=== PATIENT | male | born 1965 | race Caucasian/White ===

== ENCOUNTER 2024-04-28 13:58 | Emergency (ER) | payer OTHER, SELFPAY ==
[2024-04-28] VITALS (10 sets, daily range): BP systolic 128–147; BP diastolic 69–83; PULSE 62–94; RESP 14–23; TEMP 36.3–37.6; O2SAT 92–98; BMI 19.9
[2024-04-28 14:50] LABS: Absolute Neutrophil Count 21.3 X10^3/uL (2.0-7.7); Basophil# 0.08 X10^3/uL; Basophil% 0.3 % (0-1); Eosinophil# 0.01 X10^3/uL; Hematocrit 28.3 % (40-54); Hemoglobin 9.5 g/dL (13.0-16.5); Lymphocyte % 3.4 % (19-41); Mean Corp Hgb Conc 33.6 g/dL (32-36); Mean Corpuscular Hgb 29.7 pg (27.0-32.0); Mean Corpuscular Volume 88.4 fL (80-94); Mean Platelet Vol. 8.7 fl (6.2-12.0); Monocyte# 1.27 X10^3/uL; Monocyte% 5.3 % (0-10); NRBC Flagged by Analyzer 0 % (0-5); Neutrophil # 21.32 X10^3/uL (2.7-7.7); Neutrophil % 89.6 % (47-70); POSITIVE DIFFERENTIAL YES; Platelet Count 315 K/mm3 (150-450); RBC Distribution Width SD 45.8 fl (35.1-43.9); White Blood Count 23.8 K/mm3 (4.4-11.0)
[2024-04-28 15:09] LABS: ALB/GLOB Ratio 0.5 RATIO (0.9-2.4); AST(SGOT) 119 U/L (15-37); Alanine Aminotransfer ALT/SGPT 81 U/L (16-61); Albumin, Serum 2.1 g/dL (3.2-5.0); Alkaline Phosphatase 121 U/L (45-117); Anion Gap 6 (5-15); BUN 13 mg/dL (7-18); BUN/Creat Ratio 18.5 RATIO (10-20); Calcium,Total 8.1 mg/dL (8.5-10.1); Chloride 97 mmol/L (98-107); EST Glomerular Filtration Rate 123 mL/min (>60); Est Glom Filt Rate - Afr Amer 149 mL/min (>60); Estimated Creatinine Clearance 96.81 ml/min; Globulin 4.1 g/dL (2.2-4.2); Glucose 119 mg/dL (74-106); Potassium 2.5 mmol/L (3.5-5.1); Protein, Total 6.2 g/dL (6.4-8.2); Sodium Level 137 mmol/L (136-145)
--- NOTE | 2024-04-28 15:29 | CT_ITS ---
STUDY: CT ABDOMEN AND PELVIS WITH CONTRAST REASON FOR EXAM: Male, 58 years old. Recent colon diagnosis. One month post colostomy in [place]. The incision the haste with purulent drainage. Elevated white cell count. RADIATION DOSAGE (If Supplied By Facility): CTDIvol = ( 9.71 ) mGy, DLP = ( 517.96 ) mGycm TECHNIQUE: Transaxial images were obtained from the dome of the diaphragm to the symphysis pubis without oral contrast. IV 100mL Isovue-300 was administered. Sagittal and coronal images were reconstructed. Individualized dose optimization techniques were used for this CT. COMPARISON: None. FINDINGS: Increased markings at the lung bases suggestive of bibasilar atelectasis. Tiny left pleural effusion. Coronary artery calcification. Normal liver. The gallbladder is contracted. Small amount of pericholecystic fluid. Normal spleen. Normal pancreas. Normal bilateral adrenal glands. Moderate degree of bilateral hydronephrosis. Normal visualized stomach. Normal small intestine. There is a 7.9 cm x 4.9 cm fluid collection with no fluid level in the right infrahepatic region. This most likely represents a postoperative abscess. The colostomy is seen in the left anterior abdominal wall. Anastomosis is seen in the rectosigmoid junction. Normal abdominal aorta. Normal inferior vena cava. Normal retroperitoneum. There is a distended urinary bladder. Fluid is seen in the prerectal space. There is evidence of thickening of the anterior abdominal wall at the level of the surgical site with the extension into the overlying skin in the lower abdomen and pelvic wall. This may represent a phlegmon. Normal osseous structures. CT/Abdomen/Pelvis W IV Cont ONLY IMPRESSION: Findings suggestive of abscess in the right subhepatic space with the fluid in the pelvis. Colostomy seen in the left anterior abdominal wall. Electronically Signed: Jostin Rider MD at 16:03 EDT ,
[2024-04-28 15:44] LABS: Differential Comment SCANNED; Differential Indicated SCAN CRITERIA MET
--- NOTE | 2024-04-28 15:46 | ED.VIS.GI ---
HPI HPI - GI History of Present Illness Chief Complaint: Abd Pain Informant: patient and spouse/S.O. Abdominal Pain/Flank Pain Onset: Days Context: Gradual Onset Quality: Aching Location: See Diagram (Around his surgical site and colostomy.) Current Severity: Mild Maximum Severity: Mild Worsened by: Nothing Relieved by: Nothing Diarrhea/Melena/Hematochezia GI Symptom: Negative for Diarrhea Associated Symptoms Associated Symptoms: Negative for Dysuria, Frequency, Hematuria or Urgency Narrative Narrative: 58-year-old male diagnosed with colon cancer at [facility]. He was referred to [facility] he and the family chose to have surgery done at [facility] in [place]. He had that done on March 30. He was hospitalized for 4 weeks after the surgery and had some type of chemo injection. Patient just got home this weekend and has been having lower abdominal pain and a fever. Today the incision opened up and purulent material came out. Prior similar symptoms: No Recent Illness/Hospitalization: Yes PFSH PFS Medical History Colon cancer Allergy/AdvReac Type Severity Reaction Status Date / Time No Known Allergies Allergy Verified 04/28/24 14:42 Surgical History History of creation of ostomy Social History Smoking Status: Never smoker ROS ROS ED ROS Narrative Fever. Abdominal pain. Review of Systems ROS Unobtainable: Denies due to encephalopathy Constitutional Constitutional ED: Reports fever(s); Denies chills ENT ENT ED: Denies ear pain Cardiovascular Cardiovascular: Denies chest pain Respiratory/Chest Respiratory/Chest: Denies cough or dyspnea Gastrointestinal Gastrointestinal: Reports abdominal pain; Denies constipation Genitourinary Genitourinary ED: Denies dysuria or hematuria Musculoskeletal Musculoskeletal: Denies arthralgias or back pain Integumentary Denies Abrasions Neurologic Neurologic: Denies headache(s) Psychiatric Psychiatric: Denies anxiety or depression Endocrine Endocrinology: Denies polydipsia or polyphagia Hematologic/Lymphatic Hematologic/Lymphatic: Denies easy bleeding or easy bruising Allergic/Immunologic Allergic/Immunologic ED: Denies mouth swelling or tongue swelling EXAM Physical Exam Narrative Exam Narrative: Well-appearing 58-year-old [facility] male vital signs are stable afebrile. H EENT exam unremarkable. Neck nontender. Lungs clear. Heart regular rhythm rate about 70 no murmur. Chest wall and ribs nontender. Abdomen soft nondistended. Colostomy bag with stool left lower quadrant. He is a periumbilical incision that has opened there is very foul-smelling drainage from that. And most likely there is seroma or abscess under the skin. It is tender. Patient is moving all 4 extremities. Nontender no edema neurologically is awake and alert. Answer questions following commands. Const Vital Signs: 04/28/24 13:59 04/28/24 14:01 04/28/24 15:01 Temperature 99.6 F H 99.4 F H 98.7 F Temperature Source Temporal Oral Oral Pulse Rate 72 70 71 Respiratory Rate 18 16 18 Blood Pressure 134/69 H 133/75 H 133/77 H Blood Pressure Mean 90 94 95 Pulse Ox 95 92 92 Oxygen Delivery Method Room Air Room Air Room Air 04/28/24 16:00 Temperature 98.6 F Temperature Source Temporal Pulse Rate 94 Respiratory Rate 18 Blood Pressure 130/78 H Blood Pressure Mean 95 Pulse Ox 94 Oxygen Delivery Method Room Air Positive well nourished and well developed; Negative for obese, cachectic, contractures or unkempt General Appearance ED: well developed and NAD; Negative for unkempt, cachectic, contractures or pallor Nutritional Appearance: Negative for cachectic or obese HEENT Reports moist mucous membranes; Denies dry mucous membranes normocephalic and atraumatic; Negative for trauma or tenderness Mouth ED: No dry mucous membranes Mouth: No dry mucous membranes Eyes PERRL and EOMs intact bilaterally General Eye ED: Negative for pale conjunctiva or scleral icterus Neck no lymphadenopathy, supple and no JVD General: Negative for tenderness Carotids: Negative for other Lymph Lymphatic: Negative for other Resp normal respiratory effort and clear to auscultation bilaterally Effort and Inspection: Negative for respiratory distress Auscultation: Negative for rales, rhonchi or wheezes Cardio regular rate, regular rhythm, S1 normal heart sound, S2 normal heart sound and no murmurs Rate: Negative for bradycardia or tachycardic Rhythm: Negative for abnormal rhythm GI non-distended and no masses; Negative for non-tender GI Narrative: Left lower quadrant colostomy. Stool in his colostomy bag. Nondistended abdomen. Drainage from his periumbilical wound foul-smelling. Suspect subcu abscess and/or seroma. Auscultation: normoactive bowel sounds Palpation: soft and tender; Negative for guarding or rebound tenderness present Back/Spine no CVA tenderness General Back: Negative for CVA tenderness Cervical Spine: Negative for cervical spine tenderness Thoracic Spine / Upper Back: Negative for thoracic spinal tenderness Lumbar Spine / Lower Back: Negative for lumbar spinal tenderness Coccyx: Negative for other Extremity full ROM General Extremety ED: Negative for edema or tenderness General Extremity: Negative for edema Neuro CN's II-XII intact bilaterally and moves all extremities Sensorium / Orientation: alert, oriented to person, oriented to place and oriented to time; Negative for orientation impaired or confused Motor Exam: strength 5/5 throughout Psych mental status grossly normal and thought process normal Appearance: Negative for unkempt Attitude: No agitated Mood & Affect: Negative for depressed, anxious or tearful Skin no wounds General Skin Exam: Negative for jaundice or pallor Lesions: no lesions Rashes: no rashes Trauma: Negative for abrasion Nails: Negative for discolored MDM MDM MDM Narrative Medical decision making narrative: 58-year-old gentleman history of colon cancer had a partial colon resection done in a hospital in [place] on March 30 today had dehiscence of the wound with foul-smelling drainage abdominal pain and fever the last couple days. I suspect a intra-abdominal abscess. I have already spoken to our general surgeon here Dr. Hari Paredes. He thinks the patient be best served at a larger facility with other general surgical subspecialist. I will call local hospitals for transfer. Patient be started on IV Zosyn. [facility] nor is [facility]. I have spoken to [facility]. They are reviewing the patient's data and his CAT scan and will get back to me. Patient is on IV antibiotics Zosyn started. Potassium through the IV. And a Cisneros catheter has been placed for his urinary retention. He and his know the current plan and we are awaiting acceptance if possible. History & Record Review Discussion w/independent historian: Patient Additional record(s) reviewed:: Prior inpatient record, Prior outpatient record, Prior ED visit and Prior labs Lab Data Attestation: I reviewed the patient's lab results. Lab results narrative: CBC shows a white count 23,800. H&H 9.5 and 28. Platelets 315. Electrolytes show a potassium of 2.5. Gap is 6. Normal BUN 13 creatinine 0.7. Liver enzymes are elevated. UA has 10-25 red cells. 25-50 white cells and 2+ bacteria. Labs: Laboratory Results - last 24 hr 04/28/24 04/28/24 14:40 15:51 WBC 23.8 H RBC 3.20 L Hgb 9.5 L Hct 28.3 L MCV 88.4 MCH 29.7 MCHC 33.6 RDW Std Deviation 45.8 H RDW Coeff of Rosalee 14.0 Plt Count 315 MPV 8.7 Immature Gran % (Auto) 1.400 H Neut % (Auto) 89.6 H Lymph % (Auto) 3.4 L [place] % (Auto) 5.3 Eos % (Auto) 0.0 Baso % (Auto) 0.3 Absolute Neuts (auto) 21.3 H Absolute Lymphs (auto) 0.80 L Nucleated RBC % 0 Differential Comment SCANNED Sodium 137 Potassium 2.5 L* Chloride 97 L Carbon Dioxide 34.0 H Anion Gap 6 BUN 13 Creatinine 0.70 Estim Creat Clear Calc 96.81 Est GFR (MDRD) Af Amer 149 Est GFR (MDRD) Non-Af 123 BUN/Creatinine Ratio 18.5 Glucose 119 H Calcium 8.1 L Total Bilirubin 0.40 AST 119 H ALT 81 H Alkaline Phosphatase 121 H Total Protein 6.2 L Albumin 2.1 L Globulin 4.1 Albumin/Globulin Ratio 0.5 L Urine Color Yellow Urine Clarity Cloudy Urine pH 6.0 Ur Specific [place] 1.010 Urine Protein 30 H Urine Glucose (UA) Normal Urine Ketones Negative Urine Occult Blood 250 H Urine Nitrite Negative Urine Bilirubin Negative Urine Urobilinogen 1 H Ur Leukocyte Esterase 500 H Urine RBC 10-25 SEEN Urine WBC 25-50 SEEN Ur Squamous Epith Cells 0-5 SEEN Urine Bacteria 2+ Urine Mucus 0 SEEN Radiography Diagnostic Testing: Clinical Impression(s) from Imaging Studies Abdomen/Pelvis CT 04/28/24 15:29 IMPRESSION: Findings suggestive of abscess in the right subhepatic space with the fluid in the pelvis. Colostomy seen in the left anterior abdominal wall. Electronically Signed: Jostin Rider MD at 16:03 EDT , Critical Care Time Critical Care Time: Yes Critical care time (excluding procedures): 30-74 minutes, Including time spent:, Discussing w/Patient &/or Family/Teaching Aide, Discussing w/Consultants, Arranging Admission or Transfer, Performing Direct Patient Care at Bedside and - (Critical care time 35 minutes.) Discharge Plan Triage Chief Complaint: Abd Pain ED Provider: Sher Arndt Dx/Rx/DC Orders Clinical Impression: Abscess, intra-abdominal, postoperative, History of colon cancer, History of partial colectomy, Elevated liver enzymes, Acute urinary retention Primary Care Provider: Care Physician,No Primary Referrals: Care Physician,No Primary [Primary Care Provider] - Print Language: Ukrainian Disposition Disposition: Acute Care Hospital
[2024-04-28 15:55] LABS: Mucous, Urine 0 SEEN /hpf (<or=2+)
[2024-04-28] MEDS: Piperacil/Tazobactam 4.5 GM in 0.9% Normal Saline (100mL MB+) 100 ML IV (15:57)
[2024-04-28 16:03] LABS: Color, Urine Yellow (Yellow); Glucose, Dipstick Normal (Normal); Ketone-Dipstick Negative (Negative); Leukocyte Esterase-Dipstick 500 /ul (Negative); Nitrite-Dipstick Negative (Negative); Occult Blood-Urine 250 /ul (Negative); Protein-Dipstick 30 mg/dl (Negative); Urine Bilirubin Dipstick Negative (Negative); Urine Clarity Cloudy (Clear); Urine Urobilinogen 1 mg/dl (Normal)
[2024-04-28 16:18] LABS: Bacteria 2+ /hpf (None Seen); Red Blood Cells-Urine 10-25 SEEN /hpf (0-5); Squamous Epithelial Cells - UA 0-5 SEEN /hpf (0-5); White Blood Cells 25-50 SEEN /hpf (0-5)
--- NOTE | 2024-04-28 16:26 | ED.RN ---
CALL TO [facility] TO TRANSFER. PER [facility] VERY LONG WAIT TIME
[2024-04-28] MEDS: Potassium Chloride 10mEq/100mL 10 MEQ/100 ML IV.SOLN. 100 MEQ IV BOLUS ×2 (16:27→17:34)
--- NOTE | 2024-04-28 21:30 | ED.RN ---
PATIENTS S.O[facility] DOES NOT ALLOW OTHERS TO RIDE WITH TRANSPORT. MEEK UPSET AND ASKS WHAT SHE IS SUPPOSED TO DO? RN STATES SHE WILL NEED TO FIND A RIDE FOR SOMEONE TO TAKE HER TO [facility] TONIGHT OR TOMORROW. RN INFORMED PATIENT AND MEEK 3 HOUR ETA FOR HIS TRANSPORT TO [facility]. RN REQUESTING SIGNATURE FROM PATIENT FOR CONSENT TO TRANSFER TO [facility]. PT STATES HE DOES NOT WANT TO SIGN AND MEEK CAN SIGN FOR HIM. MEEK STATES I DONT KNOW IF I WANT TO SIGN IF I CANT RIDE ALONG. MEEK WILLINGLY SIGNS CONSENT. RN ASKS IF THERE IS FURTHER QUESTIONS. DENIES AT THIS TIME.
--- NOTE | 2024-04-28 21:46 | ED.RN ---
PATIENTS S.O. OUT AT NURSES STATION STATING HER SON IS GOING TO COME AND DIRECTOR SHOPPER MARKETING HER AND PATIENT. RN STATES THIS IS NOT A GOOD IDEA. YOUR IS VERY SICK AND NEEDS MEDICAL MONITORING DURING TRANSPORT. S.O. STATES WELL, IF I CANT RIDE WITH HIM THEN WHAT AM I SUPPOSED TO DO. S.O WALKED AWAY BEFORE THIS RN COULD ANSWER. DR. DIAZ AND LAUREN, CHARGE NURSE NOTIFIED.
== END 2024-04-28 22:19 | disposition short-term general hospital (02) ==
LOC: ED 16:03
PROVIDERS: Emergency Provider Emergency Medicine; Visit Provider Emergency Medicine
DX: T81.43XA Infection following a procedure, organ and space surgical site, initial encounter (principal); Z93.3 Colostomy status; C18.9 Malignant neoplasm of colon, unspecified; K65.1 Peritoneal abscess; R74.8 Abnormal levels of other serum enzymes; R33.9 Retention of urine, unspecified; R10.30 Lower abdominal pain, unspecified; Z90.49 Acquired absence of other specified parts of digestive tract
CPT/HCPCS: 51702; 74177; 80053; 81001; 85025; 96361; 96365; 96366; 99285; J7030; Q9967; A4216

== ENCOUNTER → 2024-06-29 | Outpatient (CLI) | payer SELFPAY, OTHER ==
--- NOTE | 2024-06-29 13:56 | CT_ITS ---
STUDY: CT CHEST, ABDOMEN T PELVIS WITH CONTRAST REASON FOR EXAM: Male, 58 years old. staging for rectal cancer. Partial colectomy and colostomy. RADIATION DOSAGE (If Supplied By Facility): CTDIvol = ( 12.29 ) mGy, DLP = ( 792.39 ) mGycm TECHNIQUE: Transaxial imaging was performed following intravenous administration of IV 100mL Isovue-370. Individualized dose optimization techniques were used for this CT. COMPARISON: Comparison is made with prior study dated April 28, 2024. FINDINGS: CHEST There is a new 1.6 cm x 0.8 cm pleural-based nodular density in the anterior medial aspect of the left upper lobe as seen on axial image #72 and coronal image #79. A linear component is seen. This may represent scarring although a pulmonary nodule cannot be excluded. Correlation with a PET scan is recommended. There is no demonstrated pleural abnormality. There are calcifications of the coronary arteries. Normal mediastinum. Normal hilar regions. Normal unenhanced pulmonary arteries. Normal aorta arch and descending thoracic aorta. Normal osseous structures. ABDOMEN Normal liver. The gallbladder is contracted. Normal spleen. Normal pancreas. Normal bilateral adrenal glands. Mild degree of bilateral hydronephrosis. Normal visualized stomach. Normal small intestine. A colostomy seen in the left midabdomen. Since prior study, there is been progression of the deep presacral soft tissue. There is partial fluid retention within the rectal remnant. This is unchanged. There is non-visualization of the appendix. Normal abdominal aorta. Normal inferior vena cava. Normal retroperitoneum. Normal abdominal wall. Normal osseous structures. PELVIS The urinary bladder is distended. Diffuse bladder wall thickening. There is no pelvic fluid. There is no pelvic lymphadenopathy or mass lesion. Normal visualized pelvic arteries. CT/CT Chest, Abd, Pel w/Contrast IMPRESSION: Status post colostomy in the left anterior abdominal wall. Mild degree of bilateral hydronephrosis. Distention of the urinary bladder with diffuse bladder wall thickening. Progressive increase in the presacral soft tissue density. Moderate amount of fecal material is seen in the colon. There is a new 1.6 cm x 0.87 pleural-based nodule in the anterior medial aspect of the left upper lobe as described. Correlation with a PET scan is recommended. Electronically Signed: Jostin Rider MD at 14:13 EDT ,
== END | disposition home or self-care (01) ==
LOC: CT 13:52
PROVIDERS: Referring Provider Internal Medicine Medical Oncology; Visit Provider Internal Medicine Medical Oncology
DX: C20 Malignant neoplasm of rectum (principal)
CPT/HCPCS: 71260; 74177; Q9967

== ENCOUNTER 2024-07-15 08:52 | Day surgery (SDC) | payer SELFPAY, OTHER ==
[2024-07-15] VITALS (8 sets, daily range): BP systolic 93–109; BP diastolic 58–79; PULSE 65–81; RESP 16–18; TEMP 36.1–37.1; O2SAT 95–98; BMI 18.2
--- NOTE | 2024-07-15 09:20 | PCM.PRE.AN2 ---
ASA Classification* ASA Classification ASA Classification: 3 Assessment & Plan Anesthesia* Anesthesia Assessment Anesthesia Assessment: Discussed sedation and/or anesthesia options, risks, benefits, and alternatives with patient/parents/legal guardian/POA. Questions invited. The patient/parents/legal guardian/POA seems to understand and agrees to proceed with anesthesia plan. Reviewed the physical assessment, medical history, allergy history and patient home medications list prior to surgery/procedure/anesthetic and documented any changes. Performed airway and anesthesia risk assessments. Anesthesia Type Anesthesia Type: MAC (see written pre anesthesia record for full assessment) Anesthesia Focused Assessment* Airway Assessment Mouth opens: >3 cm Mallampati Score: II Focused Labs Anesthesia Preop lab: CBC WBC 16.9 K/mm3 (4.4-11.0) H 07/06/24 08:30 RBC 4.08 M/mm3 (4.6-6.2) L 07/06/24 08:30 Hgb 12.1 g/dL (13.0-16.5) L 07/06/24 08:30 Hct 37.4 % (40-54) L 07/06/24 08:30 Plt Count 578 K/mm3 (150-450) H 07/06/24 08:30 CHEMISTRY Potassium 3.8 mmol/L (3.5-5.1) 07/06/24 08:30 Sodium 136 mmol/L (136-145) 07/06/24 08:30 BUN 27 mg/dL (7-18) H 07/06/24 08:30 Creatinine 1.09 mg/dL (0.70-1.30) 07/06/24 08:30 Glucose 89 mg/dL (74-106) 07/06/24 08:30 COAG Pre-Assessment Diagnosis/Proposed Procedure Planned Operative Procedure(s): LEFT VACULAR PORT ACCESS Anesthesia History 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 When Was Last Pacemaker Check QUESTION #4 FULL TEXT: You/Your Family Experience fever (hyperthermia) with Anesthesia Last Oral Intake Last Oral intake: Last Oral Intake NPO since Meds taken in AM with sips of water? Meds patient instructed to take am of surgery PONV PONV - president ceo & founder: PONV - president ceo & founder Female No 07/14/24 13:14 HX of Motion Sickness No 07/14/24 13:14 HX of N/V After Surgery No 07/14/24 13:14 Non-Smoker Yes 07/14/24 13:14 Duration of Surgery greater No 07/14/24 13:14 than 60 minutes Number of Risk Factors 1 07/14/24 13:14 PONV Score Low Risk 07/14/24 13:14 Height & Weight Height & Weight: Anesthesia: Height & Weight Height 5 ft 8 in 07/14/24 09:30 Respiratory Assessment Respiratory Assessment - president ceo & founder: Respiratory Tract Infection Hx - president ceo & founder Hx Respiratory Tract Infection No 07/14/24 13:14 STOP Sleep Apnea STOP Sleep Apnea - president ceo & founder: STOP Sleep Apnea - president ceo & founder Hx Hypertension No 07/14/24 13:14 Hx Sleep Apnea No 07/14/24 13:14 CPAP BIPAP Do you snore loudly (louder No 07/14/24 13:14 than talking or can be heard Do you often feel tired/ No 07/14/24 13:14 fatigued/ sleepy during daytime? Has anyone observed you stop No 07/14/24 13:14 breathing during sleep? STOP Results Negative 07/14/24 13:14 QUESTION #5 FULL TEXT : Do you snore loudly (louder than talking or can be heard through closed doors)? 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 Specify any problems Hx of Preganancy in last 3 N/A 07/14/24 13:14 Months Nurse Filling Out Transfusion NBUCHER 07/14/24 13:14 & Questions: Date: 07/14/24 07/14/24 13:14 Time: 13:16 07/14/24 13:14 Patient unable to answer at this time (ie. confused, unrespo /Reproduction History /Reproductive History - president ceo & founder: /Reproductive Hx- president ceo & founder Hx Now No 07/14/24 13:14 Gestational Age (in weeks): EDC: Hx Hx Para Hx Section SAB No 07/14/24 13:14 Active Medications Active Medications: Current Medications Generic Name Dose Route Start Last Admin Trade Name Freq PRN Reason Stop Dose Admin Cefazolin Sodium 2 gm/ Sodium 110 mls @ 150 mls/hr 07/15/24 10:30 Chloride IV 07/15/24 11:13 PREOP ONE Lactated Ringer's 1,000 mls @ 15 mls/hr 07/15/24 09:00 IV .Q48H FREDA PFSH Medical History Wears glasses Cancer DVT (deep venous thrombosis) Syncope Non-smoker Cataract (lens) fragments in eye following cataract surgery, bilateral Mandeep blood in stool Chronic diarrhea of unknown origin Change in bowel habit Colon cancer Home Medications ?Medication ?Instructions ?Recorded ?Last Taken ?Type aspirin 81 mg tablet,delayed 81 mg PO DAILY 06/08/24 Unknown History release ascorbic acid (vitamin C) 250 mg 1 g PO DAILY 06/09/24 Unknown History tablet Allergy/AdvReac Type Severity Reaction Status Date / Time No Known Allergies Allergy Verified 07/14/24 13:14 Family History Son Cancer Surgical History H/O hernia repair S/P colonoscopy H/O colectomy History of creation of ostomy Social History household members: spouse Smoking Status: Never smoker alcohol intake: never substance use type: does not use Review of Systems (Anesthesia) ROS Narrative System reviewed and no additional complaints, except as documented.
[2024-07-15] MEDS: Lactated Ringers 1,000 ML 15 ML IV (09:27)
--- NOTE | 2024-07-15 10:16 | PCM.HP.BLA ---
History and Physical Date of Admission: 07/15/24 Patient is a 58-year-old male with a history of rectal cancer. Oncology is recommending chemotherapy. He was seen through the office recently to set up a Mediport placement. He presents today to have this placed. Assessment & Plan Assessment/Plan (1) Local recurrence of rectal cancer : PLAN: Patient is a 58-year-old male who presents today for elective Mediport placement. We have discussed the details of the planned procedure including the risks benefits and alternatives. He wishes to proceed.
[2024-07-15] MEDS: Cefazolin 2 GM in 0.9% Normal Saline (100mL Bag) 100 ML IV (10:30)
[2024-07-15] MEDS: Lidocaine 1% /Epi 1:100 (50ml) 50 ML VIAL (10:46)
[2024-07-15] MEDS: Bupivacaine Mpf 0.5% 30 ML VIAL (10:46)
--- NOTE | 2024-07-15 11:18 | PCM.POST.ANE ---
Anesthesia: Postop Eval I Current Vital Signs Temperature: 97 F Pulse Rate: 77 Blood Pressure: 106/66 Respiratory Rate: 16 Pulse Ox: 98 Oxygen Delivery Method: Room Air Assessment Airway patent: Yes Spontaneous unlabored respirations: Yes Mental status: Awake and Calm nausea: No Vomiting: No Anesthesia Complication: No Fluid Hydration Crystalloid volume administer (ml): 600 Total IV fluid infused: 600 Progress Note Anesthesia document: Postop Eval 1 completed: Yes
--- NOTE | 2024-07-15 11:19 | DCINST_ITS ---
Discharge Instructions Diet Discharge Diet: Light diet - advance as tolerated Activity Discharge Activity: Return to Normal Activity and May Shower Dressing / Incision Call your doctor if your incision/area has: Continuous Slow Oozing, Sudden Increased Bleeding, Increased Pain/ Swelling, Increased Redness, Foul Smelling Discharge and Swelling at the incision site Call your doctor if you observe: Fever of 101 or Higher and Change in Color Cleanse incision/area with: Soap & Water Follow Up Care Test Results: Test results from this visit will be discussed in further detail at your follow- up appointment, if applicable. Discharge Plan Admission Primary Reason for Your Visit: port placement Attending Provider: Kunal Chandler Primary Care Provider: Morelia Calvillo NP Instructions Print Language: Armenian Discharge Orders/Prescriptions Prescriptions: New oxycodone-acetaminophen [Percocet] 5-325 mg tablet 1 tab PO Q8H PRN (Reason: pain) 3 Days Qty: 4 0RF Continued aspirin 81 mg tablet,delayed release (DR/EC) 81 mg PO DAILY ascorbic acid (vitamin C) 250 mg tablet 1 g PO DAILY Referrals / Follow Up: Morelia Calvillo PIG CONVEYOR OPERATOR, PIG CONVEYOR OPERATOR-C [Primary Care Provider] - Disposition Disposition (needs filled in before D/C Order can be placed): Home, Self Care
--- NOTE | 2024-07-15 11:23 | OP.PCM_ITS ---
Problems Associated Problem List Diagnoses (1) Local recurrence of rectal cancer : Report of Operation Date of Procedure: 07/15/24 Pre-Operative Diagnosis: Rectal cancer Post-Operative Diagnosis: Rectal cancer Surgery/Procedure Performed:: Left subclavian Mediport placement with C arm Surgeon: Kunal Chandler Type of Anesthesia: MAC Estimated Blood Loss (mL): 5 cc Description of Procedure: The patient is a 58-year-old male who was recently seen through the office with recurrent rectal cancer. He is treating oncologist is recommending chemotherapy. He was referred to me to discuss Mediport placement for vascular access. In the office, we discussed the details of the planned procedure as well as the risks, benefits, and alternatives. He wished to proceed. Surgery was scheduled in a timely manner. The patient was brought to the operating room today following informed consent. Preoperative antibiotics were given. A timeout was performed. He was placed supine on the operative table with arms outstretched on arm boards. MAC anesthesia was induced. An axillary roll was placed between the shoulder blades and his arms were comfortably tucked at his sides. The left upper chest and neck regions were prepped and draped in the usual sterile manner. Local anesthetic was then infiltrated into the left periclavicular area. Then using the supplied needle and syringe, I was able to gain access to the left subclavian vein on the first pass. The blood return was a dark red, nonpulsatile, venous appearing blood. The guidewire was then threaded through the needle and was advanced. The guidewire was then secured to the drapes using a curved hemostat. X-ray C-arm was then brought into confirm appropriate positioning of the guidewire. This was clearly within the venous side of the circulation. There was no ectopy. Next, a subcutaneous pocket was created in the left upper chest. This was performed by injecting local anesthetic and then using a #15 blade, a 3 cm skin incision was made. Bovie electrocautery was then used to dissect down through the subcutaneous tissue down to the level of the pectoralis muscle. Patient had very little subcutaneous fat. A subcutaneous pocket was then created to accommodate the port. Next a small skin incision was made at the entry point of the guidewire. The Mediport tubing was then attached to the tunneler and was then inserted into the bigger incision and brought out through the smaller incision. The tubing was then trimmed to about 20 to roger timeters in length. This was attached to the Mediport hub. The port that we used was an 8 [place] PowerPort MRI compatible port. The port was attached to the tubing. The hub was then affixed to the underlying chest wall using Prolene suture. This laid nicely. Next, the dilator and tear-away sheath were then threaded over the guidewire. There was advanced to the hub. The guidewire and dilator were then removed, thus leaving the tear-away sheath in place. The tubing was then threaded down the sheath and the sheath was then extracted, leaving the tubing in place. The port was tested by flushing with injectable saline. It gustabo and flushed very easily with prompt blood return. C-arm was again brought in to confirm appropriate positioning. The port seems to be in appropriate location. The incision was then closed using 3-0 Vicryl and then 5- 0 Vicryl. Skin glue was applied as dressing. The port was accessed. It gustabo and flushed easily. At the end it was flushed with heparin. Skin glue was applied as dressing along with an OpSite. He was awake from anesthesia and taken the PACU in good condition at end Grafts/Implants Used: PowerPort MRI compatible port Complications None Procedures Add on/Second Study CF Procedures 9xxxx Addon/2nd Proc: Other Procedure See Report (65527 -- port insertion)
--- NOTE | 2024-07-15 11:25 | RAD_ITS ---
STUDY: X-RAY CHEST REASON FOR EXAM: Male, 58 years old. Port placement TECHNIQUE: Single AP portable view of the chest. COMPARISON: None. FINDINGS: A left-sided Port-A-Cath has been placed with the tip at the junction of the superior vena cava and right atrium. EKG electrodes are seen. The lungs are clear and expanded. There is no demonstrated pleural abnormality. Normal size heart. Normal mediastinum and tiago. Normal visualized pulmonary arteries. Normal visualized aortic arch and descending thoracic aorta. There are degenerative changes of the visualized thoracic spine. Normal visualized ribs, clavicles, and shoulders. There is no demonstrated abnormality of the visualized soft tissue structures of the upper abdomen. RAD/CXR for Line Placement IMPRESSION: The tip of the left Port-A-Cath is at the junction of the superior vena cava and right atrium. Electronically Signed: Jostin Rider MD at 12:00 EDT ,
--- NOTE | 2024-07-15 14:31 | POSTOPAN2_ITS ---
Anesthesia Postop Eval I Sum Postop Eval Completion status Anesthesia document: Postop Eval 1 completed: Yes Anesthesia Postop Eval I Summary Anesthesia Postop Eval I Summary: Anesthesia Postop Eval I: Assessment Summary Airway patent Yes 07/15/24 11:19 [email or web address] Spontaneous unlabored Yes 07/15/24 11:19 [email or web address] respirations Mental status Awake,Calm 07/15/24 11:19 [email or web address] nausea No 07/15/24 11:19 [email or web address] Vomiting No 07/15/24 11:19 [email or web address] Anesthesia Postop Eval I: Fluid Summary Crystalloid volume administer 600 07/15/24 11:19 [email or web address] (ml) Colloids volume administered ( ml) Blood Product volume administered (ml) Total IV fluid infused 600 07/15/24 11:19 [email or web address] Anesthesia Postop Eval I: Summary Notes Anesthesia Complication No 07/15/24 11:19 [email or web address] Anesthesia Complication Comment: Post-operative progress note Anesthesia: Postop Eval II Evaluation Mental status: Awake and Calm Pain Level: 1 nausea: No Vomiting: No Complications Anesthesia Complication: No
--- NOTE | 2024-07-15 14:31 | PCM.POSTANE2 ---
Anesthesia Postop Eval I Sum Postop Eval Completion status Anesthesia document: Postop Eval 1 completed: Yes Anesthesia Postop Eval I Summary Anesthesia Postop Eval I Summary: Anesthesia Postop Eval I: Assessment Summary Airway patent Yes 07/15/24 11:19 [email or web address] Spontaneous unlabored Yes 07/15/24 11:19 [email or web address] [email or web address] respirations Mental status Awake,Calm 07/15/24 11:19 [email or web address] nausea No 07/15/24 11:19 [email or web address] Vomiting No 07/15/24 11:19 [email or web address] Anesthesia Postop Eval I: Fluid Summary Crystalloid volume administer 600 07/15/24 11:19 [email or web address] (ml) Colloids volume administered ( ml) Blood Product volume administered (ml) Total IV fluid infused 600 07/15/24 11:19 [email or web address] Anesthesia Postop Eval I: Summary Notes Anesthesia Complication No 07/15/24 11:19 [email or web address] Anesthesia Complication Comment: Post-operative progress note Anesthesia: Postop Eval II Evaluation Mental status: Awake and Calm Pain Level: 1 nausea: No Vomiting: No Complications Anesthesia Complication: No
== END 2024-07-15 12:51 | disposition home or self-care (01) ==
LOC: SDC 08:55 → AC 08:57
PROVIDERS: PCP Nurse Practitioner Family; Referring Provider Surgery; Visit Provider Surgery
PROC: (CPT 36561; principal; 2024-07-15 10:15)
DX: Z45.2 Encounter for adjustment and management of vascular access device (principal); C20 Malignant neoplasm of rectum; Z79.82 Long term (current) use of aspirin
CPT/HCPCS: 36561; 00532; 71045; 77001; J7120; C1788; J2405

== ENCOUNTER 2024-10-11 10:30 | Emergency (ER) | payer OTHER, SELFPAY ==
[2024-10-11] VITALS (7 sets, daily range): BP systolic 112–133; BP diastolic 72–90; PULSE 73–88; RESP 14–18; TEMP 36.6–37; O2SAT 97–100; BMI 16.7
--- NOTE | 2024-10-11 10:56 | EX.ED.DYSGE1 ---
HPI History of Present Illness Chief Complaint: Abn Labs Informant: patient Onset/Context/Timing Onset: Days Context: Gradual Onset Timing: Continuous Current Severity: Mild Maximum Severity: Mild Narrative Narrative: 58-year-old male history of rectal cancer just finished chemotherapy in August but there is through another course. He had prior surgery with a partial colectomy in [place] for his colon cancer. Send today by his oncologist due to acute on chronic worsening renal insufficiency. Want him admitted for IV fluids. Patient denies any fever. States he did have mild nausea and vomiting this morning but he has not had significant nausea and vomiting or diarrhea lately. He has had decreased oral intake has not felt well. Prior similar symptoms: No Recent Illness/Hospitalization: No PFSH PFSH Medical History Prerenal azotemia Constipation Hypoalbuminemia Wears glasses Cancer DVT (deep venous thrombosis) Syncope Non-smoker Cataract (lens) fragments in eye following cataract surgery, bilateral Mandeep blood in stool Chronic diarrhea of unknown origin Change in bowel habit Colon cancer Home Medications ?Medication ?Instructions ?Recorded ?Last Taken ?Type aspirin 81 mg tablet,delayed 81 mg PO DAILY 06/08/24 10/10/24 History release ascorbic acid (vitamin C) 250 mg 1 g PO DAILY 06/09/24 09/27/24 History tablet ferrous gluconate 324 mg (38 mg 324 mg PO QDAY 90 days #90 tabs 09/13/24 Unknown Rx iron) tablet sennosides 8.6 mg capsule (senna) 8.6 mg PO QHS PRN constipation 09/24/24 10/10/24 History Allergy/AdvReac Type Severity Reaction Status Date / Time No Known Allergies Allergy Verified 10/11/24 10:31 Family History Son Cancer Surgical History H/O hernia repair S/P colonoscopy H/O colectomy History of creation of ostomy Social History household members: spouse Smoking Status: Never smoker alcohol intake: never substance use type: does not use ROS ROS ED ROS Narrative Nausea vomiting x 2 today. No diarrhea. No fever. Constitutional Constitutional ED: Denies chills or fever(s) Eyes Eyes: Denies blurry vision ENT ENT ED: Denies ear pain Cardiovascular Cardiovascular: Denies chest pain Respiratory/Chest Respiratory/Chest: Denies cough or dyspnea Gastrointestinal Gastrointestinal: Denies abdominal pain Genitourinary Genitourinary ED: Denies dysuria or hematuria Musculoskeletal Musculoskeletal: Denies arthralgias, back pain, myalgias or neck pain Integumentary Denies abscess or Abrasions Neurologic Neurologic: Denies headache(s) Psychiatric Psychiatric: Denies anxiety or depression Endocrine Endocrinology: Denies cold intolerance Hematologic/Lymphatic Hematologic/Lymphatic: Reports none Allergic/Immunologic Allergic/Immunologic ED: Denies mouth swelling, tongue swelling or urticaria EXAM Physical Exam Narrative Exam Narrative: 58-year-old male no acute distress vital signs stable afebrile. H EENT exam unremarkable. Neck nontender no lymphadenopathy. Lungs clear to auscultation bilaterally. Heart regular rate and rhythm rate about 70 no murmur. Chest wall ribs nontender. His left sided chest wall Mediport. Abdomen soft, nontender, nondistended normal bowel sounds without peritoneal signs. Left lower quadrant colostomy. Patient moving all 4 extremities. Calves are nontender without edema. Normal strength. Back nontender. Neurologically is awake alert no focal motor deficits. Const Vital Signs: 10/11/24 10:30 10/11/24 10:50 10/11/24 13:57 Temperature 98.6 F Temperature Source Oral Pulse Rate 73 88 Respiratory Rate 14 18 Respiratory Pattern Normal Blood Pressure 126/72 H Blood Pressure Mean 90 Pulse Ox 98 98 Oxygen Delivery Method Room Air Positive well nourished and well developed; Negative for obese, cachectic, contractures or unkempt General Appearance ED: well developed and NAD; Negative for unkempt, cachectic, contractures, cyanotic, diaphoretic or pallor Nutritional Appearance: Negative for cachectic or obese HEENT Reports moist mucous membranes Negative for trauma or tenderness Eyes PERRL and EOMs intact bilaterally General Eye ED: Negative for pale conjunctiva or scleral icterus Neck no lymphadenopathy, supple and no JVD Chest Wall inspection of chest normal and palpation of chest normal Resp normal respiratory effort and clear to auscultation bilaterally Cardio regular rate, regular rhythm, S1 normal heart sound, S2 normal heart sound and no murmurs GI normal to inspection, nondistended, normoactive bowel sounds, non-tender, non-distended and no masses GI Narrative: Left lower quadrant colostomy. Palpation: soft; Negative for tender, guarding or rebound tenderness present Back/Spine no CVA tenderness General Back: Negative for CVA tenderness Cervical Spine: Negative for cervical spine tenderness Thoracic Spine / Upper Back: Negative for thoracic spinal tenderness or paraspinal muscle tenderness Extremity normal to inspection General Extremety ED: Negative for edema or tenderness General Extremity: Negative for edema Neuro oriented x3 and CN's II-XII intact bilaterally Sensorium / Orientation: alert; Negative for orientation impaired, lethargic or stuporous Psych mental status grossly normal Appearance: Negative for unkempt Attitude: No agitated Mood & Affect: Negative for depressed, anxious or tearful Skin no rashes or lesions noted and no wounds General Skin Exam: Negative for jaundice or pallor Lesions: No lesion noted Rashes: No rashes noted Trauma: Negative for abrasion Wounds: Negative for wounds noted MDM MDM MDM Narrative Medical decision making narrative: Patient 58-year-old male history of rectal cancer undergoing chemotherapy. Has acute on chronic renal insufficiency and oncologist wanted him admitted for IV fluids and acute kidney injury. Patient be treated here with IV fluids the hospitalist on page for admission. Labs are done as an outpatient basis which I reviewed. Repeat exam patient started having vomiting was given Zofran. Currently at 2:54 PM he does have some mild abdominal distention. We went over all his test results the CAT scan shows concern for small bowel obstruction, bilateral dilated kidneys and ureters for possible urologic obstruction, he also has a UTI and may have a intra-abdominal abscess. He will be started on IV Rocephin for the UTI. He has been seen recently at [facility] and he has been treated there and hospitalized here in April. I spoke to our hospitalist here given that the patient may need additional surgery and may need his intra-abdominal abscess drained they felt that he should go to a larger facility. I discussed that the patient and his and they are comfortable with the plan. History & Record Review Discussion w/independent historian: Patient and Family Additional record(s) reviewed:: Prior inpatient record, Prior outpatient record, Prior ED visit and Prior labs Lab Data Attestation: I reviewed the patient's lab results. Lab results narrative: CBC shows a white count 24.5. H&H 9.5 and 29 all are elevated probably from his dehydration. Electrolytes show sodium 134. BUN and creatinine of 64 and 3.24. Previously his creatinine was around 2.3. Glucose 132. Urine consistent with a UTI with 50-100 white cells no epithelial cells 2+ bacteria. No nitrites. Culture will be sent. Labs: Laboratory Results - last 24 hr 10/11/24 13:50 Urine Color Yellow Urine Clarity Cloudy Urine pH 6.0 Ur Specific Sophia 1.015 Urine Protein 30 H Urine Glucose (UA) Normal Urine Ketones Negative Urine Occult Blood 50 H Urine Nitrite Negative Urine Bilirubin Negative Urine Urobilinogen Normal Ur Leukocyte Esterase 500 H Urine RBC 0-5 SEEN Urine WBC 50-100 SEEN Ur Squamous Epith Cells 0-5 SEEN Urine Bacteria 2+ Urine Mucus 1+ Radiography Diagnostic Testing: Clinical Impression(s) from Imaging Studies Abdomen CT 10/11/24 11:16 IMPRESSION: Small bowel obstruction with mildly dilated air fluid levels in the small bowel and decompressed distal small bowel loops. Persistent presacral soft tissue thickening with small air-fluid collection adjacent to the rectal suture, possible abscess with limited evaluation on noncontrast examination. Increased moderate bilateral hydroureteronephrosis. Persistent bladder wall thickening. Electronically Signed: Amara Suazo MD at 14:32 EST , Chest X-Ray 10/11/24 13:20 IMPRESSION: No acute cardiopulmonary process identified. Multiple dilated air-fluid levels small bowel concerning for small bowel obstruction. Electronically Signed: Amara Suazo MD at 14:20 EST , Critical Care Time Critical Care Time: Yes Critical care time (excluding procedures): 30-74 minutes, Including time spent:, Discussing w/Patient &/or Family/Superintendent Transportation, Discussing w/Consultants, Arranging Admission or Transfer, Performing Direct Patient Care at Bedside and - (37 minutes) Discharge Plan Dx/Rx/DC Orders Clinical Impression: Acute on chronic renal insufficiency, INOCENCIA (acute kidney injury), Dehydration, Family history of rectal cancer, History of chemotherapy, Small bowel obstruction, Hydronephrosis, Intra-abdominal abscess, Acute UTI Disposition Disposition: Acute Care Hospital [facility]
[2024-10-11] MEDS: 0.9% Normal Saline (1000mL) 1,000 ML 999 ML IV (11:05)
--- NOTE | 2024-10-11 11:16 | CT_ITS ---
HISTORY: high white count. Prior abscess. TECHNIQUE: Helically acquired images were obtained of the abdomen and pelvis without intravenous and with oral contrast. A radiation dose optimization technique was used for this scan. 442 images. COMPARISON: PET-CT 07/06/2024. CT 06/29/2024 FINDINGS: LOWER CHEST: Lung bases clear. BOWEL: Mildly dilated air fluid levels in the small bowel with decompressed distal small bowel loops. Left lower quadrant colostomy with decompressed distal colon. Appendix not visualized. PERITONEUM: No significant free fluid. Mild mesenteric edema. LIVER: Unremarkable. GALLBLADDER/BILIARY TREE: Gallbladder present. SPLEEN/PANCREAS/ADRENAL GLANDS: Nonenlarged. KIDNEYS AND URETERS: Increased moderate bilateral hydronephrosis and hydroureter without nephrolithiasis or obstructing renal calculus identified. VESSELS: No abdominal aortic aneurysm. Mild atherosclerosis. Small para-aortic lymph nodes again seen. PELVIC ORGANS: Chronic anterior bladder wall thickening. Persistent presacral soft tissue thickening with a 1.4 x 2.8 cm air-fluid collection at the rectal suture, mildly increased in size from prior. BONES: Mild degenerative change. CT/Abdomen/Pel W ORAL Cont Only IMPRESSION: Small bowel obstruction with mildly dilated air fluid levels in the small bowel and decompressed distal small bowel loops. Persistent presacral soft tissue thickening with small air-fluid collection adjacent to the rectal suture, possible abscess with limited evaluation on noncontrast examination. Increased moderate bilateral hydroureteronephrosis. Persistent bladder wall thickening. Electronically Signed: Amara Suazo MD at 14:32 EST ,
[2024-10-11] MEDS: Ondansetron 4 MG/2 ML Vial IV (11:46)
[2024-10-11] MEDS: Piperacil/Tazobactam 4.5 GM in 0.9% Normal Saline (100mL MB+) 100 ML IV (11:47)
--- NOTE | 2024-10-11 13:20 | RAD_ITS ---
HISTORY: high wbc. TECHNIQUE: XR Chest 2 Views. COMPARISON: 07/15/2024. FINDINGS: CARDIOMEDIASTINAL BORDERS: Cardiac silhouette within normal limits in size. Mediastinal contour unremarkable with left chest wall port catheter tip again at the level of the distal superior vena cava. LUNGS: Radiographically clear. PLEURA: No pleural effusion or pneumothorax seen. OSSEOUS STRUCTURES: Unremarkable. OTHER: Mildly dilated air-fluid levels in the upper abdominal small bowel. RAD/Chest PA and Lateral IMPRESSION: No acute cardiopulmonary process identified. Multiple dilated air-fluid levels small bowel concerning for small bowel obstruction. Electronically Signed: Amara Suazo MD at 14:20 EST ,
[2024-10-11 14:14] LABS: Color, Urine Yellow (Yellow); Glucose, Dipstick Normal (Normal); Ketone-Dipstick Negative (Negative); Leukocyte Esterase-Dipstick 500 /ul (Negative); Nitrite-Dipstick Negative (Negative); Occult Blood-Urine 50 /ul (Negative); Protein-Dipstick 30 mg/dl (Negative); Specific Gravity, Urine 1.015 (1.002-1.030); Urine Bilirubin Dipstick Negative (Negative); Urine Clarity Cloudy (Clear); Urine Urobilinogen Normal (Normal)
[2024-10-11 14:20] LABS: Bacteria 2+ /hpf (None Seen); Mucous, Urine 1+ /hpf (<or=2+); Red Blood Cells-Urine 0-5 SEEN /hpf (0-5); Squamous Epithelial Cells - UA 0-5 SEEN /hpf (0-5); White Blood Cells 50-100 SEEN /hpf (0-5)
[2024-10-11] MEDS: Ceftriaxone 1 GM/50 ML BAG IV (15:14)
--- NOTE | 2024-10-11 15:18 | CM.ED ---
Social work Reason for referral: no PCP Referral source: case find This SW identified patient's lack of PCP and need for resources. This SW entered patient's room and patient was lying in bed, alert and oriented. Patient's , Opal, was bedside. Patient gave permission to speak in front of patient's . Patient's stated this SW may not want to talk to us due to patient likely getting transferred to another hospital. Patient's stated she requested patient be transferred to [facility], but further details are unknown at this time. Patient's stated she should have a ride to [facility] should the transfer be able to take place. Patient verified not having a PCP as patient's PCP quit and patient's 's PCP retired. Patient and patient's both reported desiring to get new PCP's in [place], but patient accepted resources of [facility] Provider Directory and [facility] information. Patient and patient's both denied further needs at this time. SW to follow as needed. Aylin Little, SKIDDER OPERATOR, ASBESTOS COVERER
[2024-10-11] MEDS: 0.9% Normal Saline (1000mL) 1,000 ML 75 ML IV (17:45)
== END 2024-10-11 21:16 | disposition short-term general hospital (02) ==
PROVIDERS: Emergency Provider Emergency Medicine; Visit Provider Emergency Medicine
DX: R79.9 Abnormal finding of blood chemistry, unspecified (principal); K56.609 Unspecified intestinal obstruction, unspecified as to partial versus complete obstruction; K65.1 Peritoneal abscess; N17.9 Acute kidney failure, unspecified; E86.0 Dehydration; Z92.21 Personal history of antineoplastic chemotherapy; Z80.0 Family history of malignant neoplasm of digestive organs; Z95.828 Presence of other vascular implants and grafts; N13.30 Unspecified hydronephrosis; N18.9 Chronic kidney disease, unspecified; Z90.49 Acquired absence of other specified parts of digestive tract; Z85.048 Personal history of other malignant neoplasm of rectum, rectosigmoid junction, and anus; N39.0 Urinary tract infection, site not specified
CPT/HCPCS: 71046; 74176; 81001; 87040; 87086; 87088; 87186; 96361; 96365; 96366; 96367; 96375; 99283; A4216; J2405

== ENCOUNTER → 2024-11-08 | Outpatient (CLI) | payer OTHER, SELFPAY | END | disposition home or self-care (01) | LOC: PSN 08:44 | PROVIDERS: Referring Provider Internal Medicine Cardiovascular Disease; Visit Provider Internal Medicine Cardiovascular Disease | DX: R00.1 Bradycardia, unspecified (principal) | CPT/HCPCS: 93225; 93226 ==

== ENCOUNTER → 2024-11-10 | Outpatient (CLI) | payer SELFPAY, OTHER ==
--- NOTE | 2024-11-10 09:10 | ECHODONC_ITS ---
Reason For Study: ARRHYTHMIA Procedure This was a 2D Doppler, Color Flow transthoracic echocardiogram. Myocardial strain analysis was performed in this exam to aid in the assessment of cardiac function. Exam performed in department. Left Ventricle Normal LV size. Left ventricular systolic function is normal. The left ventricular ejection fraction is 65 %. No regional wall motion abnormalities noted. Right Ventricle Normal RV size. Normal systolic function. Atria Normal left atrium. Normal right atrium. Mitral Valve Normal mitral valve. Tricuspid Valve Normal tricuspid valve. Aortic Valve Trisinus/trileaflet aortic valve. Pulmonic Valve Normal pulmonic valve. Great Vessels Normal aortic root. The pulmonary artery is normal size. Normal inferior vena cava. Pericardium/Pleural No pericardial effusion. MMode/2D Measurements & Calculations LVIDd: 4.5 cm IVSd: 1.0 cm LVOT diam: 2.0 cm LVIDs: 2.5 cm LVPWd: 0.82 cm LVOT area: 3.3 cm2 RVDd: 3.9 cm FS: 44.0 % asc Aorta Diam: 3.0 cm LAV(MOD-bp): 52.7 ml LVAd ap4: 28.5 cm2 LAV(MOD-bp) Indexed: 32.0 ml/m2 LVLd ap4: 8.0 cm LAV(MOD-sp2): 59.8 ml EDV(MOD-sp4): 81.1 ml LAV(MOD-sp4): 37.0 ml EDV(sp4-el): 86.0 ml LVAs ap4: 16.6 cm2 LVLs ap4: 6.5 cm ESV(MOD-sp4): 35.0 ml ESV(sp4-el): 36.1 ml EF(MOD-sp4): 56.9 % EF(sp4-el): 58.1 % LVAd ap2: 28.4 cm2 SV(MOD-sp4): 46.1 ml SV(MOD-sp2): 50.7 ml LVLd ap2: 8.0 cm SI(MOD-sp4): 28.0 ml/m2 SI(MOD-sp2): 30.8 ml/m2 EDV(MOD-sp2): 82.1 ml EDV(sp2-el): 85.4 ml LVAs ap2: 15.8 cm2 LVLs ap2: 6.6 cm ESV(MOD-sp2): 31.5 ml ESV(sp2-el): 32.3 ml EF(MOD-sp2): 61.7 % SV(sp4-el): 49.9 ml Ao sinus diam: 3.[address] Junction: 2.7 cm LA dimension(2D): 3.8 cm LA A4 area: 14.4 cm2 RA A4 area: 13.0 cm2 TAPSE: 1.7 cm Time Measurements MV dec time: 0.36 sec Doppler Measurements & Calculations MV E max gasper: 65.2 cm/sec Lat Peak E' Gasper: 15.3 cm/sec Med Peak E' Gasper: 9.1 cm/sec MV A max gasper: 77.5 cm/sec E/E' lat: 4.3 E/E' med: 7.2 MV E/A: 0.84 MV dec slope: 182.0 cm/sec2 Ao V2 max: 145.2 cm/sec LV V1 max: 136.3 cm/sec Ao max P.4 mmHg LV V1 max P.4 mmHg Ao V2 mean: 102.6 cm/sec LV V1 mean P.0 mmHg Ao mean P.8 mmHg LV V1 mean: 109.7 cm/sec Ao V2 VTI: 25.8 cm LV V1 VTI: 25.1 cm AV (velocity ratio): 0.97 JOSE(I,D): 3.2 cm2 JOSE(V,D): 3.1 cm2 SV(LVOT): 82.0 ml PA V2 max: 115.3 cm/sec TR max gasper: 275.1 cm/sec TR max P.3 mmHg ECHO/ONC Echo Complete Interpretation Summary Normal LV size. Left ventricular systolic function is normal. The left ventricular ejection fraction is 65 %. Structurally normal valves. The global longitudinal strain is normal. The globa l longitudinal strain = -19.8 % (normal). Ordering Physician: Enrique Romero Referring Physician: Enrique Romero Performed By: Rosy Au RDCS
== END | disposition home or self-care (01) ==
LOC: CVS 09:10
PROVIDERS: Referring Provider Internal Medicine Cardiovascular Disease; Visit Provider Internal Medicine Cardiovascular Disease
DX: I34.0 Nonrheumatic mitral (valve) insufficiency (principal)
CPT/HCPCS: 93306; 93356

== ENCOUNTER 2025-02-24 06:51 | Inpatient (IN) | payer OTHER, SELFPAY ==
[2025-02-24] VITALS (13 sets, daily range): BP systolic 158–172; BP diastolic 100–117; PULSE 68–91; RESP 15–18; TEMP 36.6–37.2; O2SAT 95–98; BMI 16.1
--- NOTE | 2025-02-24 07:20 | CT_ITS ---
EXAM: CT Abdomen and Pelvis With oral contrast CLINICAL INDICATION: VOMITING, HX SBO TECHNIQUE: Axial computed tomography images of the abdomen and pelvis with oral contrast. This CT exam was performed using one or more of the following dose reduction techniques: automated exposure control, adjustment of the mA and/or kV according to patient size, and/or use of iterative reconstruction technique. Oral contrast was administered. COMPARISON: CT Abdomen Pelvis dated 10/11/2024 FINDINGS: ARTIFACTS: Motion artifact. LUNG BASES: Unremarkable. No mass. No consolidation. MEDIASTINUM: Small esophageal hiatal hernia. ABDOMEN: LIVER: Fatty infiltration of the liver. GALLBLADDER AND BILE DUCTS: Unremarkable. No calcified stones. No ductal dilation. PANCREAS: Unremarkable. No mass. No ductal dilation. SPLEEN: Unremarkable. No splenomegaly. ADRENALS: Unremarkable. No mass. KIDNEYS AND URETERS: Indwelling bilateral nephrostomy tubes. No hydronephrosis. STOMACH AND BOWEL: Multiple distended small bowel loops with differential air- fluid levels measuring up to 3.7 cm, concerning for small bowel obstruction with possible transition in the right lower abdominal quadrant. No mucosal thickening. PELVIS: APPENDIX: No findings to suggest acute appendicitis. BLADDER: Bladder wall thickening which may be due to the decompressed state of the bladder or due to cystitis. REPRODUCTIVE: Unremarkable as visualized. ABDOMEN and PELVIS: INTRAPERITONEAL SPACE: Unremarkable. No free air. No significant fluid collection. BONES/JOINTS: No acute fracture. No dislocation. SOFT TISSUES: Inguinal hernias, bilaterally. VASCULATURE: Unremarkable. No abdominal aortic aneurysm. LYMPH NODES: Unremarkable. No enlarged lymph nodes. CT/Abdomen/Pel W ORAL Cont Only IMPRESSION: 1. Multiple distended small bowel loops with differential air-fluid levels chema suring up to 3.7 cm, concerning for small bowel obstruction with possible transition in the right lower abdominal quadrant. 2. Bladder wall thickening which may be due to the decompressed state of the b ladder or due to cystitis. 3. Small esophageal hiatal hernia. 4. Inguinal hernias, bilaterally. Reading Location: [facility]
--- NOTE | 2025-02-24 07:22 | EDS_ITS ---
HPI History of Present Illness Chief Complaint: General Illness Informant: patient and spouse/S.O. Narrative Narrative: Presents generalized illness over the last 5 days. States unable to eat. Reports yesterday was able to eat some soup at noon by supper came back up. Nausea. Colostomy March of last year performed in [place]. He had a colonoscopy finding a mass 2 weeks prior. They went to [place] due to knowing somebody with similar issues with treatment there. However does follow oncology here with Dr. Ho, finished chemo treatment 2 weeks ago 4-month regimen. No fevers or chills. Reports something similar this past September and ended up with an NG tube transfer to [facility]. He ended up with bilateral nephrostomy tubes. He states both are draining. No fever or chills. Denies any significant distention of the abdomen. He states however has not emptied the colostomy in 2 days. There is minimal flatus. Inguinal hernia repairs in the past. Prior similar symptoms: Yes PFSH PFS Medical History Hypokalemia UTI (urinary tract infection) CINV (chemotherapy-induced nausea and vomiting) Cloudy urine Bradycardia Prerenal azotemia Constipation Hypoalbuminemia Wears glasses Cancer DVT (deep venous thrombosis) Syncope Non-smoker Cataract (lens) fragments in eye following cataract surgery, bilateral Mandeep blood in stool Chronic diarrhea of unknown origin Change in bowel habit Colon cancer Home Medications ?Medication ?Instructions ?Recorded ?Last Taken ?Type sennosides 8.6 mg capsule (senna) 8.6 mg PO QHS PRN co nstipation 09/24/24 10/10/24 History ondansetron 8 mg disintegrating 8 mg PO Q8H PRN nausea and 11/22/24 Unknown Rx tablet vomiting #30 tabs Allergy/AdvReac Type Severity Reaction Status Date / Time No Known Allergies Allergy Verified 02/14/25 09:48 Family History Son Cancer Surgical History H/O hernia repair S/P colonoscopy H/O colectomy History of creation of ostomy Social History household members: spouse Smoking Status: Never smoker alcohol intake: never substance use type: does not use ROS ROS ED Constitutional Constitutional ED: Denies chills, fever(s) or sweats ENT ENT ED: Denies sore throat Cardiovascular Cardiovascular: Denies chest pain, leg edema, palpitations or racing heartbeat Respiratory/Chest Respiratory/Chest: Denies cough, dyspnea or dyspnea on exertion Gastrointestinal Gastrointestinal: Reports nausea and vomiting; Denies abdominal pain or diarrhea Genitourinary Genitourinary ED: Denies dysuria, hematuria or urinary frequency Musculoskeletal Musculoskeletal: Denies back pain, extremity pain or neck pain Integumentary Denies rash or wounds Neurologic Neurologic: Denies headache(s), paresthesias or weakness EXAM Physical Exam Const Vital Signs: 02/24/25 06:52 02/24/25 06:56 02/24/25 07:42 Temperature 98.4 F 98.4 F Temperature Source Oral Oral Pulse Rate 79 68 Respiratory Rate 16 16 Respiratory Effort Normal Non-Labored Respiratory Pattern Normal Blood Pressure 172/112 H 172/113 H Blood Pressure Mean 132 132 Pulse Ox 97 98 Oxygen Delivery Method Room Air Room Air 02/24/25 07:56 02/24/25 08:00 02/24/25 09:00 Temperature 98.6 F 98.6 F 98.3 F Temperature Source Oral Oral Oral Pulse Rate 81 81 91 Respiratory Rate 15 16 17 Respiratory Effort Respiratory Pattern Blood Pressure 168/112 H 158/100 H 168/108 H Blood Pressure Mean 130 119 128 Pulse Ox 98 98 98 Oxygen Delivery Method Room Air Room Air Room Air 02/24/25 10:00 02/24/25 11:09 Temperature 98.3 F 98.3 F Temperature Source Oral Pulse Rate 84 84 Respiratory Rate 18 18 Respiratory Effort Respiratory Pattern Blood Pressure 166/112 H 166/112 H Blood Pressure Mean 130 130 Pulse Ox 98 98 Oxygen Delivery Method Room Air Positive well nourished and well developed General Appearance ED: well developed and NAD HEENT Reports moist mucous membranes normocephalic and atraumatic Eyes General Eye ED: Yes normal appearance of both eyes Neck full ROM Chest Wall Chest: Negative for tenderness Resp normal respiratory effort and normal air movement Effort and Inspection: symmetric chest movement; Negative for respiratory distress Cardio regular rate, regular rhythm and no murmurs Peripheral Pulses: pulses 2+ throughout GI non-tender GI Narrative: Hypoactive bowel sounds no skin distention. Palpation: Negative for guarding or rebound tenderness present Narrative: Bilateral nephrostomy tubes with urine drainage in both bags. Extremity normal to inspection General Extremety ED: Negative for edema or tenderness General Extremity: Negative for edema Neuro oriented x3 and no sensory deficits noted Sensorium / Orientation: awake and alert Skin no rashes or lesions noted and no wounds MDM MDM MDM Narrative Medical decision making narrative: Interventions / MDM: Differential diagnosis: Small bowel obstruction, history of colon cancer with ostomy, history of nephrostomy tubes Diagnosis considered but do not suspect: N/A My EKG interpretation: N/A Imaging independently reviewed and interpreted by myself: CT abdomen pelvis with p.o. contrast: Small bowel obstruction transition in the right lower quadrant. 1 view KUB: NG tube in the stomach. External documents reviewed: Clinisync: Visit in September at [facility]. Nephrostomy tubes were placed. NG tube for obstruction. Antibiotics for his abdominal abscesses. Test considered but not ordered:N/A ED course: Patient's history concerning for small bowel obstruction. No ostomy output in 2 days. His nephrostomy tubes are both draining yellow urine. Will check abdominal labs, Zofran ordered. Declines any pain medicines. CT abdomen pelvis with p.o. contrast will be ordered for evaluation. 1040: Labs white count 7.8 creatinine 1.39. Sodium 138 potassium 3.3. Lipase 109. CT scan results concerning for small bowel obstruction transition in the right lower quadrant per radiology. Order for NG tube. Fluids continued. 1055: I spoke with Dr. Chandler, this patient's history findings obstruction. Patient has bilateral nephrostomy tubes have they are not obstructed or working. He will assist with management here. With his cancer history requesting discussion with hospitalist service for admission. 1130: I spoke with hospitalist Dr. Royal agrees to admit under service and surgery to follow. Re-evaluation: stable Disposition discussed with patient/family/significant other: Patient and spouse Case discussed with consulting clinician: General Surgery, hospitalist This note was generated with [employer] dictation software. It may contain incorrect words, spelling, and punctuation that were not noted in checking the note before signing. Lab Data Attestation: I reviewed the patient's lab results. Labs: Laboratory Results - last 24 hr 02/24/25 07:35 WBC 7.8 RBC 3.77 L Hgb 12.6 L Hct 35.1 L MCV 93.1 MCH 33.4 H MCHC 35.9 RDW Std Deviation 49.7 H RDW Coeff of Rosalee 14.9 H Plt Count 111 L MPV 9.5 Immature Gran % (Auto) 0.400 Neut % (Auto) 84.7 H Lymph % (Auto) 4.5 L [place] % (Auto) 9.9 Eos % (Auto) 0.1 Baso % (Auto) 0.4 Absolute Neuts (auto) 6.6 Absolute Lymphs (auto) 0.35 L Nucleated RBC % 0 Sodium 138 Potassium 3.3 Chloride 98 Carbon Dioxide 27.3 Anion Gap 12 BUN 17 Creatinine 1.39 H Estim Creat Clear Calc 39.01 L Est GFR (MDRD) Non-Af 58 L BUN/Creatinine Ratio 12.2 Glucose 112 H Calcium 9.8 Phosphorus 2.7 Magnesium 2.1 Total Bilirubin 0.72 AST 35 ALT 16 Alkaline Phosphatase 128 Total Protein 7.1 Albumin 3.8 Globulin 3.3 Albumin/Globulin Ratio 1.1 Lipase 109 H Radiography Diagnostic Testing: Clinical Impression(s) from Imaging Studies Abdomen CT 02/24/25 07:20 IMPRESSION: 1. Multiple distended small bowel loops with differential air-fluid levels measuring up to 3.7 cm, concerning for small bowel obstruction with possible transition in the right lower abdominal quadrant. 2. Bladder wall thickening which may be due to the decompressed state of the bladder or due to cystitis. 3. Small esophageal hiatal hernia. 4. Inguinal hernias, bilaterally. Reading Location[facility] X-Ray 02/24/25 11:25 IMPRESSION: Tip of the nasogastric tube in the fundus of the stomach. Bilateral nephrostomy catheters. Bowel-gas pattern suggest adynamic/reflex ileus. Reading Location: [facility] Discharge Plan Dx/Rx/DC Orders Clinical Impression: SBO (small bowel obstruction), Malignant neoplasm of rectum, Vomiting, Nephrostomy present Disposition Disposition: Acute Care [facility] Discharge Date/Time: 02/24/25 12:02
[2025-02-24] MEDS: Ondansetron 4 MG/2 ML Vial IV (07:39)
[2025-02-24] MEDS: 0.9% Normal Saline (1000mL) 1,000 ML 125 ML IV (07:39)
[2025-02-24 07:43] LABS: Absolute Lymphocyte Count 0.35 X10^3/uL (0.83-4.51); Absolute Neutrophil Count 6.6 X10^3/uL (2.0-7.7); Basophil# 0.03 X10^3/uL; Basophil% 0.4 % (0-1); Eosinophil# 0.01 X10^3/uL; Eosinophils% 0.1 % (0-5); Hematocrit 35.1 % (40-54); Hemoglobin 12.6 g/dL (13.0-16.5); Lymphocyte # 0.35 X10^3/ul (0.83-4.51); Lymphocyte % 4.5 % (19-41); Mean Corp Hgb Conc 35.9 g/dL (32-36); Mean Corpuscular Hgb 33.4 pg (27.0-32.0); Mean Corpuscular Volume 93.1 fL (80-94); Mean Platelet Vol. 9.5 fl (6.2-12.0); Monocyte# 0.77 X10^3/uL; Monocyte% 9.9 % (0-10); NRBC Flagged by Analyzer 0 % (0-5); Neutrophil % 84.7 % (47-70); POSITIVE DIFFERENTIAL YES; Platelet Count 111 K/mm3 (150-450); RBC Distribution Width CV 14.9 % (11.6-14.6); RBC Distribution Width SD 49.7 fl (35.1-43.9); Red Blood Count 3.77 M/mm3 (4.6-6.2); White Blood Count 7.8 K/mm3 (4.4-11.0)
[2025-02-24 07:59] LABS: ALB/GLOB Ratio 1.1 RATIO (0.9-2.4); AST(SGOT) 35 U/L (<=37); Alanine Aminotransfer ALT/SGPT 16 U/L (<=46); Albumin, Serum 3.8 g/dL (3.5-5.0); Alkaline Phosphatase 128 U/L (40-129); Anion Gap 12 (5-15); BUN 17 mg/dL (4-19); BUN/Creat Ratio 12.2 RATIO (10-20); Calcium,Total 9.8 mg/dL (7.6-11.0); Carbon Dioxide 27.3 mmol/L (21.0-32.0); Chloride 98 mmol/L (98-108); Creatinine, Serum 1.39 mg/dL (0.70-1.20); EST Glomerular Filtration Rate 58 (>60); Estimated Creatinine Clearance 39.01 ml/min (50-250); Globulin 3.3 g/dL (2.2-4.2); Glucose 112 mg/dL (70-99); Lipase 109 U/L (13-75); Potassium 3.3 mmol/L (3.3-5.1); Protein, Total 7.1 g/dL (5.9-8.4); Sodium Level 138 mmol/L (133-145); Total Bilirubin 0.72 mg/dL (0.00-1.30)
[2025-02-24] MEDS: Oxymetazoline 0.05% 1 SPRAY SPRAY.BTL 2 SPRAY NASAL (11:08)
--- NOTE | 2025-02-24 11:25 | RAD_ITS ---
PROCEDURE: ABDOMEN SINGLE VIEW (PORTABLE) 02/24/2025 REASON FOR EXAM: NG INSERTION. TECHNIQUE: Single view abdomen. COMPARISON: Chest dated 01/03/2025 FINDINGS: Bowel gas: Gas present in both large and small bowel. A few subtle air-fluid levels in loops of small bowel. Calcifications: Unremarkable. Bones: Unremarkable. Other: Tip of a nasogastric tube is in the region of the fundus of the stomach. Bilateral pigtail catheters are noted in the midabdomen representing nephrostomy catheters. RAD/Abdomen Single View (Portable) IMPRESSION: Tip of the nasogastric tube in the fundus of the stomach. Bilateral nephrostomy catheters. Bowel-gas pattern suggest adynamic/reflex ileus. Reading Location: [facility]
--- NOTE | 2025-02-24 11:29 | HP.PCM.HOS_ITS ---
HPI - General General Date of Admission: 02/24/25 Date of Service: 02/24/25 Chief Complaint: Last BM Friday. Not passing flatus at home. HPI Narrative CARLOS DUMONT, jorge alberto a 59 M Was admitted with not moving his bowel, nausea vomiting since Friday night. His last bowel movement on Friday was well-formed with no blood. He had APR with colostomy in [place] in March 2024. Prior to that he had chemotherapy about 10 days to 2 weeks ago, second chemotherapy regimen after 4 months. Denies fever or chills. In September 2024 he had bilateral nephrostomy in [facility], [facility]. In ED, patient had CT abdomen which showed multiple distended small bowel loops with air-fluid levels measuring up to 3.7 cm concerning for small bowel obstruction and possible transition in RLQ. [facility] Medical History Hypokalemia UTI (urinary tract infection) CINV (chemotherapy-induced nausea and vomiting) Cloudy urine Bradycardia Prerenal azotemia Constipation Hypoalbuminemia Wears glasses Cancer DVT (deep venous thrombosis) Syncope Non-smoker Cataract (lens) fragments in eye following cataract surgery, bilateral Mandeep blood in stool Chronic diarrhea of unknown origin Change in bowel habit Colon cancer Home Medications ?Medication ?Instructions ?Recorded ?Last Taken ?Type sennosides 8.6 mg capsule (senna) 8.6 mg PO QHS PRN co nstipation 09/24/24 10/10/24 History ondansetron 8 mg disintegrating 8 mg PO Q8H PRN nausea and 11/22/24 Unknown Rx tablet vomiting #30 tabs Allergy/AdvReac Type Severity Reaction Status Date / Time No Known Allergies Allergy Verified 02/14/25 09:48 Family History Son Cancer Surgical History H/O hernia repair S/P colonoscopy H/O colectomy History of creation of ostomy Social History household members: spouse Smoking Status: Never smoker alcohol intake: never substance use type: does not use ROS ROS Narrative Constitutional: Reports fatigue and weakness. No fever. HEENT: Reports systems reviewed and no addt'l complaints, except as documented Respiratory/Chest: No acute shortness of breath or respiratory distress or wheezing. CVS: No chest pain or shortness of breath. Denies history of A-fib Gastrointestinal: Denies coffee ground emesis, hematemesis or vomiting Genitourinary: Denies burning urination or new urinary tract symptoms Musculoskeletal: Denies acute joint pain or limited range of motion. No acute injury Neurologic: Denies seizure-like symptoms. skin: No ulcer. No rash Endocrinology: Reports systems reviewed and no addt'l complaints, except as documented Hematologic/Lymphatic: Reports systems reviewed and no addt'l complaints, except as documented Rest 14 ROS are negative except as mentioned in HPI Vital Signs Vital Signs Vital Signs: 02/24/25 06:52 02/24/25 06:56 02/24/25 07:42 Temperature 98.4 F 98.4 F Temperature Source Oral Oral Pulse Rate 79 68 Respiratory Rate 16 16 Respiratory Effort Normal Non-Labored Respiratory Pattern Normal Blood Pressure 172/112 H 172/113 H Blood Pressure Mean 132 132 Pulse Ox 97 98 Oxygen Delivery Method Room Air Room Air 02/24/25 07:56 02/24/25 08:00 02/24/25 09:00 Temperature 98.6 F 98.6 F 98.3 F Temperature Source Oral Oral Oral Pulse Rate 81 81 91 Respiratory Rate 15 16 17 Respiratory Effort Respiratory Pattern Blood Pressure 168/112 H 158/100 H 168/108 H Blood Pressure Mean 130 119 128 Pulse Ox 98 98 98 Oxygen Delivery Method Room Air Room Air Room Air 02/24/25 10:00 02/24/25 11:09 Temperature 98.3 F 98.3 F Temperature Source Oral Pulse Rate 84 84 Respiratory Rate 18 18 Respiratory Effort Respiratory Pattern Blood Pressure 166/112 H 166/112 H Blood Pressure Mean 130 130 Pulse Ox 98 98 Oxygen Delivery Method Room Air Weight Weight: 106 lb 4.205 oz Body Mass Index (BMI) 16.1 Physical Exam Narrative General: Alert, Oriented x3, Cooperative HEENT: Atraumatic, PERRLA, EOMI, Normocephalic. Oral: Oral mucosa dry no Gingival or Mucosal Lesions/ Ulcerations Neck: Supple, No JVD, Negative Carotid Bruits Chest wall/Lungs: Air entry diminished in bilateral lung bases. No crepitation/rhonchi Cardiovascular: Irregular rhythm normal S1,S2, systolic murmur Abdomen: Bowel Sounds hyper, soft, Non Tender, colostomy. Not very distended : Bilateral nephrostomy tube, dark urine. No renal angle tenderness. No suprapubic tenderness. Extremities: No edema, Capillary Refill Less than 3 Seconds Skin: No rashes, No breakdown Musculoskeletal: No Tenderness to Palpation of Joints or Extremities Neurological: Cranial nerves II-XII grossly intact, DTR 2+/4. No acute focal neurological deficit. Psych/Mental Status: Normal Affect, Appropriate. Results Lab / Micro Data 02/24/25 07:35 02/24/25 07:35 Labs: Laboratory Results - last 24 hr 02/24/25 07:35: WBC 7.8, RBC 3.77 L, Hgb 12.6 L, Hct 35.1 L, MCV 93.1, MCH 33.4 H, MCHC 35.9, RDW Std Deviation 49.7 H, RDW Coeff of Rosalee 14.9 H, Plt Count 111 L , MPV 9.5, Immature Gran % (Auto) 0.400, Neut % (Auto) 84.7 H, Lymph % (Auto) 4.5 L, [place] % (Auto) 9.9, Eos % (Auto) 0.1, Baso % (Auto) 0.4, Absolute Neuts (auto) 6.6, Absolute Lymphs (auto) 0.35 L, Nucleated RBC % 0, Sodium 138, Potassium 3.3, Chloride 98, Carbon Dioxide 27.3, Anion Gap 12, BUN 17, C reatinine 1.39 H, Estim Creat Clear Calc 39.01 L, Est GFR (MDRD) Non-Af 58 L, BUN/Creatinine Ratio 12.2, Glucose 112 H, Calcium 9.8, Total Bilirubin 0.72, AST 35, ALT 16, Alkaline Phosphatase 128, Total Protein 7.1, Albumin 3.8, Globulin 3.3, Albumin/Globulin Ratio 1.1, Lipase 109 H Imaging Radiology Impression Abdomen CT 02/24/25 07:20 IMPRESSION: 1. Multiple distended small bowel loops with differential air-fluid levels measuring up to 3.7 cm, concerning for small bowel obstruction with possible transition in the right lower abdominal quadrant. 2. Bladder wall thickening which may be due to the decompressed state of the bladder or due to cystitis. 3. Small esophageal hiatal hernia. 4. Inguinal hernias, bilaterally. Reading Location: [facility] Assessment & Plan Assessment/Plan (1) SBO (small bowel obstruction): (2) Malignant neoplasm of rectum: PLAN: Plan This 59-year-old gentleman is being admitted for small bowel obstruction. Patient has history of rectal cancer status post APR. He had chemotherapy and radiation 4 months ago and then last chemo about 10 days ago. 1. Small bowel obstruction with history of colorectal cancer status post APR and colostomy: Patient is being admitted [facility] floor. IV fluid Ringer lactate at 100 mL/h. NG suction at low intermittent wall suction. Monitor bowel emptying. Surgery Dr. Bains's been consulted. CT abdomen images shows multiple distended small bowel loops with largest measuring 3.7 cm. 2. CA rectum: He follows Dr. Ho. Had C8 FOLFOX on 02/14/2025. Prior to that he finished chemotherapy on 08/13/2024 and radiation on 08/17/2024. 3. Bilateral hydronephrosis status post bilateral nephrostomy in September 2024 in [facility]: Urine in bilateral nephrostomy bag is dark-colored. IV fluid hydration. CT scan does not show hydronephrosis 4. History of DVT in the past: Unclear about it location but patient said it was in right thigh. Unclear about the reason why did not complete full course of anticoagulation but he said he had Lovenox and aspirin during hospitalization in [facility]. 5. Irregular rhythm: Twelve-lead EKG shows sinus rhythm with PAC, LAD at 85 bpm.Denies history of A-fib. 6. DVT prophylaxis, high risk: Lovenox 40 mg subcu daily Living will/advanced directive/end of life care: Patient does not have living will or advanced directive but in the process of making living well. After discussion of benefits/risks procedures involved with full code, DNR CC arrest and DNR CC, the patient and his opted for full code Patient does want artificial life support including intubation, tube feed, ventilator and/chest compression, central venous catheter, vasopressor and DC shock if needed Total time spent in [id number] encounter in discussion of advanced directive 17 minutes. Laboratory Results 02/24/25 07:35: WBC 7.8, RBC 3.77 L, Hgb 12.6 L, Hct 35.1 L, MCV 93.1, MCH 33.4 H, MCHC 35.9, RDW Std Deviation 49.7 H, RDW Coeff of Rosalee 14.9 H, Plt Count 111 L , MPV 9.5, Immature Gran % (Auto) 0.400, Neut % (Auto) 84.7 H, Lymph % (Auto) 4.5 L, [place] % (Auto) 9.9, Eos % (Auto) 0.1, Baso % (Auto) 0.4, Absolute Neuts (auto) 6.6, Absolute Lymphs (auto) 0.35 L, Nucleated RBC % 0, Sodium 138, Potassium 3.3, Chloride 98, Carbon Dioxide 27.3, Anion Gap 12, BUN 17, Creatinine 1.39 H, Estim Creat Clear Calc 39.01 L, Est GFR (MDRD) Non-Af 58 L, BUN/Creatinine Ratio 12.2, Glucose 112 H, Calcium 9.8, Total Bilirubin 0.72, AST 35, ALT 16, Alkaline Phosphatase 128, Total Protein 7.1, Albumin 3.8, Globulin 3.3, Albumin/Globulin Ratio 1.1, Lipase 109 H Clinical Impression(s) from Imaging Studies Abdomen CT 02/24/25 07:20 IMPRESSION: 1. Multiple distended small bowel loops with differential air-fluid levels measuring up to 3.7 cm, concerning for small bowel obstruction with possible transition in the right lower abdominal quadrant. 2. Bladder wall thickening which may be due to the decompressed state of the bladder or due to cystitis. 3. Small esophageal hiatal hernia. 4. Inguinal hernias, bilaterally. Reading Location: [facility] X-Ray 02/24/25 11:25 IMPRESSION: Tip of the nasogastric tube in the fundus of the stomach. Bilateral nephrostomy catheters. Bowel-gas pattern suggest adynamic/reflex ileus. Reading Location: [facility] Charges/Coding Visit Charges Inpatient E&M: 06664 Init Hosp L3 Procedures Hospitalists Procedures: 77556 Advncd Care Plan 30 Min
[2025-02-24] MEDS: Enoxaparin 40 MG/0.4 ML Syringe SC (13:13)
[2025-02-24] MEDS: Lactated Ringers 1,000 ML 100 ML IV ×2 (13:13→23:30)
[2025-02-24 13:59] LABS: Magnesium 2.1 mg/dL (1.5-2.2); Phosphorus 2.7 mg/dL (2.7-4.5)
--- NOTE | 2025-02-24 16:01 | CON.PCM.SX_ITS ---
Assessment & Plan Assessment/Plan (1) SBO (small bowel obstruction): PLAN: Plan The patient is a 59-year-old male with a history of colon cancer treated surgically about a year ago and has just completed chemotherapy. He presents with a small bowel obstruction. He had a previous bowel obstruction and September which resolved spontaneously without the need for surgery. He has been admitted to the medicine service and a surgical consult was placed. I am recommending continued n.p.o. and NG tube decompression. Also recommend IV fluid hydration. Ideally I would like to obtain a small bowel follow-through however he is still having some nausea and vomiting this afternoon. I am recommending that we decompressed him overnight and likely plan for small bowel follow-through in a.m. The patient and his are understanding of this plan and are in agreement. We will continue to follow along and advise accordingly. HPI Consult Data Date of Consult: 02/24/25 HPI Narrative Reason for Consultation: Small bowel obstruction HPI Narrative: CARLOS DUMONT, is a 59 M who presents to the emergency department here at [facility] with complaints of nausea, vomiting and abdominal pain over the last 4 to 5 days. Patient has a history of a colon resection with colostomy last year. This was performed in [place] for malignancy. He is currently being seen by oncology here at [facility]. He just recently completed a 4-month regimen of chemotherapy. Patient states that he has been unable to eat over the last several days due to nausea and vomiting. He presented to the emergency department today with these complaints. He was seen evaluated by the ER staff. He underwent CT scan that showed small bowel obstruction. Patient had a previous small bowel obstruction treated back in September at [facility]. This resolved spontaneously without need for surgery. He also had bilateral nephrostomy tubes placed at that time as well. He does admit to some recent constipation issues however over the last 2 days he has not had any significant ostomy output although he does admit to a small amount of liquid stool this afternoon since being admitted. Nasogastric tube was placed in the emergency room. This appears to have removed about 400 cc thus far. He does state that he is still feeling somewhat nauseated and had a small emesis since arriving on the floor. Surgical consult was obtained for recommendations and treatment for the small bowel obstruction . [facility] Medical History Hypokalemia UTI (urinary tract infection) CINV (chemotherapy-induced nausea and vomiting) Cloudy urine Bradycardia Prerenal azotemia Constipation Hypoalbuminemia Wears glasses Cancer DVT (deep venous thrombosis) Syncope Non-smoker Cataract (lens) fragments in eye following cataract surgery, bilateral Mandeep blood in stool Chronic diarrhea of unknown origin Change in bowel habit Colon cancer Home Medications ?Medication ?Instructions ?Recorded ?Last Taken ?Type sennosides 8.6 mg capsule (senna) 8.6 mg PO QHS PRN co nstipation 09/24/24 10/10/24 History ondansetron 8 mg disintegrating 8 mg PO Q8H PRN nausea and 11/22/24 Unknown Rx tablet vomiting #30 tabs Allergy/AdvReac Type Severity Reaction Status Date / Time No Known Allergies Allergy Verified 02/14/25 09:48 Family History Son Cancer Surgical History H/O hernia repair S/P colonoscopy H/O colectomy History of creation of ostomy Social History household members: spouse Smoking Status: Never smoker alcohol intake: never substance use type: does not use Physical Exam Narrative He is alert and oriented x 3. He is in no acute distress. Head is normocephalic and atraumatic. NG tube in place. Pupils are equal round and reactive to light. Abdomen is soft and slightly distended. Very minimal tenderness with palpation. There is a small amount of liquid stool within the ostomy bag. No significant flatus Lab / Micro Data 02/24/25 07:35 02/24/25 07:35 Labs: Laboratory Results - last 24 hr 02/24/25 07:35: WBC 7.8, RBC 3.77 L, Hgb 12.6 L, Hct 35.1 L, MCV 93.1, MCH 33.4 H, MCHC 35.9, RDW Std Deviation 49.7 H, RDW Coeff of [place] 14.9 H, Plt Count 111 L , MPV 9.5, Immature Gran % (Auto) 0.400, Neut % (Auto) 84.7 H, Lymph % (Auto) 4.5 L, [place] % (Auto) 9.9, Eos % (Auto) 0.1, Baso % (Auto) 0.4, Absolute Neuts (auto) 6.6, Absolute Lymphs (auto) 0.35 L, Nucleated RBC % 0, Sodium 138, Potassium 3.3, Chloride 98, Carbon Dioxide 27.3, Anion Gap 12, BUN 17, C reatinine 1.39 H, Estim Creat Clear Calc 39.01 L, Est GFR (MDRD) Non-Af 58 L, BUN/Creatinine Ratio 12.2, Glucose 112 H, Calcium 9.8, Phosphorus 2.7, Magnesium 2.1, Total Bilirubin 0.72, AST 35, ALT 16, Alkaline Phosphatase 128, Total Protein 7.1, Albumin 3.8, Globulin 3.3, Albumin/Globulin Ratio 1.1, Lipase 109 H Imaging Radiology Impression Abdomen CT 02/24/25 07:20 IMPRESSION: 1. Multiple distended small bowel loops with differential air-fluid levels measuring up to 3.7 cm, concerning for small bowel obstruction with possible transition in the right lower abdominal quadrant. 2. Bladder wall thickening which may be due to the decompressed state of the bladder or due to cystitis. 3. Small esophageal hiatal hernia. 4. Inguinal hernias, bilaterally. Reading Location: [facility] X-Ray 02/24/25 11:25 IMPRESSION: Tip of the nasogastric tube in the fundus of the stomach. Bilateral nephrostomy catheters. Bowel-gas pattern suggest adynamic/reflex ileus. Reading Location: [facility] Charges/Coding Visit Charges Inpatient E&M: 24808 Init Hosp L3
[2025-02-24 16:52] LABS: Mucous, Urine 0 SEEN /hpf (<or=2+); Squamous Epithelial Cells - UA 0 SEEN /hpf (0-5)
[2025-02-24 18:17] LABS: Color, Urine Yellow (Yellow); Glucose, Dipstick Normal (Normal); Ketone-Dipstick 15 mg/dl (Negative); Leukocyte Esterase-Dipstick 500 /ul (Negative); Nitrite-Dipstick Negative (Negative); Occult Blood-Urine 250 /ul (Negative); Protein-Dipstick 500 mg/dl (Negative); Specific Gravity, Urine 1.025 (1.002-1.030); Urine Bilirubin Dipstick Negative (Negative); Urine Clarity Turbid (Clear); Urine Urobilinogen Normal (Normal)
[2025-02-24 18:42] LABS: White Blood Cells >100 SEEN /hpf (0-5)
[2025-02-24 19:02] LABS: Red Blood Cells-Urine 25-50 SEEN /hpf (0-5)
[2025-02-24 19:03] LABS: Bacteria 2+ /hpf (None Seen); Calcium Oxalate Crystals Ur 1+ /hpf (<or=2+)
[2025-02-25] VITALS (17 sets, daily range): BP systolic 144–172; BP diastolic 80–112; PULSE 67–91; RESP 16–20; TEMP 36.2–37.1; O2SAT 92–100; BMI 16.5
[2025-02-25 07:09] LABS: Absolute Lymphocyte Count 0.51 X10^3/uL (0.83-4.51); Absolute Neutrophil Count 6.7 X10^3/uL (2.0-7.7); Basophil# 0.03 X10^3/uL; Basophil% 0.4 % (0-1); Eosinophil# 0.01 X10^3/uL; Eosinophils% 0.1 % (0-5); Hematocrit 35.7 % (40-54); Hemoglobin 12.5 g/dL (13.0-16.5); Lymphocyte # 0.51 X10^3/ul (0.83-4.51); Lymphocyte % 6.2 % (19-41); Mean Corpuscular Hgb 33.8 pg (27.0-32.0); Mean Corpuscular Volume 96.5 fL (80-94); Mean Platelet Vol. 9.4 fl (6.2-12.0); Monocyte# 0.99 X10^3/uL; Monocyte% 11.9 % (0-10); NRBC Flagged by Analyzer 0 % (0-5); Neutrophil # 6.71 X10^3/uL (2.7-7.7); Neutrophil % 80.9 % (47-70); POSITIVE DIFFERENTIAL YES; Platelet Count 113 K/mm3 (150-450); RBC Distribution Width CV 15.2 % (11.6-14.6); RBC Distribution Width SD 52.5 fl (35.1-43.9); White Blood Count 8.3 K/mm3 (4.4-11.0)
[2025-02-25] MEDS: 0.9% Saline Lock 10 ML Syringe IV ×2 (07:18→11:30)
[2025-02-25 07:44] LABS: Anion Gap 14 (5-15); BUN 21 mg/dL (4-19); BUN/Creat Ratio 13.7 RATIO (10-20); Calcium,Total 9.6 mg/dL (7.6-11.0); Carbon Dioxide 29.5 mmol/L (21.0-32.0); Chloride 99 mmol/L (98-108); Creatinine, Serum 1.51 mg/dL (0.70-1.20); EST Glomerular Filtration Rate 53 (>60); Estimated Creatinine Clearance 36.73 ml/min (50-250); Glucose 121 mg/dL (70-99); Potassium 3.2 mmol/L (3.3-5.1); Sodium Level 142 mmol/L (133-145)
--- NOTE | 2025-02-25 08:25 | RAD_ITS ---
EXAM: Small bowel series. CLINICAL HISTORY: Small-bowel obstruction. COMPARISON: Limited abdomen study of 02/24/2025. TECHNIQUE: Small bowel series. Study was performed with installation through nasogastric tube of 240 mL 50% dilution Gastrografin. RAD/Small Bowel Series Only IMPRESSION: On initial imaging, nasogastric tube position is unchanged. Bilateral nephrost krys tubes are unchanged in position. Multiple dilated small bowel loops are seen throughout the abdomen, predominant ly centrally into the left; this is consistent with small-bowel obstruction or adynamic ileus. Some contrast is seen extending to the proximal jejunum, at the 1 hour film. Following this, the patient reportedly vomited the remaining gastric contrast. The study was then terminated by Dr. Chandler. Reading Location: [place] [id number]
--- NOTE | 2025-02-25 08:34 | PN.SURG_ITS ---
Subjective Subjective Patient feeling better this morning as he states that his abdominal pain is less. He is also been having some increasing liquid stool in his ostomy bag. No further episodes of nausea or vomiting. He did have some hiccuping this morning. No fevers or chills. Objective Data Objective Data Vital Signs: Vital Signs Temp Pulse Resp BP Pulse Ox O2 Del Method 97.7 F L 77 20 H 172/107 H 98 Room Air 02/25/25 06:55 02/25/25 06:55 02/25/25 06:55 02/25/25 06:55 02/25/25 08:12 02/25/25 08:12 Oxygen Delivery Method Room Air Weight: 108 lb 11.006 oz Body Mass Index (BMI) 16.5 Intake & Output: Intake and Output for Last 24 Hours 02/23/25 02/24/25 02/25/25 23:59 23:59 23:59 Intake Total 1569.58 / 1629.58 90 / 90 Output Total 200 / 800 1050 / 1050 Balance 1369.58 / 829.58 -960 / -960 Lab / Micro Data 02/25/25 06:40 02/25/25 06:40 Labs: Laboratory Results - last 24 hr 02/24/25 07:35: Phosphorus 2.7, Magnesium 2.1 02/24/25 16:35: Urine Color Yellow, Urine Clarity Turbid, Urine pH 6.0, Ur Specific [place] 1.025, Urine Protein 500 H, Urine Glucose (UA) Normal, Urine Ketones 15 H, Urine Occult Blood 250 H, Urine Nitrite Negative, Urine Bilirubin Negative, Urine Urobilinogen Normal, Ur Leukocyte Esterase 500 H, Urine RBC 25- 50 SEEN, Urine WBC >100 SEEN, Ur Squamous Epith Cells 0 SEEN, Calcium Oxalate Crystal 1+, Urine Bacteria 2+, Urine Mucus 0 SEEN 02/25/25 06:40: WBC 8.3, RBC 3.70 L, Hgb 12.5 L, Hct 35.7 L, MCV 96.5 H, MCH 33.8 H, MCHC 35.0, RDW Std Deviation 52.5 H, RDW Coeff of Ros[place] 15.2 H, Plt Count 113 L, MPV 9.4, Immature Gran % (Auto) 0.500, Neut % (Auto) 80.9 H, Lymph % (Auto) 6.2 L, [place] % (Auto) 11.9 H, Eos % (Auto) 0.1, Baso % (Auto) 0.4, Absolute Neuts (auto) 6.7, Absolute Lymphs (auto) 0.51 L, Nucleated RBC % 0, Sodium 142, Potassium 3.2 L, Chloride 99, Carbon Dioxide 29.5, Anion Gap 14, BUN 21 H, Creatinine 1.51 H, Estim Creat Clear Calc 36.73 L, Est GFR (MDRD) Non-Af 53 L, BUN/Creatinine Ratio 13.7, Glucose 121 H, Calcium 9.6 Radiography Diagnostic Testing: Radiology Impression Abdomen CT 02/24/25 07:20 IMPRESSION: 1. Multiple distended small bowel loops with differential air-fluid levels measuring up to 3.7 cm, concerning for small bowel obstruction with possible transition in the right lower abdominal quadrant. 2. Bladder wall thickening which may be due to the decompressed state of the bladder or due to cystitis. 3. Small esophageal hiatal hernia. 4. Inguinal hernias, bilaterally. Reading [facility] 02/24/25 11:25 IMPRESSION: Tip of the nasogastric tube in the fundus of the stomach. Bilateral nephrostomy catheters. Bowel-gas pattern suggest adynamic/reflex ileus. Reading Location: [facility] Physical Exam Narrative He is alert and oriented x 3. He is in no acute distress. NG tube is in place. Abdomen is softer and less distended. There is a small amount of liquid stool in his colostomy bag. 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 Assessment & Plan Assessment/Plan (1) SBO (small bowel obstruction): PLAN: The patient is a 59-year-old male with a history of rectal cancer status post a bowel resection with end colostomy. He presents with a small bowel obstruction. He had a recent bowel obstruction in September which resolved spontaneously. He seems to be improving this morning as there is some return of bowel function. I am recommending a small bowel follow-through this morning. This could be both diagnostic and therapeutic We will await the results of the small bowel follow-through. If this appears normal, I would likely recommend removing the NG tube and beginning a trial of clear liquids Patient and his are agreeable to this plan. Dr. Paredes to cover weekend.
[2025-02-25] MEDS: Potassium Chloride 10mEq/100mL 10 MEQ/100 ML IV.SOLN. 100 MEQ IV BOLUS ×2 (11:09→17:54)
[2025-02-25] MEDS: Lactated Ringers 1,000 ML 100 ML IV ×2 (11:10→22:05)
[2025-02-25] MEDS: hydrALAZINE 20 MG/ML Vial 5 MG IV (11:29)
--- NOTE | 2025-02-25 11:50 | PN.SURG_ITS ---
Subjective Subjective Small bowel follow-through was attempted today however patient developed emesis shortly after contrast was instilled by NG tube. Images today show bowel gas pattern consistent with small bowel obstruction. Given these findings, I suspect the success of conservative management of his bowel obstruction would be low. As result I offered surgery. We discussed the details of the planned procedure and he wishes to proceed. This will begin shortly Objective Data Objective Data Vital Signs: Vital Signs Temp Pulse Resp BP Pulse Ox O2 Del Method 98.3 F 76 16 168/112 H 96 Room Air 02/25/25 11:16 02/25/25 11:29 02/25/25 11:16 02/25/25 11:29 02/25/25 11:16 02/25/25 11:16 Oxygen Delivery Method Room Air Weight: 108 lb 11.006 oz Body Mass Index (BMI) 16.5 Intake & Output: Intake and Output for Last 24 Hours 02/23/25 02/24/25 02/25/25 23:59 23:59 23:59 Intake Total 1569.58 / 1629.58 1090 / 1090 Output Total 200 / 800 1350 / 1350 Balance 1369.58 / 829.58 -260 / -260 Lab / Micro Data 02/25/25 06:40 02/25/25 06:40 Labs: Laboratory Results - last 24 hr 02/24/25 07:35: Phosphorus 2.7, Magnesium 2.1 02/24/25 16:35: Urine Color Yellow, Urine Clarity Turbid, Urine pH 6.0, Ur Specific [place] 1.025, Urine Protein 500 H, Urine Glucose (UA) Normal, Urine Ketones 15 H, Urine Occult Blood 250 H, Urine Nitrite Negative, Urine Bilirubin Negative, Urine Urobilinogen Normal, Ur Leukocyte Esterase 500 H, Urine RBC 25- 50 SEEN, Urine WBC >100 SEEN, Ur Squamous Epith Cells 0 SEEN, Calcium Oxalate Crystal 1+, Urine Bacteria 2+, Urine Mucus 0 SEEN 02/25/25 06:40: WBC 8.3, RBC 3.70 L, Hgb 12.5 L, Hct 35.7 L, MCV 96.5 H, MCH 33.8 H, MCHC 35.0, RDW Std Deviation 52.5 H, RDW Coeff of Rosalee 15.2 H, Plt Count 113 L, MPV 9.4, Immature Gran % (Auto) 0.500, Neut % (Auto) 80.9 H, Lymph % (Auto) 6.2 L, [place] % (Auto) 11.9 H, Eos % (Auto) 0.1, Baso % (Auto) 0.4, Absolute Neuts (auto) 6.7, Absolute Lymphs (auto) 0.51 L, Nucleated RBC % 0, Sodium 142, Potassium 3.2 L, Chloride 99, Carbon Dioxide 29.5, Anion Gap 14, BUN 21 H, Creatinine 1.51 H, Estim Creat Clear Calc 36.73 L, Est GFR (MDRD) Non-Af 53 L, BUN/Creatinine Ratio 13.7, Glucose 121 H, Calcium 9.6 Radiography Diagnostic Testing: Radiology Impression [facility] X-Ray 02/24/25 11:25 IMPRESSION: Tip of the nasogastric tube in the fundus of the stomach. Bilateral nephrostomy catheters. Bowel-gas pattern suggest adynamic/reflex ileus. Reading Location: [facility] Small Bowel X-Ray 02/25/25 08:25 IMPRESSION: On initial imaging, nasogastric tube position is unchanged. Bilateral nephrostomy tubes are unchanged in position. Multiple dilated small bowel loops are seen throughout the abdomen, predominantly centrally into the left; this is consistent with small-bowel obstruction or adynamic ileus. Some contrast is seen extending to the proximal jejunum, at the 1 hour film. Following this, the patient reportedly vomited the remaining gastric contrast. The study was then terminated by Dr. Chandler. Reading Location: [id number]
--- NOTE | 2025-02-25 11:59 | PCM.PRE.AN2 ---
ASA Classification* ASA Classification ASA Classification: 3 and E Assessment & Plan Anesthesia* Anesthesia Assessment Anesthesia Assessment: Discussed sedation and/or anesthesia options, risks, benefits, and alternatives with patient/parents/legal guardian/POA. Questions invited. The patient/parents/legal guardian/POA seems to understand and agrees to proceed with anesthesia plan. Reviewed the physical assessment, medical history, allergy history and patient home medications list prior to surgery/procedure/anesthetic and documented any changes. Performed airway and anesthesia risk assessments. Anesthesia Type Anesthesia Type: General History Source History Obtained from:: Patient, Chart and Significant Other Anesthesia Focused Assessment* Temperature: 98.3 F Pulse Rate: 76 Blood Pressure: 168/112 Respiratory Rate: 16 Pulse Ox: 96 Oxygen Delivery Method: Room Air Vital signs additional comments: NG tube clamped in right nare Airway Assessment Mouth opens: >3 cm Mallampati Score: II Teeth Condition: Loose (bottom front two teeth ) Neck Range of motion (ROM): Full ROM Focused Labs Anesthesia Preop lab: CBC WBC 8.3 K/mm3 (4.4-11.0) 02/25/25 06:40 02/25/25 RBC 3.70 M/mm3 (4.6-6.2) L 02/25/25 06:40 02/25/25 Hgb 12.5 g/dL (13.0-16.5) L 02/25/25 06:40 02/25/25 Hct 35.7 % (40-54) L 02/25/25 06:40 02/25/25 Plt Count 113 K/mm3 (150-450) L 02/25/25 06:40 02/25/25 CHEMISTRY Potassium 3.2 mmol/L (3.3-5.1) L 02/25/25 06:40 02/25/25 Sodium 142 mmol/L (133-145) 02/25/25 06:40 02/25/25 Magnesium 2.1 mg/dL (1.5-2.2) 02/24/25 07:35 02/24/25 Phosphorus 2.7 mg/dL (2.7-4.5) 02/24/25 07:35 02/24/25 BUN 21 mg/dL (4-19) H 02/25/25 06:40 02/25/25 Creatinine 1.51 mg/dL (0.70-1.20) H 02/25/25 06:40 02/25/25 Glucose 121 mg/dL (70-99) H 02/25/25 06:40 02/25/25 TSH 2.080 uIU/mL (0.358-3.740) 11/08/24 07:45 11/08/24 COAG Pre-Assessment Diagnosis/Proposed Procedure Planned Operative Procedure(s): diagnostic laparoscopy vs ex-lap Anesthesia History 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 When Was Last Pacemaker Check QUESTION #4 FULL TEXT: You/Your Family Experience fever (hyperthermia) with Anesthesia Last Oral Intake Last Oral intake: Last Oral Intake NPO since Meds taken in AM with sips of water? Meds patient instructed to take am of surgery PONV PONV - telephone sales representative: PONV - telephone sales representative Female HX of Motion Sickness HX of N/V After Surgery Non-Smoker Duration of Surgery greater than 60 minutes Number of Risk Factors PONV Score Height & Weight Height & Weight: Anesthesia: Height & Weight Height 5 ft 8.11 in 02/25/25 11:32 Weight: 49.3 kg 02/25/25 11:32 Body Mass Index (BMI) 16.5 02/25/25 06:00 Respiratory Assessment Respiratory Assessment - telephone sales representative: Respiratory Tract Infection Hx - telephone sales representative Hx Respiratory Tract Infection No 07/14/24 13:14 STOP Sleep Apnea STOP Sleep Apnea - telephone sales representative: STOP Sleep Apnea - telephone sales representative Hx Hypertension Yes 02/24/25 16:30 Hx Sleep Apnea No 02/24/25 12:38 CPAP BIPAP Do you snore loudly (louder No 02/24/25 12:38 than talking or can be heard Do you often feel tired/ No 02/24/25 12:38 fatigued/ sleepy during daytime? Has anyone observed you stop No 02/24/25 12:38 breathing during sleep? STOP Results Negative 02/24/25 12:38 QUESTION #5 FULL TEXT : Do you snore loudly (louder than talking or can be heard through closed doors)? 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 Specify any problems Hx of Preganancy in last 3 N/A 02/24/25 12:38 Months Nurse Filling Out Transfusion JDIAL 02/24/25 12:38 & Questions: Date: 02/24/25 02/24/25 12:38 Time: 12:46 02/24/25 12:38 Patient unable to answer at this time (ie. confused, unrespo /Reproduction History /Reproductive History - telephone sales representative: /Reproductive Hx- telephone sales representative Hx Now Gestational Age (in weeks): EDC: Hx Hx Para Hx Section SAB No 07/14/24 13:14 Active Medications Active Medications: Current Medications Generic Name Dose Route Start Last Admin Trade Name Freq PRN Reason Stop Dose Admin Acetaminophen 650 mg 02/24/25 12:29 Acetaminophen 325 Mg Tablet PO Q6H PRN PRN Pain 1-10 Or Fever >100.7 Enoxaparin Sodium 40 mg 02/24/25 12:29 02/24/25 13:13 Enoxaparin 40 Mg/0.4 Ml Syringe SC 40 mg Q24 FREDA Administration Hydralazine HCl 5 mg 02/25/25 08:54 02/25/25 11:29 Hydralazine 20 Mg/Ml Vial IV 5 mg Q4H PRN PRN Administration SBP >160 mmHg Protocol Lactated Ringer's 1,000 mls @ 100 mls/hr 02/25/25 11:00 02/25/25 11:10 IV 02/26/25 06:59 100 mls/hr .Q10H FREDA Administration Labetalol HCl 10 mg 02/25/25 08:54 Labetalol 20mg/4ml Syringe IV Q4H PRN PRN sbp> 180 Protocol Morphine Sulfate 2 - 4 mg 02/24/25 12:29 Morphine 2 Mg/Ml Syringe IV Q3H PRN PRN Pain Score 4-10 Prochlorperazine Edisylate 5 mg 02/24/25 12:29 Prochlorperazine 10 Mg/2 Ml Vial IV Q4H PRN PRN Breakthrough nausea/vomiting Sodium Chloride 10 - 40 ml 02/24/25 13:18 02/25/25 11:30 0.9% Saline Lock 10 Ml Syringe IV 10 ml UD PRN Administration Port-a-Cath (VAD)/R Port Flush Sodium Chloride 10 - 40 ml 02/24/25 13:18 0.9 % Nacl (Sterile) Posiflush 10 Ml IV UD PRN Port [facility] or [facility] History Hypokalemia UTI (urinary tract infection) CINV (chemotherapy-induced nausea and vomiting) Cloudy urine Bradycardia Prerenal azotemia Constipation Hypoalbuminemia Wears glasses Cancer DVT (deep venous thrombosis) Syncope Non-smoker Cataract (lens) fragments in eye following cataract surgery, bilateral Mandeep blood in stool Chronic diarrhea of unknown origin Change in bowel habit Colon cancer Home Medications ?Medication ?Instructions ?Recorded ?Last Taken ?Type sennosides 8.6 mg capsule (senna) 8.6 mg PO QHS PRN constipation 09/24/24 10/10/24 History ondansetron 8 mg disintegrating 8 mg PO Q8H PRN nausea and 11/22/24 Unknown Rx tablet vomiting #30 tabs Allergy/AdvReac Type Severity Reaction Status Date / Time No Known Allergies Allergy Verified 02/14/25 09:48 Family History Son Cancer Surgical History H/O hernia repair S/P colonoscopy H/O colectomy History of creation of ostomy Social History household members: spouse Smoking Status: Never smoker alcohol intake: never substance use type: does not use Review of Systems (Anesthesia) ROS Narrative System reviewed and no additional complaints, except as documented. Physical Exam Const alert and oriented x3 Resp normal respiratory effort Cardio regular rate Neuro oriented x3
--- NOTE | 2025-02-25 12:53 | PN.HOSP_ITS ---
Reason for Visit Reason for Visit: Diagnoses Malignant neoplasm of rectum (02/24/25) Unspecified intestinal obstruction, unspecified as to partial versus complete obstruction (02/24/25) Objective Data Objective Data Vital Signs: Vital Signs Temp Pulse Resp BP Pulse Ox O2 Del Method 98.3 F 76 16 168/112 H 96 Room Air 02/25/25 12:01 02/25/25 12:01 02/25/25 12:01 02/25/25 12:01 02/25/25 12:01 02/25/25 12:27 Oxygen Delivery Method Room Air Weight: 108 lb 11.006 oz Body Mass Index (BMI) 16.5 Intake & Output: Intake and Output for Last 24 Hours 02/23/25 02/24/25 02/25/25 23:59 23:59 23:59 Intake Total 1569.58 / 1629.58 1090 / 1090 Output Total 200 / 800 1495 / 1495 Balance 1369.58 / 829.58 -405 / -405 Medical Nutrition Assessment Dietitian: Malnutrition Criteria Met Start: 02/25/25 11:58 Freq: Status: Active Protocol: Document 02/25/25 11:59 SLA (Rec: 02/25/25 11:59 SLA [id number]) Nutrition Malnutrition Evidence of Yes Malnutrition Exists Malnutrition (severe Chronic ): Evidenced By Suboptimal Energy Intake (Severe),Weight Loss (Severe), Physical Changes (Severe) Clinical Problem Chronic Disease or Condition Related Malnutrition Etiology related to GI dysfunction and cancer causing inadequate energy intake Signs/Symptoms as evidenced by 23% unintended wt loss and po intake 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 5 Status Active Problem Recommendation Dietitian As medically able rec CCEILY to Transitional with goal of Recommendations/ regular diet d/t signs and symptoms of malnutrition Changes As medically able, rec 4 oz ensure plus high protein 4x /day w/ medpass for increased nutrition if consumed - prefers chocolate flavor Lab / Micro Data 02/25/25 06:40 02/25/25 06:40 Labs: Laboratory Results - last 24 hr 02/24/25 07:35: Phosphorus 2.7, Magnesium 2.1 02/24/25 16:35: Urine Color Yellow, Urine Clarity Turbid, Urine pH 6.0, Ur Specific [place] 1.025, Urine Protein 500 H, Urine Glucose (UA) Normal, Urine Ketones 15 H, Urine Occult Blood 250 H, Urine Nitrite Negative, Urine Bilirubin Negative, Urine Urobilinogen Normal, Ur Leukocyte Esterase 500 H, Urine RBC 25- 50 SEEN, Urine WBC >100 SEEN, Ur Squamous Epith Cells 0 SEEN, Calcium Oxalate Crystal 1+, Urine Bacteria 2+, Urine Mucus 0 SEEN 02/25/25 06:40: WBC 8.3, RBC 3.70 L, Hgb 12.5 L, Hct 35.7 L, MCV 96.5 H, MCH 33.8 H, MCHC 35.0, RDW Std Deviation 52.5 H, RDW Coeff of Rosale[place] 15.2 H, Plt Count 113 L, MPV 9.4, Immature Gran % (Auto) 0.500, Neut % (Auto) 80.9 H, Lymph % (Auto) 6.2 L, [place] % (Auto) 11.9 H, Eos % (Auto) 0.1, Baso % (Auto) 0.4, Absolute Neuts (auto) 6.7, Absolute Lymphs (auto) 0.51 L, Nucleated RBC % 0, Sodium 142, Potassium 3.2 L, Chloride 99, Carbon Dioxide 29.5, Anion Gap 14, BUN 21 H, Creatinine 1.51 H, Estim Creat Clear Calc 36.73 L, Est GFR (MDRD) Non-Af 53 L, BUN/Creatinine Ratio 13.7, Glucose 121 H, Calcium 9.6 Radiography Diagnostic Testing: Radiology Impression Small Bowel X-Ray 02/25/25 08:25 IMPRESSION: On initial imaging, nasogastric tube position is unchanged. Bilateral nephrostomy tubes are unchanged in position. Multiple dilated small bowel loops are seen throughout the abdomen, predominantly centrally into the left; this is consistent with small-bowel obstruction or adynamic ileus. Some contrast is seen extending to the proximal jejunum, at the 1 hour film. Following this, the patient reportedly vomited the remaining gastric contrast. The study was then terminated by Dr. Chandler. Reading Location: [place] [address] Physical Exam Narrative Seen and examined Patient still has NG tube. Patient vomited shortly after oral contrast was pulled through NG tube. Imaging showed small bowel obstruction therefore plan for proceeding with surgery Physical exam General: Alert, Oriented x3, Cooperative HEENT: Atraumatic, PERRLA, EOMI, Normocephalic. Oral: Oral mucosa dry no Gingival or Mucosal Lesions/ Ulcerations Neck: Supple, No JVD, Negative Carotid Bruits Chest wall/Lungs: Air entry diminished in bilateral lung bases. No crepitation/rhonchi Cardiovascular: Irregular rhythm normal S1,S2, systolic murmur Abdomen: Bowel Sounds hyper, soft, Non Tender, colostomy. No significant fecal content in colostomy bag. : Bilateral nephrostomy tube, dark urine. No renal angle tenderness. No suprapubic tenderness. Extremities: No edema, Capillary Refill Less than 3 Seconds Skin: No rashes, No breakdown Musculoskeletal: No Tenderness to Palpation of Joints or Extremities Neurological: Cranial nerves II-XII grossly intact, DTR 2+/4. No acute focal neurological deficit. Psych/Mental Status: Flat affect Assessment & Plan Assessment/Plan (1) SBO (small bowel obstruction): (2) Malignant neoplasm of rectum: PLAN: Plan This 59-year-old gentleman is being admitted for small bowel obstruction. Patient has history of rectal cancer status post APR. He had chemotherapy and radiation 4 months ago and then last chemo about 10 days ago. 1. Small bowel obstruction with history of colorectal cancer status post APR and colostomy: Patient is being admitted MedSurg floor. IV fluid Ringer lactate at 100 mL/h. NG suction at low intermittent wall suction. Monitor bowel emptying. Surgery Dr. Chandler is consulted. CT abdomen images shows multiple distended small bowel loops with largest measuring 3.7 cm. 02/25: Small bowel series shows contrast in the stomach with collection in duodenum and proximal jejunum at 1 hour. Multiple dilated small bowel loops predominantly in the left side. As per surgeon, there is less chance of conservative management therefore surgery was recommended and patient agreed. Plan for surgery today. Mild hypokalemia, electrolyte replacement ordered. 2. CA rectum: He follows Dr. Ho. Had C8 FOLFOX on 02/14/2025. Prior to that he finished chemotherapy on 08/13/2024 and radiation on 08/17/2024. 3. Bilateral hydronephrosis status post bilateral nephrostomy in September 2024 in [facility]: Urine in bilateral nephrostomy bag is dark-colored. IV fluid hydration. CT scan does not show hydronephrosis 4. History of DVT in the past: Unclear about it location but patient said it was in right thigh. Unclear about the reason why did not complete full course of anticoagulation but he said he had Lovenox and aspirin during hospitalization in [facility]. 5. Irregular rhythm: Twelve-lead EKG shows sinus rhythm with PAC, LAD at 85 bpm.Denies history of A-fib. 6. DVT prophylaxis, high risk: Lovenox 40 mg subcu daily Living will/advanced directive/end of life care: Patient does not have living will or advanced directive but in the process of making living well. After discussion of benefits/risks procedures involved with full code, DNR CC arrest and DNR CC, the patient and his opted for full code Patient does want artificial life support including intubation, tube feed, ventilator and/chest compression, central venous catheter, vasopressor and DC shock if needed Total time spent in [id number] encounter in discussion of advanced directive 17 minutes. Laboratory Results 02/24/25 07:35: Phosphorus 2.7, Magnesium 2.1 02/24/25 16:35: Urine Color Yellow, Urine Clarity Turbid, Urine pH 6.0, Ur Specific [place] 1.025, Urine Protein 500 H, Urine Glucose (UA) Normal, Urine Ketones 15 H, Urine Occult Blood 250 H, Urine Nitrite Negative, Urine Bilirubin Negative, Urine Urobilinogen Normal, Ur Leukocyte Esterase 500 H, Urine RBC 25- 50 SEEN, Urine WBC >100 SEEN, Ur Squamous Epith Cells 0 SEEN, Calcium Oxalate Crystal 1+, Urine Bacteria 2+, Urine Mucus 0 SEEN 02/25/25 06:40: WBC 8.3, RBC 3.70 L, Hgb 12.5 L, Hct 35.7 L, MCV 96.5 H, MCH 33.8 H, MCHC 35.0, RDW Std Deviation 52.5 H, RDW Coeff of Rosale[place] 15.2 H, Plt Count 113 L, MPV 9.4, Immature Gran % (Auto) 0.500, Neut % (Auto) 80.9 H, Lymph % (Auto) 6.2 L, [place] % (Auto) 11.9 H, Eos % (Auto) 0.1, Baso % (Auto) 0.4, Absolute Neuts (auto) 6.7, Absolute Lymphs (auto) 0.51 L, Nucleated RBC % 0, Sodium 142, Potassium 3.2 L, Chloride 99, Carbon Dioxide 29.5, Anion Gap 14, BUN 21 H, Creatinine 1.51 H, Estim Creat Clear Calc 36.73 L, Est GFR (MDRD) Non-Af 53 L, BUN/Creatinine Ratio 13.7, Glucose 121 H, Calcium 9.6 Clinical Impression(s) from Imaging Studies Abdomen CT 02/24/25 07:20 IMPRESSION: 1. Multiple distended small bowel loops with differential air-fluid levels measuring up to 3.7 cm, concerning for small bowel obstruction with possible transition in the right lower abdominal quadrant. 2. Bladder wall thickening which may be due to the decompressed state of the bladder or due to cystitis. 3. Small esophageal hiatal hernia. 4. Inguinal hernias, bilaterally. Reading Location: [facility] X-Ray 02/24/25 11:25 IMPRESSION: Tip of the nasogastric tube in the fundus of the stomach. Bilateral nephrostomy catheters. Bowel-gas pattern suggest adynamic/reflex ileus. Reading Location: [facility] Charges/Coding Visit Charges Inpatient E&M: 31057 Subs Hosp L2
[2025-02-25] MEDS: Cefazolin 2 GM in 0.9% Normal Saline (100mL Bag) 100 ML IV (13:05)
--- NOTE | 2025-02-25 13:52 | CASEMGMT ---
FERNANDO FISH Assessment: Face to Face with pt for initial transition planning/care coordination assessment. RN POLINA introduced self and role at [facility], pt voices understanding and consents to assessment. Pt sitting up in bed in no distress, pt mom in the room, pt agreeable to answering questions with Pt mom present. Pt is A&O x4 and answers all questions appropriately at this time. Care providers, pharmacy, and demographics verified/updated. Strata: 1 Admitting Dx: D&C PCP: None, Denies wanting a list of local providers Specialists: Denies Preferred Pharmacy: [facility] Insurance: [employer] Prescription Benefit: yes LNOK: , Lauro Living Arrangements: Pt lives with and child in a 2 story home with 3 steps to enter. ADLs: Pt reports I with ADLs and IADLs. Transportation: Pt drives self and denies concerns with transportation. DME: Denies DME HHC/SNF: Denies Hx of. Pt states no concerns with going home at time of dc. Pt states no further concerns/needs. CM to follow. Advised pt to ask CM if any further question/concerns/needs arise, voices understanding. Pt Goal: Home Plan: Home with family support [address] CM
[2025-02-25] MEDS: 0.9% Normal Saline (Pres. free 10 ML Vial (15:31)
[2025-02-25] MEDS: Bupivacaine 0.25% 30 ML Vial (15:31)
[2025-02-25] MEDS: BUPIVACAINE LIPOSOME/PF 20 ML VIAL OPERA.SITE (15:31)
--- NOTE | 2025-02-25 16:39 | PCM.POST.ANE ---
Anesthesia: Postop Eval I Current Vital Signs Temperature: 97.1 F Pulse Rate: 67 Blood Pressure: 163/97 Respiratory Rate: 16 Pulse Ox: 100 Oxygen Delivery Method: Room Air Assessment Airway patent: Yes Spontaneous unlabored respirations: Yes Mental status: Asleep nausea: No Vomiting: No Anesthesia Complication: No Fluid Hydration Crystalloid volume administer (ml): 2,400 Total IV fluid infused: 2,400 Progress Note Anesthesia document: Postop Eval 1 completed: Yes
--- NOTE | 2025-02-25 16:45 | RAD_ITS ---
PROCEDURE: ABDOMEN SINGLE VIEW (PORTABLE) 02/25/2025 REASON FOR EXAM: NG PLACEMENT TECHNIQUE: Single view abdomen. COMPARISON: CT abdomen and pelvis 02/24/2025 FINDINGS: Bowel gas: Nonobstructive bowel gas pattern. Feeding tube with the side port above the diaphragm with the tip in the gastric cardia Calcifications: Multiple surgical james overlying the midline. Bones: The bones are unremarkable. Other: Bilateral percutaneous nephroureteral stents. RAD/Abdomen Single View (Portable) IMPRESSION: See above [facility]
--- NOTE | 2025-02-25 17:12 | OP.PCM_ITS ---
Problems Associated Problem List Diagnoses (1) SBO (small bowel obstruction): Multi Select Codes Digestive Digestive CPT Codes: 86692 Freeing of bowel adhesion, 80854 Exploration of abdomen and Other Procedure See Notes (09659 -- loop illeostomy ) Endocrine,Ocular,Nerv, Auditory Endocrine,Ocular,Nerv, Auditory CPT Codes: Other Procedure See Report (37490 bilateral piyush block ) Operative Report (Standard) Operative Information Date of Procedure: 02/25/25 Pre-Operative Diagnosis: Small bowel obstruction Post-Operative Diagnosis: Small bowel obstruction secondary to adhesions/radiation to the pelvis Surgery/Procedure Performed: 1. Diagnostic laparoscopy 2. Exploratory laparotomy 3. Extensive lysis of adhesions 4. Diverting loop jejunostomy 5. Bilateral tap block stock wetter: Yes Tig Welder: Omero Lindsay Tasks completed by court assistant: Closing and Retracting Additional assistant professor of business?: Yes Additional Office Administration #2: Eber Leon Tasks completed by assistant professor of business #2: Other (dissecting tissue ) Type of Anesthesia: General and Local RN Documented Start/Stop Times: Operation Date: 02/25/25 13:00 Case Time Into Pre-Op 02/25/25 12:07 Out of Pre-Op 02/25/25 12:39 Anesthesia Start 02/25/25 12:43 Into Room 02/25/25 12:43 Procedure Start 02/25/25 13:15 Procedure End 02/25/25 16:20 Anesthesia End 02/25/25 16:34 Out of Room 02/25/25 16:34 Into Recovery 02/25/25 16:35 Procedure Start Time: 13:15 Procedure Stop Time: 16:20 Select all DRAINS/GRAFTS/IMPLANTS that apply: None Special Medications: Ancef IV Estimated Blood Loss: 80 mL Specimen collected: No Description of surgery: The patient is a 59-year-old male with a history of rectal cancer treated with surgery, radiation and chemotherapy. He just recently finished chemotherapy. He presented to [facility] yesterday with bowel obstruction. He had had a previous bowel obstruction in September which resolved however he presented again with a bowel obstruction. We attempted a small bowel follow- through. He did not tolerate this study and quickly threw up the contrast. His x-rays were quite impressive this morning. I did not feel that his bowel
--- NOTE | 2025-02-25 17:12 | PCM.OPRPT ---
Problems Associated Problem List Diagnoses (1) SBO (small bowel obstruction): Multi Select Codes Digestive Digestive CPT Codes: 24625 Freeing of bowel adhesion, 11612 Exploration of abdomen and Other Procedure See Notes (86820 -- loop illeostomy ) Endocrine,Ocular,Nerv, Auditory Endocrine,Ocular,Nerv, Auditory CPT Codes: Other Procedure See Report (49352 bilateral piyush block ) Operative Report (Standard) Operative Information Date of Procedure: 02/25/25 Pre-Operative Diagnosis: Small bowel obstruction Post-Operative Diagnosis: Small bowel obstruction secondary to adhesions/radiation to the pelvis Surgery/Procedure Performed: 1. Diagnostic laparoscopy 2. Exploratory laparotomy 3. Extensive lysis of adhesions 4. Diverting loop jejunostomy 5. Bilateral tap block furnace attendant: Yes Fine Hairer: Omero Lindsay Tasks completed by primary teaching assistant: Closing and Retracting Additional environmental emergencies assistant?: Yes Additional Clinic Md Associate #2: Eber Leon Tasks completed by environmental emergencies assistant #2: Other (dissecting tissue ) Type of Anesthesia: General and Local RN Documented Start/Stop Times: Operation Date: 02/25/25 13:00 Case Time Into Pre-Op 02/25/25 12:07 Out of Pre-Op 02/25/25 12:39 Anesthesia Start 02/25/25 12:43 Into Room 02/25/25 12:43 Procedure Start 02/25/25 13:15 Procedure End 02/25/25 16:20 Anesthesia End 02/25/25 16:34 Out of Room 02/25/25 16:34 Into Recovery 02/25/25 16:35 Procedure Start Time: 13:15 Procedure Stop Time: 16:20 Select all DRAINS/GRAFTS/IMPLANTS that apply: None Special Medications: Ancef IV Estimated Blood Loss: 80 mL Specimen collected: No Description of surgery: The patient is a 59-year-old male with a history of rectal cancer treated with surgery, radiation and chemotherapy. He just recently finished chemotherapy. He presented to [facility] yesterday with bowel obstruction. He had had a previous bowel obstruction in September which resolved however he presented again with a bowel obstruction. We attempted a small bowel follow-through. He did not tolerate this study and quickly threw up the contrast. His x-rays were quite impressive this morning. I did not feel that his bowel obstruction would resolve without surgical intervention. I offered the option of surgery and he wished to proceed. He was brought to the operating room today following informed consent. Preoperative antibiotics were given and a timeout was performed. He was placed supine on the operative table with arms comfortably tucked at his side. Sterile drapes were placed around his left-sided colostomy. The abdomen was then prepped and draped in the usual sterile manner. A diagnostic laparoscopy was performed first. A 5 mm incision was made in the right upper quadrant. Through this a 5 mm trocar was placed optically. This was placed without incident. A 5 mm 0 degree scope was inserted. There were no signs of bowel or vascular injury. Numerous intra-abdominal adhesions were noted. I was able to place another 5 mm trocar in the epigastric region for the camera. I then used a harmonic scalpel to begin taking down adhesions along the midline. There were significant adhesions present especially in the right lower quadrant. We then opted to perform a midline laparotomy. #15 blade was then used to make the skin incision. Bovie electrocautery was then used to dissect down through subcutaneous tissue. The abdomen was entered without difficulty. Bell retractors were used to retract. There is considerable adhesions of the omentum down into the pelvis. This was freed up thus exposing the small bowel. There were numerous loops of small bowel that were dilated. I was able to traced the bowel proximally. The proximal bowel from about the distal jejunum to the ligament of Treitz was surprisingly free of adhesions however once the small bowel dove into the pelvis there was considerable amount of very thick dense chronic fibrosed adhesions. All of these loops of small bowel were very dilated. A considerable amount of time was spent meticulously trying to lyse some of these adhesions and develop a suitable plane to find the point of transition. I asked Dr. Leon, one of my partners, to assist as well. Together we were able to free up quite a bit of the pelvic adhesions however we really could not effectively and safely find the exact transition point. We were basically dissecting these dilated loops of bowel off of the bladder. Most likely the point of transition was involving the terminal ileum as this seemed to dive quite deeply into the pelvis to the point where we really could not even reach the full extent of the small bowel using finger dissection this would have been very blind finger dissection to free this up. We did note the very distal terminal ileum as it met the cecum and this was completely encased with scar tissue as well. Again this is most likely related to previous radiation to the pelvis. At this point we did not feel that it was safe to try to free up this loop of bowel blindly. It was decided to do a diverting loop using small bowel just proximal to the point of transition. A skin iroquois was created in the right lower quadrant. The fascia was incised in a cruciate manner using electrocautery. A loop of small bowel was brought up. I suspect this is distal jejunum that was brought up. This was secured with a Kelly temporarily. The abdomen was then copiously irrigated. Hemostasis was very good the abdomen was irrigated and suctioned dry. A bilateral tap block was performed using a total of 100 cc. the fascia was then closed using a #1 looped PDS x 2. 3-0 Vicryl and skin james were used for closure. Once closed, the ostomy was then matured using 3-0 Vicryl. This was performed over a plastic support leigh. Appliances were applied to both ostomies a Mepilex dressing was applied along the midline incision. He was awakened from anesthesia and taken to recovery in good condition.. Surgical Findings: Extensive intra-abdominal adhesions especially in the deep pelvis likely secondary to pelvic radiation-unable to relieve small bowel obstruction. Diverting loop jejunostomy performed Complications Complications: No Admit VTE Documentation VTE Present on Admission: No VTE Mechan Device Prophylaxis: SCD's VTE Pharm Prophylaxis ordered?: Yes
--- NOTE | 2025-02-25 17:25 | POSTOPAN2_ITS ---
Anesthesia Postop Eval I Sum Postop Eval Completion status Anesthesia document: Postop Eval 1 completed: Yes Anesthesia Postop Eval I Summary Anesthesia Postop Eval I Summary: Anesthesia Postop Eval I: Assessment Summary Airway patent Yes 02/25/25 16:39 [email or web address] Spontaneous unlabored Yes 02/25/25 16:39 [email or web address] respirations Mental status Asleep 02/25/25 16:39 [email or web address] nausea No 02/25/25 16:39 [email or web address] Vomiting No 02/25/25 16:39 [email or web address] Anesthesia Postop Eval I: Fluid Summary Crystalloid volume administer 2,400 02/25/25 16:39 [email or web address] (ml) Colloids volume administered ( ml) Blood Product volume administered (ml) Total IV fluid infused 2,400 02/25/25 16:39 [email or web address] Anesthesia Postop Eval I: Summary Notes Anesthesia Complication No 02/25/25 16:39 [email or web address] Anesthesia Complication Comment: Post-operative progress note Anesthesia: Postop Eval II Evaluation Mental status: Awake and Calm Pain Level: 5 nausea: No Vomiting: No
--- NOTE | 2025-02-25 17:25 | PCM.POSTANE2 ---
Anesthesia Postop Eval I Sum Postop Eval Completion status Anesthesia document: Postop Eval 1 completed: Yes Anesthesia Postop Eval I Summary Anesthesia Postop Eval I Summary: Anesthesia Postop Eval I: Assessment Summary Airway patent Yes 02/25/25 16:39 INSURANCE [email or web address] Spontaneous unlabored Yes 02/25/25 16:39 INSURANCE [email or web address] respirations Mental status Asleep 02/25/25 16:39 INSURANCE [email or web address] nausea No 02/25/25 16:39 INSURANCE [email or web address] Vomiting No 02/25/25 16:39 INSURANCE [email or web address] Anesthesia Postop Eval I: Fluid Summary Crystalloid volume administer 2,400 02/25/25 16:39 INSURANCE [email or web address] (ml) Colloids volume administered ( ml) Blood Product volume administered (ml) Total IV fluid infused 2,400 02/25/25 16:39 INSURANCE [email or web address] Anesthesia Postop Eval I: Summary Notes Anesthesia Complication No 02/25/25 16:39 INSURANCE [email or web address] Anesthesia Complication Comment: Post-operative progress note Anesthesia: Postop Eval II Evaluation Mental status: Awake and Calm Pain Level: 5 nausea: No Vomiting: No
[2025-02-26 02:30] VITALS: BP 156/102; PULSE 82; RESP 16; TEMP 36.8; O2SAT 96
[2025-02-26 05:51] VITALS: BP 143/100; PULSE 89; RESP 16; TEMP 36.8; O2SAT 96
[2025-02-26 06:54] LABS: Absolute Neutrophil Count 5.6 X10^3/uL (2.0-7.7); Basophil# 0.01 X10^3/uL; Basophil% 0.2 % (0-1); Hematocrit 33.5 % (40-54); Hemoglobin 11.5 g/dL (13.0-16.5); Lymphocyte % 3.2 % (19-41); Mean Corp Hgb Conc 34.3 g/dL (32-36); Mean Corpuscular Hgb 33.7 pg (27.0-32.0); Mean Corpuscular Volume 98.2 fL (80-94); Mean Platelet Vol. 9.7 fl (6.2-12.0); Monocyte# 0.55 X10^3/uL; Monocyte% 8.7 % (0-10); NRBC Flagged by Analyzer 0 % (0-5); Neutrophil # 5.56 X10^3/uL (2.7-7.7); Neutrophil % 87.7 % (47-70); POSITIVE DIFFERENTIAL YES; Platelet Count 102 K/mm3 (150-450); RBC Distribution Width SD 55.8 fl (35.1-43.9); Red Blood Count 3.41 M/mm3 (4.6-6.2); White Blood Count 6.3 K/mm3 (4.4-11.0)
[2025-02-26 07:16] LABS: Anion Gap 11 (5-15); BUN 25 mg/dL (4-19); BUN/Creat Ratio 14.9 RATIO (10-20); Calcium,Total 8.7 mg/dL (7.6-11.0); Carbon Dioxide 28.1 mmol/L (21.0-32.0); Chloride 104 mmol/L (98-108); Creatinine, Serum 1.67 mg/dL (0.70-1.20); EST Glomerular Filtration Rate 47 (>60); Estimated Creatinine Clearance 33.21 ml/min (50-250); Glucose 158 mg/dL (70-99); Potassium 3.6 mmol/L (3.3-5.1); Sodium Level 143 mmol/L (133-145)
[2025-02-26 08:00] VITALS: BMI 16.5
[2025-02-26 08:30] VITALS: PULSE 97; RESP 18; O2SAT 96
[2025-02-26 08:58] VITALS: BP 150/90; PULSE 97; RESP 18; TEMP 36.6; O2SAT 96
[2025-02-26] MEDS: Lactated Ringers 1,000 ML 100 ML IV (09:26)
--- NOTE | 2025-02-26 10:21 | PCM.PN.SRG ---
Subjective Subjective Patient seen and examined during AM rounds. He is found resting in bed. He reports that his pain is manageable. He has number of questions related to his procedure which were largely deferred to the operative team. He states he has a slight appetite and denies any nausea or bloating. He reports that nursing has been concerned about the appearance of his ostomy. Objective Data Objective Data Vital Signs: Vital Signs Temp Pulse Resp BP Pulse Ox O2 Del Method O2 Flow Rate 98 F 97 18 150/90 H 96 Room Air 2 02/26/25 08:58 02/26/25 08:58 02/26/25 08:58 02/26/25 08:58 02/26/25 08:58 02/26/25 08:58 02/25/25 17:00 Oxygen Flow Rate (L/min) 2 Oxygen Delivery Method Room Air Weight: 108 lb 11.006 oz Body Mass Index (BMI) 16.5 Intake & Output: Intake and Output for Last 24 Hours 02/24/25 02/25/25 02/26/25 23:59 23:59 23:59 Intake Total 1569.58 / 1629.58 4400 / 4400 1410 / 1410 Output Total 200 / 800 2480 / 2480 1185 / 1185 Balance 1369.58 / 829.58 1920 / 1920 225 / 225 Medical Nutrition Assessment Dietitian: Malnutrition Criteria Met Start: 02/25/25 11:58 Freq: Status: Active Protocol: Document 02/25/25 11:59 SLA (Rec: 02/25/25 11:59 SLA [id number]) Nutrition Malnutrition Evidence of Yes Malnutrition Exists Malnutrition (severe Chronic ): Evidenced By Suboptimal Energy Intake (Severe),Weight Loss (Severe), Physical Changes (Severe) Clinical Problem Chronic Disease or Condition Related Malnutrition Etiology related to GI dysfunction and cancer causing inadequate energy intake Signs/Symptoms as evidenced by 23% unintended wt loss and po intake 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 5 Status Active Problem Recommendation Dietitian As medically able rec CECILY to Transitional with goal of Recommendations/ regular diet d/t signs and symptoms of malnutrition Changes As medically able, rec 4 oz ensure plus high protein 4x /day w/ medpass for increased nutrition if consumed - prefers chocolate flavor Lab / Micro Data 02/26/25 06:42 02/26/25 06:42 Labs: Laboratory Results - last 24 hr 02/26/25 06:42: WBC 6.3, RBC 3.41 L, Hgb 11.5 L, Hct 33.5 L, MCV 98.2 H, MCH 33.7 H, MCHC 34.3, RDW Std Deviation 55.8 H, RDW Coeff of Rosalee 16.0 H, Plt Count 102 L, MPV 9.7, Immature Gran % (Auto) 0.200, Neut % (Auto) 87.7 H, Lymph % (Auto) 3.2 L, [place] % (Auto) 8.7, Eos % (Auto) 0.0, Baso % (Auto) 0.2, Absolute Neuts (auto) 5.6, Absolute Lymphs (auto) 0.20 L, Nucleated RBC % 0, Sodium 143, Potassium 3.6, Chloride 104, Carbon Dioxide 28.1, Anion Gap 11, BUN 25 H, Creatinine 1.67 H, Estim Creat Clear Calc 33.21 L, Est GFR (MDRD) Non-Af 47 L, BUN/Creatinine Ratio 14.9, Glucose 158 H, Calcium 8.7 Radiography Diagnostic Testing: Radiology Impression Small Bowel X-Ray 02/25/25 08:25 IMPRESSION: On initial imaging, nasogastric tube position is unchanged. Bilateral nephrostomy tubes are unchanged in position. Multiple dilated small bowel loops are seen throughout the abdomen, predominantly centrally into the left; this is consistent with small-bowel obstruction or adynamic ileus. Some contrast is seen extending to the proximal jejunum, at the 1 hour film. Following this, the patient reportedly vomited the remaining gastric contrast. The study was then terminated by Dr. Chandler. Reading Location: [facility] K[facility] X-Ray 02/25/25 16:45 IMPRESSION: See above Reading Location: [facility] Physical Exam Const oriented x3 and no apparent distress Resp normal respiratory effort GI GI Narrative: Nasogastric tube with aspirate of a modest amount of watery gastric contents that are nonbilious. Abdomen is nondistended. Right lower quadrant ileostomy is in mild ischemic appearance but mucosa appears viable. There is expected watery thin output to the appliance. The patient's colostomy remains healthy and well-perfused but there is no output in that appliance. Narrative: Urinary collection bags for PERC nephrostomy tubes are examined in the out blood on the right side appears slightly brown in character Assessment & Plan Assessment/Plan (1) SBO (small bowel obstruction): PLAN: The patient is a 59-year-old male with a history of rectal cancer status post a bowel resection with end colostomy. He is postoperative day 1 from diagnostic laparoscopy converted to exploratory laparotomy with loop jejunostomy due to intraoperative finding of plastered small bowel in the pelvis. Patient has had output via his new enterostomy and minimal output from his nasogastric tube. Still, given his presentation with obstruction I would like to proceed cautiously and have recommended a clamp trial. Patient was carefully instructed on the process for this clamp trial and the need to minimize the risk for aspiration. We will await the results of his return to suction and tentatively plan to pull his nasogastric tube and begin a diet. Pain control at this point appears adequate and patient is encouraged to mobilize as he is able to given his numerous drains and lines. Will closely watch his blood pressure to try to ensure that his mildly ischemic stoma is optimized. Lastly, I continued patient's IV fluids for the interim as his creatinine experiences slight increase from yesterday and he is not yet approved for a liquid diet. Hari Paredes MD General Surgery Endocrine Surgery Pager: [facility] [address] [place] [address], [facility], [address] [place] [address] Office: [phone] Charges/Coding Visit Charges Inpatient E&M: 80566 Subs Hosp L2
--- NOTE | 2025-02-26 11:13 | CASEMGMT ---
Social Work Pt had indicated he would like additional information for LW/POA. SW met w/pt, and also present. Pt does not want to complete documents at this time but is open to additional information. SW provided the information to the pt, and let him know if he would like to complete the documents while he is here, to let his nurse know and a SW can come back in to assist in completing the documents. Pt states understanding. ADINA Murray
[2025-02-26] MEDS: Enoxaparin 40 MG/0.4 ML Syringe SC (11:33)
--- NOTE | 2025-02-26 12:31 | PCM.PN.HOSP ---
Reason for Visit Reason for Visit: Diagnoses Malignant neoplasm of rectum (02/24/25) Unspecified intestinal obstruction, unspecified as to partial versus complete obstruction (02/24/25) Objective Data Objective Data Vital Signs: Vital Signs Temp Pulse Resp BP Pulse Ox O2 Del Method O2 Flow Rate 98 F 97 18 150/90 H 96 Room Air 2 02/26/25 08:58 02/26/25 08:58 02/26/25 08:58 02/26/25 08:58 02/26/25 08:58 02/26/25 08:58 02/25/25 17:00 Oxygen Flow Rate (L/min) 2 Oxygen Delivery Method Room Air Weight: 108 lb 11.006 oz Body Mass Index (BMI) 16.5 Intake & Output: Intake and Output for Last 24 Hours 02/24/25 02/25/25 02/26/25 23:59 23:59 23:59 Intake Total 1569.58 / 1629.58 4400 / 4400 1410 / 1410 Output Total 200 / 800 2480 / 2480 1635 / 1635 Balance 1369.58 / 829.58 1920 / 1920 -225 / -225 Medical Nutrition Assessment Dietitian: Malnutrition Criteria Met Start: 02/25/25 11:58 Freq: Status: Active Protocol: Document 02/25/25 11:59 SLA (Rec: 02/25/25 11:59 SLA ..25.7) Nutrition Malnutrition Evidence of Yes Malnutrition Exists Malnutrition (severe Chronic ): Evidenced By Suboptimal Energy Intake (Severe),Weight Loss (Severe), Physical Changes (Severe) Clinical Problem Chronic Disease or Condition Related Malnutrition Etiology related to GI dysfunction and cancer causing inadequate energy intake Signs/Symptoms as evidenced by 23% unintended wt loss and 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 5 Status Active Problem Recommendation Dietitian As medically able rec CECILY to Transitional with goal of Recommendations/ regular diet d/t signs and symptoms of malnutrition Changes As medically able, rec 4 oz ensure plus high protein 4x /day w/ medpass for increased nutrition if consumed - prefers chocolate flavor Lab / Micro Data 02/26/25 06:42 02/26/25 06:42 Labs: Laboratory Results - last 24 hr 02/26/25 06:42: WBC 6.3, RBC 3.41 L, Hgb 11.5 L, Hct 33.5 L, MCV 98.2 H, MCH 33.7 H, MCHC 34.3, RDW Std Deviation 55.8 H, RDW Coeff of Rosalee 16.0 H, Plt Count 102 L, MPV 9.7, Immature Gran % (Auto) 0.200, Neut % (Auto) 87.7 H, Lymph % (Auto) 3.2 L, [place] % (Auto) 8.7, Eos % (Auto) 0.0, Baso % (Auto) 0.2, Absolute Neuts (auto) 5.6, Absolute Lymphs (auto) 0.20 L, Nucleated RBC % 0, Sodium 143, Potassium 3.6, Chloride 104, Carbon Dioxide 28.1, Anion Gap 11, BUN 25 H, Creatinine 1.67 H, Estim Creat Clear Calc 33.21 L, Est GFR (MDRD) Non-Af 47 L, BUN/Creatinine Ratio 14.9, Glucose 158 H, Calcium 8.7 Radiography Diagnostic Testing: Radiology Impression KUB X-Ray 02/25/25 16:45 IMPRESSION: See above Reading Location: [facility] Physical Exam Narrative Seen and examined Patient still has NG tube. Patient had surgery yesterday. Has a right-sided diverting jejunostomy. Colostomy bags have been emptied twice. Now, the patient has 2 colostomies and 2 bilateral nephrostomy tubes in each kidney Physical exam General: Alert, Oriented x3, Cooperative HEENT: Atraumatic, PERRLA, EOMI, Normocephalic. Oral: Oral mucosa dry no Gingival or Mucosal Lesions/ Ulcerations Neck: Supple, No JVD, Negative Carotid Bruits Chest wall/Lungs: Air entry diminished in bilateral lung bases. No crepitation/rhonchi Cardiovascular: Irregular rhythm normal S1,S2, systolic murmur Abdomen: Bowel Sounds hyper, soft, Non Tender, colostomy. No significant fecal content in colostomy bag. Jejunostomy has bilious drainage emptied twice. : Bilateral nephrostomy tube, dark urine. No renal angle tenderness. No suprapubic tenderness. Extremities: No edema, Capillary Refill Less than 3 Seconds Skin: No rashes, No breakdown Musculoskeletal: No Tenderness to Palpation of Joints or Extremities Neurological: Cranial nerves II-XII grossly intact, DTR 2+/4. No acute focal neurological deficit. Psych/Mental Status: Flat affect Assessment & Plan Assessment/Plan (1) SBO (small bowel obstruction): (2) Malignant neoplasm of rectum: PLAN: Plan This 59-year-old gentleman is being admitted for small bowel obstruction. Patient has history of rectal cancer status post APR. He had chemotherapy and radiation 4 months ago and then last chemo about 10 days ago. 1. Small bowel obstruction with history of colorectal cancer status post APR and colostomy: Patient is being admitted Medr floor. IV fluid Ringer lactate at 100 mL/h. NG suction at low intermittent wall suction. Monitor bowel emptying. Surgery Dr. Chandler is consulted. CT abdomen images shows multiple distended small bowel loops with largest measuring 3.7 cm. 02/25: Small bowel series shows contrast in the stomach with collection in duodenum and proximal jejunum at 1 hour. Multiple dilated small bowel loops predominantly in the left side. As per surgeon, there is less chance of conservative management therefore surgery was recommended and patient agreed. Plan for surgery today. Mild hypokalemia, electrolyte replacement ordered. 02/26: Patient had small bowel obstruction secondary to adhesions/radiation to the pelvis. Diagnostic laparoscopy converted to exploratory laparotomy with extensive lysis of adhesions and diverting loop jejunostomy on 02/25/2025. Jejunostomy is working good and had bags emptied twice with bilious content. 2. CA rectum: He follows Dr. Ho. Had C8 FOLFOX on 02/14/2025. Prior to that he finished chemotherapy on 08/13/2024 and radiation on 08/17/2024. 3. Bilateral hydronephrosis status post bilateral nephrostomy in September 2024 in [facility]: Urine in bilateral nephrostomy bag is dark-colored. IV fluid hydration. CT scan does not show hydronephrosis 4. History of DVT in the past: Unclear about it location but patient said it was in right thigh. Unclear about the reason why did not complete full course of anticoagulation but he said he had Lovenox and aspirin during hospitalization in [facility]. 5. Irregular rhythm: Twelve-lead EKG shows sinus rhythm with PAC, LAD at 85 bpm.Denies history of A-fib. 6. Chronic anemia: Slight drop in hemoglobin from baseline 12.5 g%. 11.5/33.5%. Mild chronic thrombocytopenia platelet count around 110,000. 7. Mild INOCENCIA: Baseline creatinine around 1.33 in January 2025. Creatinine went from admission 1.39-1.67 therefore qualifies for INOCENCIA. IV fluid ordered, normal saline plus KCl ordered 150 mL/h to compensate jejunostomy loss, high output fistula. NG tube 650 mL. Jejunostomy 2560 mL. DVT prophylaxis, high risk: Lovenox 40 mg subcu daily Living will/advanced directive/end of life care: Patient does not have living will or advanced directive but in the process of making living well. After discussion of benefits/risks procedures involved with full code, DNR CC arrest and DNR CC, the patient and his opted for full code Patient does want artificial life support including intubation, tube feed, ventilator and/chest compression, central venous catheter, vasopressor and DC shock if needed Total time spent in [id number] encounter in discussion of advanced directive 17 minutes. Laboratory Results 02/24/25 07:35: Phosphorus 2.7, Magnesium 2.1 02/24/25 16:35: Urine Color Yellow, Urine Clarity Turbid, Urine pH 6.0, Ur Specific [place] 1.025, Urine Protein 500 H, Urine Glucose (UA) Normal, Urine Ketones 15 H, Urine Occult Blood 250 H, Urine Nitrite Negative, Urine Bilirubin Negative, Urine Urobilinogen Normal, Ur Leukocyte Esterase 500 H, Urine RBC 25-50 SEEN, Urine WBC >100 SEEN, Ur Squamous Epith Cells 0 SEEN, Calcium Oxalate Crystal 1+, Urine Bacteria 2+, Urine Mucus 0 SEEN 02/25/25 06:40: WBC 8.3, RBC 3.70 L, Hgb 12.5 L, Hct 35.7 L, MCV 96.5 H, MCH 33.8 H, MCHC 35.0, RDW Std Deviation 52.5 H, RDW Coeff of Rosalee 15.2 H, Plt Count 113 L, MPV 9.4, Immature Gran % (Auto) 0.500, Neut % (Auto) 80.9 H, Lymph % (Auto) 6.2 L, [place] % (Auto) 11.9 H, Eos % (Auto) 0.1, Baso % (Auto) 0.4, Absolute Neuts (auto) 6.7, Absolute Lymphs (auto) 0.51 L, Nucleated RBC % 0, Sodium 142, Potassium 3.2 L, Chloride 99, Carbon Dioxide 29.5, Anion Gap 14, BUN 21 H, Creatinine 1.51 H, Estim Creat Clear Calc 36.73 L, Est GFR (MDRD) Non-Af 53 L, BUN/Creatinine Ratio 13.7, Glucose 121 H, Calcium 9.6 Clinical Impression(s) from Imaging Studies Abdomen CT 02/24/25 07:20 IMPRESSION: 1. Multiple distended small bowel loops with differential air-fluid levels measuring up to 3.7 cm, concerning for small bowel obstruction with possible transition in the right lower abdominal quadrant. 2. Bladder wall thickening which may be due to the decompressed state of the bladder or due to cystitis. 3. Small esophageal hiatal hernia. 4. Inguinal hernias, bilaterally. Reading Location: [facility] X-Ray 02/24/25 11:25 IMPRESSION: Tip of the nasogastric tube in the fundus of the stomach. Bilateral nephrostomy catheters. Bowel-gas pattern suggest adynamic/reflex ileus. Reading Location: [facility] Charges/Coding Visit Charges Inpatient E&M: 00576 Subs Hosp L2
[2025-02-26] MEDS: KCL 40mEq in 0.9% NS 40 MEQ/1,000 ML IV.SOLN 150 MEQ IV ×2 (13:49→20:37)
[2025-02-26 14:57] VITALS: BP 166/105; PULSE 94; RESP 16; TEMP 36.9; O2SAT 95
--- NOTE | 2025-02-26 16:33 | CASEMGMT ---
Addendum entered by Bryce Abdul 02/26/25 16:47: Assess completed @ 1530. Original Note: RN?CM?PHYSIOGNOMIST?CM?to room to meet with patient for initial transition planning/care coordination?assessment.?RN?CM?introduced self and role at [facility].? Pt voices understanding and consents to?assessment?at this time.? Pt resting in bed in no distress at this time.? @ bedside. Pt is A/O at this time and answers all questions appropriately.?? Care providers, pharmacy, and demographics verified/updated at this time. PCP: MERRY Calvillo @ [facility] Specialists: Dr Ho and Dr Connor-oncology, Dr Leija-rad onc. Dr Maldonado-surgeon in [place], Dr Shrestha-urologist in [place], Preferred Pharmacy: [facility] @ in. Otherwise goes to [facility] in [place] Insurance:[facility] Prescription Benefit:?none LNOK: , Opal. 8 children Living Arrangements: Lives w/ and children in 2-story home w/basement w/3-4 steps to enter. Independent @ baseline and able to navigate the stairs. DME: ?Pt has a colostomy and nephrostomy that he and his manage @ home. They have sufficient supplies @ home. Son orders supplies when needed. Transportation:?Hire drivers or uses [facility] Van. Would like to utilize [facility] van @ in. HHC/SNF: No hx of either. Pt denies wanting or needing HHC or OP therapy @ in. Pt wishes to return home and states has no concerns with going home at time of discharge. ?CM?to follow for any further discharge planning/needs.? Pt and voice no concerns/needs at this time.? PLAN:??Home w/spousal support. Gisela GUTIÉRREZN?RN?CM
[2025-02-26 20:43] VITALS: BP 166/91; PULSE 77; RESP 16; TEMP 36.8; O2SAT 94
[2025-02-27] MEDS: KCL 40mEq in 0.9% NS 40 MEQ/1,000 ML IV.SOLN 150 MEQ IV (03:34)
[2025-02-27 05:59] LABS: Absolute Neutrophil Count 3.7 X10^3/uL (2.0-7.7); Basophil# 0.01 X10^3/uL; Basophil% 0.2 % (0-1); Eosinophil# 0.01 X10^3/uL; Eosinophils% 0.2 % (0-5); Hematocrit 28.5 % (40-54); Hemoglobin 9.6 g/dL (13.0-16.5); Lymphocyte % 6.8 % (19-41); Mean Corp Hgb Conc 33.7 g/dL (32-36); Mean Corpuscular Hgb 34.2 pg (27.0-32.0); Mean Corpuscular Volume 101.4 fL (80-94); Mean Platelet Vol. 9.2 fl (6.2-12.0); Monocyte# 0.42 X10^3/uL; Monocyte% 9.5 % (0-10); NRBC Flagged by Analyzer 0 % (0-5); Neutrophil # 3.66 X10^3/uL (2.7-7.7); Neutrophil % 82.8 % (47-70); POSITIVE COUNT YES; POSITIVE DIFFERENTIAL YES; Platelet Count 90 K/mm3 (150-450); RBC Distribution Width SD 58.7 fl (35.1-43.9); Red Blood Count 2.81 M/mm3 (4.6-6.2); White Blood Count 4.4 K/mm3 (4.4-11.0)
[2025-02-27 06:00] VITALS: BP 151/87; PULSE 76; RESP 16; TEMP 36.9; O2SAT 97
[2025-02-27 06:02] LABS: Differential Indicated SCAN CRITERIA MET
[2025-02-27 06:22] LABS: Anion Gap 7 (5-15); BUN 25 mg/dL (4-19); BUN/Creat Ratio 17.6 RATIO (10-20); Calcium,Total 8.6 mg/dL (7.6-11.0); Chloride 108 mmol/L (98-108); Creatinine, Serum 1.43 mg/dL (0.70-1.20); EST Glomerular Filtration Rate 56 (>60); Estimated Creatinine Clearance 38.78 ml/min (50-250); Glucose 106 mg/dL (70-99); Potassium 4.3 mmol/L (3.3-5.1); Sodium Level 143 mmol/L (133-145)
[2025-02-27 06:50] VITALS: BMI 16.4
[2025-02-27 07:40] LABS: Platelet Estimate SLT DEC (ADEQ)
[2025-02-27 08:09] VITALS: BP 134/89; PULSE 70; RESP 16; TEMP 36.7; O2SAT 98
--- NOTE | 2025-02-27 08:37 | PCM.PN.SRG ---
Subjective Subjective Patient seen and evaluated during AM rounds. Is found resting in bed. He reports his stamina is not what it used to be and he has only been up to the bathroom today. He denies any significant pain. He and his confirmed that there has been a lot of difficulty in keeping his new stoma pouched due to leakage and high output. Mr. Posada confirms tolerance of a diet without nausea but generally not finding it particularly appetizing. Objective Data Objective Data Vital Signs: Vital Signs Temp Pulse Resp BP Pulse Ox O2 Del Method O2 Flow Rate 98.1 F 70 16 134/89 H 98 Room Air 2 02/27/25 08:09 02/27/25 08:09 02/27/25 08:09 02/27/25 08:09 02/27/25 08:09 02/27/25 08:09 02/25/25 17:00 Oxygen Flow Rate (L/min) 2 Oxygen Delivery Method Room Air Weight: 108 lb 3.951 oz Body Mass Index (BMI) 16.4 Intake & Output: Intake and Output for Last 24 Hours 02/25/25 02/26/25 02/27/25 23:59 23:59 23:59 Intake Total 4400 / 4400 3033.33 / 3033.33 1700 / 1700 Output Total 2480 / 2480 2560 / 2560 775 / 775 Balance 1920 / 1920 473.33 / 473.33 925 / 925 Medical Nutrition Assessment Dietitian: Malnutrition Criteria Met Start: 02/25/25 11:58 Freq: Status: Active Protocol: Document 02/25/25 11:59 SLA (Rec: 02/25/25 11:59 SLA [id number]) Nutrition Malnutrition Evidence of Yes Malnutrition Exists Malnutrition (severe Chronic ): Evidenced By Suboptimal Energy Intake (Severe),Weight Loss (Severe), Physical Changes (Severe) Clinical Problem Chronic Disease or Condition Related Malnutrition Etiology related to GI dysfunction and cancer causing inadequate energy intake Signs/Symptoms as evidenced by 23% unintended wt loss and 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 5 Status Active Problem Recommendation Dietitian As medically able rec CECILY to Transitional with goal of Recommendations/ regular diet d/t signs and symptoms of malnutrition Changes As medically able, rec 4 oz ensure plus high protein 4x /day w/ medpass for increased nutrition if consumed - prefers chocolate flavor Lab / Micro Data 02/27/25 05:48 02/27/25 05:48 Labs: Laboratory Results - last 24 hr 02/27/25 05:48: WBC 4.4, RBC 2.81 L, Hgb 9.6 L, Hct 28.5 L, MCV 101.4 H, MCH 34.2 H, MCHC 33.7, RDW Std Deviation 58.7 H, RDW Coeff of Rosalee 16.0 H, Plt Count 90 L, MPV 9.2, Immature Gran % (Auto) 0.500, Neut % (Auto) 82.8 H, Lymph % (Auto) 6.8 L, [place] % (Auto) 9.5, Eos % (Auto) 0.2, Baso % (Auto) 0.2, Absolute Neuts (auto) 3.7, Absolute Lymphs (auto) 0.30 L, Nucleated RBC % 0, Platelet Estimate SLT DEC, Sodium 143, Potassium 4.3, Chloride 108, Carbon Dioxide 28.0, Anion Gap 7, BUN 25 H, Creatinine 1.43 H, Estim Creat Clear Calc 38.78 L, Est GFR (MDRD) Non-Af 56 L, BUN/Creatinine Ratio 17.6, Glucose 106 H, Calcium 8.6 Physical Exam Const oriented x3 and no apparent distress Constitutional Narrative: Frail-appearing GI GI Narrative: Nondistended, soft, minimally tender to palpation, right lower quadrant jejunostomy with appearance of improved perfusion to mucosa and abundant thin bilious output to the ostomy appliance. Left lower quadrant colostomy with normal perfusion and no output to appliance. Midline there is a clean silver dressing. Assessment & Plan Assessment/Plan (1) SBO (small bowel obstruction): PLAN: The patient is a 59-year-old male with a history of rectal cancer status post a bowel resection with end colostomy. He is postoperative day 2 from diagnostic laparoscopy converted to exploratory laparotomy with loop jejunostomy due to intraoperative finding of plastered small bowel in the pelvis. Patient passed his clamp trial yesterday and was initiated on a clear liquid diet which he appears to have tolerated without difficulty. His new enterostomy is demonstrating rather high volume output (estimated at 1700 mL for the last 24 hours by nursing). This is led to challenges in keeping it pouch. Currently has approximately a third of the appliance full. Patient and his are encouraged to try to empty more frequently and experiment with orientation by which the bag is positioned so as to minimize the weight and the likelihood for the adhesive to pull away from the stoma. Patient may benefit from Amaya's ring or similar device to help protect the peristomal skin and encourage drainage away from abdominal wall surface. To the send patient would benefit from evaluation by wound and ostomy nursing. Given tolerance of a clear liquid diet will advance to a full liquid diet. No plans to try to block patient's output down at this point but he may require this in the future. I will plan to replace some of his volume loss today via normal saline bolus. Creatinine is notably improved over yesterday. Pain control at this point appears to remain adequate and patient is encouraged to mobilize as he is able to given his numerous drains and lines. This is especially important as I had to hold his Lovenox given a progressive downtrend of his hemoglobin. Hari Paredes MD General Surgery Endocrine Surgery Pager: [facility] [address] [place] [address], [address] [place] [address] Office: [phone] Charges/Coding Visit Charges Inpatient E&M: 72507 Subs Hosp L2
[2025-02-27] MEDS: 0.9% Normal Saline (250mL Bag) 250 ML 999 ML IV (09:31)
[2025-02-27] MEDS: Pantoprazole Sodium 40 MG in 0.9% Normal Saline (100mL MB+) 100 ML 330 MG IV (10:17)
[2025-02-27] MEDS: Lactated Ringers 1,000 ML 1 ML IV (10:17)
--- NOTE | 2025-02-27 14:36 | PCM.PN.HOSP ---
Reason for Visit Reason for Visit: Diagnoses Malignant neoplasm of rectum (02/24/25) Unspecified intestinal obstruction, unspecified as to partial versus complete obstruction (02/24/25) Objective Data Objective Data Vital Signs: Vital Signs Temp Pulse Resp BP Pulse Ox O2 Del Method O2 Flow Rate 98.1 F 70 16 134/89 H 98 Room Air 2 02/27/25 08:09 02/27/25 08:09 02/27/25 08:09 02/27/25 08:09 02/27/25 08:09 02/27/25 08:09 02/25/25 17:00 Oxygen Flow Rate (L/min) 2 Oxygen Delivery Method Room Air Weight: 108 lb 3.951 oz Body Mass Index (BMI) 16.4 Intake & Output: Intake and Output for Last 24 Hours 02/25/25 02/26/25 02/27/25 23:59 23:59 23:59 Intake Total 4400 / 4400 3033.33 / 3033.33 3042.62 / 3042.62 Output Total 2480 / 2480 2560 / 2560 1525 / 1525 Balance 1920 / 1920 473.33 / 473.33 1517.62 / 1517.62 Medical Nutrition Assessment Dietitian: Malnutrition Criteria Met Start: 02/25/25 11:58 Freq: Status: Active Protocol: Document 02/25/25 11:59 SLA (Rec: 02/25/25 11:59 SLA [id number]) Nutrition Malnutrition Evidence of Yes Malnutrition Exists Malnutrition (severe Chronic ): Evidenced By Suboptimal Energy Intake (Severe),Weight Loss (Severe), Physical Changes (Severe) Clinical Problem Chronic Disease or Condition Related Malnutrition Etiology related to GI dysfunction and cancer causing inadequate energy intake Signs/Symptoms as evidenced by 23% unintended wt loss and po intake meeting <75% 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 5 Status Active Problem Recommendation Dietitian As medically able rec CECILY to Transitional with goal of Recommendations/ regular diet d/t signs and symptoms of malnutrition Changes As medically able, rec 4 oz ensure plus high protein 4x /day w/ medpass for increased nutrition if consumed - prefers chocolate flavor Lab / Micro Data 02/27/25 05:48 02/27/25 05:48 Labs: Laboratory Results - last 24 hr 02/27/25 05:48: WBC 4.4, RBC 2.81 L, Hgb 9.6 L, Hct 28.5 L, MCV 101.4 H, MCH 34.2 H, MCHC 33.7, RDW Std Deviation 58.7 H, RDW Coeff of [place]alee 16.0 H, Plt Count 90 L, MPV 9.2, Immature Gran % (Auto) 0.500, Neut % (Auto) 82.8 H, Lymph % (Auto) 6.8 L, [place] % (Auto) 9.5, Eos % (Auto) 0.2, Baso % (Auto) 0.2, Absolute Neuts (auto) 3.7, Absolute Lymphs (auto) 0.30 L, Nucleated RBC % 0, Platelet Estimate SLT DEC, Sodium 143, Potassium 4.3, Chloride 108, Carbon Dioxide 28.0, Anion Gap 7, BUN 25 H, Creatinine 1.43 H, Estim Creat Clear Calc 38.78 L, Est GFR (MDRD) Non-Af 56 L, BUN/Creatinine Ratio 17.6, Glucose 106 H, Calcium 8.6 Physical Exam Narrative Seen and examined NG tube was removed yesterday. Started on diet advanced to full liquid. Has a right-sided diverting jejunostomy. Discussed with nursing staff, 1000 mL bilious output since morning and urine output 225 mL from bilateral nephrostomy tubes. It was 1310 from duodenostomy yesterday Now, the patient has 2 colostomies and 2 bilateral nephrostomy tubes in each kidney Physical exam General: Alert, Oriented x3, Cooperative HEENT: Atraumatic, PERRLA, EOMI, Normocephalic. Oral: Oral mucosa dry no Gingival or Mucosal Lesions/ Ulcerations Neck: Supple, No JVD, Negative Carotid Bruits Chest wall/Lungs: Air entry diminished in bilateral lung bases. No crepitation/rhonchi Cardiovascular: Irregular rhythm normal S1,S2, systolic murmur Abdomen: Bowel Sounds sluggish, soft, Non Tender, colostomy. No significant fecal content in colostomy bag. Jejunostomy has bilious drainage, high output fistula : Bilateral nephrostomy tube,, urine output is increased. Clear in color no renal angle tenderness. No suprapubic tenderness. Extremities: No edema, Capillary Refill Less than 3 Seconds Skin: No rashes, No breakdown Musculoskeletal: No Tenderness to Palpation of Joints or Extremities Neurological: Cranial nerves II-XII grossly intact, DTR 2+/4. No acute focal neurological deficit. Psych/Mental Status: Flat affect Assessment & Plan Assessment/Plan (1) SBO (small bowel obstruction): (2) Malignant neoplasm of rectum: PLAN: Plan This 59-year-old gentleman is being admitted for small bowel obstruction. Patient has history of rectal cancer status post APR. He had chemotherapy and radiation 4 months ago and then last chemo about 10 days ago. 1. Small bowel obstruction with history of colorectal cancer status post APR and colostomy: Patient is being admitted Medr floor. IV fluid Ringer lactate at 100 mL/h. NG suction at low intermittent wall suction. Monitor bowel emptying. Surgery Dr. Chandler is consulted. CT abdomen images shows multiple distended small bowel loops with largest measuring 3.7 cm. 02/25: Small bowel series shows contrast in the stomach with collection in duodenum and proximal jejunum at 1 hour. Multiple dilated small bowel loops predominantly in the left side. As per surgeon, there is less chance of conservative management therefore surgery was recommended and patient agreed. Plan for surgery today. Mild hypokalemia, electrolyte replacement ordered. 02/26: Patient had small bowel obstruction secondary to adhesions/radiation to the pelvis. Diagnostic laparoscopy converted to exploratory laparotomy with extensive lysis of adhesions and diverting loop jejunostomy on 02/25/2025. Jejunostomy is working good and had bags emptied twice with bilious content. 02/27: Discussed with the nursing staff. IV fluid replacement, Ringer lactate ordered; to be more than jejunostomy output and urine output. Urine output has increased due to IV fluid yesterday. Patient also on full liquid diet. Decreased lung sounds in lung bases therefore incentive spirometry reinforced 2. CA rectum: He follows Dr. Ho. Had C8 FOLFOX on 02/14/2025. Prior to that he finished chemotherapy on 08/13/2024 and radiation on 08/17/2024. 3. Bilateral hydronephrosis status post bilateral nephrostomy in September 2024 in [facility]: Urine in bilateral nephrostomy bag is dark-colored. IV fluid hydration. CT scan does not show hydronephrosis 4. History of DVT in the past: Unclear about it location but patient said it was in right thigh. Unclear about the reason why did not complete full course of anticoagulation but he said he had Lovenox and aspirin during hospitalization in [facility]. 5. Irregular rhythm: Twelve-lead EKG shows sinus rhythm with PAC, LAD at 85 bpm.Denies history of A-fib. 6. Chronic anemia: Slight drop in hemoglobin from baseline 12.5 g%. 11.5/33.5%. Mild chronic thrombocytopenia platelet count around 110,000. 7. Mild INOCENCIA: Baseline creatinine around 1.33 in January 2025. Creatinine went from admission 1.39-1.67 therefore qualifies for INOCENCIA. IV fluid ordered, normal saline plus KCl ordered 150 mL/h to compensate jejunostomy loss, high output fistula. NG tube 650 mL. Jejunostomy 2560 mL. DVT prophylaxis, high risk: Lovenox 40 mg subcu daily Living will/advanced directive/end of life care: Patient does not have living will or advanced directive but in the process of making living well. After discussion of benefits/risks procedures involved with full code, DNR CC arrest and DNR CC, the patient and his opted for full code Patient does want artificial life support including intubation, tube feed, ventilator and/chest compression, central venous catheter, vasopressor and DC shock if needed Laboratory Results 02/24/25 07:35: Phosphorus 2.7, Magnesium 2.1 02/24/25 16:35: Urine Color Yellow, Urine Clarity Turbid, Urine pH 6.0, Ur Specific [place] 1.025, Urine Protein 500 H, Urine Glucose (UA) Normal, Urine Ketones 15 H, Urine Occult Blood 250 H, Urine Nitrite Negative, Urine Bilirubin Negative, Urine Urobilinogen Normal, Ur Leukocyte Esterase 500 H, Urine RBC 25-50 SEEN, Urine WBC >100 SEEN, Ur Squamous Epith Cells 0 SEEN, Calcium Oxalate Crystal 1+, Urine Bacteria 2+, Urine Mucus 0 SEEN 02/25/25 06:40: WBC 8.3, RBC 3.70 L, Hgb 12.5 L, Hct 35.7 L, MCV 96.5 H, MCH 33.8 H, MCHC 35.0, RDW Std Deviation 52.5 H, RDW Coeff of Rosalee 15.2 H, Plt Count 113 L, MPV 9.4, Immature Gran % (Auto) 0.500, Neut % (Auto) 80.9 H, Lymph % (Auto) 6.2 L, [place] % (Auto) 11.9 H, Eos % (Auto) 0.1, Baso % (Auto) 0.4, Absolute Neuts (auto) 6.7, Absolute Lymphs (auto) 0.51 L, Nucleated RBC % 0, Sodium 142, Potassium 3.2 L, Chloride 99, Carbon Dioxide 29.5, Anion Gap 14, BUN 21 H, Creatinine 1.51 H, Estim Creat Clear Calc 36.73 L, Est GFR (MDRD) Non-Af 53 L, BUN/Creatinine Ratio 13.7, Glucose 121 H, Calcium 9.6 Clinical Impression(s) from Imaging Studies Abdomen CT 02/24/25 07:20 IMPRESSION: 1. Multiple distended small bowel loops with differential air-fluid levels measuring up to 3.7 cm, concerning for small bowel obstruction with possible transition in the right lower abdominal quadrant. 2. Bladder wall thickening which may be due to the decompressed state of the bladder or due to cystitis. 3. Small esophageal hiatal hernia. 4. Inguinal hernias, bilaterally. [facility] 02/24/25 11:25 IMPRESSION: Tip of the nasogastric tube in the fundus of the stomach. Bilateral nephrostomy catheters. Bowel-gas pattern suggest adynamic/reflex ileus. Reading Location: [facility] Charges/Coding Visit Charges Inpatient E&M: 88579 Subs Hosp L2
[2025-02-27] MEDS: 0.9% Saline Lock 10 ML Syringe IV (15:20)
[2025-02-27 21:38] VITALS: BP 152/91; PULSE 67; RESP 16; TEMP 36.8; O2SAT 97
[2025-02-28 05:55] VITALS: BP 163/95; PULSE 64; RESP 18; TEMP 36.8; O2SAT 97
[2025-02-28 06:00] VITALS: BMI 16.5
[2025-02-28] MEDS: Alteplase 2 MG/2 ML Vial IV (06:36)
[2025-02-28] MEDS: 0.9% Saline Lock 10 ML Syringe IV ×2 (06:36→10:50)
[2025-02-28 06:45] LABS: Absolute Lymphocyte Count 0.45 X10^3/uL (0.83-4.51); Absolute Neutrophil Count 1.8 X10^3/uL (2.0-7.7); Basophil# 0.01 X10^3/uL; Basophil% 0.3 % (0-1); Eosinophil# 0.13 X10^3/uL; Eosinophils% 4.4 % (0-5); Hematocrit 28.4 % (40-54); Hemoglobin 9.5 g/dL (13.0-16.5); Lymphocyte # 0.45 X10^3/ul (0.83-4.51); Lymphocyte % 15.3 % (19-41); Mean Corp Hgb Conc 33.5 g/dL (32-36); Mean Corpuscular Hgb 34.1 pg (27.0-32.0); Mean Corpuscular Volume 101.8 fL (80-94); Mean Platelet Vol. 9.5 fl (6.2-12.0); Monocyte# 0.58 X10^3/uL; Monocyte% 19.7 % (0-10); NRBC Flagged by Analyzer 0 % (0-5); Neutrophil # 1.76 X10^3/uL (2.7-7.7); Neutrophil % 59.6 % (47-70); POSITIVE COUNT YES; POSITIVE DIFFERENTIAL YES; Platelet Count 77 K/mm3 (150-450); RBC Distribution Width CV 15.4 % (11.6-14.6); Red Blood Count 2.79 M/mm3 (4.6-6.2)
[2025-02-28 06:47] LABS: Differential Indicated SCAN CRITERIA MET
--- NOTE | 2025-02-28 06:54 | NURSING ---
pharmacy called to see if ok to give cath flow with platlets in s. Ok to administer
[2025-02-28 07:06] LABS: Differential Comment SCANNED; Platelet Estimate MOD DEC (ADEQ)
[2025-02-28 07:07] LABS: Red Cell Morphology NORM C+C NORMAL (NORM C&C)
--- NOTE | 2025-02-28 07:27 | PCM.PN.SRG ---
Subjective Subjective Patient evaluated resting comfortably in bed. He denies any abdominal pain/discomfort at rest. He notes his ileostomy output has decreased to become more manageable. He denies any nausea, vomiting, fever. He is tolerating full liquids. Objective Data Objective Data Vital Signs: Vital Signs Temp Pulse Resp BP Pulse Ox O2 Del Method O2 Flow Rate 98.2 F 64 18 163/95 H 97 Room Air 2 02/28/25 05:55 02/28/25 05:55 02/28/25 05:55 02/28/25 05:55 02/28/25 05:55 02/28/25 05:58 02/25/25 17:00 Oxygen Flow Rate (L/min) 2 Oxygen Delivery Method Room Air Weight: 108 lb 11.006 oz Body Mass Index (BMI) 16.5 Intake & Output: Intake and Output for Last 24 Hours 02/26/25 02/27/25 02/28/25 23:59 23:59 23:59 Intake Total 3033.33 / 3033.33 3509.29 / 3509.29 500 / 500 Output Total 2560 / 2560 2075 / 2075 1025 / 1025 Balance 473.33 / 473.33 1434.29 / 1434.29 -525 / -525 Medical Nutrition Assessment Dietitian: Malnutrition Criteria Met Start: 02/25/25 11:58 Freq: Status: Active Protocol: Document 02/25/25 11:59 SLA (Rec: 02/25/25 11:59 SLA [email or web address]) Nutrition Malnutrition Evidence of Yes Malnutrition Exists Malnutrition (severe Chronic ): Evidenced By Suboptimal Energy Intake (Severe),Weight Loss (Severe), Physical Changes (Severe) Clinical Problem Chronic Disease or Condition Related Malnutrition Etiology related to GI dysfunction and cancer causing inadequate energy intake Signs/Symptoms as evidenced by 23% unintended wt loss and po 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 5 Status Active Problem Recommendation Dietitian As medically able rec CECILY to Transitional with goal of Recommendations/ regular diet d/t signs and symptoms of malnutrition Changes As medically able, rec 4 oz ensure plus high protein 4x /day w/ medpass for increased nutrition if consumed - prefers chocolate flavor Lab / Micro Data 02/28/25 06:20 02/28/25 06:20 Labs: Laboratory Results - last 24 hr 02/27/25 05:48: Platelet Estimate SLT 02/28/25 06:20: WBC 3.0 L, RBC 2.79 L, Hgb 9.5 L, Hct 28.4 L, MCV 101.8 H, MCH 34.1 H, MCHC 33.5, RDW Std Deviation 58.0 H, RDW Coeff of Rosalee 15.4 H, Plt Count 77 L, MPV 9.5, Immature Gran % (Auto) 0.700, Neut % (Auto) 59.6, Lymph % (Auto) 15.3 L, [place] % (Auto) 19.7 H, Eos % (Auto) 4.4, Baso % (Auto) 0.3, Absolute Neuts (auto) 1.8 L, Absolute Lymphs (auto) 0.45 L, Nucleated RBC % 0, Differential Comment SCANNED, Platelet Estimate MOD DEC, RBC Morphology NORM C+C Physical Exam GI GI Narrative: Abdomen- soft, slight tenderness at the incision site. Positive bowel sounds. Silver dressing intact. Assessment & Plan Assessment/Plan (1) SBO (small bowel obstruction): PLAN: I am following this patient in conjunction with Dr. Chandler. He will independently evaluate this patient. Labs reviewed Continue full liquids for breakfast. May advance patient to transitional diet at lunch if tolerate breakfast Probable discharge tomorrow Charges/Coding Visit Charges Inpatient E&M: 31621 Subs Hosp L1 (no charge; post-op)
[2025-02-28 07:39] LABS: Anion Gap 8 (5-15); BUN 17 mg/dL (4-19); BUN/Creat Ratio 15.4 RATIO (10-20); Calcium,Total 8.7 mg/dL (7.6-11.0); Chloride 105 mmol/L (98-108); EST Glomerular Filtration Rate 77 (>60); Estimated Creatinine Clearance 50.42 ml/min (50-250); Glucose 96 mg/dL (70-99); Potassium 3.8 mmol/L (3.3-5.1); Sodium Level 138 mmol/L (133-145)
[2025-02-28 07:53] VITALS: BP 143/92; PULSE 62; RESP 16; TEMP 36.8; O2SAT 97
[2025-02-28] MEDS: Pantoprazole Sodium 40 MG in 0.9% Normal Saline (100mL MB+) 100 ML 330 MG IV (10:50)
--- NOTE | 2025-02-28 10:55 | PCM.PN.HOSP ---
Reason for Visit Reason for Visit: Diagnoses Malignant neoplasm of rectum (02/24/25) Unspecified intestinal obstruction, unspecified as to partial versus complete obstruction (02/24/25) Objective Data Objective Data Vital Signs: Vital Signs Temp Pulse Resp BP Pulse Ox O2 Del Method O2 Flow Rate 98.2 F 62 16 143/92 H 97 Room Air 2 02/28/25 07:53 02/28/25 07:53 02/28/25 07:53 02/28/25 07:53 02/28/25 07:53 02/28/25 08:05 02/25/25 17:00 Oxygen Flow Rate (L/min) 2 Oxygen Delivery Method Room Air Weight: 108 lb 11.006 oz Body Mass Index (BMI) 16.5 Intake & Output: Intake and Output for Last 24 Hours 02/26/25 02/27/25 02/28/25 23:59 23:59 23:59 Intake Total 3033.33 / 3033.33 3509.29 / 3509.29 500 / 500 Output Total 2560 / 2560 2075 / 2075 1025 / 1025 Balance 473.33 / 473.33 1434.29 / 1434.29 -525 / -525 Medical Nutrition Assessment Dietitian: Malnutrition Criteria Met Start: 02/25/25 11:58 Freq: Status: Active Protocol: Document 02/25/25 11:59 SLA (Rec: 02/25/25 11:59 SLA [email or web address]) Nutrition Malnutrition Evidence of Yes Malnutrition Exists Malnutrition (severe Chronic ): Evidenced By Suboptimal Energy Intake (Severe),Weight Loss (Severe), Physical Changes (Severe) Clinical Problem Chronic Disease or Condition Related Malnutrition Etiology related to GI dysfunction and cancer causing inadequate energy intake Signs/Symptoms as evidenced by 23% unintended wt loss and po intake meeting <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 5 Status Active Problem Recommendation Dietitian As medically able rec CECILY to Transitional with goal of Recommendations/ regular diet d/t signs and symptoms of malnutrition Changes As medically able, rec 4 oz ensure plus high protein 4x /day w/ medpass for increased nutrition if consumed - prefers chocolate flavor Lab / Micro Data 02/28/25 06:20 02/28/25 06:20 Labs: Laboratory Results - last 24 hr 02/28/25 06:20: WBC 3.0 L, RBC 2.79 L, Hgb 9.5 L, Hct 28.4 L, MCV 101.8 H, MCH 34.1 H, MCHC 33.5, RDW Std Deviation 58.0 H, RDW Coeff of [place]alee 15.4 H, Plt Count 77 L, MPV 9.5, Immature Gran % (Auto) 0.700, Neut % (Auto) 59.6, Lymph % (Auto) 15.3 L, [place] % (Auto) 19.7 H, Eos % (Auto) 4.4, Baso % (Auto) 0.3, Absolute Neuts (auto) 1.8 L, Absolute Lymphs (auto) 0.45 L, Nucleated RBC % 0, Differential Comment SCANNED, Platelet Estimate MOD DEC, RBC Morphology NORM C+C, Sodium 138, Potassium 3.8, Chloride 105, Carbon Dioxide 26.0, Anion Gap 8, BUN 17, Creatinine 1.10, Estim Creat Clear Calc 50.42, Est GFR (MDRD) Non-Af 77, BUN/Creatinine Ratio 15.4, Glucose 96, Calcium 8.7 Physical Exam Narrative Seen and examined NG tube was removed on 02/26/2025. On full liquid diet tolerated well. Advance to soft diet. Has a right-sided diverting jejunostomy/ileostomy. Discussed with nursing staff, 550 mL bilious output since morning and 1425 mL yesterday. the patient has 2 colostomies and 2 bilateral nephrostomy tubes in each kidney Physical exam General: Alert, Oriented x3, Cooperative HEENT: Atraumatic, PERRLA, EOMI, Normocephalic. Oral: Oral mucosa dry. No Gingival or Mucosal Lesions/ Ulcerations Neck: Supple, No JVD, Negative Carotid Bruits Chest wall/Lungs: Air entry diminished in bilateral lung bases. No crepitation/rhonchi Cardiovascular: Irregular rhythm normal S1,S2, systolic murmur Abdomen: Bowel Sounds sluggish, soft, Non Tender, colostomy. No significant fecal content in colostomy bag. Jejunostomy has bilious drainage, high output fistula : Bilateral nephrostomy tube,, urine output is increased. Clear in color no renal angle tenderness. No suprapubic tenderness. Extremities: No edema, Capillary Refill Less than 3 Seconds Skin: No rashes, No breakdown Musculoskeletal: No Tenderness to Palpation of Joints or Extremities Neurological: Cranial nerves II-XII grossly intact, DTR 2+/4. No acute focal neurological deficit. Psych/Mental Status: Flat affect Assessment & Plan Assessment/Plan (1) SBO (small bowel obstruction): (2) Malignant neoplasm of rectum: PLAN: Plan This 59-year-old gentleman is being admitted for small bowel obstruction. Patient has history of rectal cancer status post APR. He had chemotherapy and radiation 4 months ago and then last chemo about 10 days ago. 1. Small bowel obstruction with history of colorectal cancer status post APR and colostomy: Patient is being admitted Medr floor. IV fluid Ringer lactate at 100 mL/h. NG suction at low intermittent wall suction. Monitor bowel emptying. Surgery Dr. Chandler is consulted. CT abdomen images shows multiple distended small bowel loops with largest measuring 3.7 cm. 02/25: Small bowel series shows contrast in the stomach with collection in duodenum and proximal jejunum at 1 hour. Multiple dilated small bowel loops predominantly in the left side. As per surgeon, there is less chance of conservative management therefore surgery was recommended and patient agreed. Plan for surgery today. Mild hypokalemia, electrolyte replacement ordered. 02/26: Patient had small bowel obstruction secondary to adhesions/radiation to the pelvis. Diagnostic laparoscopy converted to exploratory laparotomy with extensive lysis of adhesions and diverting loop jejunostomy on 02/25/2025. Jejunostomy is working good and had bags emptied twice with bilious content. 02/27: Discussed with the nursing staff. IV fluid replacement, Ringer lactate ordered; to be more than jejunostomy output and urine output. Urine output has increased due to IV fluid yesterday. Patient also on full liquid diet. Decreased lung sounds in lung bases therefore incentive spirometry reinforced 02/28: 950 mL stool output since midnight. 675 mL urine output. Diet advanced to soft diet. Electrolytes within normal range. 2. CA rectum: He follows Dr. Ho. Had C8 FOLFOX on 02/14/2025. Prior to that he finished chemotherapy on 08/13/2024 and radiation on 08/17/2024. 3. Bilateral hydronephrosis status post bilateral nephrostomy in September 2024 in [facility]: Urine in bilateral nephrostomy bag is dark-colored. IV fluid hydration. CT scan does not show hydronephrosis 02/28: Urine output is good. BUN/creatinine 1.1/50.4. 4. History of DVT in the past: Unclear about it location but patient said it was in right thigh. Unclear about the reason why did not complete full course of anticoagulation but he said he had Lovenox and aspirin during hospitalization in [facility]. 5. Irregular rhythm: Twelve-lead EKG shows sinus rhythm with PAC, LAD at 85 bpm.Denies history of A-fib. 6. Chronic anemia: Slight drop in hemoglobin from baseline 12.5 g%. 11.5/33.5%. Mild chronic thrombocytopenia platelet count around 110,000. 7. Mild INOCENCIA: Baseline creatinine around 1.33 in January 2025. Creatinine went from admission 1.39-1.67 therefore qualifies for INOCENCIA. IV fluid ordered, normal saline plus KCl ordered 150 mL/h to compensate jejunostomy loss, high output fistula. NG tube 650 mL. Jejunostomy 2560 mL. DVT prophylaxis, high risk: Lovenox 40 mg subcu daily. Lovenox on hold due to anemia 02/28: Resume Lovenox from tomorrow a.m. Living will/advanced directive/end of life care: Patient does not have living will or advanced directive but in the process of making living well. After discussion of benefits/risks procedures involved with full code, DNR CC arrest and DNR CC, the patient and his opted for full code Patient does want artificial life support including intubation, tube feed, ventilator and/chest compression, central venous catheter, vasopressor and DC shock if needed Laboratory Results 02/28/25 06:20: WBC 3.0 L, RBC 2.79 L, Hgb 9.5 L, Hct 28.4 L, MCV 101.8 H, MCH 34.1 H, MCHC 33.5, RDW Std Deviation 58.0 H, RDW Coeff of [place]ale[place] 15.4 H, Plt Count 77 L, MPV 9.5, Immature Gran % (Auto) 0.700, Neut % (Auto) 59.6, Lymph % (Auto) 15.3 L, [place] % (Auto) 19.7 H, Eos % (Auto) 4.4, Baso % (Auto) 0.3, Absolute Neuts (auto) 1.8 L, Absolute Lymphs (auto) 0.45 L, Nucleated RBC % 0, Differential Comment SCANNED, Platelet Estimate MOD DEC, RBC Morphology NORM C+C, Sodium 138, Potassium 3.8, Chloride 105, Carbon Dioxide 26.0, Anion Gap 8, BUN 17, Creatinine 1.10, Estim Creat Clear Calc 50.42, Est GFR (MDRD) Non-Af 77, BUN/Creatinine Ratio 15.4, Glucose 96, Calcium 8.7 02/28/25 11:19: POC Glucose 119 H Clinical Impression(s) from Imaging Studies Abdomen CT 02/24/25 07:20 IMPRESSION: 1. Multiple distended small bowel loops with differential air-fluid levels measuring up to 3.7 cm, concerning for small bowel obstruction with possible transition in the right lower abdominal quadrant. 2. Bladder wall thickening which may be due to the decompressed state of the bladder or due to cystitis. 3. Small esophageal hiatal hernia. 4. Inguinal hernias, bilaterally. Reading [facility] 02/24/25 11:25 IMPRESSION: Tip of the nasogastric tube in the fundus of the stomach. Bilateral nephrostomy catheters. Bowel-gas pattern suggest adynamic/reflex ileus. Reading Location: [facility] Charges/Coding Visit Charges Inpatient E&M: 90439 Subs Hosp L2
[2025-02-28 11:38] LABS: Bedside Glucose 119 mg/dL (74-106)
[2025-02-28 13:40] VITALS: BP 149/92; PULSE 70; RESP 15; TEMP 36.7; O2SAT 97
[2025-02-28 18:11] LABS: Bedside Glucose 94 mg/dL (74-106)
[2025-02-28 18:15] VITALS: BP 153/96; PULSE 78; RESP 16; TEMP 37.2; O2SAT 97
[2025-02-28 21:10] VITALS: BP 164/104; PULSE 80; RESP 18; TEMP 37.1; O2SAT 97
[2025-03-01 04:08] VITALS: BP 144/93; PULSE 70; RESP 18; TEMP 36.4; O2SAT 98
[2025-03-01] MEDS: 0.9% Saline Lock 10 ML Syringe IV ×3 (04:17→13:26)
[2025-03-01 04:35] LABS: Absolute Lymphocyte Count 0.55 X10^3/uL (0.83-4.51); Absolute Neutrophil Count 1.2 X10^3/uL (2.0-7.7); Basophil# 0.01 X10^3/uL; Basophil% 0.4 % (0-1); Hematocrit 27.7 % (40-54); Hemoglobin 9.5 g/dL (13.0-16.5); Lymphocyte # 0.55 X10^3/ul (0.83-4.51); Lymphocyte % 22.3 % (19-41); Mean Corp Hgb Conc 34.3 g/dL (32-36); Mean Corpuscular Hgb 34.2 pg (27.0-32.0); Mean Corpuscular Volume 99.6 fL (80-94); Mean Platelet Vol. 9.7 fl (6.2-12.0); Monocyte# 0.63 X10^3/uL; Monocyte% 25.5 % (0-10); NRBC Flagged by Analyzer 0 % (0-5); Neutrophil # 1.15 X10^3/uL (2.7-7.7); Neutrophil % 46.6 % (47-70); POSITIVE COUNT YES; POSITIVE DIFFERENTIAL YES; Platelet Count 86 K/mm3 (150-450); RBC Distribution Width SD 54.9 fl (35.1-43.9); Red Blood Count 2.78 M/mm3 (4.6-6.2); White Blood Count 2.5 K/mm3 (4.4-11.0)
[2025-03-01 04:41] LABS: Differential Indicated SCAN CRITERIA MET
[2025-03-01 04:59] LABS: Anion Gap 7 (5-15); BUN 13 mg/dL (4-19); BUN/Creat Ratio 12.6 RATIO (10-20); Calcium,Total 8.5 mg/dL (7.6-11.0); Carbon Dioxide 26.7 mmol/L (21.0-32.0); Chloride 101 mmol/L (98-108); Creatinine, Serum 1.03 mg/dL (0.70-1.20); EST Glomerular Filtration Rate 84 (>60); Estimated Creatinine Clearance 53.85 ml/min (50-250); Glucose 97 mg/dL (70-99); Potassium 3.5 mmol/L (3.3-5.1); Sodium Level 135 mmol/L (133-145)
[2025-03-01 05:17] LABS: Differential Comment SCANNED; Platelet Estimate MOD DEC (ADEQ)
[2025-03-01 05:18] LABS: Red Cell Morphology NORM C+C NORMAL (NORM C&C)
[2025-03-01 05:34] VITALS: BMI 16.4
--- NOTE | 2025-03-01 08:34 | PN.SURG_ITS ---
Subjective Subjective Patient is evaluated resting comfortably in bed. He notes output seems high again. He denies any nausea, vomiting with diet. He is tolerating transitional diet well. Objective Data Objective Data Vital Signs: Vital Signs Temp Pulse Resp BP Pulse Ox O2 Del Method O2 Flow Rate 97.6 F L 70 18 144/93 H 98 Room Air 2 03/01/25 04:08 03/01/25 04:08 03/01/25 04:08 03/01/25 04:08 03/01/25 04:08 03/01/25 04:11 02/25/25 17:00 Oxygen Flow Rate (L/min) 2 Oxygen Delivery Method Room Air Weight: 108 lb 7.479 oz Body Mass Index (BMI) 16.4 Intake & Output: Intake and Output for Last 24 Hours 02/27/25 02/28/25 03/01/25 23:59 23:59 23:59 Intake Total 3509.29 / 3509.29 1810 / 1810 300 / 300 Output Total 2075 / 2075 2650 / 2650 800 / 800 Balance 1434.29 / 1434.29 -840 / -840 -500 / -500 Medical Nutrition Assessment Dietitian: Malnutrition Criteria Met Start: 02/25/25 11:58 Freq: Status: Active Protocol: Document 02/28/25 11:51 SLA (Rec: 02/28/25 11:51 SLA [id number]) Nutrition Malnutrition Evidence of Yes Malnutrition Exists Malnutrition (severe Chronic ): Evidenced By Suboptimal Energy Intake (Severe),Weight Loss (Severe), Physical Changes (Severe) Clinical Problem Chronic Disease or Condition Related Malnutrition Etiology related to GI dysfunction and cancer causing inadequate energy intake Signs/Symptoms as evidenced by 23% unintended wt loss and po intake meeting <75% 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 5 Status Active Problem Recommendation Dietitian Continue Transitional with goal of regular diet d/t Recommendations/ signs and symptoms of malnutrition Changes Order ensure plus high protein tid w/ meals for increased nutrition if consumed - prefers chocolate flavor Lab / Micro Data 03/01/25 04:25 03/01/25 04:25 Labs: Laboratory Results - last 24 hr 02/28/25 11:19: POC Glucose 119 H 02/28/25 17:42: POC Glucose 94 03/01/25 04:25: WBC 2.5 L, RBC 2.78 L, Hgb 9.5 L, Hct 27.7 L, MCV 99.6 H, MCH 34.2 H, MCHC 34.3, RDW Std Deviation 54.9 H, RDW Coeff of [place] 15.0 H, Plt Count 86 L, MPV 9.7, Immature Gran % (Auto) 1.200 H, Neut % (Auto) 46.6 L, Lymph % (Auto) 22.3, [place] % (Auto) 25.5 H, Eos % (Auto) 4.0, Baso % (Auto) 0.4, Absolute Neuts (auto) 1.2 L, Absolute Lymphs (auto) 0.55 L, Nucleated RBC % 0, Differential Comment SCANNED, Platelet Estimate MOD DEC, RBC Morphology NORM C+C, Sodium 135, Potassium 3.5, Chloride 101, Carbon Dioxide 26.7, Anion Gap 7, BUN 13, Creatinine 1.03, Estim Creat Clear Calc 53.85, Est GFR (MDRD) Non-Af 84, BUN/Creatinine Ratio 12.6, Glucose 97, Calcium 8.5 Physical Exam GI GI Narrative: Abdomen- soft, slight tenderness at the incision site otherwise nontender. Silver dressing intact. Colostomy with no output in the stoma bag. Jejunostomy with bilious fluid within the stoma bag. Stoma site appears pink and healthy with some stool sediment over top of the stoma site. Assessment & Plan Assessment/Plan (1) SBO (small bowel obstruction): PLAN: Plan I am following this patient in conjunction with Dr. Chandler. He will independently evaluate this patient. Labs reviewed. Sofia will discuss ostomy appliance options Patient is progressing well from a surgical standpoint He may be discharged today on a transitional diet He will need to follow-up in [address] Chandler for re-evaluation and staple removal Ready for discharge Charges/Coding Visit Charges Inpatient E&M: 66072 Subs Hosp L1 (post-op)
--- NOTE | 2025-03-01 08:41 | DCINST_ITS ---
Discharge Instructions Diet Discharge Diet: - (Transitional soft, food diet) DC O2, CPAP, BIPAP needs Home O2 Discharge instructions: No Dressing / Incision Call your doctor if your incision/area has: Continuous Slow Oozing, Sudden Increased Bleeding, Increased Pain/ Swelling, Increased Redness, Foul Smelling Discharge and Swelling at the incision site Call your doctor if you observe: Fever of 101 or Higher Suture Line Care: Avoid Pulling/Pushing and Avoid Pinching/Bending Cleanse incision/area with: Soap & Water Follow Up Care Please Follow Up With: Kunal Chandler MD Test Results: Test results from this visit will be discussed in further detail at your follow- up appointment, if applicable. Discharge Plan Admission Admit Date/Time: 02/24/25 11:29 Primary Reason for Your Visit: Small bowel obstruction status post jejunostomy/ileostomy. Has BL nephrost Attending Provider: Handy Royal Primary Care Provider: Morelia Calvillo NP Consulting Providers: Kunal Chandler Instructions Additional Instructions / Restrictions: Your follow-up appointment is scheduled for 03/10 at 9:[address] Chandler. Please arrive 15 minutes early. Please contact our office at [phone], option #4 for a nurse if you have any questions following discharge. Bring ostomy supplies with you to your follow-up. Below is an example of foods to continue eating at discharge. You may increase diet to regular food after 3 days from discharge date. If you have any questions, please contact our office. Transitional Diet Beverages: ? Soda (cola, diet cola, lemon-[place], diet lemon-[place], [place], diet gar[place]) ? Tea (hot or iced) ? Milk (low-fat, 2%, lactose free) ? Coffee ? Juice (without pulp) ? Oral Nutrition supplement Breakfast: ? Hot cereal (oatmeal or cream of wheat) ? Scrambled eggs ? Blueberry muffin ? Cold cereal (no whole grain cereals) ? [place] (white) Lunch or Dinner: Deli Items: Hot Items: [place] sandwich Roast [place] Tuna salad (sandwich or alone) Macaroni & Cheese Egg salad (sandwich or alone) Mashed potatoes & gravy Chicken salad (sandwich or alone) Carrots Green beans Cold Sides: Soups: Cottage cheese Vegetable soup Yogurt Chicken noodle Hardboiled egg Dessert: ? Gelatin, pudding Discharge Orders/Prescriptions Prescriptions: New pantoprazole 40 mg Tablet,Delayed Release (Dr/Ec) 40 mg PO DAILY 30 Days Qty: 30 0RF potassium chloride 20 mEq tablet extended release 20 meq PO DAILY 14 Days Qty: 14 0RF Continued ondansetron 8 mg tablet,disintegrating 8 mg PO Q8H PRN (Reason: nausea and vomiting) Qty: 30 2RF Discontinued senna 8.6 mg capsule 8.6 mg PO QHS PRN (Reason: constipation) Referrals / Follow Up: Kunal Chandler MD [Med Staff - Active Staff] - 03/10/25 9:45 am Care Physician,No Primary [Non-Staff] - Morelia Calvillo NP, SENIOR WINDOWS SYSTEMS ENGINEER-C [Primary Care Provider] - Disposition Disposition (needs filled in before D/C Order can be placed): Home, Self Care
--- NOTE | 2025-03-01 09:00 | PCM.DC ---
Discharge Instructions Diet Discharge Diet: - (Transitional soft, food diet) DC O2, CPAP, BIPAP needs Home O2 Discharge instructions: No Dressing / Incision Discharge Activity: May Shower Lifting Restrictions: No lifting greater than 10 pounds for 4 weeks Dressing / Incision Call your doctor if your incision/area has: Continuous Slow Oozing, Sudden Increased Bleeding, Increased Pain/ Swelling, Increased Redness, Foul Smelling Discharge and Swelling at the incision site Call your doctor if you observe: Fever of 101 or Higher Suture Line Care: Avoid Pulling/Pushing and Avoid Pinching/Bending Remove Dressing in: 1 day (Remove large silver dressing tomorrow and leave open to air) Cleanse incision/area with: Soap & Water Follow Up Care Please Follow Up With: Kunal Chandler MD When: Your appointment is scheduled for 03/10 at 9:[address] Chandler. Please arrive 15 minutes early. Please contact our office at [phone], option #4 for a nurse if you have any questions following discharge. Test Results: Test results from this visit will be discussed in further detail at your follow-up appointment, if applicable. Discharge Plan Admission Admit Date/Time: 02/24/25 11:29 Primary Reason for Your Visit: Small bowel obstruction Attending Provider: Handy Royal Primary Care Provider: Morelia Calvillo NP Consulting Providers: Kunal Chandler Instructions Additional Instructions / Restrictions: Your follow-up appointment is scheduled for 03/10 at 9:[address] Chandler. Please arrive 15 minutes early. Please contact our office at [phone], option #4 for a nurse if you have any questions following discharge. Bring ostomy supplies with you to your follow-up. Below is an example of foods to continue eating at discharge. You may increase diet to regular food after 3 days from discharge date. If you have any questions, please contact our office. Transitional Diet Beverages: ? Soda (cola, diet cola, lemon-[place], diet lemon-[place], [place], diet [place]) ? Tea (hot or iced) ? Milk (low-fat, 2%, lactose free) ? Coffee ? Juice (without pulp) ? Oral Nutrition supplement Breakfast: ? Hot cereal (oatmeal or cream of wheat) ? Scrambled eggs ? Blueberry muffin ? Cold cereal (no whole grain cereals) ? [place] (white) Lunch or Dinner: Deli Items: Hot Items: [place] sandwich Roast [place] Tuna salad (sandwich or alone) Macaroni & Cheese Egg salad (sandwich or alone) Mashed potatoes & gravy Chicken salad (sandwich or alone) Carrots Green beans Cold Sides: Soups: Cottage cheese Vegetable soup Yogurt Chicken noodle Hardboiled egg Dessert: ? Gelatin, pudding Discharge Orders/Prescriptions Prescriptions: Continued ondansetron 8 mg tablet,disintegrating 8 mg PO Q8H PRN (Reason: nausea and vomiting) Qty: 30 2RF Discontinued senna 8.6 mg capsule 8.6 mg PO QHS PRN (Reason: constipation) Referrals / Follow Up: Care Physician,No Primary [Non-Staff] - Morelia Calvillo CLIMATOLOGY PROFESSOR, CLIMATOLOGY PROFESSOR-C [Primary Care Provider] - Kunal Chandler MD [Med Staff - Active Staff] - 03/10/25 9:45 am Disposition Disposition (needs filled in before D/C Order can be placed): Home, Self Care
[2025-03-01 09:32] VITALS: BP 141/80; PULSE 80; RESP 16; TEMP 36.9; O2SAT 96
--- NOTE | 2025-03-01 09:38 | WOUNDNOTE ---
Was asked to see patient for recent new jejunostomy. pt has a history of colon cancer. pt had surgery in [place] last year and has a colostomy to the left lower abdomen. there is currently no output from the colostomy. patient also has bilateral nephrostomy tubes. these dressings were removed. sites cleansed with peroxide and new dressings applied. pt and unsure how long these will stay in. recommended patient follow back up with surgeon in [place]. pt with new jejunostomy to the right abdomen. pt has been having high volume output. appliance currently leaking. removed the appliance. stoma is dark pink and moist and is well budded. stomal bar in place. peristomal skin is slightly reddened. cleansed skin with warm water and pat dry. applied a new 2 piece flat [place] appliance with a paste ring and high volume pouch. has been changing the colostomy appliance and feels comfortable with the care. the jejunostomy appliance will be very similar so feels she will not have any difficulty with appliance changes. states that their son orders the ostomy supplies on [employer]. pt has [employer] fund and no insurance. gave the appliance numbers of the one used this am. also aware she could use the same appliances for both stomas if needed. also gave pt and a list of other appliance companies where appliances could be ordered. gave pt information on ways to stay hydrated and prevent dehydration, signs and symptoms of dehydration, and foods that can help thicken the stool. pt and very appreciative of care and are aware to call if any needs arise after discharge.
[2025-03-01] MEDS: Enoxaparin 40 MG/0.4 ML Syringe SC (10:28)
[2025-03-01] MEDS: Pantoprazole Sodium 40 MG in 0.9% Normal Saline (100mL MB+) 100 ML 330 MG IV (10:29)
--- NOTE | 2025-03-01 12:45 | PCM.DC.SUM ---
Providers Date of Admission: 02/24/25 Date of Discharge: 03/01/25 Primary Care Physician: Morelia Calvillo, WENDY Consultations 02/24/25 12:29 Consult: General Surgery Routine Consulting Provider: Kunal Chandler Reason for Consult: SMALL BOWEL OBSTRUCTION EMERGENT Consult: No MD Notified: Yes Date Notified: 02/24/25 Time Notified: 11:33 Method of Notification: Verbal 02/25/25 07:00 Consult: Onc/Wound/freight adjuster Routine Comment: Reason for Consult:: colostomy, nephrotube dressings Reason For Visit: SMALL BOWEL OBSTRUCTION, S/P APR COLOSTOMY Diagnosis Discharge Diagnosis (1) SBO (small bowel obstruction): Status: Acute Code(s): K56.609 - Unspecified intestinal obstruction, unspecified as to partial versus complete obstruction Plan This 59-year-old gentleman is being admitted for small bowel obstruction. Patient has history of rectal cancer status post APR. He had chemotherapy and radiation 4 months ago and then last chemo about 10 days ago. 1. Small bowel obstruction with history of colorectal cancer status post APR and colostomy: Patient is being admitted Medr floor. IV fluid Ringer lactate at 100 mL/h. NG suction at low intermittent wall suction. Monitor bowel emptying. Surgery Dr. Chandler is consulted. CT abdomen images shows multiple distended small bowel loops with largest measuring 3.7 cm. 02/25: Small bowel series shows contrast in the stomach with collection in duodenum and proximal jejunum at 1 hour. Multiple dilated small bowel loops predominantly in the left side. As per surgeon, there is less chance of conservative management therefore surgery was recommended and patient agreed. Plan for surgery today. Mild hypokalemia, electrolyte replacement ordered. 02/26: Patient had small bowel obstruction secondary to adhesions/radiation to the pelvis. Diagnostic laparoscopy converted to exploratory laparotomy with extensive lysis of adhesions and diverting loop jejunostomy on 02/25/2025. Jejunostomy is working good and had bags emptied twice with bilious content. 02/27: Discussed with the nursing staff. IV fluid replacement, Ringer lactate ordered; to be more than jejunostomy output and urine output. Urine output has increased due to IV fluid yesterday. Patient also on full liquid diet. Decreased lung sounds in lung bases therefore incentive spirometry reinforced 02/28: 950 mL stool output since midnight. 675 mL urine output. Diet advanced to soft diet. Electrolytes within normal range. 03/01: His ostomy output was better only 650 mL. Patient tolerated soft diet. Is being discharged. Low normal potassium therefore prescription given for potassium chloride. Follow-up with surgeon Dr. Chandler in the office 2. CA rectum: He follows Dr. Ho. Had C8 FOLFOX on 02/14/2025. Prior to that he finished chemotherapy on 08/13/2024 and radiation on 08/17/2024. 3. Bilateral hydronephrosis status post bilateral nephrostomy in September 2024 in [facility]: Urine in bilateral nephrostomy bag is dark-colored. IV fluid hydration. CT scan does not show hydronephrosis 02/28: Urine output is good. BUN/creatinine 1.1/50.4. 03/01: Patient had total of 125 mL urine output yesterday. Adequate urine output. Had INOCENCIA during hospital course due due to high output ileostomy fistula, creatinine went up from 1.5-1.67 and then normal 1.03 today. INOCENCIA mainly prerenal resolved. 4. History of DVT in the past: Unclear about it location but patient said it was in right thigh. Unclear about the reason why did not complete full course of anticoagulation but he said he had Lovenox and aspirin during hospitalization in [facility]. 5. Irregular rhythm: Twelve-lead EKG shows sinus rhythm with PAC, LAD at 85 bpm.Denies history of A-fib. 6. Chronic anemia: Slight drop in hemoglobin from baseline 12.5 g%. 11.5/33.5%. Mild chronic thrombocytopenia platelet count around 110,000. 7. Mild INOCENCIA: Baseline creatinine around 1.33 in January 2025. Creatinine went from admission 1.39-1.67 therefore qualifies for INOCENCIA. IV fluid ordered, normal saline plus KCl ordered 150 mL/h to compensate jejunostomy loss, high output fistula. NG tube 650 mL. Jejunostomy 2560 mL. DVT prophylaxis, high risk: Lovenox 40 mg subcu daily. Lovenox on hold due to anemia 02/28: Resume Lovenox from tomorrow a.m. Living will/advanced directive/end of life care: Patient does not have living will or advanced directive but in the process of making living well. After discussion of benefits/risks procedures involved with full code, DNR CC arrest and DNR CC, the patient and his opted for full code Patient does want artificial life support including intubation, tube feed, ventilator and/chest compression, central venous catheter, vasopressor and DC shock if needed Laboratory Results 02/28/25 06:20: WBC 3.0 L, RBC 2.79 L, Hgb 9.5 L, Hct 28.4 L, MCV 101.8 H, MCH 34.1 H, MCHC 33.5, RDW Std Deviation 58.0 H, RDW Coeff of Rosalee 15.4 H, Plt Count 77 L, MPV 9.5, Immature Gran % (Auto) 0.700, Neut % (Auto) 59.6, Lymph % (Auto) 15.3 L, [place] % (Auto) 19.7 H, Eos % (Auto) 4.4, Baso % (Auto) 0.3, Absolute Neuts (auto) 1.8 L, Absolute Lymphs (auto) 0.45 L, Nucleated RBC % 0, Differential Comment SCANNED, Platelet Estimate MOD DEC, RBC Morphology NORM C+C, Sodium 138, Potassium 3.8, Chloride 105, Carbon Dioxide 26.0, Anion Gap 8, BUN 17, Creatinine 1.10, Estim Creat Clear Calc 50.42, Est GFR (MDRD) Non-Af 77, BUN/Creatinine Ratio 15.4, Glucose 96, Calcium 8.7 02/28/25 11:19: POC Glucose 119 H Clinical Impression(s) from Imaging Studies Abdomen CT 02/24/25 07:20 IMPRESSION: 1. Multiple distended small bowel loops with differential air-fluid levels measuring up to 3.7 cm, concerning for small bowel obstruction with possible transition in the right lower abdominal quadrant. 2. Bladder wall thickening which may be due to the decompressed state of the bladder or due to cystitis. 3. Small esophageal hiatal hernia. 4. Inguinal hernias, bilaterally. Reading Location: [facility] X-Ray 02/24/25 11:25 IMPRESSION: Tip of the nasogastric tube in the fundus of the stomach. Bilateral nephrostomy catheters. Bowel-gas pattern suggest adynamic/reflex ileus. Reading Location: [facility] Medications at Discharge Home Medications ondansetron 8 mg disintegrating tablet 8 mg PO Q8H PRN nausea and vomiting #30 tabs 11/22/24 pantoprazole 40 mg tablet,delayed release 40 mg PO DAILY 30 days #30 tabs 03/01/25 potassium chloride 20 mEq tablet,extended release 20 meq PO DAILY 2 weeks #14 tabs 03/01/25 Physical Exam Narrative Seen and examined Patient tolerating soft diet. He is ready to be discharged Has a right-sided diverting jejunostomy/ileostomy. Discussed with nursing staff, send ostomy/ileostomy output about 500 mL Physical exam General: Alert, Oriented x3, Cooperative HEENT: Atraumatic, PERRLA, EOMI, Normocephalic. Oral: Oral mucosa dry. No Gingival or Mucosal Lesions/ Ulcerations Neck: Supple, No JVD, Negative Carotid Bruits Chest wall/Lungs: Air entry diminished in bilateral lung bases. No crepitation/rhonchi Cardiovascular: Irregular rhythm normal S1,S2, systolic murmur Abdomen: Bowel Sounds sluggish, soft, Non Tender, colostomy. No significant fecal content in colostomy bag. Jejunostomy has bilious drainage, high output fistula : Bilateral nephrostomy tube,, urine output is increased. Clear in color no renal angle tenderness. No suprapubic tenderness. Extremities: No edema, Capillary Refill Less than 3 Seconds Skin: No rashes, No breakdown Musculoskeletal: No Tenderness to Palpation of Joints or Extremities Neurological: Cranial nerves II-XII grossly intact, DTR 2+/4. No acute focal neurological deficit. Psych/Mental Status: Flat affect Medical Records Data Medical Nutrition Assessment Dietitian: Malnutrition Criteria Met Start: 02/25/25 11:58 Freq: Status: Active Protocol: Document 02/28/25 11:51 GI (Rec: 02/28/25 11:51 SLA [id number]) Nutrition Malnutrition Evidence of Yes Malnutrition Exists Malnutrition (severe Chronic ): Evidenced By Suboptimal Energy Intake (Severe),Weight Loss (Severe), Physical Changes (Severe) Clinical Problem Chronic Disease or Condition Related Malnutrition Etiology related to GI dysfunction and cancer causing inadequate energy intake Signs/Symptoms as evidenced by 23% unintended wt loss and 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 5 Status Active Problem Recommendation Dietitian Continue Transitional with goal of regular diet d/t Recommendations/ signs and symptoms of malnutrition Changes Order ensure plus high protein tid w/ meals for increased nutrition if consumed - prefers chocolate flavor Weight / BMI Weight Weight: 108 lb 7.479 oz Body Mass Index (BMI) 16.4 ABG / Lab / Microbiology Data 03/01/25 04:25 03/01/25 04:25 Laboratory: Laboratory Results - last 24 hr 02/28/25 17:42: POC Glucose 94 03/01/25 04:25: WBC 2.5 L, RBC 2.78 L, Hgb 9.5 L, Hct 27.7 L, MCV 99.6 H, MCH 34.2 H, MCHC 34.3, RDW Std Deviation 54.9 H, RDW Coeff of Rosalee 15.0 H, Plt Count 86 L, MPV 9.7, Immature Gran % (Auto) 1.200 H, Neut % (Auto) 46.6 L, Lymph % (Auto) 22.3, [place] % (Auto) 25.5 H, Eos % (Auto) 4.0, Baso % (Auto) 0.4, Absolute Neuts (auto) 1.2 L, Absolute Lymphs (auto) 0.55 L, Nucleated RBC % 0, Differential Comment SCANNED, Platelet Estimate MOD DEC, RBC Morphology NORM C+C, Sodium 135, Potassium 3.5, Chloride 101, Carbon Dioxide 26.7, Anion Gap 7, BUN 13, Creatinine 1.03, Estim Creat Clear Calc 53.85, Est GFR (MDRD) Non-Af 84, BUN/Creatinine Ratio 12.6, Glucose 97, Calcium 8.5 D/C Instructions Discharge Diet: - (Transitional soft, food diet) Call your doctor if your incision/area has: Continuous Slow Oozing, Sudden Increased Bleeding, Increased Pain/ Swelling, Increased Redness, Foul Smelling Discharge and Swelling at the incision site Call your doctor if you observe: Fever of 101 or Higher Suture Line Care: Avoid Pulling/Pushing and Avoid Pinching/Bending Cleanse incision/area with: Soap & Water DC O2, CPAP, BIPAP Needs Home O2 Discharge instructions: No Please Follow Up With: Kunal Chandler MD When: Your appointment is scheduled for 03/10 at 9:[address] Chandler. Please arrive 15 minutes early. Please contact our office at [phone], option #4 for a nurse if you have any questions following discharge. Meaningful Use Info Meaningful Use Meaningful Use Diagnoses (Choose all that apply): None applicable Ischemic Stroke Statin Dosing Therapy Reference: STATIN DOSE THERAPY REFERENCE: * Patients > 75 years receive moderate or high dose statin therapy. * Patients 75 years or YOUNGER should receive HIGH intensity statin dose unless contraindicated. You will be required to document reason for non-treatment if statin daily dose does not meet guidelines. HIGH DOSE STATIN THERAPY DAILY Atorvastatin > than or = to 40 mg Rosuvastatin > than or = to 20 mg Amlodipine + Atorvastatin > than or = to 2.5/40 mg Ezetimibe + Simvastatin 10/80 mg Simvastatin 80mg Discharge Plan Admission Admit Date/Time: 02/24/25 11:29 Primary Reason for Your Visit: Small bowel obstruction status post jejunostomy/ileostomy. Has BL nephrost Attending Provider: Handy Royal Primary Care Provider: Morelia Calvillo NP Consulting Providers: Kunal Chandler Instructions Additional Instructions / Restrictions: Your follow-up appointment is scheduled for 03/10 at 9:[address] Chandler. Please arrive 15 minutes early. Please contact our office at [phone], option #4 for a nurse if you have any questions following discharge. Bring ostomy supplies with you to your follow-up. Below is an example of foods to continue eating at discharge. You may increase diet to regular food after 3 days from discharge date. If you have any questions, please contact our office. Transitional Diet Beverages: ? Soda (cola, diet cola, lemon-[place], diet lemon-[place], garrett duane, diet garrett duane) ? Tea (hot or iced) ? Milk (low-fat, 2%, lactose free) ? Coffee ? Juice (without pulp) ? Oral Nutrition supplement Breakfast: ? Hot cereal (oatmeal or cream of wheat) ? Scrambled eggs ? Blueberry muffin ? Cold cereal (no whole grain cereals) ? [place] (white) Lunch or Dinner: Deli Items: Hot Items: [place] sandwich Roast [place] Tuna salad (sandwich or alone) Macaroni & Cheese Egg salad (sandwich or alone) Mashed potatoes & gravy Chicken salad (sandwich or alone) Carrots Green beans Cold Sides: Soups: Cottage cheese Vegetable soup Yogurt Chicken noodle Hardboiled egg Dessert: ? Gelatin, pudding Discharge Orders/Prescriptions Prescriptions: New pantoprazole 40 mg Tablet,Delayed Release (Dr/Ec) 40 mg PO DAILY 30 Days Qty: 30 0RF potassium chloride 20 mEq tablet extended release 20 meq PO DAILY 14 Days Qty: 14 0RF Continued ondansetron 8 mg tablet,disintegrating 8 mg PO Q8H PRN (Reason: nausea and vomiting) Qty: 30 2RF Discontinued senna 8.6 mg capsule 8.6 mg PO QHS PRN (Reason: constipation) Referrals / Follow Up: Kunal Chandler MD [Med Staff - Active Staff] - 03/10/25 9:45 am Care Physician,No Primary [Non-Staff] - Morelia Calvillo LACQUER DIPPING MACHINE OPERATOR, LACQUER DIPPING MACHINE OPERATOR-C [Primary Care Provider] - Disposition Disposition (needs filled in before D/C Order can be placed): Home, Self Care Charges/Coding Visit Charges Inpatient E&M: 34157 Disch Hosp >30min
--- NOTE | 2025-03-01 12:54 | CASEMGMT ---
RN CM into pt room, pt in restroom, spoke with pt visitor who states they do have transportation home as long as it is before 2:15pm. Message to Rachael LOWERY who confirms from 's perspective, pt is ok for dc. Updated pt nurse.
[2025-03-01 13:28] VITALS: BP 139/98; PULSE 79; RESP 16; TEMP 36.9; O2SAT 94
--- NOTE | 2025-03-01 15:41 | PHA.DC_ITS ---
Pharmacy [facility] Med Reconciliation Pharmacy Service has performed discharge medication reconciliation for this patient. Medication education papers prepared, patient discharged before I was able to anger control counselor. Medications reviewed. The patient's discharge medication list was reviewed for discrepancies and discrepancies were resolved. Medications at Discharge Home Medications ondansetron 8 mg disintegrating tablet 8 mg PO Q8H PRN nausea and vomiting #30 tabs 11/22/24 pantoprazole 40 mg tablet,delayed release 40 mg PO DAILY 30 days #30 tabs 03/01/25 potassium chloride 20 mEq tablet,extended release 20 meq PO DAILY 2 weeks #14 tabs 03/01/25
== END 2025-03-01 13:38 | disposition home or self-care (01) | DRG 329 ==
LOC: ED 11:32 → MS3 11:58
PROVIDERS: Surgery; Admitting Provider Internal Medicine; Emergency Provider Emergency Medicine; PCP Nurse Practitioner Family; Visit Provider Internal Medicine
PROC: 0D1E0Z4 Bypass Large Intestine to Cutaneous, Open Approach (ICD-10-PCS; CPT 49320; principal; 2025-02-25 12:45)
DX: K56.609 Unspecified intestinal obstruction, unspecified as to partial versus complete obstruction (principal); E43 Unspecified severe protein-calorie malnutrition; D61.810 Antineoplastic chemotherapy induced pancytopenia; N17.9 Acute kidney failure, unspecified; K63.0 Abscess of intestine; C20 Malignant neoplasm of rectum; N13.30 Unspecified hydronephrosis; Z68.1 Body mass index [BMI] 19.9 or less, adult; K40.20 Bilateral inguinal hernia, without obstruction or gangrene, not specified as recurrent; I48.91 Unspecified atrial fibrillation; Z93.4 Other artificial openings of gastrointestinal tract status; K44.9 Diaphragmatic hernia without obstruction or gangrene; Z93.3 Colostomy status; Z92.3 Personal history of irradiation; Z86.718 Personal history of other venous thrombosis and embolism; Z92.21 Personal history of antineoplastic chemotherapy; K56.50 Intestinal adhesions [bands], unspecified as to partial versus complete obstruction; N30.90 Cystitis, unspecified without hematuria; N32.89 Other specified disorders of bladder; Z93.2 Ileostomy status; Z93.6 Other artificial openings of urinary tract status
CPT/HCPCS: 36415; 36591; 74018; 74176; 74250; 80048; 80053; 81001; 82962; 83690; 83735; 84100; 85025; 93005; 94668; 97116; 97161; 97530; 97802; 99285; J2997; A4216; J0666; J2405

== ENCOUNTER 2025-03-24 21:49 | Inpatient (IN) | payer OTHER, SELFPAY ==
[2025-03-24 21:50] VITALS: BP 78/60; PULSE 100; RESP 18; TEMP 36.3; O2SAT 98
[2025-03-24 22:17] VITALS: BP 104/72
[2025-03-24] MEDS: 0.9% Normal Saline (1000mL) 1,000 ML 999 ML IV ×2 (22:19→22:29)
[2025-03-24] MEDS: proCHLORPERazine 10 MG/2 ML Vial 5 MG IV (22:27)
[2025-03-24 22:30] VITALS: BMI 14.0
--- OUTSIDE RECORDS SUMMARY | 2025-03-24 22:35 | XMS RPT_ITS | CCD ---
Author Organization [facility] Care Team Providers Care Community Manager Name Role Phone JOSESITO CASTELLON-ELLY Rangel Unavailable [phone] ADI STANTON, VINICIUS Combs Unavailable SALENA FOSTER Unavailable Unavailable Unavailable ANASTACIA RENDON Unavailable Gregoria Cummings RN Unavailable Unavailable SATURNINO, JERRY Admitting Unavailable SATURNINO, JERRY Primary Care Unavailable JERRY MATAMOROS Attending Unavailable MATAMOROS, JERRY Admitting Unavailable MATAMOROS, JERRY Primary Care Unavailable JERRY MATAMOROS Attending Unavailable ELLY BELLAMY RN ORTHOPEDIC Admitting Unavailab ELLY Carrion NP Primary Care Unavailab ELLY Carrion RN ORTHOPEDIC Attending Unavailab le STEPHANIE ROUSSEAU Admitting Unavailable STEPHANIE ROUSSEAU Primary Care Unavailable STEPHANIE ROUSSEAU Attending Unavailable Self, Self Primary Care Provider Unavailabl e ELLY OLEA Unavailable Unav ailable Randall NEWELL MD Unavailable Guy Ho MD Unavailable Ambrose Leija DO Unavailable Laura Guerra RN Unavailable Unavailable Care Physician, No Primary Primary Care Provider Unavailable Care Physician, No Primary Referring Provider Un available Rubi Martínez Attending Provider Dr. Enrique Romero MD Attending Provider Dr. Guy Ho MD Attending Provider Dr. Enrique Romero MD Referring Provider Dr. Rangle Connor MD Attending Provider Dr. Guy Ho MD Referring Provider Dr. Ambrose Leija DO Other Provider Dr. Gwyn Esquivel DO Emergency Provider [phone] Lele STANTON, Dr. Murrell Admit Provider [phone] Lele STANTON, Dr. Murrell Attending Provider [phone] HARZMAN, HILARY E Attending Unavailable HARZMAN, HILARY E Admitting Unavailable HARZMAN, HILARY E Referring Unavailable SELF, SELF Primary Care Unavailable ANJALI DENTON Attending Unavailable HARZMAN, HILARY E Referring Unavailable SELF, SELF Primary Care Unavailable HARZMAN, HILARY E Referring Unavailable SELF, SELF Primary Care Unavailable SELF, SELF Referring Unavailable SELF, SELF Referring Unavailable HARZMAN, HILARY E Attending Unavailable SELF, SELF Primary Care Unavailable GREG MASON Attending Unavailable SELF, SELF Primary Care Unavailable CARMELINA SANDERS C Referring Unavailable SELF, SELF Primary Care Unavailable HICKEY, SHRUTHI E Referring Unavailable HICKEY, SHRUTHI E Attending Unavailable SELF, SELF Referring Unavailable HARZMAN, HILARY E Attending Unavailable SELF, SELF Primary Care Unavailable SELF, SELF Referring Unavailable SELF, SELF Primary Care Unavailable SELF, SELF Referring Unavailable HARZMAN, HILARY E Attending Unavailable SELF, SELF Primary Care Unavailable HARZMAN, HILARY E Referring Unavailable HARZMAN, HILARY E Attending Unavailable SELF, SELF Primary Care Unavailable SELF, SELF Primary Care Unavailable SELF, SELF Referring Unavailable GREG MASON Attending Unavailable IHISSCHEDULE, INTERVENTIONAL RAD Attending Unavailable IHISSCHEDULE, INTERVENTIONAL RAD Admitting Unavailable SELF, SELF Primary Care Unavailable HARZMAN, HILARY E Attending Unavailable UNKNOWN, PROVIDER Referring Unavailable CONSULT, SURGERY - GENERAL (EMERGENT) Consulting Unavailable HARZMAN, HILARY E Admitting Unavailable HARZMAN, HILARY E Attending Unavailable CONSULT, SURGERY - GENERAL (EMERGENT) Consulting Unavailable SELF, SELF Primary Care Unavailable MARCIA VASQUEZ Referring Unavailable SELF, SELF Referring Unavailable HARZMAN, HILARY E Attending Unavailable HARZMAN, HILARY E Admitting Unavailable CONSULT, UROLOGY Consulting Unavailable SELF, SELF Primary Care Unavailable Ramesh STANTON, Dr. Kunal Driscoll Other Provider [phone] Josesito RN ORTHOPEDIC-C, Elly Primary Care Provider Lele STANTON, Dr. Murrell Other Provider [phone] Ramesh STANTON, Dr. Kunal Driscoll Attending Provider Reggie STANTON, Dr. Noriega Attending Provider Rachael Tierney PA-C Attending Provider Kunal Chandler Consulting Unavailable Magdafstettmiguel a RN ORTHOPEDIC, Elly Primary Care Unavailab le Handy Royal Attending Unavailable Handy Royal Admitting Unavailable Handy Royal Consulting Unavailable Care Physician, No Primary Referring Unava ilable Care Physician, No Primary Primary Care Unava ilable Enrique Romero Attending Unavailable Care Physician, No Primary Referring Unava ilable Care Physician, No Primary Primary Care Unava ilable Daren RN ORTHOPEDIC, Rubi Attending Unavailable Ambrose Leija Attending Unavailable Hofstetter RN ORTHOPEDIC, Elly Primary Care Unavailab Ambrose Mayes Attending Unavailable Ambrose Leija Referring Unavailable Hofstetter RN ORTHOPEDIC, Elly Primary Care Unavailab le Guy Ho Attending Unavailable Hofstetter RN ORTHOPEDIC, Elly Referring Unavailab le Hofstetter RN ORTHOPEDIC, Elly Primary Care Unavailab le Care Physician, No Primary Primary Care Unava ilable Care Physician, No Primary Primary Care Unava ilable Leah Kidd Attending Unavailable Handy Royal Referring Unavailable Care Physician, No Primary Primary Care Unava ilable Cori Stephens Attending Unavailable Enrique Romero Attending Unavailable Care Physician, No Primary Primary Care Unava ilable Ambrose Leija Referring Unavailable Hofstetter RN ORTHOPEDIC, Elly Primary Care Unavailab Ambrose Mayes Attending Unavailable Ambrose Leija Attending Unavailable Ambrose Leija Referring Unavailable Hofstetter RN ORTHOPEDIC, Elly Primary Care Unavailab le Hofstetter RN ORTHOPEDIC, Elly Primary Care Unavailab Ambrose Mayes Referring Unavailable Ambrose Leija Attending Unavailable Care Physician, No Primary Referring Unava ilable Care Physician, No Primary Primary Care Unava ilable Guy Ho Attending Unavailable Hofstetter RN ORTHOPEDIC, Elly Referring Unavailab le Hofstetter RN ORTHOPEDIC, Elly Primary Care Unavailab le Daren RN ORTHOPEDIC, Rubi Attending Unavailable Ambrose Leija Attending Unavailable Ambrose Leija Referring Unavailable Hofstetter RN ORTHOPEDIC, Elly Primary Care Unavailab le Hofstetter RN ORTHOPEDIC, Elly Primary Care Unavailab le Hofstetter RN ORTHOPEDIC, Elly Referring Unavailab le Daren RN ORTHOPEDIC, Rubi Attending Unavailable Hofstetter RN ORTHOPEDIC, Elly Referring Unavailab le Hofstetter RN ORTHOPEDIC, Elly Primary Care Unavailab le Prah, Guy Attending Unavailable Hofstetter RN ORTHOPEDIC, Elly Referring Unavailab le Hofstetter RN ORTHOPEDIC, Elly Primary Care Unavailab le Daren RN ORTHOPEDIC, Rubi Attending Unavailable Hofstetter RN ORTHOPEDIC, Elly Referring Unavailab le Hofstetter RN ORTHOPEDIC, Elly Primary Care Unavailab le Prah, Guy Attending Unavailable Hofstetter RN ORTHOPEDIC, Elly Primary Care Unavailab Kunal Richard Attending Unavailable Kunal Chandler Referring Unavailable Kunal Chandler Consulting Unavailable Kunal Chandler Attending Unavailable Care Physician, No Primary Referring Unava ilable Care Physician, No Primary Primary Care Unava ilable Liss, Ambrose Referring Unavailable Ambrose Leija Attending Unavailable Care Physician, No Primary Primary Care Unava ilable Care Physician, No Primary Primary Care Unava ilable Sher Arndt Attending Unavailable Ambrose Leija Referring Unavailable LissAmbrose diaz Attending Unavailable Care Physician, No Primary Primary Care Unava ilable Liss, Ambrose Referring Unavailable Liss, Ambrose Attending Unavailable Care Physician, No Primary Primary Care Unava ilable Rachael Ward Attending Unavailable Care Physician, No Primary Referring Unava ilable Care Physician, No Primary Primary Care Unava ilable Daren RN ORTHOPEDIC, Rubi Attending Unavailable Guy Ho Attending Unavailable Care Physician, No Primary Referring Unava ilable Care Physician, No Primary Primary Care Unava ilable Nick, Watson Referring Unavailable Nick, Watson Attending Unavailable Care Physician, No Primary Primary Care Unava ilable Kunal Chandler Consulting Unavailable Ivantetter RN ORTHOPEDIC, Elly Primary Care Unavailab Handy Caruso Attending Unavailable Lele Handy Admitting Unavailable Nick, Watson Referring Unavailable Nick, Watson Attending Unavailable Care Physician, No Primary Primary Care Unava ilable Nick, Watson Referring Unavailable Nick, Watson Attending Unavailable Care Physician, No Primary Primary Care Unava ilable Care Physician, No Primary Primary Care Unava ilable hSer Arndt Attending Unavailable Rangel Connor Attending Unavailable Care Physician, No Primary Primary Care Unava ilable Care Physician, No Primary Referring Unava ilable Rangel Connor Attending Unavailable Care Physician, No Primary Primary Care Unava ilable Care Physician, No Primary Referring Unava ilable Care Physician, No Primary Primary Care Unava ilable Daren RN ORTHOPEDIC, Rubi Attending Unavailable Care Physician, No Primary Referring Unava ilable Kunal Chandler Attending Unavailable Magdafsjuan antonioer RN ORTHOPEDIC, Elly Referring Unavailab le Care Physician, No Primary Primary Care Unava ilable Care Physician, No Primary Primary Care Unava ilable Prah, Guy Attending Unavailable Jerry Matamoros Referring Unavailable Care Physician, No Primary Primary Care Unava ilable Care Physician, No Primary Referring Unava ilable Pralisa, Guy Attending Unavailable Care Physician, No Primary Referring Unava ilable Care Physician, No Primary Primary Care Unava ilable Prah, Guy Attending Unavailable Care Physician, No Primary Referring Unava ilable Care Physician, No Primary Primary Care Unava ilable Daren RN ORTHOPEDIC, Rubi Attending Unavailable Care Physician, No Primary Primary Care Unava ilable Ambrose Leija Attending Unavailable Care Physician, No Primary Referring Unava ilable Care Physician, No Primary Referring Unava ilable Care Physician, No Primary Primary Care Unava ilable Prah, Guy Attending Unavailable Salena Paredes Attending Unavailable Care Physician, No Primary Primary Care Unava ilable Care Physician, No Primary Referring Unava ilable Vic, Guy Attending Unavailable Ivantehusseiner RN ORTHOPEDIC, Elly Primary Care Unavailab Kunal Richard Attending Unavailable Kunal Chandler Referring Unavailable Care Physician, No Primary Primary Care Unava ilable Pralisa, Guy Referring Unavailable Vic, Guy Attending Unavailable Care Physician, No Primary Primary Care Unava ilable Pralisa, Guy Referring Unavailable Pralisa, Guy Attending Unavailable Ambrose Leija Consulting Unavailable Kunal Chandler Attending Unavailable Handy Royal Referring Unavailable Hofstetter RN ORTHOPEDIC, Elly Referring Unavailab le Hofstetter RN ORTHOPEDIC, Elly Primary Care Unavailab le PrahGuy Attending Unavailable Hofstetter RN ORTHOPEDIC, Elly Referring Unavailab le Hofstetter RN ORTHOPEDIC, Elly Primary Care Unavailab le Daren RN ORTHOPEDIC, Rubi Attending Unavailable Allergies Allergy Classification Reported Allergen(s) Allergy Type Date of Onset Reaction(s) Facility Unclassified (1 source) 10/22/2023 (+) CDIFF TOXIN; Translations: [10/22/2023 (+) CDIFF TOXIN] Propensity to adverse reactions (disorder) [facility] Repository Medications Current Medications Medication Drug Class(es) Dates Sig (Normalized) Sig (Original) acetaminophen 325 mg oral tablet (18 sources) Start: 10-12-2024 End: 10-18-2024 975 mg, Oral, 3 times daily, First dose on Fri10/12/24 at 1615, Until Discontinued, Maximum dose of acetaminophen is 4000 mg from all sources in 24 hours. Start: 06-25-2024 End: 06-25-2024 take 1 dose by mouth once 975 mg, Oral, ONCE, 1 dose, On Fri06/25/24 at 1045, Pre-op/Pre-Proc Start: 05-09-2024 End: 10-25-2024 take 2 tablets by mouth every six hours as needed Acetaminophen 325 mg tablet Discontinued 650 mg PO EVERY 6 HOURS as needed June 08, 2024 12:00am July 13, 2024 2:45pm Start: 04-29-2024 End: 05-09-2024 975 mg, Oral, 3 TIMES DAILY NEEDED, Starting on Fri04/30/24 at 2315, Until 05/09/24 at 1614, Mild Pain, Moderate Pain, Maximum dose of acetaminophen is 4000 mg from all sources in 24 hours., Discharge Readmit Adhesive Tape (Medipore Surgical 2x10yd) Tape (11 sources) Start: 05-04-2024 Adhesive Tape (Medipore Surgical 2x10yd) Tape Use as directed for wound care 3 Each 3 05/04/2024 Active Gauze Pads & Dressings (Kerlix Super Sponges Medium) 6X6-3/4 Pads (11 sources) Start: 05-04-2024 Gauze Pads & Dressings (Kerlix Super Sponges Medium) 6X6-3/4 Pads Use as directed for wound care 40 Each 1 05/04/2024 Active Gauze Pads & Dressings (Surgical Dressing) 5X9 Pads (11 sources) Start: 05-04-2024 Gauze Pads & Dressings (Surgical Dressing) 5X9 Pads Use as directed for wound care 12 Each 3 05/04/2024 Active ondansetron 8 mg disintegrating oral tablet (7 sources) Serotonin-3 Receptor Antagonist Start: 11-22-2024 take 1 tablet by mouth every eight hours as needed for nausea and vomiting Ondansetron 8 mg tablet,disintegra ting Active 8 mg PO Q8H as needed for nausea and vomiting November 22, 2024 1:00am Start: 10-12-2024 End: 10-18-2024 take 1 tablet by mouth every six hours as needed Ondansetron (ZOFRAN) tablet 4 mg Start: 07-19-2024 End: 10-11-2024 take 1 tablet by mouth every eight hours as needed for nausea and vomiting Ondansetron 4 mg tablet,disintegrating Discontinued 4 mg PO Q8H as needed for nausea and vomiting July 19, 2024 12:00am October 11, 2024 11:59am Start: 04-30-2024 End: 05-09-2024 take 1 tablet by mouth every six hours as needed Ondansetron (ZOFRAN) tablet 4 mg Start: 04-29-2024 End: 04-30-2024 take 1 tablet by mouth every six hours as needed Ondansetron (ZOFRAN) tablet 4 mg pantoprazole 40 mg delayed release oral tablet (2 sources) Proton Pump Inhibitor Start: 03-01-2025 take 1 tablet by mouth once daily Pantoprazole 40 mg Tablet,Delayed Release (Dr/Ec) Active 40 mg PO DAILY March 01, 2025 12:00am Start: 10-13-2024 End: 10-18-2024 40 mg, Intravenous, EVERY 12 HOURS, First dose on Fri10/13/24 at 1100, Until Discontinued, Dilute each 40 mg vial with 10 mL of NS. All bolus doses, whether 40 mg or 80 mg, should be administered over at least two minutes., Indications: Inpt Stress Ulcer Prophylaxis potassium chloride 20 meq extended release oral tablet (4 sources) Start: 03-01-2025 take 1 tablet by mouth once daily Potassium Chloride 20 mEq tablet extended release Active 20 meq PO DAILY March 01, 2025 12:00am Start: 12-28-2024 End: 02-24-2025 take 2 tablets by mouth once daily Potassium Chloride 20 mEq tablet extended release Discontinued 40 meq PO daily December 28, 2024 12:00am February 24, 2025 10:15am Start: 04-30-2024 End: 05-09-2024 Potassium chloride (K-DUR) t ablet ER 20-80 mEq Completed/Discontinued Medications Medication Drug Class(es) Dates Sig (Normalized) Sig (Original) acetaminophen 325 mg / oxyCODONE hydrochloride 5 mg oral tablet (2 sources) Opioid Agonist Start: 07-15-2024 End: 08-09-2024 Oxycodone-Acetamino phen (Percocet) 5-325 mg tablet Discontinued 1 {tbl} PO Q8H as needed for pain 4 3 July 15, 2024 August 09, 2024 9:56am aigdalina (2 sources) Start: 06-09-2024 End: 06-09-2024 aigdalina Discontinued PO DAILY June 09, 2024 12:00am June 09, 2024 3:07pm 20 ml albumin human, custodial 250 mg/ml injection (1 source) Human Serum Albumin Start: 10-13-2024 End: 10-13-2024 25 g, Intravenous, Administer over 60 Minutes, ONCE, 1 dose, On Fri10/13/24 at 1130, At [facility], in emergencies, administer as rapidly as necessary to improve clinical conditions. Rate of infusion is based on dose: 12.5g given over 30min, 25g given over 60min, 50g given over 120min., Indications: Fluid Resuscitation amigdalina (2 sources) Start: 06-09-2024 End: 07-13-2024 amigdalina Discontinued PO DAILY June 09, 2024 3:06pm July 13, 2024 2:45pm amiodarone hydrochloride 200 mg oral tablet (11 sources) Antiarrhythmic Start: 05-01-2024 End: 10-18-2024 take 1 tablet by mouth once daily Amiodarone 200 mg tablet Discontinued 200 mg PO DAILY June 08, 2024 12:00am June 09, 2024 3:06pm amoxicillin 50 mg/ml / clavulanate 12.5 mg/ml oral suspension (10 sources) Penicillin-class Antibacterial Start: 02-16-2025 End: 02-24-2025 take 1 mL by mouth three times daily Amoxicillin-Pot Clavulanate (Augmentin) 250-62.5 mg/5 mL suspension for reconstitution Discontinued 10 mL PO THREE TIMES A DAY 150 February 16, 2025 12:00am February 24, 2025 10:15am Start: 10-16-2024 End: 10-23-2024 take 1 tablet by mouth every twelve hours, then take 1 tablet by mouth once in the evening, then take 1 tablet by mouth every twelve hours Amoxicillin-clavulanate 875-125 MG table t Take 1 tablet by mouth every 12 hours for 10 doses. Take 1 tablet once in the evening of 10/18/2024. Beginning 10/19/2024 take 1 tablet every 12 hours. 10 tablet 10/18/2024 10/23/2024 Active Start: 10-15-2024 End: 10-16-2024 take 1 tablet by mouth every twelve hours 1 tablet, Oral, EVERY 12 HOURS, First dose on Fri10/15/24 at 2100, Until Discontinued Start: 05-08-2024 End: 05-18-2024 take 1 tablet by mouth every twelve hours Amoxicillin-clavulanate 875-125 MG table t Take 1 tablet by mouth every 12 hours for 9 days. 18 tablet 05/09/2024 05/18/2024 Active ascorbic acid 250 mg oral tablet (16 sources) Vitamin C Start: 06-09-2024 End: 02-24-2025 take 1 g by mouth once daily Ascorbic Acid (Vitamin C) 250 mg tablet Discontinued 1 g PO DAILY June 09, 2024 3:03pm February 24, 2025 10:15am Start: 06-08-2024 End: 06-09-2024 take 1 tablet by mouth twice daily Ascorbic Acid (Vitamin C) 250 mg tablet Discontinued 250 mg PO TWICE A DAY June 08, 2024 12:00am June 09, 2024 3:06pm Start: 05-03-2024 End: 05-09-2024 take 1 tablet by mouth twice daily Ascorbic acid 250 MG tablet Take 1 tablet by mouth 2 times daily. 30 tablet 05/09/2024 Active aspirin 81 mg delayed release oral tablet (14 sources) Platelet Aggregation Inhibitor, Nonsteroidal Anti-inflammatory Drug Start: 06-08-2024 End: 11-05-2024 take 1 tablet by mouth once daily Aspirin 81 mg tablet,delayed release (DR/EC) Discontinued 81 mg PO DAILY June 08, 2024 12:00am November 05, 2024 11:18am Start: 05-01-2024 End: 05-09-2024 aspirin 81 MG Chew Tab chewa ble tablet Chew 1 tablet daily. 30 tablet 05/09/2024 Active calcium chloride 0.0014 meq/ ml / potassium chloride 0.004 meq/ml / sodium chloride 0.103 meq/ml / sodium lactate 0.028 meq/ml injectable solution (5 sources) Start: 10-12-2024 End: 10-12-2024 500 mL, Intravenous, ONCE, 1 dose, On Fri10/12/24 at 0500, Fluid Bolus Start: 10-12-2024 End: 10-17-2024 Intravenous, at 50 mL/hr, CO NTINUOUS, Starting on Fri10/12/24 at 0030, Until Fri10/17/24 at 0551 Start: 06-25-2024 End: 06-25-2024 Intravenous, at 50 mL/hr, CO NTINUOUS, Starting on Fri06/25/24 at 1045, Until Fri06/25/24 at 1450, Pre-op/Pre-Proc Start: 04-29-2024 End: 04-29-2024 Intravenous, at 75 mL/hr, CO NTINUOUS, Starting on Fri04/29/24 at 0100, Until Toma 04/29/24 at 0329, For hydration cefTRIAXone 2000 mg injection (2 sources) Cephalosporin Antibacterial Start: 05-07-2024 End: 05-07-2024 2 g, Intravenous, Administer over 30 Minutes, 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, 1 dose, Starting on Fri05/07/24 at 1353, Until Fri05/07/24 at 1601, Surgical Prophylaxis, Initiate antibiotic administration 30-60 minutes prior to surgical incision and complete administration prior to surgical incision., Pre-op/Pre-Proc Start: 04-30-2024 End: 04-30-2024 2 g, Intravenous, Administer over 30 Minutes, 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, 1 dose, Starting on Fri04/30/24 at 1413, Until Fri04/30/24 at 1610, Surgical Prophylaxis, Initiate antibiotic administration 30-60 minutes prior to surgical incision and complete administration prior to surgical incision., Pre-op/Pre-Proc ciprofloxacin 500 mg oral tablet (4 sources) Quinolone Antimicrobial Start: 2024 End: 01-31-2025 take 1 tablet by mouth twice daily Ciprofloxacin Hcl (Cipro) 500 mg tablet Discontinued 500 mg PO TWICE A DAY 2024 12:00am January 31, 2025 9:48am Start: 11-24-2024 End: 12-06-2024 take 1 tablet by mouth twice daily Ciprofloxacin Hcl 750 mg tablet Discontinued 750 mg PO TWICE A DAY November 24, 2024 1:00am December 06, 2024 10:37am citicoline 250 mg oral tablet (2 sources) Start: 06-09-2024 End: 06-24-2024 take 1 mg by mouth after breakfast Citicoline 250 mg capsule Discontinued mg PO June 09, 2024 12:00am June 24, 2024 2:50pm 1 tab after breakfast mon-fri dexamethasone 4 mg oral tablet (2 sources) Corticosteroid Start: 08-16-2024 End: 09-24-2024 take 1 tablet by mouth once daily Dexamethasone 4 mg tablet Discontinued 4 mg PO daily August 16, 2024 12:00am September 24, 2024 10:18am diatrizoate meglumine-sodium (GASTROGRAFIN) 66-10 % oral solution (Small Bowel Obstruction) 120 mL (1 source) Start: 10-14-2024 End: 10-14-2024 120 mL, Per NG tube, ONCE, 1 dose, On Toma 10/14/24 at 0915, This patient is undergoing 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 Place NGT to suction immediately after insertion. Do not use for medication administration until KUB confirmation. 1. NGT to low intermittent suction for 2 hours. 2. Nursing: Administer Gastrografin 120mL via NGT. 3. Clamp for 2 hours. 4. Return NGT to intermittent suction. If patient develops nausea/vomiting, before 2 hours return to suction and page surgical team. Serial KUBs will assess for progress. Protocol available via attached reference link. docusate sodium 100 mg oral capsule (14 sources) Start: 05-31-2024 End: 07-13-2024 take 1 capsule by mouth twice daily Docusate Sodium 100 mg capsule Discontinued 100 mg PO TWICE A DAY June 08, 2024 12:00am July 13, 2024 2:45pm Start: 05-03-2024 End: 06-08-2024 take 1 capsule by mouth every twelve hours Docusate 100 MG capsule Take 1 capsule by mouth every 12 hours. 60 capsule 05/09/2024 06/08/2024 0.4 ml enoxaparin sodium 100 mg/ml prefilled syringe (2 sources) Low Molecular Weight Heparin Start: 04-29-2024 End: 05-09-2024 inject 40 mg by subcutaneous injection every twenty-four hours 40 mg, Subcutaneous, EVERY 24 HOURS, First dose on [facility] 05/01/24 at 0900, Until Discontinued, For SUBCUTANEOUS route ONLY: alternate injection sites between left and right abdominal wall, pinching location and avoiding area around navel. If unable to use abdominal sites, may use the front or side of thighs., Indications: DVT/PE prophylaxis EPINEPHrine / Lidocaine (1 source) Antiarrhythmic, alpha-Adrenergic Agonist, beta-Adrenergic Agonist, Catecholamine, Amide Local Anesthetic Start: 04-29-2024 End: 04-29-2024 20 mL, Other, ONCE, 1 dose, On Toma 04/29/24 at 0330, To bedside for physician administration. ferrous fumarate 89 mg oral tablet (2 sources) Start: 06-09-2024 End: 06-24-2024 take 1 tablet by mouth once daily Ferrous Fumarate 89 mg (29 mg iron) tablet Discontinued 89 mg PO DAILY June 09, 2024 12:00am June 24, 2024 2:49pm ferrous gluconate 324 mg oral tablet (2 sources) Start: 09-13-2024 End: 11-03-2024 take 1 tablet by mouth once daily Ferrous Gluconate 324 mg (38 mg iron) tablet Discontinued 324 mg PO daily 90 90 September 13, 2024 1:00am November 03, 2024 9:58am folic acid 1 mg oral tablet (2 sources) Start: 06-09-2024 End: 07-13-2024 take 1 tablet by mouth once daily Folic Acid 1 mg tablet Discontinued 1 mg PO DAILY June 09, 2024 12:00am July 13, 2024 2:45pm Gadopiclenol SOLN 1-25 mL (1 source) Start: 10-06-2024 End: 10-06-2024 1-25 mL, Intravenous, ONCE, 1 dose, On 10/06/24 at 1615 500 ml glucose 50 mg/ml / potassium chloride 0.02 meq/ml / sodium chloride 4.5 mg/ml injection (2 sources) Start: 04-29-2024 End: 05-01-2024 Intravenous, at 75 mL/hr, CONTINUOUS, Starting on Fri04/30/24 at 1415, Until 05/01/24 at 0931, Discharge Readmit 250 ml glucose 50 mg/ml / sodium chloride 4.5 mg/ml injection (2 sources) Start: 05-06-2024 End: 05-08-2024 Intravenous, at 100 mL/hr, CONTINUOUS, Starting on Fri05/07/24 at 0015, Until 05/08/24 at 2100 1 ml heparin sodium, porcine 5000 unt/ml prefilled syringe (1 source) Unfractionated Heparin, Anti-coagulant Start: 10-12-2024 End: 10-18-2024 inject 5000 [IU] by subcutaneous injection every twelve hours 5,000 Units, Subcutaneous, EVERY 12 HOURS, First dose on Fri10/12/24 at 0900, Until Discontinued, DO NOT ADMINISTER ON DAY OF SURGERY/INVASIVE PROCEDURE UNLESS OTHERWISE DIRECTED. Iohexol (OMNIPAQUE) 300 MG/ML 50 mL in Water liquid (free water) 950 mL (3 sources) Start: 05-20-2024 End: 05-20-2024 take 1 dose by mouth once 15,000 mg, Oral, ONCE, 1 dose, On Toma 05/20/24 at 1215, For administration to inpatients, to be given by RN on inpatient nursing unit., CT Procedure Start: 05-05-2024 End: 05-05-2024 take 1 dose by mouth once 15,000 mg, Oral, ONCE, 1 dos e, On Fri05/05/24 at 0815, For administration to inpatients, to be given by RN on inpatient nursing unit., CT Procedure Start: 04-29-2024 End: 04-29-2024 take 1 dose by mouth once 15,000 mg, Oral, ONCE, 1 dos e, On Fri04/29/24 at 0445, For administration to inpatients, to be given by RN on inpatient nursing unit., CT Procedure iohexol (OMNIPAQUE) 350 MG/M L injection 1-171 mL (3 sources) Start: 05-20-2024 End: 05-20-2024 1-171 mL, Intravenous, ONCE, 1 dose, On Toma 05/20/24 at 1300, Extravasation Risk, CT Procedure Start: 05-05-2024 End: 05-05-2024 1-171 mL, Intravenous, ONCE, 1 dose, On Fri05/05/24 at 1445, Extravasation Risk, CT Procedure Start: 04-29-2024 End: 04-29-2024 1-171 mL, Intravenous, ONCE, 1 dose, On Toma 04/29/24 at 0700, Extravasation Risk, CT Procedure 10 ml lidocaine hydrochloride 20 mg/ml injection (1 source) Antiarrhythmic, Amide Local Anesthetic Start: 10-12-2024 End: 10-18-2024 0-400 mg (0-20 mL), Infiltration, ADMINISTER DIRECTED, Starting on Fri10/12/24 at 1819, Until Fri10/18/24 at 1454, Other, Numbing agent for procedure, Subcutaneous injection as numbing agent. For administration intra-procedure by physician. Recorded MAR dose is the cumulative amount given during procedure., Intra-op/Intra-Proc Magnesium Oxide (1 source) Start: 04-30-2024 End: 05-09-2024 magnesium oxide (MAG-OX) tablet 400-800 mg 100 ml magnesium sulfate 10 mg/ml injection (2 sources) Start: 10-15-2024 End: 10-16-2024 1 g, Intravenous, Administer over 60 Minutes, EVERY 1 HOUR, 2 doses, First dose on 10/16/24 at 0600, Last dose on Fri10/16/24 at 0700 melatonin 3 mg oral tablet (1 source) Start: 10-12-2024 End: 10-18-2024 take 6 mg by mouth once daily at bedtime as needed 6 mg, Oral, DAILY AT BEDTIME NEEDED, Starting on Fri10/12/24 at 0017, Until Fri10/18/24 at 1454, Insomnia 100 ml metroNIDAZOLE 5 mg/ml injection (2 sources) Nitroimidazole Antimicrobial Start: 05-07-2024 End: 05-07-2024 500 mg, Intravenous, at 200 mL/hr, Administer over 30 Minutes, 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, 1 dose, Starting on Fri05/07/24 at 1353, Until Fri05/07/24 at 1538, Surgical Prophylaxis, Initiate antibiotic administration 30-60 minutes prior to surgical incision and complete administration prior to surgical incision., Pre-op/Pre-Proc Start: 04-30-2024 End: 04-30-2024 500 mg, Intravenous, at 200 mL/hr, Administer over 30 Minutes, 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, 1 dose, Starting on Fri04/30/24 at 1413, Until Fri04/30/24 at 1618, Surgical Prophylaxis, Initiate antibiotic administration 30-60 minutes prior to surgical incision and complete administration prior to surgical incision., Pre-op/Pre-Proc Multivitamin w/ minerals (THERAPEUTIC-M) tablet 1 tablet (1 source) Start: 05-04-2024 End: 05-09-2024 take 1 tablet by mouth once daily 1 tablet, Oral, DAILY, First dose on Fri05/04/24 at 0900, Until Discontinued oxyCODONE hydrochloride 5 mg oral tablet (3 sources) Opioid Agonist Start: 10-12-2024 End: 10-18-2024 take 5 mg nasogastric route every four hours as needed oxyCODONE (ROXICODONE) oral solution 5 mg Start: 04-30-2024 End: 05-09-2024 take 1 tablet by mouth every four hours as needed oxyCODONE (ROXICODONE) tablet 5 mg Start: 04-29-2024 End: 04-30-2024 take 1 tablet by mouth every four hours as needed oxyCODONE (ROXICODONE) tablet 5 mg phenol 14 mg/ml mucosal spray (3 sources) Start: 10-12-2024 End: 10-18-2024 2 spray, Mouth/Throat, NE EDED, Starting on Fri10/12/24 at 0857, Until Fri10/18/24 at 1454, Sore Throat, Other, pain from NG, Patient may self-administer. Start: 04-30-2024 End: 05-09-2024 Start: 04-29-2024 End: 04-30-2024 1 spray, Mouth/Throat, NE EDED, Starting on Fri04/29/24 at 0325, Until Fri04/30/24 at 1338, Sore Throat, Patient may self-administer. piperacillin 4000 mg / tazobactam 500 mg injection (5 sources) Penicillin-class Antibacterial, beta Lactamase Inhibitor Start: 10-15-2024 End: 10-15-2024 4.5 g, Intravenous, Administer over 4 Hours, EVERY 8 HOURS NON-STANDARD, First dose (after last modification) on Fri10/15/24 at 0800, Until Discontinued, Infuse STAT doses over 30 minutes. Infuse other doses over 4 hours. Contains a penicillin., Indications: Empiric therapy Start: 10-12-2024 End: 10-15-2024 4.5 g, Intravenous, Administ er over 4 Hours, EVERY 12 HOURS, First dose (after last reorder) on Fri10/12/24 at 2100, Until Discontinued, Infuse STAT doses over 30 minutes. Infuse other doses over 4 hours. Contains a penicillin., Indications: Empiric therapy Start: 10-12-2024 End: 10-12-2024 4.5 g, Intravenous, Administ er over 4 Hours, EVERY 8 HOURS NON-STANDARD, 2 doses, First dose on Fri10/12/24 at 0100, Last dose on Fri10/12/24 at 0900, Infuse STAT doses over 30 minutes. Infuse other doses over 4 hours. Contains a penicillin., Indications: Empiric therapy Start: 04-29-2024 End: 05-08-2024 4.5 g, Intravenous, Administ er over 4 Hours, EVERY 8 HOURS NON-STANDARD, First dose (after last modification) on Fri04/30/24 at 1900, Until Discontinued, Infuse STAT doses over 30 minutes. Infuse other doses over 4 hours. Contains a penicillin., Indications: Empiric therapy, Discharge Readmit Potassium chloride 10 mEq in sterile water 100 ml premix IVPB (1 source) Start: 04-29-2024 End: 04-29-2024 Potassium chloride 10 mEq in sterile water 100 ml premix IVPB Potassium phosphates 30 mmol in Sodium chloride 0.9%, with overfill 285 mL (total volume) IVPB (1 source) Start: 10-16-2024 End: 10-16-2024 30 mmol, Intravenous, Administer over 4 Hours, ONCE, 1 dose, On Fri10/16/24 at 0600, Central line required. Prochlorperazine (3 sources) Phenothiazine Start: 10-12-2024 End: 10-18-2024 take 1 tablet by mouth every six hours as needed Prochlorperazine (COMPAZINE) tablet 5 mg Start: 04-30-2024 End: 05-09-2024 take 1 tablet by mouth every six hours as needed Prochlorperazine (COMPAZINE) tablet 5 mg Start: 04-29-2024 End: 04-30-2024 take 1 tablet by mouth every six hours as needed Prochlorperazine (COMPAZINE) tablet 5 mg sennosides, custodial 8.6 mg oral capsule (4 sources) Start: 08-09-2024 End: 03-01-2025 take 1 capsule by mouth at bedtime as needed for constipation Sennosides (Senna) 8.6 mg capsule Discontinued 8.6 mg PO AT BEDTIME as needed for constipation September 24, 2024 1:00am March 01, 2025 9:26am 1000 ml sodium chloride 9 mg/ml injection (15 sources) Start: 10-12-2024 End: 10-18-2024 Intravenous, at 20 mL/hr, NEEDED, Starting on Tu10/12/24 at 0013, Until Fri10/18/24 at 1454, Carrier Fluid - See Admin. Inst, 250mL 0.9NS to be used as carrier fluid for intermittent small volume or piggyback medication administration as needed. Infusion rate of the carrier fluid should be set at 20 mL/hr unless the rate as the intermittent medication is less than 20 mL/hr. For intermittent medications with a rate less than 20 mL/hr set the carrier fluid at that rate of the intermittent or piggy back medication. Start: 10-06-2024 End: 10-06-2024 1-250 mL, Intravenous, ONCE NEEDED, 1 dose, Starting on Fri10/06/24 at 1611, Until Fri10/06/24 at 1620, Flush, MR Procedure Start: 05-20-2024 End: 05-20-2024 1-100 mL, Intravenous, ONCE NEEDED, 1 dose, Starting on Toma 05/20/24 at 1250, Until Toma 05/20/24 at 1251, Flush, CT Procedure Start: 05-05-2024 End: 05-05-2024 1-100 mL, Intravenous, ONCE NEEDED, 1 dose, Starting on Fri05/05/24 at 1436, Until Fri05/05/24 at 1436, Flush, CT Procedure Start: 05-04-2024 End: 10-18-2024 SODIUM CHLORIDE, EXTERNAL, ( Saline Wound Wash) 0.9 % Solution Use as directed for wound care 210 mL 2 05/04/2024 10/18/2024 Discontinued (Stop Taking at Discharge) Start: 04-29-2024 End: 04-29-2024 1-100 mL, Intravenous, ONCE NEEDED, 1 dose, Starting on Toma 04/29/24 at 0653, Until Toma 04/29/24 at 0653, Flush, CT Procedure Start: 04-29-2024 End: 05-09-2024 Intravenous, at 20 mL/hr, NEEDED, Starting on Fri04/30/24 at 1413, Until Fri05/09/24 at 1614, Carrier Fluid - See Admin. Inst, 250mL 0.9NS to be used as carrier fluid for intermittent small volume or piggyback medication administration as needed. Infusion rate of the carrier fluid should be set at 20 mL/hr unless the rate as the intermittent medication is less than 20 mL/hr. For intermittent medications with a rate less than 20 mL/hr set the carrier fluid at that rate of the intermittent or piggy back medication., Discharge Readmit Sodium-potassium phosphate (K-PHOS NEUTRAL) tablet 500-1,000 mg (1 source) Start: 04-30-2024 End: 05-09-2024 Sodium-potassium phosphate (K-PHOS NEUTRAL) tablet 500-1,000 mg tamsulosin hydrochloride 0.4 mg oral capsule (16 sources) alpha-Adrenergic Polina Start: 05-02-2024 End: 06-24-2024 take 1 capsule by mouth once daily Tamsulosin 0.4 mg capsule Discontinued 0.4 mg PO DAILY June 08, 2024 12:00am June 24, 2024 2:48pm thiamine hydrochloride 100 mg/ml injectable solution (1 source) Start: 05-04-2024 End: 05-09-2024 100 mg, Intravenous, DAILY, 7 doses, First dose on Fri05/04/24 at 0900, Last dose on Fri05/10/24 at 0900 vancomycin 125 mg oral capsule (20 sources) Glycopeptide Antibacterial Start: 11-05-2023 End: 11-19-2023 vancomycin 125 mg capsule ; 1 (one) capsule four times daily for 14 days Quantity: 56 {Capsule} Refills: 0 Ordered: 05-Nov-2023 CY BELLAMY Start: 05-Nov-2023 End: 19-Nov-2023 Status: Inactive Start: 10-23-2023 End: 11-02-2023 vancomycin 125 mg capsule ; 1 (one) capsule four times daily for 10 days Quantity: 40 {Capsule} Refills: 0 Ordered: 23-Oct-2023 IVANCRUZMARY JOCY ELLY Belcher Start: 23-Oct-2023 End: 02-Nov-2023 Status: Inactive Vancomycin HCl in NaCl (VANCOCIN) 1,250 mg in 0.9% NS 250 mL premix IVPB (1 source) Start: 10-12-2024 End: 10-12-2024 1,250 mg (rounded from 1,230 mg = 25 mg/kg 49.2 kg), Intravenous, Administer over 2 Hours, ONCE, 1 dose, On Fri10/12/24 at 0930, Extravasation Risk zinc sulfate 220 mg oral capsule (1 source) Start: 05-04-2024 End: 05-09-2024 220 mg, Oral, DAILY BEFORE BREAKFAST, 14 doses, First dose on Fri05/04/24 at 0600, Last dose on Fri05/17/24 at 0600, Take 1 hr before, 2 hr after meals. Problems Active Problems Problem Classification Problem Date Documented Da te Episodic/Chronic Abdominal pain (1 source) Unspecified abdominal pain; Translations: [Unspecified abdominal pain] Onset: 5 Episodic Acute and unspecified renal failure (18 sources) Acute renal failure syndrome; Translations: [Acute kidney failure, unspecified] Onset: 5 10-19-2024 Episodic Comment on above: s/p bilat percutaneo us nephrostomy secondary to bilateral hydroureteronephrosis. Administrative/social admission (20 sources) Patient encounter status; Translations: [Counseling, unspecified] 11-26-2023 Episodic Cancer of colon (20 sources) Malignant tumor of colon; Translations: [Malignant neoplasm of colon, unspecified] Onset: 4 03-18-2024 Chronic Comment on above: initially referred t o [facility]- family opted to go to [place] for tx Cancer of colon (2 sources) History of malignant neoplasm of colon; Translations: [Personal history of other malignant neoplasm of large intestine] 05-06-2024 Episodic Cancer of rectum and anus (20 sources) Malignant tumor of rectum; Translations: [Malignant neoplasm of rectum] Onset: 4 05-20-2024 Chronic Comment on above: initially referred t o [facility]- family opted to go to [place] for tx initially referred t o [facility]- family opted to go to [place] for txinvasive, mod differentiated adenocarcinoma Rectal cancer s/p AP R with colostomy on 03/30/2024. Complicated by pelvic abscess. CT on 05/20/2024 shows decreasing pre-sacral abscess.PET/CT on 07/06/2024 shows persistent disease in the rectal area of pelvis.Began radiation 07/12/2024, began continuous infusion 5-FU on 07/19/2024.Finished Chemotherapy C4 Infusional 5FU on 08/13/2024 and Radiation on 08/17/2024.MRI pelvis 10/06/24 demonstrates improvement of rectal mass. On FOLFOX.Comes for C8. Counts and chemistry reviewed, Ok for therapy. Chronic kidney disease (2 sources) Chronic kidney disease, unspecified; Translations: [Chronic kidney disease, unspecified] Onset: 5 Chronic Complications of surgical procedures or medical care (5 sources) Postprocedural retention of urine; Translations: [Other postprocedural complications and disorders of genitourinary system] Onset: 4 05-03-2024 Episodic Deficiency and other anemia (2 sources) Iron deficiency anemia; Translations: [Iron deficiency anemia, unspecified] 09-13-2024 Episodic Fluid and electrolyte disorders (13 sources) Dehydration; Translations: [Dehydration] Onset: 4 10-12-2024 Episodic Gastrointestinal hemorrhage (2 sources) Gastrointestinal hemorrhage, unspecified; Translations: [Gastrointestinal hemorrhage, unspecified] Onset: 4 Episodic Genitourinary symptoms and ill-defined conditions (11 sources) Mixed urinary incontinence; Translations: [Mixed incontinence] Onset: 4 10-22-2024 Chronic Genitourinary symptoms and ill-defined conditions (14 sources) Retention of urine; Translations: [Retention of urine, unspecified] Onset: 4 05-12-2024 Episodic Heart valve disorders (1 source) Nonrheumatic mitral (valve) insufficiency; Translations: [Nonrheumatic mitral (valve) insufficiency] Onset: 5 Chronic Intestinal infection (20 sources) Clostridium difficile diarrhea; Translations: [Enterocolitis due to Clostridium difficile, not specified as recurrent] 10-23-2023 Episodic Intestinal obstruction without hernia (7 sources) Partial intestinal obstruction, unspecified as to cause; Translations: [Small bowel obstruction] Onset: 4 02-24-2025 Episodic Maintenance chemotherapy; radiotherapy (15 sources) Patient encounter status; Translations: [Encounter for antineoplastic chemotherapy] Onset: 5 08-02-2024 Chronic Comment on above: Counts and chemistry reviewed, OK for therapy. Malignant neoplasm without specification of site (3 sources) Malignant (primary) neoplasm, unspecified; Translations: [Malignant (primary) neoplasm, unspecified] Onset: 4 Chronic Neoplasms of unspecified nature or uncertain behavior (1 source) Neoplasm of uncertain behavior of colon; Translations: [Neoplasm of uncertain behavior of colon] Onset: 4 Episodic Noninfectious gastroenteritis (20 sources) Chronic diarrhea of unknown origin ; Translations: [Noninfective gastroenteritis and colitis, unspecified] Onset: 4 10-17-2023 Episodic Other circulatory disease (20 sources) Elevated blood pressure; Translations: [Elevated blood-pressure reading, without diagnosis of hypertension] 10-17-2023 Episodic Other diseases of kidney and ureters (3 sources) Hydronephrosis; Translations: [Unspecified hydronephrosis] 10-14-2024 Episodic Other diseases of kidney and ureters (5 sources) Stricture of ureter; Translations: [Crossing vessel and stricture of ureter without hydronephrosis] Onset: 5 10-22-2024 Episodic Other diseases of kidney and ureters (2 sources) Chronic renal insufficiency; Translations: [Disorder of kidney and ureter, unspecified] 10-19-2024 Episodic Other gastrointestinal disorders (2 sources) Constipation; Translations: [Constipation, unspecified] 07-26-2024 Episodic Other infections; including parasitic (1 source) Disorder due to infection; Translations: [Unspecified infectious disease] 05-06-2024 Episodic Other liver diseases (2 sources) Elevated liver enzymes level; Translations: [Abnormal levels of other serum enzymes] 05-06-2024 Episodic Other lower respiratory disease (4 sources) Cough; Translations: [Cough] 01-03-2025 Episodic Other lower respiratory disease (2 sources) Lesion of lung; Translations: [Solitary pulmonary nodule] 06-30-2024 Episodic Other lower respiratory disease (1 source) Solitary pulmonary nodule; Translations: [Solitary pulmonary nodule] Onset: 5 Episodic Other nutritional; endocrine; and metabolic disorders (2 sources) Hypoalbuminemia; Translations: [Other disorders of plasma-protein metabolism, not elsewhere classified] 07-19-2024 Chronic Other nutritional; endocrine; and metabolic disorders (2 sources) Decrease in appetite; Translations: [Anorexia] 08-16-2024 Episodic Comment on above: Due to chemotherapy. Peritonitis and intestinal abscess (2 sources) Abdominal abscess; Translations: [Peritoneal abscess] 10-19-2024 Episodic Residual codes; unclassified (2 sources) Family history of colorectal cancer; Translations: [Family history of malignant neoplasm of digestive organs] 10-19-2024 Episodic Residual codes; unclassified (2 sources) History of partial resection of colon; Translations: [Acquired absence of other specified parts of digestive tract] 05-06-2024 Episodic Residual codes; unclassified (2 sources) History of antineoplastic chemotherapy; Translations: [Personal history of antineoplastic chemotherapy] 10-19-2024 Episodic Unclassified (20 sources) Diarrhea - The onset of the diarrhea has been acute and has been occurring in a persistent pattern for 6 months. The stools are watery and foul smelling. The symptoms have been associated with abdominal pain (lower abd pain at times.), while the symptoms have not been associated with constipation or fever. 10-21-2023 Unclassified (2 sources) Bowel Prep Onset: 5 10-29-2024 Unclassified (2 sources) C20 - Malignant neoplasm of rectum Unclassified (2 sources) R00.1 - Bradycardia, unspecified Unclassified (2 sources) Post-Op Problem; Translations: [Post-Op Problem] Onset: 4 Unclassified (1 source) Acute cough; Translations: [Acute cough] Onset: 5 Urinary tract infections (7 sources) Urinary tract infectious disease; Translations: [Urinary tract infection, site not specified] Onset: 5 02-14-2025 Episodic Past or Other Problems Problem Classification Problem Date Documented Da te Episodic/Chronic Cardiac dysrhythmias (12 sources) Bradycardia; Translations: [Bradycardia, unspecified] Onset: 4 10-15-2024 Episodic Deficiency and other anemia (1 source) Iron deficiency anemia, unspecified; Translations: [Iron deficiency anemia, unspecified] Onset: 4 Episodic E Codes: Adverse effects of medical drugs (1 source) Adverse effect of antineoplastic and immunosuppressive drugs, initial encounter; Translations: [Adverse effect of antineoplastic and immunosuppressive drugs, initial encounter] Onset: 5 Episodic Nausea and vomiting (5 sources) Chemotherapy-induced nausea and vomiting; Translations: [Nausea with vomiting, unspecified] Onset: 5 11-22-2024 Episodic Other aftercare (1 source) Encounter for adjustment and management of vascular access device; Translations: [Encounter for adjustment and management of vascular access device] Onset: 4 Episodic Other diseases of kidney and ureters (2 sources) Unspecified hydronephrosis; Translations: [Unspecified hydronephrosis] Onset: 5 Episodic Other diseases of kidney and ureters (2 sources) Crossing vessel and stricture of ureter without hydronephrosis; Translations: [Crossing vessel and stricture of ureter without hydronephrosis] Onset: 5 Episodic Other gastrointestinal disorders (1 source) Constipation, unspecified; Translations: [Constipation, unspecified] Onset: 4 Episodic Other infections; including parasitic (2 sources) Unspecified infectious disease; Translations: [Unspecified infectious disease] Onset: 4 Episodic Other nutritional; endocrine; and metabolic disorders (1 source) Anorexia; Translations: [Anorexia] Onset: 4 Episodic Other screening for suspected conditions (not mental disorders or infectious disease) (4 sources) Prerenal azotemia; Translations: [Other specified abnormal findings of blood chemistry] Onset: 4 08-09-2024 Episodic Skin and subcutaneous tissue infections (4 sources) Abscess; Translations: [Cutaneous abscess, unspecified] Onset: 4 05-03-2024 Episodic Unclassified (20 sources) Bloody stools - Note for Bloody stools: Pt has a history of C.Diff and has been on 2 rounds of antibiotics. He finished the medication 11/21/23. He has been having dark red blood in the stool. His stools are loose, some abd pain, good appetite. No fever. 11-26-2023 Results Test Name Value Interpretation Reference Range Facility Surgery Visit Reporton 03-10 Surgery Visit Report Normal [facility] Basic Metabolic Profile (BMP )on 03-02-2025 BUN Normal 4-19 [facility] Comment on above: Result Comment: Canc elled via OM: Order cancelled - Patient discharged Performed By: #### L 100.0100, L500.2500 ####[facility] [address] [place], [address] BUN/CRE Normal 10-20 [facility] Comment on above: Result Comment: Canc elled via OM: Order cancelled - Patient discharged Performed By: #### L 100.0100, L500.2500 ####[facility] [address] [place], [address] Calcium Normal 7.6-11.0 [facility] Comment on above: Result Comment: Canc elled via OM: Order cancelled - Patient discharged Performed By: #### L 100.0100, L500.2500 ####[facility] [address] [place], [address] CL Normal 98-108 [facility] Comment on above: Result Comment: Canc elled via OM: Order cancelled - Patient discharged Performed By: #### L 100.0100, L500.2500 ####[facility] [address] [place], [address] CO2 Normal 21.0-32.0 [facility] Comment on above: Result Comment: Canc elled via OM: Order cancelled - Patient discharged Performed By: #### L 100.0100, L500.2500 ####[facility] [address] [place], [address] CREAT,SERUM Normal 0.70-1.20 [facility] Comment on above: Result Comment: Canc elled via OM: Order cancelled - Patient discharged Performed By: #### L 100.0100, L500.2500 ####[facility] [address] [place], [address] eGFR Normal >60 [facility] Comment on above: Result Comment: Canc elled via OM: Order cancelled - Patient discharged Performed By: #### L 100.0100, L500.2500 ####[facility] [address] [place], [address] GAP Normal 5-15 [facility] Comment on above: Result Comment: Canc elled via OM: Order cancelled - Patient discharged Performed By: #### L 100.0100, L500.2500 ####[facility] [address] [place], [address] GLU Normal 70-99 [facility] Comment on above: Result Comment: Canc elled via OM: Order cancelled - Patient discharged Performed By: #### L 100.0100, L500.2500 ####[facility] [address] [place], [address] Potassium Normal 3.3-5.1 [facility] Comment on above: Result Comment: Canc elled via OM: Order cancelled - Patient discharged Performed By: #### L 100.0100, L500.2500 ####[facility] [address] [place], [address] Basic Metabolic Profile (BMP) Normal 133-145 [facility] Comment on above: Result Comment: Canc elled via OM: Order cancelled - Patient discharged Performed By: #### L 100.0100, L500.2500 ####[facility] [address] [place], [address] CBC W/Diff, Automatedon 05-1 Absolute Neut Normal 2.0-7.7 [facility] Comment on above: Result Comment: Canc elled via OM: Order cancelled - Patient discharged Performed By: #### L 100.0100, L500.2500 ####[facility] [address] [place], [address] HCT Normal 40-54 [facility] Comment on above: Result Comment: Canc elled via OM: Order cancelled - Patient discharged Performed By: #### L 100.0100, L500.2500 ####[facility] [address] [place], [address] HGB Normal 13.0-16.5 [facility] Comment on above: Result Comment: Canc elled via OM: Order cancelled - Patient discharged Performed By: #### L 100.0100, L500.2500 ####[facility] [address] [place], [address] MCH Normal 27.0-32.0 [facility] Comment on above: Result Comment: Canc elled via OM: Order cancelled - Patient discharged Performed By: #### L 100.0100, L500.2500 ####[facility] [address] [place], [address] MCHC Normal 32-36 [facility] Comment on above: Result Comment: Canc elled via OM: Order cancelled - Patient discharged Performed By: #### L 100.0100, L500.2500 ####[facility] [address] [place], [address] MCV Normal 80-94 [facility] Comment on above: Result Comment: Canc elled via OM: Order cancelled - Patient discharged Performed By: #### L 100.0100, L500.2500 ####[facility] [address] [place], [address] NEUT% Normal 47-70 [facility] Comment on above: Result Comment: Canc elled via OM: Order cancelled - Patient discharged Performed By: #### L 100.0100, L500.2500 ####[facility] [address] [place], [address] PLT Normal 150-450 [facility] Comment on above: Result Comment: Canc elled via OM: Order cancelled - Patient discharged Performed By: #### L 100.0100, L500.2500 ####[facility] [address] [place], [address] RBC Normal 4.6-6.2 [facility] Comment on above: Result Comment: Canc elled via OM: Order cancelled - Patient discharged Performed By: #### L 100.0100, L500.2500 ####[facility] [address] [place], [address] RDW CV Normal 11.6-14.6 [facility] Comment on above: Result Comment: Canc elled via OM: Order cancelled - Patient discharged Performed By: #### L 100.0100, L500.2500 ####[facility] [address] [place], [address] RDW SD Normal 35.1-43.9 [facility] Comment on above: Result Comment: Canc elled via OM: Order cancelled - Patient discharged Performed By: #### L 100.0100, L500.2500 ####[facility] [address] [place], [address] WBC Normal 4.4-11.0 [facility] Comment on above: Result Comment: Canc elled via OM: Order cancelled - Patient discharged Performed By: #### L 100.0100, L500.2500 ####[facility] [address] [place], [address] Absolute lymphocyte countOrd ered By: Handy Royal on 03-01-2025 Lymphocytes Auto (Unsp spec) [#/Vol] 0.55 10*3/uL Low 0.83-4.51 [facility] Absolute neutrophil countOrd ered By: Handy Royal on 03-01-2025 Neutrophils (Bld) [#/Vol] 1.2 10*3/uL Low 2.0-7.7 [facility] Anion gap in Serum or Plasma Ordered By: Handy Royal on 03-01-2025 Anion gap [Moles/Vol] 7 mmol/L - [facility] Automated lymphocyte count a s percentage of total leukocytesOrdered By: Handy Royal on 03-01-2025 Lymphocytes/100 WBC Auto (Unsp spec) 22.3 % [facility] BUN/creatinine ratioOrdered By: Handy Royal on 03-01-2025 Urea nitrogen/Creatinine [Mass ratio] 12.6 mg/mg 08-08 [facility] Basic Metabolic Profile (BMP )on 03-01-2025 BUN/CRE 12.6 RATIO Normal 08-08 [facility] Comment on above: Performed By: #### L 100.0100, L500.2500 ####[facility] [address] [place], [address] Calcium [Mass/Vol] 8.5 mg/dL Normal 7.6-11.0 [facility] Comment on above: Performed By: #### L 100.0100, L500.2500 ####[facility] [address] [place], [address] Chloride [Moles/Vol] 101 mmol/L Normal 98-108 [facility] Comment on above: Performed By: #### L 100.0100, L500.2500 ####[facility] [address] [place], [address] CO2 [Moles/Vol] 26.7 mmol/L Normal 21.0-32.0 [facility] Comment on above: Performed By: #### L 100.0100, L500.2500 ####[facility] [address] [place], [address] Creatinine [Mass/Vol] 1.03 mg/dL Normal 0.70-1.20 [facility] Comment on above: Performed By: #### L 100.0100, L500.2500 ####[facility] [address] [place], [address] ECRCL 53.85 ml/min Normal 50-250 [facility] Comment on above: Performed By: #### L 100.0100, L500.2500 ####[facility] [address] [place], [address] GAP 7 Normal 5-15 [facility] Comment on above: Performed By: #### L 100.0100, L500.2500 ####[facility] [address] [place], [address] GFR/1.73 sq M.predicted among non-blacks MDRD (S/P/Bld) [Vol rate/Area] 84 mL/min/{1.73_m2} Normal >60 [facility] Comment on above: Result Comment: mL/m in/1.73m2 CKD-EPI Creatinine Equation (2020) Performed By: #### L 100.0100, L500.2500 ####[facility] [address] [place], [address] Glucose [Mass/Vol] 97 mg/dL Normal 70-99 [facility] Comment on above: Performed By: #### L 100.0100, L500.2500 ####[facility] [address] [place], [address] Potassium [Moles/Vol] 3.5 mmol/L Normal 3.3-5.1 [facility] Comment on above: Performed By: #### L 100.0100, L500.2500 ####[facility] [address] [place], [address] Sodium [Moles/Vol] 135 mmol/L Normal 133-145 [facility] Comment on above: Performed By: #### L 100.0100, L500.2500 ####[facility] [address] [place], [address] Urea nitrogen [Mass/Vol] 13 mg/dL Normal 4-19 [facility] Comment on above: Performed By: #### L 100.0100, L500.2500 ####[facility] [address] [place], [address] Basophil percentageOrdered B y: Handy Royal on 03-01-2025 Basophils/100 WBC (Bld) 0.4 % 0-1 [facility] Blood manual differential co mment interpretation (narrative result)Ordered By: Handy Royal on 03-01-2025 Manual differential comment Leonard (Bld) [Interp] SCANNED [facility] CBC W/Diff, Automatedon 02-17 RED CELL MORPH NORM C+C Normal NORM C C [facility] Comment on above: Performed By: #### L 100.0100, L500.2500 ####[facility] [address] [place], [address] PLT EST MOD DEC Normal ADEQ [facility] Comment on above: Performed By: #### L 100.0100, L500.2500 ####[facility] [address] [place], [address] SMEAR COMMENT SCANNED Normal [facility] Comment on above: Performed By: #### L 100.0100, L500.2500 ####[facility] [address] [place], [address] Carbon dioxide, total [Moles /volume] in Central venous bloodOrdered By: Handy Royal on 03-01-2025 CO2 [Moles/Vol] 26.7 mmol/L 21.0-32.0 [facility] Chloride assayOrdered By: Chanell Royal on 03-01-2025 Chloride [Moles/Vol] 101 mmol/L 98-108 [facility] Discharge Instructionon 02-17 Discharge Instruction Normal [facility] Eosinophil percentageOrdered By: Handy Royal on 03-01-2025 Eosinophils/100 WBC (Bld) 4.0 % 0-5 [facility] Erythrocyte distribution wid th ratioOrdered By: Handy Royal on 03-01-2025 Erythrocyte distribution width (RBC) [Ratio] 15.0 % High 11.6-14.6 [facility] Erythrocyte distribution wid th standard deviationOrdered By: Handy Royal on 03-01-2025 Erythrocyte distribution width (RBC) [Ratio] 54.9 fl High 35.1-43.9 [facility] Erythrocyte morphology asses smentOrdered By: Handy Royal on 03-01-2025 RBC morphology finding Nom (Bld) NORM C+C NORMAL NORM C&C [facility] Glomerular filtration rate ( GFR) estimation/1.73 sq m using serum, plasma, or whole bOrdered By: Handy Royal on 03-01-2025 GFR/1.73 sq M.predicted among non-blacks MDRD (S/P/Bld) [Vol rate/Area] 84 mL/min/{1.73_m2} >60 [facility] Comment on above: mL/min/1.73m2 CKD-EP I Creatinine Equation (2020) Hematocrit Auto (Bld) [Volum e fraction]Ordered By: Handy Royal on 03-01-2025 Hematocrit (Bld) [Volume fraction] 27.7 % Low 40-54 [facility] Hemoglobin measurementOrdere d By: Handy Royal on 03-01-2025 Hemoglobin (Bld) [Mass/Vol] 9.5 g/dL Low 13.0-16.5 [facility] Immature granulocytes/100 WB C Auto (Bld)Ordered By: Handy Royal on 03-01-2025 Immature granulocytes/100 WBC (Bld) 1.200 % High 0.0-0.9 [facility] Comment on above: IG% - Immature Granu locytes (promyelocytes, myelocytes and metamyelocytes) > 1% indicates that a LEFT SHIFT is Present. MCV (mean corpuscular volume ) determinationOrdered By: Handy Royal on 03-01-2025 MCV (RBC) [Entitic vol] 99.6 fL High 80-94 [facility] Mean corpuscular hemoglobin (MCH) determinationOrdered By: Handy Royal 03-01-2025 MCH (RBC) [Entitic mass] 34.2 pg High 27.0-32.0 [facility] Mean corpuscular hemoglobin concentration (MCHC) determinationOrdered By: Handy Royal on 03-01-2025 MCHC (RBC) [Mass/Vol] 34.3 g/dL 32-36 [facility] Mean platelet volume determi nationOrdered By: Handy Royal on 03-01-2025 Platelet mean volume (Bld) [Entitic vol] 9.7 fL 6.2-12.0 [facility] Monocyte percentageOrdered B y: Handy Royal on 03-01-2025 Monocytes/100 WBC (Bld) 25.5 % High 0-10 [facility] Neutrophil percentageOrdered By: Handy Royal on 03-01-2025 Neutrophils/100 WBC (Bld) 46.6 % Low 47-70 [facility] Nucleated red blood cell per centageOrdered By: Handy Royal on 03-01-2025 Nucleated RBC/100 WBC (Bld) [Ratio] 0 % 0-5 [facility] Platelet countOrdered By: Chanell Royal on 03-01-2025 Platelets (Bld) [#/Vol] 86 10*3/uL Low 150-450 [facility] Platelet estimateOrdered By: Handy Royal on 03-01-2025 Platelets LM Ql (Bld) MOD DEC ADEQ [facility] Potassium measurement (mass/ volume)Ordered By: Handy Royal on 03-01-2025 Potassium (Unsp spec) [Mass/Vol] 3.5 mmol/L 3.3-5.1 [facility] RBC Auto (Bld) [#/Vol]Ordere d By: Handy Royal on 03-01-2025 RBC (Bld) [#/Vol] 2.78 10*6/uL Low 4.6-6.2 [facility] Serum creatinine measurement (mass/volume)Ordered By: Handy Royal on 03-01-2025 Creatinine [Mass/Vol] 1.03 mg/dL 0.70-1.20 [facility] Serum glucose measurement (m ass/volume)Ordered By: Handy Royal on 03-01-2025 Glucose [Mass/Vol] 97 mg/dL 70-99 [facility] Serum or plasma calcium jesus urement (mass/volume)Ordered By: Handy Royal on 03-01-2025 Calcium [Mass/Vol] 8.5 mg/dL 7.6-11.0 [facility] Serum or plasma urea nitroge n measurement (mass/volume)Ordered By: Handy Royal on 03-01-2025 Urea nitrogen [Mass/Vol] 13 mg/dL 4-19 [facility] Sodium levelOrdered By: Nilesh Royal on 03-01-2025 Sodium [Moles/Vol] 135 mmol/L 133-145 [facility] White blood cell (WBC) count Ordered By: Handy Royal on 03-01-2025 WBC (Bld) [#/Vol] 2.5 10*3/uL Low 4.4-11.0 [facility] Basic Metabolic Profile (BMP )on 02-28-2025 BUN/CRE 15.4 RATIO Normal 10-20 [facility] Comment on above: Performed By: #### L 500.2500, L100.0100 ####[facility] [address] [place], [address] Calcium [Mass/Vol] 8.7 mg/dL Normal 7.6-11.0 [facility] Comment on above: Performed By: #### L 500.2500, L100.0100 ####[facility] [address] [place], [address] Chloride [Moles/Vol] 105 mmol/L Normal 98-108 [facility] Comment on above: Performed By: #### L 500.2500, L100.0100 ####[facility] [address] [place], [address] CO2 [Moles/Vol] 26.0 mmol/L Normal 21.0-32.0 [facility] Comment on above: Performed By: #### L 500.2500, L100.0100 ####[facility] [address] [place], [address] Creatinine [Mass/Vol] 1.10 mg/dL Normal 0.70-1.20 [facility] Comment on above: Performed By: #### L 500.2500, L100.0100 ####[facility] [address] [place], [address] ECRCL 50.42 ml/min Normal 50-250 [facility] Comment on above: Performed By: #### L 500.2500, L100.0100 ####[facility] [address] [place], [address] GAP 8 Normal 5-15 [facility] Comment on above: Performed By: #### L 500.2500, L100.0100 ####[facility] [address] [place], [address] GFR/1.73 sq M.predicted among non-blacks MDRD (S/P/Bld) [Vol rate/Area] 77 mL/min/{1.73_m2} Normal >60 [facility] Comment on above: Result Comment: mL/m in/1.73m2 CKD-EPI Creatinine Equation (2020) Performed By: #### L 500.2500, L100.0100 ####[facility] [address] [place], [address] Glucose [Mass/Vol] 96 mg/dL Normal 70-99 [facility] Comment on above: Performed By: #### L 500.2500, L100.0100 ####[facility] [address] [place], [address] Potassium [Moles/Vol] 3.8 mmol/L Normal 3.3-5.1 [facility] Comment on above: Performed By: #### L 500.2500, L100.0100 ####[facility] [address] [place], [address] Sodium [Moles/Vol] 138 mmol/L Normal 133-145 [facility] Comment on above: Performed By: #### L 500.2500, L100.0100 ####[facility] [address] [place], [address] Urea nitrogen [Mass/Vol] 17 mg/dL Normal 4-19 [facility] Comment on above: Performed By: #### L 500.2500, L100.0100 ####[facility] [address] [place], [address] Bedside Glucoseon 02-28-2025 FINGERSTICK GLU 94 mg/dL Normal 74-106 [facility] Comment on above: Result Comment: ARNALDO GEMENT OF PATIENT CARE PER NURSING PROTOCOL Performed By: #### L 501.080 ####[facility] [address] [place], [address] FINGERSTICK GLU 119 mg/dL High 74-106 [facility] Comment on above: Result Comment: ARNALDO GEMENT OF PATIENT CARE PER NURSING PROTOCOL Performed By: #### L 501.080 ####[facility] [address] [place], [address] CBC W/Diff, Automatedon 02-17 RED CELL MORPH NORM C+C Normal NORM C C [facility] Comment on above: Performed By: #### L 500.2500, L100.0100 ####[facility] [address] [place], [address] PLT EST MOD DEC Normal ADEQ [facility] Comment on above: Performed By: #### L 500.2500, L100.0100 ####[facility] [address] [place], [address] SMEAR COMMENT SCANNED Normal [facility] Comment on above: Performed By: #### L 500.2500, L100.0100 ####[facility] [address] [place], [address] [facility] deOrdered By: Handy Royal on 02-28-2025 Glucose [Mass/Vol] 94 mg/dL 74-106 [facility] Comment on above: MANAGEMENT OF PATIEN T CARE PER NURSING PROTOCOL Basic Metabolic Profile (BMP )on 02-27-2025 BUN/CRE 17.6 RATIO Normal 10-20 [facility] Comment on above: Performed By: #### L 500.2500, L100.0100 ####[facility] [address] [place], [address] Calcium [Mass/Vol] 8.6 mg/dL Normal 7.6-11.0 [facility] Comment on above: Performed By: #### L 500.2500, L100.0100 ####[facility] [address] [place], [address] Chloride [Moles/Vol] 108 mmol/L Normal 98-108 [facility] Comment on above: Performed By: #### L 500.2500, L100.0100 ####[facility] [address] [place], [address] CO2 [Moles/Vol] 28.0 mmol/L Normal 21.0-32.0 [facility] Comment on above: Performed By: #### L 500.2500, L100.0100 ####[facility] [address] [place], [address] Creatinine [Mass/Vol] 1.43 mg/dL High 0.70-1.20 [facility] Comment on above: Performed By: #### L 500.2500, L100.0100 ####[facility] [address] [place], [address] ECRCL 38.78 ml/min Low 50-250 [facility] Comment on above: Performed By: #### L 500.2500, L100.0100 ####[facility] [address] [place], [address] GAP 7 Normal 5-15 [facility] Comment on above: Performed By: #### L 500.2500, L100.0100 ####[facility] [address] [place], [address] GFR/1.73 sq M.predicted among non-blacks MDRD (S/P/Bld) [Vol rate/Area] 56 mL/min/{1.73_m2} Low >60 [facility] Comment on above: Result Comment: mL/m in/1.73m2 CKD-EPI Creatinine Equation (2020) Performed By: #### L 500.2500, L100.0100 ####[facility] [address] [place], [address] Glucose [Mass/Vol] 106 mg/dL High 70-99 [facility] Comment on above: Performed By: #### L 500.2500, L100.0100 ####[facility] [address] [place], [address] Potassium [Moles/Vol] 4.3 mmol/L Normal 3.3-5.1 [facility] Comment on above: Performed By: #### L 500.2500, L100.0100 ####[facility] [address] [place], [address] Sodium [Moles/Vol] 143 mmol/L Normal 133-145 [facility] Comment on above: Performed By: #### L 500.2500, L100.0100 ####[facility] [address] [place], [address] Urea nitrogen [Mass/Vol] 25 mg/dL High 4-19 [facility] Comment on above: Performed By: #### L 500.2500, L100.0100 ####[facility] [address] [place], [address] CBC W/Diff, Automatedon 05-1 PLT EST SLT DEC Normal ADEQ [facility] Comment on above: Performed By: #### L 500.2500, L100.0100 ####[facility] [address] [place], [address] Basic Metabolic Profile (BMP )on 02-26-2025 BUN/CRE 14.9 RATIO Normal 10-20 [facility] Comment on above: Performed By: #### L 500.2500, L100.0100 ####[facility] [address] [place], [address] Calcium [Mass/Vol] 8.7 mg/dL Normal 7.6-11.0 [facility] Comment on above: Performed By: #### L 500.2500, L100.0100 ####[facility] [address] [place], [address] Chloride [Moles/Vol] 104 mmol/L Normal 98-108 [facility] Comment on above: Performed By: #### L 500.2500, L100.0100 ####[facility] [address] [place], [address] CO2 [Moles/Vol] 28.1 mmol/L Normal 21.0-32.0 [facility] Comment on above: Performed By: #### L 500.2500, L100.0100 ####[facility] [address] [place], [address] Creatinine [Mass/Vol] 1.67 mg/dL High 0.70-1.20 [facility] Comment on above: Performed By: #### L 500.2500, L100.0100 ####[facility] [address] [place], [address] ECRCL 33.21 ml/min Low 50-250 [facility] Comment on above: Performed By: #### L 500.2500, L100.0100 ####[facility] [address] [place], [address] GAP 11 Normal 5-15 [facility] Comment on above: Performed By: #### L 500.2500, L100.0100 ####[facility] [address] [place], [address] GFR/1.73 sq M.predicted among non-blacks MDRD (S/P/Bld) [Vol rate/Area] 47 mL/min/{1.73_m2} Low >60 [facility] Comment on above: Result Comment: mL/m in/1.73m2 CKD-EPI Creatinine Equation (2020) Performed By: #### L 500.2500, L100.0100 ####[facility] [address] [place], [address] Glucose [Mass/Vol] 158 mg/dL High 70-99 [facility] Comment on above: Performed By: #### L 500.2500, L100.0100 ####[facility] [address] [place], [address] Potassium [Moles/Vol] 3.6 mmol/L Normal 3.3-5.1 [facility] Comment on above: Performed By: #### L 500.2500, L100.0100 ####[facility] [address] [place], [address] Sodium [Moles/Vol] 143 mmol/L Normal 133-145 [facility] Comment on above: Performed By: #### L 500.2500, L100.0100 ####[facility] [address] [place], [address] Urea nitrogen [Mass/Vol] 25 mg/dL High 4-19 [facility] Comment on above: Performed By: #### L 500.2500, L100.0100 ####[facility] [address] [place], [address] CBC W/Diff, Automatedon 05-1 0-2024 Absolute Lymph 0.20 X10 3/uL Low 0.83-4.51 [facility] Comment on above: Performed By: #### L 500.2500, L100.0100 ####[facility] [address] [place], [address] Absolute Neut 5.6 X10 3/uL Normal 2.0-7.7 [facility] Comment on above: Performed By: #### L 500.2500, L100.0100 ####[facility] [address] [place], [address] Basophils/100 WBC (Bld) 0.2 % Normal 0-1 [facility] Comment on above: Performed By: #### L 500.2500, L100.0100 ####[facility] [address] [place], [address] Eosinophils/100 WBC (Bld) 0.0 % Normal 0-5 [facility] Comment on above: Performed By: #### L 500.2500, L100.0100 ####[facility] [address] [place], [address] Erythrocyte distribution width (RBC) [Ratio] 16.0 % High 11.6-14.6 [facility] Comment on above: Performed By: #### L 500.2500, L100.0100 ####[facility] [address] [place], [address] Hematocrit (Bld) [Volume fraction] 33.5 % Low 40-54 [facility] Comment on above: Performed By: #### L 500.2500, L100.0100 ####[facility] [address] [place], [address] Hemoglobin (Bld) [Mass/Vol] 11.5 g/dL Low 13.0-16.5 [facility] Comment on above: Performed By: #### L 500.2500, L100.0100 ####[facility] [address] [place], [address] IG% 0.200 Normal 0.0-0.9 [facility] Comment on above: Result Comment: IG% - Immature Granulocytes (promyelocytes, myelocytes andmetamyelocytes) > 1% indicates that a LEFT SHIFT is Present. Performed By: #### L 500.2500, L100.0100 ####[facility] [address] [place], [address] Lymphocytes/100 WBC (Bld) 3.2 % Low 19-41 [facility] Comment on above: Performed By: #### L 500.2500, L100.0100 ####[facility] [address] [place], [address] MCH (RBC) [Entitic mass] 33.7 pg High 27.0-32.0 [facility] Comment on above: Performed By: #### L 500.2500, L100.0100 ####[facility] [address] [place], [address] MCHC (RBC) [Mass/Vol] 34.3 g/dL Normal 32-36 [facility] Comment on above: Performed By: #### L 500.2500, L100.0100 ####[facility] [address] [place], [address] MCV (RBC) [Entitic vol] 98.2 fL High 80-94 [facility] Comment on above: Performed By: #### L 500.2500, L100.0100 ####[facility] [address] [place], [address] Monocytes/100 WBC (Bld) 8.7 % Normal 0-10 [facility] Comment on above: Performed By: #### L 500.2500, L100.0100 ####[facility] [address] [place], [address] Neutrophils/100 WBC (Bld) 87.7 % High 47-70 [facility] Comment on above: Performed By: #### L 500.2500, L100.0100 ####[facility] [address] [place], [address] Nucleated RBC (Bld) [#/Vol] 0 10*3/uL Normal 0-5 [facility] Comment on above: Performed By: #### L 500.2500, L100.0100 ####[facility] [address] [place], [address] Platelet mean volume (Bld) [Entitic vol] 9.7 fL Normal 6.2-12.0 [facility] Comment on above: Performed By: #### L 500.2500, L100.0100 ####[facility] [address] [place], [address] Platelets (Bld) [#/Vol] 102 10*3/uL Low 150-450 [facility] Comment on above: Performed By: #### L 500.2500, L100.0100 ####[facility] [address] [place], [address] RBC (Bld) [#/Vol] 3.41 10*6/uL Low 4.6-6.2 [facility] Comment on above: Performed By: #### L 500.2500, L100.0100 ####[facility] [address] [place], [address] RDW SD 55.8 fl High 35.1-43.9 [facility] Comment on above: Performed By: #### L 500.2500, L100.0100 ####[facility] [address] [place], [address] WBC (Bld) [#/Vol] 6.3 10*3/uL Normal 4.4-11.0 [facility] Comment on above: Performed By: #### L 500.2500, L100.0100 ####[facility] [address] [place], [address] Abdomen Single View (Portabl e)on 02-25-2025 Abdomen Single View (Portable) Normal [facility] Basic Metabolic Profile (BMP )on 02-25-2025 BUN/CRE 13.7 RATIO Normal 10-20 [facility] Comment on above: Performed By: #### L 100.0100, L500.2500 ####[facility] [address] [place], [address] Calcium [Mass/Vol] 9.6 mg/dL Normal 7.6-11.0 [facility] Comment on above: Performed By: #### L 100.0100, L500.2500 ####[facility] [address] [place], [address] Chloride [Moles/Vol] 99 mmol/L Normal 98-108 [facility] Comment on above: Performed By: #### L 100.0100, L500.2500 ####[facility] [address] [place], [address] CO2 [Moles/Vol] 29.5 mmol/L Normal 21.0-32.0 [facility] Comment on above: Performed By: #### L 100.0100, L500.2500 ####[facility] [address] [place], [address] Creatinine [Mass/Vol] 1.51 mg/dL High 0.70-1.20 [facility] Comment on above: Performed By: #### L 100.0100, L500.2500 ####[facility] [address] [place], [address] ECRCL 36.73 ml/min Low 50-250 [facility] Comment on above: Performed By: #### L 100.0100, L500.2500 ####[facility] [address] [place], [address] GAP 14 Normal 5-15 [facility] Comment on above: Performed By: #### L 100.0100, L500.2500 ####[facility] [address] [place], [address] GFR/1.73 sq M.predicted among non-blacks MDRD (S/P/Bld) [Vol rate/Area] 53 mL/min/{1.73_m2} Low >60 [facility] Comment on above: Result Comment: mL/m in/1.73m2 CKD-EPI Creatinine Equation (2020) Performed By: #### L 100.0100, L500.2500 ####[facility] [address] [place], [address] Glucose [Mass/Vol] 121 mg/dL High 70-99 [facility] Comment on above: Performed By: #### L 100.0100, L500.2500 ####[facility] [address] [place], [address] Potassium [Moles/Vol] 3.2 mmol/L Low 3.3-5.1 [facility] Comment on above: Performed By: #### L 100.0100, L500.2500 ####[facility] [address] [place], [address] Sodium [Moles/Vol] 142 mmol/L Normal 133-145 [facility] Comment on above: Performed By: #### L 100.0100, L500.2500 ####[facility] [address] [place], [address] Urea nitrogen [Mass/Vol] 21 mg/dL High 4-19 [facility] Comment on above: Performed By: #### L 100.0100, L500.2500 ####[facility] [address] [place], [address] CBC W/Diff, Automatedon 05-0 9-2024 Absolute Lymph 0.51 X10 3/uL Low 0.83-4.51 [facility] Comment on above: Performed By: #### L 100.0100, L500.2500 ####[facility] [address] [place], [address] Absolute Neut 6.7 X10 3/uL Normal 2.0-7.7 [facility] Comment on above: Performed By: #### L 100.0100, L500.2500 ####[facility] [address] [place], [address] Basophils/100 WBC (Bld) 0.4 % Normal 0-1 [facility] Comment on above: Performed By: #### L 100.0100, L500.2500 ####[facility] [address] [place], [address] Eosinophils/100 WBC (Bld) 0.1 % Normal 0-5 [facility] Comment on above: Performed By: #### L 100.0100, L500.2500 ####[facility] [address] [place], [address] Erythrocyte distribution width (RBC) [Ratio] 15.2 % High 11.6-14.6 [facility] Comment on above: Performed By: #### L 100.0100, L500.2500 ####[facility] [address] [place], [address] Hematocrit (Bld) [Volume fraction] 35.7 % Low 40-54 [facility] Comment on above: Performed By: #### L 100.0100, L500.2500 ####[facility] [address] [place], [address] Hemoglobin (Bld) [Mass/Vol] 12.5 g/dL Low 13.0-16.5 [facility] Comment on above: Performed By: #### L 100.0100, L500.2500 ####[facility] [address] [place], [address] IG% 0.500 Normal 0.0-0.9 [facility] Comment on above: Result Comment: IG% - Immature Granulocytes (promyelocytes, myelocytes andmetamyelocytes) > 1% indicates that a LEFT SHIFT is Present. Performed By: #### L 100.0100, L500.2500 ####[facility] [address] [place], [address] Lymphocytes/100 WBC (Bld) 6.2 % Low 19-41 [facility] Comment on above: Performed By: #### L 100.0100, L500.2500 ####[facility] [address] [place], [address] MCH (RBC) [Entitic mass] 33.8 pg High 27.0-32.0 [facility] Comment on above: Performed By: #### L 100.0100, L500.2500 ####[facility] [address] [place], [address] MCHC (RBC) [Mass/Vol] 35.0 g/dL Normal 32-36 [facility] Comment on above: Performed By: #### L 100.0100, L500.2500 ####[facility] [address] [place], [address] MCV (RBC) [Entitic vol] 96.5 fL High 80-94 [facility] Comment on above: Performed By: #### L 100.0100, L500.2500 ####[facility] [address] [place], [address] Monocytes/100 WBC (Bld) 11.9 % High 0-10 [facility] Comment on above: Performed By: #### L 100.0100, L500.2500 ####[facility] [address] [place], [address] Neutrophils/100 WBC (Bld) 80.9 % High 47-70 [facility] Comment on above: Performed By: #### L 100.0100, L500.2500 ####[facility] [address] [place], [address] Nucleated RBC (Bld) [#/Vol] 0 10*3/uL Normal 0-5 [facility] Comment on above: Performed By: #### L 100.0100, L500.2500 ####[facility] [address] [place], [address] Platelet mean volume (Bld) [Entitic vol] 9.4 fL Normal 6.2-12.0 [facility] Comment on above: Performed By: #### L 100.0100, L500.2500 ####[facility] [address] [place], [address] Platelets (Bld) [#/Vol] 113 10*3/uL Low 150-450 [facility] Comment on above: Performed By: #### L 100.0100, L500.2500 ####[facility] [address] [place], [address] RBC (Bld) [#/Vol] 3.70 10*6/uL Low 4.6-6.2 [facility] Comment on above: Performed By: #### L 100.0100, L500.2500 ####[facility] [address] [place], [address] RDW SD 52.5 fl High 35.1-43.9 [facility] Comment on above: Performed By: #### L 100.0100, L500.2500 ####[facility] [address] [place], [address] WBC (Bld) [#/Vol] 8.3 10*3/uL Normal 4.4-11.0 [facility] Comment on above: Performed By: #### L 100.0100, L500.2500 ####[facility] [address] [place], [address] MR/POSTOP.ANEon 02-25-2025 MR/POSTOP.ANE Normal [facility] MR/RMNBOHHJ4ci 02-25-2025 MR/POSTOPAN2 Normal [facility] Operative Reporton Operative Report Normal [facility] Small Bowel Series Onlyon Small Bowel Series Only Normal [facility] Abdomen Single View (Portabl e)on 02-24-2025 Abdomen Single View (Portable) Normal [facility] Abdomen/Pel W ORAL Cont Only on 02-24-2025 Abdomen/Pel W ORAL Cont Only Normal [facility] Absolute lymphocyte countOrd ered By: Gwyn Esquivel on 02-24-2025 Lymphocytes Auto (Unsp spec) [#/Vol] 0.35 10*3/uL Low 0.83-4.51 [facility] Absolute neutrophil countOrd ered By: Gwyn Esquivel on 02-24-2025 Neutrophils (Bld) [#/Vol] 6.6 10*3/uL 2.0-7.7 [facility] Anion gap in Serum or Plasma Ordered By: Gwyn Esquivel on 02-24-2025 Anion gap [Moles/Vol] 12 mmol/L 5-15 [facility] Automated lymphocyte count a s percentage of total leukocytesOrdered By: Gwyn Esquivel on 02-24-2025 Lymphocytes/100 WBC Auto (Unsp spec) 4.5 % Low 19-41 [facility] BUN/creatinine ratioOrdered By: Gwyn Esquivel on 02-24-2025 Urea nitrogen/Creatinine [Mass ratio] 12.2 mg/mg 10-20 [facility] Basophil percentageOrdered B y: Gwyn Esquivel on 02-24-2025 Basophils/100 WBC (Bld) 0.4 % 0-1 [facility] Bilirubin Test strip Ql (U)O rdered By: Handy Royal on 02-24-2025 Bilirubin Ql (U) Negative Negative [facility] Bilirubin, totalOrdered By: Gwyn Esquivel on 02-24-2025 Bilirubin [Mass/Vol] 0.72 mg/dL 0.00-1.30 [facility] CBC W/Diff, Automatedon Absolute Lymph 0.35 X10 3/uL Low 0.83-4.51 [facility] Comment on above: Performed By: #### L 500.4050, L501.2450, L100.0100 ####[facility] [address] [place], [address] Absolute Neut 6.6 X10 3/uL Normal 2.0-7.7 [facility] Comment on above: Performed By: #### L 500.4050, L501.2450, L100.0100 ####[facility] [address] [place], [address] Basophils/100 WBC (Bld) 0.4 % Normal 0-1 [facility] Comment on above: Performed By: #### L 500.4050, L501.2450, L100.0100 ####[facility] [address] [place], [address] Eosinophils/100 WBC (Bld) 0.1 % Normal 0-5 [facility] Comment on above: Performed By: #### L 500.4050, L501.2450, L100.0100 ####[facility] [address] [place], [address] Erythrocyte distribution width (RBC) [Ratio] 14.9 % High 11.6-14.6 [facility] Comment on above: Performed By: #### L 500.4050, L501.2450, L100.0100 ####[facility] [address] [place], [address] Hematocrit (Bld) [Volume fraction] 35.1 % Low 40-54 [facility] Comment on above: Performed By: #### L 500.4050, L501.2450, L100.0100 ####[facility] [address] [place], [address] Hemoglobin (Bld) [Mass/Vol] 12.6 g/dL Low 13.0-16.5 [facility] Comment on above: Performed By: #### L 500.4050, L501.2450, L100.0100 ####[facility] [address] [place], [address] IG% 0.400 Normal 0.0-0.9 [facility] Comment on above: Result Comment: IG% - Immature Granulocytes (promyelocytes, myelocytes andmetamyelocytes) > 1% indicates that a LEFT SHIFT is Present. Performed By: #### L 500.4050, L501.2450, L100.0100 ####[facility] [address] [place], [address] Lymphocytes/100 WBC (Bld) 4.5 % Low 19-41 [facility] Comment on above: Performed By: #### L 500.4050, L501.2450, L100.0100 ####[facility] [address] [place], [address] MCH (RBC) [Entitic mass] 33.4 pg High 27.0-32.0 [facility] Comment on above: Performed By: #### L 500.4050, L501.2450, L100.0100 ####[facility] [address] [place], [address] MCHC (RBC) [Mass/Vol] 35.9 g/dL Normal 32-36 [facility] Comment on above: Performed By: #### L 500.4050, L501.2450, L100.0100 ####[facility] [address] [place], [address] MCV (RBC) [Entitic vol] 93.1 fL Normal 80-94 [facility] Comment on above: Performed By: #### L 500.4050, L501.2450, L100.0100 ####[facility] [address] [place], [address] Monocytes/100 WBC (Bld) 9.9 % Normal 0-10 [facility] Comment on above: Performed By: #### L 500.4050, L501.2450, L100.0100 ####[facility] [address] [place], [address] Neutrophils/100 WBC (Bld) 84.7 % High 47-70 [facility] Comment on above: Performed By: #### L 500.4050, L501.2450, L100.0100 ####[facility] [address] [place], [address] Nucleated RBC (Bld) [#/Vol] 0 10*3/uL Normal 0-5 [facility] Comment on above: Performed By: #### L 500.4050, L501.2450, L100.0100 ####[facility] [address] [place], [address] Platelet mean volume (Bld) [Entitic vol] 9.5 fL Normal 6.2-12.0 [facility] Comment on above: Performed By: #### L 500.4050, L501.2450, L100.0100 ####[facility] [address] [place], [address] Platelets (Bld) [#/Vol] 111 10*3/uL Low 150-450 [facility] Comment on above: Performed By: #### L 500.4050, L501.2450, L100.0100 ####[facility] [address] [place], [address] RBC (Bld) [#/Vol] 3.77 10*6/uL Low 4.6-6.2 [facility] Comment on above: Performed By: #### L 500.4050, L501.2450, L100.0100 ####[facility] [address] [place], [address] RDW SD 49.7 fl High 35.1-43.9 [facility] Comment on above: Performed By: #### L 500.4050, L501.2450, L100.0100 ####[facility] [address] [place], [address] WBC (Bld) [#/Vol] 7.8 10*3/uL Normal 4.4-11.0 [facility] Comment on above: Performed By: #### L 500.4050, L501.2450, L100.0100 ####[facility] [address] [place], [address] Calcium oxalate crystals det ection in urine sediment by light microscopyOrdered By: Handy Royal on 02-24-2025 Calcium oxalate crystals LM Ql (Urine sed) 1+ /hpf [facility] Carbon dioxide, total [Moles /volume] in Central venous bloodOrdered By: Gwyn Esquivel on 02-24-2025 CO2 [Moles/Vol] 27.3 mmol/L 21.0-32.0 [facility] Chloride assayOrdered By: Ben Esquivel on 02-24-2025 Chloride [Moles/Vol] 98 mmol/L 98-108 [facility] Comprehensive Metabolic Prof ilon 02-24-2025 Albumin [Mass/Vol] 3.8 g/dL Normal 3.5-5.0 [facility] Comment on above: Performed By: #### L 500.4050, L501.2450, L100.0100 ####[facility] [address] [place], [address] Albumin/Globulin [Mass ratio] 1.1 {ratio} Normal 0.9-2.4 [facility] Comment on above: Performed By: #### L 500.4050, L501.2450, L100.0100 ####[facility] [address] [place], [address] ALK PHOS 128 U/L Normal 40-129 [facility] Comment on above: Performed By: #### L 500.4050, L501.2450, L100.0100 ####[facility] [address] [place], [address] ALT [Catalytic activity/Vol] 16 U/L Normal <=46 [facility] Comment on above: Performed By: #### L 500.4050, L501.2450, L100.0100 ####[facility] [address] [place], [address] AST [Catalytic activity/Vol] 35 U/L Normal <=37 [facility] Comment on above: Performed By: #### L 500.4050, L501.2450, L100.0100 ####[facility] [address] [place], [address] Bilirubin [Mass/Vol] 0.72 mg/dL Normal 0.00-1.30 [facility] Comment on above: Performed By: #### L 500.4050, L501.2450, L100.0100 ####[facility] [address] [place], [address] BUN/CRE 12.2 RATIO Normal 10-20 [facility] Comment on above: Performed By: #### L 500.4050, L501.2450, L100.0100 ####[facility] [address] [place], [address] Calcium [Mass/Vol] 9.8 mg/dL Normal 7.6-11.0 [facility] Comment on above: Performed By: #### L 500.4050, L501.2450, L100.0100 ####[facility] [address] [place], [address] Chloride [Moles/Vol] 98 mmol/L Normal 98-108 [facility] Comment on above: Performed By: #### L 500.4050, L501.2450, L100.0100 ####[facility] [address] [place], [address] CO2 [Moles/Vol] 27.3 mmol/L Normal 21.0-32.0 [facility] Comment on above: Performed By: #### L 500.4050, L501.2450, L100.0100 ####[facility] [address] [place], [address] Creatinine [Mass/Vol] 1.39 mg/dL High 0.70-1.20 [facility] Comment on above: Performed By: #### L 500.4050, L501.2450, L100.0100 ####[facility] [address] [place], [address] ECRCL 39.01 ml/min Low 50-250 [facility] Comment on above: Performed By: #### L 500.4050, L501.2450, L100.0100 ####[facility] [address] [place], [address] GAP 12 Normal 5-15 [facility] Comment on above: Performed By: #### L 500.4050, L501.2450, L100.0100 ####[facility] [address] [place], [address] GFR/1.73 sq M.predicted among non-blacks MDRD (S/P/Bld) [Vol rate/Area] 58 mL/min/{1.73_m2} Low >60 [facility] Comment on above: Result Comment: mL/m in/1.73m2 CKD-EPI Creatinine Equation (2020) Performed By: #### L 500.4050, L501.2450, L100.0100 ####[facility] [address] [place], [address] Globulin (S) [Mass/Vol] 3.3 g/dL Normal 2.2-4.2 [facility] Comment on above: Performed By: #### L 500.4050, L501.2450, L100.0100 ####[facility] [address] [place], [address] Glucose [Mass/Vol] 112 mg/dL High 70-99 [facility] Comment on above: Performed By: #### L 500.4050, L501.2450, L100.0100 ####[facility] [address] [place], [address] Potassium [Moles/Vol] 3.3 mmol/L Normal 3.3-5.1 [facility] Comment on above: Performed By: #### L 500.4050, L501.2450, L100.0100 ####[facility] [address] [place], [address] Sodium [Moles/Vol] 138 mmol/L Normal 133-145 [facility] Comment on above: Performed By: #### L 500.4050, L501.2450, L100.0100 ####[facility] [address] [place], [address] T PROT 7.1 g/dL Normal 5.9-8.4 [facility] Comment on above: Performed By: #### L 500.4050, L501.2450, L100.0100 ####[facility] [address] [place], [address] Urea nitrogen [Mass/Vol] 17 mg/dL Normal 4-19 [facility] Comment on above: Performed By: #### L 500.4050, L501.2450, L100.0100 ####[facility] [address] [place], [address] Consultation - Surgicalon Consultation - Surgical Normal [facility] Emergency Department Summary on 02-24-2025 Emergency Department Summary Normal [facility] Eosinophil percentageOrdered By: Gwyn Esquivel on 02-24-2025 Eosinophils/100 WBC (Bld) 0.1 % 0-5 [facility] Erythrocyte distribution wid th ratioOrdered By: Gwyn Esquivel on 02-24-2025 Erythrocyte distribution width (RBC) [Ratio] 14.9 % High 11.6-14.6 [facility] Erythrocyte distribution wid th standard deviationOrdered By: Gwyn Esquivel on 02-24-2025 Erythrocyte distribution width (RBC) [Ratio] 49.7 fl High 35.1-43.9 [facility] Glomerular filtration rate ( GFR) estimation/1.73 sq m using serum, plasma, or whole bOrdered By: Gwyn Esquivel on 02-24-2025 GFR/1.73 sq M.predicted among non-blacks MDRD (S/P/Bld) [Vol rate/Area] 58 mL/min/{1.73_m2} Low >60 [facility] Comment on above: mL/min/1.73m2 CKD-EP I Creatinine Equation (2020) H AND P Exam - Hospitaliston 02-24-2025 H&P Exam - Hospitalist Normal [facility] Hematocrit Auto (Bld) [Volum e fraction]Ordered By: Gwyn Esquivel on 02-24-2025 Hematocrit (Bld) [Volume fraction] 35.1 % Low 40-54 [facility] Hemoglobin measurementOrdere d By: Gwyn Esquivel on 02-24-2025 Hemoglobin (Bld) [Mass/Vol] 12.6 g/dL Low 13.0-16.5 [facility] Immature granulocytes/100 WB C Auto (Bld)Ordered By: Gwyn Esquivel on 02-24-2025 Immature granulocytes/100 WBC (Bld) 0.400 % 0.0-0.9 [facility] Comment on above: IG% - Immature Granu locytes (promyelocytes, myelocytes and metamyelocytes) > 1% indicates that a LEFT SHIFT is Present. Ketones Test strip Ql (U)Ord ered By: Handy Royal on 02-24-2025 Ketones Ql (U) 15 mg/dl High Negative [facility] Laboratory - Chemistry and C hemistry - challengeOrdered By: Gwyn Esquivel on 02-24-2025 AST [Catalytic activity/Vol] 35 U/L <38 [facility] Lipaseon 02-24-2025 Lipase [Catalytic activity/Vol] 109 U/L High 13-75 [facility] Comment on above: Result Comment: Sofie flaherty note:LIPASE revised reference range effective 23.New Lipase methodology. Expected to produce lower valuesthan the previous assay method.NEW Reference Range: 13 - 75 U/L Performed By: #### L 500.4050, L501.2450, L100.0100 ####[facility] [address] [place], [place], [id number] Lipase measurementOrdered By : Gwyn Esquivel on 02-24-2025 Lipase [Catalytic activity/Vol] 109 U/L High 13-75 [facility] Comment on above: Please note:LIPASE r evised reference range effective 23. New Lipase methodology. Expected to produce lower values than the previous assay method. NEW Reference Range: 13 - 75 U/L MCV (mean corpuscular volume ) determinationOrdered By: Gwyn Esquivel on 02-24-2025 MCV (RBC) [Entitic vol] 93.1 fL 80-94 [facility] Magnesiumon 02-24-2025 Magnesium [Mass/Vol] 2.1 mg/dL Normal 1.5-2.2 [facility] Comment on above: Performed By: #### L 501.2300, L501.5200 ####[facility] [address] [place], [place], [id number] Magnesium measurement (mass/ volume)Ordered By: Handy Royal on 02-24-2025 Magnesium (Unsp spec) [Mass/Vol] 2.1 mg/dL 1.5-2.2 [facility] Mean corpuscular hemoglobin (MCH) determinationOrdered By: Gwyn Esquivel on 02-24-2025 MCH (RBC) [Entitic mass] 33.4 pg High 27.0-32.0 [facility] Mean corpuscular hemoglobin concentration (MCHC) determinationOrdered By: Gwyn Esquivel on 02-24-2025 MCHC (RBC) [Mass/Vol] 35.9 g/dL 32-36 [facility] Mean platelet volume determi nationOrdered By: Gwyn Esquivel on 02-24-2025 Platelet mean volume (Bld) [Entitic vol] 9.5 fL 6.2-12.0 [facility] Microscopic analysis of urin e for red blood cells (RBC)Ordered By: Handy Royal on 02-24-2025 Microscopic analysis of urine for red blood cells (RBC) 25-50 SEEN /hpf 0-5 [facility] Monocyte percentageOrdered B y: Gwyn Esquivel on 02-24-2025 Monocytes/100 WBC (Bld) 9.9 % 0-10 [facility] Mucus LM Ql (Urine sed)Order ed By: Handy Royal on 02-24-2025 Mucus Ql (Urine sed) 0 SEEN /hpf [facility] Neutrophil percentageOrdered By: Gwyn Esquivel on 02-24-2025 Neutrophils/100 WBC (Bld) 84.7 % High 47-70 [facility] Nitrite Test strip Ql (U)Ord ered By: Handy Royal on 02-24-2025 Nitrite Ql (U) Negative Negative [facility] Nucleated red blood cell per centageOrdered By: Gwyn Esquivel on 02-24-2025 Nucleated RBC/100 WBC (Bld) [Ratio] 0 % 0-5 [facility] Phosphoruson 02-24-2025 Phosphate [Mass/Vol] 2.7 mg/dL Normal 2.7-4.5 [facility] Comment on above: Performed By: #### L 501.2300, L501.5200 ####[facility] [address] [place], [place], [id number] Platelet countOrdered By: Ben Esquivel on 02-24-2025 Platelets (Bld) [#/Vol] 111 10*3/uL Low 150-450 [facility] Potassium measurement (mass/ volume)Ordered By: Gwyn Esquivel on 02-24-2025 Potassium (Unsp spec) [Mass/Vol] 3.3 mmol/L 3.3-5.1 [facility] Protein Test strip Ql (U)Ord ered By: Handy Royal on 02-24-2025 Protein Ql (U) 500 mg/dl High Negative [facility] RBC Auto (Bld) [#/Vol]Ordere d By: Gwyn Esquivel on 02-24-2025 RBC (Bld) [#/Vol] 3.77 10*6/uL Low 4.6-6.2 [facility] Serum creatinine measurement (mass/volume)Ordered By: Gwyn Esquivel on 02-24-2025 Creatinine [Mass/Vol] 1.39 mg/dL High 0.70-1.20 [facility] Serum globulin measurementOr dered By: Gwyn Esquivel on 02-24-2025 Globulin (S) [Mass/Vol] 3.3 g/dL 2.2-4.2 [facility] Serum glucose measurement (m ass/volume)Ordered By: Gwyn Esquivel on 02-24-2025 Glucose [Mass/Vol] 112 mg/dL High 70-99 [facility] Serum or plasma alanine galindo otransferase (ALT) measurementOrdered By: Gwyn Esquivel on 02-24-2025 ALT [Catalytic activity/Vol] 16 U/L <47 [facility] Serum or plasma albumin jesus urement (mass/volume)Ordered By: Gwyn Esquivel on 02-24-2025 Albumin [Mass/Vol] 3.8 g/dL 3.5-5.0 [facility] Serum or plasma albumin/glob ulin mass ratioOrdered By: Gwyn Esquivel on 02-24-2025 Albumin/Globulin [Mass ratio] 1.1 {ratio} 0.9-2.4 [facility] Serum or plasma alkaline cesar sphatase measurementOrdered By: Gwyn Esquivel on 02-24-2025 ALP [Catalytic activity/Vol] 128 U/L 40-129 [facility] Serum or plasma calcium jesus urement (mass/volume)Ordered By: Gwyn Esquivel on 02-24-2025 Calcium [Mass/Vol] 9.8 mg/dL 7.6-11.0 [facility] Serum or plasma urea nitroge n measurement (mass/volume)Ordered By: Gwyn Esquivel on 02-24-2025 Urea nitrogen [Mass/Vol] 17 mg/dL 4-19 [facility] Sodium levelOrdered By: Gwyn Esquivel on 02-24-2025 Sodium [Moles/Vol] 138 mmol/L 133-145 [facility] Squamous epithelial cells de tection in urine sediment by light microscopyOrdered By: Handy Royal on 02-24-2025 Epithelial cells.squamous LM Ql (Urine sed) 0 SEEN /hpf 0-5 [facility] Total proteinOrdered By: Trip Esquivel on 02-24-2025 Protein [Mass/Vol] 7.1 g/dL 5.9-8.4 [facility] Urinalysis, Completeon 02-24 BACTERIA 2+ /hpf Normal None Seen [facility] Comment on above: Order Comment: Micro scopic field is filled. Other elements may beobscured.CLEAN CATCH Performed By: #### L 400.0001 ####[facility] [address] [facility] [address] [place] OX CRYSTAL 1+ /hpf Normal [facility] Comment on above: Order Comment: Micro scopic field is filled. Other elements may beobscured.CLEAN CATCH Performed By: #### L 400.0001 ####[facility] [address] [place], [address] RBC 25-50 SEEN Normal 0-[address] [place] [address] Comment on above: Order Comment: Micro scopic field is filled. Other elements may beobscured.CLEAN CATCH Performed By: #### L 400.0001 ####[facility] [address] [place], [address] WBC >100 SEEN Normal 0-[address] [place] [address] Comment on above: Order Comment: Micro scopic field is filled. Other elements may beobscured.CLEAN CATCH Result Comment: Micr oscopic field is filled. Other elements may beobscured. Performed By: #### L 400.0001 ####[facility] [address] [place], [address] EPI,SQUAMOUS 0 SEEN Normal 0-5 [facility] Comment on above: Order Comment: Micro scopic field is filled. Other elements may beobscured.CLEAN CATCH Performed By: #### L 400.0001 ####[facility] [address] [place], [address] Mucus Ql (Urine sed) 0 SEEN Normal [facility] Comment on above: Order Comment: Micro scopic field is filled. Other elements may beobscured.CLEAN CATCH Performed By: #### L 400.0001 ####[facility] [address] [place], [address] Urine clarityOrdered By: Nico Royal on 02-24-2025 Clarity (U) Turbid Clear [facility] Urine color determinationOrd ered By: Handy Royal on 02-24-2025 Color (U) Yellow Yellow [facility] Urine glucose detectionOrder ed By: Handy Royal on 02-24-2025 Glucose Ql (U) Normal mg/dl Normal [facility] Urine leukocyte esterase det ection by dipstickOrdered By: Handy Royal on 02-24-2025 Leukocyte esterase Test strip Ql (U) 500 /ul High Negative [facility] Urine pHOrdered By: Handy Royal on 02-24-2025 pH (U) 6.0 [pH] 5.0 - 8.0 [facility] Urine sediment bacteria coun t by microscopy (number/high power field)Ordered By: Handy Royal on 02-24-2025 Bacteria LM.HPF (Urine sed) [#/Area] 2 /[HPF] None Seen [facility] Urine specific gravity measu rementOrdered By: Handy Royal on 02-24-2025 Specific gravity (U) [Rel density] 1.025 1.002-1.03 0 [facility] Urine urobilinogen measureme ntOrdered By: Handy Royal on 02-24-2025 Urobilinogen Ql (U) Normal mg/dl Normal [facility] White blood cell (WBC) count Ordered By: Gwyn Esquivel on 02-24-2025 WBC (Bld) [#/Vol] 7.8 10*3/uL 4.4-11.0 [facility] White blood cell countOrdere d By: Handy Royal on 02-24-2025 White blood cell count >100 SEEN /hpf 0-5 [facility] Comment on above: Microscopic field is filled. Other elements may be obscured. Urine Cultureon 02-16-2025 URC Normal [facility] Comment on above: Performed By: #### L 400.0001, M100.2200 ####[facility] [address] [place], [place], [id number] Performed By: #### M 100.2200, L400.0001 ####[facility] [address] [place], [place], [phone] Carcinoembryonic Antigenon 0 02-15-2025 CEA 2.9 ng/mL Normal 0.0-4.7 [facility] Comment on above: Order Comment: ADD O N FROM EARLIER TODAY Result Comment: Nons mokers <3.9 Smokers <5.6[employer] Electrochemiluminescence Immunoassay(ECLIA)Values obtained with different assay methods or kitscannot be used interchangeably. Results cannot beinterpreted as absolute evidence of the presence orabsence of malignant disease.Performed at: [facility] [email or web address] [id number] Director: Javid Diehl PhD, Phone: [phone] Performed By: #### L 4811.9935 ####[facility] [address] [place], [place], [phone] Absolute lymphocyte countOrd ered By: Guy Ho on 02-14-2025 Lymphocytes Auto (Unsp spec) [#/Vol] 0.45 10*3/uL Low 0.83-4.51 [facility] Absolute neutrophil countOrd ered By: Guy Ho on 02-14-2025 Neutrophils (Bld) [#/Vol] 3.1 10*3/uL 2.0-7.7 [facility] Anion gap in Serum or Plasma Ordered By: Guy Ho on 02-14-2025 Anion gap [Moles/Vol] 9 mmol/L 5-15 [facility] Automated lymphocyte count a s percentage of total leukocytesOrdered By: Guy Ho on 02-14-2025 Lymphocytes/100 WBC Auto (Unsp spec) 9.5 % Low 19-41 [facility] BUN/creatinine ratioOrdered By: Guy Ho on 02-14-2025 Urea nitrogen/Creatinine [Mass ratio] 13.3 mg/mg 10-20 [facility] Basophil percentageOrdered B y: Guy Ho on 02-14-2025 Basophils/100 WBC (Bld) 1.1 % High 0-1 [facility] Bilirubin Test strip Ql (U)O rdered By: Guy Ho on 02-14-2025 Bilirubin Ql (U) Negative Negative [facility] Bilirubin, totalOrdered By: Guy Ho on 02-14-2025 Bilirubin [Mass/Vol] 0.69 mg/dL 0.00-1.30 [facility] CBC W/Diff, Automatedon 01-19 Absolute Lymph 0.45 X10 3/uL Low 0.83-4.51 [facility] Comment on above: Performed By: #### L 100.0100, L501.5200, L500.4050 ####[facility] [address] [place], [address] Absolute Neut 3.1 X10 3/uL Normal 2.0-7.7 [facility] Comment on above: Performed By: #### L 100.0100, L501.5200, L500.4050 ####[facility] [address] [place], [address] Basophils/100 WBC (Bld) 1.1 % High 0-1 [facility] Comment on above: Performed By: #### L 100.0100, L501.5200, L500.4050 ####[facility] [address] [place], [address] Eosinophils/100 WBC (Bld) 1.3 % Normal 0-5 [facility] Comment on above: Performed By: #### L 100.0100, L501.5200, L500.4050 ####[facility] [address] [place], [address] Erythrocyte distribution width (RBC) [Ratio] 15.3 % High 11.6-14.6 [facility] Comment on above: Performed By: #### L 100.0100, L501.5200, L500.4050 ####[facility] [address] [place], [address] Hematocrit (Bld) [Volume fraction] 34.4 % Low 40-54 [facility] Comment on above: Performed By: #### L 100.0100, L501.5200, L500.4050 ####[facility] [address] [place], [address] Hemoglobin (Bld) [Mass/Vol] 12.4 g/dL Low 13.0-16.5 [facility] Comment on above: Performed By: #### L 100.0100, L501.5200, L500.4050 ####[facility] [address] [place], [address] IG% 0.600 Normal 0.0-0.9 [facility] Comment on above: Result Comment: IG% - Immature Granulocytes (promyelocytes, myelocytes andmetamyelocytes) > 1% indicates that a LEFT SHIFT is Present. Performed By: #### L 100.0100, L501.5200, L500.4050 ####[facility] [address] [place], [address] Lymphocytes/100 WBC (Bld) 9.5 % Low 19-41 [facility] Comment on above: Performed By: #### L 100.0100, L501.5200, L500.4050 ####[facility] [address] [place], [address] MCH (RBC) [Entitic mass] 34.2 pg High 27.0-32.0 [facility] Comment on above: Performed By: #### L 100.0100, L501.5200, L500.4050 ####[facility] [address] [place], [address] MCHC (RBC) [Mass/Vol] 36.0 g/dL Normal 32-36 [facility] Comment on above: Performed By: #### L 100.0100, L501.5200, L500.4050 ####[facility] [address] [place], [address] MCV (RBC) [Entitic vol] 94.8 fL High 80-94 [facility] Comment on above: Performed By: #### L 100.0100, L501.5200, L500.4050 ####[facility] [address] [place], [address] Monocytes/100 WBC (Bld) 21.6 % High 0-10 [facility] Comment on above: Performed By: #### L 100.0100, L501.5200, L500.4050 ####[facility] [address] [place], [address] Neutrophils/100 WBC (Bld) 65.9 % Normal 47-70 [facility] Comment on above: Performed By: #### L 100.0100, L501.5200, L500.4050 ####[facility] [address] [place], [address] Nucleated RBC (Bld) [#/Vol] 0 10*3/uL Normal 0-5 [facility] Comment on above: Performed By: #### L 100.0100, L501.5200, L500.4050 ####[facility] [address] [place], [address] Platelet mean volume (Bld) [Entitic vol] 8.9 fL Normal 6.2-12.0 [facility] Comment on above: Performed By: #### L 100.0100, L501.5200, L500.4050 ####[facility] [address] [place], [address] Platelets (Bld) [#/Vol] 130 10*3/uL Low 150-450 [facility] Comment on above: Performed By: #### L 100.0100, L501.5200, L500.4050 ####[facility] [address] [place], [address] RBC (Bld) [#/Vol] 3.63 10*6/uL Low 4.6-6.2 [facility] Comment on above: Performed By: #### L 100.0100, L501.5200, L500.4050 ####[facility] [address] [place], [address] RDW SD 52.5 fl High 35.1-43.9 [facility] Comment on above: Performed By: #### L 100.0100, L501.5200, L500.4050 ####[facility] [address] [place], [address] WBC (Bld) [#/Vol] 4.7 10*3/uL Normal 4.4-11.0 [facility] Comment on above: Performed By: #### L 100.0100, L501.5200, L500.4050 ####[facility] [address] [place], [address] Calcium oxalate crystals det ection in urine sediment by light microscopyOrdered By: Guy Ho on 02-14-2025 Calcium oxalate crystals LM Ql (Urine sed) 2+ /hpf [facility] Carbon dioxide, total [Moles /volume] in Central venous bloodOrdered By: Guy Ho on 02-14-2025 CO2 [Moles/Vol] 27.8 mmol/L 21.0-32.0 [facility] Chloride assayOrdered By: Greta Ho on 02-14-2025 Chloride [Moles/Vol] 100 mmol/L 98-108 [facility] Comprehensive Metabolic Prof ilon 02-14-2025 Albumin [Mass/Vol] 3.6 g/dL Normal 3.5-5.0 [facility] Comment on above: Performed By: #### L 100.0100, L501.5200, L500.4050 ####[facility] [address] [place], [address] Albumin/Globulin [Mass ratio] 1.1 {ratio} Normal 0.9-2.4 [facility] Comment on above: Performed By: #### L 100.0100, L501.5200, L500.4050 ####[facility] [address] [place], [address] ALK PHOS 127 U/L Normal 40-129 [facility] Comment on above: Performed By: #### L 100.0100, L501.5200, L500.4050 ####[facility] [address] [place], [address] ALT [Catalytic activity/Vol] 15 U/L Normal <=46 [facility] Comment on above: Performed By: #### L 100.0100, L501.5200, L500.4050 ####[facility] [address] [place], [address] AST [Catalytic activity/Vol] 27 U/L Normal <=37 [facility] Comment on above: Performed By: #### L 100.0100, L501.5200, L500.4050 ####[facility] [address] [place], [address] Bilirubin [Mass/Vol] 0.69 mg/dL Normal 0.00-1.30 [facility] Comment on above: Performed By: #### L 100.0100, L501.5200, L500.4050 ####[facility] [address] [place], [address] BUN/CRE 13.3 RATIO Normal 10-20 [facility] Comment on above: Performed By: #### L 100.0100, L501.5200, L500.4050 ####[facility] [address] [place], [address] Calcium [Mass/Vol] 9.4 mg/dL Normal 7.6-11.0 [facility] Comment on above: Performed By: #### L 100.0100, L501.5200, L500.4050 ####[facility] [address] [place], [address] Chloride [Moles/Vol] 100 mmol/L Normal 98-108 [facility] Comment on above: Performed By: #### L 100.0100, L501.5200, L500.4050 ####[facility] [address] [place], [address] CO2 [Moles/Vol] 27.8 mmol/L Normal 21.0-32.0 [facility] Comment on above: Performed By: #### L 100.0100, L501.5200, L500.4050 ####[facility] [address] [place], [address] Creatinine [Mass/Vol] 1.33 mg/dL High 0.70-1.20 [facility] Comment on above: Performed By: #### L 100.0100, L501.5200, L500.4050 ####[facility] [address] [place], [address] ECRCL 43.52 ml/min Low 50-250 [facility] Comment on above: Performed By: #### L 100.0100, L501.5200, L500.4050 ####[facility] [address] [place], [address] GAP 9 Normal 5-15 [facility] Comment on above: Performed By: #### L 100.0100, L501.5200, L500.4050 ####[facility] [address] [place], [address] GFR/1.73 sq M.predicted among non-blacks MDRD (S/P/Bld) [Vol rate/Area] 62 mL/min/{1.73_m2} Normal >60 [facility] Comment on above: Result Comment: mL/m in/1.73m2 CKD-EPI Creatinine Equation (2020) Performed By: #### L 100.0100, L501.5200, L500.4050 ####[facility] [address] [place], [address] Globulin (S) [Mass/Vol] 3.2 g/dL Normal 2.2-4.2 [facility] Comment on above: Performed By: #### L 100.0100, L501.5200, L500.4050 ####[facility] [address] [place], [address] Glucose [Mass/Vol] 106 mg/dL High 70-99 [facility] Comment on above: Performed By: #### L 100.0100, L501.5200, L500.4050 ####[facility] [address] [place], [address] Potassium [Moles/Vol] 3.4 mmol/L Normal 3.3-5.1 [facility] Comment on above: Performed By: #### L 100.0100, L501.5200, L500.4050 ####[facility] [address] [place], [address] Sodium [Moles/Vol] 137 mmol/L Normal 133-145 [facility] Comment on above: Performed By: #### L 100.0100, L501.5200, L500.4050 ####[facility] [address] [place], [address] T PROT 6.8 g/dL Normal 5.9-8.4 [facility] Comment on above: Performed By: #### L 100.0100, L501.5200, L500.4050 ####[facility] [address] [place], [address] Urea nitrogen [Mass/Vol] 18 mg/dL Normal 4-19 [facility] Comment on above: Performed By: #### L 100.0100, L501.5200, L500.4050 ####[facility] [address] [place], [address] Eosinophil percentageOrdered By: Guy Ho on 02-14-2025 Eosinophils/100 WBC (Bld) 1.3 % 0-5 [facility] Erythrocyte distribution wid th ratioOrdered By: [facility] on 02-[facility]-2025 Erythrocyte distribution width (RBC) [Ratio] 15.3 % High 11.6-14.6 [facility] Erythrocyte distribution wid th standard deviationOrdered By: [facility]ington[facility]isa on 02-14-2025 Erythrocyte distribution width (RBC) [Ratio] 52.5 fl High 35.1-43.9 [facility] Glomerular filtration rate ( GFR) estimation/1.73 sq m using serum, plasma, or whole bOrdered By: Guy Ho on 02-14-2025 GFR/1.73 sq M.predicted among non-blacks MDRD (S/P/Bld) [Vol rate/Area] 62 mL/min/{1.73_m2} >60 [facility] Comment on above: mL/min/1.73m2 CKD-EP I Creatinine Equation (2020) Hematocrit Auto (Bld) [Volum e fraction]Ordered By: Guy Ho on 02-14-2025 Hematocrit (Bld) [Volume fraction] 34.4 % Low 40-54 [facility] Hemoglobin measurementOrdere d By: Guy Ho on 02-14-2025 Hemoglobin (Bld) [Mass/Vol] 12.4 g/dL Low 13.0-16.5 [facility] Immature granulocytes/100 WB C Auto (Bld)Ordered By: Guy Ho on 02-14-2025 Immature granulocytes/100 WBC (Bld) 0.600 % 0.0-0.9 [facility] Comment on above: IG% - Immature Granu locytes (promyelocytes, myelocytes and metamyelocytes) > 1% indicates that a LEFT SHIFT is Present. Ketones Test strip Ql (U)Ord ered By: Guy Ho on 02-14-2025 Ketones Ql (U) Negative Negative [facility] Laboratory - Chemistry and C hemistry - challengeOrdered By: Guy Ho on 02-14-2025 AST [Catalytic activity/Vol] 27 U/L <38 [facility] MCV (mean corpuscular volume ) determinationOrdered By: Guy Ho on 02-14-2025 MCV (RBC) [Entitic vol] 94.8 fL High 80-94 [facility] Magnesiumon 02-14-2025 Magnesium [Mass/Vol] 2.3 mg/dL High 1.5-2.2 [facility] Comment on above: Performed By: #### L 100.0100, L501.5200, L500.4050 ####[facility] [address] [place], [address] Magnesium measurement (mass/ volume)Ordered By: Guy Ho on 02-14-2025 Magnesium (Unsp spec) [Mass/Vol] 2.3 mg/dL High 1.5-2.2 [facility] Mean corpuscular hemoglobin (MCH) determinationOrdered By: Guy Ho on 02-14-2025 MCH (RBC) [Entitic mass] 34.2 pg High 27.0-32.0 [facility] Mean corpuscular hemoglobin concentration (MCHC) determinationOrdered By: Guy Ho on 02-14-2025 MCHC (RBC) [Mass/Vol] 36.0 g/dL 32-36 [facility] Mean platelet volume determi nationOrdered By: Guy Ho on 02-14-2025 Platelet mean volume (Bld) [Entitic vol] 8.9 fL 6.2-12.0 [facility] Microscopic analysis of urin e for red blood cells (RBC)Ordered By: Guy Ho on 02-14-2025 Microscopic analysis of urine for red blood cells (RBC) 50-100 SEEN /hpf 0-5 [facility] Monocyte percentageOrdered B y: Guy Ho on 02-14-2025 Monocytes/100 WBC (Bld) 21.6 % High 0-10 [facility] Mucus LM Ql (Urine sed)Order ed By: Guy Ho on 02-14-2025 Mucus Ql (Urine sed) 0 SEEN /hpf [facility] Neutrophil percentageOrdered By: Guy Ho on 02-14-2025 Neutrophils/100 WBC (Bld) 65.9 % 47-70 [facility] Nitrite Test strip Ql (U)Ord ered By: Guy Ho on 02-14-2025 Nitrite Ql (U) Negative Negative [facility] Nucleated red blood cell per centageOrdered By: Guy Ho on 02-14-2025 Nucleated RBC/100 WBC (Bld) [Ratio] 0 % 0-5 [facility] Oncology Visit Reporton 01-19 Oncology Visit Report Normal [facility] Platelet countOrdered By: Greta Ho on 02-14-2025 Platelets (Bld) [#/Vol] 130 10*3/uL Low 150-450 [facility] Potassium measurement (mass/ volume)Ordered By: Guy Ho on 02-14-2025 Potassium (Unsp spec) [Mass/Vol] 3.4 mmol/L 3.3-5.1 [facility] Protein Test strip Ql (U)Ord ered By: Guy Ho on 02-14-2025 Protein Ql (U) 100 mg/dl High Negative [facility] RBC Auto (Bld) [#/Vol]Ordere d By: Guy Ho on 02-14-2025 RBC (Bld) [#/Vol] 3.63 10*6/uL Low 4.6-6.2 [facility] Serum creatinine measurement (mass/volume)Ordered By: Guy Ho on 02-14-2025 Creatinine [Mass/Vol] 1.33 mg/dL High 0.70-1.20 [facility] Serum globulin measurementOr dered By: Guy Ho on 02-14-2025 Globulin (S) [Mass/Vol] 3.2 g/dL 2.2-4.2 [facility] Serum glucose measurement (m ass/volume)Ordered By: Guy Ho on 02-14-2025 Glucose [Mass/Vol] 106 mg/dL High 70-99 [facility] Serum or plasma alanine galindo otransferase (ALT) measurementOrdered By: Guy Ho on 02-14-2025 ALT [Catalytic activity/Vol] 15 U/L <47 [facility] Serum or plasma albumin jesus urement (mass/volume)Ordered By: Guy oH on 02-14-2025 Albumin [Mass/Vol] 3.6 g/dL 3.5-5.0 [facility] Serum or plasma albumin/glob ulin mass ratioOrdered By: Guy Ho on 02-14-2025 Albumin/Globulin [Mass ratio] 1.1 {ratio} 0.9-2.4 [facility] Serum or plasma alkaline cesar sphatase measurementOrdered By: Guy Ho on 02-14-2025 ALP [Catalytic activity/Vol] 127 U/L 40-129 [facility] Serum or plasma calcium jesus urement (mass/volume)Ordered By: Guy Ho on 02-14-2025 Calcium [Mass/Vol] 9.4 mg/dL 7.6-11.0 [facility] Serum or plasma carcinoembry onic antigen measurement (mass/volume)Ordered By: Guy Ho on 02-14-2025 Carcinoembryonic Ag [Mass/Vol] 2.9 ng/mL 0.0-4.7 [facility] Comment on above: Nonsmokers <3.9 Smok ers <5.6[employer] Electrochemiluminescence Immunoassay(ECLIA)Values obtained with different assay methods or kitscannot be used interchangeably. Results cannot beinterpreted as absolute evidence of the presence orabsence of malignant disease.Performed at: [address] [id number] Director: Javid Diehl PhD, Phone: [phone] Serum or plasma urea nitroge n measurement (mass/volume)Ordered By: Guy Ho on 02-14-2025 Urea nitrogen [Mass/Vol] 18 mg/dL 4-19 [facility] Sodium levelOrdered By: Sudeep Ho on 02-14-2025 Sodium [Moles/Vol] 137 mmol/L 133-145 [facility] Squamous epithelial cells de tection in urine sediment by light microscopyOrdered By: Guy Ho on 02-14-2025 Epithelial cells.squamous LM Ql (Urine sed) 0-5 SEEN /hpf 0-5 [facility] Total proteinOrdered By: Demetrio Ho on 02-14-2025 Protein [Mass/Vol] 6.8 g/dL 5.9-8.4 [facility] Urinalysis, Completeon 02-14 BACTERIA 4+ /hpf Normal None Seen [facility] Comment on above: Order Comment: TUBE 2TUBE 2COLLECTOR TO SPECIFY Performed By: #### L 400.0001, M100.2200 ####[facility] [address] [place], [address] CA OX CRYSTAL 2+ /hpf Normal [facility] Comment on above: Order Comment: TUBE 2TUBE 2COLLECTOR TO SPECIFY Performed By: #### L 400.0001, M100.2200 ####[facility] [address] [place], [address] EPI,SQUAMOUS 0-5 SEEN Normal 0-5 [facility] Comment on above: Order Comment: TUBE 2TUBE 2COLLECTOR TO SPECIFY Performed By: #### L 400.0001, M100.2200 ####[facility] [address] [place], [address] RBC 50-100 SEEN Normal 0-5 [facility] Comment on above: Order Comment: TUBE 2TUBE 2COLLECTOR TO SPECIFY Performed By: #### L 400.0001, M100.2200 ####[facility] [address] [place], [address] WBC 50-100 SEEN Normal 0-5 [facility] Comment on above: Order Comment: TUBE 2TUBE 2COLLECTOR TO SPECIFY Performed By: #### L 400.0001, M100.2200 ####[facility] [address] [place], [address] BACTERIA 4+ /hpf Normal None Seen [facility] Comment on above: Order Comment: TUBE 1TUBE ONECOLLECTOR TO SPECIFY Performed By: #### M 100.2200, L400.0001 ####[facility] [address] [place], [address] EPI,SQUAMOUS 0-5 SEEN Normal 0-5 [facility] Comment on above: Order Comment: TUBE 1TUBE ONECOLLECTOR TO SPECIFY Performed By: #### M 100.2200, L400.0001 ####[facility] [address] [place], [address] RBC 50-100 SEEN Normal 0-5 [facility] Comment on above: Order Comment: TUBE 1TUBE ONECOLLECTOR TO SPECIFY Performed By: #### M 100.2200, L400.0001 ####[facility] [address] [place], [address] WBC 50-100 SEEN Normal 0-5 [facility] Comment on above: Order Comment: TUBE 1TUBE ONECOLLECTOR TO SPECIFY Performed By: #### M 100.2200, L400.0001 ####[facility] [address] [place], [address] Mucus Ql (Urine sed) 0 SEEN Normal [facility] Comment on above: Order Comment: TUBE 1TUBE ONECOLLECTOR TO SPECIFY Performed By: #### M 100.2200, L400.0001 ####[facility] [address] [place], [address] Order Comment: TUBE 2TUBE 2COLLECTOR TO SPECIFY Performed By: #### L 400.0001, M100.2200 ####[facility] [address] [place], [address] Urine clarityOrdered By: Demetrio Ho on 02-14-2025 Clarity (U) Cloudy Clear [facility] Urine color determinationOrd ered By: Guy Ho on 02-14-2025 Color (U) Yellow Yellow [facility] Urine cultureOrdered By: Demetrio Ho on 02-14-2025 Bacteria identified Cx Nom (U) Escherichia coli Abnormal [facility] Urine glucose detectionOrder ed By: Guy Ho on 02-14-2025 Glucose Ql (U) Normal mg/dl Normal [facility] Urine leukocyte esterase det ection by dipstickOrdered By: Guy Ho on 02-14-2025 Leukocyte esterase Test strip Ql (U) 500 /ul High Negative [facility] Urine pHOrdered By: Guy coffey on 02-14-2025 pH (U) 6.0 [pH] 5.0 - 8.0 [facility] Urine sediment bacteria coun t by microscopy (number/high power field)Ordered By: Guy Ho on 02-14-2025 Bacteria LM.HPF (Urine sed) [#/Area] 4 /[HPF] None Seen [facility] Urine specific gravity measu rementOrdered By: Guy Ho on 02-14-2025 Specific gravity (U) [Rel density] 1.020 1.002-1.03 0 [facility] Urine urobilinogen measureme ntOrdered By: Guy Ho on 02-14-2025 Urobilinogen Ql (U) 4 mg/dl High Normal [facility] White blood cell (WBC) count Ordered By: Guy Ho on 02-14-2025 WBC (Bld) [#/Vol] 4.7 10*3/uL 4.4-11.0 [facility] White blood cell countOrdere d By: Guy Ho on 02-14-2025 White blood cell count 50-100 SEEN /hpf 0-5 [facility] CBC W/Diff, Automatedon 04- Absolute Lymph 0.33 X10 3/uL Low 0.83-4.51 [facility] Comment on above: Performed By: #### L 100.0100, L500.4050, L501.5200 ####[facility] [address] [place], [address] Absolute Neut 1.7 X10 3/uL Low 2.0-7.7 [facility] Comment on above: Performed By: #### L 100.0100, L500.4050, L501.5200 ####[facility] [address] [place], [address] Basophils/100 WBC (Bld) 1.9 % High 0-1 [facility] Comment on above: Performed By: #### L 100.0100, L500.4050, L501.5200 ####[facility] [address] [place], [address] Eosinophils/100 WBC (Bld) 2.9 % Normal 0-5 [facility] Comment on above: Performed By: #### L 100.0100, L500.4050, L501.5200 ####[facility] [address] [place], [address] Erythrocyte distribution width (RBC) [Ratio] 16.7 % High 11.6-14.6 [facility] Comment on above: Performed By: #### L 100.0100, L500.4050, L501.5200 ####[facility] [address] [place], [address] Hematocrit (Bld) [Volume fraction] 32.1 % Low 40-54 [facility] Comment on above: Performed By: #### L 100.0100, L500.4050, L501.5200 ####[facility] [address] [place], [address] Hemoglobin (Bld) [Mass/Vol] 10.9 g/dL Low 13.0-16.5 [facility] Comment on above: Performed By: #### L 100.0100, L500.4050, L501.5200 ####[facility] [address] [place], [address] IG% 0.600 Normal 0.0-0.9 [facility] Comment on above: Result Comment: IG% - Immature Granulocytes (promyelocytes, myelocytes andmetamyelocytes) > 1% indicates that a LEFT SHIFT is Present. Performed By: #### L 100.0100, L500.4050, L501.5200 ####[facility] [address] [place], [address] Lymphocytes/100 WBC (Bld) 10.7 % Low 19-41 [facility] Comment on above: Performed By: #### L 100.0100, L500.4050, L501.5200 ####[facility] [address] [place], [address] MCH (RBC) [Entitic mass] 32.4 pg High 27.0-32.0 [facility] Comment on above: Performed By: #### L 100.0100, L500.4050, L501.5200 ####[facility] [address] [place], [address] MCHC (RBC) [Mass/Vol] 34.0 g/dL Normal 32-36 [facility] Comment on above: Performed By: #### L 100.0100, L500.4050, L501.5200 ####[facility] [address] [place], [address] MCV (RBC) [Entitic vol] 95.5 fL High 80-94 [facility] Comment on above: Performed By: #### L 100.0100, L500.4050, L501.5200 ####[facility] [address] [place], [address] Monocytes/100 WBC (Bld) 27.8 % High 0-10 [facility] Comment on above: Performed By: #### L 100.0100, L500.4050, L501.5200 ####[facility] [address] [place], [address] Neutrophils/100 WBC (Bld) 56.1 % Normal 47-70 [facility] Comment on above: Performed By: #### L 100.0100, L500.4050, L501.5200 ####[facility] [address] [place], [address] Nucleated RBC (Bld) [#/Vol] 0 10*3/uL Normal 0-5 [facility] Comment on above: Performed By: #### L 100.0100, L500.4050, L501.5200 ####[facility] [address] [place], [address] Platelet mean volume (Bld) [Entitic vol] 8.8 fL Normal 6.2-12.0 [facility] Comment on above: Performed By: #### L 100.0100, L500.4050, L501.5200 ####[facility] [address] [place], [address] Platelets (Bld) [#/Vol] 136 10*3/uL Low 150-450 [facility] Comment on above: Performed By: #### L 100.0100, L500.4050, L501.5200 ####[facility] [address] [place], [address] RBC (Bld) [#/Vol] 3.36 10*6/uL Low 4.6-6.2 [facility] Comment on above: Performed By: #### L 100.0100, L500.4050, L501.5200 ####[facility] [address] [place], [address] RDW SD 58.0 fl High 35.1-43.9 [facility] Comment on above: Performed By: #### L 100.0100, L500.4050, L501.5200 ####[facility] [address] [place], [address] WBC (Bld) [#/Vol] 3.1 10*3/uL Low 4.4-11.0 [facility] Comment on above: Performed By: #### L 100.0100, L500.4050, L501.5200 ####[facility] [address] [place], [address] Comprehensive Metabolic Prof [facility] 04-14-2025 Albumin [Mass/Vol] 3.5 g/dL Normal 3.5-5.0 [facility] Comment on above: Performed By: #### L 100.0100, L500.4050, L501.5200 ####[facility] [address] [place], [address] Albumin/Globulin [Mass ratio] 1.0 {ratio} Normal 0.9-2.4 [facility] Comment on above: Performed By: #### L 100.0100, L500.4050, L501.5200 ####[facility] [address] [place], [address] ALK PHOS 125 U/L Normal 40-129 [facility] Comment on above: Performed By: #### L 100.0100, L500.4050, L501.5200 ####[facility] [address] [place], [address] ALT [Catalytic activity/Vol] 15 U/L Normal <=46 [facility] Comment on above: Performed By: #### L 100.0100, L500.4050, L501.5200 ####[facility] [address] [place], [address] AST [Catalytic activity/Vol] 26 U/L Normal <=37 [facility] Comment on above: Performed By: #### L 100.0100, L500.4050, L501.5200 ####[facility] [address] [place], [address] Bilirubin [Mass/Vol] 0.35 mg/dL Normal 0.00-1.30 [facility] Comment on above: Performed By: #### L 100.0100, L500.4050, L501.5200 ####[facility] [address] [place], [address] BUN/CRE 13.0 RATIO Normal 10-20 [facility] Comment on above: Performed By: #### L 100.0100, L500.4050, L501.5200 ####[facility] [address] [place], [address] Calcium [Mass/Vol] 9.5 mg/dL Normal 7.6-11.0 [facility] Comment on above: Performed By: #### L 100.0100, L500.4050, L501.5200 ####[facility] [address] [place], [address] Chloride [Moles/Vol] 105 mmol/L Normal 98-108 [facility] Comment on above: Performed By: #### L 100.0100, L500.4050, L501.5200 ####[facility] [address] [place], [address] CO2 [Moles/Vol] 24.3 mmol/L Normal 21.0-32.0 [facility] Comment on above: Performed By: #### L 100.0100, L500.4050, L501.5200 ####[facility] [address] [place], [address] Creatinine [Mass/Vol] 1.35 mg/dL High 0.70-1.20 [facility] Comment on above: Performed By: #### L 100.0100, L500.4050, L501.5200 ####[facility] [address] [place], [address] ECRCL 45.10 ml/min Low 50-250 [facility] Comment on above: Performed By: #### L 100.0100, L500.4050, L501.5200 ####[facility] [address] [place], [address] GAP 9 Normal 5-15 [facility] Comment on above: Performed By: #### L 100.0100, L500.4050, L501.5200 ####[facility] [address] [place], [address] GFR/1.73 sq M.predicted among non-blacks MDRD (S/P/Bld) [Vol rate/Area] 60 mL/min/{1.73_m2} Normal >60 [facility] Comment on above: Result Comment: mL/m in/1.73m2 CKD-EPI Creatinine Equation (2020) Performed By: #### L 100.0100, L500.4050, L501.5200 ####[facility] [address] [place], [address] Globulin (S) [Mass/Vol] 3.4 g/dL Normal 2.2-4.2 [facility] Comment on above: Performed By: #### L 100.0100, L500.4050, L501.5200 ####[facility] [address] [place], [address] Glucose [Mass/Vol] 90 mg/dL Normal 70-99 [facility] Comment on above: Performed By: #### L 100.0100, L500.4050, L501.5200 ####[facility] [address] [place], [address] Potassium [Moles/Vol] 3.5 mmol/L Normal 3.3-5.1 [facility] Comment on above: Performed By: #### L 100.0100, L500.4050, L501.5200 ####[facility] [address] [place], [address] Sodium [Moles/Vol] 138 mmol/L Normal 133-145 [facility] Comment on above: Performed By: #### L 100.0100, L500.4050, L501.5200 ####[facility] [address] [place], [address] T PROT 6.9 g/dL Normal 5.9-8.4 [facility] Comment on above: Performed By: #### L 100.0100, L500.4050, L501.5200 ####[facility] [address] [place], [address] Urea nitrogen [Mass/Vol] 18 mg/dL Normal 4-19 [facility] Comment on above: Performed By: #### L 100.0100, L500.4050, L501.5200 ####[facility] [address] [place], [address] Magnesiumon 01-31-2025 Magnesium [Mass/Vol] 2.2 mg/dL Normal 1.5-2.2 [facility] Comment on above: Performed By: #### L 100.0100, L500.4050, L501.5200 ####[facility] [address] [place], [address] Oncology Visit Reporton 01-18 Oncology Visit Report Normal [facility] CBC W/Diff, Automatedon - Absolute Lymph 0.40 X10 3/uL Low 0.83-4.51 [facility] Comment on above: Performed By: #### L 500.4050, L100.0100, L501.5200 ####[facility] [address] [place], [address] Absolute Neut 2.0 X10 3/uL Normal 2.0-7.7 [facility] Comment on above: Performed By: #### L 500.4050, L100.0100, L501.5200 ####[facility] [address] [place], [address] Basophils/100 WBC (Bld) 1.2 % High 0-1 [facility] Comment on above: Performed By: #### L 500.4050, L100.0100, L501.5200 ####[facility] [address] [place], [address] Eosinophils/100 WBC (Bld) 4.0 % Normal 0-5 [facility] Comment on above: Performed By: #### L 500.4050, L100.0100, L501.5200 ####[facility] [address] [place], [address] Erythrocyte distribution width (RBC) [Ratio] 17.2 % High 11.6-14.6 [facility] Comment on above: Performed By: #### L 500.4050, L100.0100, L501.5200 ####[facility] [address] [place], [address] Hematocrit (Bld) [Volume fraction] 29.9 % Low 40-54 [facility] Comment on above: Performed By: #### L 500.4050, L100.0100, L501.5200 ####[facility] [address] [place], [address] Hemoglobin (Bld) [Mass/Vol] 10.6 g/dL Low 13.0-16.5 [facility] Comment on above: Performed By: #### L 500.4050, L100.0100, L501.5200 ####[facility] [address] [place], [address] IG% 0.300 Normal 0.0-0.9 [facility] Comment on above: Result Comment: IG% - Immature Granulocytes (promyelocytes, myelocytes andmetamyelocytes) > 1% indicates that a LEFT SHIFT is Present. Performed By: #### L 500.4050, L100.0100, L501.5200 ####[facility] [address] [place], [address] Lymphocytes/100 WBC (Bld) 12.4 % Low 19-41 [facility] Comment on above: Performed By: #### L 500.4050, L100.0100, L501.5200 ####[facility] [address] [place], [address] MCH (RBC) [Entitic mass] 33.2 pg High 27.0-32.0 [facility] Comment on above: Performed By: #### L 500.4050, L100.0100, L501.5200 ####[facility] [address] [place], [address] MCHC (RBC) [Mass/Vol] 35.5 g/dL Normal 32-36 [facility] Comment on above: Performed By: #### L 500.4050, L100.0100, L501.5200 ####[facility] [address] [place], [address] MCV (RBC) [Entitic vol] 93.7 fL Normal 80-94 [facility] Comment on above: Performed By: #### L 500.4050, L100.0100, L501.5200 ####[facility] [address] [place], [address] Monocytes/100 WBC (Bld) 19.5 % High 0-10 [facility] Comment on above: Performed By: #### L 500.4050, L100.0100, L501.5200 ####[facility] [address] [place], [address] Neutrophils/100 WBC (Bld) 62.6 % Normal 47-70 [facility] Comment on above: Performed By: #### L 500.4050, L100.0100, L501.5200 ####[facility] [address] [place], [address] Nucleated RBC (Bld) [#/Vol] 0 10*3/uL Normal 0-5 [facility] Comment on above: Performed By: #### L 500.4050, L100.0100, L501.5200 ####[facility] [address] [place], [address] Platelet mean volume (Bld) [Entitic vol] 8.6 fL Normal 6.2-12.0 [facility] Comment on above: Performed By: #### L 500.4050, L100.0100, L501.5200 ####[facility] [address] [place], [address] Platelets (Bld) [#/Vol] 102 10*3/uL Low 150-450 [facility] Comment on above: Performed By: #### L 500.4050, L100.0100, L501.5200 ####[facility] [address] [place], [address] RBC (Bld) [#/Vol] 3.19 10*6/uL Low 4.6-6.2 [facility] Comment on above: Performed By: #### L 500.4050, L100.0100, L501.5200 ####[facility] [address] [place], [address] RDW SD 57.3 fl High 35.1-43.9 [facility] Comment on above: Performed By: #### L 500.4050, L100.0100, L501.5200 ####[facility] [address] [place], [address] WBC (Bld) [#/Vol] 3.2 10*3/uL Low 4.4-11.0 [facility] Comment on above: Performed By: #### L 500.4050, L100.0100, L501.5200 ####[facility] [address] [place], [address] Comprehensive Metabolic Prof ilon 01-17-2025 Albumin [Mass/Vol] 3.4 g/dL Low 3.5-5.0 [facility] Comment on above: Performed By: #### L 500.4050, L100.0100, L501.5200 ####[facility] [address] [place], [address] Albumin/Globulin [Mass ratio] 1.0 {ratio} Normal 0.9-2.4 [facility] Comment on above: Performed By: #### L 500.4050, L100.0100, L501.5200 ####[facility] [address] [place], [address] ALK PHOS 109 U/L Normal 40-129 [facility] Comment on above: Performed By: #### L 500.4050, L100.0100, L501.5200 ####[facility] [address] [place], [address] ALT [Catalytic activity/Vol] 14 U/L Normal <=46 [facility] Comment on above: Performed By: #### L 500.4050, L100.0100, L501.5200 ####[facility] [address] [place], [address] AST [Catalytic activity/Vol] 24 U/L Normal <=37 [facility] Comment on above: Performed By: #### L 500.4050, L100.0100, L501.5200 ####[facility] [address] [place], [address] Bilirubin [Mass/Vol] 0.34 mg/dL Normal 0.00-1.30 [facility] Comment on above: Performed By: #### L 500.4050, L100.0100, L501.5200 ####[facility] [facility] [address] [place], [address] BUN/CRE 11.5 RATIO Normal 10-20 [facility] Comment on above: Performed By: #### L 500.4050, L100.0100, L501.5200 ####[facility] [address] [place], [address] Calcium [Mass/Vol] 9.4 mg/dL Normal 7.6-11.0 [facility] Comment on above: Performed By: #### L 500.4050, L100.0100, L501.5200 ####[facility] [address] [place], [address] Chloride [Moles/Vol] 108 mmol/L Normal 98-108 [facility] Comment on above: Performed By: #### L 500.4050, L100.0100, L501.5200 ####[facility] [address] [place], [address] CO2 [Moles/Vol] 21.5 mmol/L Normal 21.0-32.0 [facility] Comment on above: Performed By: #### L 500.4050, L100.0100, L501.5200 ####[facility] [address] [place], [address] Creatinine [Mass/Vol] 1.27 mg/dL High 0.70-1.20 [facility] Comment on above: Performed By: #### L 500.4050, L100.0100, L501.5200 ####[facility] [address] [place], [address] ECRCL 47.89 ml/min Low 50-250 [facility] Comment on above: Performed By: #### L 500.4050, L100.0100, L501.5200 ####[facility] [address] [place], [address] GAP 11 Normal 5-15 [facility] Comment on above: Performed By: #### L 500.4050, L100.0100, L501.5200 ####[facility] [address] [place], [address] GFR/1.73 sq M.predicted among non-blacks MDRD (S/P/Bld) [Vol rate/Area] 65 mL/min/{1.73_m2} Normal >60 [facility] Comment on above: Result Comment: mL/m in/1.73m2 CKD-EPI Creatinine Equation (2020) Performed By: #### L 500.4050, L100.0100, L501.5200 ####[facility] [address] [place], [address] Globulin (S) [Mass/Vol] 3.4 g/dL Normal 2.2-4.2 [facility] Comment on above: Performed By: #### L 500.4050, L100.0100, L501.5200 ####[facility] [address] [place], [address] Glucose [Mass/Vol] 101 mg/dL High 70-99 [facility] Comment on above: Performed By: #### L 500.4050, L100.0100, L501.5200 ####[facility] [address] [place], [address] Potassium [Moles/Vol] 3.3 mmol/L Normal 3.3-5.1 [facility] Comment on above: Performed By: #### L 500.4050, L100.0100, L501.5200 ####[facility] [address] [place], [address] Sodium [Moles/Vol] 140 mmol/L Normal 133-145 [facility] Comment on above: Performed By: #### L 500.4050, L100.0100, L501.5200 ####[facility] [address] [place], [address] T PROT 6.8 g/dL Normal 5.9-8.4 [facility] Comment on above: Performed By: #### L 500.4050, L100.0100, L501.5200 ####[facility] [address] [place], [address] Urea nitrogen [Mass/Vol] 15 mg/dL Normal 4-19 [facility] Comment on above: Performed By: #### L 500.4050, L100.0100, L501.5200 ####[facility] [address] [place], [address] Magnesiumon 01-17-2025 Magnesium [Mass/Vol] 2.2 mg/dL Normal 1.5-2.2 [facility] Comment on above: Performed By: #### L 500.4050, L100.0100, L501.5200 ####[facility] [address] [facility] [place], [address] Oncology Visit Reporton 12-20 Oncology Visit Report Normal [facility] Blood band neutrophil count as percentage of total leukocytesOrdered By: Guy Ho on 01-03-2025 Band form neutrophils/100 WBC (Bld) 2 % 0-5 [facility] Blood basophils/100 leukocyt esOrdered By: Guy Vic on 01-03-2025 Basophils/100 WBC (Bld) 1 % 0-1 [facility] Blood eosinophils/100 leukoc ytesOrdered By: Guy Ho on 01-03-2025 Eosinophils/100 WBC (Bld) 8 % High 0-5 [facility] Blood lymphocytes/100 leukoc ytesOrdered By: Guy Ho on 01-03-2025 Lymphocytes/100 WBC (Bld) 7 % Low 19-41 [facility] Blood monocytes/100 leukocyt esOrdered By: Guy Ho on 01-03-2025 Monocytes/100 WBC (Bld) 20 % High 0-10 [facility] Blood promyelocytes/100 leuk ocytesOrdered By: Guy Ho on 01-03-2025 Promyelocytes/100 WBC (Bld) 2 % High 0-0 [facility] Blood segmented neutrophils/ 100 leukocytesOrdered By: Guy Ho on 01-03-2025 Segmented neutrophils/100 WBC (Bld) 58 % 47-70 [facility] CBC W/Diff, Automatedon 12-18 Absolute Lymph 0.30 X10 3/uL Low 0.83-4.51 [facility] Comment on above: Performed By: #### L 501.5200, L100.0100, L500.4050 ####[facility] [address] [place], [address] PATH REV May foll Normal [facility] Comment on above: Performed By: #### L 501.5200, L100.0100, L500.4050 ####[facility] [address] [place], [address] Absolute Neut 2.4 X10 3/uL Normal 2.0-7.7 [facility] Comment on above: Performed By: #### L 501.5200, L100.0100, L500.4050 ####[facility] [address] [place], [address] Chest PA and Lateralon 01-03 Chest PA and Lateral Normal [facility] Comprehensive Metabolic Prof ilon 01-03-2025 BUN/CRE 9.5 RATIO Low 10-20 [facility] Comment on above: Performed By: #### L 501.5200, L100.0100, L500.4050 ####[facility] [address] [place], [address] Urea nitrogen [Mass/Vol] 12 mg/dL Normal 4-19 [facility] Comment on above: Performed By: #### L 501.5200, L100.0100, L500.4050 ####[facility] [address] [place], [address] Erythrocyte morphology asses smentOrdered By: Guy Ho on 01-03-2025 RBC morphology finding Nom (Bld) NORM C+C NORMAL NORM C&C [facility] LDHon 01-03-2025 LDH 120 U/L Normal 87-241 [facility] Comment on above: Order Comment: 1 Performed By: #### L 504.2610 ####[facility] [address] [place], [address] Lactate dehydrogenase (LDH) measurementOrdered By: Rangel Connor on 01-03-2025 LDH [Catalytic activity/Vol] 120 U/L 87-241 [facility] Magnesiumon 01-03-2025 Magnesium [Mass/Vol] 2.2 mg/dL Normal 1.5-2.2 [facility] Comment on above: Performed By: #### L 501.5200, L100.0100, L500.4050 ####[facility] [address] [place], [address] Myelocyte %Ordered By: Mathew Ho on 01-03-2025 Myelocytes/100 WBC (Bld) 1 % High 0-0 [facility] Oncology Visit Reporton 12-18 Oncology Visit Report Normal [facility] Platelet estimateOrdered By: Guy Ho on 01-03-2025 Platelets LM Ql (Bld) ADEQUATE ADEQ [facility] Review by pathologistOrdered By: Guy Ho on 01-03-2025 Pathologist review Leonard (Unsp spec) [Interp] May foll [facility] Total cell countOrdered By: Guy Ho on 01-03-2025 Cells counted Molgen (Bld/Tiss) [#] 100 MANUAL DIFF [facility] Urine Cultureon 01-01-2025 URC Normal [facility] Comment on above: Performed By: #### M 100.2200 ####[facility] [address] [place], [address] Basic Metabolic Profile (BMP )on 12-28-2024 BUN/CRE 13.7 RATIO Normal 10-20 [facility] Comment on above: Performed By: #### L 500.2500, L501.5200 ####[facility] [address] [place], [address] Calcium [Mass/Vol] 9.6 mg/dL Normal 7.6-11.0 [facility] Comment on above: Performed By: #### L 500.2500, L501.5200 ####[facility] [address] [place], [address] Chloride [Moles/Vol] 101 mmol/L Normal 98-108 [facility] Comment on above: Performed By: #### L 500.2500, L501.5200 ####[facility] [address] [place], [address] CO2 [Moles/Vol] 24.6 mmol/L Normal 21.0-32.0 [facility] Comment on above: Performed By: #### L 500.2500, L501.5200 ####[facility] [address] [place], [address] Creatinine [Mass/Vol] 1.52 mg/dL High 0.70-1.20 [facility] Comment on above: Performed By: #### L 500.2500, L501.5200 ####[facility] [address] [place], [address] ECRCL 38.91 ml/min Low 50-250 [facility] Comment on above: Performed By: #### L 500.2500, L501.5200 ####[facility] [address] [place], [address] GAP 12 Normal 5-15 [facility] Comment on above: Performed By: #### L 500.2500, L501.5200 ####[facility] [address] [place], [address] GFR/1.73 sq M.predicted among non-blacks MDRD (S/P/Bld) [Vol rate/Area] 53 mL/min/{1.73_m2} Low >60 [facility] Comment on above: Result Comment: mL/m in/1.73m2 CKD-EPI Creatinine Equation (2020) Performed By: #### L 500.2500, L501.5200 ####[facility] [address] [place], [address] Glucose [Mass/Vol] 103 mg/dL High 70-99 [facility] Comment on above: Performed By: #### L 500.2500, L501.5200 ####[facility] [address] [place], [address] Potassium [Moles/Vol] 3.1 mmol/L Low 3.3-5.1 [facility] Comment on above: Performed By: #### L 500.2500, L501.5200 ####[facility] [address] [place], [address] Sodium [Moles/Vol] 137 mmol/L Normal 133-145 [facility] Comment on above: Performed By: #### L 500.2500, L501.5200 ####[facility] [address] [place], [address] Urea nitrogen [Mass/Vol] 21 mg/dL High 4-19 [facility] Comment on above: Performed By: #### L 500.2500, L501.5200 ####[facility] [address] [place], [address] Magnesiumon 12-28-2024 Magnesium [Mass/Vol] 2.0 mg/dL Normal 1.5-2.2 [facility] Comment on above: Performed By: #### L 500.2500, L501.5200 ####[facility] [address] [place], [address] Oncology Visit Reporton 12-18 Oncology Visit Report Normal [facility] Urinalysis, Completeon 12-28 BACTERIA 3+ /hpf Normal None Seen [facility] Comment on above: Order Comment: COLLE CTOR TO SPECIFY Performed By: #### L 400.0001 ####[facility] [address] [place], [address] EPI,SQUAMOUS 0-5 SEEN Normal 0-5 [facility] Comment on above: Order Comment: COLLE CTOR TO SPECIFY Performed By: #### L 400.0001 ####[facility] [address] [place], [address] RBC 5-10 SEEN Normal 0-5 [facility] Comment on above: Order Comment: COLLE CTOR TO SPECIFY Performed By: #### L 400.0001 ####[facility] [address] [place], [address] WBC >100 SEEN Normal 0-5 [facility] Comment on above: Order Comment: COLLE CTOR TO SPECIFY Result Comment: Micr oscopic field is filled. Other elements may beobscured. Performed By: #### L 400.0001 ####[facility] [address] [place], [address] Mucus Ql (Urine sed) 0 SEEN Normal [facility] Comment on above: Order Comment: COLLE CTOR TO SPECIFY Performed By: #### L 400.0001 ####[facility] [address] [place], [address] Urine cultureOrdered By: Duy Mercedes on 12-28-2024 Bacteria identified Cx Nom (U) Presumptive E. coli Abnormal [facility] Bacteria identified Cx Nom (U) Proteus hauseri Abnormal [facility] CBC W/Diff, Automatedon 03-0 Absolute Lymph 0.28 X10 3/uL Low 0.83-4.51 [facility] Comment on above: Performed By: #### L 100.0100, L501.5200, L500.4050 ####[facility] [address] [place], [address] Absolute Neut 6.3 X10 3/uL Normal 2.0-7.7 [facility] Comment on above: Performed By: #### L 100.0100, L501.5200, L500.4050 ####[facility] [address] [place], [address] Basophils/100 WBC (Bld) 0.7 % Normal 0-1 [facility] Comment on above: Performed By: #### L 100.0100, L501.5200, L500.4050 ####[facility] [address] [place], [address] Eosinophils/100 WBC (Bld) 0.5 % Normal 0-5 [facility] Comment on above: Performed By: #### L 100.0100, L501.5200, L500.4050 ####[facility] [address] [place], [address] Erythrocyte distribution width (RBC) [Ratio] 17.8 % High 11.6-14.6 [facility] Comment on above: Performed By: #### L 100.0100, L501.5200, L500.4050 ####[facility] [address] [place], [address] Hematocrit (Bld) [Volume fraction] 35.7 % Low 40-54 [facility] Comment on above: Performed By: #### L 100.0100, L501.5200, L500.4050 ####[facility] [address] [place], [address] Hemoglobin (Bld) [Mass/Vol] 12.4 g/dL Low 13.0-16.5 [facility] Comment on above: Performed By: #### L 100.0100, L501.5200, L500.4050 ####[facility] [address] [place], [address] IG% 0.800 Normal 0.0-0.9 [facility] Comment on above: Result Comment: IG% - Immature Granulocytes (promyelocytes, myelocytes andmetamyelocytes) > 1% indicates that a LEFT SHIFT is Present. Performed By: #### L 100.0100, L501.5200, L500.4050 ####[facility] [address] [place], [address] Lymphocytes/100 WBC (Bld) 3.8 % Low 19-41 [facility] Comment on above: Performed By: #### L 100.0100, L501.5200, L500.4050 ####[facility] [address] [place], [address] MCH (RBC) [Entitic mass] 32.0 pg Normal 27.0-32.0 [facility] Comment on above: Performed By: #### L 100.0100, L501.5200, L500.4050 ####[facility] [address] [place], [address] MCHC (RBC) [Mass/Vol] 34.7 g/dL Normal 32-36 [facility] Comment on above: Performed By: #### L 100.0100, L501.5200, L500.4050 ####[facility] [address] [place], [address] MCV (RBC) [Entitic vol] 92.0 fL Normal 80-94 [facility] Comment on above: Performed By: #### L 100.0100, L501.5200, L500.4050 ####[facility] [address] [place], [address] Monocytes/100 WBC (Bld) 9.2 % Normal 0-10 [facility] Comment on above: Performed By: #### L 100.0100, L501.5200, L500.4050 ####[facility] [address] [place], [address] Neutrophils/100 WBC (Bld) 85.0 % High 47-70 [facility] Comment on above: Performed By: #### L 100.0100, L501.5200, L500.4050 ####[facility] [address] [place], [address] Nucleated RBC (Bld) [#/Vol] 0 10*3/uL Normal 0-5 [facility] Comment on above: Performed By: #### L 100.0100, L501.5200, L500.4050 ####[facility] [address] [place], [address] Platelet mean volume (Bld) [Entitic vol] 8.7 fL Normal 6.2-12.0 [facility] Comment on above: Performed By: #### L 100.0100, L501.5200, L500.4050 ####[facility] [address] [place], [address] Platelets (Bld) [#/Vol] 149 10*3/uL Low 150-450 [facility] Comment on above: Performed By: #### L 100.0100, L501.5200, L500.4050 ####[facility] [address] [place], [address] RBC (Bld) [#/Vol] 3.88 10*6/uL Low 4.6-6.2 [facility] Comment on above: Performed By: #### L 100.0100, L501.5200, L500.4050 ####[facility] [address] [place], [address] RDW SD 59.2 fl High 35.1-43.9 [facility] Comment on above: Performed By: #### L 100.0100, L501.5200, L500.4050 ####[facility] [address] [place], [address] WBC (Bld) [#/Vol] 7.5 10*3/uL Normal 4.4-11.0 [facility] Comment on above: Performed By: #### L 100.0100, L501.5200, L500.4050 ####[facility] [address] [place], [address] Chloride measurementOrdered By: Guy Ho on 12-20-2024 Chloride [Moles/Vol] 104 mmol/L 96-108 [facility] Comprehensive Metabolic Prof ilon 12-20-2024 Albumin [Mass/Vol] 3.7 g/dL Normal 3.5-5.0 [facility] Comment on above: Performed By: #### L 100.0100, L501.5200, L500.4050 ####[facility] [address] [place], [address] Albumin/Globulin [Mass ratio] 1.1 {ratio} Normal 0.9-2.4 [facility] Comment on above: Performed By: #### L 100.0100, L501.5200, L500.4050 ####[facility] [address] [place], [address] ALK PHOS 111 U/L Normal 40-129 [facility] Comment on above: Performed By: #### L 100.0100, L501.5200, L500.4050 ####[facility] [address] [place], [address] ALT [Catalytic activity/Vol] 18 U/L Normal <=46 [facility] Comment on above: Performed By: #### L 100.0100, L501.5200, L500.4050 ####[facility] [address] [place], [address] Anion gap [Moles/Vol] 10 mmol/L Normal 5-15 [facility] Comment on above: Performed By: #### L 100.0100, L501.5200, L500.4050 ####[facility] [address] [place], [address] AST [Catalytic activity/Vol] 24 U/L Normal <=37 [facility] Comment on above: Performed By: #### L 100.0100, L501.5200, L500.4050 ####[facility] [address] [place], [address] Bilirubin [Mass/Vol] 0.39 mg/dL Normal 0.00-1.30 [facility] Comment on above: Performed By: #### L 100.0100, L501.5200, L500.4050 ####[facility] [address] [place], [address] BUN/CRE 14.4 RATIO Normal 10-20 [facility] Comment on above: Performed By: #### L 100.0100, L501.5200, L500.4050 ####[facility] [address] [place], [address] Calcium [Mass/Vol] 9.3 mg/dL Normal 7.6-11.0 [facility] Comment on above: Performed By: #### L 100.0100, L501.5200, L500.4050 ####[facility] [address] [place], [address] Chloride [Moles/Vol] 104 mmol/L Normal 96-108 [facility] Comment on above: Performed By: #### L 100.0100, L501.5200, L500.4050 ####[facility] [address] [place], [address] CO2 [Moles/Vol] 25.2 mmol/L Normal 22.0-29.0 [facility] Comment on above: Performed By: #### L 100.0100, L501.5200, L500.4050 ####[facility] [address] [place], [address] Creatinine [Mass/Vol] 1.35 mg/dL High 0.70-1.20 [facility] Comment on above: Performed By: #### L 100.0100, L501.5200, L500.4050 ####[facility] [address] [place], [address] ECRCL 47.21 ml/min Low 50-250 [facility] Comment on above: Performed By: #### L 100.0100, L501.5200, L500.4050 ####[facility] [address] [place], [address] GFR/1.73 sq M.predicted among non-blacks MDRD (S/P/Bld) [Vol rate/Area] 61 mL/min/{1.73_m2} Normal >60 [facility] Comment on above: Result Comment: mL/m in/1.73m2 CKD-EPI Creatinine Equation (2020) Performed By: #### L 100.0100, L501.5200, L500.4050 ####[facility] [address] [place], [address] Globulin (S) [Mass/Vol] 3.4 g/dL Normal 2.2-4.2 [facility] Comment on above: Performed By: #### L 100.0100, L501.5200, L500.4050 ####[facility] [address] [place], [address] Glucose [Mass/Vol] 109 mg/dL High 70-99 [facility] Comment on above: Performed By: #### L 100.0100, L501.5200, L500.4050 ####[facility] [address] [place], [address] Potassium [Moles/Vol] 4.1 mmol/L Normal 3.3-5.1 [facility] Comment on above: Performed By: #### L 100.0100, L501.5200, L500.4050 ####[facility] [address] [place], [address] Sodium [Moles/Vol] 139 mmol/L Normal 133-145 [facility] Comment on above: Performed By: #### L 100.0100, L501.5200, L500.4050 ####[facility] [address] [place], [address] T PROT 7.2 g/dL Normal 5.9-8.4 [facility] Comment on above: Performed By: #### L 100.0100, L501.5200, L500.4050 ####[facility] [address] [place], [address] Urea nitrogen [Mass/Vol] 19 mg/dL Normal 4-19 [facility] Comment on above: Performed By: #### L 100.0100, L501.5200, L500.4050 ####[facility] [address] [place], [address] Magnesiumon 12-20-2024 Magnesium [Mass/Vol] 2.2 mg/dL Normal 1.5-2.2 [facility] Comment on above: Performed By: #### L 100.0100, L501.5200, L500.4050 ####[facility] [address] [place], [address] Oncology Visit Reporton 03-0 Oncology Visit Report Normal [facility] CBC W/Diff, Automatedon - Absolute Lymph 0.53 X10 3/uL Low 0.83-4.51 [facility] Comment on above: Performed By: #### L 501.5200, L500.4050, L100.0100 ####[facility] [address] [place], [address] Absolute Neut 4.3 X10 3/uL Normal 2.0-7.7 [facility] Comment on above: Performed By: #### L 501.5200, L500.4050, L100.0100 ####[facility] [address] [place], [address] Basophils/100 WBC (Bld) 1.2 % High 0-1 [facility] Comment on above: Performed By: #### L 501.5200, L500.4050, L100.0100 ####[facility] [address] [place], [address] Eosinophils/100 WBC (Bld) 3.3 % Normal 0-5 [facility] Comment on above: Performed By: #### L 501.5200, L500.4050, L100.0100 ####[facility] [address] [place], [address] Erythrocyte distribution width (RBC) [Ratio] 17.5 % High 11.6-14.6 [facility] Comment on above: Performed By: #### L 501.5200, L500.4050, L100.0100 ####[facility] [address] [place], [address] Hematocrit (Bld) [Volume fraction] 33.6 % Low 40-54 [facility] Comment on above: Performed By: #### L 501.5200, L500.4050, L100.0100 ####[facility] [address] [place], [address] Hemoglobin (Bld) [Mass/Vol] 11.5 g/dL Low 13.0-16.5 [facility] Comment on above: Performed By: #### L 501.5200, L500.4050, L100.0100 ####[facility] [address] [place], [address] IG% 0.500 Normal 0.0-0.9 [facility] Comment on above: Result Comment: IG% - Immature Granulocytes (promyelocytes, myelocytes andmetamyelocytes) > 1% indicates that a LEFT SHIFT is Present. Performed By: #### L 501.5200, L500.4050, L100.0100 ####[facility] [address] [place], [address] Lymphocytes/100 WBC (Bld) 8.8 % Low 19-41 [facility] Comment on above: Performed By: #### L 501.5200, L500.4050, L100.0100 ####[facility] [address] [place], [address] MCH (RBC) [Entitic mass] 31.5 pg Normal 27.0-32.0 [facility] Comment on above: Performed By: #### L 501.5200, L500.4050, L100.0100 ####[facility] [address] [place], [address] MCHC (RBC) [Mass/Vol] 34.2 g/dL Normal 32-36 [facility] Comment on above: Performed By: #### L 501.5200, L500.4050, L100.0100 ####[facility] [address] [place], [address] MCV (RBC) [Entitic vol] 92.1 fL Normal 80-94 [facility] Comment on above: Performed By: #### L 501.5200, L500.4050, L100.0100 ####[facility] [address] [place], [address] Monocytes/100 WBC (Bld) 14.8 % High 0-10 [facility] Comment on above: Performed By: #### L 501.5200, L500.4050, L100.0100 ####[facility] [address] [place], [address] Neutrophils/100 WBC (Bld) 71.4 % High 47-70 [facility] Comment on above: Performed By: #### L 501.5200, L500.4050, L100.0100 ####[facility] [address] [place], [address] Nucleated RBC (Bld) [#/Vol] 0 10*3/uL Normal 0-5 [facility] Comment on above: Performed By: #### L 501.5200, L500.4050, L100.0100 ####[facility] [address] [place], [address] Platelet mean volume (Bld) [Entitic vol] 8.7 fL Normal 6.2-12.0 [facility] Comment on above: Performed By: #### L 501.5200, L500.4050, L100.0100 ####[facility] [address] [place], [address] Platelets (Bld) [#/Vol] 144 10*3/uL Low 150-450 [facility] Comment on above: Performed By: #### L 501.5200, L500.4050, L100.0100 ####[facility] [address] [place], [address] RBC (Bld) [#/Vol] 3.65 10*6/uL Low 4.6-6.2 [facility] Comment on above: Performed By: #### L 501.5200, L500.4050, L100.0100 ####[facility] [address] [place], [address] RDW SD 54.5 fl High 35.1-43.9 [facility] Comment on above: Performed By: #### L 501.5200, L500.4050, L100.0100 ####[facility] [address] [place], [address] WBC (Bld) [#/Vol] 6.0 10*3/uL Normal 4.4-11.0 [facility] Comment on above: Performed By: #### L 501.5200, L500.4050, L100.0100 ####[facility] [address] [place], [address] Comprehensive Metabolic Prof ilon 12-06-2024 Albumin [Mass/Vol] 2.9 g/dL Low 3.2-5.0 [facility] Comment on above: Performed By: #### L 501.5200, L500.4050, L100.0100 ####[facility] [address] [place], [address] Albumin/Globulin [Mass ratio] 0.7 {ratio} Low 0.9-2.4 [facility] Comment on above: Performed By: #### L 501.5200, L500.4050, L100.0100 ####[facility] [address] [place], [address] ALK P 101 U/L Normal 45-117 [facility] Comment on above: Performed By: #### L 501.5200, L500.4050, L100.0100 ####[facility] [address] [place], [address] ALT [Catalytic activity/Vol] 37 U/L Normal 16-61 [facility] Comment on above: Performed By: #### L 501.5200, L500.4050, L100.0100 ####[facility] [address] [place], [address] AST [Catalytic activity/Vol] 35 U/L Normal 15-37 [facility] Comment on above: Performed By: #### L 501.5200, L500.4050, L100.0100 ####[facility] [address] [place], [address] Bilirubin [Mass/Vol] 0.40 mg/dL Normal 0.20-1.00 [facility] Comment on above: Result Comment: For patients on eltrombopag therapy, use of Dimension [place] TBIL is not recommended. Performed By: #### L 501.5200, L500.4050, L100.0100 ####[facility] [address] [place], [address] BUN/CRE 15.1 RATIO Normal 10-20 [facility] Comment on above: Performed By: #### L 501.5200, L500.4050, L100.0100 ####[facility] [address] [place], [address] CA,Total 9.4 mg/dL Normal 8.5-10.1 [facility] Comment on above: Performed By: #### L 501.5200, L500.4050, L100.0100 ####[facility] [address] [place], [address] Chloride [Moles/Vol] 108 mmol/L High 98-107 [facility] Comment on above: Performed By: #### L 501.5200, L500.4050, L100.0100 ####[facility] [address] [place], [address] CO2 [Moles/Vol] 28.0 mmol/L Normal 21.0-32.0 [facility] Comment on above: Performed By: #### L 501.5200, L500.4050, L100.0100 ####[facility] [address] [place], [address] Creatinine [Mass/Vol] 1.39 mg/dL High 0.70-1.30 [facility] Comment on above: Result Comment: The validity of the calculated GFR GFRAA in patients over70 years has not been determined. Clinical correlation isessential. Performed By: #### L 501.5200, L500.4050, L100.0100 ####[facility] [address] [place], [address] ECRCL 44.71 ml/min Normal [facility] Comment on above: Performed By: #### L 501.5200, L500.4050, L100.0100 ####[facility] [address] [place], [address] EST GFR - AA 67 mL/min Normal >60 [facility] Comment on above: Result Comment: Afri can [place]an GFR Calc Performed By: #### L 501.5200, L500.4050, L100.0100 ####[facility] [address] [place], [address] GAP 7 Normal 5-15 [facility] Comment on above: Performed By: #### L 501.5200, L500.4050, L100.0100 ####[facility] [address] [place], [address] GFR/1.73 sq M.predicted among non-blacks MDRD (S/P/Bld) [Vol rate/Area] 56 mL/min/{1.73_m2} Low >60 [facility] Comment on above: Result Comment: Non- GFR Calc Performed By: #### L 501.5200, L500.4050, L100.0100 ####[facility] [address] [place], [address] Globulin (S) [Mass/Vol] 4.3 g/dL High 2.2-4.2 [facility] Comment on above: Performed By: #### L 501.5200, L500.4050, L100.0100 ####[facility] [address] [place], [address] Glucose [Mass/Vol] 83 mg/dL Normal 74-106 [facility] Comment on above: Performed By: #### L 501.5200, L500.4050, L100.0100 ####[facility] [address] [place], [address] Potassium [Moles/Vol] 3.4 mmol/L Low 3.5-5.1 [facility] Comment on above: Performed By: #### L 501.5200, L500.4050, L100.0100 ####[facility] [address] [place], [address] Sodium [Moles/Vol] 142 mmol/L Normal 136-145 [facility] Comment on above: Performed By: #### L 501.5200, L500.4050, L100.0100 ####[facility] [address] [place], [address] T PROT 7.2 g/dL Normal 6.4-8.2 [facility] Comment on above: Performed By: #### L 501.5200, L500.4050, L100.0100 ####[facility] [address] [place], [address] Urea nitrogen [Mass/Vol] 21 mg/dL High 7-18 [facility] Comment on above: Performed By: #### L 501.5200, L500.4050, L100.0100 ####[facility] [address] [place], [address] Magnesiumon 12-06-2024 Magnesium [Mass/Vol] 2.3 mg/dL Normal 1.6-2.6 [facility] Comment on above: Performed By: #### L 501.5200, L500.4050, L100.0100 ####[facility] [address] [place], [address] Oncology Visit Reporton 11-20 Oncology Visit Report Normal [facility] Urine Cultureon 11-24-2024 URC Normal [facility] Comment on above: Performed By: #### L 400.2010, M100.2200 ####[facility] [address] [place], [address] CBC W/Diff, Automatedon Absolute Lymph 0.48 X10 3/uL Low 0.83-4.51 [facility] Comment on above: Performed By: #### L 100.0100, L501.5200, L500.4050 ####[facility] [address] [place], [address] Absolute Neut 4.0 X10 3/uL Normal 2.0-7.7 [facility] Comment on above: Performed By: #### L 100.0100, L501.5200, L500.4050 ####[facility] [address] [place], [address] Basophils/100 WBC (Bld) 0.9 % Normal 0-1 [facility] Comment on above: Performed By: #### L 100.0100, L501.5200, L500.4050 ####[facility] [address] [place], [address] Eosinophils/100 WBC (Bld) 3.6 % Normal 0-5 [facility] Comment on above: Performed By: #### L 100.0100, L501.5200, L500.4050 ####[facility] [address] [place], [address] Erythrocyte distribution width (RBC) [Ratio] 16.2 % High 11.6-14.6 [facility] Comment on above: Performed By: #### L 100.0100, L501.5200, L500.4050 ####[facility] [address] [place], [address] Hematocrit (Bld) [Volume fraction] 32.9 % Low 40-54 [facility] Comment on above: Performed By: #### L 100.0100, L501.5200, L500.4050 ####[facility] [address] [place], [address] Hemoglobin (Bld) [Mass/Vol] 10.9 g/dL Low 13.0-16.5 [facility] Comment on above: Performed By: #### L 100.0100, L501.5200, L500.4050 ####[facility] [address] [place], [address] IG% 0.800 Normal 0.0-0.9 [facility] Comment on above: Result Comment: IG% - Immature Granulocytes (promyelocytes, myelocytes andmetamyelocytes) > 1% indicates that a LEFT SHIFT is Present. Performed By: #### L 100.0100, L501.5200, L500.4050 ####[facility] [address] [place], [address] Lymphocytes/100 WBC (Bld) 9.0 % Low 19-41 [facility] Comment on above: Performed By: #### L 100.0100, L501.5200, L500.4050 ####[facility] [address] [place], [address] MCH (RBC) [Entitic mass] 30.5 pg Normal 27.0-32.0 [facility] Comment on above: Performed By: #### L 100.0100, L501.5200, L500.4050 ####[facility] [address] [place], [address] MCHC (RBC) [Mass/Vol] 33.1 g/dL Normal 32-36 [facility] Comment on above: Performed By: #### L 100.0100, L501.5200, L500.4050 ####[facility] [address] [place], [address] MCV (RBC) [Entitic vol] 92.2 fL Normal 80-94 [facility] Comment on above: Performed By: #### L 100.0100, L501.5200, L500.4050 ####[facility] [address] [place], [address] Monocytes/100 WBC (Bld) 10.9 % High 0-10 [facility] Comment on above: Performed By: #### L 100.0100, L501.5200, L500.4050 ####[facility] [address] [place], [address] Neutrophils/100 WBC (Bld) 74.8 % High 47-70 [facility] Comment on above: Performed By: #### L 100.0100, L501.5200, L500.4050 ####[facility] [address] [place], [address] Nucleated RBC (Bld) [#/Vol] 0 10*3/uL Normal 0-5 [facility] Comment on above: Performed By: #### L 100.0100, L501.5200, L500.4050 ####[facility] [address] [place], [address] Platelet mean volume (Bld) [Entitic vol] 8.0 fL Normal 6.2-12.0 [facility] Comment on above: Performed By: #### L 100.0100, L501.5200, L500.4050 ####[facility] [address] [place], [address] Platelets (Bld) [#/Vol] 272 10*3/uL Normal 150-450 [facility] Comment on above: Performed By: #### L 100.0100, L501.5200, L500.4050 ####[facility] [address] [place], [address] RBC (Bld) [#/Vol] 3.57 10*6/uL Low 4.6-6.2 [facility] Comment on above: Performed By: #### L 100.0100, L501.5200, L500.4050 ####[facility] [address] [place], [address] RDW SD 54.3 fl High 35.1-43.9 [facility] Comment on above: Performed By: #### L 100.0100, L501.5200, L500.4050 ####[facility] [address] [place], [address] WBC (Bld) [#/Vol] 5.3 10*3/uL Normal 4.4-11.0 [facility] Comment on above: Performed By: #### L 100.0100, L501.5200, L500.4050 ####[facility] [address] [place], [address] Comprehensive Metabolic Prof nyon 11-22-2024 Albumin [Mass/Vol] 2.9 g/dL Low 3.2-5.0 [facility] Comment on above: Performed By: #### L 100.0100, L501.5200, L500.4050 ####[facility] [address] [place], [address] Albumin/Globulin [Mass ratio] 0.7 {ratio} Low 0.9-2.4 [facility] Comment on above: Performed By: #### L 100.0100, L501.5200, L500.4050 ####[facility] [address] [place], [address] ALK P 89 U/L Normal 45-117 [facility] Comment on above: Performed By: #### L 100.0100, L501.5200, L500.4050 ####[facility] [address] [place], [address] ALT [Catalytic activity/Vol] 17 U/L Normal 16-61 [facility] Comment on above: Performed By: #### L 100.0100, L501.5200, L500.4050 ####[facility] [address] [place], [address] AST [Catalytic activity/Vol] 12 U/L Low 15-37 [facility] Comment on above: Performed By: #### L 100.0100, L501.5200, L500.4050 ####[facility] [address] [place], [address] Bilirubin [Mass/Vol] 0.30 mg/dL Normal 0.20-1.00 [facility] Comment on above: Result Comment: For patients on eltrombopag therapy, use of Dimension [place] TBIL is not recommended. Performed By: #### L 100.0100, L501.5200, L500.4050 ####[facility] [address] [place], [address] BUN/CRE 14.3 RATIO Normal 10-20 [facility] Comment on above: Performed By: #### L 100.0100, L501.5200, L500.4050 ####[facility] [address] [place], [address] CA,Total 9.0 mg/dL Normal 8.5-10.1 [facility] Comment on above: Performed By: #### L 100.0100, L501.5200, L500.4050 ####[facility] [address] [place], [address] Chloride [Moles/Vol] 108 mmol/L High 98-107 [facility] Comment on above: Performed By: #### L 100.0100, L501.5200, L500.4050 ####[facility] [address] [place], [address] CO2 [Moles/Vol] 28.0 mmol/L Normal 21.0-32.0 [facility] Comment on above: Performed By: #### L 100.0100, L501.5200, L500.4050 ####[facility] [address] [place], [address] Creatinine [Mass/Vol] 1.61 mg/dL High 0.70-1.30 [facility] Comment on above: Result Comment: The validity of the calculated GFR GFRAA in patients over70 years has not been determined. Clinical correlation isessential. Performed By: #### L 100.0100, L501.5200, L500.4050 ####[facility] [address] [place], [address] ECRCL 38.64 ml/min Normal [facility] Comment on above: Performed By: #### L 100.0100, L501.5200, L500.4050 ####[facility] [address] [place], [address] EST GFR - AA 57 mL/min Low >60 [facility] Comment on above: Result Comment: Afri can [place] GFR Calc Performed By: #### L 100.0100, L501.5200, L500.4050 ####[facility] [address] [place], [address] GAP 4 Low 5-15 [facility] Comment on above: Performed By: #### L 100.0100, L501.5200, L500.4050 ####[facility] [address] [place], [address] GFR/1.73 sq M.predicted among non-blacks MDRD (S/P/Bld) [Vol rate/Area] 47 mL/min/{1.73_m2} Low >60 [facility] Comment on above: Result Comment: Non- GFR Calc Performed By: #### L 100.0100, L501.5200, L500.4050 ####[facility] [address] [place], [address] Globulin (S) [Mass/Vol] 4.3 g/dL High 2.2-4.2 [facility] Comment on above: Performed By: #### L 100.0100, L501.5200, L500.4050 ####[facility] [address] [place], [address] Glucose [Mass/Vol] 91 mg/dL Normal 74-106 [facility] Comment on above: Performed By: #### L 100.0100, L501.5200, L500.4050 ####[facility] [address] [place], [address] Potassium [Moles/Vol] 3.8 mmol/L Normal 3.5-5.1 [facility] Comment on above: Performed By: #### L 100.0100, L501.5200, L500.4050 ####[facility] [address] [place], [address] Sodium [Moles/Vol] 140 mmol/L Normal 136-145 [facility] Comment on above: Performed By: #### L 100.0100, L501.5200, L500.4050 ####[facility] [address] [place], [address] T PROT 7.2 g/dL Normal 6.4-8.2 [facility] Comment on above: Performed By: #### L 100.0100, L501.5200, L500.4050 ####[facility] [address] [place], [address] Urea nitrogen [Mass/Vol] 23 mg/dL High 7-18 [facility] Comment on above: Performed By: #### L 100.0100, L501.5200, L500.4050 ####[facility] [address] [place], [address] Magnesiumon 11-22-2024 Magnesium [Mass/Vol] 2.2 mg/dL Normal 1.6-2.6 [facility] Comment on above: Performed By: #### L 100.0100, L501.5200, L500.4050 ####[facility] [address] [place], [address] Oncology Visit Reporton Oncology Visit Report Normal [facility] Urinalysis, Routine (Dipstic k)on 11-22-2024 BILIRUBIN URINE Negative Normal Negative [facility] Comment on above: Order Comment: DERECK TER SPECIMEN Performed By: #### L 400.2010, ####[facility] [address] [place], [address] Clarity (U) Sl. Cloudy Normal Clear [facility] Comment on above: Order Comment: DERECK TER SPECIMEN Performed By: #### L 400.2010, ####[facility] [address] [place], [address] Color (U) Yellow Normal Yellow [facility] Comment on above: Order Comment: DERECK TER SPECIMEN Performed By: #### L 400.2010, ####[facility] [address] [place], [address] GLUCOSE, UR Normal Normal Normal [facility] Comment on above: Order Comment: DERECK TER SPECIMEN Performed By: #### L 400.2010, ####[facility] [address] [place], [address] KETONE UR Negative Normal Negative [facility] Comment on above: Order Comment: DERECK TER SPECIMEN Performed By: #### L 400.2010, ####[facility] [address] [place], [address] LEUK ESTERASE 500 /ul Abnormal Negative [facility] Comment on above: Order Comment: DERECK TER SPECIMEN Performed By: #### L 400.2010, ####[facility] [address] [place], [address] Nitrite Ql (U) Positive Abnormal Negative [facility] Comment on above: Order Comment: DERECK TER SPECIMEN Performed By: #### L 400.2010, ####[facility] [address] [place], [address] OCCULT BLOOD-UR 50 /ul Abnormal Negative [facility] Comment on above: Order Comment: DERECK TER SPECIMEN Performed By: #### L 400.2010, ####[facility] [address] [place], [address] pH UR 8.0 Normal 5.0 - 8.0 [facility] Comment on above: Order Comment: DERECK TER SPECIMEN Performed By: #### L 400.2010, ####[facility] [address] [place], [address] PROT DIPSTX 100 mg/dl Abnormal Negative [facility] Comment on above: Order Comment: DERECK TER SPECIMEN Performed By: #### L 400.2010, ####[facility] [address] [place], [address] SP.GR. DIPSTX 1.010 Normal 1.002-1.03 0 [facility] Comment on above: Order Comment: DERECK TER SPECIMEN Performed By: #### L 400.2010, ####[facility] [address] [place], [address] UROBILI Normal Normal Normal [facility] Comment on above: Order Comment: DERECK TER SPECIMEN Performed By: #### L 400.2010, ####[facility] [address] [place], [address] Urine cultureOrdered By: Duy Mercedes on 11-22-2024 Bacteria identified Cx Nom (U) Proteus hauseri Abnormal [facility] NEPHROSTOMY DRAIN CHANGEon 0 11-15-2024 NEPHROSTOMY DRAIN CHANGE EXAM: IR NEPHROSTOMY DRAIN CHANGE, 11/12/2024 13:08 PM CLINICAL INDICATIONS: 58-year-old man requiring placement of bilateral nephrostomy catheters due to hydronephrosis. Presents today for routine check/change of bilateral nephrostomy catheters. MEDICATIONS: 12:06 PM 11/12/24 fentaNYL (SUBLIMAZE) injection 0-300 mcg Ordered and Given 25 mcg Given Rate: 0 Route: Intravenous; 12:06 PM 11/12/24 midazolam (VERSED) injection 0-10 mg Ordered and Given 0.5 mg Given Rate: 0 Route: Intravenous; 12:12 PM 11/12/24 fentaNYL (SUBLIMAZE) injection 0-300 mcg Given 25 mcg Given Rate: 0 Route: Intravenous; 12:12 PM 11/12/24 midazolam (VERSED) injection 0-10 mg Given 0.5 mg Given Rate: 0 Route: Intravenous; 12:16 PM 11/12/24 midazolam (VERSED) injection 0-10 mg Given 0.5 mg Given Rate: 0 Route: Intravenous; 12:16 PM 11/12/24 fentaNYL (SUBLIMAZE) injection 0-300 mcg Given 25 mcg Given Rate: 0 Route: Intravenous; 12:20 PM 11/12/24 fentaNYL (SUBLIMAZE) injection 0-300 mcg Given 25 mcg Given Rate: 0 Route: Intravenous; 12:20 PM 11/12/24 midazolam (VERSED) injection 0-10 mg Given 0.5 mg Given Rate: 0 Route: Intravenous; 12:30 PM 11/12/24 fentaNYL (SUBLIMAZE) injection 0-300 mcg Given 25 mcg Given Rate: 0 Route: Intravenous; 12:30 PM 11/12/24 midazolam (VERSED) injection 0-10 mg Given 0.5 mg Given Rate: 0 Route: Intravenous; 12:37 PM 11/12/24 fentaNYL (SUBLIMAZE) injection 0-300 mcg Given 25 mcg Given Rate: 0 Route: Intravenous; 12:37 PM 11/12/24 midazolam (VERSED) injection 0-10 mg Given 0.5 mg Given Rate: 0 Route: Intravenous; 12:43 PM 11/12/24 Iohexol (OMNIPAQUE) 300 MG/ML vial 50 mL Given 20 mL Given Rate: 0 Route: Intravenous; 12:43 PM 11/12/24 Lidocaine (PF) 2 % injection Ordered and Given 8 mL Given Rate: 0 Route: Other; TOTAL FLUORO TIME: 6.9 minutes OPERATORS: Carmen Chambers M.D. (attending); David Hwang M.D. (resident) CONSENT: Following discussion of the risks, benefits and alternatives of the procedure, written informed consent was obtained. SEDATION: I performed Moderate Sedation which included the presence of a nurse that assisted in monitoring the patient's level of consciousness and physiologic status. After administration of sedative medication(s), I spent 52 minutes of continuous isrw-tv-ctti time with the patient. COMPARISON: CT dated May 20, 2024. Prior IR procedure imaging dated October 12, 2024 TIME OUT: Prior to the procedure a time out was performed in the presence of the patient and all personnel involved in this case. The patient identity, procedure type, procedure side/site, and allergies were verified. Intravenous antibiotics were administered before and during the procedure. TECHNIQUE: Position: The patient was transferred to the IR laboratory and was positioned prone on the procedural table. The bilateral indwelling nephrostomy catheters were prepped and draped using maximum sterile barrier technique. This consisted of cap, mask, hand hygiene, sterile gown and gloves, cutaneous antisepsis and occlusive sterile draping of the field. Procedure: Left nephrostomy After administration of local anesthesia, a small amount of contrast was injected and a nephrostogram was performed. The catheter was then removed over a wire and a new 10.2 Sudanese multipurpose catheter was inserted under fluoroscopic guidance. The locking pigtail was formed within the renal pelvis. Contrast was injected to confirm appropriate positioning. The catheter was sutured to the skin and attached to a gravity drainage bag. A sterile, occlusive dressing was placed on the skin surrounding the catheter. Right nephrostomy After administration of local anesthesia, a small amount of contrast was injected and a nephrostogram was performed. Glidewire was advanced through the catheter was able to be advanced into the renal pelvis. The catheter was then removed over a Glidewire after a sufficient length of wire was secured within the collecting system. A new 10.2 Sudanese multipurpose catheter was inserted under fluoroscopic guidance. The locking pigtail was formed within the renal pelvis. Contrast was injected to confirm appropriate positioning. The catheter was sutured to the skin and attached to a gravity drainage bag. A sterile, occlusive dressing was placed on the skin surrounding the catheter. FINDINGS: Initial left nephrostogram showing catheter pigtail within the renal pelvis. Final nephrostogram showing catheter pigtail within the renal pelvis. No hydronephrosis. Initial right nephrostogram showing near complete unraveling of catheter pigtail which was retracted into a peripheral calyx. There is severe right hydronephrosis. Final nephrostogram showing catheter pigtail within the renal pelvis. Severe hydronephrosis. IMPRESSION: 1. Successful exchange of bilateral 10.2-Sudanese multipurpose nephrostomy catheters. 2. Routine exchange in 8-10 weeks Carmen Chambers MD was in the room and participated during all (more content not included)... Normal [facility] ONC Echo Completeon 11-10-19 25 ONC Echo Complete Normal [facility] Carcinoembryonic Antigenon 0 11-09-2024 CEA 1.7 ng/mL Normal 0.0-4.7 [facility] Comment on above: Order Comment: PLEAS E ADD TO BLOOD IN THE LAB. THANK YOU!! Result Comment: Nons mokers <3.9 Smokers <5.6[employer] Electrochemiluminescence Immunoassay(ECLIA)Values obtained with different assay methods or kitscannot be used interchangeably. Results cannot beinterpreted as absolute evidence of the presence orabsence of malignant disease.Performed at: [place] [id number] Director: Javid Diehl PhD, Phone: [phone] Performed By: #### L 1406.7317 ####[facility] [address] [facility] [place], [address] CBC W/Diff, Automatedon 10-21 Absolute Lymph 0.40 X10 3/uL Low 0.83-4.51 [facility] Comment on above: Performed By: #### L 501.5200, L100.0100, L500.4050 ####[facility] [address] [place], [address] Absolute Neut 6.4 X10 3/uL Normal 2.0-7.7 [facility] Comment on above: Performed By: #### L 501.5200, L100.0100, L500.4050 ####[facility] [address] [place], [address] Basophils/100 WBC (Bld) 0.6 % Normal 0-1 [facility] Comment on above: Performed By: #### L 501.5200, L100.0100, L500.4050 ####[facility] [address] [place], [address] Eosinophils/100 WBC (Bld) 4.4 % Normal 0-5 [facility] Comment on above: Performed By: #### L 501.5200, L100.0100, L500.4050 ####[facility] [address] [place], [address] Erythrocyte distribution width (RBC) [Ratio] 16.9 % High 11.6-14.6 [facility] Comment on above: Performed By: #### L 501.5200, L100.0100, L500.4050 ####[facility] [address] [place], [address] Hematocrit (Bld) [Volume fraction] 32.5 % Low 40-54 [facility] Comment on above: Performed By: #### L 501.5200, L100.0100, L500.4050 ####[facility] [address] [place], [address] Hemoglobin (Bld) [Mass/Vol] 10.6 g/dL Low 13.0-16.5 [facility] Comment on above: Performed By: #### L 501.5200, L100.0100, L500.4050 ####[facility] [address] [place], [address] IG% 0.600 Normal 0.0-0.9 [facility] Comment on above: Result Comment: IG% - Immature Granulocytes (promyelocytes, myelocytes andmetamyelocytes) > 1% indicates that a LEFT SHIFT is Present. Performed By: #### L 501.5200, L100.0100, L500.4050 ####[facility] [address] [place], [address] Lymphocytes/100 WBC (Bld) 5.2 % Low 19-41 [facility] Comment on above: Performed By: #### L 501.5200, L100.0100, L500.4050 ####[facility] [address] [place], [address] MCH (RBC) [Entitic mass] 30.3 pg Normal 27.0-32.0 [facility] Comment on above: Performed By: #### L 501.5200, L100.0100, L500.4050 ####[facility] [address] [place], [address] MCHC (RBC) [Mass/Vol] 32.6 g/dL Normal 32-36 [facility] Comment on above: Performed By: #### L 501.5200, L100.0100, L500.4050 ####[facility] [address] [place], [address] MCV (RBC) [Entitic vol] 92.9 fL Normal 80-94 [facility] Comment on above: Performed By: #### L 501.5200, L100.0100, L500.4050 ####[facility] [address] [place], [address] Monocytes/100 WBC (Bld) 6.8 % Normal 0-10 [facility] Comment on above: Performed By: #### L 501.5200, L100.0100, L500.4050 ####[facility] [address] [place], [address] Neutrophils/100 WBC (Bld) 82.4 % High 47-70 [facility] Comment on above: Performed By: #### L 501.5200, L100.0100, L500.4050 ####[facility] [address] [place], [address] Nucleated RBC (Bld) [#/Vol] 0 10*3/uL Normal 0-5 [facility] Comment on above: Performed By: #### L 501.5200, L100.0100, L500.4050 ####[facility] [address] [place], [address] Platelet mean volume (Bld) [Entitic vol] 8.3 fL Normal 6.2-12.0 [facility] Comment on above: Performed By: #### L 501.5200, L100.0100, L500.4050 ####[facility] [address] [place], [address] Platelets (Bld) [#/Vol] 273 10*3/uL Normal 150-450 [facility] Comment on above: Performed By: #### L 501.5200, L100.0100, L500.4050 ####[facility] [address] [place], [address] RBC (Bld) [#/Vol] 3.50 10*6/uL Low 4.6-6.2 [facility] Comment on above: Performed By: #### L 501.5200, L100.0100, L500.4050 ####[facility] [address] [place], [address] RDW SD 57.6 fl High 35.1-43.9 [facility] Comment on above: Performed By: #### L 501.5200, L100.0100, L500.4050 ####[facility] [address] [place], [address] WBC (Bld) [#/Vol] 7.8 10*3/uL Normal 4.4-11.0 [facility] Comment on above: Performed By: #### L 501.5200, L100.0100, L500.4050 ####[facility] [address] [place], [address] Comprehensive Metabolic Prof ilon 11-08-2024 Albumin [Mass/Vol] 3.0 g/dL Low 3.2-5.0 [facility] Comment on above: Performed By: #### L 501.5200, L100.0100, L500.4050 ####[facility] [address] [place], [address] Albumin/Globulin [Mass ratio] 0.7 {ratio} Low 0.9-2.4 [facility] Comment on above: Performed By: #### L 501.5200, L100.0100, L500.4050 ####[facility] [address] [place], [address] ALK P 86 U/L Normal 45-117 [facility] Comment on above: Performed By: #### L 501.5200, L100.0100, L500.4050 ####[facility] [address] [place], [address] ALT [Catalytic activity/Vol] 13 U/L Low 16-61 [facility] Comment on above: Performed By: #### L 501.5200, L100.0100, L500.4050 ####[facility] [address] [place], [address] AST [Catalytic activity/Vol] 14 U/L Low 15-37 [facility] Comment on above: Performed By: #### L 501.5200, L100.0100, L500.4050 ####[facility] [address] [place], [address] Bilirubin [Mass/Vol] 0.40 mg/dL Normal 0.20-1.00 [facility] Comment on above: Result Comment: For patients on eltrombopag therapy, use of Dimension [place] TBIL is not recommended. Performed By: #### L 501.5200, L100.0100, L500.4050 ####[facility] [address] [place], [address] BUN/CRE 23.9 RATIO High 10-20 [facility] Comment on above: Performed By: #### L 501.5200, L100.0100, L500.4050 ####[facility] [address] [place], [address] CA,Total 9.6 mg/dL Normal 8.5-10.1 [facility] Comment on above: Performed By: #### L 501.5200, L100.0100, L500.4050 ####[facility] [address] [place], [address] Chloride [Moles/Vol] 106 mmol/L Normal 98-107 [facility] Comment on above: Performed By: #### L 501.5200, L100.0100, L500.4050 ####[facility] [address] [place], [address] CO2 [Moles/Vol] 30.0 mmol/L Normal 21.0-32.0 [facility] Comment on above: Performed By: #### L 501.5200, L100.0100, L500.4050 ####[facility] [address] [place], [address] Creatinine [Mass/Vol] 1.34 mg/dL High 0.70-1.30 [facility] Comment on above: Result Comment: The validity of the calculated GFR GFRAA in patients over70 years has not been determined. Clinical correlation isessential. Performed By: #### L 501.5200, L100.0100, L500.4050 ####[facility] [address] [place], [address] ECRCL 45.56 ml/min Normal [facility] Comment on above: Performed By: #### L 501.5200, L100.0100, L500.4050 ####[facility] [address] [place], [address] EST GFR - AA 70 mL/min Normal >60 [facility] Comment on above: Result Comment: Afri can Chilean GFR Calc Performed By: #### L 501.5200, L100.0100, L500.4050 ####[facility] [address] [place], [address] GAP 4 Low 5-15 [facility] Comment on above: Performed By: #### L 501.5200, L100.0100, L500.4050 ####[facility] [address] [place], [address] GFR/1.73 sq M.predicted among non-blacks MDRD (S/P/Bld) [Vol rate/Area] 58 mL/min/{1.73_m2} Low >60 [facility] Comment on above: Result Comment: Non- GFR Calc Performed By: #### L 501.5200, L100.0100, L500.4050 ####[facility] [address] [place], [address] Globulin (S) [Mass/Vol] 4.4 g/dL High 2.2-4.2 [facility] Comment on above: Performed By: #### L 501.5200, L100.0100, L500.4050 ####[facility] [address] [place], [address] Glucose [Mass/Vol] 96 mg/dL Normal 74-106 [facility] Comment on above: Performed By: #### L 501.5200, L100.0100, L500.4050 ####[facility] [address] [place], [address] Potassium [Moles/Vol] 3.4 mmol/L Low 3.5-5.1 [facility] Comment on above: Performed By: #### L 501.5200, L100.0100, L500.4050 ####[facility] [address] [place], [address] Sodium [Moles/Vol] 140 mmol/L Normal 136-145 [facility] Comment on above: Performed By: #### L 501.5200, L100.0100, L500.4050 ####[facility] [address] [place], [address] T PROT 7.4 g/dL Normal 6.4-8.2 [facility] Comment on above: Performed By: #### L 501.5200, L100.0100, L500.4050 ####[facility] [address] [place], [address] Urea nitrogen [Mass/Vol] 32 mg/dL High 7-18 [facility] Comment on above: Performed By: #### L 501.5200, L100.0100, L500.4050 ####[facility] [address] [place], [address] Magnesiumon 11-08-2024 Magnesium [Mass/Vol] 2.1 mg/dL Normal 1.6-2.6 [facility] Comment on above: Performed By: #### L 501.5200, L100.0100, L500.4050 ####[facility] [address] [place], [address] Oncology Visit Reporton 10-21 Oncology Visit Report Normal [facility] Serum or plasma thyroid stim ulating hormone (TSH) measurement (units/volume)Ordered By: Enrique Romero on 11-08-2024 TSH Qn 2.080 uIU/mL 0.358-3.74 0 [facility] Thyroid Stim Hormone (TSH)on 11-08-2024 TSH 2.080 uIU/mL Normal 0.358-3.74 0 [facility] Comment on above: Performed By: #### L 501.9520 ####[facility] [address] [place], [address] Cardiology Visit Reporton Cardiology Visit Report Normal [facility] CBC W/Diff, Automatedon 10-20 Absolute Lymph 0.49 X10 3/uL Low 0.83-4.51 [facility] Comment on above: Performed By: #### L 100.0100, L501.5200, L500.4050 ####[facility] [address] [place], [address] Absolute Neut 4.5 X10 3/uL Normal 2.0-7.7 [facility] Comment on above: Performed By: #### L 100.0100, L501.5200, L500.4050 ####[facility] [address] [place], [address] Basophils/100 WBC (Bld) 1.4 % High 0-1 [facility] Comment on above: Performed By: #### L 100.0100, L501.5200, L500.4050 ####[facility] [address] [place], [address] Eosinophils/100 WBC (Bld) 4.1 % Normal 0-5 [facility] Comment on above: Performed By: #### L 100.0100, L501.5200, L500.4050 ####[facility] [address] [place], [address] Erythrocyte distribution width (RBC) [Ratio] 17.3 % High 11.6-14.6 [facility] Comment on above: Performed By: #### L 100.0100, L501.5200, L500.4050 ####[facility] [address] [place], [address] Hematocrit (Bld) [Volume fraction] 32.3 % Low 40-54 [facility] Comment on above: Performed By: #### L 100.0100, L501.5200, L500.4050 ####[facility] [address] [place], [address] Hemoglobin (Bld) [Mass/Vol] 10.5 g/dL Low 13.0-16.5 [facility] Comment on above: Performed By: #### L 100.0100, L501.5200, L500.4050 ####[facility] [address] [place], [address] IG% 0.900 Normal 0.0-0.9 [facility] Comment on above: Result Comment: IG% - Immature Granulocytes (promyelocytes, myelocytes andmetamyelocytes) > 1% indicates that a LEFT SHIFT is Present. Performed By: #### L 100.0100, L501.5200, L500.4050 ####[facility] [address] [place], [address] Lymphocytes/100 WBC (Bld) 8.4 % Low 19-41 [facility] Comment on above: Performed By: #### L 100.0100, L501.5200, L500.4050 ####[facility] [address] [place], [address] MCH (RBC) [Entitic mass] 30.2 pg Normal 27.0-32.0 [facility] Comment on above: Performed By: #### L 100.0100, L501.5200, L500.4050 ####[facility] [address] [place], [address] MCHC (RBC) [Mass/Vol] 32.5 g/dL Normal 32-36 [facility] Comment on above: Performed By: #### L 100.0100, L501.5200, L500.4050 ####[facility] [address] [place], [address] MCV (RBC) [Entitic vol] 92.8 fL Normal 80-94 [facility] Comment on above: Performed By: #### L 100.0100, L501.5200, L500.4050 ####[facility] [address] [place], [address] Monocytes/100 WBC (Bld) 8.4 % Normal 0-10 [facility] Comment on above: Performed By: #### L 100.0100, L501.5200, L500.4050 ####[facility] [address] [place], [address] Neutrophils/100 WBC (Bld) 76.8 % High 47-70 [facility] Comment on above: Performed By: #### L 100.0100, L501.5200, L500.4050 ####[facility] [address] [place], [address] Nucleated RBC (Bld) [#/Vol] 0 10*3/uL Normal 0-5 [facility] Comment on above: Performed By: #### L 100.0100, L501.5200, L500.4050 ####[facility] [address] [place], [address] Platelet mean volume (Bld) [Entitic vol] 8.2 fL Normal 6.2-12.0 [facility] Comment on above: Performed By: #### L 100.0100, L501.5200, L500.4050 ####[facility] [address] [place], [address] Platelets (Bld) [#/Vol] 297 10*3/uL Normal 150-450 [facility] Comment on above: Performed By: #### L 100.0100, L501.5200, L500.4050 ####[facility] [address] [place], [address] RBC (Bld) [#/Vol] 3.48 10*6/uL Low 4.6-6.2 [facility] Comment on above: Performed By: #### L 100.0100, L501.5200, L500.4050 ####[facility] [address] [place], [address] RDW SD 58.8 fl High 35.1-43.9 [facility] Comment on above: Performed By: #### L 100.0100, L501.5200, L500.4050 ####[facility] [address] [place], [address] WBC (Bld) [#/Vol] 5.9 10*3/uL Normal 4.4-11.0 [facility] Comment on above: Performed By: #### L 100.0100, L501.5200, L500.4050 ####[facility] [address] [place], [address] Comprehensive Metabolic Prof ilon 11-03-2024 Albumin [Mass/Vol] 3.1 g/dL Low 3.2-5.0 [facility] Comment on above: Performed By: #### L 100.0100, L501.5200, L500.4050 ####[facility] [address] [place], [address] Albumin/Globulin [Mass ratio] 0.7 {ratio} Low 0.9-2.4 [facility] Comment on above: Performed By: #### L 100.0100, L501.5200, L500.4050 ####[facility] [address] [place], [address] ALK P 91 U/L Normal 45-117 [facility] Comment on above: Performed By: #### L 100.0100, L501.5200, L500.4050 ####[facility] [address] [place], [address] ALT [Catalytic activity/Vol] 15 U/L Low 16-61 [facility] Comment on above: Performed By: #### L 100.0100, L501.5200, L500.4050 ####[facility] [address] [place], [address] AST [Catalytic activity/Vol] 12 U/L Low 15-37 [facility] Comment on above: Performed By: #### L 100.0100, L501.5200, L500.4050 ####[facility] [address] [place], [address] Bilirubin [Mass/Vol] 0.30 mg/dL Normal 0.20-1.00 [facility] Comment on above: Result Comment: For patients on eltrombopag therapy, use of Dimension [place] TBIL is not recommended. Performed By: #### L 100.0100, L501.5200, L500.4050 ####[facility] [address] [place], [address] BUN/CRE 26.4 RATIO High 10-20 [facility] Comment on above: Performed By: #### L 100.0100, L501.5200, L500.4050 ####[facility] [address] [place], [address] CA,Total 9.5 mg/dL Normal 8.5-10.1 [facility] Comment on above: Performed By: #### L 100.0100, L501.5200, L500.4050 ####[facility] [address] [place], [address] Chloride [Moles/Vol] 106 mmol/L Normal 98-107 [facility] Comment on above: Performed By: #### L 100.0100, L501.5200, L500.4050 ####[facility] [address] [place], [address] CO2 [Moles/Vol] 29.0 mmol/L Normal 21.0-32.0 [facility] Comment on above: Performed By: #### L 100.0100, L501.5200, L500.4050 ####[facility] [address] [place], [address] Creatinine [Mass/Vol] 1.44 mg/dL High 0.70-1.30 [facility] Comment on above: Result Comment: The validity of the calculated GFR GFRAA in patients over70 years has not been determined. Clinical correlation isessential. Performed By: #### L 100.0100, L501.5200, L500.4050 ####[facility] [address] [place], [address] ECRCL 42.40 ml/min Normal [facility] Comment on above: Performed By: #### L 100.0100, L501.5200, L500.4050 ####[facility] [address] [place], [address] EST GFR - AA 65 mL/min Normal >60 [facility] Comment on above: Result Comment: Afri can [place] GFR Calc Performed By: #### L 100.0100, L501.5200, L500.4050 ####[facility] [address] [place], [address] GAP 5 Normal 5-15 [facility] Comment on above: Performed By: #### L 100.0100, L501.5200, L500.4050 ####[facility] [address] [place], [address] GFR/1.73 sq M.predicted among non-blacks MDRD (S/P/Bld) [Vol rate/Area] 53 mL/min/{1.73_m2} Low >60 [facility] Comment on above: Result Comment: Non- GFR Calc Performed By: #### L 100.0100, L501.5200, L500.4050 ####[facility] [address] [place], [address] Globulin (S) [Mass/Vol] 4.6 g/dL High 2.2-4.2 [facility] Comment on above: Performed By: #### L 100.0100, L501.5200, L500.4050 ####[facility] [address] [place], [address] Glucose [Mass/Vol] 104 mg/dL Normal 74-106 [facility] Comment on above: Result Comment: Fast ing Glucose result from 100 to 125 mg/dLsuggests IMPAIRED HOMEOSTASIS per A.D.A. criteria. Performed By: #### L 100.0100, L501.5200, L500.4050 ####[facility] [address] [place], [address] Potassium [Moles/Vol] 3.9 mmol/L Normal 3.5-5.1 [facility] Comment on above: Performed By: #### L 100.0100, L501.5200, L500.4050 ####[facility] [address] [place], [address] Sodium [Moles/Vol] 140 mmol/L Normal 136-145 [facility] Comment on above: Performed By: #### L 100.0100, L501.5200, L500.4050 ####[facility] [address] [place], [address] T PROT 7.7 g/dL Normal 6.4-8.2 [facility] Comment on above: Performed By: #### L 100.0100, L501.5200, L500.4050 ####[facility] [address] [place], [address] Urea nitrogen [Mass/Vol] 38 mg/dL High 7-18 [facility] Comment on above: Performed By: #### L 100.0100, L501.5200, L500.4050 ####[facility] [address] [place], [address] Magnesiumon 11-03-2024 Magnesium [Mass/Vol] 2.1 mg/dL Normal 1.6-2.6 [facility] Comment on above: Performed By: #### L 100.0100, L501.5200, L500.4050 ####[facility] [address] [place], [address] Oncology Visit Reporton 10-20 Oncology Visit Report Normal [facility] CBC,PLATELETSon 10-18-2024 Erythrocyte distribution width (RBC) [Ratio] 18.0 % High 10.9 - 14.3 % [place] Hematocrit (Bld) [Volume fraction] 24.1 % Low 39.6 - 48.8 % [place] Hemoglobin (Bld) [Mass/Vol] 7.8 g/dL Low 13.4 - 16.8 g/dL [place] Interpretation and review of laboratory results Abnormal [place] MCH (RBC) [Entitic mass] 29.0 pg 26.1 - 33.3 pg [place] MCHC (RBC) [Mass/Vol] 32.4 g/dL 31.9 - 36.5 g/dL [place] MCV (RBC) [Entitic vol] 89.6 fL 79.0 - 94.5 fL [place] Platelet mean volume (Bld) [Entitic vol] 9.0 fL 8.7 - 12.3 fL [place] Platelets (Bld) [#/Vol] 340 10*3/uL High 146 - 337 K/uL [place] RBC (Bld) [#/Vol] 2.69 10*6/uL Low [facility] WBC (Bld) [#/Vol] 14.13 10*3/uL High 3.73 - 10.10 K/uL [facility] Hematocrit (Bld) [Volume fraction] 24.1 % Low 39.6-48.8 [facility] Comment on above: Performed By: #### S URGP #### [place] (DEFAULT) [address] [place] [address] Hemoglobin (Bld) [Mass/Vol] 7.8 g/dL Low 13.4-16.8 [facility] Comment on above: Performed By: #### S URGP #### [place] (DEFAULT) [address] [place] [address] MCV (RBC) [Entitic vol] 89.6 fL Normal 79.0-94.5 [facility] Comment on above: Performed By: #### S URGP #### [place] (DEFAULT) [address] [place] [address] 279[address] Mean Cell Hgb 29.0 pg Normal 26.1-33.3 [facility] Comment on above: Performed By: #### S URGP #### [place] (DEFAULT) [address] [place] [address] 23048 Mean Cell Hgb Conc 32.4 g/dL Normal 31.9-36.5 [facility] Comment on above: Performed By: #### S URGP #### [place] (DEFAULT) [address] [place] [address]648 Platelet mean volume (Bld) [Entitic vol] 9.0 fL Normal 8.7-12.3 [facility] Comment on above: Performed By: #### S URGP #### [place] (DEFAULT) [address] [place] [address]121 Platelets (Bld) [#/Vol] 340 10*3/uL High 146-337 [facility] Comment on above: Performed By: #### S URGP #### [place] (DEFAULT) [address] [place] [address]687 RBC (Bld) [#/Vol] 2.69 10*6/uL Low 4.38-5.83 [facility] Comment on above: Performed By: #### S URGP #### [place] (DEFAULT) [address] [place] [address] RBC Distribution 18.0 % High 10.9-14.3 [facility] Comment on above: Performed By: #### S URGP #### [place] (DEFAULT) [address] [place] [address] WBC (Bld) [#/Vol] 14.13 10*3/uL High 3.73-10.10 [facility] Comment on above: Performed By: #### S URGP #### [place] (DEFAULT) [address] [place] [address] CHEM 7 (LYTES,BUN,CREA,GLUC) on 10-18-2024 Anion gap [Moles/Vol] 12 mmol/L 7 - 17 mmol/L [place] Chloride [Moles/Vol] 100 mmol/L 98 - 10 8 mmol/L [place] CO2 [Moles/Vol] 28 mmol/L 21 - 31 mmol/L [place] Creatinine [Mass/Vol] 1.62 mg/dL High 0.70 - 1.30 mg/dL [place] eGFR, CKD-EPI, Male 49 Low - PINF [facility] Comment on above: Reported eGFR is bas ed on the CKD-EPI 2020 equation using creatinine, age, and sex. Glucose [Mass/Vol] 91 mg/dL 70 - 99 mg/dL [place] Osmolality Calc [Osmolality] 287 [place] Potassium [Moles/Vol] 3.7 mmol/L 3.5 - 5.0 mmol/L [place] Sodium [Moles/Vol] 136 mmol/L 135 - 145 mmol/L [place] Urea nitrogen [Mass/Vol] 21 mg/dL 7 - 25 mg/dL [place] Urea nitrogen/Creatinine [Mass ratio] 13 mg/mg [place] Anion gap [Moles/Vol] 12 mmol/L Normal 7-17 [facility] Comment on above: Performed By: #### G EN #### [facility] (DEFAULT) [address] [place] [address] Chloride [Moles/Vol] 100 mmol/L Normal 98-108 [facility] Comment on above: Performed By: #### G EN #### [facility] (DEFAULT) [address] [place] [address] 545[address] CO2 [Moles/Vol] 28 mmol/L Normal 21-31 [facility] Comment on above: Performed By: #### G EN #### [facility] (DEFAULT) [address] [place] [address] Creatinine [Mass/Vol] 1.62 mg/dL High 0.70-1.30 [facility] Comment on above: Performed By: #### G EN #### [facility] (DEFAULT) [address] [place] [address] GFR/1.73 sq M.predicted among non-blacks MDRD (S/P/Bld) [Vol rate/Area] 49 mL/min/{1.73_m2} Low >=60 [facility] Comment on above: Result Comment: Repo rted eGFR is based on the CKD-EPI 2020 equation using creatinine, age, and sex. Performed By: #### G EN #### [facility] (DEFAULT) [address] [place] [address] Glucose [Mass/Vol] 91 mg/dL Normal 70-99 [facility] Comment on above: Performed By: #### G EN #### [facility] (DEFAULT) [address] [place] [address] Osmolality [Osmolality] 287 mosm/kg Normal 278-305 [facility] Comment on above: Performed By: #### G EN #### [facility] (DEFAULT) [address] [place] [address] Potassium [Moles/Vol] 3.7 mmol/L Normal 3.5-5.0 [facility] Comment on above: Performed By: #### G EN #### [place] (DEFAULT) [address] [place] [address] 41585 Sodium [Moles/Vol] 136 mmol/L Normal 135-145 [facility] Comment on above: Performed By: #### G EN #### [place] (DEFAULT) [address] [place] [address] 81256 Urea nitrogen [Mass/Vol] 21 mg/dL Normal 7-25 [facility] Comment on above: Performed By: #### G EN #### [place] (DEFAULT) [address] [place] [address] 36086 Urea nitrogen/Creatinine [Mass ratio] 13 mg/mg Normal [facility] Comment on above: Performed By: #### G EN #### [place] (DEFAULT) [address] [place] [address] ECGOrdered By: Lian sheikh on 10-18-2024 [place] Work Phone: IONIZED CALCIUM, WHOLE BLOOD on 10-18-2024 Calcium.ionized (Bld) [Moles/Vol] 4.38 mg/dL Low 4.60 - 5.30 mg/dL [place] Interpretation and review of laboratory results Abnormal [facility] ICA 4.38 mg/dL Low 4.60-5.30 [facility] Comment on above: Performed By: #### G EN #### [place] (DEFAULT) [address] [place] [address] MAGNESIUMon 10-18-2024 Magnesium [Mass/Vol] 1.5 mg/dL Low 1.6 - 2 .6 mg/dL [place] Magnesium [Mass/Vol] 1.5 mg/dL Low 1.6-2.6 [facility] Comment on above: Performed By: #### G EN #### [place] (DEFAULT) [address] [place] [address]107 No Panel Informationon 10-18 Interpretation and review of laboratory results Abnormal [facility] PHOSPHATE, INORGANICon 10-18 Phosphate [Mass/Vol] 2.1 mg/dL Low 2.2 - 4 .6 mg/dL [place] Phosphorous 2.1 mg/dL Low 2.2-4.6 [facility] Comment on above: Performed By: #### G EN #### [place] (DEFAULT) [address] [place] [address] 88700 Bacteria identified Cx Nom ( Bld)on 10-17-2024 Bacteria identified Cx Nom (Unsp spec) NO GROWTH DAY 5 OF 5 [place] Results may be compr omised due to LOW VOLUME of the BACT\ALERT bottle UNDER 8mLs, which can be associated with decreased sensitivity. The optimal blood volume is 8-10mLs per aerobic/anaerobic blood culture bottle. [facility] CARDIAC RHYTHM (SCANNED)on 1 12-18-2023 [place] CBC,PLATELETSon 10-17-2024 Erythrocyte distribution width (RBC) [Ratio] 14.9 % High 10.9 - 14.3 % [place] Hematocrit (Bld) [Volume fraction] 20.5 % Low 39.6 - 48.8 % [place] Hemoglobin (Bld) [Mass/Vol] 6.4 g/dL Critically low 13.4 - 16.8 g/dL [place] Comment on above: This result has been called to Yesy Barrios RN by [email or web address] on 10/17/2024 02:33:07, and has been read back. Interpretation and review of laboratory results Abnormal [place] MCH (RBC) [Entitic mass] 29.5 pg 26.1 - 33.3 pg [place] MCHC (RBC) [Mass/Vol] 31.2 g/dL Low 31.9 - 36.5 g/dL [place] MCV (RBC) [Entitic vol] 94.5 fL 79.0 - 94.5 fL [place] Platelet mean volume (Bld) [Entitic vol] 9.1 fL 8.7 - 12.3 fL [place] Platelets (Bld) [#/Vol] 299 10*3/uL 146 - 337 K/uL [place] RBC (Bld) [#/Vol] 2.17 10*6/uL Low [facility] WBC (Bld) [#/Vol] 13.38 10*3/uL High 3.73 - 10.10 K/uL [facility] Hematocrit (Bld) [Volume fraction] 20.5 % Low 39.6-48.8 [facility] Comment on above: Performed By: #### ELEN GAMBINO, MGO #### [place] (DEFAULT) [address] [address] Hemoglobin (Bld) [Mass/Vol] 6.4 g/dL Critically low 13.4-16.8 [facility] Comment on above: Result Comment: This result has been called to Yesy Barrios RN by [email or web address] on 10/17/2024 02:33:07, and has been read back. Performed By: #### ELEN GAMBINO, MGO #### [facility] (DEFAULT) [address] [address] MCV (RBC) [Entitic vol] 94.5 fL Normal 79.0-94.5 [facility] Comment on above: Performed By: #### ELEN GAMIBNO, MGO #### [place] (DEFAULT) [address] [address] Mean Cell Hgb 29.5 pg Normal 26.1-33.3 [facility] Comment on above: Performed By: #### ELEN GAMBINO, MGO #### [place] (DEFAULT) [address] [place] [address] 76860 Mean Cell Hgb Conc 31.2 g/dL Low 31.9-36.5 [facility] Comment on above: Performed By: #### Claire HM7, IPB, MGO #### [facility] (DEFAULT) [address] [place] [address] 34135 Platelet mean volume (Bld) [Entitic vol] 9.1 fL Normal 8.7-12.3 [facility] Comment on above: Performed By: #### Claire HM7, IPB, MGO #### [facility] (DEFAULT) [address] [place] [address] 15554 Platelets (Bld) [#/Vol] 299 10*3/uL Normal 146-337 [facility] Comment on above: Performed By: #### Claire HMRosemary, IPB, MGO #### [facility] (DEFAULT) [address] [place] [address] 85488 RBC (Bld) [#/Vol] 2.17 10*6/uL Low 4.38-5.83 [facility] Comment on above: Performed By: #### Claire HMRosemary, IPB, MGO #### [place] (DEFAULT) [address] [place] [address] 01650 RBC Distribution 14.9 % High 10.9-14.3 [facility] Comment on above: Performed By: #### Claire HM7, IPB, MGO #### [place] (DEFAULT) [address] [place] [address] 16365 WBC (Bld) [#/Vol] 13.38 10*3/uL High 3.73-10.10 [facility] Comment on above: Performed By: #### Claire HM7, IPB, MGO #### [place] (DEFAULT) [address] [place] [address] 89946 CHEM 7 (LYTES,BUN,CREA,GLUC) on 10-17-2024 Anion gap [Moles/Vol] 10 mmol/L 7 - 17 mmol/L [place] Chloride [Moles/Vol] 100 mmol/L 98 - 10 8 mmol/L [place] CO2 [Moles/Vol] 29 mmol/L 21 - 31 mmol/L [facility] Creatinine [Mass/Vol] 1.59 mg/dL High 0.70 - 1.30 mg/dL [place] eGFR, CKD-EPI, Male 50 Low - PINF [facility] Comment on above: Reported eGFR is bas ed on the CKD-EPI 2020 equation using creatinine, age, and sex. Glucose [Mass/Vol] 98 mg/dL 70 - 99 mg/dL [place] Interpretation and review of laboratory results Abnormal [place] Osmolality Calc [Osmolality] 286 [place] Potassium [Moles/Vol] 3.4 mmol/L Low 3.5 - 5.0 mmol/L [place] Sodium [Moles/Vol] 136 mmol/L 135 - 145 mmol/L [place] Urea nitrogen [Mass/Vol] 19 mg/dL 7 - 25 mg/dL [place] Urea nitrogen/Creatinine [Mass ratio] 12 mg/mg [place] Anion gap [Moles/Vol] 10 mmol/L Normal 7-17 [facility] Comment on above: Performed By: #### SWATI GAMBINO IPB ####[place] (DEFAULT)[address] [facility] [place] [address] Chloride [Moles/Vol] 100 mmol/L Normal 98-108 [facility] Comment on above: Performed By: #### SWATI GAMBINO IPB ####[place] (DEFAULT)[address] [facility] [place] [address] CO2 [Moles/Vol] 29 mmol/L Normal 21-31 [facility] Comment on above: Performed By: #### SWATI GAMBINO IPB ####[place] (DEFAULT)[address] [facility] [place] [address] Creatinine [Mass/Vol] 1.59 mg/dL High 0.70-1.30 [facility] Comment on above: Performed By: #### SWATI GAMBINO IPB ####[facility] (DEFAULT)[address] [place] [address] GFR/1.73 sq M.predicted among non-blacks MDRD (S/P/Bld) [Vol rate/Area] 50 mL/min/{1.73_m2} Low >=60 [facility] Comment on above: Result Comment: Repo rted eGFR is based on the CKD-EPI 2020 equation using creatinine, age, and sex. Performed By: #### MG IMMANUELO, IPB ####[facility] (DEFAULT)[address] [place] [address] Glucose [Mass/Vol] 98 mg/dL Normal 70-99 [facility] Comment on above: Performed By: #### Claire STAPLES MGO, IPB ####[facility] (DEFAULT)[address] [place] [address] Osmolality [Osmolality] 286 mosm/kg Normal 278-305 [facility] Comment on above: Performed By: #### Claire STAPLES MGO, IPB ####[place] (DEFAULT)[address] [place] [address] Potassium [Moles/Vol] 3.4 mmol/L Low 3.5-5.0 [facility] Comment on above: Performed By: #### Claire HM7 MGO, IPB ####[place] (DEFAULT)[address] [place] [address] Sodium [Moles/Vol] 136 mmol/L Normal 135-145 [facility] Comment on above: Performed By: #### Claire HM7 MGO, IPB ####[place] (DEFAULT)[address] [place] [address] Urea nitrogen [Mass/Vol] 19 mg/dL Normal 7-25 [facility] Comment on above: Performed By: #### Claire HM7, MGO, IPB ####[place] (DEFAULT)[address] [place] [address] Urea nitrogen/Creatinine [Mass ratio] 12 mg/mg Normal [facility] Comment on above: Performed By: #### SWATI GAMBINO IPB ####[place] (DEFAULT)[address] [place] [address] 14868 HEMOGLOBIN & HEMATOCRITon Hematocrit (Bld) [Volume fraction] 27.8 % Low 39.6 - 48.8 % [place] Hemoglobin (Bld) [Mass/Vol] 8.8 g/dL Low 13.4 - 16.8 g/dL [place] Interpretation and review of laboratory results Abnormal [facility] Hematocrit (Bld) [Volume fraction] 27.8 % Low 39.6-48.8 [facility] Comment on above: Order Comment: Post transfusion Performed By: #### ELEN GAMBINO MGO #### [place] (DEFAULT) [address] [place] [address] 16065 Hemoglobin (Bld) [Mass/Vol] 8.8 g/dL Low 13.4-16.8 [facility] Comment on above: Order Comment: Post transfusion Performed By: #### ELEN GAMBINO MGO #### [place] (DEFAULT) [address] [place] [address]60 IONIZED CALCIUM, WHOLE BLOOD on 10-17-2024 Calcium.ionized (Bld) [Moles/Vol] 4.50 mg/dL Low 4.60 - 5.30 mg/dL [place] Interpretation and review of laboratory results Abnormal [facility] ICA 4.50 mg/dL Low 4.60-5.30 [facility] Comment on above: Performed By: #### U [id number] #### [place] (DEFAULT) [address] [place] [address] 14686 MAGNESIUMon 10-17-2024 Magnesium [Mass/Vol] 1.6 mg/dL 1.6 - 2 .6 mg/dL [place] Magnesium [Mass/Vol] 1.6 mg/dL Normal 1.6-2.6 [facility] Comment on above: Performed By: #### C SWATI STAPLES IPB ####[facility] (DEFAULT)[address] [place] [address] No Panel Informationon 10-17 Interpretation and review of laboratory results Normal [facility] PHOSPHATE, INORGANICon 10-17 Phosphate [Mass/Vol] 2.4 mg/dL 2.2 - 4 .6 mg/dL [place] Phosphorous 2.4 mg/dL Normal 2.2-4.6 [facility] Comment on above: Performed By: #### C ELEN STAPLES, SWATI #### [facility] (DEFAULT) [address] [place] [address] PREPARE TO TRANSFUSE RED BLO OD CELLSon 10-17-2024 ABO/RH(D) TYPE Positive [place] BLOOD COMPONENT TYPE Red Cells, Leukoreduced [place] EXPIRATION DATE [id number] [facility] Product ABO/RH(D) Negative [facility] Product ABO/RH(D) NUMBER 600 [place] PRODUCT CODE [id number] [facility] UNIT NUMBER [id number] [facility] UNIT STATUS transfused [facility] TYPE AND SCREENon 10-17-2024 ABO/RH(D) TYPE Positive [place] Outdate Specimen 10/20/2024 23:59 [facility] ABO/RH(D) TYPE Positive Normal [facility] Comment on above: Performed By: #### U [id number] #### [place] (DEFAULT) [address] [place] [address] Outdate Specimen 10/20/2024 23:59 Normal [facility] Comment on above: Performed By: #### U [id number] #### [place] (DEFAULT) [address] [address] CBC,PLATELETSon 10-16-2024 Erythrocyte distribution width (RBC) [Ratio] 15.0 % High 10.9 - 14.3 % [place] Hematocrit (Bld) [Volume fraction] 24.1 % Low 39.6 - 48.8 % [place] Hemoglobin (Bld) [Mass/Vol] 7.4 g/dL Low 13.4 - 16.8 g/dL [place] Interpretation and review of laboratory results Abnormal [place] MCH (RBC) [Entitic mass] 29.1 pg 26.1 - 33.3 pg [place] MCHC (RBC) [Mass/Vol] 30.7 g/dL Low 31.9 - 36.5 g/dL [place] MCV (RBC) [Entitic vol] 94.9 fL High 79.0 - 94.5 fL [place] Platelet mean volume (Bld) [Entitic vol] 8.6 fL Low 8.7 - 12.3 fL [place] Platelets (Bld) [#/Vol] 297 10*3/uL 146 - 337 K/uL [place] RBC (Bld) [#/Vol] 2.54 10*6/uL Low [facility] WBC (Bld) [#/Vol] 12.75 10*3/uL High 3.73 - 10.10 K/uL [facility] Hematocrit (Bld) [Volume fraction] 24.1 % Low 39.6-48.8 [facility] Comment on above: Performed By: #### ELEN GAMBINO MGO #### [place] (DEFAULT) [address] [address] Hemoglobin (Bld) [Mass/Vol] 7.4 g/dL Low 13.4-16.8 [facility] Comment on above: Performed By: #### ELEN GAMBINO, MGO #### [place] (DEFAULT) [address] [place] [address]60 MCV (RBC) [Entitic vol] 94.9 fL High 79.0-94.5 [facility] Comment on above: Performed By: #### C HM7, IPB, MGO #### [facility] (DEFAULT) [address] [place] [address] 85346 Mean Cell Hgb 29.1 pg Normal 26.1-33.3 [facility] Comment on above: Performed By: #### C HM7, IPB, MGO #### [facility] (DEFAULT) [address] [place] [address] 31690 Mean Cell Hgb Conc 30.7 g/dL Low 31.9-36.5 [facility] Comment on above: Performed By: #### Claire HM7, IPB, MGO #### [facility] (DEFAULT) [address] [place] [address]509 Platelet mean volume (Bld) [Entitic vol] 8.6 fL Low 8.7-12.3 [facility] Comment on above: Performed By: #### C HM7, IPB, MGO #### [facility] (DEFAULT) [address] [place] [address]28 Platelets (Bld) [#/Vol] 297 10*3/uL Normal 146-337 [facility] Comment on above: Performed By: #### C HM7, IPB, MGO #### [facility] (DEFAULT) [address] [place] [address] 01298 RBC (Bld) [#/Vol] 2.54 10*6/uL Low 4.38-5.83 [facility] Comment on above: Performed By: #### Claire HM7, IPB, MGO #### [facility] (DEFAULT) [address] [place] [address] 40711 RBC Distribution 15.0 % High 10.9-14.3 [facility] Comment on above: Performed By: #### Claire HM7, IPB, MGO #### [facility] (DEFAULT) [address] [place] [address] WBC (Bld) [#/Vol] 12.75 10*3/uL High 3.73-10.10 [facility] Comment on above: Performed By: #### C HM7, ELEN, MGO #### [place] (DEFAULT) [address] [place] [address] CHEM 7 (LYTES,BUN,CREA,GLUC) Ordered By: Shay Sanchez on 10-16-2024 Anion gap [Moles/Vol] 9 mmol/L 7 - 17 mmol/L [place] Chloride [Moles/Vol] 104 mmol/L 98 - 10 8 mmol/L [place] CO2 [Moles/Vol] 30 mmol/L 21 - 31 mmol/L [place] Creatinine [Mass/Vol] 1.87 mg/dL High 0.70 - 1.30 mg/dL [place] eGFR, CKD-EPI, Male 41 Low - PINF [facility] Comment on above: Reported eGFR is bas ed on the CKD-EPI 2020 equation using creatinine, age, and sex. Glucose [Mass/Vol] 109 mg/dL High 70 - 99 mg/dL [place] Osmolality Calc [Osmolality] 296 [place] Potassium [Moles/Vol] 3.1 mmol/L Low 3.5 - 5.0 mmol/L [place] Sodium [Moles/Vol] 140 mmol/L 135 - 145 mmol/L [place] Urea nitrogen [Mass/Vol] 25 mg/dL 7 - 25 mg/dL [place] Urea nitrogen/Creatinine [Mass ratio] 13 mg/mg [place] CHEM 7 (LYTES,BUN,CREA,GLUC) on 10-16-2024 Anion gap [Moles/Vol] 9 mmol/L Normal 7-17 [facility] Comment on above: Performed By: #### T YPEC #### [place] (DEFAULT) [address] [place] [address] Chloride [Moles/Vol] 104 mmol/L Normal 98-108 [facility] Comment on above: Performed By: #### T YPEC #### [place] (DEFAULT) [address] [address] CO2 [Moles/Vol] 30 mmol/L Normal 21-31 [facility] Comment on above: Performed By: #### T YPEC #### [place] (DEFAULT) [address] [address] Creatinine [Mass/Vol] 1.87 mg/dL High 0.70-1.30 [facility] Comment on above: Performed By: #### T YPEC #### [place] (DEFAULT) [address] [address] GFR/1.73 sq M.predicted among non-blacks MDRD (S/P/Bld) [Vol rate/Area] 41 mL/min/{1.73_m2} Low >=60 [facility] Comment on above: Result Comment: Repo rted eGFR is based on the CKD-EPI 2020 equation using creatinine, age, and sex. Performed By: #### T YPEC #### [place] (DEFAULT) [address] [address] Glucose [Mass/Vol] 109 mg/dL High 70-99 [facility] Comment on above: Performed By: #### T YPEC #### [facility] (DEFAULT) [address] [address] Osmolality [Osmolality] 296 mosm/kg Normal 278-305 [facility] Comment on above: Performed By: #### T YPEC #### [facility] (DEFAULT) [address] [address] Potassium [Moles/Vol] 3.1 mmol/L Low 3.5-5.0 [facility] Comment on above: Performed By: #### T YPEC #### [place] (DEFAULT) [address] [address] Sodium [Moles/Vol] 140 mmol/L Normal 135-145 [facility] [facility] Comment on above: Performed By: #### T YPEC #### [place] (DEFAULT) [address] [place] [address] Urea nitrogen [Mass/Vol] 25 mg/dL Normal 7-25 [facility] Comment on above: Performed By: #### T YPEC #### [place] (DEFAULT) [address] [place] [address] Urea nitrogen/Creatinine [Mass ratio] 13 mg/mg Normal [facility] Comment on above: Performed By: #### T YPEC #### [place] (DEFAULT) [address] [place] [address] Culture, Blood (WB)on 2023 CUB Blood cultures x2, f rom two different sites No growth in 5 days. Normal [facility] Comment on above: Performed By: #### M 200.1000 ####[facility] [id number] [place], [address] GLUCOSE POCon 10-16-2024 Glucose [Mass/Vol] 102 mg/dL High 70 - 99 mg/dL [place] Interpretation and review of laboratory results Abnormal [place] POC Sample Type CAPBL [facility] Test performed at ad dress of the patient encounter. [place] [facility] IONIZED CALCIUM, WHOLE BLOOD Ordered By: Eber Oro on 10-16-2024 Calcium.ionized (Bld) [Moles/Vol] 4.39 mg/dL Low 4.60 - 5.30 mg/dL [place] Interpretation and review of laboratory results Abnormal [place] [facility] IONIZED CALCIUM, WHOLE BLOOD on 10-16-2024 ICA 4.39 mg/dL Low 4.60-5.30 [facility] Comment on above: Performed By: #### U [id number] #### [place] (DEFAULT) [address] [place] [address] MAGNESIUMon 10-16-2024 Interpretation and review of laboratory results Normal [place] Magnesium [Mass/Vol] 1.8 mg/dL 1.6 - 2 .6 mg/dL [facility] Magnesium [Mass/Vol] 1.8 mg/dL Normal 1.6-2.6 [facility] Comment on above: Performed By: #### T YPEC #### [place] (DEFAULT) [address] [place] [address] No Panel InformationOrdered By: Shay Sanchez on 10-16-2024 Interpretation and review of laboratory results Abnormal [facility] PHOSPHATE, INORGANICon 10-16 Phosphate [Mass/Vol] 1.7 mg/dL Low 2.2 - 4 .6 mg/dL [place] Phosphorous 1.7 mg/dL Low 2.2-4.6 [facility] Comment on above: Performed By: #### T YPEC #### [place] (DEFAULT) [address] [place] [address] POTASSIUMon 10-16-2024 Interpretation and review of laboratory results Normal [place] Potassium [Moles/Vol] 3.6 mmol/L 3.5 - 5.0 mmol/L [facility] Potassium [Moles/Vol] 3.6 mmol/L Normal 3.5-5.0 [facility] Comment on above: Performed By: #### G EN #### [place] (DEFAULT) [address] [place] [address] CBC,PLATELETSon 10-15-2024 Erythrocyte distribution width (RBC) [Ratio] 15.6 % High 10.9 - 14.3 % [place] Hematocrit (Bld) [Volume fraction] 24.8 % Low 39.6 - 48.8 % [place] Hemoglobin (Bld) [Mass/Vol] 7.6 g/dL Low 13.4 - 16.8 g/dL [place] Interpretation and review of laboratory results Abnormal [place] MCH (RBC) [Entitic mass] 29.8 pg 26.1 - 33.3 pg [place] MCHC (RBC) [Mass/Vol] 30.6 g/dL Low 31.9 - 36.5 g/dL [place] MCV (RBC) [Entitic vol] 97.3 fL High 79.0 - 94.5 fL [place] Platelet mean volume (Bld) [Entitic vol] 8.8 fL 8.7 - 12.3 fL [place] Platelets (Bld) [#/Vol] 341 10*3/uL High 146 - 337 K/uL [place] RBC (Bld) [#/Vol] 2.55 10*6/uL Low [facility] WBC (Bld) [#/Vol] 11.70 10*3/uL High 3.73 - 10.10 K/uL [facility] Hematocrit (Bld) [Volume fraction] 24.8 % Low 39.6-48.8 [facility] Comment on above: Performed By: #### ELEN GAMBINO MGO #### [place] (DEFAULT) [address] [address] Hemoglobin (Bld) [Mass/Vol] 7.6 g/dL Low 13.4-16.8 [facility] Comment on above: Performed By: #### ELEN GAMBINO, MGO #### [place] (DEFAULT) [address] [address] MCV (RBC) [Entitic vol] 97.3 fL High 79.0-94.5 [facility] Comment on above: Performed By: #### ELEN GAMBINO, MGO #### [place] (DEFAULT) [address] [address] Mean Cell Hgb 29.8 pg Normal 26.1-33.3 [facility] Comment on above: Performed By: #### C HM7, IPB, MGO #### [facility] (DEFAULT) [address] [place] [address] Mean Cell Hgb Conc 30.6 g/dL Low 31.9-36.5 [facility] Comment on above: Performed By: #### C HM7, IPB, MGO #### [facility] (DEFAULT) [address] [place] [address] Platelet mean volume (Bld) [Entitic vol] 8.8 fL Normal 8.7-12.3 [facility] Comment on above: Performed By: #### C HM7, IPB, MGO #### [facility] (DEFAULT) [address] [place] [address] Platelets (Bld) [#/Vol] 341 10*3/uL High 146-337 [facility] Comment on above: Performed By: #### C HM7, IPB, MGO #### [place] (DEFAULT) [address] [place] [address] RBC (Bld) [#/Vol] 2.55 10*6/uL Low 4.38-5.83 [facility] Comment on above: Performed By: #### C HM7, IPB, MGO #### [facility] (DEFAULT) [address] [place] [address] RBC Distribution 15.6 % High 10.9-14.3 [facility] Comment on above: Performed By: #### C HM7, IPB, MGO #### [facility] (DEFAULT) [address] [place] [address] WBC (Bld) [#/Vol] 11.70 10*3/uL High 3.73-10.10 [facility] Comment on above: Performed By: #### C HM7, IPB, MGO #### [facility] (DEFAULT) [address] [place] [address] CHEM 7 (LYTES,BUN,CREA,GLUC) Ordered By: Susie Rodriguez on 10-15-2024 Anion gap [Moles/Vol] 20 mmol/L High 7 - 17 mmol/L [place] Chloride [Moles/Vol] 107 mmol/L 98 - 10 8 mmol/L [place] CO2 [Moles/Vol] 28 mmol/L 21 - 31 mmol/L [place] Creatinine [Mass/Vol] 2.49 mg/dL High 0.70 - 1.30 mg/dL [place] eGFR, CKD-EPI, Male 29 Low - PINF [facility] Comment on above: Reported eGFR is bas ed on the CKD-EPI 2020 equation using creatinine, age, and sex. Glucose [Mass/Vol] 78 mg/dL 70 - 99 mg/dL [place] Interpretation and review of laboratory results Abnormal [place] Osmolality Calc [Osmolality] 322 High [place] Potassium [Moles/Vol] 3.8 mmol/L 3.5 - 5.0 mmol/L [place] Sodium [Moles/Vol] 151 mmol/L High 135 - 145 mmol/L [place] Urea nitrogen [Mass/Vol] 41 mg/dL High 7 - 25 mg/dL [place] Urea nitrogen/Creatinine [Mass ratio] 16 mg/mg [facility] CHEM 7 (LYTES,BUN,CREA,GLUC) on 10-15-2024 Anion gap [Moles/Vol] 20 mmol/L High 7-17 [facility] Comment on above: Performed By: #### C JHOAN, ELEN, MGO #### [place] (DEFAULT) [address] [place] [address] Chloride [Moles/Vol] 107 mmol/L Normal 98-108 [facility] Comment on above: Performed By: #### Claire STAPLES, IPB, MGO #### [place] (DEFAULT) [address] [place] [address] CO2 [Moles/Vol] 28 mmol/L Normal 21-31 [facility] Comment on above: Performed By: #### CASSIDY GAMBINOB, MGO #### [facility] (DEFAULT) [address] [place] [address] Creatinine [Mass/Vol] 2.49 mg/dL High 0.70-1.30 [facility] Comment on above: Performed By: #### Claire STAPLES, IPB, MGO #### [facility] (DEFAULT) [address] [place] [address] GFR/1.73 sq M.predicted among non-blacks MDRD (S/P/Bld) [Vol rate/Area] 29 mL/min/{1.73_m2} Low >=60 [facility] Comment on above: Result Comment: Repo rted eGFR is based on the CKD-EPI 2020 equation using creatinine, age, and sex. Performed By: #### ELEN GAMBINO, MGO #### [place] (DEFAULT) [address] [place] [address] Glucose [Mass/Vol] 78 mg/dL Normal 70-99 [facility] Comment on above: Performed By: #### ELEN GAMBINO, MGO #### [facility] (DEFAULT) [address] [place] [address] Osmolality [Osmolality] 322 mosm/kg High 278-305 [facility] Comment on above: Performed By: #### CASSIDY GAMBINOB, MGO #### [facility] (DEFAULT) [address] [place] [address] Potassium [Moles/Vol] 3.8 mmol/L Normal 3.5-5.0 [facility] Comment on above: Performed By: #### Claire STAPLES, CASSIDYB, MGO #### [facility] (DEFAULT) [address] [place] [address] Sodium [Moles/Vol] 151 mmol/L High 135-145 [facility] Comment on above: Performed By: #### Claire HMRosemary, IPB, MGO #### [place] (DEFAULT) [address] [place] [address] Urea nitrogen [Mass/Vol] 41 mg/dL High 7-25 [facility] Comment on above: Performed By: #### ELEN GAMBINO, MGO #### [facility] (DEFAULT) [address] [place] [address] Urea nitrogen/Creatinine [Mass ratio] 16 mg/mg Normal [facility] Comment on above: Performed By: #### ELEN GAMBINO, MGO #### [place] (DEFAULT) [address] [place] [address] IONIZED CALCIUM, WHOLE BLOOD on 10-15-2024 Calcium.ionized (Bld) [Moles/Vol] 4.95 mg/dL 4.60 - 5.30 mg/dL [place] Interpretation and review of laboratory results Normal [facility] ICA 4.95 mg/dL Normal 4.60-5.30 [facility] Comment on above: Performed By: #### S URGP #### [place] (DEFAULT) [address] [place] [address] MAGNESIUMon 10-15-2024 Magnesium [Mass/Vol] 1.8 mg/dL 1.6 - 2 .6 mg/dL [place] Magnesium [Mass/Vol] 1.8 mg/dL Normal 1.6-2.6 [facility] Comment on above: Performed By: #### ELEN GAMBINO, MGO #### [place] (DEFAULT) [address] [place] [address] No Panel Informationon 10-15 Interpretation and review of laboratory results Normal [facility] PHOSPHATE, INORGANICon 10-15 Phosphate [Mass/Vol] 4.0 mg/dL 2.2 - 4 .6 mg/dL [place] Phosphorous 4.0 mg/dL Normal 2.2-4.6 [facility] Comment on above: Performed By: #### C ELEN STAPLES, MGO #### [place] (DEFAULT) [address] [place] [address] CBC,PLATELETSon 10-14-2024 Erythrocyte distribution width (RBC) [Ratio] 15.6 % High 10.9 - 14.3 % [place] Hematocrit (Bld) [Volume fraction] 23.3 % Low 39.6 - 48.8 % [place] Hemoglobin (Bld) [Mass/Vol] 7.2 g/dL Low 13.4 - 16.8 g/dL [place] Interpretation and review of laboratory results Abnormal [place] MCH (RBC) [Entitic mass] 29.8 pg 26.1 - 33.3 pg [place] MCHC (RBC) [Mass/Vol] 30.9 g/dL Low 31.9 - 36.5 g/dL [place] MCV (RBC) [Entitic vol] 96.3 fL High 79.0 - 94.5 fL [place] Platelet mean volume (Bld) [Entitic vol] 8.9 fL 8.7 - 12.3 fL [place] Platelets (Bld) [#/Vol] 365 10*3/uL High 146 - 337 K/uL [place] RBC (Bld) [#/Vol] 2.42 10*6/uL Low [facility] WBC (Bld) [#/Vol] 12.83 10*3/uL High 3.73 - 10.10 K/uL [facility] Hematocrit (Bld) [Volume fraction] 23.3 % Low 39.6-48.8 [facility] Comment on above: Performed By: #### S URGP #### [place] (DEFAULT) [address] [address] Hemoglobin (Bld) [Mass/Vol] 7.2 g/dL Low 13.4-16.8 [facility] Comment on above: Performed By: #### S URGP #### [place] (DEFAULT) [address] [place] [address] MCV (RBC) [Entitic vol] 96.3 fL High 79.0-94.5 [facility] Comment on above: Performed By: #### S URGP #### [facility] (DEFAULT) [address] [place] [address] Mean Cell Hgb 29.8 pg Normal 26.1-33.3 [facility] Comment on above: Performed By: #### S URGP #### [facility] (DEFAULT) [address] [place] [address] Mean Cell Hgb Conc 30.9 g/dL Low 31.9-36.5 [facility] Comment on above: Performed By: #### S URGP #### [facility] (DEFAULT) [address] [place] [address] Platelet mean volume (Bld) [Entitic vol] 8.9 fL Normal 8.7-12.3 [facility] Comment on above: Performed By: #### S URGP #### [place] (DEFAULT) [address] [place] [address] Platelets (Bld) [#/Vol] 365 10*3/uL High 146-337 [facility] Comment on above: Performed By: #### S URGP #### [place] (DEFAULT) [address] [place] [address] RBC (Bld) [#/Vol] 2.42 10*6/uL Low 4.38-5.83 [facility] Comment on above: Performed By: #### S URGP #### [facility] (DEFAULT) [address] [place] [address] RBC Distribution 15.6 % High 10.9-14.3 [facility] Comment on above: Performed By: #### S URGP #### [facility] (DEFAULT) [address] [place] [address] WBC (Bld) [#/Vol] 12.83 10*3/uL High 3.73-10.10 [facility] Comment on above: Performed By: #### S URGP #### [place] (DEFAULT) [address] [place] [id number] CHEM 7 (LYTES,BUN,CREA,GLUC) on 10-14-2024 Anion gap [Moles/Vol] 17 mmol/L 7 - 17 mmol/L [place] Chloride [Moles/Vol] 104 mmol/L 98 - 10 8 mmol/L [place] CO2 [Moles/Vol] 28 mmol/L 21 - 31 mmol/L [place] Creatinine [Mass/Vol] 2.89 mg/dL High 0.70 - 1.30 mg/dL [place] eGFR, CKD-EPI, Male 24 Low - PINF [facility] Comment on above: Reported eGFR is bas ed on the CKD-EPI 2020 equation using creatinine, age, and sex. Glucose [Mass/Vol] 68 mg/dL Low 70 - 99 mg/dL [place] Interpretation and review of laboratory results Abnormal [place] Osmolality Calc [Osmolality] 312 High [place] Potassium [Moles/Vol] 3.7 mmol/L 3.5 - 5.0 mmol/L [place] Sodium [Moles/Vol] 145 mmol/L 135 - 145 mmol/L [place] Urea nitrogen [Mass/Vol] 47 mg/dL High 7 - 25 mg/dL [place] Urea nitrogen/Creatinine [Mass ratio] 16 mg/mg [place] Anion gap [Moles/Vol] 17 mmol/L Normal 7-17 [facility] Comment on above: Performed By: #### U [id number] #### [place] (DEFAULT) [address] [place] [address] Chloride [Moles/Vol] 104 mmol/L Normal 98-108 [facility] Comment on above: Performed By: #### U [id number] #### [place] (DEFAULT) [address] [place] [address] CO2 [Moles/Vol] 28 mmol/L Normal 21-31 [facility] Comment on above: Performed By: #### U [id number] #### [facility] (DEFAULT) [address] [place] [address] Creatinine [Mass/Vol] 2.89 mg/dL High 0.70-1.30 [facility] Comment on above: Performed By: #### U [id number] #### [facility] (DEFAULT) [address] [place] [address] GFR/1.73 sq M.predicted among non-blacks MDRD (S/P/Bld) [Vol rate/Area] 24 mL/min/{1.73_m2} Low >=60 [facility] Comment on above: Result Comment: Repo rted eGFR is based on the CKD-EPI 2020 equation using creatinine, age, and sex. Performed By: #### U [id number] #### [facility] (DEFAULT) [address] [place] [address] Glucose [Mass/Vol] 68 mg/dL Low 70-99 [facility] Comment on above: Performed By: #### U [id number] #### [place] (DEFAULT) [address] [place] [address] Osmolality [Osmolality] 312 mosm/kg High 278-305 [facility] Comment on above: Performed By: #### U [id number] #### [facility] (DEFAULT) [address] [place] [address] Potassium [Moles/Vol] 3.7 mmol/L Normal 3.5-5.0 [facility] Comment on above: Performed By: #### U [id number] #### [facility] (DEFAULT) [address] [place] [address] Sodium [Moles/Vol] 145 mmol/L Normal 135-145 [facility] Comment on above: Performed By: #### U [id number] #### [facility] (DEFAULT) [address] [place] [address] Urea nitrogen [Mass/Vol] 47 mg/dL High 7-25 [facility] Comment on above: Performed By: #### U [id number] #### [place] (DEFAULT) [address] [place] [address] Urea nitrogen/Creatinine [Mass ratio] 16 mg/mg Normal [facility] Comment on above: Performed By: #### U [id number] #### [place] (DEFAULT) [address] [place] [address] IONIZED CALCIUM, WHOLE BLOOD Ordered By: Almita Roberson on 10-14-2024 Calcium.ionized (Bld) [Moles/Vol] 4.89 mg/dL 4.60 - 5.30 mg/dL [place] Interpretation and review of laboratory results Normal [facility] IONIZED CALCIUM, WHOLE BLOOD on 10-14-2024 ICA 4.89 mg/dL Normal 4.60-5.30 [facility] Comment on above: Performed By: #### C HM7, IPB, MGO #### [place] (DEFAULT) [address] [place] [address] MAGNESIUMon 10-14-2024 Magnesium [Mass/Vol] 2.0 mg/dL 1.6 - 2 .6 mg/dL [place] Magnesium [Mass/Vol] 2.0 mg/dL Normal 1.6-2.6 [facility] Comment on above: Performed By: #### U [id number] #### [place] (DEFAULT) [address] [place] [address] No Panel Informationon 10-14 Interpretation and review of laboratory results Normal [facility] PHOSPHATE, INORGANICon 10-14 Phosphate [Mass/Vol] 4.5 mg/dL 2.2 - 4 .6 mg/dL [place] Phosphorous 4.5 mg/dL Normal 2.2-4.6 [facility] Comment on above: Performed By: #### U [id number] #### [facility] (DEFAULT) [address] [place] [address] XR ABDOMEN 1 VIEWon 10-14-20 XR ABDOMEN 1 VIEW EXAM: XR ABDOMEN 1 V IEW, 10/14/2024 23:04 PM COMPARISON: Abdominal radiograph dated October 14, 2024 at 1721 hours. CLINICAL INDICATIONS: Repeat exam following gastrograffin administration FINDINGS: Tubes: Bilateral nephrostomy tubes in stable position. Partially visualized tip of an enteric tube in the expected location of the stomach in the left upper quadrant. Bowel gas pattern: Slightly prominent small bowel loops in the lower abdomen. Most of the previously administered enteric contrast has been excreted, visualizing residual contrast in distal small bowel loops and colon. No visible free air. Abnormal calcifications/Radiopaciti es: None. Bones: No acute abnormality. IMPRESSION: Slightly prominent small bowel loops in the lower abdomen. Most of the previously administered enteric contrast has been excreted, visualizing residual contrast in distal small bowel loops and colon. Normal [facility] XR ABDOMEN 1 VIEW PORTABLEon 10-14-2024 XR ABDOMEN 1 VIEW PORTABLE EXAM: XR ABDOMEN 1 VIEW PORTABLE, 10/14/2024 17:22 PM COMPARISON: Radiograph October 12, 2024 CLINICAL INDICATIONS: Gastrograffin challenge follow up after SBO FINDINGS: Tubes: Bilateral percutaneous nephrostomy catheters project in the region of the kidneys. Enteric tube tip and sidehole project in the gastric body. Bowel gas pattern: Borderline dilated small bowel filled with contrast throughout the abdomen. Enteric contrast is seen within the ascending colon. No visible free air. Abnormal calcifications/Radiopaciti es: None. Bones: No acute abnormality. Other findings: None. IMPRESSION: Enteric contrast in the proximal colon. Borderline dilated small bowel loops filled with contrast. Normal [facility] XR Abdomen Single viewon IMPRESSION: Slightly prominent small bowel loops in the lower abdomen. Most of the previously administered enteric contrast has been excreted, visualizing residual contrast in distal small bowel loops and colon. OLOGY EXAM: XR ABDOMEN 1 V IEW, 10/14/2024 23:04 PM COMPARISON: Abdominal radiograph dated October 14, 2024 at 1721 hours. CLINICAL INDICATIONS: Repeat exam following gastrograffin administration FINDINGS: Tubes: Bilateral nephrostomy tubes in stable position. Partially visualized tip of an enteric tube in the expected location of the stomach in the left upper quadrant. Bowel gas pattern: Slightly prominent small bowel loops in the lower abdomen. Most of the previously administered enteric contrast has been excreted, visualizing residual contrast in distal small bowel loops and colon. No visible free air. Abnormal calcifications/Radiopaciti es: None. Bones: No acute abnormality. RADIOLOGY Guera Obrien ma, MD - 10/14/2024 EXAM: XR ABDOMEN 1 VIEW, 10/14/2024 23:04 PM COMPARISON: Abdominal radiograph dated October 14, 2024 at 1721 hours. CLINICAL INDICATIONS: Repeat exam following gastrograffin administration FINDINGS: Tubes: Bilateral nephrostomy tubes in stable position. Partially visualized tip of an enteric tube in the expected location of the stomach in the left upper quadrant. Bowel gas pattern: Slightly prominent small bowel loops in the lower abdomen. Most of the previously administered enteric contrast has been excreted, visualizing residual contrast in distal small bowel loops and colon. No visible free air. Abnormal calcifications/Radiopaciti es: None. Bones: No acute abnormality. IMPRESSION IMPRESSION: Slightly prominent small bowel loops in the lower abdomen. Most of the previously administered enteric contrast has been excreted, visualizing residual contrast in distal small bowel loops and colon. [facility] Study observation (narrative) [place] IMPRESSION: Enteric contrast in the proximal colon. Borderline dilated small bowel loops filled with contrast. OLOGY EXAM: XR ABDOMEN 1 V IEW PORTABLE, 10/14/2024 17:22 PM COMPARISON: Radiograph October 12, 2024 CLINICAL INDICATIONS: Gastrograffin challenge follow up after SBO FINDINGS: Tubes: Bilateral percutaneous nephrostomy catheters project in the region of the kidneys. Enteric tube tip and sidehole project in the gastric body. Bowel gas pattern: Borderline dilated small bowel filled with contrast throughout the abdomen. Enteric contrast is seen within the ascending colon. No visible free air. Abnormal calcifications/Radiopaciti es: None. Bones: No acute abnormality. Other findings: None. RADIOLOGY Albert Bear MD - 10/14/2024 EXAM: XR ABDOMEN 1 VIEW PORTABLE, 10/14/2024 17:22 PM COMPARISON: Radiograph October 12, 2024 CLINICAL INDICATIONS: Gastrograffin challenge follow up after SBO FINDINGS: Tubes: Bilateral percutaneous nephrostomy catheters project in the region of the kidneys. Enteric tube tip and sidehole project in the gastric body. Bowel gas pattern: Borderline dilated small bowel filled with contrast throughout the abdomen. Enteric contrast is seen within the ascending colon. No visible free air. Abnormal calcifications/Radiopaciti es: None. Bones: No acute abnormality. Other findings: None. IMPRESSION IMPRESSION: Enteric contrast in the proximal colon. Borderline dilated small bowel loops filled with contrast. [facility] Study observation (narrative) [place] XR Abdomen Single viewOrdere d By: Genevieve Escobar on 10-14-2024 [facility] Work Phone: XR Abdomen Single viewOrdere d By: Albert Bear on 10-14-2024 [place] CBC,PLATELETSon 10-13-2024 Erythrocyte distribution width (RBC) [Ratio] 15.9 % High 10.9 - 14.3 % [facility] Hematocrit (Bld) [Volume fraction] 25.5 % Low 39.6 - 48.8 % [facility] Hemoglobin (Bld) [Mass/Vol] 7.9 g/dL Low 13.4 - 16.8 g/dL [facility] Comment on above: Results inconsistent with previous results. Interpretation and review of laboratory results Abnormal [place] MCH (RBC) [Entitic mass] 29.6 pg 26.1 - 33.3 [facility] [Mass/Vol] 31.0 g/dL Low 31.9 - 36.5 g/dL [place] MCV (RBC) [Entitic vol] 95.5 fL High 79.0 - 94.5 fL [place] Platelet mean volume (Bld) [Entitic vol] 8.6 fL Low 8.7 - 12.3 fL [facility] Platelets (Bld) [#/Vol] 437 10*3/uL High 146 - 337 K/uL [place] RBC (Bld) [#/Vol] 2.67 10*6/uL Low [facility] WBC (Bld) [#/Vol] 17.22 10*3/uL High 3.73 - 10.10 K/uL [facility] Hematocrit (Bld) [Volume fraction] 25.5 % Low 39.6-48.8 [facility] Comment on above: Performed By: #### C JHOAN, ELEN, MGO #### [place] (DEFAULT) [address] [address] Hemoglobin (Bld) [Mass/Vol] 7.9 g/dL Low 13.4-16.8 [facility] Comment on above: Result Comment: Resu lts inconsistent with previous results. Performed By: #### C HM7, IPB, MGO #### [place] (DEFAULT) [address] [place] [address] MCV (RBC) [Entitic vol] 95.5 fL High 79.0-94.5 [facility] Comment on above: Performed By: #### Claire HM7, IPB, MGO #### [place] (DEFAULT) [address] [address] Mean Cell Hgb 29.6 pg Normal 26.1-33.3 [facility] Comment on above: Performed By: #### Claire HM7, IPB, MGO #### [place] (DEFAULT) [address] [address] Mean Cell Hgb Conc 31.0 g/dL Low 31.9-36.5 [facility] [facility] Comment on above: Performed By: #### Claire STAPLES, IPB, MGO #### [facility] (DEFAULT) [address] [place] [address] 67309 Platelet mean volume (Bld) [Entitic vol] 8.6 fL Low 8.7-12.3 [facility] Comment on above: Performed By: #### Claire HMRosemary, IPB, MGO #### [facility] (DEFAULT) [address] [place] [address] 47195 Platelets (Bld) [#/Vol] 437 10*3/uL High 146-337 [facility] Comment on above: Performed By: #### Claire HM7, IPB, MGO #### [facility] (DEFAULT) [address] [place] [address] 79636 RBC (Bld) [#/Vol] 2.67 10*6/uL Low 4.38-5.83 [facility] Comment on above: Performed By: #### Claire STAPLES, IPB, MGO #### [place] (DEFAULT) [address] [place] [address] 34558 RBC Distribution 15.9 % High 10.9-14.3 [facility] Comment on above: Performed By: #### Claire HM7, IPB, MGO #### [facility] (DEFAULT) [address] [place] [address] 53438 WBC (Bld) [#/Vol] 17.22 10*3/uL High 3.73-10.10 [facility] Comment on above: Performed By: #### Claire HMRosemary, IPB, MGO #### [facility] (DEFAULT) [address] [place] [address] 91183 CHEM 7 (LYTES,BUN,CREA,GLUC) on 10-13-2024 Anion gap [Moles/Vol] 20 mmol/L High 7 - 17 mmol/L [facility] Chloride [Moles/Vol] 103 mmol/L 98 - 10 8 mmol/L [facility] CO2 [Moles/Vol] 26 mmol/L 21 - 31 mmol/L [facility] Creatinine [Mass/Vol] 2.80 mg/dL High 0.70 - 1.30 mg/dL [facility] eGFR, CKD-EPI, Male 25 Low - PINF [facility] Comment on above: Reported eGFR is bas ed on the CKD-EPI 2020 equation using creatinine, age, and sex. Glucose [Mass/Vol] 78 mg/dL 70 - 99 mg/dL [facility] Interpretation and review of laboratory results Abnormal [facility] Osmolality Calc [Osmolality] 313 High [facility] Potassium [Moles/Vol] 3.7 mmol/L 3.5 - 5.0 mmol/L [facility] Sodium [Moles/Vol] 145 mmol/L 135 - 145 mmol/L [facility] Urea nitrogen [Mass/Vol] 48 mg/dL High 7 - 25 mg/dL [facility] Urea nitrogen/Creatinine [Mass ratio] 17 mg/mg [facility] Anion gap [Moles/Vol] 20 mmol/L High 7-17 [facility] Comment on above: Performed By: #### Claire STAPLES, ELEN, MGO #### [facility] (DEFAULT) [address] [place] [address] Chloride [Moles/Vol] 103 mmol/L Normal 98-108 [facility] Comment on above: Performed By: #### Claire STAPLES, IPB, MGO #### [facility] (DEFAULT) [address] [place] [address] CO2 [Moles/Vol] 26 mmol/L Normal 21-31 [facility] Comment on above: Performed By: #### Claire STAPLES, IPB, MGO #### [place] (DEFAULT) [address] [place] [address] Creatinine [Mass/Vol] 2.80 mg/dL High 0.70-1.30 [facility] Comment on above: Performed By: #### Claire HM7, IPB, MGO #### [facility] (DEFAULT) [address] [place] [address] 79729 GFR/1.73 sq M.predicted among non-blacks MDRD (S/P/Bld) [Vol rate/Area] 25 mL/min/{1.73_m2} Low >=60 [facility] Comment on above: Result Comment: Repo rted eGFR is based on the CKD-EPI 2020 equation using creatinine, age, and sex. Performed By: #### Claire HM7, IPB, MGO #### [facility] (DEFAULT) [address] [place] [address] 79537 Glucose [Mass/Vol] 78 mg/dL Normal 70-99 [facility] Comment on above: Performed By: #### Claire HMRosemary, IPB, MGO #### [facility] (DEFAULT) [address] [place] [address] 02822 Osmolality [Osmolality] 313 mosm/kg High 278-305 [facility] Comment on above: Performed By: #### Claire STAPLES, IPB, MGO #### [facility] (DEFAULT) [address] [place] [address] 36019 Potassium [Moles/Vol] 3.7 mmol/L Normal 3.5-5.0 [facility] Comment on above: Performed By: #### Claire HM7, IPB, MGO #### [facility] (DEFAULT) [address] [place] [address] 89358 Sodium [Moles/Vol] 145 mmol/L Normal 135-145 [facility] Comment on above: Performed By: #### Claire HM7, IPB, MGO #### [facility] (DEFAULT) [address] [place] [address] 92117 Urea nitrogen [Mass/Vol] 48 mg/dL High 7-25 [facility] Comment on above: Performed By: #### Claire HM7, IPB, MGO #### [facility] (DEFAULT) [address] [place] [address] 22416 Urea nitrogen/Creatinine [Mass ratio] 17 mg/mg Normal [facility] Comment on above: Performed By: #### C HM7, IPB, MGO #### [facility] (DEFAULT) [address] [place] [address] 71424 Anion gap [Moles/Vol] 15 mmol/L Normal 7-17 [facility] Comment on above: Performed By: #### C HM7, IPB, MGO #### [facility] (DEFAULT) [address] [place] [address] 37773 Chloride [Moles/Vol] 105 mmol/L Normal 98-108 [facility] Comment on above: Performed By: #### C HM7, IPB, MGO #### [facility] (DEFAULT) [address] [place] [address] 73323 CO2 [Moles/Vol] 26 mmol/L Normal 21-31 [facility] Comment on above: Performed By: #### C HM7, IPB, MGO #### [facility] (DEFAULT) [address] [place] [address] 97243 Creatinine [Mass/Vol] 3.01 mg/dL High 0.70-1.30 [facility] Comment on above: Performed By: #### C HM7, IPB, MGO #### [facility] (DEFAULT) [address] [place] [address] 80338 GFR/1.73 sq M.predicted among non-blacks MDRD (S/P/Bld) [Vol rate/Area] 23 mL/min/{1.73_m2} Low >=60 [facility] Comment on above: Result Comment: Repo rted eGFR is based on the CKD-EPI 2020 equation using creatinine, age, and sex. Performed By: #### C HM7, IPB, MGO #### [facility] (DEFAULT) [address] [place] [address] 53004 Glucose [Mass/Vol] 89 mg/dL Normal 70-99 [facility] Comment on above: Performed By: #### Claire HM7, IPB, MGO #### [facility] (DEFAULT) [address] [place] [address] 49276 Osmolality [Osmolality] 310 mosm/kg High 278-305 [facility] Comment on above: Performed By: #### Claire HM7, IPB, MGO #### [facility] (DEFAULT) [address] [place] [address] 08717 Potassium [Moles/Vol] 4.0 mmol/L Normal 3.5-5.0 [facility] Comment on above: Performed By: #### Claire HM7, IPB, MGO #### [facility] (DEFAULT) [address] [place] [address] 94825 Sodium [Moles/Vol] 142 mmol/L Normal 135-145 [facility] Comment on above: Performed By: #### Claire HM7, IPB, MGO #### [facility] (DEFAULT) [address] [place] [address] 16664 Urea nitrogen [Mass/Vol] 53 mg/dL High 7-25 [facility] Comment on above: Performed By: #### Claire HM7, IPB, MGO #### [facility] (DEFAULT) [address] [place] [address] 93917 Urea nitrogen/Creatinine [Mass ratio] 18 mg/mg Normal [facility] Comment on above: Performed By: #### Claire HM7, IPB, MGO #### [facility] (DEFAULT) [address] [place] [address] 99087 CHEM 7 (LYTES,BUN,CREA,GLUC) Ordered By: Donnell Barraza on 10-13-2024 Anion gap [Moles/Vol] 15 mmol/L 7 - 17 mmol/L [facility] Chloride [Moles/Vol] 105 mmol/L 98 - 10 8 mmol/L [facility] CO2 [Moles/Vol] 26 mmol/L 21 - 31 mmol/L [facility] Creatinine [Mass/Vol] 3.01 mg/dL High 0.70 - 1.30 mg/dL [facility] eGFR, CKD-EPI, Male 23 Low - PINF [facility] Comment on above: Reported eGFR is bas ed on the CKD-EPI 2020 equation using creatinine, age, and sex. Glucose [Mass/Vol] 89 mg/dL 70 - 99 mg/dL [facility] Interpretation and review of laboratory results Abnormal [facility] Osmolality Calc [Osmolality] 310 High [facility] Potassium [Moles/Vol] 4.0 mmol/L 3.5 - 5.0 mmol/L [facility] Sodium [Moles/Vol] 142 mmol/L 135 - 145 mmol/L [facility] Urea nitrogen [Mass/Vol] 53 mg/dL High 7 - 25 mg/dL [facility] Urea nitrogen/Creatinine [Mass ratio] 18 mg/mg [facility] GENERAL PROCEDUREOrdered By: Jennifer Lebron on 10-13-2024 Radiology Study observation (narrative) [facility] Work Phone: IONIZED CALCIUM, WHOLE BLOOD Ordered By: Negro Matamoros on 10-13-2024 Calcium.ionized (Bld) [Moles/Vol] 4.68 mg/dL 4.60 - 5.30 mg/dL [facility] Interpretation and review of laboratory results Normal [facility] IONIZED CALCIUM, WHOLE BLOOD on 10-13-2024 ICA 4.68 mg/dL Normal 4.60-5.30 [facility] Comment on above: Performed By: #### C HM7, IPB, MGO #### [facility] (DEFAULT) [address] [address] MAGNESIUMon 10-13-2024 Magnesium [Mass/Vol] 2.0 mg/dL 1.6 - 2 .6 mg/dL [facility] Magnesium [Mass/Vol] 2.0 mg/dL Normal 1.6-2.6 [facility] Comment on above: Performed By: #### ELEN GAMBINO, MGO #### [facility] (DEFAULT) [address] [place] [address] 71033 Magnesium [Mass/Vol] 2.1 mg/dL 1.6 - 2 .6 mg/dL [facility] Magnesium [Mass/Vol] 2.1 mg/dL Normal 1.6-2.6 [facility] Comment on above: Performed By: #### ELEN GAMBINO, MGO #### [facility] (DEFAULT) [address] [place] [address] No Panel Informationon 10-13 Interpretation and review of laboratory results Normal [facility] Interpretation and review of laboratory results Normal [facility] PHOSPHATE, INORGANICon 10-13 Phosphate [Mass/Vol] 4.3 mg/dL 2.2 - 4 .6 mg/dL [facility] Phosphorous 4.3 mg/dL Normal 2.2-4.6 [facility] Comment on above: Performed By: #### ELEN GAMBINO, MGO #### [facility] (DEFAULT) [address] [place] [address] 80833 Phosphate [Mass/Vol] 4.5 mg/dL 2.2 - 4 .6 mg/dL [facility] Phosphorous 4.5 mg/dL Normal 2.2-4.6 [facility] Comment on above: Performed By: #### Claire STAPLES, CASSIDYB, MGO #### [facility] (DEFAULT) [address] [place] [address] 85417 PLACEMENT NEPHROSTOMY CATHET ER PERCUTANEOUS W/ IMAGE GUIDANCEon 10-13-2024 PLACEMENT NEPHROSTOMY CATHETER PERCUTANEOUS W/ IMAGE GUIDANCE EXAM: IR PLACEMENT NEPHROSTOMY CATHETER PERCUTANEOUS W/ IMAGE GUIDANCE, 10/12/2024 19:17 PM CLINICAL INDICATIONS: 58-year-old male with history of obstructive uropathy presenting for bilateral nephrostomy tube placement. MEDICATIONS: 6:20 PM 10/12/24 fentaNYL (SUBLIMAZE) injection 0-300 mcg Ordered and Given 50 mcg Given Rate: 0 Route: Intravenous; 6:20 PM 10/12/24 midazolam (VERSED) injection 0-10 mg Ordered and Given 1 mg Given Rate: 0 Route: Intravenous; 6:28 PM 10/12/24 fentaNYL (SUBLIMAZE) injection 0-300 mcg Given 25 mcg Given Rate: 0 Route: Intravenous; 6:28 PM 10/12/24 midazolam (VERSED) injection 0-10 mg Given 0.5 mg Given Rate: 0 Route: Intravenous; 6:37 PM 10/12/24 diphenhydrAMINE (BENADRYL) injection Ordered and Given 50 mg Given Rate: 0 Route: Intravenous; 6:46 PM 10/12/24 Lidocaine 2 % injection 0-400 mg Ordered and Given 10 mg Given Rate: 0 Route: Infiltration; 6:46 PM 10/12/24 Iohexol (OMNIPAQUE) 300 MG/ML vial Ordered and Given 25 mL Given Rate: 0 Route: Intravenous; 6:52 PM 10/12/24 midazolam (VERSED) injection 0-10 mg Given 0.5 mg Given Rate: 0 Route: Intravenous; 7:01 PM 10/12/24 fentaNYL (SUBLIMAZE) injection 0-300 mcg Given 25 mcg Given Rate: 0 Route: Intravenous; TOTAL FLUORO TIME: 4.4 minutes OPERATORS: Jenniefr Lebron DO (attending), Miguel A Holloway MD (resident) CONSENT: Following discussion of the risks, benefits and alternatives of the procedure, written informed consent was obtained. SEDATION: I performed Moderate Sedation which included the presence of a nurse that assisted in monitoring the patient's level of consciousness and physiologic status. After administration of sedative medication(s), I spent 44 minutes of continuous nooh-ja-egxc time with the patient. COMPARISON: CT abdomen/pelvis dated 10/11/2024 TIME OUT: Prior to the procedure a time out was performed in the presence of the patient and all personnel involved in this case. The patient identity, procedure type, procedure side/site, and allergies were verified. Intravenous antibiotics were administered before and during the procedure. TECHNIQUE: Position: The patient was transferred to the IR laboratory and was positioned prone on the procedural table. The bilateral flank areas were prepped and draped using maximum sterile barrier technique. This consisted of cap, mask, hand hygiene, sterile gown and gloves, 2% Chlorhexidine solution for cutaneous antisepsis and occlusive sterile draping of the field. Left nephrostomy tube: After infiltration of local anesthesia and using direct ultrasound guidance, a 21G needle was advanced into a posterolateral calyx and an image was saved in the imaging archive system for documentation. Contrast was injected and an antegrade nephrostogram was performed. A Nitrex wire was advanced into the renal pelvis. The AccuStick set was advanced over the wire into the renal pelvis under fluoroscopic guidance. The wire, inner dilator and metal stiffener were removed. Contrast was injected to confirming positioning. An Amplatz wire was advanced into the renal pelvis. After dilation, a 10.2-Sudanese multipurpose nephrostomy drainage catheter was inserted into the renal pelvis. The locking pigtail was formed within the renal pelvis. Contrast was injected under fluoroscopy confirming positioning. The catheter was secured to the skin using two 2-0 Ethilon suture and was attached to a gravity drainage bag. A sterile dressing was placed on the skin surrounding the drain. Right nephrostomy tube: After infiltration of local anesthesia and using direct ultrasound guidance, a 21G needle was advanced into a posterolateral calyx and an image was saved in the imaging archive system for documentation. Contrast was injected and an antegrade nephrostogram was performed. A Nitrex wire was advanced into the renal pelvis. The AccuStick set was advanced over the wire into the renal pelvis under fluoroscopic guidance. The wire, inner dilator and metal stiffener were removed. Contrast was injected to confirming positioning. An Amplatz wire was advanced into the renal pelvis. After dilation, a 10.2-Sudanese multipurpose nephrostomy drainage catheter was inserted into the renal pelvis. The locking pigtail was formed within the renal pelvis. Contrast was injected under fluoroscopy confirming positioning. The catheter was secured to the skin using two 2-0 Ethilon suture and was attached to a gravity drainage bag. A sterile dressing was placed on the skin surrounding the drain. FINDINGS: Severe bilateral hydroureteronephrosis. Clear urine encountered. 10.2 Fr multipurpose drainage catheters inserted bilaterally with locking pigtail formed within the renal pelvises. No definite flow into the bladder was observed suggestive of distal ureteral obstruction. IMPRESSION: 1. Bilateral nephrostomy tube placement. Drain to gravity 2. Routine exchange in 8-10 weeks if still needed at that time. (more content not included)... Normal [facility] IMPRESSION: 1. Bilateral nephrostomy tube placement. Drain to gravity 2. Routine exchange in 8-10 weeks if still needed at that time. Jennifer Lebron DO was in the room and participated during all iyer portions of this procedure. I personally viewed and interpreted these images and I have reviewed and approved this report. OLOGY EXAM: IR PLACEMENT NEPHROSTOMY CATHETER PERCUTANEOUS W/ IMAGE GUIDANCE, 10/12/2024 19:17 PM CLINICAL INDICATIONS: 58-year-old male with history of obstructive uropathy presenting for bilateral nephrostomy tube placement. MEDICATIONS: 6:20 PM 10/12/24 fentaNYL (SUBLIMAZE) injection 0-300 mcg Ordered and Given 50 mcg Given Rate: 0 Route: Intravenous; 6:20 PM 10/12/24 midazolam (VERSED) injection 0-10 mg Ordered and Given 1 mg Given Rate: 0 Route: Intravenous; 6:28 PM 10/12/24 fentaNYL (SUBLIMAZE) injection 0-300 mcg Given 25 mcg Given Rate: 0 Route: Intravenous; 6:28 PM 10/12/24 midazolam (VERSED) injection 0-10 mg Given 0.5 mg Given Rate: 0 Route: Intravenous; 6:37 PM 10/12/24 diphenhydrAMINE (BENADRYL) injection Ordered and Given 50 mg Given Rate: 0 Route: Intravenous; 6:46 PM 10/12/24 Lidocaine 2 % injection 0-400 mg Ordered and Given 10 mg Given Rate: 0 Route: Infiltration; 6:46 PM 10/12/24 Iohexol (OMNIPAQUE) 300 MG/ML vial Ordered and Given 25 mL Given Rate: 0 Route: Intravenous; 6:52 PM 10/12/24 midazolam (VERSED) injection 0-10 mg Given 0.5 mg Given Rate: 0 Route: Intravenous; 7:01 PM 10/12/24 fentaNYL (SUBLIMAZE) injection 0-300 mcg Given 25 mcg Given Rate: 0 Route: Intravenous; TOTAL FLUORO TIME: 4.4 minutes OPERATORS: Jennifer Lebron DO (attending), Miguel A Holloway MD (resident) CONSENT: Following discussion of the risks, benefits and alternatives of the procedure, written informed consent was obtained. SEDATION: I performed Moderate Sedation which included the presence of a nurse that assisted in monitoring the patient's level of consciousness and physiologic status. After administration of sedative medication(s), I spent 44 minutes of continuous xnun-zw-hrvx time with the patient. COMPARISON: CT abdomen/pelvis dated 10/11/2024 TIME OUT: Prior to the procedure a time out was performed in the presence of the patient and all personnel involved in this case. The patient identity, procedure type, procedure side/site, and allergies were verified. Intravenous antibiotics were administered before and during the procedure. TECHNIQUE: Position: The patient was transferred to the IR laboratory and was positioned prone on the procedural table. The bilateral flank areas were prepped and draped using maximum sterile barrier technique. This consisted of cap, mask, hand hygiene, sterile gown and gloves, 2% Chlorhexidine solution for cutaneous antisepsis and occlusive sterile draping of the field. Left nephrostomy tube: After infiltration of local anesthesia and using direct ultrasound guidance, a 21G needle was advanced into a posterolateral calyx and an image was saved in the imaging archive system for documentation. Contrast was injected and an antegrade nephrostogram was performed. A Nitrex wire was advanced into the renal pelvis. The AccuStick set was advanced over the wire into the renal pelvis under fluoroscopic guidance. The wire, inner dilator and metal stiffener were removed. Contrast was injected to confirming positioning. An Amplatz wire was advanced into the renal pelvis. After dilation, a 10.2-Sudanese multipurpose nephrostomy drainage catheter was inserted into the renal pelvis. The locking pigtail was formed within the renal pelvis. Contrast was injected under fluoroscopy confirming positioning. The catheter was secured to the skin using two 2-0 Ethilon suture and was attached to a gravity drainage bag. A sterile dressing was placed on the skin surrounding the drain. Right nephrostomy tube: After infiltration of local anesthesia and using direct ultrasound guidance, a 21G needle was advanced into a posterolateral calyx and an image was saved in the imaging archive system for documentation. Contrast was injected and an antegrade nephrostogram was performed. A Nitrex wire was advanced into the renal pelvis. The AccuStick set was advanced over the wire into the renal pelvis under fluoroscopic guidance. The wire, inner dilator and metal stiffener were removed. Contrast was injected to confirming positioning. An Amplatz wire was advanced into the renal pelvis. After dilation, a 10.2-Sudanese multipurpose nephrostomy drainage catheter was inserted into the renal pelvis. The locking pigtail was formed within the renal pelvis. Contrast was injected under fluoroscopy confirming positioning. The catheter was secured to the skin using two 2-0 Ethilon suture and was attached to a gravity drainage bag. A sterile dressing was placed on the skin surrounding the drain. FINDINGS: Severe bilateral hydroureteronephrosis. Clear urine encountered. 10.2 Fr multipurpose drainage catheters inserted bilaterally with locking pigtail formed within the renal pelvises. No definite flow into the bladder was observed suggestive of distal ureteral obstruction. RADIOLOGY Jennifer Lebron DO - 10/13/2024 EXAM: IR PLACEMENT NEPHROSTOMY CATHETER PERCUTANEOUS W/ IMAGE GUIDANCE, 10/12/2024 19:17 PM CLINICAL INDICATIONS: 58-year-old male with history of obstructive uropathy presenting for bilateral nephrostomy tube placement. MEDICATIONS: 6:20 PM 10/12/24 fentaNYL (SUBLIMAZE) injection 0-300 mcg Ordered and Given 50 mcg Given Rate: 0 Route: Intravenous; 6:20 PM 10/12/24 midazolam (VERSED) injection 0-10 mg Ordered and Given 1 mg Given Rate: 0 Route: Intravenous; 6:28 PM 10/12/24 fentaNYL (SUBLIMAZE) injection 0-300 mcg Given 25 mcg Given Rate: 0 Route: Intravenous; 6:28 PM 10/12/24 midazolam (VERSED) injection 0-10 mg Given 0.5 mg Given Rate: 0 Route: Intravenous; 6:37 PM 10/12/24 diphenhydrAMINE (BENADRYL) injection Ordered and Given 50 mg Given Rate: 0 Route: Intravenous; 6:46 PM 10/12/24 Lidocaine 2 % injection 0-400 mg Ordered and Given 10 mg Given Rate: 0 Route: Infiltration; 6:46 PM 10/12/24 Iohexol (OMNIPAQUE) 300 MG/ML vial Ordered and Given 25 mL Given Rate: 0 Route: Intravenous; 6:52 PM 10/12/24 midazolam (VERSED) injection 0-10 mg Given 0.5 mg Given Rate: 0 Route: Intravenous; 7:01 PM 10/12/24 fentaNYL (SUBLIMAZE) injection 0-300 mcg Given 25 mcg Given Rate: 0 Route: Intravenous; TOTAL FLUORO TIME: 4.4 minutes OPERATORS: Jennifer Lebron DO (attending), Miguel A Holloway MD (resident) CONSENT: Following discussion of the risks, benefits and alternatives of the procedure, written informed consent was obtained. SEDATION: I performed Moderate Sedation which included the presence of a nurse that assisted in monitoring the patient's level of consciousness and physiologic status. After administration of sedative medication(s), I spent 44 minutes of continuous whjp-eu-ycez time with the patient. COMPARISON: CT abdomen/pelvis dated 10/11/2024 TIME OUT: Prior to the procedure a time out was performed in the presence of the patient and all personnel involved in this case. The patient identity, procedure type, procedure side/site, and allergies were verified. Intravenous antibiotics were administered before and during the procedure. TECHNIQUE: Position: The patient was transferred to the IR laboratory and was positioned prone on the procedural table. The bilateral flank areas were prepped and draped using maximum sterile barrier technique. This consisted of cap, mask, hand hygiene, sterile gown and gloves, 2% Chlorhexidine solution for cutaneous antisepsis and occlusive sterile draping of the field. Left nephrostomy tube: After infiltration of local anesthesia and using direct ultrasound guidance, a 21G needle was advanced into a posterolateral calyx and an image was saved in the imaging archive system for documentation. Contrast was injected and an antegrade nephrostogram was performed. A Nitrex wire was advanced into the renal pelvis. The AccuStick set was advanced over the wire into the renal pelvis under fluoroscopic guidance. The wire, inner dilator and metal stiffener were removed. Contrast was injected to confirming positioning. An Amplatz wire was advanced into the renal pelvis. After dilation, a 10.2-Sudanese multipurpose nephrostomy drainage catheter was inserted into the renal pelvis. The locking pigtail was formed within the renal pelvis. Contrast was injected under fluoroscopy confirming positioning. The catheter was secured to the skin using two 2-0 Ethilon suture and was attached to a gravity drainage bag. A sterile dressing was placed on the skin surrounding the drain. Right nephrostomy tube: After infiltration of local anesthesia and using direct ultrasound guidance, a 21G needle was advanced into a posterolateral calyx and an image was saved in the imaging archive system for documentation. Contrast was injected and an antegrade nephrostogram was performed. A Nitrex wire was advanced into the renal pelvis. The AccuStick set was advanced over the wire into the renal pelvis under fluoroscopic guidance. The wire, inner dilator and metal stiffener were removed. Contrast was injected to confirming positioning. An Amplatz wire was advanced into the renal pelvis. After dilation, a 10.2-Sudanese multipurpose nephrostomy drainage catheter was inserted into the renal pelvis. The locking pigtail was formed within the renal pelvis. Contrast was injected under fluoroscopy confirming positioning. The catheter was secured to the skin using two 2-0 Ethilon suture and was attached to a gravity drainage bag. A sterile dressing was placed on the skin surrounding the drain. FINDINGS: Severe bilateral hydroureteronephrosis. Clear urine encountered. 10.2 Fr multipurpose drainage catheters inserted bilaterally with locking pigtail formed within the renal pelvises. No definite flow into the bladder was observed suggestive of distal ureteral obstruction. IMPRESSION IMPRESS (more content not included)... [facility] URINE CULTUREOrdered By: Gely Estrada on 10-13-2024 Bacteria identified Cx Nom (Unsp spec) Growth [place] Bacteria identified Cx Nom (Unsp spec) GRAM-NEGATIVE BACILLUS Abnormal [facility] Comment on above: Susceptibilities not routinely performed. Interpretation and review of laboratory results Abnormal [facility] Urine Cultureon 10-13-2024 URC Normal [facility] Comment on above: Performed By: #### M [id number] ####[facility] [id number] [place], [place], [id number] [place] TYPE RECONFIRMATIONon 10-12-2024 ABO/RH(D) TYPE Positive [facility] ABO/RH(D) TYPE Positive Normal [facility] Comment on above: Performed By: #### T YPEC #### [place] (DEFAULT) [address] [place] [address] BLOOD CULTUREon 10-12-2024 Bacteria identified Cx Nom (Unsp spec) NO GROWTH DAY 5 OF 5 Normal [facility] Comment on above: Order Comment: 2 Bot tles (1 Set - consists of 1 Aerobic bottle and 1 Anaerobic bottle) -1st Peripheral DrawFor vacutainer method draw: Fill aerobic bottle first, then anaerobic Performed By: #### S URGP #### [place] (DEFAULT) [address] [place] [employer], [place] [id number] Order Comment: 2 Bot tles (1 Set - consists of 1 Aerobic bottle and 1 Anaerobic bottle) -1st Peripheral DrawFor vacutainer method draw: Fill aerobic bottle first, then anaerobicResults may be compromised due to LOW VOLUME of the BACT\ALERT bottle UNDER 8mLs, which can be associated with decreased sensitivity. The optimal blood volume is 8-10mLs per aerobic/anaerobic blood culture bottle. CALCIUMon 10-12-2024 Calcium [Mass/Vol] 9.5 mg/dL 8.6 - 10. 5 mg/dL [place] Calcium [Mass/Vol] 9.5 mg/dL Normal 8.6-10.5 [facility] Comment on above: Performed By: #### T YPEC #### [place] (DEFAULT) [address] [place] [address] CBC AND ELECTRONIC DIFFon Basophils (Bld) [#/Vol] 0.06 10*3/uL 0.00 - 0.09 K/uL [place] Basophils/100 WBC (Bld) 0.3 % [place] Differential cell count method Nom (Bld) Electronic Differential O [facility] Eosinophils (Bld) [#/Vol] K/uL 0.00 - 0.48 K/uL [place] Eosinophils/100 WBC (Bld) 0.1 % [place] Erythrocyte distribution width (RBC) [Ratio] 15.8 % High 10.9 - 14.3 % [place] Comment on above: This is an appended report. These results have been appended to a previously preliminary verified report. Hematocrit (Bld) [Volume fraction] 31.5 % Low 39.6 - 48.8 % [place] Comment on above: This is an appended report. These results have been appended to a previously preliminary verified report. Hemoglobin (Bld) [Mass/Vol] 10.1 g/dL Low 13.4 - 16.8 g/dL [place] Comment on above: This is an appended report. These results have been appended to a previously preliminary verified report. Immature granulocytes (Bld) [#/Vol] 0.33 10*3/uL High NINF - 0.07 K/uL [place] Immature granulocytes/100 WBC (Bld) 1.6 % [place] Interpretation and review of laboratory results Abnormal [place] Lymphocytes (Bld) [#/Vol] 0.36 10*3/uL Low 0.83 - 3.57 K/uL [place] Lymphocytes/100 WBC (Bld) 1.7 % [place] MCH (RBC) [Entitic mass] 29.9 pg 26.1 - 33.3 pg [place] Comment on above: This is an appended report. These results have been appended to a previously preliminary verified report. MCHC (RBC) [Mass/Vol] 32.1 g/dL 31.9 - 36.5 g/dL [place] Comment on above: This is an appended report. These results have been appended to a previously preliminary verified report. MCV (RBC) [Entitic vol] 93.2 fL 79.0 - 94.5 fL [place] Comment on above: This is an appended report. These results have been appended to a previously preliminary verified report. Monocytes (Bld) [#/Vol] 0.91 10*3/uL 0.24 - 0.93 K/uL [place] Monocytes/100 WBC (Bld) 4.4 % [place] Neutrophils (Bld) [#/Vol] 19.21 10*3/uL High 1.57 - 6.19 K/uL [place] Nucleated RBC/100 WBC (Bld) [Ratio] 0.0 % [facility] [place] Platelet mean volume (Bld) [Entitic vol] [place] Comment on above: Not measured Platelets (Bld) [#/Vol] 557 10*3/uL High 146 - 337 K/uL [place] Comment on above: This is an appended report. These results have been appended to a previously preliminary verified report. RBC (Bld) [#/Vol] 3.38 10*6/uL Low [facility] Comment on above: This is an appended report. These results have been appended to a previously preliminary verified report. Segmented neutrophils/100 WBC (Bld) 91.9 % [place] WBC (Bld) [#/Vol] 20.89 10*3/uL High 3.73 - 10.10 K/uL [place] Comment on above: This is an appended report. These results have been appended to a previously preliminary verified report. [place] Abs Eos Auto < Normal 0.00-0.48 [facility] Comment on above: Performed By: #### U [id number] #### [place] (DEFAULT) [address] [address] Basophils (Bld) [#/Vol] 0.06 10*3/uL Normal 0.00-0.09 [facility] Comment on above: Performed By: #### U [id number] #### [place] (DEFAULT) [address] [address] Basophils/100 WBC (Bld) 0.3 % Normal [facility] Comment on above: Performed By: #### U [id number] #### [place] (DEFAULT) [address] [address] DIFF STATUS Electronic Differential Normal [facility] Comment on above: Performed By: #### U [id number] #### [place] (DEFAULT) [address] [address] Eosinophils/100 WBC (Bld) 0.1 % Normal [facility] Comment on above: Performed By: #### U [id number] #### [place] (DEFAULT) [address] [address] Hematocrit (Bld) [Volume fraction] 31.5 % Low 39.6-48.8 [facility] Comment on above: Result Comment: This is an appended report. These results have been appended to a previously preliminary verified report. Performed By: #### U [id number] #### [place] (DEFAULT) [address] [address] Hemoglobin (Bld) [Mass/Vol] 10.1 g/dL Low 13.4-16.8 [facility] Comment on above: Result Comment: This is an appended report. These results have been appended to a previously preliminary verified report. Performed By: #### U [id number] #### [place] (DEFAULT) [address] [address] Immature Grans % 1.6 % Normal [facility] Comment on above: Performed By: #### U [id number] #### [place] (DEFAULT) [address] [address] Immature Grans Absolute 0.33 K/uL High <=0.07 [facility] Comment on above: Performed By: #### U [id number] #### [place] (DEFAULT) [address] [address] Lymphocytes (Bld) [#/Vol] 0.36 10*3/uL Low 0.83-3.57 [facility] Comment on above: Performed By: #### U [id number] #### U [facility] (DEFAULT) [address] [address] Lymphocytes/100 WBC (Bld) 1.7 % Normal [facility] Comment on above: Performed By: #### U [id number] #### [place] (DEFAULT) [address] [address] MCV (RBC) [Entitic vol] 93.2 fL Normal 79.0-94.5 [facility] Comment on above: Result Comment: This is an appended report. These results have been appended to a previously preliminary verified report. Performed By: #### U [id number] #### U [facility] (DEFAULT) [address] [address] Mean Cell Hgb 29.9 pg Normal 26.1-33.3 [facility] Comment on above: Result Comment: This is an appended report. These results have been appended to a previously preliminary verified report. Performed By: #### U [id number] #### [place] (DEFAULT) [address] [address] Mean Cell Hgb Conc 32.1 g/dL Normal 31.9-36.5 [facility] Comment on above: Result Comment: This is an appended report. These results have been appended to a previously preliminary verified report. Performed By: #### U [id number] #### [place] (DEFAULT) [address] [address] Mean Platelet Volume Normal [facility] Comment on above: Result Comment: Not measured Performed By: #### U [id number] #### [place] (DEFAULT) [address] [address] Monocytes (Bld) [#/Vol] 0.91 10*3/uL Normal 0.24-0.93 [facility] Comment on above: Performed By: #### U [id number] #### [place] (DEFAULT) [address] [address] Monocytes/100 WBC (Bld) 4.4 % Normal [facility] Comment on above: Performed By: #### U [id number] #### U [facility] (DEFAULT) [address] [address] Nucleated RBC 0.0 /100 WBC Normal <=0.2 [facility] Comment on above: Performed By: #### U [id number] #### U [facility] (DEFAULT) [address] [address] Platelets (Bld) [#/Vol] 557 10*3/uL High 146-337 [facility] Comment on above: Result Comment: This is an appended report. These results have been appended to a previously preliminary verified report. Performed By: #### U [id number] #### [place] (DEFAULT) [address] [address] RBC (Bld) [#/Vol] 3.38 10*6/uL Low 4.38-5.83 [facility] Comment on above: Result Comment: This is an appended report. These results have been appended to a previously preliminary verified report. Performed By: #### U [id number] #### [place] (DEFAULT) [address] [address] RBC Distribution 15.8 % High 10.9-14.3 [facility] Comment on above: Result Comment: This is an appended report. These results have been appended to a previously preliminary verified report. Performed By: #### U [id number] #### [place] (DEFAULT) [address] [address] Segs + Bands Auto 91.9 % Normal [facility] Comment on above: Performed By: #### U [id number] #### U [facility] (DEFAULT) [address] [address] Segs + Bands,Absolute Auto 19.21 K/uL High 1.57-6.19 [facility] Comment on above: Performed By: #### U [id number] #### [place] (DEFAULT) [address] [address] WBC (Bld) [#/Vol] 20.89 10*3/uL High 3.73-10.10 [facility] Comment on above: Result Comment: This is an appended report. These results have been appended to a previously preliminary verified report. Performed By: #### U [id number] #### [place] (DEFAULT) [address] [address] CHEM 7 (LYTES,BUN,CREA,GLUC) on 10-12-2024 Anion gap [Moles/Vol] 21 mmol/L High 7 - 17 mmol/L [place] Chloride [Moles/Vol] 99 mmol/L 98 - 10 8 mmol/L [place] CO2 [Moles/Vol] 25 mmol/L 21 - 31 mmol/L [place] Creatinine [Mass/Vol] 3.01 mg/dL High 0.70 - 1.30 mg/dL [place] eGFR, CKD-EPI, Male 23 Low - PINF [facility] Comment on above: Reported eGFR is bas ed on the CKD-EPI 2020 equation using creatinine, age, and sex. Glucose [Mass/Vol] 112 mg/dL High 70 - 99 mg/dL [place] Osmolality Calc [Osmolality] 312 High [place] Potassium [Moles/Vol] 5.6 mmol/L High 3.5 - 5.0 mmol/L [place] Comment on above: Specimen slightly he molyzed. Potassium results may be falsey elevated by more than 0.5 mmol/L. Consider recollection. Sodium [Moles/Vol] 139 mmol/L 135 - 145 mmol/L [place] Urea nitrogen [Mass/Vol] 60 mg/dL High 7 - 25 mg/dL [place] Urea nitrogen/Creatinine [Mass ratio] 20 mg/mg [place] Anion gap [Moles/Vol] 21 mmol/L High 7-17 [facility] Comment on above: Performed By: #### S URGP #### [place] (DEFAULT) [address] [place] [address] Chloride [Moles/Vol] 99 mmol/L Normal 98-108 [facility] Comment on above: Performed By: #### S URGP #### [place] (DEFAULT) [address] [place] [address] CO2 [Moles/Vol] 25 mmol/L Normal 21-31 [facility] Comment on above: Performed By: #### S URGP #### [place] (DEFAULT) [address] [place] [address] Creatinine [Mass/Vol] 3.01 mg/dL High 0.70-1.30 [facility] Comment on above: Performed By: #### S URGP #### U [facility] (DEFAULT) [address] [address] GFR/1.73 sq M.predicted among non-blacks MDRD (S/P/Bld) [Vol rate/Area] 23 mL/min/{1.73_m2} Low >=60 [facility] Comment on above: Result Comment: Repo rted eGFR is based on the CKD-EPI 2020 equation using creatinine, age, and sex. Performed By: #### S URGP #### U [facility] (DEFAULT) [address] [address] Glucose [Mass/Vol] 112 mg/dL High 70-99 [facility] Comment on above: Performed By: #### S URGP #### [facility] (DEFAULT) [address] [address] Osmolality [Osmolality] 312 mosm/kg High 278-305 [facility] Comment on above: Performed By: #### S URGP #### U [facility] (DEFAULT) [address] [place] [address] Potassium [Moles/Vol] 5.6 mmol/L High 3.5-5.0 [facility] Comment on above: Result Comment: Spec imen slightly hemolyzed. Potassium results may be falsey elevated by more than 0.5 mmol/L. Consider recollection. Performed By: #### S URGP #### [facility] (DEFAULT) [address] [place] [address] Sodium [Moles/Vol] 139 mmol/L Normal 135-145 [facility] Comment on above: Performed By: #### S URGP #### U [facility] (DEFAULT) [address] [place] [address] Urea nitrogen [Mass/Vol] 60 mg/dL High 7-25 [facility] Comment on above: Performed By: #### S URGP #### [place] (DEFAULT) [address] [place] [address] Urea nitrogen/Creatinine [Mass ratio] 20 mg/mg Normal [facility] Comment on above: Performed By: #### S URGP #### [place] (DEFAULT) [address] [place] [address] CREATININE SERUMon Creatinine [Mass/Vol] 3.06 mg/dL High 0.70 - 1.30 mg/dL [place] eGFR, CKD-EPI, Male 23 Low - PINF [facility] Comment on above: Reported eGFR is bas ed on the CKD-EPI 2021 equation using creatinine, age, and sex. Interpretation and review of laboratory results Abnormal [facility] Creatinine [Mass/Vol] 3.06 mg/dL High 0.70-1.30 [facility] Comment on above: Performed By: #### C REAB ####[place] (DEFAULT)[address] [place] [address] GFR/1.73 sq M.predicted among non-blacks MDRD (S/P/Bld) [Vol rate/Area] 23 mL/min/{1.73_m2} Low >=60 [facility] Comment on above: Result Comment: Repo rted eGFR is based on the CKD-EPI 202 equation using creatinine, age, and sex. Performed By: #### C REAB ####[place] (DEFAULT)[address] [place] [address] CREATININE,RANDOM URINEon Creatinine (24H U) [Mass/Vol] 55.45 mg/dL [place] Creatinine (U) [Mass/Vol] 55.45 mg/dL Normal [facility] Comment on above: Order Comment: The r eference range has not been established for random urine specimens. The test result should be integrated into the clinical context for interpretation. Performed By: #### S URGP #### [place] (DEFAULT) [address] [place] [address] EXTRA MICROon 10-12-2024 [place] GENERAL PROCEDUREon 10-12-20 Miguel A Holloway MD - 10/12/2024 7:11 PM EST PROCEDURE NOTE PROCEDURE PERFORMED BY: Attending Dr. Jennifer Lebron, Dr. Miguel A Holloway (fellow) PROCEDURE DATE: 10/12/24 7:11 PM PRE PROCEDURE DIAGNOSIS: 58 yr old man with history of bilateral obstructive uropathy presenting for bilateral nephrostomy tube placement. POST PROCEDURE DIAGNOSIS: 58 yr old man with history of bilateral obstructive uropathy presenting for bilateral nephrostomy tube placement. PROCEDURE: Bilateral nephrostomy tube placement (10 Fr MPD) FINDINGS: Severe bilateral hydroureteronephrosis. Clear urine encountered. 10 Fr MPD catheters with locking pigtail formed within the renal pelvises. No definite flow into the bladder was observed suggestive of distal ureteral obstruction. CONSENT: Informed consent was obtained prior to the procedure after discussion of the risks, benefits, and alternatives and expected outcomes were discussed with the patient; consent placed in chart. UNIVERSAL PROTOCOL: Preprocedure verification is complete- patient verified and consents confirmed. ANESTHESIA: Moderate sedation and local anesthetic ESTIMATED BLOOD LOSS: Minimal CONDITION: Stable. Patient tolerated procedure well. COMPLICATIONS: None. SPECIMEN: None IMPRESSION/PLAN: Bilateral nephrostomy tube placement. Drain to gravity Routine exchange in 8-10 weeks if still needed at that time. Thank you for allowing Interventional Radiology to participate in this patient's care. Miguel A Holloway MD Integrated Interventional [employer] Supervisor PGY-6 [place] GENERAL PROCEDUREOrdered By: Jennifer Lebron on 10-12-2024 [place] Work Phone: LACTATE, BLOODOrdered By: Teagan Jean on 10-12-2024 Interpretation and review of laboratory results Normal [place] Lactate [Moles/Vol] 1.3 mmol/L 0.5 - 1. 6 mmol/L [facility] LACTATE, BLOODon 12-24-2024 Lactate, Blood 1.3 mmol/L Normal 0.5-1.6 [facility] Comment on above: Performed By: #### S URGP #### [place] (DEFAULT) [address] [place] [address] LYTES (NA, K, CL) - URINE - RANDOMon 10-12-2024 Chloride (24H U) [Moles/Vol] 51 mmol/L [place] Potassium (24H U) [Moles/Vol] 39.9 mmol/L [place] Sodium (24H U) [Moles/Vol] 61 mmol/L [place] Sodium (U) [Moles/Vol] 61 mmol/L Normal [facility] Comment on above: Order Comment: The r eference range has not been established for random urine specimens. The test result should be integrated into the clinical context for interpretation. Performed By: #### S URGP #### [place] (DEFAULT) [address] [place] [address] Urine Chloride 51 mmol/L Normal [facility] Comment on above: Order Comment: The r eference range has not been established for random urine specimens. The test result should be integrated into the clinical context for interpretation. Performed By: #### S URGP #### [place] (DEFAULT) [address] [place] [address] Urine Potassium 39.9 mmol/L Normal [facility] Comment on above: Order Comment: The r eference range has not been established for random urine specimens. The test result should be integrated into the clinical context for interpretation. Performed By: #### S URGP #### [place] (DEFAULT) [address] [place] [address] MAGNESIUMon 10-12-2024 Magnesium [Mass/Vol] 2.3 mg/dL 1.6 - 2 .6 mg/dL [place] Magnesium [Mass/Vol] 2.3 mg/dL Normal 1.6-2.6 [facility] Comment on above: Performed By: #### T YPEC #### [place] (DEFAULT) [address] [place] [address] No Panel Informationon 10-12 The reference range has not been established for random urine specimens. The test result should be integrated into the clinical context for interpretation. [facility] Interpretation and review of laboratory results Abnormal [place] Interpretation and review of laboratory results Normal [facility] PHOSPHATE, INORGANICon 10-12 Phosphate [Mass/Vol] 6.1 mg/dL High 2.2 - 4 .6 mg/dL [place] Phosphorous 6.1 mg/dL High 2.2-4.6 [facility] Comment on above: Performed By: #### S URGP #### [place] (DEFAULT) [address] [place] [address] PLACEMENT NEPHROSTOMY CATHET ER PERCUTANEOUS W/ IMAGE GUIDANCEon 10-12-2024 Radiology Study observation (narrative) [place] PREALBUMINon 10-12-2024 Prealbumin [Mass/Vol] 12 mg/dL Low 17 - 3 4 mg/dL [place] Prealbumin [Mass/Vol] 12 mg/dL Low 17-34 [facility] Comment on above: Performed By: #### S URGP #### [place] (DEFAULT) [address] [place] [address] PT,INR,PTTon 10-12-2024 aPTT Coag (PPP) [Time] 28.2 s [facility] INR Coag (Bld) [Relative time] 1.2 {INR} High 0.9 - 1.1 [place] Interpretation and review of laboratory results Abnormal [place] PT Coag (PPP) [Time] 15.4 s High [facility] aPTT Coag (Bld) [Time] 28.2 s Normal 24.0-34.3 [facility] Comment on above: Performed By: #### C HM7, IPB, MGO #### [facility] (DEFAULT) [address] [place] [address] INR Coag (PPP) [Relative time] 1.2 {INR} High 0.9-1.1 [facility] Comment on above: Performed By: #### C HM7, IPB, MGO #### [place] (DEFAULT) [address] [place] [address] PT Coag (PPP) [Time] 15.4 s High 11.9-14.2 [facility] Comment on above: Performed By: #### C HM7, IPB, MGO #### [place] (DEFAULT) [address] [place] [address] Portable XR Chest Viewson IMPRESSION: Properly positioned left chest port. No pneumothorax. OLOGY EXAM: XR CHEST 1 VIE W PORTABLE, 10/12/2024 00:53 AM COMPARISON: No prior studies available for comparison. CLINICAL INDICATIONS: confirm port placement RELEVANT CLINICAL HISTORY: FINDINGS: (Adequate technique) Implanted Devices: Left chest port with its tip at cavoatrial junction. Thorax: No acute findings in the chest. RADIOLOGY Marie Espinoza MD - 10/12/2024 EXAM: XR CHEST 1 VIEW PORTABLE, 10/12/2024 00:53 AM COMPARISON: No prior studies available for comparison. CLINICAL INDICATIONS: confirm port placement RELEVANT CLINICAL HISTORY: FINDINGS: (Adequate technique) Implanted Devices: Left chest port with its tip at cavoatrial junction. Thorax: No acute findings in the chest. IMPRESSION IMPRESSION: Properly positioned left chest port. No pneumothorax. [place] Radiology Study observation (narrative) [place] Portable XR Chest ViewsOrder ed By: Marie Espinoza on 10-12-2024 [place] Work Phone: TYPE AND SCREENon 12-24-2024 ABO/RH(D) TYPE Positive [facility] Outdate Specimen 10/15/2024 23:59 OS [facility] ABO/RH(D) TYPE Positive Normal [facility] Comment on above: Performed By: #### X M #### [place] (DEFAULT) [address] [place] [address] Outdate Specimen 10/15/2024 23:59 Normal [facility] Comment on above: Performed By: #### X M #### [place] (DEFAULT) [address] [place] [address] URINALYSIS REFLEX TO CULTURE PERFORMABLEOrdered By: Eladio Allen on 10-12-2024 Appearance (U) Turbid Abnormal Clear [place] Bacteria LM Ql (Urine sed) PRESENT Abnormal ABSENT [place] Color (U) Yellow Yellow [facility] Epithelial cells.squamous LM Ql (Urine sed) 0-2/hpf 0-2/hpf, 3-5/hpf = [facility] Glucose Test strip (U) [Mass/Vol] Negative [facility] Interpretation and review of laboratory results Abnormal [facility] Ketones (U) [Mass/Vol] Negative Negative [facility] Leukocyte esterase Test strip Ql (U) Large Abnormal Negative [facility] Nitrite Ql (U) Negative Negative [facility] pH (U) 5.5 [pH] 5.0 - 7.0 [facility] Protein (U) [Mass/Vol] 30 mg/dL Abnormal Negative [facility] RBC (U) [#/Vol] Moderate Abnormal Negative [facility] RBC LM.HPF (Urine sed) [#/Area] 6-10 [facility] Specific gravity (U) [Rel density] 1.013 1.001 - 1.035 [facility] Urobilinogen (U) [Mass/Vol] 0.2 E.U./dL 0.2 E.U/dL, 1.0 E.U/dL [facility] WBC LM.HPF (Urine sed) [#/Area] /[HPF] Abnormal [facility] URINALYSIS REFLEX TO CULTURE PERFORMABLEon 10-12-2024 Appearance (U) Turbid Abnormal Clear [facility] Comment on above: Order Comment: For i ndwelling catheters, specimen collection is acceptable on catheter day 1 and 2 only. ? Performed By: #### U [id number] #### [place] (DEFAULT) [address] [place] [address] Bacteria PRESENT Abnormal ABSENT [facility] Comment on above: Order Comment: For i ndwelling catheters, specimen collection is acceptable on catheter day 1 and 2 only. ? Performed By: #### U [id number] #### [place] (DEFAULT) [address] [address] Blood Urine Moderate Abnormal Negative [facility] Comment on above: Order Comment: For i ndwelling catheters, specimen collection is acceptable on catheter day 1 and 2 only. ? Performed By: #### U [id number] #### [place] (DEFAULT) [address] [place] [address] Color (U) Yellow Normal Yellow [facility] Comment on above: Order Comment: For i ndwelling catheters, specimen collection is acceptable on catheter day 1 and 2 only. ? Performed By: #### U [id number] #### [place] (DEFAULT) [address] [place] [address] Glucose Ql (U) Negative Normal Negative [facility] Comment on above: Order Comment: For i ndwelling catheters, specimen collection is acceptable on catheter day 1 and 2 only. ? Performed By: #### U [id number] #### [place] (DEFAULT) [address] [address] Ketones Ql (U) Negative Normal Negative [facility] Comment on above: Order Comment: For i ndwelling catheters, specimen collection is acceptable on catheter day 1 and 2 only. ? Performed By: #### U [id number] #### [place] (DEFAULT) [address] [place] [address] Leukocyte esterase Test strip Ql (U) Large Abnormal Negative [facility] Comment on above: Order Comment: For i ndwelling catheters, specimen collection is acceptable on catheter day 1 and 2 only. ? Performed By: #### U [id number] #### [place] (DEFAULT) [address] [place] [address] Nitrites Urine Negative Normal Negative [facility] Comment on above: Order Comment: For i ndwelling catheters, specimen collection is acceptable on catheter day 1 and 2 only. ? Performed By: #### U [id number] #### [place] (DEFAULT) [address] [place] [address] pH (U) 5.5 [pH] Normal 5.0-7.0 [facility] Comment on above: Order Comment: For i ndwelling catheters, specimen collection is acceptable on catheter day 1 and 2 only. ? Performed By: #### U [id number] #### [place] (DEFAULT) [address] [place] [address] Protein Urine 30 mg/dL Abnormal Negative [facility] Comment on above: Order Comment: For i ndwelling catheters, specimen collection is acceptable on catheter day 1 and 2 only. ? Performed By: #### U [id number] #### [place] (DEFAULT) [address] [place] [address] RBC Urine 6-10 Abnormal 0-2 [facility] Comment on above: Order Comment: For i ndwelling catheters, specimen collection is acceptable on catheter day 1 and 2 only. ? Performed By: #### U [id number] #### [place] (DEFAULT) [address] [place] [address] Specific [place] Urine 1.013 Normal 1.001 -1.03 5 [facility] Comment on above: Order Comment: For i ndwelling catheters, specimen collection is acceptable on catheter day 1 and 2 only. ? Performed By: #### U [id number] #### [place] (DEFAULT) [address] [place] [address] Squamous/Epithelial Cells 0-2/hpf Normal 0-2/hpf, 3-5/hpf = 1+ [facility] Comment on above: Order Comment: For i ndwelling catheters, specimen collection is acceptable on catheter day 1 and 2 only. ? Performed By: #### U [id number] #### U [facility] (DEFAULT) [address] [address] Urobilinogen Urine 0.2 E.U./dL Normal 0.2 E.U/dL, 1.0 E.U/dL [facility] Comment on above: Order Comment: For i ndwelling catheters, specimen collection is acceptable on catheter day 1 and 2 only. ? Performed By: #### U [id number] #### U [facility] (DEFAULT) [address] [address] WBC LM.HPF (Urine sed) [#/Area] /[HPF] Abnormal 0 - 5 [facility] Comment on above: Order Comment: For i ndwelling catheters, specimen collection is acceptable on catheter day 1 and 2 only. ? Performed By: #### U [id number] #### U [facility] (DEFAULT) [address] [address] URINE CULTUREon 10-12-2024 Bacteria identified Cx Nom (U) Normal [facility] Comment on above: Order Comment: For i ndwelling catheters, specimen collection is acceptable on catheter day 1 and 2 only. Barcenas top vacutainer. Urine must be to the fill line to process (4mls). If minimum volume, send urine in a yellow top vacutainer tube.For indwelling catheters, specimen collection is acceptable on catheter day 1 and 2 only. ? Result Comment: Grow 167GRAM NEGATIVE BACILLIGRAM NEGATIVE BACILLI <10,000 CFU/mL Gram Negative Bacilli Susceptibilities not routinely performed. Performed By: #### S URGP #### U [facility] (DEFAULT) [address] [address] XR ABDOMEN 1 VIEWon 10-12-20 24 XR ABDOMEN 1 VIEW EXAM: XR ABDOMEN 1 V IEW, 10/12/2024 16:07 PM COMPARISON: October 12 2024 CLINICAL INDICATIONS: Confirm ng FINDINGS: Tubes: NG tube projects over the stomach with tip extending towards the gastric fundus. Bowel gas pattern: Persistent gaseous dilatation throughout the small bowel. No visible free air. Abnormal calcifications/Radiopaciti es: None. Bones: No acute abnormality. Other findings: None. IMPRESSION: Enteric tube in the stomach with tip extending towards the gastric fundus. Persistent gaseous dilatation of the small bowel. Normal [facility] XR ABDOMEN 1 VIEW EXAM: XR ABDOMEN 1 V IEW, 10/12/2024 12:15 PM COMPARISON: Compared to prior study dated October 12, 2024 CLINICAL INDICATIONS: Confirm ng placement FINDINGS/IMPRESSION: Tubes: NG tube tip and sidehole are in the stomach. Bowel gas pattern: Slight interval increase in small bowel dilatation in the visualized upper abdomen. No visible free air. Normal [facility] XR ABDOMEN 1 VIEW PORTABLEon 10-12-2024 XR ABDOMEN 1 VIEW PORTABLE EXAM: XR ABDOMEN 1 VIEW PORTABLE, 10/12/2024 04:25 AM COMPARISON: Compared to prior study dated October 11, 2024 CLINICAL INDICATIONS: c/f obstructive pattern FINDINGS/IMPRESSION: Tubes: None. Bowel gas pattern: Gaseous dilatation of multiple loops of small bowel as on October 11, 2024. Bowel gas and stool identified within the colon. Findings may represent ileus or partial small bowel obstruction. No visible free air. Normal [facility] XR Abdomen Single viewon IMPRESSION: Enteric tube in the stomach with tip extending towards the gastric fundus. Persistent gaseous dilatation of the small bowel. OLOGY EXAM: XR ABDOMEN 1 V IEW, 10/12/2024 16:07 PM COMPARISON: October 12 2024 CLINICAL INDICATIONS: Confirm ng FINDINGS: Tubes: NG tube projects over the stomach with tip extending towards the gastric fundus. Bowel gas pattern: Persistent gaseous dilatation throughout the small bowel. No visible free air. Abnormal calcifications/Radiopaciti es: None. Bones: No acute abnormality. Other findings: None. RADIOLOGY Sunny Winter M D - 10/12/2024 EXAM: XR ABDOMEN 1 VIEW, 10/12/2024 16:07 PM COMPARISON: October 12 2024 CLINICAL INDICATIONS: Confirm ng FINDINGS: Tubes: NG tube projects over the stomach with tip extending towards the gastric fundus. Bowel gas pattern: Persistent gaseous dilatation throughout the small bowel. No visible free air. Abnormal calcifications/Radiopaciti es: None. Bones: No acute abnormality. Other findings: None. IMPRESSION IMPRESSION: Enteric tube in the stomach with tip extending towards the gastric fundus. Persistent gaseous dilatation of the small bowel. [place] [facility] Study observation (narrative) [place] FINDINGS/IMPRESSION: Tubes: NG tube tip and sidehole are in the stomach. Bowel gas pattern: Slight interval increase in small bowel dilatation in the visualized upper abdomen. No visible free air. OLOGY EXAM: XR ABDOMEN 1 V IEW, 10/12/2024 12:15 PM COMPARISON: Compared to prior study dated October 12, 2024 CLINICAL INDICATIONS: Confirm ng placement RADIOLOGY Charles Armendariz MD - 10/12/2024 EXAM: XR ABDOMEN 1 VIEW, 10/12/2024 12:15 PM COMPARISON: Compared to prior study dated October 12, 2024 CLINICAL INDICATIONS: Confirm ng placement IMPRESSION FINDINGS/IMPRESSION: Tubes: NG tube tip and sidehole are in the stomach. Bowel gas pattern: Slight interval increase in small bowel dilatation in the visualized upper abdomen. No visible free air. [facility] Rad[facility] Study observation (narrative) [place] FINDINGS/IMPRESSION: Tubes: None. Bowel gas pattern: Gaseous dilatation of multiple loops of small bowel as on October 11, 2024. Bowel gas and stool identified within the colon. Findings may represent ileus or partial small bowel obstruction. No visible free air. OLOGY EXAM: XR ABDOMEN 1 V IEW PORTABLE, 10/12/2024 04:25 AM COMPARISON: Compared to prior study dated October 11, 2024 CLINICAL INDICATIONS: c/f obstructive pattern RADIOLOGY Charles Armendariz MD - 10/12/2024 EXAM: XR ABDOMEN 1 VIEW PORTABLE, 10/12/2024 04:25 AM COMPARISON: Compared to prior study dated October 11, 2024 CLINICAL INDICATIONS: c/f obstructive pattern IMPRESSION FINDINGS/IMPRESSION: Tubes: None. Bowel gas pattern: Gaseous dilatation of multiple loops of small bowel as on October 11, 2024. Bowel gas and stool identified within the colon. Findings may represent ileus or partial small bowel obstruction. No visible free air. [place] [facility] Study observation (narrative) [place] XR Abdomen Single viewOrdere d By: Sunny Winter on 10-12-2024 [place] Work Phone: XR Abdomen Single viewOrdere d By: Charles Armendariz on 10-12-2024 [place] Work Phone: XR CHEST 1 VIEW PORTABLEon 1 12-13-2023 XR CHEST 1 VIEW PORTABLE EXAM: XR CHEST 1 VIEW PORTABLE, 10/12/2024 00:53 AM COMPARISON: No prior studies available for comparison. CLINICAL INDICATIONS: confirm port placement RELEVANT CLINICAL HISTORY: FINDINGS: (Adequate technique) Implanted Devices: Left chest port with its tip at cavoatrial junction. Thorax: No acute findings in the chest. IMPRESSION: Properly positioned left chest port. No pneumothorax. Normal [facility] Abdomen/Pel W ORAL Cont Only on 10-11-2024 Abdomen/Pel W ORAL Cont Only Normal [facility] Blood manual differential co mment interpretation (narrative result)Ordered By: Guy Ho on 10-11-2024 Manual differential comment Leonard (Bld) [Interp] COMMENT [facility] Comment on above: NEUTROPHILIA.LYMPHOP ENIA. CBC W/Diff, Automatedon 12- SMEAR COMMENT COMMENT Normal [facility] Comment on above: Result Comment: NEUT ROPHILIA.LYMPHOPENIA. Performed By: #### L 100.0100, L504.2610, L500.4050 ####[facility] [address] [place], [address] Chest PA and Lateralon 10-11 Chest PA and Lateral Normal [facility] Comprehensive Metabolic Prof ilon 10-11-2024 Albumin [Mass/Vol] 2.5 g/dL Low 3.2-5.0 [facility] Comment on above: Order Comment: 1 Performed By: #### L 100.0100, L504.2610, L500.4050 ####[facility] [address] [place], [address] Albumin/Globulin [Mass ratio] 0.4 {ratio} Low 0.9-2.4 [facility] Comment on above: Order Comment: 1 Performed By: #### L 100.0100, L504.2610, L500.4050 ####[facility] [address] [place], [address] ALK P 122 U/L High 45-117 [facility] Comment on above: Order Comment: 1 Performed By: #### L 100.0100, L504.2610, L500.4050 ####[facility] [address] [place], [address] ALT [Catalytic activity/Vol] 28 U/L Normal 16-61 [facility] Comment on above: Order Comment: 1 Performed By: #### L 100.0100, L504.2610, L500.4050 ####[facility] [address] [place], [address] AST [Catalytic activity/Vol] 15 U/L Normal 15-37 [facility] Comment on above: Order Comment: 1 Performed By: #### L 100.0100, L504.2610, L500.4050 ####[facility] [address] [place], [address] Bilirubin [Mass/Vol] 0.40 mg/dL Normal 0.20-1.00 [facility] Comment on above: Order Comment: 1 Result Comment: For patients on eltrombopag therapy, use of Dimension [place] TBIL is not recommended. Performed By: #### L 100.0100, L504.2610, L500.4050 ####[facility] [address] [place], [address] BUN/CRE 19.8 RATIO Normal 10-20 [facility] Comment on above: Order Comment: 1 Performed By: #### L 100.0100, L504.2610, L500.4050 ####[facility] [address] [place], [address] CA,Total 10.1 mg/dL Normal 8.5-10.1 [facility] Comment on above: Order Comment: 1 Performed By: #### L 100.0100, L504.2610, L500.4050 ####[facility] [address] [place], [address] Chloride [Moles/Vol] 100 mmol/L Normal 98-107 [facility] Comment on above: Order Comment: 1 Performed By: #### L 100.0100, L504.2610, L500.4050 ####[facility] [address] [place], [address] CO2 [Moles/Vol] 25.0 mmol/L Normal 21.0-32.0 [facility] Comment on above: Order Comment: 1 Performed By: #### L 100.0100, L504.2610, L500.4050 ####[facility] [address] [place], [address] Creatinine [Mass/Vol] 3.24 mg/dL High 0.70-1.30 [facility] Comment on above: Order Comment: 1 Result Comment: The validity of the calculated GFR GFRAA in patients over70 years has not been determined. Clinical correlation isessential. Performed By: #### L 100.0100, L504.2610, L500.4050 ####[facility] [address] [place], [address] ECRCL 18.02 ml/min Normal [facility] Comment on above: Order Comment: 1 Performed By: #### L 100.0100, L504.2610, L500.4050 ####[facility] [address] [place], [address] EST GFR - AA 25 mL/min Low >60 [facility] Comment on above: Order Comment: 1 Result Comment: Afri can [place] GFR Calc Performed By: #### L 100.0100, L504.2610, L500.4050 ####[facility] [address] [place], [address] GAP 9 Normal 5-15 [facility] Comment on above: Order Comment: 1 Performed By: #### L 100.0100, L504.2610, L500.4050 ####[facility] [address] [place], [address] GFR/1.73 sq M.predicted among non-blacks MDRD (S/P/Bld) [Vol rate/Area] 21 mL/min/{1.73_m2} Low >60 [facility] Comment on above: Order Comment: 1 Result Comment: Non- GFR Calc Performed By: #### L 100.0100, L504.2610, L500.4050 ####[facility] [address] [place], [address] Globulin (S) [Mass/Vol] 6.1 g/dL High 2.2-4.2 [facility] Comment on above: Order Comment: 1 Performed By: #### L 100.0100, L504.2610, L500.4050 ####[facility] [address] [place], [address] Glucose [Mass/Vol] 132 mg/dL High 74-106 [facility] Comment on above: Order Comment: 1 Result Comment: Fast ing Glucose result greater than or equal to 126 mg/dLsuggests DIABETES MELLITUS per A.D.A. criteria. Performed By: #### L 100.0100, L504.2610, L500.4050 ####[facility] [address] [place], [address] Potassium [Moles/Vol] 4.6 mmol/L Normal 3.5-5.1 [facility] Comment on above: Order Comment: 1 Performed By: #### L 100.0100, L504.2610, L500.4050 ####[facility] [address] [place], [address] Sodium [Moles/Vol] 134 mmol/L Low 136-145 [facility] Comment on above: Order Comment: 1 Performed By: #### L 100.0100, L504.2610, L500.4050 ####[facility] [address] [place], [address] T PROT 8.6 g/dL High 6.4-8.2 [facility] Comment on above: Order Comment: 1 Performed By: #### L 100.0100, L504.2610, L500.4050 ####[facility] [address] [place], [address] Urea nitrogen [Mass/Vol] 64 mg/dL High 7-18 [facility] Comment on above: Order Comment: 1 Performed By: #### L 100.0100, L504.2610, L500.4050 ####[facility] [address] [place], [address] Emergency Department Summary on 10-11-2024 Emergency Department Summary Normal [facility] LDHon 10-11-2024 LDH 101 U/L Normal 87-241 [facility] Comment on above: Order Comment: 1 Performed By: #### L 100.0100, L504.2610, L500.4050 ####[facility] [address] [place], [address] Oncology Visit Reporton 09-20 Oncology Visit Report Normal [facility] Urinalysis, Completeon 10-11 BACTERIA 2+ /hpf Normal None Seen [facility] Comment on above: Order Comment: LOUANN CTOR TO SPECIFY Performed By: #### L 400.0001 ####[facility] [address] [place], [address] EPI,SQUAMOUS 0-5 SEEN Normal 0-5 [facility] Comment on above: Order Comment: LOUANN CTOR TO SPECIFY Performed By: #### L 400.0001 ####[facility] [address] [place], [address] Mucus Ql (Urine sed) 1+ /hpf Normal [facility] Comment on above: Order Comment: LOUANN CTOR TO SPECIFY Performed By: #### L 400.0001 ####[facility] [address] [place], [address] RBC 0-5 SEEN Normal 0-5 [facility] Comment on above: Order Comment: LOUANN CTOR TO SPECIFY Performed By: #### L 400.0001 ####[facility] [address] [place], [address] WBC 50-100 SEEN Normal 0-5 [facility] Comment on above: Order Comment: LOUANN CTOR TO SPECIFY Performed By: #### L 400.0001 ####[facility] [address] [place], [address] MRI RECTUM WITHOUT AND WITH CONTRASTon 10-07-2024 MRI RECTUM WITHOUT AND WITH CONTRAST EXAM: MRI RECTUM WITHOUT AND WITH CONTRAST, 10/06/2024 16:52 PM CLINICAL INDICATIONS: rectal cancer s/p chemoradiation C20:Malignant neoplasm of rectum COMPARISON: CT abdomen pelvis from May 20, 2024 TECHNIQUE: Multiplanar, multisequence MRI scanning of the rectum was performed before and after IV contrast administration. FINDINGS: Gastrointestinal: Postoperative changes from low anterior resection with rectal stump and left lower quadrant colostomy. Ostomy is only seen on the wider ktwuq-rh-bbso images. In the upper aspect of the rectal stump, there is a polypoid lesion measuring 1.8 x 1.6 x 1.3 cm (/; 01/12), previously 3.5 x 2.5 cm. This mass restricts diffusion (/). This presumably corresponds with the area seen on endoscopy, which was biopsy-proven rectal adenocarcinoma. The signal abnormality associated with this tumor extends to the anterior rectal wall with suspected tiny areas of extension beyond the wall (/). Perirectal fluid collections with adjacent enhancement and internal diffusion restriction, concerning for abscesses. The first is more inferior and measures 3.0 x 1.8 x 2.7 cm (13/; 3/24), previously 2.8 x 1.3 x 4.4 cm. This appears to communicate with the upper rectal stump (/). A second collection measures 2.1 x 1.1 x 2.0 cm (13/16; 3/), and was either not well delineated or not present previously. There is extensive scarring and inflammation near the upper rectum with associated tethering, which may be due to prior surgery and radiation as well as a component of inflammatory changes from the abscesses. Lymph nodes: No definite lymphadenopathy Bladder: Underdistended. There is thickening of both distal ureters () with upstream partially visualized bilateral hydroureteronephrosis. Other pelvic organs: Prostatic heterogeneity, probably treatment related. Body wall: Postoperative changes with partially visualized ostomy. Bones: Heterogeneous marrow signal, nonspecific. No definite osseous lesion. IMPRESSION: 1. The polypoid lesion in the rectal stump, which represents biopsy-proven recurrent rectal adenocarcinoma, has decreased in size compared to the May 2024 CT. 2. No lymphadenopathy. 3. Perirectal abscesses, one of which is stable, though the other is new or increased in conspicuity. The more inferior collection appears to communicate with the upper rectal stump. 4. Scarring and inflammation near the superior aspect of the rectal stump, likely representing a combination of postoperative scarring, posttreatment changes, and reactive inflammation from the abscess. 5. Left lower quadrant colostomy, not fully evaluated on this exam. Normal [facility] BRCon 09-27-2024 RC Normal [facility] Comment on above: Result Comment: [id number] OP RC TRANSFUSED 09/28/24 1047 Performed By: #### B RC, BTS ####[facility] [address] [place], [address] Basic Metabolic Profile (BMP )on 09-27-2024 BUN Normal 7-18 [facility] Comment on above: Result Comment: DUPL ICATE ORDER TO INTERNAL ORDER Performed By: #### L 500.2500 ####[facility] [address] [place], [address] BUN/CRE Normal 10-20 [facility] Comment on above: Result Comment: DUPL ICATE ORDER TO INTERNAL ORDER Performed By: #### L 500.2500 ####[facility] [address] [place], [address] CA,Total Normal 8.5-10.1 [facility] Comment on above: Result Comment: DUPL ICATE ORDER TO INTERNAL ORDER Performed By: #### L 500.2500 ####[facility] [address] [place], [address] CL Normal 98-107 [facility] Comment on above: Result Comment: DUPL ICATE ORDER TO INTERNAL ORDER Performed By: #### L 500.2500 ####[facility] [address] [place], [address] CO2 Normal 21.0-32.0 [facility] Comment on above: Result Comment: DUPL ICATE ORDER TO INTERNAL ORDER Performed By: #### L 500.2500 ####[facility] [address] [place], [address] CREAT,SERUM Normal 0.70-1.30 [facility] Comment on above: Result Comment: DUPL ICATE ORDER TO INTERNAL ORDER Performed By: #### L 500.2500 ####[facility] [address] [place], [address] EST GFR Normal >60 [facility] Comment on above: Result Comment: DUPL ICATE ORDER TO INTERNAL ORDER Performed By: #### L 500.2500 ####[facility] [address] [place], [address] EST GFR - AA Normal >60 [facility] Comment on above: Result Comment: DUPL ICATE ORDER TO INTERNAL ORDER Performed By: #### L 500.2500 ####[facility] [address] [place], [address] GAP Normal 5-15 [facility] Comment on above: Result Comment: DUPL ICATE ORDER TO INTERNAL ORDER Performed By: #### L 500.2500 ####[facility] [address] [place], [address] GLU Normal 74-106 [facility] Comment on above: Result Comment: DUPL ICATE ORDER TO INTERNAL ORDER Performed By: #### L 500.2500 ####[facility] [address] [place], [address] Potassium Normal 3.5-5.1 [facility] Comment on above: Result Comment: DUPL ICATE ORDER TO INTERNAL ORDER Performed By: #### L 500.2500 ####[facility] [address] [place], [address] Basic Metabolic Profile (BMP) Normal 136-145 [facility] Comment on above: Result Comment: DUPL ICATE ORDER TO INTERNAL ORDER Performed By: #### L 500.2500 ####[facility] [address] [place], [address] CBC W/Diff, Automatedon 12-0 9-2023 Absolute Lymph 0.35 X10 3/uL Low 0.83-4.51 [facility] Comment on above: Performed By: #### L 100.0100, L500.4050 ####[facility] [address] [place], [address] Absolute Neut 11.1 X10 3/uL High 2.0-7.7 [facility] Comment on above: Performed By: #### L 100.0100, L500.4050 ####[facility] [address] [place], [address] Basophils/100 WBC (Bld) 0.5 % Normal 0-1 [facility] Comment on above: Performed By: #### L 100.0100, L500.4050 ####[facility] [address] [place], [address] Eosinophils/100 WBC (Bld) 1.0 % Normal 0-5 [facility] Comment on above: Performed By: #### L 100.0100, L500.4050 ####[facility] [address] [place], [address] Erythrocyte distribution width (RBC) [Ratio] 16.3 % High 11.6-14.6 [facility] Comment on above: Performed By: #### L 100.0100, L500.4050 ####[facility] [address] [place], [address] Hematocrit (Bld) [Volume fraction] 22.0 % Low 40-54 [facility] Comment on above: Performed By: #### L 100.0100, L500.4050 ####[facility] [address] [place], [address] Hemoglobin (Bld) [Mass/Vol] 6.9 g/dL Low 13.0-16.5 [facility] Comment on above: Performed By: #### L 100.0100, L500.4050 ####[facility] [address] [place], [address] IG% 2.100 High 0.0-0.9 [facility] Comment on above: Result Comment: IG% - Immature Granulocytes (promyelocytes, myelocytes andmetamyelocytes) > 1% indicates that a LEFT SHIFT is Present. Performed By: #### L 100.0100, L500.4050 ####[facility] [address] [place], [address] Lymphocytes/100 WBC (Bld) 2.7 % Low 19-41 [facility] Comment on above: Performed By: #### L 100.0100, L500.4050 ####[facility] [address] [place], [address] MCH (RBC) [Entitic mass] 29.2 pg Normal 27.0-32.0 [facility] Comment on above: Performed By: #### L 100.0100, L500.4050 ####[facility] [address] [place], [address] MCHC (RBC) [Mass/Vol] 31.4 g/dL Low 32-36 [facility] Comment on above: Performed By: #### L 100.0100, L500.4050 ####[facility] [address] [place], [address] MCV (RBC) [Entitic vol] 93.2 fL Normal 80-94 [facility] Comment on above: Performed By: #### L 100.0100, L500.4050 ####[facility] [address] [place], [address] Monocytes/100 WBC (Bld) 6.8 % Normal 0-10 [facility] Comment on above: Performed By: #### L 100.0100, L500.4050 ####[facility] [address] [place], [address] Neutrophils/100 WBC (Bld) 86.9 % High 47-70 [facility] Comment on above: Performed By: #### L 100.0100, L500.4050 ####[facility] [address] [place], [address] Nucleated RBC (Bld) [#/Vol] 0 10*3/uL Normal 0-5 [facility] Comment on above: Performed By: #### L 100.0100, L500.4050 ####[facility] [address] [place], [address] Platelet mean volume (Bld) [Entitic vol] 8.6 fL Normal 6.2-12.0 [facility] Comment on above: Performed By: #### L 100.0100, L500.4050 ####[facility] [address] [place], [address] Platelets (Bld) [#/Vol] 562 10*3/uL High 150-450 [facility] Comment on above: Performed By: #### L 100.0100, L500.4050 ####[facility] [address] [place], [address] RBC (Bld) [#/Vol] 2.36 10*6/uL Low 4.6-6.2 [facility] Comment on above: Performed By: #### L 100.0100, L500.4050 ####[facility] [address] [place], [address] RDW SD 55.6 fl High 35.1-43.9 [facility] Comment on above: Performed By: #### L 100.0100, L500.4050 ####[facility] [address] [place], [address] WBC (Bld) [#/Vol] 12.8 10*3/uL High 4.4-11.0 [facility] Comment on above: Performed By: #### L 100.0100, L500.4050 ####[facility] [address] [place], [address] Comprehensive Metabolic Prof ilon 09-27-2024 Albumin [Mass/Vol] 2.2 g/dL Low 3.2-5.0 [facility] Comment on above: Performed By: #### L 100.0100, L500.4050 ####[facility] [address] [place], [address] Albumin/Globulin [Mass ratio] 0.4 {ratio} Low 0.9-2.4 [facility] Comment on above: Performed By: #### L 100.0100, L500.4050 ####[facility] [address] [place], [address] ALK P 134 U/L High 45-117 [facility] Comment on above: Performed By: #### L 100.0100, L500.4050 ####[facility] [address] [place], [address] ALT [Catalytic activity/Vol] 40 U/L Normal 16-61 [facility] Comment on above: Performed By: #### L 100.0100, L500.4050 ####[facility] [address] [place], [address] AST [Catalytic activity/Vol] 20 U/L Normal 15-37 [facility] Comment on above: Performed By: #### L 100.0100, L500.4050 ####[facility] [address] [place], [address] Bilirubin [Mass/Vol] 0.30 mg/dL Normal 0.20-1.00 [facility] Comment on above: Result Comment: For patients on eltrombopag therapy, use of Dimension [place] TBIL is not recommended. Performed By: #### L 100.0100, L500.4050 ####[facility] [address] [place], [address] BUN/CRE 21.6 RATIO High 10-20 [facility] Comment on above: Performed By: #### L 100.0100, L500.4050 ####[facility] [address] [place], [address] CA,Total 9.4 mg/dL Normal 8.5-10.1 [facility] Comment on above: Performed By: #### L 100.0100, L500.4050 ####[facility] [address] [place], [address] Chloride [Moles/Vol] 103 mmol/L Normal 98-107 [facility] Comment on above: Performed By: #### L 100.0100, L500.4050 ####[facility] [address] [place], [address] CO2 [Moles/Vol] 28.0 mmol/L Normal 21.0-32.0 [facility] Comment on above: Performed By: #### L 100.0100, L500.4050 ####[facility] [address] [place], [address] Creatinine [Mass/Vol] 2.32 mg/dL High 0.70-1.30 [facility] Comment on above: Result Comment: The validity of the calculated GFR GFRAA in patients over70 years has not been determined. Clinical correlation isessential. Performed By: #### L 100.0100, L500.4050 ####[facility] [address] [place], [address] ECRCL 25.26 ml/min Normal [facility] Comment on above: Performed By: #### L 100.0100, L500.4050 ####[facility] [address] [place], [address] EST GFR - AA 37 mL/min Low >60 [facility] Comment on above: Result Comment: Afri can Chilean GFR Calc Performed By: #### L 100.0100, L500.4050 ####[facility] [address] [place], [address] GAP 6 Normal 5-15 [facility] Comment on above: Performed By: #### L 100.0100, L500.4050 ####[facility] [address] [place], [address] GFR/1.73 sq M.predicted among non-blacks MDRD (S/P/Bld) [Vol rate/Area] 31 mL/min/{1.73_m2} Low >60 [facility] Comment on above: Result Comment: Non- GFR Calc Performed By: #### L 100.0100, L500.4050 ####[facility] [address] [place], [address] Globulin (S) [Mass/Vol] 5.4 g/dL High 2.2-4.2 [facility] Comment on above: Performed By: #### L 100.0100, L500.4050 ####[facility] [address] [place], [address] Glucose [Mass/Vol] 140 mg/dL High 74-106 [facility] Comment on above: Result Comment: Fast ing Glucose result greater than or equal to 126 mg/dLsuggests DIABETES MELLITUS per A.D.A. criteria. Performed By: #### L 100.0100, L500.4050 ####[facility] [address] [place], [address] Potassium [Moles/Vol] 4.0 mmol/L Normal 3.5-5.1 [facility] Comment on above: Performed By: #### L 100.0100, L500.4050 ####[facility] [address] [place], [address] Sodium [Moles/Vol] 138 mmol/L Normal 136-145 [facility] Comment on above: Performed By: #### L 100.0100, L500.4050 ####[facility] [address] [place], [address] T PROT 7.6 g/dL Normal 6.4-8.2 [facility] Comment on above: Performed By: #### L 100.0100, L500.4050 ####[facility] [address] [place], [address] Urea nitrogen [Mass/Vol] 50 mg/dL High 7-18 [facility] Comment on above: Performed By: #### L 100.0100, L500.4050 ####[facility] [address] [place], [address] Ferritinon 09-27-2024 Ferritin [Mass/Vol] 1681 ng/mL High 26-388 [facility] Comment on above: Order Comment: PLEAS E ADD TO BLOOD IN LAB THANK YOU!!! Performed By: #### L 503.6030, L503.6550 ####[facility] [address] [place], [address] Ferritin measurementOrdered By: Rubi Mercedes on 09-27-2024 Ferritin [Mass/Vol] 1681 ng/mL High 26-388 [facility] Iron measurement (mass/mass) Ordered By: Rubi Mercedes on 09-27-2024 Iron (Unsp spec) [Mass/Mass] 26 ug/dL Low 65-175 [facility] Iron+Iron Binding Capacityon 09-27-2024 Iron [Mass/Vol] 26 ug/dL Low 65-175 [facility] Comment on above: Order Comment: PLEAS E ADD TO BLOOD IN LAB THANK YOU!!! Performed By: #### L 503.6030, L503.6550 ####[facility] [address] [place], [address] IRON SATURATION 17.8 Normal 15.0-55.0 [facility] Comment on above: Order Comment: PLEAS E ADD TO BLOOD IN LAB THANK YOU!!! Performed By: #### L 503.6030, L503.6550 ####[facility] [address] [place], [address] TIBC 146 ug/dL Low 250-450 [facility] Comment on above: Order Comment: PLEAS E ADD TO BLOOD IN LAB THANK YOU!!! Performed By: #### L 503.6030, L503.6550 ####[facility] [address] [place], [address] Oncology Visit Reporton Oncology Visit Report Normal [facility] Serum or plasma iron saturat ion measurement (mass fraction)Ordered By: Rubi Mercedes on 09-27-2024 Iron saturation [Mass fraction] 17.8 % 15.0-55.0 [facility] Type AND Screenon 09-27-2024 ABO and Rh group Nom (Bld) Blood group A Rh(D) positive Normal [facility] Comment on above: Order Comment: N111/20 @[id number] Performed By: #### B RC, BTS ####[facility] [address] [place], [address] Basic Metabolic Profile (BMP )on 09-24-2024 BUN/CRE 21.1 RATIO High 10-20 [facility] Comment on above: Performed By: #### L 500.2500 ####[facility] [address] [place], [address] CA,Total 9.3 mg/dL Normal 8.5-10.1 [facility] Comment on above: Performed By: #### L 500.2500 ####[facility] [address] [place], [address] Chloride [Moles/Vol] 102 mmol/L Normal 98-107 [facility] Comment on above: Performed By: #### L 500.2500 ####[facility] [address] [place], [address] CO2 [Moles/Vol] 27.0 mmol/L Normal 21.0-32.0 [facility] Comment on above: Performed By: #### L 500.2500 ####[facility] [address] [place], [address] Creatinine [Mass/Vol] 2.61 mg/dL High 0.70-1.30 [facility] Comment on above: Result Comment: The validity of the calculated GFR GFRAA in patients over70 years has not been determined. Clinical correlation isessential. Performed By: #### L 500.2500 ####[facility] [address] [place] [address] ECRCL 22.17 ml/min Normal [facility] Comment on above: Performed By: #### L 500.2500 ####[facility] [address] [place], [address] EST GFR - AA 33 mL/min Low >60 [facility] Comment on above: Result Comment: Afri can Chilean GFR Calc Performed By: #### L 500.2500 ####[facility] [address] [place] [id number] GAP 6 Normal 5-15 [facility] Comment on above: Performed By: #### L 500.2500 ####[facility] [address] [place], [address] GFR/1.73 sq M.predicted among non-blacks MDRD (S/P/Bld) [Vol rate/Area] 27 mL/min/{1.73_m2} Low >60 [facility] Comment on above: Result Comment: Non- GFR Calc Performed By: #### L 500.2500 ####[facility] [address] [place], [address] Glucose [Mass/Vol] 125 mg/dL High 74-106 [facility] Comment on above: Result Comment: Fast ing Glucose result from 100 to 125 mg/dLsuggests IMPAIRED HOMEOSTASIS per A.D.A. criteria. Performed By: #### L 500.2500 ####[facility] [address] [place], [address] Potassium [Moles/Vol] 4.5 mmol/L Normal 3.5-5.1 [facility] Comment on above: Performed By: #### L 500.2500 ####[facility] [address] [place], [address] Sodium [Moles/Vol] 135 mmol/L Low 136-145 [facility] Comment on above: Performed By: #### L 500.2500 ####[facility] [address] [place], [address] Urea nitrogen [Mass/Vol] 55 mg/dL High 7-18 [facility] Comment on above: Performed By: #### L 500.2500 ####[facility] [address] [place], [address] CBC W/Diff, Automatedon 11-2 -2023 Absolute Lymph 0.20 X10 3/uL Low 0.83-4.51 [facility] Comment on above: Performed By: #### L 500.4050, L100.0100 ####[facility] [address] [place], [address] Absolute Neut 13.5 X10 3/uL High 2.0-7.7 [facility] Comment on above: Performed By: #### L 500.4050, L100.0100 ####[facility] [address] [place], [address] Basophils/100 WBC (Bld) 0.3 % Normal 0-1 [facility] Comment on above: Performed By: #### L 500.4050, L100.0100 ####[facility] [address] [place], [address] Eosinophils/100 WBC (Bld) 0.3 % Normal 0-5 [facility] Comment on above: Performed By: #### L 500.4050, L100.0100 ####[facility] [address] [place], [address] Erythrocyte distribution width (RBC) [Ratio] 16.4 % High 11.6-14.6 [facility] Comment on above: Performed By: #### L 500.4050, L100.0100 ####[facility] [address] [place], [address] Hematocrit (Bld) [Volume fraction] 22.8 % Low 40-54 [facility] Comment on above: Performed By: #### L 500.4050, L100.0100 ####[facility] [address] [place], [address] Hemoglobin (Bld) [Mass/Vol] 7.3 g/dL Low 13.0-16.5 [facility] Comment on above: Performed By: #### L 500.4050, L100.0100 ####[facility] [address] [place], [address] IG% 1.500 High 0.0-0.9 [facility] Comment on above: Result Comment: IG% - Immature Granulocytes (promyelocytes, myelocytes andmetamyelocytes) > 1% indicates that a LEFT SHIFT is Present. Performed By: #### L 500.4050, L100.0100 ####[facility] [address] [place], [address] Lymphocytes/100 WBC (Bld) 1.3 % Low 19-41 [facility] Comment on above: Performed By: #### L 500.4050, L100.0100 ####[facility] [address] [place], [address] MCH (RBC) [Entitic mass] 29.2 pg Normal 27.0-32.0 [facility] Comment on above: Performed By: #### L 500.4050, L100.0100 ####[facility] [address] [place], [address] MCHC (RBC) [Mass/Vol] 32.0 g/dL Normal 32-36 [facility] Comment on above: Performed By: #### L 500.4050, L100.0100 ####[facility] [address] [place], [address] MCV (RBC) [Entitic vol] 91.2 fL Normal 80-94 [facility] Comment on above: Performed By: #### L 500.4050, L100.0100 ####[facility] [address] [place], [address] Monocytes/100 WBC (Bld) 6.2 % Normal 0-10 [facility] Comment on above: Performed By: #### L 500.4050, L100.0100 ####[facility] [address] [place], [address] Neutrophils/100 WBC (Bld) 90.4 % High 47-70 [facility] Comment on above: Performed By: #### L 500.4050, L100.0100 ####[facility] [address] [place], [address] Nucleated RBC (Bld) [#/Vol] 0 10*3/uL Normal 0-5 [facility] Comment on above: Performed By: #### L 500.4050, L100.0100 ####[facility] [address] [place], [address] Platelet mean volume (Bld) [Entitic vol] 8.2 fL Normal 6.2-12.0 [facility] Comment on above: Performed By: #### L 500.4050, L100.0100 ####[facility] [address] [place], [address] Platelets (Bld) [#/Vol] 585 10*3/uL High 150-450 [facility] Comment on above: Performed By: #### L 500.4050, L100.0100 ####[facility] [address] [place], [address] RBC (Bld) [#/Vol] 2.50 10*6/uL Low 4.6-6.2 [facility] Comment on above: Performed By: #### L 500.4050, L100.0100 ####[facility] [address] [place], [address] RDW SD 55.0 fl High 35.1-43.9 [facility] Comment on above: Performed By: #### L 500.4050, L100.0100 ####[facility] [address] [place], [address] WBC (Bld) [#/Vol] 15.0 10*3/uL High 4.4-11.0 [facility] Comment on above: Performed By: #### L 500.4050, L100.0100 ####[facility] [address] [place], [address] Comprehensive Metabolic Prof ilon 09-13-2024 Albumin [Mass/Vol] 2.1 g/dL Low 3.2-5.0 [facility] Comment on above: Performed By: #### L 500.4050, L100.0100 ####[facility] [address] [place], [address] Albumin/Globulin [Mass ratio] 0.4 {ratio} Low 0.9-2.4 [facility] Comment on above: Performed By: #### L 500.4050, L100.0100 ####[facility] [address] [place], [address] ALK P 160 U/L High 45-117 [facility] Comment on above: Performed By: #### L 500.4050, L100.0100 ####[facility] [address] [place], [address] ALT [Catalytic activity/Vol] 40 U/L Normal 16-61 [facility] Comment on above: Performed By: #### L 500.4050, L100.0100 ####[facility] [address] [place], [address] AST [Catalytic activity/Vol] 17 U/L Normal 15-37 [facility] Comment on above: Performed By: #### L 500.4050, L100.0100 ####[facility] [address] [place], [address] Bilirubin [Mass/Vol] 0.30 mg/dL Normal 0.20-1.00 [facility] Comment on above: Result Comment: For patients on eltrombopag therapy, use of Dimension [place] TBIL is not recommended. Performed By: #### L 500.4050, L100.0100 ####[facility] [address] [place], [address] BUN/CRE 18.3 RATIO Normal 10-20 [facility] Comment on above: Performed By: #### L 500.4050, L100.0100 ####[facility] [address] [place], [address] CA,Total 9.0 mg/dL Normal 8.5-10.1 [facility] Comment on above: Performed By: #### L 500.4050, L100.0100 ####[facility] [address] [place], [address] Chloride [Moles/Vol] 106 mmol/L Normal 98-107 [facility] Comment on above: Performed By: #### L 500.4050, L100.0100 ####[facility] [address] [place], [address] CO2 [Moles/Vol] 26.0 mmol/L Normal 21.0-32.0 [facility] Comment on above: Performed By: #### L 500.4050, L100.0100 ####[facility] [address] [place], [address] Creatinine [Mass/Vol] 2.35 mg/dL High 0.70-1.30 [facility] Comment on above: Result Comment: The validity of the calculated GFR GFRAA in patients over70 years has not been determined. Clinical correlation isessential. Performed By: #### L 500.4050, L100.0100 ####[facility] [address] [place], [address] ECRCL 27.12 ml/min Normal [facility] Comment on above: Performed By: #### L 500.4050, L100.0100 ####[facility] [address] [place], [address] EST GFR - AA 37 mL/min Low >60 [facility] Comment on above: Result Comment: Afri can [place]an GFR Calc Performed By: #### L 500.4050, L100.0100 ####[facility] [address] [place], [address] GAP 7 Normal 5-15 [facility] Comment on above: Performed By: #### L 500.4050, L100.0100 ####[facility] [address] [place], [address] GFR/1.73 sq M.predicted among non-blacks MDRD (S/P/Bld) [Vol rate/Area] 30 mL/min/{1.73_m2} Low >60 [facility] Comment on above: Result Comment: Non- GFR Calc Performed By: #### L 500.4050, L100.0100 ####[facility] [address] [place], [address] Globulin (S) [Mass/Vol] 5.1 g/dL High 2.2-4.2 [facility] Comment on above: Performed By: #### L 500.4050, L100.0100 ####[facility] [address] [place], [address] Glucose [Mass/Vol] 125 mg/dL High 74-106 [facility] Comment on above: Result Comment: Fast ing Glucose result from 100 to 125 mg/dLsuggests IMPAIRED HOMEOSTASIS per A.D.A. criteria. Performed By: #### L 500.4050, L100.0100 ####[facility] [address] [place], [address] Potassium [Moles/Vol] 3.7 mmol/L Normal 3.5-5.1 [facility] Comment on above: Performed By: #### L 500.4050, L100.0100 ####[facility] [address] [place], [address] Sodium [Moles/Vol] 138 mmol/L Normal 136-145 [facility] Comment on above: Performed By: #### L 500.4050, L100.0100 ####[facility] [address] [place], [address] T PROT 7.2 g/dL Normal 6.4-8.2 [facility] Comment on above: Performed By: #### L 500.4050, L100.0100 ####[facility] [address] [place], [address] Urea nitrogen [Mass/Vol] 43 mg/dL High 7-18 [facility] Comment on above: Performed By: #### L 500.4050, L100.0100 ####[facility] [address] [place], [address] Ferritinon 09-13-2024 Ferritin [Mass/Vol] 1896 ng/mL High 26-388 [facility] Comment on above: Order Comment: PLEAS E ADD ON TO BLOOD IN LAB. THANK YOU!!N Performed By: #### L 503.6030, L506.0250, L503.0105, L503.6550 ####[facility] [address] [place], [address] Folates, (Folic Acid)on 08-21 FOLATES 27.50 ng/mL Normal 3.1-55.4 [facility] Comment on above: Order Comment: PLEAS E ADD ON TO BLOOD IN LAB. THANK YOU!!N Performed By: #### L 503.6030, L506.0250, L503.0105, L503.6550 ####[facility] [address] [place], [address] Iron+Iron Binding Capacityon 09-13-2024 Iron [Mass/Vol] 12 ug/dL Low 65-175 [facility] Comment on above: Order Comment: PLEAS E ADD ON TO BLOOD IN LAB. THANK YOU!!N Performed By: #### L 503.6030, L506.0250, L503.0105, L503.6550 ####[facility] [address] [place], [address] IRON SATURATION 8.6 Low 15.0-55.0 [facility] Comment on above: Order Comment: PLEAS E ADD ON TO BLOOD IN LAB. THANK YOU!!N Performed By: #### L 503.6030, L506.0250, L503.0105, L503.6550 ####[facility] [address] [place], [address] TIBC 140 ug/dL Low 250-450 [facility] Comment on above: Order Comment: PLEAS E ADD ON TO BLOOD IN LAB. THANK YOU!!N Performed By: #### L 503.6030, L506.0250, L503.0105, L503.6550 ####[facility] [address] [place], [address] Oncology Visit Reporton 08-21 Oncology Visit Report Normal [facility] Vitamin B12on 09-13-2024 Cobalamin (Vitamin B12) [Mass/Vol] 887 pg/mL Normal 211-911 [facility] Comment on above: Order Comment: PLEAS E ADD ON TO BLOOD IN LAB. THANK YOU!! Performed By: #### L 503.6030, L506.0250, L503.0105, L503.6550 ####[facility] [address] [place], [address] Vitamin B12 measurementOrder ed By: Guy Ho on 09-13-2024 Cobalamin (Vitamin B12) [Mass/Vol] 887 pg/mL 211-911 [facility] CBC W/Diff, Automatedon 07-21 PATH REV Reviewed Normal [facility] Comment on above: Result Comment: Neut rophilic leukocytosis.Normocytic anemia.Clinical correlation necessary.Nithin Matthew M.D. 08/17/24 AMENDED REPORT 08/17/24 1412 PATH REV previously reported as: February daniel Performed By: #### L 100.0100, L500.2500 ####[facility] [address] [place], [address] Ferritinon 08-17-2024 Ferritin [Mass/Vol] 2185 ng/mL High 26-388 [facility] Comment on above: Order Comment: PLEAS E ADD ON TO BLOOD IN LAB. THANK YOU!!! Performed By: #### L 503.6550, L503.6030 ####[facility] [address] [place], [address] Iron+Iron Binding Capacityon 08-17-2024 Iron [Mass/Vol] 19 ug/dL Low 65-175 [facility] Comment on above: Order Comment: PLEAS E ADD ON TO BLOOD IN LAB. THANK YOU!!! Performed By: #### L 503.6550, L503.6030 ####[facility] [address] [place], [address] IRON SATURATION 9.4 Low 15.0-55.0 [facility] Comment on above: Order Comment: PLEAS E ADD ON TO BLOOD IN LAB. THANK YOU!!! Performed By: #### L 503.6550, L503.6030 ####[facility] [address] [place], [address] TIBC 202 ug/dL Low 250-450 [facility] Comment on above: Order Comment: PLEAS E ADD ON TO BLOOD IN LAB. THANK YOU!!! Performed By: #### L 503.6550, L503.6030 ####[facility] [address] [place], [address] Radiation Oncology Visiton 1 Radiation Oncology Visit Normal [facility] Radiation Oncology Visit Normal [facility] Basic Metabolic Profile (BMP )on 08-16-2024 BUN/CRE 25.7 RATIO High 10-20 [facility] Comment on above: Performed By: #### L 100.0100, L500.2500 ####[facility] [address] [place], [address] CA,Total 9.1 mg/dL Normal 8.5-10.1 [facility] Comment on above: Performed By: #### L 100.0100, L500.2500 ####[facility] [address] [place], [address] Chloride [Moles/Vol] 100 mmol/L Normal 98-107 [facility] Comment on above: Performed By: #### L 100.0100, L500.2500 ####[facility] [address] [place], [address] CO2 [Moles/Vol] 29.0 mmol/L Normal 21.0-32.0 [facility] Comment on above: Performed By: #### L 100.0100, L500.2500 ####[facility] [address] [place], [address] Creatinine [Mass/Vol] 1.44 mg/dL High 0.70-1.30 [facility] Comment on above: Result Comment: The validity of the calculated GFR GFRAA in patients over70 years has not been determined. Clinical correlation isessential. Performed By: #### L 100.0100, L500.2500 ####[facility] [address] [place], [address] ECRCL 44.26 ml/min Normal [facility] Comment on above: Performed By: #### L 100.0100, L500.2500 ####[facility] [address] [place], [address] EST GFR - AA 65 mL/min Normal >60 [facility] Comment on above: Result Comment: Afri can [place]an GFR Calc Performed By: #### L 100.0100, L500.2500 ####[facility] [address] [place], [address] GAP 9 Normal 5-15 [facility] Comment on above: Performed By: #### L 100.0100, L500.2500 ####[facility] [address] [place], [address] GFR/1.73 sq M.predicted among non-blacks MDRD (S/P/Bld) [Vol rate/Area] 53 mL/min/{1.73_m2} Low >60 [facility] Comment on above: Result Comment: Non- GFR Calc Performed By: #### L 100.0100, L500.2500 ####[facility] [address] [place], [address] Glucose [Mass/Vol] 123 mg/dL High 74-106 [facility] Comment on above: Result Comment: Fast ing Glucose result from 100 to 125 mg/dLsuggests IMPAIRED HOMEOSTASIS per A.D.A. criteria. Performed By: #### L 100.0100, L500.2500 ####[facility] [address] [place], [address] Potassium [Moles/Vol] 4.3 mmol/L Normal 3.5-5.1 [facility] Comment on above: Performed By: #### L 100.0100, L500.2500 ####[facility] [address] [place], [address] Sodium [Moles/Vol] 138 mmol/L Normal 136-145 [facility] Comment on above: Performed By: #### L 100.0100, L500.2500 ####[facility] [address] [place], [address] Urea nitrogen [Mass/Vol] 37 mg/dL High 7-18 [facility] Comment on above: Performed By: #### L 100.0100, L500.2500 ####[facility] [address] [place], [address] Oncology Visit Reporton 07-21 Oncology Visit Report Normal [facility] Radiation Oncology Visiton 1 Radiation Oncology Visit Normal [facility] CBC W/Diff, Automatedon 07-21 Absolute Lymph 0.19 X10 3/uL Low 0.83-4.51 [facility] Comment on above: Performed By: #### L 500.4050, L100.0100 ####[facility] [address] [place], [address] Absolute Neut 7.2 X10 3/uL Normal 2.0-7.7 [facility] Comment on above: Performed By: #### L 500.4050, L100.0100 ####[facility] [address] [place], [address] Basophils/100 WBC (Bld) 0.5 % Normal 0-1 [facility] Comment on above: Performed By: #### L 500.4050, L100.0100 ####[facility] [address] [place], [address] Eosinophils/100 WBC (Bld) 0.7 % Normal 0-5 [facility] Comment on above: Performed By: #### L 500.4050, L100.0100 ####[facility] [address] [place], [address] Erythrocyte distribution width (RBC) [Ratio] 14.6 % Normal 11.6-14.6 [facility] Comment on above: Performed By: #### L 500.4050, L100.0100 ####[facility] [address] [place], [address] Hematocrit (Bld) [Volume fraction] 30.7 % Low 40-54 [facility] Comment on above: Performed By: #### L 500.4050, L100.0100 ####[facility] [address] [place], [address] Hemoglobin (Bld) [Mass/Vol] 10.0 g/dL Low 13.0-16.5 [facility] Comment on above: Performed By: #### L 500.4050, L100.0100 ####[facility] [address] [place], [address] IG% 0.700 Normal 0.0-0.9 [facility] Comment on above: Result Comment: IG% - Immature Granulocytes (promyelocytes, myelocytes andmetamyelocytes) > 1% indicates that a LEFT SHIFT is Present. Performed By: #### L 500.4050, L100.0100 ####[facility] [address] [place], [address] Lymphocytes/100 WBC (Bld) 2.2 % Low 19-41 [facility] Comment on above: Performed By: #### L 500.4050, L100.0100 ####[facility] [address] [place], [address] MCH (RBC) [Entitic mass] 29.3 pg Normal 27.0-32.0 [facility] Comment on above: Performed By: #### L 500.4050, L100.0100 ####[facility] [address] [place], [address] MCHC (RBC) [Mass/Vol] 32.6 g/dL Normal 32-36 [facility] Comment on above: Performed By: #### L 500.4050, L100.0100 ####[facility] [address] [place], [address] MCV (RBC) [Entitic vol] 90.0 fL Normal 80-94 [facility] Comment on above: Performed By: #### L 500.4050, L100.0100 ####[facility] [address] [place], [address] Monocytes/100 WBC (Bld) 12.8 % High 0-10 [facility] Comment on above: Performed By: #### L 500.4050, L100.0100 ####[facility] [address] [place], [address] Neutrophils/100 WBC (Bld) 83.1 % High 47-70 [facility] Comment on above: Performed By: #### L 500.4050, L100.0100 ####[facility] [address] [place], [address] Nucleated RBC (Bld) [#/Vol] 0 10*3/uL Normal 0-5 [facility] Comment on above: Performed By: #### L 500.4050, L100.0100 ####[facility] [address] [place], [address] Platelet mean volume (Bld) [Entitic vol] 8.0 fL Normal 6.2-12.0 [facility] Comment on above: Performed By: #### L 500.4050, L100.0100 ####[facility] [address] [place], [address] Platelets (Bld) [#/Vol] 306 10*3/uL Normal 150-450 [facility] Comment on above: Performed By: #### L 500.4050, L100.0100 ####[facility] [address] [place], [address] RBC (Bld) [#/Vol] 3.41 10*6/uL Low 4.6-6.2 [facility] Comment on above: Performed By: #### L 500.4050, L100.0100 ####[facility] [address] [place], [address] RDW SD 46.5 fl High 35.1-43.9 [facility] Comment on above: Performed By: #### L 500.4050, L100.0100 ####[facility] [address] [place], [address] WBC (Bld) [#/Vol] 8.7 10*3/uL Normal 4.4-11.0 [facility] Comment on above: Performed By: #### L 500.4050, L100.0100 ####[facility] [address] [place], [address] Comprehensive Metabolic Prof ilon 08-09-2024 Albumin [Mass/Vol] 2.4 g/dL Low 3.2-5.0 [facility] Comment on above: Performed By: #### L 500.4050, L100.0100 ####[facility] [address] [place], [address] Albumin/Globulin [Mass ratio] 0.5 {ratio} Low 0.9-2.4 [facility] Comment on above: Performed By: #### L 500.4050, L100.0100 ####[facility] [address] [place], [address] ALK P 90 U/L Normal 45-117 [facility] Comment on above: Performed By: #### L 500.4050, L100.0100 ####[facility] [address] [place], [address] ALT [Catalytic activity/Vol] 21 U/L Normal 16-61 [facility] Comment on above: Performed By: #### L 500.4050, L100.0100 ####[facility] [address] [place], [address] AST [Catalytic activity/Vol] 20 U/L Normal 15-37 [facility] Comment on above: Performed By: #### L 500.4050, L100.0100 ####[facility] [address] [place], [address] Bilirubin [Mass/Vol] 0.40 mg/dL Normal 0.20-1.00 [facility] Comment on above: Result Comment: For patients on eltrombopag therapy, use of Dimension [place] TBIL is not recommended. Performed By: #### L 500.4050, L100.0100 ####[facility] [address] [place], [address] BUN/CRE 27.2 RATIO High 10-20 [facility] Comment on above: Performed By: #### L 500.4050, L100.0100 ####[facility] [address] [place], [address] CA,Total 9.2 mg/dL Normal 8.5-10.1 [facility] Comment on above: Performed By: #### L 500.4050, L100.0100 ####[facility] [address] [place], [address] Chloride [Moles/Vol] 102 mmol/L Normal 98-107 [facility] Comment on above: Performed By: #### L 500.4050, L100.0100 ####[facility] [address] [place], [address] CO2 [Moles/Vol] 30.0 mmol/L Normal 21.0-32.0 [facility] Comment on above: Performed By: #### L 500.4050, L100.0100 ####[facility] [address] [place], [address] Creatinine [Mass/Vol] 1.03 mg/dL Normal 0.70-1.30 [facility] Comment on above: Result Comment: The validity of the calculated GFR GFRAA in patients over70 years has not been determined. Clinical correlation isessential. Performed By: #### L 500.4050, L100.0100 ####[facility] [address] [place], [address] ECRCL 61.88 ml/min Normal [facility] Comment on above: Performed By: #### L 500.4050, L100.0100 ####[facility] [address] [place], [address] EST GFR - AA 95 mL/min Normal >60 [facility] Comment on above: Result Comment: Afri can [place] GFR Calc Performed By: #### L 500.4050, L100.0100 ####[facility] [address] [place], [address] GAP 6 Normal 5-15 [facility] Comment on above: Performed By: #### L 500.4050, L100.0100 ####[facility] [address] [place], [address] GFR/1.73 sq M.predicted among non-blacks MDRD (S/P/Bld) [Vol rate/Area] 79 mL/min/{1.73_m2} Normal >60 [facility] Comment on above: Result Comment: Non- GFR Calc Performed By: #### L 500.4050, L100.0100 ####[facility] [address] [place], [address] Globulin (S) [Mass/Vol] 5.3 g/dL High 2.2-4.2 [facility] Comment on above: Performed By: #### L 500.4050, L100.0100 ####[facility] [address] [place], [address] Glucose [Mass/Vol] 108 mg/dL High 74-106 [facility] Comment on above: Result Comment: Fast ing Glucose result from 100 to 125 mg/dLsuggests IMPAIRED HOMEOSTASIS per A.D.A. criteria. Performed By: #### L 500.4050, L100.0100 ####[facility] [address] [place], [address] Potassium [Moles/Vol] 3.5 mmol/L Normal 3.5-5.1 [facility] Comment on above: Performed By: #### L 500.4050, L100.0100 ####[facility] [address] [place], [address] Sodium [Moles/Vol] 137 mmol/L Normal 136-145 [facility] Comment on above: Performed By: #### L 500.4050, L100.0100 ####[facility] [address] [place], [address] T PROT 7.7 g/dL Normal 6.4-8.2 [facility] Comment on above: Performed By: #### L 500.4050, L100.0100 ####[facility] [address] [place], [address] Urea nitrogen [Mass/Vol] 28 mg/dL High 7-18 [facility] Comment on above: Performed By: #### L 500.4050, L100.0100 ####[facility] [address] [place], [address] LDHon 08-09-2024 LDH 115 U/L Normal 87-241 [facility] Comment on above: Order Comment: 1 Performed By: #### L 504.2610 ####[facility] [address] [place], [address] Oncology Visit Reporton - Oncology Visit Report Normal [facility] Radiation Oncology Visiton 1 - Radiation Oncology Visit Normal [facility] CBC W/Diff, Automatedon - Absolute Lymph 0.42 X10 3/uL Low 0.83-4.51 [facility] Comment on above: Performed By: #### L 100.0100, L500.4050 ####[facility] [address] [place], [address] Absolute Neut 5.5 X10 3/uL Normal 2.0-7.7 [facility] Comment on above: Performed By: #### L 100.0100, L500.4050 ####[facility] [address] [place], [address] Basophils/100 WBC (Bld) 0.4 % Normal 0-1 [facility] Comment on above: Performed By: #### L 100.0100, L500.4050 ####[facility] [address] [place], [address] Eosinophils/100 WBC (Bld) 3.2 % Normal 0-5 [facility] Comment on above: Performed By: #### L 100.0100, L500.4050 ####[facility] [address] [place], [address] Erythrocyte distribution width (RBC) [Ratio] 13.2 % Normal 11.6-14.6 [facility] Comment on above: Performed By: #### L 100.0100, L500.4050 ####[facility] [address] [place], [address] Hematocrit (Bld) [Volume fraction] 33.9 % Low 40-54 [facility] Comment on above: Performed By: #### L 100.0100, L500.4050 ####[facility] [address] [place], [address] Hemoglobin (Bld) [Mass/Vol] 11.0 g/dL Low 13.0-16.5 [facility] Comment on above: Performed By: #### L 100.0100, L500.4050 ####[facility] [address] [place], [address] IG% 1.400 High 0.0-0.9 [facility] Comment on above: Result Comment: IG% - Immature Granulocytes (promyelocytes, myelocytes andmetamyelocytes) > 1% indicates that a LEFT SHIFT is Present. Performed By: #### L 100.0100, L500.4050 ####[facility] [address] [place], [address] Lymphocytes/100 WBC (Bld) 6.1 % Low 19-41 [facility] Comment on above: Performed By: #### L 100.0100, L500.4050 ####[facility] [address] [place], [address] MCH (RBC) [Entitic mass] 29.3 pg Normal 27.0-32.0 [facility] Comment on above: Performed By: #### L 100.0100, L500.4050 ####[facility] [address] [place], [address] MCHC (RBC) [Mass/Vol] 32.4 g/dL Normal 32-36 [facility] Comment on above: Performed By: #### L 100.0100, L500.4050 ####[facility] [address] [place], [address] MCV (RBC) [Entitic vol] 90.2 fL Normal 80-94 [facility] Comment on above: Performed By: #### L 100.0100, L500.4050 ####[facility] [address] [place], [address] Monocytes/100 WBC (Bld) 9.4 % Normal 0-10 [facility] Comment on above: Performed By: #### L 100.0100, L500.4050 ####[facility] [address] [place], [address] Neutrophils/100 WBC (Bld) 79.5 % High 47-70 [facility] Comment on above: Performed By: #### L 100.0100, L500.4050 ####[facility] [address] [place], [address] Nucleated RBC (Bld) [#/Vol] 0 10*3/uL Normal 0-5 [facility] Comment on above: Performed By: #### L 100.0100, L500.4050 ####[facility] [address] [place], [address] Platelet mean volume (Bld) [Entitic vol] 7.8 fL Normal 6.2-12.0 [facility] Comment on above: Performed By: #### L 100.0100, L500.4050 ####[facility] [address] [place], [address] Platelets (Bld) [#/Vol] 286 10*3/uL Normal 150-450 [facility] Comment on above: Performed By: #### L 100.0100, L500.4050 ####[facility] [address] [place], [address] RBC (Bld) [#/Vol] 3.76 10*6/uL Low 4.6-6.2 [facility] Comment on above: Performed By: #### L 100.0100, L500.4050 ####[facility] [address] [place], [address] RDW SD 42.8 fl Normal 35.1-43.9 [facility] Comment on above: Performed By: #### L 100.0100, L500.4050 ####[facility] [address] [place], [address] WBC (Bld) [#/Vol] 6.9 10*3/uL Normal 4.4-11.0 [facility] Comment on above: Performed By: #### L 100.0100, L500.4050 ####[facility] [address] [place], [address] Comprehensive Metabolic [facility] 08-02-2024 Albumin [Mass/Vol] 2.5 g/dL Low 3.2-5.0 [facility] Comment on above: Performed By: #### L 100.0100, L500.4050 ####[facility] [address] [place], [address] Albumin/Globulin [Mass ratio] 0.5 {ratio} Low 0.9-2.4 [facility] Comment on above: Performed By: #### L 100.0100, L500.4050 ####[facility] [address] [place], [address] ALK P 87 U/L Normal 45-117 [facility] Comment on above: Performed By: #### L 100.0100, L500.4050 ####[facility] [address] [place], [address] ALT [Catalytic activity/Vol] 27 U/L Normal 16-61 [facility] Comment on above: Performed By: #### L 100.0100, L500.4050 ####[facility] [address] [place], [address] AST [Catalytic activity/Vol] 13 U/L Low 15-37 [facility] Comment on above: Performed By: #### L 100.0100, L500.4050 ####[facility] [address] [place], [address] Bilirubin [Mass/Vol] 0.30 mg/dL Normal 0.20-1.00 [facility] Comment on above: Result Comment: For patients on eltrombopag therapy, use of Dimension [place] TBIL is not recommended. Performed By: #### L 100.0100, L500.4050 ####[facility] [address] [place], [address] BUN/CRE 23.4 RATIO High 10-20 [facility] Comment on above: Performed By: #### L 100.0100, L500.4050 ####[facility] [address] [place], [address] CA,Total 9.4 mg/dL Normal 8.5-10.1 [facility] Comment on above: Performed By: #### L 100.0100, L500.4050 ####[facility] [address] [place], [address] Chloride [Moles/Vol] 105 mmol/L Normal 98-107 [facility] Comment on above: Performed By: #### L 100.0100, L500.4050 ####[facility] [address] [place], [address] CO2 [Moles/Vol] 29.0 mmol/L Normal 21.0-32.0 [facility] Comment on above: Performed By: #### L 100.0100, L500.4050 ####[facility] [address] [place], [address] Creatinine [Mass/Vol] 0.73 mg/dL Normal 0.70-1.30 [facility] Comment on above: Result Comment: The validity of the calculated GFR GFRAA in patients over70 years has not been determined. Clinical correlation isessential. Performed By: #### L 100.0100, L500.4050 ####[facility] [address] [place], [address] ECRCL 85.18 ml/min Normal [facility] Comment on above: Performed By: #### L 100.0100, L500.4050 ####[facility] [address] [place], [address] EST GFR - AA 142 mL/min Normal >60 [facility] Comment on above: Result Comment: Afri can [place]an GFR Calc Performed By: #### L 100.0100, L500.4050 ####[facility] [address] [place], [address] GAP 6 Normal 5-15 [facility] Comment on above: Performed By: #### L 100.0100, L500.4050 ####[facility] [address] [place], [address] GFR/1.73 sq M.predicted among non-blacks MDRD (S/P/Bld) [Vol rate/Area] 117 mL/min/{1.73_m2} Normal >60 [facility] Comment on above: Result Comment: Non- GFR Calc Performed By: #### L 100.0100, L500.4050 ####[facility] [address] [place], [address] Globulin (S) [Mass/Vol] 4.9 g/dL High 2.2-4.2 [facility] Comment on above: Performed By: #### L 100.0100, L500.4050 ####[facility] [address] [place], [address] Glucose [Mass/Vol] 95 mg/dL Normal 74-106 [facility] Comment on above: Performed By: #### L 100.0100, L500.4050 ####[facility] [address] [place], [address] Potassium [Moles/Vol] 4.0 mmol/L Normal 3.5-5.1 [facility] Comment on above: Performed By: #### L 100.0100, L500.4050 ####[facility] [address] [place], [address] Sodium [Moles/Vol] 139 mmol/L Normal 136-145 [facility] Comment on above: Performed By: #### L 100.0100, L500.4050 ####[facility] [address] [place], [address] T PROT 7.4 g/dL Normal 6.4-8.2 [facility] Comment on above: Performed By: #### L 100.0100, L500.4050 ####[facility] [address] [place], [address] Urea nitrogen [Mass/Vol] 17 mg/dL Normal 7-18 [facility] Comment on above: Performed By: #### L 100.0100, L500.4050 ####[facility] [address] [place], [address] Oncology Visit Reporton 10-1 Oncology Visit Report Normal [facility] Radiation Oncology Visiton 1 0- Radiation Oncology Visit Normal [facility] CBC W/Diff, Automatedon 10-0 7-2024 Absolute Lymph 0.32 X10 3/uL Low 0.83-4.51 [facility] Comment on above: Performed By: #### L 500.4050, L100.0100 ####[facility] [address] [place], [address] Absolute Neut 11.1 X10 3/uL High 2.0-7.7 [facility] Comment on above: Performed By: #### L 500.4050, L100.0100 ####[facility] [address] [place], [address] Basophils/100 WBC (Bld) 0.4 % Normal 0-1 [facility] Comment on above: Performed By: #### L 500.4050, L100.0100 ####[facility] [address] [place], [address] Eosinophils/100 WBC (Bld) 0.4 % Normal 0-5 [facility] Comment on above: Performed By: #### L 500.4050, L100.0100 ####[facility] [address] [place], [address] Erythrocyte distribution width (RBC) [Ratio] 13.3 % Normal 11.6-14.6 [facility] Comment on above: Performed By: #### L 500.4050, L100.0100 ####[facility] [address] [place], [address] Hematocrit (Bld) [Volume fraction] 32.5 % Low 40-54 [facility] Comment on above: Performed By: #### L 500.4050, L100.0100 ####[facility] [address] [place], [address] Hemoglobin (Bld) [Mass/Vol] 10.6 g/dL Low 13.0-16.5 [facility] Comment on above: Performed By: #### L 500.4050, L100.0100 ####[place] [facility] [address] [place], [address] IG% 0.600 Normal 0.0-0.9 [facility] Comment on above: Result Comment: IG% - Immature Granulocytes (promyelocytes, myelocytes andmetamyelocytes) > 1% indicates that a LEFT SHIFT is Present. Performed By: #### L 500.4050, L100.0100 ####[facility] [address] [place], [address] Lymphocytes/100 WBC (Bld) 2.5 % Low 19-41 [facility] Comment on above: Performed By: #### L 500.4050, L100.0100 ####[facility] [address] [place], [address] MCH (RBC) [Entitic mass] 29.1 pg Normal 27.0-32.0 [facility] Comment on above: Performed By: #### L 500.4050, L100.0100 ####[facility] [address] [place], [address] MCHC (RBC) [Mass/Vol] 32.6 g/dL Normal 32-36 [facility] Comment on above: Performed By: #### L 500.4050, L100.0100 ####[facility] [address] [place], [address] MCV (RBC) [Entitic vol] 89.3 fL Normal 80-94 [facility] Comment on above: Performed By: #### L 500.4050, L100.0100 ####[facility] [address] [place], [address] Monocytes/100 WBC (Bld) 9.6 % Normal 0-10 [facility] Comment on above: Performed By: #### L 500.4050, L100.0100 ####[facility] [address] [place], [address] Neutrophils/100 WBC (Bld) 86.5 % High 47-70 [facility] Comment on above: Performed By: #### L 500.4050, L100.0100 ####[facility] [address] [place], [address] Nucleated RBC (Bld) [#/Vol] 0 10*3/uL Normal 0-5 [facility] Comment on above: Performed By: #### L 500.4050, L100.0100 ####[facility] [address] [place], [address] Platelet mean volume (Bld) [Entitic vol] 7.9 fL Normal 6.2-12.0 [facility] Comment on above: Performed By: #### L 500.4050, L100.0100 ####[facility] [address] [place], [address] Platelets (Bld) [#/Vol] 259 10*3/uL Normal 150-450 [facility] Comment on above: Performed By: #### L 500.4050, L100.0100 ####[facility] [address] [place], [address] RBC (Bld) [#/Vol] 3.64 10*6/uL Low 4.6-6.2 [facility] Comment on above: Performed By: #### L 500.4050, L100.0100 ####[facility] [address] [place], [address] RDW SD 43.5 fl Normal 35.1-43.9 [facility] Comment on above: Performed By: #### L 500.4050, L100.0100 ####[facility] [address] [place], [address] WBC (Bld) [#/Vol] 12.8 10*3/uL High 4.4-11.0 [facility] Comment on above: Performed By: #### L 500.4050, L100.0100 ####[facility] [address] [place], [address] Comprehensive Metabolic Prof ilon 07-26-2024 Albumin [Mass/Vol] 2.4 g/dL Low 3.2-5.0 [facility] Comment on above: Performed By: #### L 500.4050, L100.0100 ####[facility] [address] [place], [address] Albumin/Globulin [Mass ratio] 0.5 {ratio} Low 0.9-2.4 [facility] Comment on above: Performed By: #### L 500.4050, L100.0100 ####[facility] [address] [place], [address] ALK P 82 U/L Normal 45-117 [facility] Comment on above: Performed By: #### L 500.4050, L100.0100 ####[facility] [address] [place], [address] ALT [Catalytic activity/Vol] 15 U/L Low 16-61 [facility] Comment on above: Performed By: #### L 500.4050, L100.0100 ####[facility] [address] [place], [address] AST [Catalytic activity/Vol] 12 U/L Low 15-37 [facility] Comment on above: Performed By: #### L 500.4050, L100.0100 ####[facility] [address] [place], [address] Bilirubin [Mass/Vol] 0.40 mg/dL Normal 0.20-1.00 [facility] Comment on above: Result Comment: For patients on eltrombopag therapy, use of Dimension [place] TBIL is not recommended. Performed By: #### L 500.4050, L100.0100 ####[facility] [address] [place], [address] BUN/CRE 19.1 RATIO Normal 10-20 [facility] Comment on above: Performed By: #### L 500.4050, L100.0100 ####[facility] [address] [place], [address] CA,Total 9.4 mg/dL Normal 8.5-10.1 [facility] Comment on above: Performed By: #### L 500.4050, L100.0100 ####[facility] [address] [place], [address] Chloride [Moles/Vol] 99 mmol/L Normal 98-107 [facility] Comment on above: Performed By: #### L 500.4050, L100.0100 ####[facility] [address] [place], [address] CO2 [Moles/Vol] 29.0 mmol/L Normal 21.0-32.0 [facility] Comment on above: Performed By: #### L 500.4050, L100.0100 ####[facility] [address] [place], [address] Creatinine [Mass/Vol] 0.84 mg/dL Normal 0.70-1.30 [facility] Comment on above: Result Comment: The validity of the calculated GFR GFRAA in patients over70 years has not been determined. Clinical correlation isessential. Performed By: #### L 500.4050, L100.0100 ####[facility] [address] [place], [address] ECRCL 74.03 ml/min Normal [facility] Comment on above: Performed By: #### L 500.4050, L100.0100 ####[facility] [address] [place], [address] EST GFR - AA 121 mL/min Normal >60 [facility] Comment on above: Result Comment: Afri can [place]an GFR Calc Performed By: #### L 500.4050, L100.0100 ####[facility] [address] [place], [address] GAP 4 Low 5-15 [facility] Comment on above: Performed By: #### L 500.4050, L100.0100 ####[facility] [address] [place], [address] GFR/1.73 sq M.predicted among non-blacks MDRD (S/P/Bld) [Vol rate/Area] 100 mL/min/{1.73_m2} Normal >60 [facility] Comment on above: Result Comment: Non- GFR Calc Performed By: #### L 500.4050, L100.0100 ####[facility] [address] [place], [address] Globulin (S) [Mass/Vol] 5.3 g/dL High 2.2-4.2 [facility] Comment on above: Performed By: #### L 500.4050, L100.0100 ####[facility] [address] [place], [address] Glucose [Mass/Vol] 113 mg/dL High 74-106 [facility] Comment on above: Result Comment: Fast ing Glucose result from 100 to 125 mg/dLsuggests IMPAIRED HOMEOSTASIS per A.D.A. criteria. Performed By: #### L 500.4050, L100.0100 ####[facility] [address] [place], [address] Potassium [Moles/Vol] 3.9 mmol/L Normal 3.5-5.1 [facility] Comment on above: Performed By: #### L 500.4050, L100.0100 ####[facility] [address] [place], [address] Sodium [Moles/Vol] 132 mmol/L Low 136-145 [facility] Comment on above: Performed By: #### L 500.4050, L100.0100 ####[facility] [address] [place], [address] T PROT 7.7 g/dL Normal 6.4-8.2 [facility] Comment on above: Performed By: #### L 500.4050, L100.0100 ####[facility] [address] [place], [address] Urea nitrogen [Mass/Vol] 16 mg/dL Normal 7-18 [facility] Comment on above: Performed By: #### L 500.4050, L100.0100 ####[facility] [address] [place], [address] Oncology Visit Reporton 10-0 Oncology Visit Report Normal [facility] Radiation Oncology Visiton 1 0--2023 Radiation Oncology Visit Normal [facility] CBC W/Diff, Automatedon 09-3 0-2023 Absolute Lymph 0.70 X10 3/uL Low 0.83-4.51 [facility] Comment on above: Performed By: #### L 500.4050, L100.0100 ####[facility] [address] [place], [address] Absolute Neut 8.4 X10 3/uL High 2.0-7.7 [facility] Comment on above: Performed By: #### L 500.4050, L100.0100 ####[facility] [address] [place], [address] Basophils/100 WBC (Bld) 0.7 % Normal 0-1 [facility] Comment on above: Performed By: #### L 500.4050, L100.0100 ####[facility] [address] [place], [address] Eosinophils/100 WBC (Bld) 1.4 % Normal 0-5 [facility] Comment on above: Performed By: #### L 500.4050, L100.0100 ####[facility] [address] [place], [address] Erythrocyte distribution width (RBC) [Ratio] 12.9 % Normal 11.6-14.6 [facility] Comment on above: Performed By: #### L 500.4050, L100.0100 ####[facility] [address] [place], [address] Hematocrit (Bld) [Volume fraction] 34.8 % Low 40-54 [facility] Comment on above: Performed By: #### L 500.4050, L100.0100 ####[facility] [address] [place], [address] Hemoglobin (Bld) [Mass/Vol] 11.2 g/dL Low 13.0-16.5 [facility] Comment on above: Performed By: #### L 500.4050, L100.0100 ####[facility] [address] [place], [address] IG% 1.400 High 0.0-0.9 [facility] Comment on above: Result Comment: IG% - Immature Granulocytes (promyelocytes, myelocytes andmetamyelocytes) > 1% indicates that a LEFT SHIFT is Present. Performed By: #### L 500.4050, L100.0100 ####[facility] [address] [place], [address] Lymphocytes/100 WBC (Bld) 7.0 % Low 19-41 [facility] Comment on above: Performed By: #### L 500.4050, L100.0100 ####[facility] [address] [place], [address] MCH (RBC) [Entitic mass] 29.1 pg Normal 27.0-32.0 [facility] Comment on above: Performed By: #### L 500.4050, L100.0100 ####[facility] [address] [place], [address] MCHC (RBC) [Mass/Vol] 32.2 g/dL Normal 32-36 [facility] Comment on above: Performed By: #### L 500.4050, L100.0100 ####[facility] [address] [place], [address] MCV (RBC) [Entitic vol] 90.4 fL Normal 80-94 [facility] Comment on above: Performed By: #### L 500.4050, L100.0100 ####[facility] [address] [place], [address] Monocytes/100 WBC (Bld) 5.1 % Normal 0-10 [facility] Comment on above: Performed By: #### L 500.4050, L100.0100 ####[facility] [address] [place], [address] Neutrophils/100 WBC (Bld) 84.4 % High 47-70 [facility] Comment on above: Performed By: #### L 500.4050, L100.0100 ####[facility] [address] [place], [address] Nucleated RBC (Bld) [#/Vol] 0 10*3/uL Normal 0-5 [facility] Comment on above: Performed By: #### L 500.4050, L100.0100 ####[facility] [address] [place], [address] Platelet mean volume (Bld) [Entitic vol] 8.2 fL Normal 6.2-12.0 [facility] Comment on above: Performed By: #### L 500.4050, L100.0100 ####[facility] [address] [place], [address] Platelets (Bld) [#/Vol] 480 10*3/uL High 150-450 [facility] Comment on above: Performed By: #### L 500.4050, L100.0100 ####[facility] [address] [place], [address] RBC (Bld) [#/Vol] 3.85 10*6/uL Low 4.6-6.2 [facility] Comment on above: Performed By: #### L 500.4050, L100.0100 ####[facility] [address] [place], [address] RDW SD 42.0 fl Normal 35.1-43.9 [facility] Comment on above: Performed By: #### L 500.4050, L100.0100 ####[facility] [address] [place], [address] WBC (Bld) [#/Vol] 10.0 10*3/uL Normal 4.4-11.0 [facility] Comment on above: Performed By: #### L 500.4050, L100.0100 ####[facility] [address] [place], [address] Absolute Neut Normal 2.0-7.7 [facility] Comment on above: Result Comment: DUPL ICATED ORDERS TO TX PLAN Performed By: #### L 500.4050, L100.0100 ####[facility] [address] [place], [address] HCT Normal 40-54 [facility] Comment on above: Result Comment: DUPL ICATED ORDERS TO TX PLAN Performed By: #### L 500.4050, L100.0100 ####[facility] [address] [place], [address] HGB Normal 13.0-16.5 [facility] Comment on above: Result Comment: DUPL ICATED ORDERS TO TX PLAN Performed By: #### L 500.4050, L100.0100 ####[facility] [address] [place], [address] MCH Normal 27.0-32.0 [facility] Comment on above: Result Comment: DUPL ICATED ORDERS TO TX PLAN Performed By: #### L 500.4050, L100.0100 ####[facility] [address] [place], [address] MCHC Normal 32-36 [facility] Comment on above: Result Comment: DUPL ICATED ORDERS TO TX PLAN Performed By: #### L 500.4050, L100.0100 ####[facility] [address] [place], [address] MCV Normal 80-94 [facility] Comment on above: Result Comment: DUPL ICATED ORDERS TO TX PLAN Performed By: #### L 500.4050, L100.0100 ####[facility] [address] [place], [address] NEUT% Normal 47-70 [facility] Comment on above: Result Comment: DUPL ICATED ORDERS TO TX PLAN Performed By: #### L 500.4050, L100.0100 ####[facility] [address] [place], [address] PLT Normal 150-450 [facility] Comment on above: Result Comment: DUPL ICATED ORDERS TO [place] PLAN Performed By: #### L 500.4050, L100.0100 ####[facility] [address] [place], [address] RBC Normal 4.6-6.2 [facility] Comment on above: Result Comment: DUPL ICATED ORDERS TO TX PLAN Performed By: #### L 500.4050, L100.0100 ####[facility] [address] [place], [address] RDW CV Normal 11.6-14.6 [facility] Comment on above: Result Comment: DUPL ICATED ORDERS TO TX PLAN Performed By: #### L 500.4050, L100.0100 ####[facility] [address] [place], [address] RDW SD Normal 35.1-43.9 [facility] Comment on above: Result Comment: DUPL ICATED ORDERS TO TX PLAN Performed By: #### L 500.4050, L100.0100 ####[facility] [address] [place], [address] WBC Normal 4.4-11.0 [facility] Comment on above: Result Comment: DUPL ICATED ORDERS TO TX PLAN Performed By: #### L 500.4050, L100.0100 ####[facility] [address] [place], [address] Comprehensive Metabolic Prof [facility] 07-19-2024 Albumin [Mass/Vol] 2.4 g/dL Low 3.2-5.0 [facility] Comment on above: Performed By: #### L 500.4050, L100.0100 ####[facility] [address] [place], [address] Albumin/Globulin [Mass ratio] 0.5 {ratio} Low 0.9-2.4 [facility] Comment on above: Performed By: #### L 500.4050, L100.0100 ####[facility] [address] [place], [address] ALK P 85 U/L Normal 45-117 [facility] Comment on above: Performed By: #### L 500.4050, L100.0100 ####[facility] [address] [place], [address] ALT [Catalytic activity/Vol] 17 U/L Normal 16-61 [facility] Comment on above: Performed By: #### L 500.4050, L100.0100 ####[facility] [address] [place], [address] AST [Catalytic activity/Vol] 13 U/L Low 15-37 [facility] Comment on above: Performed By: #### L 500.4050, L100.0100 ####[facility] [address] [place], [address] Bilirubin [Mass/Vol] 0.50 mg/dL Normal 0.20-1.00 [facility] Comment on above: Result Comment: For patients on eltrombopag therapy, use of Dimension [place] TBIL is not recommended. Performed By: #### L 500.4050, L100.0100 ####[facility] [address] [place], [address] BUN/CRE 17.1 RATIO Normal 10-20 [facility] Comment on above: Performed By: #### L 500.4050, L100.0100 ####[facility] [address] [place], [address] CA,Total 9.3 mg/dL Normal 8.5-10.1 [facility] Comment on above: Performed By: #### L 500.4050, L100.0100 ####[facility] [address] [place], [address] Chloride [Moles/Vol] 104 mmol/L Normal 98-107 [facility] Comment on above: Performed By: #### L 500.4050, L100.0100 ####[facility] [address] [place], [address] CO2 [Moles/Vol] 29.0 mmol/L Normal 21.0-32.0 [facility] Comment on above: Performed By: #### L 500.4050, L100.0100 ####[facility] [address] [place], [id number] Creatinine [Mass/Vol] 0.88 mg/dL Normal 0.70-1.30 [facility] Comment on above: Result Comment: The validity of the calculated GFR GFRAA in patients over70 years has not been determined. Clinical correlation isessential. Performed By: #### L 500.4050, L100.0100 ####[facility] [address] [place], [address] ECRCL 71.32 ml/min Normal [facility] Comment on above: Performed By: #### L 500.4050, L100.0100 ####[facility] [address] [place], [address] EST GFR - AA 115 mL/min Normal >60 [facility] Comment on above: Result Comment: Afri can Chilean GFR Calc Performed By: #### L 500.4050, L100.0100 ####[facility] [address] [place], [address] GAP 8 Normal 5-15 [facility] Comment on above: Performed By: #### L 500.4050, L100.0100 ####[facility] [address] [place], [address] GFR/1.73 sq M.predicted among non-blacks MDRD (S/P/Bld) [Vol rate/Area] 95 mL/min/{1.73_m2} Normal >60 [facility] Comment on above: Result Comment: Non- GFR Calc Performed By: #### L 500.4050, L100.0100 ####[facility] [address] [place], [address] Globulin (S) [Mass/Vol] 5.2 g/dL High 2.2-4.2 [facility] Comment on above: Performed By: #### L 500.4050, L100.0100 ####[facility] [address] [place], [address] Glucose [Mass/Vol] 116 mg/dL High 74-106 [facility] Comment on above: Result Comment: Fast ing Glucose result from 100 to 125 mg/dLsuggests IMPAIRED HOMEOSTASIS per A.D.A. criteria. Performed By: #### L 500.4050, L100.0100 ####[facility] [address] [place], [address] Potassium [Moles/Vol] 3.4 mmol/L Low 3.5-5.1 [facility] Comment on above: Performed By: #### L 500.4050, L100.0100 ####[facility] [address] [place], [address] Sodium [Moles/Vol] 141 mmol/L Normal 136-145 [facility] Comment on above: Performed By: #### L 500.4050, L100.0100 ####[facility] [address] [place], [address] T PROT 7.6 g/dL Normal 6.4-8.2 [facility] Comment on above: Performed By: #### L 500.4050, L100.0100 ####[facility] [address] [place], [address] Urea nitrogen [Mass/Vol] 15 mg/dL Normal 7-18 [facility] Comment on above: Performed By: #### L 500.4050, L100.0100 ####[facility] [address] [place], [address] ALB Normal 3.2-5.0 [facility] Comment on above: Result Comment: DUPL ICATED ORDERS TO TX PLAN Performed By: #### L 500.4050, L100.0100 ####[facility] [address] [place], [address] ALK P Normal 45-117 [facility] Comment on above: Result Comment: DUPL ICATED ORDERS TO TX PLAN Performed By: #### L 500.4050, L100.0100 ####[facility] [address] [place], [address] ALT Normal 16-61 [facility] Comment on above: Result Comment: DUPL ICATED ORDERS TO TX PLAN Performed By: #### L 500.4050, L100.0100 ####[facility] [address] [place], [address] AST Normal 15-37 [facility] Comment on above: Result Comment: DUPL ICATED ORDERS TO TX PLAN Performed By: #### L 500.4050, L100.0100 ####[facility] [address] [place], [address] BUN Normal 7-18 [facility] Comment on above: Result Comment: DUPL ICATED ORDERS TO TX PLAN Performed By: #### L 500.4050, L100.0100 ####[facility] [address] [place], [address] BUN/CRE Normal 10-20 [facility] Comment on above: Result Comment: DUPL ICATED ORDERS TO TX PLAN Performed By: #### L 500.4050, L100.0100 ####[facility] [address] [place], [address] CA,Total Normal 8.5-10.1 [facility] Comment on above: Result Comment: DUPL ICATED ORDERS TO TX PLAN Performed By: #### L 500.4050, L100.0100 ####[facility] [address] [place], [address] CL Normal 98-107 [facility] Comment on above: Result Comment: DUPL ICATED ORDERS TO TX PLAN Performed By: #### L 500.4050, L100.0100 ####[facility] [address] [place], [address] CO2 Normal 21.0-32.0 [facility] Comment on above: Result Comment: DUPL ICATED ORDERS TO TX PLAN Performed By: #### L 500.4050, L100.0100 ####[facility] [address] [place], [address] CREAT,SERUM Normal 0.70-1.30 [facility] Comment on above: Result Comment: DUPL ICATED ORDERS TO TX PLAN Performed By: #### L 500.4050, L100.0100 ####[facility] [address] [place], [address] EST GFR Normal >60 [facility] Comment on above: Result Comment: DUPL ICATED ORDERS TO TX PLAN Performed By: #### L 500.4050, L100.0100 ####[facility] [address] [place], [address] EST GFR - AA Normal >60 [facility] Comment on above: Result Comment: DUPL ICATED ORDERS TO TX PLAN Performed By: #### L 500.4050, L100.0100 ####[facility] [address] [place], [address] GAP Normal 5-15 [facility] Comment on above: Result Comment: DUPL ICATED ORDERS TO TX PLAN Performed By: #### L 500.4050, L100.0100 ####[facility] [address] [place], [address] GLU Normal 74-106 [facility] Comment on above: Result Comment: DUPL ICATED ORDERS TO TX PLAN Performed By: #### L 500.4050, L100.0100 ####[facility] [address] [place], [address] Potassium Normal 3.5-5.1 [facility] Comment on above: Result Comment: DUPL ICATED ORDERS TO TX PLAN Performed By: #### L 500.4050, L100.0100 ####[facility] [address] [place], [address] T BILI Normal 0.20-1.00 [facility] Comment on above: Result Comment: DUPL ICATED ORDERS TO TX PLAN Performed By: #### L 500.4050, L100.0100 ####[facility] [address] [place], [address] T PROT Normal 6.4-8.2 [facility] Comment on above: Result Comment: DUPL ICATED ORDERS TO TX PLAN Performed By: #### L 500.4050, L100.0100 ####[facility] [address] [place], [address] Comprehensive Metabolic Profil Normal 136-145 [facility] Comment on above: Result Comment: DUPL ICATED ORDERS TO TX PLAN Performed By: #### L 500.4050, L100.0100 ####[facility] [address] [place], [address] Oncology Visit Reporton 06-22 Oncology Visit Report Normal [facility] CXR for Line Placementon CXR for Line Placement Normal [facility] Discharge Instructionon 06-21 Discharge Instruction Normal [facility] MR/POSTOP.ANEon 07-15-2024 MR/POSTOP.ANE Normal [facility] MR/QPOWCQAT4yy 07-15-2024 MR/POSTOPAN2 Normal [facility] Operative Reporton Operative Report Normal [facility] Radiation Oncology Visiton 0 07-14-2024 Radiation Oncology Visit Normal [facility] Surgery Visit Reporton 07-13 Surgery Visit Report Normal [facility] Oncology Visit Reporton 06-21 Oncology Visit Report Normal [facility] CBC W/Diff, Automatedon 06-20 Absolute Lymph 1.47 X10 3/uL Normal 0.83-4.51 [facility] Comment on above: Performed By: #### L 100.0100, L500.4050, L504.2610 ####[facility] [address] [place], [address] Absolute Neut 13.9 X10 3/uL High 2.0-7.7 [facility] Comment on above: Performed By: #### L 100.0100, L500.4050, L504.2610 ####[facility] [address] [place], [address] Basophils/100 WBC (Bld) 0.4 % Normal 0-1 [facility] Comment on above: Performed By: #### L 100.0100, L500.4050, L504.2610 ####[facility] [address] [place], [address] Eosinophils/100 WBC (Bld) 0.5 % Normal 0-5 [facility] Comment on above: Performed By: #### L 100.0100, L500.4050, L504.2610 ####[facility] [address] [place], [address] Erythrocyte distribution width (RBC) [Ratio] 13.1 % Normal 11.6-14.6 [facility] Comment on above: Performed By: #### L 100.0100, L500.4050, L504.2610 ####[facility] [address] [place], [address] Hematocrit (Bld) [Volume fraction] 37.4 % Low 40-54 [facility] Comment on above: Performed By: #### L 100.0100, L500.4050, L504.2610 ####[facility] [address] [place], [address] Hemoglobin (Bld) [Mass/Vol] 12.1 g/dL Low 13.0-16.5 [facility] Comment on above: Performed By: #### L 100.0100, L500.4050, L504.2610 ####[facility] [address] [place], [address] IG% 0.700 Normal 0.0-0.9 [facility] Comment on above: Result Comment: IG% - Immature Granulocytes (promyelocytes, myelocytes andmetamyelocytes) > 1% indicates that a LEFT SHIFT is Present. Performed By: #### L 100.0100, L500.4050, L504.2610 ####[facility] [address] [place], [address] Lymphocytes/100 WBC (Bld) 8.7 % Low 19-41 [facility] Comment on above: Performed By: #### L 100.0100, L500.4050, L504.2610 ####[facility] [address] [place], [address] MCH (RBC) [Entitic mass] 29.7 pg Normal 27.0-32.0 [facility] Comment on above: Performed By: #### L 100.0100, L500.4050, L504.2610 ####[facility] [address] [place], [address] MCHC (RBC) [Mass/Vol] 32.4 g/dL Normal 32-36 [facility] Comment on above: Performed By: #### L 100.0100, L500.4050, L504.2610 ####[facility] [address] [place], [address] MCV (RBC) [Entitic vol] 91.7 fL Normal 80-94 [facility] Comment on above: Performed By: #### L 100.0100, L500.4050, L504.2610 ####[facility] [address] [place], [address] Monocytes/100 WBC (Bld) 7.2 % Normal 0-10 [facility] Comment on above: Performed By: #### L 100.0100, L500.4050, L504.2610 ####[facility] [address] [place], [address] Neutrophils/100 WBC (Bld) 82.5 % High 47-70 [facility] Comment on above: Performed By: #### L 100.0100, L500.4050, L504.2610 ####[facility] [address] [place], [address] Nucleated RBC (Bld) [#/Vol] 0 10*3/uL Normal 0-5 [facility] Comment on above: Performed By: #### L 100.0100, L500.4050, L504.2610 ####[facility] [address] [place], [address] Platelet mean volume (Bld) [Entitic vol] 8.3 fL Normal 6.2-12.0 [facility] Comment on above: Performed By: #### L 100.0100, L500.4050, L504.2610 ####[facility] [address] [place], [address] Platelets (Bld) [#/Vol] 578 10*3/uL High 150-450 [facility] Comment on above: Performed By: #### L 100.0100, L500.4050, L504.2610 ####[facility] [address] [place], [address] RBC (Bld) [#/Vol] 4.08 10*6/uL Low 4.6-6.2 [facility] Comment on above: Performed By: #### L 100.0100, L500.4050, L504.2610 ####[facility] [address] [place], [address] RDW SD 44.1 fl High 35.1-43.9 [facility] Comment on above: Performed By: #### L 100.0100, L500.4050, L504.2610 ####[facility] [address] [place], [address] WBC (Bld) [#/Vol] 16.9 10*3/uL High 4.4-11.0 [facility] Comment on above: Performed By: #### L 100.0100, L500.4050, L504.2610 ####[facility] [address] [place], [address] Comprehensive Metabolic Prof ilon 07-06-2024 Albumin [Mass/Vol] 2.7 g/dL Low 3.2-5.0 [facility] Comment on above: Order Comment: 1 Performed By: #### L 100.0100, L500.4050, L504.2610 ####[facility] [address] [place], [address] Albumin/Globulin [Mass ratio] 0.5 {ratio} Low 0.9-2.4 [facility] Comment on above: Order Comment: 1 Performed By: #### L 100.0100, L500.4050, L504.2610 ####[facility] [address] [place], [address] ALK P 105 U/L Normal 45-117 [facility] Comment on above: Order Comment: 1 Performed By: #### L 100.0100, L500.4050, L504.2610 ####[facility] [address] [place], [address] ALT [Catalytic activity/Vol] 18 U/L Normal 16-61 [facility] Comment on above: Order Comment: 1 Performed By: #### L 100.0100, L500.4050, L504.2610 ####[facility] [address] [place], [address] AST [Catalytic activity/Vol] 12 U/L Low 15-37 [facility] Comment on above: Order Comment: 1 Performed By: #### L 100.0100, L500.4050, L504.2610 ####[facility] [address] [place], [address] Bilirubin [Mass/Vol] 0.40 mg/dL Normal 0.20-1.00 [facility] Comment on above: Order Comment: 1 Result Comment: For patients on eltrombopag therapy, use of Dimension [place] TBIL is not recommended. Performed By: #### L 100.0100, L500.4050, L504.2610 ####[facility] [address] [place], [address] BUN/CRE 24.8 RATIO High 10-20 [facility] Comment on above: Order Comment: 1 Performed By: #### L 100.0100, L500.4050, L504.2610 ####[facility] [address] [place], [address] CA,Total 10.0 mg/dL Normal 8.5-10.1 [facility] Comment on above: Order Comment: 1 Performed By: #### L 100.0100, L500.4050, L504.2610 ####[facility] [address] [place], [address] Chloride [Moles/Vol] 102 mmol/L Normal 98-107 [facility] Comment on above: Order Comment: 1 Performed By: #### L 100.0100, L500.4050, L504.2610 ####[facility] [address] [place], [address] CO2 [Moles/Vol] 26.0 mmol/L Normal 21.0-32.0 [facility] Comment on above: Order Comment: 1 Performed By: #### L 100.0100, L500.4050, L504.2610 ####[facility] [address] [place], [address] Creatinine [Mass/Vol] 1.09 mg/dL Normal 0.70-1.30 [facility] Comment on above: Order Comment: 1 Result Comment: The validity of the calculated GFR GFRAA in patients over70 years has not been determined. Clinical correlation isessential. Performed By: #### L 100.0100, L500.4050, L504.2610 ####[facility] [address] [place], [address] EST GFR - AA 89 mL/min Normal >60 [facility] Comment on above: Order Comment: 1 Result Comment: Afri can Chilean GFR Calc Performed By: #### L 100.0100, L500.4050, L504.2610 ####[facility] [address] [place], [address] GAP 8 Normal 5-15 [facility] Comment on above: Order Comment: 1 Performed By: #### L 100.0100, L500.4050, L504.2610 ####[facility] [address] [place], [address] GFR/1.73 sq M.predicted among non-blacks MDRD (S/P/Bld) [Vol rate/Area] 74 mL/min/{1.73_m2} Normal >60 [facility] Comment on above: Order Comment: 1 Result Comment: Non- GFR Calc Performed By: #### L 100.0100, L500.4050, L504.2610 ####[facility] [address] [place], [address] Globulin (S) [Mass/Vol] 5.9 g/dL High 2.2-4.2 [facility] Comment on above: Order Comment: 1 Performed By: #### L 100.0100, L500.4050, L504.2610 ####[facility] [address] [place], [address] Glucose [Mass/Vol] 89 mg/dL Normal 74-106 [facility] Comment on above: Order Comment: 1 Performed By: #### L 100.0100, L500.4050, L504.2610 ####[facility] [address] [place], [address] Potassium [Moles/Vol] 3.8 mmol/L Normal 3.5-5.1 [facility] Comment on above: Order Comment: 1 Performed By: #### L 100.0100, L500.4050, L504.2610 ####[facility] [address] [place], [address] Sodium [Moles/Vol] 136 mmol/L Normal 136-145 [facility] Comment on above: Order Comment: 1 Performed By: #### L 100.0100, L500.4050, L504.2610 ####[facility] [address] [place], [address] T PROT 8.6 g/dL High 6.4-8.2 [facility] Comment on above: Order Comment: 1 Performed By: #### L 100.0100, L500.4050, L504.2610 ####[facility] [address] [place], [address] Urea nitrogen [Mass/Vol] 27 mg/dL High 7-18 [facility] Comment on above: Order Comment: 1 Performed By: #### L 100.0100, L500.4050, L504.2610 ####[facility] [address] [place], [address] LDHon 07-06-2024 LDH 111 U/L Normal 87-241 [facility] Comment on above: Order Comment: 1 Performed By: #### L 100.0100, L500.4050, L504.2610 ####[facility] [address] [place], [address] Oncology Visit Reporton 06-20 Oncology Visit Report Normal [facility] PET/CT Tumor Base -Thigh Ini ton 07-06-2024 PET/CT Tumor Base -Thigh Init Normal [facility] CT Chest, Abd, Pel w/Contras ton 06-29-2024 CT Chest, Abd, Pel w/Contrast [facility] SURG PATH REQUESTon 06-25-20 Case Report [facility] Comment on above: Result Comment: Surg ical Pathology Report Case: [id number] Authorizing Provider: Hilary Lewis MD Collected: 06/25/2024 11:57 AM Ordering Location: [facility] Received: 06/25/2024 03:01 PM Pathologist: Brittny Arias MD Specimen: TISSUE, rectal cancer Performed By: #### S URGP #### [facility] (DEFAULT) [address] [place] [address] Clinical History Malignant neoplasm o f rectum. Medical History: Colon cancer. [facility] Comment on above: Performed By: #### S URGP #### [facility] (DEFAULT) [address] [place] [address] Gross Description [facility] Comment on above: Result Comment: The specimen is received in one properly labeled container with the patient's name and accession number. A. The specimen is designated rectal cancer and consists of four fragments of avery-pink soft tissue, from 0.1 up to 0.5 cm in greatest dimension. TE 1 Lab Use Only: JobID [id number] Grosser for this case was: Rubia Paris Performed By: #### S URGP #### [facility] (DEFAULT) [address] [place] [address] Microscopic Description A microscopic examination was performed. [facility] Comment on above: Performed By: #### S URGP #### [facility] (DEFAULT) [address] [place] [address] Pathologic Diagnosis [facility] Comment on above: Result Comment: A. R ectum, biopsy: Adenocarcinoma, superficial fragments - see note. Note: The prior biopsy report from an outside institution reported the mismatch repair proteins (MMR) as intact by IHC. Performed By: #### S URGP #### [facility] (DEFAULT) [address] [address] Professional Interpretation Performed at: Normal [facility] Comment on above: Result Comment: [facility] For Immediate Release to Patient's [facility] [place] Yes [address] [place], [place] [address] Performed By: #### S URGP #### [facility] (DEFAULT) [address] [address] Radiation Oncology Visiton 0 06-24-2024 Radiation Oncology Visit Normal [facility] Carcinoembryonic Antigenon 0 06-11-2024 CEA < 0.6 Normal 0.0-4.7 [facility] Comment on above: Result Comment: Nons mokers <3.9 Smokers <5.6[employer] Electrochemiluminescence Immunoassay(ECLIA)Values obtained with different assay methods or kitscannot be used interchangeably. Results cannot beinterpreted as absolute evidence of the presence orabsence of malignant disease.Performed at: [facility] [address] [id number] Director: Javid Diehl PhD, Phone: [phone] Performed By: #### L 2544.5077 ####[facility] [address] [facility] [place], [place], [id number] Oncology Visit Reporton 05-21 Oncology Visit Report Normal [facility] CT ABDOMEN/PELVIS WITH CONTR Yeison 05-21-2024 CT ABDOMEN/PELVIS WITH CONTRAST EXAM: CT ABDOMEN/PELVIS WITH CONTRAST, 05/20/2024 13:01 PM COMPARISON: CT abdomen and pelvis from May 05, 2024. CLINICAL INDICATIONS: Re-evaluation of intraabdominal abscess s/p abdominal/pelvic drain placement with IR L02.91:Abscess TECHNIQUE: CT scanning was performed of the abdomen and pelvis following the administration of intravenous contrast. PROTOCOL: Standard. CONTRAST: iohexol (OMNIPAQUE) 350 MG/ML injection 1-171 mL; Route of Administration: Intravenous; Dose: 70 mL. FINDINGS: Lung Bases: Normal. Liver: Normal. Gallbladder: Gallbladder sludge. No pericholecystic fluid or gallbladder wall thickening. Bile Ducts: Normal in caliber. Spleen: Normal. Pancreas: Normal. Adrenals: Normal. Right Kidney: Punctate calcification in the interpolar region. No hydronephrosis. Left Kidney: Few cortical hypodensities are too small to characterize. No hydronephrosis. Gastrointestinal: Postoperative changes from partial colectomy with a rectal stump and left lower quadrant colostomy. Polypoid lesion in the rectal stump measures 3.5 x 2.5 cm (axial image 132), previously 3.6 x 2.7 cm. No bowel obstruction. Residual abscess in the presacral space with drain in place measures measures 2.8 x 1.3 x 4.4 cm (axial image 120 and sagittal image 81), previously 4.0 x 2.5 x 5.2 cm. Peritoneum/retroperitoneum : No definite ascites. Improving mesenteric edema. Abscess in the right paracolic gutter has essentially resolved after drain placement. A suspected communication with the pelvic collection is no longer appreciated. The fluid collection in the left lower quadrant measures 2.8 x 1.6 cm (axial image 104), previously 3.9 x 1.8 cm. Right lower quadrant abscess has resolved. Lymph nodes: No enlarged or morphologically abnormal lymph nodes. Vasculature: The abdominal aorta is normal in course and caliber. Patent celiac and superior mesenteric arteries. Patent portal, splenic, and superior mesenteric veins. Bladder: Circumferential bladder wall thickening may be reactive or related to chronic outlet obstruction. Tiny focus of gas in the bladder likely due to recent instrumentation. Pelvic Organs: Mild prostatomegaly Body Wall: Postoperative changes. Bones: Normal for patient age. No aggressive lesion. IMPRESSION: Abscesses in the abdomen and pelvis have decreased or resolved compared to May 05, 2024. Polypoid lesion in the rectal stump. Normal [facility] DRAINAGE BY CATHETER PERITON EAL/RETROPERITONEAL PERCUTANEOUS W/ IMAGINon 05-10-2024 DRAINAGE BY CATHETER PERITONEAL/RETROPERITO CONRAD PERCUTANEOUS W/ IMAGIN EXAM: IR DRAINAGE BY CATHETER PERITONEAL/RETROPERITONEAL PERCUTANEOUS W/ IMAGIN, 05/07/2024 16:28 PM CLINICAL INDICATIONS: B99.9:Infection MEDICATIONS: 4:06 PM 05/07/24 fentaNYL (SUBLIMAZE) injection 0-300 mcg Ordered and Given 50 mcg Given Rate: 0 Route: Intravenous; 4:06 PM 05/07/24 midazolam (VERSED) injection 0-10 mg Ordered and Given 1 mg Given Rate: 0 Route: Intravenous; 4:15 PM 05/07/24 fentaNYL (SUBLIMAZE) injection 0-300 mcg Given 25 mcg Given Rate: 0 Route: Intravenous; 4:16 PM 05/07/24 midazolam (VERSED) injection 0-10 mg Given 0.5 mg Given Rate: 0 Route: Intravenous; 4:19 PM 05/07/24 Lidocaine 2 % injection Ordered and Given 4 mL Given Rate: 0 Route: Other ; OPERATORS: Catherine Delatorre II, MD CONSENT: Following discussion of the risks, benefits and alternatives of the procedure, written informed consent was obtained. SEDATION: I performed Moderate Sedation which included the presence of a nurse that assisted in monitoring the patient's level of consciousness and physiologic status. After administration of sedative medication(s), I spent 13 minutes of continuous [id number] time with the patient. COMPARISON: No prior studies available for comparison. TIME OUT: Prior to the procedure a time out was performed in the presence of the patient and all personnel involved in this case. The patient identity, procedure type, procedure side/site, and allergies were verified. TECHNIQUE: Position: The patient was transferred to the IR laboratory and was positioned supine on the procedural table. The right lower quadrant of the abdomen was prepped and draped using maximum sterile barrier technique. This consisted of cap, mask, hand hygiene, sterile gown and gloves, 2% Chlorhexidine solution for cutaneous antisepsis and occlusive sterile draping of the field. Using CT guidance, a needle was inserted into the collection and purulent fluid aspirated. A wire was inserted and subsequently a 10 Fr pigtail drainage catheter was placed into the collection. A total of 30 ccs thick avery fluid removed. Sample sent for labs. Drain sutured to the skin and sterile dressing applied. FINDINGS: Redemonstration of air containing fluid collection in the right paracolic gutter. Using CT guidance, a 10 Fr pigtail drainage catheter was placed into the collection. A total of 30 ccs thick avery colored fluid was aspirated. Sample sent for labs. IMPRESSION: 1. CT guided placement of a 10 Fr pigtail drain into the right abdominal abscess. 2. Samples obtained and sent to lab. Catherine Delatorre II, MD was in the room and participated during all iyer portions of this procedure. Table formatting from the original result was not included. Meds Meds Time Date Event Details User 3:57 PM 05/07/24 Timeout: Sign-in Signed by Arron Lamar RN at 05/07/2024 3:57 PM RC 4:06 PM 05/07/24 fentaNYL (SUBLIMAZE) injection 0-300 mcg Ordered and Given 50 mcg Given Rate: 0 Route: Intravenous RC 4:06 PM 05/07/24 midazolam (VERSED) injection 0-10 mg Ordered and Given 1 mg Given Rate: 0 Route: Intravenous RC 4:15 PM 05/07/24 fentaNYL (SUBLIMAZE) injection 0-300 mcg Given 25 mcg Given Rate: 0 Route: Intravenous RC 4:16 PM 05/07/24 midazolam (VERSED) injection 0-10 mg Given 0.5 mg Given Rate: 0 Route: Intravenous RC 4:18 PM 05/07/24 Timeout: TimeOut Signed by Arron Lamar RN at 05/07/2024 4:18 PM RC 4:19 PM 05/07/24 Lidocaine 2 % injection Ordered and Given 4 mL Given Rate: 0 Route: Other Comment: drain placement JK 4:24 PM 05/07/24 Timeout: Sign-out Signed by Arron Lamar RN at 05/07/2024 4:24 PM Physician Physician Time Date Event Details User 3:46 PM 05/07/24 Catherine Delatorre II, MD - Arrived Role: Primary Service: Interventional Radiology (Panel 1) 3:57 PM 05/07/24 Timeout: Sign-in Signed by Arron Lamar RN at 05/07/2024 3:57 PM RC 4:18 PM 05/07/24 Timeout: TimeOut Signed by Arron Lamar RN at 05/07/2024 4:18 PM RC 4:24 PM 05/07/24 Timeout: Sign-out Signed by Arron Lamar RN at 05/07/2024 4:24 PM RC 4:27 PM 05/07/24 Catherine Delatorre II, MD - Departed Role: Primary Service: Interventional Radiology (Panel 1) Normal [facility] BACTERIAL CULTURE AND DIRECT SMEAR, LESION, TISSUE, DEVICEon 05-09-2024 Bacteria identified Cx Nom (Unsp spec) NO GROWTH DAY 2 OF 2 [place] Bacteria identified Cx Nom ( Unsp spec)on 05-09-2024 Microscopic observation Other stain Nom (Unsp spec) Neutrophils, Heavy [facility] Microscopic observation Other stain Nom (Unsp spec) Mononuclear cells present [place] Microscopic observation Other stain Nom (Unsp spec) No organisms seen [facility] CBC,PLATELETSon 05-09-2024 Erythrocyte distribution width (RBC) [Ratio] 14.5 % High 10.9 - 14.3 % [place] Hematocrit (Bld) [Volume fraction] 27.7 % Low 39.6 - 48.8 % [place] Hemoglobin (Bld) [Mass/Vol] 8.8 g/dL Low 13.4 - 16.8 g/dL [place] Interpretation and review of laboratory results Abnormal [place] MCH (RBC) [Entitic mass] 29.2 pg 26.1 - 33.3 pg [place] MCHC (RBC) [Mass/Vol] 31.8 g/dL Low 31.9 - 36.5 g/dL [place] MCV (RBC) [Entitic vol] 92.0 fL 79.0 - 94.5 fL [place] Platelet mean volume (Bld) [Entitic vol] 8.5 fL Low 8.7 - 12.3 fL [place] Platelets (Bld) [#/Vol] 535 10*3/uL High 146 - 337 K/uL [place] RBC (Bld) [#/Vol] 3.01 10*6/uL Low [facility] WBC (Bld) [#/Vol] 9.56 10*3/uL 3.73 - 10.10 K/uL [facility] Hematocrit (Bld) [Volume fraction] 27.7 % Low 39.6-48.8 [facility] Comment on above: Performed By: #### T YPEC #### [place] (DEFAULT) [address] [place] [address] Hemoglobin (Bld) [Mass/Vol] 8.8 g/dL Low 13.4-16.8 [facility] Comment on above: Performed By: #### T YPEC #### [place] (DEFAULT) [address] [place] [address]4873 MCV (RBC) [Entitic vol] 92.0 fL Normal 79.0-94.5 [facility] Comment on above: Performed By: #### T YPEC #### [place] (DEFAULT) [address] [place] [address] 51881 Mean Cell Hgb 29.2 pg Normal 26.1-33.3 [facility] Comment on above: Performed By: #### T YPEC #### [place] (DEFAULT) [address] [place] [address] 93630 Mean Cell Hgb Conc 31.8 g/dL Low 31.9-36.5 [facility] Comment on above: Performed By: #### T YPEC #### [place] (DEFAULT) [address] [place] [address] 758[address] Platelet mean volume (Bld) [Entitic vol] 8.5 fL Low 8.7-12.3 [facility] Comment on above: Performed By: #### T YPEC #### [place] (DEFAULT) [address] [place] [address] 33219 Platelets (Bld) [#/Vol] 535 10*3/uL High 146-337 [facility] Comment on above: Performed By: #### T YPEC #### [place] (DEFAULT) [address] [place] [address] 48005 RBC (Bld) [#/Vol] 3.01 10*6/uL Low 4.38-5.83 [facility] Comment on above: Performed By: #### T YPEC #### [place] (DEFAULT) [address] [place] [address] RBC Distribution 14.5 % High 10.9-14.3 [facility] Comment on above: Performed By: #### T YPEC #### [place] (DEFAULT) [address] [place] [address] WBC (Bld) [#/Vol] 9.56 10*3/uL Normal 3.73-10.10 [facility] Comment on above: Performed By: #### T YPEC #### [place] (DEFAULT) [address] [place] [address] CHEM 7 (LYTES,BUN,CREA,GLUC) on 05-09-2024 Anion gap [Moles/Vol] 13 mmol/L 7 - 17 mmol/L [place] Chloride [Moles/Vol] 103 mmol/L 98 - 10 8 mmol/L [place] CO2 [Moles/Vol] 27 mmol/L 21 - 31 mmol/L [place] Creatinine [Mass/Vol] 0.72 mg/dL 0.70 - 1.30 mg/dL [place] eGFR, CKD-EPI, Male - PINF [facility] Comment on above: Reported eGFR is bas ed on the CKD-EPI 2020 equation using creatinine, age, and sex. Glucose [Mass/Vol] 110 mg/dL High 70 - 99 mg/dL [place] Interpretation and review of laboratory results Abnormal [place] Osmolality Calc [Osmolality] 293 [place] Potassium [Moles/Vol] 4.6 mmol/L 3.5 - 5.0 mmol/L [place] Sodium [Moles/Vol] 138 mmol/L 135 - 145 mmol/L [place] Urea nitrogen [Mass/Vol] 19 mg/dL 7 - 25 mg/dL [place] Urea nitrogen/Creatinine [Mass ratio] 26 mg/mg [facility] Anion gap [Moles/Vol] 13 mmol/L Normal 7-17 [facility] Comment on above: Performed By: #### C HM7 ####[place] (DEFAULT)[address] [place] [address] Chloride [Moles/Vol] 103 mmol/L Normal 98-108 [facility] Comment on above: Performed By: #### C HM7 ####[place] (DEFAULT)[address] [facility] [place] [address] CO2 [Moles/Vol] 27 mmol/L Normal 21-31 [facility] Comment on above: Performed By: #### C HM7 ####[place] (DEFAULT)[address] [facility] [place] [address] Creatinine [Mass/Vol] 0.72 mg/dL Normal 0.70-1.30 [facility] Comment on above: Performed By: #### C HM7 ####[place] (DEFAULT)[address] [facility] [place] [address] eGFR, CKD-EPI, Male > Normal >=60 [facility] Comment on above: Result Comment: Repo rted eGFR is based on the CKD-EPI 2020 equation using creatinine, age, and sex. Performed By: #### C HM7 ####[place] (DEFAULT)[address] [facility] [place] [address] Glucose [Mass/Vol] 110 mg/dL High 70-99 [facility] Comment on above: Performed By: #### C HM7 ####[place] (DEFAULT)[address] [facility] [place] [address] Osmolality [Osmolality] 293 mosm/kg Normal 278-305 [facility] Comment on above: Performed By: #### C HM7 ####[place] (DEFAULT)[address] [facility] [place] [address] Potassium [Moles/Vol] 4.6 mmol/L Normal 3.5-5.0 [facility] Comment on above: Performed By: #### C HM7 ####[place] (DEFAULT)[address] [facility] [place] [address] Sodium [Moles/Vol] 138 mmol/L Normal 135-145 [facility] Comment on above: Performed By: #### C HM7 ####[place] (DEFAULT)[address] [facility] [place] [address] Urea nitrogen [Mass/Vol] 19 mg/dL Normal 7-25 [facility] Comment on above: Performed By: #### C HM7 ####[place] (DEFAULT)[address] [facility] [address] Urea nitrogen/Creatinine [Mass ratio] 26 mg/mg Normal [facility] Comment on above: Performed By: #### C HM7 ####[place] (DEFAULT)[address] [facility] [address] CBC,PLATELETSon 05-08-2024 Erythrocyte distribution width (RBC) [Ratio] 14.4 % High 10.9 - 14.3 % [place] Hematocrit (Bld) [Volume fraction] 27.5 % Low 39.6 - 48.8 % [place] Hemoglobin (Bld) [Mass/Vol] 8.8 g/dL Low 13.4 - 16.8 g/dL [place] Interpretation and review of laboratory results Abnormal [place] MCH (RBC) [Entitic mass] 29.4 pg 26.1 - 33.3 pg [place] MCHC (RBC) [Mass/Vol] 32.0 g/dL 31.9 - 36.5 g/dL [place] MCV (RBC) [Entitic vol] 92.0 fL 79.0 - 94.5 fL [place] Platelet mean volume (Bld) [Entitic vol] 8.8 fL 8.7 - 12.3 fL [place] Platelets (Bld) [#/Vol] 520 10*3/uL High 146 - 337 K/uL [place] RBC (Bld) [#/Vol] 2.99 10*6/uL Low [facility] WBC (Bld) [#/Vol] 12.74 10*3/uL High 3.73 - 10.10 K/uL [facility] Hematocrit (Bld) [Volume fraction] 27.5 % Low 39.6-48.8 [facility] Comment on above: Performed By: #### Claire HMRosemary, IPB, MGO #### [place] (DEFAULT) [address] [address] Hemoglobin (Bld) [Mass/Vol] 8.8 g/dL Low 13.4-16.8 [facility] Comment on above: Performed By: #### Claire STAPLES, CASSIDYB, MGO #### [place] (DEFAULT) [address] [address] MCV (RBC) [Entitic vol] 92.0 fL Normal 79.0-94.5 [facility] Comment on above: Performed By: #### Claire STAPLES, CASSIDYB, MGO #### [place] (DEFAULT) [address] [place] [address]120 Mean Cell Hgb 29.4 pg Normal 26.1-33.3 [facility] Comment on above: Performed By: #### Claire STAPLES, IPB, MGO #### [place] (DEFAULT) [address] [place] [address] 79182 Mean Cell Hgb Conc 32.0 g/dL Normal 31.9-36.5 [facility] Comment on above: Performed By: #### Claire HMRosemary, IPB, MGO #### [place] (DEFAULT) [address] [address] Platelet mean volume (Bld) [Entitic vol] 8.8 fL Normal 8.7-12.3 [facility] Comment on above: Performed By: #### C HM7, IPB, MGO #### [facility] (DEFAULT) [address] [place] [address] Platelets (Bld) [#/Vol] 520 10*3/uL High 146-337 [facility] Comment on above: Performed By: #### Claire HM7, IPB, MGO #### [facility] (DEFAULT) [address] [place] [address] RBC (Bld) [#/Vol] 2.99 10*6/uL Low 4.38-5.83 [facility] Comment on above: Performed By: #### Claire HM7, IPB, MGO #### [facility] (DEFAULT) [address] [place] [address] RBC Distribution 14.4 % High 10.9-14.3 [facility] Comment on above: Performed By: #### Claire HM7, IPB, MGO #### [facility] (DEFAULT) [address] [place] [address] WBC (Bld) [#/Vol] 12.74 10*3/uL High 3.73-10.10 [facility] Comment on above: Performed By: #### Claire HM7, IPB, MGO #### [place] (DEFAULT) [address] [place] [address] CHEM 7 (LYTES,BUN,CREA,GLUC) on 05-08-2024 Anion gap [Moles/Vol] 14 mmol/L 7 - 17 mmol/L [place] Chloride [Moles/Vol] 101 mmol/L 98 - 10 8 mmol/L [place] CO2 [Moles/Vol] 26 mmol/L 21 - 31 mmol/L [place] Creatinine [Mass/Vol] 0.86 mg/dL 0.70 - 1.30 mg/dL [place] eGFR, CKD-EPI, Male - PINF [facility] Comment on above: Reported eGFR is bas ed on the CKD-EPI 2020 equation using creatinine, age, and sex. Glucose [Mass/Vol] 151 mg/dL High 70 - 99 mg/dL [place] Interpretation and review of laboratory results Abnormal [place] Osmolality Calc [Osmolality] 292 [place] Potassium [Moles/Vol] 4.0 mmol/L 3.5 - 5.0 mmol/L [place] Sodium [Moles/Vol] 137 mmol/L 135 - 145 mmol/L [place] Urea nitrogen [Mass/Vol] 18 mg/dL 7 - 25 mg/dL [place] Urea nitrogen/Creatinine [Mass ratio] 21 mg/mg [facility] Anion gap [Moles/Vol] 14 mmol/L Normal 7-17 [facility] Comment on above: Performed By: #### Claire STAPLES, CASSIDYB, MGO #### [place] (DEFAULT) [address] [place] [address] Chloride [Moles/Vol] 101 mmol/L Normal 98-108 [facility] Comment on above: Performed By: #### Claire HMRosemary, IPB, MGO #### [place] (DEFAULT) [address] [place] [address] CO2 [Moles/Vol] 26 mmol/L Normal 21-31 [facility] Comment on above: Performed By: #### Claire HMRosemary, IPB, MGO #### [place] (DEFAULT) [address] [place] [address] 82456 Creatinine [Mass/Vol] 0.86 mg/dL Normal 0.70-1.30 [facility] Comment on above: Performed By: #### Claire HMRosemary, IPB, MGO #### [place] (DEFAULT) [address] [place] [address] 08400 eGFR, CKD-EPI, Male > Normal >=60 [facility] Comment on above: Result Comment: Repo rted eGFR is based on the CKD-EPI 2020 equation using creatinine, age, and sex. Performed By: #### Claire STAPLES, IPB, MGO #### [facility] (DEFAULT) [address] [place] [address] Glucose [Mass/Vol] 151 mg/dL High 70-99 [facility] Comment on above: Performed By: #### C HM7, IPB, MGO #### [facility] (DEFAULT) [address] [place] [address] Osmolality [Osmolality] 292 mosm/kg Normal 278-305 [facility] Comment on above: Performed By: #### C HM7, IPB, MGO #### [facility] (DEFAULT) [address] [place] [address] Potassium [Moles/Vol] 4.0 mmol/L Normal 3.5-5.0 [facility] Comment on above: Performed By: #### Claire HM7, IPB, MGO #### [facility] (DEFAULT) [address] [place] [address] 9[address] Sodium [Moles/Vol] 137 mmol/L Normal 135-145 [facility] Comment on above: Performed By: #### C HM7, IPB, MGO #### [facility] (DEFAULT) [address] [place] [address] 99273 Urea nitrogen [Mass/Vol] 18 mg/dL Normal 7-25 [facility] Comment on above: Performed By: #### Claire HM7, IPB, MGO #### [facility] (DEFAULT) [address] [place] [address] Urea nitrogen/Creatinine [Mass ratio] 21 mg/mg Normal [facility] Comment on above: Performed By: #### C HM7, IPB, MGO #### [facility] (DEFAULT) [address] [place] [address] BACTERIAL CULTURE AND DIRECT SMEAR, LESION, TISSUE, DEVICEon 05-07-2024 Bacteria identified Cx Nom (Unsp spec) NO GROWTH DAY 2 OF 2 Normal [facility] Comment on above: Performed By: #### G EN #### [place] (DEFAULT) [address] [place] [address] Microscopic observation Gram stain Nom (Unsp spec) Normal [facility] Comment on above: Result Comment: Neut rophils, Heavy Mononuclear cells present No organisms seen Performed By: #### G EN #### [place] (DEFAULT) [address] [place] [address] CBC,PLATELETSon 05-07-2024 Erythrocyte distribution width (RBC) [Ratio] 14.6 % High 10.9 - 14.3 % [place] Hematocrit (Bld) [Volume fraction] 27.0 % Low 39.6 - 48.8 % [place] Hemoglobin (Bld) [Mass/Vol] 8.4 g/dL Low 13.4 - 16.8 g/dL [place] Interpretation and review of laboratory results Abnormal [place] MCH (RBC) [Entitic mass] 29.1 pg 26.1 - 33.3 pg [place] MCHC (RBC) [Mass/Vol] 31.1 g/dL Low 31.9 - 36.5 g/dL [place] MCV (RBC) [Entitic vol] 93.4 fL 79.0 - 94.5 fL [place] Platelet mean volume (Bld) [Entitic vol] 9.1 fL 8.7 - 12.3 fL [place] Platelets (Bld) [#/Vol] 508 10*3/uL High 146 - 337 K/uL [place] RBC (Bld) [#/Vol] 2.89 10*6/uL Low [facility] WBC (Bld) [#/Vol] 19.46 10*3/uL High 3.73 - 10.10 K/uL [facility] Hematocrit (Bld) [Volume fraction] 27.0 % Low 39.6-48.8 [facility] Comment on above: Performed By: #### C HM7, IPB, MGO #### [place] (DEFAULT) [address] [place] [address] Hemoglobin (Bld) [Mass/Vol] 8.4 g/dL Low 13.4-16.8 [facility] Comment on above: Performed By: #### Claire HM7, IPB, MGO #### [facility] (DEFAULT) [address] [place] [address]13 MCV (RBC) [Entitic vol] 93.4 fL Normal 79.0-94.5 [facility] Comment on above: Performed By: #### Claire HM7, IPB, MGO #### [facility] (DEFAULT) [address] [place] [address] 90108 Mean Cell Hgb 29.1 pg Normal 26.1-33.3 [facility] Comment on above: Performed By: #### Claire HM7, IPB, MGO #### [facility] (DEFAULT) [address] [place] [address] 28184 Mean Cell Hgb Conc 31.1 g/dL Low 31.9-36.5 [facility] Comment on above: Performed By: #### Claire HM7, IPB, MGO #### [facility] (DEFAULT) [address] [place] [address] Platelet mean volume (Bld) [Entitic vol] 9.1 fL Normal 8.7-12.3 [facility] Comment on above: Performed By: #### Claire HM7, IPB, MGO #### [place] (DEFAULT) [address] [place] [address] Platelets (Bld) [#/Vol] 508 10*3/uL High 146-337 [facility] Comment on above: Performed By: #### Claire HM7, IPB, MGO #### [facility] (DEFAULT) [address] [place] [address] RBC (Bld) [#/Vol] 2.89 10*6/uL Low 4.38-5.83 [facility] Comment on above: Performed By: #### Claire HM7, IPB, MGO #### [facility] (DEFAULT) [address] [place] [address] RBC Distribution 14.6 % High 10.9-14.3 [facility] Comment on above: Performed By: #### C HM7, IPB, MGO #### [facility] (DEFAULT) [address] [place] [address] WBC (Bld) [#/Vol] 19.46 10*3/uL High 3.73-10.10 [facility] Comment on above: Performed By: #### C HM7, IPB, MGO #### [place] (DEFAULT) [address] [place] [address] CHEM 7 (LYTES,BUN,CREA,GLUC) on 05-07-2024 Anion gap [Moles/Vol] 12 mmol/L 7 - 17 mmol/L [place] Chloride [Moles/Vol] 101 mmol/L 98 - 10 8 mmol/L [place] CO2 [Moles/Vol] 26 mmol/L 21 - 31 mmol/L [place] Creatinine [Mass/Vol] 0.85 mg/dL 0.70 - 1.30 mg/dL [place] eGFR, CKD-EPI, Male - PINF [facility] Comment on above: Reported eGFR is bas ed on the CKD-EPI 2020 equation using creatinine, age, and sex. Glucose [Mass/Vol] 91 mg/dL 70 - 99 mg/dL [place] Interpretation and review of laboratory results Abnormal [place] Osmolality Calc [Osmolality] 284 [place] Potassium [Moles/Vol] 4.7 mmol/L 3.5 - 5.0 mmol/L [place] Sodium [Moles/Vol] 134 mmol/L Low 135 - 145 mmol/L [place] Urea nitrogen [Mass/Vol] 18 mg/dL 7 - 25 mg/dL [place] Urea nitrogen/Creatinine [Mass ratio] 21 mg/mg [facility] Anion gap [Moles/Vol] 12 mmol/L Normal 7-17 [facility] Comment on above: Performed By: #### G EN #### [facility] (DEFAULT) [address] [place] [address] Chloride [Moles/Vol] 101 mmol/L Normal 98-108 [facility] Comment on above: Performed By: #### G EN #### [place] (DEFAULT) [address] [place] [address] CO2 [Moles/Vol] 26 mmol/L Normal 21-31 [facility] Comment on above: Performed By: #### G EN #### [facility] (DEFAULT) [address] [place] [address] Creatinine [Mass/Vol] 0.85 mg/dL Normal 0.70-1.30 [facility] Comment on above: Performed By: #### G EN #### [facility] (DEFAULT) [address] [place] [address] eGFR, CKD-EPI, Male > Normal >=60 [facility] Comment on above: Result Comment: Repo rted eGFR is based on the CKD-EPI 2020 equation using creatinine, age, and sex. Performed By: #### G EN #### [facility] (DEFAULT) [address] [place] [address] Glucose [Mass/Vol] 91 mg/dL Normal 70-99 [facility] Comment on above: Performed By: #### G EN #### [facility] (DEFAULT) [address] [place] [address] 098[address] Osmolality [Osmolality] 284 mosm/kg Normal 278-305 [facility] Comment on above: Performed By: #### G EN #### [facility] (DEFAULT) [address] [place] [address] Potassium [Moles/Vol] 4.7 mmol/L Normal 3.5-5.0 [facility] Comment on above: Performed By: #### G EN #### [facility] (DEFAULT) [address] [place] [address] Sodium [Moles/Vol] 134 mmol/L Low 135-145 [facility] Comment on above: Performed By: #### G EN #### [facility] (DEFAULT) [address] [place] [address] Urea nitrogen [Mass/Vol] 18 mg/dL Normal 7-25 [facility] Comment on above: Performed By: #### G EN #### [facility] (DEFAULT) [address] [place] [address] Urea nitrogen/Creatinine [Mass ratio] 21 mg/mg Normal [facility] Comment on above: Performed By: #### G EN #### [facility] (DEFAULT) [address] [place] [address] GENERAL PROCEDUREon 05-07-20 24 Catherine Delatorre II, MD - 05/07/2024 4:27 PM EDT INTERVENTIONAL RADIOLOGY BRIEF PROCEDURE NOTE PROCEDURE PERFORMED BY: MD Juan Ramon ATTENDING: MD Juan Ramon PROCEDURE DATE: 05/07/2024 4:27 PM PRE PROCEDURE DIAGNOSIS: History of right paracolic gutter abscess POST PROCEDURE DIAGNOSIS: History of right paracolic gutter abscess PROCEDURE: CT guided drain placement CONSENT: Informed consent was obtained prior to the procedure after discussion of the risks, benefits, and alternatives and expected outcomes were discussed with the patient; consent placed in chart. The possibilities of reaction to medication, pulmonary aspiration, bleeding, infection, the need for additional procedures, failure to diagnosis a condition, and creating a complication requiring transfusion or operation were discussed with the patient. The patient concurred with the proposed plan, giving informed consent. UNIVERSAL PROTOCOL: Preprocedure verification is complete- patient verified and consents confirmed. ANESTHESIA: Moderate Sedation ESTIMATED BLOOD LOSS: Minimal FINDINGS: Redemonstration of air containing fluid collection in the right paracolic gutter. Using CT guidance, a 10 Fr pigtail drainage catheter was placed into the collection. A total of 30 ccs thick avery colored fluid was aspirated. Sample sent for labs. CONDITION: Stable. Patient tolerated procedure well. COMPLICATIONS: None. SPECIMEN: 10 ccs thick avery fluid IMPRESSION/PLAN: CT guided placement of a 10 Fr pigtail drain into the right abdominal abscess. Samples obtained and sent to lab. [place] No Panel Informationon 05-07 [place] [facility] Study observation (narrative) [place] CBC,PLATELETSon 05-06-2024 Erythrocyte distribution width (RBC) [Ratio] 14.6 % High 10.9 - 14.3 % [place] Hematocrit (Bld) [Volume fraction] 28.5 % Low 39.6 - 48.8 % [place] Hemoglobin (Bld) [Mass/Vol] 8.9 g/dL Low 13.4 - 16.8 g/dL [place] Interpretation and review of laboratory results Abnormal [place] MCH (RBC) [Entitic mass] 28.9 pg 26.1 - 33.3 pg [place] MCHC (RBC) [Mass/Vol] 31.2 g/dL Low 31.9 - 36.5 g/dL [place] MCV (RBC) [Entitic vol] 92.5 fL 79.0 - 94.5 fL [place] Platelet mean volume (Bld) [Entitic vol] 8.4 fL Low 8.7 - 12.3 fL [place] Platelets (Bld) [#/Vol] 477 10*3/uL High 146 - 337 K/uL [place] RBC (Bld) [#/Vol] 3.08 10*6/uL Low [facility] WBC (Bld) [#/Vol] 19.40 10*3/uL High 3.73 - 10.10 K/uL [facility] Hematocrit (Bld) [Volume fraction] 28.5 % Low 39.6-48.8 [facility] Comment on above: Performed By: #### T YPEC #### [place] (DEFAULT) [address] [place] [address] Hemoglobin (Bld) [Mass/Vol] 8.9 g/dL Low 13.4-16.8 [facility] Comment on above: Performed By: #### T YPEC #### [facility] (DEFAULT) [address] [address] MCV (RBC) [Entitic vol] 92.5 fL Normal 79.0-94.5 [facility] Comment on above: Performed By: #### T YPEC #### [facility] (DEFAULT) [address] [address] Mean Cell Hgb 28.9 pg Normal 26.1-33.3 [facility] Comment on above: Performed By: #### T YPEC #### [place] (DEFAULT) [address] [address] Mean Cell Hgb Conc 31.2 g/dL Low 31.9-36.5 [facility] Comment on above: Performed By: #### T YPEC #### [place] (DEFAULT) [address] [address] Platelet mean volume (Bld) [Entitic vol] 8.4 fL Low 8.7-12.3 [facility] Comment on above: Performed By: #### T YPEC #### [place] (DEFAULT) [address] [address] Platelets (Bld) [#/Vol] 477 10*3/uL High 146-337 [facility] Comment on above: Performed By: #### T YPEC #### [place] (DEFAULT) [address] [address] RBC (Bld) [#/Vol] 3.08 10*6/uL Low 4.38-5.83 [facility] Comment on above: Performed By: #### T YPEC #### [place] (DEFAULT) [address] [address] RBC Distribution 14.6 % High 10.9-14.3 [facility] Comment on above: Performed By: #### T YPEC #### [place] (DEFAULT) [address] [place] [address] WBC (Bld) [#/Vol] 19.40 10*3/uL High 3.73-10.10 [facility] Comment on above: Performed By: #### T YPEC #### [place] (DEFAULT) [address] [place] [address] CHEM 7 (LYTES,BUN,CREA,GLUC) on 05-06-2024 Anion gap [Moles/Vol] 12 mmol/L 7 - 17 mmol/L [place] Chloride [Moles/Vol] 102 mmol/L 98 - 10 8 mmol/L [place] CO2 [Moles/Vol] 26 mmol/L 21 - 31 mmol/L [place] Creatinine [Mass/Vol] 0.73 mg/dL 0.70 - 1.30 mg/dL [place] eGFR, CKD-EPI, Male - PINF [facility] Comment on above: Reported eGFR is bas ed on the CKD-EPI 2020 equation using creatinine, age, and sex. Glucose [Mass/Vol] 98 mg/dL 70 - 99 mg/dL [place] Osmolality Calc [Osmolality] 285 [place] Potassium [Moles/Vol] 4.6 mmol/L 3.5 - 5.0 mmol/L [place] Sodium [Moles/Vol] 135 mmol/L 135 - 145 mmol/L [place] Urea nitrogen [Mass/Vol] 14 mg/dL 7 - 25 mg/dL [place] Urea nitrogen/Creatinine [Mass ratio] 19 mg/mg [facility] Anion gap [Moles/Vol] 12 mmol/L Normal 7-17 [facility] Comment on above: Performed By: #### C ELEN STAPLES MGO #### [facility] (DEFAULT) [address] [place] [address] Chloride [Moles/Vol] 102 mmol/L Normal 98-108 [facility] Comment on above: Performed By: #### C HM7, IPB, MGO #### [facility] (DEFAULT) [address] [place] [address] CO2 [Moles/Vol] 26 mmol/L Normal 21-31 [facility] Comment on above: Performed By: #### Claire HMRosemary, IPB, MGO #### [facility] (DEFAULT) [address] [place] [address] Creatinine [Mass/Vol] 0.73 mg/dL Normal 0.70-1.30 [facility] Comment on above: Performed By: #### Claire STAPLES, IPB, MGO #### [facility] (DEFAULT) [address] [place] [address] eGFR, CKD-EPI, Male > Normal >=60 [facility] Comment on above: Result Comment: Repo rted eGFR is based on the CKD-EPI 2020 equation using creatinine, age, and sex. Performed By: #### CASSIDY GAMBINOB, MGO #### [facility] (DEFAULT) [address] [place] [address] Glucose [Mass/Vol] 98 mg/dL Normal 70-99 [facility] Comment on above: Performed By: #### Claire STAPLES, CASSIDYB, MGO #### [facility] (DEFAULT) [address] [place] [address] Osmolality [Osmolality] 285 mosm/kg Normal 278-305 [facility] Comment on above: Performed By: #### Claire STAPLES, CASSIDYB, MGO #### [facility] (DEFAULT) [address] [place] [address] Potassium [Moles/Vol] 4.6 mmol/L Normal 3.5-5.0 [facility] Comment on above: Performed By: #### Claire HM7, IPB, MGO #### [place] (DEFAULT) [address] [place] [address] Sodium [Moles/Vol] 135 mmol/L Normal 135-145 [facility] Comment on above: Performed By: #### C HM7, IPB, MGO #### [place] (DEFAULT) [address] [place] [address] Urea nitrogen [Mass/Vol] 14 mg/dL Normal 7-25 [facility] Comment on above: Performed By: #### C HM7, IPB, MGO #### [place] (DEFAULT) [address] [place] [address] Urea nitrogen/Creatinine [Mass ratio] 19 mg/mg Normal [facility] Comment on above: Performed By: #### C HM7, IPB, MGO #### [place] (DEFAULT) [address] [place] [address] BACTERIAL CULTURE AND DIRECT SMEAR, LESION, TISSUE, DEVICEOrdered By: Laith Hernandez on 05-05-2024 Bacteria identified Cx Nom (Unsp spec) Growth [place] Bacteria identified Cx Nom (Unsp spec) ESCHERICHIA COLI Abnormal [place] Comment on above: Susceptibilities not routinely performed. Bacteria identified Cx Nom (Unsp spec) STREPTOCOCCUS ANGINOSUS GROUP Abnormal [place] Comment on above: Susceptibilities not routinely performed. Refer to specimen [id number] on 04/29/24 for requested susceptibilities. Bacteria identified Cx Nom ( Unsp spec)Ordered By: Laith Hernandez on 05-05-2024 Interpretation and review of laboratory results Abnormal [place] Microscopic observation Other stain Nom (Unsp spec) Neutrophils, Heavy [facility] Microscopic observation Other stain Nom (Unsp spec) Mononuclear cells present [place] Microscopic observation Other stain Nom (Unsp spec) Red Blood Cells Present [facility] Microscopic observation Other stain Nom (Unsp spec) Negative [place] Microscopic observation Other stain Nom (Unsp spec) Positive [facility] CBC,PLATELETSon 05-05-2024 Erythrocyte distribution width (RBC) [Ratio] 14.4 % High 10.9 - 14.3 % [place] Hematocrit (Bld) [Volume fraction] 27.5 % Low 39.6 - 48.8 % [place] Hemoglobin (Bld) [Mass/Vol] 8.8 g/dL Low 13.4 - 16.8 g/dL [place] Interpretation and review of laboratory results Abnormal [place] MCH (RBC) [Entitic mass] 29.3 pg 26.1 - 33.3 pg [place] MCHC (RBC) [Mass/Vol] 32.0 g/dL 31.9 - 36.5 g/dL [place] MCV (RBC) [Entitic vol] 91.7 fL 79.0 - 94.5 fL [place] Platelet mean volume (Bld) [Entitic vol] 8.5 fL Low 8.7 - 12.3 fL [place] Platelets (Bld) [#/Vol] 488 10*3/uL High 146 - 337 K/uL [place] RBC (Bld) [#/Vol] 3.00 10*6/uL Low [facility] WBC (Bld) [#/Vol] 17.33 10*3/uL High 3.73 - 10.10 K/uL [facility] Hematocrit (Bld) [Volume fraction] 27.5 % Low 39.6-48.8 [facility] Comment on above: Performed By: #### G EN #### [place] (DEFAULT) [address] [address] Hemoglobin (Bld) [Mass/Vol] 8.8 g/dL Low 13.4-16.8 [facility] Comment on above: Performed By: #### G EN #### [place] (DEFAULT) [address] [address] MCV (RBC) [Entitic vol] 91.7 fL Normal 79.0-94.5 [facility] Comment on above: Performed By: #### G EN #### [place] (DEFAULT) [address] [address] Mean Cell Hgb 29.3 pg Normal 26.1-33.3 [facility] Comment on above: Performed By: #### G EN #### [place] (DEFAULT) [address] [address] Mean Cell Hgb Conc 32.0 g/dL Normal 31.9-36.5 [facility] Comment on above: Performed By: #### G EN #### [facility] (DEFAULT) [address] [address] Platelet mean volume (Bld) [Entitic vol] 8.5 fL Low 8.7-12.3 [facility] Comment on above: Performed By: #### G EN #### [place] (DEFAULT) [address] [address] Platelets (Bld) [#/Vol] 488 10*3/uL High 146-337 [facility] Comment on above: Performed By: #### G EN #### [place] (DEFAULT) [address] [address] RBC (Bld) [#/Vol] 3.00 10*6/uL Low 4.38-5.83 [facility] Comment on above: Performed By: #### G EN #### [place] (DEFAULT) [address] [address] RBC Distribution 14.4 % High 10.9-14.3 [facility] Comment on above: Performed By: #### G EN #### [place] (DEFAULT) [address] [address] WBC (Bld) [#/Vol] 17.33 10*3/uL High 3.73-10.10 [facility] Comment on above: Performed By: #### G EN #### [place] (DEFAULT) [address] [address] CHEM 7 (LYTES,BUN,CREA,GLUC) on 05-05-2024 Anion gap [Moles/Vol] 14 mmol/L 7 - 17 mmol/L [place] Chloride [Moles/Vol] 102 mmol/L 98 - 10 8 [facility] CO[facility] [Moles/Vol] 24 mmol/L 21 - 31 mmol/L [place] Creatinine [Mass/Vol] 0.73 mg/dL 0.70 - 1.30 mg/dL [place] eGFR, CKD-EPI, Male - PINF [facility] Comment on above: Reported eGFR is bas ed on the CKD-EPI 2020 equation using creatinine, age, and sex. Glucose [Mass/Vol] 104 mg/dL High 70 - 99 mg/dL [place] Interpretation and review of laboratory results Abnormal [place] Osmolality Calc [Osmolality] 285 [place] Potassium [Moles/Vol] 4.5 mmol/L 3.5 - 5.0 mmol/L [place] Sodium [Moles/Vol] 135 mmol/L 135 - 145 mmol/L [place] Urea nitrogen [Mass/Vol] 13 mg/dL 7 - 25 mg/dL [place] Urea nitrogen/Creatinine [Mass ratio] 18 mg/mg [place] Anion gap [Moles/Vol] 14 mmol/L Normal 7-17 [facility] Comment on above: Performed By: #### Claire STAPLES, CASSIDYB, MGO #### [place] (DEFAULT) [address] [place] [address] Chloride [Moles/Vol] 102 mmol/L Normal 98-108 [facility] Comment on above: Performed By: #### Claire STAPLES, IPB, MGO #### [place] (DEFAULT) [address] [place] [address] CO2 [Moles/Vol] 24 mmol/L Normal 21-31 [facility] Comment on above: Performed By: #### Claire HMRosemary, IPB, MGO #### [place] (DEFAULT) [address] [place] [address] Creatinine [Mass/Vol] 0.73 mg/dL Normal 0.70-1.30 [facility] Comment on above: Performed By: #### C HM7, IPB, MGO #### [facility] (DEFAULT) [address] [place] [address] eGFR, CKD-EPI, Male > Normal >=60 [facility] Comment on above: Result Comment: Repo rted eGFR is based on the CKD-EPI 2020 equation using creatinine, age, and sex. Performed By: #### C HM7, IPB, MGO #### [facility] (DEFAULT) [address] [place] [address] Glucose [Mass/Vol] 104 mg/dL High 70-99 [facility] Comment on above: Performed By: #### C HM7, IPB, MGO #### [facility] (DEFAULT) [address] [place] [address] Osmolality [Osmolality] 285 mosm/kg Normal 278-305 [facility] Comment on above: Performed By: #### C HM7, IPB, MGO #### [facility] (DEFAULT) [address] [place] [address] Potassium [Moles/Vol] 4.5 mmol/L Normal 3.5-5.0 [facility] Comment on above: Performed By: #### C HM7, IPB, MGO #### [facility] (DEFAULT) [address] [place] [address] Sodium [Moles/Vol] 135 mmol/L Normal 135-145 [facility] Comment on above: Performed By: #### C HM7, IPB, MGO #### [facility] (DEFAULT) [address] [place] [address] Urea nitrogen [Mass/Vol] 13 mg/dL Normal 7-25 [facility] Comment on above: Performed By: #### C HM7, IPB, MGO #### [facility] (DEFAULT) [address] [place] [address] Urea nitrogen/Creatinine [Mass ratio] 18 mg/mg Normal [facility] Comment on above: Performed By: #### C HM7, IPB, MGO #### [facility] (DEFAULT) [address] [place] [address] [address] ABDOMEN/PELVIS WITH CONTR Yeison 05-05-2024 CT ABDOMEN/PELVIS WITH CONTRAST EXAM: CT ABDOMEN/PELVIS WITH CONTRAST, 05/05/2024 14:46 PM COMPARISON: CT abdomen pelvis from April 29, 2024 CLINICAL INDICATIONS: re-evaluate intraabdominal fluid collection - patient with elevated wbc still following IR drainage of collection CTAP with IV AND PO Contrast please; TECHNIQUE: CT scanning was performed of the abdomen and pelvis following the administration of intravenous contrast. PROTOCOL: Standard. CONTRAST: iohexol (OMNIPAQUE) 350 MG/ML injection 1-171 mL; Route of Administration: Intravenous; Dose: 70 mL. FINDINGS: Lung Bases: Bibasilar atelectasis. Lower mediastinal structures are unremarkable. Liver: Normal size and morphology. Previously seen periportal edema has resolved. No focal lesion. Gallbladder: Similar to the prior exam there is pericholecystic edema which likely relates to the adjacent abscess, not the gallbladder itself. No stones or wall thickening. Bile Ducts: Normal in caliber. Spleen: Normal. Pancreas: Normal. Adrenals: Normal. Right Kidney: Normal size. Mild prominence of the collecting system and ureter, improved from the hydroureteronephrosis seen previously. Left Kidney: Normal size. Mild prominence of the collecting system and ureter, improved from the hydroureteronephrosis seen previously. Too small to characterize cortical hypodensities. Gastrointestinal: Stomach is unremarkable. Scattered areas of bowel wall thickening adjacent to the abscesses. Postoperative changes from partial colectomy with a rectal stump and left lower quadrant colostomy. The previously noted polypoid lesion in the rectal stump measures 3.6 x 2.7 cm (series 2 image 132), previously 3.7 x 2.7 cm. No evidence of bowel obstruction. There has been interval percutaneous drain placement into the previously seen perirectal abscess. Disc now measures up to 4.0 x 2.5 cm (series 2 image 121), previously 8.0 x 7.0 cm. Peritoneum/retroperitoneum : Trace ascites. Diffuse mesenteric edema. The abscess along the right paracolic gutter/inferior liver measures up to 7.8 x 4.0 cm (series 2 image 72), previously 9.2 x 4.4 cm. As noted previously, there is a thin tract extending between this abscess and the pelvic collection, which may represent communication. The additional abscesses seen in the right lower quadrant (series 2 image 80) and left lower quadrant (series 2 image 107) also appear decreased in size compared to the prior exam. Lymph nodes: No enlarged or morphologically abnormal lymph nodes. Vasculature: The abdominal aorta is normal in course and caliber. Patent celiac and superior mesenteric arteries. Patent portal, splenic, and superior mesenteric veins. Bladder: Partially distended with a Cisneros catheter in place. Associated intraluminal air. Bladder wall appears thickened even for underdistention, probably reactive from adjacent collections. Pelvic Organs: Mild prostatomegaly. Scattered prostatic calcifications. Body Wall: Drainage catheter traverses the right gluteal region. Left lower quadrant colostomy. Midline abdominal wound with internal dense material which could represent dense packing material, though oral contrast is not excluded. No clear communication with underlying bowel loops. Bones: Normal for patient age. No aggressive lesion. IMPRESSION: 1. Interval percutaneous drain placement into the perirectal abscess with decreased size of the collection. Multiple additional abdominal abscesses as above, all slightly decreased in size from the prior exam. 2. Partial colectomy with rectal stump and left lower quadrant colostomy. Stable polypoid lesion within the rectal stump. No evidence of bowel obstruction. 3. Reactive inflammatory changes within the bowel loops, bladder, and gallbladder in close proximity to the abscesses. 4. Similar appearance of the midline abdominal wound with internal dense material which could be related to dense packing material or oral contrast. Again, no discrete fistula is identified by CT. 5. Mild prominence of both renal collecting systems and ureters, improved from the hydroureteronephrosis seen previously. Normal [facility] CT Abdomen and Pelvis W cont rast Demarcus 05-05-2024 IMPRESSION: 1. Interval percutaneous drain placement into the perirectal abscess with decreased size of the collection. Multiple additional abdominal abscesses as above, all slightly decreased in size from the prior exam. 2. Partial colectomy with rectal stump and left lower quadrant colostomy. Stable polypoid lesion within the rectal stump. No evidence of bowel obstruction. 3. Reactive inflammatory changes within the bowel loops, bladder, and gallbladder in close proximity to the abscesses. 4. Similar appearance of the midline abdominal wound with internal dense material which could be related to dense packing material or oral contrast. Again, no discrete fistula is identified by CT. 5. Mild prominence of both renal collecting systems and ureters, improved from the hydroureteronephrosis seen previously. OLOGY EXAM: CT ABDOMEN/PEL VIS WITH CONTRAST, 05/05/2024 14:46 PM COMPARISON: CT abdomen pelvis from April 29, 2024 CLINICAL INDICATIONS: re-evaluate intraabdominal fluid collection - patient with elevated wbc still following IR drainage of collection CTAP with IV AND PO Contrast please; TECHNIQUE: CT scanning was performed of the abdomen and pelvis following the administration of intravenous contrast. PROTOCOL: Standard. CONTRAST: iohexol (OMNIPAQUE) 350 MG/ML injection 1-171 mL; Route of Administration: Intravenous; Dose: 70 mL. FINDINGS: Lung Bases: Bibasilar atelectasis. Lower mediastinal structures are unremarkable. Liver: Normal size and morphology. Previously seen periportal edema has resolved. No focal lesion. Gallbladder: Similar to the prior exam there is pericholecystic edema which likely relates to the adjacent abscess, not the gallbladder itself. No stones or wall thickening. Bile Ducts: Normal in caliber. Spleen: Normal. Pancreas: Normal. Adrenals: Normal. Right Kidney: Normal size. Mild prominence of the collecting system and ureter, improved from the hydroureteronephrosis seen previously. Left Kidney: Normal size. Mild prominence of the collecting system and ureter, improved from the hydroureteronephrosis seen previously. Too small to characterize cortical hypodensities. Gastrointestinal: Stomach is unremarkable. Scattered areas of bowel wall thickening adjacent to the abscesses. Postoperative changes from partial colectomy with a rectal stump and left lower quadrant colostomy. The previously noted polypoid lesion in the rectal stump measures 3.6 x 2.7 cm (series 2 image 132), previously 3.7 x 2.7 cm. No evidence of bowel obstruction. There has been interval percutaneous drain placement into the previously seen perirectal abscess. Disc now measures up to 4.0 x 2.5 cm (series 2 image 121), previously 8.0 x 7.0 cm. Peritoneum/retroperitoneum : Trace ascites. Diffuse mesenteric edema. The abscess along the right paracolic gutter/inferior liver measures up to 7.8 x 4.0 cm (series 2 image 72), previously 9.2 x 4.4 cm. As noted previously, there is a thin tract extending between this abscess and the pelvic collection, which may represent communication. The additional abscesses seen in the right lower quadrant (series 2 image 80) and left lower quadrant (series 2 image 107) also appear decreased in size compared to the prior exam. Lymph nodes: No enlarged or morphologically abnormal lymph nodes. Vasculature: The abdominal aorta is normal in course and caliber. Patent celiac and superior mesenteric arteries. Patent portal, splenic, and superior mesenteric veins. Bladder: Partially distended with a Cisneros catheter in place. Associated intraluminal air. Bladder wall appears thickened even for underdistention, probably reactive from adjacent collections. Pelvic Organs: Mild prostatomegaly. Scattered prostatic calcifications. Body Wall: Drainage catheter traverses the right gluteal region. Left lower quadrant colostomy. Midline abdominal wound with internal dense material which could represent dense packing material, though oral contrast is not excluded. No clear communication with underlying bowel loops. Bones: Normal for patient age. No aggressive lesion. RADIOLOGY Flip León M D - 05/05/2024 EXAM: CT ABDOMEN/PELVIS WITH CONTRAST, 05/05/2024 14:46 PM COMPARISON: CT abdomen pelvis from April 29, 2024 CLINICAL INDICATIONS: re-evaluate intraabdominal fluid collection - patient with elevated wbc still following IR drainage of collection CTAP with IV AND PO Contrast please; TECHNIQUE: CT scanning was performed of the abdomen and pelvis following the administration of intravenous contrast. PROTOCOL: Standard. CONTRAST: iohexol (OMNIPAQUE) 350 MG/ML injection 1-171 mL; Route of Administration: Intravenous; Dose: 70 mL. FINDINGS: Lung Bases: Bibasilar atelectasis. Lower mediastinal structures are unremarkable. Liver: Normal size and morphology. Previously seen periportal edema has resolved. No focal lesion. Gallbladder: Similar to the prior exam there is pericholecystic edema which likely relates to the adjacent abscess, not the gallbladder itself. No stones or wall thickening. Bile Ducts: Normal in caliber. Spleen: Normal. Pancreas: Normal. Adrenals: Normal. Right Kidney: Normal size. Mild prominence of the collecting system and ureter, improved from the hydroureteronephrosis seen previously. Left Kidney: Normal size. Mild prominence of the collecting system and ureter, improved from the hydroureteronephrosis seen previously. Too small to characterize cortical hypodensities. Gastrointestinal: Stomach is unremarkable. Scattered areas of bowel wall thickening adjacent to the abscesses. Postoperative changes from partial colectomy with a rectal stump and left lower quadrant colostomy. The previously noted polypoid lesion in the rectal stump measures 3.6 x 2.7 cm (series 2 image 132), previously 3.7 x 2.7 cm. No evidence of bowel obstruction. There has been interval percutaneous drain placement into the previously seen perirectal abscess. Disc now measures up to 4.0 x 2.5 cm (series 2 image 121), previously 8.0 x 7.0 cm. Peritoneum/retroperitoneum : Trace ascites. Diffuse mesenteric edema. The abscess along the right paracolic gutter/inferior liver measures up to 7.8 x 4.0 cm (series 2 image 72), previously 9.2 x 4.4 cm. As noted previously, there is a thin tract extending between this abscess and the pelvic collection, which may represent communication. The additional abscesses seen in the right lower quadrant (series 2 image 80) and left lower quadrant (series 2 image 107) also appear decreased in size compared to the prior exam. Lymph nodes: No enlarged or morphologically abnormal lymph nodes. Vasculature: The abdominal aorta is normal in course and caliber. Patent celiac and superior mesenteric arteries. Patent portal, splenic, and superior mesenteric veins. Bladder: Partially distended with a Cisneros catheter in place. Associated intraluminal air. Bladder wall appears thickened even for underdistention, probably reactive from adjacent collections. Pelvic Organs: Mild prostatomegaly. Scattered prostatic calcifications. Body Wall: Drainage catheter traverses the right gluteal region. Left lower quadrant colostomy. Midline abdominal wound with internal dense material which could represent dense packing material, though oral contrast is not excluded. No clear communication with underlying bowel loops. Bones: Normal for patient age. No aggressive lesion. IMPRESSION IMPRESSION: 1. Interval percutaneous drain placement into the perirectal abscess with decreased size of the collection. Multiple additional abdominal abscesses as above, all slightly decreased in size from the prior exam. 2. Partial colectomy with rectal stump and left lower quadrant colostomy. Stable polypoid lesion within the rectal stump. No evidence of bowel obstruction. 3. Reactive inflammatory changes within the bowel loops, bladder, and gallbladder in close proximity to the abscesses. 4. Similar appearance of the midline abdominal wound with internal dense material which could be related to dense packing material or oral contrast. Again, no discrete fistula is identified by CT. 5. Mild prominence of both renal collecting systems and ureters, improved from the hydroureteronephrosis seen previously. [facility] Study observation (narrative) [place] Abdomen and Pelvis W cont rast IVOrdered By: Flip León on 05-05-2024 [facility] Work Phone: MAGNESIUMon 05-05-2024 Magnesium [Mass/Vol] 2.2 mg/dL 1.6 - 2 .6 mg/dL [place] Magnesium [Mass/Vol] 2.2 mg/dL Normal 1.6-2.6 [facility] Comment on above: Performed By: #### C HM7, IPB, MGO #### [place] (DEFAULT) [address] [place] [address] No Panel Informationon 05-05 Interpretation and review of laboratory results Normal [facility] PHOSPHATE, INORGANICon 05-05 Phosphate [Mass/Vol] 2.9 mg/dL 2.2 - 4 .6 mg/dL [facility] Phosphorous 2.9 mg/dL Normal 2.2-4.6 [facility] Comment on above: Performed By: #### T YPEC #### [place] (DEFAULT) [address] [place] [employer], [place] [id number] CBC,PLATELETSon 05-04-2024 Erythrocyte distribution width (RBC) [Ratio] 14.2 % 10.9 - 14.3 % [facility] Hematocrit (Bld) [Volume fraction] 28.4 % Low 39.6 - 48.8 % [facility] Hemoglobin (Bld) [Mass/Vol] 9.1 g/dL Low 13.4 - 16.8 g/dL [facility] Interpretation and review of laboratory results Abnormal [facility] MCH (RBC) [Entitic mass] 29.5 pg 26.1 - 33.3 pg [facility] MCHC (RBC) [Mass/Vol] 32.0 g/dL 31.9 - 36.5 g/dL [place] MCV (RBC) [Entitic vol] 92.2 fL 79.0 - 94.5 fL [facility] Platelet mean volume (Bld) [Entitic vol] 8.7 fL 8.7 - 12.3 fL [facility] Platelets (Bld) [#/Vol] 487 10*3/uL High 146 - 337 K/uL [place] RBC (Bld) [#/Vol] 3.08 10*6/uL Low [facility] WBC (Bld) [#/Vol] 13.02 10*3/uL High 3.73 - 10.10 K/uL [facility] Hematocrit (Bld) [Volume fraction] 28.4 % Low 39.6-48.8 [facility] Comment on above: Performed By: #### ELEN GAMBINO MGO #### [place] (DEFAULT) [address] [address] Hemoglobin (Bld) [Mass/Vol] 9.1 g/dL Low 13.4-16.8 [facility] Comment on above: Performed By: #### ELEN GAMBINO MGAlan #### [place] (DEFAULT) [address] [address] MCV (RBC) [Entitic vol] 92.2 fL Normal 79.0-94.5 [facility] Comment on above: Performed By: #### ELEN GAMBINO, MGAlan #### [place] (DEFAULT) [address] [address] Mean Cell Hgb 29.5 pg Normal 26.1-33.3 [facility] Comment on above: Performed By: #### C HM7, IPB, MGO #### [facility] (DEFAULT) [address] [place] [address] Mean Cell Hgb Conc 32.0 g/dL Normal 31.9-36.5 [facility] Comment on above: Performed By: #### C HM7, IPB, MGO #### [facility] (DEFAULT) [address] [place] [address] Platelet mean volume (Bld) [Entitic vol] 8.7 fL Normal 8.7-12.3 [facility] Comment on above: Performed By: #### C HM7, IPB, MGO #### [facility] (DEFAULT) [address] [place] [address] Platelets (Bld) [#/Vol] 487 10*3/uL High 146-337 [facility] Comment on above: Performed By: #### Claire HM7, IPB, MGO #### [place] (DEFAULT) [address] [place] [address] RBC (Bld) [#/Vol] 3.08 10*6/uL Low 4.38-5.83 [facility] Comment on above: Performed By: #### Claire HM7, IPB, MGO #### [facility] (DEFAULT) [address] [place] [address] RBC Distribution 14.2 % Normal 10.9-14.3 [facility] Comment on above: Performed By: #### C HM7, IPB, MGO #### [facility] (DEFAULT) [address] [place] [address] WBC (Bld) [#/Vol] 13.02 10*3/uL High 3.73-10.10 [facility] Comment on above: Performed By: #### C HM7, IPB, MGO #### [facility] (DEFAULT) [address] [place] [address] CHEM 7 (LYTES,BUN,CREA,GLUC) on 05-04-2024 Anion gap [Moles/Vol] 13 mmol/L 7 - 17 mmol/L [facility] Chloride [Moles/Vol] 103 mmol/L 98 - 10 8 mmol/L [place] CO2 [Moles/Vol] 26 mmol/L 21 - 31 mmol/L [facility] Creatinine [Mass/Vol] 0.66 mg/dL Low 0.70 - 1.30 mg/dL [place] eGFR, CKD-EPI, Male - PINF [facility] Comment on above: Reported eGFR is bas ed on the CKD-EPI 2020 equation using creatinine, age, and sex. Glucose [Mass/Vol] 100 mg/dL High 70 - 99 mg/dL [facility] Interpretation and review of laboratory results Abnormal [facility] Osmolality Calc [Osmolality] 287 [facility] Potassium [Moles/Vol] 4.5 mmol/L 3.5 - 5.0 mmol/L [facility] Sodium [Moles/Vol] 137 mmol/L 135 - 145 mmol/L [facility] Urea nitrogen [Mass/Vol] 9 mg/dL 7 - 25 mg/dL [facility] Urea nitrogen/Creatinine [Mass ratio] 14 mg/mg [facility] Anion gap [Moles/Vol] 13 mmol/L Normal 7-17 [facility] Comment on above: Performed By: #### G EN #### [place] (DEFAULT) [address] [place] [address] Chloride [Moles/Vol] 103 mmol/L Normal 98-108 [facility] Comment on above: Performed By: #### G EN #### [place] (DEFAULT) [address] [place] [address] CO2 [Moles/Vol] 26 mmol/L Normal 21-31 [facility] Comment on above: Performed By: #### G EN #### [place] (DEFAULT) [address] [place] [address] Creatinine [Mass/Vol] 0.66 mg/dL Low 0.70-1.30 [facility] Comment on above: Performed By: #### G EN #### [facility] (DEFAULT) [address] [place] [address] eGFR, CKD-EPI, Male > Normal >=60 [facility] Comment on above: Result Comment: Repo rted eGFR is based on the CKD-EPI 2020 equation using creatinine, age, and sex. Performed By: #### G EN #### [facility] (DEFAULT) [address] [place] [address] Glucose [Mass/Vol] 100 mg/dL High 70-99 [facility] Comment on above: Performed By: #### G EN #### [facility] (DEFAULT) [address] [place] [address] Osmolality [Osmolality] 287 mosm/kg Normal 278-305 [facility] Comment on above: Performed By: #### G EN #### [facility] (DEFAULT) [address] [place] [address] Potassium [Moles/Vol] 4.5 mmol/L Normal 3.5-5.0 [facility] Comment on above: Performed By: #### G EN #### [place] (DEFAULT) [address] [place] [address] Sodium [Moles/Vol] 137 mmol/L Normal 135-145 [facility] Comment on above: Performed By: #### G EN #### [facility] (DEFAULT) [address] [place] [address] Urea nitrogen [Mass/Vol] 9 mg/dL Normal 7-25 [facility] Comment on above: Performed By: #### G EN #### [place] (DEFAULT) [address] [place] [address] Urea nitrogen/Creatinine [Mass ratio] 14 mg/mg Normal [facility] Comment on above: Performed By: #### G EN #### [place] (DEFAULT) [address] [place] [address] MAGNESIUMon 05-04-2024 Magnesium [Mass/Vol] 2.1 mg/dL 1.6 - 2 .6 mg/dL [place] Magnesium [Mass/Vol] 2.1 mg/dL Normal 1.6-2.6 [facility] Comment on above: Performed By: #### U [id number] #### [place] (DEFAULT) [address] [place] [address] No Panel Informationon 05-04 Interpretation and review of laboratory results Normal [facility] PHOSPHATE, INORGANICon 05-04 Phosphate [Mass/Vol] 2.5 mg/dL 2.2 - 4 .6 mg/dL [place] Phosphorous 2.5 mg/dL Normal 2.2-4.6 [facility] Comment on above: Performed By: #### U [id number] #### [place] (DEFAULT) [address] [place] [address] CBC,PLATELETSon 05-03-2024 Erythrocyte distribution width (RBC) [Ratio] 13.8 % 10.9 - 14.3 % [facility] Hematocrit (Bld) [Volume fraction] 28.3 % Low 39.6 - 48.8 % [facility] Hemoglobin (Bld) [Mass/Vol] 8.9 g/dL Low 13.4 - 16.8 g/dL [facility] Interpretation and review of laboratory results Abnormal [facility] MCH (RBC) [Entitic mass] 28.6 pg 26.1 - 33.3 pg [facility] MCHC (RBC) [Mass/Vol] 31.4 g/dL Low 31.9 - 36.5 g/dL [facility] MCV (RBC) [Entitic vol] 91.0 fL 79.0 - 94.5 fL [facility] Platelet mean volume (Bld) [Entitic vol] 8.8 fL 8.7 - 12.3 fL [facility] Platelets (Bld) [#/Vol] 448 10*3/uL High 146 - 337 K/uL [facility] RBC (Bld) [#/Vol] 3.11 10*6/uL Low [facility] WBC (Bld) [#/Vol] 16.82 10*3/uL High 3.73 - 10.10 K/uL [facility] Hematocrit (Bld) [Volume fraction] 28.3 % Low 39.6-48.8 [facility] Comment on above: Performed By: #### H EMOGC ####[place] (DEFAULT)[address] [place] [address] Hemoglobin (Bld) [Mass/Vol] 8.9 g/dL Low 13.4-16.8 [facility] Comment on above: Performed By: #### H EMOGC ####[place] (DEFAULT)[address] [place] [address] MCV (RBC) [Entitic vol] 91.0 fL Normal 79.0-94.5 [facility] Comment on above: Performed By: #### H EMOGC ####[place] (DEFAULT)[address] [place] [address] Mean Cell Hgb 28.6 pg Normal 26.1-33.3 [facility] Comment on above: Performed By: #### H EMOGC ####[place] (DEFAULT)[address] [place] [address] Mean Cell Hgb Conc 31.4 g/dL Low 31.9-36.5 [facility] Comment on above: Performed By: #### H EMOGC ####[place] (DEFAULT)[address] [place] [address] Platelet mean volume (Bld) [Entitic vol] 8.8 fL Normal 8.7-12.3 [facility] Comment on above: Performed By: #### H EMOGC ####[place] (DEFAULT)[address] [place] [address] Platelets (Bld) [#/Vol] 448 10*3/uL High 146-337 [facility] Comment on above: Performed By: #### H [facility] ####[place] (DEFAULT)[address] [place] [address] RBC (Bld) [#/Vol] 3.11 10*6/uL Low 4.38-5.83 [facility] Comment on above: Performed By: #### H [facility] ####[place] (DEFAULT)[address] [facility] [place] [address] RBC Distribution 13.8 % Normal 10.9-14.3 [facility] Comment on above: Performed By: #### H [facility] ####[place] (DEFAULT)[address] [place] [address] WBC (Bld) [#/Vol] 16.82 10*3/uL High 3.73-10.10 [facility] Comment on above: Performed By: #### H [facility] ####[place] (DEFAULT)[address] [place] [address] CHEM 7 (LYTES,BUN,CREA,GLUC) on 05-03-2024 Anion gap [Moles/Vol] 12 mmol/L 7 - 17 mmol/L [place] Chloride [Moles/Vol] 103 mmol/L 98 - 10 8 mmol/L [place] CO2 [Moles/Vol] 26 mmol/L 21 - 31 mmol/L [place] Creatinine [Mass/Vol] 0.68 mg/dL Low 0.70 - 1.30 mg/dL [place] eGFR, CKD-EPI, Male - PINF [facility] Comment on above: Reported eGFR is bas ed on the CKD-EPI 2020 equation using creatinine, age, and sex. Glucose [Mass/Vol] 102 mg/dL High 70 - 99 mg/dL [place] Interpretation and review of laboratory results Abnormal [facility] Osmolality Calc [Osmolality] 286 [place] Potassium [Moles/Vol] 4.2 mmol/L 3.5 - 5.0 mmol/L [place] Sodium [Moles/Vol] 137 mmol/L 135 - 145 mmol/L [facility] Urea nitrogen [Mass/Vol] 7 mg/dL 7 - 25 mg/dL [facility] Urea nitrogen/Creatinine [Mass ratio] 10 mg/mg [facility] Anion gap [Moles/Vol] 12 mmol/L Normal 7-17 [facility] Comment on above: Performed By: #### ELEN GAMBINO, MGO #### [place] (DEFAULT) [address] [place] [address] Chloride [Moles/Vol] 103 mmol/L Normal 98-108 [facility] Comment on above: Performed By: #### Claire STAPLES, CASSIDYB, MGO #### [place] (DEFAULT) [address] [place] [address] CO2 [Moles/Vol] 26 mmol/L Normal 21-31 [facility] Comment on above: Performed By: #### Claire STAPLES, IPB, MGO #### [place] (DEFAULT) [address] [place] [address] Creatinine [Mass/Vol] 0.68 mg/dL Low 0.70-1.30 [facility] Comment on above: Performed By: #### Claire STAPLES, IPB, MGO #### [place] (DEFAULT) [address] [place] [address] eGFR, CKD-EPI, Male > Normal >=60 [facility] Comment on above: Result Comment: Repo rted eGFR is based on the CKD-EPI 2020 equation using creatinine, age, and sex. Performed By: #### Claire STAPLES, IPB, MGO #### [place] (DEFAULT) [address] [place] [address] Glucose [Mass/Vol] 102 mg/dL High 70-99 [facility] Comment on above: Performed By: #### Claire HM7, IPB, MGO #### [facility] (DEFAULT) [address] [place] [address] Osmolality [Osmolality] 286 mosm/kg Normal 278-305 [facility] Comment on above: Performed By: #### Claire HM7, IPB, MGO #### [facility] (DEFAULT) [address] [place] [address] Potassium [Moles/Vol] 4.2 mmol/L Normal 3.5-5.0 [facility] Comment on above: Performed By: #### Claire HM7, IPB, MGO #### [facility] (DEFAULT) [address] [place] [address] Sodium [Moles/Vol] 137 mmol/L Normal 135-145 [facility] Comment on above: Performed By: #### Claire HM7, IPB, MGO #### [facility] (DEFAULT) [address] [place] [address] Urea nitrogen [Mass/Vol] 7 mg/dL Normal 7-25 [facility] Comment on above: Performed By: #### Claire HM7, IPB, MGO #### [facility] (DEFAULT) [address] [place] [address] Urea nitrogen/Creatinine [Mass ratio] 10 mg/mg Normal [facility] Comment on above: Performed By: #### Claire HM7, IPB, MGO #### [facility] (DEFAULT) [address] [place] [address] MAGNESIUMon 05-03-2024 Magnesium [Mass/Vol] 2.0 mg/dL 1.6 - 2 .6 mg/dL [place] Magnesium [Mass/Vol] 2.0 mg/dL Normal 1.6-2.6 [facility] Comment on above: Performed By: #### Claire HM7, IPB, MGO #### [place] (DEFAULT) [address] [place] [address] No Panel Informationon 05-03 Interpretation and review of laboratory results Normal [facility] PHOSPHATE, INORGANICon 05-03 Phosphate [Mass/Vol] 2.9 mg/dL 2.2 - 4 .6 mg/dL [place] Phosphorous 2.9 mg/dL Normal 2.2-4.6 [facility] Comment on above: Performed By: #### C HM7, IPB, MGO #### [place] (DEFAULT) [address] [place] [address] CBC,PLATELETSon 05-02-2024 Erythrocyte distribution width (RBC) [Ratio] 13.5 % 10.9 - 14.3 % [facility] Hematocrit (Bld) [Volume fraction] 27.6 % Low 39.6 - 48.8 % [facility] Hemoglobin (Bld) [Mass/Vol] 8.9 g/dL Low 13.4 - 16.8 g/dL [facility] Interpretation and review of laboratory results Abnormal [place] MCH (RBC) [Entitic mass] 29.2 pg 26.1 - 33.3 pg [place] MCHC (RBC) [Mass/Vol] 32.2 g/dL 31.9 - 36.5 g/dL [place] MCV (RBC) [Entitic vol] 90.5 fL 79.0 - 94.5 fL [place] Platelet mean volume (Bld) [Entitic vol] 8.8 fL 8.7 - 12.3 fL [place] Platelets (Bld) [#/Vol] 393 10*3/uL High 146 - 337 K/uL [place] RBC (Bld) [#/Vol] 3.05 10*6/uL Low [facility] WBC (Bld) [#/Vol] 14.26 10*3/uL High 3.73 - 10.10 K/uL [facility] Hematocrit (Bld) [Volume fraction] 27.6 % Low 39.6-48.8 [facility] Comment on above: Performed By: #### S URGP #### [place] (DEFAULT) [address] [address] Hemoglobin (Bld) [Mass/Vol] 8.9 g/dL Low 13.4-16.8 [facility] Comment on above: Performed By: #### S URGP #### [facility] (DEFAULT) [address] [address] MCV (RBC) [Entitic vol] 90.5 fL Normal 79.0-94.5 [facility] Comment on above: Performed By: #### S URGP #### [place] (DEFAULT) [address] [address] Mean Cell Hgb 29.2 pg Normal 26.1-33.3 [facility] Comment on above: Performed By: #### S URGP #### [place] (DEFAULT) [address] [address] Mean Cell Hgb Conc 32.2 g/dL Normal 31.9-36.5 [facility] Comment on above: Performed By: #### S URGP #### [place] (DEFAULT) [address] [address] Platelet mean volume (Bld) [Entitic vol] 8.8 fL Normal 8.7-12.3 [facility] Comment on above: Performed By: #### S URGP #### [facility] (DEFAULT) [address] [address] Platelets (Bld) [#/Vol] 393 10*3/uL High 146-337 [facility] Comment on above: Performed By: #### S URGP #### [facility] (DEFAULT) [address] [address] RBC (Bld) [#/Vol] 3.05 10*6/uL Low 4.38-5.83 [facility] Comment on above: Performed By: #### S URGP #### [place] (DEFAULT) [address] [place] [address] RBC Distribution 13.5 % Normal 10.9-14.3 [facility] Comment on above: Performed By: #### S URGP #### [place] (DEFAULT) [address] [place] [address] WBC (Bld) [#/Vol] 14.26 10*3/uL High 3.73-10.10 [facility] Comment on above: Performed By: #### S URGP #### [place] (DEFAULT) [address] [place] [address] CHEM 7 (LYTES,BUN,CREA,GLUC) on 05-02-2024 Anion gap [Moles/Vol] 12 mmol/L 7 - 17 mmol/L [place] Chloride [Moles/Vol] 104 mmol/L 98 - 10 8 mmol/L [place] CO2 [Moles/Vol] 28 mmol/L 21 - 31 mmol/L [place] Creatinine [Mass/Vol] 0.69 mg/dL Low 0.70 - 1.30 mg/dL [place] eGFR, CKD-EPI, Male - PINF [facility] Comment on above: Reported eGFR is bas ed on the CKD-EPI 2020 equation using creatinine, age, and sex. Glucose [Mass/Vol] 101 mg/dL High 70 - 99 mg/dL [place] Interpretation and review of laboratory results Abnormal [place] Osmolality Calc [Osmolality] 291 [place] Potassium [Moles/Vol] 4.1 mmol/L 3.5 - 5.0 mmol/L [place] Sodium [Moles/Vol] 140 mmol/L 135 - 145 mmol/L [place] Urea nitrogen [Mass/Vol] 6 mg/dL Low 7 - 25 mg/dL [place] Urea nitrogen/Creatinine [Mass ratio] 9 mg/mg [facility] Anion gap [Moles/Vol] 12 mmol/L Normal 7-17 [facility] Comment on above: Performed By: #### G EN #### [facility] (DEFAULT) [address] [place] [address] Chloride [Moles/Vol] 104 mmol/L Normal 98-108 [facility] Comment on above: Performed By: #### G EN #### [facility] (DEFAULT) [address] [place] [address] CO2 [Moles/Vol] 28 mmol/L Normal 21-31 [facility] Comment on above: Performed By: #### G EN #### [facility] (DEFAULT) [address] [place] [address] Creatinine [Mass/Vol] 0.69 mg/dL Low 0.70-1.30 [facility] Comment on above: Performed By: #### G EN #### [facility] (DEFAULT) [address] [place] [address]75 eGFR, CKD-EPI, Male > Normal >=60 [facility] Comment on above: Result Comment: Repo rted eGFR is based on the CKD-EPI 2020 equation using creatinine, age, and sex. Performed By: #### G EN #### [facility] (DEFAULT) [address] [place] [address] Glucose [Mass/Vol] 101 mg/dL High 70-99 [facility] Comment on above: Performed By: #### G EN #### [facility] (DEFAULT) [address] [place] [address] Osmolality [Osmolality] 291 mosm/kg Normal 278-305 [facility] Comment on above: Performed By: #### G EN #### [facility] (DEFAULT) [address] [place] [address] Potassium [Moles/Vol] 4.1 mmol/L Normal 3.5-5.0 [facility] Comment on above: Performed By: #### G EN #### [place] (DEFAULT) [address] [place] [address] Sodium [Moles/Vol] 140 mmol/L Normal 135-145 [facility] Comment on above: Performed By: #### G EN #### [place] (DEFAULT) [address] [place] [address] Urea nitrogen [Mass/Vol] 6 mg/dL Low 7-25 [facility] Comment on above: Performed By: #### G EN #### [place] (DEFAULT) [address] [place] [address] Urea nitrogen/Creatinine [Mass ratio] 9 mg/mg Normal [facility] Comment on above: Performed By: #### G EN #### [place] (DEFAULT) [address] [place] [address] Anion gap [Moles/Vol] 12 mmol/L 7 - 17 mmol/L [place] Chloride [Moles/Vol] 103 mmol/L 98 - 10 8 mmol/L [place] CO2 [Moles/Vol] 28 mmol/L 21 - 31 mmol/L [place] Creatinine [Mass/Vol] 0.75 mg/dL 0.70 - 1.30 mg/dL [place] eGFR, CKD-EPI, Male - PINF [facility] Comment on above: Reported eGFR is bas ed on the CKD-EPI 2020 equation using creatinine, age, and sex. Glucose [Mass/Vol] 107 mg/dL High 70 - 99 mg/dL [place] Interpretation and review of laboratory results Abnormal [place] Osmolality Calc [Osmolality] 290 [place] Potassium [Moles/Vol] 4.0 mmol/L 3.5 - 5.0 mmol/L [place] Sodium [Moles/Vol] 139 mmol/L 135 - 145 mmol/L [place] Urea nitrogen [Mass/Vol] 8 mg/dL 7 - 25 mg/dL [place] Urea nitrogen/Creatinine [Mass ratio] 11 mg/mg [facility] Anion gap [Moles/Vol] 12 mmol/L Normal 7-17 [facility] Comment on above: Performed By: #### S URGP #### [facility] (DEFAULT) [address] [place] [address] Chloride [Moles/Vol] 103 mmol/L Normal 98-108 [facility] Comment on above: Performed By: #### S URGP #### [facility] (DEFAULT) [address] [place] [address] CO2 [Moles/Vol] 28 mmol/L Normal 21-31 [facility] Comment on above: Performed By: #### S URGP #### [facility] (DEFAULT) [address] [place] [address] Creatinine [Mass/Vol] 0.75 mg/dL Normal 0.70-1.30 [facility] Comment on above: Performed By: #### S URGP #### [facility] (DEFAULT) [address] [place] [address]708 eGFR, CKD-EPI, Male > Normal >=60 [facility] Comment on above: Result Comment: Repo rted eGFR is based on the CKD-EPI 2020 equation using creatinine, age, and sex. Performed By: #### S URGP #### [facility] (DEFAULT) [address] [place] [address] Glucose [Mass/Vol] 107 mg/dL High 70-99 [facility] Comment on above: Performed By: #### S URGP #### [facility] (DEFAULT) [address] [place] [address]658 Osmolality [Osmolality] 290 mosm/kg Normal 278-305 [facility] Comment on above: Performed By: #### S URGP #### [facility] (DEFAULT) [address] [place] [address] 82675 Potassium [Moles/Vol] 4.0 mmol/L Normal 3.5-5.0 [facility] Comment on above: Performed By: #### S URGP #### [place] (DEFAULT) [address] [place] [address] Sodium [Moles/Vol] 139 mmol/L Normal 135-145 [facility] Comment on above: Performed By: #### S URGP #### [place] (DEFAULT) [address] [place] [address] Urea nitrogen [Mass/Vol] 8 mg/dL Normal 7-25 [facility] Comment on above: Performed By: #### S URGP #### [place] (DEFAULT) [address] [place] [address] 88885 Urea nitrogen/Creatinine [Mass ratio] 11 mg/mg Normal [facility] Comment on above: Performed By: #### S URGP #### [place] (DEFAULT) [address] [place] [address] 64017 MAGNESIUMon 05-02-2024 Magnesium [Mass/Vol] 1.8 mg/dL 1.6 - 2 .6 mg/dL [place] Magnesium [Mass/Vol] 1.8 mg/dL Normal 1.6-2.6 [facility] Comment on above: Performed By: #### S URGP #### [place] (DEFAULT) [address] [place] [address] 46498 No Panel Informationon 05-02 Interpretation and review of laboratory results Normal [facility] PHOSPHATE, INORGANICon 05-02 Phosphate [Mass/Vol] 2.5 mg/dL 2.2 - 4 .6 mg/dL [place] Phosphorous 2.5 mg/dL Normal 2.2-4.6 [facility] Comment on above: Performed By: #### S URGP #### [place] (DEFAULT) [address] [place] [address] 76963 CBC,PLATELETSon 05-01-2024 Erythrocyte distribution width (RBC) [Ratio] 13.7 % 10.9 - 14.3 % [facility] Hematocrit (Bld) [Volume fraction] 28.3 % Low 39.6 - 48.8 % [facility] Hemoglobin (Bld) [Mass/Vol] 9.1 g/dL Low 13.4 - 16.8 g/dL [facility] Interpretation and review of laboratory results Abnormal [facility] MCH (RBC) [Entitic mass] 29.2 pg 26.1 - 33.3 pg [place] MCHC (RBC) [Mass/Vol] 32.2 g/dL 31.9 - 36.5 g/dL [place] MCV (RBC) [Entitic vol] 90.7 fL 79.0 - 94.5 fL [facility] Platelet mean volume (Bld) [Entitic vol] 8.7 fL 8.7 - 12.3 fL [place] Platelets (Bld) [#/Vol] 366 10*3/uL High 146 - 337 K/uL [place] RBC (Bld) [#/Vol] 3.12 10*6/uL Low [facility] WBC (Bld) [#/Vol] 15.88 10*3/uL High 3.73 - 10.10 K/uL [facility] Hematocrit (Bld) [Volume fraction] 28.3 % Low 39.6-48.8 [facility] Comment on above: Performed By: #### U [id number] #### [place] (DEFAULT) [address] [address] Hemoglobin (Bld) [Mass/Vol] 9.1 g/dL Low 13.4-16.8 [facility] Comment on above: Performed By: #### U [id number] #### [place] (DEFAULT) [address] [address] MCV (RBC) [Entitic vol] 90.7 fL Normal 79.0-94.5 [facility] Comment on above: Performed By: #### U [id number] #### [place] (DEFAULT) [address] [place] [address] 41577 Mean Cell Hgb 29.2 pg Normal 26.1-33.3 [facility] Comment on above: Performed By: #### U [id number] #### [place] (DEFAULT) [address] [place] [address] 90243 Mean Cell Hgb Conc 32.2 g/dL Normal 31.9-36.5 [facility] Comment on above: Performed By: #### U [id number] #### [facility] (DEFAULT) [address] [place] [address] 88149 Platelet mean volume (Bld) [Entitic vol] 8.7 fL Normal 8.7-12.3 [facility] Comment on above: Performed By: #### U [id number] #### [facility] (DEFAULT) [address] [place] [address] 97080 Platelets (Bld) [#/Vol] 366 10*3/uL High 146-337 [facility] Comment on above: Performed By: #### U [id number] #### [place] (DEFAULT) [address] [place] [address] 02619 RBC (Bld) [#/Vol] 3.12 10*6/uL Low 4.38-5.83 [facility] Comment on above: Performed By: #### U [id number] #### [place] (DEFAULT) [address] [place] [address] 75779 RBC Distribution 13.7 % Normal 10.9-14.3 [facility] Comment on above: Performed By: #### U [id number] #### [facility] (DEFAULT) [address] [place] [address] 79193 WBC (Bld) [#/Vol] 15.88 10*3/uL High 3.73-10.10 [facility] Comment on above: Performed By: #### U [id number] #### [facility] (DEFAULT) [address] [place] [address] 31381 CHEM 7 (LYTES,BUN,CREA,GLUC) on 05-01-2024 Anion gap [Moles/Vol] 12 mmol/L 7 - 17 mmol/L [place] Chloride [Moles/Vol] 102 mmol/L 98 - 10 8 mmol/L [place] CO2 [Moles/Vol] 28 mmol/L 21 - 31 mmol/L [place] Creatinine [Mass/Vol] 0.78 mg/dL 0.70 - 1.30 mg/dL [place] eGFR, CKD-EPI, Male - PINF [facility] Comment on above: Reported eGFR is bas ed on the CKD-EPI 2020 equation using creatinine, age, and sex. Glucose [Mass/Vol] 109 mg/dL High 70 - 99 mg/dL [place] Interpretation and review of laboratory results Abnormal [place] Osmolality Calc [Osmolality] 288 [place] Potassium [Moles/Vol] 4.0 mmol/L 3.5 - 5.0 mmol/L [facility] Sodium [Moles/Vol] 138 mmol/L 135 - 145 mmol/L [facility] Urea nitrogen [Mass/Vol] 8 mg/dL 7 - 25 mg/dL [facility] Urea nitrogen/Creatinine [Mass ratio] 10 mg/mg [facility] Anion gap [Moles/Vol] 12 mmol/L Normal 7-17 [facility] Comment on above: Performed By: #### ELEN GAMBINO MGAlan #### [place] (DEFAULT) [address] [place] [address]31 Chloride [Moles/Vol] 102 mmol/L Normal 98-108 [facility] Comment on above: Performed By: #### ELEN GAMBINO MGAlan #### [place] (DEFAULT) [address] [place] [address] CO2 [Moles/Vol] 28 mmol/L Normal 21-31 [facility] Comment on above: Performed By: #### ELEN GAMBINO MGAlan #### [place] (DEFAULT) [address] [place] [address] 55936 Creatinine [Mass/Vol] 0.78 mg/dL Normal 0.70-1.30 [facility] Comment on above: Performed By: #### Claire STAPLES IPB, MGO #### [facility] (DEFAULT) [address] [place] [address] 96685 eGFR, CKD-EPI, Male > Normal >=60 [facility] Comment on above: Result Comment: Repo rted eGFR is based on the CKD-EPI 2020 equation using creatinine, age, and sex. Performed By: #### Claire STAPLES, IPB, MGO #### [facility] (DEFAULT) [address] [place] [address]708 Glucose [Mass/Vol] 109 mg/dL High 70-99 [facility] Comment on above: Performed By: #### Claire STAPLES, IPB, MGO #### [facility] (DEFAULT) [address] [place] [address] 89132 Osmolality [Osmolality] 288 mosm/kg Normal 278-305 [facility] Comment on above: Performed By: #### Claire STAPLES, CASSIDYB, MGO #### [facility] (DEFAULT) [address] [place] [address] 57787 Potassium [Moles/Vol] 4.0 mmol/L Normal 3.5-5.0 [facility] Comment on above: Performed By: #### Claire HMRosemary, IPB, MGO #### [facility] (DEFAULT) [address] [place] [address] 28347 Sodium [Moles/Vol] 138 mmol/L Normal 135-145 [facility] Comment on above: Performed By: #### Claire STAPLES, IPB, MGO #### [facility] (DEFAULT) [address] [place] [address] 09769 Urea nitrogen [Mass/Vol] 8 mg/dL Normal 7-25 [facility] Comment on above: Performed By: #### ELEN GAMBINO MGO #### [facility] (DEFAULT) [address] [place] [address] Urea nitrogen/Creatinine [Mass ratio] 10 mg/mg Normal [facility] Comment on above: Performed By: #### ELEN GAMBINO MGO #### [place] (DEFAULT) [address] [place] [address] Anion gap [Moles/Vol] 11 mmol/L 7 - 17 mmol/L [place] Chloride [Moles/Vol] 102 mmol/L 98 - 10 8 [facility] CO2 [Moles/Vol] 28 mmol/L 21 - 31 mmol/L [place] Creatinine [Mass/Vol] 0.65 mg/dL Low 0.70 - 1.30 mg/dL [place] eGFR, CKD-EPI, Male - PINF [facility] Comment on above: Reported eGFR is bas ed on the CKD-EPI 2020 equation using creatinine, age, and sex. Glucose [Mass/Vol] 129 mg/dL High 70 - 99 mg/dL [place] Interpretation and review of laboratory results Abnormal [place] Osmolality Calc [Osmolality] 286 [place] Potassium [Moles/Vol] 4.0 mmol/L 3.5 - 5.0 mmol/L [place] Sodium [Moles/Vol] 137 mmol/L 135 - 145 mmol/L [facility] Urea nitrogen [Mass/Vol] 5 mg/dL Low 7 - 25 mg/dL [facility] Urea nitrogen/Creatinine [Mass ratio] 8 mg/mg [facility] Anion gap [Moles/Vol] 11 mmol/L Normal 7-17 [facility] Comment on above: Performed By: #### ELEN GAMBINO MGAlan #### [facility] (DEFAULT) [address] [place] [address] Chloride [Moles/Vol] 102 mmol/L Normal 98-108 [facility] Comment on above: Performed By: #### C HM7, IPB, MGO #### [facility] (DEFAULT) [address] [place] [address] 01376 CO2 [Moles/Vol] 28 mmol/L Normal 21-31 [facility] Comment on above: Performed By: #### Claire HM7, IPB, MGO #### [facility] (DEFAULT) [address] [place] [address] 77396 Creatinine [Mass/Vol] 0.65 mg/dL Low 0.70-1.30 [facility] Comment on above: Performed By: #### Claire HMRosemary, IPB, MGO #### [facility] (DEFAULT) [address] [place] [address] 56886 eGFR, CKD-EPI, Male > Normal >=60 [facility] Comment on above: Result Comment: Repo rted eGFR is based on the CKD-EPI 2020 equation using creatinine, age, and sex. Performed By: #### C JHOAN, IPB, MGO #### [facility] (DEFAULT) [address] [place] [address] 88671 Glucose [Mass/Vol] 129 mg/dL High 70-99 [facility] Comment on above: Performed By: #### Claire HMRosemary, IPB, MGO #### [facility] (DEFAULT) [address] [place] [address] 28216 Osmolality [Osmolality] 286 mosm/kg Normal 278-305 [facility] Comment on above: Performed By: #### Claire HM7, IPB, MGO #### [facility] (DEFAULT) [address] [place] [address] 91772 Potassium [Moles/Vol] 4.0 mmol/L Normal 3.5-5.0 [facility] Comment on above: Performed By: #### Claire HM7, IPB, MGO #### [facility] (DEFAULT) [address] [place] [address] 32000 Sodium [Moles/Vol] 137 mmol/L Normal 135-145 [facility] Comment on above: Performed By: #### C HM7, IPB, MGO #### [place] (DEFAULT) [address] [place] [address] Urea nitrogen [Mass/Vol] 5 mg/dL Low 7-25 [facility] Comment on above: Performed By: #### C HM7, IPB, MGO #### [place] (DEFAULT) [address] [place] [address] Urea nitrogen/Creatinine [Mass ratio] 8 mg/mg Normal [facility] Comment on above: Performed By: #### C HM7, IPB, MGO #### [place] (DEFAULT) [address] [place] [address] Anion gap [Moles/Vol] 10 mmol/L 7 - 17 mmol/L [place] Chloride [Moles/Vol] 102 mmol/L 98 - 10 8 mmol/L [place] CO2 [Moles/Vol] 30 mmol/L 21 - 31 mmol/L [place] Creatinine [Mass/Vol] 0.64 mg/dL Low 0.70 - 1.30 mg/dL [place] eGFR, CKD-EPI, Male - PINF [facility] Comment on above: Reported eGFR is bas ed on the CKD-EPI 2020 equation using creatinine, age, and sex. Glucose [Mass/Vol] 101 mg/dL High 70 - 99 mg/dL [place] Interpretation and review of laboratory results Abnormal [place] Osmolality Calc [Osmolality] 287 [place] Potassium [Moles/Vol] 4.4 mmol/L 3.5 - 5.0 mmol/L [place] Sodium [Moles/Vol] 138 mmol/L 135 - 145 mmol/L [place] Urea nitrogen [Mass/Vol] 5 mg/dL Low 7 - 25 mg/dL [facility] Urea nitrogen/Creatinine [Mass ratio] 8 mg/mg [facility] Anion gap [Moles/Vol] 10 mmol/L Normal 7-17 [facility] Comment on above: Performed By: #### C HM7 ####[place] (DEFAULT)[address] [place] [address] Chloride [Moles/Vol] 102 mmol/L Normal 98-108 [facility] Comment on above: Performed By: #### C HM7 ####[place] (DEFAULT)[address] [facility] [place] [address] CO2 [Moles/Vol] 30 mmol/L Normal 21-31 [facility] Comment on above: Performed By: #### C HM7 ####[place] (DEFAULT)[address] [facility] [place] [address] Creatinine [Mass/Vol] 0.64 mg/dL Low 0.70-1.30 [facility] Comment on above: Performed By: #### C HM7 ####[place] (DEFAULT)[address] [facility] [place] [address] eGFR, CKD-EPI, Male > Normal >=60 [facility] Comment on above: Result Comment: Repo rted eGFR is based on the CKD-EPI 2020 equation using creatinine, age, and sex. Performed By: #### C HM7 ####[place] (DEFAULT)[address] [facility] [place] [address] Glucose [Mass/Vol] 101 mg/dL High 70-99 [facility] Comment on above: Performed By: #### C HM7 ####[facility] (DEFAULT)[address] [facility] [place] [address] Osmolality [Osmolality] 287 mosm/kg Normal 278-305 [facility] Comment on above: Performed By: #### C HM7 ####[facility] (DEFAULT)[address] [facility] [place] [address] Potassium [Moles/Vol] 4.4 mmol/L Normal 3.5-5.0 [facility] Comment on above: Performed By: #### C HM7 ####[place] (DEFAULT)[address] [place] [address]95 Sodium [Moles/Vol] 138 mmol/L Normal 135-145 [facility] Comment on above: Performed By: #### C HM7 ####[place] (DEFAULT)[address] [place] [address] Urea nitrogen [Mass/Vol] 5 mg/dL Low 7-25 [facility] Comment on above: Performed By: #### C HM7 ####[place] (DEFAULT)[address] [place] [address] 32617 Urea nitrogen/Creatinine [Mass ratio] 8 mg/mg Normal [facility] Comment on above: Performed By: #### C HM7 ####[place] (DEFAULT)[address] [place] [address] Anion gap [Moles/Vol] 12 mmol/L Normal 7-17 [facility] Comment on above: Performed By: #### S URGP #### [place] (DEFAULT) [address] [place] [address] 07675 Chloride [Moles/Vol] 103 mmol/L Normal 98-108 [facility] Comment on above: Performed By: #### S URGP #### [place] (DEFAULT) [address] [place] [address] 20776 CO2 [Moles/Vol] 27 mmol/L Normal 21-31 [facility] Comment on above: Performed By: #### S URGP #### [place] (DEFAULT) [address] [place] [address] 82279 Creatinine [Mass/Vol] 0.61 mg/dL Low 0.70-1.30 [facility] Comment on above: Performed By: #### S URGP #### [place] (DEFAULT) [address] [place] [address] 03041 eGFR, CKD-EPI, Male > Normal >=60 [facility] Comment on above: Result Comment: Repo rted eGFR is based on the CKD-EPI 2020 equation using creatinine, age, and sex. Performed By: #### S URGP #### [facility] (DEFAULT) [address] [place] [address] 92284 Glucose [Mass/Vol] 121 mg/dL High 70-99 [facility] Comment on above: Performed By: #### S URGP #### [facility] (DEFAULT) [address] [place] [address] 64090 Osmolality [Osmolality] 289 mosm/kg Normal 278-305 [facility] Comment on above: Performed By: #### S URGP #### [place] (DEFAULT) [address] [place] [address] 29507 Potassium [Moles/Vol] 4.3 mmol/L Normal 3.5-5.0 [facility] Comment on above: Performed By: #### S URGP #### [facility] (DEFAULT) [address] [place] [address] 11518 Sodium [Moles/Vol] 138 mmol/L Normal 135-145 [facility] Comment on above: Performed By: #### S URGP #### [place] (DEFAULT) [address] [place] [address] 54818 Urea nitrogen [Mass/Vol] 6 mg/dL Low 7-25 [facility] Comment on above: Performed By: #### S URGP #### [facility] (DEFAULT) [address] [place] [address] 32318 Urea nitrogen/Creatinine [Mass ratio] 10 mg/mg Normal [facility] Comment on above: Performed By: #### S URGP #### [place] (DEFAULT) [address] [place] [address] 80297 CHEM 7 (LYTES,BUN,CREA,GLUC) Ordered By: Jessica Tran on 05-01-2024 Anion gap [Moles/Vol] 12 mmol/L 7 - 17 mmol/L [facility] Chloride [Moles/Vol] 103 mmol/L 98 - 10 8 mmol/L [place] CO2 [Moles/Vol] 27 mmol/L 21 - 31 mmol/L [place] Creatinine [Mass/Vol] 0.61 mg/dL Low 0.70 - 1.30 mg/dL [place] eGFR, CKD-EPI, Male - PINF [facility] Comment on above: Reported eGFR is bas ed on the CKD-EPI 2020 equation using creatinine, age, and sex. Glucose [Mass/Vol] 121 mg/dL High 70 - 99 mg/dL [facility] Interpretation and review of laboratory results Abnormal [place] Osmolality Calc [Osmolality] 289 [place] Potassium [Moles/Vol] 4.3 mmol/L 3.5 - 5.0 mmol/L [place] Sodium [Moles/Vol] 138 mmol/L 135 - 145 mmol/L [facility] Urea nitrogen [Mass/Vol] 6 mg/dL Low 7 - 25 mg/dL [facility] Urea nitrogen/Creatinine [Mass ratio] 10 mg/mg [facility] CONTINUOUS CARDIAC MONITORIN G STRIPOrdered By: Unassigned Pacs on 05-01-2024 [facility] Work Phone: DRAINAGE BY CATHETER PERITON EAL/RETROPERITONEAL PERCUTANEOUS W/ IMAGINon 05-01-2024 DRAINAGE BY CATHETER PERITONEAL/RETROPERITO [place] PERCUTANEOUS W/ IMAGIN EXAM: IR DRAINAGE BY CATHETER PERITONEAL/RETROPERITONEAL PERCUTANEOUS W/ IMAGIN, 04/30/2024 17:02 PM CLINICAL INDICATIONS: L02.91:Abscess. Pelvic abscess at the rectal stump communicating with right subhepatic abscess. MEDICATIONS: 4:25 PM 04/30/24 fentaNYL (SUBLIMAZE) injection 0-300 mcg Ordered and Given 50 mcg Given Rate: 0 Route: Intravenous; 4:25 PM 04/30/24 midazolam (VERSED) injection 0-10 mg Ordered and Given 1 mg Given Rate: 0 Route: Intravenous; 4:36 PM 04/30/24 fentaNYL (SUBLIMAZE) injection 0-300 mcg Given 25 mcg Given Rate: 0 Route: Intravenous; 4:36 PM 04/30/24 midazolam (VERSED) injection 0-10 mg Given 0.5 mg Given Rate: 0 Route: Intravenous; PROCEDURE/TECHNIQUE: DLP: 156 mGy x cm kVp: OPERATORS: Catherine Delatorre II, MD (Attending); Nghia Becerra MD (Resident) CONSENT: Following discussion of the risks, benefits and alternatives of the procedure, written informed consent was obtained. SEDATION: I performed Moderate Sedation which included the presence of a nurse that assisted in monitoring the patient's level of consciousness and physiologic status. After administration of sedative medication(s), I spent 51 minutes of continuous [id number] time with the patient. COMPARISON: CT abdomen/pelvis with contrast 04/29/2024 TIME OUT: Prior to the procedure a time out was performed in the presence of the patient and all personnel involved in this case. The patient identity, procedure type, procedure side/site, and allergies were verified. TECHNIQUE: Position: The patient was transferred to the IR laboratory and was positioned prone on the procedural table. The right flank was prepped and draped using maximum sterile barrier technique. This consisted of cap, mask, hand hygiene, sterile gown and gloves, 2% Chlorhexidine solution for cutaneous antisepsis and occlusive sterile draping of the field. Preparation: Time out was performed. The patient was then prepped and draped in sterile fashion. Local anesthesia was provided using 2% Lidocaine. Procedure/Findings: An [id number] Cook Yueh trocar needle was advanced using CT fluoroscopic guidance into the collection. Approximately 10 mL of green, purulent fluid was aspirated from the lesion and sent to the laboratory for culture. A guidewire was then passed through the needle, and a series of dilators were exchanged over the wire. A 10 Sudanese [employer] drain was then placed over the wire, and additional images were obtained to confirm positioning of the catheter within the collection. The catheter was sutured to the skin with a single stitch, and connected to a straight drain. A total of 200 ml was drained by the time the patient left the department. Post-Procedure: Post-procedure images demonstrate the pigtail of the catheter within the collection. The patient tolerated the procedure well, with no immediate complications. IMPRESSION: Successful placement of 10-Sudanese drain into the deep pelvis. Catherine Delatorer II, MD was in the room and participated during all iyer portions of this procedure. I personally viewed and interpreted these images and I have reviewed and approved this report. Table formatting from the original result was not included. Meds Meds Time Date Event Details User 4:05 PM 04/30/24 Timeout: Sign-in Signed by Noel Pedraza RN at 04/30/2024 4:18 PM NK 4:25 PM 04/30/24 fentaNYL (SUBLIMAZE) injection 0-300 mcg Ordered and Given 50 mcg Given Rate: 0 Route: Intravenous AH 4:25 PM 04/30/24 midazolam (VERSED) injection 0-10 mg Ordered and Given 1 mg Given Rate: 0 Route: Intravenous AH 4:36 PM 04/30/24 fentaNYL (SUBLIMAZE) injection 0-300 mcg Given 25 mcg Given Rate: 0 Route: Intravenous AH 4:36 PM 04/30/24 midazolam (VERSED) injection 0-10 mg Given 0.5 mg Given Rate: 0 Route: Intravenous AH 4:38 PM 04/30/24 Timeout: TimeOut Signed by Miguel A Heaton RN at 04/30/2024 4:38 PM AH 4:56 PM 04/30/24 Timeout: Sign-out Signed by Miguel A Heaton RN at 04/30/2024 4:56 PM Physician Physician Time Date Event Details User 4:00 PM 04/30/24 Catherine Delatorre II, MD - Arrived Role: Primary Service: Interventional Radiology (Panel 1) 4:05 PM 04/30/24 Timeout: Sign-in Signed by Noel Pedraza RN at 04/30/2024 4:18 PM NK 4:38 PM 04/30/24 Timeout: TimeOut Signed by Miguel A Heaton RN at 04/30/2024 4:38 PM AH 4:56 PM 04/30/24 Timeout: Sign-out Signed by Miguel A Heaton RN at 04/30/2024 4:56 PM AH [facility] IMPRESSION: Successful placement of 10-Sudanese drain into the deep pelvis. Catherine Delatorre II, MD was in the room and participated during all iyer portions of this procedure. I personally viewed and interpreted these images and I have reviewed and approved this report. OLOGY EXAM: IR DRAINAGE BY CATHETER PERITONEAL/RETROPERITONEAL PERCUTANEOUS W/ IMAGIN, 04/30/2024 17:02 PM CLINICAL INDICATIONS: L02.91:Abscess. Pelvic abscess at the rectal stump communicating with right subhepatic abscess. MEDICATIONS: 4:25 PM 04/30/24 fentaNYL (SUBLIMAZE) injection 0-300 mcg Ordered and Given 50 mcg Given Rate: 0 Route: Intravenous; 4:25 PM 04/30/24 midazolam (VERSED) injection 0-10 mg Ordered and Given 1 mg Given Rate: 0 Route: Intravenous; 4:36 PM 04/30/24 fentaNYL (SUBLIMAZE) injection 0-300 mcg Given 25 mcg Given Rate: 0 Route: Intravenous; 4:36 PM 04/30/24 midazolam (VERSED) injection 0-10 mg Given 0.5 mg Given Rate: 0 Route: Intravenous; PROCEDURE/TECHNIQUE: DLP: 156 mGy x cm kVp: OPERATORS: Catherine Delatorre II, MD (Attending); Nghia Becerra MD (Resident) CONSENT: Following discussion of the risks, benefits and alternatives of the procedure, written informed consent was obtained. SEDATION: I performed Moderate Sedation which included the presence of a nurse that assisted in monitoring the patient's level of consciousness and physiologic status. After administration of sedative medication(s), I spent 51 minutes of continuous [id number] time with the patient. COMPARISON: CT abdomen/pelvis with contrast 04/29/2024 TIME OUT: Prior to the procedure a time out was performed in the presence of the patient and all personnel involved in this case. The patient identity, procedure type, procedure side/site, and allergies were verified. TECHNIQUE: Position: The patient was transferred to the IR laboratory and was positioned prone on the procedural table. The right flank was prepped and draped using maximum sterile barrier technique. This consisted of cap, mask, hand hygiene, sterile gown and gloves, 2% Chlorhexidine solution for cutaneous antisepsis and occlusive sterile draping of the field. Preparation: Time out was performed. The patient was then prepped and draped in sterile fashion. Local anesthesia was provided using 2% Lidocaine. Procedure/Findings: An [id number] Cook Yueh trocar needle was advanced using CT fluoroscopic guidance into the collection. Approximately 10 mL of green, purulent fluid was aspirated from the lesion and sent to the laboratory for culture. A guidewire was then passed through the needle, and a series of dilators were exchanged over the wire. A 10 Sudanese [employer] drain was then placed over the wire, and additional images were obtained to confirm positioning of the catheter within the collection. The catheter was sutured to the skin with a single stitch, and connected to a straight drain. A total of 200 ml was drained by the time the patient left the department. Post-Procedure: Post-procedure images demonstrate the pigtail of the catheter within the collection. The patient tolerated the procedure well, with no immediate complications. RADIOLOGY Catherine Delatorre II, MD - 05/01/2024 EXAM: IR DRAINAGE BY CATHETER PERITONEAL/RETROPERITONEAL PERCUTANEOUS W/ IMAGIN, 04/30/2024 17:02 PM CLINICAL INDICATIONS: L02.91:Abscess. Pelvic abscess at the rectal stump communicating with right subhepatic abscess. MEDICATIONS: 4:25 PM 04/30/24 fentaNYL (SUBLIMAZE) injection 0-300 mcg Ordered and Given 50 mcg Given Rate: 0 Route: Intravenous; 4:25 PM 04/30/24 midazolam (VERSED) injection 0-10 mg Ordered and Given 1 mg Given Rate: 0 Route: Intravenous; 4:36 PM 04/30/24 fentaNYL (SUBLIMAZE) injection 0-300 mcg Given 25 mcg Given Rate: 0 Route: Intravenous; 4:36 PM 04/30/24 midazolam (VERSED) injection 0-10 mg Given 0.5 mg Given Rate: 0 Route: Intravenous; PROCEDURE/TECHNIQUE: DLP: 156 mGy x cm kVp: OPERATORS: Catherine Delatorre II, MD (Attending); Nghia Becerra MD (Resident) CONSENT: Following discussion of the risks, benefits and alternatives of the procedure, written informed consent was obtained. SEDATION: I performed Moderate Sedation which included the presence of a nurse that assisted in monitoring the patient's level of consciousness and physiologic status. After administration of sedative medication(s), I spent 51 minutes of continuous yeij-uk-wydr time with the patient. COMPARISON: CT abdomen/pelvis with contrast 04/29/2024 TIME OUT: Prior to the procedure a time out was performed in the presence of the patient and all personnel involved in this case. The patient identity, procedure type, procedure side/site, and allergies were verified. TECHNIQUE: Position: The patient was transferred to the IR laboratory and was positioned prone on the procedural table. The right flank was prepped and draped using maximum sterile barrier technique. This consisted of cap, mask, hand hygiene, sterile gown and gloves, 2% Chlorhexidine solution for cutaneous antisepsis and occlusive sterile draping of the field. Preparation: Time out was performed. The patient was then prepped and draped in sterile fashion. Local anesthesia was provided using 2% Lidocaine. Procedure/Findings: An [id number] Cook Thanx trocar needle was advanced using CT fluoroscopic guidance into the collection. Approximately 10 mL of green, purulent fluid was aspirated from the lesion and sent to the laboratory for culture. A guidewire was then passed through the needle, and a series of dilators were exchanged over the wire. A 10 Sudanese [employer] drain was then placed over the wire, and additional images were obtained to confirm positioning of the catheter within the collection. The catheter was sutured to the skin with a single stitch, and connected to a straight drain. A total of 200 ml was drained by the time the patient left the department. Post-Procedure: Post-procedure images demonstrate the pigtail of the catheter within the collection. The patient tolerated the procedure well, with no immediate complications. IMPRESSION IMPRESSION: Successful placement of 10-Sudanese drain into the deep pelvis. Catherine Delatorre II, MD was in the room and participated during all iyer portions of this procedure. I personally viewed and interpreted these images and I have reviewed and approved this report. [facility] MAGNESIUMon 05-01-2024 Magnesium [Mass/Vol] 1.8 mg/dL 1.6 - 2 .6 mg/dL [place] Magnesium [Mass/Vol] 1.8 mg/dL Normal 1.6-2.6 [facility] Comment on above: Performed By: #### S URGP #### [place] (DEFAULT) [address] [place] [address] No Panel Informationon 05-01 Interpretation and review of laboratory results Normal [facility] PHOSPHATE, INORGANICon 05-01 Phosphate [Mass/Vol] 2.4 mg/dL 2.2 - 4 .6 mg/dL [place] Phosphorous 2.4 mg/dL Normal 2.2-4.6 [facility] Comment on above: Performed By: #### S URGP #### [place] (DEFAULT) [address] [place] [address] BACTERIAL CULTURE AND DIRECT SMEAR, LESION, TISSUE, DEVICEon 04-30-2024 Bacteria identified Cx Nom (Unsp spec) Normal [facility] Comment on above: Result Comment: Grow Moderate Growth Escherichia coli Susceptibilities not routinely performed. 2926 Moderate Growth Streptococcus anginosus group Susceptibilities not routinely performed. Refer to specimen [id number] on 04/29/24 for requested susceptibilities. Performed By: #### S URGP #### [place] (DEFAULT) [address] [place] [address] Microscopic observation Gram stain Nom (Unsp spec) Normal [facility] Comment on above: Result Comment: Neut rophils, Heavy Mononuclear cells present Red Blood Cells Present Gram Negative Bacilli Gram Positive Cocci Performed By: #### S URGP #### [place] (DEFAULT) [address] [address] CBC,PLATELETSon 04-30-2024 Erythrocyte distribution width (RBC) [Ratio] 13.9 % 10.9 - 14.3 % [place] Hematocrit (Bld) [Volume fraction] 27.3 % Low 39.6 - 48.8 % [place] Hemoglobin (Bld) [Mass/Vol] 9.0 g/dL Low 13.4 - 16.8 g/dL [place] Interpretation and review of laboratory results Abnormal [place] MCH (RBC) [Entitic mass] 30.0 pg 26.1 - 33.3 pg [place] MCHC (RBC) [Mass/Vol] 33.0 g/dL 31.9 - 36.5 g/dL [place] MCV (RBC) [Entitic vol] 91.0 fL 79.0 - 94.5 fL [place] Platelet mean volume (Bld) [Entitic vol] 9.3 fL 8.7 - 12.3 fL [place] Platelets (Bld) [#/Vol] 328 10*3/uL 146 - 337 K/uL [place] RBC (Bld) [#/Vol] 3.00 10*6/uL Low [facility] WBC (Bld) [#/Vol] 12.78 10*3/uL High 3.73 - 10.10 K/uL [facility] Hematocrit (Bld) [Volume fraction] 27.3 % Low 39.6-48.8 [facility] Comment on above: Performed By: #### T YPEC #### [place] (DEFAULT) [address] [address] Hemoglobin (Bld) [Mass/Vol] 9.0 g/dL Low 13.4-16.8 [facility] Comment on above: Performed By: #### T YPEC #### [place] (DEFAULT) [address] [address] MCV (RBC) [Entitic vol] 91.0 fL Normal 79.0-94.5 [facility] Comment on above: Performed By: #### T YPEC #### [place] (DEFAULT) [address] [address] Mean Cell Hgb 30.0 pg Normal 26.1-33.3 [facility] Comment on above: Performed By: #### T YPEC #### [place] (DEFAULT) [address] [address] Mean Cell Hgb Conc 33.0 g/dL Normal 31.9-36.5 [facility] Comment on above: Performed By: #### T YPEC #### [place] (DEFAULT) [address] [place] [address] Platelet mean volume (Bld) [Entitic vol] 9.3 fL Normal 8.7-12.3 [facility] Comment on above: Performed By: #### T YPEC #### [place] (DEFAULT) [address] [place] [address] Platelets (Bld) [#/Vol] 328 10*3/uL Normal 146-337 [facility] Comment on above: Performed By: #### T YPEC #### [place] (DEFAULT) [address] [place] [address] RBC (Bld) [#/Vol] 3.00 10*6/uL Low 4.38-5.83 [facility] Comment on above: Performed By: #### T YPEC #### [place] (DEFAULT) [address] [place] [address] RBC Distribution 13.9 % Normal 10.9-14.3 [facility] Comment on above: Performed By: #### T YPEC #### [place] (DEFAULT) [address] [place] [address] WBC (Bld) [#/Vol] 12.78 10*3/uL High 3.73-10.10 [facility] Comment on above: Performed By: #### T YPEC #### [place] (DEFAULT) [address] [place] [address] CHEM 7 (LYTES,BUN,CREA,GLUC) on 04-30-2024 Anion gap [Moles/Vol] 13 mmol/L 7 - 17 mmol/L [place] Chloride [Moles/Vol] 101 mmol/L 98 - 10 8 mmol/L [place] CO2 [Moles/Vol] 29 mmol/L 21 - 31 mmol/L [place] Creatinine [Mass/Vol] 0.56 mg/dL Low 0.70 - 1.30 mg/dL [place] eGFR, CKD-EPI, Male - PINF [facility] Comment on above: Reported eGFR is bas ed on the CKD-EPI 2020 equation using creatinine, age, and sex. Glucose [Mass/Vol] 97 mg/dL 70 - 99 mg/dL [place] Interpretation and review of laboratory results Abnormal [place] Osmolality Calc [Osmolality] 289 [place] Potassium [Moles/Vol] 3.2 mmol/L Low 3.5 - 5.0 mmol/L [place] Sodium [Moles/Vol] 140 mmol/L 135 - 145 mmol/L [place] Urea nitrogen [Mass/Vol] 6 mg/dL Low 7 - 25 mg/dL [place] Urea nitrogen/Creatinine [Mass ratio] 11 mg/mg [facility] Anion gap [Moles/Vol] 13 mmol/L Normal 7-17 [facility] Comment on above: Performed By: #### S URGP #### [place] (DEFAULT) [address] [address] Chloride [Moles/Vol] 101 mmol/L Normal 98-108 [facility] Comment on above: Performed By: #### S URGP #### [place] (DEFAULT) [address] [place] [address] CO2 [Moles/Vol] 29 mmol/L Normal 21-31 [facility] Comment on above: Performed By: #### S URGP #### [place] (DEFAULT) [address] [place] [address] Creatinine [Mass/Vol] 0.56 mg/dL Low 0.70-1.30 [facility] Comment on above: Performed By: #### S URGP #### [place] (DEFAULT) [address] [address] eGFR, CKD-EPI, Male > Normal >=60 [facility] Comment on above: Result Comment: Repo rted eGFR is based on the CKD-EPI 2020 equation using creatinine, age, and sex. Performed By: #### S URGP #### [facility] (DEFAULT) [address] [place] [address] Glucose [Mass/Vol] 97 mg/dL Normal 70-99 [facility] Comment on above: Performed By: #### S URGP #### [facility] (DEFAULT) [address] [place] [address] Osmolality [Osmolality] 289 mosm/kg Normal 278-305 [facility] Comment on above: Performed By: #### S URGP #### [facility] (DEFAULT) [address] [place] [address] Potassium [Moles/Vol] 3.2 mmol/L Low 3.5-5.0 [facility] Comment on above: Performed By: #### S URGP #### [place] (DEFAULT) [address] [place] [address] Sodium [Moles/Vol] 140 mmol/L Normal 135-145 [facility] Comment on above: Performed By: #### S URGP #### [place] (DEFAULT) [address] [place] [address] Urea nitrogen [Mass/Vol] 6 mg/dL Low 7-25 [facility] Comment on above: Performed By: #### S URGP #### [place] (DEFAULT) [address] [place] [address] Urea nitrogen/Creatinine [Mass ratio] 11 mg/mg Normal [facility] Comment on above: Performed By: #### S URGP #### [place] (DEFAULT) [address] [place] [address] Anion gap [Moles/Vol] 8 mmol/L 7 - 17 mmol/L [place] Chloride [Moles/Vol] 101 mmol/L 98 - 10 8 mmol/L [place] CO2 [Moles/Vol] 32 mmol/L High 21 - 31 mmol/L [place] Creatinine [Mass/Vol] 0.57 mg/dL Low 0.70 - 1.30 mg/dL [place] eGFR, CKD-EPI, Male - PINF [facility] Comment on above: Reported eGFR is bas ed on the CKD-EPI 2020 equation using creatinine, age, and sex. Glucose [Mass/Vol] 102 mg/dL High 70 - 99 mg/dL [place] Interpretation and review of laboratory results Abnormal [place] Osmolality Calc [Osmolality] 285 [place] Potassium [Moles/Vol] 3.3 mmol/L Low 3.5 - 5.0 mmol/L [place] Sodium [Moles/Vol] 138 mmol/L 135 - 145 mmol/L [place] Urea nitrogen [Mass/Vol] 6 mg/dL Low 7 - 25 mg/dL [place] Urea nitrogen/Creatinine [Mass ratio] 11 mg/mg [facility] Anion gap [Moles/Vol] 8 mmol/L Normal 7-17 [facility] Comment on above: Performed By: #### C HM7, IPB, MGO #### [place] (DEFAULT) [address] [place] [address] Chloride [Moles/Vol] 101 mmol/L Normal 98-108 [facility] Comment on above: Performed By: #### C HM7, IPB, MGO #### [place] (DEFAULT) [address] [place] [address] CO2 [Moles/Vol] 32 mmol/L High 21-31 [facility] Comment on above: Performed By: #### C HM7, IPB, MGO #### [place] (DEFAULT) [address] [place] [address] Creatinine [Mass/Vol] 0.57 mg/dL Low 0.70-1.30 [facility] Comment on above: Performed By: #### C HM7, IPB, MGO #### [place] (DEFAULT) [address] [place] [address] eGFR, CKD-EPI, Male > Normal >=60 [facility] Comment on above: Result Comment: Repo rted eGFR is based on the CKD-EPI 2020 equation using creatinine, age, and sex. Performed By: #### C HM7, IPB, MGO #### [facility] (DEFAULT) [address] [place] [address] Glucose [Mass/Vol] 102 mg/dL High 70-99 [facility] Comment on above: Performed By: #### C HM7, IPB, MGO #### [facility] (DEFAULT) [address] [place] [address] Osmolality [Osmolality] 285 mosm/kg Normal 278-305 [facility] Comment on above: Performed By: #### C HM7, IPB, MGO #### [facility] (DEFAULT) [address] [place] [address] Potassium [Moles/Vol] 3.3 mmol/L Low 3.5-5.0 [facility] Comment on above: Performed By: #### C HM7, IPB, MGO #### [facility] (DEFAULT) [address] [place] [address] Sodium [Moles/Vol] 138 mmol/L Normal 135-145 [facility] Comment on above: Performed By: #### C HM7, IPB, MGO #### [facility] (DEFAULT) [address] [place] [address] Urea nitrogen [Mass/Vol] 6 mg/dL Low 7-25 [facility] Comment on above: Performed By: #### C HM7, IPB, MGO #### [facility] (DEFAULT) [address] [place] [address] Urea nitrogen/Creatinine [Mass ratio] 11 mg/mg Normal [facility] Comment on above: Performed By: #### C HM7, IPB, MGO #### [facility] (DEFAULT) [address] [place] [address] Anion gap [Moles/Vol] 9 mmol/L 7 - 17 mmol/L [place] Chloride [Moles/Vol] 101 mmol/L 98 - 10 8 mmol/L [place] CO2 [Moles/Vol] 31 mmol/L 21 - 31 mmol/L [place] Creatinine [Mass/Vol] 0.65 mg/dL Low 0.70 - 1.30 mg/dL [place] eGFR, CKD-EPI, Male - PINF [facility] Comment on above: Reported eGFR is bas ed on the CKD-EPI 2020 equation using creatinine, age, and sex. Glucose [Mass/Vol] 108 mg/dL High 70 - 99 mg/dL [place] Interpretation and review of laboratory results Abnormal [place] Osmolality Calc [Osmolality] 287 [place] Potassium [Moles/Vol] 3.4 mmol/L Low 3.5 - 5.0 mmol/L [place] Sodium [Moles/Vol] 138 mmol/L 135 - 145 mmol/L [place] Urea nitrogen [Mass/Vol] 8 mg/dL 7 - 25 mg/dL [place] Urea nitrogen/Creatinine [Mass ratio] 12 mg/mg [place] Anion gap [Moles/Vol] 9 mmol/L Normal 7-17 [facility] Comment on above: Performed By: #### I SWATI MARTINEZ CHM7 ####[place] (DEFAULT)[address] [place] [address] Chloride [Moles/Vol] 101 mmol/L Normal 98-108 [facility] Comment on above: Performed By: #### I SWATI MARTINEZ CHM7 ####[place] (DEFAULT)[address] [place] [address] CO2 [Moles/Vol] 31 mmol/L Normal 21-31 [facility] Comment on above: Performed By: #### I SWATI MARTINEZ CHM7 ####[place] (DEFAULT)[address] [facility] [place] [address] Creatinine [Mass/Vol] 0.65 mg/dL Low 0.70-1.30 [facility] Comment on above: Performed By: #### SWATI FISHER CHM7 ####[facility] (DEFAULT)[address] [facility] [place] [address] eGFR, CKD-EPI, Male > Normal >=60 [facility] Comment on above: Result Comment: Repo rted eGFR is based on the CKD-EPI 2020 equation using creatinine, age, and sex. Performed By: #### SWATI FISHER CHM7 ####[facility] (DEFAULT)[address] [facility] [place] [address] Glucose [Mass/Vol] 108 mg/dL High 70-99 [facility] Comment on above: Performed By: #### SWATI FISHER CHMRosemary ####[facility] (DEFAULT)[address] [facility] [place] [address] Osmolality [Osmolality] 287 mosm/kg Normal 278-305 [facility] Comment on above: Performed By: #### SWATI FISHER CHM7 ####[place] (DEFAULT)[address] [facility] [place] [address] Potassium [Moles/Vol] 3.4 mmol/L Low 3.5-5.0 [facility] Comment on above: Performed By: #### SWATI FISHER CHM7 ####[facility] (DEFAULT)[address] [facility] [place] [address] Sodium [Moles/Vol] 138 mmol/L Normal 135-145 [facility] Comment on above: Performed By: #### Keisha MARTINEZ MGO CHM7 ####[place] (DEFAULT)[address] [facility] [place] [address] Urea nitrogen [Mass/Vol] 8 mg/dL Normal 7-25 [facility] Comment on above: Performed By: #### I SWATI MARTINEZ CHM7 ####[place] (DEFAULT)[address] [place] [address] Urea nitrogen/Creatinine [Mass ratio] 12 mg/mg Normal [facility] Comment on above: Performed By: #### I SWATI MARTINEZ CHM7 ####[place] (DEFAULT)[address] [place] [address] DRAINAGE BY CATHETER PERITON EAL/RETROPERITONEAL PERCUTANEOUS W/ IMAGINon 04-30-2024 Radiology Study observation (narrative) [place] MAGNESIUMon 04-30-2024 Magnesium [Mass/Vol] 1.9 mg/dL 1.6 - 2 .6 mg/dL [place] Magnesium [Mass/Vol] 1.9 mg/dL Normal 1.6-2.6 [facility] Comment on above: Performed By: #### I SWATI MARTINEZ CHM7 ####[place] (DEFAULT)[address] [place] [address] No Panel Informationon 04-30 Interpretation and review of laboratory results Normal [facility] PHOSPHATE, INORGANICon 04-30 Phosphate [Mass/Vol] 2.7 mg/dL 2.2 - 4 .6 mg/dL [place] Phosphorous 2.7 mg/dL Normal 2.2-4.6 [facility] Comment on above: Performed By: #### I SWATI MARTINEZ CHM7 ####[place] (DEFAULT)[address] [place] [address] BACTERIAL CULTURE AND DIRECT SMEAR, LESION, TISSUE, DEVICEon 04-29-2024 Ampicillin [Susceptibility] <= Invalid Interpretation Code [facility] Comment on above: Order Comment: If an aerobe isolation is necessary, please send specimen for anaerobic culture. Performed By: #### S URGP #### [place] (DEFAULT) [address] [place] [address] cefTRIAXone [Susceptibility] <= Invalid Interpretation Code [facility] Comment on above: Order Comment: If an aerobe isolation is necessary, please send specimen for anaerobic culture. Performed By: #### S URGP #### [place] (DEFAULT) [address] [address] Clindamycin [Susceptibility] <= Invalid Interpretation Code [facility] Comment on above: Order Comment: If an aerobe isolation is necessary, please send specimen for anaerobic culture. Performed By: #### S URGP #### [place] (DEFAULT) [address] [place] [address] levoFLOXacin [Susceptibility] 0.5 ug/mL Invalid Interpretation Code [facility] Comment on above: Order Comment: If an aerobe isolation is necessary, please send specimen for anaerobic culture. Performed By: #### S URGP #### [place] (DEFAULT) [address] [address] Penicillin [Susceptibility] <=0.06 Invalid Interpretation Code [facility] Comment on above: Order Comment: If an aerobe isolation is necessary, please send specimen for anaerobic culture. Performed By: #### S URGP #### [place] (DEFAULT) [address] [address] Vancomycin [Susceptibility] 0.5 ug/mL Invalid Interpretation Code [facility] Comment on above: Order Comment: If an aerobe isolation is necessary, please send specimen for anaerobic culture. Performed By: #### S URGP #### [place] (DEFAULT) [address] [address] BLOOD CULTUREon 04-29-2024 Bacteria identified Cx Nom (Unsp spec) NO GROWTH DAY 5 OF 5 Normal [facility] Comment on above: Order Comment: 2 Bot tles (1 Set - consists of 1 Aerobic bottle and 1 Anaerobic bottle) -1st Peripheral DrawFor syringe method draw:If able to obtain adequate sample (20 ml) inoculate anaerobic bottle firstIf inadequate sample obtained (less than 20 ml) inoculate aerobic bottle firstFor vacutainer method draw: Fill aerobic bottle first, then anaerobic Performed By: #### S URGP #### [place] (DEFAULT) [address] [place] [address] CBC AND ELECTRONIC DIFFon Basophils (Bld) [#/Vol] 0.04 10*3/uL 0.00 - 0.09 K/uL [place] Basophils/100 WBC (Bld) 0.2 % [place] Differential cell count method Nom (Bld) Electronic Differential O [facility] Eosinophils (Bld) [#/Vol] 0.07 10*3/uL 0.00 - 0.48 K/uL [place] Eosinophils/100 WBC (Bld) 0.4 % [place] Erythrocyte distribution width (RBC) [Ratio] 14.0 % 10.9 - 14.3 % [place] Hematocrit (Bld) [Volume fraction] 27.5 % Low 39.6 - 48.8 % [place] Hemoglobin (Bld) [Mass/Vol] 9.1 g/dL Low 13.4 - 16.8 g/dL [place] Immature granulocytes (Bld) [#/Vol] 0.24 10*3/uL High NINF - 0.07 K/uL [place] Immature granulocytes/100 WBC (Bld) 1.4 % [place] Interpretation and review of laboratory results Abnormal [place] Lymphocytes (Bld) [#/Vol] 1.17 10*3/uL 0.83 - 3.57 K/uL [place] Lymphocytes/100 WBC (Bld) 6.8 % [place] MCH (RBC) [Entitic mass] 29.5 pg 26.1 - 33.3 pg [place] MCHC (RBC) [Mass/Vol] 33.1 g/dL 31.9 - 36.5 g/dL [place] MCV (RBC) [Entitic vol] 89.3 fL 79.0 - 94.5 fL [place] Monocytes (Bld) [#/Vol] 0.87 10*3/uL 0.24 - 0.93 K/uL [place] Monocytes/100 WBC (Bld) 5.1 % [place] Neutrophils (Bld) [#/Vol] 14.82 10*3/uL High 1.57 - 6.19 K/uL [place] Nucleated RBC/100 WBC (Bld) [Ratio] 0.0 % NINF [place] Platelet mean volume (Bld) [Entitic vol] 8.9 fL 8.7 - 12.3 fL [place] Platelets (Bld) [#/Vol] 330 10*3/uL 146 - 337 K/uL [place] RBC (Bld) [#/Vol] 3.08 10*6/uL Low [facility] Segmented neutrophils/100 WBC (Bld) 86.1 % [place] WBC (Bld) [#/Vol] 17.21 10*3/uL High 3.73 - 10.10 K/uL [facility] Basophils (Bld) [#/Vol] 0.04 10*3/uL Normal 0.00-0.09 [facility] Comment on above: Performed By: #### T YPEC #### [place] (DEFAULT) [address] [address] Basophils/100 WBC (Bld) 0.2 % Normal [facility] Comment on above: Performed By: #### T YPEC #### [place] (DEFAULT) [address] [place] [address] DIFF STATUS Electronic Differential Normal [facility] Comment on above: Performed By: #### T YPEC #### [place] (DEFAULT) [address] [place] [address] Eosinophils (Bld) [#/Vol] 0.07 10*3/uL Normal 0.00-0.48 [facility] Comment on above: Performed By: #### T YPEC #### [place] (DEFAULT) [address] [place] [address] Eosinophils/100 WBC (Bld) 0.4 % Normal [facility] Comment on above: Performed By: #### T YPEC #### [place] (DEFAULT) [address] [address] Hematocrit (Bld) [Volume fraction] 27.5 % Low 39.6-48.8 [facility] Comment on above: Performed By: #### T YPEC #### [place] (DEFAULT) [address] [address] Hemoglobin (Bld) [Mass/Vol] 9.1 g/dL Low 13.4-16.8 [facility] Comment on above: Performed By: #### T YPEC #### [place] (DEFAULT) [address] [address] Immature Grans % 1.4 % Normal [facility] Comment on above: Performed By: #### T YPEC #### [place] (DEFAULT) [address] [address] Immature Grans Absolute 0.24 K/uL High <=0.07 [facility] Comment on above: Performed By: #### T YPEC #### [place] (DEFAULT) [address] [address] Lymphocytes (Bld) [#/Vol] 1.17 10*3/uL Normal 0.83-3.57 [facility] Comment on above: Performed By: #### T YPEC #### [place] (DEFAULT) [address] [address] Lymphocytes/100 WBC (Bld) 6.8 % Normal [facility] Comment on above: Performed By: #### T YPEC #### [place] (DEFAULT) [address] [address] MCV (RBC) [Entitic vol] 89.3 fL Normal 79.0-94.5 [facility] Comment on above: Performed By: #### T YPEC #### [place] (DEFAULT) [address] [address] Mean Cell Hgb 29.5 pg Normal 26.1-33.3 [facility] Comment on above: Performed By: #### T YPEC #### [place] (DEFAULT) [address] [address] Mean Cell Hgb Conc 33.1 g/dL Normal 31.9-36.5 [facility] Comment on above: Performed By: #### T YPEC #### [place] (DEFAULT) [address] [address] Monocytes (Bld) [#/Vol] 0.87 10*3/uL Normal 0.24-0.93 [facility] Comment on above: Performed By: #### T YPEC #### [place] (DEFAULT) [address] [address] Monocytes/100 WBC (Bld) 5.1 % Normal [facility] Comment on above: Performed By: #### T YPEC #### [place] (DEFAULT) [address] [address] Nucleated RBC 0.0 /100 WBC Normal <=0.2 [facility] Comment on above: Performed By: #### T YPEC #### [place] (DEFAULT) [address] [address] Platelet mean volume (Bld) [Entitic vol] 8.9 fL Normal 8.7-12.3 [facility] Comment on above: Performed By: #### T YPEC #### [place] (DEFAULT) [address] [address] Platelets (Bld) [#/Vol] 330 10*3/uL Normal 146-337 [facility] Comment on above: Performed By: #### T YPEC #### [place] (DEFAULT) [address] [address] RBC (Bld) [#/Vol] 3.08 10*6/uL Low 4.38-5.83 [facility] Comment on above: Performed By: #### T YPEC #### [place] (DEFAULT) [address] [place] [address] RBC Distribution 14.0 % Normal 10.9-14.3 [facility] Comment on above: Performed By: #### T YPEC #### [place] (DEFAULT) [address] [place] [address] Segs + Bands Auto 86.1 % Normal [facility] Comment on above: Performed By: #### T YPEC #### [place] (DEFAULT) [address] [place] [address] Segs + Bands,Absolute Auto 14.82 K/uL High 1.57-6.19 [facility] Comment on above: Performed By: #### T YPEC #### [place] (DEFAULT) [address] [place] [address] WBC (Bld) [#/Vol] 17.21 10*3/uL High 3.73-10.10 [facility] Comment on above: Performed By: #### T YPEC #### [place] (DEFAULT) [address] [place] [address] CEAOrdered By: Negro grace on 04-29-2024 Carcinoembryonic Ag [Mass/Vol] ng/mL NINF - 5.0 ng/mL [place] Comment on above: This test was perfor med on the Siemens I-PulsellAMT IM Immunoassay platform which is a 2-step sandwich chemiluminescent immunoassay. It is important to note that assays using different manufacturers and/or methods may not be comparable. Interpretation and review of laboratory results Normal [facility] CEAon 04-29-2024 Cea <2.0 Normal <=5.0 [facility] Comment on above: Result Comment: This test was performed on the Siemens Atellica IM Immunoassay platform which is a 2-step sandwich chemiluminescent immunoassay. It is important to note that assays using different manufacturers and/or methods may not be comparable. Performed By: #### S URGP #### [facility] (DEFAULT) [address] [place] [address] CHEM 7 (LYTES,BUN,CREA,GLUC) on 04-29-2024 Anion gap [Moles/Vol] 8 mmol/L 7 - 17 mmol/L [place] Chloride [Moles/Vol] 105 mmol/L 98 - 10 8 mmol/L [place] CO2 [Moles/Vol] 28 mmol/L 21 - 31 mmol/L [place] Creatinine [Mass/Vol] 0.45 mg/dL Low 0.70 - 1.30 mg/dL [place] eGFR, CKD-EPI, Male - PINF [facility] Comment on above: Reported eGFR is bas ed on the CKD-EPI 2020 equation using creatinine, age, and sex. Glucose [Mass/Vol] 93 mg/dL 70 - 99 mg/dL [place] Interpretation and review of laboratory results Abnormal [place] Osmolality Calc [Osmolality] 285 [place] Potassium [Moles/Vol] 3.4 mmol/L Low 3.5 - 5.0 mmol/L [place] Comment on above: Specimen hemolyzed. Potassium results may be falsely elevated masking hypokalemia. Interpret within the clinical context. Sodium [Moles/Vol] 138 mmol/L 135 - 145 mmol/L [place] Urea nitrogen [Mass/Vol] 7 mg/dL 7 - 25 mg/dL [place] Urea nitrogen/Creatinine [Mass ratio] 16 mg/mg [facility] Anion gap [Moles/Vol] 8 mmol/L Normal 7-17 [facility] Comment on above: Performed By: #### S URGP #### [place] (DEFAULT) [address] [place] [address] Chloride [Moles/Vol] 105 mmol/L Normal 98-108 [facility] Comment on above: Performed By: #### S URGP #### [place] (DEFAULT) [address] [place] [address] CO2 [Moles/Vol] 28 mmol/L Normal 21-31 [facility] Comment on above: Performed By: #### S URGP #### [facility] (DEFAULT) [address] [address] Creatinine [Mass/Vol] 0.45 mg/dL Low 0.70-1.30 [facility] Comment on above: Performed By: #### S URGP #### [place] (DEFAULT) [address] [place] [address] eGFR, CKD-EPI, Male > Normal >=60 [facility] Comment on above: Result Comment: Repo rted eGFR is based on the CKD-EPI 2020 equation using creatinine, age, and sex. Performed By: #### S URGP #### [facility] (DEFAULT) [address] [address] Glucose [Mass/Vol] 93 mg/dL Normal 70-99 [facility] Comment on above: Performed By: #### S URGP #### [facility] (DEFAULT) [address] [address] Osmolality [Osmolality] 285 mosm/kg Normal 278-305 [facility] Comment on above: Performed By: #### S URGP #### [facility] (DEFAULT) [address] [address] Potassium [Moles/Vol] 3.4 mmol/L Low 3.5-5.0 [facility] Comment on above: Result Comment: Spec imen hemolyzed. Potassium results may be falsely elevated masking hypokalemia. Interpret within the clinical context. Performed By: #### S URGP #### [facility] (DEFAULT) [address] [address] Sodium [Moles/Vol] 138 mmol/L Normal 135-145 [facility] Comment on above: Performed By: #### S URGP #### [facility] (DEFAULT) [address] [address] Urea nitrogen [Mass/Vol] 7 mg/dL Normal 7-25 [facility] Comment on above: Performed By: #### S URGP #### [place] (DEFAULT) [address] [place] [address] Urea nitrogen/Creatinine [Mass ratio] 16 mg/mg Normal [facility] Comment on above: Performed By: #### S URGP #### [place] (DEFAULT) [address] [place] [address] Anion gap [Moles/Vol] 7 mmol/L 7 - 17 mmol/L [place] Chloride [Moles/Vol] 100 mmol/L 98 - 10 8 mmol/L [place] CO2 [Moles/Vol] 33 mmol/L High 21 - 31 mmol/L [place] Creatinine [Mass/Vol] 0.53 mg/dL Low 0.70 - 1.30 mg/dL [place] eGFR, CKD-EPI, Male - PINF [facility] Comment on above: Reported eGFR is bas ed on the CKD-EPI 2020 equation using creatinine, age, and sex. Glucose [Mass/Vol] 100 mg/dL High 70 - 99 mg/dL [place] Interpretation and review of laboratory results Abnormal [place] Osmolality Calc [Osmolality] 284 [place] Potassium [Moles/Vol] 3.4 mmol/L Low 3.5 - 5.0 mmol/L [place] Sodium [Moles/Vol] 137 mmol/L 135 - 145 mmol/L [place] Urea nitrogen [Mass/Vol] 7 mg/dL 7 - 25 mg/dL [place] Urea nitrogen/Creatinine [Mass ratio] 13 mg/mg [facility] Anion gap [Moles/Vol] 7 mmol/L Normal 7-17 [facility] Comment on above: Performed By: #### S URGP #### [place] (DEFAULT) [address] [place] [address] Chloride [Moles/Vol] 100 mmol/L Normal 98-108 [facility] Comment on above: Performed By: #### S URGP #### [facility] (DEFAULT) [address] [place] [address] CO2 [Moles/Vol] 33 mmol/L High 21-31 [facility] Comment on above: Performed By: #### S URGP #### [facility] (DEFAULT) [address] [place] [address] Creatinine [Mass/Vol] 0.53 mg/dL Low 0.70-1.30 [facility] Comment on above: Performed By: #### S URGP #### [facility] (DEFAULT) [address] [place] [address] eGFR, CKD-EPI, Male > Normal >=60 [facility] Comment on above: Result Comment: Repo rted eGFR is based on the CKD-EPI 2020 equation using creatinine, age, and sex. Performed By: #### S URGP #### [facility] (DEFAULT) [address] [place] [address] Glucose [Mass/Vol] 100 mg/dL High 70-99 [facility] Comment on above: Performed By: #### S URGP #### [facility] (DEFAULT) [address] [place] [address] Osmolality [Osmolality] 284 mosm/kg Normal 278-305 [facility] Comment on above: Performed By: #### S URGP #### [facility] (DEFAULT) [address] [place] [address] Potassium [Moles/Vol] 3.4 mmol/L Low 3.5-5.0 [facility] Comment on above: Performed By: #### S URGP #### [facility] (DEFAULT) [address] [place] [address] Sodium [Moles/Vol] 137 mmol/L Normal 135-145 [facility] Comment on above: Performed By: #### S URGP #### [place] (DEFAULT) [address] [place] [address] Urea nitrogen [Mass/Vol] 7 mg/dL Normal 7-25 [facility] Comment on above: Performed By: #### S URGP #### [place] (DEFAULT) [address] [place] [address] Urea nitrogen/Creatinine [Mass ratio] 13 mg/mg Normal [facility] Comment on above: Performed By: #### S URGP #### [facility] (DEFAULT) [address] [place] [address] Anion gap [Moles/Vol] 8 mmol/L 7 - 17 mmol/L [place] Chloride [Moles/Vol] 100 mmol/L 98 - 10 8 mmol/L [place] CO2 [Moles/Vol] 33 mmol/L High 21 - 31 mmol/L [place] Creatinine [Mass/Vol] 0.57 mg/dL Low 0.70 - 1.30 mg/dL [place] eGFR, CKD-EPI, Male - PINF [facility] Comment on above: Reported eGFR is bas ed on the CKD-EPI 2020 equation using creatinine, age, and sex. Glucose [Mass/Vol] 97 mg/dL 70 - 99 mg/dL [place] Interpretation and review of laboratory results Abnormal [place] Osmolality Calc [Osmolality] 286 [place] Potassium [Moles/Vol] 3.1 mmol/L Low 3.5 - 5.0 mmol/L [place] Sodium [Moles/Vol] 138 mmol/L 135 - 145 mmol/L [place] Urea nitrogen [Mass/Vol] 9 mg/dL 7 - 25 mg/dL [place] Urea nitrogen/Creatinine [Mass ratio] 16 mg/mg [facility] Anion gap [Moles/Vol] 8 mmol/L Normal 7-17 [facility] Comment on above: Performed By: #### C HM7 ####[place] (DEFAULT)[address] [place] [address] Chloride [Moles/Vol] 100 mmol/L Normal 98-108 [facility] Comment on above: Performed By: #### C HM7 ####[place] (DEFAULT)[address] [place] [address] CO2 [Moles/Vol] 33 mmol/L High 21-31 [facility] Comment on above: Performed By: #### C HM7 ####[place] (DEFAULT)[address] [place] [address] Creatinine [Mass/Vol] 0.57 mg/dL Low 0.70-1.30 [facility] Comment on above: Performed By: #### C HM7 ####[place] (DEFAULT)[address] [place] [address] eGFR, CKD-EPI, Male > Normal >=60 [facility] Comment on above: Result Comment: Repo rted eGFR is based on the CKD-EPI 2020 equation using creatinine, age, and sex. Performed By: #### C HM7 ####[place] (DEFAULT)[address] [facility] [place] [address] Glucose [Mass/Vol] 97 mg/dL Normal 70-99 [facility] Comment on above: Performed By: #### C HM7 ####[place] (DEFAULT)[address] [facility] [place] [address] Osmolality [Osmolality] 286 mosm/kg Normal 278-305 [facility] Comment on above: Performed By: #### C HM7 ####[place] (DEFAULT)[address] [place] [address] Potassium [Moles/Vol] 3.1 mmol/L Low 3.5-5.0 [facility] Comment on above: Performed By: #### C HM7 ####[place] (DEFAULT)[address] [place] [address] Sodium [Moles/Vol] 138 mmol/L Normal 135-145 [facility] Comment on above: Performed By: #### C HM7 ####[place] (DEFAULT)[address] [place] [address] Urea nitrogen [Mass/Vol] 9 mg/dL Normal 7-25 [facility] Comment on above: Performed By: #### C HM7 ####[place] (DEFAULT)[address] [place] [address] Urea nitrogen/Creatinine [Mass ratio] 16 mg/mg Normal [facility] Comment on above: Performed By: #### C HM7 ####[place] (DEFAULT)[address] [place] [address] CH 7 - EDOrdered By: Robyn Jaimes on 04-29-2024 Anion gap [Moles/Vol] 9 mmol/L 7 - 17 mmol/L [place] Chloride [Moles/Vol] 100 mmol/L 98 - 10 8 mmol/L [place] CO2 [Moles/Vol] 34 mmol/L High 21 - 31 mmol/L [place] Creatinine [Mass/Vol] 0.56 mg/dL Low 0.70 - 1.30 mg/dL [place] eGFR, CKD-EPI, Male - PINF [facility] Comment on above: Reported eGFR is bas ed on the CKD-EPI 2020 equation using creatinine, age, and sex. Glucose [Mass/Vol] 97 mg/dL 70 - 99 mg/dL [place] Interpretation and review of laboratory results Abnormal [place] Osmolality Calc [Osmolality] 289 [place] Potassium [Moles/Vol] 2.7 mmol/L Critically low 3.5 - 5.0 mmol/L [place] Comment on above: Specimen integrity claire solares. Repeated and verified Sodium [Moles/Vol] 140 mmol/L 135 - 145 mmol/L [place] Urea nitrogen [Mass/Vol] 10 mg/dL 7 - 25 mg/dL [place] Urea nitrogen/Creatinine [Mass ratio] 18 mg/mg [facility] CHM 7 - EDon 04-29-2024 Anion gap [Moles/Vol] 9 mmol/L Normal 7-17 [facility] Comment on above: Performed By: #### C HM7, IPB, MGO #### [facility] (DEFAULT) [address] [place] [address] Chloride [Moles/Vol] 100 mmol/L Normal 98-108 [facility] Comment on above: Performed By: #### C HM7, IPB, MGO #### [place] (DEFAULT) [address] [place] [address] CO2 [Moles/Vol] 34 mmol/L High 21-31 [facility] Comment on above: Performed By: #### Claire HM7, IPB, MGO #### [place] (DEFAULT) [address] [place] [address] Creatinine [Mass/Vol] 0.56 mg/dL Low 0.70-1.30 [facility] Comment on above: Performed By: #### Claire HM7, IPB, MGO #### [facility] (DEFAULT) [address] [place] [address] eGFR, CKD-EPI, Male > Normal >=60 [facility] Comment on above: Result Comment: Repo rted eGFR is based on the CKD-EPI 2020 equation using creatinine, age, and sex. Performed By: #### Claire HM7, IPB, MGO #### [facility] (DEFAULT) [address] [place] [address] Glucose [Mass/Vol] 97 mg/dL Normal 70-99 [facility] Comment on above: Performed By: #### Claire HM7, IPB, MGO #### [facility] (DEFAULT) [address] [place] [address] Osmolality [Osmolality] 289 mosm/kg Normal 278-305 [facility] Comment on above: Performed By: #### C HM7, IPB, MGO #### [facility] (DEFAULT) [address] [place] [address] Potassium [Moles/Vol] 2.7 mmol/L Critically low 3.5-5.0 [facility] Comment on above: Result Comment: Spec imen integrity checked. Repeated and verified Performed By: #### C HM7, IPB, MGO #### [facility] (DEFAULT) [address] [place] [address] Sodium [Moles/Vol] 140 mmol/L Normal 135-145 [facility] Comment on above: Performed By: #### C HM7, IPB, MGO #### [facility] (DEFAULT) [address] [place] [address] Urea nitrogen [Mass/Vol] 10 mg/dL Normal 7-25 [facility] Comment on above: Performed By: #### Claire HM7, IPB, MGO #### [facility] (DEFAULT) [address] [place] [address] Urea nitrogen/Creatinine [Mass ratio] 18 mg/mg Normal [facility] Comment on above: Performed By: #### Claire HM7, IPB, MGO #### [facility] (DEFAULT) [address] [place] [address] ABDOMEN/PELVIS WITH CONTR Yeison 04-29-2024 CT ABDOMEN/PELVIS WITH CONTRAST EXAM: CT ABDOMEN/PELVIS WITH CONTRAST, 04/29/2024 07:05 AM COMPARISON: CT abdomen and pelvis from April 28, 2024. CLINICAL INDICATIONS: Post-colectomy intraabdominal abscess TECHNIQUE: CT scanning was performed of the abdomen and pelvis following the administration of intravenous contrast. PROTOCOL: Standard. CONTRAST: iohexol (OMNIPAQUE) 350 MG/ML injection 1-171 mL; Route of Administration: Intravenous; Dose: 70 mL. FINDINGS: Lung Bases: Trace pleural effusions with adjacent atelectasis. Liver: Normal aside from periportal edema. Gallbladder: Gallbladder edema is likely reactive from the adjacent abscess. Bile Ducts: Normal in caliber. Spleen: Normal. Pancreas: Normal. Adrenals: Normal. Right Kidney: Mild hydroureteronephrosis due to inflammatory changes in the pelvis. Left Kidney: Mild hydroureteronephrosis due to inflammatory changes in the pelvis. Tiny cortical hypodensities are too small to characterize but probably cysts. Gastrointestinal: Postsurgical changes of sigmoid resection with left lower quadrant colostomy. Within the rectal stump, there is a polypoid lesion measuring 3.7 x 2.7 cm (axial image 145). Abscess along the rectal staple line measures 8.0 x 7.0 cm (axial image 130). This is presumably related to dehiscence. No bowel obstruction. Wall thickening of some of the bowel loops is likely reactive from the abscesses described below. Diverticulosis of the descending colon.. Peritoneum/retroperitoneum : Small volume ascites. Mesenteric edema. No free air. Abscess along the rectal staple line as above. There is also an abscess in the right paracolic gutter abutting the inferior liver measuring 9.2 x 4.4 cm (axial image 76). This may connect with the perirectal abscess via a thin tract (axial images 93 through 120). There are several other thick walled fluid collections in the mesentery which are likely additional abscesses (axial image 86 and 117). Lymph nodes: No enlarged or morphologically abnormal lymph nodes. Vasculature: The abdominal aorta is normal in course and caliber. Patent celiac and superior mesenteric arteries. Patent portal, splenic, and superior mesenteric veins. Bladder: Decompressed by Cisneros catheter. Pelvic Organs: Prostate is mildly enlarged. Body Wall: Diffuse body wall edema. Abdominal wound containing gas and hyperdense material (axial image 104). The hyperdense material is new from yesterday's exam. This could reflect oral contrast or some kind of packing/surgical material. There is no definite fistulous communication with adjacent bowel. It does appear to abut the left lower quadrant fluid collection. Bones: Normal for patient age. No aggressive lesion. IMPRESSION: 1. 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 Abscess along the rectal staple line presumably from dehiscence. This communicates with an abscess in the right paracolic gutter. Additional mesenteric fluid collections are also worrisome for abscesses. 2. Abdominal wound containing gas and hyperdense material which is new from yesterday's exam. This could reflect oral contrast from an enterocutaneous fistula although no definite communication with the bowel is seen. It could also reflect some kind of packing/surgical material. Clinical correlation is requested. 3. Polypoid lesion in the rectal stump. 4. Mild bilateral hydroureteronephrosis due to inflammatory changes in the pelvis. Normal [facility] CT Abdomen and Pelvis W shikha Tracy 04-29-2024 IMPRESSION: 1. 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 Abscess along the rectal staple line presumably from dehiscence. This communicates with an abscess in the right paracolic gutter. Additional mesenteric fluid collections are also worrisome for abscesses. 2. Abdominal wound containing gas and hyperdense material which is new from yesterday's exam. This could reflect oral contrast from an enterocutaneous fistula although no definite communication with the bowel is seen. It could also reflect some kind of packing/surgical material. Clinical correlation is requested. 3. Polypoid lesion in the rectal stump. 4. Mild bilateral hydroureteronephrosis due to inflammatory changes in the pelvis. OLOGY EXAM: CT ABDOMEN/PEL VIS WITH CONTRAST, 04/29/2024 07:05 AM COMPARISON: CT abdomen and pelvis from April 28, 2024. CLINICAL INDICATIONS: Post-colectomy intraabdominal abscess TECHNIQUE: CT scanning was performed of the abdomen and pelvis following the administration of intravenous contrast. PROTOCOL: Standard. CONTRAST: iohexol (OMNIPAQUE) 350 MG/ML injection 1-171 mL; Route of Administration: Intravenous; Dose: 70 mL. FINDINGS: Lung Bases: Trace pleural effusions with adjacent atelectasis. Liver: Normal aside from periportal edema. Gallbladder: Gallbladder edema is likely reactive from the adjacent abscess. Bile Ducts: Normal in caliber. Spleen: Normal. Pancreas: Normal. Adrenals: Normal. Right Kidney: Mild hydroureteronephrosis due to inflammatory changes in the pelvis. Left Kidney: Mild hydroureteronephrosis due to inflammatory changes in the pelvis. Tiny cortical hypodensities are too small to characterize but probably cysts. Gastrointestinal: Postsurgical changes of sigmoid resection with left lower quadrant colostomy. Within the rectal stump, there is a polypoid lesion measuring 3.7 x 2.7 cm (axial image 145). Abscess along the rectal staple line measures 8.0 x 7.0 cm (axial image 130). This is presumably related to dehiscence. No bowel obstruction. Wall thickening of some of the bowel loops is likely reactive from the abscesses described below. Diverticulosis of the descending colon.. Peritoneum/retroperitoneum : Small volume ascites. Mesenteric edema. No free air. Abscess along the rectal staple line as above. There is also an abscess in the right paracolic gutter abutting the inferior liver measuring 9.2 x 4.4 cm (axial image 76). This may connect with the perirectal abscess via a thin tract (axial images 93 through 120). There are several other thick walled fluid collections in the mesentery which are likely additional abscesses (axial image 86 and 117). Lymph nodes: No enlarged or morphologically abnormal lymph nodes. Vasculature: The abdominal aorta is normal in course and caliber. Patent celiac and superior mesenteric arteries. Patent portal, splenic, and superior mesenteric veins. Bladder: Decompressed by Cisneros catheter. Pelvic Organs: Prostate is mildly enlarged. Body Wall: Diffuse body wall edema. Abdominal wound containing gas and hyperdense material (axial image 104). The hyperdense material is new from yesterday's exam. This could reflect oral contrast or some kind of packing/surgical material. There is no definite fistulous communication with adjacent bowel. It does appear to abut the left lower quadrant fluid collection. Bones: Normal for patient age. No aggressive lesion. RADIOLOGY Rubia Meyers MD - 04/29/2024 EXAM: CT ABDOMEN/PELVIS WITH CONTRAST, 04/29/2024 07:05 AM COMPARISON: CT abdomen and pelvis from April 28, 2024. CLINICAL INDICATIONS: Post-colectomy intraabdominal abscess TECHNIQUE: CT scanning was performed of the abdomen and pelvis following the administration of intravenous contrast. PROTOCOL: Standard. CONTRAST: iohexol (OMNIPAQUE) 350 MG/ML injection 1-171 mL; Route of Administration: Intravenous; Dose: 70 mL. FINDINGS: Lung Bases: Trace pleural effusions with adjacent atelectasis. Liver: Normal aside from periportal edema. Gallbladder: Gallbladder edema is likely reactive from the adjacent abscess. Bile Ducts: Normal in caliber. Spleen: Normal. Pancreas: Normal. Adrenals: Normal. Right Kidney: Mild hydroureteronephrosis due to inflammatory changes in the pelvis. Left Kidney: Mild hydroureteronephrosis due to inflammatory changes in the pelvis. Tiny cortical hypodensities are too small to characterize but probably cysts. Gastrointestinal: Postsurgical changes of sigmoid resection with left lower quadrant colostomy. Within the rectal stump, there is a polypoid lesion measuring 3.7 x 2.7 cm (axial image 145). Abscess along the rectal staple line measures 8.0 x 7.0 cm (axial image 130). This is presumably related to dehiscence. No bowel obstruction. Wall thickening of some of the bowel loops is likely reactive from the abscesses described below. Diverticulosis of the descending colon.. Peritoneum/retroperitoneum : Small volume ascites. Mesenteric edema. No free air. Abscess along the rectal staple line as above. There is also an abscess in the right paracolic gutter abutting the inferior liver measuring 9.2 x 4.4 cm (axial image 76). This may connect with the perirectal abscess via a thin tract (axial images 93 through 120). There are several other thick walled fluid collections in the mesentery which are likely additional abscesses (axial image 86 and 117). Lymph nodes: No enlarged or morphologically abnormal lymph nodes. Vasculature: The abdominal aorta is normal in course and caliber. Patent celiac and superior mesenteric arteries. Patent portal, splenic, and superior mesenteric veins. Bladder: Decompressed by Cisneros catheter. Pelvic Organs: Prostate is mildly enlarged. Body Wall: Diffuse body wall edema. Abdominal wound containing gas and hyperdense material (axial image 104). The hyperdense material is new from yesterday's exam. This could reflect oral contrast or some kind of packing/surgical material. There is no definite fistulous communication with adjacent bowel. It does appear to abut the left lower quadrant fluid collection. Bones: Normal for patient age. No aggressive lesion. IMPRESSION IMPRESSION: 1. 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 Abscess along the rectal staple line presumably from dehiscence. This communicates with an abscess in the right paracolic gutter. Additional mesenteric fluid collections are also worrisome for abscesses. 2. Abdominal wound containing gas and hyperdense material which is new from yesterday's exam. This could reflect oral contrast from an enterocutaneous fistula although no definite communication with the bowel is seen. It could also reflect some kind of packing/surgical material. Clinical correlation is requested. 3. Polypoid lesion in the rectal stump. 4. Mild bilateral hydroureteronephrosis due to inflammatory changes in the pelvis. [place] [facility] Study observation (narrative) [place] [facility] Abdomen and Pelvis W cont rast IVOrdered By: Rubia Meyers on 04-29-2024 [place] Work Phone: HEPATIC FUNCTION PANELon Albumin [Mass/Vol] 2.6 g/dL Low 3.5 - 5.0 g/dL [place] ALP [Catalytic activity/Vol] 92 U/L 32 - 126 U/L [place] ALT [Catalytic activity/Vol] 50 U/L 10 - 52 U/L [place] AST [Catalytic activity/Vol] 61 U/L High 10 - 39 U/L [place] Bilirubin [Mass/Vol] 0.6 mg/dL [facility]/dL [place] Bilirubin.direct [Mass/Vol] 0.1 mg/dL [facility] 0.[facility] mg/dL [place] Interpretation and review of laboratory results Abnormal [place] Protein [Mass/Vol] 5.9 g/dL Low 6.4 - 8.3 g/dL [facility] Albumin [Mass/Vol] 2.6 g/dL Low 3.5-5.0 [facility] Comment on above: Performed By: #### C ELEN STAPLES MGO #### [place] (DEFAULT) [address] [place] [address] ALP [Catalytic activity/Vol] 92 U/L Normal 32-126 [facility] Comment on above: Performed By: #### ELEN GAMBINO MGO #### [place] (DEFAULT) [address] [place] [address] ALT [Catalytic activity/Vol] 50 U/L Normal 10-52 [facility] Comment on above: Performed By: #### Claire HM7, IPB, MGO #### [facility] (DEFAULT) [address] [place] [address] AST [Catalytic activity/Vol] 61 U/L High 10-39 [facility] Comment on above: Performed By: #### Claire HM7, IPB, MGO #### [place] (DEFAULT) [address] [place] [address] Bilirubin [Mass/Vol] 0.6 mg/dL Normal <1.5 [facility] Comment on above: Performed By: #### Claire HM7, IPB, MGO #### [place] (DEFAULT) [address] [place] [address] Bilirubin.indirect [Mass/Vol] 0.1 mg/dL Normal <0.3 [facility] Comment on above: Performed By: #### Claire HM7, IPB, MGO #### [place] (DEFAULT) [address] [place] [address] Protein [Mass/Vol] 5.9 g/dL Low 6.4-8.3 [facility] Comment on above: Performed By: #### Claire HM7, IPB, MGO #### [place] (DEFAULT) [address] [place] [address] MINT GREEN TOP TUBEon 2023 [place] No Panel Informationon 04-29 [place] PLATELET COUNTon 04-29-2024 Interpretation and review of laboratory results Normal [place] Platelet mean volume (Bld) [Entitic vol] 9.3 fL 8.7 - 12.3 fL [place] Platelets (Bld) [#/Vol] 308 10*3/uL 146 - 337 K/uL [facility] Platelet mean volume (Bld) [Entitic vol] 9.3 fL Normal 8.7-12.3 [facility] Comment on above: Performed By: #### G EN #### [place] (DEFAULT) [address] [place] [address] Platelets (Bld) [#/Vol] 308 10*3/uL Normal 146-337 [facility] Comment on above: Performed By: #### G EN #### [place] (DEFAULT) [address] [place] [address] PT,INR,PTTon 04-29-2024 aPTT Coag (PPP) [Time] 34.8 s High [facility] INR Coag (Bld) [Relative time] 1.4 {INR} High 0.9 - 1.1 [place] Interpretation and review of laboratory results Abnormal [place] PT Coag (PPP) [Time] 16.7 s High [facility] aPTT Coag (Bld) [Time] 34.8 s High 24.0-34.3 [facility] Comment on above: Performed By: #### S URGP #### [place] (DEFAULT) [address] [place] [address] INR Coag (PPP) [Relative time] 1.4 {INR} High 0.9-1.1 [facility] Comment on above: Performed By: #### S URGP #### [place] (DEFAULT) [address] [place] [address] PT Coag (PPP) [Time] 16.7 s High 11.9-14.2 [facility] Comment on above: Performed By: #### S URGP #### [place] (DEFAULT) [address] [place] [address] VENOUS BLOOD GAS PLUS LACTAT EOrdered By: Doug León on 04-29-2024 Base excess Calc (Bld) [Moles/Vol] 13.5 mmol/L High -3.0 - 3.0 mmol/L [place] CO2 (Bld) [Partial pressure] 41 mm[Hg] [place] HCO3 (Bld) [Moles/Vol] 36 mmol/L High 22 - 29 mmol/L [place] Interpretation and review of laboratory results Abnormal [place] Lactate [Moles/Vol] 0.9 mmol/L 0.5 - 1. 6 mmol/L [place] Oxygen (Bld) [Partial pressure] 65 mm[Hg] mm Hg [facility] Comment on above: Venous pO2 is not re commended for the evaluation of oxygen status, clinical correlation is recommended. Oxygen saturation in Blood 95 % High 70 - 80 % [place] pH (Bld) 7.55 [pH] Critically high 7.32 - 7.43 [place] Specimen source Nom (Unsp spec) Venous [facility] VENOUS BLOOD GAS PLUS LACTAT Wes 04-29-2024 Base Excess 13.5 mmol/L High -3.0-3.0 [facility] Comment on above: Performed By: #### G ASVL #### [place] (DEFAULT) [address] [place] [address]8982 HCO3 (Bld) [Moles/Vol] 36 mmol/L High 22-29 [facility] Comment on above: Performed By: #### G ASVL #### [place] (DEFAULT) [address] [place] [address] 11913 Lactate, Whole Blood 0.9 mmol/L Normal 0.5-1.6 [facility] Comment on above: Performed By: #### G ASVL #### [place] (DEFAULT) [address] [place] [address] 28086 Oxygen saturation in Blood 95 % High 70-80 [facility] Comment on above: Performed By: #### G ASVL #### [place] (DEFAULT) [address] [place] [address]26 pCO2, Venous 41 mm Hg Normal 36-52 [facility] Comment on above: Performed By: #### G ASVL #### [facility] (DEFAULT) [address] [place] [address] pH, Venous 7.55 Critically high 7.32-7.43 [facility] Comment on above: Performed By: #### G ASVL #### [facility] (DEFAULT) [address] [place] [address]54 pO2, Venous 65 mm Hg Normal [facility] Comment on above: Result Comment: Veno us pO2 is not recommended for the evaluation of oxygen status, clinical correlation is recommended. Performed By: #### G ASVL #### [facility] (DEFAULT) [address] [address] Specimen type Nom (Spec) Venous Normal [facility] Comment on above: Performed By: #### G ASVL #### [facility] (DEFAULT) [address] [place] [address]98 Abdomen/Pelvis W IV Cont ONL Yon 04-28-2024 Abdomen/Pelvis W IV Cont ONLY Normal [facility] CBC W/Diff, Automatedon 07- SMEAR COMMENT SCANNED Normal [facility] Comment on above: Result Comment: NEUT ROPHILIA NOTED Performed By: #### L 500.4050, L100.0100 ####[facility] [address] [place], [address] Comprehensive Metabolic Prof ilon 04-28-2024 Albumin [Mass/Vol] 2.1 g/dL Low 3.2-5.0 [facility] Comment on above: Performed By: #### L 500.4050, L100.0100 ####[facility] [address] [place], [address] Albumin/Globulin [Mass ratio] 0.5 {ratio} Low 0.9-2.4 [facility] Comment on above: Performed By: #### L 500.4050, L100.0100 ####[facility] [address] [place], [address] ALK P 121 U/L High 45-117 [facility] Comment on above: Performed By: #### L 500.4050, L100.0100 ####[facility] [address] [place], [address] ALT [Catalytic activity/Vol] 81 U/L High 16-61 [facility] Comment on above: Performed By: #### L 500.4050, L100.0100 ####[facility] [address] [place], [address] AST [Catalytic activity/Vol] 119 U/L High 15-37 [facility] Comment on above: Performed By: #### L 500.4050, L100.0100 ####[facility] [address] [place], [address] Bilirubin [Mass/Vol] 0.40 mg/dL Normal 0.20-1.00 [facility] Comment on above: Result Comment: For patients on eltrombopag therapy, use of Dimension [place] TBIL is not recommended. Performed By: #### L 500.4050, L100.0100 ####[facility] [address] [place], [address] BUN/CRE 18.5 RATIO Normal 10-20 [facility] Comment on above: Performed By: #### L 500.4050, L100.0100 ####[facility] [address] [place], [address] CA,Total 8.1 mg/dL Low 8.5-10.1 [facility] Comment on above: Performed By: #### L 500.4050, L100.0100 ####[facility] [address] [place], [address] Chloride [Moles/Vol] 97 mmol/L Low 98-107 [facility] Comment on above: Performed By: #### L 500.4050, L100.0100 ####[facility] [address] [place], [address] CO2 [Moles/Vol] 34.0 mmol/L High 21.0-32.0 [facility] Comment on above: Performed By: #### L 500.4050, L100.0100 ####[facility] [address] [place], [address] Creatinine [Mass/Vol] 0.70 mg/dL Normal 0.70-1.30 [facility] Comment on above: Result Comment: The validity of the calculated GFR GFRAA in patients over70 years has not been determined. Clinical correlation isessential. Performed By: #### L 500.4050, L100.0100 ####[facility] [address] [place], [address] ECRCL 96.81 ml/min Normal [facility] Comment on above: Performed By: #### L 500.4050, L100.0100 ####[facility] [address] [place], [address] EST GFR - AA 149 mL/min Normal >60 [facility] Comment on above: Result Comment: Afri can [place] GFR Calc Performed By: #### L 500.4050, L100.0100 ####[facility] [address] [place], [address] GAP 6 Normal 5-15 [facility] Comment on above: Performed By: #### L 500.4050, L100.0100 ####[facility] [address] [place], [address] GFR/1.73 sq M.predicted among non-blacks MDRD (S/P/Bld) [Vol rate/Area] 123 mL/min/{1.73_m2} Normal >60 [facility] Comment on above: Result Comment: Non- GFR Calc Performed By: #### L 500.4050, L100.0100 ####[facility] [address] [place], [address] Globulin (S) [Mass/Vol] 4.1 g/dL Normal 2.2-4.2 [facility] Comment on above: Performed By: #### L 500.4050, L100.0100 ####[facility] [address] [place], [address] Glucose [Mass/Vol] 119 mg/dL High 74-106 [facility] Comment on above: Result Comment: Fast ing Glucose result from 100 to 125 mg/dLsuggests IMPAIRED HOMEOSTASIS per A.D.A. criteria. Performed By: #### L 500.4050, L100.0100 ####[facility] [address] [place], [address] Potassium [Moles/Vol] 2.5 mmol/L Invalid Interpretation Code 3.5-5.1 [facility] Comment on above: Result Comment: Crit ical Result(s) Called at: 15:07:50 04/28/2024 by: Mayela Westfall RN (). Results read back bysame. Performed By: #### L 500.4050, L100.0100 ####[facility] [address] [place], [address] Sodium [Moles/Vol] 137 mmol/L Normal 136-145 [facility] Comment on above: Performed By: #### L 500.4050, L100.0100 ####[facility] [address] [place], [address] T PROT 6.2 g/dL Low 6.4-8.2 [facility] Comment on above: Performed By: #### L 500.4050, L100.0100 ####[facility] [address] [place], [address] Urea nitrogen [Mass/Vol] 13 mg/dL Normal 7-18 [facility] Comment on above: Performed By: #### L 500.4050, L100.0100 ####[facility] [address] [place], [address] Emergency Department Summary on 04-28-2024 Emergency Department Summary Normal [facility] Urinalysis, Completeon 04-28 BACTERIA 2+ /hpf Normal None Seen [facility] Comment on above: Order Comment: COLLE CTOR TO SPECIFY Performed By: #### L 400.0001 ####[facility] [address] [place], [address] EPI,SQUAMOUS 0-5 SEEN Normal 0-5 [facility] Comment on above: Order Comment: COLLE CTOR TO SPECIFY Performed By: #### L 400.0001 ####[facility] [address] [place], [address] RBC 10-25 SEEN Normal 0-5 [facility] Comment on above: Order Comment: [facility] CTOR TO SPECIFY Performed By: #### L 400.0001 ####[facility] [address] [place], [address] WBC 25-50 SEEN Normal 0-5 [facility] Comment on above: Order Comment: LOUANN CTOR TO SPECIFY Performed By: #### L 400.0001 ####[facility] [address] [place], [address] Mucus Ql (Urine sed) 0 SEEN Normal [facility] Comment on above: Order Comment: [facility] CTOR TO SPECIFY Performed By: #### L 400.0001 ####[facility] [address] [place], [address] NM BONE SCAN WHOLE BODYon NM BONE SCAN WHOLE BODY [address] [address] Patient: ANDREW POSADA Phone#: : 1965 Age: 58 Gender: M Pt. Type: Out Account: [id number] Location: 052 Ordering: JERYR MATAMOROS Exam Date: 03/11/2024/13:13 Family Phys: Charge Code: [id number] Physician: Foard Order #: [id number] Dose#: PROCEDURE: BONE SCAN WHOLE BODY COMPARISON: None. INDICATIONS: ADENOCARCINOMA POLYP TECHNIQUE: After obtaining the patient's consent, 27.5 millicuries Technetium 99m MDP was injected intravenously. Images were obtained approximately two hours later. PHARMACEUTICAL: Technetium 99m MDP (see dose listed above). FINDINGS: ABNORMALITIES: Mild increase in radiopharmaceutical activity is present at the great toes bilaterally and at joints of the hands bilaterally consistent with degenerative change. OTHER: Negative. CONCLUSION: 1. There are no focal abnormality suggestive of metastatic disease. Dictated by: Kelli Hung MD on 03/11/2024 at 16:45 Approved by: Kelli Hung MD on 03/11/2024 at 16:48 Normal [facility] OPERATIVE PROCEDURESon 02-25 OPERATIVE PROCEDURES [facility] OPERATIVE REPORT NAME ACCOUNT SEX AGE ADMIT DISCHARGE PT MED. RECORD# NUMBER DATE DATE TYPE TIM [id number] Ye 58 02/25/24 02/25/24 2 ANDREW [id number] ROOM: [facility] DATE OF : 1965 DICTATING PHYSICIAN: Jerry Matamoros DATE OF SURGERY: February 25, 2024 SURGEON: Jerry Matamoros MD [employer]: ANESTHESIOLOGIST: Aries Steven CRNA ANESTHETIC: PREOPERATIVE DIAGNOSIS: POSTOPERATIVE DIAGNOSES: 1. Screening colonoscopy. 2. GI bleeding. 3. Hemorrhoids. 4. Colonic mass at 8 cm. 5. Incomplete prep. 6. Partially obstructed bowel. OPERATION PERFORMED: Attempted colonoscopy, biopsies. COMPLICATIONS: ESTIMATED BLOOD LOSS: Minimal. SPECIMEN: 1. Biopsies at 8 to 10 cm, specimens sent to Pathology. 2. Stool sent for Clostridium difficile assay. DISPOSITION: Stable to recovery. INDICATIONS: Andrew Posada is a 58-year-old gentleman with a history of GI bleeding. He also had a history of Clostridium difficile colitis. DESCRIPTION OF OPERATION: After informed consent, he had been brought to the Page 1 of 2 TIM ANDREW Operative Report ANDREW POSADA DOB: 1965 [facility] and placed on a padded gurney in left lateral decubitus position with adequate padding at pressure points. He was given time-out, and verification was done. He was given sedation per Anesthesia with monitoring throughout. Digital examination showed external hemorrhoidal tags, normal tone, and small internal tags. The prostate did not have nodules, but I could feel nodules at the tip of my index finger. The Olympus CF-[id number] flexible endoscope was introduced through the anal verge and carefully advanced protecting the surrounding mucosa. There was lots of stool particles, both solid and liquid, that were partially obstructing the lumen. Careful irrigation and suctioning showed a circumferential almost napkin like ring lesion, which was multilobulated, maroon in color, irregular, and rather firm. I obtained numerous biopsies with the cold grasp forceps standard technique in the area from 8 to 10 cm. The lumen was partially obstructed, and I could not safely pass the scope through this. The scope was carefully withdrawn then with careful irrigation, suctioning, and decompression. The patient tolerated the procedure well. The case will be discussed with the patient when the patient is more awake and alert, and follow-up for pathology will be in the office. He has already had a CAT scan previously. Dictated By: Jerry Matamoros MD 02/25/24 14:56 JOB #: [id number] Transcribed By: am 02/25/24 15:43 Electronically signed by: E-Sign Dr. Jerry Matamoros MD 02/26/24 17:30 Page 2 of 2 ANDREW POSADA Operative Report Normal [facility] C DIFF COMPLETEon 02-25-2024 C DIFF COMPLETE C DIFF COMPLETE 0{ C-DIFF TOXIN _negative__ (NRL: NEGATIVE ) 02/25/24.1508.HEM. C-DIFF AG NEGATIVE INTERNAL NEG QC PASS INTERNAL POS QC PASS EXTERNAL QC DONE? YES INTERPRETATION: POSITIVE Ag,POSITIVE Tox = C. Diff is present & producing toxins POSITIVE Ag,NEGATIVE Tox = C. Diff is present NEGATICE Ag,NEGATICE Tox = C. Diff is not present A low percentage of specimens may test negative for antigen but positive for toxin. A fresh specimen should be resumbitted for retesting. Normal [facility] Comment on above: Performed By: #### 2 [id number] #### [facility],[address] [place] [address] APTTon 11-09-2023 aPTT Coag (Bld) [Time] 26.3 s Normal 25.4 - 38.4 [facility] Comment on above: Performed By: #### 2 10111 #### [facility],[address] [place] [address] CBC + DIFFon 11-09-2023 Baso # 0.00 x10EE3/UL Normal 0.00 - 0.10 [facility] Comment on above: Performed By: #### 2 96624 #### [facility],[address] [place] [address] Basophils/100 WBC (Bld) 0.5 % Normal 0.0 - 2.0 [facility] Comment on above: Performed By: #### 2 [address]662 #### [place] [address] CBC + DIFF Normal [facility] Comment on above: Result Comment: CBC- COMPLETE BLOOD COUNT Performed By: #### 2 97376 #### [place] [address] EO # 0.10 x10EE3/UL Normal 0.00 - 0.50 [facility] Comment on above: Performed By: #### 2 58456 #### [facility],[address] [place] [address] Eosinophils/100 WBC (Bld) 1.1 % Normal 0.0 - 7.0 [facility] Comment on above: Performed By: #### 2 12738 #### [place] [address] Erythrocyte distribution width (RBC) [Ratio] 14.0 % Normal 12.0 - 15.6 [facility] Comment on above: Performed By: #### 2 79908 #### [place] [address] Hematocrit (Bld) [Volume fraction] 41.7 % Normal 40.0 - 52.0 [facility] Comment on above: Performed By: #### 2 04000 #### [facility],[address] [place], [place] [id number] Hemoglobin (Bld) [Mass/Vol] 13.9 g/dL Normal 13.0 - 17.5 [facility] Comment on above: Performed By: #### 2 42298 #### [facility],[address] [place] [address] Lymph # 0.70 x10EE3/UL Low 0.80 - 2.80 [facility] Comment on above: Performed By: #### 2 02692 #### [facility],[address] [place], [place] [id number] Lymphocytes/100 WBC (Bld) 9.5 % Low 20.0 - 45.0 [facility] Comment on above: Performed By: #### 2 29156 #### [facility],[address] [place], [place] [id number] MANUAL DIFF N/A Normal [facility] Comment on above: Performed By: #### 2 37082 #### [facility],[address] [place], [place] [id number] MCH (RBC) [Entitic mass] 31 pg Normal 27 - 33 [facility] Comment on above: Performed By: #### 2 51051 #### [facility],[address] [place], [place] [id number] MCHC 33 X10 3 Normal 32 - 36 [facility] Comment on above: Performed By: #### 2 28952 #### [facility],[address] [place] [address] MCV (RBC) [Entitic vol] 92 fL Normal 81 - 98 [facility] Comment on above: Performed By: #### 2 43856 #### [facility],[address] [place] [address],[place] [address] [place] # 0.50 x10EE3/UL Normal 0.20 - 1.00 [facility] Comment on above: Performed By: #### 2 33560 #### [facility] [facility],[address] [place] [address] 38171 MONOS % 6.3 % Normal 0.0 - 10.0 [facility] Comment on above: Performed By: #### 2 81808 #### [facility],[address] [place] [address] 15983 Morphology Leonard (Bld) [Interp] N/A Normal [facility] Comment on above: Result Comment: {CD] Performed By: #### 2 00181 #### [place] [address] Neut # 6.40 x10EE3/UL Normal 1.50 - 7.10 [facility] Comment on above: Performed By: #### 2 90036 #### [place] [id number] Neutrophils/100 WBC (Bld) 82.6 % High 46.0 - 76.0 [facility] Comment on above: Performed By: #### 2 78438 #### [place] [id number] PLATELET 351 x10EE3/UL Normal 150 - 450 [facility] Comment on above: Performed By: #### 2 51391 #### [facility],[address] [place] [address] Platelet mean volume (Bld) [Entitic vol] 6.6 fL Normal 6.4 - 10.5 [facility] Comment on above: Result Comment: AUTO MATED DIFFERENTIAL Performed By: #### 2 68970 #### [address] [address] RBC 4.56 x 10EE6/UL Normal 4.50 - 6.00 [facility] Comment on above: Performed By: #### 2 78306 #### [facility] [place] [address]289 WBC 7.8 x 10EE3/UL Normal 4.5 - 10.8 [facility] Comment on above: Performed By: #### 2 43891 #### [facility],[address] [place] [address]321 CMP with eGFRon 11-09-2023 AGE 57 years Normal [facility] Comment on above: Performed By: #### 2 63343 #### [facility],[address] [place] [address] 13017 Albumin [Mass/Vol] 3.1 g/dL Low 3.4 - 5.0 [facility] Comment on above: Performed By: #### 2 73213 #### [facility],[address] [place] [address] 61802 Albumin/Globulin [Mass ratio] 0.8 {ratio} Low 0.9 - 1.6 [facility] Comment on above: Performed By: #### 2 13521 #### [facility],[address] [place] [address] 95780 ALK PHOS 91 U/L Normal 46 - 116 [facility] Comment on above: Performed By: #### 2 53232 #### [facility],[address] [place] [address] 82000 ALT [Catalytic activity/Vol] 23 U/L Normal 16 - 63 [facility] Comment on above: Performed By: #### 2 76717 #### [facility],[address] [place] [address] 40256 Anion gap [Moles/Vol] 11 mmol/L Normal 10 - 20 [facility] Comment on above: Performed By: #### 2 50331 #### [facility],[address] [place] [address] 31002 AST [Catalytic activity/Vol] 12 U/L Low 15 - 37 [facility] Comment on above: Performed By: #### 2 11251 #### [facility],[address] [place] [address] 75802 B/C RATIO 15 ratio Normal 0 - 30 [facility] Comment on above: Performed By: #### 2 52946 #### [facility],[address] [place] [address] 90113 Bilirubin [Mass/Vol] 0.8 mg/dL Normal 0.2 - 1.0 [facility] Comment on above: Performed By: #### 2 78465 #### [facility],[address] [place] [address] 51409 Calcium [Mass/Vol] 8.9 mg/dL Normal 8.5 - 10.1 [facility] Comment on above: Performed By: #### 2 09061 #### [facility],[address] [place] [address] 32264 Chloride [Moles/Vol] 102 mmol/L Normal 98 - 107 [facility] Comment on above: Performed By: #### 2 20691 #### [facility],[address] [place] [address] 57197 CMP with eGFR Normal [facility] Comment on above: Result Comment: COMP REHENSIVE METABOLIC PANEL Performed By: #### 2 65725 #### [facility],[address] [place] [address] 72373 CO2 [Moles/Vol] 28.3 mmol/L Normal 21.0 - 32.0 [facility] Comment on above: Performed By: #### 2 24921 #### [facility],[address] [place] [address] 59104 Creatinine [Mass/Vol] 0.87 mg/dL Normal 0.70 - 1.30 [facility] Comment on above: Performed By: #### 2 59392 #### [facility],[address] [place] [address] 04168 GFR/1.73 sq M.predicted among non-blacks MDRD (S/P/Bld) [Vol rate/Area] mL/min/{1.73_m2} Normal 60 - 999 [facility] Comment on above: Performed By: #### 2 47978 #### [address] [address] Result Comment: ACCO RDING TO THE NATIONAL KIDNEY DISEASE EDUCATION PROGRAM(NKDE), A NORMAL eGFR IS A VALUE GREATER THAN OR EQUAL TO 60 ML/MIN/1.73 SQ METERS. CHRONIC KIDNEY DISEASE: <60mL/MIN/1.73 SQ METERS KIDNEY FAILURE: <15mL/MIN/1.73 SQ METERS THIS TEST SHOULD ONLY BE USED FOR PATIENTS 18 YEARS OF AGE AND OLDER. Globulin (S) [Mass/Vol] 3.8 g/dL Normal 1.5 - 3.8 [facility] Comment on above: Performed By: #### 2 52150 #### [address] [address] Glucose [Mass/Vol] 97 mg/dL Normal 74 - 106 [facility] Comment on above: Performed By: #### 2 24682 #### [address] [address] Potassium [Moles/Vol] 3.8 mmol/L Normal 3.5 - 5.1 [facility] Comment on above: Performed By: #### 2 47294 #### [address] [address] Protein [Mass/Vol] 6.9 g/dL Normal 6.4 - 8.2 [facility] Comment on above: Performed By: #### 2 88496 #### [address] [address] Sodium [Moles/Vol] 137 mmol/L Normal 136 - 145 [facility] Comment on above: Performed By: #### 2 00958 #### [address] [address] Urea nitrogen [Mass/Vol] 13 mg/dL Normal 7 - 18 [facility] Comment on above: Performed By: #### 2 14155 #### [facility],[address] [place] [address] ABDOMEN/PELVIS Won 2023 CT ABDOMEN/PELVIS [address] [address] Patient: ANDREW POSADA Phone#: : 1965 Age: 57 Gender: M Pt. Type: ER Account: [id number] Location: [facility] Ordering: STEPHANIE ROUSSEAU Exam Date: 11/09/2023/9:18 Family Phys: Charge Code: [id number] Physician: Foard Order #: [id number] Dose#: 9.8 mGy PROCEDURE: CT ABDOMEN/PELVIS WITH CONTRAST COMPARISON: None. INDICATIONS: Abdominal pain. TECHNIQUE: After obtaining the patient's consent, CT images were created with non-ionic intravenous contrast material. All CT scans at this facility use dose modulation, iterative reconstruction, and/or weight based dosing when appropriate to reduce radiation dose to as low as reasonably achievable. IV CONTRAST: Omnipaque 350,80ml TOTAL DOSE: 9.8 CTDIvol(mGy) FINDINGS: LIVER: Normal. No enlargement, atrophy, abnormal density, or significant focal lesion. BILIARY: Normal. No visible dilatation or calcification. PANCREAS: Normal. No lesion, fluid collection, ductal dilatation, or atrophy. SPLEEN: Normal. No enlargement or focal lesion. KIDNEYS: 9 millimeter hypodense left renal cortical focus. Too small to characterize with certainty. ADRENALS: Normal. No mass or enlargement. AORTA/VASCULAR: Normal. No aneurysm or dissection. RETROPERITONEUM: Normal. No mass or adenopathy. BOWEL/MESENTERY: Large volume stool retention. Under filling versus mucosal thickening at the rectosigmoid colon. ABDOMINAL WALL: Normal. No mass or hernia. URINARY BLADDER: Normal. No visible focal wall thickening, lesion, or calculus. PELVIC NODES: Normal. No adenopathy. PELVIC ORGANS: There is impression on the base of bladder by the prostate prostate measures 6.2 x 4.2 x 5.3 centimeters. BONES: Normal. No bony lesion or fracture. LUNG BASES: Normal. No visible pulmonary or pleural disease. Continued Report - Page 2 of 2 Patient: ANDREW POSADA Phone#: : 1965 Age: 57 Gender: M Pt. Type: ER Account: [id number] Location: 052 Ordering: STEPHANIE ROUSSEAU Exam Date: 11/09/2023/9:18 Family Phys: Charge Code: [id number] Physician: Foard Order #: [id number] Dose#: 9.8 mGy OTHER: Negative. CONCLUSION: 1. Under filling versus mucosal thickening at the rectosigmoid colon. 2. Large volume stool retention. Dictated by: Kelli Hung MD on 11/10/2023 at 9:52 Approved by: Kelli Hung MD on 11/10/2023 at 9:56 Normal [facility] LIPASEon 11-09-2023 Lipase [Catalytic activity/Vol] 45.0 U/L Normal 15.0 - 78.0 [facility] Comment on above: Result Comment: *PLE ASE NOTE THAT RANGES FOR LIPASE HAVE CHANGED OF 10/17/23 DUE TO AN ASSAY UPDATE BY THE MECHANICAL SHOVEL OPERATOR.THE NEW ASSAY RANGE IS 6-250 U/L, WITH A REFERENCE RANGE OF 16-77 U/L. Performed By: #### 2 21730 #### [place] [id number] PROTHROMBIN TIME AND INRon 0 11-09-2023 INR Coag (PPP) [Relative time] 1.0 {INR} Normal 0.8 - 1.2 [facility] Comment on above: Result Comment: T HE HEMOSIL THROMBOPLASTIN REAGENT USED IN THE PROTHROMBIN TIME TEST INTERACTS WITH THE DRUG CUBICIN (DAPTOMYCIN) AND WILL RESULT IN FALSELY ELEVATED PT / INR RESULTS INR INTERPRETATION INR INDICATION PREVENTION AND TREATMENT OF THROMBOEMBOLISM ASSOCIATED WITH: 2.0 - 3.0 ATRIAL FIBRILLATION, BIOPROSTHETIC HEART VALVES, PULMONARY EMBOLISM, VENOUS THROMBOSIS, SYSTEMIC EMBOLISM POST MYOCARDIAL INFARCTION 2.5 - 3.5 MECHANICAL HEART VALVES Performed By: #### 2 34734 #### [facility],[address] [place], [place] [phone] PROTHROMBIN TIME AND INR Normal [facility] Comment on above: Result Comment: PROT HROMBIN TIME AND INR Performed By: #### 2 82714 #### [address] [address] PT-COUMADIN 12.2 sec Normal 9.3 - 14.1 [facility] Comment on above: Performed By: #### 2 18124 #### [address] [address] CRYPTOSPORIDIUM & GIARDIA AG EIA [CCL]on 10-24-2023 CRYPTOSPORIDIUM ANTIGENBY EIA See Below Normal Negative [facility] Comment on above: Result Comment: CRYP TOSPORIDIUM ANTIGEN BY EIA Negative for Cryptosporidium by EIA. GIARDIA ANTIGEN BY EIA Negative for Giardia lamblia by EIA. SOURCE: [employer] [facility] [address] [place] [address] Alan Vasquez III, M.D. [id number] Performed By: #### 2 20598 #### [address] [address] OVA & PARASITE EXAM [CCL]on 10-24-2023 OVA AND PARASITE EXAM See Below Normal [facility] Comment on above: Result Comment: OVA AND PARASITE EXAM No Parasites Seen SOURCE: [employer] [facility] [address] [place] [address] Alan Vasquez III, M.D. [id number] Performed By: #### 2 85540 #### [address] [address] CLOSTRIDIUM DIFFICLE TOXIN P CR [CCL]on 10-23-2023 C difficile PCR Positive Abnormal Negative for C. difficile [facility] Comment on above: Result Comment: A po sitive PCR result may indicate C. difficile infection or colonization. The positive predictive value of this test for C. difficile infection is highest for patients with clinically significant diarrhea (>=3 unformed stools in 24 h) who do not have an alternative explanation (e.g., recent receipt of laxatives). [facility] [employer] [address] [place] [address] Alan Vasquez III, M.D. [id number] Performed By: #### 2 48681 #### [facility],[address] [place], [place] [id number] No Panel Informationon 10-23 Shiga Toxins 1 and 2 See Note Normal [facility] Work Phone: Laboratory - Microbiology an d Antimicrobial susceptibilityon 10-22-2023 Bacteria identified Cx Nom (Bld) See Note Normal [facility] Work Phone: STOOL CULTURE [FADI]on Stool culture STOOL CULTURE [AULTM AN] 10/27/23.1248.DNP.COMPLETE Normal [facility] Comment on above: Performed By: #### 2 81984 ####[facility],[address] [place], [place] [id number] No Panel Informationon 10-21 C difficile PCR Positive Abnormal [facility]. CRYPTOSPORIDIUM ANTIGENBY EIA See Below Normal [facility], [facility] Culture Stool See Note Normal [facility], [facility] OVA AND PARASITE EXAM See Below Normal [facility], [facility] Vital Signs Date Time Vital Sign Value Performing Clinician Faci lity 03-01-2025 13:28-0400 Body temperature 98.5 [degF] No Primary Care Physician [facility] 03-01-2025 13:28-0400 Diastolic blood pressure 98 mm[Hg] No Primary Care Physician [facility] 03-01-2025 13:28-0400 Heart rate 79 /min No Primary Care Physician [facility] 03-01-2025 13:28-0400 Respiratory rate 16 /min No Primary Care Physician [facility] 03-01-2025 13:28-0400 SaO2% (BldA) [Mass fraction] 94 % No Primary Care Physician [facility] 03-01-2025 13:28-0400 Systolic blood pressure 139 mm[Hg] No Primary Care Physician [facility] 03-01-2025 05:34-0400 Body mass index (BMI) [Ratio] 16.4 kg/m2 No Primary Care Physician [facility] 03-01-2025 05:34-0400 Body weight 49.2 kg No Primary Care Physician [facility] 02-28-2025 11:43-0400 Body height 173 cm No Primary Care Physician [facility] 02-25-2025 17:00-0400 Inhaled oxygen flow rate 2 L/min No Primary Care Physician [facility] 02-24-2025 11:34-0400 Body temperature 98.3 [degF] No Primary Care Physician [facility] 02-24-2025 11:34-0400 Diastolic blood pressure 107 mm[Hg] No Primary Care Physician [facility] 02-24-2025 11:34-0400 Heart rate 78 /min No Primary Care Physician [facility] 02-24-2025 11:34-0400 Respiratory rate 16 /min No Primary Care Physician [facility] 02-24-2025 11:34-0400 SaO2% (BldA) [Mass fraction] 96 % No Primary Care Physician [facility] 02-24-2025 11:34-0400 Systolic blood pressure 161 mm[Hg] No Primary Care Physician [facility] 02-24-2025 06:52-0400 Body height 172.72 cm No Primary Care Physician [facility] 02-24-2025 06:52-0400 Body mass index (BMI) [Ratio] 16.1 kg/m2 No Primary Care Physician [facility] 02-24-2025 06:52-0400 Body weight 48.2 kg No Primary Care Physician [facility] 02-22-2025 12:56-0400 Body height 172.7 cm Greg Mason MD Work Phone: [place] 02-22-2025 12:56-0400 Body mass index (BMI) [Ratio] 17.49 kg/m2 Greg Mason MD Work Phone: [place] 02-22-2025 12:56-0400 Body weight 52.16 kg Greg Mason MD Work Phone: [place] 02-22-2025 12:56-0400 Heart rate 75 /min Greg Mason MD Work Phone: [place] 02-22-2025 12:56-0400 SaO2% (BldA) [Mass fraction] 98 % Greg Mason MD Work Phone: [place] 02-14-2025 09:44-0400 Body mass index (BMI) [Ratio] 17.2 kg/m2 No Primary Care Physician [facility] 02-14-2025 09:44-0400 Body temperature 98.8 [degF] No Primary Care Physician [facility] 02-14-2025 09:44-0400 Body weight 51.45 kg No Primary Care Physician [facility] 02-14-2025 09:44-0400 Diastolic blood pressure 82 mm[Hg] No Primary Care Physician [facility] 02-14-2025 09:44-0400 Heart rate 57 /min No Primary Care Physician [facility] 02-14-2025 09:44-0400 Respiratory rate 18 /min No Primary Care Physician [facility] 02-14-2025 09:44-0400 SaO2% (BldA) [Mass fraction] 97 % No Primary Care Physician [facility] 02-14-2025 09:44-0400 Systolic blood pressure 148 mm[Hg] No Primary Care Physician [facility] 02-11-2025 10:26-0400 Body temperature 97.5 [degF] No Primary Care Physician [facility] 02-11-2025 10:26-0400 Diastolic blood pressure 85 mm[Hg] No Primary Care Physician [facility] 02-11-2025 10:26-0400 Heart rate 62 /min No Primary Care Physician [facility] 02-11-2025 10:26-0400 Respiratory rate 16 /min No Primary Care Physician [facility] 02-11-2025 10:26-0400 SaO2% (BldA) [Mass fraction] 98 % No Primary Care Physician [facility] 02-11-2025 10:26-0400 Systolic blood pressure 166 mm[Hg] No Primary Care Physician [facility] 01-31-2025 09:46-0400 Body mass index (BMI) [Ratio] 18.1 kg/m2 No Primary Care Physician [facility] 01-31-2025 09:46-0400 Body temperature 98.6 [degF] No Primary Care Physician [facility] 01-31-2025 09:46-0400 Body weight 53.97 kg No Primary Care Physician [facility] 01-31-2025 09:46-0400 Diastolic blood pressure 76 mm[Hg] No Primary Care Physician [facility] 01-31-2025 09:46-0400 Heart rate 59 /min No Primary Care Physician [facility] 01-31-2025 09:46-0400 Respiratory rate 18 /min No Primary Care Physician [facility] 01-31-2025 09:46-0400 SaO2% (BldA) [Mass fraction] 98 % No Primary Care Physician [facility] 01-31-2025 09:46-0400 Systolic blood pressure 122 mm[Hg] No Primary Care Physician [facility] 01-17-2025 09:26-0400 Body mass index (BMI) [Ratio] 18.1 kg/m2 No Primary Care Physician [facility] 01-17-2025 09:26-0400 Body temperature 98.5 [degF] No Primary Care Physician [facility] 01-17-2025 09:26-0400 Body weight 54.11 kg No Primary Care Physician [facility] 01-17-2025 09:26-0400 Diastolic blood pressure 76 mm[Hg] No Primary Care Physician [facility] 01-17-2025 09:26-0400 Heart rate 61 /min No Primary Care Physician [facility] 01-17-2025 09:26-0400 Respiratory rate 18 /min No Primary Care Physician [facility] 01-17-2025 09:26-0400 SaO2% (BldA) [Mass fraction] 97 % No Primary Care Physician [facility] 01-17-2025 09:26-0400 Systolic blood pressure 121 mm[Hg] No Primary Care Physician [facility] 01-03-2025 09:34-0400 Body mass index (BMI) [Ratio] 18.1 kg/m2 No Primary Care Physician [facility] 01-03-2025 09:34-0400 Body temperature 98.7 [degF] No Primary Care Physician [facility] 01-03-2025 09:34-0400 Body weight 54.06 kg No Primary Care Physician [facility] 01-03-2025 09:34-0400 Diastolic blood pressure 81 mm[Hg] No Primary Care Physician [facility] 01-03-2025 09:34-0400 Heart rate 61 /min No Primary Care Physician [facility] 01-03-2025 09:34-0400 Respiratory rate 18 /min No Primary Care Physician [facility] 01-03-2025 09:34-0400 SaO2% (BldA) [Mass fraction] 95 % No Primary Care Physician [facility] 01-03-2025 09:34-0400 Systolic blood pressure 130 mm[Hg] No Primary Care Physician [facility] 12-28-2024 08:15-0400 Body mass index (BMI) [Ratio] 17.4 kg/m2 No Primary Care Physician [facility] 12-28-2024 08:15-0400 Body temperature 98.9 [degF] No Primary Care Physician [facility] 12-28-2024 08:15-0400 Body weight 51.93 kg No Primary Care Physician [facility] 12-28-2024 08:15-0400 Diastolic blood pressure 82 mm[Hg] No Primary Care Physician [facility] 12-28-2024 08:15-0400 Heart rate 80 /min No Primary Care Physician [facility] 12-28-2024 08:15-0400 Respiratory rate 16 /min No Primary Care Physician [facility] 12-28-2024 08:15-0400 SaO2% (BldA) [Mass fraction] 95 % No Primary Care Physician [facility] 12-28-2024 08:15-0400 Systolic blood pressure 126 mm[Hg] No Primary Care Physician [facility] 12-20-2024 09:16-0500 Body mass index (BMI) [Ratio] 18.7 kg/m2 No Primary Care Physician [facility] 12-20-2024 09:16-0500 Body temperature 98.7 [degF] No Primary Care Physician [facility] 12-20-2024 09:16-0500 Body weight 55.96 kg No Primary Care Physician [facility] 12-20-2024 09:16-0500 Diastolic blood pressure 87 mm[Hg] No Primary Care Physician [facility] 12-20-2024 09:16-0500 Heart rate 60 /min No Primary Care Physician [facility] 12-20-2024 09:16-0500 Respiratory rate 16 /min No Primary Care Physician [facility] 12-20-2024 09:16-0500 SaO2% (BldA) [Mass fraction] 95 % No Primary Care Physician [facility] 12-20-2024 09:16-0500 Systolic blood pressure 147 mm[Hg] No Primary Care Physician [facility] 12-06-2024 09:37-0500 Body mass index (BMI) [Ratio] 18.8 kg/m2 No Primary Care Physician [facility] 12-06-2024 09:37-0500 Body temperature 97.8 [degF] No Primary Care Physician [facility] 12-06-2024 09:37-0500 Body weight 56.24 kg No Primary Care Physician [facility] 12-06-2024 09:37-0500 Diastolic blood pressure 86 mm[Hg] No Primary Care Physician [facility] 12-06-2024 09:37-0500 Heart rate 58 /min No Primary Care Physician [facility] 12-06-2024 09:37-0500 Respiratory rate 16 /min No Primary Care Physician [facility] 12-06-2024 09:37-0500 SaO2% (BldA) [Mass fraction] 97 % No Primary Care Physician [facility] 12-06-2024 09:37-0500 Systolic blood pressure 139 mm[Hg] No Primary Care Physician [facility] 11-22-2024 09:36-0500 Body mass index (BMI) [Ratio] 18.3 kg/m2 No Primary Care Physician [facility] 11-22-2024 09:36-0500 Body temperature 98.2 [degF] No Primary Care Physician [facility] 11-22-2024 09:36-0500 Body weight 54.57 kg No Primary Care Physician [facility] 11-22-2024 09:36-0500 Diastolic blood pressure 84 mm[Hg] No Primary Care Physician [facility] 11-22-2024 09:36-0500 Heart rate 56 /min No Primary Care Physician [facility] 11-22-2024 09:36-0500 Respiratory rate 18 /min No Primary Care Physician [facility] 11-22-2024 09:36-0500 SaO2% (BldA) [Mass fraction] 100 % No Primary Care Physician [facility] 11-22-2024 09:36-0500 Systolic blood pressure 142 mm[Hg] No Primary Care Physician [facility] 11-08-2024 08:26-0500 Body mass index (BMI) [Ratio] 18.3 kg/m2 No Primary Care Physician [facility] 11-08-2024 08:26-0500 Body temperature 98.9 [degF] No Primary Care Physician [facility] 11-08-2024 08:26-0500 Body weight 54.62 kg No Primary Care Physician [facility] 11-08-2024 08:26-0500 Diastolic blood pressure 78 mm[Hg] No Primary Care Physician [facility] 11-08-2024 08:26-0500 Heart rate 64 /min No Primary Care Physician [facility] 11-08-2024 08:26-0500 Respiratory rate 18 /min No Primary Care Physician [facility] 11-08-2024 08:26-0500 SaO2% (BldA) [Mass fraction] 98 % No Primary Care Physician [facility] 11-08-2024 08:26-0500 Systolic blood pressure 132 mm[Hg] No Primary Care Physician [facility] 11-05-2024 09:43-0500 Body mass index (BMI) [Ratio] 18 kg/m2 No Primary Care Physician [facility] 11-05-2024 09:43-0500 Body temperature 97.2 [degF] No Primary Care Physician [facility] 11-05-2024 09:43-0500 Body weight 53.97 kg No Primary Care Physician [facility] 11-05-2024 09:43-0500 Diastolic blood pressure 70 mm[Hg] No Primary Care Physician [facility] 11-05-2024 09:43-0500 Heart rate 62 /min No Primary Care Physician [facility] 11-05-2024 09:43-0500 Respiratory rate 16 /min No Primary Care Physician [facility] 11-05-2024 09:43-0500 SaO2% (BldA) [Mass fraction] 99 % No Primary Care Physician [facility] 11-05-2024 09:43-0500 Systolic blood pressure 128 mm[Hg] No Primary Care Physician [facility] 11-03-2024 08:58-0500 Body mass index (BMI) [Ratio] 17.9 kg/m2 No Primary Care Physician [facility] 11-03-2024 08:58-0500 Body temperature 97.3 [degF] No Primary Care Physician [facility] 11-03-2024 08:58-0500 Body weight 53.6 kg No Primary Care Physician [facility] 11-03-2024 08:58-0500 Diastolic blood pressure 82 mm[Hg] No Primary Care Physician [facility] 11-03-2024 08:58-0500 Heart rate 52 /min No Primary Care Physician [facility] 11-03-2024 08:58-0500 Respiratory rate 16 /min No Primary Care Physician [facility] 11-03-2024 08:58-0500 SaO2% (BldA) [Mass fraction] 100 % No Primary Care Physician [facility] 11-03-2024 08:58-0500 Systolic blood pressure 141 mm[Hg] No Primary Care Physician [facility] 10-29-2024 11:02-0500 Body height 172.7 cm Hilary Lewis MD Work Phone: [place] 10-29-2024 11:02-0500 Body mass index (BMI) [Ratio] 17.33 kg/m2 Hilary Lewis MD Work Phone: [place] 10-29-2024 11:02-0500 Body weight 51.71 kg Hilary Lewis MD Work Phone: [place] 10-29-2024 11:02-0500 Diastolic blood pressure 86 mm[Hg] Hilary Lewis MD Work Phone: [place] 10-29-2024 11:02-0500 Heart rate 58 /min Hilary Lewis MD Work Phone: [place] 10-29-2024 11:02-0500 Systolic blood pressure 129 mm[Hg] Hilary Lewis MD Work Phone: [place] 10-22-2024 14:12-0500 Body height 172.7 cm Greg Mason MD Work Phone: [place] 10-22-2024 14:12-0500 Body mass index (BMI) [Ratio] 17.03 kg/m2 Greg Maosn MD Work Phone: [place] 10-22-2024 14:12-0500 Body weight 50.8 kg Greg Mason MD Work Phone: [place] 10-22-2024 14:12-0500 Heart rate 65 /min Greg Mason MD Work Phone: [place] 10-22-2024 14:12-0500 SaO2% (BldA) [Mass fraction] 99 % Greg Mason MD Work Phone: [place] 10-18-2024 07:28-0500 Body temperature 98.4 [degF] Hilary Lewis MD Work Phone: [place] 10-18-2024 07:28-0500 Diastolic blood pressure 78 mm[Hg] Hilary Lewis MD Work Phone: [place] 10-18-2024 07:28-0500 Heart rate 50 /min Hilary Lewis MD Work Phone: [place] 10-18-2024 07:28-0500 Respiratory rate 14 /min Hilary Lewis MD Work Phone: [place] 10-18-2024 07:28-0500 SaO2% (BldA) [Mass fraction] 97 % Hilary Lewis MD Work Phone: [place] 10-18-2024 07:28-0500 Systolic blood pressure 128 mm[Hg] Hilary Lewis MD Work Phone: [place] 10-11-2024 23:23-0500 Body height 172.7 cm Hilary Lewis MD Work Phone: [place] 10-11-2024 23:23-0500 Body mass index (BMI) [Ratio] 16.48 kg/m2 Hilary Lewis MD Work Phone: [place] 10-11-2024 23:23-0500 Body weight 49.17 kg Hilary Lewis MD Work Phone: [place] 10-06-2024 15:54-0500 Diastolic blood pressure 80 mm[Hg] Shruthi Welch VARIETY PERFORMER-GARMENT TAG STRINGER Work Phone: [place] 10-06-2024 15:54-0500 Heart rate 84 /min Shruthi Welch VARIETY PERFORMER-GARMENT [employer] STRINGER Work Phone: [place] 10-06-2024 15:54-0500 Systolic blood pressure 151 mm[Hg] Shruthi Welch VARIETY PERFORMER-GARMENT TAG STRINGER Work Phone: [place] 10-01-2024 08:46-0500 Body mass index (BMI) [Ratio] 17.2 kg/m2 No Primary Care Physician [facility] 09-01-2024 14:27-0500 Body height 172.7 cm Hilary Lewis MD Work Phone: [place] 09-01-2024 14:27-0500 Body mass index (BMI) [Ratio] 17.49 kg/m2 Hilary Lewis MD Work Phone: [place] 09-01-2024 14:27-0500 Body weight 52.16 kg Hilary Lewis MD Work Phone: 2(037)405-908336 [place] [address] 09-01-2024 14:27-0500 Diastolic blood pressure 70 mm[Hg] Hilary Lewis MD Work Phone: 7(321)510-478236 [place] [address] 09-01-2024 14:27-0500 Heart rate 48 /min Hilary Lewis MD Work Phone: 4(614)002-163036 [place] [address] 09-01-2024 14:27-0500 Systolic blood pressure 117 mm[Hg] Hilary Lewis MD Work Phone: 1(541)252-009736 [place] [address] 06-25-2024 12:20-0400 Diastolic blood pressure 88 mm[Hg] Hilary Lewis MD Work Phone: 7(838)480-741436 [place] [address] 06-25-2024 12:20-0400 Heart rate 58 /min Hilary Lewis MD Work Phone: 3(403)131-822236 [place] [address] 06-25-2024 12:20-0400 Respiratory rate 15 /min Hilary Lewis MD Work Phone: 3(710)101-199236 [place] [address] 06-25-2024 12:20-0400 SaO2% (BldA) [Mass fraction] 96 % Hilary Lewis MD Work Phone: 3(790)634-883536 [place] [address] 06-25-2024 12:20-0400 Systolic blood pressure 126 mm[Hg] Hilary Lewis MD Work Phone: 1(783)237-685136 [place] [address] 06-25-2024 12:07-0400 Body temperature 98.2 [degF] Hilary Lewis MD Work Phone: 5(908)401-194836 [place] [address] 06-25-2024 10:25-0400 Body height 172.7 cm Hilary Lewis MD Work Phone: 7(471)599-141236 [place] [address] 06-25-2024 10:25-0400 Body mass index (BMI) [Ratio] 19.19 kg/m2 Hilary Lewis MD Work Phone: [place] 06-25-2024 10:25-0400 Body weight 57.24 kg Hilary Lewis MD Work Phone: [place] 05-20-2024 13:38-0400 Body height 172.7 cm Hilary Lewis MD Work Phone: 7(389)262-508764 [address] 05-20-2024 13:38-0400 Body mass index (BMI) [Ratio] 18.55 kg/m2 Hilary Lewis MD Work Phone: 7(577)116-676364 [address] 05-20-2024 13:38-0400 Body weight 55.34 kg Hilary Lewis MD Work Phone: 2(823)157-913764 [address] 05-20-2024 13:38-0400 Diastolic blood pressure 72 mm[Hg] Hilary Lewis MD Work Phone: [place] 05-20-2024 13:38-0400 Heart rate 49 /min Hilary Lewis MD Work Phone: 8(274)729-307864 [address] Comment on above: thinks it could be the medication he on, he feels normal 05-20-2024 13:38-0400 Systolic blood pressure 134 mm[Hg] Hilary Lewis MD Work Phone: 9(650)113-525164 [address] 05-20-2024 12:03-0400 Diastolic blood pressure 77 mm[Hg] Hilary Lewis MD Work Phone: 9(934)400-890264 [address] 05-20-2024 12:03-0400 Heart rate 51 /min Hilary Lewis MD Work Phone: [place] 05-20-2024 12:03-0400 Systolic blood pressure 125 mm[Hg] Hilary Lewis MD Work Phone: 5(040)034-466764 [address] 05-12-2024 08:17-0400 Body height 172.7 cm Anjali Denton APRN-GARMENT TAG STRINGER Work Phone: [place] 05-12-2024 08:17-0400 Body mass index (BMI) [Ratio] 17.55 kg/m2 Anjali Denton VARIETY PERFORMER-GARMENT TAG STRINGER Work Phone: [place] 05-12-2024 08:17-0400 Body weight 52.34 kg Anjali Denton VARIETY PERFORMER-GARMENT TAG STRINGER Work Phone: [place] 05-12-2024 08:17-0400 Heart rate 73 /min Anjali Denton APRN-GARMENT [employer] STRINGER Work Phone: [place] 05-12-2024 08:17-0400 SaO2% (BldA) [Mass fraction] 98 % Anjali Denton APRN-GARMENT [employer] STRINGER Work Phone: [place] 05-09-2024 11:24-0400 Body temperature 97.9 [degF] Hilary Lewis MD Work Phone: [place] 05-09-2024 11:24-0400 Diastolic blood pressure 64 mm[Hg] Hilary Lewis MD Work Phone: [place] 05-09-2024 11:24-0400 Heart rate 81 /min Hilary Lewis MD Work Phone: [place] 05-09-2024 11:24-0400 Respiratory rate 16 /min Hilary Lewis MD Work Phone: [place] 05-09-2024 11:24-0400 SaO2% (BldA) [Mass fraction] 97 % Hilary Lewis MD Work Phone: [place] 05-09-2024 11:24-0400 Systolic blood pressure 129 mm[Hg] Hilary Lewis MD Work Phone: [place] 05-03-2024 15:50-0400 Body mass index (BMI) [Ratio] 17.74 kg/m2 Hilary Lewis MD Work Phone: [place] 05-03-2024 15:50-0400 Body weight 52.94 kg Hilary Lewis MD Work Phone: [place] 04-30-2024 14:00-0400 Body height 172.7 cm Hilary Lewis MD Work Phone: [place] 04-30-2024 13:00-0400 Diastolic blood pressure 77 mm[Hg] Kj Martinez MD Work Phone: [place] 04-30-2024 13:00-0400 Heart rate 67 /min Kj Martinez MD Work Phone: 2(271)922-575579 [place] [address] 04-30-2024 13:00-0400 Respiratory rate 21 /min Kj Martinez MD Work Phone: [place] 04-30-2024 13:00-0400 SaO2% (BldA) [Mass fraction] 93 % Kj Martinez MD Work Phone: [place] 04-30-2024 13:00-0400 Systolic blood pressure 142 mm[Hg] Kj Martinez MD Work Phone: [place] 04-29-2024 20:00-0400 Body temperature 99.1 [degF] Kj Martinez MD Work Phone: [place] 04-29-2024 00:06-0400 Body height 172.7 cm Kj Martinez MD Work Phone: [place] 11-26-2023 15:04-0500 Body height 172.72 cm Gregoria Cummings [facility] 11-26-2023 15:04-0500 Body mass index (BMI) [Ratio] 22.2 kg/m2 Gregoria Cummings RN [facility]. 11-26-2023 15:04-0500 Body surface area Derived from formula 1.79 m2 Gregoria Cummings RN [facility] 11-26-2023 15:04-0500 Body temperature 98.2 [degF] Gregoria Cummings RN [facility] Comment on above: Method: Oral 11-26-2023 [id number] Body weight 66.23 kg Gregoria Cummings RN [facility]. 11-26-2023 15:04-0500 Diastolic blood pressure 84 mm[Hg] Gregoria Cummings RN [facility]. Comment on above: Patient Position: Sitting; Cuff Location : Left Arm; Cuff Size: Large 11-26-2023 15:04-0500 Heart rate 56 /min Gregoria Cummings RN [facility]. Comment on above: Pattern: Regular 11-26-2023 15:04-0500 Systolic blood pressure 153 mm[Hg] Gregoria Cummings RN [facility]. Comment on above: Patient Position: Sitting; Cuff Location : Left Arm; Cuff Size: Large 10-17-2023 15:03-0500 Body height 172.72 cm ELLY BENOIT Work Phone: [facility]; [facility] 10-17-2023 15:03-0500 Body mass index (BMI) [Ratio] 22.5 kg/m2 ELLY CASTELLON-Claire Work Phone: [facility] [employer] [facility]. 10-17-2023 15:03-0500 Body surface area Derived from formula 1.8 m2 ELLY MAGDAMAGALISHUSSEINER PASSENGER RATE CLERK-C Work Phone: [facility].; [employer] [facility]. 10-17-2023 15:03-0500 Body temperature 98.3 [degF] ELLY LOVETETTER PASSENGER RATE CLERK-C Work Phone: [facility].; [employer] [facility]. Comment on above: Method: Oral 10-17-2023 15:03-0500 Body weight 67.13 kg ELLY IVANCRUZHUSSEINER PASSENGER RATE CLERK-C Work Phone: [facility] [employer] [facility]. 10-17-2023 15:03-0500 Diastolic blood pressure 100 mm[Hg] ELLY MANARGEINSTETTER PASSENGER RATE CLERK-C Work Phone: [facility] [employer] [facility]. Comment on above: Patient Position: Sitting; Cuff Location : Left Arm; Cuff Size: Large 10-17-2023 15:03-0500 Heart rate 68 /min ELLY BELLAMY PASSENGER RATE CLERK-C Work Phone: [facility]; [employer] [facility]. Comment on above: Pattern: Regular 10-17-2023 15:03-0500 Systolic blood pressure 168 mm[Hg] ELLY LOVETEHUSSEINER PASSENGER RATE CLERK-C Work Phone: [facility] [employer]. Comment on above: Patient Position: Sitting; Cuff Location : Left Arm; Cuff Size: Large Encounters Encounter Date Encounter Type Care Provider Facility Start: 03-10-2025 End: 03-10-2025 ambulatory Kunal Chandler Facility:[facility] Start: 03-06-2025 End: 03-06-2025 Historical Summary ELYL AMNEssen BioScienceTETTER PASSENGER RATE CLERK-C [facility] Start: 03-01-2025 Non-patient / Non-visit Dr. Handy Royal MD [facility] Work Phone: Start: 03-01-2025 Non-patient / Non-visit Rachael Tierney PA-C [facility] Start: 02-28-2025 Non-patient / Non-visit Dr. Handy Royal MD [facility] Work Phone: Start: 02-28-2025 Non-patient / Non-visit Rachael Tierney PA-C [facility] Start: 02-27-2025 Non-patient / Non-visit Dr. Handy Royal MD [facility] Work Phone: Start: 02-27-2025 [facility] Start: 02-26-2025 Non-patient / Non-visit Dr. Handy Royal MD [facility] Work Phone: Start: 02-26-2025 Non-patient / [facility] Start: 02-25-2025 Non-patient / Non-visit Dr. Handy Royal MD [facility] Work Phone: Start: 02-25-2025 Non-patient / [facility] Start: 02-24-2025 Non-patient / Non-visit Dr. Kunal Chandler MD [facility] Start: 02-24-2025 End: 02-24-2025 ambulatory No Primary Care Physician Facility:[facility] Start: 02-24-2025 ambulatory Kunal Chandler Facility [facility] Start: 02-24-2025 End: 03-01-2025 Evaluation and management of inpatient Dr. Handy Royal MD -[facility] 3 Work Phone: Start: 02-22-2025 End: 02-22-2025 Office outpatient visit 25 minutes Greg Mason MD Work Phone: [facility] [place] Comment on above: Ureteral stricture ( Primary Dx) Start: 02-22-2025 ambulatory SELF SELF Facility:[facility] Start: 02-16-2025 ambulatory No Primary Car e Physician Facility:[facility] Start: 02-16-[address] Guy Ho MD -[facility] Start: 02-14-2025 End: 02-14-[address] Guy Ho MD -[facility] Work Phone: Start: 02-14-2025 End: 02-14-2025 ambulatory No Primary Care Physician Facility:[facility] Start: 01-31-2025 End: 01-31-[address] Guy Ho MD -[facility] Work Phone: Start: 01-31-2025 End: 01-31-2025 ambulatory No Primary Care Physician Facility:[facility] Start: 01-17-2025 End: 01-17-[address] Guy Ho MD -[facility] Work Phone: Start: 01-17-2025 End: 01-17-2025 ambulatory No Primary Care Physician Facility:[facility] Start: 01-03-2025 End: 01-03-[address] Guy Ho MD -[facility] Work Phone: Start: 01-03-2025 End: 01-03-2025 ambulatory No Primary Care Physician Facility:[facility] Start: 12-28-2024 End: 12-28-2024 Patient encounter procedure Rubi NGUYEN -[facility] Work Phone: Start: 12-28-2024 End: 12-28-2024 ambulatory No Primary Care Physician Facility:[facility] Start: 12-20-2024 End: 12-20-[address] Rangel Connor MD [facility] Work Phone: Start: 12-20-2024 End: 12-20-2024 ambulatory Rangel Connor Facility:[facility] Start: 12-08-2024 End: 12-09-2024 Historical Summary ELLY BENOIT [facility] Start: 12-08-2024 Review ELLY MURPHYP-C [facility] Start: 12-06-2024 End: 12-06-[address] Rangel Connor MD -[facility] Work Phone: Start: 12-06-2024 End: 12-06-2024 ambulatory Rangel Connor Facility:[facility] Start: 11-22-2024 End: 11-22-2024 Patient encounter procedure Rubi NGUYEN [facility] Work Phone: Start: 11-22-2024 End: 11-22-2024 ambulatory No Primary Care Physician Facility:[facility] Start: 11-12-2024 End: 11-12-2024 ambulatory INTERVENTIONAL RAD AILEENISSCHEDDEVI Facility:[facility] Start: 11-10-2024 ambulatory Enrique Eugeneori [facility] Start: 11-10-2024 Non-patient / Non-visit Dr. Enrique Romero MD -[facility] Start: 11-10-2024 End: 11-10-[address] Enrique Romero MD -Cardiovascular Services Work Phone: Start: 11-10-2024 End: 11-10-2024 ambulatory Enrique Eugeneori Facility:[facility] Start: 11-08-2024 ambulatory Enrique Nick Facility[facility] Start: 11-08-2024 Non-patient / Non-visit Dr. Enrique Romero MD -[facility] Work Phone: Start: 11-08-2024 End: 11-08-[address] Enrique Romero MD -Pulmonary Services/Neurology Work Phone: Start: 11-08-2024 End: 11-08-[address] Guy Ho MD -[facility] Work Phone: Start: 11-08-2024 End: 11-08-2024 ambulatory No Primary Care Physician Facility:[facility] Start: 11-08-2024 End: 11-08-[address] [facility] Facility:[facility] Start: 11-05-2024 End: 11-05-[address] Enrique Romero MD -[facility] Work Phone: Start: 11-05-2024 End: 11-05-2024 ambulatory No Primary Care Physician Facility:[facility] Start: 11-03-2024 End: 11-03-2024 Patient encounter procedure Rubi Mercedes RN ORTHOPEDIC-C -[facility] Work Phone: Start: 11-03-2024 End: 11-03-2024 ambulatory No Primary Care Physician Facility:[facility] Start: 10-29-2024 End: 10-29-2024 Office outpatient visit 15 minutes Hilary Lewis MD Work Phone: [facility] Comment on above: Malignant neoplasm o f rectum (Primary Dx) Start: 10-29-2024 ambulatory SELF SELF Facility:[facility] Start: 10-22-2024 End: 10-22-2024 Office outpatient visit 25 minutes Greg Mason MD Work Phone: [facility] [place] Comment on above: 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); Ureteral stricture Start: 10-22-2024 ambulatory GREG MASON Facility: [facility] Start: 10-11-2024 End: 10-18-2024 Evaluation and management of inpatient Hilary Lewis MD Work Phone: [phone] Comment on above: Dehydration Start: 10-11-2024 End: 10-11-2024 Emergency department patient visit No Primary Care Physician Facility:[facility] Start: 10-11-2024 End: 10-11-2024 ambulatory Elly Bellamy NP Facility:[facility] Start: 10-06-2024 ambulatory SELF SELF Facility:[facility] Start: 10-06-2024 End: 10-06-2024 Subsequent hospital visit by physician Shruthi KOVACS Work Phone: [facility] Comment on above: Arrived Start: 09-27-2024 End: 09-27-2024 ambulatory Elly Bellamy NP Facility:[facility] Start: 09-13-2024 End: 09-13-2024 ambulatory Elly Hofstetter RN ORTHOPEDIC Facility:[facility] Start: 09-01-2024 End: 09-30-2024 Office outpatient visit 15 minutes Hilary Lewis MD Work Phone: [facility] Comment on above: Malignant neoplasm o f rectum (Primary Dx) Start: 09-01-2024 ambulatory SELF SELF Facility:[facility] Start: 08-17-2024 End: 08-17-2024 ambulatory Ambrose Leija Facility:[facility] Start: 08-16-2024 End: 08-16-2024 ambulatory Elly Hoargenistetter RN ORTHOPEDIC Facility:[facility] Start: 08-11-2024 End: 08-11-2024 ambulatory Ambrose Leija Facility:[facility] Start: 08-09-2024 End: 08-09-2024 ambulatory Elly Hofstetter RN ORTHOPEDIC Facility:[facility] Start: 08-04-2024 End: 08-04-2024 ambulatory Ambrose Leija Facility:[facility] Start: 08-02-2024 End: 08-02-2024 ambulatory Guy Ho Facility:[facility] Start: 07-28-2024 End: 07-28-2024 ambulatory Ambrose Leija Facility:[facility] Start: 07-26-2024 End: 07-26-2024 ambulatory Elly Hofstetter RN ORTHOPEDIC Facility:[facility] Start: 07-21-2024 End: 07-21-2024 ambulatory Elly Hofstetter RN ORTHOPEDIC Facility:[facility] Start: 07-19-2024 End: 07-19-2024 ambulatory Elly Hofstetter RN ORTHOPEDIC Facility:[facility] Start: 07-15-2024 ambulatory Elly Hofstetter RN ORTHOPEDIC F acility:[facility] Start: 07-15-2024 End: 07-15-2024 ambulatory Elly Hofstetter RN ORTHOPEDIC Facility:[facility] Start: 07-14-2024 End: 07-14-2024 ambulatory Ambrose Leija Facility:[facility] Start: 07-13-2024 End: 07-13-2024 ambulatory Kunal Chandler Facility[facility] Start: 07-12-2024 End: 07-12-2024 ambulatory No Primary Care Physician Facility:[facility] Start: 07-08-2024 ambulatory Ambrose Leija Facility: [facility] Start: 07-06-2024 End: 07-06-2024 ambulatory Guy Ho Facility:[facility] Start: 06-30-2024 ambulatory Ambrose Kent Facility: [facility] Start: 06-29-2024 End: 06-29-2024 ambulatory No Primary Care Physician Facility:[facility] Start: 06-25-2024 End: 06-25-2024 ambulatory HILARY LEWIS Facility:[facility] Start: 06-25-2024 End: 06-25-2024 Subsequent hospital visit by physician Hilary Lewis MD Work Phone: [facility] Comment on above: Malignant neoplasm o f rectum Start: 06-24-2024 End: 06-24-2024 ambulatory No Primary Care Physician Facility:[facility] Start: 06-22-2024 ambulatory SELF SELF Facility:[facility] Start: 06-22-2024 Encounter for other preprocedural examination SELF SELF Facility:[facility] Start: 06-09-2024 End: 06-09-2024 ambulatory No Primary Care Physician Facility:[facility] Start: 06-08-2024 ambulatory No Primary Car e Physician Facility:[facility] Start: 05-26-2024 ambulatory HILARY LEWIS Facility :[facility] Start: 05-20-2024 End: 06-18-2024 Office outpatient visit 25 minutes Hilary Lewis MD Work Phone: [facility] Comment on above: Malignant neoplasm o f rectum (Primary Dx) Start: 05-20-2024 ambulatory SELF SELF Facility:[facility] Start: 05-20-2024 ambulatory HILARY LEWIS Facility :[facility] Start: 05-20-2024 End: 05-20-2024 Subsequent hospital visit by physician Hilary Lewis MD Work Phone: [facility] Comment on above: Arrived Start: 05-12-2024 ambulatory ANJALI DENTON Facil ity:[facility] Start: 05-12-2024 End: 05-12-2024 Office outpatient new 45 minutes Anjali Denton VARIETY PERFORMER-GARMENT TAG STRINGER Work Phone: [facility] [place] Comment on above: Urinary retention (P rimary Dx) Start: 04-30-2024 End: 05-09-2024 Evaluation and management of inpatient Hilary Lewis MD Work Phone: [email or web address] Comment on above: Colon cancer Start: 04-29-2024 ambulatory SELF SELF Facility:[facility] Start: 04-28-2024 End: 04-30-2024 Emergency department patient visit Kj Martinez MD Work Phone: [facility] Emergency Department Start: 04-28-2024 End: 04-28-2024 Emergency department patient visit No Primary Care Physician Facility:[facility] Start: 03-18-2024 End: 03-18-2024 Historical Summary ELLY BELLAMY PASSENGER RATE CLERK-C Work Phone: [employer] [facility] [employer] Start: 03-11-2024 End: 03-11-2024 ambulatory [facility] [place] Start: 02-25-2024 End: 02-25-2024 ambulatory [facility] [place] Start: 11-28-2023 Review ELLY CAMARGO PASSENGER RATE CLERK-C Work Phone: [email or web address]. Start: 11-26-2023 End: 11-26-2023 Office outpatient visit 10 minutes ELLY BELLAMY PASSENGER RATE CLERK-C Work Phone: Interview [facility] [employer] [facility] [employer]. Start: 11-09-2023 End: 11-09-2023 Emergency department patient visit STEPHANIE ROUSSEAU [facility] Start: 11-05-2023 End: 11-05-2023 Medication Refill/Order ELLY DAWSONER PASSENGER RATE CLERK-C Work Phone: [email or web address] [facility] [employer]. Start: 10-23-2023 End: 10-23-2023 Medication Refill/Order ELLY LOVETETTER PASSENGER RATE CLERK-C Work Phone: [employer]. Start: 10-22-2023 End: 10-22-2023 ambulatory [facility] Start: 10-17-2023 End: 10-17-2023 Office outpatient visit 10 minutes ELLY BELLAMY CY Work Phone: [facility] Procedures Date Procedure Procedure Detail Performing Clinician Start: 03-01-2025 Estimated creatinine clearance No Primary Care Physician Start: 02-25-2025 Plain X-ray abdomen No Primary Care Physician Start: 02-25-2025 Laparoscopy No Primary Care Physician Start: 02-25-2025 Small bowel series No P rimary Care Physician Start: 02-24-2025 Urnls dip stick/tabl et reagent auto microscopy No Primary Care Physician Start: 02-24-2025 Plain X-ray abdomen No Primary Care Physician Start: 02-24-2025 Estimated creatinine clearance No Primary Care Physician Start: 02-24-2025 Serum inorganic phos phate measurement No Primary Care Physician Start: 02-24-2025 CT of abdomen and pe lvis with oral contrast No Primary Care Physician Start: 02-14-2025 Urine culture No Primar y Care Physician Start: 02-14-2025 Urnls dip stick/tabl et reagent auto microscopy No Primary Care Physician Start: 02-14-2025 Estimated creatinine clearance No Primary Care Physician Start: 01-03-2025 X-ray of chest, PA a nd lateral views No Primary Care Physician Start: 01-03-2025 Percentage plasma cell count No Primary Care Physician Start: 12-28-2024 Urine culture No Primar y Care Physician Start: 12-06-2024 Measurement of renal function No Primary Care Physician Comment on above: GFR Calc Start: 11-22-2024 Urine culture No Primar y Care Physician Start: 10-18-2024 Assay of magnesium Eladio jeffrey Jasso MD Work Phone: Start: 10-17-2024 CARDIAC RHYTHM Other Ot her OT Start: 10-17-2024 Blood count hematocrit Kori Cuellar MD Work Phone: Start: 10-17-2024 Antibody screen Hilary zelaya MD Work Phone: Start: 10-17-2024 Antibody screen HILARY ZELAYA Comment on above: Performed By: #### U [id number] #### [facility] ([facility]) [address] [place] [address] Start: 10-17-2024 Blood typing serologic abo Kori Cuellar MD Work Phone: Start: 10-17-2024 PREPARE TO TRANSFUSE RED BLOOD CELLS Kori Cuellar MD Work Phone: Start: 10-17-2024 Assay of magnesium Eladio Jasso MD Work Phone: Start: 10-16-2024 Glucose measurement, blood Hilary Lewis MD Work Phone: Start: 10-16-2024 Potassium serum plas ma/whole blood Kori Cuellar MD Work Phone: Start: 10-16-2024 Assay of magnesium Eladio Jasso MD Work Phone: Start: 10-15-2024 Ecg routine ecg w/le ast 12 lds trcg only w/o i&r Kori Cuellar MD Work Phone: Start: 10-15-2024 Assay of magnesium Eladio Jasso MD Work Phone: Start: 10-14-2024 Radiologic exam abdo men 1 view Anselmo Lindsey MD Work Phone: Start: 10-14-2024 Radiologic exam abdo men 1 view Anselmo Lindsey MD Work Phone: Start: 10-14-2024 Assay of magnesium Eladio Jasso MD Work Phone: Start: 10-13-2024 Assay of magnesium Vishal Lindsey MD Work Phone: Start: 10-13-2024 Assay of magnesium Eladio Jasso MD Work Phone: Start: 10-12-2024 Plmt nephrostomy cat h prq new access rs&i Reginald Khoury MD Work Phone: Start: 10-12-2024 GENERAL PROCEDURE Miguel A Holloway MD Work Phone: Start: 10-12-2024 Creatinine blood Miguel A Holloway MD Work Phone: Start: 10-12-2024 Radiologic exam abdo men 1 view Anselmo Lindsey MD Work Phone: Start: 10-12-2024 Radiologic exam abdo men 1 view Anselmo Lindsey MD Work Phone: Start: 10-12-2024 Culture bacterial bl ood aerobic w/id isolates Anselmo Lindsey MD Work Phone: Start: 10-12-2024 Radiologic exam abdo men 1 view Kevan Jasso MD Work Phone: Start: 10-12-2024 Antibody screen Hilary zelaya MD Work Phone: Start: 10-12-2024 ABORH TYPE RECONFIRMATION Susie Lanier DO Work Phone: Start: 10-12-2024 Prothrombin time Robert Stiles MD Work Phone: Start: 10-12-2024 Culture bct isol&prs mptv id isolate ea urine Kevan Jasso MD Work Phone: Start: 10-12-2024 EXTRA MICRO Kevan Jasso MD Work Phone: Start: 10-12-2024 URINALYSIS REFLEX TO CULTURE Kevan Jasso MD Work Phone: Start: 10-12-2024 Antibody screen HILARY ZELAYA Comment on above: Performed By: #### X M #### [facility] ([facility]) [address] [place] [id number] Start: 10-12-2024 End: 10-12-2024 Assay of magnesium Kevan azul MD Work Phone: Start: 10-12-2024 Blood typing serologic abo Keavn Jasso MD Work Phone: Start: 10-12-2024 CBC AND ELECTRONIC DIFF Kevan Jasso MD Work Phone: Start: 10-12-2024 Complete blood count with white cell differential, automated Kevan Jasso MD Work Phone: Start: 10-12-2024 Radiologic exam ches t single view Kevan Jasso MD Work Phone: Start: 09-27-2024 Total iron binding c apacity measurement No Primary Care Physician Start: 09-13-2024 Folic acid measurement No Primary Care Physician Start: 07-06-2024 Positron emission to mography with computed tomography No Primary Care Physician Start: 05-09-2024 Electrolyte panel Gabriele Fleipe MD Work Phone: Start: 05-08-2024 Creatinine blood Gabriele Felipe MD Work Phone: Start: 05-07-2024 GENERAL PROCEDURE Catherine Delatorre MD Work Phone: Start: 05-07-2024 Smr prim src gram/gi emsa stain bct fungi/cell Jon Tapia MD Work Phone: Start: 05-07-2024 SEDATION/PROCEDURES MONITORING FLOWSHEET Other Other Start: 05-07-2024 Creatinine blood Gabriele Felipe MD Work Phone: Start: 05-06-2024 Blood count complete automated Shruthi Reese MD Work Phone: Start: 05-06-2024 Glucose quantitative blood xcpt reagent strip Gabriele Felipe MD Work Phone: Start: 05-05-2024 Ct abdomen & pelvis w/contrast material Gabriele Felipe MD Work Phone: Start: 05-05-2024 Assay of magnesium Meenakshi Tariq MD Work Phone: Start: 05-04-2024 Glucose quantitative blood xcpt reagent strip Gabriele Felipe MD Work Phone: Start: 05-04-2024 Assay of magnesium Meenakshi Tariq MD Work Phone: Start: 05-03-2024 Assay of magnesium Meenakshi Tariq MD Work Phone: Start: 05-02-2024 Electrolyte panel Maksim Tariq MD Work Phone: Start: 05-02-2024 Assay of magnesium Meenakshi Tariq MD Work Phone: Start: 05-01-2024 Electrolyte panel Maksim Tariq MD Work Phone: Start: 05-01-2024 Electrolyte panel Maksim Tariq MD Work Phone: Start: 05-01-2024 CONTINUOUS CARDIAC MONITORING STRIP Other Other Start: 05-01-2024 Creatinine blood Suzan Tariq MD Work Phone: Start: 05-01-2024 Assay of magnesium Meenakshi Tariq MD Work Phone: Start: 04-30-2024 Electrolyte panel Maksim Tariq MD Work Phone: Start: 04-30-2024 Img-guide fluid mary xn drainag cath periton perq Catherine Delatorre MD Work Phone: Start: 04-30-2024 Smr prim src gram/gi emsa stain bct fungi/cell Jon Tapia MD Work Phone: Start: 04-30-2024 Creatinine blood Suzan Tariq MD Work Phone: Start: 04-30-2024 Assay of magnesium Meenakshi Tariq MD Work Phone: Start: 04-29-2024 Creatinine blood Suzan Tariq MD Work Phone: Start: 04-29-2024 Ct abdomen & pelvis w/contrast material Marcia Vasquez MD Work Phone: Start: 04-29-2024 End: 04-29-2024 Carcinoembryonic antigen cea Anne Marie shell MD Work Phone: Start: 04-29-2024 Smr prim src gram/gi emsa stain bct fungi/cell Marcia Vasquez MD Work Phone: Start: 04-29-2024 Culture bacterial bl ood aerobic w/id isolates Marcia Vasquez MD Work Phone: Start: 04-29-2024 Blood gases any comb ination ph pco2 po2 co2 hco3 Kj Martinez MD Work Phone: Start: 04-29-2024 CBC AND ELECTRONIC DIFF Kj Martinez MD Work Phone: Start: 04-29-2024 Complete blood count with white cell differential, automated Kj Martinez MD Work Phone: Start: 04-29-2024 GOLD TOP TUBE Daniel Martinez MD Work Phone: Start: 04-29-2024 Hepatic function panel Anne Marie Tariq MD Work Phone: Start: 04-29-2024 LAVENDER TOP TUBE Chago Martinez MD Work Phone: Start: 04-29-2024 LT BLUE TOP TUBE Vinny Martinez MD Work Phone: Start: 04-29-2024 MINT GREEN TOP TUBE Chr istopher Capri Martinez MD Work Phone: Start: 04-29-2024 Prothrombin time Martell Vasquez MD Work Phone: Start: 04-29-2024 RAINBOW DRAW Finesse Martinez MD Work Phone: Start: 11-26-2023 End: 11-26-2023 Dischrg meds reconciled w/current med list ELLY BELLAMY PASSENGER RATE CLERK-C Work Phone: colostomy 03/2024 Randall PENNY MD Work Phone: Comment on above: [place]; invasive mod erately differentiated adeno colostomy 03/2024 Randall PENNY MD Work Phone: Comment on above: [place]; 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) Plan of Treatment Date Care Activity Detail Author Start: 06-20-2025 Influenza vaccination INFLUENZA VACCINE (Season Ended) [place] Start: 04-04-2025 End: 04-04-2025 Patient encounter procedure [facility] Start: 03-01-2025 Patient discharge [facility] Start: 02-26-2025 [facility] Start: 02-26-2025 [facility] Start: 02-26-2025 [facility] Start: 02-25-2025 Consultation for treatment [facility] Start: 02-24-2025 Venous catheter care management [facility] Start: 02-24-2025 Assessment of risk of venous thromboembolism [facility] Start: 02-24-2025 Insertion of catheter into peripheral vein [facility] Start: 02-24-2025 Measuring intake and output [facility] Start: 02-24-2025 Providing care according to standard [facility] Start: 02-24-2025 Referral to general surgeon [facility] Start: 02-24-2025 Referral to occupational therapist [facility] Start: 02-24-2025 Referral to service [facility] Start: 02-24-2025 [facility] Start: 02-24-2025 Serum inorganic phosphate measurement [facility] Start: 02-24-2025 Admission procedure [facility] Start: 02-24-2025 Hospital admission, emergency, from emergency room, medical nature [facility] Start: 02-24-2025 [facility] Start: 02-24-2025 Patient referral to dietitian [facility] Start: 02-24-2025 [facility] Start: 02-14-2025 Vital signs measurements [facility] Start: 02-01-2025 End: 02-01-2025 Patient encounter procedure 02/01/2025 2:20 PM EDT Office Visit [facility] [address] [facility] [address] [place] [address] Greg Mason MD [address] [place] [address] [address] [place] [address] [facility] Start: 01-31-2025 Vital signs measurements [facility] Start: 01-17-2025 Vital signs measurements [facility] Start: 01-03-2025 Vital signs measurements [facility] Start: 12-20-2024 Vital signs measurements [facility] Start: 12-06-2024 Vital signs measurements [facility] Start: 11-22-2024 Vital signs measurements [facility] Start: 11-08-2024 Vital signs measurements [facility] Start: 11-05-2024 Evaluation of diagnostic study results [facility] Start: 11-03-2024 Patient referral [facility] Work Phone: Start: 10-29-2024 End: 10-29-2025 Flexible sigmoidoscopy FLEXIBLE SIGMOIDOSCOPY GI/Bronch Routine Malignant neoplasm of rectum Expected: 10/29/2024, Expires: 10/29/2025 [place] Comment on above: Expected: 10/29/2024, Expires: Start: 10-29-2024 End: 10-29-2024 Patient encounter procedure 10/29/2024 11:30 AM EST Office Visit [facility] [address] [place] [address] Hilary Lewis MD [address] [facility] [address] [place] [address] [facility] Start: 10-25-2024 End: 10-18-2025 Cardiac event recording EVENT MONITOR, CARDIAC ECG Routine Hydronephrosis, unspecified hydronephrosis type Malignant neoplasm of colon, unspecified part of colon Expected: 10/25/2024 (Approximate), Expires: 10/18/2025 [place] Work Phone: Comment on above: Expected: 10/25/2024 (Approximate), Expi res: 10/18/2025 Start: 10-22-2024 End: 10-22-2024 Patient encounter procedure 10/22/2024 2:20 PM EST Office Visit [facility] [address] [place] [phone] Greg Mason MD [address] [facility] [address] [place] [address] [facility] Start: 10-21-2024 End: 10-21-2024 Telemedicine consultation with patient 10/21/2024 2:00 PM EST Telemedicine [facility] [address] [place] [phone] Hilary Lewis MD [address] [place] [phone] [facility] Start: 10-06-2024 Subsequent hospital visit by physician 10/06/2024 4:20 PM EST Hospital Encounter Imaging at [facility] [address] [place] [phone] Shruthi Welch, VARIETY PERFORMER-ELIAS [address] [place] [address] Imaging at [facility] Start: 09-28-2024 Administration of blood product [facility] Start: 09-28-2024 [facility] Start: 09-01-2024 End: 09-01-2024 Patient encounter procedure 09/01/2024 2:30 PM EST Office Visit [facility] [address] [place] [phone] Hilary Lewis MD [address] [place] [phone] [facility] Start: 09-01-2024 End: 09-01-2025 MR Pelvis WO and W contrast IV MRI RECTUM WITHOUT AND WITH CONTRAST Imaging Routine Malignant neoplasm of rectum Expected: 09/01/2024, Expires: 09/01/2025 [facility] Comment on above: Expected: 09/01/2024, Expires: Start: 08-09-2024 End: 08-09-2024 Patient encounter procedure 08/09/2024 9:15 AM EDT Appointment [facility] [address] [facility] [address] [place] [address] Hilary Lewis MD [address] [place] [address] [facility] Start: 07-26-2024 Venous catheter care management [facility] Start: 06-25-2024 End: 06-25-2024 Admission to same day surgery center 06/25/2024 12:06 PM EDT - 06/25/2024 12:38 PM EDT [facility] [address] [place] [phone] Hilary Lewis MD [address] [place] [phone] SIGMOIDOSCOPY DIAGNOSTIC [facility] Comment on above: SIGMOIDOSCOPY DIAGNOSTIC Start: 06-25-2024 End: 06-25-2024 Sigmoidoscopy flx dx w/collj spec br/wa if pfrmd [facility] Start: 06-25-2024 Subsequent hospital visit by physician 06/25/2024 10:00 AM EDT Hospital Encounter [facility] [address] [place] [phone] Hilary Lewis MD [address] [place] [phone] Malignant neoplasm of rectum [facility] Comment on above: Malignant neoplasm of rectum Start: 06-22-2024 End: 06-22-2024 ambulatory 06/22/2024 10:00 AM EDT Pre-Operative Nurse Assessment Telehealth Pre Procedure Preparation [address] [place] [address] Bonnie Nicolas, FERNANDO Telehealth Pre Procedure Preparation Start: 06-20-2024 COVID-19 VACCINE ( season) COVID-19 VACCINE () [place] Start: 06-20-2024 COVID-19 VACCINE () COVID-19 VACCINE () [place] Start: 06-20-2024 Influenza vaccination INFLUENZA VACCINE (#1) [facility] Start: 05-20-2024 End: 05-04-2025 CT Abdomen and Pelvis W contrast IV [place] Work Phone: Comment on above: Expected: 05/20/2024 (Approximate), Expi res: 05/04/2025 1 Occurrences starti ng 05/20/2024 until 05/20/2024 Start: 05-20-2024 End: 05-20-2024 Patient encounter procedure 05/20/2024 1:45 PM EDT Office Visit [facility] [address] [facility] [address] [place] [address] Hilary Leiws MD [address] [place] [address] [facility] Start: 05-20-2024 End: 05-20-2024 Patient encounter procedure [facility] Start: 05-12-2024 End: 05-12-2024 Clinical Support Encounter 05/12/2024 8:00 AM EDT Clinical Support Encounter [facility] [address] [facility] [address] [place] [address] Anjali Denton, VARIETY PERFORMER-GARMENT TAG STRINGER [address] [facility] [address] [place] [phone] [facility] Start: 10-17-2023 Cul bact stool aerobic isol salmonella&shigell STOOL-ROSANGELA CULTURE (11993) Start: 17-Oct-2023 15:58 Request Tang Song.; eigital [facility] [email or web address]. Start: 10-17-2023 Ova&parasites direct smears concentration & id OVA & PARASITE DIR SMEAR ([id number]) Start: 17-Oct-2023 15:58 Request Tang Song.; [employer] [facility] [employer]. Start: 10-17-2023 Iaad ia cryptosporidium CRYPTOSPORIDUM/GIARDI, INFCT ANTIGEN (42559) Start: 17-Oct-2023 15:58 Request Tang Song.; eigital [facility] [email or web address]. Start: 10-17-2023 Iaad ia clostridium difficile toxin C DIFF TOXIN A+B, EIA (39394) Start: 17-Oct-2023 15:58 Request Tang Song.; eig[employer] [facility] [email or web address]. Start: 06-20-2023 COVID-19 VACCINE ( season) COVID-19 VACCINE ( season) [place] Start: 2020 Prostate specific antigen measurement PROSTATE CANCER SCREENING DISCUSSION [place] Start: 12-31-2015 Pneumococcal vaccination PNEUMOCOCCAL VACCINE SERIES (1 of 1 - PCV) [place] Start: 12-31-2015 Prostate specific antigen measurement PROSTATE CANCER SCREENING DISCUSSION [place] Start: 12-31-2015 Zoster vaccine hzv live for subcutaneous use ZOSTER (SHINGLES) VACCINE (1 of 2) [place] Start: 2010 Screening for malignant neoplasm of colon COLORECTAL CANCER SCREENING DISCUSSION [place] Start: 2005 Lipid panel LIPID SCREENING [place] Start: 1984 Hepatitis B vaccination HEP B VACCINE (1 of 3 - 19+ 3-dose series) [place] Start: 1984 Third diphtheria, tetanus and acellular pertussis (DTaP) vaccination TDAP (ADULT) [place] Start: 1980 HIV screening HIV SCREENING DISCUSSION [facility] Start: 1965 Hepatitis C screening HEPATITIS C VIRUS SCREENING [place] Start: 1965 Tetanus vaccination TETANUS [place] End: 04-29-2024 Bacteria identified in Blood by Culture BLOOD CULTURE Microbiology Routine One Time for 1 Occurrences starting 04/29/2024 until 04/29/2024 [place] Work Phone: Comment on above: One Time for 1 Occurrences starting 04/19 until 04/29/2024 Bacteria identified in Blood by Culture BLOOD CULTURE Microbiology Routine 04/29/2024 1:11 AM EDT [place] Bacteria identified in Unspecified specimen by Culture BACTERIAL CULTURE AND DIRECT SMEAR, LESION, TISSUE, DEVICE Microbiology STAT 04/29/2024 3:46 AM EDT [place] Bldr irrigation smpl lavage &/instlj AK BLDR IRRIGATION SMPL LAVAGE &/INSTLJ AK Charge Routine Urinary retention Ordered: 05/12/2024 [place] Comment on above: Ordered: 05/12/2024 CASE REQUEST DEPARTM ENT USE ONLY INTERVENTIONAL RADIOLOGY CASE REQUEST DEPARTMENT USE ONLY INTERVENTIONAL RADIOLOGY Procedures Routine Hydronephrosis, unspecified hydronephrosis type Malignant neoplasm of colon, unspecified part of colon Ordered: 10/14/2024 [place] Comment on above: Ordered: 10/14/2024 End: 05-06-2024 DRAINAGE BY CATHETER PERITONEAL/RETROPERITON EAL PERCUTANEOUS W/ IMAGIN [place] Work Phone: Comment on above: One Time for 1 Occurrences starting 04/19 until 05/06/2024 Exchange nephrostomy catheter prq w/img gid rs&i EXCHANGE NEPHROSTOMY CATHETER PERCUTANEOUS W/ IMAGE GUIDANCE Hydronephrosis, unspecified hydronephrosis type Malignant neoplasm of colon, unspecified part of colon [facility] Exchange nephrostomy catheter prq w/img gid rs&i EXCHANGE NEPHROSTOMY CATHETER PERCUTANEOUS W/ IMAGE GUIDANCE Ureteral stricture [facility] Jesus post-voiding residual urine&/bladder cap AK JESUS POST-VOIDING RESIDUAL URINE&/BLADDER CAP AK Charge Routine Urinary retention Ordered: 05/12/2024 [place] Comment on above: Ordered: 05/12/2024 End: 10-06-2024 MR Pelvis WO and W contrast IV [place] Comment on above: 1 Occurrences starting 10/06/2024 until 10/06/2024 End: 05-05-2024 ORDERS (SCANNED) ORDERS (SCANNED) Procedures One Time for 1 Occurrences starting 05/05/2024 until 05/05/2024 [place] Comment on above: One Time for 1 Occurrences starting 04/19 until 05/05/2024 Patient referral [facility] Work Phone: AK REMOVE CISNEROS CATHETER AK REMOVE CISNEROS CATHETER AK - OFFICE PERFORMED Routine Urinary retention Ordered: 05/12/2024 [place] Comment on above: Ordered: 05/12/2024 SURG PATH REQUEST [place] Comment on above: Release Upon Ordering for 1 Occurrences starting 06/25/2024, 1 completed Transfusion of packe d red blood cells TRANSFUSE RED BLOOD CELLS Nursing Routine 10/17/2024 6:57 AM EST [place] Payers Date Payer Category Payer Unknown [id number] 2024 Unknown [id number] 2024 Self-pay 2022 Unknown [id number] 2022 Unknown [id number] 2022 Unknown [id number] Unknown [id number] 2.16.8 40.1.802533.3.579.2.651 1965 Unknown [id number] 2.16.8 40.1.151167.3.579.2.651 1965 Unknown [id number] 2.16.8 40.1.822746.3.579.2.651 1965 Unknown [id number] 2.16. 840.1.015487.3.579.2.594 1965 Unknown [id number] 2.16. 840.1.165761.3.579.2.594 1965 Unknown [id number] 2.16. 840.1.082664.3.579.2.594 1965 Unknown [id number] 2.16. 840.1.495981.3.579.2.594 1965 Unknown [id number] 2.16. 840.1.892731.3.579.2.594 1965 Unknown [id number] 2.16. 840.1.992264.3.579.2.594 Unknown [id number] 2.16.8 40.1.141531.3.579.2.462 Unknown [id number] 2.16.8 40.1.464547.3.579.2.462 Unknown [id number] 2.16.8 40.1.175136.3.579.2.462 Unknown [id number] 2.16.8 40.1.186524.3.579.2.462 Unknown [id number] 2.16.8 40.1.645110.3.579.2.462 Unknown [id number] 2.16.8 40.1.010155.3.579.2.462 Unknown [id number] 2.16.8 40.1.482212.3.579.2.462 Unknown [id number] 2.16.8 40.1.771558.3.579.2.462 Unknown [id number] 2.16.8 40.1.854836.3.579.2.462 Unknown [id number] 2.16.8 40.1.271362.3.579.2.462 Unknown [id number] 2.16.8 40.1.339985.3.579.2.462 Unknown [id number] 2.16.8 40.1.759892.3.579.2.462 Unknown [id number] 2.16.8 40.1.294019.3.579.2.462 Unknown [id number] 2.16.8 40.1.852134.3.579.2.462 Unknown [id number] 2.16.8 40.1.974852.3.579.2.462 Unknown [id number] 2.16.8 40.1.700997.3.579.2.462 Unknown [id number] 2.16.8 40.1.592983.3.579.2.462 Unknown [id number] 2.16.8 40.1.522208.3.579.2.462 Unknown [id number] 2.16.8 40.1.511672.3.579.2.462 Unknown [id number] 2.16.8 40.1.611905.3.579.2.462 Unknown [id number] 2.16.8 40.1.163193.3.579.2.462 Unknown [id number] 2.16.8 40.1.075974.3.579.2.462 Unknown [id number] 2.16.8 40.1.772602.3.579.2.462 Unknown [id number] 2.16.8 40.1.766405.3.579.2.462 Unknown [id number] 2.16.8 40.1.092581.3.579.2.462 Unknown [id number] 2.16.8 40.1.527899.3.579.2.462 Unknown [id number] 2.16.8 40.1.793505.3.579.2.462 Unknown [id number] 2.16.8 40.1.742546.3.579.2.462 Unknown [id number] 2.16.8 40.1.875184.3.579.2.462 Unknown [id number] 2.16.8 40.1.329234.3.579.2.462 Unknown [id number] 2.16.8 40.1.202868.3.579.2.462 Unknown [id number] 2.16.8 40.1.674265.3.579.2.462 Unknown [id number] 2.16.8 40.1.607363.3.579.2.462 Unknown [id number] 2.16.8 40.1.002004.3.579.2.462 Unknown [id number] 2.16.8 40.1.172259.3.579.2.462 Unknown [id number] 2.16.8 40.1.546192.3.579.2.462 Unknown [id number] 2.16.8 40.1.316533.3.579.2.462 Unknown [id number] 2.16.8 40.1.305519.3.579.2.462 Unknown [id number] 2.16.8 40.1.228475.3.579.2.462 Unknown [id number] 2.16.8 40.1.887362.3.579.2.462 Unknown [id number] 2.16.8 40.1.547619.3.579.2.462 Unknown [id number] 2.16.8 40.1.333842.3.579.2.462 Unknown [id number] 2.16.8 40.1.144387.3.579.2.462 Unknown [id number] 2.16.8 40.1.986947.3.579.2.462 Unknown [id number] 2.16.8 40.1.426081.3.579.2.462 Unknown [id number] 2.16.8 40.1.117148.3.579.2.462 Unknown [id number] 2.16.8 40.1.563214.3.579.2.462 Unknown [id number] 2.16.8 40.1.382126.3.579.2.462 Unknown [id number] 2.16.8 40.1.697072.3.579.2.462 Unknown [id number] 2.16.8 40.1.560461.3.579.2.462 Unknown [id number] 2.16.8 40.1.290959.3.579.2.462 Unknown [id number] 2.16.8 40.1.393535.3.579.2.462 Unknown [id number] 2.16.8 40.1.830415.3.579.2.462 Unknown [id number] 2.16.8 40.1.466565.3.579.2.462 Unknown [id number] 2.16.8 40.1.038677.3.579.2.462 Unknown [id number] 2.16.8 40.1.728384.3.579.2.462 Unknown [id number] 2.16.8 40.1.427879.3.579.2.462 Unknown [id number] 2.16.8 40.1.601139.3.579.2.462 Unknown [id number] 2.16.8 40.1.404495.3.579.2.462 Social History Date Type Detail Facility Alcohol Use: Alcohol Use: ; N o [facility] Start: 04-29-2024 End: 10-14-2024 Most Recent Primary Occupation Most Recent [facility]ation [facility]; [facility] [employer] [facility] Tobacco use: Tobacco use: ; N ever smoker. [employer] [facility]; [facility] [employer] [facility] Start: 1965 Male [facility] Start: 04-29-2024 End: 02-24-2025 Never smoked tobacco [place] Start: 04-29-2024 Tobacco use and exposure Smokeless tobacco non-user [place] Start: 04-29-2024 End: 02-22-2025 Alcoholic beverage intake Ex-drinker (finding) [place] Start: 04-29-2024 End: 10-14-2024 Tobacco use panel [place] Start: 1965 Sex assigned at Not on file O [facility] Has the electric, ga s, oil, or water company threatened to shut off services in your home in past 12Mo No [place] How often to you hav e a drink containing alcohol? Never [place] How many standard drinks containing alcohol do you have on a typical day? Patient does not drink [place] (I/We) worried [facility] (my/our) food would run out before (I/we) got money to buy more. Never true [place] Start: 03-12-2024 Sex Male (finding) [facility] Procedure Code Equipment Code Equipment Origin al Text Equipment Identifier Dates Insertion, vascular access port ([id number]) Vascular port/catheter ([id number] FDA Start: 07-15-2024 Goals Date Patient Goal Desired Activity /State Personal health goal Functional Status Date Assessment Result Facility 03-01-2025 Functional status [facility] Work Phone: 10-11-2024 Are you deaf, or do you have serious difficulty hearing No 10/11/2024 11:23 PM Lakia Chavez, FERNANDO [facility] 10-11-2024 Are you blind, or do you have serious difficulty seeing, even when wearing glasses No 10/11/2024 11:23 PM Lakia Chavez, FERNANDO No [place] 10-11-2024 Do you have serious difficulty walking or climbing stairs No 10/11/2024 11:23 PM Lakia Chavez, RN No [place] 10-11-2024 Do you have difficul ty dressing or bathing No 10/11/2024 11:23 PM Lakia Chavez, RN [facility] 10-11-2024 Because of a physica l, mental, or emotional condition, do you have difficulty doing errands alone such as visiting a physician's office or shopping No 10/11/2024 11:23 PM Lakia Chavez, FERNANDO No [place] Mental Status Date Assessment Result Facility 03-01-2025 Cognitive function Voice/Name [facility] Work Phone: 02-24-2025 Cognitive function Level Of Cons ciousness Awake;Alert;Appropriate;Fol lows Commands [facility] Work Phone: 10-11-2024 Because of a physica l, mental, or emotional condition, do you have serious difficulty concentrating, remembering, or making decisions No 10/11/2024 11:23 PM Lakia Chavez, FERNANDO No [place] 10-07-2024 Cognitive function Awake;Alert;A ppropriate;Fol lows Commands [facility] Work Phone: 10-01-2024 Cognitive function Arousable To Voice/Nam e [facility] Work Phone: Clinical Notes 04-28-2024 to 03-01-2025 Note Date & Type Note Facility 03-01-2025 Discharge summary [facility] 03-01-2025 Discharge summary [facility] 03-01-2025 Note [facility] 03-01-2025 Discharge summary Note Date/Time March 01, 2025 9:28a m [facility] Medical Records Department [address] [place] [address] Instructions for Home/Discharge Instructions 03/01/25 0900 MR#: [id number] Acct: [id number] Name: ANDREW POSADA Rep #:[id number] : 1965 59 From: Rachael LOWERY PA-C PCP: WENDY Gonzalez Status:A DM IN Discharge Instructions Diet Discharge Diet: - (Transitional soft, food diet) DC O2, CPAP, BIPAP needs Home O2 Discharge instructions: No Dressing / Incision Discharge Activity: May Shower Lifting Restrictions: No lifting greater than 10 pounds for 4 weeks Dressing / Incision Call your doctor if your incision/area has: Continuous Slow Oozing, Sudden Increased Bleeding, Increased Pain/ Swelling, Increased Redness, Foul Smelling Discharge and Swelling at the incision site Call your doctor if you observe: Fever of 101 or Higher Suture Line Care: Avoid Pulling/Pushing and Avoid Pinching/Bending Remove Dressing in: 1 day (Remove large silver dressing tomorrow and leave open to air) Cleanse incision/area with: Soap & Water Follow Up Care Please Follow Up With: Kunal Chandler MD When: Your appointment is scheduled for 03/10 at 9:[address] Chandler. Please arrive 15 minutes early. Please contact our office at [phone], option #4 for a nurse if you have any questions following discharge. Test Results: Test results from this visit will be discussed in further detail at your follow-up appointment, if applicable. Discharge Plan Admission Admit Date/Time: 02/24/25 11:29 Primary Reason for Your Visit: Small bowel obstruction Attending Provider: Handy Royal Primary Care Provider: Elly Bellamy NP Consulting Providers: Kunal Chandler Instructions Additional Instructions / Restrictions: Your follow-up appointment is scheduled for 03/10 at 9:[address] Chandler. Please arrive 15 minutes early. Please contact our office at [phone], option #4 for a nurse if you have any questions following discharge. Bring ostomy supplies with you to your follow-up. Below is an example of foods to continue eating at discharge. You may increase diet to regular food after 3 days from discharge date. If you have any questions, please contact our office. Transitional Diet Beverages: ? Soda (cola, diet cola, lemon-craig, diet lemon-craig, garrett duane, diet garrett duane) ? Tea (hot or iced) ? Milk (low-fat, 2%, lactose free) ? Coffee ? Juice (without pulp) ? Oral Nutrition supplement Breakfast: ? Hot cereal (oatmeal or cream of wheat) ? Scrambled eggs ? Blueberry muffin ? Cold cereal (no whole grain cereals) ? [place] (white) Lunch or Dinner: Deli Items: Hot Items: [place] sandwich Roast [place] Tuna salad (sandwich or alone) Macaroni & Cheese Egg salad (sandwich or alone) Mashed potatoes & gravy Chicken salad (sandwich or alone) Carrots Green beans Cold Sides: Soups: Cottage cheese Vegetable soup Yogurt Chicken noodle Hardboiled egg Dessert: ? Gelatin, pudding Discharge Orders/Prescriptions Prescriptions: Continued ondansetron 8 mg tablet,disintegrating 8 mg PO Q8H PRN (Reason: nausea and vomiting) Qty: 30 2RF Discontinued senna 8.6 mg capsule 8.6 mg PO QHS PRN (Reason: constipation) Referrals / Follow Up: Care Physician,No Primary [Non-Staff] - Elly Bellamy NP, RN ORTHOPEDIC-C [Primary Care Provider] - Kunal Chandler MD [Med Staff - Active Staff] - 03/10/25 9:45 am Disposition Disposition (needs filled in before D/C Order can be placed): Home, Self Care 03/01/25927<Electronically signed by Rachael LOWERY PA-C>Rachael LOWERY PA-C CC: WENDY Bellamy; Dr. Kunal Chandler MD ~ Signed [facility] Work Phone: 1(888) 985-929805-13-2025 Progress note Author [facility] Note Date/Time March 01, 2025 8:59a m [facility] Medical Records Department [address] [place] [address] Progress Note - Surgery 03/01/25 0834 MR#: [id number] Acct: [id number] Name: ANDREW POSADA Rep #:[id number] : 1965 59 From: Rachael LOWERY PA-C PCP: WENDY Gonzalez Status:A DM IN Location: MS3 [id number] Subjective Subjective Patient is evaluated resting comfortably in bed. He notes output seems high again. He denies any nausea, vomiting with diet. He is tolerating transitional diet well. Objective Data Objective Data Vital Signs: Vital Signs Temp Pulse Resp BP Pulse Ox O2 Del Method O2 Flow Rate 97.6 F L 70 18 144/93 H 98 Room Air 2 03/01/25 04:08 03/01/25 04:08 03/01/25 04:08 03/01/25 04:08 03/01/25 04:08 03/01/25 04:11 02/25/25 17:00 Oxygen Flow Rate (L/min) 2 Oxygen Delivery Method Room Air Weight: 108 lb 7.479 oz Body Mass Index (BMI) 16.4 Intake & Output: Intake and Output for Last 24 Hours 02/27/25 02/28/25 03/01/25 23:59 23:59 23:59 Intake Total 3509.29 / 3509.29 1810 / 1810 300 / 300 Output Total 2075 / 2075 2650 / 2650 800 / 800 Balance 1434.29 / 1434.29 -840 / -840 -500 / -500 Medical Nutrition Assessment Dietitian: Malnutrition Criteria Met Start: 02/25/25 11:58 Freq: Status: Active Protocol: Document 02/28/25 11:51 SLA (Rec: 02/28/25 11:51 SLA [id number]) Nutrition Malnutrition Evidence of Yes Malnutrition Exists Malnutrition (severe Chronic ): Evidenced By Suboptimal Energy Intake (Severe),Weight Loss (Severe), Physical Changes (Severe) Clinical Problem Chronic Disease or Condition Related Malnutrition Etiology related to GI dysfunction and cancer causing inadequate energy intake Signs/Symptoms as evidenced by 23% unintended wt loss and 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 5 Status Active Problem Recommendation Dietitian Continue Transitional with goal of regular diet d/t Recommendations/ signs and symptoms of malnutrition Changes Order ensure plus high protein tid w/ meals for increased nutrition if consumed - prefers chocolate flavor Lab / Micro Data 03/01/25 04:25 03/01/25 04:25 Labs: Laboratory Results - last 24 hr 02/28/25 11:19: POC Glucose 119 H 02/28/25 17:42: POC Glucose 94 03/01/25 04:25: WBC 2.5 L, RBC 2.78 L, Hgb 9.5 L, Hct 27.7 L, MCV 99.6 H, MCH 34.2 H, MCHC 34.3, RDW Std Deviation 54.9 H, RDW Coeff of Rosalee 15.0 H, Plt Count 86 L, MPV 9.7, Immature Gran % (Auto) 1.200 H, Neut % (Auto) 46.6 L, Lymph % (Auto) 22.3, Rawlins % (Auto) 25.5 H, Eos % (Auto) 4.0, Baso % (Auto) 0.4, AbsoluteNeuts (auto) 1.2 L, Absolute Lymphs (auto) 0.55 L, Nucleated RBC % 0, Differential Comment SCANNED, Platelet Estimate MOD DEC, RBC Morphology NORM C+C, Sodium 135, Potassium 3.5, Chloride 101, Carbon Dioxide 26.7, Anion Gap 7, BUN 13, Creatinine 1.03, Estim Creat Clear Calc 53.85, Est GFR (MDRD) Non-Af 84,BUN/Creatinine Ratio 12.6, Glucose 97, Calcium 8.5 Physical Exam GI GI Narrative: Abdomen- soft, slight tenderness at the incision site otherwise nontender. Silver dressing intact. Colostomy with no output in the stoma bag. Jejunostomy with bilious fluid within the stoma bag. Stoma site appears pink and healthy with some stool sediment over top of the stoma site. Assessment & Plan Assessment/Plan (1) SBO (small bowel obstruction): PLAN: Plan I am following this patient in conjunction with Dr. Chandler. He will independentlyevaluate this patient. Labs reviewed. Sofia will discuss ostomy appliance options Patient is progressing well from a surgical standpoint He may be discharged today on a transitional diet He will need to follow-up in [address] Chandler for re-evaluation and stapleremoval Ready for discharge Charges/Coding Visit Charges Inpatient E&M: 22235 Subs Hosp L1 (post-op) 03/01/25 0859 <Electronically signed by Rachael LOWERY PA-C> Cosigner Signature (if applicable): CC: ~ Signed [facility] Work Phone: 1(527) 362-495205-13-2025 Discharge summary Author Handy Royal [facility] Note Date/Time March 01, 2025 12:45 pm [facility] Medical Records Department [address] [place] [address] Instructions for Home/Discharge Instructions 03/01/25 0841 MR#: [id number] Acct: [id number] Name: ANDREW POSADA Rep #:[id number] : 1965 59 From: Handy Harris PCP: WENDY Gonzalez Status:A DM IN Discharge Instructions Diet Discharge Diet: - (Transitional soft, food diet) DC O2, CPAP, BIPAP needs Home O2 Discharge instructions: No Dressing / Incision Call your doctor if your incision/area has: Continuous Slow Oozing, Sudden Increased Bleeding, Increased Pain/ Swelling, Increased Redness, Foul Smelling Discharge and Swelling at the incision site Call your doctor if you observe: Fever of 101 or Higher Suture Line Care: Avoid Pulling/Pushing and Avoid Pinching/Bending Cleanse incision/area with: Soap & Water Follow Up Care Please Follow Up With: Kunal Chandler MD Test Results: Test results from this visit will be discussed in further detail at your follow- up appointment, if applicable. Discharge Plan Admission Admit Date/Time: 02/24/25 11:29 Primary Reason for Your Visit: Small bowel obstruction status post jejunostomy/ileostomy. Has BL nephrost Attending Provider: Handy Royal Primary Care Provider: Elly Bellamy NP Consulting Providers: Kunal Chandler Instructions Additional Instructions / Restrictions: Your follow-up appointment is scheduled for 03/10 at 9:[address] Chandler. Please arrive 15 minutes early. Please contact our office at [phone], option #4 for a nurse if you have any questions following discharge. Bring ostomy supplies with you to your follow-up. Below is an example of foods to continue eating at discharge. You may increase diet to regular food after 3 days from discharge date. If you have any questions, please contact our office. Transitional Diet Beverages: ? Soda (cola, diet cola, lemon-craig, diet lemon-craig, garrett duane, diet garrett duane) ? Tea (hot or iced) ? Milk (low-fat, 2%, lactose free) ? Coffee ? Juice (without pulp) ? Oral Nutrition supplement Breakfast: ? Hot cereal (oatmeal or cream of wheat) ? Scrambled eggs ? Blueberry muffin ? Cold cereal (no whole grain cereals) ? [place] (white) Lunch or Dinner: Deli Items: Hot Items: [place] sandwich Roast [place] Tuna salad (sandwich or alone) Macaroni & Cheese Egg salad (sandwich or alone) Mashed potatoes & gravy Chicken salad (sandwich or alone) Carrots Green beans Cold Sides: Soups: Cottage cheese Vegetable soup Yogurt Chicken noodle Hardboiled egg Dessert: ? Gelatin, pudding Discharge Orders/Prescriptions Prescriptions: New pantoprazole 40 mg Tablet,Delayed Release (Dr/Ec) 40 mg PO DAILY 30 Days Qty: 30 0RF potassium chloride 20 mEq tablet extended release 20 meq PO DAILY 14 Days Qty: 14 0RF Continued ondansetron 8 mg tablet,disintegrating 8 mg PO Q8H PRN (Reason: nausea and vomiting) Qty: 30 2RF Discontinued senna 8.6 mg capsule 8.6 mg PO QHS PRN (Reason: constipation) Referrals / Follow Up: Kunal Chandler MD [Med Staff - Active Staff] - 03/10/25 9:45 am Care Physician,No Primary [Non-Staff] - Elly Bellamy NP RN ORTHOPEDIC-C [Primary Care Provider] - Disposition Disposition (needs filled in before D/C Order can be placed): Home, Self Care 03/01/25 1245<Electronically signed by Handy Royal MD>Handy Royal MD CC: RN ORTHOPEDIC-C Elly Bellamy; Dr. Kunal Chandler MD ~ Signed [facility] Work Phone: 1(256) 684-901705-13-2025 Discharge summary [facility] Medical Records Department [address] [place] [address] Instructions for Home/Discharge Instructions 03/01/25 0900 MR#: [id number] Acct: [id number] Name: ANDREW POSADA Rep #:[id number] : 1965 59 From: Rachael LOWERY PA-C PCP: WENDY Gonzalez Status:A DM IN Discharge Instructions Diet Discharge Diet: - (Transitional soft, food diet) DC O2, CPAP, BIPAP needs Home O2 Discharge instructions: No Dressing / Incision Discharge Activity: May Shower Lifting Restrictions: No lifting greater than 10 pounds for 4 weeks Dressing / Incision Call your doctor if your incision/area has: Continuous Slow Oozing, Sudden Increased Bleeding, Increased Pain/ Swelling, Increased Redness, Foul Smelling Discharge and Swelling at the incision site Call your doctor if you observe: Fever of 101 or Higher Suture Line Care: Avoid Pulling/Pushing and Avoid Pinching/Bending Remove Dressing in: 1 day (Remove large silver dressing tomorrow and leave open to air) Cleanse incision/area with: Soap & Water Follow Up Care Please Follow Up With: Kunal Chandler MD When: Your appointment is scheduled for 03/10 at 9:[address] Chandler. Please arrive 15 minutes early. Please contact our office at [phone], option #4 for a nurse if you have any questions following discharge. Test Results: Test results from this visit will be discussed in further detail at your follow- up appointment, if applicable. Discharge Plan Admission Admit Date/Time: 02/24/25 11:29 Primary Reason for Your Visit: Small bowel obstruction Attending Provider: Handy Royal Primary Care Provider: Elly Bellamy NP Consulting Providers: Kunal Chandler Instructions Additional Instructions / Restrictions: Your follow-up appointment is scheduled for 03/10 at 9:[address] Chandler. Please arrive 15 minutes early. Please contact our office at [phone], option #4 for a nurse if you have any questions following discharge. Bring ostomy supplies with you to your follow-up. Below is an example of foods to continue eating at discharge. You may increase diet to regular foodafter 3 days from discharge date. If you have any questions, please contact our office. Transitional Diet Beverages: ? Soda (cola, diet cola, lemon-craig, diet lemon-craig, garrett duane, diet garrett duane) ? Tea (hot or iced) ? Milk (low-fat, 2%, lactose free) ? Coffee ? Juice (without pulp) ? Oral Nutrition supplement Breakfast: ? Hot cereal (oatmeal or cream of wheat) ? Scrambled eggs ? Blueberry muffin ? Cold cereal (no whole grain cereals) ? [place] (white) Lunch or Dinner: Deli Items: Hot Items: [place] sandwich Roast [place] Tuna salad (sandwich or alone) Macaroni & Cheese Egg salad (sandwich or alone) Mashed potatoes & gravy Chicken salad (sandwich or alone) Carrots Green beans Cold Sides: Soups: Cottage cheese Vegetable soup Yogurt Chicken noodle Hardboiled egg Dessert: ? Gelatin, pudding Discharge Orders/Prescriptions Prescriptions: Continued ondansetron 8 mg tablet,disintegrating 8 mg PO Q8H PRN (Reason: nausea and vomiting) Qty: 30 2RF Discontinued senna 8.6 mg capsule 8.6 mg PO QHS PRN (Reason: constipation) Referrals / Follow Up: Care Physician,No Primary [Non-Staff] - Elly Bellamy NP, RN ORTHOPEDIC-C [Primary Care Provider] - Kunal Chandler MD [Med Staff - Active Staff] - 03/10/25 9:45 am Disposition Disposition (needs filled in before D/C Order can be placed): Home, Self Care 03/01/25 0928Amanda Niall LOWERY PA-C CC: STEPHENC Elly Bellamy; Dr. Kunal Chandler MD ~ Signed [facility]05-13-2025 Progress note [facility] Medical Records Department [address] [facility] [place] [address] Progress Note - Surgery 03/01/25 0834 MR#: [id number] Acct: [id number] Name: ANDREW POSADA Rep #:[id number] : 1965 59 From: Rachael LOWERY PA-C PCP: WENDY Gonzalez Status:A DM IN Location: MA3 [id number] Subjective Subjective Patient is evaluated resting comfortably in bed. He notes output seems high again. He denies any nausea, vomiting with diet. He is tolerating transitional diet well. Objective Data Objective Data Vital Signs: Vital Signs Temp Pulse Resp BP Pulse Ox O2 Del Method O2 Flow Rate 97.6 F L 70 18 144/93 H 98 Room Air 2 03/01/25 04:08 03/01/25 04:08 03/01/25 04:08 03/01/25 04:08 03/01/25 04:08 03/01/25 04:11 02/25/25 17:00 Oxygen Flow Rate (L/min) 2 Oxygen Delivery Method Room Air Weight: 108 lb 7.479 oz Body Mass Index (BMI) 16.4 Intake & Output: Intake and Output for Last 24 Hours 02/27/25 02/28/25 03/01/25 23:59 23:59 23:59 Intake Total 3509.29 / 3509.29 1810 / 1810 300 / 300 Output Total 2074 / 2074 2650 / 2650 800 / 800 Balance 1434.29 / 1434.29 -840 / -840 -500 / -500 Medical Nutrition Assessment Dietitian: Malnutrition Criteria Met Start: 02/25/25 11:58 Freq: Status: Active Protocol: Document 02/28/25 11:51 SLA (Rec: 02/28/25 11:51 SLA 10.10.25.7) Nutrition Malnutrition Evidence of Yes Malnutrition Exists Malnutrition (severe Chronic ): Evidenced By Suboptimal Energy Intake (Severe),Weight Loss (Severe), Physical Changes (Severe) Clinical Problem Chronic Disease or Condition Related Malnutrition Etiology related to GI dysfunction and cancer causing inadequate energy intake Signs/Symptoms as evidenced by 23% unintended wt loss and 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 5 Status Active Problem Recommendation Dietitian Continue Transitional with goal of regular diet d/t Recommendations/ signs and symptoms of malnutrition Changes Order ensure plus high protein tid w/ meals for increased nutrition if consumed - prefers chocolate flavor Lab / Micro Data 03/01/25 04:25 03/01/25 04:25 Labs: Laboratory Results - last 24 hr 02/28/25 11:19: POC Glucose 119 H 02/28/25 17:42: POC Glucose 94 03/01/25 04:25: WBC 2.5 L, RBC 2.78 L, Hgb 9.5 L, Hct 27.7 L, MCV 99.6 H, MCH 34.2 H, MCHC 34.3, RDW Std Deviation 54.9 H, RDW Coeff of Rosalee 15.0 H, Plt Count 86 L, MPV 9.7, Immature Gran % (Auto) 1.200 H, Neut % (Auto) 46.6 L, Lymph % (Auto) 22.3, [place] % (Auto) 25.5 H, Eos % (Auto) 4.0, Baso % (Auto) 0.4, AbsoluteNeuts (auto) 1.2 L, Absolute Lymphs (auto) 0.55 L, Nucleated RBC % 0, Differential Comment SCANNED, Platelet Estimate MOD DEC, RBC Morphology NORM C+C, Sodium 135, Potassium 3.5, Chloride 101, Carbon Dioxide 26.7, Anion Gap 7, BUN 13, Creatinine 1.03, Estim Creat Clear Calc 53.85, Est GFR (MDRD) Non-Af 84,BUN/Creatinine Ratio 12.6, Glucose 97, Calcium 8.5 Physical Exam GI GI Narrative: Abdomen- soft, slight tenderness at the incision site otherwise nontender. Silver dressing intact. Colostomy with no output in the stoma bag. Jejunostomy with bilious fluid within the stoma bag. Stoma site appears pink and healthy with some stool sediment over top of the stoma site. Assessment & Plan Assessment/Plan (1) SBO (small bowel obstruction): PLAN: Plan I am following this patient in conjunction with Dr. Chandler. He will independentlyevaluate this patient. Labs reviewed. Sofia will discuss ostomy appliance options Patient is progressing well from a surgical standpoint He may be discharged today on a transitional diet He will need to follow-up in [address] Chandler for re-evaluation and stapleremoval Ready for discharge Charges/Coding Visit Charges Inpatient E&M: 48029 Subs Hosp L1 (post-op) 03/01/25 0859 Cosigner Signature (if applicable): CC: ~ Signed [facility]05-12-2025 Progress note Author Rachael Tierney [facility] Note Date/Time February 28, 2025 4:50p m [facility] Medical Records Department [address] [place] [address] Progress Note - Surgery 02/28/25 0727 MR#: [id number] Acct: [id number] Name: ANDREW POSADA Rep #:[id number] : 1965 59 From: Rachael LOWERY PA-C PCP: WENDY Gonzalez Status:A DM IN Location: MS3 [id number] Subjective Subjective Patient evaluated resting comfortably in bed. He denies any abdominal pain/discomfort at rest. He notes his ileostomy output has decreased to become more manageable. He denies any nausea, vomiting, fever. He is tolerating full liquids. Objective Data Objective Data Vital Signs: Vital Signs Temp Pulse Resp BP Pulse Ox O2 Del Method O2 Flow Rate 98.2 F 64 18 163/95 H 97 Room Air 2 02/28/25 05:55 02/28/25 05:55 02/28/25 05:55 02/28/25 05:55 02/28/25 05:55 02/28/25 05:58 02/25/25 17:00 Oxygen Flow Rate (L/min) 2 Oxygen Delivery Method Room Air Weight: 108 lb 11.006 oz Body Mass Index (BMI) 16.5 Intake & Output: Intake and Output for Last 24 Hours 02/26/25 02/27/25 02/28/25 23:59 23:59 23:59 Intake Total 3033.33 / 3033.33 3509.29 / 3509.29 500 / 500 Output Total 2560 / 2560 2075 / 2075 1025 / 1025 Balance 473.33 / 473.33 1434.29 / 1434.29 -525 / -525 Medical Nutrition Assessment Dietitian: Malnutrition Criteria Met Start: 02/25/25 11:58 Freq: Status: Active Protocol: Document 02/25/25 11:59 SLA (Rec: 02/25/25 11:59 SLA [id number]) Nutrition Malnutrition Evidence of Yes Malnutrition Exists Malnutrition (severe Chronic ): Evidenced By Suboptimal Energy Intake (Severe),Weight Loss (Severe), Physical Changes (Severe) Clinical Problem Chronic Disease or Condition Related Malnutrition Etiology related to GI dysfunction and cancer causing inadequate energy intake Signs/Symptoms as evidenced by 23% unintended wt loss and 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 5 Status Active Problem Recommendation Dietitian As medically able rec CECILY to Transitional with goalof Recommendations/ regular diet d/t signs and symptoms of malnutrition Changes As medically able, rec 4 oz ensure plus high protein 4x /day w/ medpass for increased nutrition if consumed- prefers chocolate flavor Lab / Micro Data 02/28/25 06:20 02/28/25 06:20 Labs: Laboratory Results - last 24 hr 02/27/25 05:48: Platelet Estimate SLT 02/28/25 06:20: WBC 3.0 L, RBC 2.79 L, Hgb 9.5 L, Hct 28.4 L, MCV 101.8 H, MCH 34.1 H, MCHC 33.5, RDW Std Deviation 58.0 H, RDW Coeff of Rosalee 15.4 H, Plt Count 77 L, MPV 9.5, Immature Gran % (Auto) 0.700, Neut % (Auto) 59.6, Lymph % (Auto) 15.3 L, Rawlins % (Auto) 19.7 H, Eos % (Auto) 4.4, Baso % (Auto) 0.3, Absolute Neuts (auto) 1.8 L, Absolute Lymphs (auto) 0.45 L, Nucleated RBC % 0, Differential Comment SCANNED, Platelet Estimate MOD DEC, RBC Morphology NORM C+C Physical Exam GI GI Narrative: Abdomen- soft, slight tenderness at the incision site. Positive bowel sounds. Silver dressing intact. Assessment & Plan Assessment/Plan (1) SBO (small bowel obstruction): PLAN: I am following this patient in conjunction with Dr. Chandler. He will independently evaluate this patient. Labs reviewed Continue full liquids for breakfast. May advance patient to transitional diet atlunch if tolerate breakfast Probable discharge tomorrow Charges/Coding Visit Charges Inpatient E&M: 45814 Subs Hosp L1 (no charge; post-op) 02/28/25 0754 <Electronically signed by Rachael LOWERY PA-C> Cosigner Signature (if applicable): CC: ~ Signed ADDENDUM by Dr. Kunal Chandler MD on 02/28/25 at 1650 Addendum Patient seen and examined this afternoon. He seems to be tolerating diet well. No further nausea or vomiting. Ileostomy output seems to be decreasing. Patient is to advance diet this evening. Will continue to follow along closely. Anticipate discharge in the next few days 02/28/25 1650<Electronically signed by Kunal Chandler MD> Cosigner Signature (if applicable): cc: ~* Signed [facility] Work Phone: 1(633) 138-318305-12-2025 Progress note Author Handy Royal [facility] Note Date/Time February 28, 2025 3:56p m [facility] Medical Records Department [address] [place] [address] Progress Note - Hospitalist 02/28/25 1055 MR#: [id number] Acct: [id number] Name: ANDREW POSADA Rep #:[id number] : 1965 59 From: Handy Harris PCP: WENDY Gonzalez Status:A DM IN Location: MS3 [id number] Reason for Visit Reason for Visit: Diagnoses Malignant neoplasm of rectum (02/24/25) Unspecified intestinal obstruction, unspecified as to partial versus complete obstruction (02/24/25) Objective Data Objective Data Vital Signs: Vital Signs Temp Pulse Resp BP Pulse Ox O2 Del Method O2 Flow Rate 98.2 F 62 16 143/92 H 97 Room Air 2 02/28/25 07:53 02/28/25 07:53 02/28/25 07:53 02/28/25 07:53 02/28/25 07:53 02/28/25 08:05 02/25/25 17:00 Oxygen Flow Rate (L/min) 2 Oxygen Delivery Method Room Air Weight: 108 lb 11.006 oz Body Mass Index (BMI) 16.5 Intake & Output: Intake and Output for Last 24 Hours 02/26/25 02/27/25 02/28/25 23:59 23:59 23:59 Intake Total 3033.33 / 3033.33 3509.29 / 3509.29 500 / 500 Output Total 2560 / 2560 2075 / 2075 1025 / 1025 Balance 473.33 / 473.33 1434.29 / 1434.29 -525 / -525 Medical Nutrition Assessment Dietitian: Malnutrition Criteria Met Start: 02/25/25 11:58 Freq: Status: Active Protocol: Document 02/25/25 11:59 SLA (Rec: 02/25/25 11:59 SLA [id number]) Nutrition Malnutrition Evidence of Yes Malnutrition Exists Malnutrition (severe Chronic ): Evidenced By Suboptimal Energy Intake (Severe),Weight Loss (Severe), Physical Changes (Severe) Clinical Problem Chronic Disease or Condition Related Malnutrition Etiology related to GI dysfunction and cancer causing inadequate energy intake Signs/Symptoms as evidenced by 23% unintended wt loss and 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 5 Status Active Problem Recommendation Dietitian As medically able rec CECILY to Transitional with goalof Recommendations/ regular diet d/t signs and symptoms of malnutrition Changes As medically able, rec 4 oz ensure plus high protein 4x /day w/ medpass for increased nutrition if consumed- prefers chocolate flavor Lab / Micro Data 02/28/25 06:20 02/28/25 06:20 Labs: Laboratory Results - last 24 hr 02/28/25 06:20: WBC 3.0 L, RBC 2.79 L, Hgb 9.5 L, Hct 28.4 L, MCV 101.8 H, MCH 34.1 H, MCHC 33.5, RDW Std Deviation 58.0 H, RDW Coeff of Rosalee 15.4 H, Plt Count 77 L, MPV 9.5, Immature Gran % (Auto) 0.700, Neut % (Auto) 59.6, Lymph % (Auto) 15.3 L, Rawlins % (Auto) 19.7 H, Eos % (Auto) 4.4, Baso % (Auto) 0.3, Absolute Neuts (auto) 1.8 L, Absolute Lymphs (auto) 0.45 L, Nucleated RBC % 0, Differential Comment SCANNED, Platelet Estimate MOD DEC, RBC Morphology NORM C+C, Sodium 138, Potassium 3.8, Chloride 105, Carbon Dioxide 26.0, Anion Gap 8, BUN 17, Creatinine 1.10, Estim Creat Clear Calc 50.42, Est GFR (MDRD) Non-Af 77, BUN/Creatinine Ratio 15.4, Glucose 96, Calcium 8.7 Physical Exam Narrative Seen and examined NG tube was removed on 02/26/2025. On full liquid diet tolerated well. Advance to soft diet. Has a right-sided diverting jejunostomy/ileostomy. Discussed with nursing staff, 550 mL bilious output since morning and 1425 mL yesterday. the patient has 2 colostomies and 2 bilateral nephrostomy tubes in each kidney Physical exam General: Alert, Oriented x3, Cooperative HEENT: Atraumatic, PERRLA, EOMI, Normocephalic. Oral: Oral mucosa dry. No Gingival or Mucosal Lesions/ Ulcerations Neck: Supple, No JVD, Negative Carotid Bruits Chest wall/Lungs: Air entry diminished in bilateral lung bases. No crepitation/rhonchi Cardiovascular: Irregular rhythm normal S1,S2, systolic murmur Abdomen: Bowel Sounds sluggish, soft, Non Tender, colostomy. No significant fecal content in colostomy bag. Jejunostomy has bilious drainage, high output fistula : Bilateral nephrostomy tube,, urine output is increased. Clear in color no renal angle tenderness. No suprapubic tenderness. Extremities: No edema, Capillary Refill Less than 3 Seconds Skin: No rashes, No breakdown Musculoskeletal: No Tenderness to Palpation of Joints or Extremities Neurological: Cranial nerves II-XII grossly intact, DTR 2+/4. No acute focal neurological deficit. Psych/Mental Status: Flat affect Assessment & Plan Assessment/Plan (1) SBO (small bowel obstruction): (2) Malignant neoplasm of rectum: PLAN: Plan This 59-year-old gentleman is being admitted for small bowel obstruction. Patient has history of rectal cancer status post APR. He had chemotherapy and radiation 4 months ago and then last chemo about 10 days ago. 1. Small bowel obstruction with history of colorectal cancer status post APR and colostomy: Patient is being admitted MedSur floor. IV fluid Ringer lactateat 100 mL/h. NG suction at low intermittent wall suction. Monitor bowel emptying. Surgery Dr. Chandler is consulted. CT abdomen images shows multiple distended small bowel loops with largest measuring 3.7 cm. 02/25: Small bowel series shows contrast in the stomach with collection in duodenum and proximal jejunum at 1 hour. Multiple dilated small bowel loops predominantly in the left side. As per surgeon, there is less chance of conservative management therefore surgery was recommended and patient agreed. Plan for surgery today. Mild hypokalemia, electrolyte replacement ordered. 02/26: Patient had small bowel obstruction secondary to adhesions/radiation to the pelvis. Diagnostic laparoscopy converted to exploratory laparotomy with extensive lysis of adhesions and diverting loop jejunostomy on 02/25/2025. Jejunostomy is working good and had bags emptied twice with bilious content. 02/27: Discussed with the nursing staff. IV fluid replacement, Ringer lactate ordered; to be more than jejunostomy output and urine output. Urine output has increased due to IV fluid yesterday. Patient also on full liquid diet. Decreased lung sounds in lung bases therefore incentive spirometry reinforced 02/28: 950 mL stool output since midnight. 675 mL urine output. Diet advanced to soft diet. Electrolytes within normal range. 2. CA rectum: He follows Dr. Ho. Had C8 FOLFOX on 02/14/2025. Prior to that he finished chemotherapy on 08/13/2024 and radiation on 08/17/2024. 3. Bilateral hydronephrosis status post bilateral nephrostomy in September 2024 in [facility]: Urine in bilateral nephrostomy bag is dark-colored. IV fluid hydration. CT scan does not show hydronephrosis 02/28: Urine output is good. BUN/creatinine 1.1/50.4. 4. History of DVT in the past: Unclear about it location but patient said it was in right thigh. Unclear about the reason why did not complete full course of anticoagulation but he said he had Lovenox and aspirin during hospitalizationin [facility]. 5. Irregular rhythm: Twelve-lead EKG shows sinus rhythm with PAC, LAD at 85 bpm.Denies history of A-fib. 6. Chronic anemia: Slight drop in hemoglobin from baseline 12.5 g%. 11.5/33.5%. Mild chronic thrombocytopenia platelet count around 110,000. 7. Mild INOCENCIA: Baseline creatinine around 1.33 in January 2025. Creatinine went from admission 1.39-1.67 therefore qualifies for INOCENCIA. IV fluid ordered, normal saline plus KCl ordered 150 mL/h to compensate jejunostomy loss, high output fistula. NG tube 650 mL. Jejunostomy 2560 mL. DVT prophylaxis, high risk: Lovenox 40 mg subcu daily. Lovenox on hold due to anemia 02/28: Resume Lovenox from tomorrow a.m. Living will/advanced directive/end of life care: Patient does not have living will or advanced directive but in the process of making living well. After discussion of benefits/risks procedures involved with full code, DNR CC arrest and DNR CC, the patient and his opted for full code Patient does want artificial life support including intubation, tube feed, ventilator and/chest compression, central venous catheter, vasopressor and DC shock if needed Laboratory Results 02/28/25 06:20: WBC 3.0 L, RBC 2.79 L, Hgb 9.5 L, Hct 28.4 L, MCV 101.8 H, MCH 34.1 H, MCHC 33.5, RDW Std Deviation 58.0 H, RDW Coeff of Rosalee 15.4 H, Plt Count 77 L, MPV 9.5, Immature Gran % (Auto) 0.700, Neut % (Auto) 59.6, Lymph % (Auto) 15.3 L, Rawlins % (Auto) 19.7 H, Eos % (Auto) 4.4, Baso % (Auto) 0.3, Absolute Neuts (auto) 1.8 L, Absolute Lymphs (auto) 0.45 L, Nucleated RBC % 0, Differential Comment SCANNED, Platelet Estimate MOD DEC, RBC Morphology NORM C+C, Sodium 138, Potassium 3.8, Chloride 105, Carbon Dioxide 26.0, Anion Gap 8, BUN 17, Creatinine 1.10, Estim Creat Clear Calc 50.42, Est GFR (MDRD) Non-Af 77,BUN/Creatinine Ratio 15.4, Glucose 96, Calcium 8.7 02/28/25 11:19: POC Glucose 119 H Clinical Impression(s) from Imaging Studies Abdomen CT 02/24/25 07:20 IMPRESSION: 1. Multiple distended small bowel loops with differential air-fluid levels measuring up to 3.7 cm, concerning for small bowel obstruction with possible transition in the right lower abdominal quadrant. 2. Bladder wall thickening which may be due to the decompressed state of the bladder or due to cystitis. 3. Small esophageal hiatal hernia. 4. Inguinal hernias, bilaterally. Reading Location: [facility] X-[facility] 02/24/25 11:25 IMPRESSION: Tip of the nasogastric tube in the fundus of the stomach. Bilateral nephrostomy catheters. Bowel-gas pattern suggest adynamic/reflex ileus. Reading Location: [facility] Charges/Coding Visit Charges Inpatient E&M: 29917 Subs Hosp L2 02/28/25 3227 <Electronically signed by Handy Royal MD> Cosigner Signature (if applicable): CC: ~ Signed [facility] Work Phone: 1(468) 113-530205-12-2025 Progress note [facility] Medical Records Department [address] [place] [address] Progress Note - Surgery 02/28/25 0727 MR#: [id number] Acct: [id number] Name: ANDREW POSADA Rep #:[id number] : 1965 59 From: Rachael LOWERY PA-C PCP: WENDY Gonzalez Status:A DM IN Location: MS3 BU304-1 Subjective Subjective Patient evaluated resting comfortably in bed. He denies any abdominal pain/discomfort at rest. He notes his ileostomy output has decreased to become more manageable. He denies any nausea, vomiting, fever. He is tolerating full liquids. Objective Data Objective Data Vital Signs: Vital Signs Temp Pulse Resp BP Pulse Ox O2 Del Method O2 Flow Rate 98.2 F 64 18 163/95 H 97 Room Air 2 02/28/25 05:55 02/28/25 05:55 02/28/25 05:55 02/28/25 05:55 02/28/25 05:55 02/28/25 05:58 02/25/25 17:00 Oxygen Flow Rate (L/min) 2 Oxygen Delivery Method Room Air Weight: 108 lb 11.006 oz Body Mass Index (BMI) 16.5 Intake & Output: Intake and Output for Last 24 Hours 02/26/25 02/27/25 02/28/25 23:59 23:59 23:59 Intake Total 3033.33 / 3033.33 3509.29 / 3509.29 500 / 500 Output Total 2560 / 2560 2075 / 2075 1025 / 1025 Balance 473.33 / 473.33 1434.29 / 1434.29 -525 / -525 Medical Nutrition Assessment Dietitian: Malnutrition Criteria Met Start: 02/25/25 11:58 Freq: Status: Active Protocol: Document 02/25/25 11:59 SLA (Rec: 02/25/25 11:59 SLA [id number]) Nutrition Malnutrition Evidence of Yes Malnutrition Exists Malnutrition (severe Chronic ): Evidenced By Suboptimal Energy Intake (Severe),Weight Loss (Severe), Physical Changes (Severe) Clinical Problem Chronic Disease or Condition Related Malnutrition Etiology related to GI dysfunction and cancer causing inadequate energy intake Signs/Symptoms as evidenced by 23% unintended wt loss and 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 5 Status Active Problem Recommendation Dietitian As medically able rec CECILY to Transitional with goalof Recommendations/ regular diet d/t signs and symptoms of malnutrition Changes As medically able, rec 4 oz ensure plus high protein 4x /day w/ medpass for increased nutrition if consumed- prefers chocolate flavor Lab / Micro Data 02/28/25 06:20 02/28/25 06:20 Labs: Laboratory Results - last 24 hr 02/27/25 05:48: Platelet Estimate SLT 02/28/25 06:20: WBC 3.0 L, RBC 2.79 L, Hgb 9.5 L, Hct 28.4 L, MCV 101.8 H, MCH 34.1 H, MCHC 33.5, RDW Std Deviation 58.0 H, RDW Coeff of Rosalee 15.4 H, Plt Count 77 L, MPV 9.5, Immature Gran % (Auto) 0.700, Neut % (Auto) 59.6, Lymph % (Auto) 15.3 L, Rawlins % (Auto) 19.7 H, Eos % (Auto) 4.4, Baso % (Auto) 0.3, Absolute Neuts (auto) 1.8 L, Absolute Lymphs (auto) 0.45 L, Nucleated RBC % 0, Differential Comment SCANNED, Platelet Estimate MOD DEC, RBC Morphology NORM C+C Physical Exam GI GI Narrative: Abdomen- soft, slight tenderness at the incision site. Positive bowel sounds. Silver dressing intact. Assessment & Plan Assessment/Plan (1) SBO (small bowel obstruction): PLAN: I am following this patient in conjunction with Dr. Chandler. He will independently evaluate this patient. Labs reviewed Continue full liquids for breakfast. May advance patient to transitional diet atlunch if tolerate breakfast Probable discharge tomorrow Charges/Coding Visit Charges Inpatient E&M: 89892 Subs Hosp L1 (no charge; post-op) 02/28/25 0754 Cosigner Signature (if applicable): CC: ~ Signed ADDENDUM by Dr. Kunal Chandler MD on 02/28/25 at 1650 Addendum Patient seen and examined this afternoon. He seems to be tolerating diet well. No further nausea orvomiting. Ileostomy output seems to be decreasing. Patient is to advance diet this evening. Will continue to follow along closely. Anticipate discharge in the next few days 02/28/25 1650 Cosigner Signature (if applicable): cc: ~* Signed [facility]05-12-2025 Progress note [facility] Medical Records Department [address] [place] [address] Progress Note - Hospitalist 02/28/25 1055 MR#: [id number] Acct: [id number] Name: ANDREW POSADA Rep #:[id number] : 1965 59 From: Handy Harris PCP: Elly Bellamy NP-C Status:A DM IN Location: MS3 [id number] Reason for Visit Reason for Visit: Diagnoses Malignant neoplasm of rectum (02/24/25) Unspecified intestinal obstruction, unspecified as to partial versus complete obstruction (02/24/25) Objective Data Objective Data Vital Signs: Vital Signs Temp Pulse Resp BP Pulse Ox O2 Del Method O2 Flow Rate 98.2 F 62 16 143/92 H 97 Room Air 2 02/28/25 07:53 02/28/25 07:53 02/28/25 07:53 02/28/25 07:53 02/28/25 07:53 02/28/25 08:05 02/25/25 17:00 Oxygen Flow Rate (L/min) 2 Oxygen Delivery Method Room Air Weight: 108 lb 11.006 oz Body Mass Index (BMI) 16.5 Intake & Output: Intake and Output for Last 24 Hours 02/26/25 02/27/25 02/28/25 23:59 23:59 23:59 Intake Total 3033.33 / 3033.33 3509.29 / 3509.29 500 / 500 Output Total 2560 / 2560 2075 / 2075 1025 / 1025 Balance 473.33 / 473.33 1434.29 / 1434.29 -525 / -525 Medical Nutrition Assessment Dietitian: Malnutrition Criteria Met Start: 02/25/25 11:58 Freq: Status: Active Protocol: Document 02/25/25 11:59 SLA (Rec: 02/25/25 11:59 SLA 10.10.25.7) Nutrition Malnutrition Evidence of Yes Malnutrition Exists Malnutrition (severe Chronic ): Evidenced By Suboptimal Energy Intake (Severe),Weight Loss (Severe), Physical Changes (Severe) Clinical Problem Chronic Disease or Condition Related Malnutrition Etiology related to GI dysfunction and cancer causing inadequate energy intake Signs/Symptoms as evidenced by 23% unintended wt loss and 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 5 Status Active Problem Recommendation Dietitian As medically able rec CECILY to Transitional with goalof Recommendations/ regular diet d/t signs and symptoms of malnutrition Changes As medically able, rec 4 oz ensure plus high protein 4x /day w/ medpass for increased nutrition if consumed- prefers chocolate flavor Lab / Micro Data 02/28/25 06:20 02/28/25 06:20 Labs: Laboratory Results - last 24 hr 02/28/25 06:20: WBC 3.0 L, RBC 2.79 L, Hgb 9.5 L, Hct 28.4 L, MCV 101.8 H, MCH 34.1 H, MCHC 33.5, RDW Std Deviation 58.0 H, RDW Coeff of Rosalee 15.4 H, Plt Count 77 L, MPV 9.5, Immature Gran % (Auto) 0.700, Neut % (Auto) 59.6, Lymph % (Auto) 15.3 L, Rawlins % (Auto) 19.7 H, Eos % (Auto) 4.4, Baso % (Auto) 0.3, Absolute Neuts (auto) 1.8 L, Absolute Lymphs (auto) 0.45 L, Nucleated RBC % 0, Differential Comment SCANNED, Platelet Estimate MOD DEC, RBC Morphology NORM C+C, Sodium 138, Potassium 3.8, Chloride 105, Carbon Dioxide 26.0, Anion Gap 8, BUN 17, Creatinine 1.10,Estim Creat Clear Calc 50.42, Est GFR (MDRD) Non-Af 77, BUN/Creatinine Ratio 15.4, Glucose 96, Calcium 8.7 Physical Exam Narrative Seen and examined NG tube was removed on 02/26/2025. On full liquid diet tolerated well. Advance to soft diet. Has a right-sided diverting jejunostomy/ileostomy. Discussed with nursing staff, 550 mL bilious output since morning and 1425 mL yesterday. the patient has 2 colostomies and 2 bilateral nephrostomy tubes in each kidney Physical exam General: Alert, Oriented x3, Cooperative HEENT: Atraumatic, PERRLA, EOMI, Normocephalic. Oral: Oral mucosa dry. No Gingival or Mucosal Lesions/ Ulcerations Neck: Supple, No JVD, Negative Carotid Bruits Chest wall/Lungs: Air entry diminished in bilateral lung bases. No crepitation/rhonchi Cardiovascular: Irregular rhythm normal S1,S2, systolic murmur Abdomen: Bowel Sounds sluggish, soft, Non Tender, colostomy. No significant fecal content in colostomy bag. Jejunostomy has bilious drainage, high output fistula : Bilateral nephrostomy tube,, urine output is increased. Clear in color no renal angle tenderness. No suprapubic tenderness. Extremities: No edema, Capillary Refill Less than 3 Seconds Skin: No rashes, No breakdown Musculoskeletal: No Tenderness to Palpation of Joints or Extremities Neurological: Cranial nerves II-XII grossly intact, DTR 2+/4. No acute focal neurological deficit. Psych/Mental Status: Flat affect Assessment & Plan Assessment/Plan (1) SBO (small bowel obstruction): (2) Malignant neoplasm of rectum: PLAN: Plan This 59-year-old gentleman is being admitted for small bowel obstruction. Patient has history of rectal cancer status post APR. He had chemotherapy and radiation 4 months ago and then last chemo about 10 days ago. 1. Small bowel obstruction with history of colorectal cancer status post APR and colostomy: Patientis being admitted MedSurg floor. IV fluid Ringer lactateat 100 mL/h. NG suction at low intermittentwall suction. Monitor bowel emptying. Surgery Dr. Chandler is consulted. CT abdomen images shows multiple distended small bowel loops with largest measuring 3.7 cm. 02/25: Small bowel series shows contrast in the stomach with collection in duodenum and proximal jejunum at 1 hour. Multiple dilated small bowel loops predominantly in the left side. As per surgeon, there is less chance of conservative management therefore surgery was recommended and patient agreed. P chelle for surgery today. Mild hypokalemia, electrolyte replacement ordered. 02/26: Patient had small bowel obstruction secondary to adhesions/radiation to the pelvis. Diagnostic laparoscopy converted to exploratory laparotomy with extensive lysis of adhesions and diverting loop jejunostomy on 02/25/2025. Jejunostomy is working good and had bags emptied twice with bilious content. 02/27: Discussed with the nursing staff. IV fluid replacement, Ringer lactate ordered; to be more than jejunostomy output and urine output. Urine output has increased due to IV fluid yesterday. Patient also on full liquid diet. Decreased lung sounds in lung bases therefore incentive spirometry reinforced 02/28: 950 mL stool output since midnight. 675 mL urine output. Diet advanced to soft diet. Electrolytes within normal range. 2. CA rectum: He follows Dr. Ho. Had C8 FOLFOX on 02/14/2025. Prior to that he finished chemotherapy on 08/13/2024 and radiation on 08/17/2024. 3. Bilateral hydronephrosis status post bilateral nephrostomy in September 2024 in [facility]: Urine in bilateral nephrostomy bag is dark-colored. IV fluid hydration. CT scan does not show hydronephrosis 02/28: Urine output is good. BUN/creatinine 1.1/50.4. 4. History of DVT in the past: Unclear about it location but patient said it was in right thigh. Unclear about the reason why did not complete full course of anticoagulation but he said he had Lovenox and aspirin during hospitalizationin [facility]. 5. Irregular rhythm: Twelve-lead EKG shows sinus rhythm with PAC, LAD at 85 bpm.Denies history of A-fib. 6. Chronic anemia: Slight drop in hemoglobin from baseline 12.5 g%. 11.5/33.5%. Mild chronic thrombocytopenia platelet count around 110,000. 7. Mild INOCENCIA: Baseline creatinine around 1.33 in January 2025. Creatinine went from admission 1.39-1.67 therefore qualifies for INOCENCIA. IV fluid ordered, normal saline plus KCl ordered 150 mL/h to compensate jejunostomy loss, high output fistula. NG tube 650 mL. Jejunostomy 2560 mL. DVT prophylaxis, high risk: Lovenox 40 mg subcu daily. Lovenox on hold due to anemia 02/28: Resume Lovenox from tomorrow a.m. Living will/advanced directive/end of life care: Patient does not have living will or advanced directive but in the process of making living well. After discussion of benefits/risks procedures involved with full code, DNR CC arrest and DNR CC, the patient and his opted for full code Patient does want artificial life support including intubation, tube feed, ventilator and/chest compression, central venous catheter, vasopressor and DC shock if needed Laboratory Results 02/28/25 06:20: WBC 3.0 L, RBC 2.79 L, Hgb 9.5 L, Hct 28.4 L, MCV 101.8 H, MCH 34.1 H, MCHC 33.5, RDW Std Deviation 58.0 H, RDW Coeff of Rosalee 15.4 H, Plt Count 77 L, MPV 9.5, Immature Gran % (Auto) 0.700, Neut % (Auto) 59.6, Lymph % (Auto) 15.3 L, Rawlins % (Auto) 19.7 H, Eos % (Auto) 4.4, Baso % (Auto) 0.3, Absolute Neuts (auto) 1.8 L, Absolute Lymphs (auto) 0.45 L, Nucleated RBC % 0, Differential Comment SCANNED, Platelet Estimate MOD DEC, RBC Morphology NORM C+C, Sodium 138, Potassium 3.8, Chloride 105, Carbon Dioxide 26.0, Anion Gap 8, BUN 17, Creatinine 1.10, Estim Creat Clear Calc 50.42, Est GFR (MDRD) Non-Af 77,BUN/Creatinine Ratio 15.4, Glucose 96, Calcium 8.7 02/28/25 11:19: POC Glucose 119 H Clinical Impression(s) from Imaging Studies Abdomen CT 02/24/25 07:20 IMPRESSION: 1. Multiple distended small bowel loops with differential air-fluid levels measuring up to 3.7 cm, concerning for small bowel obstruction with possible transition in the right lower abdominal quadrant. 2. Bladder wall thickening which may be due to the decompressed state of the bladder or due to cystitis. 3. Small esophageal hiatal hernia. 4. Inguinal hernias, bilaterally. Reading [facility] X-Ray 02/24/25 11:25 IMPRESSION: Tip of the nasogastric tube in the fundus of the stomach. Bilateral nephrostomy catheters. Bowel-gas pattern suggest adynamic/reflex ileus. Reading Location: [facility] Charges/Coding Visit Charges Inpatient E&M: 60638 Subs Hosp L2 02/28/25 1556 Cosigner Signature (if applicable): CC: ~ Signed [facility]05-11-2025 Progress note Author Handy Royal [facility] Note Date/Time February 27, 2025 2:45p m [facility] Medical Records Department [address] [place] [address] Progress Note - Hospitalist 02/27/25 1436 MR#: [id number] Acct: [id number] Name: ANDREW POSADA Yamila Rep #:[id number] : 1965 59 From: Handy Harris PCP: WENDY Gonzalez Status:A DM IN Location: MS3 [id number] Reason for Visit Reason for Visit: Diagnoses Malignant neoplasm of rectum (02/24/25) Unspecified intestinal obstruction, unspecified as to partial versus complete obstruction (02/24/25) Objective Data Objective Data Vital Signs: Vital Signs Temp Pulse Resp BP Pulse Ox O2 Del Method O2 Flow Rate 98.1 F 70 16 134/89 H 98 Room Air 2 02/27/25 08:09 02/27/25 08:09 02/27/25 08:09 02/27/25 08:09 02/27/25 08:09 02/27/25 08:09 02/25/25 17:00 Oxygen Flow Rate (L/min) 2 Oxygen Delivery Method Room Air Weight: 108 lb 3.951 oz Body Mass Index (BMI) 16.4 Intake & Output: Intake and Output for Last 24 Hours 02/25/25 02/26/25 02/27/25 23:59 23:59 23:59 Intake Total 4400 / 4400 3033.33 / 3033.33 3042.62 / 3042.62 Output Total 2480 / 2480 2560 / 2560 1525 / 1525 Balance 1920 / 1920 473.33 / 473.33 1517.62 / 1517.62 Medical Nutrition Assessment Dietitian: Malnutrition Criteria Met Start: 02/25/25 11:58 Freq: Status: Active Protocol: Document 02/25/25 11:59 SLA (Rec: 02/25/25 11:59 SLA 10..25.7) Nutrition Malnutrition Evidence of Yes Malnutrition Exists Malnutrition (severe Chronic ): Evidenced By Suboptimal Energy Intake (Severe),Weight Loss (Severe), Physical Changes (Severe) Clinical Problem Chronic Disease or Condition Related Malnutrition Etiology related to GI dysfunction and cancer causing inadequate energy intake Signs/Symptoms as evidenced by 23% unintended wt loss and 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 5 Status Active Problem Recommendation Dietitian As medically able rec CECILY to Transitional with goalof Recommendations/ regular diet d/t signs and symptoms of malnutrition Changes As medically able, rec 4 oz ensure plus high protein 4x /day w/ medpass for increased nutrition if consumed- prefers chocolate flavor Lab / Micro Data 02/27/25 05:48 02/27/25 05:48 Labs: Laboratory Results - last 24 hr 02/27/25 05:48: WBC 4.4, RBC 2.81 L, Hgb 9.6 L, Hct 28.5 L, MCV 101.4 H, MCH 34.2 H, MCHC 33.7, RDW Std Deviation 58.7 H, RDW Coeff of Rosalee 16.0 H, Plt Count 90 L, MPV 9.2, Immature Gran % (Auto) 0.500, Neut % (Auto) 82.8 H, Lymph % (Auto) 6.8 L, Rawlins % (Auto) 9.5, Eos % (Auto) 0.2, Baso % (Auto) 0.2, Absolute Neuts (auto) 3.7, Absolute Lymphs (auto) 0.30 L, Nucleated RBC % 0, Platelet Estimate SLT DEC, Sodium 143, Potassium 4.3, Chloride 108, Carbon Dioxide 28.0, Anion Gap 7, BUN 25 H, Creatinine 1.43 H, Estim Creat Clear Calc 38.78 L, Est GFR (MDRD) Non-Af 56 L, BUN/Creatinine Ratio 17.6, Glucose 106 H, Calcium 8.6 Physical Exam Narrative Seen and examined NG tube was removed yesterday. Started on diet advanced to full liquid. Has a right-sided diverting jejunostomy. Discussed with nursing staff, 1000 mL bilious output since morning and urine output 225 mL from bilateral nephrostomy tubes. It was 1310 from duodenostomy yesterday Now, the patient has 2 colostomies and 2 bilateral nephrostomy tubes in each kidney Physical exam General: Alert, Oriented x3, Cooperative HEENT: Atraumatic, PERRLA, EOMI, Normocephalic. Oral: Oral mucosa dry no Gingival or Mucosal Lesions/ Ulcerations Neck: Supple, No JVD, Negative Carotid Bruits Chest wall/Lungs: Air entry diminished in bilateral lung bases. No crepitation/rhonchi Cardiovascular: Irregular rhythm normal S1,S2, systolic murmur Abdomen: Bowel Sounds sluggish, soft, Non Tender, colostomy. No significant fecal content in colostomy bag. Jejunostomy has bilious drainage, high output fistula : Bilateral nephrostomy tube,, urine output is increased. Clear in color no renal angle tenderness. No suprapubic tenderness. Extremities: No edema, Capillary Refill Less than 3 Seconds Skin: No rashes, No breakdown Musculoskeletal: No Tenderness to Palpation of Joints or Extremities Neurological: Cranial nerves II-XII grossly intact, DTR 2+/4. No acute focal neurological deficit. Psych/Mental Status: Flat affect Assessment & Plan Assessment/Plan (1) SBO (small bowel obstruction): (2) Malignant neoplasm of rectum: PLAN: Plan This 59-year-old gentleman is being admitted for small bowel obstruction. Patient has history of rectal cancer status post APR. He had chemotherapy and radiation 4 months ago and then last chemo about 10 days ago. 1. Small bowel obstruction with history of colorectal cancer status post APR and colostomy: Patient is being admitted MedSur floor. IV fluid Ringer lactateat 100 mL/h. NG suction at low intermittent wall suction. Monitor bowel emptying. Surgery Dr. Chandler is consulted. CT abdomen images shows multiple distended small bowel loops with largest measuring 3.7 cm. 02/25: Small bowel series shows contrast in the stomach with collection in duodenum and proximal jejunum at 1 hour. Multiple dilated small bowel loops predominantly in the left side. As per surgeon, there is less chance of conservative management therefore surgery was recommended and patient agreed. Plan for surgery today. Mild hypokalemia, electrolyte replacement ordered. 02/26: Patient had small bowel obstruction secondary to adhesions/radiation to the pelvis. Diagnostic laparoscopy converted to exploratory laparotomy with extensive lysis of adhesions and diverting loop jejunostomy on 02/25/2025. Jejunostomy is working good and had bags emptied twice with bilious content. 02/27: Discussed with the nursing staff. IV fluid replacement, Ringer lactate ordered; to be more than jejunostomy output and urine output. Urine output has increased due to IV fluid yesterday. Patient also on full liquid diet. Decreased lung sounds in lung bases therefore incentive spirometry reinforced 2. CA rectum: He follows Dr. Ho. Had C8 FOLFOX on 02/14/2025. Prior to that he finished chemotherapy on 08/13/2024 and radiation on 08/17/2024. 3. Bilateral hydronephrosis status post bilateral nephrostomy in September 2024 in [facility]: Urine in bilateral nephrostomy bag is dark-colored. IV fluid hydration. CT scan does not show hydronephrosis 4. History of DVT in the past: Unclear about it location but patient said it was in right thigh. Unclear about the reason why did not complete full course of anticoagulation but he said he had Lovenox and aspirin during hospitalizationin [facility]. 5. Irregular rhythm: Twelve-lead EKG shows sinus rhythm with PAC, LAD at 85 bpm.Denies history of A-fib. 6. Chronic anemia: Slight drop in hemoglobin from baseline 12.5 g%. 11.5/33.5%. Mild chronic thrombocytopenia platelet count around 110,000. 7. Mild INOCENCIA: Baseline creatinine around 1.33 in January 2025. Creatinine went from admission 1.39-1.67 therefore qualifies for INOCENCIA. IV fluid ordered, normal saline plus KCl ordered 150 mL/h to compensate jejunostomy loss, high output fistula. NG tube 650 mL. Jejunostomy 2560 mL. DVT prophylaxis, high risk: Lovenox 40 mg subcu daily Living will/advanced directive/end of life care: Patient does not have living will or advanced directive but in the process of making living well. After discussion of benefits/risks procedures involved with full code, DNR CC arrest and DNR CC, the patient and his opted for full code Patient does want artificial life support including intubation, tube feed, ventilator and/chest compression, central venous catheter, vasopressor and DC shock if needed Laboratory Results 02/24/25 07:35: Phosphorus 2.7, Magnesium 2.1 02/24/25 16:35: Urine Color Yellow, Urine Clarity Turbid, Urine pH 6.0, Ur Specific [place] 1.025, Urine Protein 500 H, Urine Glucose (UA) Normal, Urine Ketones 15 H, Urine Occult Blood 250 H, Urine Nitrite Negative, Urine Bilirubin Negative, Urine Urobilinogen Normal, Ur Leukocyte Esterase 500 H, Urine RBC 25-50 SEEN, Urine WBC >100 SEEN, Ur Squamous Epith Cells 0 SEEN, Calcium Oxalate Crystal 1+, Urine Bacteria 2+, Urine Mucus 0 SEEN 02/25/25 06:40: WBC 8.3, RBC 3.70 L, Hgb 12.5 L, Hct 35.7 L, MCV 96.5 H, MCH 33.8 H, MCHC 35.0, RDW Std Deviation 52.5 H, RDW Coeff of Rosalee 15.2 H, Plt Count 113 L, MPV 9.4, Immature Gran % (Auto) 0.500, Neut % (Auto) 80.9 H, Lymph % (Auto) 6.2 L, Rawlins % (Auto) 11.9 H, Eos % (Auto) 0.1, Baso % (Auto) 0.4, Absolute Neuts (auto) 6.7, Absolute Lymphs (auto) 0.51 L, Nucleated RBC % 0, Sodium 142, Potassium 3.2 L, Chloride 99, Carbon Dioxide 29.5, Anion Gap 14, BUN21 H, Creatinine 1.51 H, Estim Creat Clear Calc 36.73 L, Est GFR (MDRD) Non-Af 53 L, BUN/Creatinine Ratio 13.7, Glucose 121 H, Calcium 9.6 Clinical Impression(s) from Imaging Studies Abdomen CT 02/24/25 07:20 IMPRESSION: 1. Multiple distended small bowel loops with differential air-fluid levels measuring up to 3.7 cm, concerning for small bowel obstruction with possible transition in the right lower abdominal quadrant. 2. Bladder wall thickening which may be due to the decompressed state of the bladder or due to cystitis. 3. Small esophageal hiatal hernia. 4. Inguinal hernias, bilaterally. Reading Location: [facility] X-Ray 02/24/25 11:25 IMPRESSION: Tip of the nasogastric tube in the fundus of the stomach. Bilateral nephrostomy catheters. Bowel-gas pattern suggest adynamic/reflex ileus. Reading Location: [facility] Charges/Coding Visit Charges Inpatient E&M: 57690 Subs Hosp L2 02/27/25 1443 <Electronically signed by Handy Royal MD> Cosigner Signature (if applicable): CC: ~ Signed ADDENDUM by Dr. Handy Royal MD on 02/27/25 at 1445 Addendum Jejunostomy output 1700 mL bilious fluid in last 24 hours 02/27/25 1445<Electronically signed by Handy Royal MD> Cosigner Signature (if applicable): cc: ~* Signed [facility] Work Phone: 1(789) 360-467705-11-2025 Progress note Author Salena Paredes [facility] Note Date/Time February 27, 2025 1:43p m [facility] Medical Records Department [address] [place] [address] Progress Note - Surgery 02/27/2537 MR#: [id number] Acct: [id number] Name: ANDREW POSADA Rep #:[id number] : 1965 59 From: Salena Harris PCP: Elly Bellamy RN ORTHOPEDIC-C Status:A DM IN Location: MA3 [id number] Subjective Subjective Patient seen and evaluated during AM rounds. Is found resting in bed. He reports his stamina is not what it used to be and he has only been up to the bathroom today. He denies any significant pain. He and his confirmed thatthere has been a lot of difficulty in keeping his new stoma pouched due to leakage and high output. Mr. Posada confirms tolerance of a diet without nausea but generally not finding it particularly appetizing. Objective Data Objective Data Vital Signs: Vital Signs Temp Pulse Resp BP Pulse Ox O2 Del Method O2 Flow Rate 98.1 F 70 16 134/89 H 98 Room Air 2 02/27/25 08:09 02/27/25 08:09 02/27/25 08:09 02/27/25 08:09 02/27/25 08:09 02/27/25 08:09 02/25/25 17:00 Oxygen Flow Rate (L/min) 2 Oxygen Delivery Method Room Air Weight: 108 lb 3.951 oz Body Mass Index (BMI) 16.4 Intake & Output: Intake and Output for Last 24 Hours 02/25/25 02/26/25 02/27/25 23:59 23:59 23:59 Intake Total 4400 / 4400 3033.33 / 3033.33 1700 / 1700 Output Total 2480 / 2480 2560 / 2560 775 / 775 Balance 1920 / 1920 473.33 / 473.33 925 / 925 Medical Nutrition Assessment Dietitian: Malnutrition Criteria Met Start: 02/25/25 11:58 Freq: Status: Active Protocol: Document 02/25/25 11:59 SLA (Rec: 02/25/25 11:59 SLA ..25.7) Nutrition Malnutrition Evidence of Yes Malnutrition Exists Malnutrition (severe Chronic ): Evidenced By Suboptimal Energy Intake (Severe),Weight Loss (Severe), Physical Changes (Severe) Clinical Problem Chronic Disease or Condition Related Malnutrition Etiology related to GI dysfunction and cancer causing inadequate energy intake Signs/Symptoms as evidenced by 23% unintended wt loss and 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 5 Status Active Problem Recommendation Dietitian As medically able rec CECILY to Transitional with goalof Recommendations/ regular diet d/t signs and symptoms of malnutrition Changes As medically able, rec 4 oz ensure plus high protein 4x /day w/ medpass for increased nutrition if consumed- prefers chocolate flavor Lab / Micro Data 02/27/25 05:48 02/27/25 05:48 Labs: Laboratory Results - last 24 hr 02/27/25 05:48: WBC 4.4, RBC 2.81 L, Hgb 9.6 L, Hct 28.5 L, MCV 101.4 H, MCH 34.2 H, MCHC 33.7, RDW Std Deviation 58.7 H, RDW Coeff of Rosalee 16.0 H, Plt Count 90 L, MPV 9.2, Immature Gran % (Auto) 0.500, Neut % (Auto) 82.8 H, Lymph % (Auto) 6.8 L, [place] % (Auto) 9.5, Eos % (Auto) 0.2, Baso % (Auto) 0.2, Absolute Neuts (auto) 3.7, Absolute Lymphs (auto) 0.30 L, Nucleated RBC % 0, Platelet Estimate SLT DEC, Sodium 143, Potassium 4.3, Chloride 108, Carbon Dioxide 28.0, Anion Gap 7, BUN 25 H, Creatinine 1.43 H, Estim Creat Clear Calc 38.78 L, Est GFR (MDRD) Non-Af 56 L, BUN/Creatinine Ratio 17.6, Glucose 106 H, Calcium 8.6 Physical Exam Const oriented x3 and no apparent distress Constitutional Narrative: Frail-appearing GI GI Narrative: Nondistended, soft, minimally tender to palpation, right lower quadrant jejunostomy with appearance of improved perfusion to mucosa and abundant thin bilious output to the ostomy appliance. Left lower quadrant colostomy with normal perfusion and no output to appliance. Midline there is a clean silver dressing. Assessment & Plan Assessment/Plan (1) SBO (small bowel obstruction): PLAN: The patient is a 59-year-old male with a history of rectal cancer status post a bowel resection with end colostomy. He is postoperative day 2 from diagnostic laparoscopy converted to exploratory laparotomy with loop jejunostomydue to intraoperative finding of plastered small bowel in the pelvis. Patient passed his clamp trial yesterday and was initiated on a clear liquid diet which he appears to have tolerated without difficulty. His new enterostomyis demonstrating rather high volume output (estimated at 1700 mL for the last 24hours by nursing). This is led to challenges in keeping it pouch. Currently has approximately a third of the appliance full. Patient and his are encouraged to try to empty more frequently and experiment with orientation by which the bag is positioned so as to minimize the weight and the likelihood for the adhesive to pull away from the stoma. Patient may benefit from Amaya's ringor similar device to help protect the peristomal skin and encourage drainage away from abdominal wall surface. To the send patient would benefit from evaluation by wound and ostomy nursing. Given tolerance of a clear liquid diet will advance to a full liquid diet. No plans to try to block patient's output down at this point but he may require this in the future. I will plan to replace some of his volume loss today via normal saline bolus. Creatinine is notably improved over yesterday. Pain control at this point appears to remain adequate and patient is encouraged to mobilize as he is able to given his numerous drains and lines. This is especially important as I had to hold his Lovenox given a progressive downtrend of his hemoglobin. Salena Paredes MD General Surgery Endocrine Surgery Pager: [facility] [address] [place] [address], [address] [place] [address] Office: [phone] Charges/Coding Visit Charges Inpatient E&M: 73582 Subs Hosp L2 02/27/25 1343 <Electronically signed by Salena Paredes MD> Cosigner Signature (if applicable): CC: ~ Signed [facility] Work Phone: [phone]) 420-832305-11-2025 Progress note [facility] Medical Records Department [address] [place] [address] Progress Note - Hospitalist 02/27/25 1436 MR#: [id number] Acct: [id number] Name: TIM,ANDREW A Rep #:[id number] : 1965 59 From: Handy Harris PCP: Elly Bellamy RN ORTHOPEDIC-C Status:A DM IN Location: MS3 [id number] Reason for Visit Reason for Visit: Diagnoses Malignant neoplasm of rectum (02/24/25) Unspecified intestinal obstruction, unspecified as to partial versus complete obstruction (02/24/25) Objective Data Objective Data Vital Signs: Vital Signs Temp Pulse Resp BP Pulse Ox O2 Del Method O2 Flow Rate 98.1 F 70 16 134/89 H 98 Room Air 2 02/27/25 08:09 02/27/25 08:09 02/27/25 08:09 02/27/25 08:09 02/27/25 08:09 02/27/25 08:09 02/25/25 17:00 Oxygen Flow Rate (L/min) 2 Oxygen Delivery Method Room Air Weight: 108 lb 3.951 oz Body Mass Index (BMI) 16.4 Intake & Output: Intake and Output for Last 24 Hours 02/25/25 02/26/25 02/27/25 23:59 23:59 23:59 Intake Total 4400 / 4400 3033.33 / 3033.33 3042.62 / 3042.62 Output Total 2480 / 2480 2560 / 2560 1525 / 1525 Balance 1920 / 1920 473.33 / 473.33 1517.62 / 1517.62 Medical Nutrition Assessment Dietitian: Malnutrition Criteria Met Start: 02/25/25 11:58 Freq: Status: Active Protocol: Document 02/25/25 11:59 SLA (Rec: 02/25/25 11:59 SLA 10.10.25.7) Nutrition Malnutrition Evidence of Yes Malnutrition Exists Malnutrition (severe Chronic ): Evidenced By Suboptimal Energy Intake (Severe),Weight Loss (Severe), Physical Changes (Severe) Clinical Problem Chronic Disease or Condition Related Malnutrition Etiology related to GI dysfunction and cancer causing inadequate energy intake Signs/Symptoms as evidenced by 23% unintended wt loss and 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 5 Status Active Problem Recommendation Dietitian As medically able rec CECILY to Transitional with goalof Recommendations/ regular diet d/t signs and symptoms of malnutrition Changes As medically able, rec 4 oz ensure plus high protein 4x /day w/ medpass for increased nutrition if consumed- prefers chocolate flavor Lab / Micro Data 02/27/25 05:48 02/27/25 05:48 Labs: Laboratory Results - last 24 hr 02/27/25 05:48: WBC 4.4, RBC 2.81 L, Hgb 9.6 L, Hct 28.5 L, MCV 101.4 H, MCH 34.2 H, MCHC 33.7, RDWStd Deviation 58.7 H, RDW Coeff of Rosalee 16.0 H, Plt Count 90 L, MPV 9.2, Immature Gran % (Auto) 0.500, Neut % (Auto) 82.8 H, Lymph % (Auto) 6.8 L, [place] % (Auto) 9.5, Eos % (Auto) 0.2, Baso % (Auto) 0.2, Absolute Neuts (auto) 3.7, Absolute Lymphs (auto) 0.30 L, Nucleated RBC % 0, Platelet Estimate SLT DEC, Sodium 143, Potassium 4.3, Chloride 108, Carbon Dioxide 28.0, Anion Gap 7, BUN 25 H, Creatinine 1.43 H, Estim Creat Clear Calc 38.78 L, Est GFR (MDRD) Non-Af 56 L, BUN/Creatinine Ratio 17.6, Glucose 106 H, Calcium 8.6 Physical Exam Narrative Seen and examined NG tube was removed yesterday. Started on diet advanced to full liquid. Has a right-sided diverting jejunostomy. Discussed with nursing staff, 1000 mL bilious output sincemorning and urine output 225 mL from bilateral nephrostomy tubes. It was 1310 from duodenostomy yesterday Now, the patient has 2 colostomies and 2 bilateral nephrostomy tubes in each kidney Physical exam General: Alert, Oriented x3, Cooperative HEENT: Atraumatic, PERRLA, EOMI, Normocephalic. Oral: Oral mucosa dry no Gingival or Mucosal Lesions/ Ulcerations Neck: Supple, No JVD, Negative Carotid Bruits Chest wall/Lungs: Air entry diminished in bilateral lung bases. No crepitation/rhonchi Cardiovascular: Irregular rhythm normal S1,S2, systolic murmur Abdomen: Bowel Sounds sluggish, soft, Non Tender, colostomy. No significant fecal content in colostomy bag. Jejunostomy has bilious drainage, high output fistula : Bilateral nephrostomy tube,, urine output is increased. Clear in color no renal angle tenderness. No suprapubic tenderness. Extremities: No edema, Capillary Refill Less than 3 Seconds Skin: No rashes, No breakdown Musculoskeletal: No Tenderness to Palpation of Joints or Extremities Neurological: Cranial nerves II-XII grossly intact, DTR 2+/4. No acute focal neurological deficit. Psych/Mental Status: Flat affect Assessment & Plan Assessment/Plan (1) SBO (small bowel obstruction): (2) Malignant neoplasm of rectum: PLAN: Plan This 59-year-old gentleman is being admitted for small bowel obstruction. Patient has history of rectal cancer status post APR. He had chemotherapy and radiation 4 months ago and then last chemo about 10 days ago. 1. Small bowel obstruction with history of colorectal cancer status post APR and colostomy: Patientis being admitted Medr floor. IV fluid Ringer lactateat 100 mL/h. NG suction at low intermittentwall suction. Monitor bowel emptying. Surgery Dr. Chandler is consulted. CT abdomen images shows multiple distended small bowel loops with largest measuring 3.7 cm. 02/25: Small bowel series shows contrast in the stomach with collection in duodenum and proximal jejunum at 1 hour. Multiple dilated small bowel loops predominantly in the left side. As per surgeon, there is less chance of conservative management therefore surgery was recommended and patient agreed. P chelle for surgery today. Mild hypokalemia, electrolyte replacement ordered. 02/26: Patient had small bowel obstruction secondary to adhesions/radiation to the pelvis. Diagnostic laparoscopy converted to exploratory laparotomy with extensive lysis of adhesions and diverting loop jejunostomy on 02/25/2025. Jejunostomy is working good and had bags emptied twice with bilious content. 02/27: Discussed with the nursing staff. IV fluid replacement, Ringer lactate ordered; to be more than jejunostomy output and urine output. Urine output has increased due to IV fluid yesterday. Patient also on full liquid diet. Decreased lung sounds in lung bases therefore incentive spirometry reinforced 2. CA rectum: He follows Dr. Ho. Had C8 FOLFOX on 02/14/2025. Prior to that he finished chemotherapy on 08/13/2024 and radiation on 08/17/2024. 3. Bilateral hydronephrosis status post bilateral nephrostomy in September 2024 in [facility]: Urine in bilateral nephrostomy bag is dark-colored. IV fluid hydration. CT scan does not show hydronephrosis 4. History of DVT in the past: Unclear about it location but patient said it was in right thigh. Unclear about the reason why did not complete full course of anticoagulation but he said he had Lovenox and aspirin during hospitalizationin [facility]. 5. Irregular rhythm: Twelve-lead EKG shows sinus rhythm with PAC, LAD at 85 bpm.Denies history of A-fib. 6. Chronic anemia: Slight drop in hemoglobin from baseline 12.5 g%. 11.5/33.5%. Mild chronic thrombocytopenia platelet count around 110,000. 7. Mild INOCENCIA: Baseline creatinine around 1.33 in January 2025. Creatinine went from admission 1.39-1.67 therefore qualifies for INOCENCIA. IV fluid ordered, normal saline plus KCl ordered 150 mL/h to compensate jejunostomy loss, high output fistula. NG tube 650 mL. Jejunostomy 2560 mL. DVT prophylaxis, high risk: Lovenox 40 mg subcu daily Living will/advanced directive/end of life care: Patient does not have living will or advanced directive but in the process of making living well. After discussion of benefits/risks procedures involved with full code, DNR CC arrest and DNR CC, the patient and his opted for full code Patient does want artificial life support including intubation, tube feed, ventilator and/chest compression, central venous catheter, vasopressor and DC shock if needed Laboratory Results 02/24/25 07:35: Phosphorus 2.7, Magnesium 2.1 02/24/25 16:35: Urine Color Yellow, Urine Clarity Turbid, Urine pH 6.0, Ur Specific [place] 1.025, Urine Protein 500 H, Urine Glucose (UA) Normal, Urine Ketones 15 H, Urine Occult Blood 250 H, Urine Nitrite Negative, Urine Bilirubin Negative, Urine Urobilinogen Normal, Ur Leukocyte Esterase 500 H, Urine RBC 25- 50 SEEN, Urine WBC >100 SEEN, Ur Squamous Epith Cells 0 SEEN, Calcium Oxalate Crystal 1+, Urine Bacteria 2+, Urine Mucus 0 SEEN 02/25/25 06:40: WBC 8.3, RBC 3.70 L, Hgb 12.5 L, Hct 35.7 L, MCV 96.5 H, MCH 33.8 H, MCHC 35.0, RDWStd Deviation 52.5 H, RDW Coeff of Rosalee 15.2 H, Plt Count 113 L, MPV 9.4, Immature Gran % (Auto) 0.500, Neut % (Auto) 80.9 H, Lymph % (Auto) 6.2 L, Rawlins % (Auto) 11.9 H, Eos % (Auto) 0.1, Baso % (Auto) 0.4, Absolute Neuts (auto) 6.7, Absolute Lymphs (auto) 0.51 L, Nucleated RBC % 0, Sodium 142, Potassium 3.2 L, Chloride 99, Carbon Dioxide 29.5, Anion Gap 14, BUN21 H, Creatinine 1.51 H, Estim Creat Clear Calc 36.73 L, Est GFR (MDRD) Non- Af 53 L, BUN/Creatinine Ratio 13.7, [id number] H, Calcium 9.6 Clinical Impression(s) from Imaging Studies Abdomen CT 02/24/25 07:20 IMPRESSION: 1. Multiple distended small bowel loops with differential air-fluid levels measuring up to 3.7 cm, concerning for small bowel obstruction with possible transition in the right lower abdominal quadrant. 2. Bladder wall thickening which may be due to the decompressed state of the bladder or due to cystitis. 3. Small esophageal hiatal hernia. 4. Inguinal hernias, bilaterally. Reading Location: [facility] X-Ray 02/24/25 11:25 IMPRESSION: Tip of the nasogastric tube in the fundus of the stomach. Bilateral nephrostomy catheters. Bowel-gas pattern suggest adynamic/reflex ileus. Reading Location: [facility] Charges/Coding Visit Charges Inpatient E&M: 41323 Subs Hosp L2 02/27/25 1443 Cosigner Signature (if applicable): CC: ~ Signed ADDENDUM by Dr. Handy Royal MD on 02/27/25 at 1445 Addendum Jejunostomy output 1700 mL bilious fluid in last 24 hours 02/27/25 1445 Cosigner Signature (if applicable): cc: ~* Signed [facility]05-11-2025 Progress note [facility] Medical Records Department [address] [place] [address] Progress Note - Surgery 02/27/25 0837 MR#: [id number] Acct: [id number] Name: ANDREW POSADA Rep #:[id number] : 1965 59 From: Salena Harris PCP: Elly Bellamy NP-C Status:A DM IN Location: [facility] [id number] Subjective Subjective Patient seen and evaluated during AM rounds. Is found resting in bed. He reports his stamina is notwhat it used to be and he has only been up to the bathroom today. He denies any significant pain. He and his confirmed thatthere has been a lot of difficulty in keeping his new stoma pouched dueto leakage and high output. Mr. Posada confirms tolerance of a diet without nausea but generally no t finding it particularly appetizing. Objective Data Objective Data Vital Signs: Vital Signs Temp Pulse Resp BP Pulse Ox O2 Del Method O2 Flow Rate 98.1 F 70 16 134/89 H 98 Room Air 2 02/27/25 08:09 02/27/25 08:09 02/27/25 08:09 02/27/25 08:09 02/27/25 08:09 02/27/25 08:09 02/25/25 17:00 Oxygen Flow Rate (L/min) 2 Oxygen Delivery Method Room Air Weight: 108 lb 3.951 oz Body Mass Index (BMI) 16.4 Intake & Output: Intake and Output for Last 24 Hours 02/25/25 02/26/25 02/27/25 23:59 23:59 23:59 Intake Total 4400 / 4400 3033.33 / 3033.33 1700 / 1700 Output Total 2480 / 2480 2560 / 2560 775 / 775 Balance 1920 / 1920 473.33 / 473.33 925 / 925 Medical Nutrition Assessment Dietitian: Malnutrition Criteria Met Start: 02/25/25 11:58 Freq: Status: Active Protocol: Document 02/25/25 11:59 SLA (Rec: 02/25/25 11:59 SLA 10..25.7) Nutrition Malnutrition Evidence of Yes Malnutrition Exists Malnutrition (severe Chronic ): Evidenced By Suboptimal Energy Intake (Severe),Weight Loss (Severe), Physical Changes (Severe) Clinical Problem Chronic Disease or Condition Related Malnutrition Etiology related to GI dysfunction and cancer causing inadequate energy intake Signs/Symptoms as evidenced by 23% unintended wt loss and 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 5 Status Active Problem Recommendation Dietitian As medically able rec CECILY to Transitional with goalof Recommendations/ regular diet d/t signs and symptoms of malnutrition Changes As medically able, rec 4 oz ensure plus high protein 4x /day w/ medpass for increased nutrition if consumed- prefers chocolate flavor Lab / Micro Data 02/27/25 05:48 02/27/25 05:48 Labs: Laboratory Results - last 24 hr 02/27/25 05:48: WBC 4.4, RBC 2.81 L, Hgb 9.6 L, Hct 28.5 L, MCV 101.4 H, MCH 34.2 H, MCHC 33.7, RDWStd Deviation 58.7 H, RDW Coeff of Rosalee 16.0 H, Plt Count 90 L, MPV 9.2, Immature Gran % (Auto) 0.500, Neut % (Auto) 82.8 H, Lymph % (Auto) 6.8 L, Rawlins % (Auto) 9.5, Eos % (Auto) 0.2, Baso % (Auto) 0.2, Absolute Neuts (auto) 3.7, Absolute Lymphs (auto) 0.30 L, Nucleated RBC % 0, Platelet Estimate SLT DEC, Sodium 143, Potassium 4.3, Chloride 108, Carbon Dioxide 28.0, Anion Gap 7, BUN 25 H, Creatinine 1.43 H, Estim Creat Clear Calc 38.78 L, Est GFR (MDRD) Non-Af 56 L, BUN/Creatinine Ratio 17.6, Glucose 106 H, Calcium 8.6 Physical Exam Const oriented x3 and no apparent distress Constitutional Narrative: Frail-appearing GI GI Narrative: Nondistended, soft, minimally tender to palpation, right lower quadrant jejunostomy with appearanceof improved perfusion to mucosa and abundant thin bilious output to the ostomy appliance. Left lower quadrant colostomy with normal perfusion and no output to appliance. Midline there is a clean silver dressing. Assessment & Plan Assessment/Plan (1) SBO (small bowel obstruction): PLAN: The patient is a 59-year-old male with a history of rectal cancer status post a bowel resection with end colostomy. He is postoperative day 2 from diagnostic laparoscopy converted to exploratory laparotomy with loop jejunostomydue to intraoperative finding of plastered small bowel in the pelvis. Patient passed his clamp trial yesterday and was initiated on a clear liquid diet which he appears to have tolerated without difficulty. His new enterostomyis demonstrating rather high volume output (estimated at 1700 mL for the last 24hours by nursing). This is led to challenges in keeping it pouch. Currently has approximately a third of the appliance full. Patient and his are encouraged totry to empty more frequently and experiment with orientation by which the bag is positioned so as to minimize the weight and the likelihood for the adhesive to pull away from the stoma. Patient may benefit from Amaya's ringor similar device to help protect the peristomal skin and encourage drainage away from abdominal wall surface. To the send patient would benefit from evaluation by wound and ostomy nursing. Given tolerance of a clear liquid diet will advance to a full liquid diet. No plans to try to blockpatient's output down at this point but he may require this in the future. I will plan to replace some of his volume loss today via normal saline bolus. Creatinine is notably improved over yesterday.Pain control at this point appears to remain adequate and patient is encouraged to mobilize as he is able to given his numerous drains and lines. This is especially important as I had to hold his Lovenox given a progressive downtrend of his hemoglobin. Salena Paredes MD General Surgery Endocrine Surgery Pager: [facility] [address] [place] [address], [address] [place] [address] Office: [phone] Charges/Coding Visit Charges Inpatient E&M: 99652 Subs Hosp L2 02/27/25 1343 Cosigner Signature (if applicable): CC: ~ Signed [facility]05-10-2025 Progress note Author Handy Royal [facility] Note Date/Time February 26, 2025 12:38 pm [facility] Medical Records Department [address] [place] [id number] Progress Note - Hospitalist 02/26/25 1231 MR#: [id number] Acct: [id number] Name: ANDREW POSADA Yamila Rep #:[id number] : 1965 59 From: Handy Lele M D PCP: Care Physician,No Primary Status :ADM IN Location: [facility] [id number] Reason for Visit Reason for Visit: Diagnoses Malignant neoplasm of rectum (02/24/25) Unspecified intestinal obstruction, unspecified as to partial versus complete obstruction (02/24/25) Objective Data Objective Data Vital Signs: Vital Signs Temp Pulse Resp BP Pulse Ox O2 Del Method O2 Flow Rate 98 F 97 18 150/90 H 96 Room Air 2 02/26/25 08:58 02/26/25 08:58 02/26/25 08:58 02/26/25 08:58 02/26/25 08:58 02/26/25 08:58 02/25/25 17:00 Oxygen Flow Rate (L/min) 2 Oxygen Delivery Method Room Air Weight: 108 lb 11.006 oz Body Mass Index (BMI) 16.5 Intake & Output: Intake and Output for Last 24 Hours 02/24/25 02/25/25 02/26/25 23:59 23:59 23:59 Intake Total 1569.58 / 1629.58 4400 / 4400 1410 / 1410 Output Total 200 / 800 2480 / 2480 1635 / 1635 Balance 1369.58 / 829.58 1920 / 1920 -225 / -225 Medical Nutrition Assessment Dietitian: Malnutrition Criteria Met Start: 02/25/25 11:58 Freq: Status: Active Protocol: Document 02/25/25 11:59 SLA (Rec: 02/25/25 11:59 SLA .25.7) Nutrition Malnutrition Evidence of Yes Malnutrition Exists Malnutrition (severe Chronic ): Evidenced By Suboptimal Energy Intake (Severe),Weight Loss (Severe), Physical Changes (Severe) Clinical Problem Chronic Disease or Condition Related Malnutrition Etiology related to GI dysfunction and cancer causing inadequate energy intake Signs/Symptoms as evidenced by 23% unintended wt loss and 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 5 Status Active Problem Recommendation Dietitian As medically able rec CECILY to Transitional with goalof Recommendations/ regular diet d/t signs and symptoms of malnutrition Changes As medically able, rec 4 oz ensure plus high protein 4x /day w/ medpass for increased nutrition if consumed- prefers chocolate flavor Lab / Micro Data 02/26/25 06:42 02/26/25 06:42 Labs: Laboratory Results - last 24 hr 02/26/25 06:42: WBC 6.3, RBC 3.41 L, Hgb 11.5 L, Hct 33.5 L, MCV 98.2 H, MCH 33.7 H, MCHC 34.3, RDW Std Deviation 55.8 H, RDW Coeff of Rosalee 16.0 H, Plt Count 102 L, MPV 9.7, Immature Gran % (Auto) 0.200, Neut % (Auto) 87.7 H, Lymph % (Auto) 3.2 L, [place] % (Auto) 8.7, Eos % (Auto) 0.0, Baso % (Auto) 0.2, Absolute Neuts (auto) 5.6, Absolute Lymphs (auto) 0.20 L, Nucleated RBC % 0, Sodium 143, Potassium 3.6, Chloride 104, Carbon Dioxide 28.1, Anion Gap 11, BUN 25 H, Creatinine 1.67 H, Estim Creat Clear Calc 33.21 L, Est GFR (MDRD) Non-Af 47 L, BUN/Creatinine Ratio 14.9, Glucose 158 H, Calcium 8.7 Radiography Diagnostic Testing: Radiology Impression [facility] X-Ray 02/25/25 16:45 IMPRESSION: See above Reading Location: [facility] Physical Exam Narrative Seen and examined Patient still has NG tube. Patient had surgery yesterday. Has a right-sided diverting jejunostomy. Colostomy bags have been emptied twice. Now, the patient has 2 colostomies and 2 bilateral nephrostomy tubes in each kidney Physical exam General: Alert, Oriented x3, Cooperative HEENT: Atraumatic, PERRLA, EOMI, Normocephalic. Oral: Oral mucosa dry no Gingival or Mucosal Lesions/ Ulcerations Neck: Supple, No JVD, Negative Carotid Bruits Chest wall/Lungs: Air entry diminished in bilateral lung bases. No crepitation/rhonchi Cardiovascular: Irregular rhythm normal S1,S2, systolic murmur Abdomen: Bowel Sounds hyper, soft, Non Tender, colostomy. No significant fecal content in colostomy bag. Jejunostomy has bilious drainage emptied twice. : Bilateral nephrostomy tube, dark urine. No renal angle tenderness. No suprapubic tenderness. Extremities: No edema, Capillary Refill Less than 3 Seconds Skin: No rashes, No breakdown Musculoskeletal: No Tenderness to Palpation of Joints or Extremities Neurological: Cranial nerves II-XII grossly intact, DTR 2+/4. No acute focal neurological deficit. Psych/Mental Status: Flat affect Assessment & Plan Assessment/Plan (1) SBO (small bowel obstruction): (2) Malignant neoplasm of rectum: PLAN: Plan This 59-year-old gentleman is being admitted for small bowel obstruction. Patient has history of rectal cancer status post APR. He had chemotherapy and radiation 4 months ago and then last chemo about 10 days ago. 1. Small bowel obstruction with history of colorectal cancer status post APR and colostomy: Patient is being admitted MedSurg floor. IV fluid Ringer lactateat 100 mL/h. NG suction at low intermittent wall suction. Monitor bowel emptying. Surgery Dr. Chandler is consulted. CT abdomen images shows multiple distended small bowel loops with largest measuring 3.7 cm. 02/25: Small bowel series shows contrast in the stomach with collection in duodenum and proximal jejunum at 1 hour. Multiple dilated small bowel loops predominantly in the left side. As per surgeon, there is less chance of conservative management therefore surgery was recommended and patient agreed. Plan for surgery today. Mild hypokalemia, electrolyte replacement ordered. 02/26: Patient had small bowel obstruction secondary to adhesions/radiation to the pelvis. Diagnostic laparoscopy converted to exploratory laparotomy with extensive lysis of adhesions and diverting loop jejunostomy on 02/25/2025. Jejunostomy is working good and had bags emptied twice with bilious content. 2. CA rectum: He follows Dr. Ho. Had C8 FOLFOX on 02/14/2025. Prior to that he finished chemotherapy on 08/13/2024 and radiation on 08/17/2024. 3. Bilateral hydronephrosis status post bilateral nephrostomy in September 2024 in [facility]: Urine in bilateral nephrostomy bag is dark-colored. IV fluid hydration. CT scan does not show hydronephrosis 4. History of DVT in the past: Unclear about it location but patient said it was in right thigh. Unclear about the reason why did not complete full course of anticoagulation but he said he had Lovenox and aspirin during hospitalizationin [facility]. 5. Irregular rhythm: Twelve-lead EKG shows sinus rhythm with PAC, LAD at 85 bpm.Denies history of A-fib. 6. Chronic anemia: Slight drop in hemoglobin from baseline 12.5 g%. 11.5/33.5%. Mild chronic thrombocytopenia platelet count around 110,000. 7. Mild INOCENCIA: Baseline creatinine around 1.33 in January 2025. Creatinine went from admission 1.39-1.67 therefore qualifies for INOCENCIA. IV fluid ordered, normal saline plus KCl ordered 150 mL/h to compensate jejunostomy loss, high output fistula. NG tube 650 mL. Jejunostomy 2560 mL. DVT prophylaxis, high risk: Lovenox 40 mg subcu daily Living will/advanced directive/end of life care: Patient does not have living will or advanced directive but in the process of making living well. After discussion of benefits/risks procedures involved with full code, DNR CC arrest and DNR CC, the patient and his opted for full code Patient does want artificial life support including intubation, tube feed, ventilator and/chest compression, central venous catheter, vasopressor and DC shock if needed Total time spent in [id number] encounter in discussion of advanced directive 17 minutes. Laboratory Results 02/24/25 07:35: Phosphorus 2.7, Magnesium 2.1 02/24/25 16:35: Urine Color Yellow, Urine Clarity Turbid, Urine pH 6.0, Ur Specific [place] 1.025, Urine Protein 500 H, Urine Glucose (UA) Normal, Urine Ketones 15 H, Urine Occult Blood 250 H, Urine Nitrite Negative, Urine Bilirubin Negative, Urine Urobilinogen Normal, Ur Leukocyte Esterase 500 H, Urine RBC 25-50 SEEN, Urine WBC >100 SEEN, Ur Squamous Epith Cells 0 SEEN, Calcium Oxalate Crystal 1+, Urine Bacteria 2+, Urine Mucus 0 SEEN 02/25/25 06:40: WBC 8.3, RBC 3.70 L, Hgb 12.5 L, Hct 35.7 L, MCV 96.5 H, MCH 33.8 H, MCHC 35.0, RDW Std Deviation 52.5 H, RDW Coeff of Rosalee 15.2 H, Plt Count 113 L, MPV 9.4, Immature Gran % (Auto) 0.500, Neut % (Auto) 80.9 H, Lymph % (Auto) 6.2 L, [place] % (Auto) 11.9 H, Eos % (Auto) 0.1, Baso % (Auto) 0.4, Absolute Neuts (auto) 6.7, Absolute Lymphs (auto) 0.51 L, Nucleated RBC % 0, Sodium 142, Potassium 3.2 L, Chloride 99, Carbon Dioxide 29.5, Anion Gap 14, BUN21 H, Creatinine 1.51 H, Estim Creat Clear Calc 36.73 L, Est GFR (MDRD) Non-Af 53 L, BUN/Creatinine Ratio 13.7, Glucose 121 H, Calcium 9.6 Clinical Impression(s) from Imaging Studies Abdomen CT 02/24/25 07:20 IMPRESSION: 1. Multiple distended small bowel loops with differential air-fluid levels measuring up to 3.7 cm, concerning for small bowel obstruction with possible transition in the right lower abdominal quadrant. 2. Bladder wall thickening which may be due to the decompressed state of the bladder or due to cystitis. 3. Small esophageal hiatal hernia. 4. Inguinal hernias, bilaterally. Reading Location: [facility] X-Ray 02/24/25 11:25 IMPRESSION: Tip of the nasogastric tube in the fundus of the stomach. Bilateral nephrostomy catheters. Bowel-gas pattern suggest adynamic/reflex ileus. Reading Location: [facility] Charges/Coding Visit Charges Inpatient E&M: 39679 Subs Hosp L2 02/26/25 1238 <Electronically signed by Handy Royal MD> Cosigner Signature (if applicable): CC: ~ Signed [facility] Work Phone: 1(406) 945-243005-10-2025 Progress note Author Salena Paredes [facility] Note Date/Time February 26, 2025 11:00 am [facility] Medical Records Department [address] [place] [address] Progress Note - Surgery 02/26/25 1021 MR#: [id number] Acct: [id number] Name: ANDREW POSADA Yamila Rep #:[id number] : 1965 59 From: Salena Harris PCP: Care Physician,No Primary Status :ADM IN Location: [facility] [id number] Subjective Subjective Patient seen and examined during AM rounds. He is found resting in bed. He reports that his pain is manageable. He has number of questions related to his procedure which were largely deferred to the operative team. He states he has aslight appetite and denies any nausea or bloating. He reports that nursing has been concerned about the appearance of his ostomy. Objective Data Objective Data Vital Signs: Vital Signs Temp Pulse Resp BP Pulse Ox O2 Del Method O2 Flow Rate 98 F 97 18 150/90 H 96 Room Air 2 02/26/25 08:58 02/26/25 08:58 02/26/25 08:58 02/26/25 08:58 02/26/25 08:58 02/26/25 08:58 02/25/25 17:00 Oxygen Flow Rate (L/min) 2 Oxygen Delivery Method Room Air Weight: 108 lb 11.006 oz Body Mass Index (BMI) 16.5 Intake & Output: Intake and Output for Last 24 Hours 02/24/25 02/25/25 02/26/25 23:59 23:59 23:59 Intake Total 1569.58 / 1629.58 4400 / 4400 1410 / 1410 Output Total 200 / 800 2480 / 2480 1185 / 1185 Balance 1369.58 / 829.58 1920 / 1920 225 / 225 Medical Nutrition Assessment Dietitian: Malnutrition Criteria Met Start: 02/25/25 11:58 Freq: Status: Active Protocol: Document 02/25/25 11:59 SLA (Rec: 02/25/25 11:59 SLA ..25.7) Nutrition Malnutrition Evidence of Yes Malnutrition Exists Malnutrition (severe Chronic ): Evidenced By Suboptimal Energy Intake (Severe),Weight Loss (Severe), Physical Changes (Severe) Clinical Problem Chronic Disease or Condition Related Malnutrition Etiology related to GI dysfunction and cancer causing inadequate energy intake Signs/Symptoms as evidenced by 23% unintended wt loss and 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 5 Status Active Problem Recommendation Dietitian As medically able rec CECILY to Transitional with goalof Recommendations/ regular diet d/t signs and symptoms of malnutrition Changes As medically able, rec 4 oz ensure plus high protein 4x /day w/ medpass for increased nutrition if consumed- prefers chocolate flavor Lab / Micro Data 02/26/25 06:42 02/26/25 06:42 Labs: Laboratory Results - last 24 hr 02/26/25 06:42: WBC 6.3, RBC 3.41 L, Hgb 11.5 L, Hct 33.5 L, MCV 98.2 H, MCH 33.7 H, MCHC 34.3, RDW Std Deviation 55.8 H, RDW Coeff of Rosalee 16.0 H, Plt Count 102 L, MPV 9.7, Immature Gran % (Auto) 0.200, Neut % (Auto) 87.7 H, Lymph % (Auto) 3.2 L, [place] % (Auto) 8.7, Eos % (Auto) 0.0, Baso % (Auto) 0.2, Absolute Neuts (auto) 5.6, Absolute Lymphs (auto) 0.20 L, Nucleated RBC % 0, Sodium 143, Potassium 3.6, Chloride 104, Carbon Dioxide 28.1, Anion Gap 11, BUN 25 H, Creatinine 1.67 H, Estim Creat Clear Calc 33.21 L, Est GFR (MDRD) Non-Af 47 L, BUN/Creatinine Ratio 14.9, Glucose 158 H, Calcium 8.7 Radiography Diagnostic Testing: Radiology Impression Small Bowel X-Ray 02/25/25 08:25 IMPRESSION: On initial imaging, nasogastric tube position is unchanged. Bilateral nephrostomy tubes are unchanged in position. Multiple dilated small bowel loops are seen throughout the abdomen, predominantly centrally into the left; this is consistent with small-bowel obstruction or adynamic ileus. Some contrast is seen extending to the proximal jejunum, at the 1 hour film. Following this, the patient reportedly vomited the remaining gastric contrast. The study was then terminated by Dr. Chandler. Reading Location: [facility] X-Ray 02/25/25 16:45 IMPRESSION: See above Reading Location: [facility] Physical Exam Const oriented x3 and no apparent distress Resp normal respiratory effort GI GI Narrative: Nasogastric tube with aspirate of a modest amount of watery gastric contents that are nonbilious. Abdomen is nondistended. Right lower quadrant ileostomy is in mild ischemic appearance but mucosa appears viable. There is expected watery thin output to the appliance. The patient's colostomy remains healthy and well-perfused but there is no output in that appliance. Narrative: Urinary collection bags for PERC nephrostomy tubes are examined in the out bloodon the right side appears slightly brown in character Assessment & Plan Assessment/Plan (1) SBO (small bowel obstruction): PLAN: The patient is a 59-year-old male with a history of rectal cancer status post a bowel resection with end colostomy. He is postoperative day 1 from diagnostic laparoscopy converted to exploratory laparotomy with loop jejunostomydue to intraoperative finding of plastered small bowel in the pelvis. Patient has had output via his new enterostomy and minimal output from his nasogastric tube. Still, given his presentation with obstruction I would like to proceed cautiously and have recommended a clamp trial. Patient was carefullyinstructed on the process for this clamp trial and the need to minimize the riskfor aspiration. We will await the results of his return to suction and tentatively plan to pull his nasogastric tube and begin a diet. Pain control atthis point appears adequate and patient is encouraged to mobilize as he is able to given his numerous drains and lines. Will closely watch his blood pressure to try to ensure that his mildly ischemic stoma is optimized. Lastly, I continued patient's IV fluids for the interim as his creatinine experiences slight increase from yesterday and he is not yet approved for a liquid diet. Salena Paredes MD General Surgery Endocrine Surgery Pager: [facility] [address] [place] [address], [address] [place] [address] Office: [phone] Charges/Coding Visit Charges Inpatient E&M: 54943 Subs Hosp L2 02/26/25 1100 <Electronically signed by Salena Paredes MD> Cosigner Signature (if applicable): CC: ~ Signed [facility] Work Phone: 1(805) 778-660605-10-2025 Progress note [facility] Medical Records Department [address] [place] [address] Progress Note - Hospitalist 02/26/25 1231 MR#: [id number] Acct: [id number] Name: ANDRWE POSADA Rep #:[id number] : 1965 59 From: Handy Harris PCP: Care Physician,No Primary Status :ADM IN Location: [facility] [place]-5 Reason for Visit Reason for Visit: Diagnoses Malignant neoplasm of rectum (02/24/25) Unspecified intestinal obstruction, unspecified as to partial versus complete obstruction (02/24/25) Objective Data Objective Data Vital Signs: Vital Signs Temp Pulse Resp BP Pulse Ox O2 Del Method O2 Flow Rate 98 F 97 18 150/90 H 96 Room Air 2 02/26/25 08:58 02/26/25 08:58 02/26/25 08:58 02/26/25 08:58 02/26/25 08:58 02/26/25 08:58 02/25/25 17:00 Oxygen Flow Rate (L/min) 2 Oxygen Delivery Method Room Air Weight: 108 lb 11.006 oz Body Mass Index (BMI) 16.5 Intake & Output: Intake and Output for Last 24 Hours 02/24/25 02/25/25 02/26/25 23:59 23:59 23:59 Intake Total 1569.58 / 1629.58 4400 / 4400 1410 / 1410 Output Total 200 / 800 2480 / 2480 1635 / 1635 Balance 1369.58 / 829.58 1920 / 1920 -225 / -225 Medical Nutrition Assessment Dietitian: Malnutrition Criteria Met Start: 02/25/25 11:58 Freq: Status: Active Protocol: Document 02/25/25 11:59 SLA (Rec: 02/25/25 11:59 SLA [id number]) Nutrition Malnutrition Evidence of Yes Malnutrition Exists Malnutrition (severe Chronic ): Evidenced By Suboptimal Energy Intake (Severe),Weight Loss (Severe), Physical Changes (Severe) Clinical Problem Chronic Disease or Condition Related Malnutrition Etiology related to GI dysfunction and cancer causing inadequate energy intake Signs/Symptoms as evidenced by 23% unintended wt loss and 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 5 Status Active Problem Recommendation Dietitian As medically able rec CECILY to Transitional with goalof Recommendations/ regular diet d/t signs and symptoms of malnutrition Changes As medically able, rec 4 oz ensure plus high protein 4x /day w/ medpass for increased nutrition if consumed- prefers chocolate flavor Lab / Micro Data 02/26/25 06:42 02/26/25 06:42 Labs: Laboratory Results - last 24 hr 02/26/25 06:42: WBC 6.3, RBC 3.41 L, Hgb 11.5 L, Hct 33.5 L, MCV 98.2 H, MCH 33.7 H, MCHC 34.3, RDWStd Deviation 55.8 H, RDW Coeff of Rosalee 16.0 H, Plt Count 102 L, MPV 9.7, Immature Gran % (Auto) 0.200, Neut % (Auto) 87.7 H, Lymph % (Auto) 3.2 L, Rawlins % (Auto) 8.7, Eos % (Auto) 0.0, Baso % (Auto) 0.2, Absolute Neuts (auto) 5.6, Absolute Lymphs (auto) 0.20 L, Nucleated RBC % 0, Sodium 143, Potassium 3.6, Chloride 104, Carbon Dioxide 28.1, Anion Gap 11, BUN 25 H, Creatinine 1.67 H, Estim Creat Clear Calc 33.21 L, Est GFR (MDRD) Non-Af 47 L, BUN/Creatinine Ratio 14.9, Glucose 158 H, Calcium 8.7 Radiography Diagnostic Testing: Radiology Impression KUB X-Ray 02/25/25 16:45 IMPRESSION: See above Reading [facility] Physical Exam Narrative Seen and examined Patient still has NG tube. Patient had surgery yesterday. Has a right-sided diverting jejunostomy. Colostomy bags have been emptied twice. Now, the patient has 2 colostomies and 2 bilateral nephrostomy tubes in each kidney Physical exam General: Alert, Oriented x3, Cooperative HEENT: Atraumatic, PERRLA, EOMI, Normocephalic. Oral: Oral mucosa dry no Gingival or Mucosal Lesions/ Ulcerations Neck: Supple, No JVD, Negative Carotid Bruits Chest wall/Lungs: Air entry diminished in bilateral lung bases. No crepitation/rhonchi Cardiovascular: Irregular rhythm normal S1,S2, systolic murmur Abdomen: Bowel Sounds hyper, soft, Non Tender, colostomy. No significant fecal content in colostomybag. Jejunostomy has bilious drainage emptied twice. : Bilateral nephrostomy tube, dark urine. No renal angle tenderness. No suprapubic tenderness. Extremities: No edema, Capillary Refill Less than 3 Seconds Skin: No rashes, No breakdown Musculoskeletal: No Tenderness to Palpation of Joints or Extremities Neurological: Cranial nerves II-XII grossly intact, DTR 2+/4. No acute focal neurological deficit. Psych/Mental Status: Flat affect Assessment & Plan Assessment/Plan (1) SBO (small bowel obstruction): (2) Malignant neoplasm of rectum: PLAN: Plan This 59-year-old gentleman is being admitted for small bowel obstruction. Patient has history of rectal cancer status post APR. He had chemotherapy and radiation 4 months ago and then last chemo about 10 days ago. 1. Small bowel obstruction with history of colorectal cancer status post APR and colostomy: Patientis being admitted Medr floor. IV fluid Ringer lactateat 100 mL/h. NG suction at low intermittentwall suction. Monitor bowel emptying. Surgery Dr. Chandler is consulted. CT abdomen images shows multiple distended small bowel loops with largest measuring 3.7 cm. 02/25: Small bowel series shows contrast in the stomach with collection in duodenum and proximal jejunum at 1 hour. Multiple dilated small bowel loops predominantly in the left side. As per surgeon, there is less chance of conservative management therefore surgery was recommended and patient agreed. P chelle for surgery today. Mild hypokalemia, electrolyte replacement ordered. 02/26: Patient had small bowel obstruction secondary to adhesions/radiation to the pelvis. Diagnostic laparoscopy converted to exploratory laparotomy with extensive lysis of adhesions and diverting loop jejunostomy on 02/25/2025. Jejunostomy is working good and had bags emptied twice with bilious content. 2. CA rectum: He follows Dr. Ho. Had C8 FOLFOX on 02/14/2025. Prior to that he finished chemotherapy on 08/13/2024 and radiation on 08/17/2024. 3. Bilateral hydronephrosis status post bilateral nephrostomy in September 2024 in [facility]: Urine in bilateral nephrostomy bag is dark-colored. IV fluid hydration. CT scan does not show hydronephrosis 4. History of DVT in the past: Unclear about it location but patient said it was in right thigh. Unclear about the reason why did not complete full course of anticoagulation but he said he had Lovenox and aspirin during hospitalizationin [facility]. 5. Irregular rhythm: Twelve-lead EKG shows sinus rhythm with PAC, LAD at 85 bpm.Denies history of A-fib. 6. Chronic anemia: Slight drop in hemoglobin from baseline 12.5 g%. 11.5/33.5%. Mild chronic thrombocytopenia platelet count around 110,000. 7. Mild INOCENCIA: Baseline creatinine around 1.33 in January 2025. Creatinine went from admission 1.39-1.67 therefore qualifies for INOCENCIA. IV fluid ordered, normal saline plus KCl ordered 150 mL/h to compensate jejunostomy loss, high output fistula. NG tube 650 mL. Jejunostomy 2560 mL. DVT prophylaxis, high risk: Lovenox 40 mg subcu daily Living will/advanced directive/end of life care: Patient does not have living will or advanced directive but in the process of making living well. After discussion of benefits/risks procedures involved with full code, DNR CC arrest and DNR CC, the patient and his opted for full code Patient does want artificial life support including intubation, tube feed, ventilator and/chest compression, central venous catheter, vasopressor and DC shock if needed Total time spent in [id number] encounter in discussion of advanced directive 17 minutes. Laboratory Results 02/24/25 07:35: Phosphorus 2.7, Magnesium 2.1 02/24/25 16:35: Urine Color Yellow, Urine Clarity Turbid, Urine pH 6.0, Ur Specific [place] 1.025, Urine Protein 500 H, Urine Glucose (UA) Normal, Urine Ketones 15 H, Urine Occult Blood 250 H, Urine Nitrite Negative, Urine Bilirubin Negative, Urine Urobilinogen Normal, Ur Leukocyte Esterase 500 H, Urine RBC 25- 50 SEEN, Urine WBC >100 SEEN, Ur Squamous Epith Cells 0 SEEN, Calcium Oxalate Crystal 1+, Urine Bacteria 2+, Urine Mucus 0 SEEN 02/25/25 06:40: WBC 8.3, RBC 3.70 L, Hgb 12.5 L, Hct 35.7 L, MCV 96.5 H, MCH 33.8 H, MCHC 35.0, RDWStd Deviation 52.5 H, RDW Coeff of Rosalee 15.2 H, Plt Count 113 L, MPV 9.4, Immature Gran % (Auto) 0.500, Neut % (Auto) 80.9 H, Lymph % (Auto) 6.2 L, Rawlins % (Auto) 11.9 H, Eos % (Auto) 0.1, Baso % (Auto) 0.4, Absolute Neuts (auto) 6.7, Absolute Lymphs (auto) 0.51 L, Nucleated RBC % 0, Sodium 142, Potassium 3.2 L, Chloride 99, Carbon Dioxide 29.5, Anion Gap 14, BUN21 H, Creatinine 1.51 H, Estim Creat Clear Calc 36.73 L, Est GFR (MDRD) Non- Af 53 L, BUN/Creatinine Ratio 13.7, Fovthri252 H, Calcium 9.6 Clinical Impression(s) from Imaging Studies Abdomen CT 02/24/25 07:20 IMPRESSION: 1. Multiple distended small bowel loops with differential air-fluid levels measuring up to 3.7 cm, concerning for small bowel obstruction with possible transition in the right lower abdominal quadrant. 2. Bladder wall thickening which may be due to the decompressed state of the bladder or due to cystitis. 3. Small esophageal hiatal hernia. 4. Inguinal hernias, bilaterally. Reading Location: [facility] KUB X-Ray 02/24/25 11:25 IMPRESSION: Tip of the nasogastric tube in the fundus of the stomach. Bilateral nephrostomy catheters. Bowel-gas pattern suggest adynamic/reflex ileus. Reading Location: [facility] Charges/Coding Visit Charges Inpatient E&M: 14372 Subs Hosp L2 02/26/25 1238 Cosigner Signature (if applicable): CC: ~ Signed [facility]05-10-2025 Progress note [facility] Medical Records Department [address] [place] [address] Progress Note - Surgery 02/26/25 1021 MR#: [id number] Acct: [id number] Name: ANDREW POSADA Rep #:[id number] : 1965 59 From: Salena Harris PCP: Care Physician,No Primary Status :ADM IN Location: [facility] [place]170-4 Subjective Subjective Patient seen and examined during AM rounds. He is found resting in bed. He reports that his pain ismanageable. He has number of questions related to his procedure which were largely deferred to the operative team. He states he has aslight appetite and denies any nausea or bloating. He reports thatnursing has been concerned about the appearance of his ostomy. Objective Data Objective Data Vital Signs: Vital Signs Temp Pulse Resp BP Pulse Ox O2 Del Method O2 Flow Rate 98 F 97 18 150/90 H 96 Room Air 2 02/26/25 08:58 02/26/25 08:58 02/26/25 08:58 02/26/25 08:58 02/26/25 08:58 02/26/25 08:58 02/25/25 17:00 Oxygen Flow Rate (L/min) 2 Oxygen Delivery Method Room Air Weight: 108 lb 11.006 oz Body Mass Index (BMI) 16.5 Intake & Output: Intake and Output for Last 24 Hours 02/24/25 02/25/25 02/26/25 23:59 23:59 23:59 Intake Total 1569.58 / 1629.58 4400 / 4400 1410 / 1410 Output Total 200 / 800 2480 / 2480 1185 / 1185 Balance 1369.58 / 829.58 1920 / 1920 225 / 225 Medical Nutrition Assessment Dietitian: Malnutrition Criteria Met Start: 02/25/25 11:58 Freq: Status: Active Protocol: Document 02/25/25 11:59 SLA (Rec: 02/25/25 11:59 SLA 07.29.25.7) Nutrition Malnutrition Evidence of Yes Malnutrition Exists Malnutrition (severe Chronic ): Evidenced By Suboptimal Energy Intake (Severe),Weight Loss (Severe), Physical Changes (Severe) Clinical Problem Chronic Disease or Condition Related Malnutrition Etiology related to GI dysfunction and cancer causing inadequate energy intake Signs/Symptoms as evidenced by 23% unintended wt loss and 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 5 Status Active Problem Recommendation Dietitian As medically able rec CECILY to Transitional with goalof Recommendations/ regular diet d/t signs and symptoms of malnutrition Changes As medically able, rec 4 oz ensure plus high protein 4x /day w/ medpass for increased nutrition if consumed- prefers chocolate flavor Lab / Micro Data 02/26/25 06:42 02/26/25 06:42 Labs: Laboratory Results - last 24 hr 02/26/25 06:42: WBC 6.3, RBC 3.41 L, Hgb 11.5 L, Hct 33.5 L, MCV 98.2 H, MCH 33.7 H, MCHC 34.3, RDWStd Deviation 55.8 H, RDW Coeff of Rosalee 16.0 H, Plt Count 102 L, MPV 9.7, Immature Gran % (Auto) 0.200, Neut % (Auto) 87.7 H, Lymph % (Auto) 3.2 L, Rawlins % (Auto) 8.7, Eos % (Auto) 0.0, Baso % (Auto) 0.2, Absolute Neuts (auto) 5.6, Absolute Lymphs (auto) 0.20 L, Nucleated RBC % 0, Sodium 143, Potassium 3.6, Chloride 104, Carbon Dioxide 28.1, Anion Gap 11, BUN 25 H, Creatinine 1.67 H, Estim Creat Clear Calc 33.21 L, Est GFR (MDRD) Non-Af 47 L, BUN/Creatinine Ratio 14.9, Glucose 158 H, Calcium 8.7 Radiography Diagnostic Testing: Radiology Impression Small Bowel X-Ray 02/25/25 08:25 IMPRESSION: On initial imaging, nasogastric tube position is unchanged. Bilateral nephrostomy tubes are unchanged in position. Multiple dilated small bowel loops are seen throughout the abdomen, predominantly centrally into the left; this is consistent with small-bowel obstruction or adynamic ileus. Some contrast is seen extending to the proximal jejunum, at the 1 hour film. Following this, the patient reportedly vomited the remaining gastric contrast. The study was then terminated by Dr. Chandler. Reading Location: [facility] KUB X-Ray 02/25/25 16:45 IMPRESSION: See above Reading Location: [facility] Physical Exam Const oriented x3 and no apparent distress Resp normal respiratory effort GI GI Narrative: Nasogastric tube with aspirate of a modest amount of watery gastric contents that are nonbilious. Abdomen is nondistended. Right lower quadrant ileostomy is in mild ischemic appearance but mucosa appears viable. There is expected watery thin output to the appliance. The patient's colostomy remains healthy and well- perfused but there is no output in that appliance. Narrative: Urinary collection bags for PERC nephrostomy tubes are examined in the out bloodon the right side appears slightly brown in character Assessment & Plan Assessment/Plan (1) SBO (small bowel obstruction): PLAN: The patient is a 59-year-old male with a history of rectal cancer status post a bowel resection with end colostomy. He is postoperative day 1 from diagnostic laparoscopy converted to exploratory laparotomy with loop jejunostomydue to intraoperative finding of plastered small bowel in the pelvis. Patient has had output via his new enterostomy and minimal output from his nasogastric tube. Still,given his presentation with obstruction I would like to proceed cautiously and have recommended a clamp trial. Patient was carefullyinstructed on the process for this clamp trial and the need to minimize the riskfor aspiration. We will await the results of his return to suction and tentatively planto pull his nasogastric tube and begin a diet. Pain control atthis point appears adequate and patient is encouraged to mobilize as he is able to given his numerous drains and lines. Will closely watch his blood pressure to try to ensure that his mildly ischemic stoma is optimized. Lastly, I continued patient's IV fluids for the interim as his creatinine experiences slight increase from yesterday and he is not yet approved for a liquid diet. Salena Paredes MD General Surgery Endocrine Surgery Pager: [facility] [address] [place] [address], [address] [place] [address] Office: [phone] Charges/Coding Visit Charges Inpatient E&M: 67010 Subs Hosp L2 02/26/25 1100 Cosigner Signature (if applicable): CC: ~ Signed [facility]05-09-2025 Consult note Author Forrest Lancaster [facility] Note Date/Time February 25, 2025 5:25pm [facility] Medical Records Department [address] [place] [address] Anesthesia Postop Eval II 02/25/25 1725 MR#: [id number] Acct: [id number] Name: ANDREW POSADA Rep #:[id number] : 1965 59 From: Forrest Lancaster MD PCP: Care Physician,No Primary Status :ADM IN Y Race: C Location: [address] Anesthesia Postop Eval I Sum Postop Eval Completion status Anesthesia document: Postop Eval 1 completed: Yes Anesthesia Postop Eval I Summary Anesthesia Postop Eval I Summary: Anesthesia Postop Eval I: Assessment Summary 3 Airway patent Yes 02/25/25 16:39 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 Spontaneous unlabored Yes 02/25/25 16:39 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 respirations Mental status Asleep 02/25/25 16:39 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 nausea No 02/25/25 16:39 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 Vomiting No 02/25/25 16:39 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 Anesthesia Postop Eval I: Fluid Summary Crystalloid volume administer 2,400 02/25/25 16:39 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 (ml) Colloids volume administered ( ml) Blood Product volume administered (ml) Total IV fluid infused 2,400 02/25/25 16:39 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 Anesthesia Postop Eval I: Summary Notes Anesthesia Complication No 02/25/25 16:39 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 Anesthesia Complication Comment: Post-operative progress note Anesthesia: Postop Eval II Evaluation Mental status: Awake and Calm Pain Level: 5 nausea: No Vomiting: No 02/25/25 1725 <Electronically signed by Forrest Belcher D> Date _ Forrest Lancaster MD Cosigner Signature: Date CC: ~ Signed [facility] Work Phone: [phone]) 762-357605-09-2025 Consult note Author Donnell Carballo [facility] Note Date/Time February 25, 2025 4:39pm [facility] Medical Records Department [address] [place] [address] Anesthesia Postop Eval I 02/25/25 1639 MR#: [id number] Acct: [id number] Name: ANDREW POSADA Rep #:[id number] : 1965 59 From: Donnell Carballo CRNA PCP: Care Physician,No Primary Status :ADM IN Y Race: C [place] [facility]324 -1 Anesthesia: Postop Eval I Current Vital Signs Temperature: 97.1 F Pulse Rate: 67 Blood Pressure: 163/97 Respiratory Rate: 16 Pulse Ox: 100 Oxygen Delivery Method: Room Air Assessment Airway patent: Yes Spontaneous unlabored respirations: Yes Mental status: Asleep nausea: No Vomiting: No Anesthesia Complication: No Fluid Hydration Crystalloid volume administer (ml): 2,400 Total IV fluid infused: 2,400 Progress Note Anesthesia document: Postop Eval 1 completed: Yes 02/25/25 1639 <Electronically signed by Donnell paez CRNA> Date _ Donnell Carballo CRNA Cosigner Signature: Date CC: ~ Signed [facility] Work Phone: [phone]) 350-668705-09-2025 Radiology Diagnostic study note [facility] Imaging Services [address] [place] [address] Abdomen Single View (Portable) MR#: [id number] Acct: [id number] Name: TIMANDREW ALVARADO Yamila Rep #: [id number] : 1965 M 59 From: Taya Alfonso MD PCP: Care Physician,No Primary Status: ADM IN Study:Abdomen Single View (Portable) Date of Exam: 02/25/25 Exam# [id number] Ordering Dr: St ghada Chandler MD PROCEDURE: ABDOMEN SINGLE VIEW (PORTABLE) 02/25/2025 REASON FOR EXAM: NG PLACEMENT TECHNIQUE: Single view abdomen. COMPARISON: CT abdomen and pelvis 02/24/2025 FINDINGS: Bowel gas: Nonobstructive bowel gas pattern. Feeding tube with the side port above the diaphragm with the tip in the gastric cardia Calcifications: Multiple surgical james overlying the midline. Bones: The bones are unremarkable. Other: Bilateral percutaneous nephroureteral stents. RAD/Abdomen Single View (Portable) IMPRESSION: See above Reading [facility] CC: Dr. Kunal Chandler MD; No Primary Care Physician ~ Bilingual Medical Assistant: Signed [facility]05-09-2025 Procedure note [facility] Medical Records Department [address] [place] [address] Operative Report 02/25/25 1712 MR#: [id number] Acct: [id number] Name: ANDREW POSADA Rep #:[id number] : 1965 59 From: Kunal Chandler MD PCP: Care Physician,No Primary Status :ADM IN Location: [place] 215784-1 Problems Associated Problem List Diagnoses (1) SBO (small bowel obstruction): Multi Select Codes Digestive Digestive CPT Codes: 85392 Freeing of bowel adhesion, 20484 Exploration of abdomen and Other Procedure See Notes (27096 -- loop illeostomy ) Endocrine,Ocular,Nerv, Auditory Endocrine,Ocular,Nerv, Auditory CPT Codes: Other Procedure See Report (49169 bilateral piyush block ) Operative Report (Standard) Operative Information Date of Procedure: 02/25/25 Pre-Operative Diagnosis: Small bowel obstruction Post-Operative Diagnosis: Small bowel obstruction secondary to adhesions/radiation to the pelvis Surgery/Procedure Performed: 1. Diagnostic laparoscopy 2. Exploratory laparotomy 3. Extensive lysis of adhesions 4. Diverting loop jejunostomy 5. Bilateral tap block electric freight car operator: Yes Airplane Gas Tank Liner Assembler: Omero Lindsay Tasks completed by first officer: Closing and Retracting Additional trust manager assistant?: Yes Additional Gypsum Roofer #2: Eber Leon Tasks completed by trust manager assistant #2: Other (dissecting tissue ) Type of Anesthesia: General and Local RN Documented Start/Stop Times: Operation Date: 02/25/25 13:00 Case Time Into Pre-Op 02/25/25 12:07 Out of Pre-Op 02/25/25 12:39 Anesthesia Start 02/25/25 12:43 Into Room 02/25/25 12:43 Procedure Start 02/25/25 13:15 Procedure End 02/25/25 16:20 Anesthesia End 05/09/25 16:34 Out of Room 02/25/25 16:34 Into Recovery 02/25/25 16:35 Procedure Start Time: 13:15 Procedure Stop Time: 16:20 Select all DRAINS/GRAFTS/IMPLANTS that apply: None Special Medications: Ancef IV Estimated Blood Loss: 80 mL Specimen collected: No Description of surgery: The patient is a 59-year-old male with a history of rectal cancer treated with surgery, radiation and chemotherapy. He just recently finished chemotherapy. He presented to [facility] yesterday with bowel obstruction. Emmanuel had a previous bowel obstruction in September which resolved however he presented again with a bowel obstruction. We attempted a small bowel follow-through. He di d not tolerate this study and quickly threw up the contrast. Hisx-rays were quite impressive this morning. I did not feel that his bowel obstruction would resolve without surgical intervention. I offered the option of surgery and he wished to proceed. He was brought to the operating room todayfollowing informed consent. Preoperative antibiotics were given and a timeout was performed. He was placed supine on the operative table with arms comfortably tucked at his side. Sterile drapes were placedaround his left-sided colostomy. The abdomen was then prepped and draped in the usual sterile manner. A diagnostic laparoscopy was performed first. A 5 mm incision was madein the right upper quadrant. Through this a 5 mm trocar was placed optically. This was placed without incident. A 5 mm 0 degreescope was inserted. There were no signs of bowel or vascular injury. Numerous intra-abdominal adhesions were noted. I was able to place another 5 mm trocar in the epigastric region for the camera. I then used a harmonic scalpel to begin taking down adhesions along the midline. There were significant adhesions present especially in the right lower quadrant. We then opted to perform a midline laparotomy. #15 bladewas then used to make the skin incision. Bovie electrocautery was then used to dissect down through subcutaneous tissue. The abdomen was entered without difficulty. Bell retractors were used to retract. There is considerable adhesions of the omentum down into the pelvis. This was freed up thus exposing the small bowel. There were numerous loops of small bowel that were dilated. Iwas able to traced the bowel proximally. The proximal bowel from about the distal jejunum to theligament of Tre[place] was surprisingly free of adhesions however once the small bowel dove into the pelvis there was considerable amount of very thick dense chronic fibrosed adhesions. All of these loops of small bowel were very dilated. A considerable amount of time was spent meticulously trying to lyse some of these adhesions and develop a suitable plane to find the point of transition. I asked Dr. Leon, one of my partners, to assist as well. Together we were able to free up quite a bit of the pelvic adhesions however we really could not effectively and safely find the exact transition point. We were basically dissecting these dilated loops of bowel off of the bladder. Most likely the point of transition was involving the terminal ileum as this seemed to dive quite deeply into the pelvis to the point where we reallycould not even reach the full extent of the small bowel using finger dissection this would have been very blind finger dissection to free this up. We did note the verydistal terminal ileum as it met the cecum and this was completely encased with scar tissue as well.Again this is most likely related to previousradiation to the pelvis. At this point we did not feelthat it was safe to try to free up this loop of bowel blindly. It was decided to do a diverting loop using small bowel just proximal to the point of transition. A skin [place] was created in the rightlower quadrant. The fascia was incised in a cruciate manner using electrocautery. A loop of small bowel was brought up. I suspect this is distal jejunum that was brought up. This was secured with a [place] temporarily. The abdomen was then copiously irrigated. Hemostasis was very good the abdomen was irrigated and suctioned dry. A bilateral tap block was performed using a total of 100 cc. the fascia was then closed using a #1 loopedPDS x 2. 3- 0 Vicryl and skin james were used for closure. Once closed, the ostomy was then matured using 3-0 Vicryl. This was performed over a plastic support leigh. Appliances were applied to both ostomies a Mepilex dressing was applied along the midline incision. He was awakened from anesthesia and taken to recovery in good condition.. Surgical Findings: Extensive intra-abdominal adhesions especially in the deep pelvis likely secondary to pelvic radiation-unable to relieve small bowel obstruction. Diverting loop jejunostomy performed Complications Complications: No Admit VTE Documentation VTE Present on Admission: No VTE Mechan Device Prophylaxis: SCD's VTE Pharm Prophylaxis ordered?: Yes 02/25/25 1736 Cosigner Signature (if applicable): CC: Dr. Kunal Chandler MD; No Primary Care Physician~ Signed [facility]05-09-2025 Consult note [facility] Medical Records Department [address] [place] [address] Anesthesia Postop Eval II 02/25/25 1725 MR#: [id number] Acct: [id number] Name: ANDREW POSADA Rep #:[id number] : 1965 59 From: Forrest Lancaster MD PCP: Care Physician,No Primary Status :ADM IN Y Race: C Location: [place] [id number] Anesthesia Postop Eval I Sum Postop Eval Completion status Anesthesia document: Postop Eval 1 completed: Yes Anesthesia Postop Eval I Summary Anesthesia Postop Eval I Summary: Anesthesia Postop Eval I: Assessment Summary 3 Airway patent Yes 02/25/25 16:39 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 Spontaneous unlabored Yes 02/25/25 16:39 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 respirations Mental status Asleep 02/25/25 16:39 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 nausea No 02/25/25 16:39 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 Vomiting No 02/25/25 16:39 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 Anesthesia Postop Eval I: Fluid Summary Crystalloid volume administer 2,400 02/25/25 16:39 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 (ml) Colloids volume administered ( ml) Blood Product volume administered (ml) Total IV fluid infused 2,400 02/25/25 16:39 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 Anesthesia Postop Eval I: Summary Notes Anesthesia Complication No 02/25/25 16:39 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 Anesthesia Complication Comment: Post-operative progress note Anesthesia: Postop Eval II Evaluation Mental status: Awake and Calm Pain Level: 5 nausea: No Vomiting: No 02/25/25 1725 D> Date _ Forrest Lancaster MD Cosigner Signature: Date CC: ~ Signed [facility]05-09-2025 Consult note [facility] Medical Records Department [address] [place] [address] Anesthesia Postop Eval I 02/25/25 1639 MR#: [id number] Acct: [id number] Name: ANDREW POSADA Rep #:[id number] : 1965 59 From: Donnell Carballo CRNA PCP: Care Physician,No Primary Status :ADM IN Y Race: C Location: [place] [address] Anesthesia: Postop Eval I Current Vital Signs Temperature: 97.1 F Pulse Rate: 67 Blood Pressure: 163/97 Respiratory Rate: 16 Pulse Ox: 100 Oxygen Delivery Method: Room Air Assessment Airway patent: Yes Spontaneous unlabored respirations: Yes Mental status: Asleep nausea: No Vomiting: No Anesthesia Complication: No Fluid Hydration Crystalloid volume administer (ml): 2,400 Total IV fluid infused: 2,400 Progress Note Anesthesia document: Postop Eval 1 completed: Yes 02/25/25 1639 y MOLD HOLDER> Date _ Donnell Odenigner Signature: Date CC: ~ Signed [facility]05-09-2025 Progress note Author Handy Royal [facility] Note Date/Time February 25, 2025 12:59p m [facility] Medical Records Department [address] [place] [address] Progress Note - Hospitalist 02/25/25 1253 MR#: [id number] Acct: [id number] Name: ANDREW POSADA Rep #:[id number] : 1965 59 From: Handy Harris PCP: Care Physician,No Primary Status :ADM IN Location: [place] [address] Reason for Visit Reason for Visit: Diagnoses Malignant neoplasm of rectum (02/24/25) Unspecified intestinal obstruction, unspecified as to partial versus complete obstruction (02/24/25) Objective Data Objective Data Vital Signs: Vital Signs Temp Pulse Resp BP Pulse Ox O2 Del Method 98.3 F 76 16 168/112 H 96 Room Air 02/25/25 12:01 02/25/25 12:01 02/25/25 12:01 02/25/25 12:01 02/25/25 12:01 02/25/25 12:27 Oxygen Delivery Method Room Air Weight: 108 lb 11.006 oz Body Mass Index (BMI) 16.5 Intake & Output: Intake and Output for Last 24 Hours 02/23/25 02/24/25 02/25/25 23:59 23:59 23:59 Intake Total 1569.58 / 1629.58 1090 / 1090 Output Total 200 / 800 1495 / 1495 Balance 1369.58 / 829.58 -405 / -405 Medical Nutrition Assessment Dietitian: Malnutrition Criteria Met Start: 02/25/25 11:58 Freq: Status: Active Protocol: Document 02/25/25 11:59 SLA (Rec: 02/25/25 11:59 SLA [id number]) Nutrition Malnutrition Evidence of Yes Malnutrition Exists Malnutrition (severe Chronic ): Evidenced By Suboptimal Energy Intake (Severe),Weight Loss (Severe), Physical Changes (Severe) Clinical Problem Chronic Disease or Condition Related Malnutrition Etiology related to GI dysfunction and cancer causing inadequate energy intake Signs/Symptoms as evidenced by 23% unintended wt loss and 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 5 Status Active Problem Recommendation Dietitian As medically able rec CECILY to Transitional with goalof Recommendations/ regular diet d/t signs and symptoms of malnutrition Changes As medically able, rec 4 oz ensure plus high protein 4x /day w/ medpass for increased nutrition if consumed- prefers chocolate flavor Lab / Micro Data 02/25/25 06:40 02/25/25 06:40 Labs: Laboratory Results - last 24 hr 02/24/25 07:35: Phosphorus 2.7, Magnesium 2.1 02/24/25 16:35: Urine Color Yellow, Urine Clarity Turbid, Urine pH 6.0, Ur Specific [place] 1.025, Urine Protein 500 H, Urine Glucose (UA) Normal, Urine Ketones 15 H, Urine Occult Blood 250 H, Urine Nitrite Negative, Urine Bilirubin Negative, Urine Urobilinogen Normal, Ur Leukocyte Esterase 500 H, Urine RBC 25-50 SEEN, Urine WBC >100 SEEN, Ur Squamous Epith Cells 0 SEEN, Calcium Oxalate Crystal 1+, Urine Bacteria 2+, Urine Mucus 0 SEEN 02/25/25 06:40: WBC 8.3, RBC 3.70 L, Hgb 12.5 L, Hct 35.7 L, MCV 96.5 H, MCH 33.8 H, MCHC 35.0, RDW Std Deviation 52.5 H, RDW Coeff of Rosalee 15.2 H, Plt Count 113 L, MPV 9.4, Immature Gran % (Auto) 0.500, Neut % (Auto) 80.9 H, Lymph % (Auto) 6.2 L, [place] % (Auto) 11.9 H, Eos % (Auto) 0.1, Baso % (Auto) 0.4, Absolute Neuts (auto) 6.7, Absolute Lymphs (auto) 0.51 L, Nucleated RBC % 0, Sodium 142, Potassium 3.2 L, Chloride 99, Carbon Dioxide 29.5, Anion Gap 14, BUN21 H, Creatinine 1.51 H, Estim Creat Clear Calc 36.73 L, Est GFR (MDRD) Non-Af 53 L, BUN/Creatinine Ratio 13.7, Glucose 121 H, Calcium 9.6 Radiography Diagnostic Testing: Radiology Impression Small Bowel X-Ray 02/25/25 08:25 IMPRESSION: On initial imaging, nasogastric tube position is unchanged. Bilateral nephrostomy tubes are unchanged in position. Multiple dilated small bowel loops are seen throughout the abdomen, predominantly centrally into the left; this is consistent with small-bowel obstruction or adynamic ileus. Some contrast is seen extending to the proximal jejunum, at the 1 hour film. Following this, the patient reportedly vomited the remaining gastric contrast. The study was then terminated by Dr. Chandler. Reading Location: [place] [address] Physical Exam Narrative Seen and examined Patient still has NG tube. Patient vomited shortly after oral contrast was pulled through NG tube. Imaging showed small bowel obstruction therefore plan for proceeding with surgery Physical exam General: Alert, Oriented x3, Cooperative HEENT: Atraumatic, PERRLA, EOMI, Normocephalic. Oral: Oral mucosa dry no Gingival or Mucosal Lesions/ Ulcerations Neck: Supple, No JVD, Negative Carotid Bruits Chest wall/Lungs: Air entry diminished in bilateral lung bases. No crepitation/rhonchi Cardiovascular: Irregular rhythm normal S1,S2, systolic murmur Abdomen: Bowel Sounds hyper, soft, Non Tender, colostomy. No significant fecal content in colostomy bag. : Bilateral nephrostomy tube, dark urine. No renal angle tenderness. No suprapubic tenderness. Extremities: No edema, Capillary Refill Less than 3 Seconds Skin: No rashes, No breakdown Musculoskeletal: No Tenderness to Palpation of Joints or Extremities Neurological: Cranial nerves II-XII grossly intact, DTR 2+/4. No acute focal neurological deficit. Psych/Mental Status: Flat affect Assessment & Plan Assessment/Plan (1) SBO (small bowel obstruction): (2) Malignant neoplasm of rectum: PLAN: Plan This 59-year-old gentleman is being admitted for small bowel obstruction. Patient has history of rectal cancer status post APR. He had chemotherapy and radiation 4 months ago and then last chemo about 10 days ago. 1. Small bowel obstruction with history of colorectal cancer status post APR and colostomy: Patient is being admitted MedSurg floor. IV fluid Ringer lactateat 100 mL/h. NG suction at low intermittent wall suction. Monitor bowel emptying. Surgery Dr. Chandler is consulted. CT abdomen images shows multiple distended small bowel loops with largest measuring 3.7 cm. 02/25: Small bowel series shows contrast in the stomach with collection in duodenum and proximal jejunum at 1 hour. Multiple dilated small bowel loops predominantly in the left side. As per surgeon, there is less chance of conservative management therefore surgery was recommended and patient agreed. Plan for surgery today. Mild hypokalemia, electrolyte replacement ordered. 2. CA rectum: He follows Dr. Ho. Had C8 FOLFOX on 02/14/2025. Prior to that he finished chemotherapy on 08/13/2024 and radiation on 08/17/2024. 3. Bilateral hydronephrosis status post bilateral nephrostomy in September 2024 in [facility]: Urine in bilateral nephrostomy bag is dark-colored. IV fluid hydration. CT scan does not show hydronephrosis 4. History of DVT in the past: Unclear about it location but patient said it was in right thigh. Unclear about the reason why did not complete full course of anticoagulation but he said he had Lovenox and aspirin during hospitalizationin [facility]. 5. Irregular rhythm: Twelve-lead EKG shows sinus rhythm with PAC, LAD at 85 bpm.Denies history of A-fib. 6. DVT prophylaxis, high risk: Lovenox 40 mg subcu daily Living will/advanced directive/end of life care: Patient does not have living will or advanced directive but in the process of making living well. After discussion of benefits/risks procedures involved with full code, DNR CC arrest and DNR CC, the patient and his opted for full code Patient does want artificial life support including intubation, tube feed, ventilator and/chest compression, central venous catheter, vasopressor and DC shock if needed Total time spent in [id number]-evam encounter in discussion of advanced directive 17 minutes. Laboratory Results 02/24/25 07:35: Phosphorus 2.7, Magnesium 2.1 02/24/25 16:35: Urine Color Yellow, Urine Clarity Turbid, Urine pH 6.0, Ur Specific [place] 1.025, Urine Protein 500 H, Urine Glucose (UA) Normal, Urine Ketones 15 H, Urine Occult Blood 250 H, Urine Nitrite Negative, Urine Bilirubin Negative, Urine Urobilinogen Normal, Ur Leukocyte Esterase 500 H, Urine RBC 25-50 SEEN, Urine WBC >100 SEEN, Ur Squamous Epith Cells 0 SEEN, Calcium Oxalate Crystal 1+, Urine Bacteria 2+, Urine Mucus 0 SEEN 02/25/25 06:40: WBC 8.3, RBC 3.70 L, Hgb 12.5 L, Hct 35.7 L, MCV 96.5 H, MCH 33.8 H, MCHC 35.0, RDW Std Deviation 52.5 H, RDW Coeff of Rosalee 15.2 H, Plt Count 113 L, MPV 9.4, Immature Gran % (Auto) 0.500, Neut % (Auto) 80.9 H, Lymph % (Auto) 6.2 L, [place] % (Auto) 11.9 H, Eos % (Auto) 0.1, Baso % (Auto) 0.4, Absolute Neuts (auto) 6.7, Absolute Lymphs (auto) 0.51 L, Nucleated RBC % 0, Sodium 142, Potassium 3.2 L, Chloride 99, Carbon Dioxide 29.5, Anion Gap 14, BUN21 H, Creatinine 1.51 H, Estim Creat Clear Calc 36.73 L, Est GFR (MDRD) Non-Af 53 L, BUN/Creatinine Ratio 13.7, Glucose 121 H, Calcium 9.6 Clinical Impression(s) from Imaging Studies Abdomen CT 02/24/25 07:20 IMPRESSION: 1. Multiple distended small bowel loops with differential air-fluid levels measuring up to 3.7 cm, concerning for small bowel obstruction with possible transition in the right lower abdominal quadrant. 2. Bladder wall thickening which may be due to the decompressed state of the bladder or due to cystitis. 3. Small esophageal hiatal hernia. 4. Inguinal hernias, bilaterally. Reading Location: [facility] X-Ray 02/24/25 11:25 IMPRESSION: Tip of the nasogastric tube in the fundus of the stomach. Bilateral nephrostomy catheters. Bowel-gas pattern suggest adynamic/reflex ileus. Reading Location: [facility] Charges/Coding Visit Charges Inpatient E&M: 26991 Subs Hosp L2 02/25/25 1259 <Electronically signed by Handy Royal MD> Cosigner Signature (if applicable): CC: ~ Signed [facility] Work Phone: [phone]) 310-785105-09-2025 Consult note Author Forrest Lancaster [facility] Note Date/Time February 25, 2025 12:27p [facility] Medical Records Department [address] [place] [id number] Pre-Anesthesia Evaluation 02/25/25 1159 MR#: [id number] Acct: [id number] Name: ANDREW POSADA Yamila Rep #:[id number] : 1965 59 From: Forrest Lancaster MD PCP: Care Physician,No Primary Status :ADM IN Y Race: C Location: [place] [address] ASA Classification* ASA Classification ASA Classification: 3 and E Assessment & Plan Anesthesia* Anesthesia Assessment Anesthesia Assessment: Discussed sedation and/or anesthesia options, risks, benefits, and alternatives with patient/parents/legal guardian/POA. Questions invited. The patient/parents/legal guardian/POA seems to understand and agrees to proceedwith anesthesia plan. Reviewed the physical assessment, medical history, allergy history and patient home medications list prior to surgery/procedure/anesthetic and documented any changes. Performed airway and anesthesia risk assessments. Anesthesia Type Anesthesia Type: General History Source History Obtained from:: Patient, Chart and Significant Other Anesthesia Focused Assessment* Temperature: 98.3 F Pulse Rate: 76 Blood Pressure: 168/112 Respiratory Rate: 16 Pulse Ox: 96 Oxygen Delivery Method: Room Air Vital signs additional comments: NG tube clamped in right nare Airway Assessment Mouth opens: >3 cm Mallampati Score: II Teeth Condition: Loose (bottom front two teeth ) Neck Range of motion (ROM): Full ROM Focused Labs Anesthesia Preop lab: CBC WBC 8.3 K/mm3 (4.4-11.0) 02/25/25 06:40 02/25/25 RBC 3.70 M/mm3 (4.6-6.2) L 02/25/25 06:40 02/25/25 Hgb 12.5 g/dL (13.0-16.5) L 02/25/25 06:40 5 Hct 35.7 % (40-54) L 02/25/25 06:40 02/25/25 Plt Count 113 K/mm3 (150-450) L 02/25/25 06:40 02/25/25 CHEMISTRY Potassium 3.2 mmol/L (3.3-5.1) L 02/25/25 06:40 02/25/25 Sodium 142 mmol/L (133-145) 02/25/25 06:40 02/25/25 Magnesium 2.1 mg/dL (1.5-2.2) 02/24/25 07:35 02/24/25 Phosphorus 2.7 mg/dL (2.7-4.5) 02/24/25 07:35 02/24/25 BUN 21 mg/dL (4-19) H 02/25/25 06:40 02/25/25 Creatinine 1.51 mg/dL (0.70-1.20) H 02/25/25 06:40 Glucose 121 mg/dL (70-99) H 02/25/25 06:40 02/25/25 TSH 2.080 uIU/mL (0.358-3.740) 11/08/24 07:45 10/21 COAG Pre-Assessment Diagnosis/Proposed Procedure Planned Operative Procedure(s): diagnostic laparoscopy vs ex-lap Anesthesia History 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 When Was Last Pacemaker Check QUESTION #4 FULL TEXT: You/Your Family Experience fever (hyperthermia) with Anesthesia Last Oral Intake Last Oral intake: Last Oral Intake NPO since Meds taken in AM with sips of water? Meds patient instructed to take am of surgery PONV PONV - asphalt spreader: PONV - asphalt spreader Female HX of Motion Sickness HX of N/V After Surgery Non-Smoker Duration of Surgery greater than 60 minutes Number of Risk Factors PONV Score Height & Weight Height & Weight: Anesthesia: Height & Weight Height 5 ft 8.11 in 02/25/25 11:32 Weight: 49.3 kg 02/25/25 11:32 Body Mass Index (BMI) 16.5 02/25/25 06:00 Respiratory Assessment Respiratory Assessment - asphalt spreader: Respiratory Tract Infection Hx - asphalt spreader Hx Respiratory Tract Infection No 07/14/24 13:14 STOP Sleep Apnea STOP Sleep Apnea - asphalt spreader: STOP Sleep Apnea - asphalt spreader Hx Hypertension Yes 02/24/25 16:30 Hx Sleep Apnea No 02/24/25 12:38 CPAP BIPAP Do you snore loudly (louder No 02/24/25 12:38 than talking or can be heard Do you often feel tired/ No 02/24/25 12:38 fatigued/ sleepy during daytime? Has anyone observed you stop No 02/24/25 12:38 breathing during sleep? STOP Results Negative 02/24/25 12:38 QUESTION #5 FULL TEXT : Do you snore loudly (louder than talking or can be heard through closed doors)? 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 Specify any problems Hx of Preganancy in last 3 N/A 02/24/25 12:38 Months Nurse Filling Out Transfusion JDIAL 02/24/25 12:38 & Questions: Date: 02/24/25 02/24/25 12:38 Time: 12:46 02/24/25 12:38 Patient unable to answer at this time (ie. confused, unrespo /Reproduction History /Reproductive History - asphalt spreader: /Reproductive Hx- asphalt spreader Hx Now Gestational Age (in weeks): EDC: Hx Hx Para Hx Section SAB No 07/14/24 13:14 Active Medications Active Medications: Current Medications Generic Name Dose Route Start Last Admin Trade Name Freq PRN Reason Stop Dose Admin Acetaminophen 650 mg 02/24/25 12:29 Acetaminophen 325 Mg Tablet PO Q6H PRN PRN Pain 1-10 Or Fever >100.7 Enoxaparin Sodium 40 mg 02/24/25 12:29 02/24/25 13:13 Enoxaparin 40 Mg/0.4 Ml Syringe SC 40 mg Q24 FREDA Administration Hydralazine HCl 5 mg 02/25/25 08:54 02/25/25 11:29 Hydralazine 20 Mg/Ml Vial IV 5 mg Q4H PRN PRN Administration SBP >160 mmHg Protocol Lactated Ringer's 1,000 mls @ 100 mls/hr 02/25/25 11:00 02/25/25 11:10 IV 02/26/25 06:59 100 mls/hr .Q10H FREDA Administration Labetalol HCl 10 mg 02/25/25 08:54 Labetalol 20mg/4ml Syringe IV Q4H PRN PRN sbp> 180 Protocol Morphine Sulfate 2 - 4 mg 02/24/25 12:29 Morphine 2 Mg/Ml Syringe IV Q3H PRN PRN Pain Score 4-10 Prochlorperazine Edisylate 5 mg 02/24/25 12:29 Prochlorperazine 10 Mg/2 Ml Vial IV Q4H PRN PRN Breakthrough nausea/vomiting Sodium Chloride 10 - 40 ml 02/24/25 13:18 02/25/25 11:30 0.9% Saline Lock 10 Ml Syringe IV 10 ml UD PRN Administration Port-a-Cath (VAD)/R Port Flush Sodium Chloride 10 - 40 ml 02/24/25 13:18 0.9 % Nacl (Sterile) Posiflush 10 Ml IV UD PRN Port [facility] Hypokalemia UTI (urinary tract infection) CINV (chemotherapy-induced nausea and vomiting) Cloudy urine Bradycardia Prerenal azotemia Constipation Hypoalbuminemia Wears glasses Cancer DVT (deep venous thrombosis) Syncope Non-smoker Cataract (lens) fragments in eye following cataract surgery, bilateral Mandeep blood in stool Chronic diarrhea of unknown origin Change in bowel habit Colon cancer Home Medications ?Medication ?Instructions ?Recorded ?Last Taken ?Type sennosides 8.6 mg capsule (senna) 8.6 mg PO QHS PRN co nstipation 09/24/24 10/10/24 History ondansetron 8 mg disintegrating 8 mg PO Q8H PRN nausea and 11/22/24 Unknown Rx tablet vomiting #30 tabs Allergy/AdvReac Type Severity Reaction Status Date / Time No Known Allergies Allergy Verified 02/14/25 09:48 Family History Son Cancer Surgical History H/O hernia repair S/P colonoscopy H/O colectomy History of creation of ostomy Social History household members: spouse Smoking Status: Never smoker alcohol intake: never substance use type: does not use Review of Systems (Anesthesia) ROS Narrative System reviewed and no additional complaints, except as documented. Physical Exam Const alert and oriented x3 Resp normal respiratory effort Cardio regular rate Neuro oriented x3 02/25/25 1227 <Electronically signed by Forrest Belcher D> Date _ Forrest Lancaster MD Cosigner Signature: Date CC: ~ Signed [facility] Work Phone: 1(285) 145-759405-09-2025 Progress note Author Kunal [facility] Note Date/Time February 25, 2025 11:51a m [facility] Medical Records Department [address] [place] [address] Progress Note - Surgery 02/25/25 1150 MR#: [id number] Acct: [id number] Name: ANDREW POSADA Rep #:[id number] : 1965 59 From: Kunal Chandler MD PCP: Care Physician,No Primary Status :ADM IN Location: [place] [id number] Subjective Subjective Small bowel follow-through was attempted today however patient developed emesis shortly after contrast was instilled by NG tube. Images today show bowel gas pattern consistent with small bowel obstruction. Given these findings, I suspect the success of conservative management of his bowel obstruction would below. As result I offered surgery. We discussed the details of the planned procedure and he wishes to proceed. This will begin shortly Objective Data Objective Data Vital Signs: Vital Signs Temp Pulse Resp BP Pulse Ox O2 Del Method 98.3 F 76 16 168/112 H 96 Room Air 02/25/25 11:16 02/25/25 11:29 02/25/25 11:16 02/25/25 11:29 02/25/25 11:16 02/25/25 11:16 Oxygen Delivery Method Room Air Weight: 108 lb 11.006 oz Body Mass Index (BMI) 16.5 Intake & Output: Intake and Output for Last 24 Hours 02/23/25 02/24/25 02/25/25 23:59 23:59 23:59 Intake Total 1569.58 / 1629.58 1090 / 1090 Output Total 200 / 800 1350 / 1350 Balance 1369.58 / 829.58 -260 / -260 Lab / Micro Data 02/25/25 06:40 02/25/25 06:40 Labs: Laboratory Results - last 24 hr 02/24/25 07:35: Phosphorus 2.7, Magnesium 2.1 02/24/25 16:35: Urine Color Yellow, Urine Clarity Turbid, Urine pH 6.0, Ur Specific [place] 1.025, Urine Protein 500 H, Urine Glucose (UA) Normal, Urine Ketones 15 H, Urine Occult Blood 250 H, Urine Nitrite Negative, Urine Bilirubin Negative, Urine Urobilinogen Normal, Ur Leukocyte Esterase 500 H, Urine RBC 25-50 SEEN, Urine WBC >100 SEEN, Ur Squamous Epith Cells 0 SEEN, Calcium Oxalate Crystal 1+, Urine Bacteria 2+, Urine Mucus 0 SEEN 02/25/25 06:40: WBC 8.3, RBC 3.70 L, Hgb 12.5 L, Hct 35.7 L, MCV 96.5 H, MCH 33.8 H, MCHC 35.0, RDW Std Deviation 52.5 H, RDW Coeff of Rosalee 15.2 H, Plt Count 113 L, MPV 9.4, Immature Gran % (Auto) 0.500, Neut % (Auto) 80.9 H, Lymph % (Auto) 6.2 L, Rawlins % (Auto) 11.9 H, Eos % (Auto) 0.1, Baso % (Auto) 0.4, Absolute Neuts (auto) 6.7, Absolute Lymphs (auto) 0.51 L, Nucleated RBC % 0, Sodium 142, Potassium 3.2 L, Chloride 99, Carbon Dioxide 29.5, Anion Gap 14, BUN21 H, Creatinine 1.51 H, Estim Creat Clear Calc 36.73 L, Est GFR (MDRD) Non-Af 53 L, BUN/Creatinine Ratio 13.7, Glucose 121 H, Calcium 9.6 Radiography Diagnostic Testing: Radiology Impression KUB X-Ray 02/24/25 11:25 IMPRESSION: Tip of the nasogastric tube in the fundus of the stomach. Bilateral nephrostomy catheters. Bowel-gas pattern suggest adynamic/reflex ileus. Reading Location: [facility] Small Bowel X-Ray 02/25/25 08:25 IMPRESSION: On initial imaging, nasogastric tube position is unchanged. Bilateral nephrostomy tubes are unchanged in position. Multiple dilated small bowel loops are seen throughout the abdomen, predominantly centrally into the left; this is consistent with small-bowel obstruction or adynamic ileus. Some contrast is seen extending to the proximal jejunum, at the 1 hour film. Following this, the patient reportedly vomited the remaining gastric contrast. The study was then terminated by Dr. Chandler. Reading Location: [place] [address] 02/25/25 1151 <Electronically signed by Kunal Chandler MD> Cosigner Signature (if applicable): CC: ~ Signed [facility] Work Phone: [phone] 616-308005-09-2025 Progress note [facility] Medical Records Department [address] [place] [address] Progress Note - Hospitalist 02/25/25 1253 MR#: [id number] Acct: [id number] Name: TIMANDREW A Rep #:[id number] : 1965 59 From: Handy Harris PCP: Care Physician,No Primary Status :ADM IN Location: [id number] Reason for Visit Reason for Visit: Diagnoses Malignant neoplasm of rectum (02/24/25) Unspecified intestinal obstruction, unspecified as to partial versus complete obstruction (02/24/25) Objective Data Objective Data Vital Signs: Vital Signs Temp Pulse Resp BP Pulse Ox O2 Del Method 98.3 F 76 16 168/112 H 96 Room Air 02/25/25 12:01 02/25/25 12:01 02/25/25 12:01 02/25/25 12:01 02/25/25 12:01 02/25/25 12:27 Oxygen Delivery Method Room Air Weight: 108 lb 11.006 oz Body Mass Index (BMI) 16.5 Intake & Output: Intake and Output for Last 24 Hours 02/23/25 02/24/25 02/25/25 23:59 23:59 23:59 Intake Total 1569.58 / 1629.58 1090 / 1090 Output Total 200 / 800 1495 / 1495 Balance 1369.58 / 829.58 -405 / -405 Medical Nutrition Assessment Dietitian: Malnutrition Criteria Met Start: 02/25/25 11:58 Freq: Status: Active Protocol: Document 02/25/25 11:59 SLA (Rec: 02/25/25 11:59 SLA [id number]) Nutrition Malnutrition Evidence of Yes Malnutrition Exists Malnutrition (severe Chronic ): Evidenced By Suboptimal Energy Intake (Severe),Weight Loss (Severe), Physical Changes (Severe) Clinical Problem Chronic Disease or Condition Related Malnutrition Etiology related to GI dysfunction and cancer causing inadequate energy intake Signs/Symptoms as evidenced by 23% unintended wt loss and 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 5 Status Active Problem Recommendation Dietitian As medically able rec CECILY to Transitional with goalof Recommendations/ regular diet d/t signs and symptoms of malnutrition Changes As medically able, rec 4 oz ensure plus high protein 4x /day w/ medpass for increased nutrition if consumed- prefers chocolate flavor Lab / Micro Data 02/25/25 06:40 02/25/25 06:40 Labs: Laboratory Results - last 24 hr 02/24/25 07:35: Phosphorus 2.7, Magnesium 2.1 02/24/25 16:35: Urine Color Yellow, Urine Clarity Turbid, Urine pH 6.0, Ur Specific [place] 1.025, Urine Protein 500 H, Urine Glucose (UA) Normal, Urine Ketones 15 H, Urine Occult Blood 250 H, Urine Nitrite Negative, Urine Bilirubin Negative, Urine Urobilinogen Normal, Ur Leukocyte Esterase 500 H, Urine RBC 25- 50 SEEN, Urine WBC >100 SEEN, Ur Squamous Epith Cells 0 SEEN, Calcium Oxalate Crystal 1+, Urine Bacteria 2+, Urine Mucus 0 SEEN 02/25/25 06:40: WBC 8.3, RBC 3.70 L, Hgb 12.5 L, Hct 35.7 L, MCV 96.5 H, MCH 33.8 H, MCHC 35.0, RDWStd Deviation 52.5 H, RDW Coeff of Rosalee 15.2 H, Plt Count 113 L, MPV 9.4, Immature Gran % (Auto) 0.500, Neut % (Auto) 80.9 H, Lymph % (Auto) 6.2 L, Rawlins % (Auto) 11.9 H, Eos % (Auto) 0.1, Baso % (Auto) 0.4, Absolute Neuts (auto) 6.7, Absolute Lymphs (auto) 0.51 L, Nucleated RBC % 0, Sodium 142, Potassium 3.2 L, Chloride 99, Carbon Dioxide 29.5, Anion Gap 14, BUN21 H, Creatinine 1.51 H, Estim CreatClear Calc 36.73 L, Est GFR (MDRD) Non-Af 53 L, BUN/Creatinine Ratio 13.7, Glucose 121 H, Calcium 9.6 Radiography Diagnostic Testing: Radiology Impression Small Bowel X-Ray 02/25/25 08:25 IMPRESSION: On initial imaging, nasogastric tube position is unchanged. Bilateral nephrostomy tubes are unchanged in position. Multiple dilated small bowel loops are seen throughout the abdomen, predominantly centrally into the left; this is consistent with small-bowel obstruction or adynamic ileus. Some contrast is seen extending to the proximal jejunum, at the 1 hour film. Following this, the patient reportedly vomited the remaining gastric contrast. The study was then terminated by Dr. Chandler. Reading Location: [place] [address] Physical Exam Narrative Seen and examined Patient still has NG tube. Patient vomited shortly after oral contrast was pulled through NG tube. Imaging showed small bowel obstruction therefore plan for proceeding with surgery Physical exam General: Alert, Oriented x3, Cooperative HEENT: Atraumatic, PERRLA, EOMI, Normocephalic. Oral: Oral mucosa dry no Gingival or Mucosal Lesions/ Ulcerations Neck: Supple, No JVD, Negative Carotid Bruits Chest wall/Lungs: Air entry diminished in bilateral lung bases. No crepitation/rhonchi Cardiovascular: Irregular rhythm normal S1,S2, systolic murmur Abdomen: Bowel Sounds hyper, soft, Non Tender, colostomy. No significant fecal content in colostomybag. : Bilateral nephrostomy tube, dark urine. No renal angle tenderness. No suprapubic tenderness. Extremities: No edema, Capillary Refill Less than 3 Seconds Skin: No rashes, No breakdown Musculoskeletal: No Tenderness to Palpation of Joints or Extremities Neurological: Cranial nerves II-XII grossly intact, DTR 2+/4. No acute focal neurological deficit. Psych/Mental Status: Flat affect Assessment & Plan Assessment/Plan (1) SBO (small bowel obstruction): (2) Malignant neoplasm of rectum: PLAN: Plan This 59-year-old gentleman is being admitted for small bowel obstruction. Patient has history of rectal cancer status post APR. He had chemotherapy and radiation 4 months ago and then last chemo about 10 days ago. 1. Small bowel obstruction with history of colorectal cancer status post APR and colostomy: Patientis being admitted MedSurg floor. IV fluid Ringer lactateat 100 mL/h. NG suction at low intermittentwall suction. Monitor bowel emptying. Surgery Dr. Chandler is consulted. CT abdomen images shows multiple distended small bowel loops with largest measuring 3.7 cm. 02/25: Small bowel series shows contrast in the stomach with collection in duodenum and proximal jejunum at 1 hour. Multiple dilated small bowel loops predominantly in the left side. As per surgeon, there is less chance of conservative management therefore surgery was recommended and patient agreed. P chelle for surgery today. Mild hypokalemia, electrolyte replacement ordered. 2. CA rectum: He follows Dr. Ho. Had C8 FOLFOX on 02/14/2025. Prior to that he finished chemotherapy on 08/13/2024 and radiation on 08/17/2024. 3. Bilateral hydronephrosis status post bilateral nephrostomy in September 2024 in [facility]: Urine in bilateral nephrostomy bag is dark-colored. IV fluid hydration. CT scan does not show hydronephrosis 4. History of DVT in the past: Unclear about it location but patient said it was in right thigh. Unclear about the reason why did not complete full course of anticoagulation but he said he had Lovenox and aspirin during hospitalizationin [facility]. 5. Irregular rhythm: Twelve-lead EKG shows sinus rhythm with PAC, LAD at 85 bpm.Denies history of A-fib. 6. DVT prophylaxis, high risk: Lovenox 40 mg subcu daily Living will/advanced directive/end of life care: Patient does not have living will or advanced directive but in the process of making living well. After discussion of benefits/risks procedures involved with full code, DNR CC arrest and DNR CC, the patient and his opted for full code Patient does want artificial life support including intubation, tube feed, ventilator and/chest compression, central venous catheter, vasopressor and DC shock if needed Total time spent in [id number] encounter in discussion of advanced directive 17 minutes. Laboratory Results 02/24/25 07:35: Phosphorus 2.7, Magnesium 2.1 02/24/25 16:35: Urine Color Yellow, Urine Clarity Turbid, Urine pH 6.0, Ur Specific [place] 1.025, Urine Protein 500 H, Urine Glucose (UA) Normal, Urine Ketones 15 H, Urine Occult Blood 250 H, Urine Nitrite Negative, Urine Bilirubin Negative, Urine Urobilinogen Normal, Ur Leukocyte Esterase 500 H, Urine RBC 25- 50 SEEN, Urine WBC >100 SEEN, Ur Squamous Epith Cells 0 SEEN, Calcium Oxalate Crystal 1+, Urine Bacteria 2+, Urine Mucus 0 SEEN 02/25/25 06:40: WBC 8.3, RBC 3.70 L, Hgb 12.5 L, Hct 35.7 L, MCV 96.5 H, MCH 33.8 H, MCHC 35.0, RDWStd Deviation 52.5 H, RDW Coeff of Rosalee 15.2 H, Plt Count 113 L, MPV 9.4, Immature Gran % (Auto) 0.500, Neut % (Auto) 80.9 H, Lymph % (Auto) 6.2 L, [place] % (Auto) 11.9 H, Eos % (Auto) 0.1, Baso % (Auto) 0.4, Absolute Neuts (auto) 6.7, Absolute Lymphs (auto) 0.51 L, Nucleated RBC % 0, Sodium 142, Potassium 3.2 L, Chloride 99, Carbon Dioxide 29.5, Anion Gap 14, BUN21 H, Creatinine 1.51 H, Estim Creat Clear Calc 36.73 L, Est GFR (MDRD) Non- Af 53 L, BUN/Creatinine Ratio 13.7, [id number] H, Calcium 9.6 Clinical Impression(s) from Imaging Studies Abdomen CT 02/24/25 07:20 IMPRESSION: 1. Multiple distended small bowel loops with differential air-fluid levels measuring up to 3.7 cm, concerning for small bowel obstruction with possible transition in the right lower abdominal quadrant. 2. Bladder wall thickening which may be due to the decompressed state of the bladder or due to cystitis. 3. Small esophageal hiatal hernia. 4. Inguinal hernias, bilaterally. Reading Location: [facility] KUB X-Ray 02/24/25 11:25 IMPRESSION: Tip of the nasogastric tube in the fundus of the stomach. Bilateral nephrostomy catheters. Bowel-gas pattern suggest adynamic/reflex ileus. Reading Location: [facility] Charges/Coding Visit Charges Inpatient E&M: 28754 Subs Hosp L2 02/25/25 1259 Cosigner Signature (if applicable): CC: ~ Signed [facility]05-09-2025 Consult note [facility] Medical Records Department [address] [place] [id number] Pre-Anesthesia Evaluation 02/25/25 1159 MR#: [id number] Acct: [id number] Name: ANDREW POSADA Rep #:[id number] : 1965 59 From: Forrest Lancaster MD PCP: Care Physician,No Primary Status :ADM IN Y Race: C Location: [place] [address] ASA Classification* ASA Classification ASA Classification: 3 and E Assessment & Plan Anesthesia* Anesthesia Assessment Anesthesia Assessment: Discussed sedation and/or anesthesia options, risks, benefits, and alternatives with patient/parents/legal guardian/POA. Questions invited. The patient/parents/legal guardian/POA seems to understand and agrees to proceedwith anesthesia plan. Reviewed the physical assessment, medical history, allergy history and patient home medications list prior to surgery/procedure/anesthetic and documented any changes. Performed airway and anesthesia risk assessments. Anesthesia Type Anesthesia Type: General History Source History Obtained from:: Patient, Chart and Significant Other Anesthesia Focused Assessment* Temperature: 98.3 F Pulse Rate: 76 Blood Pressure: 168/112 Respiratory Rate: 16 Pulse Ox: 96 Oxygen Delivery Method: Room Air Vital signs additional comments: NG tube clamped in right nare Airway Assessment Mouth opens: >3 cm Mallampati Score: II Teeth Condition: Loose (bottom front two teeth ) Neck Range of motion (ROM): Full ROM Focused Labs Anesthesia Preop lab: CBC WBC 8.3 K/mm3 (4.4-11.0) 02/25/25 06:40 02/25/25 RBC 3.70 M/mm3 (4.6-6.2) L 02/25/25 06:40 02/25/25 Hgb 12.5 g/dL (13.0-16.5) L 02/25/25 06:40 5 Hct 35.7 % (40-54) L 02/25/25 06:40 02/25/25 Plt Count 113 K/mm3 (150-450) L 02/25/25 06:40 02/25/25 CHEMISTRY Potassium 3.2 mmol/L (3.3-5.1) L 02/25/25 06:40 02/25/25 Sodium 142 mmol/L (133-145) 02/25/25 06:40 02/25/25 Magnesium 2.1 mg/dL (1.5-2.2) 02/24/25 07:35 02/24/25 Phosphorus 2.7 mg/dL (2.7-4.5) 02/24/25 07:35 02/24/25 BUN 21 mg/dL (4-19) H 02/25/25 06:40 02/25/25 Creatinine 1.51 mg/dL (0.70-1.20) H 02/25/25 06:40 Glucose 121 mg/dL (70-99) H 02/25/25 06:40 02/25/25 TSH 2.080 uIU/mL (0.358-3.740) 11/08/24 07:45 10/21 COAG Pre-Assessment Diagnosis/Proposed Procedure Planned Operative Procedure(s): diagnostic laparoscopy vs ex-lap Anesthesia History 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 When Was Last Pacemaker Check QUESTION #4 FULL TEXT: You/Your Family Experience fever (hyperthermia) with Anesthesia Last Oral Intake Last Oral intake: Last Oral Intake NPO since Meds taken in AM with sips of water? Meds patient instructed to take am of surgery PONV PONV - asphalt spreader: PONV - asphalt spreader Female HX of Motion Sickness HX of N/V After Surgery Non-Smoker Duration of Surgery greater than 60 minutes Number of Risk Factors PONV Score Height & Weight Height & Weight: Anesthesia: Height & Weight Height 5 ft 8.11 in 02/25/25 11:32 Weight: 49.3 kg 02/25/25 11:32 Body Mass Index (BMI) 16.5 02/25/25 06:00 Respiratory Assessment Respiratory Assessment - asphalt spreader: Respiratory Tract Infection Hx - asphalt spreader Hx Respiratory Tract Infection No 07/14/24 13:14 STOP Sleep Apnea STOP Sleep Apnea - asphalt spreader: STOP Sleep Apnea - asphalt spreader Hx Hypertension Yes 02/24/25 16:30 Hx Sleep Apnea No 02/24/25 12:38 CPAP BIPAP Do you snore loudly (louder No 02/24/25 12:38 than talking or can be heard Do you often feel tired/ No 02/24/25 12:38 fatigued/ sleepy during daytime? Has anyone observed you stop No 02/24/25 12:38 breathing during sleep? STOP Results Negative 02/24/25 12:38 QUESTION #5 FULL TEXT : Do you snore loudly (louder than talking or can be heard through closeddoors)? 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 Specify any problems Hx of Preganancy in last 3 N/A 02/24/25 12:38 Months Nurse Filling Out Transfusion JDIAL 02/24/25 12:38 & Questions: Date: 02/24/25 02/24/25 12:38 Time: 12:46 02/24/25 12:38 Patient unable to answer at this time (ie. confused, unrespo /Reproduction History /Reproductive History - asphalt spreader: /Reproductive Hx- asphalt spreader Hx Now Gestational Age (in weeks): EDC: Hx Hx Para Hx Section SAB No 07/14/24 13:14 Active Medications Active Medications: Current Medications Generic Name Dose Route Start Last Admin Trade Name Freq PRN Reason Stop Dose Admin Acetaminophen 650 mg 02/24/25 12:29 Acetaminophen 325 Mg Tablet PO Q6H PRN PRN Pain 1-10 Or Fever >100.7 Enoxaparin Sodium 40 mg 02/24/25 12:29 02/24/25 13:13 Enoxaparin 40 Mg/0.4 Ml Syringe SC 40 mg Q24 FREDA Administration Hydralazine HCl 5 mg 02/25/25 08:54 02/25/25 11:29 Hydralazine 20 Mg/Ml Vial IV 5 mg Q4H PRN PRN Administration SBP >160 mmHg Protocol Lactated Ringer's 1,000 mls @ 100 mls/hr 02/25/25 11:00 02/25/25 11:10 IV 02/26/25 06:59 100 mls/hr .Q10H FREDA Administration Labetalol HCl 10 mg 02/25/25 08:54 Labetalol 20mg/4ml Syringe IV Q4H PRN PRN sbp> 180 Protocol Morphine Sulfate 2 - 4 mg 02/24/25 12:29 Morphine 2 Mg/Ml Syringe IV Q3H PRN PRN Pain Score 4-10 Prochlorperazine Edisylate 5 mg 02/24/25 12:29 Prochlorperazine 10 Mg/2 Ml Vial IV Q4H PRN PRN Breakthrough nausea/vomiting Sodium Chloride 10 - 40 ml 02/24/25 13:18 02/25/25 11:30 0.9% Saline Lock 10 Ml Syringe IV 10 ml UD PRN Administration Port-a-Cath (VAD)/R Port Flush Sodium Chloride 10 - 40 ml 02/24/25 13:18 0.9 % Nacl (Sterile) Posiflush 10 Ml IV UD PRN Port access or dressing change [facility] Medical History Hypokalemia UTI (urinary tract infection) CINV (chemotherapy-induced nausea and vomiting) Cloudy urine Bradycardia Prerenal azotemia Constipation Hypoalbuminemia Wears glasses Cancer DVT (deep venous thrombosis) Syncope Non-smoker Cataract (lens) fragments in eye following cataract surgery, bilateral Mandeep blood in stool Chronic diarrhea of unknown origin Change in bowel habit Colon cancer Home Medications ?Medication ?Instructions ?Recorded ?Last Taken ?Type sennosides 8.6 mg capsule (senna) 8.6 mg PO QHS PRN co nstipation 09/24/24 10/10/24 History ondansetron 8 mg disintegrating 8 mg PO Q8H PRN nausea and 11/22/24 Unknown Rx tablet vomiting #30 tabs Allergy/AdvReac Type Severity Reaction Status Date / Time No Known Allergies Allergy Verified 02/14/25 09:48 Family History Son Cancer Surgical History H/O hernia repair S/P colonoscopy H/O colectomy History of creation of ostomy Social History household members: spouse Smoking Status: Never smoker alcohol intake: never substance use type: does not use Review of Systems (Anesthesia) ROS Narrative System reviewed and no additional complaints, except as documented. Physical Exam Const alert and oriented x3 Resp normal respiratory effort Cardio regular rate Neuro oriented x3 02/25/25 1227 D> Date _ Forrest Lancaster MD Cosigner Signature: Date CC: ~ Signed [facility]05-09-2025 Progress note [facility] Medical Records Department [address] [place] [address] Progress Note - Surgery 02/25/25 1150 MR#: [id number] Acct: [id number] Name: ANDREW POSADA Rep #:[id number] : 1965 59 From: Kunal Chandler MD PCP: Care Physician,No Primary Status :ADM IN Location: [facility] [id number] Subjective Subjective Small bowel follow-through was attempted today however patient developed emesis shortly after contrast was instilled by NG tube. Images today show bowel gas pattern consistent with small bowel obstruction. Given these findings, I suspect the success of conservative management of his bowel obstruction would below. As result I offered surgery. We discussed the details of the planned procedure and he wishes to proceed. This will begin shortly Objective Data Objective Data Vital Signs: Vital Signs Temp Pulse Resp BP Pulse Ox O2 Del Method 98.3 F 76 16 168/112 H 96 Room Air 02/25/25 11:16 02/25/25 11:29 02/25/25 11:16 02/25/25 11:29 02/25/25 11:16 02/25/25 11:16 Oxygen Delivery Method Room Air Weight: 108 lb 11.006 oz Body Mass Index (BMI) 16.5 Intake & Output: Intake and Output for Last 24 Hours 02/23/25 02/24/25 02/25/25 23:59 23:59 23:59 Intake Total 1569.58 / 1629.58 1090 / 1090 Output Total 200 / 800 1350 / 1350 Balance 1369.58 / 829.58 -260 / -260 Lab / Micro Data 02/25/25 06:40 02/25/25 06:40 Labs: Laboratory Results - last 24 hr 02/24/25 07:35: Phosphorus 2.7, Magnesium 2.1 02/24/25 16:35: Urine Color Yellow, Urine Clarity Turbid, Urine pH 6.0, Ur Specific [place] 1.025, Urine Protein 500 H, Urine Glucose (UA) Normal, Urine Ketones 15 H, Urine Occult Blood 250 H, Urine Nitrite Negative, Urine Bilirubin Negative, Urine Urobilinogen Normal, Ur Leukocyte Esterase 500 H, Urine RBC 25- 50 SEEN, Urine WBC >100 SEEN, Ur Squamous Epith Cells 0 SEEN, Calcium Oxalate Crystal 1+, Urine Bacteria 2+, Urine Mucus 0 SEEN 02/25/25 06:40: WBC 8.3, RBC 3.70 L, Hgb 12.5 L, Hct 35.7 L, MCV 96.5 H, MCH 33.8 H, MCHC 35.0, RDWStd Deviation 52.5 H, RDW Coeff of Rosalee 15.2 H, Plt Count 113 L, MPV 9.4, Immature Gran % (Auto) 0.500, Neut % (Auto) 80.9 H, Lymph % (Auto) 6.2 L, [place] % (Auto) 11.9 H, Eos % (Auto) 0.1, Baso % (Auto) 0.4, Absolute Neuts (auto) 6.7, Absolute Lymphs (auto) 0.51 L, Nucleated RBC % 0, Sodium 142, Potassium 3.2 L, Chloride 99, Carbon Dioxide 29.5, Anion Gap 14, BUN21 H, Creatinine 1.51 H, Estim CreatClear Calc 36.73 L, Est GFR (MDRD) Non-Af 53 L, BUN/Creatinine Ratio 13.7, Glucose 121 H, Calcium 9.6 Radiography Diagnostic Testing: Radiology Impression KUB X-Ray 02/24/25 11:25 IMPRESSION: Tip of the nasogastric tube in the fundus of the stomach. Bilateral nephrostomy catheters. Bowel-gas pattern suggest adynamic/reflex ileus. Reading Location: [facility] Small Bowel X-Ray 02/25/25 08:25 IMPRESSION: On initial imaging, nasogastric tube position is unchanged. Bilateral nephrostomy tubes are unchanged in position. Multiple dilated small bowel loops are seen throughout the abdomen, predominantly centrally into the left; this is consistent with small-bowel obstruction or adynamic ileus. Some contrast is seen extending to the proximal jejunum, at the 1 hour film. Following this, the patient reportedly vomited the remaining gastric contrast. The study was then terminated by Dr. Chandler. Reading Location: [place] [address] 02/25/25 1151 Cosigner Signature (if applicable): CC: ~ Signed [facility]05-09-2025 Radiology Diagnostic study note [facility] Imaging Services [address] [place] [address] Small Bowel Series Only MR#: [id number] Acct: [id number] Name: TIMANETTEANDREW A Rep #: [id number] : 1965 M 59 From: Armond Barajas MD PCP: Care Physician,No Primary Status: ADM IN Study:Small Bowel Series Only Date of Exam: 02/25/25 Exam# [id number] Ordering Dr: St ghada Chandler MD EXAM: Small bowel series. CLINICAL HISTORY: Small-bowel obstruction. COMPARISON: Limited abdomen study of 02/24/2025. TECHNIQUE: Small bowel series. Study was performed with installation through nasogastric tube of 240 mL 50% dilution Gastrografin. RAD/Small Bowel Series Only IMPRESSION: On initial imaging, nasogastric tube position is unchanged. Bilateral nephrostomy tubes are unchanged in position. Multiple dilated small bowel loops are seen throughout the abdomen, predominantly centrally into the left; this is consistent with small-bowel obstruction or adynamic ileus. Some contrast is seen extending to the proximal jejunum, at the 1 hour film. Following this, the patient reportedly vomited the remaining gastric contrast. The study was then terminated by Dr. Chandler. Reading Location: [place] [address] CC: Dr. Kunal Chandler MD; No Primary Care Physician ~ Bilingual Medical Assistant: Signed [facility]05-09-2025 Progress note Author Kunal Chandler [facility] Note Date/Time February 25, 2025 8:38am [facility] Medical Records Department [address] [place] [address] Progress Note - Surgery 02/25/25 0834 MR#: [id number] Acct: [id number] Name: ANDREW POSADA Rep #:[id number] : 1965 59 From: Kunal Chandler MD PCP: Care Physician,No Primary Status :ADM IN Location: MS3 [id number] Subjective Subjective Patient feeling better this morning as he states that his abdominal pain is less. He is also been having some increasing liquid stool in his ostomy bag. No further episodes of nausea or vomiting. He did have some hiccuping this morning. No fevers or chills. Objective Data Objective Data Vital Signs: Vital Signs Temp Pulse Resp BP Pulse Ox O2 Del Method 97.7 F L 77 20 H 172/107 H 98 Room Air 02/25/25 06:55 02/25/25 06:55 02/25/25 06:55 02/25/25 06:55 02/25/25 08:12 02/25/25 08:12 Oxygen Delivery Method Room Air Weight: 108 lb 11.006 oz Body Mass Index (BMI) 16.5 Intake & Output: Intake and Output for Last 24 Hours 02/23/25 02/24/25 02/25/25 23:59 23:59 23:59 Intake Total 1569.58 / 1629.58 90 / 90 Output Total 200 / 800 1050 / 1050 Balance 1369.58 / 829.58 -960 / -960 Lab / Micro Data 02/25/25 06:40 02/25/25 06:40 Labs: Laboratory Results - last 24 hr 02/24/25 07:35: Phosphorus 2.7, Magnesium 2.1 02/24/25 16:35: Urine Color Yellow, Urine Clarity Turbid, Urine pH 6.0, Ur Specific [place] 1.025, Urine Protein 500 H, Urine Glucose (UA) Normal, Urine Ketones 15 H, Urine Occult Blood 250 H, Urine Nitrite Negative, Urine Bilirubin Negative, Urine Urobilinogen Normal, Ur Leukocyte Esterase 500 H, Urine RBC 25-50 SEEN, Urine WBC >100 SEEN, Ur Squamous Epith Cells 0 SEEN, Calcium Oxalate Crystal 1+, Urine Bacteria 2+, Urine Mucus 0 SEEN 02/25/25 06:40: WBC 8.3, RBC 3.70 L, Hgb 12.5 L, Hct 35.7 L, MCV 96.5 H, MCH 33.8 H, MCHC 35.0, RDW Std Deviation 52.5 H, RDW Coeff of Rosalee 15.2 H, Plt Count 113 L, MPV 9.4, Immature Gran % (Auto) 0.500, Neut % (Auto) 80.9 H, Lymph % (Auto) 6.2 L, Rawlins % (Auto) 11.9 H, Eos % (Auto) 0.1, Baso % (Auto) 0.4, Absolute Neuts (auto) 6.7, Absolute Lymphs (auto) 0.51 L, Nucleated RBC % 0, Sodium 142, Potassium 3.2 L, Chloride 99, Carbon Dioxide 29.5, Anion Gap 14, BUN21 H, Creatinine 1.51 H, Estim Creat Clear Calc 36.73 L, Est GFR (MDRD) Non-Af 53 L, BUN/Creatinine Ratio 13.7, Glucose 121 H, Calcium 9.6 Radiography Diagnostic Testing: Radiology Impression Abdomen CT 02/24/25 07:20 IMPRESSION: 1. Multiple distended small bowel loops with differential air-fluid levels measuring up to 3.7 cm, concerning for small bowel obstruction with possible transition in the right lower abdominal quadrant. 2. Bladder wall thickening which may be due to the decompressed state of the bladder or due to cystitis. 3. Small esophageal hiatal hernia. 4. Inguinal hernias, bilaterally. [facility] 02/24/25 11:25 IMPRESSION: Tip of the nasogastric tube in the fundus of the stomach. Bilateral nephrostomy catheters. Bowel-gas pattern suggest adynamic/reflex ileus. Reading Location: [facility] Physical Exam Narrative He is alert and oriented x 3. He is in no acute distress. NG tube is in place. Abdomen is softer and less distended. There is a small amount of liquid stool in his colostomy bag. RN stated that night clerk auditor nurse just recently emptied a fairly full bag at shift change. Assessment & Plan Assessment/Plan (1) SBO (small bowel obstruction): PLAN: The patient is a 59-year-old male with a history of rectal cancer status post a bowel resection with end colostomy. He presents with a small bowel obstruction. He had a recent bowel obstruction in September which resolved spontaneously. He seems to be improving this morning as there is some return of bowel function. I am recommending a small bowel follow-through this morning. This could be bothdiagnostic and therapeutic We will await the results of the small bowel follow-through. If this appears normal, I would likely recommend removing the NG tube and beginning a trial of clear liquids Patient and his are agreeable to this plan. Dr. Paredes to cover weekend. 02/25/25 0838 <Electronically signed by Kunal Chandler MD> Cosigner Signature (if applicable): CC: ~ Signed [facility] Work Phone: 1(110) 746-899905-09-2025 Progress note [facility] Medical Records Department [address] [place] [address] Progress Note - Surgery 02/25/25 0834 MR#: [id number] Acct: [id number] Name: ANDREW POSADA Rep #:[id number] : 1965 59 From: Kunal Chandler MD PCP: Care Physician,No Primary Status :ADM IN Location: [place] [id number] Subjective Subjective Patient feeling better this morning as he states that his abdominal pain is less. He is also been having some increasing liquid stool in his ostomy bag. No further episodes of nausea or vomiting. He did have some hiccuping this morning. No fevers or chills. Objective Data Objective Data Vital Signs: Vital Signs Temp Pulse Resp BP Pulse Ox O2 Del Method 97.7 F L 77 20 H 172/107 H 98 Room Air 02/25/25 06:55 02/25/25 06:55 02/25/25 06:55 02/25/25 06:55 02/25/25 08:12 02/25/25 08:12 Oxygen Delivery Method Room Air Weight: 108 lb 11.006 oz Body Mass Index (BMI) 16.5 Intake & Output: Intake and Output for Last 24 Hours 02/23/25 02/24/25 02/25/25 23:59 23:59 23:59 Intake Total 1569.58 / 1629.58 90 / 90 Output Total 200 / 800 1050 / 1050 Balance 1369.58 / 829.58 -960 / -960 Lab / Micro Data 02/25/25 06:40 02/25/25 06:40 Labs: Laboratory Results - last 24 hr 02/24/25 07:35: Phosphorus 2.7, Magnesium 2.1 02/24/25 16:35: Urine Color Yellow, Urine Clarity Turbid, Urine pH 6.0, Ur Specific [place] 1.025, Urine Protein 500 H, Urine Glucose (UA) Normal, Urine Ketones 15 H, Urine Occult Blood 250 H, Urine Nitrite Negative, Urine Bilirubin Negative, Urine Urobilinogen Normal, Ur Leukocyte Esterase 500 H, Urine RBC 25- 50 SEEN, Urine WBC >100 SEEN, Ur Squamous Epith Cells 0 SEEN, Calcium Oxalate Crystal 1+, Urine Bacteria 2+, Urine Mucus 0 SEEN 02/25/25 06:40: WBC 8.3, RBC 3.70 L, Hgb 12.5 L, Hct 35.7 L, MCV 96.5 H, MCH 33.8 H, MCHC 35.0, RDWStd Deviation 52.5 H, RDW Coeff of Rosalee 15.2 H, Plt Count 113 L, MPV 9.4, Immature Gran % (Auto) 0.500, Neut % (Auto) 80.9 H, Lymph % (Auto) 6.2 L, Rawlins % (Auto) 11.9 H, Eos % (Auto) 0.1, Baso % (Auto) 0.4, Absolute Neuts (auto) 6.7, Absolute Lymphs (auto) 0.51 L, Nucleated RBC % 0, Sodium 142, Potassium 3.2 L, Chloride 99, Carbon Dioxide 29.5, Anion Gap 14, BUN21 H, Creatinine 1.51 H, Estim CreatClear Calc 36.73 L, Est GFR (MDRD) Non-Af 53 L, BUN/Creatinine Ratio 13.7, Glucose 121 H, Calcium 9.6 Radiography Diagnostic Testing: Radiology Impression Abdomen CT 02/24/25 07:20 IMPRESSION: 1. Multiple distended small bowel loops with differential air-fluid levels measuring up to 3.7 cm, concerning for small bowel obstruction with possible transition in the right lower abdominal quadrant. 2. Bladder wall thickening which may be due to the decompressed state of the bladder or due to cystitis. 3. Small esophageal hiatal hernia. 4. Inguinal hernias, bilaterally. Reading Location: [facility] X-[facility] 02/24/25 11:25 IMPRESSION: Tip of the nasogastric tube in the fundus of the stomach. Bilateral nephrostomy catheters. Bowel-gas pattern suggest adynamic/reflex ileus. Reading Location: [facility] Physical Exam Narrative He is alert and oriented x 3. He is in no acute distress. NG tube is in place. Abdomen is softer and less distended. There is a small amount of liquid stool in his colostomy bag. RN stated that night clerk auditor nurse justrecently emptied a fairly full bag at shift change. Assessment & Plan Assessment/Plan (1) SBO (small bowel obstruction): PLAN: The patient is a 59-year-old male with a history of rectal cancer status post a bowel resection with end colostomy. He presents with a small bowel obstruction. He had a recent bowel obstruction in September which resolved spontaneously. He seems to be improving this morning as there is some return of bowel function. I am recommending a small bowel follow-through this morning. This could be bothdiagnostic and therapeutic We will await the results of the small bowel follow-through. If this appears normal, I would likelyrecommend removing the NG tube and beginning a trial of clear liquids Patient and his are agreeable to this plan. Dr. Paredes to cover weekend. 02/25/25 0838 Cosigner Signature (if applicable): CC: ~ Signed [facility]05-08-2025 Consult note Author Kunal Chandler [facility] Note Date/Time February 24, 2025 4:07pm [facility] Medical Records Department [address] [place] [address] Consultation - Surgical 02/24/25 1601 MR#: [id number] Acct: [id number] Name: ANDREW POSADA Rep #:[id number] : 1965 59 From: Kunal Chandler MD PCP: Care Physician,No Primary Status :ADM IN Location: [id number] Assessment & Plan Assessment/Plan (1) SBO (small bowel obstruction): PLAN: Plan The patient is a 59-year-old male with a history of colon cancer treated surgically about a year ago and has just completed chemotherapy. He presents with a small bowel obstruction. He had a previous bowel obstruction and September which resolved spontaneously without the need for surgery. He has beenadmitted to the medicine service and a surgical consult was placed. I am recommending continued n.p.o. and NG tube decompression. Also recommend IV fluid hydration. Ideally I would like to obtain a small bowel follow-through however he is still having some nausea and vomiting this afternoon. I am recommending that we decompressed him overnight and likely plan for small bowel follow-through in a.m. The patient and his are understanding of this plan and are in agreement. We will continue to follow along and advise accordingly. HPI Consult Data Date of Consult: 02/24/25 HPI Narrative Reason for Consultation: Small bowel obstruction HPI Narrative: ANDREW POSADA, is a 59 M who presents to the emergency department here at [facility] with complaints of nausea, vomiting and abdominal pain over thelast 4 to 5 days. Patient has a history of a colon resection with colostomy last year. This was performed in [place] for malignancy. He is currently being seen by oncology here at [facility]. He just recently completed a 4-monthregimen of chemotherapy. Patient states that he has been unable to eat over thelast several days due to nausea and vomiting. He presented to the emergency department today with these complaints. He was seen evaluated by the ER staff. He underwent CT scan that showed small bowel obstruction. Patient had a previous small bowel obstruction treated back in September at [facility]. This resolvedspontaneously without need for surgery. He also had bilateral nephrostomy tubesplaced at that time as well. He does admit to some recent constipation issues however over the last 2 days he has not had any significant ostomy output although he does admit to a small amount of liquid stool this afternoon since being admitted. Nasogastric tube was placed in the emergency room. This appears to have removed about 400 cc thus far. He does state that he is still feeling somewhat nauseated and had a small emesis since arriving on the floor. Surgical consult was obtained for recommendations and treatment for the small bowel obstruction . [facility] Medical History Hypokalemia UTI (urinary tract infection) CINV (chemotherapy-induced nausea and vomiting) Cloudy urine Bradycardia Prerenal azotemia Constipation Hypoalbuminemia Wears glasses Cancer DVT (deep venous thrombosis) Syncope Non-smoker Cataract (lens) fragments in eye following cataract surgery, bilateral Mandeep blood in stool Chronic diarrhea of unknown origin Change in bowel habit Colon cancer Home Medications ?Medication ?Instructions ?Recorded ?Last Taken ?Type sennosides 8.6 mg capsule (senna) 8.6 mg PO QHS PRN co nstipation 09/24/24 10/10/24 History ondansetron 8 mg disintegrating 8 mg PO Q8H PRN nausea and 11/22/24 Unknown Rx tablet vomiting #30 tabs Allergy/AdvReac Type Severity Reaction Status Date / Time No Known Allergies Allergy Verified 02/14/25 09:48 Family History Son Cancer Surgical History H/O hernia repair S/P colonoscopy H/O colectomy History of creation of ostomy Social History household members: spouse Smoking Status: Never smoker alcohol intake: never substance use type: does not use Physical Exam Narrative He is alert and oriented x 3. He is in no acute distress. Head is normocephalic and atraumatic. NG tube in place. Pupils are equal round and reactive to light. Abdomen is soft and slightly distended. Very minimal tenderness with palpation. There is a small amount of liquid stool within the ostomy bag. No significant flatus Lab / Micro Data 02/24/25 07:35 02/24/25 07:35 Labs: Laboratory Results - last 24 hr 02/24/25 07:35: WBC 7.8, RBC 3.77 L, Hgb 12.6 L, Hct 35.1 L, MCV 93.1, MCH 33.4 H, MCHC 35.9, RDW Std Deviation 49.7 H, RDW Coeff of Rosalee 14.9 H, Plt Count 111 L, MPV 9.5, Immature Gran % (Auto) 0.400, Neut % (Auto) 84.7 H, Lymph % (Auto) 4.5 L, Rawlins % (Auto) 9.9, Eos % (Auto) 0.1, Baso % (Auto) 0.4, Absolute Neuts (auto) 6.6, Absolute Lymphs (auto) 0.35 L, Nucleated RBC % 0, Sodium 138, Potassium 3.3, Chloride 98, Carbon Dioxide 27.3, Anion Gap 12, BUN 17, Creatinine 1.39 H, Estim Creat Clear Calc 39.01 L, Est GFR (MDRD) Non-Af 58 L, BUN/Creatinine Ratio 12.2, Glucose 112 H, Calcium 9.8, Phosphorus 2.7, Magnesium2.1, Total Bilirubin 0.72, AST 35, ALT 16, Alkaline Phosphatase 128, Total Protein 7.1, Albumin 3.8, Globulin 3.3, Albumin/Globulin Ratio 1.1, Lipase 109 H Imaging Radiology Impression Abdomen CT 02/24/25 07:20 IMPRESSION: 1. Multiple distended small bowel loops with differential air-fluid levels measuring up to 3.7 cm, concerning for small bowel obstruction with possible transition in the right lower abdominal quadrant. 2. Bladder wall thickening which may be due to the decompressed state of the bladder or due to cystitis. 3. Small esophageal hiatal hernia. 4. Inguinal hernias, bilaterally. Reading Location: [facility] X-Ray 02/24/25 11:25 IMPRESSION: Tip of the nasogastric tube in the fundus of the stomach. Bilateral nephrostomy catheters. Bowel-gas pattern suggest adynamic/reflex ileus. Reading Location: [facility] Charges/Coding Visit Charges Inpatient E&M: 06945 Init Hosp L3 02/24/25 1607 <Electronically signed by Kunal Chandler MD> Cosigner Signature (if applicable): CC: No Primary Care Physician~ Signed [facility] Work Phone: [phone]) 387-210905-08-2025 History and physical note Author Handy Royal [facility] Note Date/Time February 24, 2025 3:27pm [facility] Medical Records Department [address] [place] [address] H&P Exam - Hospitalist 02/24/25 1129 MR#: [id number] Acct: [id number] Name: ANDREW POSADA Rep #:[id number] : 1965 59 From: Handy Harris PCP: Care Physician,No Primary Status :ADM IN Location: [facility]3 [id number] HPI - General General Date of Admission: 02/24/25 Date of Service: 02/24/25 Chief Complaint: Last BM Friday night. Not passing flatus at home. HPI Narrative ANDREW POSADA, is a 59 M Was admitted with not moving his bowel, nausea vomitingsince Friday night. His last bowel movement on Friday was well-formed with noblood. He had APR with colostomy in [place] in March 2024. Prior to that he had chemotherapy about 10 days to 2 weeks ago, second chemotherapy regimen after 4 months. Denies fever or chills. In September 2024 he had bilateral nephrostomy in [facility], [facility]. In ED, patient had CT abdomen which showed multiple distended small bowel loops with air-fluid levels measuring up to 3.7 cm concerning for small bowel obstruction and possible transition in RLQ. [facility] Medical History Hypokalemia UTI (urinary tract infection) CINV (chemotherapy-induced nausea and vomiting) Cloudy urine Bradycardia Prerenal azotemia Constipation Hypoalbuminemia Wears glasses Cancer DVT (deep venous thrombosis) Syncope Non-smoker Cataract (lens) fragments in eye following cataract surgery, bilateral Mandeep blood in stool Chronic diarrhea of unknown origin Change in bowel habit Colon cancer Home Medications ?Medication ?Instructions ?Recorded ?Last Taken ?Type sennosides 8.6 mg capsule (senna) 8.6 mg PO QHS PRN co nstipation 09/24/24 10/10/24 History ondansetron 8 mg disintegrating 8 mg PO Q8H PRN nausea and 11/22/24 Unknown Rx tablet vomiting #30 tabs Allergy/AdvReac Type Severity Reaction Status Date / Time No Known Allergies Allergy Verified 02/14/25 09:48 Family History Son Cancer Surgical History H/O hernia repair S/P colonoscopy H/O colectomy History of creation of ostomy Social History household members: spouse Smoking Status: Never smoker alcohol intake: never substance use type: does not use ROS ROS Narrative Constitutional: Reports fatigue and weakness. No fever. HEENT: Reports systems reviewed and no addt'l complaints, except as documented Respiratory/Chest: No acute shortness of breath or respiratory distress or wheezing. CVS: No chest pain or shortness of breath. Denies history of A-fib Gastrointestinal: Denies coffee ground emesis, hematemesis or vomiting Genitourinary: Denies burning urination or new urinary tract symptoms Musculoskeletal: Denies acute joint pain or limited range of motion. No acute injury Neurologic: Denies seizure-like symptoms. skin: No ulcer. No rash Endocrinology: Reports systems reviewed and no addt'l complaints, except as documented Hematologic/Lymphatic: Reports systems reviewed and no addt'l complaints, exceptas documented Rest 14 ROS are negative except as mentioned in HPI Vital Signs Vital Signs Vital Signs: 02/24/25 06:52 02/24/25 06:56 02/24/25 07:42 Temperature 98.4 F 98.4 F Temperature Source Oral Oral Pulse Rate 79 68 Respiratory Rate 16 16 Respiratory Effort Normal Non-Labored Respiratory Pattern Normal Blood Pressure 172/112 H 172/113 H Blood Pressure Mean 132 132 Pulse Ox 97 98 Oxygen Delivery Method Room Air Room Air 02/24/25 07:56 02/24/25 08:00 02/24/25 09:00 Temperature 98.6 F 98.6 F 98.3 F Temperature Source Oral Oral Oral Pulse Rate 81 81 91 Respiratory Rate 15 16 17 Respiratory Effort Respiratory Pattern Blood Pressure 168/112 H 158/100 H 168/108 H Blood Pressure Mean 130 119 128 Pulse Ox 98 98 98 Oxygen Delivery Method Room Air Room Air Room Air 02/24/25 10:00 02/24/25 11:09 Temperature 98.3 F 98.3 F Temperature Source Oral Pulse Rate 84 84 Respiratory Rate 18 18 Respiratory Effort Respiratory Pattern Blood Pressure 166/112 H 166/112 H Blood Pressure Mean 130 130 Pulse Ox 98 98 Oxygen Delivery Method Room Air Weight Weight: 106 lb 4.205 oz Body Mass Index (BMI) 16.1 Physical Exam Narrative General: Alert, Oriented x3, Cooperative HEENT: Atraumatic, PERRLA, EOMI, Normocephalic. Oral: Oral mucosa dry no Gingival or Mucosal Lesions/ Ulcerations Neck: Supple, No JVD, Negative Carotid Bruits Chest wall/Lungs: Air entry diminished in bilateral lung bases. No crepitation/rhonchi Cardiovascular: Irregular rhythm normal S1,S2, systolic murmur Abdomen: Bowel Sounds hyper, soft, Non Tender, colostomy. Not very distended : Bilateral nephrostomy tube, dark urine. No renal angle tenderness. No suprapubic tenderness. Extremities: No edema, Capillary Refill Less than 3 Seconds Skin: No rashes, No breakdown Musculoskeletal: No Tenderness to Palpation of Joints or Extremities Neurological: Cranial nerves II-XII grossly intact, DTR 2+/4. No acute focal neurological deficit. Psych/Mental Status: Normal Affect, Appropriate. Results Lab / Micro Data 02/24/25 07:35 02/24/25 07:35 Labs: Laboratory Results - last 24 hr 02/24/25 07:35: WBC 7.8, RBC 3.77 L, Hgb 12.6 L, Hct 35.1 L, MCV 93.1, MCH 33.4 H, MCHC 35.9, RDW Std Deviation 49.7 H, RDW Coeff of Rosalee 14.9 H, Plt Count 111 L, MPV 9.5, Immature Gran % (Auto) 0.400, Neut % (Auto) 84.7 H, Lymph % (Auto) 4.5 L, [place] % (Auto) 9.9, Eos % (Auto) 0.1, Baso % (Auto) 0.4, Absolute Neuts (auto) 6.6, Absolute Lymphs (auto) 0.35 L, Nucleated RBC % 0, Sodium 138, Potassium 3.3, Chloride 98, Carbon Dioxide 27.3, Anion Gap 12, BUN 17, Creatinine 1.39 H, Estim Creat Clear Calc 39.01 L, Est GFR (MDRD) Non-Af 58 L, BUN/Creatinine Ratio 12.2, Glucose 112 H, Calcium 9.8, Total Bilirubin 0.72, AST35, ALT 16, Alkaline Phosphatase 128, Total Protein 7.1, Albumin 3.8, Globulin 3.3, Albumin/Globulin Ratio 1.1, Lipase 109 H Imaging Radiology Impression Abdomen CT 02/24/25 07:20 IMPRESSION: 1. Multiple distended small bowel loops with differential air-fluid levels measuring up to 3.7 cm, concerning for small bowel obstruction with possible transition in the right lower abdominal quadrant. 2. Bladder wall thickening which may be due to the decompressed state of the bladder or due to cystitis. 3. Small esophageal hiatal hernia. 4. Inguinal hernias, bilaterally. Reading Location[facility] Assessment & Plan Assessment/Plan (1) SBO (small bowel obstruction): (2) Malignant neoplasm of rectum: PLAN: Plan This 59-year-old gentleman is being admitted for small bowel obstruction. Patient has history of rectal cancer status post APR. He had chemotherapy and radiation 4 months ago and then last chemo about 10 days ago. 1. Small bowel obstruction with history of colorectal cancer status post APR and colostomy: Patient is being admitted MedSur floor. IV fluid Ringer lactateat 100 mL/h. NG suction at low intermittent wall suction. Monitor bowel emptying. Surgery Dr. Bains's been consulted. CT abdomen images shows multiple distended small bowel loops with largest measuring 3.7 cm. 2. CA rectum: He follows Dr. Ho. Had C8 FOLFOX on 02/14/2025. Prior to that he finished chemotherapy on 08/13/2024 and radiation on 08/17/2024. 3. Bilateral hydronephrosis status post bilateral nephrostomy in September 2024 in [facility]: Urine in bilateral nephrostomy bag is dark-colored. IV fluid hydration. CT scan does not show hydronephrosis 4. History of DVT in the past: Unclear about it location but patient said it was in right thigh. Unclear about the reason why did not complete full course of anticoagulation but he said he had Lovenox and aspirin during [facility]. 5. Irregular rhythm: Twelve-lead EKG shows sinus rhythm with PAC, LAD at 85 bpm.Denies history of A-fib. 6. DVT prophylaxis, high risk: Lovenox 40 mg subcu daily Living will/advanced directive/end of life care: Patient does not have living will or advanced directive but in the process of making living well. After discussion of benefits/risks procedures involved with full code, DNR CC arrest and DNR CC, the patient and his opted for full code Patient does want artificial life support including intubation, tube feed, ventilator and/chest compression, central venous catheter, vasopressor and DC shock if needed Total time spent in [id number] encounter in discussion of advanced directive 17 minutes. Laboratory Results 02/24/25 07:35: WBC 7.8, RBC 3.77 L, Hgb 12.6 L, Hct 35.1 L, MCV 93.1, MCH 33.4 H, MCHC 35.9, RDW Std Deviation 49.7 H, RDW Coeff of Rosalee 14.9 H, Plt Count 111 L, MPV 9.5, Immature Gran % (Auto) 0.400, Neut % (Auto) 84.7 H, Lymph % (Auto) 4.5 L, Rawlins % (Auto) 9.9, Eos % (Auto) 0.1, Baso % (Auto) 0.4, Absolute Neuts (auto) 6.6, Absolute Lymphs (auto) 0.35 L, Nucleated RBC % 0, Sodium 138, Potassium 3.3, Chloride 98, Carbon Dioxide 27.3, Anion Gap 12, BUN 17, Creatinine 1.39 H, Estim Creat Clear Calc 39.01 L, Est GFR (MDRD) Non-Af 58 L, BUN/Creatinine Ratio 12.2, Glucose 112 H, Calcium 9.8, Total Bilirubin 0.72, AST 35, ALT 16, Alkaline Phosphatase 128, Total Protein 7.1, Albumin 3.8, Globulin 3.3, Albumin/Globulin Ratio 1.1, Lipase 109 H Clinical Impression(s) from Imaging Studies Abdomen CT 02/24/25 07:20 IMPRESSION: 1. Multiple distended small bowel loops with differential air-fluid levels measuring up to 3.7 cm, concerning for small bowel obstruction with possible transition in the right lower abdominal quadrant. 2. Bladder wall thickening which may be due to the decompressed state of the bladder or due to cystitis. 3. Small esophageal hiatal hernia. 4. Inguinal hernias, bilaterally. Reading Location: [facility] X-Ray 02/24/25 11:25 IMPRESSION: Tip of the nasogastric tube in the fundus of the stomach. Bilateral nephrostomy catheters. Bowel-gas pattern suggest adynamic/reflex ileus. Reading Location: [facility] Charges/Coding Visit Charges Inpatient E&M: 76038 Init Hosp L3 Procedures Hospitalists Procedures: 94283 Advncd Care Plan 30 Min 02/24/25 1527 <Electronically signed by Handy Royal MD> Cosigner Signature (if applicable): CC: Dr. Handy Royal MD; No Primary Care Physician~ Signed [facility] Work Phone: [phone]) 432-714405-08-2025 Discharge summary Author Gwyn Esquivel [facility] Note Date/Time February 24, 2025 2:30pm [facility] Medical Records Department [address] [place] [address] Emergency Department Summary 02/24/25 MR#: [id number] Acct: [id number] Name: ANDREW POSADA Rep #:[id number] : 1965 59 From: Gwyn Turner PCP: Care Physician,No Primary Status :ADM IN Location: [place] [address] HPI History of Present Illness Chief Complaint: General Illness Informant: patient and spouse/S.O. Narrative Narrative: Presents generalized illness over the last 5 days. States unable to eat. Reports yesterday was able to eat some soup at noon by supper came back up. Nausea. Colostomy March of last year performed in [place]. He had a colonoscopy finding a mass 2 weeks prior. They went to [place] due to knowing somebody with similar issues with treatment there. However does follow oncology here with , finished chemo treatment 2 weeks ago 4-month regimen. No fevers or chills. Reports something similar this past September and ended up with an NG tube transfer to [facility]. He ended up with bilateral nephrostomy tubes. He states both are draining. No fever or chills. Denies any significant distention of the abdomen. He states however has not emptied the colostomy in 2 days. There is minimal flatus. Inguinal hernia repairs in the past. [facility] similar [facility]: [facility] Medical History Hypokalemia UTI (urinary tract infection) CINV (chemotherapy-induced nausea and vomiting) Cloudy urine Bradycardia Prerenal azotemia Constipation Hypoalbuminemia Wears glasses Cancer DVT (deep venous thrombosis) Syncope Non-smoker Cataract (lens) fragments in eye following cataract surgery, bilateral Mandeep blood in stool Chronic diarrhea of unknown origin Change in bowel habit Colon cancer Home Medications ?Medication ?Instructions ?Recorded ?Last Taken ?Type sennosides 8.6 mg capsule (senna) 8.6 mg PO QHS PRN co nstipation 09/24/24 10/10/24 History ondansetron 8 mg disintegrating 8 mg PO Q8H PRN nausea and 11/22/24 Unknown Rx tablet vomiting #30 tabs Allergy/AdvReac Type Severity Reaction Status Date / Time No Known Allergies Allergy Verified 02/14/25 09:48 Family History Son Cancer Surgical History H/O hernia repair S/P colonoscopy H/O colectomy History of creation of ostomy Social History household members: spouse Smoking Status: Never smoker alcohol intake: never substance use type: does not use ROS ROS ED Constitutional Constitutional ED: Denies chills, fever(s) or sweats ENT ENT ED: Denies sore throat Cardiovascular Cardiovascular: Denies chest pain, leg edema, palpitations or racing heartbeat Respiratory/Chest Respiratory/Chest: Denies cough, dyspnea or dyspnea on exertion Gastrointestinal Gastrointestinal: Reports nausea and vomiting; Denies abdominal pain or diarrhea Genitourinary Genitourinary ED: Denies dysuria, hematuria or urinary frequency Musculoskeletal Musculoskeletal: Denies back pain, extremity pain or neck pain Integumentary Denies rash or wounds Neurologic Neurologic: Denies headache(s), paresthesias or weakness EXAM Physical Exam Const Vital Signs: 02/24/25 06:52 02/24/25 06:56 02/24/25 07:42 Temperature 98.4 F 98.4 F Temperature Source Oral Oral Pulse Rate 79 68 Respiratory Rate 16 16 Respiratory Effort Normal Non-Labored Respiratory Pattern Normal Blood Pressure 172/112 H 172/113 H Blood Pressure Mean 132 132 Pulse Ox 97 98 Oxygen Delivery Method Room Air Room Air 02/24/25 07:56 02/24/25 08:00 02/24/25 09:00 Temperature 98.6 F 98.6 F 98.3 F Temperature Source Oral Oral Oral Pulse Rate 81 81 91 Respiratory Rate 15 16 17 Respiratory Effort Respiratory Pattern Blood Pressure 168/112 H 158/100 H 168/108 H Blood Pressure Mean 130 119 128 Pulse Ox 98 98 98 Oxygen Delivery Method Room Air Room Air Room Air 02/24/25 10:00 02/24/25 11:09 Temperature 98.3 F 98.3 F Temperature Source Oral Pulse Rate 84 84 Respiratory Rate 18 18 Respiratory Effort Respiratory Pattern Blood Pressure 166/112 H 166/112 H Blood Pressure Mean 130 130 Pulse Ox 98 98 Oxygen Delivery Method Room Air Positive well nourished and well developed General Appearance ED: well developed and NAD HEENT Reports moist mucous membranes normocephalic and atraumatic Eyes General Eye ED: Yes normal appearance of both eyes Neck full ROM Chest Wall Chest: Negative for tenderness Resp normal respiratory effort and normal air movement Effort and Inspection: symmetric chest movement; Negative for respiratory distress Cardio regular rate, regular rhythm and no murmurs Peripheral Pulses: pulses 2+ throughout GI non-tender GI Narrative: Hypoactive bowel sounds no skin distention. Palpation: Negative for guarding or rebound tenderness present Narrative: Bilateral nephrostomy tubes with urine drainage in both bags. Extremity normal to inspection General Extremety ED: Negative for edema or tenderness General Extremity: Negative for edema Neuro oriented x3 and no sensory deficits noted Sensorium / Orientation: awake and alert Skin no rashes or lesions noted and no wounds MDM MDM MDM Narrative Medical decision making narrative: Interventions / MDM: Differential diagnosis: Small bowel obstruction, history of colon cancer with ostomy, history of nephrostomy tubes Diagnosis considered but do not suspect: N/A My EKG interpretation: N/A Imaging independently reviewed and interpreted by myself: CT abdomen pelvis withp.o. contrast: Small bowel obstruction transition in the right lower quadrant. 1 view KUB: NG tube in the stomach. External documents reviewed: Clinisync: Visit in September at [facility]. Nephrostomy tubes were placed. NG tube for obstruction. Antibiotics for his abdominal abscesses. Test considered but not ordered:N/A ED course: Patient's history concerning for small bowel obstruction. No ostomy output in 2 days. His nephrostomy tubes are both draining yellow urine. Will check abdominal labs, Zofran ordered. Declines any pain medicines. CT abdomen pelvis with p.o. contrast will be ordered for evaluation. 1040: Labs white count 7.8 creatinine 1.39. Sodium 138 potassium [address].3. Lipase 109. CT scan results concerning for small bowel obstruction transition in the right lower quadrant per radiology. Order for NG tube. Fluids continued. 1055: I spoke with Dr. Chandler, this patient's history findings obstruction. Patient has bilateral nephrostomy tubes have they are not obstructed or working. He will assist with management here. With his cancer history requesting discussion with hospitalist service for admission. 1130: I spoke with hospitalist Dr. Royal agrees to admit under service and surgery to follow. Re-evaluation: stable Disposition discussed with patient/family/significant other: Patient and spouse Case discussed with consulting clinician: General Surgery, hospitalist This note was generated with [employer] dictation software. It may contain incorrectwords, spelling, and punctuation that were not noted in checking the note beforesigning. Lab Data Attestation: I reviewed the patient's lab results. Labs: Laboratory Results - last 24 hr 02/24/25 07:35 WBC 7.8 RBC 3.77 L Hgb 12.6 L Hct 35.1 L MCV 93.1 MCH 33.4 H MCHC 35.9 RDW Std Deviation 49.7 H RDW Coeff of Rosalee 14.9 H Plt Count 111 L MPV 9.5 Immature Gran % (Auto) 0.400 Neut % (Auto) 84.7 H Lymph % (Auto) 4.5 L Rawlins % (Auto) 9.9 Eos % (Auto) 0.1 Baso % (Auto) 0.4 Absolute Neuts (auto) 6.6 Absolute Lymphs (auto) 0.35 L Nucleated RBC % 0 Sodium 138 Potassium 3.3 Chloride 98 Carbon Dioxide 27.3 Anion Gap 12 BUN 17 Creatinine 1.39 H Estim Creat Clear Calc 39.01 L Est GFR (MDRD) Non-Af 58 L BUN/Creatinine Ratio 12.2 Glucose 112 H Calcium 9.8 Phosphorus 2.7 Magnesium 2.1 Total Bilirubin 0.72 AST 35 ALT 16 Alkaline Phosphatase 128 Total Protein 7.1 Albumin 3.8 Globulin 3.3 Albumin/Globulin Ratio 1.1 Lipase 109 H Radiography Diagnostic Testing: Clinical Impression(s) from Imaging Studies Abdomen CT 02/24/25 07:20 IMPRESSION: 1. Multiple distended small bowel loops with differential air-fluid levels measuring up to 3.7 cm, concerning for small bowel obstruction with possible transition in the right lower abdominal quadrant. 2. Bladder wall thickening which may be due to the decompressed state of the bladder or due to cystitis. 3. Small esophageal hiatal hernia. 4. Inguinal hernias, bilaterally. Reading Location[facility] 02/24/25 11:25 IMPRESSION: Tip of the nasogastric tube in the fundus of the stomach. Bilateral nephrostomy catheters. Bowel-gas pattern suggest adynamic/reflex ileus. Reading Location: [facility] Discharge Plan Dx/Rx/DC Orders Clinical Impression: SBO (small bowel obstruction), Malignant neoplasm of rectum, Vomiting, Nephrostomy present Disposition Disposition: [facility] Discharge Date/Time: 02/24/25 12:02 What to do if you have Problems For any increased pain, shortness of breath, bleeding, nausea or vomiting, chestpain, or any unexpected problems, contact your Primary Care Provider. Call [facility] ([phone]) or report to the closest Emergency Room. Call 911 if necessary. 02/24/25 1430 <Electronically signed by Gwyn Turner> Cosigner Signature (if applicable): CC: Dr. Guy Ho MD; No Primary Care Physician ~ Signed [facility] Work Phone: [phone]) 648-749305-08-2025 Consult note [facility] Medical Records Department [address] [place] [address] Consultation - Surgical 02/24/25 1601 MR#: [id number] Acct: [id number] Name: ANDREW POSADA Rep #:[id number] : 1965 59 From: Kunal Chandler MD PCP: Care Physician,No Primary Status :ADM IN Location: [facility] [id number] Assessment & Plan Assessment/Plan (1) SBO (small bowel obstruction): PLAN: Plan The patient is a 59-year-old male with a history of colon cancer treated surgically about a year ago and has just completed chemotherapy. He presents with a small bowel obstruction. He had a previousbowel obstruction and Osei which resolved spontaneously without the need for surgery. He has beenadmitted to the medicine service and a surgical consult was placed. I am recommending continued n.p.o. and NG tube decompression. Also recommend IV fluid hydration. Ideally I would like to obtain a small bowel follow-through however he is still having some nausea and vomiting this afternoon. I am recommending that we decompressed him overnight and likely plan for small bowel follow-through in a.m . The patient and his are understanding of this plan and are in agreement. We will continue tofollow along and advise accordingly. HPI Consult Data Date of Consult: 02/24/25 HPI Narrative Reason for Consultation: Small bowel obstruction HPI Narrative: ANDREW POSADA, is a 59 M who presents to the emergency department here at [facility] with complaints of nausea, vomiting and abdominal pain over thelast 4 to 5 days. Patient has a history of a colon resection with colostomy last year. This was performed in [place] for malignancy. He is currently being seen by oncology here at [facility]. He just recently completed a 4- monthregimen of chemotherapy. Patient states that he has been unable to eat over thelast several days due to nausea and vomiting. He presented to the emergency department today with these complaints. He was seen evaluated by the ER staff. He underwent CT scan that showed small bowel obstruction. Patient had a previous small bowel obstruction treated back in September at [facility]. This resolvedspontaneously without need for surgery. He also had bilateral nephrostomy tubesplaced at that time as well. He does admit to some recent constipation issues however over the last 2 days he has not had any significant ostomy output although he does admit to a small amount of liquid stool this afternoon since being admitted. Nasogastric tube was placed in the emergency room. This appears to have removed about 400 cc thus far.He does state that he is still feeling somewhat nauseated and had a small emesis since arriving on the floor. Surgical consult was obtained for recommendations and treatment for the small bowel obstruction . [facility] Medical History Hypokalemia UTI (urinary tract infection) CINV (chemotherapy-induced nausea and vomiting) Cloudy urine Bradycardia Prerenal azotemia Constipation Hypoalbuminemia Wears glasses Cancer DVT (deep venous thrombosis) Syncope Non-smoker Cataract (lens) fragments in eye following cataract surgery, bilateral Mandeep blood in stool Chronic diarrhea of unknown origin Change in bowel habit Colon cancer Home Medications ?Medication ?Instructions ?Recorded ?Last Taken ?Type sennosides 8.6 mg capsule (senna) 8.6 mg PO QHS PRN co nstipation 09/24/24 10/10/24 History ondansetron 8 mg disintegrating 8 mg PO Q8H PRN nausea and 11/22/24 Unknown Rx tablet vomiting #30 tabs Allergy/AdvReac Type Severity Reaction Status Date / Time No Known Allergies Allergy Verified 02/14/25 09:48 Family History Son Cancer Surgical History H/O hernia repair S/P colonoscopy H/O colectomy History of creation of ostomy Social History household members: spouse Smoking Status: Never smoker alcohol intake: never substance use type: does not use Physical Exam Narrative He is alert and oriented x 3. He is in no acute distress. Head is normocephalic and atraumatic. NG tube in place. Pupils are equal round and reactive to light. Abdomen is soft and slightly distended. Very minimal tenderness with palpation. There is a small amount of liquid stool within the ostomy bag. No significant flatus Lab / Micro Data 02/24/25 07:35 02/24/25 07:35 Labs: Laboratory Results - last 24 hr 02/24/25 07:35: WBC 7.8, RBC 3.77 L, Hgb 12.6 L, Hct 35.1 L, MCV 93.1, MCH 33.4 H, MCHC 35.9, RDW Std Deviation 49.7 H, RDW Coeff of Rosalee 14.9 H, Plt Count 111 L, MPV 9.5, Immature Gran % (Auto) 0.400, Neut % (Auto) 84.7 H, Lymph % (Auto) 4.5 L, Rawlins % (Auto) 9.9, Eos % (Auto) 0.1, Baso % (Auto) 0.4, Absolute Neuts (auto) 6.6, Absolute Lymphs (auto) 0.35 L, Nucleated RBC % 0, Sodium 138, Potassium3.3, Chloride 98, Carbon Dioxide 27.3, Anion Gap 12, BUN 17, Creatinine 1.39 H, Estim Creat Clear Calc 39.01 L, Est GFR (MDRD) Non-Af 58 L, BUN/Creatinine Ratio 12.2, Glucose 112 H, Calcium 9.8, Phosphorus 2.7, Magnesium2.1, Total Bilirubin 0.72, AST 35, ALT 16, Alkaline Phosphatase 128, Total Protein 7.1, Albumin 3.8, Globulin 3.3, Albumin/Globulin Ratio 1.1, Lipase 109 H Imaging Radiology Impression Abdomen CT 02/24/25 07:20 IMPRESSION: 1. Multiple distended small bowel loops with differential air-fluid levels measuring up to 3.7 cm, concerning for small bowel obstruction with possible transition in the right lower abdominal quadrant. 2. Bladder wall thickening which may be due to the decompressed state of the bladder or due to cystitis. 3. Small esophageal hiatal hernia. 4. Inguinal hernias, bilaterally. Reading Location: [facility] X-Ray 02/24/25 11:25 IMPRESSION: Tip of the nasogastric tube in the fundus of the stomach. Bilateral nephrostomy catheters. Bowel-gas pattern suggest adynamic/reflex ileus. Reading Location: [facility] Charges/Coding Visit Charges Inpatient E&M: 37813 Init Hosp L3 02/24/25 1607 Cosigner Signature (if applicable): CC: No Primary Care Physician~ Signed [facility]05-08-2025 History and physical note [facility] Medical Records Department [address] [place] [address] H&P Exam - Hospitalist 02/24/25 1129 MR#: [id number] Acct: [id number] Name: ANDREW POSADA Rep #:[id number] : 1965 59 From: Handy Harris PCP: Care Physician,No Primary Status :ADM IN Location: [facility] [id number] HPI - General General Date of Admission: 02/24/25 Date of Service: 02/24/25 Chief Complaint: Last BM Friday night. Not passing flatus at home. HPI Narrative ANDREW POSADA, is a 59 M Was admitted with not moving his bowel, nausea vomitingsince Friday night. His last bowel movement on Friday was well-formed with noblood. He had APR with colostomy in [place] in March 2024. Prior to that he had chemotherapy about 10 days to 2 weeks ago, second chemotherapyregimen after 4 months. Denies fever or chills. In September 2024 he had bilateral nephrostomy in [facility], [facility]. In ED, patient had CT abdomen which showed multiple distended small bowel loops with air-fluid levels measuring up to 3.7 cm concerning for small bowel obstruction and possible transition in RLQ. [facility] Medical History Hypokalemia UTI (urinary tract infection) CINV (chemotherapy-induced nausea and vomiting) Cloudy urine Bradycardia Prerenal azotemia Constipation Hypoalbuminemia Wears glasses Cancer DVT (deep venous thrombosis) Syncope Non-smoker Cataract (lens) fragments in eye following cataract surgery, bilateral Mandeep blood in stool Chronic diarrhea of unknown origin Change in bowel habit Colon cancer Home Medications ?Medication ?Instructions ?Recorded ?Last Taken ?Type sennosides 8.6 mg capsule (senna) 8.6 mg PO QHS PRN co nstipation 09/24/24 10/10/24 History ondansetron 8 mg disintegrating 8 mg PO Q8H PRN nausea and 11/22/24 Unknown Rx tablet vomiting #30 tabs Allergy/AdvReac Type Severity Reaction Status Date / Time No Known Allergies Allergy Verified 02/14/25 09:48 Family History Son Cancer Surgical History H/O hernia repair S/P colonoscopy H/O colectomy History of creation of ostomy Social History household members: spouse Smoking Status: Never smoker alcohol intake: never substance use type: does not use ROS ROS Narrative Constitutional: Reports fatigue and weakness. No fever. HEENT: Reports systems reviewed and no addt'l complaints, except as documented Respiratory/Chest: No acute shortness of breath or respiratory distress or wheezing. CVS: No chest pain or shortness of breath. Denies history of A-fib Gastrointestinal: Denies coffee ground emesis, hematemesis or vomiting Genitourinary: Denies burning urination or new urinary tract symptoms Musculoskeletal: Denies acute joint pain or limited range of motion. No acute injury Neurologic: Denies seizure-like symptoms. skin: No ulcer. No rash Endocrinology: Reports systems reviewed and no addt'l complaints, except as documented Hematologic/Lymphatic: Reports systems reviewed and no addt'l complaints, exceptas documented Rest 14 ROS are negative except as mentioned in HPI Vital Signs Vital Signs Vital Signs: 02/24/25 06:52 02/24/25 06:56 02/24/25 07:42 Temperature 98.4 F 98.4 F Temperature Source Oral Oral Pulse Rate 79 68 Respiratory Rate 16 16 Respiratory Effort Normal Non-Labored Respiratory Pattern Normal Blood Pressure 172/112 H 172/113 H Blood Pressure Mean 132 132 Pulse Ox 97 98 Oxygen Delivery Method Room Air Room Air 02/24/25 07:56 02/24/25 08:00 02/24/25 09:00 Temperature 98.6 F 98.6 F 98.3 F Temperature Source Oral Oral Oral Pulse Rate 81 81 91 Respiratory Rate 15 16 17 Respiratory Effort Respiratory Pattern Blood Pressure 168/112 H 158/100 H 168/108 H Blood Pressure Mean 130 119 128 Pulse Ox 98 98 98 Oxygen Delivery Method Room Air Room Air Room Air 02/24/25 10:00 02/24/25 11:09 Temperature 98.3 F 98.3 F Temperature Source Oral Pulse Rate 84 84 Respiratory Rate 18 18 Respiratory Effort Respiratory Pattern Blood Pressure 166/112 H 166/112 H Blood Pressure Mean 130 130 Pulse Ox 98 98 Oxygen Delivery Method Room Air Weight Weight: 106 lb 4.205 oz Body Mass Index (BMI) 16.1 Physical Exam Narrative General: Alert, Oriented x3, Cooperative HEENT: Atraumatic, PERRLA, EOMI, Normocephalic. Oral: Oral mucosa dry no Gingival or Mucosal Lesions/ Ulcerations Neck: Supple, No JVD, Negative Carotid Bruits Chest wall/Lungs: Air entry diminished in bilateral lung bases. No crepitation/rhonchi Cardiovascular: Irregular rhythm normal S1,S2, systolic murmur Abdomen: Bowel Sounds hyper, soft, Non Tender, colostomy. Not very distended : Bilateral nephrostomy tube, dark urine. No renal angle tenderness. No suprapubic tenderness. Extremities: No edema, Capillary Refill Less than 3 Seconds Skin: No rashes, No breakdown Musculoskeletal: No Tenderness to Palpation of Joints or Extremities Neurological: Cranial nerves II-XII grossly intact, DTR 2+/4. No acute focal neurological deficit. Psych/Mental Status: Normal Affect, Appropriate. Results Lab / Micro Data 02/24/25 07:35 02/24/25 07:35 Labs: Laboratory Results - last 24 hr 02/24/25 07:35: WBC 7.8, RBC 3.77 L, Hgb 12.6 L, Hct 35.1 L, MCV 93.1, MCH 33.4 H, MCHC 35.9, RDW Std Deviation 49.7 H, RDW Coeff of Rosalee 14.9 H, Plt Count 111 L, MPV 9.5, Immature Gran % (Auto) 0.400, Neut % (Auto) 84.7 H, Lymph % (Auto) 4.5 L, Rawlins % (Auto) 9.9, Eos % (Auto) 0.1, Baso % (Auto) 0.4, Absolute Neuts (auto) 6.6, Absolute Lymphs (auto) 0.35 L, Nucleated RBC % 0, Sodium 138, Potassium3.3, Chloride 98, Carbon Dioxide 27.3, Anion Gap 12, BUN 17, Creatinine 1.39 H, Estim Creat Clear Calc 39.01 L, Est GFR (MDRD) Non-Af 58 L, BUN/Creatinine Ratio 12.2, Glucose 112 H, Calcium 9.8, Total Bilirubin 0.72, AST35, ALT 16, Alkaline Phosphatase 128, Total Protein 7.1, Albumin 3.8, Globulin 3.3, Albumin/Globulin Ratio 1.1, Lipase 109 H Imaging Radiology Impression Abdomen CT 02/24/25 07:20 IMPRESSION: 1. Multiple distended small bowel loops with differential air-fluid levels measuring up to 3.7 cm, concerning for small bowel obstruction with possible transition in the right lower abdominal quadrant. 2. Bladder wall thickening which may be due to the decompressed state of the bladder or due to cystitis. 3. Small esophageal hiatal hernia. 4. Inguinal hernias, bilaterally. Reading [facility] Assessment & Plan Assessment/Plan (1) SBO (small bowel obstruction): (2) Malignant neoplasm of rectum: PLAN: Plan This 59-year-old gentleman is being admitted for small bowel obstruction. Patient has history of rectal cancer status post APR. He had chemotherapy and radiation 4 months ago and then last chemo about 10 days ago. 1. Small bowel obstruction with history of colorectal cancer status post APR and colostomy: Patientis being admitted Medr floor. IV fluid Ringer lactateat 100 mL/h. NG suction at low intermittentwall suction. Monitor bowel emptying. Surgery Dr. Bains's been consulted. CT abdomen images shows multiple distended small bowel loops with largest measuring 3.7 cm. 2. CA rectum: He follows Dr. Ho. Had C8 FOLFOX on 02/14/2025. Prior to that he finished chemotherapy on 08/13/2024 and radiation on 08/17/2024. 3. Bilateral hydronephrosis status post bilateral nephrostomy in September 2024 in [facility]: Urine in bilateral nephrostomy bag is dark-colored. IV fluid hydration. CT scan does not show hydronephrosis 4. History of DVT in the past: Unclear about it location but patient said it was in right thigh. Unclear about the reason why did not complete full course of anticoagulation but he said he had Lovenox and aspirin during hospitalizationin [facility]. 5. Irregular rhythm: Twelve-lead EKG shows sinus rhythm with PAC, LAD at 85 bpm.Denies history of A-fib. 6. DVT prophylaxis, high risk: Lovenox 40 mg subcu daily Living will/advanced directive/end of life care: Patient does not have living will or advanced directive but in the process of making living well. After discussion of benefits/risks procedures involved with full code, DNR CC arrest and DNR CC, the patient and his opted for full code Patient does want artificial life support including intubation, tube feed, ventilator and/chest compression, central venous catheter, vasopressor and DC shock if needed Total time spent in [id number] encounter in discussion of advanced directive 17 minutes. Laboratory Results 02/24/25 07:35: WBC 7.8, RBC 3.77 L, Hgb 12.6 L, Hct 35.1 L, MCV 93.1, MCH 33.4 H, MCHC 35.9, RDW Std Deviation 49.7 H, RDW Coeff of Rosalee 14.9 H, Plt Count 111 L, MPV 9.5, Immature Gran % (Auto) 0.400, Neut % (Auto) 84.7 H, Lymph % (Auto) 4.5 L, Rawlins % (Auto) 9.9, Eos % (Auto) 0.1, Baso % (Auto) 0.4, Absolute Neuts (auto) 6.6, Absolute Lymphs (auto) 0.35 L, Nucleated RBC % 0, Sodium 138, Potassium 3.3, Chloride 98, Carbon Dioxide 27.3, Anion Gap 12, BUN 17, Creatinine 1.39 H, Estim Creat Clear Calc 39.01 L, Est GFR (MDRD) Non-Af 58 L, BUN/Creatinine Ratio 12.2, Glucose 112 H, Calcium 9.8, Total Bilirubin 0.72, AST 35, ALT 16, Alkaline Phosphatase 128, Total Protein 7.1,Albumin 3.8, Globulin 3.3, Albumin/Globulin Ratio 1.1, Lipase 109 H Clinical Impression(s) from Imaging Studies Abdomen CT 02/24/25 07:20 IMPRESSION: 1. Multiple distended small bowel loops with differential air-fluid levels measuring up to 3.7 cm, concerning for small bowel obstruction with possible transition in the right lower abdominal quadrant. 2. Bladder wall thickening which may be due to the decompressed state of the bladder or due to cystitis. 3. Small esophageal hiatal hernia. 4. Inguinal hernias, bilaterally. Reading [facility] X-Ray 02/24/25 11:25 IMPRESSION: Tip of the nasogastric tube in the fundus of the stomach. Bilateral nephrostomy catheters. Bowel-gas pattern suggest adynamic/reflex ileus. Reading Location: [facility] Charges/Coding Visit Charges Inpatient E&M: 15654 Init Hosp L3 Procedures Hospitalists Procedures: 74324 Advncd Care Plan 30 Min 02/24/25 1527 Cosigner Signature (if applicable): CC: Dr. Handy Royal MD; No Primary Care Physician~ Signed [facility]05-08-2025 Discharge summary [facility] Medical Records Department [address] [place] [address] Emergency Department Summary 02/24/25 MR#: [id number] Acct: [id number] Name: ANDREW POSADA Rep #:[id number] : 1965 59 From: Gwyn Turner PCP: Care Physician,No Primary Status :ADM IN [facility] History of Present Illness Chief Complaint: General Illness Informant: patient and spouse/S.O. Narrative Narrative: Presents generalized illness over the last 5 days. States unable to eat. Reports yesterday was ableto eat some soup at noon by supper came back up. Nausea. Colostomy March of last year performed in [place]. He had a colonoscopy finding a mass 2 weeks prior. They went to [place] due to knowing somebody with similar issues with treatment there. However does follow oncology here with , finishedchemo treatment 2 weeks ago 4-month regimen. No fevers or chills. Reports something similar this past September and ended up with an NG tube transfer to [facility]. He ended up with bilateral nephrostomy tubes. He states both are draining. No fever or chills. Denies any significant distention of the abdomen. He states however has not emptied the colostomy in 2 days. There is minimal flatus. Inguinal hernia repairs in the past. Prior similar symptoms: Yes PFSH PFSH Medical History Hypokalemia UTI (urinary tract infection) CINV (chemotherapy-induced nausea and vomiting) Cloudy urine Bradycardia Prerenal azotemia Constipation Hypoalbuminemia Wears glasses Cancer DVT (deep venous thrombosis) Syncope Non-smoker Cataract (lens) fragments in eye following cataract surgery, bilateral Mandeep blood in stool Chronic diarrhea of unknown origin Change in bowel habit Colon cancer Home Medications ?Medication ?Instructions ?Recorded ?Last Taken ?Type sennosides 8.6 mg capsule (senna) 8.6 mg PO QHS PRN co nstipation 09/24/24 10/10/24 History ondansetron 8 mg disintegrating 8 mg PO Q8H PRN nausea and 11/22/24 Unknown Rx tablet vomiting #30 tabs Allergy/AdvReac Type Severity Reaction Status Date / Time No Known Allergies Allergy Verified 02/14/25 09:48 Family History Son Cancer Surgical History H/O hernia repair S/P colonoscopy H/O colectomy History of creation of ostomy Social History household members: spouse Smoking Status: Never smoker alcohol intake: never substance use type: does not use ROS ROS ED Constitutional Constitutional ED: Denies chills, fever(s) or sweats ENT ENT ED: Denies sore throat Cardiovascular Cardiovascular: Denies chest pain, leg edema, palpitations or racing heartbeat Respiratory/Chest Respiratory/Chest: Denies cough, dyspnea or dyspnea on exertion Gastrointestinal Gastrointestinal: Reports nausea and vomiting; Denies abdominal pain or diarrhea Genitourinary Genitourinary ED: Denies dysuria, hematuria or urinary frequency Musculoskeletal Musculoskeletal: Denies back pain, extremity pain or neck pain Integumentary Denies rash or wounds Neurologic Neurologic: Denies headache(s), paresthesias or weakness EXAM Physical Exam Const Vital Signs: 02/24/25 06:52 02/24/25 06:56 02/24/25 07:42 Temperature 98.4 F 98.4 F Temperature Source Oral Oral Pulse Rate 79 68 Respiratory Rate 16 16 Respiratory Effort Normal Non-Labored Respiratory Pattern Normal Blood Pressure 172/112 H 172/113 H Blood Pressure Mean 132 132 Pulse Ox 97 98 Oxygen Delivery Method Room Air Room Air 02/24/25 07:56 02/24/25 08:00 02/24/25 09:00 Temperature 98.6 F 98.6 F 98.3 F Temperature Source Oral Oral Oral Pulse Rate 81 81 91 Respiratory Rate 15 16 17 Respiratory Effort Respiratory Pattern Blood Pressure 168/112 H 158/100 H 168/108 H Blood Pressure Mean 130 119 128 Pulse Ox 98 98 98 Oxygen Delivery Method Room Air Room Air Room Air 02/24/25 10:00 02/24/25 11:09 Temperature 98.3 F 98.3 F Temperature Source Oral Pulse Rate 84 84 Respiratory Rate 18 18 Respiratory Effort Respiratory Pattern Blood Pressure 166/112 H 166/112 H Blood Pressure Mean 130 130 Pulse Ox 98 98 Oxygen Delivery Method Room Air Positive well nourished and well developed General Appearance ED: well developed and NAD HEENT Reports moist mucous membranes normocephalic and atraumatic Eyes General Eye ED: Yes normal appearance of both eyes Neck full ROM Chest Wall Chest: Negative for tenderness Resp normal respiratory effort and normal air movement Effort and Inspection: symmetric chest movement; Negative for respiratory distress Cardio regular rate, regular rhythm and no murmurs Peripheral Pulses: pulses 2+ throughout GI non-tender GI Narrative: Hypoactive bowel sounds no skin distention. Palpation: Negative for guarding or rebound tenderness present Narrative: Bilateral nephrostomy tubes with urine drainage in both bags. Extremity normal to inspection General Extremety ED: Negative for edema or tenderness General Extremity: Negative for edema Neuro oriented x3 and no sensory deficits noted Sensorium / Orientation: awake and alert Skin no rashes or lesions noted and no wounds MDM MDM MDM Narrative Medical decision making narrative: Interventions / MDM: Differential diagnosis: Small bowel obstruction, history of colon cancer with ostomy, history of nephrostomy tubes Diagnosis considered but do not suspect: N/A My EKG interpretation: N/A Imaging independently reviewed and interpreted by myself: CT abdomen pelvis withp.o. contrast: Small bowel obstruction transition in the right lower quadrant. 1 view KUB: NG tube in the stomach. External documents reviewed: Clinisync: Visit in September at [facility]. Nephrostomy tubes were placed. NG tube for obstruction. Antibiotics for his abdominal abscesses. Test considered but not ordered:N/A ED course: Patient's history concerning for small bowel obstruction. No ostomy output in 2 days. His nephrostomy tubes are both draining yellow urine. Will check abdominal labs, Zofran ordered. Declines any pain medicines. CT abdomen pelvis with p.o. contrast will be ordered for evaluation. 1040: Labs white count 7.8 creatinine 1.39. Sodium 138 potassium 3.3. Lipase 109. CT scan results concerning for small bowel obstruction transition in the right lower quadrant per radiology. Order for NG tube. Fluids continued. 1055: I spoke with Dr. Chandler, this patient's history findings obstruction. Patient has bilateral nephrostomy tubes have they are not obstructed or working. He will assist with management here. With his cancer history requesting discussion with hospitalist service for admission. 1130: I spoke with hospitalist Dr. Royal agrees to admit under service and surgery to follow. Re-evaluation: stable Disposition discussed with patient/family/significant other: Patient and spouse Case discussed with consulting clinician: General Surgery, hospitalist This note was generated with LaFourchetteation software. It may contain incorrectwords, spelling, and punctuation that were not noted in checking the note beforesigning. Lab Data Attestation: I reviewed the patient's lab results. Labs: Laboratory Results - last 24 hr 02/24/25 07:35 WBC 7.8 RBC 3.77 L Hgb 12.6 L Hct 35.1 L MCV 93.1 MCH 33.4 H MCHC 35.9 RDW Std Deviation 49.7 H RDW Coeff of Rosalee 14.9 H Plt Count 111 L MPV 9.5 Immature Gran % (Auto) 0.400 Neut % (Auto) 84.7 H Lymph % (Auto) 4.5 L Rawlins % (Auto) 9.9 Eos % (Auto) 0.1 Baso % (Auto) 0.4 Absolute Neuts (auto) 6.6 Absolute Lymphs (auto) 0.35 L Nucleated RBC % 0 Sodium 138 Potassium 3.3 Chloride 98 Carbon Dioxide 27.3 Anion Gap 12 BUN 17 Creatinine 1.39 H Estim Creat Clear Calc 39.01 L Est GFR (MDRD) Non-Af 58 L BUN/Creatinine Ratio 12.2 Glucose 112 H Calcium 9.8 Phosphorus 2.7 Magnesium 2.1 Total Bilirubin 0.72 AST 35 ALT 16 Alkaline Phosphatase 128 Total Protein 7.1 Albumin 3.8 Globulin 3.3 Albumin/Globulin Ratio 1.1 Lipase 109 H Radiography Diagnostic Testing: Clinical Impression(s) from Imaging Studies Abdomen CT 02/24/25 07:20 IMPRESSION: 1. Multiple distended small bowel loops with differential air-fluid levels measuring up to 3.7 cm, concerning for small bowel obstruction with possible transition in the right lower abdominal quadrant. 2. Bladder wall thickening which may be due to the decompressed state of the bladder or due to cystitis. 3. Small esophageal hiatal hernia. 4. Inguinal hernias, bilaterally. Reading Location: [facility] X-Ray 02/24/25 11:25 IMPRESSION: Tip of the nasogastric tube in the fundus of the stomach. Bilateral nephrostomy catheters. Bowel-gas pattern suggest adynamic/reflex ileus. Reading Location: [facility] Discharge Plan Dx/Rx/DC Orders Clinical Impression: SBO (small bowel obstruction), Malignant neoplasm of rectum, Vomiting, Nephrostomy present Disposition Disposition: Acute Care Hospital [facility] Discharge Date/Time: 02/24/25 12:02 What to do if you have Problems For any increased pain, shortness of breath, bleeding, nausea or vomiting, chestpain, or any unexpected problems, contact your Primary Care Provider. Call [facility] ([phone]) or report tothe closest Emergency Room. Call 911 if necessary. 02/24/25 1430 Cosigner Signature (if applicable): CC: Dr. Guy Ho MD; No Primary Care Physician ~ Signed [facility]05-08-2025 Radiology Diagnostic study note [facility] Imaging Services [address] [place] [address] Abdomen Single View (Portable) MR#: [id number] Acct: [id number] Name: ANDREW POSADA Rep #: [id number] : 1965 M 59 From: Gabriela Polk MD PCP: Care Physician,No Primary Status: REG ER Study:Abdomen Single View (Portable) Date of Exam: 02/24/25 Exam# [id number] Ordering Dr: Gwyn Esquivel DO PROCEDURE: ABDOMEN SINGLE VIEW (PORTABLE) 02/24/2025 REASON FOR EXAM: NG INSERTION. TECHNIQUE: Single view abdomen. COMPARISON: Chest dated 01/03/2025 FINDINGS: Bowel gas: Gas present in both large and small bowel. A few subtle air-fluid levels in loops of small bowel. Calcifications: Unremarkable. Bones: Unremarkable. Other: Tip of a nasogastric tube is in the region of the fundus of the stomach. Bilateral pigtail catheters are noted in the midabdomen representing nephrostomycatheters. RAD/Abdomen Single View (Portable) IMPRESSION: Tip of the nasogastric tube in the fundus of the stomach. Bilateral nephrostomy catheters. Bowel-gas pattern suggest adynamic/reflex ileus. Reading Location: [facility] CC: Dr. Gwyn Esquivel DO; No Primary Care Physician ~ Bilingual Medical Assistant: Signed [facility]05-08-2025 Radiology Diagnostic study note [facility] Imaging Services [address] [place], [place] [address] Abdomen/Pel W ORAL Cont Only MR#: [id number] Acct: [id number] Name: ANDREW POSADA Rep #: [id number] : 1965 M 59 From: Bessie Esquivel MD PCP: Care Physician,No Primary Status: REG ER Study:Abdomen/Pel W ORAL Cont Only Date of Ex am: 02/24/25 Exam# [id number] Ordering Dr: Gwyn Esquivel DO EXAM: CT Abdomen and Pelvis With oral contrast CLINICAL INDICATION: VOMITING, HX SBO TECHNIQUE: Axial computed tomography images of the abdomen and pelvis with oralcontrast. This CT exam was performed using one or more of the following dose reduction techniques: automated exposure control,adjustment of the mAand/or kV according to patient size, and/or use of iterative reconstruction technique. Oral contrast was administered. COMPARISON: CT Abdomen Pelvis dated 10/11/2024 FINDINGS: ARTIFACTS: Motion artifact. LUNG BASES: Unremarkable. No mass. No consolidation. MEDIASTINUM: Small esophageal hiatal hernia. ABDOMEN: LIVER: Fatty infiltration of the liver. GALLBLADDER AND BILE DUCTS: Unremarkable. No calcified stones. No ductal dilation. PANCREAS: Unremarkable. No mass. No ductal dilation. SPLEEN: Unremarkable. No splenomegaly. ADRENALS: Unremarkable. No mass. KIDNEYS AND URETERS: Indwelling bilateral nephrostomy tubes. No hydronephrosis. STOMACH AND BOWEL: Multiple distended small bowel loops with differential air- fluid levels measuring up to 3.7 cm, concerning for small bowel obstruction with possible transition in the right lower abdominal quadrant. No mucosal thickening. PELVIS: APPENDIX: No findings to suggest acute appendicitis. BLADDER: Bladder wall thickening which may be due to the decompressed state of the bladder or due to cystitis. REPRODUCTIVE: Unremarkable as visualized. ABDOMEN and PELVIS: INTRAPERITONEAL SPACE: Unremarkable. No free air. No significant fluid collection. BONES/JOINTS: No acute fracture. No dislocation. SOFT TISSUES: Inguinal hernias, bilaterally. VASCULATURE: Unremarkable. No abdominal aortic aneurysm. LYMPH NODES: Unremarkable. No enlarged lymph nodes. CT/Abdomen/Pel W ORAL Cont Only IMPRESSION: 1. Multiple distended small bowel loops with differential air-fluid levels measuring up to 3.7 cm, concerning for small bowel obstruction with possible transition in the right lower abdominal quadrant. 2. Bladder wall thickening which may be due to the decompressed state of the bladder or due to cystitis. 3. Small esophageal hiatal hernia. 4. Inguinal hernias, bilaterally. Reading Location: [facility] CC: Dr. Gwyn Esquivel, DO; No Primary Care Physician ~ Bilingual Medical Assistant: Signed [facility]05-06-2025 Evaluation + Plan note* Assessment & Plan Note - Greg Mason MD - 02/22/2025 8:10 PM EDTAssociated Problem(s): Ureteral stricture Patient with b/l ureteral strictures as well as JOHN. Will plan for cystoscopy, b/l nephrostograms and UDS. If bladder is SAFE, will proceed with b/l reimplants. Then AUS in the future. [facility]05-06-2025 Miscellaneous Notes* Assessment & Plan Note - Greg Mason MD - 02/22/2025 8:10 PM EDTAssociated Problem(s): Ureteral stricture Patient with b/l ureteral strictures as well as JOHN. Will plan for cystoscopy, b/l nephrostograms and UDS. If bladder is SAFE, will proceed with b/l reimplants. Then AUS in the future. [facility] History of Present illness Narrative* Greg Mason MD - 02/22/2025 1:20 PM EDT UROLOGY OUTPATIENT CONSULTATION: HISTORY OF PRESENT ILLNESS Andrew Posada is a 59 y.o. 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 in [place] c/b dehiscence requiring end colostomy and rectal stump abscess s/p IR drainage in April 2024 - History of pelvic radiation - During recent admission, he complained of urinary incontinence -Initially in retention following LAR -Uses up to 5 pads during day and up to 5 pads during nighttime -Incontinence pretty much constantly and not associated with stress or urge -Found to have massive bilateral hydronephrosis on 10/12/24 -B/l PCNs placed -Cr most recently 1.6 from 3 on admission. -Patient reports today he is likely to undergo another round of chemotherapy over the course of 4 months. Interval Update: -Patient finished chemotherapy last week -Low appetite -Interested in a reconstruction to get rid of his nephrostomy tubes Past Medical History: Patient Active Problem List Diagnosis Colon cancer Dehydration Mixed stress and urge urinary incontinence Ureteral stricture Past Surgical History: Past Surgical History: Procedure Laterality Date EXCHANGE NEPHROSTOMY CATHETER PERCUTANEOUS W/ IMAGE GUIDANCE Bilateral 11/12/2024 Laterality: Bilateral; Surgeon: Carmen Chambers MD; Location: [facility] INTERVENTIONAL RADIOLOGY (VIR) PLACEMENT NEPHROSTOMY CATHETER PERCUTANEOUS W/ IMAGE GUIDANCE Bilateral 10/12/2024 Laterality: Bilateral; Surgeon: Jennifer Lebron DO; Location: [facility] INTERVENTIONAL RADIOLOGY (VIR) SIGMOIDOSCOPY W/ BX N/A 06/25/2024 Laterality: N/A; Surgeon: Hilary Lewis MD; Location: [facility] PERIOP DRAINAGE BY CATHETER PERITONEAL/RETROPERITONEAL PERCUTANEOUS W/ IMAGING GUIDANCE Right 05/07/2024 Laterality: Right; Surgeon: Catherine Delatorre II, MD; Location: [facility] INTERVENTIONAL RADIOLOGY (CT) DRAINAGE BY CATHETER PERITONEAL/RETROPERITONEAL PERCUTANEOUS W/ IMAGING GUIDANCE N/A 04/30/2024 Laterality: N/A; Surgeon: Catherine Delatorre II, MD; Location: [facility] INTERVENTIONAL RADIOLOGY (CT) COLECTOMY Relevant Medications: ASA81, Tamsulosin Relevant Family and Social History: No relevant family history pertaining to this condition Tobacco Use: Low Risk (02/22/2025) Patient History Smoking Tobacco Use: Never Smokeless Tobacco Use: Never Passive Exposure: Not on file Allergies: has no known allergies. Physical Exam: Gen: No acute distress Abd: Flat, non distended : b/l PCNs draining [facility] Imaging: CT A/P: (09/2024) Bilateral hydro down to the level of the bladder Labs: Lab Results Component Value Date SODIUM 136 10/18/2024 POTASSIUM 3.7 10/18/2024 CHLORIDE 100 10/18/2024 CO2 28 10/18/2024 BUN 21 10/18/2024 CREATSERUM 1.62 (H) 10/18/2024 GLUCOSE 91 10/18/2024 Lab Results Component Value Date WBC 14.13 (H) 10/18/2024 HGB 7.8 (L) 10/18/2024 HCT 24.1 (L) 10/18/2024 PLATELET 340 (H) 10/18/2024 MCV 89.6 10/18/2024 No results found for: HGBA1C Assessment and Plan: Andrew Posada is a 59 y.o. male who presented today for evaluation of Ureteral Stricture Disease and post-radiation incontinence. We discussed the following problems: Ureteral stricture Patient with b/l ureteral strictures as well as JOHN. Will plan for cystoscopy, b/l nephrostograms and UDS. If bladder is SAFE, will proceed with b/l reimplants. Then AUS in the future. This represents a chronic illness with severe exacerbation, progression, or side effects of treatment; for which an extensive amount of review including medical records, available test results, an independent history, ordering tests of my own, and discussion of this case with my urologic colleagueswas required to formulate a plan. This plan includes a recommendation for management with deferral of a final management decision in favor of obtaining more information.. After the discussion outlined above, the patient and I mutually agreed on the following course of action: -Cysto, UDS and b/l Antegrade Nephrostograms At the end of the visit, the patient was given time to answer any and all remaining questions. I explained that this is a chronic condition and we would be following up regularly for this condition. I would be happy to see them again outside of what we agreed above, should further issues arise. Greg Mason MD [facility] Evaluation note * Diagnosis Onset Date Resolution Status Admit Date Bradycardia acute November 03, 2024 8:40am Acute on chronic renal failure chronic November 03 8:40am Malignant neoplasm of rectum chronic November 03, 2024 8:40am Bradycardia acute November 05, 2024 8:31am Chemotherapy management, encounter for acute November 08 7:32am Acute on chronic renal failure chronic November 08 7:32am Malignant neoplasm of rectum chronic November 08, 2024 7:32am Chemotherapy management, encounter for acute November 22 8:46am Cloudy urine acute November 8:46am Acute on chronic renal failure chronic November 22 8:46am Malignant neoplasm of rectum chronic November 22, 2024 8:46am Acute on chronic renal failure chronic December 06 8:41am Malignant neoplasm of rectum chronic December 06, 2024 8:41am Hypokalemia resolved November 8:41am Acute on chronic renal failure chronic December 20, 2024 8:29am Malignant neoplasm of rectum chronic December 20, 2024 8:29am Cloudy urine acute December 28, 2024 7:43am Acute on chronic renal failure chronic December 28, 2024 7:43am Malignant neoplasm of rectum chronic December 28, 2024 7:43am Chemotherapy management, encounter for acute January 03, 2025 8:48am Cough acute January 03 8:48am Malignant neoplasm of rectum chronic January 03, 2025 8:48am Chemotherapy management, encounter for acute January 17, 2025 8:28am Malignant neoplasm of rectum chronic January 17, 2025 8:28am Chemotherapy management, encounter for acute January 31, 2025 8:18am Malignant neoplasm of rectum chronic January 31, 2025 8:18am Chemotherapy management, encounter for acute February 14, 2025 8:51am UTI (urinary tract infection) acute February 14, 2025 8:51am Malignant neoplasm of rectum chronic February 14, 2025 8:51am [facility] Work Phone: [phone]) 211-219901-15-2025 Evaluation note* Diagnosis Onset Date Resolution Status Admit Date Bradycardia acute November 03, 2024 8:40am Acute on chronic renal failure chronic November 03 8:40am Malignant neoplasm of rectum chronic November 03, 2024 8:40am Bradycardia acute November 05, 2024 8:31am Chemotherapy management, encounter for acute November 08 7:32am Acute on chronic renal failure chronic November 08 7:32am Malignant neoplasm of rectum chronic November 08, 2024 7:32am Chemotherapy management, encounter for acute November 22 8:46am Cloudy urine acute November 8:46am Acute on chronic renal failure chronic November 22 8:46am Malignant neoplasm of rectum chronic November 22, 2024 8:46am Acute on chronic renal failure chronic December 06 8:41am Malignant neoplasm of rectum chronic December 06, 2024 8:41am Hypokalemia resolved November 8:41am Acute on chronic renal failure chronic December 20, 2024 8:29am Malignant neoplasm of rectum chronic December 20, 2024 8:29am Cloudy urine acute December 28, 2024 7:43am Acute on chronic renal failure chronic December 28, 2024 7:43am Malignant neoplasm of rectum chronic December 28, 2024 7:43am Chemotherapy management, encounter for acute January 03, 2025 8:48am Cough acute January 03 8:48am Malignant neoplasm of rectum chronic January 03, 2025 8:48am Chemotherapy management, encounter for acute January 17, 2025 8:28am Malignant neoplasm of rectum chronic January 17, 2025 8:28am Chemotherapy management, encounter for acute January 31, 2025 8:18am Malignant neoplasm of rectum chronic January 31, 2025 8:18am Chemotherapy management, encounter for acute February 14, 2025 8:51am UTI (urinary tract infection) acute February 14, 2025 8:51am Malignant neoplasm of rectum chronic February 14, 2025 8:51am SBO (small bowel obstruction) acute February 24, 2025 11:29am Malignant neoplasm of rectum chronic February 24, 2025 11:29am [facility] Work Phone: [phone]) 919-103401-10-2025 History of Present illness Narrative* Hilary Lewis MD - 10/29/2024 11:30 AM EST CC: Chief Complaint Patient presents with Follow-up Hospital follow up visit, no bleeding and no pain today. His appetite has returned and he is eatingmore. Last visit: Admit Date: 10/11/2024 11:15 PM Discharge Date: 18 October 2024 HPI: 58 y.o. yo male presents for followup Eating better. Gainign some slight weight Overall feels better Neph tubes working. Also helping w uriary incontinence Exam BP 129/86 Pulse 58 Ht 1.727 m (5' 8) Wt 51.7 kg (114 lb) BMI 17.33 kg/m Smoking Status Never Body mass index is 17.33 kg/m . General appearance: well and Abdomen: soft. Npeh tubes sutured in place Other records reviewed: MRI 10/06/24 IMPRESSION: 1. The polypoid lesion in the rectal stump, which represents biopsy-proven recurrent rectal adenocarcinoma, has decreased in size compared to the May 2024 CT. 2. No lymphadenopathy. 3. Perirectal abscesses, one of which is stable, though the other is new or increased in conspicuity. The more inferior collection appears to communicate with the upper rectal stump. 4. Scarring and inflammation near the superior aspect of the rectal stump, likely representing a combination of postoperative scarring, posttreatment changes, and reactive inflammation from the abscess. 5. Left lower quadrant colostomy, not fully evaluated on this exam. A/ doing much better s/p urinary drainage and resolution of SBO MRI shows some reduction of tumor in the rectum No known metastatic disease P/ Flex isg in 5 months, shortly after finishing chemoterhayp (Please note that portions of this note were completed with a voice recognition program. Efforts were made to edit the dictation but occasionally words are mis-transcribed.) documented in this [facility]01-10-2025 Instructions* Patient Instructions* Raffy Saravia - 10/29/2024 11:30 AM EST Images from the original note were not included. Colonoscopy Date: 04/04/25 Arrival Time: 630am Location: [place] [address] 1 Day Bowel Prep with MiraLAX and Dulcolax Preparing for Your Colonoscopy or Procedure Review this information when you receive it so that you are prepared for your procedure. Look for more information from Endoscopy Scheduling or check with your doctor. For a print-friendly version, please visit [email or web address]. Important to know: You may need to make changes to your medicines up to 10 days before your procedure. You will need to change your diet starting 5 days before and start this bowel prep at 3 p.m. the day before. You need to have an adult come with you to your procedure. Buy at the store: Large bottle (8.3 oz or 238 gm) of liquid laxative polyethylene glycol 3350, such as MiraLAX 4 tablets Dulcolax laxative tablets (5 mg each) 2 sport drinks (32 oz size), such as Gatorade (no red or purple) For diabetes: use sugar free option Starting 5 days before your procedure, do not eat: [place] Nuts Leafy green Popcorn Fruit with skin or seeds Whole grain or high fiber foods Do not take vitamins with iron, iron tablets, or fiber supplements. Medicine changes STOP GLP-1 shots 14 days before any surgery or endoscopy. This precaution aims to minimize the riskof aspiration and related complications Tell your doctor ALL the medicines you take, including vitamins, supplements, and herbal remedies. Your doctor will tell you if you should stop taking any of them before this procedure and how soon to do it. If you take medicines for diabetes: Do not take oral diabetes medicines on the day of your procedure. If you take injection medicines for diabetes, such as insulin, ask the doctor who ordered the medicines how to adjust your medicines for this procedure. If you take a blood thinner (anticoagulant or antiplatelet) medicine: Your doctor may tell you to stop taking it a certain number of days before your procedure. Or your doctor may tell you to keep taking it. Make sure that you understand exactly what your doctor wants you to do. Ask the doctor who ordered this medicine if it is safe for you to stop taking it before this procedure. If you have had a stent, especially a stent in your heart or brain, DO NOT STOP taking your blood thinner medicine until you are instructed by the doctor who placed the stent. If your doctor has told you NOT to stop taking these medicines before this procedure, please call [phone] and ask to talk to a nurse. If you take aspirin or NSAIDs, such as ibuprofen (Advil, Motrin, and Nuprin), naproxen (Aleve), or celecoxib (Celebrex) for pain, you do NOT need to stop taking these medicines before this procedure. You should continue all your other medicines with a sip of water unless you are instructed to make a change before this procedure. About this prep You will drink a medicine mixture to clear your bowels of all solid matter. You will need to go to the bathroom often, and your stool will get very watery. The prep may cause you to have cramps or feel bloated. The prep medicine may not taste good. You need to take all of it so your bowels are clear. Your bowels are clear when you are passing pale yellow liquid without any stool. If you vomit up your prep medicine, have not had any bowel movements, or your bowels are not clear after this prep, please call [phone]. The procedure may need to be rescheduled. If you have a history of heart failure, kidney disease, cirrhosis of the liver, electrolyte problems, or chronic constipation, you may need a different bowel prep medicine. Please contact the nurse at [phone] for instructions. Day before your procedure Start Clear Liquid Diet Do not eat any solid food or eat or drink any milk products until after your procedure is done. Drink only clear liquids. You can drink clear and light colored liquids up to 4 hours before your procedure. Do not have anything with red or purple dye. Okay to have: Water, flavored water, or ice chips Coffee or tea (no milk or cream) Garrett duane or lemon-craig soda Fruit juices you can see through, such as apple orwhite grape Gatorade, other sports drinks, or other drink mixes like Javad-Aid Popsicles (no fruit or cream) (no red or purple) Jell-O or other gelatin, without fruit (no red or purple) Clear broth or bouillon Do NOT have: Alcoholic drinks Milk Smoothies Milkshakes Cream Yogurt [place] juice Grapefruit juice Tomato juice Red or purple drinks Soup (other than clear broth) At 3 p.m., take 4 Dulcolax tablets. Pour all of the MiraLAX and the two bottles of sports drink into a larger container and shake well.Put it into the refrigerator to keep cool. At 6 p.m., drink one (8-ounce) glass of the mixture every 10 to 15 minutes until you finish half ofit. It may help to use a straw. Put the rest back in the refrigerator. 6 hours before your procedure 6 hours before your procedure, drink the rest of the mixture. You may need to set your alarm to getup to finish your prep medicine. Drink two (8-ounce) glasses of clear liquids after you finish the mixture. You can drink clear liquids up to 4 hours before your procedure. You can take a small sip of water to take any allowed medicines within 2 hours of your procedure. Your procedure will be delayed or canceled if you drink anything other than a sip of water with medicines. This is important to make sure it is safe to give you sedation or anesthesia. If you have illegal drugs or alcohol in your system, your procedure may be rescheduled for your safety. Arriving for the procedure Arrive by the arrival time on your letter, so the staff can get you ready. Expect to be here 2 to 4hours for your procedure and recovery time. Please leave all valuables and jewelry, including piercings, at home. Female patients should come prepared to give a urine sample in case a procedure is needed. Bring these with you to your procedure: List of all medicines, including prescription and over the counter medicines, and any vitamin or herbal products you are taking List of your allergies List of medical conditions and previous surgeries Copy of your advanced directive, such as a living will or power of divorce attorney Photo identification, insurance card, and co-payment, if needed You need to have an adult come with you to your procedure You will be given medicine to help you relax during the procedure. For your safety, you will need aresponsible adult to drive you home after the procedure. Your putaway driver needs to check in for the procedure with you. If your putaway driver doesn t check in with you, we will need to speak to your putaway driver before we can start your procedure. Your procedure will be delayed or canceled if we cannot speak to your putaway driver. If your putaway driver leaves the facility during the procedure, they need to give the staff a phone numberwhere they can be reached. Your putaway driver needs to be within 30 minutes of the procedure location. If you take a cab, bus, or medical transportation, an adult other than the putaway driver needs to ride with you for your safety. You should have an adult with you to help you at home after the procedure for at least 6 hours[address], operate machinery, drink alcohol, or make any legal decisions until the day after your procedure. For more information about having a colonoscopy at [facility], [email or web address]. 2013 - February 21, 2023, [facility] Evaluation + Plan note* Assessment & Plan Note - Greg Mason MD - 10/22/2024 10:22 PM EST Associated Problem(s): Ureteral stricture B/l ureteral stricture likely from radiation, will plan for bilateral reimplant depending on nephrostograms and UDS. [place]01-03-2025 Miscellaneous Notes* Assessment & Plan Note - Greg Mason MD - 10/22/2024 10:22 PM ESTAssociated Problem(s): Ureteral stricture B/l ureteral stricture likely from radiation, will plan for bilateral reimplant depending on nephrostograms and UDS. * Assessment & Plan Note - Greg Mason MD - 10/22/2024 10:21 PM ESTAssociated Problem(s): Mixed stress and urge urinary incontinence Patient with mixed urinary incontinence likely from APR and a history of pelvic radiation. Will be a good AUS candidate, but only if his bladder is SAFE on UDS. documented in this [facility]01-03-2025 Evaluation + Plan note* Assessment & Plan Note - Greg Mason MD - 10/22/2024 10:21 PM EST Associated Problem(s): Mixed stress and urge urinary incontinence Patient with mixed urinary incontinence likely from APR and a history of pelvic radiation. Will be a good AUS candidate, but only if his bladder is SAFE on UDS. [facility]01-03-2025 History of Present illness Narrative* Greg Mason MD - 10/22/2024 2:20 PM EST UROLOGY OUTPATIENT CONSULTATION: HISTORY OF PRESENT ILLNESS Andrew Posada is a 58 y.o. 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 in [place] c/b dehiscence requiring end colostomy and rectal stump abscess s/p IR drainage in April 2024 - History of pelvic radiation - During recent admission, he complained of urinary incontinence -Initially in retention following LAR -Uses up to 5 pads during day and up to 5 pads during nighttime -Incontinence pretty much constantly and not associated with stress or urge -Found to have massive bilateral hydronephrosis on 10/12/24 -B/l PCNs placed -Cr most recently 1.6 from 3 on admission. -Patient reports today he is likely to undergo another round of chemotherapy over the course of 4 months. Past Medical History: Patient Active Problem List Diagnosis Colon cancer Dehydration Past Surgical History: Past Surgical History: Procedure Laterality Date PLACEMENT NEPHROSTOMY CATHETER PERCUTANEOUS W/ IMAGE GUIDANCE Bilateral 10/12/2024 Laterality: Bilateral; Surgeon: Jennifer Lebron DO; Location: [facility] INTERVENTIONAL RADIOLOGY (VIR) SIGMOIDOSCOPY W/ BX N/A 06/25/2024 Laterality: N/A; Surgeon: Hilary Lewis MD; [facility] [facility] DRAINAGE BY CATHETER PERITONEAL/RETROPERITONEAL PERCUTANEOUS W/ IMAGING GUIDANCE Right 05/07/2024 Laterality: Right; Surgeon: Catherine Delatorre II, MD; Location: [facility] INTERVENTIONAL RADIOLOGY (CT) DRAINAGE BY CATHETER PERITONEAL/RETROPERITONEAL PERCUTANEOUS W/ IMAGING GUIDANCE N/A 04/30/2024 Laterality: N/A; Surgeon: Catherine Delatorre II, MD; Location: [facility] INTERVENTIONAL RADIOLOGY (CT) COLECTOMY Relevant Medications: ASA81, Tamsulosin Relevant Family and Social History: No relevant family history pertaining to this condition Tobacco Use: Low Risk (09/01/2024) Patient History Smoking Tobacco Use: Never Smokeless Tobacco Use: Never Passive Exposure: Not on file Allergies: has No Known Allergies. Physical Exam: Gen: No acute distress Abd: Flat, non distended : b/l PCNs draining CYU Imaging: CT A/P: (09/2024) Bilateral hydro down to the level of the bladder Labs: Lab Results Component Value Date SODIUM 136 10/18/2024 POTASSIUM 3.7 10/18/2024 CHLORIDE 100 10/18/2024 CO2 28 10/18/2024 BUN 21 10/18/2024 CREATSERUM 1.62 (H) 10/18/2024 GLUCOSE 91 10/18/2024 Lab Results Component Value Date WBC 14.13 (H) 10/18/2024 HGB 7.8 (L) 10/18/2024 HCT 24.1 (L) 10/18/2024 PLATELET 340 (H) 10/18/2024 MCV 89.6 10/18/2024 No results found for: HGBA1C Assessment and Plan: Andrew Posada is a 58 y.o. male who presented today for evaluation of Ureteral Stricture Disease and post-radiation incontinence . We discussed the following problems: Mixed stress and urge urinary incontinence Patient with mixed urinary incontinence likely from APR and a history of pelvic radiation. Will be a good AUS candidate, but only if his bladder is SAFE on UDS. Ureteral stricture B/l ureteral stricture likely from radiation, will plan for bilateral reimplant depending on nephrostograms and UDS. This represents a chronic illness with severe exacerbation, progression, or side effects of treatment; for which an extensive amount of review including medical records, available test results, an independent history, ordering tests of my own, and discussion of this case with my urologic colleagueswas required to formulate a plan. This plan includes a recommendation for management with deferral of a final management decision in favor of obtaining more information.. After the discussion outlined above, the patient and I mutually agreed on the following course of action: -Follow-up in 3 months to track progress of chemotherapy -UDS prior to reimplant to ensure bladder is SAFE -Will still need antegrade nephrostograms -AUS if bladder SAFE and patient successfully reimplanted. At the end of the visit, the patient was given time to answer any and all remaining questions. I explained that this is a chronic condition and we would be following up regularly for this condition. I would be happy to see them again outside of what we agreed above, should further issues arise. Greg Mason MD documented in this encounterCenterville2024 Nurse Note* Nursing Notes - Brittani Soria RN - 10/18/2024 12:52 PM EST RN went over all discharge instructions with patient. RN discussed all wound/dressing care instructions, all follow-up appointments, and when to call should any concerns arise (wound infection symptoms, unrelieved pain, etc.). Patient stated understanding and all questions were answered at this time. RN completed patient teaching involving neph tube care. RN provided patient with drain supplies. RN removed patient's peripheral IV per policy, catheter was intact. Patient left floor with all belongings, all wound/dressing care supplies, all prescriptions, and all discharge instructions in wheelchair with RECEIVING MANAGER. Patient will be driven home by a friend. [place]2024 Miscellaneous Notes* Nursing Notes - Brittani Soria RN - 10/18/2024 12:52 PM EST RN went over all discharge instructions with patient. RN discussed all wound/dressing care instructions, all follow-up appointments, and when to call should any concerns arise (wound infection symptoms, unrelieved pain, etc.). Patient stated understanding and all questions were answered at this time. RN completed patient teaching involving neph tube care. RN provided patient with drain supplies. RN removed patient's peripheral IV per policy, catheter was intact. Patient left floor with all belongings, all wound/dressing care supplies, all prescriptions, and all discharge instructions in wheelchair with RECEIVING MANAGER. Patient will be driven home by a friend. * Nursing Notes - Susie Fuentes, RN - 10/18/2024 11:45 AM EST 10/18/24 1144 Referral Information Arrived From emergency department;another healthcare institution, not defined Final Discharge Planning Discharge Disposition Home Services at Discharge Wound/drain/line/ostomy-supplies;Outpatient clinical services (ie: lab draws,transfusions, injectables) CM/SW AVS Portion Completed Yes Plan Plan Home today, 30 day monitor ordered, OP Urology and OP Cardiology Patient/Family In Agreement With Plan yes Transport Request Mode of Transfer [facility] PCRM Discharge Note Patient discussed in medical rounds for discharge to home today. PCRM met with the patient/family/spouse to discuss final discharge plan. Services for Discharge Pt doesn't have insurance; to complete neph tube dressing changes. They are aware of recommendation for 30 day event monitor due to sinus bradycardia during admission. They are aware of costs and wish to follow up with cardiology closer to home, referral sent. Consults with Final Discharge Recommendations Nephrology- signed off, renal function improving Radiology- IR placed bilateral nephrostomy tubes, no flushing needed, follow up case request for exchange placed Urology- OP follow up arranged Lines/Tubes/Drains/Wounds/Supplies Bilateral Neph tubes- bedside RN to give supplies for dressing changes, to complete Colostomy- had prior to admission Port- had prior to admission, follows in [place] for chemo/radiology Medications No barriers anticipated in obtaining discharge medications. No prior authorizations anticipated. Reconciliation of medications to be completed by the medical team. Pt to discharge on po augmentin; no other concerns for high cost [facility] Durable Medical Equipment Event monitor- [employer] will call the patient to verify address prior to shipping event monitor. Pt is aware and agreeable to out of pocket costs at this time. Choice Was Patient Choice Provided: N/A Transportation Transportation will be provided by son. Education Discharge education provided by the medical team and updated in the After Visit Summary. Bedside RN to provide neph tube dressing supplies for discharge and review care. Follow Up(s) Any follow up requested by the medical team arranged. Appointments in the After Visit Summary. Future Appointments Provider Department Center 10/22/2024 2:20 PM [facility] [place] Arrive at: Arrive to 2nd Floor, Registration [address] [facility] 10/29/2024 11:30 AM Hilary Lewis General [facility] Gastrointestinal Surgery Outpatient Care [place] Arrive at: Arrive to 1st Floor Registration KATYA Oropeza Cardiology Follow up Referral was placed to follow up with your heart monitor results. ACO Patient: No Was Ambulatory PCRM added to the Care Team? No- No outpatient PCRM for this physician The PCRM has updated the patient's nurse Brittani Rowe regarding the final discharge plan. Risk of Readmission: 8.5 Category Reference: Low: 0% - 5% Medium - Low: 5.1% - 10% Medium - High: 10.1% - 16% High: 16.1% - 100% Readmission Risk Interventions Documented: Yes No other discharge needs have been identified at this time. This plan was developed in collaboration with the patient and caregiver/preferred decision maker. Patient and family are in agreement with final discharge plan. Please refer to AVS and medical record for additional information. Patient instructed to call with questions. PCRM will continue to follow with medical team for any additional discharge planning needs. DAVID Moreno Colorectal Surgery [phone] If any changes to this individualized plan of care during evening and weekend hours and assistance is needed, please page the network operations specialist [facility] at [phone]. * Plan of Care - Flory Perez MD - 10/18/2024 1:12 AM EST Colorectal Surgery Plan of Care Note - Paged about an episode of urinary incontinence despite having bilateral nephrostomy tubes - Evaluated patient at bedside - patient denies any pain, urine leakage was clear yellow urine, nephrostomy bags with clear yellow urine on L and slightly pink tinged on R (unchanged from prior exam). Neph tube insertion sites with dressing c/d/I, no tenderness to palpation. Abdomen soft, non-tender. Ostomy in LLQ with stool in ostomy bag. VSS. - Will continue to monitor Flory Perez MD General Surgery PGY-1 #[id number] * Nursing Notes - Yesy Barrios RN - 10/18/2024 12:32 AM EST Paged Flory Perez MD @ 0030 RE: Tim [id number]: Please call [phone] regarding pt's recent urine incontinence. Thanks, Yesy Call back received: MD to come to bedside. MD at bedside @ 0100 * Nursing Notes - Yesy Barrios RN - 10/17/2024 2:43 AM EST @ 0244 paged Kori Cuellar MD: Critical Hgb 6.4. Will need consent and type and cross. Thanks! called back @ 0300 and stated will come to bedside * Nursing Notes - Flory Pennington RN - 10/16/2024 5:53 PM EST @4363 paged Kori Cuellar MD- [id number]: Tim: FYI, L neph tube is now pink like his R neph tube. thanks! [phone] * Nursing Notes - Rachael Hanley RN - 10/15/2024 6:49 PM EST Patient having bradycardia today. EKG completed at 0900 and again at 1230. IHIS chat continued withKori Cuellar MD. 1600: Sent message. Pt maintaining HR in the 30's. Do you want to treat this? Responded: Will reach out to cards. Make him PCU. * Nursing Notes - Rachael Hanley RN - 10/15/2024 6:45 PM EST Paged team:Andrew Posada [id number]: pt just had 8 beat run of v-tach. Pt asymptomatic Rachael [phone] * Plan of Care - Megan Winston MD - 10/15/2024 4:19 PM EST Nephrology sign off note Nephrology Problem List: Non-oliguric INOCENCIA Baseline Cr 0.7 Cr at consult: 3.06 UA with large LE, >20 WBCs, cloudy Etiology likely 2/2 severe [address]reteronephrosis on CT from OSH due to intra-abdominal abscess vs septic/ischemic ATN Azotemia but no uremia Severe protein malnutrition Leukocytosis 2/2 UTI vs abscess - gram negative on Culture Anemia Unclear etiology Renal function continues to improve. Thank you for allowing us to participate in the care of Andrew Posada. We will sign off at this time. Please do not hesitate to call for questions or concerns. Megan Winston MD [employer] [facility] Division of Nephrology * Nursing Notes - Susie Fuentes RN - 10/15/2024 9:57 AM EST Initial Assessment Referral Information Arrived From: emergency department Readmission Information Was patient readmitted within 30 Days?: No Information Source Information Source: patient , spouse Information Source Name: Brandon Posada Information Source Number: see demographic sheet Outpatient Providers Outpatient Providers Updated In IHIS: Yes Contact Information Supervisor Type Disk Quality Control/SW Added to Care Team: Yes This B[employer] Contractor is Primary Supervisor Type Disk Quality Control/SW: Yes Supervisor Type Disk Quality Control Name: Susie Fuentes Supervisor Type Disk Quality Control's Social Work Contact Name: Zully Aburto [employer] [facility] Living Environment Lives With: spouse, child(brian), adult (4 of 8 children live with him and his ) Living Arrangement and Set Up: house Provides Primary Care For: no one Primary Care Provided By: self, spouse/significant other (Spouse assists with dressing changes, etc. Pt had colostomy prior to admission. Last office visit pt reported being deconditinoed but still able to complete ADLs) Support System: Immediate family, Extended family, Community Able to Return to Prior Arrangements: yes Functional Status Patient's Functional Status Prior To This Admission?: Independent Are There Status Changes This Admission?: Yes Changes Observed Since Admission?: Physical Concerns With Patient Being Able To Care For Themselves At Discharge? : Has Assistance (Friend, Family, Skilled Provider) Who Is Patient's Primary Contact For Discharge Planning, Education And Care For Discharge?: Spouse Can Support Person Meet The Care Needs Of The Patient?: Yes Employment/Financial Employed?: Yes Employment Details: Pt and family have income; pt currently unable to work Employment/Financial Concerns: no Source Of Income: salary/wages Financial Concerns: inadequate insurance coverage Insurance Medical Insurance Verified: No Contacted Financial Assistance/Updated Medical Team: Yes ([employer] [place] approved 100% until 05/03/2025, pt is not eligible to reapply for HCAP until 12/22/2024) Prescription Coverage: No (Pt able to cover costs of medications) Pharmacy updated in IS: Yes ([facility] is preferred) Initial Discharge Planning Home Care Services (CARE TRANSITION MANAGER): No Home Therapies (CARE TRANSITION MANAGER): None DME (CARE TRANSITION MANAGER): None, Ostomy Supplies Medical Supplies (CARE TRANSITION MANAGER): Ostomy Supplies Patient Goal for Discharge: Get better Expected Discharge Disposition: Home Anticipated Services at Discharge: Outpatient follow up Anticipated Changes Related to Illness: inability to work Current Discharge Risk: other (see comments) (high risk diagnosis) Transportation Available: car, family or friend will provide Assessment/Concerns to be Addressed Concerns To Be Addressed: denies needs/concerns at this time Continued Stay Discharge Planning Expected Discharge Disposition: Home Anticipated Services at Discharge: Outpatient follow up Social Work Assessment Information Source Information Source: patient , spouse Information Source Name: Brandon Posada Information Source Number: see demographic sheet Contact Information Supervisor Type Disk Quality Control/SW Added to Care Team: Yes This B[employer] Contractor is Primary Supervisor Type Disk Quality Control/SW: Yes Supervisor Type Disk Quality Control Name: Susie Fuentes Supervisor Type Disk Quality Control's Social Work Contact Name: Zully Aburto [employer] Living Environment Lives With: spouse, child(brian), adult (4 of 8 children live with him and his ) Living Arrangement and Set Up: house Provides Primary Care For: no one Primary Care Provided By: self, spouse/significant other (Spouse assists with dressing changes, etc. Pt had colostomy prior to admission. Last office visit pt reported being deconditinoed but still able to complete ADLs) Support System: Immediate family, Extended family, Community Able to Return to Prior Arrangements: yes Employment/Financial Employed?: Yes Employment Details: Pt and family have income; pt currently unable to work Employment/Financial Concerns: no Source Of Income: salary/wages Financial Concerns: inadequate insurance coverage Discharge Planning Referral Information Arrived From: emergency department Final Discharge Planning Discharge Disposition: Home Services at Discharge: Wound/drain/line/ostomy-supplies (Outpatient follow up) CM/SW AVS Portion Completed: Yes (Retired/Read Only) Plan Plan: Home possibly this weekend with support from spouse Patient/Family In Agreement With Plan: yes PCRM Initial Assessment and Final Discharge Planning Note Met with patient and spouse to complete the initial assessment and to discuss final discharge plan.Explained role and function of PCRM in multidisciplinary team. Contact number provided for questions. Demographic information reviewed with patient/family and confirmed as correct. Reason for Admission: Pt presented with concern for SBO, hydronephrosis, INOCENCIA Discharge Plan of Care: Patient discussed in multidisciplinary rounds. Patient is medically ready for discharge possibly this weekend if he is able to tolerate a diet once advanced. Starting clear liquids today. Services for Discharge: Discharging to home. Pt does not have a traditional health insurance plan, his spouse, children andcommunity assist with his care needs. will complete Neph tube dressing changes, she has already watched once. They will need supplies at discharge. Advanced directives: Patient does not have Advanced Directives on File Consults with Final Discharge Recommendations Urology- follow up scheduled PT ok to return home Nephrology- awaiting final recs Lines/Drains/Tubes/Wounds/Supplies for Discharge Bilateral Nephrostomy tubes- will care for at home, spouse to assist Port- had CARE TRANSITION MANAGER Colostomy- Had CARE TRANSITION MANAGER Medications No barriers anticipated in obtaining discharge medications. No prior authorizations anticipated. Reconciliation of medications to be completed by the medical team. Pt is currently on IV Zosyn, will transition to po augmentin at discharge. Durable Medical Equipment Bedside RN will provide for neph tube dressing supplies. Choice Was Patient Choice Provided: N/A Transportation Transportation will be provided by family. Education Discharge education provided by the medical team and updated in the After Visit Summary. Bedside RN to provide teaching on neph tube dressing changes. Follow Up(s) Any follow up requested by the medical team arranged. Appointments in the After Visit Summary. Future Appointments Provider Department Center 10/22/2024 2:20 PM Greg Mason [facility] [place] Arrive at: Arrive to 2nd Floor, Registration [address] EEI 10/29/2024 11:30 AM Hilary Lewis [facility] [place] Arrive at: Arrive to 1st Floor Registration [facility] Pt aware he will come back to see Dr. Lewis and get labs drawn prior to his appointment. ACO Patient: No Was Ambulatory PCRM added to the Care Team? No- No outpatient PCRM for this physician The PCRM has updated the patient's nurse Rachael regarding the final discharge plan. Risk of Readmission: 9.2 Category Reference: Low: 0% - 5% Medium - Low: 5.1% - 10% Medium - High: 10.1% - 16% High: 16.1% - 100% Readmission Risk Interventions Documented: Yes No other discharge needs have been identified at this time. This plan was developed in collaboration with the patient and caregiver/preferred decision maker and is in agreement with final discharge plan. Please refer to AVS and medical record for additional information. Patient instructed to call with questions. PCRM will continue to follow with medical team for any additional discharge planning needs. AUDRA Moreno Colorectal Surgery [phone] For evening and weekend discharge assistance: Pager for network operations specialist PCR at [phone] Pager for network operations specialist [phone] * Plan of Care - Salina Mccain MD, PhD - 10/13/2024 10:22 PM EST Andrew Posada is a 58 y.o. 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 Currently admitted for developing SBO, INOCENCIA and c/f perirectal abscess. Urology c/s for urinary incontinence. Also has bilateral hydronephrosis. Got bilateral NT with IR, good urine output. Urine culture: GNB, on Zosyn. Currently HDS and AF. Recent Labs 10/12/24 0139 10/12/24 1633 10/13/24 0411 10/13/24 1446 WBC 20.89* -- 17.22* -- HGB 10.1* -- 7.9* -- CREATSERUM 3.01* 3.06* 3.01* 2.80* Baseline 0.7 Dispo: will need outpatient FU urology Urology will sign off at this time. Please reach out with any questions or concerns. Salina Mccain MD-PhD Urologic Surgery, PGY-2 Pager: [phone] * Plan of Care - Nuria Carey PT - 10/13/2024 8:58 AM EST Problem: PT - General Goals Goal: Supine <-> Sit Transfers - Patient will perform supine to/from sit transfers with independence and without use of hospital bed features in order to improve functional mobility and safety. Outcome: Ongoing Goal: Sit <-> Stand Transfers - Patient will perform sit to/from stand transfers with independence and without an assistive device in order to improve functional mobility and safety. Outcome: Ongoing Goal: Ambulation - Patient will ambulate 500 feet with independence and without an assistive deviceto improve ability to safely navigate home and community. Outcome: Ongoing Goal: Stairs - Patient will ascend/descend 12 stairs with independence, without an assistive device, and railing(s) to improve ability to safely navigate home and community. Outcome: Ongoing * Nursing Notes - Bridget Lucero RN - 10/12/2024 7:02 PM EST Interventional Radiology procedure completed with IR Attending Dr. Lebron of percutaneous bilateral nephrostomy tube placement. Pt tolerated procedure with moderate sedation and local numbing agentand IV sedation medications. Pt to travel to [id number] post procedure. Post procedure orders in place and include strict 2 hour bedrest * Plan of Care - Margarita Bill RN - 10/12/2024 5:32 PM EST Problem: Adult Inpatient Plan of Care Goal: Plan of Care Review Outcome: Progressing Goal: Patient-Specific Goal (Individualized) Outcome: Progressing Goal: Absence of Hospital-Acquired Illness or Injury Outcome: Progressing Goal: Optimal Comfort and Wellbeing Outcome: Progressing Goal: Readiness for Transition of Care Outcome: Progressing Problem: Malnutrition Goal: Improved Nutritional Intake Outcome: Progressing * Plan of Care - Miguel A Holloway MD - 10/12/2024 4:30 PM EST IR plan of care: After discussion with urology, low concern for urinary retention causing hydronephrosis given low post-void residuals. Given significantly elevated Cr, and UA showing concerns for UTI, will opt for bilateral nephrostomy tube this evening under moderate sedation. Plan discussed with urology and surgery. Miguel A Holloway MD Integrated Interventional [employer] Supervisor PGY-6 * Nursing Notes - Margarita Bill RN - 10/12/2024 2:00 PM EST Placed NG in pt and educated pt bridling the NG pt refused it and later on pt NG pull out when getting up. RN push back and again educated pt why bridling would be best for him but again he refused it also educated pt at bedside * Plan of Care - Toshia Galan RD - 10/12/2024 11:12 AM EST Problem: Malnutrition Goal: Improved Nutritional Intake Outcome: Progressing NUTRITION CONSULT Nutrition Recommendations and Plan of Care: 1. Diet advancement as able pending improvement bowel obstruction 2. Will send oral nutrition supplements pending diet order: Ensure Clear (240 kcal, 8 g pro) TID with meals when on CLD Ensure Plus (350 kcal, 13 g pro) TID with meals when FLD/Regular diet. 3. Bowel regimen per primary team 4. If tube feeds become part of plan of care, recommend Nepro at 40 ml/hr (1728 kcal, 78 g pro) 5. If unable to enterally feed in the next 48-72 hours, would consider initiation of TPN in the setting of prolonged NPO status / severe protein calorie malnutrition 6. RD will continue to follow Per HPI: Andrew Posada is a 58 y.o. male with a history of colonic adenocarcinoma s/p LAR in [place] c/b dehiscence requiring end colostomy and rectal stump abscess s/p IR drainage in April 2024 now after completion of chemotherapy and radiation presenting as direct admit from OSH after labs showing leukocytosis and INOCENCIA with imaging showing developing SBO, hydronephrosis and potential developmentof intraabdominal abscess. Received a Nutrition Consult for Assessment Assess for malnutrition, possible need for TPN. Past History Past Medical History Past Medical History: Diagnosis Date Colon cancer Past Surgical History Past Surgical History: Procedure Laterality Date SIGMOIDOSCOPY W/ BX N/A 06/25/2024 Laterality: N/A; Surgeon: Hilary Lewis MD; [place] [facility] [place]RAIN[place] BY CATHETER PERITONEAL/RETROPERITONEAL PERCUTANEOUS W/ IMAGING GUIDANCE Right 05/07/2024 Laterality: Right; Surgeon: Catherine Delatorre II, MD; Location: [facility] INTERVENTIONAL RADIOLOGY (CT) DRAINAGE BY CATHETER PERITONEAL/RETROPERITONEAL PERCUTANEOUS W/ IMAGING GUIDANCE N/A 04/30/2024 Laterality: N/A; Surgeon: Catherine Delatorre II, MD; Location: [facility] INTERVENTIONAL RADIOLOGY (CT) COLECTOMY Nutrition History Pt seen at bedside this morning. He is awake and alert. NG tube in place. On room air. Getting LR at 125 ml/hr. Pt states his appetite has been pretty good the past few weeks / months. Last PO intakewas Wednesday 10/10 at noon. On most days, he has 2 eggs and toast at breakfast. Lunch and supper varydepending on what is available but he does consistently eat three meals per day. He is unsure of any weight changes - when informing him of the current weight on file (108 lbs) he states that that his very low for him. Previously had weighed in at 111 lbs and was worried then. He has no trouble chewing / swallowing. No known food allergies or intolerances. Discussed nutrition POC including NPO for now with diet / TF advancement pending MD recommendations. If prolonged NPO status anticipated, would recommend TPN. Per H&P He has tried to keep up with his nutrition but endorses that he has lost weight recently. Current Diet Orders Procedures DIET NPO with meds Standing Status: Standing Number of Occurrences: 1 Order Specific Question: NPO Meds: Answer: with meds Height/Weight Evaluation Ht: 5' 8/172.7 cm Wt: 108#/49.2 kg IBW: 154#/70 kg %IBW: 70% BMI: 16.48 kg/(m^2) Weight History: medical record suggests pt with 7 lb wt loss in 5-6 weeks (6% change), and 18 lb wtloss in 3 months (14% change) Wt Readings from Last 250 Encounters: 10/11/24 49.2 kg (108 lb 6.4 oz) 09/01/24 52.2 kg (115 lb) 06/25/24 57.2 kg (126 lb 3.2 oz) 06/22/24 55.3 kg (122 lb) 05/20/24 55.3 kg (122 lb) 05/12/24 52.3 kg (115 lb 6.4 oz) 05/03/24 52.9 kg (116 lb 11.2 oz) Tmax: 36.9 BP: 140/88 Pulse (Heart Rate): 81 Oxygen Therapy: room air Intake/Output: 1147.4/90 Net +1.0L since admission Meds reviewed: tylenol, heparin, zosyn, lokelma, vanc Continuous: LR at 125 ml/hr Labs Reviewed: WBC/Hgb/Hct/Plts: 20.89/10.1/31.5/557 (10/12 139) Na/K+/Phos/Mg/Ca: 139/5.6/6.1/2.3/9.5 (10/12 139) Bun/Creat/Cl/CO2/Glucose: 60/3.01/99/25/112 (10/12 139) PE: Resp: no SOB GI: BM x 1 so far today; NG tube in place (250 ml output so far today) Skin: Elder Score: 21 Extremities: no edema Nutrition Focused Physical Exam: Nutrition Focused Physical Exam Completed?: completed Subcutaneous Fat Loss: Orbital Region (Orbital Fat Pads): moderate Cheek Region (Buccal Fat Pads): moderate Upper Arm Region (Triceps): severe Thoracic and Lumbar Region (Ribs, Lower Back, Midaxillary Line): deferred Muscle Wasting: [place] Region (Temporalis Muscle): severe Clavicle Bone Region (Pectoralis Major, Trapezius Muscles): severe Shoulder and Acromion Process Region (Deltoid Muscle): severe Dorsal Hand (Interosseous Muscle): moderate Scapular Bone Region (Trapezius, Supraspinatus, Infraspinatus Muscles): deferred Anterior Thigh and Patellar Region (Quadriceps Muscles): severe Posterior Calf Region (Gastrocnemius Muscle): severe Estimated Nutrition Needs Wt used: 49.2 kg - CBW EEN (kcal/d): 6377-8840 (30-35kcal/kg CBW) EPN (g pro/d): 59-73 (1.2-1.5g/kg CBW) EFN (ml/d): 1476 (30 ml/kg CBW) Assessment Malnutrition Statement Does the patient meet criteria for malnutrition: Yes Etiology of Malnutrition: Chronic Illness Malnutrition Severity: Severe Protein-Calorie Malnutrition (POA) as evidenced by clinical characteristics: Weight Loss: > 7.5% in 3 months Subcutaneous Fat Loss: Moderate Muscle Mass Loss: Severe *Based on The Academy and ASPEN Indicators to Diagnose Malnutrition (AAIM) criteria (2012) Toshia Galan RD, LD, CNSCPager: #[phone] * Nursing Notes - Lakia Dominguez RN - 10/11/2024 11:23 PM EST On admission to [facility] room [address], from outside facility Pt. Arrived via private transportation A&Ox3 denies pain, chest pain, or SOB. Pt. VS are WDL, and a dual RN initial assessment of skin condition was performed by Lakia Dominguez RN and Mele Vo RN. Skin Assessment: Skin within defined limits:Yes Elder Score: 21 LDA Added:Yes Lakia Dominguez RN documented in this encounterU [facility]* Nursing Notes - Susie Fuentes RN - 10/18/2024 11:45 AM EST 10/18/24 1144 Referral Information Arrived From emergency department;another healthcare institution, not defined Final Discharge Planning Discharge Disposition Home Services at Discharge Wound/drain/line/ostomy-supplies;Outpatient clinical services (ie: lab draws,transfusions, injectables) CM/SW AVS Portion Completed Yes Plan Plan Home today, 30 day monitor ordered, OP Urology and OP Cardiology Patient/Family In Agreement With Plan yes Transport Request Mode of Transfer Private [facility] PCRM Discharge Note Patient discussed in medical rounds for discharge to home today. PCRM met with the patient/family/spouse to discuss final discharge plan. Services for Discharge Pt doesn't have insurance; to complete neph tube dressing changes. They are aware of recommendation for 30 day event monitor due to sinus bradycardia during admission. They are aware of costs and wish to follow up with cardiology closer to home, referral sent. Consults with Final Discharge Recommendations Nephrology- signed off, renal function improving Radiology- IR placed bilateral nephrostomy tubes, no flushing needed, follow up case request for exchange placed Urology- OP follow up arranged Lines/Tubes/Drains/Wounds/Supplies Bilateral Neph tubes- bedside RN to give supplies for dressing changes, to complete Colostomy- had prior to admission Port- had prior to admission, follows in [place] for chemo/radiology Medications No barriers anticipated in obtaining discharge medications. No prior authorizations anticipated. Reconciliation of medications to be completed by the medical team. Pt to discharge on po augmentin; no other concerns for high cost meds Durable Medical Equipment Event monitor- company will call the patient to verify address prior to shipping event monitor. Pt is aware and agreeable to out of pocket costs at this time. Choice Was Patient Choice Provided: N/A Transportation Transportation will be provided by [facility]. Education Discharge education provided by the medical team and updated in the After Visit Summary. Bedside RN to provide neph tube dressing supplies for discharge and review care. Follow Up(s) Any follow up requested by the medical team arranged. Appointments in the After Visit Summary. Future Appointments Provider Department Center 10/22/2024 2:20 PM Greg Farooq Mason [facility] [place] Arrive at: Arrive to 2nd Floor, Registration [address] EEI 10/29/2024 11:30 AM Hilary Lewis [facility] Outpatient [facility] [place] Arrive at: Arrive to 1st Floor Registration KATYA Oropeza Cardiology Follow up Referral was placed to follow up with your heart monitor results. ACO Patient: No Was Ambulatory PCRM added to the Care Team? No- No outpatient PCRM for this physician The PCRM has updated the patient's nurse Brittani Rowe regarding the final discharge plan. Risk of Readmission: 8.5 Category Reference: Low: 0% - 5% Medium - Low: 5.1% - 10% Medium - High: 10.1% - 16% High: 16.1% - 100% Readmission Risk Interventions Documented: Yes No other discharge needs have been identified at this time. This plan was developed in collaboration with the patient and caregiver/preferred decision maker. Patient and family are in agreement with final discharge plan. Please refer to AVS and medical record for additional information. Patient instructed to call with questions. PCRM will continue to follow with medical team for any additional discharge planning needs. DAVID Moreno Colorectal Surgery [phone] If any changes to this individualized plan of care during evening and weekend hours and assistance is needed, please page the network operations specialist PCRM at [phone]. [place]2024 Plan of care note* Plan of Care - Flory Perez MD - 10/18/2024 1:12 AM EST Colorectal Surgery Plan of Care Note - Paged about an episode of urinary incontinence despite having bilateral nephrostomy tubes - Evaluated patient at bedside - patient denies any pain, urine leakage was clear yellow urine, nephrostomy bags with clear yellow urine on L and slightly pink tinged on R (unchanged from prior exam). Neph tube insertion sites with dressing c/d/I, no tenderness to palpation. Abdomen soft, non-tender. Ostomy in LLQ with stool in ostomy bag. VSS. - Will continue to monitor Flory Perez MD General Surgery PGY-1 #[id number] [place] Work Phone: 1(293) 962-639712-30-2024 Nurse Note* Nursing Notes - Yesy Barrios RN - 10/18/2024 12:32 AM EST Paged Flory Perez MD @ 0030 RE: Tim [id number]: Please call [phone] regarding pt's recent urine incontinence. Thanks, Yesy Call back received: MD to come to bedside. MD at bedside @ 0100 [place]12-29-2024 History of Present illness Narrative* Julito Cage MD - 10/17/2024 9:20 AM EST Colorectal Surgery Daily Progress Note Att[facility]: [facility] Length of Stay: 6 CC: Elevated WBC, INOCENCIA, Abscess on CT A/P, direct transfer from OSH Subjective/Interval events: No vtach Feels well No palpitations Hgb 6.4 Patient evaluated with Opal at bedside this morning and without complaints denies pain, nausea, vomiting. Colostomy productive, no abdominal pain. Denies CP, SOB. O:Temp: [98.3 F (36.8 C)-98.9 F (37.2 C)] 98.9 F (37.2 C) Pulse (Heart Rate): [40-58] 51 Resp Rate: [14-19] 14 BP: (121-153)/(58-75) 136/74 O2 Sat (%): [95 %-99 %] 97 % PE: General: NAD, lying in bed Pulm: Respirations easy and non labored Abd: soft, mildly tender, non-distended. Ostomy in LLQ, midline incision well-healed. : There are bilateral nephrostomy tubes present, R slightly pink, L yellow urine in pouches Extremities: no cyanosis, warm, well-perfused Labs: WBC/Hgb/Hct/Plts: 12.75/7.4/24.1/297 (10/16 128) Bun/Creat/Cl/CO2/Glucose: 25/1.87/104/30/109 (10/16 128) Na/K+/Phos/Mg/Ca: 140/3.1/1.7/1.8/-- (10/16 128) A/P: Andrew Posada is a 58 y.o. male w/ PMHx of colonic adenocarcinoma s/p chemoradiation (07/12-08/17/24) and LAR c/b dehiscence and rectal stump abscess s/p end colostomy and IR drainage (04/2024) admitted for leukocytosis, INOCENCIA and possible SBO who is now s/p IR bilateral nephrostomy tube placement (10/12). X1 prbc Observe EP notes appreciated, 30d tele follow-up Colostomy productive 450 (1.1); tolerating diet - Patient to follow up in colorectal clinic on 10/29/2023 w/labs; plan for EUA thereafter Status post b/l nephrostomy tube placement (10/12). Na wnl at 140 (151) Urination adequate. Crea continues to improve at 1.87 (2.49). - Continue low sodium diet - Continue PO augmentin; plan to dc for 14d course - Urology signed off; patient to FU as OP 8 beat run of VT on tele ovn; K 3.1. HR low of 38. Patient continues to be normotensive and otherwise asymptomatic. - Continue tele, pulse ox - fu PM K - fu EP recs - fu echo Acute pain Continue multimodal pain regimen. Oxycodone prn Complexity. Hypokalemia - Continue to monitor and replete. Hypocalcemia - Continue to monitor and replete. Underweight, Body mass index is 16.48 kg/m . - Monitor weight. Follow up with PCP. Malnutrition - Severe Protein-Calorie Malnutrition (POA) (10/12/2024 12:20 PM) secondary to Chronic Illness (10/12/2024 12:20 PM) - Reviewed and agree with registered veterinary technician's recommendations. Any conditions listed below are present on admission unless otherwise specified. . Diet: DIET CARDIAC - VERY LOW SODIUM Low Fiber; No Carbonated Beverages DVT prophylaxis: SQH/Lovenox, Ambulate daily, SCD's. Cisneros: none Lines: PIV Code status: Full Level of care: Med Surg Planned Discharge date: pending surgical recovery Dispo- inpatient Patient seen with colorectal team, plan of care discussed, and they are in agreement. Julito Cage MD Colorectal Surgery Fellow, PGY-6 10/16/2024 * Wong Todd [facility] - 10/15/2024 3:19 PM EST Department of Pharmacy Renal Documentation Note Patient: Andrew [facility] Assessment and Plan: The patient is currently prescribed augmentin 875/125 q12h. The patient's most recent renal function markers include: Weight: Wt Readings from Last 1 Encounters: 10/11/24 49.2 kg (108 lb 6.4 oz) Estimated Creatinine Clearance: 23 mL/min (A) (by C-G formula based on SCr of 2.49 mg/dL (H)). Based on these values - The following adjustments have been made: Augmentin 500/125 q12h. I have modified the orders in [facility] to reflect the above plan.. Please contact with any questions, Name: Wong Todd RPH Phone: [phone] Date/Time: 10/15/2024 3:19 PM * Siria Lockett - 10/15/2024 2:46 PM EST Introduced self and role of the dot etcher apprentice to patient/family. Provided emotional and spiritual support and the patient/family responded by sharing their experience and discussed the following: Pt sleeping, at bedside. reports that they are doing ok and are getting everything they need. She reports that they have good support. Patient/family encouraged to request a dot etcher apprentice as needed. Chaplains are available in-house 24 hours a day and 7 days a week. For urgent matters in the Catherine,please page [phone]. If the request is not urgent, please enter a consult. Consults are responded to within 24 hours. Chaplain Siria Lockett, DDiv,MAHL, [facility] Senior Corporate Legal ManagerCatherine chin 12/05 On-Call Pager Catherine ([phone]) 10/15/24 1400 Clinical Encounter Type Visited With Family Visit Type Introduction Pastoral Time Spent 15 min Referral (Rounding) Spiritual Assessment Spiritual Observation Spirituality helpful Emotional Observation Coping well Support Observation Some support Interventions Provided Active listening;Supportive presence Facilitated Verbalization of feelings Statistical Machine Mechanic Education Statistical Machine Mechanic Service Available Yes Educated Family Plan of Care Continue Visiting PRN * Josh Smith [facility] - 10/15/2024 6:55 AM EST Department of Pharmacy Renal Documentation Note Patient: Andrew Posada Room/Bed: [address] [place] [address] Assessment and Plan: The patient is currently prescribed Zosyn 4.5g Q12H. The patient's most recent renal function markers include: Weight: Wt Readings from Last 1 Encounters: 10/11/24 49.2 kg (108 lb 6.4 oz) Estimated Creatinine Clearance: 23 mL/min (A) (by C-G formula based on SCr of 2.49 mg/dL (H)). and renal function is improving. Based on these values - The following adjustments have been made: Zosyn 4.5g Q8H. I have modified the orders in [facility] to reflect the above plan.. Please contact with any questions, Name: Josh Smith [facility] Phone: [phone] Date/Time: 10/15/2024 6:55 AM * Flory Gregory APRN-GARMENT TAG STRINGER - 10/14/2024 3:15 PM EST Interventional Radiology Progress Note: Procedure: Placement of bilateral nephrostomy tubes on 10/12/24 (Dr. Lebron) Subjective: Denies c/o. Lying in bed. Past Medical History: Diagnosis Date Colon cancer Allergies: No Known Allergies Objective: Blood pressure 139/63, pulse (!) 43, temperature 97.9 F (36.6 C), temperature source Oral, resp. rate 14, height 1.727 m (5' 8), weight 49.2 kg (108 lb 6.4 oz), SpO2 98%. Intake/Output Summary (Last 24 hours) at 10/14/2024 1539 Last data filed at 10/14/2024 1319 Gross per 24 hour Intake 4709.87 ml Output 2701 ml Net 2008.87 ml (24 hr Neph tube output: 860 ml right tube, 925 ml left tube) Exam: General: In no acute distress, alert and oriented Drains: Left nephrostomy tube to straight drain with clear, yellow colored urine in the bag; Right nephrostomy tube to straight drain with clear, yellow colored urine in the bag; dressing(s) dry and intact Laboratory: Lab Results Component Value Date/Time WBC 12.83 (H) 10/14/2024 03:51 AM PLATELET 365 (H) 10/14/2024 03:51 AM HGB 7.2 (L) 10/14/2024 03:51 AM GFR 24 (L) 10/14/2024 03:51 AM Lab Results Component Value Date/Time CREATSERUM 2.89 (H) 10/14/2024 03:51 AM CREATSERUM 2.80 (H) 10/13/2024 02:46 PM CREATSERUM 3.01 (H) 10/13/2024 04:11 AM Impression and Plan: Day 2 post bilateral nephrostomy tube placement for hydronephrosis, INOCENCIA. Denies complaints about the neph tube. Instructions regarding routine tube check/change and contact information has been entered in the AVS. Provided teaching regarding home care of neph tube (including how to schedule a routine check/change of the tube in 8-10 weeks) and symptoms that warrant going to the nearest ED vs. Call ing IR. Questions answered. We recommend routine tube care including the followin) No flushing is recommended. No stopcock should be placed on the tube. 2) Change the dressing at least QOD. Continue to trend creatinine. Next routine order placed for outpatient nephrostomy tube exchange. IR scheduling to arrange. We encourage the primary team to notify IR should we be of further assistance in the care of this patient. BETHANIE Henriquez 10/14/2024 3:39 PM Please send patient home with extra bags - these can be obtained from Distribution WD#[id number] Please send patient home with rx for all needed tube site care supplies. This includes split gauze 4x4 #30, Paper tape #3, refills #3. * Megan Winston MD - 10/14/2024 11:03 AM EST Nephrology Inpatient Follow up Note Reason for Consultation: INOCENCIA Subjective NGT in place. LR running. Bilateral nephrostomy tubes in place. Renal function improving. NGT to suction. Patient overall without complaints. No chest pains. No issues with his nephrostomy tubes. Impression: Andrew Posada is a 58 y.o. male with PMH significant for colonic adenocarcinoma s/p LAR in Venusc/b dehiscence requiring end colostomy and rectal stump abscess s/p IR drainage in April 2024 now after completion of chemotherapy and radiation presenting as direct admit from OSH after labs showing leukocytosis and INOCENCIA with imaging showing developing SBO, hydronephrosis and potential development of intraabdominal abscess. Nephrology was consulted for INOCENCIA management. Nephrology Problem List: Non-oliguric INOCENCIA Baseline Cr 0.7 Cr at consult: 3.06 UA with large LE, >20 WBCs, cloudy Etiology likely 2/2 severe [address]rosis on CT from OSH due to intra-abdominal abscess vs septic/ischemic ATN Azotemia but no uremia Severe protein malnutrition Leukocytosis 2/2 UTI vs abscess - gram negative on Culture Anemia Unclear etiology Recommendations: Continue IVF while patient is NPO Electrolytes are stable and renal function now at plateau Continue to monitor for post-obstructive diuresis Megan Winston MD [employer] of Clinical Medicine Division of Nephrology Objective: Physical Examination: BP 114/61 (BP Location: Left arm, BP Position: Lying) Pulse (!) 42 Temp 98.4 F (36.9 C) (Oral) Resp 18 Ht 1.727 m (5' 8) Wt 49.2 kg (108 lb 6.4 oz) SpO2 99% BMI 16.48 kg/m Smoking Status Never I/O last 3 completed shifts: In: 2894.2 [I.V.:2499.8; NG/GT:90; IV Piggyback:304.4] Out: 2936 [Urine:1785; Other:950] Constitutional: Alert and oriented and in no distress. Chest: Respiratory effort is normal. The lungs are clear without rales or rhonchi. Cardiovascular: Normal raten-tender, non-distended, +BS, no HSM, no rebound Extremities: Warm and well perfused. No peripheral edema Neurological: Oriented to person, place and time, no focal deficits appreciated : bilateral nephrostomy tubes Skin: No rash or excoriation Access: no dialysis access Current Facility-Administered Medications Medication Dose Route Frequency Provider Last Rate Last Admin Acetaminophen (TYLENOL) oral solution 975 mg 975 mg Oral TID Anselmo Lindsey MD Heparin injection 5,000 Units 5,000 Units Subcutaneous Q12H Kevan Jasso MD 5,000 Units at 10/14/24 0925 HYDROmorphone (DILAUDID) injection 0.2 mg 0.2 mg Intravenous Q3H PRN Kevan Jasso MD Or HYDROmorphone (DILAUDID) injection 0.5 mg 0.5 mg Intravenous Q3H PRN Kevan Jasso MD Lactated ringers IV solution Intravenous Continuous Kevan Jasso MD 125 mL/hr at 10/14/24 0356 New Bag at 10/14/24 0356 Lidocaine 2 % injection 0-400 mg 0-20 mL Infiltration As directed PRN Miguel A Holloway MD 10 mg at 10/12/24 1846 Melatonin tablet 6 mg 6 mg Oral QHS PRN Kevan Jasso MD Ondansetron (ZOFRAN) tablet 4 mg 4 mg Oral Q6H PRN Kevan Jasso MD Or Ondansetron 4mg/2ml (ZOFRAN) injection 4 mg 4 mg Intravenous Q6H PRN Kevan Jasso MD 4 mg at 10/12/24 0901 oxyCODONE (ROXICODONE) oral solution 5 mg 5 mg Per NG tube Q4H PRN Anselmo Lindsey MD Or oxyCODONE (ROXICODONE) oral solution 10 mg 10 mg Per NG tube Q4H PRN Anselmo Lindsey MD Pantoprazole (PROTONIX) injection 40 mg 40 mg Intravenous Q12H Anselmo Lindsey MD 40 mg at 925 Phenol (CHLORASEPTIC) 1.4 % oral spray 2 spray 2 spray Mouth/Throat PRN Anselmo Lindsey MD Piperacillin-tazobactam (ZOSYN) 4.5 g in dextrose premix IVPB 4.5 g Intravenous Q12H Katrina Jamil,RPH 25 mL/hr at 10/14/24 0934 4.5 g at 10/14/24 0934 Prochlorperazine (COMPAZINE) tablet 5 mg 5 mg Oral Q6H PRN Kevan Jasso MD Or Prochlorperazine (COMPAZINE) injection 5 mg 5 mg Intravenous Q6H PRN Kevan Jasso MD Sodium chloride 0.9% IV solution 250 mL 250 mL Intravenous PRN Kevan Jasso MD Relevent Data: Lab Results Component Value Date SODIUM 145 10/14/2024 POTASSIUM 3.7 10/14/2024 CHLORIDE 104 10/14/2024 CO2 28 10/14/2024 BUN 47 (H) 10/14/2024 CREATSERUM 2.89 (H) 10/14/2024 GLUCOSE 68 (L) 10/14/2024 Lab Results Component Value Date WBC 12.83 (H) 10/14/2024 HGB 7.2 (L) 10/14/2024 HCT 23.3 (L) 10/14/2024 PLATELET 365 (H) 10/14/2024 MCV 96.3 (H) 10/14/2024 Lab Results Component Value Date CREATSERUM 2.89 (H) 10/14/2024 CREATSERUM 2.80 (H) 10/13/2024 CREATSERUM 3.01 (H) 10/13/2024 * AUGUSTO Shi - 10/14/2024 10:41 AM ESTSummarphilippe: LAUREN Full PSA Psychosocial Assessment Per chart review, patient is a 58 y.o., male, who was admitted for presenting for bilateral nephrostomy tube placement with history of bilateral obstructive uropathy. SW met with patient to introduce self, explain sr. social media & mobile manager role during inpatient stay, and answerquestions. Patient was alert and oriented x3 and agreeable to SW visit. Spouse - Opal - was also in the room during this assessment. Contact Information: Supervisor Type Disk Quality Control Name: See chart Supervisor Type Disk Quality Control's Phone Number: See chart Social Work Contact Name: Zully Aburto Piledriver Carpenter's Advance Directive Discussion: Patient does not have any advance directives on file. SW inquired whether or not patient is interested in completing health care power of divorce attorney and/or living will paperwork during this visit. SW reviewed the documents, discussed the benefits of completing them, and provided education re: Legal NOK (LNOK). Patient declined interest in completing the documents at this time. Legal NOK: Spouse, Opal Keller, ph: [phone] Patient also lives at home with 4/8 of his adult children. Emotional/Psychological: Mood: congruent to situation Current Interpersonal Conduct/Behavior: appropriate to situation Mental Health Conditions/Symptoms: denies, none Previous Mental Health Treatment: none Distress Screen: In general, would you say your health is:: (Patient declined.) Patient Coping/Stress Concerns: Patient Coping/Stress Concerns: No Patient Personal Strengths: able to adapt, venus/spirituality, positive attitude, resilient, strongsupport system Sources Of Support: adult child(brian), spouse, community support Reaction To Health Status: accepting Understanding Of Condition And Treatment: adequate understanding of medical condition Living Environment: Lives With: child(brian), adult, spouse Living Arrangement and Set Up: house Caregiver Coping/Stress Concerns: Caregiver Coping/Stress Concerns: No Reaction To Health Status: accepting Employment/Financial: Employed?: Yes Employment Details: 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 Employment/Financial Concerns: no Employment/Insurance Comments: Patient and spouse reported they are well supported by the [employer] community in which they live. Source Of Income: salary/wages Food Insecurity: Within the past 12 months, you worried that your food would run out before you got the money to buymore.: Never true Within the past 12 months, the food you bought just didn't last and you didn't have money to get more.: Never true Housing Stability: In the last 12 months, was there a time when you were not able to pay the mortgage or rent on time?: No Utilities: In the past 12 months has the electric, gas, oil, or water [employer] threatened to shut off services in your home?: No Transportation Needs: In the past 12 months, has lack of transportation kept you from medical appointments or from getting medications?: No In the past 12 months, has lack of transportation kept you from meetings, work, or from getting things needed for daily living?: No Alcohol Use: Q1: How often do you have a drink containing alcohol?: Never Q2: How many drinks containing alcohol do you have on a typical day when you are drinking?: Patientdoes not drink Q3: How often do you have six or more drinks on one occasion?: Never Substance Use: How many times in the past year have you used illegal drugs?: Never Intimate Partner Violence: Within the last year, have you been afraid of your partner or ex-partner?: Patient unable to answer Within the last year, have you been humiliated or emotionally abused in other ways by your partner or ex-partner?: Patient unable to answer Within the last year, have you been kicked, hit, slapped, or otherwise physically hurt by your partner or ex-partner?: Patient unable to answer Within the last year, have you been raped or forced to have any kind of sexual activity by your partner or ex-partner?: Patient unable to answer Community Resources: None requested and no needs identified. Anticipated Discharge Plan: Anticipated Discharge Plan: Home Medical Team Considerations: N/A SW Interventions/Recommendations: SW gave anticipatory guidance about how to contact SW. SW will continue to remain available to provide assistance and support as needed. AUGUSTO shi (they/she) P Piledriver Carpenter * Julito Cage MD - 10/13/2024 10:56 AM EST Colorectal Surgery Daily Progress Note Attending: Hilary Lewis MD (Dr. Concepcionior coverage) Length of Stay: 2 CC: Elevated WBC, INOCENCIA, Abscess on CT A/P, direct transfer from OSH Subjective/Interval events: Feels well No bloating No nausea or emesis after tube insertion No fevers or chills O:BP 139/79 (BP Location: Right arm, BP Position: Sitting) Pulse 75 Temp 98 F (36.7 C) (Oral) Resp 14 Ht 1.727 m (5' 8) Wt 49.2 kg (108 lb 6.4 oz) SpO2 98% BMI 16.48 kg/m Smoking Status Never 10/12 700 - 10/13 659 In: 1441.2 [I.V.:1441.2] Out: 2119 [Urine:1070] PE: General: NAD, lying in bed Pulm: Respirations easy and non labored Abd: soft, mildly tender, non-distended. Ostomy in LLQ, midline incision well- healed. Curtis like stool & gas present in ostomy bag. Ngt with clear material Extremities: no cyanosis, warm, well-perfused Labs: WBC/Hgb/Hct/Plts: 17.22/7.9/25.5/437 (10/13 411) Bun/Creat/Cl/CO2/Glucose: 53/3.01/105/26/89 (10/13 411) Na/K+/Phos/Mg/Ca: 142/4.0/4.5/2.1/-- (10/13 411) A/P: Andrew Posada is a 58 y.o. male past medical history of colonic adenocarcinoma s/p LAR in Venus c/b dehiscence requiring end colostomy and rectal stump abscess s/p IR drainage in April 2024 now after completion of chemotherapy and radiation presenting as direct admit from OSH after labs showing leukocytosis and INOCENCIA with imaging showing developing SBO, hydronephrosis and potential development ofintraabdominal abscess. Today's Plan - gastrograffin challenge -narrow to zosyn, fu urine culture -nephrology consult -pm electrolytes, watch for post-obstructive diuresis -x1 albumin Acute pain Continue multimodal pain regimen. Oxycodone prn Complexity. Underweight, Body mass index is 16.48 kg/m . - Monitor weight. Follow up with PCP. Malnutrition - Severe Protein-Calorie Malnutrition (POA) (10/12/2024 12:20 PM) secondary to Chronic Illness (10/12/2024 12:20 PM) - Reviewed and agree with registered veterinary technician's recommendations. Any conditions listed below are present on admission unless otherwise specified. . Diet: DIET NPO with meds DVT prophylaxis: SQH/Lovenox, Ambulate daily, SCD's. Cisneros: none Lines: PIV Code status: Full Level of care: Med Surg Planned Discharge date: pending surgical recovery Dispo- inpatient Patient seen with colorectal team, plan of care discussed, and they are in agreement. Julito Cage MD General Surgery Associated attestation - Carmelina Sanders DO - 10/13/2024 3:45 PM EST Attending Physician Note (GE) I reviewed this case with the resident. The patient presents with a diagnosis of rectal cancer withpSBO. The treatment plan is bowel rest, decompression. Based on the history and exam, I agree with the medical decision making with the following comment(s): none. Abdomen soft, gas and stool in bag, NG output with clearing and blood clots. Reassess for possible NG clamp trial tomorrow, monitor Cr for improvement, good output from neph tubes Carmelina Sanders DO, FACS, FASCRS, MS Radar Repairer Pediatric and Adult Colorectal Surgery * Nuria Carey, PT - 10/13/2024 8:58 AM EST Acute Physical Therapy Evaluation Prior Gross Functional Mobility: independent Current AM-PAC score(s): CURRENT AM-PAC Mobility Raw Score: 18 Based on the above AM-PAC score(s) and PT clinical judgment, patient is a good candidate for discharge to Home (with initial family support) Barriers to discharge home: None Mobility equipment available at home: none used ADL equipment available at home: none Equipment needed for discharge: none Current therapy frequency recommendation in acute: PT Therapy Frequency: 4 times a week Activity Recommendations for outside of rehab session: 10/13: ambulate with 1 person assist Precautions and Weightbearing Status: Existing Precautions/Restrictions: fall Telemetry (NGT, bilat neph tubes) Patient Safety Communication Prior to Visit: Nursing Subjective: The pt was supine upon arrival and was agreeable to working with PT Pain: General Pain Documentation (Adult, OB, Peds) Presence of Pain: reports pain/discomfort Pain Location: abdomen DVPRS (Defense and Veterans Pain Rating Scale) DVPRS: Rest: 3- mild pain DVPRS: Activity: 3- mild pain Home Setting Residence: House (2 story + basement) Lives With: spouse, children (adult) (4 children) Patient receives help from : none First floor setup: bedroom, tub shower Second floor setup: (no need to access) Number of stairs to enter home: 3-6 Number of stairs in home: flight to basement and second floor Mobility Equipment Available: none used ADL Equipment Available: none Home Environment Details: The pt stated laundry is in the basement and the childrens rooms are upstairs Previous Level of Function Gross Functional Mobility: independent Assistive Device: none used Prior level ADL Overview: Independent with all ADLs Bed Mobility: independent Transfers: independent Stairs: independent Ambulation: independent with all needs Objective/Observation: Vitals/Vitals Responses to Treatment: no adverse response during therapy session O2 Device: room air Cognition Overall Cognitive Status: Within Functional Limits Arousal/Alertness: Appropriate responses to stimuli Orientation Level: Oriented X4 Following Commands: Follows all commands and directions without difficulty Safety Judgment: Good awareness of safety precautions Vision Screen Currently wearing corrective lenses: Reading only Speech Speech: no gross deficits noted Successful Methods (Communication Strategies): verbal speech Hearing Hearing: no gross deficits noted Extremity Assessments: RLE Assessment RLE Assessment: Within Functional Limits LLE Assessment LLE Assessment: Within Functional Limits Sensation Overall Sensation: Intact Mobility Assessment: Supine to Sit Mobility Randall Level: Supine->Sit: stand-by assist Bed Features/Set-up: Supine->Sit: Head of bed elevated, Use of bed rail Skilled Rationale: Verbal cues, Positioning Skilled Intervention/Details: Supine->Sit: pt cued on logroll to the right Sit to Supine Mobility Randall Level: Sit->Supine: stand-by assist Bed Features/Set-up: Sit->Supine: Head of bed elevated Skilled Rationale: Verbal cues, Positioning Balance: Sitting Balance Static Sitting-Level of Assistance: Independent Dynamic Sitting-Level of Assistance: Supervision Standing Balance Static Standing-Level of Assistance: Stand-by assist Dynamic Standing-Level of Assistance: Stand-by assist Standing-Balance Support: Gait belt Skilled Rationale: Verbal cues, Full extension to upright positioning/posture Transfer Assessment: Sit to Stand Transfer Randall Level: Sit->Stand: stand-by assist Assistive Device: Sit->Stand: gait belt Skilled Rationale: Verbal cues, Full extension to upright positioning/posture Skilled Intervention/Details: Sit->Stand: The pt stood 1x from EOB Stand to Sit Transfer Randall Level: Stand->Sit: stand-by assist Assistive Device: Stand->Sit: gait belt Skilled Rationale: Verbal cues, Controlled descent for sitting Skilled Intervention/Details: Stand->Sit: pt with good eccentric control Gait/Functional Mobility: Gait Assessment Randall Level: Gait: stand-by assist Assistive Device: Gait: gait belt (unilateral UE support on the IV pole) Ambulation Distance (Feet): 100 Gait Deviations Identified: decreased bran, decreased gait speed Gait Skilled Rationale: verbal, upright posture Skilled Intervention/Details - Gait: The pt trialed ~10' without UE support and required contact guard to min A due to postural sway and LOB. With unilateral UE support, the pt progressed to SBA Stairs: Outcome Score(s): CURRENT [facility] Basic Mobility Inpatient Short Form Turning over in bed: 3 - A Little Assistance Moving from lying on back to sittin - A Little Assistance Moving to and from bed to chair: 3 - A Little Assistance Sitting/standing from chair: 3 - A Little Assistance Walk in hospital room: 3 - A Little Assistance Climbing 3-5 steps with a railin - A Little Assistance CURRENT [facility] Mobility Raw Score: 18 CURRENT [facility] Mobility Functional Limitation: 46.58% Impaired in Basic Mobility Interventions: Assessment & Plan: Patient has a history of colon adenocarcinoma s/p LAR in March 2024 in Venus c/b dehiscence requiring end colostomy and rectal stump abscess s/p IR drainage in April 2024 s/p chemoradiation. The pt presents with INOCENCIA and concern for SBO and seen for therapy evaluation related to deconditioning from new abscess. Exam findings include impairments in: Balance, Pain, Transfers, Gait/Locomotion, Aerobic capacity/endurance. These impairments contribute to functional limitations including Decreased functional mobility. Current clinical presentation is Evolving - changing/inconsistent clinical characteristics (Moderate). Patient history factors impacting Plan Of Care include PMH. Patient will benefit from skilled physical therapy to address these impairments, functional limitations, and participation restrictions and has good rehab potential to achieve therapy goals. Planned Therapy Interventions: balance training, bed mobility training, endurance, functional activity tolerance, gait training, transfer training Patient Instruction/Education this session: Learners: Patient Education provided: Role of this discipline, Plan of care (to ambulate 3x/day with nursing staff) Teaching method: Verbal Education/Instruction Learner response: Applies knowledge Learning preferences: Auditory Learning considerations: No barriers/ready to learn Plan for next session: progress gait distance and trial stairs Acute PT Goals Plan of Care by Nuria Carey PT at 10/13/2024 8:58 AM Version 1 of 1 Problem: PT - General Goals Goal: Supine <-> Sit Transfers - Patient will perform supine to/from sit transfers with independence and without use of hospital bed features in order to improve functional mobility and safety. Outcome: Ongoing Goal: Sit <-> Stand Transfers - Patient will perform sit to/from stand transfers with independence and without an assistive device in order to improve functional mobility and safety. Outcome: Ongoing Goal: Ambulation - Patient will ambulate 500 feet with independence and without an assistive deviceto improve ability to safely navigate home and community. Outcome: Ongoing Goal: Stairs - Patient will ascend/descend 12 stairs with independence, without an assistive device, and railing(s) to improve ability to safely navigate home and community. Outcome: Ongoing PT treatment consisted of the following to progress towards the above goal(s): PT Evaluation and Treatment Time PT Evaluation (Moderate) Time Entry: 17 Evaluating Therapist: Nuria Carey PT Additional Details: PT Co-Eval/Treatment Information Co-evaluation/co-treatment performed?: No simultaneous skilled care performed Evaluation Complexity Components History: Moderate (1-2 personal factors and/or comorbidities) Body Systems Review: Moderate (Addressing a total of 3 or more elements) Clinical Presentation: Evolving - changing/inconsistent clinical characteristics (Moderate) Clinical Decision Making Complexity: Moderate Time In: 0858 Time Out: 15 Total Visit Time: 17 minutes Total Treatment Time (skilled, billable minutes): 17 minutes PPE used during patient interaction: gloves Patient location at end of session: bed with head of bed elevated Alarms on at end of session: none altered (pt's spouse present) Needs in reach. Upon discontinuation of Acute Care Physical Therapy Services or patient discharge from the hospitalthis note represents the current Physical Therapy Discharge Summary. * Toshia Galan, RD - 10/12/2024 11:13 AM EST NUTRITION CONSULT Nutrition Recommendations and Plan of Care: 1. Diet advancement as able pending improvement bowel obstruction 2. Will send oral nutrition supplements pending diet order: Ensure Clear (240 kcal, 8 g pro) TID with meals when on CLD Ensure Plus (350 kcal, 13 g pro) TID with meals when FLD/Regular diet. 3. Bowel regimen per primary team 4. If tube feeds become part of plan of care, recommend Nepro at 40 ml/hr (1728 kcal, 78 g pro) 5. If unable to enterally feed in the next 48-72 hours, would consider initiation of TPN in the setting of prolonged NPO status / severe protein calorie malnutrition 6. RD will continue to follow Per HPI: Andrew Posada is a 58 y.o. male with a history of colonic adenocarcinoma s/p LAR in [place] c/b dehiscence requiring end colostomy and rectal stump abscess s/p IR drainage in April 2024 now after completion of chemotherapy and radiation presenting as direct admit from OSH after labs showing leukocytosis and INOCENCIA with imaging showing developing SBO, hydronephrosis and potential developmentof intraabdominal abscess. Received a Nutrition Consult for Assessment Assess for malnutrition, possible need for TPN. Past History Past Medical History: Diagnosis Date Colon cancer Past Surgical History: Procedure Laterality Date SIGMOIDOSCOPY W/ BX N/A 06/25/2024 Laterality: N/A; Surgeon: Hilary Lewis MD; Location: [facility] PERIOP DRAINAGE BY CATHETER PERITONEAL/RETROPERITONEAL PERCUTANEOUS W/ IMAGING GUIDANCE Right 05/07/2024 Laterality: Right; Surgeon: Catherine Delatorre II, MD; Location: [facility] INTERVENTIONAL RADIOLOGY (CT) DRAINAGE BY CATHETER PERITONEAL/RETROPERITONEAL PERCUTANEOUS W/ IMAGING GUIDANCE N/A 04/30/2024 Laterality: N/A; Surgeon: Catherine Delatorre II, MD; Location: [facility] INTERVENTIONAL RADIOLOGY (CT) COLECTOMY Nutrition History Pt seen at bedside this morning. He is awake and alert. NG tube in place. On room air. Getting LR at 125 ml/hr. Pt states his appetite has been pretty good the past few weeks / months. Last PO intakewas Wednesday 10/10 at noon. On most days, he has 2 eggs and toast at breakfast. Lunch and supper varydepending on what is available but he does consistently eat three meals per day. He is unsure of any weight changes - when informing him of the current weight on file (108 lbs) he states that that his very low for him. Previously had weighed in at 111 lbs and was worried then. He has no trouble chewing / swallowing. No known food allergies or intolerances. Discussed nutrition POC including NPO for now with diet / TF advancement pending MD recommendations. If prolonged NPO status anticipated, would recommend TPN. Per H&P He has tried to keep up with his nutrition but endorses that he has lost weight recently. Current Diet Orders Procedures DIET NPO with meds Standing Status: Standing Number of Occurrences: 1 Order Specific Question: NPO Meds: Answer: with meds Height/Weight Evaluation Ht: 5' 8/172.7 cm Wt: 108#/49.2 kg IBW: 154#/70 kg %IBW: 70% BMI: 16.48 kg/(m^2) Weight History: medical record suggests pt with 7 lb wt loss in 5-6 weeks (6% change), and 18 lb wtloss in 3 months (14% change) Wt Readings from Last 250 Encounters: 10/11/24 49.2 kg (108 lb 6.4 oz) 09/01/24 52.2 kg (115 lb) 06/25/24 57.2 kg (126 lb 3.2 oz) 06/22/24 55.3 kg (122 lb) 05/20/24 55.3 kg (122 lb) 05/12/24 52.3 kg (115 lb 6.4 oz) 05/03/24 52.9 kg (116 lb 11.2 oz) Tmax: 36.9 BP: 140/88 Pulse (Heart Rate): 81 Oxygen Therapy: room air Intake/Output: 1147.4/90 Net +1.0L since admission Meds reviewed: tylenol, heparin, zosyn, lokelma, vanc Continuous: LR at 125 ml/hr Labs Reviewed: WBC/Hgb/Hct/Plts: 20.89/10.1/31.5/557 (10/12 139) Na/K+/Phos/Mg/Ca: 139/5.6/6.1/2.3/9.5 (10/12 139) Bun/Creat/Cl/CO2/Glucose: 60/3.01/99/25/112 (10/12 139) PE: Resp: no SOB GI: BM x 1 so far today; NG tube in place (250 ml output so far today) Skin: Elder Score: 21 Extremities: no edema Nutrition Focused Physical Exam: Nutrition Focused Physical Exam Completed?: completed Subcutaneous Fat Loss: Orbital Region (Orbital Fat Pads): moderate Cheek Region (Buccal Fat Pads): moderate Upper Arm Region (Triceps): severe Thoracic and Lumbar Region (Ribs, Lower Back, Midaxillary Line): deferred Muscle Wasting: [place] Region (Temporalis Muscle): severe Clavicle Bone Region (Pectoralis Major, Trapezius Muscles): severe Shoulder and Acromion Process Region (Deltoid Muscle): severe Dorsal Hand (Interosseous Muscle): moderate Scapular Bone Region (Trapezius, Supraspinatus, Infraspinatus Muscles): deferred Anterior Thigh and Patellar Region (Quadriceps Muscles): severe Posterior Calf Region (Gastrocnemius Muscle): severe Estimated Nutrition Needs Wt used: 49.2 kg - CBW EEN (kcal/d): 7554-8491 (30-35kcal/kg CBW) EPN (g pro/d): 59-73 (1.2-1.5g/kg CBW) EFN (ml/d): 1476 (30 ml/kg CBW) Assessment Malnutrition Statement Does the patient meet criteria for malnutrition: Yes Etiology of Malnutrition: Chronic Illness Malnutrition Severity: Severe Protein-Calorie Malnutrition (POA) as evidenced by clinical characteristics: Weight Loss: > 7.5% in 3 months Subcutaneous Fat Loss: Moderate Muscle Mass Loss: Severe *Based on The Academy and ASPEN Indicators to Diagnose Malnutrition (AAIM) criteria (2012) Toshia Galan RD, LD, [facility] Pager: #[phone] * Katrina Jamil [facility] - 10/12/2024 10:49 AM EST Department of Pharmacy Renal Documentation Note Patient: Andrew Posada Room/Bed: [facility]/A Assessment and Plan: The patient is currently prescribed Vancomycin and Piperacillin-tazobactam. The patient's most recent renal function markers include: Weight: Wt Readings from Last 1 Encounters: 10/11/24 49.2 kg (108 lb 6.4 oz) Estimated Creatinine Clearance: 19 mL/min (A) (by C-G formula based on SCr of 3.01 mg/dL (H)). Based on these values - The following adjustments have been made: Piperacillin- tazobactam 4.5 g IV every 12 hours. Vancomycin 1g IV every 12 hours changed to every 1.25g IV every 48 hours . I have modified the orders in IHIS to reflect the above plan. Please contact with any questions, Name: Katrina Jamil [facility] Phone: [phone] Date/Time: 10/12/2024 10:49 AM * Anselmo Lindsey MD - 10/12/2024 10:08 AM EST Colorectal Surgery Daily Progress Note Attending: Hilary Lewis MD Length of Stay: 1 CC: Elevated WBC, INOCENCIA, Abscess on CT A/P, direct transfer from OSH Subjective/Interval events: Patient states pain is present, well-controlled. He endorse some nausea and several episodes of bilious emesis. Denies fevers or chills. INOCENCIA with sCR 3.01. O:BP 140/88 (BP Location: Left arm, BP Position: Lying) Pulse 81 Temp 97.8 F (36.6 C) (Oral) Resp 18 Ht 1.727 m (5' 8) Wt 49.2 kg (108 lb 6.4 oz) SpO2 96% BMI 16.48 kg/m Smoking Status Never 10/11 0700 - 10/12 0659 In: 1147.4 [I.V.:1105.5] Out: 90 [Urine:90] PE: General: NAD, lying in bed Pulm: Respirations easy and non labored Abd: soft, mildly tender, non-distended. Ostomy in LLQ, midline incision well- healed. Curtis like stool & gas present in ostomy bag. Extremities: no cyanosis, warm, well-perfused Labs: WBC/Hgb/Hct/Plts: 20.89/10.1/31.5/557 (10/12 139) Bun/Creat/Cl/CO2/Glucose: 60/3.01/99/25/112 (10/12 139) Na/K+/Phos/Mg/Ca: 139/5.6/6.1/2.3/9.5 (10/12 139) A/P: Andrew Posada is a 58 y.o. male past medical history of colonic adenocarcinoma s/p LAR in [place] c/b dehiscence requiring end colostomy and rectal stump abscess s/p IR drainage in April 2024 now after completion of chemotherapy and radiation presenting as direct admit from OSH after labs showing leukocytosis and INOCENCIA with imaging showing developing SBO, hydronephrosis and potential development ofintraabdominal abscess. Today's Plan - Place NGT to LIWS, lidocaine gel ordered for comfort during placement - NPO, mIVF at 125 ml/hr - Continue zosyn, start vancomycin - Nutrition consult, appreciate evaluation and recs concerning nutritional status, concern for possible TPN - [place] culture: UA, blood culture x2, sputum culture - PVRs x 2 - Consult IR for bilateral nephrostomy tubes, upon urology recommendation Acute pain Continue multimodal pain regimen. Oxycodone prn Complexity. Underweight, Body mass index is 16.48 kg/m . - Monitor weight. Follow up with PCP. Any conditions listed below are present on admission unless otherwise specified. . Diet: DIET NPO with meds DVT prophylaxis: SQH/Lovenox, Ambulate daily, SCD's. Cisneros: none Lines: PIV Code status: Full Level of care: Med Surg Planned Discharge date: pending surgical recovery Dispo- inpatient Patient seen with colorectal team, plan of care discussed, and they are in agreement. Anselmo Lindsey MD General Surgery PGY-1 * Cj G Matthew [facility] - 10/12/2024 12:23 AM EST Department of Pharmacy Outside Facility Transfer Note Patient: Andrew Posada Room/Bed: 18139/A Patient has transferred from the Emergency Department at [facility] . I have contacted the facility and confirmed the following antimicrobial, antiepileptic, and anticoagulant medications were received by the patient prior to arrival at [facility]: Antimicrobials: Ceftriaxone 1 g on 10/11 @ 1604 Zosyn 4.5 g on 10/11 @ 1358 Please feel free to contact me with any further questions. Name: Cj Jules Matthew Lisa Phone #: [phone] Date/Time: 10/12/2024 12:23 AM [facility]* Nursing Notes - Yesy Barrios RN - 10/17/2024 2:43 AM EST @ 4229 paged Kori Cuellar MD: Critical Hgb 6.4. Will need consent and type and cross. Thanks! called back @ 0300 and stated will come to bedside [place]12-28-2024 Nurse Note* Nursing Notes - Flory Pennington RN - 10/16/2024 5:53 PM EST @2525 paged Kori Cuellar MD- [phone]: Tim: FYI, L neph tube is now pink like his R neph tube. thanks! [phone] [place]12-28-2024 Consult note* Flip Montoya MD - 10/16/2024 8:52 AM ESTAssociated Order(s): IP CONSULT TO CARDIOLOGY - EP Cardiac Electrophysiology Consultation Patient Name: Andrew Posada Date of Consult: 10/16/2024 Reason for Consultation: Asymptomatic Sinus Bradycardia IMPRESSION & RECOMMENDATIONS: Andrew Posada is a 58 y.o. male who was seen by the EP Consult Service on 10/16/2024. We are asked to assist in management of asymptomatic sinus bradycardia IMPRESSION Bradycardia RECOMMENDATIONS Per the patient, the bradycardia is asymptomatic and has not been hemodynamically significant. Therefore, there is no indication for pacemaker at this time. We'll arrange 30d mobile cardiac telemetry to ensure his HR augments in the outpatient setting. Flip Montoya MD EP fellow [phone] This consult was discussed with Dr. Apodaca, EP attending physician. These recommendations are considered preliminary until cosigned by the attending. If you have any questions or need any further information, please feel free to contact the EP Consult Service. Thank you for allowing us to participate in the care of Andrew Posada. We will sign off at this time. HPI: Andrew Posada is a 43 y.o. male with a history of colon adenocarcinoma s/p lower anterior resection in [place] c/b dehiscence that resulted in end colostomy and rectal stump that became infected abscess requiring I&D in April 2024 and has since been on chemotherapy and radiation therapy. Over the past two days he has become progressively more bradycardic. We are consulted for evaluation. The patient denies any symptoms concerning for symptomatic bradycardia, including fatigue, presyncope, syncope, palpitations, decreased exercise tolerance or lethargy. PAST MEDICAL HISTORY: PAST MEDICAL HISTORY He has a past medical history of Colon cancer. SOCIAL HISTORY He reports that he has never smoked. He has never used smokeless tobacco. He reports that he does not currently use alcohol. He reports that he does not use drugs. FAMILY HISTORY His family history is not on file. He has no family status information on file. PAST SURGICAL HISTORY His has a past surgical history that includes colectomy; drainage by catheter peritoneal/retroperitoneal percutaneous w/ imaging guidance (N/A, 04/30/2024); drainage by catheter peritoneal/retroperitoneal percutaneous w/ imaging guidance (Right, 05/07/2024); sigmoidoscopy w/ bx (N/A, 06/25/2024); and placement nephrostomy catheter percutaneous w/ image guidance (Bilateral, 10/12/2024). ALLERGIES No Known Allergies HOME MEDICATIONS Medications Prior to Admission Medication Sig Dispense Refill Last Dose Ascorbic acid 250 MG tablet Take 1 tablet by mouth 2 times daily. 30 tablet 0 Past Week aspirin 81 MG Chew Tab chewable tablet Chew 1 tablet daily. 30 tablet 0 10/10/2024 Docusate 100 MG capsule Take 1 capsule by mouth 2 times daily. 10/10/2024 Acetaminophen 325 MG tablet Take 2 tablets by mouth every 6 hours as needed for Mild Pain or Moderate Pain for up to 7 days. 20 tablet 0 Adhesive Tape (Medipore Surgical 2x10yd) Tape Use as directed for wound care (Patient not taking: Reported on 09/01/2024) 3 Each 3 AMIOdarone 200 MG tablet Take 1 tablet by mouth daily. (Patient not taking: Reported on 06/22/2024) 30 tablet 0 Gauze Pads & Dressings (Kerlix Super Sponges Medium) 6X6-3/4 Pads Use as directed for wound care (Patient not taking: Reported on 09/01/2024) 40 Each 1 Gauze Pads & Dressings (Surgical Dressing) 5X9 Pads Use as directed for wound care (Patient not taking: Reported on 09/01/2024) 12 Each 3 SODIUM CHLORIDE, EXTERNAL, (Saline Wound Wash) 0.9 % Solution Use as directed for wound care (Patient not taking: Reported on 09/01/2024) 210 mL 2 Tamsulosin HCl 0.4 MG capsule Take 1 capsule by mouth daily. 30 capsule 0 CURRENT MEDICATIONS Acetaminophen 975 mg Oral TID Amoxicillin-clavulanate 1 tablet Oral Q12H heparin 5,000 Units Subcutaneous Q12H Pantoprazole 40 mg Intravenous Q12H potassium phosphate 30 mmol Intravenous Once Lactated ringers 125 mL/hr at 10/16/24 0628 REVIEW OF SYSTEMS: General: denies fevers, chills, malaise, weight loss, night sweats HEENT: denies headache, vision changes, hearing changes, rhinorrhea, sore throat Respiratory: denies shortness of breath, cough, dyspnea on exertion Cardiovascular: denies palpitations, chest pain, orthopnea, edema GI/: denies nausea, vomiting, abdominal pain, diarrhea, dysuria, hematuria Extremities: denies myalgias, edema Skin: no rash Neuro: no change in sensation, loss of consciousness Psych: denies anxiety, depression, substance abuse PHYSICAL EXAM: Temp: [98.3 F (36.8 C)-98.9 F (37.2 C)] 98.9 F (37.2 C) Pulse (Heart Rate): [40-58] 51 Resp Rate: [14-19] 14 BP: (121-153)/(58-75) 136/74 O2 Sat (%): [95 %-99 %] 97 % Physical Exam General appearance - alert and oriented, and in no distress. Neck - supple, normal JVP. Carotids - normal upstroke, no bruits. Chest - clear to auscultation, no wheezing, rales or rhonchi, not in acute resp distress. Heart - normal rate, regular rhythm, normal s1/s2, no murmurs, rubs, or gallops Peripheral vascular: peripheral pulses normal Abdomen - soft, non-tender, non-distended, normal bowel sounds. Extremities - warm and well perfused. no edema. Skin - normal color and turgor, no generalized rash. Psych - mood appropriate. Neuro - mentation intact, moving all extremities independently. DATA REVIEWED: EKG (10/15/2024): Normal sinus rhythm with normal axis and normal intervals. No evidence of ectopy, hypertrophy, ischemia or infarct. Telemetry Data: Sinus bradycardia and NSR, rates 40's to 70's Lab Results Component Value Date SODIUM 140 10/16/2024 POTASSIUM 3.1 (L) 10/16/2024 GLUCOSE 109 (H) 10/16/2024 CHLORIDE 104 10/16/2024 CO2 30 10/16/2024 BUN 25 10/16/2024 CREATSERUM 1.87 (H) 10/16/2024 Lab Results Component Value Date WBC 12.75 (H) 10/16/2024 HGB 7.4 (L) 10/16/2024 HCT 24.1 (L) 10/16/2024 PLATELET 297 10/16/2024 MCV 94.9 (H) 10/16/2024 No results found for: TROP, BNP No results found for: TSH Echocardiogram (): none Associated attestation - Enrrique Apodaca MD - 10/17/2024 2:39 PM EST Attending Assessment and recommendations: -Asymptomatic sinus bradycardia. -Resting rates were around in 50s. With little exertion in the bed, goes up to 60s. Asymptomatic. -No indication for temporary or permanent pacer. Attending attestation I have independently examined the patient and confirmed the essential components of the history, physical examination, diagnosis, and treatment plan on 10/17/2024. I agree with the patient's care as documented by the resident/fellow and amended herein by me. See resident/fellow's/FELI's note for complete details of service. -i have spent >45 min in reviewing the history, diagnostic work up and discussing the managementplan with patient and family and the house staff team. Thank you for allowing me to take care of this wonderful patient. Please do not hesitate to call with any questions in care of this patient. Enrrique Apodaca MD [employer] [place] [facility] Work Phone: [phone] 731-223212-28-2024 Consult note* Flip Montoya MD - 10/16/2024 8:52 AM ESTAssociated Order(s): IP CONSULT TO CARDIOLOGY - EP Cardiac Electrophysiology Consultation Patient Name: Andrew Posada Date of Consult: 10/16/2024 Reason for Consultation: Asymptomatic Sinus Bradycardia IMPRESSION & RECOMMENDATIONS: Andrew Posada is a 58 y.o. male who was seen by the EP Consult Service on 10/16/2024. We are asked to assist in management of asymptomatic sinus bradycardia IMPRESSION Bradycardia RECOMMENDATIONS Per the patient, the bradycardia is asymptomatic and has not been hemodynamically significant. Therefore, there is no indication for pacemaker at this time. We'll arrange 30d mobile cardiac telemetry to ensure his HR augments in the outpatient setting. Flip Montoya MD EP fellow [phone] This consult was discussed with Dr. Apodaca, EP attending physician. These recommendations are considered preliminary until cosigned by the attending. If you have any questions or need any further information, please feel free to contact the EP Consult Service. Thank you for allowing us to participate in the care of Andrew Posada. We will sign off at this time. HPI: Andrew Posada is a 43 y.o. male with a history of colon adenocarcinoma s/p lower anterior resection in [place] c/b dehiscence that resulted in end colostomy and rectal stump that became infected abscess requiring I&D in April 2024 and has since been on chemotherapy and radiation therapy. Over the past two days he has become progressively more bradycardic. We are consulted for evaluation. The patient denies any symptoms concerning for symptomatic bradycardia, including fatigue, presyncope, syncope, palpitations, decreased exercise tolerance or lethargy. PAST MEDICAL HISTORY: PAST MEDICAL HISTORY He has a past medical history of Colon cancer. SOCIAL HISTORY He reports that he has never smoked. He has never used smokeless tobacco. He reports that he does not currently use alcohol. He reports that he does not use drugs. FAMILY HISTORY His family history is not on file. He has no family status information on file. PAST SURGICAL HISTORY His has a past surgical history that includes colectomy; drainage by catheter peritoneal/retroperitoneal percutaneous w/ imaging guidance (N/A, 04/30/2024); drainage by catheter peritoneal/retroperitoneal percutaneous w/ imaging guidance (Right, 05/07/2024); sigmoidoscopy w/ bx (N/A, 06/25/2024); and placement nephrostomy catheter percutaneous w/ image guidance (Bilateral, 10/12/2024). ALLERGIES No Known Allergies HOME MEDICATIONS Medications Prior to Admission Medication Sig Dispense Refill Last Dose Ascorbic acid 250 MG tablet Take 1 tablet by mouth 2 times daily. 30 tablet 0 Past Week aspirin 81 MG Chew Tab chewable tablet Chew 1 tablet daily. 30 tablet 0 10/10/2024 Docusate 100 MG capsule Take 1 capsule by mouth 2 times daily. 10/10/2024 Acetaminophen 325 MG tablet Take 2 tablets by mouth every 6 hours as needed for Mild Pain or Moderate Pain for up to 7 days. 20 tablet 0 Adhesive Tape (Medipore Surgical 2x10yd) Tape Use as directed for wound care (Patient not taking: Reported on 09/01/2024) 3 Each 3 AMIOdarone 200 MG tablet Take 1 tablet by mouth daily. (Patient not taking: Reported on 06/22/2024) 30 tablet 0 Gauze Pads & Dressings (Kerlix Super Sponges Medium) 6X6-3/4 Pads Use as directed for wound care (Patient not taking: Reported on 09/01/2024) 40 Each 1 Gauze Pads & Dressings (Surgical Dressing) 5X9 Pads Use as directed for wound care (Patient not taking: Reported on 09/01/2024) 12 Each 3 SODIUM CHLORIDE, EXTERNAL, (Saline Wound Wash) 0.9 % Solution Use as directed for wound care (Patient not taking: Reported on 09/01/2024) 210 mL 2 Tamsulosin HCl 0.4 MG capsule Take 1 capsule by mouth daily. 30 capsule 0 CURRENT MEDICATIONS Acetaminophen 975 mg Oral TID Amoxicillin-clavulanate 1 tablet Oral Q12H heparin 5,000 Units Subcutaneous Q12H Pantoprazole 40 mg Intravenous Q12H potassium phosphate 30 mmol Intravenous Once Lactated ringers 125 mL/hr at 10/16/24 0628 REVIEW OF SYSTEMS: General: denies fevers, chills, malaise, weight loss, night sweats HEENT: denies headache, vision changes, hearing changes, rhinorrhea, sore throat Respiratory: denies shortness of breath, cough, dyspnea on exertion Cardiovascular: denies palpitations, chest pain, orthopnea, edema GI/: denies nausea, vomiting, abdominal pain, diarrhea, dysuria, hematuria Extremities: denies myalgias, edema Skin: no rash Neuro: no change in sensation, loss of consciousness Psych: denies anxiety, depression, substance abuse PHYSICAL EXAM: Temp: [98.3 F (36.8 C)-98.9 F (37.2 C)] 98.9 F (37.2 C) Pulse (Heart Rate): [40-58] 51 Resp Rate: [14-19] 14 BP: (121-153)/(58-75) 136/74 O2 Sat (%): [95 %-99 %] 97 % Physical Exam General appearance - alert and oriented, and in no distress. Neck - supple, normal JVP. Carotids - normal upstroke, no bruits. Chest - clear to auscultation, no wheezing, rales or rhonchi, not in acute resp distress. Heart - normal rate, regular rhythm, normal s1/s2, no murmurs, rubs, or gallops Peripheral vascular: peripheral pulses normal Abdomen - soft, non-tender, non-distended, normal bowel sounds. Extremities - warm and well perfused. no edema. Skin - normal color and turgor, no generalized rash. Psych - mood appropriate. Neuro - mentation intact, moving all extremities independently. DATA REVIEWED: EKG (10/15/2024): Normal sinus rhythm with normal axis and normal intervals. No evidence of ectopy, hypertrophy, ischemia or infarct. Telemetry Data: Sinus bradycardia and NSR, rates 40's to 70's Lab Results Component Value Date SODIUM 140 10/16/2024 POTASSIUM 3.1 (L) 10/16/2024 GLUCOSE 109 (H) 10/16/2024 CHLORIDE 104 10/16/2024 CO2 30 10/16/2024 BUN 25 10/16/2024 CREATSERUM 1.87 (H) 10/16/2024 Lab Results Component Value Date WBC 12.75 (H) 10/16/2024 HGB 7.4 (L) 10/16/2024 HCT 24.1 (L) 10/16/2024 PLATELET 297 10/16/2024 MCV 94.9 (H) 10/16/2024 No results found for: TROP, BNP No results found for: TSH Echocardiogram (): none Associated attestation - Enrrique Apodaca MD - 10/17/2024 2:39 PM EST Attending Assessment and recommendations: -Asymptomatic sinus bradycardia. -Resting rates were around in 50s. With little exertion in the bed, goes up to 60s. Asymptomatic. -No indication for temporary or permanent pacer. Attending attestation I have independently examined the patient and confirmed the essential components of the history, physical examination, diagnosis, and treatment plan on 10/17/2024. I agree with the patient's care as documented by the resident/fellow and amended herein by me. See resident/fellow's/FELI's note for complete details of service. -i have spent >45 min in reviewing the history, diagnostic work up and discussing the managementplan with patient and family and the house staff team. Thank you for allowing me to take care of this wonderful patient. Please do not hesitate to call with any questions in care of this patient. Enrrique Apodaca MD Global Head [employer] feeder-Clinical [facility] * Rajesh Acevedo, DO - 10/13/2024 4:23 PM ESTAssociated Order(s): IP CONSULT TO NEPHROLOGY Images from the original note were not included. NEPHROLOGY INPATIENT CONSULT NOTE Reason for Consultation: INOCENCIA Current Provider: Hilary Lewis MD Hospital Day: 2 Bed: [id number]/A Consult Service: [facility] Nephrology I saw Andrew Posada at the [facility] on 10/13/2024. History of Present Illness: Andrew Posada is a 58 y.o. male who we have been consulted to see on 10/13/2024 Patient has a past medical history of colon adenocarcinoma s/p lower anterior resection in [place] c/b dehiscence that resulted in end colostomy and rectal stump that became infected abscess requiringI&D in April 2024 and has since been on chemotherapy and radiation therapy. Patient presented from oncologist's office on 10/11 with abnormal labs: leukocytosis to 24.5, creat 3.2, Hgb 7, and BUN 64. He was instructed to present to the [facility] ED for treatment where he received fluid resuscitation and a single dose of Rocephin before being transferred to [facility] for higher level of care. Patient has been on LR gtt at 125 cc/h since arrival to [facility]. Imaging showing developing SBO, hydronephrosis and potential development of presacral/periectal abscess. He was found to have hydronephrosis thought to be due to intra- abdominal abscess. He underwent Nephrostomy tube placement on 10/12/24and has since been draining well. His creatinine on admission here was 3.01 mg/dL (baseline of 0.7 mg/dL). After nephrostomy tube placement, has decreased to 2.80 mg/dL this afternoon. He was seen atbedside. Reports nausea and fatigue. Has NG in place and NPO. Denies any chest pain or shortness ofbreath. Denies any swelling. Past Medical History: Diagnosis Date Colon cancer Past Surgical History: Procedure Laterality Date SIGMOIDOSCOPY W/ BX N/A 06/25/2024 Laterality: N/A; Surgeon: Hilary Lewis MD; Location: [facility] PERIOP DRAINAGE BY CATHETER PERITONEAL/RETROPERITONEAL PERCUTANEOUS W/ IMAGING GUIDANCE Right 05/07/2024 Laterality: Right; Surgeon: Catherine Delatorre II, MD; Location: [facility] INTERVENTIONAL RADIOLOGY (CT) DRAINAGE BY CATHETER PERITONEAL/RETROPERITONEAL PERCUTANEOUS W/ IMAGING GUIDANCE N/A 04/30/2024 Laterality: N/A; Surgeon: Catherine Delatorre II, MD; Location: [facility] INTERVENTIONAL RADIOLOGY (CT) COLECTOMY Scheduled Meds: Acetaminophen 975 mg Oral TID heparin 5,000 Units Subcutaneous Q12H Pantoprazole 40 mg Intravenous Q12H piperacillin-tazobactam 4.5 g Intravenous Q12H IV Infusions: Lactated ringers 125 mL/hr at 10/13/24 1204 No Known Allergies No family history on file. Social History Socioeconomic History Marital status: Spouse name: Not on file Number of children: Not on file Years of education: Not on file Highest education level: Not on file Occupational History Not on file Tobacco Use Smoking status: Never Smokeless tobacco: Never Vaping Use Vaping status: Never Used Substance and Sexual Activity Alcohol use: Not Currently Drug use: Never Sexual activity: Not on file Other Topics Concern Not on file Social History Narrative Not on file Social Determinants of Health Financial Resource Strain: Not on file Food Insecurity: No Food Insecurity (10/11/2024) Hunger Vital Sign Worried About Running Out of Food in the Last Year: Never true Ran Out of Food in the Last Year: Never true Transportation Needs: No Transportation Needs (10/11/2024) PRAPARE - Transportation Lack of Transportation (Medical): No Lack of Transportation (Non-Medical): No Physical Activity: Not on file Stress: Not on file Social Connections: Not on file Intimate Partner Violence: Not At Risk (10/11/2024) Humiliation, Afraid, Rape, and Kick questionnaire Fear of Current or Ex-Partner: No Emotionally Abused: No Physically Abused: No Sexually Abused: No Housing Stability: Unknown (10/11/2024) Housing Stability Vital Sign Unable to Pay for Housing in the Last Year: No Number of Times Moved in the Last Year: Not on file Homeless in the Last Year: No Physical Examination: Vital Signs BP 122/64 (BP Location: Right arm, BP Position: Sitting) Pulse 54 Temp 98.4 F (36.9 C) (Oral) Resp 20 Ht 1.727 m (5' 8) Wt 49.2 kg (108 lb 6.4 oz) SpO2 98% BMI 16.48 kg/m Smoking Status Never I/O last 3 completed shifts: In: 1461.2 [I.V.:1441.2; NG/GT:20] Out: 3160 [Urine:1860; Other:1100] Constitutional: Comfortable-appearing, in NAD HEENT: Normocephalic and atraumatic. Sclera non-icteric. Mucous membranes dry Chest: The lungs are clear without rales, rhonchi nor wheezing. Unlabored breathing, on RA Cardiovascular: bradycardic, no rubs, no peripheral edema Abdominal: Soft, mild tenderness, ND, + ostomy : No CVA tenderness. No Cisneros catheter. + bilateral nephrostomy tubes placed 10/12/24 Extremities: No bilateral lower extremity edema Neurological: awake, alert, oriented, moving all extremities spontaneously Skin: No obvious rash Dialysis Access: none Relevant Data: Lab Results Component Value Date SODIUM 145 10/13/2024 POTASSIUM 3.7 10/13/2024 CHLORIDE 103 10/13/2024 CO2 26 10/13/2024 BUN 48 (H) 10/13/2024 CREATSERUM 2.80 (H) 10/13/2024 GLUCOSE 78 10/13/2024 Lab Results Component Value Date WBC 17.22 (H) 10/13/2024 HGB 7.9 (L) 10/13/2024 HCT 25.5 (L) 10/13/2024 PLATELET 437 (H) 10/13/2024 MCV 95.5 (H) 10/13/2024 Lab Results Component Value Date SPGRVTYUR 1.013 10/12/2024 GLUCOSEURINE Negative 10/12/2024 KETONESURINE Negative 10/12/2024 BLOODURINE Moderate (A) 10/12/2024 NITRITESURIN Negative 10/12/2024 LEUKOCESTUR Large (A) 10/12/2024 WBCURINE > 20 (A) 10/12/2024 RBCURINE 6-10 (A) 10/12/2024 BACTERIAURIN PRESENT (A) 10/12/2024 Lab Results Component Value Date CREATSERUM 2.80 (H) 10/13/2024 CREATSERUM 3.01 (H) 10/13/2024 CREATSERUM 3.06 (H) 10/12/2024 Lab Results Component Value Date CALCIUM 9.5 10/12/2024 PHOSPHORUS 4.3 10/13/2024 Assessment and Plan: Assessment: Mr. Posada is a 58 year old male with colon adenocarcinoma s/p lower anterior resection in [place] c/b dehiscence that resulted in end colostomy and rectal stump that became infected abscess requiring I&D in April 2024 and has since been on chemotherapy and radiation therapy. Nephrology was consulted for INOCENCIA. Non-oliguric INOCENCIA Baseline Cr 0.7 Cr at consult: 3.06 UA with large LE, >20 WBCs, cloudy Etiology likely 2/2 severe bilateral [address]rosis on CT from OSH due to intra-abdominal abscess vs septic/ischemic ATN Azotemia but no uremia Leukocytosis 2/2 UTI vs abscess - gram negative on Culture Anemia Unclear etiology Recommendations: INOCENCIA seems to be post-obstructive with hydronephrosis on imaging. Now s/p NT bilaterally on 10/12/24at are draining adequately with clear colored urine in the bags (490 cc and 580 cc in 24h). Additionally, he appears volume depleted with poor intake prior to admission and now NPO status. Continue IVF with LR at 125ml/hr for today Continue Zosyn to treat for UTI/intrabdominal abscess Monitor for polyuria and post-obtructive diuresis Continue to check Chem daily and monitor lytes Strict I/Os There is no need for TALENT ACQUISITION RELATIONSHIP MANAGER at this time Renal protective measures: Have pharmacy assist with renal dosing of medications, antibiotics in this case Avoid nephrotoxic medications including but not limited to NSAIDs and iodinated IV contrast if possible Maintain MAP >65 at all times Transfuse for Hb < 7 Recommend low potassium, low phos diet for now Avoid hyperglycemia as able Avoid supratherapeutic INR/PTT to minimize the risk of anticoagulant-related nephropathy Please feel free to page/call with any questions or concerns Appreciate Urology recs and rest of care per primary These recommendations are not finalized until signed by an attending staff physician. Thank you forallowing us to participate in the care of this patient. Please feel free to reach out with any questions or concerns. --- Note: This note was transcribed using voice recognition software. Every effort was made to ensure accuracy; however, inadvertent computerized area secretary errors may be present. Please contact us via web-exchange - Nephrology - Catherine 1 Fellow. For urgent/stat calls 5pm to 7am or all day on the weekend, please page the on- call Neph fellow on [employer] ( Internal Medicine> Nephrology > Catherine ) . Rajesh Acevedo, DO Via secure chat (preferred) or pager: [phone] Clinical Nephrology Fellow PGY - 4 Associated attestation - Luis Miguel Acuña MD - 10/14/2024 8:40 AM EST Renal Attending Attestation: I have seen and examined the patient and completed a full history and physical independent of Dr. Acevedo on 10/13/24. I reviewed the findings and plan with him and the patient. I have edited the note above and made changes where necessary and agree with the plan as it isnow written. Patient with hx of colon adenocarcinoma s/p resection c/b dehiscence, abscess s/p I&D in April, on chemo/radiation admitted now for INOCENCIA, leukocytosis and anemia. Found to have devloping SBO, UTI and possible intraabdominal abscess causing bilateral hydronephrosis. He is now s/p Bilateral NTs. Nephrology consulted for evaluation of INOCENCIA. Since Neph tubes placed, he has had good urine output and SCr no longer worsening. Slightly improved when seen. He does appear hypovolemic on exam and is NPO. Agree with continue IVF with LR at 125ml/hr. Electrolytes otherwise balanced. I am notsure what chemotherapy he is receiving and whether that could also be contributing to INOCENCIA. For now,appears volume depletion and obstructive nephropathy s/p NTs. Continue IVF. Continue antibiotics with gram negative coverage for UTI and possible abscess. Trend labs daily and monitor for post-obstructive diuresis. Thank you for allowing us to participate in the care of this patient. Please do not hesitate to call us with any question or concerns. We will continue to follow the patient closely. Luis Miguel Smallwood MD [id number] [employer] [employer] Division of Nephrology * Miguel A Holloway MD - 10/12/2024 2:47 PM ESTAssociated Order(s): IP CONSULT TO INTERVENTIONAL RADIOLOGY Interventional Radiology Consult Note [facility] Charge [id number] [facility] Charge [id number] Admission Date: 10/11/2024 Requesting Provider/Service: Anselmo Lindsey MD Reason for Consult: Need for bilateral neph tube placement in the setting of bilateral hydronephrosis HPI: Andrew Posada is a 58 y.o. male with a past medical history of colonic adenocarcinoma s/p LAR presenting with small bowel obstruction and new bilateral hydronephrosis with INOCENCIA. IR consulted for bilateral nephrostomy tube placement. He presented to OSH from yesterday where a CT was performed, which demonstrated small bowel obstruction, and bilateral hydronephrosis, bladder distention and possible pre-sacral abscess. He complainsof urinary retention then incontinence. White count is 20.9. Cr is 3.0, baseline is 0.7. He is afebrile, not tachycardic, and normotensive. Barriers to Consent: None Sedation Anticipated: moderate Diet: DIET NPO with meds Code Status: Full Code Anticoagulation: None Contrast allergy: No Laboratory Data: Lab Results Component Value Date/Time PT 15.4 (H) 10/12/2024 03:54 AM INR 1.2 (H) 10/12/2024 03:54 AM PTT 28.2 10/12/2024 03:54 AM Lab Results Component Value Date WBC 20.89 (H) 10/12/2024 HGB 10.1 (L) 10/12/2024 HCT 31.5 (L) 10/12/2024 PLATELET 557 (H) 10/12/2024 MCV 93.2 10/12/2024 Lab Results Component Value Date SODIUM 139 10/12/2024 POTASSIUM 5.6 (H) 10/12/2024 CHLORIDE 99 10/12/2024 CO2 25 10/12/2024 BUN 60 (H) 10/12/2024 CREATSERUM 3.01 (H) 10/12/2024 GLUCOSE 112 (H) 10/12/2024 Lab Results Component Value Date/Time GFR 23 (L) 10/12/2024 01:39 AM Allergies: No Known Allergies Impression/ plan: Mr. Posada is a 58 yr old man with hx of colonic adenocarcinoma s/p low anterior abdominal resection presenting with small bowel obstruction and bilateral hydronephrosis with INOCENCIA. -Imaging reviewed which does not demonstrate a clear etiology of the obstruction. May be due to mass effect from obstructed bowel vs. Urinary retention or obstruction related to presacral collection/other. At this time would recommend NG tube for bowel decompression. Will discuss with urology regar ding possible utility of Cisneros catheter -After this has been complete, would recommend repeat AM Cr and renal ultrasound to assess kidney function/ and hydronephrosis. If there is persistent hydronephrosis and lack of improvement in renal function, then will plan on bilateral nephrostomy tube placement tomorrow -However, if there is change in clinical status that would affect urgency of the procedure, please reach out to IR network operations specialist. -please keep NPO at midnight. - INR <1.5, platelets >50, hemoglobin >8.0. Consult discussed with colorectal surgery from the requesting team on 10/12/2024 at 1:30 PM Consult reviewed with IR Attending Dr. Lebron who agrees with the above plan. Miguel A Holloway MD 10/12/2024 2:48 PM Important Notes Procedures are performed with either moderate sedation or anesthesia services. Both require the patient to be NPO (which includes tube feeds). Patients will need to lie flat comfortably for the duration of the procedure. Please be aware that patients requiring anesthesia services will require additional coordination which may increase the time from consult to procedure. Questions For questions regarding [facility] Inpatients please call [phone]. For questions regarding [facility] Inpatients please call [phone]. For questions regarding Biopsies, please call [phone]. * Salina Mccain MD, PhD - 10/12/2024 2:16 AM ESTAssociated Order(s): IP CONSULT TO SURGERY - UROLOGY UROLOGY CONSULT NOTE Patient: Andrew Posada Consult Reason: Urinary incontinence after LAR History of Present Illness Andrew Posada is a 58 y.o. male with a past medical history of colonic adenocarcinoma s/p LAR March 2024 in [place] c/b dehiscence requiring end colostomy and rectal stump abscess s/p IR drainage in April 2024 s/p chemoradiation. He presented today to his oncologist for routine follow-up where labs showed leukocytosis to 24.5, Hgb 7, creat 3.2, and BUN 64. He was instructed to present to the [facility] ED for treatment where he received fluid resuscitation and a single dose of Rocephin before being transferred to [facility] for higher level of care. Imaging showing developing SBO, hydronephrosis and potential development of presacral/periectal abscess. Continues here on abx with Zosyn. On interview, patient has been having urinary incontinence since March 2024. Initially after surgeryhad retention and was on tamsu but since then incontinent. Uses up to 5 pads during day and up to 5pads during nighttime. Incontinence pretty much constantly and not associated with stress or urge. No dysuria, no hematuria. He has denied fevers and chills but does endorse having reduced ostomy output. Had diarrhea a couple of days ago. He has tried to keep up with his nutrition but endorses thathe has lost weight recently. No flank pain. Currently HDS and AF. - UA w bacteria, blood, LE, neg nitrites - PVR 33cc Review of System (Negative unless specified in HPI) Medical History MEDICAL HISTORY: Past Medical History: Diagnosis Date Colon cancer SURGICAL HISTORY: Past Surgical History: Procedure Laterality Date SIGMOIDOSCOPY W/ BX N/A 06/25/2024 Laterality: N/A; Surgeon: Hilary Lewis MD; [place] [facility] [place] PER[place]OP DRAINAGE BY CATHETER PERITONEAL/RETROPERITONEAL PERCUTANEOUS W/ IMAGING GUIDANCE Right 05/07/2024 Laterality: Right; Surgeon: Catherine Delatorre II, MD; Location: [facility] INTERVENTIONAL RADIOLOGY (CT) DRAINAGE BY CATHETER PERITONEAL/RETROPERITONEAL PERCUTANEOUS W/ IMAGING GUIDANCE N/A 04/30/2024 Laterality: N/A; Surgeon: Catehrine Delatorre II, MD; [facility] INTER[facility]AL [facility] (CT) COLECTOMY ALLERGIES No Known Allergies MEDICATIONS: Current Facility-Administered Medications Medication Dose Route Frequency Provider Last Rate Last Admin Acetaminophen (TYLENOL) tablet 975 mg 975 mg Oral TID Kevan Jasso MD Heparin injection 5,000 Units 5,000 Units Subcutaneous Q12H Kevan Jasso MD HYDROmorphone (DILAUDID) injection 0.2 mg 0.2 mg Intravenous Q3H PRN Kevan Jasso MD Or HYDROmorphone (DILAUDID) injection 0.5 mg 0.5 mg Intravenous Q3H PRN Kevan Jasso MD Lactated ringers IV solution Intravenous Continuous Kevan Jasso MD 125 mL/hr at 10/12/24 0607 Rate Verify at 10/12/24 0607 Melatonin tablet 6 mg 6 mg Oral QHS PRN Kevan Jasso MD Ondansetron (ZOFRAN) tablet 4 mg 4 mg Oral Q6H PRN Kevan Jasso MD Or Ondansetron 4mg/2ml (ZOFRAN) injection 4 mg 4 mg Intravenous Q6H PRN Kevan Jasso MD oxyCODONE (ROXICODONE) tablet 5 mg 5 mg Oral Q4H PRN Kevan Jasso MD Or oxyCODONE HCl (ROXICODONE) tablet 10 mg 10 mg Oral Q4H PRN Kevan Jasso MD Piperacillin-tazobactam (ZOSYN) 4.5 g in dextrose premix IVPB 4.5 g Intravenous Q8HNS Kevan Jasso MD Stopped at 10/12/24 0401 Prochlorperazine (COMPAZINE) tablet 5 mg 5 mg Oral Q6H PRN Kevan Jasso MD Or Prochlorperazine (COMPAZINE) injection 5 mg 5 mg Intravenous Q6H PRN Kevan Jasso MD Sodium chloride 0.9% IV solution 250 mL 250 mL Intravenous PRN Kevan Jasso MD Sodium Zirconium Cyclosilicate (LOKELMA) powder 10 g 10 g Oral Once Kevan Jasso MD FAMILY MEDICAL HISTORY: his family history is not on file. SOCIAL HISTORY: he reports that he has never smoked. He has never used smokeless tobacco. He reports that he does not currently use alcohol. He reports that he does not use drugs. Objective VITALS: Temp: [97.6 F (36.4 C)-98.1 F (36.7 C)] 97.8 F (36.6 C) Pulse (Heart Rate): [80-88] 81 Resp Rate: [18] 18 BP: (128-149)/(74-97) 140/88 O2 Sat (%): [96 %-97 %] 96 % Weight: [49.2 kg (108 lb 6.4 oz)] 49.2 kg (108 lb 6.4 oz) O2 Sat (%): 96 % (10/12 0758) O2 Device: room air (10/12 758) PHYSICAL EXAM General: Awake, alert, in NAD. Resting comfortably in bed. Neuro: AOx4. Cranial Nerves II-XII grossly intact. Cardiovascular: Hemodynamically stable. Regular rate as evaluated by palpation of pulse. Pulmonary: Normal respiratory effort. Abdomen: Soft, non-tender, non-distended, no rebound/guarding/rigidity or other signs of peritonitis, Ostomy with gas and stool in appliance Extremities: Warm and well perfused with gross sensation and motor intact LABS: Recent Labs 10/12/24138 WBC 20.89* HGB 10.1* PLATELET 557* LACT 1.3 Recent Labs 10/12/24 013 SODIUM 139 POTASSIUM 5.6* CHLORIDE 99 CO2 25 BUN 60* CREATSERUM 3.01* MAGNESIUM 2.3 PHOSPHORUS 6.1* Recent Labs 10/12/24 0354 PT 15.4* PTT 28.2 INR 1.2* Recent Labs 10/12/24 0139 PREALBUMIN 12* IMAGING CT ABDOMEN (OUTSIDE IMAGE) Result Date: 10/12/2024 Outside Imaging Study for Support of Clinical Care. This study was sent from an outside facility [facility] for support of clinical care of the patient within the [facility] system. MRI RECTUM WITHOUT AND WITH CONTRAST Result Date: 10/07/2024 EXAM: MRI RECTUM WITHOUT AND WITH CONTRAST, 10/06/2024 16:52 PM CLINICAL INDICATIONS: rectal cancers/p chemoradiation C20:Malignant neoplasm of rectum COMPARISON: CT abdomen pelvis from May 20, 2024 TECHNIQUE: Multiplanar, multisequence MRI scanning of the rectum was performed before and after IV contrast administration. FINDINGS: Gastrointestinal: Postoperative changes from low anterior resection with rectal stump and left lower quadrant colostomy. Ostomy is only seen on the wider [id number] images. In the upper aspect of the rectal stump, there is a polypoid lesion measuring 1.8 x 1.6x 1.3 cm (; 01/12), previously 3.5 x 2.5 cm. This mass restricts diffusion (). This presumably corresponds with the area seen on endoscopy, which was biopsy-proven rectal adenocarcinoma. Thesignal abnormality associated with this tumor extends to the anterior rectal wall with suspected tiny areas of extension beyond the wall (/28). Perirectal fluid collections with adjacent enhancement and internal diffusion restriction, concerning for abscesses. The first is more inferior and measures 3.0 x 1.8 x 2.7 cm (13/; 3/24), previously 2.8 x 1.3 x 4.4 cm. This appears to communicate with the upper rectal stump (/). A second collection measures 2.1 x 1.1 x 2.0 cm (13/; 3/), and was either not well delineated or not present previously. There is extensive scarring and inflammation near the upper rectum with associated tethering, which may be due to prior surgery and radiation as well as a component of inflammatory changes from the abscesses. Lymph nodes: No definite lymphadenopathy Bladder: Underdistended. There is thickening of both distal ureters (/) with upstream partially visualized bilateral hydroureteronephrosis. Other pelvic organs: Prostatic heterogeneity, probably treatment related. Body wall: Postoperative changes with partially visualized ostomy. Bones: Heterogeneous marrow signal, nonspecific. No definite osseous lesion. IMPRESSION: 1. The polypoid lesion in the rectal stump, which represents biopsy- proven recurrent rectal adenocarcinoma, has decreased in size compared to the May 2024 CT. 2. No lymphadenopathy. 3.Perirectal abscesses, one of which is stable, though the other is new or increased in conspicuity. The more inferior collection appears to communicate with the upper rectal stump. 4. Scarring and inflammation near the superior aspect of the rectal stump, likely representing a combination of postoperative scarring, posttreatment changes, and reactive inflammation from the abscess. 5. Left lower quadrant colostomy, not fully evaluated on this exam. ABDOMEN 1 VIEW PORTABLE XR CHEST 1 VIEW PORTABLE MICRO No results found for the last 90 days. Assessment and Plan Andrew Posada is a 58 y.o. 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 Currently admitted for developing SBO, INOCENCIA and c/f intraabdominal infection/abscess. Urology c/s for urinary incontinence.Also has bilateral hydronephrosis. - FU Urine culture - Empiric abx - Would recommend bl NT, stents would aggravate incontinence - Urology will continue to follow. Please do not hesitate to reach out if there are any additional questions or concerns regarding this patient's care. - Dispo: will need outpatient FU w urology, please place referral Patient will be discussed with Dr. Meadows, attending network operations specialist. Plans are not considered finalized until the attending has attested the note. Salina Mccain MD, PhD Urologic Surgery, PGY-2 [id number] 10/12/24 Please page the Urology consult pager with questions or concerns (Found in [employer]Genda) [facility] --> Urology --> Consults [facility] --> Urology --> [facility] ALL URGENT ISSUES SHOULD BE PAGED TO THE ABOVE PAGER - Epic chat is not a reliable method of urgent communication with a surgical service at any time. - The person who wrote this note may be off service, post call, or otherwise unavailable. [facility]* Nursing Notes - Rachael Hanley RN - 10/15/2024 6:49 PM EST Patient having bradycardia today. EKG completed at 0900 and again at 1230. IHIS chat continued withKori Cuellar MD. 1600: Sent message. Pt maintaining HR in the 30's. Do you want to treat this? Responded: Will reach out to cards. Make him PCU. [facility] Nurse Note* Nursing Notes - Rachael Hanley RN - 10/15/2024 6:45 PM EST Paged team:Andrew Posada [phone]: pt just had 8 beat run of v-tach. Pt asymptomatic Rachael [phone] [place]12-27-2024 Plan of care note* Plan of Care - Megan Winston MD - 10/15/2024 4:19 PM EST Nephrology sign off note Nephrology Problem List: Non-oliguric INOCENCIA Baseline Cr 0.7 Cr at consult: 3.06 UA with large LE, >20 WBCs, cloudy Etiology likely 2/2 severe bilateral [address]reteronephrosis on CT from OSH due to intra-abdominal abscess vs septic/ischemic ATN Azotemia but no uremia Severe protein malnutrition Leukocytosis 2/2 UTI vs abscess - gram negative on Culture Anemia Unclear etiology Renal function continues to improve. Thank you for allowing us to participate in the care of Andrew Posada. We will sign off at this time. Please do not hesitate to call for questions or concerns. Megan Winston MD [employer] [facility] Clinical Medicine Division of Nephrology [place]12-27-2024 Nurse Note* Nursing Notes - Susie Fuentes RN - 10/15/2024 9:57 AM EST Initial Assessment Referral Information Arrived From: emergency department Readmission Information Was patient readmitted within 30 Days?: No Information Source Information Source: patient , spouse Information Source Name: Brandon Posada Information Source Number: see demographic sheet Outpatient Providers Outpatient Providers Updated In IHIS: Yes Contact Information Supervisor Type Disk Quality Control/SW Added to Care Team: Yes This [employer] Contractor is Primary Supervisor Type Disk Quality Control/SW: Yes Supervisor Type Disk Quality Control Name: Susie Fuentes Supervisor Type Disk Quality Control's Social Work Contact Name: Zully Aburto [employer] Living Environment Lives With: spouse, child(brian), adult (4 of 8 children live with him and his ) Living Arrangement and Set Up: house Provides Primary Care For: no one Primary Care Provided By: self, spouse/significant other (Spouse assists with dressing changes, etc. Pt had colostomy prior to admission. Last office visit pt reported being deconditinoed but still able to complete ADLs) Support System: Immediate family, Extended family, Community Able to Return to Prior Arrangements: yes Functional Status Patient's Functional Status Prior To This Admission?: Independent Are There Status Changes This Admission?: Yes Changes Observed Since Admission?: Physical Concerns With Patient Being Able To Care For Themselves At Discharge? : Has Assistance (Friend, Family, Skilled Provider) Who Is Patient's Primary Contact For Discharge Planning, Education And Care For Discharge?: Spouse Can Support Person Meet The Care Needs Of The Patient?: Yes Employment/Financial Employed?: Yes Employment Details: Pt and family have income; pt currently unable to work Employment/Financial Concerns: no Source Of Income: salary/wages Financial Concerns: inadequate insurance coverage Insurance Medical Insurance Verified: No Contacted Financial Assistance/Updated Medical Team: Yes ([employer] [place] approved 100% until 05/03/2025, pt is not eligible to reapply for HCAP until 12/22/2024) Prescription Coverage: No (Pt able to cover costs of medications) Pharmacy updated in IS: Yes ([facility] is preferred) Initial Discharge Planning Home Care Services (CARE TRANSITION MANAGER): No Home Therapies (CARE TRANSITION MANAGER): None DME (CARE TRANSITION MANAGER): None, Ostomy Supplies Medical Supplies (CARE TRANSITION MANAGER): Ostomy Supplies Patient Goal for Discharge: Get better Expected Discharge Disposition: Home Anticipated Services at Discharge: Outpatient follow up Anticipated Changes Related to Illness: inability to work Current Discharge Risk: other (see comments) (high risk diagnosis) Transportation Available: car, family or friend will provide Assessment/Concerns to be Addressed Concerns To Be Addressed: denies needs/concerns at this time Continued Stay Discharge Planning Expected Discharge Disposition: Home Anticipated Services at Discharge: Outpatient follow up Social Work Assessment Information Source Information Source: patient , spouse Information Source Name: Brandon Posada Information Source Number: see demographic sheet Contact Information Supervisor Type Disk Quality Control/SW Added to Care Team: Yes This Brickmason Contractor is Primary Supervisor Type Disk Quality Control/SW: Yes Supervisor Type Disk Quality Control Name: Susie Fuentes Supervisor Type Disk Quality Control's Social Work Contact Name: Zully Aburto [employer] Living Environment Lives With: spouse, child(brian), adult (4 of 8 children live with him and his ) Living Arrangement and Set Up: house Provides Primary Care For: no one Primary Care Provided By: self, spouse/significant other (Spouse assists with dressing changes, etc. Pt had colostomy prior to admission. Last office visit pt reported being deconditinoed but still able to complete ADLs) Support System: Immediate family, Extended family, Community Able to Return to Prior Arrangements: yes Employment/Financial Employed?: Yes Employment Details: Pt and family have income; pt currently unable to work Employment/Financial Concerns: no Source Of Income: salary/wages Financial Concerns: inadequate insurance coverage Discharge Planning Referral Information Arrived From: emergency department Final Discharge Planning Discharge Disposition: Home Services at Discharge: Wound/drain/line/ostomy-supplies (Outpatient follow up) CM/SW AVS Portion Completed: Yes (Retired/Read Only) Plan Plan: Home possibly this weekend with support from spouse Patient/Family In Agreement With Plan: yes PCRM Initial Assessment and Final Discharge Planning Note Met with patient and spouse to complete the initial assessment and to discuss final discharge plan.Explained role and function of PCRM in multidisciplinary team. Contact number provided for questions. Demographic information reviewed with patient/family and confirmed as correct. Reason for Admission: Pt presented with concern for SBO, hydronephrosis, INOCENCIA Discharge Plan of Care: Patient discussed in multidisciplinary rounds. Patient is medically ready for discharge possibly this weekend if he is able to tolerate a diet once advanced. Starting clear liquids today. Services for Discharge: Discharging to home. Pt does not have a traditional health insurance plan, his spouse, children andcommunity assist with his care needs. will complete Neph tube dressing changes, she has already watched once. They will need supplies at discharge. Advanced directives: Patient does not have Advanced Directives on File Consults with Final Discharge Recommendations Urology- follow up scheduled PT ok to return home Nephrology- awaiting final recs Lines/Drains/Tubes/Wounds/Supplies for Discharge Bilateral Nephrostomy tubes- will care for at home, spouse to assist [place]- had CARE TRANSITION MANAGER Colostomy- Had CARE TRANSITION MANAGER Medications No barriers anticipated in obtaining discharge medications. No prior authorizations anticipated. Reconciliation of medications to be completed by the medical team. Pt is currently on IV Zosyn, will transition to po augmentin at discharge. Durable Medical Equipment Bedside RN will provide for neph tube dressing supplies. Choice Was Patient Choice Provided: N/A Transportation Transportation will be provided by family. Education Discharge education provided by the medical team and updated in the After Visit Summary. Bedside RN to provide teaching on neph tube dressing changes. Follow Up(s) Any follow up requested by the medical team arranged. Appointments in the After Visit Summary. Future Appointments Provider Department Center 10/22/2024 2:20 PM Greg Capri [facility] [place] Arrive at: Arrive to 2nd Floor, Registration [address] [facility] 10/29/2024 11:30 AM Hilary Lewis [facility] [place] Arrive at: Arrive to 1st Floor Registration [facility] Pt aware he will come back to see Dr. Lewis and get labs drawn prior to his appointment. ACO Patient: No Was Ambulatory PCRM added to the Care Team? No- No outpatient PCRM for this physician The PCRM has updated the patient's nurse Rachael regarding the final discharge plan. Risk of Readmission: 9.2 Category Reference: Low: 0% - 5% Medium - Low: 5.1% - 10% Medium - High: 10.1% - 16% High: 16.1% - 100% Readmission Risk Interventions Documented: Yes No other discharge needs have been identified at this time. This plan was developed in collaboration with the patient and caregiver/preferred decision maker and is in agreement with final discharge plan. Please refer to AVS and medical record for additional information. Patient instructed to call with questions. PCRM will continue to follow with medical team for any additional discharge planning needs. AUDRA Moreno Colorectal Surgery [phone] For evening and weekend discharge assistance: Pager for network operations specialist PCRM at [phone] Pager for network operations specialist [phone] [place]12-27-2024 Hospital Discharge instructions* Discharge Instructions* Susie Fuentes RN - 10/15/2024 8:57 AM EST Images from the original note were not included. Please have your labs drawn prior to your Dr. Lewis appointment on 10/29/23 COLORECTAL ADDITIONAL CONTACTS For Concerns During Weekend or Evening Hours: -If you have questions or concerns call and ask the multiple resaw operator to page the certified surgical tech/first assistant network operations specialist. Reminder: [employer] messaging goes unmonitored during evenings and weekends. Any concerns or questions during this time, please call using instructions above. Clinic Office Main Number: [phone] Colorectal non-Cancer: [phone] Fax Line: [phone] Supervisor Type Disk Quality Control: Susie Fuentes ([facility]) BILLING RELATED QUESTIONS, please call [phone] ENTEROSTOMAL THERAPY RN + OSTOMY Clinic+ IMPORTANT: Automated Post Discharge Call Patient Information As part of your care, we will call you at the primary number we have on file, the day after you aredischarged at 9:30 a.m. to check on you. Please expect a two-minute automated telephone call from the hospital. This call will come from [phone]. If you are unable to answer or do not receive the automated call, please call [phone] to complete this important evaluation. By answering the phone evaluation, a [facility] nurse will be notified if you have any questions or concerns and call you back. If you have an immediate medical need call your doctor s office, or if you have a medical emergencycall 911. * Discharge Instr - Activity* Susie Fuentes RN - 10/15/2024 8:47 AM EST Activity as tolerated. * Discharge Instr - Diet* Susie Fuentes RN - 10/15/2024 8:47 AM EST For the next 6 weeks follow the below diet: Low Fiber Diet A diet low in fiber can help keep your stomach and bowels from being irritated. This diet provides foods that are non-irritating and easily digested. If carefully planned, this diet can provide you with most nutrients you need to be healthy. However, over a long period of time, you may find it hardto eat enough fruits and vegetables. Your diet may also be too low in calcium. Talk to your doctor or dietitian about taking a multivitamin or liquid nutritional supplement. Bread Choose breads without seeds or nuts. Foods allowed: Breads, rolls, pancakes, waffles, and crackers made with enriched, refined white flour Soda crackers [place] Toasts Foods to avoid: Bread containing bran or coarse whole grain Rolls, pancakes, waffles, and crackers made with whole grains Cereals, Pasta, Grains, and Potatoes Choose grain foods with less than 2 grams of dietary fiber per serving. Foods allowed: Refined cooked cereal, such as Cream of Rice, Cream of Wheat, grits, strained oatmeal, Malt-O-Meal Dry cereal, such as cornflakes, puffed rice, Rice Krispies, Honey Smacks, Special K White flour White potatoes, without skin, prepared any way, except fried Mashed sweet potatoes, without skin White rice White pasta Foods to avoid: Whole grain or bran cereal, such as shredded wheat, All Bran, Fiber One, Nutri- Grain, and granola Popcorn Fried potatoes or other substitutes not listed as allowed Brown and wild rice Potato skins Whole wheat pasta products Desserts / Sweets Foods allowed: Da food and sponge cakes Plain cakes with simple frosting Plain cookies Ice cream, sherbet Fruit Whips Gelatin desserts Puddings Custard Sugar Syrup Honey Jelly Molasses Hard candy Foods to avoid: Rich pastries Desserts, which contain nuts, coconut, or fruits that are unapproved All fruit not listed as allowed Jams, preserves, and marmalade Candy with nuts, raisins, or fruits are not allowed Vegetables Foods allowed: Well cooked vegetables Vegetables without skin or seeds Pureed vegetables Vegetable juices Foods to avoid: All raw vegetables, including lettuce Cooked spinach or greens Fruits and Juices Foods allowed: Cooked fruits without skin or seeds Applesauce Pears, peaches Peeled apricots [place] cherries Ripe banana Ripe avocado Fruit juice without pulp Pureed fruits Foods to avoid: Dried fruit Fruit skin and seeds Pineapple juice Meat and Other Protein Foods Foods allowed: Tender beef, ang, veal, pork Poultry, fish Eggs prepared any way except fried Smooth nut butters (peanut, almond, sunflower seed, etc.) Foods to avoid: Pickled, spiced, smoked meat Shellfish Fried meats, fish, or eggs Tough meats or meats with gristle Sausage Nuts and seeds Beans, peas and lentils Cheese and Milk Products If you are lactose intolerant, avoid milk and foods made with milk. Foods allowed: Cottage cheese Cream cheese Any cheese that has no dried fruits and nuts Yogurt with active cultures Ice cream Note: Include all of these in milk allowance Foods to avoid: Cheese with dried fruits and nuts Yogurt or ice cream with berries, nuts or dried fruits Fats When possible, choose healthier oils like olive or canola oil. Foods allowed: Avocado Butter Cream Margarine Mild salad dressing Vegetable oils Foods to avoid: None Soups Foods allowed: Broth and strained soups made with allowed ingredients Foods to avoid: All other soups Beverages Most people need 8 to 10 cups of fluid each day. If you are lactose intolerant, avoid milk and foods made with milk. Foods allowed: Cow, soy, rice, and almond milk and milk products Choose low fat or fat free milks Coffee Decaffeinated coffee Tea [place] Carbonated beverages Fruit juice (except prune juice) Foods to avoid: All other beverages Miscellaneous Foods allowed: Salt used in moderation Mild spices Gravy Cream sauces Foods to avoid: Rich, highly spiced, or seasoned foods and sauces Fried foods Pickles Olives Silvia 1999 - April 13, 2020, [facility]. This handout is for informational purposes only. Talk with your doctor or healthcare team if you have any questions about your care. For more health information, call the [employer] for Health Information at [phone] or email: [email or web address]. * Discharge Instr - Notify* Susie Fuentes RN - 10/15/2024 8:47 AM EST For Concerns During Weekend or Evening Hours: -If you have questions or concerns call and ask the multiple resaw operator to have the general surgery chief resident paged. Reminder: [employer] messaging goes unmonitored during evenings and weekends. Any concerns or questions during this time, please call using instructions above. Clinic Office Main Number: [phone] NOTIFY PHYSICIAN: SYMPTOMS WOUND INFECTION - Increase in pain in or around wound - Change in the amount of drainage - Change in the color of drainage - Change in the odor of drainage - Warmth in the tissues around the wound - Red streaks on the skin near the wound - Fever (temperature greater than 101 degrees F) - Incision separates or opens up UNRELIEVED PAIN + - Increased or unrelieved pain NAUSEA/VOMITING + - Nausea and vomiting that continues for more than 24 hours - Not able to keep medicine down - Not able to keep fluids down SYMPTOMS OF DVT + DVT = Deep Vein Thrombus, or Blood Clot -Any Tender, Swollen, or Reddened Areas from Your Groin to Your Heels -Numbness or Tingling In Groin or Calf -The Skin on Your Leg Looks Pale or Blue or It Feels Cold To Touch -Numbness or Tingling In Groin or Calf -Any Shortness of Breath -Chest Pain -Fever or Chills SYMPTOMS OF GI BLEED + Call your doctor or nurse if you have signs of slow blood loss such as: -Black tarry bowel movements -Cold hands and feet -Weakness -Dizzyness Call 911 if you suddenly have signs of blood loss such as: -Vomiting blood -Fast heart rate -Feeling faint or blacking out -Passing bright red blood from your rectum * Discharge Instr - Wound Care* Susie Fuentes RN - 10/14/2024 9:55 AM EST Images from the original note were not included. Home Care for Your Nephrostomy Catheter ? Take your usual medicines when you get back home. ? If you take metformin (Glucophage, Glucophage XR) or glyburide/metformin (Glucovance) for diabetes, do not take that medicine for 48 hours after the catheter placement. This is because it could react badly with the dye used to during the catheter placement. The dye clears from your body in a day or two. Drinking water helps to rid the dye from your body. Restart this medicine on the third day after the procedure. Skin care and Showering Keep the drain site dry. You may take a shower 48 hours after the drain is placed or changed. Before you shower, cover the drain dressing and the skin around the site with plastic wrap taped to your skin. You must cover the site for 14 days after the first drain is placed. You do not have to cover the site following tube changes. After 14 days, if the site has healed, you can shower without the dressing and plastic wrap. After your shower, use a clean washcloth and liquid antibacterial soap like Dial with water to clean the site. Then rinse the site well with plain water. Pat the drain site gently with a towel to dry. Bathing in a tub, using a hot tub or swimming is not recommended as long as you have the drain in place. Call or go to the nearest Emergency Room if, in the first 4 to 8 hours after your catheter is put in, you have: ? Active bleeding at the catheter site that does not stop after you put finger pressure on it ? Increasing pain or swelling at or around the catheter site ? Fever of 101 degrees Fahrenheit (38 degrees Celsius) or greater with or without chills Dressing change Keep the skin around your drain clean and covered with a 4x4 gauze dressing. The gauze dressing should be changed every other day. You may need to change it more often if it becomes wet, loose, or dirty. Steps 1. Gather your supplies. ? 2 pairs of non-sterile gloves ? Cotton swabs or clean washcloths ? Antibacterial soap ? 4x4 gauze split dressings (package of two) ? Paper tape if gauze dressing is used ? Small plastic garbage bag 2. Wash your hands with soap and water for 15 seconds. Rinse and towel dry. 3. Put on the non-sterile gloves. 4. Carefully remove the old dressing to avoid dislodging the catheter. Note soreness, redness, drainage or odor at the site where the catheter goes through the skin. These signs may indicate infection. If any of these signs are noted, clean the skin site and change the dressing more often for one week. If the signs do not improve right away, call your doctor. 5. Remove the non-sterile gloves and wash your hands again. Then put on the other clean pair of gloves. 6. Clean the skin around the catheter (exit site) with a cotton swab or clean washcloth wet with liquid antibacterial soap and water. Use a circular motion moving outward from the center to about 3 inches. Repeat this step with the second swab or washcloth, and more if needed to remove any crusting. Let the area air dry. Do not fan it to speed the drying because that will put more germs near the site. If the antibacterial soap irritates your skin, use sterile saline to clean the site. 7. Apply one sterile 4x4 gauze pad around the tube. Be careful not to touch the pad where it will be placed over the catheter. 8. Use a second gauze dressing, placed over the first one to cover the tube. 9. Tape over the gauze pad with the paper tape as shown. Be sure to pinch the tape around the tube. 10.Throw the old dressing, gloves, used swabs and wrappings in the plastic bag. Remove the gloves and put them in the bag. Tie the bag shut and put it in a trash can. 11.Wash your hands with soap and warm water. Rinse and towel dry. Care of Your Drainage Bag ? Empty your drainage bag as often as needed when it is about 2/3 full. Turn the blue knob at the bottom of the bag and drain it into a measuring container. Keep track of the amount of drainage each day. ? You should not clean the drainage bag. You will be sent home with an extra drainage bag to use if there is a leak in the bag or the bag or tubing gets damaged. Special Precautions and Complications ? Keep the drainage bag below the level of your kidneys at all times, to prevent a back flow of urine into the kidneys. ? To prevent sludge and calculi or stones from forming, drink 6 to 8 glasses (8-ounce glass) of fluids a day. ? Keep your nephrostomy catheter drainage bag closed to reduce risk of infection. ? Keep the nephrostomy catheter and drainage bag tubing free of twists, kinks or leaks. When to Call Your Doctor or Medical Team Call right away at Interventional Radiology at for these problems: ? Sudden decrease in the amount of drainage with discomfort at the catheter site ? Blood in or around your catheter ? Fever greater than 101 degrees F ? Persistent blood in the urine ? Nausea and vomiting ? Chills ? Urine that is cloudy or has a strong odor ? Back pain ? Catheter becomes dislodged or broken ? Catheter begins to leak Interventional Radiology Contact Information Keep your appointments to have your nephrostomy catheter changed. Nephrostomy tubes that remain in more than 8-12 weeks need to be changed by Interventional Radiology. Please call [phone] to schedule this appointment and with any questions or concerns you may have regarding the nephrostomy tube. If you have questions or concerns, please call Interventional Radiology at After-Hours or on Weekends, please call the Hospital Instrumental Musician at [phone] and ask them for the Interventional Brick Chimney Supervisor On-Call Ostomy Care Perform colostomy care as instructed by enterostomal therapist. * Discharge Instr - DME* Susie Fuentes RN - 10/18/2024 10:34 AM EST 30 day Event Monitor at Discharge - This will be used to monitor your heart This will be mailed to your home in several days. It will have instructions on how to place. The company who will send the monitor, they will call you to confirm your address prior to sending. Approximate out of pocket cost for monitor: $700 if paid within 7 days of receiving monitor $1000 if paid within 14 days of receiving monitor $1247 if choosing to do a payment plan, $104 per month for 12 months. Please confirm cost when they call to ship you the monitor, subject to change. documented in this [place]12-25-2024 Plan of care note* Plan of Care - Salina Mccain MD, PhD - 10/13/2024 10:22 PM EST Andrew Posada is a 58 y.o. 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 Currently admitted for developing SBO, INOCENCIA and c/f perirectal abscess. Urology c/s for urinary incontinence. Also has bilateral hydronephrosis. Got bilateral NT with IR, good urine output. Urine culture: GNB, on Zosyn. Currently HDS and AF. Recent Labs 10/12/24 0139 10/12/24 1633 10/13/24 0411 10/13/24 1446 WBC 20.89* -- 17.22* -- HGB 10.1* -- 7.9* -- CREATSERUM 3.01* 3.06* 3.01* 2.80* Baseline 0.7 Dispo: will need outpatient FU urology Urology will sign off at this time. Please reach out with any questions or concerns. Salina Mccain MD-PhD Urologic Surgery, PGY-2 Pager: #[phone] [facility]12-25-2024 Consult note* Rajesh Acevedo, - 10/13/2024 4:23 PM ESTAssociated Order(s): IP CONSULT TO NEPHROLOGY Images from the original note were not included. NEPHROLOGY INPATIENT CONSULT NOTE Reason for Consultation: INOCENCIA Current Provider: Hilary Lewis MD Hospital Day: 2 Bed: 97554/A Consult Service: [facility] I saw Andrew Posada at the [facility] on 10/13/2024. History of Present Illness: Andrew Posada is a 58 y.o. male who we have been consulted to see on 10/13/2024 Patient has a past medical history of colon adenocarcinoma s/p lower anterior resection in [place] c/b dehiscence that resulted in end colostomy and rectal stump that became infected abscess requiringI&D in April 2024 and has since been on chemotherapy and radiation therapy. Patient presented from oncologist's office on 10/11 with abnormal labs: leukocytosis to 24.5, creat 3.2, Hgb 7, and BUN 64. He was instructed to present to the [facility] ED for treatment where he received fluid resuscitation and a single dose of Rocephin before being transferred to [facility] for higher level of care. Patient has been on LR gtt at 125 cc/h since arrival to [facility]. Imaging showing developing SBO, hydronephrosis and potential development of presacral/periectal abscess. He was found to have hydronephrosis thought to be due to intra- abdominal abscess. He underwent Nephrostomy tube placement on 10/12/24and has since been draining well. His creatinine on admission here was 3.01 mg/dL (baseline of 0.7 mg/dL). After nephrostomy tube placement, has decreased to 2.80 mg/dL this afternoon. He was seen atbedside. Reports nausea and fatigue. Has NG in place and NPO. Denies any chest pain or shortness ofbreath. Denies any swelling. Past Medical History: Diagnosis Date Colon cancer Past Surgical History: Procedure Laterality Date SIGMOIDOSCOPY W/ BX N/A 06/25/2024 Laterality: N/A; Surgeon: Hilary Lewis MD; Location: [facility] PERIOP DRAINAGE BY CATHETER PERITONEAL/RETROPERITONEAL PERCUTANEOUS W/ IMAGING GUIDANCE Right 05/07/2024 Laterality: Right; Surgeon: Catherine Delatorre II, MD; Location: [facility] INTERVENTIONAL RADIOLOGY (CT) DRAINAGE BY CATHETER PERITONEAL/RETROPERITONEAL PERCUTANEOUS W/ IMAGING GUIDANCE N/A 04/30/2024 Laterality: N/A; Surgeon: Catherine Delatorre II, MD; Location: [facility] INTERVENTIONAL RADIOLOGY (CT) COLECTOMY Scheduled Meds: Acetaminophen 975 mg Oral TID heparin 5,000 Units Subcutaneous Q12H Pantoprazole 40 mg Intravenous Q12H piperacillin-tazobactam 4.5 g Intravenous Q12H IV Infusions: Lactated ringers 125 mL/hr at 10/13/24 1204 No Known Allergies No family history on file. Social History Socioeconomic History Marital status: Spouse name: Not on file Number of children: Not on file Years of education: Not on file Highest education level: Not on file Occupational History Not on file Tobacco Use Smoking status: Never Smokeless tobacco: Never Vaping Use Vaping status: Never Used Substance and Sexual Activity Alcohol use: Not Currently Drug use: Never Sexual activity: Not on file Other Topics Concern Not on file Social History Narrative Not on file Social Determinants of Health Financial Resource Strain: Not on file Food Insecurity: No Food Insecurity (10/11/2024) Hunger Vital Sign Worried About Running Out of Food in the Last Year: Never true Ran Out of Food in the Last Year: Never true Transportation Needs: No Transportation Needs (10/11/2024) PRAPARE - Transportation Lack of Transportation (Medical): No Lack of Transportation (Non-Medical): No Physical Activity: Not on file Stress: Not on file Social Connections: Not on file Intimate Partner Violence: Not At Risk (10/11/2024) Humiliation, Afraid, Rape, and Kick questionnaire Fear of Current or Ex-Partner: No Emotionally Abused: No Physically Abused: No Sexually Abused: No Housing Stability: Unknown (10/11/2024) Housing Stability Vital Sign Unable to Pay for Housing in the Last Year: No Number of Times Moved in the Last Year: Not on file Homeless in the Last Year: No Physical Examination: Vital Signs BP 122/64 (BP Location: Right arm, BP Position: Sitting) Pulse 54 Temp 98.4 F (36.9 C) (Oral) Resp 20 Ht 1.727 m (5' 8) Wt 49.2 kg (108 lb 6.4 oz) SpO2 98% BMI 16.48 kg/m Smoking Status Never I/O last 3 completed shifts: In: 1461.2 [I.V.:1441.2; NG/GT:20] Out: 3160 [Urine:1860; Other:1100] Constitutional: Comfortable-appearing, in NAD HEENT: Normocephalic and atraumatic. Sclera non-icteric. Mucous membranes dry Chest: The lungs are clear without rales, rhonchi nor wheezing. Unlabored breathing, on RA Cardiovascular: bradycardic, no rubs, no peripheral edema Abdominal: Soft, mild tenderness, ND, + ostomy : No CVA tenderness. No Cisneros catheter. + bilateral nephrostomy tubes placed 10/12/24 Extremities: No bilateral lower extremity edema Neurological: awake, alert, oriented, moving all extremities spontaneously Skin: No obvious rash Dialysis Access: none Relevant Data: Lab Results Component Value Date SODIUM 145 10/13/2024 POTASSIUM 3.7 10/13/2024 CHLORIDE 103 10/13/2024 CO2 26 10/13/2024 BUN 48 (H) 10/13/2024 CREATSERUM 2.80 (H) 10/13/2024 GLUCOSE 78 10/13/2024 Lab Results Component Value Date WBC 17.22 (H) 10/13/2024 HGB 7.9 (L) 10/13/2024 HCT 25.5 (L) 10/13/2024 PLATELET 437 (H) 10/13/2024 MCV 95.5 (H) 10/13/2024 Lab Results Component Value Date SPGRVTYUR 1.013 10/12/2024 GLUCOSEURINE Negative 10/12/2024 KETONESURINE Negative 10/12/2024 BLOODURINE Moderate (A) 10/12/2024 NITRITESURIN Negative 10/12/2024 LEUKOCESTUR Large (A) 10/12/2024 WBCURINE > 20 (A) 10/12/2024 RBCURINE 6-10 (A) 10/12/2024 BACTERIAURIN PRESENT (A) 10/12/2024 Lab Results Component Value Date CREATSERUM 2.80 (H) 10/13/2024 CREATSERUM 3.01 (H) 10/13/2024 CREATSERUM 3.06 (H) 10/12/2024 Lab Results Component Value Date CALCIUM 9.5 10/12/2024 PHOSPHORUS 4.3 10/13/2024 Assessment and Plan: Assessment: Mr. Posada is a 58 year old male with colon adenocarcinoma s/p lower anterior resection in [place] c/b dehiscence that resulted in end colostomy and rectal stump that became infected abscess requiring I&D in April 2024 and has since been on chemotherapy and radiation therapy. Nephrology was consulted for INOCENCIA. Non-oliguric INOCENCIA Baseline Cr 0.7 Cr at consult: 3.06 UA with large LE, >20 WBCs, cloudy Etiology likely 2/2 severe [address]re[address]rosis on CT from OSH due to intra-abdominal abscess vs septic/ischemic ATN Azotemia but no uremia Leukocytosis 2/2 UTI vs abscess - gram negative on Culture Anemia Unclear etiology Recommendations: INOCENCIA seems to be post-obstructive with hydronephrosis on imaging. Now s/p NT bilaterally on 10/12/24 are draining adequately with clear colored urine in the bags (490 cc and 580 cc in 24h). Additionally, he appears volume depleted with poor intake prior to admission and now NPO status. Continue IVF with LR at 125ml/hr for today Continue Zosyn to treat for UTI/intrabdominal abscess Monitor for polyuria and post-obtructive diuresis Continue to check Chem daily and monitor lytes Strict I/Os There is no need for TALENT ACQUISITION RELATIONSHIP MANAGER at this time Renal protective measures: Have pharmacy assist with renal dosing of medications, antibiotics in this case Avoid nephrotoxic medications including but not limited to NSAIDs and iodinated IV contrast if possible Maintain MAP >65 at all times Transfuse for Hb < 7 Recommend low potassium, low phos diet for now Avoid hyperglycemia as able Avoid supratherapeutic INR/PTT to minimize the risk of anticoagulant-related nephropathy Please feel free to page/call with any questions or concerns Appreciate Urology recs and rest of care per primary These recommendations are not finalized until signed by an attending staff physician. Thank you forallowing us to participate in the care of this patient. Please feel free to reach out with any questions or concerns. --- Note: This note was transcribed using voice recognition software. Every effort was made to ensure accuracy; however, inadvertent computerized area secretary errors may be present. Please contact us via web-exchange - Nephrology - Catherine 1 Fellow. For urgent/stat calls 5pm to 7am or all day on the weekend, please page the on- call Neph fellow on [employer] ( Internal Medicine> Nephrology > Catherine ) . Rajesh Acevedo, DO Via secure chat (preferred) or pager: [phone] Clinical Nephrology Fellow PGY - 4 Associated attestation - Luis Mgiuel Acuña MD - 10/14/2024 8:40 AM EST Renal Attending Attestation: I have seen and examined the patient and completed a full history and physical independent of Dr. Acevedo on 10/13/24. I reviewed the findings and plan with him and the patient. I have edited the note above and made changes where necessary and agree with the plan as it isnow written. Patient with hx of colon adenocarcinoma s/p resection c/b dehiscence, abscess s/p I&D in April, on chemo/radiation admitted now for INOCENCIA, leukocytosis and anemia. Found to have devloping SBO, UTI and possible intraabdominal abscess causing bilateral hydronephrosis. He is now s/p Bilateral NTs. Nephrology consulted for evaluation of INOCENCIA. Since Neph tubes placed, he has had good urine output and SCr no longer worsening. Slightly improved when seen. He does appear hypovolemic on exam and is NPO. Agree with continue IVF with LR at 125ml/hr. Electrolytes otherwise balanced. I am notsure what chemotherapy he is receiving and whether that could also be contributing to INOCENCIA. For now,appears volume depletion and obstructive nephropathy s/p NTs. Continue IVF. Continue antibiotics with gram negative coverage for UTI and possible abscess. Trend labs daily and monitor for post-obstructive diuresis. Thank you for allowing us to participate in the care of this patient. Please do not hesitate to call us with any question or concerns. We will continue to follow the patient closely. Luis Miguel Smallwood MD [id number] feeder Division of Nephrology [place] Work Phone: 1(532) 576-760012-25-2024 Plan of care note* Plan of Care - Nuria Carey PT - 10/13/2024 8:58 AM EST Problem: PT - General Goals Goal: Supine <-> Sit Transfers - Patient will perform supine to/from sit transfers with independence and without use of hospital bed features in order to improve functional mobility and safety. Outcome: Ongoing Goal: Sit <-> Stand Transfers - Patient will perform sit to/from stand transfers with independence and without an assistive device in order to improve functional mobility and safety. Outcome: Ongoing Goal: Ambulation - Patient will ambulate 500 feet with independence and without an assistive deviceto improve ability to safely navigate home and community. Outcome: Ongoing Goal: Stairs - Patient will ascend/descend 12 stairs with independence, without an assistive device, and railing(s) to improve ability to safely navigate home and community. Outcome: Ongoing [place]12-24-2024 Procedure note* Miguel A Holloway MD - 10/12/2024 7:11 PM ESTAssociated Order(s): GENERAL PROCEDURE PROCEDURE NOTE PROCEDURE PERFORMED BY: Attending Dr. Jennifer Lebron, Dr. Miguel A Holloway (fellow) PROCEDURE DATE: 10/12/24 7:11 PM PRE PROCEDURE DIAGNOSIS: 58 yr old man with history of bilateral obstructive uropathy presenting for bilateral nephrostomy tube placement. POST PROCEDURE DIAGNOSIS: 58 yr old man with history of bilateral obstructive uropathy presenting for bilateral nephrostomy tube placement. PROCEDURE: Bilateral nephrostomy tube placement (10 Fr MPD) FINDINGS: Severe bilateral hydroureteronephrosis. Clear urine encountered. 10 Fr MPD catheters with locking pigtail formed within the renal pelvises. No definite flow into the bladder was observed suggestive of distal ureteral obstruction. CONSENT: Informed consent was obtained prior to the procedure after discussion of the risks, benefits, and alternatives and expected outcomes were discussed with the patient; consent placed in chart. UNIVERSAL PROTOCOL: Preprocedure verification is complete- patient verified and consents confirmed. ANESTHESIA: Moderate sedation and local anesthetic ESTIMATED BLOOD LOSS: Minimal CONDITION: Stable. Patient tolerated procedure well. COMPLICATIONS: None. SPECIMEN: None IMPRESSION/PLAN: Bilateral nephrostomy tube placement. Drain to gravity Routine exchange in 8-10 weeks if still needed at that time. Thank you for allowing Interventional Radiology to participate in this patient's care. Miguel A Holloway MD Integrated Interventional Brick Chimney Supervisor PGY-6 [place] Work Phone: [phone]) 238-329412-24-2024 Procedure note* Miguel A Holloway MD - 10/12/2024 7:11 PM ESTAssociated Order(s): GENERAL PROCEDURE PROCEDURE NOTE PROCEDURE PERFORMED BY: Attending Dr. Jennifer Lebron, Dr. Miguel A Holloway (fellow) PROCEDURE DATE: 10/12/24 7:11 PM PRE PROCEDURE DIAGNOSIS: 58 yr old man with history of bilateral obstructive uropathy presenting for bilateral nephrostomy tube placement. POST PROCEDURE DIAGNOSIS: 58 yr old man with history of bilateral obstructive uropathy presenting for bilateral nephrostomy tube placement. PROCEDURE: Bilateral nephrostomy tube placement (10 Fr MPD) FINDINGS: Severe bilateral hydroureteronephrosis. Clear urine encountered. 10 Fr MPD catheters with locking pigtail formed within the renal pelvises. No definite flow into the bladder was observed suggestive of distal ureteral obstruction. CONSENT: Informed consent was obtained prior to the procedure after discussion of the risks, benefits, and alternatives and expected outcomes were discussed with the patient; consent placed in chart. UNIVERSAL PROTOCOL: Preprocedure verification is complete- patient verified and consents confirmed. ANESTHESIA: Moderate sedation and local anesthetic ESTIMATED BLOOD LOSS: Minimal CONDITION: Stable. Patient tolerated procedure well. COMPLICATIONS: None. SPECIMEN: None IMPRESSION/PLAN: Bilateral nephrostomy tube placement. Drain to gravity Routine exchange in 8-10 weeks if still needed at that time. Thank you for allowing Interventional Radiology to participate in this patient's care. Miguel A Holloway MD Integrated Interventional Brick Chimney Supervisor PGY-6 documented in this encounterCenterville12-24-2024 Nurse Note* Nursing Notes - Bridget Lucero RN - 10/12/2024 7:02 PM EST Interventional Radiology procedure completed with IR Attending Dr. Lebron of percutaneous bilateral nephrostomy tube placement. Pt tolerated procedure with moderate sedation and local numbing agentand IV sedation medications. Pt to travel to [address] post procedure. Post procedure orders in place and include strict 2 hour bedrest [place]12-24-2024 Plan of care note* Plan of Care - Margarita Bill RN - 10/12/2024 5:32 PM EST Problem: Adult Inpatient Plan of Care Goal: Plan of Care Review Outcome: Progressing Goal: Patient-Specific Goal (Individualized) Outcome: Progressing Goal: Absence of Hospital-Acquired Illness or Injury Outcome: Progressing Goal: Optimal Comfort and Wellbeing Outcome: Progressing Goal: Readiness for Transition of Care Outcome: Progressing Problem: Malnutrition Goal: Improved Nutritional Intake Outcome: Progressing [place]12-24-2024 Plan of care note* Plan of Care - Miguel A Holloway MD - 10/12/2024 4:30 PM EST IR plan of care: After discussion with urology, low concern for urinary retention causing hydronephrosis given low post-void residuals. Given significantly elevated Cr, and UA showing concerns for UTI, will opt for bilateral nephrostomy tube this evening under moderate sedation. Plan discussed with urology and surgery. Miguel A Holloway MD Integrated Interventional Brick Chimney Supervisor PGY-6 [facility]12-24-2024 Consult note* Miguel A Holloway MD - 10/12/2024 2:47 PM ESTAssociated Order(s): IP CONSULT TO INTERVENTIONAL RADIOLOGY Interventional Radiology Consult Note [facility] Charge [id number] [facility] Charge [id number] Admission Date: 10/11/2024 Requesting Provider/Service: Anselmo Lindsey MD Reason for Consult: Need for bilateral neph tube placement in the setting of bilateral hydronephrosis HPI: Andrew Posada is a 58 y.o. male with a past medical history of colonic adenocarcinoma s/p LAR presenting with small bowel obstruction and new bilateral hydronephrosis with INOCENCIA. IR consulted for bilateral nephrostomy tube placement. He presented to OSH from yesterday where a CT was performed, which demonstrated small bowel obstruction, and bilateral hydronephrosis, bladder distention and possible pre-sacral abscess. He complainsof urinary retention then incontinence. White count is 20.9. Cr is 3.0, baseline is 0.7. He is afebrile, not tachycardic, and normotensive. Barriers to Consent: None Sedation Anticipated: moderate Diet: DIET NPO with meds Code Status: Full Code Anticoagulation: None Contrast allergy: No Laboratory Data: Lab Results Component Value Date/Time PT 15.4 (H) 10/12/2024 03:54 AM INR 1.2 (H) 10/12/2024 03:54 AM PTT 28.2 10/12/2024 03:54 AM Lab Results Component Value Date WBC 20.89 (H) 10/12/2024 HGB 10.1 (L) 10/12/2024 HCT 31.5 (L) 10/12/2024 PLATELET 557 (H) 10/12/2024 MCV 93.2 10/12/2024 Lab Results Component Value Date SODIUM 139 10/12/2024 POTASSIUM 5.6 (H) 10/12/2024 CHLORIDE 99 10/12/2024 CO2 25 10/12/2024 BUN 60 (H) 10/12/2024 CREATSERUM 3.01 (H) 10/12/2024 GLUCOSE 112 (H) 10/12/2024 Lab Results Component Value Date/Time GFR 23 (L) 10/12/2024 01:39 AM Allergies: No Known Allergies Impression/ plan: Mr. Posada is a 58 yr old man with hx of colonic adenocarcinoma s/p low anterior abdominal resection presenting with small bowel obstruction and bilateral hydronephrosis with INOCENCIA. -Imaging reviewed which does not demonstrate a clear etiology of the obstruction. May be due to mass effect from obstructed bowel vs. Urinary retention or obstruction related to presacral collection/other. At this time would recommend NG tube for bowel decompression. Will discuss with urology regar ding possible utility of Cisneros catheter -After this has been complete, would recommend repeat AM Cr and renal ultrasound to assess kidney function/ and hydronephrosis. If there is persistent hydronephrosis and lack of improvement in renal function, then will plan on bilateral nephrostomy tube placement tomorrow -However, if there is change in clinical status that would affect urgency of the procedure, please reach out to IR network operations specialist. -please keep NPO at midnight. - INR <1.5, platelets >50, hemoglobin >8.0. Consult discussed with colorectal surgery from the requesting team on 10/12/2024 at 1:30 PM Consult reviewed with IR Attending Dr. Lebron who agrees with the above plan. Miguel A Holloway MD 10/12/2024 2:48 PM Important Notes Procedures are performed with either moderate sedation or anesthesia services. Both require the patient to be NPO (which includes tube feeds). Patients will need to lie flat comfortably for the duration of the procedure. Please be aware that patients requiring anesthesia services will require additional coordination which may increase the time from consult to procedure. Questions For questions regarding [facility] Inpatients please call [phone]. For questions regarding [facility] Inpatients please call [phone]. For questions regarding Biopsies, please call [phone]. [place]12-24-2024 Nurse Note* Nursing Notes - Margarita Bill RN - 10/12/2024 2:00 PM EST Placed NG in pt and educated pt bridling the NG pt refused it and later on pt NG pull out when getting up. RN push back and again educated pt why bridling would be best for him but again he refused it also educated pt at bedside [place]12-24-2024 Plan of care note* Plan of Care - Toshia Galan RD - 10/12/2024 11:12 AM EST Problem: Malnutrition Goal: Improved Nutritional Intake Outcome: Progressing NUTRITION CONSULT Nutrition Recommendations and Plan of Care: 1. Diet advancement as able pending improvement bowel obstruction 2. Will send oral nutrition supplements pending diet order: Ensure Clear (240 kcal, 8 g pro) TID with meals when on CLD Ensure Plus (350 kcal, 13 g pro) TID with meals when FLD/Regular diet. 3. Bowel regimen per primary team 4. If tube feeds become part of plan of care, recommend Nepro at 40 ml/hr (1728 kcal, 78 g pro) 5. If unable to enterally feed in the next 48-72 hours, would consider initiation of TPN in the setting of prolonged NPO status / severe protein calorie malnutrition 6. RD will continue to follow Per HPI: Andrew Posada is a 58 y.o. male with a history of colonic adenocarcinoma s/p LAR in [place] c/b dehiscence requiring end colostomy and rectal stump abscess s/p IR drainage in April 2024 now after completion of chemotherapy and radiation presenting as direct admit from OSH after labs showing leukocytosis and INOCENCIA with imaging showing developing SBO, hydronephrosis and potential developmentof intraabdominal abscess. Received a Nutrition Consult for Assessment Assess for malnutrition, possible need for TPN. Past History Past Medical History Past Medical History: Diagnosis Date Colon cancer Past Surgical History Past Surgical History: Procedure Laterality Date SIGMOIDOSCOPY W/ BX N/A 06/25/2024 Laterality: N/A; Surgeon: Hilary Lewis MD; [place] [facility] [place] PER[place]OP DRAINAGE BY CATHETER PERITONEAL/RETROPERITONEAL PERCUTANEOUS W/ IMAGING GUIDANCE Right 05/07/2024 Laterality: Right; Surgeon: Catherine Delatorre II, MD; Location: [facility] INTERVENTIONAL RADIOLOGY (CT) DRAINAGE BY CATHETER PERITONEAL/RETROPERITONEAL PERCUTANEOUS W/ IMAGING GUIDANCE N/A 04/30/2024 Laterality: N/A; Surgeon: Catherine Delatorre II, MD; Location: [facility] INTERVENTIONAL RADIOLOGY (CT) COLECTOMY Nutrition History Pt seen at bedside this morning. He is awake and alert. NG tube in place. On room air. Getting LR at 125 ml/hr. Pt states his appetite has been pretty good the past few weeks / months. Last PO intakewas Wednesday 10/10 at noon. On most days, he has 2 eggs and toast at breakfast. Lunch and supper varydepending on what is available but he does consistently eat three meals per day. He is unsure of any weight changes - when informing him of the current weight on file (108 lbs) he states that that his very low for him. Previously had weighed in at 111 lbs and was worried then. He has no trouble chewing / swallowing. No known food allergies or intolerances. Discussed nutrition POC including NPO for now with diet / TF advancement pending MD recommendations. If prolonged NPO status anticipated, would recommend TPN. Per H&P He has tried to keep up with his nutrition but endorses that he has lost weight recently. Current Diet Orders Procedures DIET NPO with meds Standing Status: Standing Number of Occurrences: 1 Order Specific Question: NPO Meds: Answer: with meds Height/Weight Evaluation Ht: 5' 8/172.7 cm Wt: 108#/49.2 kg IBW: 154#/70 kg %IBW: 70% BMI: 16.48 kg/(m^2) Weight History: medical record suggests pt with 7 lb wt loss in 5-6 weeks (6% change), and 18 lb wtloss in 3 months (14% change) Wt Readings from Last 250 Encounters: 10/11/24 49.2 kg (108 lb 6.4 oz) 09/01/24 52.2 kg (115 lb) 06/25/24 57.2 kg (126 lb 3.2 oz) 06/22/24 55.3 kg (122 lb) 05/20/24 55.3 kg (122 lb) 05/12/24 52.3 kg (115 lb 6.4 oz) 05/03/24 52.9 kg (116 lb 11.2 oz) Tmax: 36.9 BP: 140/88 Pulse (Heart Rate): 81 Oxygen Therapy: room air Intake/Output: 1147.4/90 Net +1.0L since admission Meds reviewed: tylenol, heparin, zosyn, lokelma, vanc Continuous: LR at 125 ml/hr Labs Reviewed: WBC/Hgb/Hct/Plts: 20.89/10.1/31.5/557 (10/12 139) Na/K+/Phos/Mg/Ca: 139/5.6/6.1/2.3/9.5 (10/12 139) Bun/Creat/Cl/CO2/Glucose: 60/3.01/99/25/112 (10/12 139) PE: Resp: no SOB GI: BM x 1 so far today; NG tube in place (250 ml output so far today) Skin: Elder Score: 21 Extremities: no edema Nutrition Focused Physical Exam: Nutrition Focused Physical Exam Completed?: completed Subcutaneous Fat Loss: Orbital Region (Orbital Fat Pads): moderate Cheek Region (Buccal Fat Pads): moderate Upper Arm Region (Triceps): severe Thoracic and Lumbar Region (Ribs, Lower Back, Midaxillary Line): deferred Muscle Wasting: [place] Region (Temporalis Muscle): severe Clavicle Bone Region (Pectoralis Major, Trapezius Muscles): severe Shoulder and Acromion Process Region (Deltoid Muscle): severe Dorsal Hand (Interosseous Muscle): moderate Scapular Bone Region (Trapezius, Supraspinatus, Infraspinatus Muscles): deferred Anterior Thigh and Patellar Region (Quadriceps Muscles): severe Posterior Calf Region (Gastrocnemius Muscle): severe Estimated Nutrition Needs Wt used: 49.2 kg - CBW EEN (kcal/d): 9216-5332 (30-35kcal/kg CBW) EPN (g pro/d): 59-73 (1.2-1.5g/kg CBW) EFN (ml/d): 1476 (30 ml/kg CBW) Assessment Malnutrition Statement Does the patient meet criteria for malnutrition: Yes Etiology of Malnutrition: Chronic Illness Malnutrition Severity: Severe Protein-Calorie Malnutrition (POA) as evidenced by clinical characteristics: Weight Loss: > 7.5% in 3 months Subcutaneous Fat Loss: Moderate Muscle Mass Loss: Severe *Based on The Academy and ASPEN Indicators to Diagnose Malnutrition (AAIM) criteria (2012) Toshia Galan RD, LD, CNSCPager: #[phone] [facility]12-24-2024 Consult note* Salina Mccain MD, PhD - 10/12/2024 2:16 AM ESTAssociated Order(s): IP CONSULT TO SURGERY - UROLOGY UROLOGY CONSULT NOTE Patient: Andrew Posada Consult Reason: Urinary incontinence after LAR History of Present Illness Andrew Posada is a 58 y.o. male with a past medical history of colonic adenocarcinoma s/p LAR March 2024 in [place] c/b dehiscence requiring end colostomy and rectal stump abscess s/p IR drainage in April 2024 s/p chemoradiation. He presented today to his oncologist for routine follow-up where labs showed leukocytosis to 24.5, Hgb 7, creat 3.2, and BUN 64. He was instructed to present to the [facility] ED for treatment where he received fluid resuscitation and a single dose of Rocephin before being transferred to [facility] for higher level of care. Imaging showing developing SBO, hydronephrosis and potential development of presacral/periectal abscess. Continues here on abx with Zosyn. On interview, patient has been having urinary incontinence since March 2024. Initially after surgeryhad retention and was on tamsu but since then incontinent. Uses up to 5 pads during day and up to 5pads during nighttime. Incontinence pretty much constantly and not associated with stress or urge. No dysuria, no hematuria. He has denied fevers and chills but does endorse having reduced ostomy output. Had diarrhea a couple of days ago. He has tried to keep up with his nutrition but endorses thathe has lost weight recently. No flank pain. Currently HDS and AF. - UA w bacteria, blood, LE, neg nitrites - PVR 33cc Review of System (Negative unless specified in HPI) Medical History MEDICAL HISTORY: Past Medical History: Diagnosis Date Colon cancer SURGICAL HISTORY: Past Surgical History: Procedure Laterality Date SIGMOIDOSCOPY W/ BX N/A 06/25/2024 Laterality: N/A; Surgeon: Hilary Lewis MD; Location: [facility] PERIOP DRAINAGE BY CATHETER PERITONEAL/RETROPERITONEAL PERCUTANEOUS W/ IMAGING GUIDANCE Right 05/07/2024 Laterality: Right; Surgeon: Catherine Delatorre II, MD; Location: [facility] INTERVENTIONAL RADIOLOGY (CT) DRAINAGE BY CATHETER PERITONEAL/RETROPERITONEAL PERCUTANEOUS W/ IMAGING GUIDANCE N/A 04/30/2024 Laterality: N/A; Surgeon: Catherine Delatorre II, MD; Location: [facility] INTERVENTIONAL RADIOLOGY (CT) COLECTOMY ALLERGIES No Known Allergies MEDICATIONS: Current Facility-Administered Medications Medication Dose Route Frequency Provider Last Rate Last Admin Acetaminophen (TYLENOL) tablet 975 mg 975 mg Oral TID Kevan Jasso MD Heparin injection 5,000 Units 5,000 Units Subcutaneous Q12H Kevan Jasso MD HYDROmorphone (DILAUDID) injection 0.2 mg 0.2 mg Intravenous Q3H PRN Kevan Jasso MD Or HYDROmorphone (DILAUDID) injection 0.5 mg 0.5 mg Intravenous Q3H PRN Kevan Jasso MD Lactated ringers IV solution Intravenous Continuous Kevan Jasso MD 125 mL/hr at 10/12/24 0607 Rate Verify at 10/12/24 0607 Melatonin tablet 6 mg 6 mg Oral QHS PRN Kevan Jasso MD Ondansetron (ZOFRAN) tablet 4 mg 4 mg Oral Q6H PRN Kevan Jasso MD Or Ondansetron 4mg/2ml (ZOFRAN) injection 4 mg 4 mg Intravenous Q6H PRN Kevan Jasso MD oxyCODONE (ROXICODONE) tablet 5 mg 5 mg Oral Q4H PRN Kevan Jasso MD Or oxyCODONE HCl (ROXICODONE) tablet 10 mg 10 mg Oral Q4H PRN Kevan Jasso MD Piperacillin-tazobactam (ZOSYN) 4.5 g in dextrose premix IVPB 4.5 g Intravenous Q8HNS Kevan Jasso MD Stopped at 10/12/24 0401 Prochlorperazine (COMPAZINE) tablet 5 mg 5 mg Oral Q6H PRN Kevan Jasso MD Or Prochlorperazine (COMPAZINE) injection 5 mg 5 mg Intravenous Q6H PRN Kevan Jasso MD Sodium chloride 0.9% IV solution 250 mL 250 mL Intravenous PRN Kevan Jasso MD Sodium Zirconium Cyclosilicate (LOKELMA) powder 10 g 10 g Oral Once Kevan Jasso MD FAMILY MEDICAL HISTORY: his family history is not on file. SOCIAL HISTORY: he reports that he has never smoked. He has never used smokeless tobacco. He reports that he does not currently use alcohol. He reports that he does not use drugs. Objective VITALS: Temp: [97.6 F (36.4 C)-98.1 F (36.7 C)] 97.8 F (36.6 C) Pulse (Heart Rate): [80-88] 81 Resp Rate: [18] 18 BP: (128-149)/(74-97) 140/88 O2 Sat (%): [96 %-97 %] 96 % Weight: [49.2 kg (108 lb 6.4 oz)] 49.2 kg (108 lb 6.4 oz) O2 Sat (%): 96 % (10/12 0758) O2 Device: room air (10/12 075) PHYSICAL EXAM General: Awake, alert, in NAD. Resting comfortably in bed. Neuro: AOx4. Cranial Nerves II-XII grossly intact. Cardiovascular: Hemodynamically stable. Regular rate as evaluated by palpation of pulse. Pulmonary: Normal respiratory effort. Abdomen: Soft, non-tender, non-distended, no rebound/guarding/rigidity or other signs of peritonitis, Ostomy with gas and stool in appliance Extremities: Warm and well perfused with gross sensation and motor intact LABS: Recent Labs 10/12/24 0139 WBC 20.89* HGB 10.1* PLATELET 557* LACT 1.3 Recent Labs 10/12/24 0139 SODIUM 139 POTASSIUM 5.6* CHLORIDE 99 CO2 25 BUN 60* CREATSERUM 3.01* MAGNESIUM 2.3 PHOSPHORUS 6.1* Recent Labs 10/12/24 0354 PT 15.4* PTT 28.2 INR 1.2* Recent Labs 10/12/24 0139 PREALBUMIN 12* IMAGING CT ABDOMEN (OUTSIDE IMAGE) Result Date: 10/12/2024 Outside Imaging Study for Support of Clinical Care. This study was sent from an outside facility [facility] for support of clinical care of the patient within the [facility] system. MRI RECTUM WITHOUT AND WITH CONTRAST Result Date: 10/07/2024 EXAM: MRI RECTUM WITHOUT AND WITH CONTRAST, 10/06/2024 16:52 PM CLINICAL INDICATIONS: rectal cancers/p chemoradiation C20:Malignant neoplasm of rectum COMPARISON: CT abdomen pelvis from May 20, 2024 TECHNIQUE: Multiplanar, multisequence MRI scanning of the rectum was performed before and after IV contrast administration. FINDINGS: Gastrointestinal: Postoperative changes from low anterior resection with rectal stump and left lower quadrant colostomy. Ostomy is only seen on the wider [id number] images. In the upper aspect of the rectal stump, there is a polypoid lesion measuring 1.8 x 1.6x 1.3 cm (; 01/12), previously 3.5 x 2.5 cm. This mass restricts diffusion (). This presumably corresponds with the area seen on endoscopy, which was biopsy-proven rectal adenocarcinoma. Thesignal abnormality associated with this tumor extends to the anterior rectal wall with suspected tiny areas of extension beyond the wall (). Perirectal fluid collections with adjacent enhancement and internal diffusion restriction, concerning for abscesses. The first is more inferior and measures 3.0 x 1.8 x 2.7 cm (; 01/10), previously 2.8 x 1.3 x 4.4 cm. This appears to communicate with the upper rectal stump (01/08). A second collection measures 2.1 x 1.1 x 2.0 cm (; 01/14), and was either not well delineated or not present previously. There is extensive scarring and inflammation near the upper rectum with associated tethering, which may be due to prior surgery and radiation as well as a component of inflammatory changes from the abscesses. Lymph nodes: No definite lymphadenopathy Bladder: Underdistended. There is thickening of both distal ureters (13/26) with upstream partially visualized bilateral hydroureteronephrosis. Other pelvic organs: Prostatic heterogeneity, probably treatment related. Body wall: Postoperative changes with partially visualized ostomy. Bones: Heterogeneous marrow signal, nonspecific. No definite osseous lesion. IMPRESSION: 1. The polypoid lesion in the rectal stump, which represents biopsy- proven recurrent rectal adenocarcinoma, has decreased in size compared to the May 2024 CT. 2. No lymphadenopathy. 3.Perirectal abscesses, one of which is stable, though the other is new or increased in conspicuity. The more inferior collection appears to communicate with the upper rectal stump. 4. Scarring and inflammation near the superior aspect of the rectal stump, likely representing a combination of postoperative scarring, posttreatment changes, and reactive inflammation from the abscess. 5. Left lower quadrant colostomy, not fully evaluated on this exam. ABDOMEN 1 VIEW PORTABLE XR CHEST 1 VIEW PORTABLE MICRO No results found for the last 90 days. Assessment and Plan Andrew Posada is a 58 y.o. 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 Currently admitted for developing SBO, INOCENCIA and c/f intraabdominal infection/abscess. Urology c/s for urinary incontinence.Also has bilateral hydronephrosis. - FU Urine culture - Empiric abx - Would recommend bl NT, stents would aggravate incontinence - Urology will continue to follow. Please do not hesitate to reach out if there are any additional questions or concerns regarding this patient's care. - Dispo: will need outpatient FU w urology, please place referral Patient will be discussed with Dr. Meadows, attending network operations specialist. Plans are not considered finalized until the attending has attested the note. Salina Mccain MD, PhD Urologic Surgery, PGY-2 [id number] 10/12/24 Please page the Urology consult pager with questions or concerns (Found in QGenda) [facility] --> Urology --> Consults [facility] --> Urology --> [facility] ALL URGENT ISSUES SHOULD BE PAGED TO THE ABOVE PAGER - Epic chat is not a reliable method of urgent communication with a surgical service at any time. - The person who wrote this note may be off service, post call, or otherwise unavailable. [facility] Work Phone: [phone]) 244-314312-23-2024 Nurse Note* Nursing Notes - Lakia Dominguez RN - 10/11/2024 11:23 PM EST On admission to [facility] room [address], from outside facility Pt. Arrived via private transportation A&Ox3 denies pain, chest pain, or SOB. Pt. VS are WDL, and a dual RN initial assessment of skin condition was performed by Lakia Dominguez RN and Mele Vo RN. Skin Assessment: Skin within defined limits:Yes Elder Score: 21 LDA Added:Yes Lakia Dominguez RN [facility]11-13-2024 History of Present illness Narrative* Hilary Lewis MD - 09/01/2024 2:30 PM EST Images from the original note were not included. Attending Attestation I have seen and examined the patient on 09/01/2024. I reviewed the RN ORTHOPEDIC's note and agree with the findings and plan of care as documented. My additions and revisions are included. I was present for the entire exam. I saw and evaluated the patient with Shruthi Welch. I provided a substantive portion of the care for this patient. I personally performed all aspects of the medical decision making for this encounter. I have reviewed and verified this documentation and it accurately reflects our care. Presentation: generally weak and lost some weight. Exam: well Other records reviewed: Dr. Leija note 08/17/[address] Ho A/ doing OK P/ Will recheck MRI I would recommend that he continue chemotherapy, given that he hasn't really had adjuvant chemotherapy. (Please note that portions of this note were completed with a voice recognition program. Efforts were made to edit the dictation but occasionally words are mis-transcribed.) * Shrtuhi Capri Welch, VARIETY PERFORMER-GARMENT TAG STRINGER - 09/01/2024 2:30 PM EST COLORECTAL SURGERY CLINIC NOTE BRIEF HISTORY: 58 y.o. male who was diagnosed with cancer (exact pathology and location unknown) and had a low anterior resection at an outside hospital which was complicated by intra-abdominal abscesses and a positive distal margin.. Imaging suggests persistent disease in the rectal stump, for which he had a flexible sigmoidoscopy and adjuvant chem and radiation. 06/25/24 Flex Sig:His rectal stump is about 6 cm long. At the superior aspect of that is a large tumor. It was about 2 x 4 cm in size consistent with a rectal cancer. On endoscopic and on digital exam he has about 1 cm below the tumor and above the anorectal ring. 09/01/24: Chemoradiation 07/12---08/17/24. No repeat imaging since completing chemoradiation. Feeling week and deconditioned, continues to do chores. Reports decreased PO intake, weight has been fluctuating between 115--120 lbs. Drinking ensure and taking 1 senna each night. No pain or discomfort. O: Physical Exam: Vitals: 09/01/24 1427 BP: 117/70 Pulse: (!) 48 Weight: 52.2 kg (115 lb) Height: 1.727 m (5' 8) Body mass index is 17.49 kg/m . General: No acute distress. Alert and oriented x 3. HEENT: No scleral icterus Cardiac: Regular rate and rhythm. Pulmonary: Equal chest rise, unlabored breathing. Abdomen: Soft, nontender, nondistended. LLQ colostomy Extremities: No edema. Warm and well-perfused. Normal gait. MSK: No gross deformities. Neurologic: No focal deficits. A/P: Andrew Posada is a 58 y.o. male with rectal cancer s/p chemoradiation 07/12---08/17/24, and feeling quit weak and deconditioned. Recommend he continue drinking Ensure daily and increase proteinand fluid intake. He should also continue daily senna. Will plan for MRI in 1 month. We also discussed continuing chemo versus surgery, in which he would like to avoid additional surgery if possible.Recommend he continue chemo, and Dr. Lewis will contact Mr. Posada's local oncologist, Dr. Leija/Dr. Ho with these recommendations. Will follow- up with Mr. Posada after MRI. He agrees with this plan and will call or MyChart if needs arise. BETHANIE Nye [facility] Instructions* Patient Instructions* Lisandra Castillo - 09/01/2024 2:30 PM EST Magnetic Resonance Imaging (MRI) Date: 10/06/24 Arrival Time: 350pm Location: [place] [address] If you have questions or need to reschedule, please call us at [phone] If pictures are being taken of your liver or pancreas, do not eat or drink for 4 hours before the test. Outpatient Visitor Policies Visitors to all hospital locations must have a hospital-provided visitor sticker visible at all times while in the building Wear a hospital-provided mask over nose AND mouth at all times, if you're experiencing any upper respiratory symptoms (ex. cough, sore throat, fever, etc.) Practice good hand hygiene Visitors are allowed for patients with suspected or confirmed COVID-19 Questions or concerns about visitation policies If you have questions or concerns, you can contact our Patient Experience team at: [facility], [facility], [facility]: [phone] [facility]: [phone] [facility]: [phone] [facility]: [phone] Magnetic Resonance Imaging (MRI) is a safe, painless way for your doctor to look into your body. The pictures taken during the test look at soft tissue and bones. They provide information that can help your doctor diagnose the problem that you are having. The test uses radio waves and a magnetic field to take pictures of the soft tissues and bones. The length of your MRI can vary, but most take between 30 to 90 minutes. To Prepare You will need to remove all metal items such as watch, hairpins, bra, jewelry, coins and piercings from your body. Please leave valuable belongings at home. Leave your credit cards at home because the strong magnets in the room could change the card so it will not work. If you wear any kind of medicine patch, such as a nicotine or nitroglycerin patch, they will need to be removed for this test. Bring a new patch that you can put on after your test. Bring a list of any medicines you take. Include prescription and over the counter medicines, and herbal and vitamin supplements. Please arrive 15 minutes before your appointment time. There are many questions we need to ask before you have the MRI. When you arrive, you will be asked to fill out a form for your insurance and billing information. Remember to bring your insurance card(s) with you. We will ask you to fill out a form about your health history. Please let us know right away if you: Are or could be Are Weigh over 300 pounds Have a cardiac pacemaker Have aneurysm clips Have any type of implanted device such as a pump or stimulator Have metal shrapnel or fragments inside your body Please bring any cards you may have for any implant in your body. You will be asked to change into a hospital gown. A locker is provided for your clothes and belongings. You will need to remove dentures for some of the tests. Please do not bring the below into the test room: Jewelry Credit cards Pocket knife Money clip [place] Watch An IV may be started in your arm for IV medicine called contrast. IV contrast is needed to give better pictures on certain studies only. During the Test During the MRI, you will lie on a padded table in the middle of a long tube-like machine. If being in a close space frightens you, talk to your doctor. Your doctor may give you some medicine to bringwith you to help you Relax. You will be positioned comfortably. Be as still as you can during your test. You may be asked to hold your breath. The table will then move into the opening of the MRI machine. It will stop when that part of your body to be tested is in the center. Please stay as quiet as you can during the test. You will hear a sound like a drum beat as the pictures are taken. You will be given earplugs to wear. The technologist will not stay with you in the room. You will be able to hear and see the staff and they will check on you through an intercom and window. If you become uncomfortable at any time, tell the technologist. Staff will be right there to help you. When the testis done, the technologist will take you to an area where you may change into your clothes and collect your things to go home. If you are a patient in the hospital, you will be taken to your room. Your MRI will be read by a specially trained radiologist, and the results will be sent to your doctor in the next few days. If you have questions about your MRI, please ask your technologist or any staffmember. After Your Test If you had contrast medicine, drink 6 to 8 (8-ounce) cups of liquid to flush the contrast out of your body. Good liquids for most people to drink are water, milk and juice. Limit the amount of caffeine you drink. Caffeine may be found in coffee, tea, soda, sports drinks and foods. You may drive home after the test if you were not given medicine to help you relax during the test.If you were given sedative medicine to help your relax, an adult must be with you to take you home.It is not safe for you to drive or leave alone. [facility] Surgery Postoperative evaluation and management note* Op Note - Hilary Lewis MD - 06/25/2024 12:26 PM EDT Pre-op Diagnosis: Rectal cancer Post-op Diagnosis: Rectal cancer Procedure: Flexible sigmoidoscopy with biopsy Staff: Hilary Lewis MD, who was present and scrubbed throughout the procedure Assist: Dr. Miguel A Hammond, resident Service: Colorectal Surgery Anesthesia: MAC Anesthesiologist: Allen Dudley MD MOLD HOLDER: JER BarrientosMOLD HOLDER; BEE Combs EBL: Minimal Complication: None Counts: Reported as correct. No foreign bodies identified on inspection of the anus Specimens: Rectal cancer Statement of Medical Necessity Mr. Posada is a 58 y.o. male with a history of rectal cancer. He underwent a low anterior resection elsewhere which was complicated by intra-abdominal abscesses and a positive distal margin. We havebeen able to resolve that was abscesses but on imaging he had the suggestion of persistent disease in the rectal stump and so we recommended flexible sigmoidoscopy to evaluate for that.. The risks, benefits and alternatives of surgery were explained to him and he desired to proceed. Operation After informed consent was obtained, Mr. Posada was brought to the operating room. he was put to sleep and then positioned on his side on the operating table. Pressure points were padded. We inserted the flexible sigmoidoscope and introduced it into the rectum. His rectal stump as about6 cm long. At the superior aspect of that is a large tumor. It was about 2 x 4 cm in size consistent with a rectal cancer. We did take some biopsies of this to get us some additional tissue in case we need special stains. On endoscopic and on digital exam he has about 1 cm below the tumor and abovethe anorectal ring. I do think he could have a double stapled anastomosis if we were able to we excised the stump at some point in the future. The patient tolerated the procedure well. he was covered with dry dressings and taken to the recovery room. [facility] Miscellaneous Notes* Op Note - Hilary Lewis MD - 06/25/2024 12:26 PM EDT Pre-op Diagnosis: Rectal cancer Post-op Diagnosis: Rectal cancer Procedure: Flexible sigmoidoscopy with biopsy Staff: Hilary Lewis MD, who was present and scrubbed throughout the procedure Assist: Dr. Miguel A Hammond, resident Service: Colorectal Surgery Anesthesia: MAC Anesthesiologist: Allen Dudley MD MOLD HOLDER: JER BarrientosMOLD HOLDER; BEE Combs EBL: Minimal Complication: None Counts: Reported as correct. No foreign bodies identified on inspection of the anus Specimens: Rectal cancer Statement of Medical Necessity Mr. Posada is a 58 y.o. male with a history of rectal cancer. He underwent a low anterior resection elsewhere which was complicated by intra-abdominal abscesses and a positive distal margin. We havebeen able to resolve that was abscesses but on imaging he had the suggestion of persistent disease in the rectal stump and so we recommended flexible sigmoidoscopy to evaluate for that.. The risks, benefits and alternatives of surgery were explained to him and he desired to proceed. Operation After informed consent was obtained, Mr. Posada was brought to the operating room. he was put to sleep and then positioned on his side on the operating table. Pressure points were padded. We inserted the flexible sigmoidoscope and introduced it into the rectum. His rectal stump as about6 cm long. At the superior aspect of that is a large tumor. It was about 2 x 4 cm in size consistent with a rectal cancer. We did take some biopsies of this to get us some additional tissue in case we need special stains. On endoscopic and on digital exam he has about 1 cm below the tumor and abovethe anorectal ring. I do think he could have a double stapled anastomosis if we were able to we excised the stump at some point in the future. The patient tolerated the procedure well. he was covered with dry dressings and taken to the recovery room. * Brief Op Note - Hilary Lewis MD - 06/25/2024 12:22 PM EDT Andrew Posada ([id number]) PRE OPERATIVE DIAGNOSIS Malignant neoplasm of rectum [C20] POST OPERATIVE DIAGNOSIS Malignant neoplasm of rectum [C20] PROCEDURE PERFORMED Procedure(s) (LRB): SIGMOIDOSCOPY DIAGNOSTIC (N/A) with biopsy PRIMARY CLOSURE N/A INTRAOPERATIVE FINDINGS No significant abnormalities SURGEON Surgeons and Role: * Hilary Lewis MD - Primary ANESTHESIOLOGIST Anesthesiologist: Allen Dudley MD MOLD HOLDER: BEE Barrientos; BEE Combs SURGICAL STAFF Channel Opener Outsoles: Barbie Ramirez RN Relief Scrub: Joy Bautista RN Scrub Person: Luis A Ledesma Resident Assisting: Miguel A Hammond MD COMPLICATIONS None ESTIMATED BLOOD LOSS Minimal SPECIMENS below ID Type Source Tests Collected by Time Destination 1 : rectal cancer Permanent TISSUE SURG PATH REQUEST Hilary Lewis MD 06/25/2024 1157 No, this procedure was not performed with the intent to treat rectal cancer. Hilary Lewis MD June 25, 2024 12:22 PM [facility] Discharge instructions* Discharge Instructions* Hilary Lewis MD - 06/25/2024 12:23 PM EDT Urination Surgery on your anus can make it difficult to urinate in the first few days after surgery. If you are not able to urinate at all, that can be harmful to your kidneys and must be treated. If you are not able to urinate after 6 hours, or if you feel strongly like you need to but cannot, you should beseen at an urgent care center. If you are near [place], go to one of the [facility] Care[facility]ers: [email or web address] If you are far from [place], go to an urgent care in your area. They may place a catheter into your bladder for a few days. If so, please call my office on the next business day and we will help you arrange to have it removed. Bowel Movements You should continue to eat normally. Your bowels should continue to move. Take the docusate to prevent constipation as long as you are taking the pain medicine. If you do not have a bowel movement every couple of days, take 2 tablespoons of milk of magnesia as needed. YOU SHOULD SEEK MEDICAL ATTENTION IMMEDIATELY, EITHER HERE OR AT THE NEAREST EMERGENCY DEPARTMENT, IF ANY OF THE FOLLOWING OCCURS: Bleeding gets worse. Abdominal (belly) pain develops. You vomit constantly or vomit blood or material that looks like coffee grounds. Fever (temperature higher than 100.4 F / 38 C), or shaking chills develop. You get lightheaded or short of breath. [facility] Surgery Postoperative evaluation and management note* Brief Op Note - Hilary Lewis MD - 06/25/2024 12:22 PM EDT Andrew Posada ([id number]) PRE OPERATIVE DIAGNOSIS Malignant neoplasm of rectum [C20] POST OPERATIVE DIAGNOSIS Malignant neoplasm of rectum [C20] PROCEDURE PERFORMED Procedure(s) (LRB): SIGMOIDOSCOPY DIAGNOSTIC (N/A) with biopsy PRIMARY CLOSURE N/A INTRAOPERATIVE FINDINGS No significant abnormalities SURGEON Surgeons and Role: * Hilary Lewis MD - Primary ANESTHESIOLOGIST Anesthesiologist: Allen Dudley MD MOLD HOLDER: Louie Cardenas APRN-MOLD HOLDER; Sunny Chino APRN-MOLD HOLDER SURGICAL STAFF Channel Opener Outsoles: Barbie Ramirez RN Relief Scrub: Joy Bautista RN Scrub Person: Luis A Ledesma Resident Assisting: Miguel A Hammond MD COMPLICATIONS None ESTIMATED BLOOD LOSS Minimal SPECIMENS below ID Type Source Tests Collected by Time Destination 1 : rectal cancer Permanent TISSUE SURG PATH REQUEST Hilary Lewis MD 06/25/2024 1157 No, this procedure was not performed with the intent to treat rectal cancer. Hilary Lewis MD June 25, 2024 12:22 PM [place]09-06-2024 Nurse Surgical operation note* Barbie Ramirez RN - 06/25/2024 11:57 AM EDT Scope in 1105 Scope out 1201 [place]09-06-2024 Nurse Note* Barbie Ramirez RN - 06/25/2024 11:57 AM EDT Scope in 1105 Scope out 1201 * Barbie Ramirez RN - 06/25/2024 11:39 AM EDT Scope 0403 [facility] Surgical operation note* Barbie Ramirez RN - 06/25/2024 11:39 AM EDT Scope 0403 [place]09-06-2024 History and physical note* Hilary Lewis MD - 06/25/2024 11:24 AM EDT HPI: 58 y.o. yo male here for flexible sigmoidoscopy New symptoms: none Past Medical History: Diagnosis Date Colon cancer Past Surgical History: Procedure Laterality Date DRAINAGE BY CATHETER PERITONEAL/RETROPERITONEAL PERCUTANEOUS W/ IMAGING GUIDANCE Right 05/07/2024 Laterality: Right; Surgeon: Catherine Delatorre II, MD; Location: [facility] INTERVENTIONAL RADIOLOGY (CT) DRAINAGE BY CATHETER PERITONEAL/RETROPERITONEAL PERCUTANEOUS W/ IMAGING GUIDANCE N/A 04/30/2024 Laterality: N/A; Surgeon: Catherine Delatorre II, MD; Location: [facility] INTERVENTIONAL RADIOLOGY (CT) COLECTOMY History reviewed. No pertinent family history. Social History Tobacco Use Smoking status: Never Smokeless tobacco: Never Vaping Use Vaping status: Never Used Substance Use Topics Alcohol use: Not Currently Drug use: Never ROS: CP: No SOB: No has No Known Allergies. Current Facility-Administered Medications: Lactated ringers IV solution, , Intravenous, Continuous, Hilary Lewis MD, Last Rate: 50 mL/hr at06/25/24 1025, Restarted at 06/25/24 1054 Exam BP 136/81 (BP Location: Left arm, BP Position: Sitting) Pulse 70 Temp 98.4 F (36.9 C) (Infrared) Resp 20 Ht 1.727 m (5' 8) Wt 57.2 kg (126 lb 3.2 oz) SpO2 97% BMI 19.19 kg/m Smoking Status Never Body mass index is 19.19 kg/m . General appearance: well Lungs: ctab Heart: rrr Abdomen: soft Tests none A/ rectal cance,r w CT w concern for residucal tumor in rectal stump P/ Flex sig today. Biopsy if we see a lesion Complexity. Underweight, Body mass index is 19.19 kg/m . - Reviewed and agree with registered veterinary technician's recommendations. Any conditions listed below are present on admission unless otherwise specified. . [place] Work Phone: 1(713) 451-668409-06-2024 History and physical note* Hilary Lewis MD - 06/25/2024 11:24 AM EDT HPI: 58 y.o. yo male here for flexible sigmoidoscopy New symptoms: none Past Medical History: Diagnosis Date Colon cancer Past Surgical History: Procedure Laterality Date DRAINAGE BY CATHETER PERITONEAL/RETROPERITONEAL PERCUTANEOUS W/ IMAGING GUIDANCE Right 05/07/2024 Laterality: Right; Surgeon: Catherine Delatorre II, MD; Location: [facility] INTERVENTIONAL RADIOLOGY (CT) DRAINAGE BY CATHETER PERITONEAL/RETROPERITONEAL PERCUTANEOUS W/ IMAGING GUIDANCE N/A 04/30/2024 Laterality: N/A; Surgeon: Catherine Delatorre II, MD; Location: [facility] INTERVENTIONAL RADIOLOGY (CT) COLECTOMY History reviewed. No pertinent family history. Social History Tobacco Use Smoking status: Never Smokeless tobacco: Never Vaping Use Vaping status: Never Used Substance Use Topics Alcohol use: Not Currently Drug use: Never ROS: CP: No SOB: No has No Known Allergies. Current Facility-Administered Medications: Lactated ringers IV solution, , Intravenous, Continuous, Hilary Lewis MD, Last Rate: 50 mL/hr at06/25/24 1025, Restarted at 06/25/24 1054 Exam BP 136/81 (BP Location: Left arm, BP Position: Sitting) Pulse 70 Temp 98.4 F (36.9 C) (Infrared) Resp 20 Ht 1.727 m (5' 8) Wt 57.2 kg (126 lb 3.2 oz) SpO2 97% BMI 19.19 kg/m Smoking Status Never Body mass index is 19.19 kg/m . General appearance: well Lungs: ctab Heart: rrr Abdomen: soft Tests none A/ rectal cance,r w CT w concern for residucal tumor in rectal stump P/ Flex sig today. Biopsy if we see a lesion Complexity. Underweight, Body mass index is 19.19 kg/m . - Reviewed and agree with registered veterinary technician's recommendations. Any conditions listed below are present on admission unless otherwise specified. . [facility] History of Present illness Narrative* Hilary Lewis MD - 05/20/2024 1:45 PM EDT Images from the original note were not included. CC: Chief Complaint Patient presents with Follow-up Follow up visit, his drain is leaking and he is wanting it out. The output has been low. HPI: 58 y.o. yo male presents for hospital follow-up He reports the flushing his pelvic drain results in irrigation coming out of his anus. We discussedthat this is because the top of his rectal stump is open. Passed void trial 05/12/24 Exam BP 134/72 Pulse (!) 49 Comment: thinks it could be the medication he on, he feels normal Ht 1.727 m (5' 8) Wt 55.3 kg (122 lb) BMI 18.55 kg/m Smoking Status Never Body mass index is 18.55 kg/m . General appearance: well and Abdomen: I removed both his abdominal and pelvic drain today after reviewing his CT scan and discussing with him. Other records reviewed: A/ 58yo man s/p LAR for rectal cancer, complicated by anastomotic leak and resection w colostomy, staged at [id number]. 4/13 lymph nodes, positive distal margin. Now w resolved abdominal and pelvic abscesses and purulent drainage from midline wound. P/ Tumor board discussion. With him that in most situations we would recommend adjuvant chemotherapy and radiation OK to stop amiodarone. That was started in [place]. DC summary mentions BP as the reason. He reportshe dind't really have high BP. DId have tachycardia in [place]. He'll check BP at local pharmacy Referral to med onc and rad onc in [place]. Follow-up: in 3 month(s) (Please note that portions of this note were completed with a voice recognition program. Efforts were made to edit the dictation but occasionally words are mis-transcribed.) * Joe Hylton RN - 05/20/2024 1:45 PM EDT Joe Hylton acted as a medical container packer operator for the procedure/exam/test. Drains pulled at the beside by Hilary Lewis MD. documented in this encounter[place]07-24-20[place] History of Present illness Narrative* Sandra Mckay RN - 05/12/2024 8:00 AM EDT Pt was given an explanation regarding the voiding trial and wishes to proceed. Pt undressed and the cisneros bag was removed from the catheter. 300 mL of 0.9% NaCl was slowly instilled into the bladder. The balloon of a 16 Sudanese catheter was then deflated. The patient voiced an urge to urinate and the catheter was removed. The patient tolerated the procedure well. Pt was allowed to void. Pt voided unmeasured amount 220mL of pale yellow urine was returned and a PVR was performed and showed 12 mL of urine in the bladder Provider, Anjali Denton CNP, was immediately available in the suite for any questions or concerns. * BETHANIE Whiting - 05/12/2024 8:00 AM EDT Chief Complaint VOT HPI Mr. Posada is a 58 y.o. male with history of colectomy; drainage by catheter peritoneal/retroperitoneal percutaneous w/ imaging guidance (N/A, 04/30/2024); and drainage by catheter peritoneal/retroperitoneal percutaneous w/ imaging guidance (Right, 05/07/2024). who presents with acute urinary retention during hospital stay. Patient was admitted for abdominal abscess from a previous colostomy surgery. He has never had this happen before. He denies any issues urinating previously. Denies UTIs and hematuria Patient denies fevers, chills, nausea, vomiting, constipation, or flank pain. Past Medical History He has a past medical history of Colon cancer. Past Surgical History He has a past surgical history that includes colectomy; drainage by catheter peritoneal/retroperitoneal percutaneous w/ imaging guidance (N/A, 04/30/2024); and drainage by catheter peritoneal/retroperitoneal percutaneous w/ imaging guidance (Right, 05/07/2024). Medications He has a current medication list which includes the following prescription(s): acetaminophen, medipore surgical 2x10yd, amiodarone, amoxicillin-clavulanate, ascorbic acid, aspirin, docusate, kerlix super sponges medium, surgical dressing, saline wound wash, and tamsulosin hcl. Allergies He has No Known Allergies. Social History He reports that he has never smoked. He has never used smokeless tobacco. He reports that he does not currently use alcohol. He reports that he does not use drugs. Family History He has no family history of prostate, bladder or kidney cancer He has no family history of kidney stones He family history is not on file. Review of Systems Pertinent review of systems was completed, positives noted in HPI. Physical Exam Pulse 73 Ht 1.727 m (5' 8) Wt 52.3 kg (115 lb 6.4 oz) SpO2 98% BMI 17.55 kg/m Smoking Status Never Constitutional: NAD, WDWN. Labs none Radiologic Studies Post-Void Residual A post-void residual was measured by ultrasonic bladder scanner. 12 Assessment and Plan Mr. Posada is a 58 y.o. male who presents with acute urinary retention shortly after having surgery for colostomy Patient passed void trial, refer to nurse note We discussed contacting clinic if he has difficulty urinating, sensation of incomplete emptying & signs of a UTI. We discussed if he cannot urinate for 6-8 hours to contact clinic if during normal business hours & to go to ED if we are closed. PLAN: Increase water intake to 64 oz daily Manange any constipation to prevent retention re-occurrence Continue flomax to aid in emptying RTC as needed if urinary symptoms worsen (per patient request) BETHANIE Whiting [facility] Plan of care note* Plan of Care - Angelique Merchant RN - 05/09/2024 2:04 PM EDT Pt discharged home with family, drainage and dressing teaching completed, pt and family state understanding, AVS reviewed, supplies provided, all belongings accounted for, pt wheeled down to car. Problem: Adult Inpatient Plan of Care Goal: Plan of Care Review Outcome: Adequate for Discharge Goal: Patient-Specific Goal (Individualized) Outcome: Adequate for Discharge Goal: Absence of Hospital-Acquired Illness or Injury Outcome: Adequate for Discharge Goal: Optimal Comfort and Wellbeing Outcome: Adequate for Discharge Goal: Readiness for Transition of Care Outcome: Adequate for Discharge Problem: Oral Intake Inadequate Goal: Optimal Oral Intake Outcome: Adequate for Discharge [place]07-21-2024 Miscellaneous Notes* Plan of Care - Angelique Merchant RN - 05/09/2024 2:04 PM EDT Pt discharged home with family, drainage and dressing teaching completed, pt and family state understanding, AVS reviewed, supplies provided, all belongings accounted for, pt wheeled down to car. Problem: Adult Inpatient Plan of Care Goal: Plan of Care Review Outcome: Adequate for Discharge Goal: Patient-Specific Goal (Individualized) Outcome: Adequate for Discharge Goal: Absence of Hospital-Acquired Illness or Injury Outcome: Adequate for Discharge Goal: Optimal Comfort and Wellbeing Outcome: Adequate for Discharge Goal: Readiness for Transition of Care Outcome: Adequate for Discharge Problem: Oral Intake Inadequate Goal: Optimal Oral Intake Outcome: Adequate for Discharge * Nursing Notes - Giovanna Cifuentes RN - 05/08/2024 8:41 PM EDT 2040 MD Sanders paged: I got in report that MIVF were discontinued but the order is still in. Patient is not hooked up please clarify. Thanks [phone] 2048 MD Sanders returned page. MIVF order discontinued. * Nursing Notes - Arron Lamar RN - 05/07/2024 4:24 PM EDT Interventional Radiology procedure completed of image guided drain placement with IR Attending Juan Ramon with sedation and local numbing agent. Intra- procedure specimens collected and sent to lab foranalysis. Pt to travel back to [place] [id number] for post procedure recovery. * Nursing Notes - Susie Fuentes RN - 05/07/2024 3:46 PM EDT 05/07/24 1545 Referral Information Arrived From emergency department Final Discharge Planning Discharge Disposition Home CM/SW AVS Portion Completed Yes Plan Plan Home with possible home health care if available (drew visits) Patient/Family In Agreement With Plan yes Transport Request Mode of Transfer Private Vehicle [facility] Inpatient PCRM Discharge Note Patient discussed in medical rounds for discharge to home possibly this weekend. Having additional drain placed today. PCRM met with the patient/family/spouse to discuss final discharge plan. Services for Discharge Spouse did request we look for a [facility] agency that could do 1 or 2 home [facility] visits. Referrals started, no accepting [facility] at this time. Timer extended to tomorrow. Handoff placed for float PCRM. Consults with Final Discharge Recommendations IR- drains being placed, will continue to flush after discharge Lines/Tubes/Drains/Wounds/Supplies IR drain x 2- will need to be flushed, bedside RN to send out with flushes and teach spouse Midline incision with ribbon- will need to teach spouse and send out with supplies Cisneros- Void trial appointment next week Colostomy- has been educated and caring for this. Medications No barriers anticipated in obtaining discharge medications. No prior authorizations anticipated. Reconciliation of medications to be completed by the medical team. Unsure of final antibiotic course for patient- handoff placed to follow up once known if leaving this weekend. Durable Medical Equipment Pt has plenty of ostomy supplies at home Pt will need wound care and flushing supplies, cisneros supplies. Choice Was Patient Choice Provided: N/A Transportation Transportation will be provided by family. Education Discharge education provided by the medical team and updated in the After Visit Summary. Spouse will need to be educated on wound care, cisneros care and drain care. Bedside RN updated. Follow Up(s) Any follow up requested by the medical team arranged. Appointments in the After Visit Summary. Future Appointments Provider Department Center 05/12/2024 8:00 AM Anjali Denton; UROLOGY NURSE D, [facility] [place] Arrive at: Arrive to 2nd Floor, Registration [address] EEI 05/20/2024 1:00 PM [facility], [facility] Imaging at [facility] Outpatient Care Arrive at: Arrive to First Floor Registration JOCW 05/20/2024 1:45 PM Hilary Lewis [facility] Outpatient Care [place] Arrive at: Arrive to 1st Floor Registration [facility] Was Ambulatory PCRM added to the Care Team? No- No outpatient PCRM for this physician The PCRM has updated the patient's nurse regarding the final discharge plan. Risk of Readmission: 5.4 Category Reference: Low: 0% - 5% Medium - Low: 5.1% - 10% Medium - High: 10.1% - 16% High: 16.1% - 100% Readmission Risk Interventions Documented: Yes No other discharge needs have been identified at this time. This plan was developed in collaboration with the patient and caregiver/preferred decision maker. Patient and family are in agreement with final discharge plan. Please refer to AVS and medical record for additional information. Patient instructed to call with questions. PCRM will continue to follow with medical team for any additional discharge planning needs. AUDRA Moreno Colorectal Surgery [phone] For evening and weekend discharge assistance: Pager for network operations specialist PCR at [phone] Pager for network operations specialist [phone] * Nursing Notes - Karen Laboy RN - 05/07/2024 11:26 AM EDT WOC/ET FOLLOW UP NOTE: In to see Mr. Posada for colostomy education. His said they don't need help with anything regarding colostomy care today. She also said they have plenty of supplies right now. Pt was up and ambulating back from the bathroom with the RECEIVING MANAGER during visit. 05/07/24 1100 Plan Problem colostomy, est Current Plan ostomy prescription done;lesson, first Visit Type Consult with RN WOCT Visit Frequency PRN Last Date Seen 05/07/24 Karen REED, RN-[facility] [phone] * Nursing Notes - Susie Fuentes RN - 05/06/2024 12:47 PM EDT Patient was discussed in morning rounds. Last 24 Hour Updates: Andrew Posada is a 58 y.o. male PMH of colonic adenocarcinoma s/p sigmoidectomy with rectosigmoid anastomosis c/b dehiscence requiring end colostomy (presumed) who presents with abdominal abscess. His original surgery was completed in [place]. Outside hospital completed a scan- CTAP revealing a large intra-abdominal abscess (7.9cm x 4.9cm), for which IV zosyn was started. Patient had IR drain placement to drain abscess placed on 04/30/24. Pt is on IV Zosyn and following cultures and sensitivities. Cisneros in place for urinary retention. He has an opened midline wound whichis changing the dressing BID. His WBC was elevated again yesterday despite antibioitics, repeat CTAP to further evaluate known fluid collections following drain placement. After scans, IR consulted to see if they could place another drain to continue to drain areas of fluid collections. IR procedure to be completed tomorrow. Current Discharge Plan: Home, no insurance, [place] Pending; to assist with cisneros, drain (with flushing), wound and will need to be on oral antibiotics for discharge. AUDRA will continue to follow for ongoing needs and planning. AUDRA Moreno [phone] For evening and weekend discharge assistance: Pager for network operations specialist PCRM at [phone] Pager for network operations specialist [phone] * Plan of Care - Rosy Gudino RN - 05/06/2024 7:57 AM EDT Interventional Radiology Procedural Planning Note Requested procedure: CT Guided Drain Placement Date of H&P reviewed: 05/06/24 Sedation: moderate Thank you for your referral to Interventional Radiology. Your request for drain placement for your patient has been reviewed and approved for scheduling. Your patient is an ADD ON to our schedule TOMORROW 05/07. Time to be determined. Please note that emergent cases will take priority over any addedon cases. Special Considerations: Please make patient NPO at midnight prior to the procedure Coagulation goals: Hemoglobin > 8, Platelets > 50, INR < 1.5 Blood pressure goal: 160s/90 or lower Anticoagulation, if any not listed, will need to be held per guidelines Your patient will need to be able to tolerate lying flat for approximately one hour. A working PIV is required to sedate your patient. For questions or concerns please call us directly at [phone] for questions [phone]. * Nursing Notes - Dorcas Krishnamurthy RN - 05/04/2024 4:17 PM EDT Images from the original note were not included. WOC/ET Nursing Consult/Evaluation Note Evaluated Andrew Posada for ostomy located in LLQ. Description of stoma: LLQ presumed end colostomy from 03-30-24 from surgery in [place] for colon cancer. Stoma moist red, budded, 1 1/2'', functioning with soft brown stool. Opal at bedside, she was taught how to carefor colostomy at outside hospital and was sent home with 2-piece Odilia pouches. He is currentlywearing a 1-piece pouch from here but they prefer 2-piece system. No insurance. Pouch changed todayfor continued education, provided with printed education material and kit with pouches. I gave him coloplast flat 1-piece pouches [id number] and our 2-piece flat 2 1/4'' Con[employer]ec system. They seem to prefer at this time Dongola 2-piece brand but we do not stock these. I will write a script for supply numbers to help guide them as what they can out of pocket buy from various outlets such as [employer] and the ostomy companies like Dongola, Coloplast, and [employer]. PCRM working on setting up supply company hardship programs. After working with I do not think they need more hands on education but we are available if anything comes up or we need to refresh anything before DC. Provided them with our contact numbers in case questions arise at home. See image(s) below: Elder Skin Assessment: Elder Risk Assessment Sensory Perception: 4-->no impairment Moisture: 4-->rarely moist Activity: 3-->walks occasionally Mobility: 3-->slightly limited Nutrition: 3-->adequate Friction and Shear: 3-->no apparent problem Elder Score: 20 Elder Score: Elder Score: 20 Body mass index is 17.74 kg/m . Total time spent in assessment and treatment of patient: 60 minutes spent providing patient care. LABS: Albumin Date Value Ref Range Status 04/29/2024 2.6 (L) 3.5 - 5.0 g/dL Final No results found for: PREALBUMIN Ostomy Documentation: 05/04/24 1615 Colostomy 03/30/24 1000 Placement Date/Time: 03/30/24 1000 Present On Admission : yes Location: LLQ;medial Wound Image Stoma Appearance round;moist;red;protruding above skin level Peristomal Skin dry;intact Appliance changed;2-piece Date Appliance Changed 05/04/24 Accessories/Skin Care cleansed with water Stoma Function flatus;stool Tolerance no signs/symptoms of discomfort Stool Output (mL) 50 Plan Current Plan ostomy prescription done;lesson, first WOCT Visit Frequency Fri Last Date Seen 05/04/24 RN notified of assessment and plan. Please page #[phone] or reconsult with any further needs. Dorcas Krishnamurthy RN * Nursing Notes - Susie Fuentes RN - 05/04/2024 2:40 PM EDT Patient was discussed in morning rounds. Last 24 Hour Updates: Pt had cisneros in place- will discharge with this and referral made for OP Urology, inbasket message sent to get appointment. Pt had IR drain placed, pt will flush that at discharge. Pt has a ribbon to midline incision, will send out with wound care supplies. Team would like CT scan scheduled in 2-3 weeks, requested order to schedule. Current Discharge Plan: Pt is self pay; no insurance. Pt will need to pay for discharge medications. Supplies to be provided. Awaiting final antibiotic regimen. Email to Financial sent to inquire about resources/drew available. PCRM will continue to follow for ongoing needs and planning. AUDRA Moreno [phone] For evening and weekend discharge assistance: Pager for network operations specialist PCRYe at [phone] Pager for network operations specialist [phone] Addendum: CT scan scheduled. * Plan of Care - Giovanna Alonzo RD - 05/03/2024 2:53 PM EDT Problem: Oral Intake Inadequate Goal: Optimal Oral Intake Outcome: Progressing Nutrition Recommendations and Plan of Care: 1. Continue current diet as tolerated 2. Continue to provide Ensure Plus TID (provides 350 kcal, 13-16 g pro per serv) 3. Begin wound healing vitamins: 220 mg Zinc Sulfate daily x 14 days, 250 mg Vitamin C BID x 14 days, multivitamin with minerals daily 4. At risk for refeeding syndrome: Monitor K, Mg, Phos closely (at least q daily) and replace as needed. Begin 100 mg Thiamine daily x 7 days 5. Please obtain new weight 6. Monitor PO intake, weights, labs, GI function, skin integrity 7. RD to follow * Nursing Notes - Nuria Starks RN - 05/02/2024 6:16 PM EDT IHIS chat with MD Blake: pt able to void another 50ml. Bladder scan was 330ml. * Nursing Notes - Nuria Starks RN - 05/02/2024 9:57 AM EDT IHIS chat with Erasto STANTON: 'Just want to clarify the dc cisneros order. Is there a certain amount of time you want me to wait after flomax given before removing cisneros or is it just give flomax and remove cisneros immediately after given? ' Per , remove csineros 1 hour after flomax given. * Nursing Notes - Luz Marina Ramos RN - 04/30/2024 11:06 PM EDT This nurse paged the on-call provider:This is Luz Marina J. Mr. Posada in [phone] can we discontinue his scheduled Tylenol and place a PRN order? He only wants one Tylenol when he needs it. My # [phone] [id number]:Tylenol order changed from scheduled to PRN. This nurse will continue to monitor and will report as necessary. * Nursing Notes - Miguel A Heaton RN - 04/30/2024 4:43 PM EDT Interventional Radiology procedure completed of image guided drain placement with IR Attending Dr Delatorre with sedation and local numbing agent. Intra- procedure specimens collected and sent to lab for analysis. Pt to travel back to inpatient room for post procedure recovery. [place] History of Present illness Narrative* Amara Armas RN - 05/09/2024 9:38 AM EDTSummary: PCRM Discharge Planning PCRM following up on patient's discharge plan. Per Dr. Felipe, no IV abx required, will go out on oral regimen (Augmentin). Unable to secure [facility] at this time, no accepting agencies. Per team patient is doing well with drain care independently. PCRM met with patient and spouse to discuss discharge meds, as local pharmacy is closed on Sundays.Pt's spouse reports they have nearly a month's supply of amiodarone 200mg, aspirin, and vitamin C at home which they returned home from [place] with. We will send scripts [facility] Aug[facility] [place] for them to sweet pickle maker on their way home from the hospital today. All other scirptson file at [facility] to fill when needed. Bedside RN updated re: medication plan along with request to send pt home with drain supplies. Pt with ostomy supplies at home already. See full PCRM Discharge Note from Susie Belcher dated 05/07. BRIANNA Green offal roller PCRM [phone] 05/09/2024 9:47 AM For evening (after 4:30pm) and weekend discharge assistance please page the network operations specialist PCRM at [phone]. * Janeth Shea RN - 05/08/2024 4:52 PM EDT PCRM following up on hand off for [facility]. Extended referral for [facility] as no accepting agencies. [facility] following. No final d/c date noted as of this stime. Abx plan pending. BRIANNA Randle RN OCN Float PCRM Pager: [phone] Float Pager: [phone] If any changes to this individualized plan of care during evening and weekend hours and assistance is needed, please page the network operations specialist PCRM at [phone]. * Lindsay Forbes RN - 05/07/2024 2:58 PM EDT [facility] Coordination Note Patient received in handoff from porter sample case for potential homecare services. Will continue to follow with porter sample case for plan of care. [facility] Home Health Following Physician Confirmation Following Physician: Dr. Hilary Lewis ([facility]- , Fax Line: [phone]) Physician Service: Surgery Agreeable to Follow: Yes BRIANNA Saleem, RN Post-Acute Boxing Trainer * Susie Fuentes RN - 05/07/2024 2:42 PM EDT Discharge Planning for Home Health Seeing if there are [facility] options for discharge Background Information/ Hospital Overview: Andrew Posada is a 58 y.o. male PMH of colonic adenocarcinoma s/p sigmoidectomy with rectosigmoidanastomosis c/b dehiscence requiring end colostomy (presumed) who presents with abdominal abscess. Additional PMHx is not clear at this time, as patient has limited utilization of healthcare servicesin the [place]. Review of Care Everywhere reveals only prior imaging as well as a positive CDiff pcr test on 10/22/23. Patient presented with a binder of current medications, pending further review and translation, however he notes taking daily aspirin, and prior use of capecitabine (not actively takingas it was not well tolerated). His medication list also appears to include amiodarone 200mg daily. The patient was diagnosed with colon cancer (exact pathology and location unknown) and had colectomy on 03/30/24 in [place], with pathology revealing invasive moderately differentiated adenocarcinoma with 4/13 nodes positive (pT4N1M). [place], he noted progressive purulent drainage fromthe rectal stump about 1.5 weeks ago and then redness, swelling, and purulent drainage from the anterior abdomen near his surgical incision. He has had a fever as well. Presentation to an OSH resulted in CTAP revealing a large intra- abdominal abscess (7.9cm x 4.9cm), for which IV zosyn was started.Patient had IR drain placement to drain abscess placed on 04/30/24. Services needed: Jail Jail Needs IR drain x 2- with flushing Midline wound care Cisneros care Ostomy Care Line / tube / drain type and care needed Colostomy Midline wound- packing BID IR drain x2 with flushing daily Cisneros Teachable Caregiver / Family Support: Spouse is a teachable caregiver and will be willing to work with [facility] to obtain education if there are complex teaching services needed for the patient. Physician following for home care orders / phone: Dr. Hilary Lewis ([facility]- , Fax Line: [phone]) * Gabriele Felipe MD - 05/07/2024 7:08 AM EDT Images from the original note were not included. SURGERY PROGRESS NOTE SUBJECTIVE: No acute events overnight. Patient is NPO today pending IR procedure for drain placement - he is currently on schedule for 2pm and has been informed. He is having adequate stoma output. Wbc remains elevated today. Will continue with plan for additional IR drain of perihepatic/paracolic fluid collection with culture and sensitivities. OBJECTIVE: Temp: [98.6 F (37 C)-99.5 F (37.5 C)] 98.6 F (37 C) Pulse (Heart Rate): [66-72] 71 Resp Rate: [14-16] 16 BP: (102-120)/(56-69) 120/69 O2 Sat (%): [96 %-97 %] 96 % O2 Sat (%): [96 %-97 %] 96 % O2 Device: room air I&O Intake/Output Summary (Last 24 hours) at 05/07/2024 0710 Last data filed at 05/07/2024 0615 Gross per 24 hour Intake 1598.67 ml Output 3725 ml Net -2126.33 ml Physical Exam General: Awake, alert, in NAD. Resting comfortably in bed. Cardiovascular: Hemodynamically stable. Regular rate. Pulmonary: Normal respiratory effort. Equal chest rise. Abdomen: Soft, non-tender, non-distended, no rebound/guarding/rigidity or other signs of peritonitis, midline incisional wound with packing strip and dressing in place. LLQ end stoma appears pink, well perfused, with adequate stool actively outputing in bag. IR drain with cloudy output. Extremities: Warm and well perfused with gross sensation and motor intact Labs: WBC/Hgb/Hct/Plts: 19.46/8.4/27.0/508 (05/07 244) Na/K+/Phos/Mg/Ca: 134/4.7/--/--/-- (05/07 244) Bun/Creat/Cl/CO2/Glucose: 18/0.85/101/26/91 (05/07 244) Lab Results Component Value Date ALT 50 04/29/2024 AST 61 (H) 04/29/2024 ALKPHOS 92 04/29/2024 BILITOTAL 0.6 04/29/2024 BILIDIRECT 0.1 04/29/2024 ASSESSMENT/PLAN: Andrew Posada is a 58 y.o. male PMH of colonic adenocarcinoma s/p sigmoidectomy with rectosigmoidanastomosis c/b dehiscence requiring end colostomy (presumed) who presents with abdominal abscess. Additional PMHx is not clear at this time, as patient has limited utilization of healthcare servicesin the [place]. Review of Care Everywhere reveals only prior imaging as well as a positive CDiff pcr test on 10/22/23. Patient presented with a binder of current medications, pending further review and translation, however he notes taking daily aspirin, and prior use of capecitabine (not actively takingas it was not well tolerated). His medication list also appears to include amiodarone 200mg daily. The patient was diagnosed with colon cancer (exact pathology and location unknown) and had colectomy on 03/30/24 in [place], with pathology revealing invasive moderately differentiated adenocarcinoma with 4/13 nodes positive (pT4N1M). [place], he noted progressive purulent drainage fromthe rectal stump about 1.5 weeks ago and then redness, swelling, and purulent drainage from the anterior abdomen near his surgical incision. He has had a fever as well. Presentation to an OSH resulted in CTAP revealing a large intra- abdominal abscess (7.9cm x 4.9cm), for which IV zosyn was started.Patient had IR drain placement to drain abscess placed on 04/30/24. He remains with leukocytosis however, and is therefore planned for additional drain placement of fluid collection noted in paracolicgutter and perihepatic space. Daily plan: - Continue zosyn. Cultures with +e. Coli, strep anginosis. Pending additional culture sensitivitiesfrom lab. Will transition to oral with more information. - IR today, ok to eat diet as tolerated after procedure - Cisneros cath for urinary retention. Coordinated outpatient urology follow up. - BID dressing changes. Will need ostomy/wound, drain, and cisneros supplies for discharge - Continue telemetry and amiodarone and aspirin Complexity. Hyponatremia - Secondary to fluid shifts. Monitor. Underweight, Body mass index is 17.74 kg/m . - Reviewed and agree with registered veterinary technician's recommendations. Malnutrition - Severe Protein-Calorie Malnutrition (POA) (05/03/2024 2:49 PM) secondary to Chronic Illness (05/03/2024 2:49 PM) - Reviewed and agree with registered veterinary technician's recommendations. Any conditions listed below are present on admission unless otherwise specified. . Dispo: pending further clinical workup and improvement Please page the [facility] pager with questions or concerns. (Found in QGenda / WebExchange) Gabriele Felipe MD, [facility] General Surgery Pager: [phone] * Gabriele Felipe MD - 05/06/2024 7:09 AM EDT Images from the original note were not included. SURGERY PROGRESS NOTE SUBJECTIVE: No acute events overnight. Patient reports he is tolerating diet well with no N/V. He is having adequate stoma output. Wbc is now elevated despite drain placement. We therefore obtained repeat CTAP to further evaluate known fluid collections following drain placement, and noted interval decrease incollection sizes, however persistent perihepatic / paracolic fluid collection that may require additional drain placement. We discussed contacting IR for evaluation and additional drain placement. Patient agreeable to plan. OBJECTIVE: AF, HDN, VSS I&O PO 237 UOP 3.8L Drain 105 Colostomy 450 Physical Exam General: Awake, alert, in NAD. Resting comfortably in bed. Cardiovascular: Hemodynamically stable. Regular rate. Pulmonary: Normal respiratory effort. Equal chest rise. Abdomen: Soft, non-tender, non-distended, no rebound/guarding/rigidity or other signs of peritonitis, midline incisional wound with packing strip and dressing in place. LLQ end stoma appears pink, well perfused, with adequate stool actively outputing in bag. IR drain with minimal cloudy serosang output. Extremities: Warm and well perfused with gross sensation and motor intact Labs: Per chart review ASSESSMENT/PLAN: Andrew Posada is a 58 y.o. male PMH of colonic adenocarcinoma s/p sigmoidectomy with rectosigmoidanastomosis c/b dehiscence requiring end colostomy (presumed) who presents with abdominal abscess. Additional PMHx is not clear at this time, as patient has limited utilization of healthcare servicesin the [place]. Review of Care Everywhere reveals only prior imaging as well as a positive CDiff pcr test on 10/22/23. Patient presented with a binder of current medications, pending further review and translation, however he notes taking daily aspirin, and prior use of capecitabine (not actively takingas it was not well tolerated). His medication list also appears to include amiodarone 200mg daily. The patient was diagnosed with colon cancer (exact pathology and location unknown) and had colectomy on 03/30/24 in [place], with pathology revealing invasive moderately differentiated adenocarcinoma with 4/13 nodes positive (pT4N1M). [place], he noted progressive purulent drainage fromthe rectal stump about 1.5 weeks ago and then redness, swelling, and purulent drainage from the anterior abdomen near his surgical incision. He has had a fever as well. Presentation to an OSH resulted in CTAP revealing a large intra- abdominal abscess (7.9cm x 4.9cm), for which IV zosyn was started.Patient had IR drain placement to drain abscess placed on 04/30/24. He has since had persistence of leukocytosis with repeat CTAP demonstrating ongoing fluid collection in right paracolic gutter and perihepatic spaces, warranting evaluation for a second drain placement. Daily plan: - Continue zosyn. Cultures with +e. Coli, strep anginosis. Pending culture sensitivities from lab. Will transition to oral with more information. - CTM wbc - Cisneros cath for urinary retention. Coordinated outpatient urology follow up. - NPO pending IR evaluation / additional drain possible - BID dressing changes. Will need ostomy/wound, drain, and cisneros supplies for discharge - Continue telemetry and amiodarone and aspirin Complexity. Hyponatremia - Secondary to fluid shifts. Monitor. Underweight, Body mass index is 17.74 kg/m . - Reviewed and agree with registered veterinary technician's recommendations. Malnutrition - Severe Protein-Calorie Malnutrition (POA) (05/03/2024 2:49 PM) secondary to Chronic Illness (05/03/2024 2:49 PM) - Reviewed and agree with registered veterinary technician's recommendations. Any conditions listed below are present on admission unless otherwise specified. . Dispo: pending further clinical workup and improvement Please page the [facility] pager with questions or concerns. (Found in QGenda / WebExchange) Gabriele Felipe MD, MSBME [facility] General Surgery Pager: [phone] * AUGUSTO Cook - 05/05/2024 6:51 PM EDT This SW is assisting the Colorectal surgery service on this date. Psychosocial Assessment Per chart review, patient is a 58 y.o., male, who was admitted post colectomy for colon cancer in [place], here with intraabdominal infection, wound dehiscence and drainage. SW met with patient and patient's to introduce self, explain sr. social media & mobile manager role during inpatient stay, and answer questions. Patient was alert and oriented x4 and agreeable to SW visit. Contact Information: Supervisor Type Disk Quality Control Name: Susie Belcher RN PCRM Social Work Contact Name: See daily coverage for following SW Advance Directive Discussion: Patient does not have any advance directives on file. SW inquired whether or not patient is interested in completing health care power of divorce attorney and/or living will paperwork during this visit. SW reviewed the documents, discussed the benefits of completing them, and provided education re: Legal NOK (LNOK). Patient declined interest in completing the documents at this time. Legal NOK: Patient's spouse, Opal Posada/ ph: [phone], is patient's legal NOK. Patient has eight adult children. Emotional/Psychological: Mood: congruent to situation, congruent to affect Current Interpersonal Conduct/Behavior: cooperative, acceptance, appropriate to situation, other (see comments) (intermittently tearful) Mental Health Conditions/Symptoms: denies, other (see comments) (Pt shared that he recently struggled w/ some anxiety when he was in [place].He reported that he is not feeling anxious or depressed at this time.He shared that he will let the medical team know if this changes.He reports no current thoughts of self-harm.) Previous Mental Health Treatment: none Patient denies current thoughts of wanting to hurt himself. Distress Screen: Patient declined to complete distress screen at this time. Patient Coping/Stress Concerns: Patient Coping/Stress Concerns: No Patient Personal Strengths: able to adapt, courageous, motivated, future/goal oriented, resourceful, strong support system, tolerant, resilient, successful coping history, [place]/spirituality, positive attitude, flexibility, self-reliant Sources Of Support: adult child(brian), other (see comments), sabianism/holiness organization, community support, friend(s), spouse, sibling(s) (16 grandchildren) Reaction To Health Status: accepting, adjusting, hopeful, other (see comments) (Patient reported that he is trying to take things one thing at a time...moment to moment.) Understanding Of Condition And Treatment: needs additional information, needs time to process Living Environment: Lives With: spouse, child(brian), adult (Patient lives with his spouse and four of his adult children(ages 30, 27 and 24 year old twins).) Living Arrangement and Set Up: house (2 story house with a walk-in basement and 3 steps to enter.) Caregiver Coping/Stress Concerns: Caregiver Coping/Stress Concerns: No Reaction To Health Status: accepting, adjusting, hopeful Employment/Financial: Employed?: Yes Employment Details: Patient works at a [employer]. Employment/Financial Concerns: other Employment/Insurance Comments: Patient does not have insurance. He has an [employer]. PCRM placed a referral to an [facility] Financial Counselor for requested follow up. Source Of Income: salary/wages Food Insecurity: Within the past 12 months, you worried that your food would run out before you got the money to buymore.: Never true Within the past 12 months, the food you bought just didn't last and you didn't have money to get more.: Never true Housing Stability: In the last 12 months, was there a time when you were not able to pay the mortgage or rent on time?: No In the last 12 months, how many places have you lived?: 1 (Patient shared that six generations of his family have lived in his house.) In the last 12 months, was there a time when you did not have a steady place to sleep or slept in ashelter (including now)?: No Utilities: In the past 12 months has the electric, gas, oil, or water company threatened to shut off services in your home?: No (Patient and spouse reported no concerns paying for utilities.) Transportation Needs: In the past 12 months, has lack of transportation kept you from medical appointments or from getting medications?: No (Patient shared that his son Jerry is able to take him to appointments as needed.) In the past 12 months, has lack of transportation kept you from meetings, work, or from getting things needed for daily living?: No SW encouraged patient and spouse to consider other family or friends in their community that may bewilling to assist patient with any needed transportation to appointments. Patient and spouse sharedthat they would think about possible options. Alcohol Use: Q1: How often do you have a drink containing alcohol?: Never Q2: How many drinks containing alcohol do you have on a typical day when you are drinking?: Patientdoes not drink Q3: How often do you have six or more drinks on one occasion?: Never Substance Use: How many times in the past year have you used illegal drugs?: Never Intimate Partner Violence: Within the last year, have you been afraid of your partner or ex-partner?: No Within the last year, have you been humiliated or emotionally abused in other ways by your partner or ex-partner?: No Within the last year, have you been kicked, hit, slapped, or otherwise physically hurt by your partner or ex-partner?: No Within the last year, have you been raped or forced to have any kind of sexual activity by your partner or ex-partner?: No Community Resources: SW provided patient with The [facility] Patient Resource Guide so that patient could have the contact information for [facility] Financial Assistance and Medication Assistance programs. Patient reported being appreciative of the information and reported no other resource needs at this time. Of note, [facility] already placed a referral for an [facility] Financial Counselor for requested follow up. Anticipated Discharge Plan: Anticipated Discharge Plan: Home Medical Team Considerations: Patient does not have traditional insurance and [facility]. SW Interventions/Recommendations: SW instructed patient to ask his bedside RN to reach out to service SW if he needs SW. SW explainedthat there may be a new SW following day to day. Patient reported being in agreement. SW will continue to remain available to provide assistance and support as needed during inpatient stay. ABDIEL Barber [employer] For Evening (4:30pm-8:00am) and Weekend SW needs please call [phone]. * JEFE Crouch - 05/05/2024 3:06 PM EDT SW attempted to meet with patient to complete psychosocial assessment; however, patient was found to be out of the room at this time. SW will revisit patient as able and remain available as needed. ABDIEL Crouch LSW ED/ICC/OBS [employer] For Evening (4:30pm-8am), Weekend, and Holiday SW needs please call [phone] or page [phone]. * Gabriele Felipe MD - 05/05/2024 7:01 AM EDT Images from the original note were not included. SURGERY PROGRESS NOTE SUBJECTIVE: No acute events overnight. Patient reports he is tolerating diet well with no N/V. He is having adequate stoma output. Wbc is again elevated today. We therefore discussed plan for possible repeat CTAP to further evaluate known fluid collections following drain placement, and determine plan moving forward. Patient agreeable to plan. OBJECTIVE: Temp: [98.4 F (36.9 C)-99.2 F (37.3 C)] 99.2 F (37.3 C) Pulse (Heart Rate): [67-78] 68 Resp Rate: [14-18] 18 BP: (104-136)/(54-72) 117/70 O2 Sat (%): [95 %-96 %] 96 % O2 Sat (%): [95 %-96 %] 96 % O2 Device: room air I&O Intake/Output Summary (Last 24 hours) at 05/05/2024 0702 Last data filed at 05/05/2024 0537 Gross per 24 hour Intake 1162.3 ml Output 3190 ml Net -2027.7 ml Physical Exam General: Awake, alert, in NAD. Resting comfortably in bed. Cardiovascular: Hemodynamically stable. Regular rate. Pulmonary: Normal respiratory effort. Equal chest rise. Abdomen: Soft, non-tender, non-distended, no rebound/guarding/rigidity or other signs of peritonitis, midline incisional wound with packing strip and dressing in place. LLQ end stoma appears pink, well perfused, with adequate stool actively outputing in bag. IR drain with minimal cloudy serosang output. Extremities: Warm and well perfused with gross sensation and motor intact Labs: WBC/Hgb/Hct/Plts: 17.33/8.8/27.5/488 (05/05 252) Na/K+/Phos/Mg/Ca: 135/4.5/2.9/2.2/-- (05/05 252) Bun/Creat/Cl/CO2/Glucose: 13/0.73/102/24/104 (05/05 252) Lab Results Component Value Date ALT 50 04/29/2024 AST 61 (H) 04/29/2024 ALKPHOS 92 04/29/2024 BILITOTAL 0.6 04/29/2024 BILIDIRECT 0.1 04/29/2024 ASSESSMENT/PLAN: Andrew Posada is a 58 y.o. male PMH of colonic adenocarcinoma s/p sigmoidectomy with rectosigmoidanastomosis c/b dehiscence requiring end colostomy (presumed) who presents with abdominal abscess. Additional PMHx is not clear at this time, as patient has limited utilization of healthcare servicesin the [place]. Review of Care Everywhere reveals only prior imaging as well as a positive CDiff pcr test on 10/22/23. Patient presented with a binder of current medications, pending further review and translation, however he notes taking daily aspirin, and prior use of capecitabine (not actively takingas it was not well tolerated). His medication list also appears to include amiodarone 200mg daily. The patient was diagnosed with colon cancer (exact pathology and location unknown) and had colectomy on 03/30/24 in [place], with pathology revealing invasive moderately differentiated adenocarcinoma with 4/13 nodes positive (pT4N1M). [place] the [place], he noted progressive purulent drainage fromthe rectal stump about 1.5 weeks ago and then redness, swelling, and purulent drainage from the anterior abdomen near his surgical incision. He has had a fever as well. Presentation to an OSH resulted in CTAP revealing a large intra- abdominal abscess (7.9cm x 4.9cm), for which IV zosyn was started.Patient had IR drain placement to drain abscess placed on 04/30/24. Daily plan: - Continue zosyn. Cultures with +e. Coli, strep anginosis. Pending culture sensitivities from lab. Will transition to oral with more information. Will call lab for follow up today. - CTM wbc (today at 17.3 from 13.02, 16.8 prior) - possible CTAP repeat today - Cisneros cath for urinary retention. Coordinated outpatient urology follow up. - Continue diet as tolerated - BID dressing changes. Will need ostomy/wound, drain, and cisneros supplies for discharge - Continue telemetry and amiodarone and aspirin Complexity. Underweight, Body mass index is 17.74 kg/m . - Reviewed and agree with registered veterinary technician's recommendations. Malnutrition - Severe Protein-Calorie Malnutrition (POA) (05/03/2024 2:49 PM) secondary to Chronic Illness (05/03/2024 2:49 PM) - Reviewed and agree with registered veterinary technician's recommendations. Any conditions listed below are present on admission unless otherwise specified. . Dispo: pending further clinical workup and improvement Please page the [facility] pager with questions or concerns. (Found in [employer] / WebExchange) Gabriele Felipe MD, [facility] General Surgery Pager: [phone] * Gabriele Felipe MD - 05/04/2024 7:39 AM EDT Images from the original note were not included. SURGERY PROGRESS NOTE SUBJECTIVE: No acute events overnight. Patient reports feeling improvement today, and is tolerating diet well with no N/V. He is having adequate stoma output. Discussed plan today for continued monitoring of exam and wbc. We will additionally increase frequency of dressing changes to BID. Patient agreeable to plan. OBJECTIVE: Temp: [97.7 F (36.5 C)-99.2 F (37.3 C)] 98.3 F (36.8 C) Pulse (Heart Rate): [64-83] 64 Resp Rate: [14-18] 16 BP: (103-138)/(63-80) 115/70 O2 Sat (%): [95 %-97 %] 95 % Weight: [52.9 kg (116 lb 11.2 oz)] 52.9 kg (116 lb 11.2 oz) O2 Sat (%): [95 %-97 %] 95 % O2 Device: CPAP;room air I&O Intake/Output Summary (Last 24 hours) at 05/04/2024 0741 Last data filed at 05/04/2024 0619 Gross per 24 hour Intake 1653.79 ml Output 3940 ml Net -2286.21 ml Physical Exam General: Awake, alert, in NAD. Resting comfortably in bed. Cardiovascular: Hemodynamically stable. Regular rate. Pulmonary: Normal respiratory effort. Equal chest rise. Abdomen: Soft, non-tender, non-distended, no rebound/guarding/rigidity or other signs of peritonitis, midline incisional wound with packing strip and dressing in place. LLQ end stoma appears pink, well perfused, with adequate stool in bag. IR drain with minimal cloudy serosang output. Extremities: Warm and well perfused with gross sensation and motor intact Labs: WBC/Hgb/Hct/Plts: 13.02/9.1/28.4/487 (05/04 226) Na/K+/Phos/Mg/Ca: 137/4.5/2.5/2.1/-- (05/04 226-05/04 609) Bun/Creat/Cl/CO2/Glucose: 9/0.66/103/26/100 (05/04 609) Lab Results Component Value Date ALT 50 04/29/2024 AST 61 (H) 04/29/2024 ALKPHOS 92 04/29/2024 BILITOTAL 0.6 04/29/2024 BILIDIRECT 0.1 04/29/2024 ASSESSMENT/PLAN: Andrew Posada is a 58 y.o. male PMH of colonic adenocarcinoma s/p sigmoidectomy with rectosigmoidanastomosis c/b dehiscence requiring end colostomy (presumed) who presents with abdominal abscess. Additional PMHx is not clear at this time, as patient has limited utilization of healthcare servicesin the [place]. Review of Care Everywhere reveals only prior imaging as well as a positive CDiff pcr test on 10/22/23. Patient presented with a binder of current medications, pending further review and translation, however he notes taking daily aspirin, and prior use of capecitabine (not actively takingas it was not well tolerated). His medication list also appears to include amiodarone 200mg daily. The patient was diagnosed with colon cancer (exact pathology and location unknown) and had colectomy on 03/30/24 in [place], with pathology revealing invasive moderately differentiated adenocarcinoma with 4/13 nodes positive (pT4N1M). [place] the [place], he noted progressive purulent drainage fromthe rectal stump about 1.5 weeks ago and then redness, swelling, and purulent drainage from the anterior abdomen near his surgical incision. He has had a fever as well. Presentation to an OSH resulted in CTAP revealing a large intra- abdominal abscess (7.9cm x 4.9cm), for which IV zosyn was started.Patient had IR drain placement to drain abscess placed on 04/30/24. Daily plan: - Continue zosyn. Cultures with +e. Coli, strep anginosis. Pending culture sensitivities from lab. Will transition to oral with more information. - CTM wbc (down today at 13.02 from 16.8) - Cisneros cath for urinary retention. Coordinate outpatient urology follow up. - Continue diet as tolerated - BID dressing changes. Will need ostomy/wound, drain, and cisneros supplies for discharge - Continue telemetry and amiodarone and aspirin Complexity. Underweight, Body mass index is 17.74 kg/m . - Reviewed and agree with registered veterinary technician's recommendations. Malnutrition - Severe Protein-Calorie Malnutrition (POA) (05/03/2024 2:49 PM) secondary to Chronic Illness (05/03/2024 2:49 PM) - Reviewed and agree with registered veterinary technician's recommendations. Any conditions listed below are present on admission unless otherwise specified. . Dispo: pending further clinical improvement Please page the [facility] pager with questions or concerns. (Found in [employer] / WebExchange) Gabriele Feilpe MD, [facility] General Surgery Pager: [phone] * Giovanna Alonzo RD - 05/03/2024 9:48 AM EDT NUTRITION SCREENING NOTE Nutrition Recommendations and Plan of Care: 1. Continue current diet as tolerated 2. Continue to provide Ensure Plus TID (provides 350 kcal, 13-16 g pro per serv) 3. Begin wound healing vitamins: 220 mg Zinc Sulfate daily x 14 days, 250 mg Vitamin C BID x 14 days, multivitamin with minerals daily 4. At risk for refeeding syndrome: Monitor K, Mg, Phos closely (at least q daily) and replace as needed. Begin 100 mg Thiamine daily x 7 days 5. Please obtain new weight 6. Monitor PO intake, weights, labs, GI function, skin integrity 7. RD to follow Andrew Driscoll Tim is a 58 y.o. male PMH of colonic adenocarcinoma s/p sigmoidectomy with rectosigmoidanastomosis c/b dehiscence requiring end colostomy (presumed) who presents with abdominal abscess. Past History Past Medical History: Diagnosis Date Colon cancer Past Surgical History: Procedure Laterality Date COLECTOMY Nutrition History He is on a regular diet. He ate ~90% of 3 documented meal trays so far this admit. Spoke with patient and family member at bedside today. They report that he has poor PO intake when he was in [place] from March to April d/t being NPO/liquid diet for awhile and disliking the food there. He reports thathe is eating better here and likes the food here better. He also reports that he is drinking the ensure plus nutrition supplements. Team providing them TID on meal trays. No weight history available.He reports that prior to March he weighed ~145 lbs. Weight obtained here is 111 lbs. Patient reportsthat he thinks he is ~132 lbs. Asked RN to obtain new weight as able. Both 111 lbs and 132 lbs showsevere weight loss (9% vs 23% wt loss in 1-2 months). At risk for refeeding now that PO intake improved. Recommend starting thiamine and MVI. Diet Order: Current Diet Orders Procedures DIET REGULAR Standing Status: Standing Number of Occurrences: 1 Ht: 5'8 Current Wt: 50.6 kg IBW:70 kg BMI: 16.95 Weight History: Wt Readings from Last 20 Encounters: 04/30/24 50.6 kg (111 lb 8 oz) -3.8 L since admission meds reviewed: AMIOdarone 200 mg Oral Daily aspirin 81 mg Oral Daily Docusate 100 mg Oral Q12H enoxaparin 40 mg Subcutaneous Q24H piperacillin-tazobactam 4.5 g Intravenous Q8HNS Tamsulosin HCl 0.4 mg Oral Daily Labs reviewed: Na/K+/Phos/Mg/Ca: 137/4.2/2.9/2.0/-- (05/03 416) Bun/Creat/Cl/CO2/Glucose: 7/0.68/103/26/102 (05/03 416) WBC/Hgb/Hct/Plts: 16.82/8.9/28.3/448 (05/03 416) Lab Results Component Value Date ALT 50 04/29/2024 AST 61 (H) 04/29/2024 ALKPHOS 92 04/29/2024 BILITOTAL 0.6 04/29/2024 BILIDIRECT 0.1 04/29/2024 GI: abdominal discomfort; colostomy Colostomy output: 05/02 25 ml 05/01 325 ml 04/30 150 ml Nutrition Focused Physical Exam: Subcutaneous Fat Loss: Orbital: moderate Buccal: severe Triceps: severe Fat Overlying Ribs: deferred Muscle Wasting: Temples (temporalis): moderate Clavicles (pectoralis & deltoids): severe Shoulders (deltoids): severe Interosseous: severe Scapula (latissimus dorsi, trapezious, deltoids): deferred Thigh (quadriceps): severe Calf (gastrocenmius): severe Edema: none documented Skin: Elder Score: 20; Wound Incision 04/29/24 2200 Lower;Right Abdomen (4) Estimated Nutrition Needs: Using current wt (50.6 kg) EEN: 6069-4548 (30-35 kcal/kg) EPN: 75-100 (1.5-2.0 g/kg) Malnutrition Statement: Does the patient meet criteria for malnutrition: Yes Etiology of Malnutrition: Chronic Illness Malnutrition Severity: Severe Protein-Calorie Malnutrition (POA) as evidenced by clinical characteristics: Interpretation of weight loss: > 5% in 1 month Body fat: Severe Muscle mass: Severe *Based on [employer] and [employer] Indicators to Diagnose Malnutrition (AAIM) criteria (2012) Giovanna Alonzo RD Pager:[phone] * Flory Yamila Gregory, VARIET[employer] PERFORMER-[employer]ER - 05/03/2024 9:35 AM EDT Interventional Radiology Progress Note: Procedure: Pelvic drain placement on 04/30/24 (Dr. Delatorre) Subjective: Denies c/o. Family at bedside. Past Medical History: Diagnosis Date Colon cancer Allergies: No Known Allergies Objective: Blood pressure 138/80, pulse 83, temperature 97.7 F (36.5 C), temperature source Axillary, resp. rate 14, height 1.727 m (5' 8), weight 50.6 kg (111 lb 8 oz), SpO2 95%. Exam: General: In no acute distress, alert and oriented Drains: Right posterior pelvic drain with dressing dry and intact, draining small amount of thick, creamy colored fluid into the collection bag Intake/Output Summary (Last 24 hours) at 05/03/2024 1019 Last data filed at 05/03/2024 0937 Gross per 24 hour Intake 801.2 ml Output 2815 ml Net -2013.8 ml 24hr Drain Output: 65 ml Laboratory: Lab Results Component Value Date/Time WBC 16.82 (H) 05/03/2024 04:16 AM PLATELET 448 (H) 05/03/2024 04:16 AM HGB 8.9 (L) 05/03/2024 04:16 AM Fluid Culture: CULTURE Lab Growth EAST [facility]... Moderate Growth Escherichia coli Abnormal [facility]... Susceptibilities not routinely performed. Moderate Growth Streptococcus anginosus group Abnormal [facility]... Susceptibilities not routinely performed. GRAM STAIN Lab Neutrophils, Heavy [facility]... Mononuclear cells present [facility]... Red Blood Cells Present [facility]... Gram Negative Bacilli [facility]... Gram Positive Cocci [facility]... Impression and Plan: Day 3 post percutaneous drain placement for pelvic abscess at rectal stump communicating with rightsubhepatic abscess. We recommend continued routine drain care to include the followin) Flush the drain with 10 ml of sterile saline and aspirate 10 ml followed by a final instillationof 10 ml saline q 8hrs. Flushing forward once daily with 10 ml of saline is sufficient post discharge. 2) Change the dressing at least qod. 3) Consider removal of drain upon resolution of fever, normalization of leukocytosis, and/or reduction of drain output to <20mL/day. If drain output unexpectedly ceases or there is leakage of fluid around the drain, consider re- imaging and notifying VIR team for consideration of drain modification. 4) Place ambulatory referral to IR for drain removal consideration (refer to #3). We encourage primary team to notify IR should we be of further assistance in the care of this patient. BETHANIE Henriquez 05/03/2024 10:19 AM Please send patient home with extra bags - these can be obtained from Distribution WD#[id number] Please send patient home with rx for all needed tube site care supplies. This includes split gauze 4x4 #30, Paper tape #3, refills #3. * Gabriele Felipe MD - 05/03/2024 8:03 AM EDT Images from the original note were not included. SURGERY PROGRESS NOTE SUBJECTIVE: No acute events overnight. Patient did require straight cath x2 for urinary retention overnight. Heis otherwise feeling well and tolerating diet. He is having stoma output. Discussed drain culture results and possibility for narrowing of abx vs rescan tomorrow if white count is uptrending. OBJECTIVE: Temp: [97.7 F (36.5 C)-99.7 F (37.6 C)] 97.7 F (36.5 C) Pulse (Heart Rate): [64-83] 83 Resp Rate: [12-16] 14 BP: (112-144)/(63-86) 138/80 O2 Sat (%): [94 %-98 %] 95 % O2 Sat (%): [94 %-98 %] 95 % O2 Device: room air I&O Intake/Output Summary (Last 24 hours) at 05/03/2024 0804 Last data filed at 05/03/2024 0442 Gross per 24 hour Intake 671.2 ml Output 1650 ml Net -978.8 ml Physical Exam General: Awake, alert, in NAD. Resting comfortably in bed. Cardiovascular: Hemodynamically stable. Regular rate. Pulmonary: Normal respiratory effort. Equal chest rise. Abdomen: Soft, non-tender, non-distended, no rebound/guarding/rigidity or other signs of peritonitis, midline incisional wound with packing strip and dressing in place. LLQ end stoma appears pink, well perfused, with green liquid stool in bag. IR drain with minimal cloudy serosang output. Extremities: Warm and well perfused with gross sensation and motor intact Labs: WBC/Hgb/Hct/Plts: 16.82/8.9/28.3/448 (05/03 416) Na/K+/Phos/Mg/Ca: 137/4.2/2.9/2.0/-- (05/03 416) Bun/Creat/Cl/CO2/Glucose: 7/0.68/103/26/102 (05/03 416) Lab Results Component Value Date ALT 50 04/29/2024 AST 61 (H) 04/29/2024 ALKPHOS 92 04/29/2024 BILITOTAL 0.6 04/29/2024 BILIDIRECT 0.1 04/29/2024 ASSESSMENT/PLAN: Andrew Posada is a 58 y.o. male PMH of colonic adenocarcinoma s/p sigmoidectomy with rectosigmoidanastomosis c/b dehiscence requiring end colostomy (presumed) who presents with abdominal abscess. Additional PMHx is not clear at this time, as patient has limited utilization of healthcare servicesin the [place]. Review of Care Everywhere reveals only prior imaging as well as a positive CDiff pcr test on 10/22/23. Patient presented with a binder of current medications, pending further review and translation, however he notes taking daily aspirin, and prior use of capecitabine (not actively takingas it was not well tolerated). His medication list also appears to include amiodarone 200mg daily. The patient was diagnosed with colon cancer (exact pathology and location unknown) and had colectomy on 03/30/24 in [place], with pathology revealing invasive moderately differentiated adenocarcinoma with 4/13 nodes positive (pT4N1M). [place] the [place], he noted progressive purulent drainage fromthe rectal stump about 1.5 weeks ago and then redness, swelling, and purulent drainage from the anterior abdomen near his surgical incision. He has had a fever as well. Presentation to an OSH resulted in CTAP revealing a large intra- abdominal abscess (7.9cm x 4.9cm), for which IV zosyn was started.Patient had IR drain placement to drain abscess placed on 04/30/24. Daily plan: - Continue zosyn. Cultures with +e. Coli, strep anginosis. Touch base with ID/Pharm/Lab re sensitivities and abx selection. Narrow abx vs rescan tomorrow if white count continues to be uptrending (today is 16.8 from 14.3) - Re-place cisneros today. Coordinate outpatient urology follow up. - Continue diet - Will need ostomy/wound, drain, and cisneros supplies for discharge - Continue telemetry and amiodarone and aspirin Complexity. Underweight, Body mass index is 16.95 kg/m . - Reviewed and agree with registered veterinary technician's recommendations. Any conditions listed below are present on admission unless otherwise specified. . Dispo: pending clinical improvement Please page the [facility] pager with questions or concerns. (Found in [employer] / WebExchange) Gabriele Felipe MD, [facility] General Surgery Pager: [phone] * Shruthi Reese MD - 05/02/2024 9:13 AM EDT Images from the original note were not included. SURGERY PROGRESS NOTE SUBJECTIVE: No acute events overnight. Tolerating diet. Having stoma output. Awaiting sensitivities. OBJECTIVE: Temp: [98.5 F (36.9 C)-100.5 F (38.1 C)] 99.7 F (37.6 C) Pulse (Heart Rate): [62-72] 72 Resp Rate: [14-29] 16 BP: (97-144)/(53-86) 144/86 O2 Sat (%): [95 %-99 %] 97 % O2 Sat (%): [95 %-99 %] 97 % O2 Device: room air I&O Intake/Output Summary (Last 24 hours) at 05/02/2024 0913 Last data filed at 05/02/2024 0659 Gross per 24 hour Intake 2643.01 ml Output 3010 ml Net -366.99 ml Physical Exam General: Awake, alert, in NAD. Resting comfortably in bed. Cardiovascular: Hemodynamically stable. Regular rate. Pulmonary: Normal respiratory effort. Equal chest rise. Abdomen: Soft, non-tender, non-distended, no rebound/guarding/rigidity or other signs of peritonitis, midline incisional wound with packing strip in place. LLQ end stoma appears pink, well perfused. IR drain with cloudy serosang output. Extremities: Warm and well perfused with gross sensation and motor intact Labs: WBC/Hgb/Hct/Plts: 14.26/8.9/27.6/393 (05/02 4) Na/K+/Phos/Mg/Ca: 140/4.1/2.5/1.8/-- (05/02 4-05/02 559) Bun/Creat/Cl/CO2/Glucose: 6/0.69/104/28/101 (05/02 559) Lab Results Component Value Date ALT 50 04/29/2024 AST 61 (H) 04/29/2024 ALKPHOS 92 04/29/2024 BILITOTAL 0.6 04/29/2024 BILIDIRECT 0.1 04/29/2024 ASSESSMENT/PLAN: Andrew Posada is a 58 y.o. male PMH of colonic adenocarcinoma s/p sigmoidectomy with rectosigmoidanastomosis c/b dehiscence requiring end colostomy (presumed) who presents with abdominal abscess. Additional PMHx is not clear at this time, as patient has limited utilization of healthcare servicesin the . Review of Care Everywhere reveals only prior imaging as well as a positive CDiff pcr test on 10/22/23. Patient presented with a binder of current medications, pending further review and translation, however he notes taking daily aspirin, and prior use of capecitabine (not actively takingas it was not well tolerated). His medication list also appears to include amiodarone 200mg daily. The patient was diagnosed with colon cancer (exact pathology and location unknown) and had colectomy on 03/30/24 in [place], with pathology revealing invasive moderately differentiated adenocarcinoma with 4/13 nodes positive (pT4N1M). [place] the [place], he noted progressive purulent drainage fromthe rectal stump about 1.5 weeks ago and then redness, swelling, and purulent drainage from the anterior abdomen near his surgical incision. He has had a fever as well. Presentation to an OSH resulted in CTAP revealing a large intra- abdominal abscess (7.9cm x 4.9cm), for which IV zosyn was started.Patient is on the schedule today (04/30/24) for IR drain placement to drain abscess. Daily plan: - Continue zosyn. Will follow up sensitivites - Start flomax and DC cisneros today. Will follow up void trial - Continue diet - Will need ostomy/wound supplies for discharge - Continue telemetry and amiodarone and aspirin Complexity. Underweight, Body mass index is 16.95 kg/m . - Reviewed and agree with registered veterinary technician's recommendations. Any conditions listed below are present on admission unless otherwise specified. . Dispo: pending clinical intervention and response Please page the [facility] pager with questions or concerns. (Found in [employer] / WebExchange) Shruthi Reese * Almita Saini MD - 05/01/2024 9:22 AM EDT Images from the original note were not included. SURGERY PROGRESS NOTE SUBJECTIVE: No acute interval events. Patient got his IR procedure with drain yesterday. He is doing well. The dressing was changed at bedside this morning. Packing was replaced and covered with abd. OBJECTIVE: Temp: [98.7 F (37.1 C)-99.4 F (37.4 C)] 98.7 F (37.1 C) Pulse (Heart Rate): [62-77] 62 Resp Rate: [16-24] 16 BP: (109-158)/(62-88) 132/76 O2 Sat (%): [92 %-97 %] 94 % Weight: [50.6 kg (111 lb 8 oz)] 50.6 kg (111 lb 8 oz) O2 Sat (%): [92 %-97 %] 94 % O2 Device: room air Flow (L/min): [2] 2 I&O Date 05/01/24 0700 - 05/02/24 0659 Shift 6200-1763 8040-9473 7014-0817 24 Hour Total INTAKE Irrigation 20 20 Shift Total(mL/kg) 20(0.4) 20(0.4) OUTPUT Urine(mL/kg/hr) 350 350 Other 50 50 Stool 0 0 Shift Total(mL/kg) 400(7.9) 400(7.9) Weight (kg) 50.6 50.6 50.6 50.6 Intake/Output Summary (Last 24 hours) at 05/01/2024 0924 Last data filed at 05/01/2024 0756 Gross per 24 hour Intake 555 ml Output 2475 ml Net -1920 ml Physical Exam General: Awake, alert, in NAD. Resting comfortably in bed. Cardiovascular: Hemodynamically stable. Regular rate as evaluated by palpation of pulse. Pulmonary: Normal respiratory effort. Equal chest rise. Abdomen: Soft, non-tender, non-distended, no rebound/guarding/rigidity or other signs of peritonitis, midline incisional wound with erythema and purulent drainage. LLQ end stoma appears pink, well perfused. Extremities: Warm and well perfused with gross sensation and motor intact Labs: WBC/Hgb/Hct/Plts: 15.88/9.1/28.3/366 (05/01 29) Na/K+/Phos/Mg/Ca: 138/4.4/2.4/1.8/-- (05/01 29-05/01 607) Bun/Creat/Cl/CO2/Glucose: 5/0.64/102/30/101 (05/01 607) Lab Results Component Value Date ALT 50 04/29/2024 AST 61 (H) 04/29/2024 ALKPHOS 92 04/29/2024 BILITOTAL 0.6 04/29/2024 BILIDIRECT 0.1 04/29/2024 ASSESSMENT/PLAN: Andrew Posada is a 58 y.o. male PMH of colonic adenocarcinoma s/p sigmoidectomy with rectosigmoidanastomosis c/b dehiscence requiring end colostomy (presumed) who presents with abdominal abscess. Additional PMHx is not clear at this time, as patient has limited utilization of healthcare servicesin the [place]. Review of Care Everywhere reveals only prior imaging as well as a positive CDiff pcr test on 10/22/23. Patient presented with a binder of current medications, pending further review and translation, however he notes taking daily aspirin, and prior use of capecitabine (not actively takingas it was not well tolerated). His medication list also appears to include amiodarone 200mg daily. The patient was diagnosed with colon cancer (exact pathology and location unknown) and had colectomy on 03/30/24 in [place], with pathology revealing invasive moderately differentiated adenocarcinoma with 4/13 nodes positive (pT4N1M). [place] the [place], he noted progressive purulent drainage fromthe rectal stump about 1.5 weeks ago and then redness, swelling, and purulent drainage from the anterior abdomen near his surgical incision. He has had a fever as well. Presentation to an OSH resulted in CTAP revealing a large intra- abdominal abscess (7.9cm x 4.9cm), for which IV zosyn was started.Patient is on the schedule today (04/30/24) for IR drain placement to drain abscess. Daily plan: - advance to regular diet - leave cisneros - follow up drain cultures - place on tele - stop fluids - will need ostomy and wound supplies for discharge Complexity. Underweight, Body mass index is 16.95 kg/m . - Reviewed and agree with registered veterinary technician's recommendations. Any conditions listed below are present on admission unless otherwise specified. . Dispo: pending clinical intervention and response Please page the [facility] pager with questions or concerns. (Found in QGenda / WebExchange) Almita Saini MD General Surgery Resident, PGY1 Pager: [phone] * Gabriele Felipe MD - 04/30/2024 2:01 PM EDT Images from the original note were not included. SURGERY PROGRESS NOTE SUBJECTIVE: No acute interval events. Patient endorses no major changes since last assessed in ED. Awaiting schedule with IR and bed placement. OBJECTIVE: Temp: [98.7 F (37.1 C)-99.1 F (37.3 C)] 98.7 F (37.1 C) Pulse (Heart Rate): [56-75] 66 Resp Rate: [12-26] 20 BP: (115-144)/(68-82) 143/78 O2 Sat (%): [91 %-95 %] 94 % O2 Sat (%): [91 %-95 %] 94 % O2 Device: room air Flow (L/min): [2] 2 I&O Intake/Output Summary (Last 24 hours) at 04/30/2024 1448 Last data filed at 04/30/2024 1437 Gross per 24 hour Intake 15 ml Output 425 ml Net -410 ml Physical Exam General: Awake, alert, in NAD. Resting comfortably in bed. Cardiovascular: Hemodynamically stable. Regular rate as evaluated by palpation of pulse. Pulmonary: Normal respiratory effort. Equal chest rise. Abdomen: Soft, non-tender, non-distended, no rebound/guarding/rigidity or other signs of peritonitis, midline incisional wound with erythema and purulent drainage. LLQ end stoma appears pink, well perfused. Extremities: Warm and well perfused with gross sensation and motor intact Labs: WBC/Hgb/Hct/Plts: 12.78/9.0/27.3/328 (04/30 533) Na/K+/Phos/Mg/Ca: 138/3.3/2.7/1.9/-- (04/30 533-04/30 1138) Bun/Creat/Cl/CO2/Glucose: 6/0.57/101/32/102 (04/30 1138) Lab Results Component Value Date ALT 50 04/29/2024 AST 61 (H) 04/29/2024 ALKPHOS 92 04/29/2024 BILITOTAL 0.6 04/29/2024 BILIDIRECT 0.1 04/29/2024 ASSESSMENT/PLAN: Andrew Posada is a 58 y.o. male PMH of colonic adenocarcinoma s/p sigmoidectomy with rectosigmoidanastomosis c/b dehiscence requiring end colostomy (presumed) who presents with abdominal abscess. Additional PMHx is not clear at this time, as patient has limited utilization of healthcare servicesin the [place]. Review of Care Everywhere reveals only prior imaging as well as a positive CDiff pcr test on 10/22/23. Patient presented with a binder of current medications, pending further review and translation, however he notes taking daily aspirin, and prior use of capecitabine (not actively takingas it was not well tolerated). His medication list also appears to include amiodarone 200mg daily. The patient was diagnosed with colon cancer (exact pathology and location unknown) and had colectomy on 03/30/24 in [place], with pathology revealing invasive moderately differentiated adenocarcinoma with 4/13 nodes positive (pT4N1M). [place] the [place], he noted progressive purulent drainage fromthe rectal stump about 1.5 weeks ago and then redness, swelling, and purulent drainage from the anterior abdomen near his surgical incision. He has had a fever as well. Presentation to an OSH resulted in CTAP revealing a large intra- abdominal abscess (7.9cm x 4.9cm), for which IV zosyn was started.Patient is on the schedule today (04/30/24) for IR drain placement to drain abscess. Daily plan: -- pending IR drain placement, midline wound cxs -- Diet: NPO -- IVF: D51/2NS + 20KCL -- q6h potassium checks, prn replacements -- Antibiotics: Zosyn 4.5g q8h empiric -- Pain Control: prn oxy -- Prophylaxis: SCDs, VTE Chemoprophylaxis - on hold pending IR procedure -- Activity: OOB x4, ambulation, IS use post-procedure - will need ostomy and wound supplies for discharge Complexity. Hypokalemia - Continue to monitor and replete. Any conditions listed below are present on admission unless otherwise specified. . Dispo: pending clinical intervention and response Please page the [facility] pager with questions or concerns. (Found in QGenda / WebExchange) ALL URGENT ISSUES SHOULD BE PAGED TO THE ABOVE PAGER - IHIS chat is not a reliable method of communication with a surgical service at any time. - The person who wrote this note may be in the operating room, off service, post call, or otherwiseunavailable. Gabriele Felipe MD, [facility] General Surgery Pager: [phone] documented [facility]* Nursing Notes - Giovanna Cifuentes RN - 05/08/2024 8:41 PM EDT 2040 MD Sanders paged: I got in report that MIVF were discontinued but the order is still in. Patient is not hooked up please clarify. Thanks [phone] MD Sanders returned page. MIVF order discontinued. [place]07-19-2024 Procedure note* Catherine Delatorre II, MD - 05/07/2024 4:27 PM EDTAssociated Order(s): GENERAL PROCEDURE INTERVENTIONAL RADIOLOGY BRIEF PROCEDURE NOTE PROCEDURE PERFORMED BY: MD Juan Ramon ATTENDING: MD Juan Ramon PROCEDURE DATE: 05/07/2024 4:27 PM PRE PROCEDURE DIAGNOSIS: History of right paracolic gutter abscess POST PROCEDURE DIAGNOSIS: History of right paracolic gutter abscess PROCEDURE: CT guided drain placement CONSENT: Informed consent was obtained prior to the procedure after discussion of the risks, benefits, and alternatives and expected outcomes were discussed with the patient; consent placed in chart.The possibilities of reaction to medication, pulmonary aspiration, bleeding, infection, the need for additional procedures, failure to diagnosis a condition, and creating a complication requiring transfusion or operation were discussed with the patient. The patient concurred with the proposed plan,giving informed consent. UNIVERSAL PROTOCOL: Preprocedure verification is complete- patient verified and consents confirmed. ANESTHESIA: Moderate Sedation ESTIMATED BLOOD LOSS: Minimal FINDINGS: Redemonstration of air containing fluid collection in the right paracolic gutter. Using CT guidance, a 10 Fr pigtail drainage catheter was placed into the collection. A total of 30 ccs thick avery colored fluid was aspirated. Sample sent for labs. CONDITION: Stable. Patient tolerated procedure well. COMPLICATIONS: None. SPECIMEN: 10 ccs thick avery fluid IMPRESSION/PLAN: CT guided placement of a 10 Fr pigtail drain into the right abdominal abscess. Samples obtained and sent to lab. [place] Work Phone: 1(325) 955-776207-19-2024 Procedure note* Catherine Delatorre II, MD - 05/07/2024 4:27 PM EDTAssociated Order(s): GENERAL PROCEDURE INTERVENTIONAL RADIOLOGY BRIEF PROCEDURE NOTE PROCEDURE PERFORMED BY: MD Juan Ramon ATTENDING: MD Juan Ramon PROCEDURE DATE: 05/07/2024 4:27 PM PRE PROCEDURE DIAGNOSIS: History of right paracolic gutter abscess POST PROCEDURE DIAGNOSIS: History of right paracolic gutter abscess PROCEDURE: CT guided drain placement CONSENT: Informed consent was obtained prior to the procedure after discussion of the risks, benefits, and alternatives and expected outcomes were discussed with the patient; consent placed in chart.The possibilities of reaction to medication, pulmonary aspiration, bleeding, infection, the need for additional procedures, failure to diagnosis a condition, and creating a complication requiring transfusion or operation were discussed with the patient. The patient concurred with the proposed plan,giving informed consent. UNIVERSAL PROTOCOL: Preprocedure verification is complete- patient verified and consents confirmed. ANESTHESIA: Moderate Sedation ESTIMATED BLOOD LOSS: Minimal FINDINGS: Redemonstration of air containing fluid collection in the right paracolic gutter. Using CT guidance, a 10 Fr pigtail drainage catheter was placed into the collection. A total of 30 ccs thick avery colored fluid was aspirated. Sample sent for labs. CONDITION: Stable. Patient tolerated procedure well. COMPLICATIONS: None. SPECIMEN: 10 ccs thick avery fluid IMPRESSION/PLAN: CT guided placement of a 10 Fr pigtail drain into the right abdominal abscess. Samples obtained and sent to lab. * Nghia Becerra MD - 04/30/2024 4:57 PM EDTAssociated Order(s): CASE REQUEST DEPARTMENT USE ONLY INTERVENTIONAL RADIOLOGY PROCEDURE NOTE PROCEDURE PERFORMED BY: Attending Catherine Delatorre MD; Nghia Becerra MD (Resident) PROCEDURE DATE: 04/30/24 4:57 PM PRE PROCEDURE DIAGNOSIS: Pelvic abscess at the rectal stump POST PROCEDURE DIAGNOSIS: Pelvic abscess at the rectal stump PROCEDURE: Image Guided 10-Sudanese Drain placement. Please refer to the imaging tab for the full dictation final report. CONSENT: Informed consent was obtained prior to the procedure after discussion of the risks, benefits, and alternatives and expected outcomes were discussed with the patient; consent placed in chart. UNIVERSAL PROTOCOL: Preprocedure verification is complete- patient verified and consents confirmed. ANESTHESIA: Moderate sedation and local anesthetic ESTIMATED BLOOD LOSS: Minimal CONDITION: Stable. Patient tolerated procedure well. COMPLICATIONS: None. SPECIMEN: 200 mL of purulent green pus IMPRESSION/PLAN: Successful placement of a 10-Sudanese abdominal drain in the pelvis. Flush with 5-10 mL normal saline Consider removal of drain upon resolution of fever, normalization of leukocytosis, and/or reductionof drain output to <20mL/day. If drain output unexpectedly ceases or there is leakage of fluid around the drain, consider re- imaging and notifying VIR team for consideration of drain modification. Thank you for allowing Interventional Radiology to participate in this patient's care. Nghia Becerra MD documented in this encounter[facility] Nurse Note* Nursing Notes - Arron Lamar RN - 05/07/2024 4:24 PM EDT Interventional Radiology procedure completed of image guided drain placement with IR Attending Juan Ramon with sedation and local numbing agent. Intra- procedure specimens collected and sent to lab foranalysis. Pt to travel back to [place] [id number] for post procedure recovery. [facility] Nurse Note* Nursing Notes - Susie Fuentes RN - 05/07/2024 3:46 PM EDT 05/07/24 1545 Referral Information Arrived From emergency department Final Discharge Planning Discharge Disposition Home CM/SW AVS Portion Completed Yes Plan Plan Home with possible home health care if available (drew visits) Patient/Family In Agreement With Plan yes Transport Request Mode of Transfer Private Vehicle [facility] Discharge Note Patient discussed in medical rounds for discharge to home possibly this weekend. Having additional drain placed today. PCRM met with the patient/family/spouse to discuss final discharge plan. Services for Discharge Spouse did request we look for a [facility] agency that could do 1 or 2 home drew visits. Referrals started, no accepting [facility] at this time. Timer extended to tomorrow. Handoff placed for float PCRM. Consults with Final Discharge Recommendations IR- drains being placed, will continue to flush after discharge Lines/Tubes/Drains/Wounds/Supplies IR drain x 2- will need to be flushed, bedside RN to send out with flushes and teach spouse Midline incision with ribbon- will need to teach spouse and send out with supplies Cisneros- Void trial appointment next week Colostomy- has been educated and caring for this. Medications No barriers anticipated in obtaining discharge medications. No prior authorizations anticipated. Reconciliation of medications to be completed by the medical team. Unsure of final antibiotic course for patient- handoff placed to follow up once known if leaving this weekend. Durable Medical Equipment Pt has plenty of ostomy supplies at home Pt will need wound care and flushing supplies, cisneros supplies. Choice Was Patient Choice Provided: N/A Transportation Transportation will be provided by family. Education Discharge education provided by the medical team and updated in the After Visit Summary. Spouse will need to be educated on wound care, cisneros care and drain care. Bedside RN updated. Follow Up(s) Any follow up requested by the medical team arranged. Appointments in the After Visit Summary. Future Appointments Provider Department Center 05/12/2024 8:00 AM Anjali Denton; UROLOGY NURSE Steven, [facility] [place] Arrive at: Arrive to 2nd Floor, Registration [address] EEI 05/20/2024 1:00 PM [facility] Imaging at [facility] Outpatient Care Arrive at: Arrive to First Floor Registration JO 05/20/2024 1:45 PM Hilary Lewis [facility] Outpatient Care [place] Arrive at: Arrive to 1st Floor Registration [facility] Was Ambulatory PCRM added to the Care Team? No- No outpatient PCRM for this physician The PCRM has updated the patient's nurse regarding the final discharge plan. Risk of Readmission: 5.4 Category Reference: Low: 0% - 5% Medium - Low: 5.1% - 10% Medium - High: 10.1% - 16% High: 16.1% - 100% Readmission Risk Interventions Documented: Yes No other discharge needs have been identified at this time. This plan was developed in collaboration with the patient and caregiver/preferred decision maker. Patient and family are in agreement with final discharge plan. Please refer to AVS and medical record for additional information. Patient instructed to call with questions. PCRM will continue to follow with medical team for any additional discharge planning needs. AUDRA Moreno Colorectal Surgery [phone] For evening and weekend discharge assistance: Pager for network operations specialist PCRM at [phone] Pager for network operations specialist [phone] [place]07-19-2024 Nurse Surgical operation note* Christy French RN - 05/07/2024 3:01 PM EDT Patient denies history of radiation or chemo. Patient denies history of seizures or strokes. Patient reports abdominal mesh from previous hernia surgery. [place]07-19-2024 Nurse Note* Christy French RN - 05/07/2024 3:01 PM EDT Patient denies history of radiation or chemo. Patient denies history of seizures or strokes. Patient reports abdominal mesh from previous hernia surgery. * Aracelis Stinson RN - 04/30/2024 3:29 PM EDT Patient denies hx of chemo and radiation. Patient denies metal or foreign objects in body EXCEPT abdominal mesh. Patient denies hx of seizure or stroke. documented in this encounterCenterville07-19-2024 Nurse Note* Nursing Notes - Karen Laboy RN - 05/07/2024 11:26 AM EDT WOC/ET FOLLOW UP NOTE: In to see Mr. Posada for colostomy education. His said they don't need help with anything regarding colostomy care today. She also said they have plenty of supplies right now. Pt was up and ambulating back from the bathroom with the RECEIVING MANAGER during visit. 05/07/24 1100 Plan Problem colostomy, est Current Plan ostomy prescription done;lesson, first Visit Type Consult with RN WOCT Visit Frequency PRN Last Date Seen 05/07/24 Karen REED, RN-, [facility] [phone] [place]07-18-2024 Nurse Note* Nursing Notes - Susie Fuentes RN - 05/06/2024 12:47 PM EDT Patient was discussed in morning rounds. Last 24 Hour Updates: Andrew Posada is a 58 y.o. male PMH of colonic adenocarcinoma s/p sigmoidectomy with rectosigmoid anastomosis c/b dehiscence requiring end colostomy (presumed) who presents with abdominal abscess. His original surgery was completed in [place]. Outside hospital completed a scan- CTAP revealing a large intra-abdominal abscess (7.9cm x 4.9cm), for which IV zosyn was started. Patient had IR drain placement to drain abscess placed on 04/30/24. Pt is on IV Zosyn and following cultures and sensitivities. Cisneros in place for urinary retention. He has an opened midline wound whichis changing the dressing BID. His WBC was elevated again yesterday despite antibioitics, repeat CTAP to further evaluate known fluid collections following drain placement. After scans, IR consulted to see if they could place another drain to continue to drain areas of fluid collections. IR procedure to be completed tomorrow. Current Discharge Plan: Home, no insurance, [facility] [place] Pending; to assist with cisneros, drain (with flushing), wound and will need to be on oral antibiotics for discharge. AUDRA will continue to follow for ongoing needs and planning. AUDRA Moreno [phone] For evening and weekend discharge assistance: Pager for network operations specialist PCRYe at [phone] Pager for network operations specialist [phone] [place]07-18-2024 Plan of care note* Plan of Care - Rosy Gudino RN - 05/06/2024 7:57 AM EDT Interventional Radiology Procedural Planning Note Requested procedure: CT Guided Drain Placement Date of H&P reviewed: 05/06/24 Sedation: moderate Thank you for your referral to Interventional Radiology. Your request for drain placement for your patient has been reviewed and approved for scheduling. Your patient is an ADD ON to our schedule TOMORROW 05/07. Time to be determined. Please note that emergent cases will take priority over any addedon cases. Special Considerations: Please make patient NPO at midnight prior to the procedure Coagulation goals: Hemoglobin > 8, Platelets > 50, INR < 1.5 Blood pressure goal: 160s/90 or lower Anticoagulation, if any not listed, will need to be held per guidelines Your patient will need to be able to tolerate lying flat for approximately one hour. A working PIV is required to sedate your patient. For questions or concerns please call us directly at [phone] for questions [phone]. [facility] Consult note* Jon Tapia MD - 05/05/2024 4:56 PM EDTAssociated Order(s): IP CONSULT TO INTERVENTIONAL RADIOLOGY Images from the original note were not included. Vascular Interventional Radiology Consult Note [facility] [phone] - Interventional Radiology Scheduling [phone] [facility] first responder [phone] - [facility] first responder [id number] PATIENT: Mr. Andrew Posada Admission Date: 04/30/2024 Requesting Provider/Service: Hilary Lewis MD // COLORECTAL SURGERY Reason for Consult: repeat CTAP with persistent paracolic fluid collection, wbc elevation despiteprior pelvic drain - please consider for additional drain placement HPI/Imaging Findings: Andrew Posada is a 58 y.o. male with a past medical history of colonic adenocarcinoma s/p partial colectomy with rectosigmoid anastomosis c/b dehiscence requiring end colostomy. Recent imaging demonstrated multiple abdominopelvic collections. Patient recently underwent IR drain placement into pelvic collection with improvement in leukocytosis. However, re-acceleration of leukocytosis prompted repeat CTAP which showed decreased size of multiple abdominopelvic collections, satisfactory placement of drain in pelvic collection, and persistent dominant right paracolic gutter/inferior hepatic gas-containing collection. Interventional Radiology is consulted for possible additional drain placement into right paracolic gutter/inferior hepatic collection. Recent imaging and labs independently reviewed. Past Medical History: Diagnosis Date Colon cancer Past Surgical History: Procedure Laterality Date COLECTOMY Social History Tobacco Use Smoking status: Never Smokeless tobacco: Never Substance Use Topics Alcohol use: Not Currently Drug use: Never No family history on file. AMIOdarone 200 mg Oral Daily Ascorbic acid 250 mg Oral BID aspirin 81 mg Oral Daily Docusate 100 mg Oral Q12H enoxaparin 40 mg Subcutaneous Q24H Multivitamin w/ minerals (THERAPEUTIC-M) 1 tablet Oral Daily piperacillin-tazobactam 4.5 g Intravenous Q8HNS Tamsulosin HCl 0.4 mg Oral Daily thiamine 100 mg Intravenous Daily zinc sulfate 220 mg Oral Before BKF Acetaminophen, magnesium oxide OR magnesium oxide OR magnesium sulfate OR magnesium sulfate, Ondansetron OR Ondansetron 4mg/2ml, oxyCODONE OR oxyCODONE, Phenol, Potassium chlorideOR Potassium Bicarb-Citric Acid OR potassium chloride, Prochlorperazine OR Prochlorperazine, Sodium chloride 0.9%, Sodium-potassium phosphate OR Sodium-potassium phosphate OR sodium phosphate OR sodium phosphate Blood pressure 116/64, pulse 76, temperature 99.9 F (37.7 C), temperature source Oral, resp. rate 16, height 1.727 m (5' 8), weight 52.9 kg (116 lb 11.2 oz), SpO2 97%. Pertinent Labs: Lab Results Component Value Date/Time HGB 8.8 (L) 05/05/2024 02:52 AM PLATELET 488 (H) 05/05/2024 02:52 AM INR 1.4 (H) 04/29/2024 12:12 AM SODIUM 135 05/05/2024 02:52 AM POTASSIUM 4.5 05/05/2024 02:52 AM GFR >90 05/05/2024 02:52 AM Laboratory Data: Lab Results Component Value Date WBC 17.33 (H) 05/05/2024 HGB 8.8 (L) 05/05/2024 HCT 27.5 (L) 05/05/2024 PLATELET 488 (H) 05/05/2024 MCV 91.7 05/05/2024 Lab Results Component Value Date SODIUM 135 05/05/2024 POTASSIUM 4.5 05/05/2024 CHLORIDE 102 05/05/2024 CO2 24 05/05/2024 BUN 13 05/05/2024 CREATSERUM 0.73 05/05/2024 GLUCOSE 104 (H) 05/05/2024 Allergies: No Known Allergies ASSESSMENT / IMPRESSION Andrew Posada is a 58 y.o. male with multiple abdominopelvic collections s/p IR drain placement into pelvic collection 5 days prior with repeat imaging demonstrating persistent, 7-8 cm right paracolic gutter/inferior gas-containing hepatic collection as well as decreased size of multiple other, smaller abdominopelvic collections. Interventional Radiology consulted for image-guided drain placement into dominant right paracolic gutter/inferior hepatic collection. RECOMMENDATIONS / PLAN Plan for CT-guided DRAIN PLACEMENT into RIGHT PARACOLIC GUTTER/INFERIOR HEPATIC COLLECTION pending scheduling availability. Barriers to Consent: None Sedation Anticipated: Moderate Code Status: Full Code Will schedule as imaging suite availability permits. Please make patient NPO at midnight prior to the procedure Coagulation goals: Hemoglobin > 8, Platelets > 50, INR < 1.5 Blood pressure goal: 160s/90 or lower Anticoagulation, if any not listed, will need to be held per guidelines Consult reviewed with IR Attending: Dr. CARMEN CHAMBERS Thank you for involving Interventional Radiology in the care of this patient. Important Notes Procedures are performed with either moderate sedation or anesthesia services. Both require the patient to be NPO (which includes tube feeds). Patients will need to lie flat comfortably for the duration of the procedure. Please be aware that patients requiring anesthesia services will require additional coordination which may increase the time from consult to procedure. Questions For questions regarding [facility] Inpatients please call [phone]. For questions regarding [facility] Inpatients please call [phone]. For questions regarding Biopsies, please call [phone]. [facility] Work Phone: 1(173) 561-390607-17-2024 Consult note* Jon Tapia MD - 05/05/2024 4:56 PM EDTAssociated Order(s): IP CONSULT TO INTERVENTIONAL RADIOLOGY Images from the original note were not included. Vascular Interventional Radiology Consult Note Inter[facility] Clinic [phone] - Interventional Radiology Scheduling [phone] [facility] first responder [id number] - [facility] first responder [id number] PATIENT: Mr. Andrew Posada Admission Date: 04/30/2024 Requesting Provider/Service: Hilary Lewis MD // COLORECTAL SURGERY Reason for Consult: repeat CTAP with persistent paracolic fluid collection, wbc elevation despiteprior pelvic drain - please consider for additional drain placement HPI/Imaging Findings: Andrew Posada is a 58 y.o. male with a past medical history of colonic adenocarcinoma s/p partial colectomy with rectosigmoid anastomosis c/b dehiscence requiring end colostomy. Recent imaging demonstrated multiple abdominopelvic collections. Patient recently underwent IR drain placement into pelvic collection with improvement in leukocytosis. However, re-acceleration of leukocytosis prompted repeat CTAP which showed decreased size of multiple abdominopelvic collections, satisfactory placement of drain in pelvic collection, and persistent dominant right paracolic gutter/inferior hepatic gas-containing collection. Interventional Radiology is consulted for possible additional drain placement into right paracolic gutter/inferior hepatic collection. Recent imaging and labs independently reviewed. Past Medical History: Diagnosis Date Colon cancer Past Surgical History: Procedure Laterality Date COLECTOMY Social History Tobacco Use Smoking status: Never Smokeless tobacco: Never Substance Use Topics Alcohol use: Not Currently Drug use: Never No family history on file. AMIOdarone 200 mg Oral Daily Ascorbic acid 250 mg Oral BID aspirin 81 mg Oral Daily Docusate 100 mg Oral Q12H enoxaparin 40 mg Subcutaneous Q24H Multivitamin w/ minerals (THERAPEUTIC-M) 1 tablet Oral Daily piperacillin-tazobactam 4.5 g Intravenous Q8HNS Tamsulosin HCl 0.4 mg Oral Daily thiamine 100 mg Intravenous Daily zinc sulfate 220 mg Oral Before BKF Acetaminophen, magnesium oxide OR magnesium oxide OR magnesium sulfate OR magnesium sulfate, Ondansetron OR Ondansetron 4mg/2ml, oxyCODONE OR oxyCODONE, Phenol, Potassium chlorideOR Potassium Bicarb-Citric Acid OR potassium chloride, Prochlorperazine OR Prochlorperazine, Sodium chloride 0.9%, Sodium-potassium phosphate OR Sodium-potassium phosphate OR sodium phosphate OR sodium phosphate Blood pressure 116/64, pulse 76, temperature 99.9 F (37.7 C), temperature source Oral, resp. rate 16, height 1.727 m (5' 8), weight 52.9 kg (116 lb 11.2 oz), SpO2 97%. Pertinent Labs: Lab Results Component Value Date/Time HGB 8.8 (L) 05/05/2024 02:52 AM PLATELET 488 (H) 05/05/2024 02:52 AM INR 1.4 (H) 04/29/2024 12:12 AM SODIUM 135 05/05/2024 02:52 AM POTASSIUM 4.5 05/05/2024 02:52 AM GFR >90 05/05/2024 02:52 AM Laboratory Data: Lab Results Component Value Date WBC 17.33 (H) 05/05/2024 HGB 8.8 (L) 05/05/2024 HCT 27.5 (L) 05/05/2024 PLATELET 488 (H) 05/05/2024 MCV 91.7 05/05/2024 Lab Results Component Value Date SODIUM 135 05/05/2024 POTASSIUM 4.5 05/05/2024 CHLORIDE 102 05/05/2024 CO2 24 05/05/2024 BUN 13 05/05/2024 CREATSERUM 0.73 05/05/2024 GLUCOSE 104 (H) 05/05/2024 Allergies: No Known Allergies ASSESSMENT / IMPRESSION Andrew Posada is a 58 y.o. male with multiple abdominopelvic collections s/p IR drain placement into pelvic collection 5 days prior with repeat imaging demonstrating persistent, 7-8 cm right paracolic gutter/inferior gas-containing hepatic collection as well as decreased size of multiple other, smaller abdominopelvic collections. Interventional Radiology consulted for image-guided drain placement into dominant right paracolic gutter/inferior hepatic collection. RECOMMENDATIONS / PLAN Plan for CT-guided DRAIN PLACEMENT into RIGHT PARACOLIC GUTTER/INFERIOR HEPATIC COLLECTION pending scheduling availability. Barriers to Consent: None Sedation Anticipated: Moderate Code Status: Full Code Will schedule as imaging suite availability permits. Please make patient NPO at midnight prior to the procedure Coagulation goals: Hemoglobin > 8, Platelets > 50, INR < 1.5 Blood pressure goal: 160s/90 or lower Anticoagulation, if any not listed, will need to be held per guidelines Consult reviewed with IR Attending: Dr. CARMEN CHAMBERS Thank you for involving Interventional Radiology in the care of this patient. Important Notes Procedures are performed with either moderate sedation or anesthesia services. Both require the patient to be NPO (which includes tube feeds). Patients will need to lie flat comfortably for the duration of the procedure. Please be aware that patients requiring anesthesia services will require additional coordination which may increase the time from consult to procedure. Questions For questions regarding [facility] Inpatients please call [phone]. For questions regarding [facility] Inpatients please call [phone]. For questions regarding Biopsies, please call [phone]. [facility] Note* Nursing Notes - Dorcas Krishnamurthy RN - 05/04/2024 4:17 PM EDT Images from the original note were not included. WOC/ET Nursing Consult/Evaluation Note Evaluated Andrew Posada for ostomy located in LLQ. Description of stoma: LLQ presumed end colostomy from 03-30-24 from surgery in [place] for colon cancer. Stoma moist red, budded, 1 1/2'', functioning with soft brown stool. Opal at bedside, she was taught how to carefor colostomy at outside hospital and was sent home with 2-piece [employer] pouches. He is currentlywearing a 1-piece pouch from here but they prefer 2-piece system. No insurance. Pouch changed todayfor continued education, provided with printed education material and kit with pouches. I gave him coloplast flat 1-piece pouches [id number] and our 2-piece flat 2 10/23'' [employer] system. They seem to prefer at this time [employer]ola 2-piece brand but we do not stock these. I will write a script for supply numbers to help guide them as what they can out of pocket buy from various outlets such as [employer] and the ostomy companies like Dong[employer], Coloplast, and [employer]. PCRM working on setting up supply company hardship programs. After working with I do not think they need more hands on education but we are available if anything comes up or we need to refresh anything before DC. Provided them with our contact numbers in case questions arise at home. See image(s) below: Elder Skin Assessment: Elder Risk Assessment Sensory Perception: 4-->no impairment Moisture: 4-->rarely moist Activity: 3-->walks occasionally Mobility: 3-->slightly limited Nutrition: 3-->adequate Friction and Shear: 3-->no apparent problem Elder Score: 20 Elder Score: Elder Score: 20 Body mass index is 17.74 kg/m . Total time spent in assessment and treatment of patient: 60 minutes spent providing patient care. LABS: Albumin Date Value Ref Range Status 04/29/2024 2.6 (L) 3.5 - 5.0 g/dL Final No results found for: PREALBUMIN Ostomy Documentation: 05/04/24 1615 Colostomy 03/30/24 1000 Placement Date/Time: 03/30/24 1000 Present On Admission : yes Location: LLQ;medial Wound Image Stoma Appearance round;moist;red;protruding above skin level Peristomal Skin dry;intact Appliance changed;2-piece Date Appliance Changed 05/04/24 Accessories/Skin Care cleansed with water Stoma Function flatus;stool Tolerance no signs/symptoms of discomfort Stool Output (mL) 50 Plan Current Plan ostomy prescription done;lesson, first WOCT Visit Frequency Fri Last Date Seen 05/04/24 RN notified of assessment and plan. Please page #[phone] or reconsult with any further needs. Dorcas Krishnamurthy RN [facility]* Nursing Notes - Susie Fuentes RN - 05/04/2024 2:40 PM EDT Patient was discussed in morning rounds. Last 24 Hour Updates: Pt had cisneros in place- will discharge with this and referral made for OP Urology, inServio message sent to get appointment. Pt had IR drain placed, pt will flush that at discharge. Pt has a ribbon to midline incision, will send out with wound care supplies. Team would like CT scan scheduled in 2-3 weeks, requested order to schedule. Current Discharge Plan: Pt is self pay; no insurance. Pt will need to pay for discharge medications. Supplies to be provided. Awaiting final antibiotic regimen. Email to Financial sent to inquire about resources/drew available. PCRM will continue to follow for ongoing needs and planning. AUDRA Moreno [phone] For evening and weekend discharge assistance: Pager for network operations specialist PCRM at [phone] Pager for network operations specialist [phone] Addendum: CT scan scheduled. [facility] Plan of care note* Plan of Care - Giovanna Alonzo RD - 05/03/2024 2:53 PM EDT Problem: Oral Intake Inadequate Goal: Optimal Oral Intake Outcome: Progressing Nutrition Recommendations and Plan of Care: 1. Continue current diet as tolerated 2. Continue to provide Ensure Plus TID (provides 350 kcal, 13-16 g pro per serv) 3. Begin wound healing vitamins: 220 mg Zinc Sulfate daily x 14 days, 250 mg Vitamin C BID x 14 days, multivitamin with minerals daily 4. At risk for refeeding syndrome: Monitor K, Mg, Phos closely (at least q daily) and replace as needed. Begin 100 mg Thiamine daily x 7 days 5. Please obtain new weight 6. Monitor PO intake, weights, labs, GI function, skin integrity 7. RD to follow [place]07-14-2024 Nurse Note* Nursing Notes - Nuria Starks RN - 05/02/2024 6:16 PM EDT IHIS chat with MD Blake: pt able to void another 50ml. Bladder scan was 330ml. [facility]07-14-2024 Nurse Note* Nursing Notes - Nuria Starks RN - 05/02/2024 9:57 AM EDT IHIS chat with Erasto STANTON: 'Just want to clarify the dc cisneros order. Is there a certain amount of time you want me to wait after flomax given before removing cisneros or is it just give flomax and remove cisneros immediately after given? ' Per MD, remove cisneros 1 hour after flomax given. [facility]07-12-2024 Nurse Note* Nursing Notes - Luz Marina Ramos RN - 04/30/2024 11:06 PM EDT This nurse paged the on-call provider:This is Luz Marina Alves. Mr. Posada in [phone] can we discontinue his scheduled Tylenol and place a PRN order? He only wants one Tylenol when he needs it. My # [phone]:Tylenol order changed from scheduled to PRN. This nurse will continue to monitor and will report as necessary. [facility]07-12-2024 Procedure note* Nghia Becerra MD - 04/30/2024 4:57 PM EDTAssociated Order(s): CASE REQUEST DEPARTMENT USE ONLY INTERVENTIONAL RADIOLOGY PROCEDURE NOTE PROCEDURE PERFORMED BY: Attending Catherine Delatorre MD; Nghia Becerra MD (Resident) PROCEDURE DATE: 04/30/24 4:57 PM PRE PROCEDURE DIAGNOSIS: Pelvic abscess at the rectal stump POST PROCEDURE DIAGNOSIS: Pelvic abscess at the rectal stump PROCEDURE: Image Guided 10-Sudanese Drain placement. Please refer to the imaging tab for the full dictation final report. CONSENT: Informed consent was obtained prior to the procedure after discussion of the risks, benefits, and alternatives and expected outcomes were discussed with the patient; consent placed in chart. UNIVERSAL PROTOCOL: Preprocedure verification is complete- patient verified and consents confirmed. ANESTHESIA: Moderate sedation and local anesthetic ESTIMATED BLOOD LOSS: Minimal CONDITION: Stable. Patient tolerated procedure well. COMPLICATIONS: None. SPECIMEN: 200 mL of purulent green pus IMPRESSION/PLAN: Successful placement of a 10-Sudanese abdominal drain in the pelvis. Flush with 5-10 mL normal saline Consider removal of drain upon resolution of fever, normalization of leukocytosis, and/or reductionof drain output to <20mL/day. If drain output unexpectedly ceases or there is leakage of fluid around the drain, consider re- imaging and notifying VIR team for consideration of drain modification. Thank you for allowing Interventional Radiology to participate in this patient's care. Nghia Becerra MD [place]07-12-2024 Nurse Note* Nursing Notes - Miguel A Heaton RN - 04/30/2024 4:43 PM EDT Interventional Radiology procedure completed of image guided drain placement with IR Attending Dr Delatorre with sedation and local numbing agent. Intra- procedure specimens collected and sent to lab for analysis. Pt to travel back to inpatient room for post procedure recovery. [facility]07-12-2024 Nurse Surgical operation note* Aracelis Stinson RN - 04/30/2024 3:29 PM EDT Patient denies hx of chemo and radiation. Patient denies metal or foreign objects in body EXCEPT abdominal mesh. Patient denies hx of seizure or stroke. [facility]07-12-2024 Hospital Discharge instructions* Discharge Instructions* Susie Fuentes RN - 04/30/2024 3:10 PM EDT Images from the original note were not included. COLORECTAL ADDITIONAL CONTACTS For Concerns During Weekend or Evening Hours: -If you have questions or concerns call and ask the multiple resaw operator to page the certified surgical tech/first assistant network operations specialist. Reminder: [employer] messaging goes unmonitored during evenings and weekends. Any concerns or questions during this time, please call using instructions above. Clinic Office Main Number: [phone] Colorectal non-Cancer: [phone] Fax Line: [phone] Supervisor Type Disk Quality Control: Susie Fuentes ([facility]) SW: Xi Rollins ([facility]) ENTEROSTOMAL THERAPY RN + OSTOMY Clinic+ IMPORTANT: Automated Post Discharge Call Patient Information As part of your care, we will call you at the primary number we have on file, the day after you aredischarged at 9:30 a.m. to check on you. Please expect a two-minute automated telephone call from the hospital. This call will come from [phone]. If you are unable to answer or do not receive the automated call, please call [phone] to complete this important evaluation. By answering the phone evaluation, a [facility] nurse will be notified if you have any questions or concerns and call you back. If you have an immediate medical need call your doctor s office, or if you have a medical emergencycall 911. * Medications* Susie Fuentes RN - 05/07/2024 3:42 PM EDT Pain Medication A prescription for pain medicine may be sent home with you. Do not drive while taking prescription pain medicine. Eat when taking pain medicines to avoid nausea. When your pain decreases switch to over the counter acetaminophen, like Tylenol. Follow the dose aslabel directs. * Discharge Instr - Activity* Gabriele Felipe MD - 04/30/2024 3:09 PM EDT Activity as tolerated from your surgery. No restrictions. Provide care for drains as instructed. * Discharge Instr - Diet* Susie Fuentes RN - 04/30/2024 3:09 PM EDT For the next 6 weeks follow the below diet: Low Fiber Diet A diet low in fiber can help keep your stomach and bowels from being irritated. This diet provides foods that are non-irritating and easily digested. If carefully planned, this diet can provide you with most nutrients you need to be healthy. However, over a long period of time, you may find it hardto eat enough fruits and vegetables. Your diet may also be too low in calcium. Talk to your doctor or dietitian about taking a multivitamin or liquid nutritional supplement. Bread Choose breads without seeds or nuts. Foods allowed: Breads, rolls, pancakes, waffles, and crackers made with enriched, refined white flour Soda crackers [place] Toasts Foods to avoid: Bread containing bran or coarse whole grain Rolls, pancakes, waffles, and crackers made with whole grains Cereals, Pasta, Grains, and Potatoes Choose grain foods with less than 2 grams of dietary fiber per serving. Foods allowed: Refined cooked cereal, such as Cream of Rice, Cream of Wheat, grits, strained oatmeal, Malt-O-Meal Dry cereal, such as cornflakes, puffed rice, Rice Krispies, Honey Smacks, Special K White flour White potatoes, without skin, prepared any way, except fried Mashed sweet potatoes, without skin White rice White pasta Foods to avoid: Whole grain or bran cereal, such as shredded wheat, All Bran, Fiber One, Nutri- Grain, and granola Popcorn Fried potatoes or other substitutes not listed as allowed Brown and wild rice Potato skins Whole wheat pasta products Desserts / Sweets Foods allowed: Da food and sponge cakes Plain cakes with simple frosting Plain cookies Ice cream, sherbet Fruit Whips Gelatin desserts Puddings Custard Sugar Syrup Honey Jelly Molasses Hard candy Foods to avoid: Rich pastries Desserts, which contain nuts, coconut, or fruits that are unapproved All fruit not listed as allowed Jams, preserves, and marmalade Candy with nuts, raisins, or fruits are not allowed Vegetables Foods allowed: Well cooked vegetables Vegetables without skin or seeds Pureed vegetables Vegetable juices Foods to avoid: All raw vegetables, including lettuce Cooked spinach or greens Fruits and Juices Foods allowed: Cooked fruits without skin or seeds Applesauce Pears, peaches Peeled apricots [place] cherries Ripe banana Ripe avocado Fruit juice without pulp Pureed fruits Foods to avoid: Dried fruit Fruit skin and seeds Pineapple juice Meat and Other Protein Foods Foods allowed: Tender beef, ang, veal, pork Poultry, fish Eggs prepared any way except fried Smooth nut butters (peanut, almond, sunflower seed, etc.) Foods to avoid: Pickled, spiced, smoked meat Shellfish Fried meats, fish, or eggs Tough meats or meats with gristle Sausage Nuts and seeds Beans, peas and lentils Cheese and Milk Products If you are lactose intolerant, avoid milk and foods made with milk. Foods allowed: Cottage cheese Cream cheese Any cheese that has no dried fruits and nuts Yogurt with active cultures Ice cream Note: Include all of these in milk allowance Foods to avoid: Cheese with dried fruits and nuts Yogurt or ice cream with berries, nuts or dried fruits Fats When possible, choose healthier oils like olive or canola oil. Foods allowed: Avocado Butter Cream Margarine Mild salad dressing Vegetable oils Foods to avoid: None Soups Foods allowed: Broth and strained soups made with allowed ingredients Foods to avoid: All other soups Beverages Most people need 8 to 10 cups of fluid each day. If you are lactose intolerant, avoid milk and foods made with milk. Foods allowed: Cow, soy, rice, and almond milk and milk products Choose low fat or fat free milks Coffee Decaffeinated coffee Tea [place] Carbonated beverages Fruit juice (except prune juice) Foods to avoid: All other beverages Miscellaneous Foods allowed: Salt used in moderation Mild spices Gravy Cream sauces Foods to avoid: Rich, highly spiced, or seasoned foods and sauces Fried foods Pickles Olives Relishes 1999 - April 13, 2020, [employer] [facility]. This handout is for informational purposes only. Talk with your doctor or healthcare team if you have any questions about your care. For more health information, call the [employer] for [employer] Information at [phone] or email: [email or web address]. * Discharge Instr - Notify* Susie Fuentes RN - 04/30/2024 3:09 PM EDT For Concerns During Weekend or Evening Hours: -If you have questions or concerns call and ask the multiple resaw operator to have the general surgery chief resident paged. Reminder: [employer] messaging goes unmonitored during evenings and weekends. Any concerns or questions during this time, please call using instructions above. Clinic Office Main Number: [phone] NOTIFY PHYSICIAN: SYMPTOMS WOUND INFECTION - Increase in pain in or around wound - Change in the amount of drainage - Change in the color of drainage - Change in the odor of drainage - Warmth in the tissues around the wound - Red streaks on the skin near the wound - Fever (temperature greater than 101 degrees F) - Incision separates or opens up UNRELIEVED PAIN + - Increased or unrelieved pain NAUSEA/VOMITING + - Nausea and vomiting that continues for more than 24 hours - Not able to keep medicine down - Not able to keep fluids down SYMPTOMS OF DVT + DVT = Deep Vein Thrombus, or Blood Clot -Any Tender, Swollen, or Reddened Areas from Your Groin to Your Heels -Numbness or Tingling In Groin or Calf -The Skin on Your Leg Looks Pale or Blue or It Feels Cold To Touch -Numbness or Tingling In Groin or Calf -Any Shortness of Breath -Chest Pain -Fever or Chills SYMPTOMS OF GI BLEED + Call your doctor or nurse if you have signs of slow blood loss such as: -Black tarry bowel movements -Cold hands and feet -Weakness -Dizzyness Call 911 if you suddenly have signs of blood loss such as: -Vomiting blood -Fast heart rate -Feeling faint or blacking out -Passing bright red blood from your rectum * Discharge Instr - Wound Care* Susie Fuentes RN - 04/30/2024 3:10 PM EDT Ostomy Care Perform colostomy care as instructed by enterostomal therapist. Midline Incision: Change packing strip to midline wound TWICE daily. Cover with clean ABD. CISNEROS CATHETER located in: bladder - Clean your Cisneros catheter twice a day with soap and water and as needed. - Please refer to your patient education handouts regarding your Cisneros Care. - Make sure that all drainage tubes lie flat underneath clothing and remain unkinked. -Bladder Spasms: It is common to have bladder spasms. If you feel like you need to urinate and the sensation goes away when you do, it is likely a bladder spasm. If the sensation does not go away andyou catheter is not draining, notify your physician. - If catheter falls out: If your catheter would fall out, please contact your physician's office and go to the [facility] Emergency Room. If you are outside of [place], please go to your local emergency Home Care for Your [place] Fluid Drain One or more tubes have been placed to drain fluid, so you can heal. A drain tube is put in through your skin into the space where fluid is building up. This decreases swelling, pressure and your chance of infection. The drain tube is held in place by stitches. The drain tube is attached to a fluid collection bag. The fluid drains into the bag by gravity, so you need to keep the bag below the level where the tube goes into your body. The drain can stay in place as long as it is needed and working well. The drain will be removed by your doctor when the amount of drainage drops, the color clears, and you have no signs of infection. General Care Keep your drain site clean and dry. If the dressing gets wet or comes loose, change it. You may shower 48 hours after the drain is put in place. Do not take a tub bath or go swimming while you have the drain. Water could get in around the tube and put you at risk of infection. For the first two weeks, cover the dressing and the skin around the drain with Press and Seal or plastic wrap before you shower. Tape the plastic wrap to help keep water from getting the dressing wet. You do not need to cover the dressing after two weeks. Call your doctor if your temperature is more than 101 degrees F or 38 degrees C. How to Empty Your Drain Bag Your drainage collection bag should be emptied in the morning and in the evening. If your bag is heavy with fluid, you may empty it more often. If you have more than one drain, you will need to emptyeach bag and record the drainage amount from each bag. Steps to follow: 1. Gather your supplies: Measuring cup Drainage record Pen or pencil to write amount on record 2. Wash your hands with soap and warm water for at least 15 seconds. Rinse with clean water and towel dry. 3. Loosen the belt, safety pins or clip that holds the drain bag to your clothing. 4. Hold the drain bag over the measuring cup to empty the drainage into the cup. 5. Open the valve on the bottom of the bag to let the fluid come out. Turn the blue valve to the left or counter clockwise. 6. Once the bag is empty, put the bag on a sink or table. Press down on the bag until it is flat. 7. When the bag is flat, close the valve on the bottom of the bag by turning it to the right or clockwise. 8. Pin the drain bag to your clothing lower than the place where the tube comes out of your body. If you have a cloth pouch, place the bag in it and attach it to your clothing. 9. Look on the side of the cup to measure the drainage. Check the drainage color and smell. If you notice a foul odor like rotten eggs, call your doctor or nurse. 10. Write the date and time, amount, color and smell of drainage in the drainage record. If you have more than one drain in place, curtis one A and the other B. Write the amount of drainage from each on the record. 11. Empty the drainage in the toilet. Rinse the measuring cup with clean water. Let it air dry. 12. Wash your hands again with soap and water. How to Change the Dressing You are to change your dressing around your tube or tubes every other day. You will also need to change the dressing if it gets wet, dirty or comes loose. The dressing helps to protect your drain site and keeps it clean. Steps to follow: 1. Prepare a work space by cleaning the surface with soap and water. Let it air dry. 2. Wash your hands with warm water and soap for at least 15 seconds. Rinse with clean water and towel dry. 3. Gather your supplies: Liquid antibacterial soap like Dial Two 2x2 gauze pads or two packages of split 4x4 gauze dressing Tape Plastic trash bag 4. Loosen the tape and remove the old dressing from around the drain. Be careful not to pull on thetube. 5. Look at the old dressing for any change or foul smell to the drainage. 6. Put the old dressing in a plastic bag and throw it away. 7. Wash your hands again with warm water and soap for at least 15 seconds. 8. Look for any redness or drainage where the tube comes out of your body. If you have these problems or skin irritation, call your doctor or nurse. 9. Take one small gauze pad that is moist with water and add a little antibacterial soap. Use the pad to clean around the tube. Begin cleaning where the tube comes out of your skin, called the exit site. Use a circular motion and clean the skin 3 to 4 inches away from the exit site. Do not clean back towards the tube. 10. Use a second small gauze pad that is moist with water only and clean around the tube again. 11. Let the area dry. If you have two drains, get 2 more small gauze pads and clean around the other tube the same way. 12. Tear off three pieces of tape about 5-6 inches long. 13. Remove one of the 4 x 4 split gauze square dressing from the package. Touch only the edges of the dressing. Put the gauze around the drainage tube(s). 14. Use the second split gauze dressing to cover the tube. 15. Tape the gauze in place. 16. You may loop the tube around so it is not kinked and tape it to the dressing. This will prevent it pulling. How to Flush Your Drain - You are to flush your drain with 10 ml of normal saline once daily. The flush helps to keep the drainage thinned, so it comes out more easily. Steps to Follow 1. Gather your supplies 10 ml sterile saline syringe(s) Alcohol pad 2. Wash your hands with warm water and soap for at least 15 seconds. Rinse with warm water. Towel dry your hands. 3. Use the alcohol pad to clean the flushing port on the tube at the connector. 4. Remove the cap from the end of the syringe. 5. Attach the syringe to the port. 6. Push the plunger of the syringe slowly to put the saline into the drainage tube. If you feel pressure and it is hard to push the saline in, stop. Call your doctor or nurse. 7. Remove the syringe from the port. 8. Throw away the empty syringe. 9. Wash your hands again and towel dry. Call your doctor or nurse if you have: A sudden increase or drop in the drainage of more than 30 ml. When there is less than 15ml in one day, you may need a check of the drain to see if the fluid collection is gone. If it is still there, you may need the drain to be changed. This is a simple outpatient procedure. A change in the smell of the drainage, especially if a rotten egg smell is noticed. Redness greater than the size of a dime or unusual drainage around the tube. No drainage or there is fluid leaking from around the tube. This may mean there is a clot in the tubing. Swelling around the tube. Fever of more than 101 degrees F or 38 degrees C. New or more pain where the tube exits the skin. The drain tube pulls out of your skin. Cover the site with gauze dressing and call your doctor or nurse. Place the tube in a plastic bag so your doctor or nurse can check it when they see you. Interventional Radiology Contact Information If you have questions or concerns about the drain, please call the Interventional Radiology outpatient office at between the hours of 8:00 am and 4:00 pm Friday through Friday. After hours and weekends, call the hospital multiple resaw operator at and ask for the Interventional student life vice president network operations specialist. * Discharge Instr - DME* Susie Fuentes RN - 04/30/2024 3:10 PM EDT Ostomy Supplies Resources If you have trouble getting your ostomy supplies or your health insurance does not cover the cost of your supplies, the following resources may be able to help you: [employer] https://www.SPHARES Search ostomy supplies [employer] https://www.coloplastcare.com/en-[place]/ostomy May provide a 3-month supply of limited ostomy supplies, one time each year. You will need to submit an application. [facility] [address] [place] [address] [facility] Ostomy [facility] [employer] [facility] - Ostomy Support Group [address] [phone] An ostomy support group meets on the Friday of each month at 7:00 pm. Donated ostomy supplies may be available. Email Vazquez James at [email or web address] for more information [employer] https://Numecentlus.ZenCard.com/articles/hvlewfy-kpofmxqdkg-twtlrle/ May provide a 3-month supply of limited ostomy supplies, one time each year. [place] , option 6 May provide a 3-month supply of ostomy supplies, 2 times a year. You will need to submit an application. [facility] Note* Mara Tang RN - 04/30/2024 1:14 PM EDT Report called to 12 Catherine KING. [place]07-12-2024 Emergency department Note* Mara Tang RN - 04/30/2024 1:14 PM EDT Report called to 12 Catherine RN. * Mara Tang RN - 04/30/2024 12:15 PM EDT Attempted to call report to 12 Catherine. RN unavailable to take report at this time. * Sue Martin RN - 04/30/2024 5:56 AM EDT Pt's abd wound with copious bloody/purulent drainage. Dressing and gown changed. Wound cleansed with NS. * Sue Martin RN - 04/29/2024 11:46 PM EDT Pt declines 0000 blood draw. * Jazmine Tovar RN - 04/29/2024 9:29 AM EDTSummary: Initial assessment - Catherine ZHU 04/29/24 0922 Referral Information Arrived From emergency department;home or self-care (From home to ER just arrived post op from [place] to the on Friday) Readmission Information Was patient readmitted within 30 Days? No Information Source Information Source patient ;spouse;review of medical record Information Source Name Opal Posada spouse Information Source Number # listed is for curt Edwards [phone] Outpatient Providers Outpatient Providers Updated In IHIS No Contact Information Supervisor Type Disk Quality Control/SW Added to Care Team No This Brickmason Contractor is Primary Supervisor Type Disk Quality Control/SW Yes Supervisor Type Disk Quality Control Name Carrie ZHU Supervisor Type Disk Quality Control's Phone Number [phone] Social Work Contact Name See daily coverage for ER SW Piledriver Carpenter's Phone Number See daily coverage for ER SW Living Environment Lives With child(brian), adult;spouse (Adult children ages 30-27-24 twins) Living Arrangement and Set Up house (2 story with walk in basement 3 -FILIPE) Primary Care Provided By spouse/significant other;self Support System Immediate family Able to Return to Prior Arrangements yes Functional Status Patient's Functional Status Prior To This Admission? Independent Are There Status Changes This Admission? No Changes Observed Since Admission? No Changes Observed Concerns With Patient Being Able To Care For Themselves At Discharge? Has Assistance (Friend, Family, Skilled Provider) Who Is Patient's Primary Contact For Discharge Planning, Education And Care For Discharge? Patient and spouse Opal Can Support Person Meet The Care Needs Of The Patient? Yes Employment/Financial Employed? Yes Employment Details Works at [employer] Employment/Financial Concerns no Source Of Income salary/wages Financial Concerns other (see comments) (Patient is linked with the [facility] Funding source) Insurance Medical Insurance Verified Yes Prescription Coverage Yes Pharmacy updated in [facility] Yes Initial Discharge Planning Home Care Services (CARE TRANSITION MANAGER) No Home Therapies (CARE TRANSITION MANAGER) None DME (CARE TRANSITION MANAGER) None Medical Supplies (CARE TRANSITION MANAGER) Ostomy Supplies;Other (comment) (They were given ostomy supplies when they left [place]) Patient Goal for Discharge Return home with assistance from family and friends Anticipated discharge disposition Home Anticipated Services at Discharge Outpatient wound/drain/ostomy care;Outpatient follow up Anticipated Changes Related to Illness none Current Discharge Risk chronically ill (Cancer diagnosed March 09 then had surgery in [place] 03-30) Transportation Available family or friend will provide Home Care Services (CARE TRANSITION MANAGER) Additional Home Care Services (CARE TRANSITION MANAGER) no Assessment/Concerns to be Addressed Concerns To Be Addressed adjustment to diagnosis/illness concerns;denies needs/concerns at this time PCRM Initial Assessment Met with Andrew Posada and spouse Opal (spouse present with the consent of patient) to complete the initial assessment. Explained role and function of PCRM in multidisciplinary team. Demographic information reviewed with patient/family and confirmed as correct. Reason for Admission: Per chart review: Diagnosed with colon cancer 03-09-24 and went to [place] for a colectomy with colostomy placement which was performed on 03/30/2024. [facility], noted progressive purulentdrainage from his rectal stump starting about a week and a half ago, then increasing redness, swelling and then eventual purulent drainage from the anterior abdomen, near his surgical incision site starting the last few days. He developed a fever yesterday. Elevated WBC Estimated length of stay: TBD- Unpredictable clinical course Advance directives Patient does not have Advanced Directives on File Declines opportunity to complete Lines/Drains/Tubes PIV-to be removed at discharge according to hospital policy Colostomy- have colostomy supplies that were provided in [place] Initial PCRM Discharge Planning Patient resides in [place] traveled to [place] for colectomy, had complications requiring colostomy. He traveled to [place] to seek expedited care and a friend had the same surgery and did well.Post colectomy for colon cancer in [place], presents to [facility] ER with intraabdominal infection, wound dehiscence and drainage. They just arrived in the [facility] from surgery on 04-24-24. He is uninsured but,connected to the [employer] [facility].Notified Rose in financial services for additionalresources. Mr Posada would like to receive care at [facility] with local Oncology in the [place] area. Final plan will be determined closer to discharge, pending therapy and medical team recommendations. Patient/family verbalized understanding and agreement with the plan of care. Patient/family have no questions at this time. PCR will continue to follow patient with multidisciplinary team for ongoing assessment of needs and for discharge planning. Medical team updated. BRIANNA Lucero, RN, [facility] Patient Care Center Mgr [facility] Emergency/Observation Department /[phone] Available via secure chat * Marcia Vasquez MD - 04/29/2024 4:24 AM EDT Note of medical necessity: At this time, risks of IV contrast outweighed by benefit of cross-sectional imaging. Our team is concerned about his intraabdominal infection and need further evaluation with IV/PO contrast. Lab Results Component Value Date SODIUM 140 04/29/2024 POTASSIUM 2.7 (LL) 04/29/2024 CHLORIDE 100 04/29/2024 CO2 34 (H) 04/29/2024 BUN 10 04/29/2024 CREATSERUM 0.56 (L) 04/29/2024 CrCl cannot be calculated (Unknown ideal weight.). Marcia Vasquez MD Resident 04/29/24 0424 * Marcia Vasquez MD - 04/29/2024 12:24 AM EDT DEPARTMENT OF EMERGENCY MEDICINE CHIEF COMPLAINT Post-Op Problem HPI Andrew Posada is a 58 y.o. male with history of colon cancer s/p resection w/ colostomy who presents as a transfer from OSH for abdominal abscess. The patient states that he was recently diagnosed with colon cancer and went to [place] for a colectomy with colostomy placement which was performed on 03/30/2024. [place], noted progressive purulent drainage from his rectal stump starting about a week and a half ago, then increasing redness, swelling and then eventual purulent drainage from the anterior abdomen, near his surgical incision site starting the last few days. He developed a fever yesterday, but no bloody bowel movement, nausea vomiting, dysuria, hematuria or other symptoms. At outside hospital, WBCwas 23.8 with hemoglobin of 9.5, creatinine 0.7. Potassium was 2.5 which was replaced. LFTs were mildly elevated. CT of the abdomen/pelvis was obtained showing a large intra-abdominal abscess from the subhepatic space of the pelvis. He was started on IV Zosyn and maintenance fluids and [facility]. Currently, the patient denies pain. States that he had roughly 1 cup of pus drain out from the abdomen prior to going to the emergency department. Denies known history of MRSA or other blood borne infections. Other than colorectal cancer has no other known medical history. Does not take blood thinners. Last meal was at noon 10. PAST MEDICAL HISTORY Past medical history was reviewed and is non-contributory to the presenting problem other than: Past Medical History: Diagnosis Date Colon cancer SURGICAL HISTORY Past surgical history was reviewed and is non-contributory to the presenting problem other than: Past Surgical History: Procedure Laterality Date COLECTOMY CURRENT MEDICATIONS No current facility-administered medications for this encounter. No current outpatient medications on file. ALLERGIES Allergies were reviewed and is non-contributory to the presenting problem other than: Not on File FAMILY HISTORY Family history was reviewed and is non-contributory to the presenting problem other than: History reviewed. No pertinent family history. SOCIAL HISTORY Social history was reviewed and is non-contributory to the presenting problem other than: Social History Socioeconomic History Marital status: Not on file Spouse name: Not on file Number of children: Not on file Years of education: Not on file Highest education level: Not on file Occupational History Not on file Tobacco Use Smoking status: Never Smokeless tobacco: Never Substance and Sexual Activity Alcohol use: Not Currently Drug use: Never Sexual activity: Not on file Other Topics Concern Not on file Social History Narrative Not on file Social Determinants of Health Financial Resource Strain: Not on file Food Insecurity: Not on file Transportation Needs: Not on file Physical Activity: Not on file Stress: Not on file Social Connections: Not on file Intimate Partner Violence: Not on file Housing Stability: Not on file PHYSICAL EXAM BP 153/75 Pulse 68 Temp 98.6 F (37 C) (Oral) Resp 18 Ht 1.727 m (5' 8) Smoking Status Never Physical Exam Vitals and nursing note reviewed. Constitutional: General: He is not in acute distress. Appearance: He is well-developed. He is not diaphoretic. Comments: Cachectic HENT: Head: Normocephalic and atraumatic. Eyes: Conjunctiva/sclera: Conjunctivae normal. Pupils: Pupils are equal, round, and reactive to light. Cardiovascular: Rate and Rhythm: Normal rate and regular rhythm. Heart sounds: Normal heart sounds. No murmur heard. No friction rub. No gallop. Pulmonary: Effort: Pulmonary effort is normal. No respiratory distress. Breath sounds: Normal breath sounds. No wheezing or rales. Abdominal: General: Bowel sounds are normal. There is no distension. Palpations: Abdomen is soft. There is mass. Tenderness: There is abdominal tenderness (mild anterior abdomen). There is no guarding or rebound. Comments: Erythematous, fluctuant mass to anterior abdomen near surgical site. No active drainage at this time Genitourinary: Penis: Normal. Testes: Normal. Comments: Mild purulent drainage from rectum Musculoskeletal: General: No deformity. Cervical back: Normal range of motion and neck supple. Skin: General: Skin is warm and dry. Capillary Refill: Capillary refill takes less than 2 seconds. Findings: No rash. Neurological: General: No focal deficit present. Mental Status: He is alert and oriented to person, place, and time. LABS AND IMAGING Results for orders placed or performed during the hospital encounter of 04/28/24 VENOUS BLOOD GAS PLUS LACTATE Result Value Ref Range pH, Venous 7.55 (HH) 7.32 - 7.43 pCO2, Venous 41 36 - 52 mm Hg pO2, Venous 65 mm Hg HCO3, Venous 36 (H) 22 - 29 mmol/L sO2 (O2 Saturation), Venous 95 (H) 70 - 80 % Base Excess 13.5 (H) -3.0 - 3.0 mmol/L Lactate, Whole Blood 0.9 0.5 - 1.6 mmol/L Specimen Type Venous No orders to display ED COURSE & MEDICAL DECISION MAKING Pertinent Labs & Imaging studies if performed reviewed. (See chart for details) Medication list reviewed. Assessment and Medical Decision Making Andrew Posada is a 58 y.o. male who presents to the ED for abdominal pain, redness, swelling and purulent drainage from colectomy surgical incision site. Differential diagnosis includes but is not limited to the following (at least one of which represents a threat to life or bodily function): Surgical wound dehiscence, intraperitoneal abscess, abdominal wall abscess, peritonitis, seroma, ischemic bowel Medical Decision Making This 58-year-old male with unknown past medical history other than colorectal cancer status post colectomy on 03/30 with creation of an ostomy and rectal stump presents to the emergency department from outside hospital for purulent drainage, redness and swelling to the anterior abdomen. At outside hospital he was noted to have an elevated white blood count and intra-abdominal access extending from the liver to the pelvis. He was started empirically on maintenance IV fluids and Zosyn and transferred to our facility for further evaluation. He was hemodynamically stable, protecting his airway and with a non peritonitic abdomen. He does have swelling, erythema and mild tenderness of the anterior abdomen via surgical site with no active drainage at this time. Images from outside hospital were pushed to [facility]IS from [facility]. Will consult general surgery for evaluation and management. Patient will require admission for postoperative infection and surgical wound dehiscence. Will continue empiric Zo syn, maintenance fluids and keep patient NPO Amount and/or Complexity of Data Reviewed Labs: ordered. Decision-making details documented in ED Course. ED Course ED Course as of 04/29/24 2305 Toma Apr 29, 2024 0023 Lactate, Whole Blood: 0.9 0105 White Blood Cell(!): 17.21 0105 POTASSIUM(!!): 2.7 60mEq K 2304 SO: hx colorectal cancer, went to [place] for colectomy. Now with worsening abd pain. Has multiple intraabdominal abscesses. Admitted to colorectal Impression: Intraabdominal/pelvic abscess Surgical wound dehiscence Hx CRC s/p colectomy and colostomy Hypokalemia Disposition: Admit Medications Medications - No data to display This note was dictated using YingYang Dictation Software. Attempts at proofreading have been made, however errors may still occasionally occur. Marcia Vasquez MD Resident 04/29/24 0046 * Renee Cox RN - 04/28/2024 11:58 PM EDT Transferred from [facility]. HX of Colon cancer, went to [place] for resection that took place on 03/30, hadcomplications, ended up with a colostomy that became infected now has purulent drainage. PT A&O. * Renetta Mason RN - 04/28/2024 11:58 PM EDT Bed: E017 Expected date: 04/28/24 Expected time: 12:00 AM Means of arrival: Hospital Transport Comments: [facility] Emergency department Note* Mara Tang RN - 04/30/2024 12:15 PM EDT Attempted to call report to Brittney Miller RN unavailable to take report at this time. [facility] of Present illness Narrative* Susie Fuentes RN - 04/30/2024 10:56 AM EDT I went and saw patient in the ED today. IR consulted and bed placement obtained- will go to the 12th floor. Confirmed details of initial assessment completed by AUDRA Cope on 04/29. Pt will go to IR today, he is NPO for this procedure. He does not have a way to get ostomy suppliesand his midline incision, originally with james, now removed, is draining. He will need ostomy and wound care supplies at discharge. I also will provide resources. Team updated to consult ET RN once on the floor to determine product needs. Per PCR note, financial assistance contacted, this PCRM emailed to follow up. Will need to determine final discharge needs once IR drain placed, antibiotic plan determined. Pt does not have coveragefor medications. DAVID Moreno Colorectal Surgery [phone] For evening and weekend discharge assistance: Pager for network operations specialist [facility] at [phone] Pager for network operations specialist [phone] * Cj Medina RPH - 04/29/2024 12:53 AM EDT Department of Pharmacy Outside Facility Transfer Note Patient: Andrew Posada Room/Bed: E017/E017 Patient has transferred from the Emergency Department at [facility] . I have reviewed records from the outside hospital available via scanned images in the media tab of the electronichealth record and confirmed the following antimicrobial, antiepileptic, and anticoagulant medications were received by the patient prior to arrival at [facility]: Antimicrobials: - Piperacillin/tazobactam 4.5 grams IV at ~1900 Other: - Potassium chloride 10 mEq IV at ~1730 and ~1900 Please feel free to contact me with any further questions. Cj Medina, Selene, LAURI, BCEMP, BCCCP, BCPS Specialty Practice Pharmacist - Emergency Medicine Pager: [phone] Work Portable Date/Time: 04/29/2024 12:53 AM documented [facility] Emergency department Note* Sue Martin RN - 04/30/2024 5:56 AM EDT Pt's abd wound with copious bloody/purulent drainage. Dressing and gown changed. Wound cleansed with NS. [facility] Emergency department Note* Sue Martin RN - 04/29/2024 11:46 PM EDT Pt declines 0000 blood draw. [facility] Consult note* Jon Tapia MD - 04/29/2024 10:27 AM EDTAssociated Order(s): IP CONSULT TO INTERVENTIONAL RADIOLOGY Vascular Interventional Radiology Consult Note Interventional Radiology Clinic [phone] - Interventional Radiology Scheduling [phone] [facility] first responder [id number] - [facility] first responder [id number] PATIENT: Mr. Andrew Posada Admission Date: 04/28/2024 Requesting Provider/Service: Mehran Gannon MD // EMERGENCY MEDICINE Reason for Consult: intra-abd drainage HPI/Imaging Findings: Andrew Posada is a 58 y.o. male with a past medical history of colonic adenocarcinoma s/p partial colectomy with rectosigmoid anastomosis c/b dehiscence requiring end colostomy who presents with pelvic abscess at the rectal stump communicating to right subhepatic abscess. Interventional Radiology is consulted for possible drain placement. Recent imaging and labs independently reviewed. Barriers to Consent: None Sedation Anticipated: Moderate Code Status: Full Code Past Medical History: Diagnosis Date Colon cancer Past Surgical History: Procedure Laterality Date COLECTOMY Social History Tobacco Use Smoking status: Never Smokeless tobacco: Never Substance Use Topics Alcohol use: Not Currently Drug use: Never History reviewed. No pertinent family history. Acetaminophen 975 mg Oral TID enoxaparin 40 mg Subcutaneous Q24H Potassium chloride 40 mEq Oral Once Ondansetron OR Ondansetron 4mg/2ml, oxyCODONE OR oxyCODONE, Phenol, Prochlorperazine ORProchlorperazine, Sodium chloride 0.9% Dextrose 5%/sodium chloride 0.45% w/potassium cl 75 mL/hr at 04/29/24 1014 piperacillin-tazobactam Stopped (04/29/24 0900) Sodium chloride 0.9% Blood pressure 136/65, pulse 53, temperature 98.6 F (37 C), temperature source Oral, resp. rate 18,height 1.727 m (5' 8), SpO2 97%. Pertinent Labs: Lab Results Component Value Date/Time HGB 9.1 (L) 04/29/2024 12:12 AM PLATELET 308 04/29/2024 05:28 AM INR 1.4 (H) 04/29/2024 12:12 AM SODIUM 138 04/29/2024 05:28 AM POTASSIUM 3.1 (L) 04/29/2024 05:28 AM GFR >90 04/29/2024 05:28 AM Laboratory Data: Lab Results Component Value Date WBC 17.21 (H) 04/29/2024 HGB 9.1 (L) 04/29/2024 HCT 27.5 (L) 04/29/2024 PLATELET 308 04/29/2024 MCV 89.3 04/29/2024 Lab Results Component Value Date SODIUM 138 04/29/2024 POTASSIUM 3.1 (L) 04/29/2024 CHLORIDE 100 04/29/2024 CO2 33 (H) 04/29/2024 BUN 9 04/29/2024 CREATSERUM 0.57 (L) 04/29/2024 GLUCOSE 97 04/29/2024 Allergies: Not on File ASSESSMENT / IMPRESSION Andrew Posada is a 58 y.o. male with pelvic abscess at rectal stump communicating to notable right subhepatic abscess as well as other abdominal collections in the context of colon cancer s/p sigmoidectomy and rectosigmoid anastomosis and presumed end colostomy. Interventional Radiology consulted for drain placement into pelvic/abdominal abscess. RECOMMENDATIONS / PLAN Plan for CT-guided DRAIN PLACEMENT into PELVIC/PERIRECTAL ABSCESS pending scheduling availability. Will schedule as imaging suite availability permits. Please make patient NPO at midnight prior to the procedure Coagulation goals: Hemoglobin > 8, Platelets > 50, INR < 1.5 Blood pressure goal: 160s/90 or lower Anticoagulation, if any not listed, will need to be held per guidelines Consult reviewed with IR Attending: Dr. RAJESH JONES Thank you for involving Interventional Radiology in the care of this patient. Important Notes Procedures are performed with either moderate sedation or anesthesia services. Both require the patient to be NPO (which includes tube feeds). Patients will need to lie flat comfortably for the duration of the procedure. Please be aware that patients requiring anesthesia services will require additional coordination which may increase the time from consult to procedure. Questions For questions regarding [facility] Inpatients please call [phone]. For questions regarding [facility] Inpatients please call [phone]. For questions regarding Biopsies, please call [phone]. [facility] Work Phone: 1(549) 597-488207-11-2024 Consult note* Jon Tapia MD - 04/29/2024 10:27 AM EDTAssociated Order(s): IP CONSULT TO INTERVENTIONAL RADIOLOGY Vascular Interventional Radiology Consult Note Interventional Radiology Clinic [phone] - Interventional Radiology Scheduling [phone] [facility] first responder [id number] - [facility] first responder [id number] PATIENT: Mr. Andrew Posada Admission Date: 04/28/2024 Requesting Provider/Service: Mehran Gannon MD // EMERGENCY MEDICINE Reason for Consult: intra-abd drainage HPI/Imaging Findings: Andrew Posada is a 58 y.o. male with a past medical history of colonic adenocarcinoma s/p partial colectomy with rectosigmoid anastomosis c/b dehiscence requiring end colostomy who presents with pelvic abscess at the rectal stump communicating to right subhepatic abscess. Interventional Radiology is consulted for possible drain placement. Recent imaging and labs independently reviewed. Barriers to Consent: None Sedation Anticipated: Moderate Code Status: Full Code Past Medical History: Diagnosis Date Colon cancer Past Surgical History: Procedure Laterality Date COLECTOMY Social History Tobacco Use Smoking status: Never Smokeless tobacco: Never Substance Use Topics Alcohol use: Not Currently Drug use: Never History reviewed. No pertinent family history. Acetaminophen 975 mg Oral TID enoxaparin 40 mg Subcutaneous Q24H Potassium chloride 40 mEq Oral Once Ondansetron OR Ondansetron 4mg/2ml, oxyCODONE OR oxyCODONE, Phenol, Prochlorperazine ORProchlorperazine, Sodium chloride 0.9% Dextrose 5%/sodium chloride 0.45% w/potassium cl 75 mL/hr at 04/29/24 1014 piperacillin-tazobactam Stopped (04/29/24 0900) Sodium chloride 0.9% Blood pressure 136/65, pulse 53, temperature 98.6 F (37 C), temperature source Oral, resp. rate 18,height 1.727 m (5' 8), SpO2 97%. Pertinent Labs: Lab Results Component Value Date/Time HGB 9.1 (L) 04/29/2024 12:12 AM PLATELET 308 04/29/2024 05:28 AM INR 1.4 (H) 04/29/2024 12:12 AM SODIUM 138 04/29/2024 05:28 AM POTASSIUM 3.1 (L) 04/29/2024 05:28 AM GFR >90 04/29/2024 05:28 AM Laboratory Data: Lab Results Component Value Date WBC 17.21 (H) 04/29/2024 HGB 9.1 (L) 04/29/2024 HCT 27.5 (L) 04/29/2024 PLATELET 308 04/29/2024 MCV 89.3 04/29/2024 Lab Results Component Value Date SODIUM 138 04/29/2024 POTASSIUM 3.1 (L) 04/29/2024 CHLORIDE 100 04/29/2024 CO2 33 (H) 04/29/2024 BUN 9 04/29/2024 CREATSERUM 0.57 (L) 04/29/2024 GLUCOSE 97 04/29/2024 Allergies: Not on File ASSESSMENT / IMPRESSION Andrew Posada is a 58 y.o. male with pelvic abscess at rectal stump communicating to notable right subhepatic abscess as well as other abdominal collections in the context of colon cancer s/p sigmoidectomy and rectosigmoid anastomosis and presumed end colostomy. Interventional Radiology consulted for drain placement into pelvic/abdominal abscess. RECOMMENDATIONS / PLAN Plan for CT-guided DRAIN PLACEMENT into PELVIC/PERIRECTAL ABSCESS pending scheduling availability. Will schedule as imaging suite availability permits. Please make patient NPO at midnight prior to the procedure Coagulation goals: Hemoglobin > 8, Platelets > 50, INR < 1.5 Blood pressure goal: 160s/90 or lower Anticoagulation, if any not listed, will need to be held per guidelines Consult reviewed with IR Attending: Dr. RAJESH JONES Thank you for involving Interventional Radiology in the care of this patient. Important Notes Procedures are performed with either moderate sedation or anesthesia services. Both require the patient to be NPO (which includes tube feeds). Patients will need to lie flat comfortably for the duration of the procedure. Please be aware that patients requiring anesthesia services will require additional coordination which may increase the time from consult to procedure. Questions For questions regarding [facility] Inpatients please call [phone]. For questions regarding [facility] Inpatients please call [phone]. For questions regarding Biopsies, please call [phone]. [facility] Note* Jazmine Tovar RN - 04/29/2024 9:29 AM EDTSummary: Initial assessment - Catherine [facility] 04/29/24 0922 Referral Information Arrived From emergency department;home or self-care (From home to ER just arrived post op from [place] to the on Friday) Readmission Information Was patient readmitted within 30 Days? No Information Source Information Source patient ;spouse;review of medical record Information Source Name Opal Posada spouse Information Source Number # listed is for curt Edwards [phone] Outpatient Providers Outpatient Providers Updated In IS No Contact Information Supervisor Type Disk Quality Control/SW Added to Care Team No This [employer] Contractor is Primary Supervisor Type Disk Quality Control/SW Yes Supervisor Type Disk Quality Control Name Jazmine- MIGUEL [facility] Supervisor Type Disk Quality Control's Phone Number [phone] Social Work Contact Name See daily coverage for ER SW [employer] Carpenter's Phone Number See daily coverage for ER SW Living Environment Lives With child(brian), adult;spouse (Adult children ages 30-27-24 twins) Living Arrangement and Set Up house (2 story with walk in basement 3 -FILIPE) Primary Care Provided By spouse/significant other;self Support System Immediate family Able to Return to Prior Arrangements yes Functional Status Patient's Functional Status Prior To This Admission? Independent Are There Status Changes This Admission? No Changes Observed Since Admission? No Changes Observed Concerns With Patient Being Able To Care For Themselves At Discharge? Has Assistance (Friend, Family, Skilled Provider) Who Is Patient's Primary Contact For Discharge Planning, Education And Care For Discharge? Patient and spouse Opal Can Support Person Meet The Care Needs Of The Patient? Yes Employment/Financial Employed? Yes Employment Details Works at [employer] Employment/Financial Concerns no Source Of Income salary/wages Financial Concerns other (see comments) (Patient is linked with the [facility] Funding source) Insurance Medical Insurance Verified Yes Prescription Coverage Yes Pharmacy updated in [facility] Yes Initial Discharge Planning Home Care Services (CARE TRANSITION MANAGER) No Home Therapies (CARE TRANSITION MANAGER) None DME (CARE TRANSITION MANAGER) None Medical Supplies (CARE TRANSITION MANAGER) Ostomy Supplies;Other (comment) (They were given ostomy supplies when they left [place]) Patient Goal for Discharge Return home with assistance from family and friends Anticipated discharge disposition Home Anticipated Services at Discharge Outpatient wound/drain/ostomy care;Outpatient follow up Anticipated Changes Related to Illness none Current Discharge Risk chronically ill (Cancer diagnosed March 09 then had surgery in [place] 03-30) Transportation Available family or friend will provide Home Care Services (CARE TRANSITION MANAGER) Additional Home Care Services (CARE TRANSITION MANAGER) no Assessment/Concerns to be Addressed Concerns To Be Addressed adjustment to diagnosis/illness concerns;denies needs/concerns at this time PCRM Initial Assessment Met with Andrew Posada and spouse Opal (spouse present with the consent of patient) to complete the initial assessment. Explained role and function of PCRM in multidisciplinary team. Demographic information reviewed with patient/family and confirmed as correct. Reason for Admission: Per chart review: Diagnosed with colon cancer 03-09-24 and went to [place] for a colectomy with colostomy placement which was performed on 03/30/2024. [facility], noted progressive purulentdrainage from his rectal stump starting about a week and a half ago, then increasing redness, swelling and then eventual purulent drainage from the anterior abdomen, near his surgical incision site starting the last few days. He developed a fever yesterday. Elevated WBC Estimated length of stay: TBD- Unpredictable clinical course Advance directives Patient does not have Advanced Directives on File Declines opportunity to complete Lines/Drains/Tubes PIV-to be removed at discharge according to hospital policy Colostomy- have colostomy supplies that were provided in [place] Initial PCR Discharge Planning Patient resides in [place] traveled to [place] for colectomy, had complications requiring colostomy. He traveled to [place] to seek expedited care and a friend had the same surgery and did well.Post colectomy for colon cancer in [place], presents to [facility] ER with intraabdominal infection, wound dehiscence and drainage. [place] the [place]24. He is uninsured but,connected to the [employer] [facility].Notified Rose in financial services for additionalresources. Mr Posada would like to receive care at [facility] with local Oncology in the [facility]. Final plan will be determined closer to discharge, pending therapy and medical team recommendations. Patient/family verbalized understanding and agreement with the plan of care. Patient/family have no questions at this time. PCRM will continue to follow patient with multidisciplinary team for ongoing assessment of needs and for discharge planning. Medical team updated. BRIANNA Lucero, RN, [facility] Patient Care Center Mgr [facility] Emergency/Observation Department /[phone] Available via secure chat [place]07-11-2024 Emergency department Note* Marcia Vasquez MD - 04/29/2024 4:24 AM EDT Note of medical necessity: At this time, risks of IV contrast outweighed by benefit of cross-sectional imaging. Our team is concerned about his intraabdominal infection and need further evaluation with IV/PO contrast. Lab Results Component Value Date SODIUM 140 04/29/2024 POTASSIUM 2.7 (LL) 04/29/2024 CHLORIDE 100 04/29/2024 CO2 34 (H) 04/29/2024 BUN 10 04/29/2024 CREATSERUM 0.56 (L) 04/29/2024 CrCl cannot be calculated (Unknown ideal weight.). Marcia Vasquez MD Resident 04/29/24423 [place] Work Phone: 1(215) 752-708707-11-2024 Physician Emergency department Note* Marcia Vasquez MD - 04/29/2024 12:24 AM EDT DEPARTMENT OF EMERGENCY MEDICINE CHIEF COMPLAINT Post-Op Problem HPI Andrew Posada is a 58 y.o. male with history of colon cancer s/p resection w/ colostomy who presents as a transfer from OSH for abdominal abscess. The patient states that he was recently diagnosed with colon cancer and went to [place] for a colectomy with colostomy placement which was performed on 03/30/2024. [place], noted progressive purulent drainage from his rectal stump starting about a week and a half ago, then increasing redness, swelling and then eventual purulent drainage from the anterior abdomen, near his surgical incision site starting the last few days. He developed a fever yesterday, but no bloody bowel movement, nausea vomiting, dysuria, hematuria or other symptoms. At outside hospital, WBCwas 23.8 with hemoglobin of 9.5, creatinine 0.7. Potassium was 2.5 which was replaced. LFTs were mildly elevated. CT of the abdomen/pelvis was obtained showing a large intra-abdominal abscess from the subhepatic space of the pelvis. He was started on IV Zosyn and maintenance fluids and [facility]. Currently, the patient denies pain. States that he had roughly 1 cup of pus drain out from the abdomen prior to going to the emergency department. Denies known history of MRSA or other blood borne infections. Other than colorectal cancer has no other known medical history. Does not take blood thinners. Last meal was at noon 04/28. PAST MEDICAL HISTORY Past medical history was reviewed and is non-contributory to the presenting problem other than: Past Medical History: Diagnosis Date Colon cancer SURGICAL HISTORY Past surgical history was reviewed and is non-contributory to the presenting problem other than: Past Surgical History: Procedure Laterality Date COLECTOMY CURRENT MEDICATIONS No current facility-administered medications for this encounter. No current outpatient medications on file. ALLERGIES Allergies were reviewed and is non-contributory to the presenting problem other than: Not on File FAMILY HISTORY Family history was reviewed and is non-contributory to the presenting problem other than: History reviewed. No pertinent family history. SOCIAL HISTORY Social history was reviewed and is non-contributory to the presenting problem other than: Social History Socioeconomic History Marital status: Not on file Spouse name: Not on file Number of children: Not on file Years of education: Not on file Highest education level: Not on file Occupational History Not on file Tobacco Use Smoking status: Never Smokeless tobacco: Never Substance and Sexual Activity Alcohol use: Not Currently Drug use: Never Sexual activity: Not on file Other Topics Concern Not on file Social History Narrative Not on file Social Determinants of Health Financial Resource Strain: Not on file Food Insecurity: Not on file Transportation Needs: Not on file Physical Activity: Not on file Stress: Not on file Social Connections: Not on file Intimate Partner Violence: Not on file Housing Stability: Not on file PHYSICAL EXAM BP 153/75 Pulse 68 Temp 98.6 F (37 C) (Oral) Resp 18 Ht 1.727 m (5' 8) Smoking Status Never Physical Exam Vitals and nursing note reviewed. Constitutional: General: He is not in acute distress. Appearance: He is well-developed. He is not diaphoretic. Comments: Cachectic HENT: Head: Normocephalic and atraumatic. Eyes: Conjunctiva/sclera: Conjunctivae normal. Pupils: Pupils are equal, round, and reactive to light. Cardiovascular: Rate and Rhythm: Normal rate and regular rhythm. Heart sounds: Normal heart sounds. No murmur heard. No friction rub. No gallop. Pulmonary: Effort: Pulmonary effort is normal. No respiratory distress. Breath sounds: Normal breath sounds. No wheezing or rales. Abdominal: General: Bowel sounds are normal. There is no distension. Palpations: Abdomen is soft. There is mass. Tenderness: There is abdominal tenderness (mild anterior abdomen). There is no guarding or rebound. Comments: Erythematous, fluctuant mass to anterior abdomen near surgical site. No active drainage at this time Genitourinary: Penis: Normal. Testes: Normal. Comments: Mild purulent drainage from rectum Musculoskeletal: General: No deformity. Cervical back: Normal range of motion and neck supple. Skin: General: Skin is warm and dry. Capillary Refill: Capillary refill takes less than 2 seconds. Findings: No rash. Neurological: General: No focal deficit present. Mental Status: He is alert and oriented to person, place, and time. LABS AND IMAGING Results for orders placed or performed during the hospital encounter of 04/28/24 VENOUS BLOOD GAS PLUS LACTATE Result Value Ref Range pH, Venous 7.55 (HH) 7.32 - 7.43 pCO2, Venous 41 36 - 52 mm Hg pO2, Venous 65 mm Hg HCO3, Venous 36 (H) 22 - 29 mmol/L sO2 (O2 Saturation), Venous 95 (H) 70 - 80 % Base Excess 13.5 (H) -3.0 - 3.0 mmol/L Lactate, Whole Blood 0.9 0.5 - 1.6 mmol/L Specimen Type Venous No orders to display ED COURSE & MEDICAL DECISION MAKING Pertinent Labs & Imaging studies if performed reviewed. (See chart for details) Medication list reviewed. Assessment and Medical Decision Making Andrew Posada is a 58 y.o. male who presents to the ED for abdominal pain, redness, swelling and purulent drainage from colectomy surgical incision site. Differential diagnosis includes but is not limited to the following (at least one of which represents a threat to life or bodily function): Surgical wound dehiscence, intraperitoneal abscess, abdominal wall abscess, peritonitis, seroma, ischemic bowel Medical Decision Making This 58-year-old male with unknown past medical history other than colorectal cancer status post colectomy on 03/30 with creation of an ostomy and rectal stump presents to the emergency department from outside hospital for purulent drainage, redness and swelling to the anterior abdomen. At outside hospital he was noted to have an elevated white blood count and intra-abdominal access extending from the liver to the pelvis. He was started empirically on maintenance IV fluids and Zosyn and transferred to our facility for further evaluation. He was hemodynamically stable, protecting his airway and with a non peritonitic abdomen. He does have swelling, erythema and mild tenderness of the anterior abdomen via surgical site with no active drainage at this time. Images from outside hospital were pushed to [facility] from [facility]. Will consult general surgery for evaluation and management. Patient will require admission for postoperative infection and surgical wound dehiscence. Will continue empiric Zo syn, maintenance fluids and keep patient NPO Amount and/or Complexity of Data Reviewed Labs: ordered. Decision-making details documented in ED Course. ED Course ED Course as of 04/29/24 2305 Toma Apr 29, 2024 0023 Lactate, Whole Blood: 0.9 0105 White Blood Cell(!): 17.21 0105 POTASSIUM(!!): 2.7 60mEq K 2304 SO: hx colorectal cancer, went to [place] for colectomy. Now with worsening abd pain. Has multiple intraabdominal abscesses. Admitted to colorectal Impression: Intraabdominal/pelvic abscess Surgical wound dehiscence Hx CRC s/p colectomy and colostomy Hypokalemia Disposition: Admit Medications Medications - No data to display This note was dictated using [employer] Dictation Software. Attempts at proofreading have been made, however errors may still occasionally occur. Marcia Vasquez MD Resident 04/29/24 0046 [place]07-10-2024 Emergency department Note* Renee Cox RN - 04/28/2024 11:58 PM EDT Transferred from [facility]. HX of Colon cancer, went to [place] for resection that took place on 03/30, hadcomplications, ended up with a colostomy that became infected now has purulent drainage. PT A&O. [place]07-10-2024 Emergency department Note* Renetta Mason RN - 04/28/2024 11:58 PM EDT Bed: E017 Expected date: 04/28/24 Expected time: 12:00 AM Means of arrival: Hospital Transport Comments: [place] Author Handy [facility] Note Date/Time March 01, 2025 12:50 pm [facility] Medical Records Department [address] [place] [address] Discharge Summary 03/01/25 1245 MR#: [id number] Acct: [id number] Name: TIMANDREW A Rep #:[id number] : 1965 59 From: Handy Harris PCP: WENDY Gonzalez Status:A DM IN [place]: [facility] [id number] Providers Date of Admission: 02/24/25 Date of Discharge: 03/01/25 Primary Care Physician: WENDY Gonzalez Consultations 02/24/25 12:29 Consult: General Surgery Routine Consulting Provider: Kunal Chandler Reason for Consult: SMALL BOWEL OBSTRUCTION EMERGENT Consult: No MD Notified: Yes Date Notified: 02/24/25 Time Notified: 11:33 Method of Notification: Verbal 02/25/25 07:00 Consult: Onc/Wound/head up operator Routine Comment: Reason for Consult:: colostomy, nephrotube dressings Reason For Visit: SMALL BOWEL OBSTRUCTION, S/P APR COLOSTOMY Diagnosis Discharge Diagnosis (1) SBO (small bowel obstruction): Status: Acute Code(s): K56.609 - Unspecified intestinal obstruction, unspecified as to partial versus complete obstruction Plan This 59-year-old gentleman is being admitted for small bowel obstruction. Patient has history of rectal cancer status post APR. He had chemotherapy and radiation 4 months ago and then last chemo about 10 days ago. 1. Small bowel obstruction with history of colorectal cancer status post APR and colostomy: Patient is being admitted Medr floor. IV fluid Ringer lactateat 100 mL/h. NG suction at low intermittent wall suction. Monitor bowel emptying. Surgery Dr. Chandler is consulted. CT abdomen images shows multiple distended small bowel loops with largest measuring 3.7 cm. 02/25: Small bowel series shows contrast in the stomach with collection in duodenum and proximal jejunum at 1 hour. Multiple dilated small bowel loops predominantly in the left side. As per surgeon, there is less chance of conservative management therefore surgery was recommended and patient agreed. Plan for surgery today. Mild hypokalemia, electrolyte replacement ordered. 02/26: Patient had small bowel obstruction secondary to adhesions/radiation to the pelvis. Diagnostic laparoscopy converted to exploratory laparotomy with extensive lysis of adhesions and diverting loop jejunostomy on 02/25/2025. Jejunostomy is working good and had bags emptied twice with bilious content. 02/27: Discussed with the nursing staff. IV fluid replacement, Ringer lactate ordered; to be more than jejunostomy output and urine output. Urine output has increased due to IV fluid yesterday. Patient also on full liquid diet. Decreased lung sounds in lung bases therefore incentive spirometry reinforced 02/28: 950 mL stool output since midnight. 675 mL urine output. Diet advanced to soft diet. Electrolytes within normal range. 03/01: His ostomy output was better only 650 mL. Patient tolerated soft diet. Is being discharged. Low normal potassium therefore prescription given for potassium chloride. Follow-up with surgeon Dr. Chandler in the office 2. CA rectum: He follows Dr. Ho. Had C8 FOLFOX on 02/14/2025. Prior to that he finished chemotherapy on 08/13/2024 and radiation on 08/17/2024. 3. Bilateral hydronephrosis status post bilateral nephrostomy in September 2024 in [facility]: Urine in bilateral nephrostomy bag is dark-colored. IV fluid hydration. CT scan does not show hydronephrosis 02/28: Urine output is good. BUN/creatinine 1.1/50.4. 03/01: Patient had total of 125 mL urine output yesterday. Adequate urine output. Had INOCENCIA during hospital course due due to high output ileostomy fistula, creatinine went up from 1.5-1.67 and then normal 1.03 today. INOCENCIA mainly prerenal resolved. 4. History of DVT in the past: Unclear about it location but patient said it was in right thigh. Unclear about the reason why did not complete full course of anticoagulation but he said he had Lovenox and aspirin during hospitalizationin [facility]. 5. Irregular rhythm: Twelve-lead EKG shows sinus rhythm with PAC, LAD at 85 bpm.Denies history of A-fib. 6. Chronic anemia: Slight drop in hemoglobin from baseline 12.5 g%. 11.5/33.5%. Mild chronic thrombocytopenia platelet count around 110,000. 7. Mild INOCENCIA: Baseline creatinine around 1.33 in January 2025. Creatinine went from admission 1.39-1.67 therefore qualifies for INOCENCIA. IV fluid ordered, normal saline plus KCl ordered 150 mL/h to compensate jejunostomy loss, high output fistula. NG tube 650 mL. Jejunostomy 2560 mL. DVT prophylaxis, high risk: Lovenox 40 mg subcu daily. Lovenox on hold due to anemia 02/28: Resume Lovenox from tomorrow a.m. Living will/advanced directive/end of life care: Patient does not have living will or advanced directive but in the process of making living well. After discussion of benefits/risks procedures involved with full code, DNR CC arrest and DNR CC, the patient and his opted for full code Patient does want artificial life support including intubation, tube feed, ventilator and/chest compression, central venous catheter, vasopressor and DC shock if needed Laboratory Results 02/28/25 06:20: WBC 3.0 L, RBC 2.79 L, Hgb 9.5 L, Hct 28.4 L, MCV 101.8 H, MCH 34.1 H, MCHC 33.5, RDW Std Deviation 58.0 H, RDW Coeff of Rosalee 15.4 H, Plt Count 77 L, MPV 9.5, Immature Gran % (Auto) 0.700, Neut % (Auto) 59.6, Lymph % (Auto) 15.3 L, Rawlins % (Auto) 19.7 H, Eos % (Auto) 4.4, Baso % (Auto) 0.3, Absolute Neuts (auto) 1.8 L, Absolute Lymphs (auto) 0.45 L, Nucleated RBC % 0, Differential Comment SCANNED, Platelet Estimate MOD DEC, RBC Morphology NORM C+C, Sodium 138, Potassium 3.8, Chloride 105, Carbon Dioxide 26.0, Anion Gap 8, BUN 17, Creatinine 1.10, Estim Creat Clear Calc 50.42, Est GFR (MDRD) Non-Af 77,BUN/Creatinine Ratio 15.4, Glucose 96, Calcium 8.7 02/28/25 11:19: POC Glucose 119 H Clinical Impression(s) from Imaging Studies Abdomen CT 02/24/25 07:20 IMPRESSION: 1. Multiple distended small bowel loops with differential air-fluid levels measuring up to 3.7 cm, concerning for small bowel obstruction with possible transition in the right lower abdominal quadrant. 2. Bladder wall thickening which may be due to the decompressed state of the bladder or due to cystitis. 3. Small esophageal hiatal hernia. 4. Inguinal hernias, bilaterally. [facility] 02/24/25 11:25 IMPRESSION: Tip of the nasogastric tube in the fundus of the stomach. Bilateral nephrostomy catheters. Bowel-gas pattern suggest adynamic/reflex ileus. Reading Location: [facility] Medications at Discharge Home Medications ondansetron 8 mg disintegrating tablet 8 mg PO Q8H PRN nausea and vomiting #30 tabs 11/22/24 pantoprazole 40 mg tablet,delayed release 40 mg PO DAILY 30 days #30 tabs 03/01/25 potassium chloride 20 mEq tablet,extended release 20 meq PO DAILY 2 weeks #14 tabs 03/01/25 Physical Exam Narrative Seen and examined Patient tolerating soft diet. He is ready to be discharged Has a right-sided diverting jejunostomy/ileostomy. Discussed with nursing staff, send ostomy/ileostomy output about 500 mL Physical exam General: Alert, Oriented x3, Cooperative HEENT: Atraumatic, PERRLA, EOMI, Normocephalic. Oral: Oral mucosa dry. No Gingival or Mucosal Lesions/ Ulcerations Neck: Supple, No JVD, Negative Carotid Bruits Chest wall/Lungs: Air entry diminished in bilateral lung bases. No crepitation/rhonchi Cardiovascular: Irregular rhythm normal S1,S2, systolic murmur Abdomen: Bowel Sounds sluggish, soft, Non Tender, colostomy. No significant fecal content in colostomy bag. Jejunostomy has bilious drainage, high output fistula : Bilateral nephrostomy tube,, urine output is increased. Clear in color no renal angle tenderness. No suprapubic tenderness. Extremities: No edema, Capillary Refill Less than 3 Seconds Skin: No rashes, No breakdown Musculoskeletal: No Tenderness to Palpation of Joints or Extremities Neurological: Cranial nerves II-XII grossly intact, DTR 2+/4. No acute focal neurological deficit. Psych/Mental Status: Flat affect Medical Records Data Medical Nutrition Assessment Dietitian: Malnutrition Criteria Met Start: 02/25/25 11:58 Freq: Status: Active Protocol: Document 02/28/25 11:51 GI (Rec: 02/28/25 11:51 GI 10.10.25.7) Nutrition Malnutrition Evidence of Yes Malnutrition Exists Malnutrition (severe Chronic ): Evidenced By Suboptimal Energy Intake (Severe),Weight Loss (Severe), Physical Changes (Severe) Clinical Problem Chronic Disease or Condition Related Malnutrition Etiology related to GI dysfunction and cancer causing inadequate energy intake Signs/Symptoms as evidenced by 23% unintended wt loss and 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 5 Status Active Problem Recommendation Dietitian Continue Transitional with goal of regular diet d/t Recommendations/ signs and symptoms of malnutrition Changes Order ensure plus high protein tid w/ meals for increased nutrition if consumed - prefers chocolate flavor Weight / BMI Weight Weight: 108 lb 7.479 oz Body Mass Index (BMI) 16.4 ABG / Lab / Microbiology Data 03/01/25 04:25 03/01/25 04:25 Laboratory: Laboratory Results - last 24 hr 02/28/25 17:42: POC Glucose 94 03/01/25 04:25: WBC 2.5 L, RBC 2.78 L, Hgb 9.5 L, Hct 27.7 L, MCV 99.6 H, MCH 34.2 H, MCHC 34.3, RDW Std Deviation 54.9 H, RDW Coeff of Rosalee 15.0 H, Plt Count 86 L, MPV 9.7, Immature Gran % (Auto) 1.200 H, Neut % (Auto) 46.6 L, Lymph % (Auto) 22.3, Rawlins % (Auto) 25.5 H, Eos % (Auto) 4.0, Baso % (Auto) 0.4, AbsoluteNeuts (auto) 1.2 L, Absolute Lymphs (auto) 0.55 L, Nucleated RBC % 0, Differential Comment SCANNED, Platelet Estimate MOD DEC, RBC Morphology NORM C+C, Sodium 135, Potassium 3.5, Chloride 101, Carbon Dioxide 26.7, Anion Gap 7, BUN 13, Creatinine 1.03, Estim Creat Clear Calc 53.85, Est GFR (MDRD) Non-Af 84,BUN/Creatinine Ratio 12.6, Glucose 97, Calcium 8.5 D/C Instructions Discharge Diet: - (Transitional soft, food diet) Call your doctor if your incision/area has: Continuous Slow Oozing, Sudden Increased Bleeding, Increased Pain/ Swelling, Increased Redness, Foul Smelling Discharge and Swelling at the incision site Call your doctor if you observe: Fever of 101 or Higher Suture Line Care: Avoid Pulling/Pushing and Avoid Pinching/Bending Cleanse incision/area with: Soap & Water DC O2, CPAP, BIPAP Needs Home O2 Discharge instructions: No Please Follow Up With: Kunal Chandler MD When: Your appointment is scheduled for 03/10 at 9:[address] Chandler. Please arrive 15 minutes early. Please contact our office at [phone], option #4 for a nurse if you have any questions following discharge. Meaningful Use Info Meaningful Use Meaningful Use Diagnoses (Choose all that apply): None applicable Ischemic Stroke Statin Dosing Therapy Reference: STATIN DOSE THERAPY REFERENCE: * Patients > 75 years receive moderate or high dose statin therapy. * Patients 75 years or YOUNGER should receive HIGH intensity statin dose unless contraindicated. You will be required to document reason for non-treatment if statin daily dose does not meet guidelines. HIGH DOSE STATIN THERAPY DAILY Atorvastatin > than or = to 40 mg Rosuvastatin > than or = to 20 mg Amlodipine + Atorvastatin > than or = to 2.5/40 mg Ezetimibe + Simvastatin 10/80 mg Simvastatin 80mg Discharge Plan Admission Admit Date/Time: 02/24/25 11:29 Primary Reason for Your Visit: Small bowel obstruction status post jejunostomy/ileostomy. Has BL nephrost Attending Provider: Handy Royal Primary Care Provider: Elly Bellamy NP Consulting Providers: Kunal Chandler Instructions Additional Instructions / Restrictions: Your follow-up appointment is scheduled for 03/10 at 9:[address] Chandler. Please arrive 15 minutes early. Please contact our office at [phone], option #4 for a nurse if you have any questions following discharge. Bring ostomy supplies with you to your follow-up. Below is an example of foods to continue eating at discharge. You may increase diet to regular food after 3 days from discharge date. If you have any questions, please contact our office. Transitional Diet Beverages: ? Soda (cola, diet cola, lemon-craig, diet lemon-craig, garrett duane, diet garrett duane) ? Tea (hot or iced) ? Milk (low-fat, 2%, lactose free) ? Coffee ? Juice (without pulp) ? Oral Nutrition supplement Breakfast: ? Hot cereal (oatmeal or cream of wheat) ? Scrambled eggs ? Blueberry muffin ? Cold cereal (no whole grain cereals) ? [place] (white) Lunch or Dinner: Deli Items: Hot Items: [place] sandwich Roast [place] Tuna salad (sandwich or alone) Macaroni & Cheese Egg salad (sandwich or alone) Mashed potatoes & gravy Chicken salad (sandwich or alone) Carrots Green beans Cold Sides: Soups: Cottage cheese Vegetable soup Yogurt Chicken noodle Hardboiled egg Dessert: ? Gelatin, pudding Discharge Orders/Prescriptions Prescriptions: New pantoprazole 40 mg Tablet,Delayed Release (Dr/Ec) 40 mg PO DAILY 30 Days Qty: 30 0RF potassium chloride 20 mEq tablet extended release 20 meq PO DAILY 14 Days Qty: 14 0RF Continued ondansetron 8 mg tablet,disintegrating 8 mg PO Q8H PRN (Reason: nausea and vomiting) Qty: 30 2RF Discontinued senna 8.6 mg capsule 8.6 mg PO QHS PRN (Reason: constipation) Referrals / Follow Up: Kunal Chandler MD [Med Staff - Active Staff] - 03/10/25 9:45 am Care Physician,No Primary [Non-Staff] - Elly Bellamy NP, RN ORTHOPEDIC-C [Primary Care Provider] - Disposition Disposition (needs filled in before D/C Order can be placed): Home, Self Care Charges/Coding Visit Charges Inpatient E&M: 08450 Disch Hosp >30min 03/01/25 1250 <Electronically signed by Handy Royal MD> Cosigner Signature (if applicable): CC: RN ORTHOPEDICZach Bellamy; Dr. Handy Royal MD~ Signed [facility] Work Phone: Evaluation note* Diagnosis Colon cancer- Primary Malignant neoplasm of colon, unspecified site Abscess Cellulitis and abscess of unspecified site Postprocedural urinary retention Infection Unspecified infectious and parasitic diseases Abscess Cellulitis and abscess of unspecified site [facility] Urinary retention- Primary Retention of urine, unspecified [facility] Diagnosis Abscess Cellulitis and abscess of unspecified site [facility] Diagnosis Malignant neoplasm of rectum- Primary Malignant neoplasm of rectum [facility] Diagnosis Malignant neoplasm of rectum [facility] Diagnosis Malignant neoplasm of rectum- Primary [facility] Diagnosis Malignant neoplasm of rectum [facility] Diagnosis Dehydration- Primary Hydronephrosis, unspecified hydronephrosis type Malignant neoplasm of colon, unspecified part of colon Bradycardia Other specified cardiac dysrhythmias Hydronephrosis, unspecified hydronephrosis type [facility] Diagnosis Mixed stress and urge urinary incontinence- Primary Mixed incontinence urge and stress (male)(female) Ureteral stricture Stricture or kinking of ureter [facility] Diagnosis Mixed stress and urge urinary incontinence- Primary Mixed incontinence urge and stress (male)(female) Ureteral stricture Stricture or kinking of ureter Malignant neoplasm of rectum- Primary [facility] Diagnosis Mixed stress and urge urinary incontinence- Primary Mixed incontinence urge and stress (male)(female) Ureteral stricture Stricture or kinking of ureter Ureteral stricture- Primary Stricture or kinking of ureter [facility] Unlisted Procedure Code (Routine) - Pending Review Specialty Diagnoses / Procedures Referred By Contac t Referred To Contact Procedures PLATELET MONITORING PER PROTOCOL Hilary Lewis MD [address] [place] [address] Referral ID Status Reason Start Date Expiration Date V isits Requested Visits Authorized [id number] Pending Review 04/29/2024 05/24/2025 1 1 * Unlisted Procedure Code (Routine) - Pending Review Specialty Diagnoses / Procedures Referred By Contac t Referred To Contact Procedures DVT/VTE RISK ASSESSMENT Hilary Lewis MD [address] [employer] [address] [place] [address] Referral ID Status Reason Start Date Expiration Date V isits Requested Visits Authorized [id number] Pending Review 04/29/2024 05/24/2025 1 1 [facility] Consultation (Routine) - New Request Specialty Diagnoses / Procedures Referred By Contac t Referred To Contact Diagnoses Bradycardia Hilary Lewis MD [address] [facility] [address] [place] [address] Referral ID Status Reason Start Date Expiration Date V isits Requested Visits Authorized [id number] New Request 10/18/2024 11/12/2025 1 1 Scheduling Instructions Please schedule this patient in the Department of Cardiology for 30d cardiac event monitor. * Radiology (Routine) - New Request Specialty Diagnoses / Procedures Referred By Adam combs Referred To Contact Diagnoses Hydronephrosis, unspecified hydronephrosis type Malignant neoplasm of colon, unspecified part of colon Procedures EVENT MONITOR, CARDIAC EVENT MONITOR, CARDIAC Hilary Lewis MD [address] [place] [address] Referral ID Status Reason Start Date Expiration Date V isits Requested Visits Authorized [id number] New Request 10/18/2024 11/12/2025 1 1 * Radiology (Emergency) - New Request Specialty Diagnoses / Procedures Referred By Adam t Referred To Contact Procedures ECG Hilary Lewis MD [address] [address] Referral ID Status Reason Start Date Expiration Date V isits Requested Visits Authorized [id number] New Request 10/15/2024 11/09/2025 1 1 * Radiology (Routine) - New Request Specialty Diagnoses / Procedures Referred By Contac t Referred To Contact Diagnoses Hydronephrosis, unspecified hydronephrosis type Malignant neoplasm of colon, unspecified part of colon Procedures CASE REQUEST DEPARTMENT USE ONLY INTERVENTIONAL RADIOLOGY Flory Gregory, VARIETY PERFORMER-GARMENT TAG STRINGER [address] [place] [address] Referral ID Status Reason Start Date Expiration Date V isits Requested Visits Authorized [id number] New Request 10/14/2024 11/08/2025 1 1 * (Routine) Specialty Diagnoses / Procedures Referred By Adam t Referred To Contact CATHERINE [address] [place] [address] Referral ID Status Reason Start Date Expiration Date Visits Re quested Visits Authorized * Consultation (Routine) - New Request Specialty Diagnoses / Procedures Referred By Adam combs Referred To Contact Urology Diagnoses Hydronephrosis, unspecified hydronephrosis type Carmelina Sanders DO [address] [address] Referral ID Status Reason Start Date Expiration Date V isits Requested Visits Authorized [id number] New Request 10/12/2024 11/06/2025 1 1 [facility] for visit Narrative* Auth/Cert Specialty Diagnoses / Procedures Referred By Adam combs Referred To Contact Diagnoses Malignant neoplasm of rectum Malignant neoplasm of rectum [C20] Procedures AK SIGMOIDOSCOPY FLX DX W/COLLJ SPEC BR/WA IF PFRMD SIGMOIDOSCOPY DIAGNOSTIC Hilary Lewis MD [address] [address] [facility] [address] [place] [address] Referral ID Status Reason Start Date Expiration Date Visits Re quested Visits Authorized [id number] 1 1 [facility] for visit Narrative* Auth/Cert Specialty Diagnoses / Procedures Referred By Adam t Referred To Contact Diagnoses Dehydration, INOCENCIA Hilary Lewis MD [address] [address] [facility] [address] [place] [address] Referral ID Status Reason Start Date Expiration Date Visits Re quested Visits Authorized [id number] 1 1 [facility] Summary Purpose Family History No Family History Records Found Relationship Condition Age at Onset Recorded Date/T aster son Malignant neoplasm Unknown Advance Directives No Advanced Directives Records Found Date Activated Date Inactivated Comments 04/30/2024 2:14 PM Date Activated Date Inactivated Comments 04/29/2024 3:29 AM 04/30/2024 2:13 PM Date Activated Date Inactivated Comments 04/30/2024 2:14 PM Date Activated Date Inactivated Comments 04/29/2024 3:29 AM 04/30/2024 2:13 PM Date Activated Date Inactivated Comments 10/12/2024 12:18 AM Date Activated Date Inactivated Comments 04/30/2024 2:14 PM 10/12/2024 12:18 AM Date Activated Date Inactivated Comments 04/29/2024 3:29 AM 04/30/2024 2:13 PM Date Activated Date Inactivated Comments 10/12/2024 12:18 AM Date Activated Date Inactivated Comments 04/30/2024 2:14 PM 10/12/2024 12:18 AM Date Activated Date Inactivated Comments 04/29/2024 3:29 AM 04/30/2024 2:13 PM Advance Directive Response Recorded Date/ Time Advance Directives on File No February 16, 2025 9:18am Living Will No February 16, 2025 9:18am Do you have a Healthcare Power of Centrifugal Wax Molder? No February 16, 2025 9:18am Advance Directives No February 16 9:18am Do you have a Healthcare Power of Centrifugal Wax Molder? No February 24, 2025 7:42am Advance Directive Response Recorded Date/ Time Advance Directives on File No February 16, 2025 9:18am Living Will No February 16, 2025 9:18am Do you have a Healthcare Power of Centrifugal Wax Molder? No February 16, 2025 9:18am Advance Directives No February 16 9:18am Do you have a Healthcare Power of Centrifugal Wax Molder? No February 24, 2025 12:38pm Reason for Referral Specialty Diagnoses / Procedures Referred By Contac t Referred To Contact Diagnoses Abscess Procedures CT ABDOMEN/PELVIS WITH CONTRAST CHG CT ABDOMEN & PELVIS W/CONTRAST MATERIAL Hilary Lewis MD [address] [place] [address] Referral ID Status Reason Start Date Expiration Date V isits Requested Visits Authorized [id number] New Request 05/04/2024 05/29/2025 1 1 Specialty Diagnoses / Procedures Referred By Contac t Referred To Contact Urology Diagnoses Abscess Postprocedural urinary retention Hilary Lewis MD [address] [place] [phone] Referral ID Status Reason Start Date Expiration Date V isits Requested Visits Authorized [id number] New Request 05/03/2024 05/28/2025 1 1 Specialty Diagnoses / Procedures Referred By Contac t Referred To Contact Procedures PLATELET MONITORING PER PROTOCOL Hilary Lewis MD [address] [place] [phone] Referral ID Status Reason Start Date Expiration Date V isits Requested Visits Authorized [id number] New Request 05/01/2024 05/26/2025 1 1 Specialty Diagnoses / Procedures Referred By Contac t Referred To Contact Procedures DVT/VTE RISK ASSESSMENT Hilary Lewis MD [address] [place], [place] [phone] Referral ID Status Reason Start Date Expiration Date V isits Requested Visits Authorized [id number] New Request 05/01/2024 05/26/2025 1 1 Specialty Diagnoses / Procedures Referred By Contac t Referred To Contact Oncology Diagnoses Malignant neoplasm of rectum Hilary Lewis MD [address] [place] [phone] Referral ID Status Reason Start Date Expiration Date V isits Requested Visits Authorized [id number] New Request 05/20/2024 06/14/2025 1 1 Specialty Diagnoses / Procedures Referred By Contac t Referred To Contact Diagnoses Malignant neoplasm of rectum Hilary Lewis MD [address] [place] [address] Referral ID Status Reason Start Date Expiration Date V isits Requested Visits Authorized [id number] New Request 05/20/2024 06/14/2025 1 1 Specialty Diagnoses / Procedures Referred By Contac t Referred To Contact Radiation Oncology Diagnoses Malignant neoplasm of rectum Hilary Lewis MD [address] [facility] [address] [place] [address] Referral ID Status Reason Start Date Expiration Date V isits Requested Visits Authorized [id number] New Request 05/20/2024 06/14/2025 1 1 Specialty Diagnoses / Procedures Referred By Contac t Referred To Contact Diagnoses Malignant neoplasm of rectum Procedures MRI RECTUM WITHOUT AND WITH CONTRAST MRI PELVIS WITH AND WITHOUT CONTRAST CHG MRI PELVIS W/O & W/CONTRAST MATERIAL Shruthi Welch, VARIETY PERFORMER-GARMENT TAG STRINGER [address] [facility] [address] [place] [address] Referral ID Status Reason Start Date Expiration Date V isits Requested Visits Authorized [id number] New Request 09/01/2024 09/26/2025 1 1 Specialty Diagnoses / Procedures Referred By Contac t Referred To Contact Diagnoses Malignant neoplasm of rectum Procedures FLEXIBLE SIGMOIDOSCOPY AK SIGMOIDOSCOPY FLX DX W/COLLJ SPEC BR/WA IF PFRMD Hilary Lewis MD [address] [place] [address] Referral ID Status Reason Start Date Expiration Date V isits Requested Visits Authorized [id number] New Request 10/29/2024 11/23/2025 1 1 Chief Complaint and Reason for Visit Chief Complaint Admit Date F/U - LABS November 03, 2024 8 :40am New Patient November 05, 2024 8 :31am NEW START - LABS - FOLFOX November 08, 2024 7:32am BRADYCHARDIA November 08, 2024 8 :43am BRADYCHARDIA November 08, 2024 8 :56am Nonrheumatic mitral valve regurgitation November 10, 2024 9:09am [facility] [place] November 22, 2024 8 :46am [facility] [place] December 06, 2024 8:41am [facility] [place] December 20, 2024 8:29 am Acute-LABS December 28, 2024 7:4 3am [facility] [place] January 03, 2025 8:4 8am [facility] [place] January 17, 2025 8:2 8am [facility] [place] January 31, 2025 8:1 8am [facility] [place] February 14, 2025 8:5 1am HYDRATION February 16, 2025 8:4 5am SMALL BOWEL OBSTRUCTION, S/P APR COLOSTO MY February 24, 2025 11:29am Reason for Visit Admit Date Bradycardia November 03, 2024 8 :40am Acute on chronic renal failure October 202024 8:40am Malignant neoplasm of rectum October 8:40am Bradycardia November 05, 2024 8 :31am Chemotherapy management, encounter for J anuary 2024 7:32am Acute on chronic renal failure October 212024 7:32am Malignant neoplasm of rectum October 7:32am Chemotherapy management, encounter for F ebruary 2024 8:46am Cloudy urine November 22, 2024 8 :46am Acute on chronic renal failure November 22, 2024 8:46am Malignant neoplasm of rectum November 8:46am Acute on chronic renal failure December 06, 2024 8:41am Malignant neoplasm of rectum December 062024 8:41am Hypokalemia December 06, 2024 8:41am Acute on chronic renal failure December 8:29am Malignant neoplasm of rectum December 20, 2024 8:29am Cloudy urine December 28, 2024 7:4 3am Acute on chronic renal failure December 7:43am Malignant neoplasm of rectum December 28, 2024 7:43am Chemotherapy management, encounter for M arch 2024 8:48am Cough January 03, 2025 8:4 8am Malignant neoplasm of rectum January 03, 2025 8:48am Chemotherapy management, encounter for M arch 2024 8:28am Malignant neoplasm of rectum January 17, 2025 8:28am Chemotherapy management, encounter for A pril 2024 8:18am Malignant neoplasm of rectum January 31, 2025 8:18am Chemotherapy management, encounter for A pril 2024 8:51am UTI (urinary tract infection) January 8:51am Malignant neoplasm of rectum February 14, 2025 8:51am Chief Complaint Admit Date F/U - LABS November 03, 2024 8 :40am New Patient November 05, 2024 8 :31am NEW START - LABS - FOLFOX November 08, 2024 7:32am BRADYCHARDIA November 08, 2024 8 :43am BRADYCHARDIA November 08, 2024 8 :56am Nonrheumatic mitral valve regurgitation November 10, 2024 9:09am [facility] [place] November 22, 2024 8 :46am [facility] [place] December 06, 2024 8:41am [facility] [place] December 20, 2024 8:29 am Acute-LABS December 28, 2024 7:4 3am [facility] [place] January 03, 2025 8:4 8am [facility] [place] January 17, 2025 8:2 8am [facility] [place] January 31, 2025 8:1 8am [facility] [place] February 14, 2025 8:5 1am HYDRATION February 16, 2025 8:4 5am SMALL BOWEL OBSTRUCTION, S/P APR [facility] February 24, 2025 11:29am SMALL BOWEL OBSTRUCTION, S/P APR [facility] February 24, 2025 4:01pm SMALL BOWEL OBSTRUCTION, S/P APR [facility] February 25, 2025 8:34am SMALL BOWEL OBSTRUCTION, S/P APR [facility] February 25, 2025 12:53pm SMALL BOWEL OBSTRUCTION, S/P APR [facility] February 26, 2025 10:21am SMALL BOWEL OBSTRUCTION, S/P APR [facility] February 26, 2025 12:31pm SMALL BOWEL OBSTRUCTION, S/P APR [facility] February 27, 2025 8:37am SMALL BOWEL OBSTRUCTION, S/P APR [facility] February 27, 2025 2:36pm SMALL BOWEL OBSTRUCTION, S/P APR [facility] February 28, 2025 7:27am SMALL BOWEL OBSTRUCTION, S/P APR [facility] February 28, 2025 10:55am SMALL BOWEL OBSTRUCTION, S/P APR [facility] March 01, 2025 8:34am SMALL BOWEL OBSTRUCTION, S/P APR [facility] March 01, 2025 12:45pm Reason for Visit Admit Date Bradycardia November 03, 2024 8 :40am Acute on chronic renal failure October 202024 8:40am Malignant neoplasm of rectum October 8:40am Bradycardia November 05, 2024 8 :31am Chemotherapy management, encounter for J anuary 2024 7:32am Acute on chronic renal failure October 212024 7:32am Malignant neoplasm of rectum October 7:32am Chemotherapy management, encounter for F ebruary 2024 8:46am Cloudy urine November 22, 2024 8 :46am Acute on chronic renal failure November 22, 2024 8:46am Malignant neoplasm of rectum November 8:46am Acute on chronic renal failure December 06, 2024 8:41am Malignant neoplasm of rectum December 062024 8:41am Hypokalemia December 06, 2024 8:41am Acute on chronic renal failure December 8:29am Malignant neoplasm of rectum December 20, 2024 8:29am Cloudy urine December 28, 2024 7:4 3am Acute on chronic renal failure December 7:43am Malignant neoplasm of rectum December 28, 2024 7:43am Chemotherapy management, encounter for M arch 2024 8:48am Cough January 03, 2025 8:4 8am Malignant neoplasm of rectum January 03, 2025 8:48am Chemotherapy management, encounter for M arch 2024 8:28am Malignant neoplasm of rectum January 17, 2025 8:28am Chemotherapy management, encounter for A pril 2024 8:18am Malignant neoplasm of rectum January 31, 2025 8:18am Chemotherapy management, encounter for A pril 2024 8:51am UTI (urinary tract infection) January 8:51am Malignant neoplasm of rectum February 14, 2025 8:51am SBO (small bowel obstruction) February 24 11:29am Malignant neoplasm of rectum February 24 11:29am Additional Source Comments (unrecognized sect ion and content) No Status Records FoundNo Status Records FoundNo Status Records Found INFORMATION SOURCE (unrecogn ized section and content) DATE CREATED AUTHOR 03/18/2024 [facility] DATE CREATED AUTHOR AUTHOR'S ORGANIZ ATION 02/25/2025 [facility] DATE CREATED AUTHOR AUTHOR'S ORGANIZ ATION 03/19/2025 [facility] Reason for Visit (unrecogniz ed section and content) Reason Comments Post-Op Problem Reason Comments Follow-up Specialty Diagnoses / Procedures Referred By Adam t Referred To Contact Urology Diagnoses Abscess Postprocedural urinary retention Hilary Lewis MD [address] [address] Referral ID Status Reason Start Date Expiration Date V isits Requested Visits Authorized [id number] New Request 05/03/2024 05/28/2025 1 1 Specialty Diagnoses / Procedures Referred By Contac t Referred To Contact Diagnoses Abscess Procedures CT ABDOMEN/PELVIS WITH CONTRAST CHG CT ABDOMEN & PELVIS W/CONTRAST MATERIAL Hilary Lewis MD [address] [address] Referral ID Status Reason Start Date Expiration Date V isits Requested Visits Authorized [id number] New Request 05/04/2024 05/29/2025 1 1 Reason Comments Follow-up Follow up visit, his drain is leaking and he is wanting it out. The output has been low. Reason Comments Follow-up Follow up visit, he did have his radiation and chemo. His eating has slowed down and he has no energy. Specialty Diagnoses / Procedures Referred By Adam combs Referred To Contact Diagnoses Malignant neoplasm of rectum Procedures MRI RECTUM WITHOUT AND WITH CONTRAST MRI PELVIS WITH AND WITHOUT CONTRAST CHG MRI PELVIS W/O & W/CONTRAST MATERIAL Shruthi Welch, [employer]IETY PERFORMER-[employer]MENT [employer] [address] [facility] [address] [place] [address] Referral ID Status Reason Start Date Expiration Date V isits Requested Visits Authorized [id number] New Request 09/01/2024 09/26/2025 1 1 Specialty Diagnoses / Procedures Referred By Adam combs Referred To Contact Urology Diagnoses Hydronephrosis, unspecified hydronephrosis type Carmelina Sanders DO [address] [place] [address] Referral ID Status Reason Start Date Expiration Date V isits Requested Visits Authorized [id number] New Request 10/12/2024 11/06/2025 1 1 Reason Comments Follow-up Hospital follow up v isit, no bleeding and no pain today. His appetite has returned and he is eating more. Specialty Diagnoses / Procedures Referred By Adam combs Referred To Contact Colon And Rectal Surgery / Colon & Rectal Surgery Diagnoses CP - Complete GR follow up post MRI MRI Completed 10/06/24 on FA 100% thru 05/03/25 Procedures RETURN TELEPHONE - PROVIDER Self, Hilary Walters MD [address] [place] [address] Referral ID Status Reason Start Date Expiration Date Visits Re quested Visits Authorized [id number] Denied 10/21/2024 11/15/2025 1 0 Scheduled Active and Recently Administ ered Medications (unrecognized section and content) Medication Order 04/28/2024 04/29/2024 04/30/2024 Acetaminophen (TYLENOL) tablet 975 mg 975 mg, Oral, 3 TIMES DAILY, First dose on Toma 04/29/24 at 0900, Until Discontinued, Maximum dose of acetaminophen is 4000 mg from all sources in 24 hours. 0930 (Not Given - Provider: Won Garg RN - Reason: Other - Comment: NPO. difficulty swallowing pills)1405 (Not Given - Provider: Won Garg RN - Reason: Patient/family refused)2150 (Not Given - Provider: Sue Martin RN - Reason: Patient/family refused) 0818 (Not Given - Provider: Mara Tang RN - Reason: Patient/family refused) Enoxaparin Sodium (LOVENOX) injection 40 mg 40 mg, Subcutaneous, EVERY 24 HOURS, First dose on Toma 04/29/24 at 0900, Until Discontinued, For SUBCUTANEOUS route ONLY: alternate injection sites between left and right abdominal wall, pinching location and avoiding area around navel. If unable to use abdominal sites, may use the front or side of thighs., Indications: DVT/PE prophylaxis 0900 (Not Given - Provider: Won Garg RN - Reason: Patient/family refused) 0818 (Not Given - Provider: Mara Tang RN - Reason: Patient/family refused) Iohexol (OMNIPAQUE) 300 MG/ML 50 mL in Water liquid (free water) 950 mL (COMPLETED) 15,000 mg, Oral, ONCE, 1 dose, On Toma 04/29/24 at 0445, For administration to inpatients, to be given by RN on inpatient nursing unit., CT Procedure 0447 (Given - Radiology - Provider: Heaven Cedeño) iohexol (OMNIPAQUE) 350 MG/ML injection 1-171 mL (COMPLETED) 1-171 mL, Intravenous, ONCE, 1 dose, On Toma 04/29/24 at 0700, Extravasation Risk, CT Procedure 0656 (Given - Radiology - Provider: Rachael Hoffman) Lidocaine-epinephrine 1%-[id number] injection 20 mL (COMPLETED) 20 mL, Other, ONCE, 1 dose, On Toma 04/29/24 at 0330, To bedside for physician administration. 0331 (Given - Provider: Renee Cox RN) Piperacillin-tazobactam (ZOSYN) 4.5 g in dextrose premix IVPB 4.5 g, Intravenous, Administer over 4 Hours, EVERY 8 HOURS NON-STANDARD, First dose on Toma 04/29/24 at 0300, Until Discontinued, Infuse STAT doses over 30 minutes. Infuse other doses over 4 hours. Contains a penicillin., Indications: Empiric therapy 0457 ($$New Bag$$ - Provider: Renee Cox RN)0523 (Paused - Provider: Won Garg RN)0525 (Restarted - Provider: Won Garg RN)0820 (Rate/Dose Verify - Provider: Won Garg RN)0900 (Stopped - Provider: Won Garg RN)1118 ($$New Bag$$ - Provider: Won Garg RN)1123 (Paused - Provider: Won Garg RN)1125 (Restarted - Provider: Won Garg RN)1153 (Paused - Provider: Won Garg RN)1202 (Restarted - Provider: Won Garg RN)1406 (Rate/Dose Verify - Provider: Won Garg RN)1544 (Stopped - Provider: Won Garg RN)1845 ($$New Bag$$ - Provider: Won Garg RN)2250 (Stopped - Provider: Sue Martin RN) 0300 ($$New Bag$$ - Provider: Sue Martin RN)0719 (Stopped - Provider: Mara Tang RN)1142 ($$New Bag$$ - Provider: Mara Tang RN) Potassium chloride (K-DUR) tablet ER 40 mEq 40 mEq, Oral, ONCE, 1 dose, On Toma 04/29/24 at 0330, Swallow tablets whole; do not crush, chew, or suck on tablet. Tablet may also be broken in half and each half swallowed separately. 0621 (Not Given - Provider: Renee Cox RN - Reason: Patient/family refused) Potassium chloride 10 mEq in sterile water 100 ml premix IVPB (COMPLETED)(Linked Group 1) 10 mEq, Intravenous, Administer over 60 Minutes, ONCE, 1 dose, On Toma 04/29/24 at 0100 0132 ($$New Bag$$ - Provider: Renee Cox RN)0232 (Stopped - Provider: Renee Cox RN) Potassium chloride 10 mEq in sterile water 100 ml premix IVPB (COMPLETED)(Linked Group 1) 10 mEq, Intravenous, Administer over 60 Minutes, ONCE, 1 dose, On Toma 04/29/24 at 0200 0220 ($$New Bag$$ - Provider: Renee Cox RN)0320 (Stopped - Provider: Renee Cox RN) Potassium chloride 10 mEq in sterile water 100 ml premix IVPB (COMPLETED)(Linked Group 1) 10 mEq, Intravenous, Administer over 60 Minutes, ONCE, 1 dose, On Toma 04/29/24 at 0300 0320 ($$New Bag$$ - Provider: Renee Cxo RN)0420 (Stopped - Provider: Renee Cox RN) Potassium chloride 10 mEq in sterile water 100 ml premix IVPB (COMPLETED)(Linked Group 1) 10 mEq, Intravenous, Administer over 60 Minutes, ONCE, 1 dose, On Fri04/29/24 at 0400 0428 ($$New Bag$$ - Provider: Renee Cox RN)0528 (Stopped - Provider: Renee Cox RN) Potassium chloride 10 mEq in sterile water 100 ml premix IVPB (COMPLETED)(Linked Group 1) 10 mEq, Intravenous, Administer over 60 Minutes, ONCE, 1 dose, On Fri04/29/24 at 0500 0625 ($$New Bag$$ - Provider: Renee Cox RN)0721 (Stopped - Provider: Won Garg RN) Potassium chloride 10 mEq in sterile water 100 ml premix IVPB (COMPLETED)(Linked Group 1) 10 mEq, Intravenous, Administer over 60 Minutes, ONCE, 1 dose, On Fri04/29/24 at 0600 0721 ($$New Bag$$ - Provider: Won Garg RN - Comment: pump manually programmed)0820 (Stopped - Provider: Won Garg RN) Continuous Medication Order 04/28/2024 04/29/2024 04/30/2024 dextrose 5% and sodium chloride 0.45% 1,000 ml with potassium chloride 20 mEq premix IV solution Intravenous, at 75 mL/hr, CONTINUOUS, Starting on Fri04/29/24 at 0330, Until Fri04/30/24 at 1338 0456 ($$New Bag$$ - Provider: Renee Cox RN)0820 (Rate/Dose Verify - Provider: Won Garg RN)0957 (Rate/Dose Verify - Provider: Won Garg RN)1014 (Rate/Dose Verify - Provider: Won Garg, FERNANDO)1153 (Paused - Provider: Won Garg RN)1202 (Restarted - Provider: Won Garg RN)1406 (Rate/Dose Verify - Provider: Won Garg RN)1520 (Paused - Provider: Won Garg RN)1528 (Restarted - Provider: Won Garg RN)1638 (Rate/Dose Verify - Provider: Won Garg RN)1655 (Paused - Provider: Won Garg RN)1657 (Restarted - Provider: Won Garg RN)1837 (Rate/Dose Verify - Provider: Won Garg RN)1840 (Restarted - Provider: Mara Tang RN)1846 (Stopped - Provider: Mara Tang RN)1846 ($$New Bag$$ - Provider: Won Garg RN)1846 (Rate/Dose Verify - Provider: Mara Tang RN)2346 (Rate/Dose Verify - Provider: Sue Martin RN) 0451 (Rate/Dose Verify - Provider: Sue Martin RN)0529 (Paused - Provider: Mara Tang RN)0531 (Restarted - Provider: Mara Tang RN)0536 (Paused - Provider: Mara Tang RN)0550 (Restarted - Provider: Mara Tang RN)0722 (Rate/Dose Verify - Provider: Mara Tang RN)0809 (Restarted - Provider: Mara Tang RN)0928 (Rate/Dose Verify - Provider: Mara Tang RN)0951 (Restarted - Provider: Mara Tang RN)0954 (Rate/Dose Verify - Provider: Mara Tang RN)0955 (Stopped - Provider: Mara Tang RN)0955 ($$New Bag$$ - Provider: Mara Tang RN)1135 (Paused - Provider: Mara Tang RN)1137 (Restarted - Provider: Mara Tang RN)1214 (Rate/Dose Verify - Provider: Mara Tang RN) Lactated ringers IV solution (CANCELED) Intravenous, at 75 mL/hr, CONTINUOUS, Starting on Toma 04/29/24 at 0100, Until Toma 04/29/24 at 0329, For hydration 0134 ($$New Bag$$ - Provider: Renee Cox RN)0641 (Stopped - Provider: Renee Cox RN) PRN Medication Order 04/28/2024 04/29/2024 04/30/2024 Ondansetron (ZOFRAN) tablet 4 mg(Linked Group 2) 4 mg, Oral, EVERY 6 HOURS NEEDED, Starting on Toma 04/29/24 at 0325, Until Fri04/30/24 at 1338, Nausea / Vomiting, 1st Line Nausea / Vomiting Ondansetron 4mg/2ml (ZOFRAN) injection 4 mg(Linked Group 2) 4 mg, Intravenous, EVERY 6 HOURS NEEDED, Starting on Toma 04/29/24 at 0325, Until Fri04/30/24 at 1338, Nausea / Vomiting, 1st Line Nausea / Vomiting, If patient is unable to tolerate PO. oxyCODONE (ROXICODONE) tablet 5 mg(Linked Group 3) 5 mg, Oral, EVERY 4 HOURS NEEDED, Starting on Toma 04/29/24 at 0326, Until Fri04/30/24 at 1338, Moderate Pain, Severe Pain, Use as initial dose. Higher dose may be administered if lower dose was previously documented as ineffective and did not result in adverse effects (RR<10, decrease in level of consciousness). oxyCODONE HCl (ROXICODONE) tablet 10 mg(Linked Group 3) 10 mg, Oral, EVERY 4 HOURS NEEDED, Starting on Toma 04/29/24 at 0326, Until Fri04/30/24 at 1338, Moderate Pain, Severe Pain, Higher dose may be administered if lower dose was previously documented as ineffective and did not result in adverse effects (RR<10, decrease in level of consciousness). Decrease back to lower dose if patient has adverse effects, or no PRN used in previous 12 hours. Phenol (CHLORASEPTIC) 1.4 % oral spray 1 spray 1 spray, Mouth/Throat, NEEDED, Starting on Toma 04/29/24 at 0325, Until Fri04/30/24 at 1338, Sore Throat, Patient may self-administer. Prochlorperazine (COMPAZINE) injection 5 mg(Linked Group 4) 5 mg, Intravenous, EVERY 6 HOURS NEEDED, Starting on Toma 04/29/24 at 0325, Until Fri04/30/24 at 1338, Refractory Nausea Vomiting, If unrelieved by Ondansetron. Administer IV if patient is unable to tolerate PO. Prochlorperazine (COMPAZINE) tablet 5 mg(Linked Group 4) 5 mg, Oral, EVERY 6 HOURS NEEDED, Starting on Fri04/29/24 at 0325, Until Fri04/30/24 at 1338, Refractory Nausea Vomiting, If unrelieved by Ondansetron. Sodium chloride (PF) 0.9 % injection 1-100 mL (COMPLETED) 1-100 mL, Intravenous, ONCE NEEDED, 1 dose, Starting on Fri04/29/24 at 0653, Until Fri04/29/24 at 0653, Flush, CT Procedure 0653 (Given - Provider: Rachael Hoffman) Sodium chloride 0.9% IV solution 250 mL Intravenous, at 20 mL/hr, NEEDED, Starting on Fri04/29/24 at 0325, Until Fri04/30/24 at 1338, Carrier Fluid - See Admin. Inst, 250mL 0.9NS to be used as carrier fluid for intermittent small volume or piggyback medication administration as needed. Infusion rate of the carrier fluid should be set at 20 mL/hr unless the rate as the intermittent medication is less than 20 mL/hr. For intermittent medications with a rate less than 20 mL/hr set the carrier fluid at that rate of the intermittent or piggy back medication. Linked Groups Order Group 1: Potassium chloride 10 mEq in sterile water 100 ml premix IVPB (COMPLETED)Jump to med 10 mEq, Intravenous, Administer over 60 Minutes, ONCE, 1 dose, On Fri04/29/24 at 0100 Followed by Potassium chloride 10 mEq in sterile water 100 ml premix IVPB (COMPLETED)Jump to med 10 mEq, Intravenous, Administer over 60 Minutes, ONCE, 1 dose, On Fri04/29/24 at 0200 Followed by Potassium chloride 10 mEq in sterile water 100 ml premix IVPB (COMPLETED)Jump to med 10 mEq, Intravenous, Administer over 60 Minutes, ONCE, 1 dose, On Fri04/29/24 at 0300 Followed by Potassium chloride 10 mEq in sterile water 100 ml premix IVPB (COMPLETED)Jump to med 10 mEq, Intravenous, Administer over 60 Minutes, ONCE, 1 dose, On Fri04/29/24 at 0400 Followed by Potassium chloride 10 mEq in sterile water 100 ml premix IVPB (COMPLETED)Jump to med 10 mEq, Intravenous, Administer over 60 Minutes, ONCE, 1 dose, On Toma 04/29/24 at 0500 Followed by Potassium chloride 10 mEq in sterile water 100 ml premix IVPB (COMPLETED)Jump to med 10 mEq, Intravenous, Administer over 60 Minutes, ONCE, 1 dose, On Toma 04/29/24 at 0600 Group 2: Ondansetron (ZOFRAN) tablet 4 mgJump to med 4 mg, Oral, EVERY 6 HOURS NEEDED, Starting on Toma 04/29/24 at 0325, Until Fri04/30/24 at 1338, Nausea / Vomiting, 1st Line Nausea / Vomiting Or Ondansetron 4mg/2ml (ZOFRAN) injection 4 mgJump to med 4 mg, Intravenous, EVERY 6 HOURS NEEDED, Starting on Toma 04/29/24 at 0325, Until Fri04/30/24 at 1338, Nausea / Vomiting, 1st Line Nausea / Vomiting, If patient is unable to tolerate PO. Group 3: oxyCODONE (ROXICODONE) tablet 5 mgJump to med 5 mg, Oral, EVERY 4 HOURS NEEDED, Starting on Toma 04/29/24 at 0326, Until Fri04/30/24 at 1338, Moderate Pain, Severe Pain, Use as initial dose. Higher dose may be administered if lower dose was previously documented as ineffective and did not result in adverse effects (RR<10, decrease in level of consciousness). Or oxyCODONE HCl (ROXICODONE) tablet 10 mgJump to med 10 mg, Oral, EVERY 4 HOURS NEEDED, Starting on Toma 04/29/24 at 0326, Until Fri04/30/24 at 1338, Moderate Pain, Severe Pain, Higher dose may be administered if lower dose was previously documented as ineffective and did not result in adverse effects (RR<10, decrease in level of consciousness). Decrease back to lower dose if patient has adverse effects, or no PRN used in previous 12 hours. Group 4: Prochlorperazine (COMPAZINE) tablet 5 mgJump to med 5 mg, Oral, EVERY 6 HOURS NEEDED, Starting on Toma 04/29/24 at 0325, Until Fri04/30/24 at 1338, Refractory Nausea Vomiting, If unrelieved by Ondansetron. Or Prochlorperazine (COMPAZINE) injection 5 mgJump to med 5 mg, Intravenous, EVERY 6 HOURS NEEDED, Starting on Toma 04/29/24 at 0325, Until Fri04/30/24 at 1338, Refractory Nausea Vomiting, If unrelieved by Ondansetron. Administer IV if patient is unable to tolerate PO. Scheduled Medication Order 05/07/2024 05/08/2024 05/09/2024 AMIOdarone (PACERONE) tablet 200 mg 200 mg, Oral, DAILY, First dose on 05/01/24 at 1030, Until Discontinued 0954 (Given - Provider: Angelique Merchant RN)1432 (DEC Hold - Provider: Automatic Transfer - Reason: Transfer to a Procedural area)1639 ([facility] Unhold - Provider: Automatic Transfer) 0856 (Given - Provider: Angelique Merchant RN) 1034 (Given - Provider: Angelique Merchant RN) Amoxicillin-clavulanate (AUGMENTIN) 875-125 MG per tablet 1 tablet 1 tablet, Oral, EVERY 12 HOURS, 20 doses, First dose on 05/08/24 at 0945, Last dose on Fri05/17/24 at 2100 1214 (Given - Provider: Angelique Merchant RN)2044 (Given - Provider: Giovanna Cifuentes RN) 1034 (Given - Provider: Angelique Merchant RN) Ascorbic acid tablet 250 mg 250 mg, Oral, 2 TIMES DAILY, 28 doses, First dose on Fri05/03/24 at 1700, Last dose on Fri05/17/24 at 0900 1026 (Not Given - Provider: Angelique Merchant RN - Reason: Patient/family refused)1432 ([facility] Hold - Provider: Automatic Transfer - Reason: Transfer to a Procedural area)1639 ([facility] Unhold - Provider: Automatic Transfer)1825 (Not Given - Provider: Angelique Merchant RN - Reason: Patient/family refused) 0856 (Given - Provider: Angelique Merchant RN)1604 (Given - Provider: Angelique Merchant RN) 1034 (Given - Provider: Angelique Merchant RN) aspirin chewable tablet 81 mg 81 mg, Oral, DAILY, First dose on 05/01/24 at 1030, Until Discontinued 0900 (Automatically Held - Provider: Shruthi Reese MD)1637 (Unheld by provider - Provider: Shruthi Reese MD) 0857 (Given - Provider: Angelique Merchant RN) 1034 (Given - Provider: Angelique Merchant RN) Docusate (COLACE) capsule 100 mg 100 mg, Oral, EVERY 12 HOURS, First dose on Fri05/03/24 at 2100, Until Discontinued 1026 (Not Given - Provider: Angelique Merchant RN - Reason: Patient/family refused)1432 ([facility] Hold - Provider: Automatic Transfer - Reason: Transfer to a Procedural area)163 ([facility] Unhold - Provider: Automatic Transfer)210 (Given - Provider: Giovanna Cifuentes RN) 0858 (Given - Provider: Angelique Merchant RN)204 (Given - Provider: Giovanna Cifuentes RN) 103 (Given - Provider: Angelique Merchant RN) Enoxaparin Sodium (LOVENOX) injection 40 mg 40 mg, Subcutaneous, EVERY 24 HOURS, First dose on Fri05/01/24 at 0900, Until Discontinued, For SUBCUTANEOUS route ONLY: alternate injection sites between left and right abdominal wall, pinching location and avoiding area around navel. If unable to use abdominal sites, may use the front or side of thighs., Indications: DVT/PE prophylaxis 0900 (Automatically Held - Provider: Shruthi Reese MD)163 (Unheld by provider - Provider: Shruthi Reese MD) 0857 (Given - Provider: Angelique Merchant RN) 1035 (Given - Provider: Angelique Merchant RN) Multivitamin w/ minerals (THERAPEUTIC-M) tablet 1 tablet 1 tablet, Oral, DAILY, First dose on Fri05/04/24 at 0900, Until Discontinued 1026 (Not Given - Provider: Angelique Merchant RN - Reason: Patient/family refused)1432 (MAR Hold - Provider: Automatic Transfer - Reason: Transfer to a Procedural area)163 ([facility] Unhold - Provider: Automatic Transfer) 0856 (Given - Provider: Angelique Merchant RN) 103 (Given - Provider: Angelique Merchant RN) Piperacillin-tazobactam (ZOSYN) 4.5 g in dextrose premix IVPB (CANCELED) 4.5 g, Intravenous, Administer over 4 Hours, EVERY 8 HOURS NON-STANDARD, First dose (after last modification) on Fri04/30/24 at 1900, Until Discontinued, Infuse STAT doses over 30 minutes. Infuse other doses over 4 hours. Contains a penicillin., Indications: Empiric therapy, Discharge Readmit 0155 ($$New Bag$$ - Provider: Sherin León RN)0957 ($$New Bag$$ - Provider: Angelique Merchant RN)1432 ([facility] Hold - Provider: Automatic Transfer - Reason: Transfer to a Procedural area)1639 ([facility] Unhold - Provider: Automatic Transfer)2105 ($$New Bag$$ - Provider: Giovanna Cifuentes RN) 0342 ($$New Bag$$ - Provider: Giovanna Cifuentes RN) Tamsulosin HCl (FLOMAX) capsule 0.4 mg 0.4 mg, Oral, DAILY, First dose (after last modification) on Fri05/02/24 at 1000, Until Discontinued, Slow release product. Do not chew or crush 0955 (Given - Provider: Angelique Merchant RN)1432 ([facility] Hold - Provider: Automatic Transfer - Reason: Transfer to a Procedural area)163 ([facility] Unhold - Provider: Automatic Transfer) 0856 (Given - Provider: Angelique Merchant RN) 1034 (Given - Provider: Angelique Merchant RN) Thiamine (Vitamin B-1) injection 100 mg 100 mg, Intravenous, DAILY, 7 doses, First dose on Fri05/04/24 at 0900, Last dose on Fri05/10/24 at 0900 1026 (Not Given - Provider: Angelique Merchant RN - Reason: Patient/family refused)1432 ([facility] Hold - Provider: Automatic Transfer - Reason: Transfer to a Procedural area)163 ([facility] Unhold - Provider: Automatic Transfer) 0856 (Given - Provider: Angelique Merchant RN) 1035 (Given - Provider: Angelique Merchant RN) zinc sulfate (ZINCATE) capsule 220 mg 220 mg, Oral, DAILY BEFORE BREAKFAST, 14 doses, First dose on Fri05/04/24 at 0600, Last dose on Fri05/17/24 at 0600, Take 1 hr before, 2 hr after meals. 0702 (Given - Provider: Sherin León RN)1432 ([facility] Hold - Provider: Automatic Transfer - Reason: Transfer to a Procedural area)1639 ([facility] Unhold - Provider: Automatic Transfer) 0638 (Given - Provider: Giovanna Cifuentes RN) 1035 (Given - Provider: Angelique Merchant RN) Continuous Medication Order 05/07/2024 05/08/2024 05/09/2024 Dextrose 5% and sodium chloride 0.45% IV solution (CANCELED) Intravenous, at 100 mL/hr, CONTINUOUS, Starting on Fri05/07/24 at 0015, Until 05/08/24 at 2100 0152 ($$New Bag$$ - Provider: Sherin León RN)0957 (Paused - Provider: Angelique Merchant RN)1357 (Restarted - Provider: Angelique Merchant RN)1432 ([facility] Hold - Provider: Automatic Transfer - Reason: Transfer to a Procedural area)1639 ([facility] Unhold - Provider: Automatic Transfer)2100 (Restarted - Provider: Giovanna Cifuentes RN)2103 (Rate/Dose Verify - Provider: Angelique Merchant RN)2130 (Rate/Dose Verify - Provider: Angelique Merchant RN) 0641 (Rate/Dose Verify - Provider: Angelique Merchant RN)0709 (Paused - Provider: Angelique Merchant RN)0711 (Restarted - Provider: Angelique Merchant RN)0855 (Stopped - Provider: Angelique Merchant RN)0855 (Stopped - Provider: Angelique Merchant RN)0901 (Stopped - Provider: Angelique Merchant RN) PRN Medication Order 05/07/2024 05/08/2024 05/09/2024 Acetaminophen (TYLENOL) tablet 975 mg 975 mg, Oral, 3 TIMES DAILY NEEDED, Starting on Fri04/30/24 at 2315, Until Fri05/09/24 at 1614, Mild Pain, Moderate Pain, Maximum dose of acetaminophen is 4000 mg from all sources in 24 hours., Discharge Readmit 1432 ([facility] Hold - Provider: Automatic Transfer - Reason: Transfer to a Procedural area)1639 ([facility] Unhold - Provider: Automatic Transfer) cefTRIAXone (ROCEPHIN) 2 g in dextrose 50mL premix IVPB (COMPLETED) 2 g, Intravenous, Administer over 30 Minutes, 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, 1 dose, Starting on Fri05/07/24 at 1353, Until Fri05/07/24 at 1601, Surgical Prophylaxis, Initiate antibiotic administration 30-60 minutes prior to surgical incision and complete administration prior to surgical incision., Pre-op/Pre-Proc 1539 ($$New Bag$$ - Provider: Gloria Bauer, FERNANDO)1601 (Stopped - Provider: Arron Lamar RN) fentaNYL (SUBLIMAZE) injection 0-300 mcg (CANCELED) 0-300 mcg, Intravenous, Administer over 2 Minutes, ADMINISTER DIRECTED, Starting on Fri05/07/24 at 1456, Until Fri05/07/24 at 1639, intraoperative pain management, Administer during procedure as directed by physician. Recorded MAR dose is cumulative amount given during procedure., Intra-op/Intra-Proc 1606 (Given - Provider: Arron Lamar, FERNANDO)1615 (Given - Provider: Arron Lamar RN) Lidocaine 2 % injection (COMPLETED) ONCE NEEDED, 1 dose, Starting on Fri05/07/24 at 1619, Until Fri05/07/24 at 1619, Intra-op/Intra-Proc 1619 (Given - Provider: Catherine Delatorre II, MD - Comment: drain placement) magnesium oxide (MAG-OX) tablet 400-800 mg(Linked Group 1) 400-800 mg, Oral, ADMINISTER DIRECTED, Starting on Fri04/30/24 at 1758, Until Fri05/09/24 at 1614, See admin instructions, Other, Surgery Non-ICU Electrolyte Replacement Protocol, EXCLUDE patients less than 50kg, Scr greater than or equal to 2, CrCl less than 30ml/min, ESRD, renal replacement therapy, or history of renal transplant. If patient has a diet, is receiving tube feeds or is receiving other medications via tube, enteral route is preferred unless magnesium level is less than or equal to 1.3 mg/dL. If patient has high volume output (diarrhea, ileostomy, colostomy, fistula, NG tube) greater than 1L in last 24h or has no enteral access, utilize IV replacement. If magnesium level is 1.7-1.9 mg/dL administer 400mg ; If magnesium level is 1.4-1.6 mg/dL administer 800 mg; If magnesium level less than or equal to 1.3 mg/dL use IV replacement. 1432 ([facility] Hold - Provider: Automatic Transfer - Reason: Transfer to a Procedural area)1639 ([facility] Unhold - Provider: Automatic Transfer) magnesium oxide (MAG-OX) tablet 400-800 mg(Linked Group 1) 400-800 mg, Per NG tube, ADMINISTER DIRECTED, Starting on Fri04/30/24 at 1758, Until 05/09/24 at 1614, See admin instructions, Other, Surgery Non-ICU Electrolyte Replacement Protocol, EXCLUDE patients less than 50kg, Scr greater than or equal to 2, CrCl less than 30ml/min, ESRD, renal replacement therapy, or history of renal transplant. If patient has a diet, is receiving tube feeds or is receiving other medications via tube, enteral route is preferred unless magnesium level is less than or equal to 1.3 mg/dL. If patient has high volume output (diarrhea, ileostomy, colostomy, fistula, NG tube) greater than 1L in last 24h or has no enteral access, utilize IV replacement. If magnesium level is 1.7-1.9 mg/dL administer 400mg; If magnesium level is 1.4-1.6 mg/dL administer 800 mg; If magnesium level less than or equal to 1.3 mg/dL use IV replacement. 143 ([facility] Hold - Provider: Automatic Transfer - Reason: Transfer to a Procedural area)163 ([facility] Unhold - Provider: Automatic Transfer) Magnesium sulfate 1 g in dextrose 5% 100 mL premix IVPB(Linked Group 1) 1 g, Intravenous, Administer over 60 Minutes, ADMINISTER DIRECTED, Starting on Fri04/30/24 at 1758, Until 05/09/24 at 1614, Other, Surgery Non-ICU Electrolyte Replacement Protocol, EXCLUDE patients less than 50kg, Scr greater than or equal to 2, CrCl less than 30ml/min, ESRD, renal replacement therapy, or history of renal transplant. If patient has a diet, is receiving tube feeds or is receiving other medications via tube, enteral route is preferred unless magnesium level is less than or equal to 1.3 mg/dL. If patient has high volume output (diarrhea, ileostomy, colostomy, fistula, NG tube) greater than 1L in last 24h or has no enteral access, utilize IV replacement. If magnesium level is 1.4-1.9 mg/dL and unable to take enteral dose due to high volume output; administer 2g. 143 ([facility] Hold - Provider: Automatic Transfer - Reason: Transfer to a Procedural area)163 ([facility] Unhold - Provider: Automatic Transfer) Magnesium sulfate 4 g in sterile water 50 ml premix IVPB(Linked Group 1) 4 g, Intravenous, Administer over 4 Hours, ADMINISTER DIRECTED, Starting on Fri04/30/24 at 1758, Until Fri05/09/24 at 1614, Other, Surgery Non-ICU Electrolyte Replacement Protocol, EXCLUDE patients less than 50kg, Scr greater than or equal to 2, CrCl less than 30ml/min, ESRD, renal replacement therapy, or history of renal transplant. If patient has a diet, is receiving tube feeds or is receiving other medications via tube, enteral route is preferred unless magnesium level is less than or equal to 1.3 mg/dL. If patient has high volume output (diarrhea, ileostomy, colostomy, fistula, NG tube) greater than 1L in last 24h or has no enteral access, utilize IV replacement. If magnesium level less than or equal to 1.3 mg/dL administer 4g, Notify physician, and repeat magnesium level 8 hours after magnesium replacement dose administered. 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 Recorded MAR dose is cumulative amount given during procedure., Intra-op/Intra-Proc 1606 (Given - Provider: Arron Lamar RN)1616 (Given - Provider: Arron Lamar RN) Ondansetron (ZOFRAN) tablet 4 mg(Linked Group 2) 4 mg, Oral, EVERY 6 HOURS NEEDED, Starting on Fri04/30/24 at 1413, Until Fri05/09/24 at 1614, Nausea / Vomiting, 1st Line Nausea / Vomiting, Discharge Readmit 1432 ([facility] Hold - Provider: Automatic Transfer - Reason: Transfer to a Procedural area)1639 ([facility] Unhold - Provider: Automatic Transfer) Ondansetron 4mg/2ml (ZOFRAN) injection 4 mg(Linked Group 2) 4 mg, Intravenous, EVERY 6 HOURS NEEDED, Starting on 04/30/24 at 1413, Until 05/09/24 at 1614, Nausea / Vomiting, 1st Line Nausea / Vomiting, If patient is unable to tolerate PO., Discharge Readmit 1432 ([facility] Hold - Provider: Automatic Transfer - Reason: Transfer to a Procedural area)1639 ([facility] Unhold - Provider: Automatic Transfer) oxyCODONE (ROXICODONE) tablet 5 mg(Linked Group 3) 5 mg, Oral, EVERY 4 HOURS NEEDED, Starting on Fri04/30/24 at 1413, Until 05/09/24 at 1614, Moderate Pain, Severe Pain, Use as initial dose. Higher dose may be administered if lower dose was previously documented as ineffective and did not result in adverse effects (RR<10, decrease in level of consciousness)., Discharge Readmit 1432 ([facility] Hold - Provider: Automatic Transfer - Reason: Transfer to a Procedural area)1639 ([facility] Unhold - Provider: Automatic Transfer) oxyCODONE HCl (ROXICODONE) tablet 10 mg(Linked Group 3) 10 mg, Oral, EVERY 4 HOURS NEEDED, Starting on 04/30/24 at 1413, Until 05/09/24 at 1614, Moderate Pain, Severe Pain, Higher dose may be administered if lower dose was previously documented as ineffective and did not result in adverse effects (RR<10, decrease in level of consciousness). Decrease back to lower dose if patient has adverse effects, or no PRN used in previous 12 hours., Discharge Readmit 1432 ([facility] Hold - Provider: Automatic Transfer - Reason: Transfer to a Procedural area)1639 ([facility] Unhold - Provider: Automatic Transfer) Phenol (CHLORASEPTIC) 1.4 % oral spray 1 spray 1 spray, Mouth/Throat, NEEDED, Starting on Fri04/30/24 at 1413, Until 05/09/24 at 1614, Sore Throat, Patient may self-administer., Discharge Readmit 1432 ([facility] Hold - Provider: Automatic Transfer - Reason: Transfer to a Procedural area)1639 ([facility] Unhold - Provider: Automatic Transfer) Potassium Bicarb-Citric Acid (Effer-K) 20 MEQ effervescent tablets for oral solution 20-80 mEq(Linked Group 4) 20-80 mEq, Per NG tube, ADMINISTER DIRECTED, Starting on Fri04/30/24 at 1758, Until 05/09/24 at 1614, Other, Surgery Non-ICU Electrolyte Replacement Protocol, -Do not swallow whole. Dissolve completely in 3-4 ounces of water or cold juice before drinking. If administering via J tube, dilute in sterile water, wait for tablet to stop fizzing, swirl the solution and draw into a syringe suitable for attaching to the tube. After administration, flush tube with 15-30 mL water. EXCLUDE patients less than 50kg, Scr greater than or equal to 2, CrCl less than 30ml/min, ESRD, renal replacement therapy, or history of renal transplant. If patient has a diet, is receiving tube feeds or other medications via tube, enteral route is preferred unless potassium level is less than or equal to 2.9 mmol/L. If patient has high volume output (diarrhea, ileostomy, colostomy, fistula, NG tube) greater than 1L in last 24 hours or has no enteral access, utilize IV replacement. If potassium level 3.8-3.9 mmol/L administer 20 mEq; If potassium level 3.6-3.7 mmol/L administer 40 mEq; If potassium level 3.4-3.5 mmol/L administer 60 mEq; If potassium level 3-3.3 mmol/L administer 80 mEq. If potassium level less than or equal to 2.9 mmol/L use IV replacement. 1432 ([facility] Hold - Provider: Automatic Transfer - Reason: Transfer to a Procedural area)1639 ([facility] Unhold - Provider: Automatic Transfer) Potassium chloride (K-DUR) tablet ER 20-80 mEq(Linked Group 4) 20-80 mEq, Oral, ADMINISTER DIRECTED, Starting on Fri04/30/24 at 1758, Until 05/09/24 at 1614, See admin instructions, Surgery Non-ICU Electrolyte Replacement Protocol, -Swallow tablets whole; do not crush, chew, or suck on tablet. Tablet may also be broken in half and each half swallowed separately.- EXCLUDE patients less than 50kg, Scr greater than or equal to 2, CrCl less than 30 mL/min, ESRD, renal replacement therapy, or history of renal transplant. If patient has a diet, is receiving tube feeds or other medications via tube, enteral route is preferred unless potassium level is less than or equal to 2.9 mmol/L. If patient has high volume output (diarrhea, ileostomy, colostomy, fistula, NG tube) greater than 1L in last 24 hours or has no enteral access, utilize IV replacement. If potassium level 3.8-3.9 mmol/L administer 20 mEq; If potassium level 3.6-3.7 mmol/L administer 40 mEq; If potassium level 3.4-3.5 mmol/L administer 60 mEq; If potassium level 3-3.3 mmol/L administer 80 mEq. If potassium level less than or equal to 2.9 mmol/L use IV replacement. 1432 ([facility] Hold - Provider: Automatic Transfer - Reason: Transfer to a Procedural area)163 ([facility] Unhold - Provider: Automatic Transfer) Potassium chloride 10 mEq in sterile water 100 ml premix IVPB(Linked Group 4) 10 mEq, Intravenous, Administer over 60 Minutes, ADMINISTER DIRECTED, Starting on Fri04/30/24 at 1758, Until Fri05/09/24 at 1614, Other, Surgery Non-ICU Electrolyte Replacement Protocol, EXCLUDE patients less than 50kg, Scr greater than or equal to 2, CrCl less than 30ml/min, ESRD, renal replacement therapy, or history of renal transplant. If patient has a diet, is receiving tube feeds or other medications via tube, enteral route is preferred unless potassium level is less than or equal to 2.9 mmol/L. If patient has high volume output (diarrhea, ileostomy, colostomy, fistula, NG tube) greater than 1L in last 24 hours or has no enteral access, utilize IV replacement. If potassium level 3.8-3.9 mmol/L administer 20 mEq; If potassium level 3.6-3.7 mmol/L administer 40 mEq; If potassium level 3.0-3.5 mmol/L administer 60 mEq; If potassium level less than or equal to 2.9 mmol/L: administer 80 mEq, Notify provider & repeat potassium level 8 hours after last potassium replacement dose administered. 1432 ([facility] Hold - Provider: Automatic Transfer - Reason: Transfer to a Procedural area)1639 ([facility] Unhold - Provider: Automatic Transfer) Prochlorperazine (COMPAZINE) injection 5 mg(Linked Group 5) 5 mg, Intravenous, EVERY 6 HOURS NEEDED, Starting on Fri04/30/24 at 1413, Until 05/09/24 at 1614, Refractory Nausea Vomiting, If unrelieved by Ondansetron. Administer IV if patient is unable to tolerate PO., Discharge Readmit 1432 ([facility] Hold - Provider: Automatic Transfer - Reason: Transfer to a Procedural area)1639 ([facility] Unhold - Provider: Automatic Transfer) Prochlorperazine (COMPAZINE) tablet 5 mg(Linked Group 5) 5 mg, Oral, EVERY 6 HOURS NEEDED, Starting on Fri04/30/24 at 1413, Until 05/09/24 at 1614, Refractory Nausea Vomiting, If unrelieved by Ondansetron., Discharge Readmit 1432 ([facility] Hold - Provider: Automatic Transfer - Reason: Transfer to a Procedural area)1639 ([facility] Unhold - Provider: Automatic Transfer) Sodium chloride 0.9% IV solution 250 mL Intravenous, at 20 mL/hr, NEEDED, Starting on Fri04/30/24 at 1413, Until 05/09/24 at 1614, Carrier Fluid - See Admin. Inst, 250mL 0.9NS to be used as carrier fluid for intermittent small volume or piggyback medication administration as needed. Infusion rate of the carrier fluid should be set at 20 mL/hr unless the rate as the intermittent medication is less than 20 mL/hr. For intermittent medications with a rate less than 20 mL/hr set the carrier fluid at that rate of the intermittent or piggy back medication., Discharge Readmit 1432 ([facility] Hold - Provider: Automatic Transfer - Reason: Transfer to a Procedural area)1449 ($$New Bag$$ - Provider: Christy French RN)1639 ([facility] Unhold - Provider: Automatic Transfer) sodium phosphate 15 mmol in Sodium chloride 0.9%, with overfill 115 mL (total volume) IVPB(Linked Group 6) 15 mmol, Intravenous, Administer over 2 Hours, ADMINISTER DIRECTED, Starting on Fri04/30/24 at 1758, Until 05/09/24 at 1614, Other, Surgery Non-ICU Electrolyte Replacement Protocol, EXCLUDE patients less than 50kg, Scr greater than or equal to 2, CrCl less than 30ml/min, ESRD, renal replacement therapy, or history of renal transplant. If patient has a diet, is receiving tube feeds or is receiving other medications via tube, enteral route is preferred unless phosphate level is less than or equal to 1.8 mg/dL. If patient has high volume output (diarrhea, ileostomy, colostomy, fistula, NG tube) greater than 1L in last 24 hours or has no enteral access, utilize IV replacement. If phosphate level is 1.9-2.6 mg/dL and unable to take enteral dose due to high volume output administer 15 mmol. 1432 ([facility] Hold - Provider: Automatic Transfer - Reason: Transfer to a Procedural area)163 ([facility] Unhold - Provider: Automatic Transfer) sodium phosphate 30 mmol in Sodium chloride 0.9%, with overfill 285 mL (total volume) IVPB(Linked Group 6) 30 mmol, Intravenous, Administer over 4 Hours, ADMINISTER DIRECTED, Starting on Fri04/30/24 at 1758, Until 05/09/24 at 1614, Other, Surgery Non-ICU Electrolyte Replacement Protocol, EXCLUDE patients less than 50kg, Scr greater than or equal to 2, CrCl less than 30ml/min, ESRD, renal replacement therapy, or history of renal transplant. If patient has a diet, is receiving tube feeds or is receiving other medications via tube, enteral route is preferred unless phosphate level is less than or equal to 1.8 mg/dL. If patient has high volume output (diarrhea, ileostomy, colostomy, fistula, NG tube) greater than 1L in last 24 hours or has no enteral access, utilize IV replacement. If phosphate level less than or equal to 1.8 mg/dL administer 30mmol, Notify physician, and repeat phosphate level 8 hours after last phosphate replacement dose administered. 1432 ([facility] Hold - Provider: Automatic Transfer - Reason: Transfer to a Procedural area)163 ([facility] Unhold - Provider: Automatic Transfer) Sodium-potassium phosphate (K-PHOS NEUTRAL) tablet 500-1,000 mg(Linked Group 6) 500-1,000 mg, Oral, ADMINISTER DIRECTED, Starting on Fri04/30/24 at 1758, Until 05/09/24 at 1614, Other, Surgery Non-ICU Electrolyte Replacement Protocol, EXCLUDE patients less than 50kg, Scr greater than or equal to 2, CrCl less than 30ml/min, ESRD, renal replacement therapy, or history of renal transplant. If patient has a diet, is receiving tube feeds or is receiving other medications via tube, enteral route is preferred unless phosphate level is less than or equal to 1.8 mg/dL. If patient has high volume output (diarrhea, ileostomy, colostomy, fistula, NG tube) greater than 1L in last 24 hours or has no enteral access, utilize IV replacement. If phosphate level is 2.1-2.6 mg/dL administer 500 mg; If phosphate level is 1.9-2 mg/dL administer 1000 mg; If phosphate level is less than or equal to 1.8 mg/dL utilize IV replacement. 1432 ([facility] Hold - Provider: Automatic Transfer - Reason: Transfer to a Procedural area)1639 ([facility] Unhold - Provider: Automatic Transfer) Sodium-potassium phosphate (K-PHOS NEUTRAL) tablet 500-1,000 mg(Linked Group 6) 500-1,000 mg, Per NG tube, ADMINISTER DIRECTED, Starting on Fri04/30/24 at 1758, Until 05/09/24 at 1614, Other, Surgery Non-ICU Electrolyte Replacement Protocol, EXCLUDE patients less than 50kg, Scr greater than or equal to 2, CrCl less than 30ml/min, ESRD, renal replacement therapy, or history of renal transplant. If patient has a diet, is receiving tube feeds or is receiving other medications via tube, enteral route is preferred unless phosphate level is less than or equal to 1.8 mg/dL. If patient has high volume output (diarrhea, ileostomy, colostomy, fistula, NG tube) greater than 1L in last 24 hours or has no enteral access, utilize IV replacement. If phosphate level is 2.1-2.6 mg/dL administer 500 mg; If phosphate level is 1.9-2 mg/dL administer 1000 mg; If phosphate level is less than or equal to 1.8 mg/dL utilize IV replacement. 1432 ([facility] Hold - Provider: Automatic Transfer - Reason: Transfer to a Procedural area)1639 ([facility] Unhold - Provider: Automatic Transfer) Linked Groups Order Group 1: magnesium oxide (MAG-OX) tablet 400-800 mgJump to med 400-800 mg, Oral, ADMINISTER DIRECTED, Starting on Fri04/30/24 at 1758, Until 05/09/24 at 1614, See admin instructions, Other, Surgery Non-ICU Electrolyte Replacement Protocol, EXCLUDE patients less than 50kg, Scr greater than or equal to 2, CrCl less than 30ml/min, ESRD, renal replacement therapy, or history of renal transplant. If patient has a diet, is receiving tube feeds or is receiving other medications via tube, enteral route is preferred unless magnesium level is less than or equal to 1.3 mg/dL. If patient has high volume output (diarrhea, ileostomy, colostomy, fistula, NG tube) greater than 1L in last 24h or has no enteral access, utilize IV replacement. If magnesium level is 1.7-1.9 mg/dL administer 400mg ; If magnesium level is 1.4-1.6 mg/dL administer 800 mg; If magnesium level less than or equal to 1.3 mg/dL use IV replacement. Or magnesium oxide (MAG-OX) tablet 400-800 mgJump to med 400-800 mg, Per NG tube, ADMINISTER DIRECTED, Starting on Fri04/30/24 at 1758, Until 05/09/24 at 1614, See admin instructions, Other, Surgery Non-ICU Electrolyte Replacement Protocol, EXCLUDE patients less than 50kg, Scr greater than or equal to 2, CrCl less than 30ml/min, ESRD, renal replacement therapy, or history of renal transplant. If patient has a diet, is receiving tube feeds or is receiving other medications via tube, enteral route is preferred unless magnesium level is less than or equal to 1.3 mg/dL. If patient has high volume output (diarrhea, ileostomy, colostomy, fistula, NG tube) greater than 1L in last 24h or has no enteral access, utilize IV replacement. If magnesium level is 1.7-1.9 mg/dL administer 400mg; If magnesium level is 1.4-1.6 mg/dL administer 800 mg; If magnesium level less than or equal to 1.3 mg/dL use IV replacement. Or Magnesium sulfate 1 g in dextrose 5% 100 mL premix IVPBJump to med 1 g, Intravenous, Administer over 60 Minutes, ADMINISTER DIRECTED, Starting on Fri04/30/24 at 1758, Until 05/09/24 at 1614, Other, Surgery Non-ICU Electrolyte Replacement Protocol, EXCLUDE patients less than 50kg, Scr greater than or equal to 2, CrCl less than 30ml/min, ESRD, renal replacement therapy, or history of renal transplant. If patient has a diet, is receiving tube feeds or is receiving other medications via tube, enteral route is preferred unless magnesium level is less than or equal to 1.3 mg/dL. If patient has high volume output (diarrhea, ileostomy, colostomy, fistula, NG tube) greater than 1L in last 24h or has no enteral access, utilize IV replacement. If magnesium level is 1.4-1.9 mg/dL and unable to take enteral dose due to high volume output; administer 2g. Or Magnesium sulfate 4 g in sterile water 50 ml premix IVPBJump to med 4 g, Intravenous, Administer over 4 Hours, ADMINISTER DIRECTED, Starting on Fri04/30/24 at 1758, Until Fri05/09/24 at 1614, Other, Surgery Non-ICU Electrolyte Replacement Protocol, EXCLUDE patients less than 50kg, Scr greater than or equal to 2, CrCl less than 30ml/min, ESRD, renal replacement therapy, or history of renal transplant. If patient has a diet, is receiving tube feeds or is receiving other medications via tube, enteral route is preferred unless magnesium level is less than or equal to 1.3 mg/dL. If patient has high volume output (diarrhea, ileostomy, colostomy, fistula, NG tube) greater than 1L in last 24h or has no enteral access, utilize IV replacement. If magnesium level less than or equal to 1.3 mg/dL administer 4g, Notify physician, and repeat magnesium level 8 hours after magnesium replacement dose administered. Group 2: Ondansetron (ZOFRAN) tablet 4 mgJump to med 4 mg, Oral, EVERY 6 HOURS NEEDED, Starting on Fri04/30/24 at 1413, Until Fri05/09/24 at 1614, Nausea / Vomiting, 1st Line Nausea / Vomiting, Discharge Readmit Or Ondansetron 4mg/2ml (ZOFRAN) injection 4 mgJump to med 4 mg, Intravenous, EVERY 6 HOURS NEEDED, Starting on Fri04/30/24 at 1413, Until Fri05/09/24 at 1614, Nausea / Vomiting, 1st Line Nausea / Vomiting, If patient is unable to tolerate PO., Discharge Readmit Group 3: oxyCODONE (ROXICODONE) tablet 5 mgJump to med 5 mg, Oral, EVERY 4 HOURS NEEDED, Starting on Fri04/30/24 at 1413, Until 05/09/24 at 1614, Moderate Pain, Severe Pain, Use as initial dose. Higher dose may be administered if lower dose was previously documented as ineffective and did not result in adverse effects (RR<10, decrease in level of consciousness)., Discharge Readmit Or oxyCODONE HCl (ROXICODONE) tablet 10 mgJump to med 10 mg, Oral, EVERY 4 HOURS NEEDED, Starting on Fri04/30/24 at 1413, Until Fri05/09/24 at 1614, Moderate Pain, Severe Pain, Higher dose may be administered if lower dose was previously documented as ineffective and did not result in adverse effects (RR<10, decrease in level of consciousness). Decrease back to lower dose if patient has adverse effects, or no PRN used in previous 12 hours., Discharge Readmit Group 4: Potassium chloride (K-DUR) tablet ER 20-80 mEqJump to med 20-80 mEq, Oral, ADMINISTER DIRECTED, Starting on Fri04/30/24 at 1758, Until Fri05/09/24 at 1614, See admin instructions, Surgery Non-ICU Electrolyte Replacement Protocol, -Swallow tablets whole; do not crush, chew, or suck on tablet. Tablet may also be broken in half and each half swallowed separately.- EXCLUDE patients less than 50kg, Scr greater than or equal to 2, CrCl less than 30 mL/min, ESRD, renal replacement therapy, or history of renal transplant. If patient has a diet, is receiving tube feeds or other medications via tube, enteral route is preferred unless potassium level is less than or equal to 2.9 mmol/L. If patient has high volume output (diarrhea, ileostomy, colostomy, fistula, NG tube) greater than 1L in last 24 hours or has no enteral access, utilize IV replacement. If potassium level 3.8- 3.9 mmol/L administer 20 mEq; If potassium level 3.6-3.7 mmol/L administer 40 mEq; If potassium level 3.4-3.5 mmol/L administer 60 mEq; If potassium level 3-3.3 mmol/L administer 80 mEq. If potassium level less than or equal to 2.9 mmol/L use IV replacement. Or Potassium Bicarb-Citric Acid (Effer-K) 20 MEQ effervescent tablets for oral solution 20-80 mEqJump to med 20-80 mEq, Per NG tube, ADMINISTER DIRECTED, Starting on Fri04/30/24 at 1758, Until 05/09/24 at 1614, Other, Surgery Non-ICU Electrolyte Replacement Protocol, -Do not swallow whole. Dissolve completely in 3-4 ounces of water or cold juice before drinking. If administering via J tube, dilute in sterile water, wait for tablet to stop fizzing, swirl the solution and draw into a syringe suitable for attaching to the tube. After administration, flush tube with 15-30 mL water. EXCLUDE patients less than 50kg, Scr greater than or equal to 2, CrCl less than 30ml/min, ESRD, renal replacement therapy, or history of renal transplant. If patient has a diet, is receiving tube feeds or other medications via tube, enteral route is preferred unless potassium level is less than or equal to 2.9 mmol/L. If patient has high volume output (diarrhea, ileostomy, colostomy, fistula, NG tube) greater than 1L in last 24 hours or has no enteral access, utilize IV replacement. If potassium level 3.8-3.9 mmol/L administer 20 mEq; If potassium level 3.6-3.7 mmol/L administer 40 mEq; If potassium level 3.4-3.5 mmol/L administer 60 mEq; If potassium level 3- 3.3 mmol/L administer 80 mEq. If potassium level less than or equal to 2.9 mmol/L use IV replacement. Or Potassium chloride 10 mEq in sterile water 100 ml premix IVPBJump to med 10 mEq, Intravenous, Administer over 60 Minutes, ADMINISTER DIRECTED, Starting on Fri04/30/24 at 1758, Until Viola 05/09/24 at 1614, Other, Surgery Non-ICU Electrolyte Replacement Protocol, EXCLUDE patients less than 50kg, Scr greater than or equal to 2, CrCl less than 30ml/min, ESRD, renal replacement therapy, or history of renal transplant. If patient has a diet, is receiving tube feeds or other medications via tube, enteral route is preferred unless potassium level is less than or equal to 2.9 mmol/L. If patient has high volume output (diarrhea, ileostomy, colostomy, fistula, NG tube) greater than 1L in last 24 hours or has no enteral access, utilize IV replacement. If potassium level 3.8-3.9 mmol/L administer 20 mEq; If potassium level 3.6-3.7 mmol/L administer 40 mEq; If potassium level 3.0-3.5 mmol/L administer 60 mEq; If potassium level less than or equal to 2.9 mmol/L: administer 80 mEq, Notify provider & repeat potassium level 8 hours after last potassium replacement dose administered. Group 5: Prochlorperazine (COMPAZINE) tablet 5 mgJump to med 5 mg, Oral, EVERY 6 HOURS NEEDED, Starting on Fri04/30/24 at 1413, Until Fri05/09/24 at 1614, Refractory Nausea Vomiting, If unrelieved by Ondansetron., Discharge Readmit Or Prochlorperazine (COMPAZINE) injection 5 mgJump to med 5 mg, Intravenous, EVERY 6 HOURS NEEDED, Starting on Fri04/30/24 at 1413, Until Fri05/09/24 at 1614, Refractory Nausea Vomiting, If unrelieved by Ondansetron. Administer IV if patient is unable to tolerate PO., Discharge Readmit Group 6: Sodium-potassium phosphate (K-PHOS NEUTRAL) tablet 500-1,000 mgJump to med 500-1,000 mg, Oral, ADMINISTER DIRECTED, Starting on Fri04/30/24 at 1758, Until Fri05/09/24 at 1614, Other, Surgery Non-ICU Electrolyte Replacement Protocol, EXCLUDE patients less than 50kg, Scr greater than or equal to 2, CrCl less than 30ml/min, ESRD, renal replacement therapy, or history of renal transplant. If patient has a diet, is receiving tube feeds or is receiving other medications via tube, enteral route is preferred unless phosphate level is less than or equal to 1.8 mg/dL. If patient has high volume output (diarrhea, ileostomy, colostomy, fistula, NG tube) greater than 1L in last 24 hours or has no enteral access, utilize IV replacement. If phosphate level is 2.1-2.6 mg/dL administer 500 mg; If phosphate level is 1.9-2 mg/dL administer 1000 mg; If phosphate level is less than or equal to 1.8 mg/dL utilize IV replacement. Or Sodium-potassium phosphate (K-PHOS NEUTRAL) tablet 500-1,000 mgJump to med 500-1,000 mg, Per NG tube, ADMINISTER DIRECTED, Starting on Fri04/30/24 at 1758, Until Fri05/09/24 at 1614, Other, Surgery Non-ICU Electrolyte Replacement Protocol, EXCLUDE patients less than 50kg, Scr greater than or equal to 2, CrCl less than 30ml/min, ESRD, renal replacement therapy, or history of renal transplant. If patient has a diet, is receiving tube feeds or is receiving other medications via tube, enteral route is preferred unless phosphate level is less than or equal to 1.8 mg/dL. If patient has high volume output (diarrhea, ileostomy, colostomy, fistula, NG tube) greater than 1L in last 24 hours or has no enteral access, utilize IV replacement. If phosphate level is 2.1-2.6 mg/dL administer 500 mg; If phosphate level is 1.9-2 mg/dL administer 1000 mg; If phosphate level is less than or equal to 1.8 mg/dL utilize IV replacement. Or sodium phosphate 15 mmol in Sodium chloride 0.9%, with overfill 115 mL (total volume) IVPBJump to med 15 mmol, Intravenous, Administer over 2 Hours, ADMINISTER DIRECTED, Starting on Fri04/30/24 at 1758, Until Viola 05/09/24 at 1614, Other, Surgery Non-ICU Electrolyte Replacement Protocol, EXCLUDE patients less than 50kg, Scr greater than or equal to 2, CrCl less than 30ml/min, ESRD, renal replacement therapy, or history of renal transplant. If patient has a diet, is receiving tube feeds or is receiving other medications via tube, enteral route is preferred unless phosphate level is less than or equal to 1.8 mg/dL. If patient has high volume output (diarrhea, ileostomy, colostomy, fistula, NG tube) greater than 1L in last 24 hours or has no enteral access, utilize IV replacement. If phosphate level is 1.9-2.6 mg/dL and unable to take enteral dose due to high volume output administer 15 mmol. Or sodium phosphate 30 mmol in Sodium chloride 0.9%, with overfill 285 mL (total volume) IVPBJump to med 30 mmol, Intravenous, Administer over 4 Hours, ADMINISTER DIRECTED, Starting on Fri04/30/24 at 1758, Until 05/09/24 at 1614, Other, Surgery Non-ICU Electrolyte Replacement Protocol, EXCLUDE patients less than 50kg, Scr greater than or equal to 2, CrCl less than 30ml/min, ESRD, renal replacement therapy, or history of renal transplant. If patient has a diet, is receiving tube feeds or is receiving other medications via tube, enteral route is preferred unless phosphate level is less than or equal to 1.8 mg/dL. If patient has high volume output (diarrhea, ileostomy, colostomy, fistula, NG tube) greater than 1L in last 24 hours or has no enteral access, utilize IV replacement. If phosphate level less than or equal to 1.8 mg/dL administer 30mmol, Notify physician, and repeat phosphate level 8 hours after last phosphate replacement dose administered. Scheduled Medication Order 06/23/2024 06/24/2024 06/25/2024 Acetaminophen (TYLENOL) tablet 975 mg (COMPLETED) 975 mg, Oral, ONCE, 1 dose, On Fri06/25/24 at 1045, Pre-op/Pre-Proc 1035 (Given - Provid er: Sherry Colvin RN) Continuous Medication Order 06/23/2024 06/24/2024 06/25/2024 Lactated ringers IV solution Intravenous, at 50 mL/hr, CONTINUOUS, Starting on Fri06/25/24 at 1045, Until Fri06/25/24 at 1450, Pre-op/Pre-Proc 1025 ($$New Bag$$ - Provider: Sherry Colvin RN)1053 (Paused - Provider: Allen Dudley MD - Comment: Switch to gravity)1054 (Restarted - Provider: Allen Dudley MD)1203 (Anesthesia Volume Adjustment - Provider: Louie Cardenas APRN-MOLD HOLDER)1206 (Restarted - Provider: Rehan Guardado RN)1249 (Stopped - Provider: Rehan Guardado RN) Scheduled Medication Order 10/16/2024 10/17/2024 10/18/2024 Acetaminophen (TYLENOL) oral solution 975 mg 975 mg, Oral, 3 times daily, First dose on Fri10/12/24 at 1615, Until Discontinued, Maximum dose of acetaminophen is 4000 mg from all sources in 24 hours. 1015 (Not Given - Provider: Flory Pennington RN - Reason: Patient/family refused)1606 (Not Given - Provider: Flory Pennington RN - Reason: Patient/family refused)2000 (Not Given - Provider: Megan Lara RN - Reason: Patient/family refused) 0844 (Not Given - Provider: Cristy Suarez RN - Reason: Patient/family refused)1448 (Not Given - Provider: Cristy Suarez RN - Reason: Patient/family refused)2028 (Not Given - Provider: Yesy Barrios RN - Reason: Patient/family refused) 0759 (Not Given - Provider: Brittani Soria RN - Reason: Patient/family refused) Amoxicillin-clavulanate (AUGMENTIN) 875-125 MG per tablet 1 tablet 1 tablet, Oral, EVERY 12 HOURS, First dose on Fri10/16/24 at 0900, Until Discontinued 1016 (Given - Provider: Flory Pennington, RN)2006 (Given - Provider: Megan Lara RN) 0853 (Given - Provider: Cristy Suarez RN)2031 (Given - Provider: Yesy Barrios, FERNANDO) 0808 (Given - Provider: Brittani Soria, FERNANDO) Heparin injection 5,000 Units 5,000 Units, Subcutaneous, EVERY 12 HOURS, First dose on Fri10/12/24 at 0900, Until Discontinued, DO NOT ADMINISTER ON DAY OF SURGERY/INVASIVE PROCEDURE UNLESS OTHERWISE DIRECTED. 1016 (Given - Provider: Flory Pennington, RN)2006 (Given - Provider: Megan Lara RN) 0853 (Given - Provider: Cristy Suarez RN)2028 (Given - Provider: Yesy Barrios, FERNANDO) 0808 (Given - Provider: Brittani Soria, FERNANDO) Magnesium sulfate 1 g in dextrose 5% 100 mL premix IVPB (COMPLETED) 1 g, Intravenous, Administer over 60 Minutes, EVERY 1 HOUR, 2 doses, First dose on Fri10/16/24 at 0600, Last dose on Fri10/16/24 at 0700 0535 ($$New Bag$$ - Provider: Yvette Abdi, RN)0628 (Rate/Dose Verify - Provider: Yvette Abdi, RN)0636 ($$New Bag$$ - Provider: Yvette Abdi, RN) Pantoprazole (PROTONIX) injection 40 mg 40 mg, Intravenous, EVERY 12 HOURS, First dose on Fri10/13/24 at 1100, Until Discontinued, Dilute each 40 mg vial with 10 mL of NS. All bolus doses, whether 40 mg or 80 mg, should be administered over at least two minutes., Indications: Inpt Stress Ulcer Prophylaxis 1016 (Given - Provider: Flory Pennington, RN)2006 (Given - Provider: Megan Lara RN) 0853 (Given - Provider: Cristy Suarez, RN)2028 (Given - Provider: Yesy Barrios, RN) 0808 (Given - Provider: Brittani Soria, RN) Potassium phosphates 30 mmol in Sodium chloride 0.9%, with overfill 285 mL (total volume) IVPB (COMPLETED) 30 mmol, Intravenous, Administer over 4 Hours, ONCE, 1 dose, On 10/16/24 at 0600, Central line required. 1012 ($$New Bag$$ - Provider: Skylar Jackson RN)1401 (Stopped - Provider: Megan Lara RN) Continuous Medication Order 10/16/2024 10/17/2024 10/18/2024 Lactated ringers IV solution (CANCELED) Intravenous, at 50 mL/hr, CONTINUOUS, Starting on Fri10/12/24 at 0030, Until 10/17/24 at 0551 0131 ($$New Bag$$ - Provider: Sherin Norman RN)0334 (Rate/Dose Verify - Provider: Yvette Abdi RN)0628 (Rate/Dose Verify - Provider: Yvette Abdi RN)1001 ($$New Bag$$ - Provider: Skylar Jackson, FERNANDO)1603 (Paused - Provider: Megan Lara RN)1605 (Restarted - Provider: Megan Lara RN)1750 ($$New Bag$$ - Provider: Skylar Jackson RN)2019 (Rate/Dose Verify - Provider: Megan Lara RN) 0117 ($$New Bag$$ - Provider: Yesy Barrios, RN)0128 (Rate/Dose Verify - Provider: Yesy Barrios, FERNANDO)0549 (Canceled Entry - Provider: Julito Cage MD - Comment: Automatically canceled at discontinue of medication order) PRN Medication Order 10/16/2024 10/17/2024 10/18/2024 Lidocaine 2 % injection 0-400 mg 0-400 mg (0-20 mL), Infiltration, ADMINISTER DIRECTED, Starting on Fri10/12/24 at 1819, Until Fri10/18/24 at 1454, Other, Numbing agent for procedure, Subcutaneous injection as numbing agent. For administration intra-procedure by physician. Recorded MAR dose is the cumulative amount given during procedure., Intra-op/Intra-Proc Melatonin tablet 6 mg 6 mg, Oral, DAILY AT BEDTIME NEEDED, Starting on Fri10/12/24 at 0017, Until Fri10/18/24 at 1454, Insomnia Ondansetron (ZOFRAN) tablet 4 mg(Linked Group 1) 4 mg, Oral, EVERY 6 HOURS NEEDED, Starting on Fri10/12/24 at 0013, Until Fri10/18/24 at 1454, Nausea / Vomiting, 1st Line Nausea / Vomiting Ondansetron 4mg/2ml (ZOFRAN) injection 4 mg(Linked Group 1) 4 mg, Intravenous, EVERY 6 HOURS NEEDED, Starting on Fri10/12/24 at 0013, Until Fri10/18/24 at 1454, Nausea / Vomiting, 1st Line Nausea / Vomiting, If patient is unable to tolerate PO. oxyCODONE (ROXICODONE) oral solution 10 mg(Linked Group 2) 10 mg, Per NG tube, EVERY 4 HOURS NEEDED, Starting on Fri10/12/24 at 1609, Until Fri10/18/24 at 1454, Severe Pain oxyCODONE (ROXICODONE) oral solution 5 mg(Linked Group 2) 5 mg, Per NG tube, EVERY 4 HOURS NEEDED, Starting on Fri10/12/24 at 1609, Until Fri10/18/24 at 1454, Moderate Pain Phenol (CHLORASEPTIC) 1.4 % oral spray 2 spray 2 spray, Mouth/Throat, NEEDED, Starting on Fri10/12/24 at 0857, Until Fri10/18/24 at 1454, Sore Throat, Other, pain from NG, Patient may self-administer. Prochlorperazine (COMPAZINE) injection 5 mg(Linked Group 3) 5 mg, Intravenous, EVERY 6 HOURS NEEDED, Starting on Fri10/12/24 at 0013, Until Fri10/18/24 at 1454, Refractory Nausea Vomiting, If unrelieved by Ondansetron. Administer IV if patient is unable to tolerate PO. Prochlorperazine (COMPAZINE) tablet 5 mg(Linked Group 3) 5 mg, Oral, EVERY 6 HOURS NEEDED, Starting on Fri10/12/24 at 0013, Until Fri10/18/24 at 1454, Refractory Nausea Vomiting, If unrelieved by Ondansetron. Sodium chloride 0.9% IV solution 250 mL Intravenous, at 20 mL/hr, NEEDED, Starting on Fri10/12/24 at 0013, Until Fri10/18/24 at 1454, Carrier Fluid - See Admin. Inst, 250mL 0.9NS to be used as carrier fluid for intermittent small volume or piggyback medication administration as needed. Infusion rate of the carrier fluid should be set at 20 mL/hr unless the rate as the intermittent medication is less than 20 mL/hr. For intermittent medications with a rate less than 20 mL/hr set the carrier fluid at that rate of the intermittent or piggy back medication. Linked Groups Order Group 1: Ondansetron (ZOFRAN) tablet 4 mgJump to med 4 mg, Oral, EVERY 6 HOURS NEEDED, Starting on Fri10/12/24 at 0013, Until Fri10/18/24 at 1454, Nausea / Vomiting, 1st Line Nausea / Vomiting Or Ondansetron 4mg/2ml (ZOFRAN) injection 4 mgJump to med 4 mg, Intravenous, EVERY 6 HOURS NEEDED, Starting on Fri10/12/24 at 0013, Until Fri10/18/24 at 1454, Nausea / Vomiting, 1st Line Nausea / Vomiting, If patient is unable to tolerate PO. Group 2: oxyCODONE (ROXICODONE) oral solution 5 mgJump to med 5 mg, Per NG tube, EVERY 4 HOURS NEEDED, Starting on Fri10/12/24 at 1609, Until Fri10/18/24 at 1454, Moderate Pain Or oxyCODONE (ROXICODONE) oral solution 10 mgJump to med 10 mg, Per NG tube, EVERY 4 HOURS NEEDED, Starting on Fri10/12/24 at 1609, Until Fri10/18/24 at 1454, Severe Pain Group 3: Prochlorperazine (COMPAZINE) tablet 5 mgJump to med 5 mg, Oral, EVERY 6 HOURS NEEDED, Starting on Fri10/12/24 at 0013, Until Fri10/18/24 at 1454, Refractory Nausea Vomiting, If unrelieved by Ondansetron. Or Prochlorperazine (COMPAZINE) injection 5 mgJump to med 5 mg, Intravenous, EVERY 6 HOURS NEEDED, Starting on Fri10/12/24 at 0013, Until Fri10/18/24 at 1454, Refractory Nausea Vomiting, If unrelieved by Ondansetron. Administer IV if patient is unable to tolerate PO. Care Teams (unrecognized sec tion and content) Community Manager Relationship Specialty Start Date End Date Self, Self PCP - General Other 04/29/24 Community Manager Relationship Specialty Start Date End Date Self, Self PCP - General Other 04/29/24 Community Manager Relationship Specialty Start Date End Date Self, Self PCP - General Other 04/29/24 Community Manager Relationship Specialty Start Date End Date Self, Self PCP - General Other 04/29/24 Community Manager Relationship Specialty Start Date End Date Self, Self PCP - General Other 04/29/24 Community Manager Relationship Specialty Start Date End Date Self, Self PCP - General Other 04/29/24 Community Manager Relationship Specialty Start Date End Date Self, Self PCP - General Other 04/29/24 Community Manager Relationship Specialty Start Date End Date Self, Self PCP - General Other 04/29/24 Community Manager Relationship Specialty Start Date End Date Self, Self PCP - General Other 04/29/24 Guy Ho MD [address] [place] [address] Oncologist Hematology 10/14/24 Ambrose Leija DO [address] [facility] [address] [phone] Radiation Oncologist Radiation Oncology 10/14/24 Laura Guerra, FERNANDO Registered Nurse 10/14/24 Community Manager Relationship Specialty Start Date End Date Self, Self PCP - General Other 04/29/24 Guy Ho MD [address] [place] [address] Oncologist Hematology 10/14/24 Ambrose Leija DO [address] [facility] [address] [place] [id number] Radiation Oncologist Radiation Oncology 10/14/24 Laura Guerra, RN Registered Nurse 10/14/24 Community Manager Relationship Specialty Start Date End Date Self, Self PCP - General Other 04/29/24 Guy Ho MD [address] [place] [address] Oncologist Hematology 10/14/24 Ambrose Leija DO [address] [facility] [address] [place] [address] Radiation Oncologist Radiation Oncology 10/14/24 Laura Guerra, FERNANDO Registered Nurse 10/14/24 Community Manager Relationship Specialty Start Date End Date Self, Self PCP - General Other 04/29/24 Guy Ho MD [address] [place], [place] [id number] Oncologist Hematology 10/14/24 Ambrose Leija DO [address] [facility] [address] [place] [address] Radiation Oncologist Radiation Oncology 10/14/24 Laura Guerra, RN Registered Nurse 10/14/24 Team Status: Active Member Role Status Dates No Primary Care Physician Primary Care Provider Active Team Status: Inactive Member Role Status Dates No Primary Care Physician Primary Care Provider Active Start: November 03, 2024 End: November 03, 2024 No Primary Care Physician Referring Provider Active Start: November 03, 2024 End: November 03, 2024 Rubi Mercedes RN ORTHOPEDIC, RN ORTHOPEDIC-C Attending Provider Active Start: November 03, 2024 End: November 03, 2024 Team Status: Inactive Member Role Status Dates No Primary Care Physician Primary Care Provider Active Start: November 05, 2024 End: November 05, 2024 No Primary Care Physician Referring Provider Active Start: November 05, 2024 End: November 05, 2024 Dr. Enrique Romero MD Attending Provider Active S tart: November 05, 2024 End: November 05, 2024 Team Status: Inactive Member Role Status Dates No Primary Care Physician Primary Care Provider Active Start: November 08, 2024 End: November 08, 2024 No Primary Care Physician Referring Provider Active Start: November 08, 2024 End: November 08, 2024 Dr. Guy oH MD Attending Provider Active S tart: November 08, 2024 End: November 08, 2024 Team Status: Inactive Member Role Status Dates No Primary Care Physician Primary Care Provider Active Start: November 08, 2024 End: November 08, 2024 Dr. Enrique Romero MD Attending Provider Active S tart: November 08, 2024 End: November 08, 2024 Dr. Enrique Romero MD Referring Provider Active S tart: November 08, 2024 End: November 08, 2024 Team Status: Active Member Role Status Dates No Primary Care Physician Primary Care Provider Active Start: November 08, 2024 Dr. Enrique Romero MD Attending Provider Active S tart: November 08, 2024 Dr. Enrique Romero MD Referring Provider Active S tart: November 08, 2024 Team Status: Inactive Member Role Status Dates No Primary Care Physician Primary Care Provider Active Start: November 10, 2024 End: November 10, 2024 Dr. Enrique Romero MD Attending Provider Active S tart: November 10, 2024 End: November 10, 2024 Dr. Enrique Romero MD Referring Provider Active S tart: November 10, 2024 End: November 10, 2024 Team Status: Active Member Role Status Dates No Primary Care Physician Primary Care Provider Active Start: November 10, 2024 Dr. Enrique Romero MD Attending Provider Active S tart: November 10, 2024 Team Status: Inactive Member Role Status Dates No Primary Care Physician Primary Care Provider Active Start: November 22, 2024 End: November 22, 2024 No Primary Care Physician Referring Provider Active Start: November 22, 2024 End: November 22, 2024 Rubi Mercedes NP, RN ORTHOPEDIC-C Attending Provider Active Start: November 22, 2024 End: November 22, 2024 Team Status: Inactive Member Role Status Dates No Primary Care Physician Primary Care Provider Active Start: December 06, 2024 End: December 06, 2024 No Primary Care Physician Referring Provider Active Start: December 06, 2024 End: December 06, 2024 Dr. Rangel Connor MD Attending Provider Active Start: December 06, 2024 End: December 06, 2024 Team Status: Inactive Member Role Status Dates No Primary Care Physician Primary Care Provider Active Start: December 20, 2024 End: December 20, 2024 No Primary Care Physician Referring Provider Active Start: December 20, 2024 End: December 20, 2024 Dr. Rangel Connor MD Attending Provider Active Start: December 20, 2024 End: December 20, 2024 Team Status: Inactive Member Role Status Dates No Primary Care Physician Primary Care Provider Active Start: December 28, 2024 End: December 28, 2024 No Primary Care Physician Referring Provider Active Start: December 28, 2024 End: December 28, 2024 Rubi Mercedes NP, RN ORTHOPEDIC-C Attending Provider Active Start: December 28, 2024 End: December 28, 2024 Team Status: Inactive Member Role Status Dates No Primary Care Physician Primary Care Provider Active Start: January 03, 2025 End: January 03, 2025 No Primary Care Physician Referring Provider Active Start: January 03, 2025 End: January 03, 2025 Dr. Guy Ho MD Attending Provider Active S tart: January 03, 2025 End: January 03, 2025 Team Status: Inactive Member Role Status Dates No Primary Care Physician Primary Care Provider Active Start: January 17, 2025 End: January 17, 2025 No Primary Care Physician Referring Provider Active Start: January 17, 2025 End: January 17, 2025 Dr. Guy Ho MD Attending Provider Active S tart: January 17, 2025 End: January 17, 2025 Team Status: Inactive Member Role Status Dates No Primary Care Physician Primary Care Provider Active Start: January 31, 2025 End: January 31, 2025 No Primary Care Physician Referring Provider Active Start: January 31, 2025 End: January 31, 2025 Dr. Guy Ho MD Attending Provider Active S tart: January 31, 2025 End: January 31, 2025 Team Status: Inactive Member Role Status Dates No Primary Care Physician Primary Care Provider Active Start: February 14, 2025 End: February 14, 2025 No Primary Care Physician Referring Provider Active Start: February 14, 2025 End: February 14, 2025 Dr. Guy Ho MD Attending Provider Active S tart: February 14, 2025 End: February 14, 2025 Team Status: Active Member Role Status Dates No Primary Care Physician Primary Care Provider Active Start: February 16, 2025 Dr. Guy Ho MD Attending Provider Active S tart: February 16, 2025 Dr. Guy Ho MD Referring Provider Active S tart: February 16, 2025 Dr. Ambrose Leija , Other Provider Active Sta rt: February 16, 2025 Team Status: Active Member Role Status Dates No Primary Care Physician Primary Care Provider Active Start: February 24, 2025 Dr. Gwyn Esquivel DO Emergency Provider Active Start : February 24, 2025 Dr. Handy Royal MD Admit Provider Active Sta rt: February 24, 2025 Dr. Handy Royal MD Attending Provider Active Start: February 24, 2025 Team Status: Active Member Role Status Dates Elly Bellamy NP, RN ORTHOPEDIC-C Primary Care Provider Acti ve Team Status: Inactive Member Role Status Dates Dr. Gwyn Esquivel DO Emergency Provider Active Start : February 24, 2025 End: March 01, 2025 Dr. Handy Royal MD Admit Provider Active Sta rt: February 24, 2025 End: March 01, 2025 Dr. Handy Royal MD Attending Provider Active Start: February 24, 2025 End: March 01, 2025 Dr. Kunal Chandler MD Other Provider Active St art: February 24, 2025 End: March 01, 2025 Elly Bellamy NP, RN ORTHOPEDIC-C Primary Care Provider Acti ve Start: February 24, 2025 End: March 01, 2025 Dr. Kunal Chandler MD Other Provider Active St art: February 24, 2025 Team Status: Active Member Role Status Dates No Primary Care Physician Primary Care Provider Active Start: February 24, 2025 Dr. Gwyn Esquivel DO Emergency Provider Active Start : February 24, 2025 Dr. Handy Royal MD Admit Provider Active Sta rt: February 24, 2025 Dr. Handy Royal MD Other Provider Active Sta rt: February 24, 2025 Dr. Kunal Chandler MD Attending Provider Active Start: February 24, 2025 Dr. Kunal Chandler MD Other Provider Active St art: February 24, 2025 Team Status: Active Member Role Status Dates No Primary Care Physician Primary Care Provider Active Start: February 25, 2025 Dr. Gwyn Esquivel DO Emergency Provider Active Start : February 25, 2025 Dr. Handy Royal MD Admit Provider Active Sta rt: February 25, 2025 Dr. Handy Royal MD Other Provider Active Sta rt: February 25, 2025 Dr. Kunal Chandler MD Attending Provider Active Start: February 25, 2025 Dr. Kunal Chandler MD Other Provider Active St art: February 25, 2025 Team Status: Active Member Role Status Dates No Primary Care Physician Primary Care Provider Active Start: February 25, 2025 Dr. Gwyn Esquivel DO Emergency Provider Active Start : February 25, 2025 Dr. Handy Royal MD Admit Provider Active Sta rt: February 25, 2025 Dr. Handy Royal MD Attending Provider Active Start: February 25, 2025 Dr. Handy Royal MD Other Provider Active Sta rt: February 25, 2025 Dr. Kunal Chandler MD Other Provider Active St art: February 25, 2025 Team Status: Active Member Role Status Dates No Primary Care Physician Primary Care Provider Active Start: February 26, 2025 Dr. Gwyn Esquivel DO Emergency Provider Active Start : February 26, 2025 Dr. Handy Royal MD Admit Provider Active Sta rt: February 26, 2025 Dr. Handy Royal MD Other Provider Active Sta rt: February 26, 2025 Dr. Kunal Chandler MD Other Provider Active St art: February 26, 2025 Dr. Salena Paredes MD Attending Provider Active Start: February 26, 2025 Team Status: Active Member Role Status Dates No Primary Care Physician Primary Care Provider Active Start: February 26, 2025 Dr. Gwyn Esquivel DO Emergency Provider Active Start : February 26, 2025 Dr. Handy Royal MD Admit Provider Active Sta rt: February 26, 2025 Dr. Handy Royal MD Attending Provider Active Start: February 26, 2025 Dr. Handy Royal MD Other Provider Active Sta rt: February 26, 2025 Dr. Kunal Chandler MD Other Provider Active St art: February 26, 2025 Team Status: Active Member Role Status Dates Dr. Gwyn Esquivel DO Emergency Provider Active Start : February 27, 2025 Dr. Handy Royal MD Admit Provider Active Sta rt: February 27, 2025 Dr. Handy Royal MD Other Provider Active Sta rt: February 27, 2025 Dr. Kunal Chandler MD Other Provider Active St art: February 27, 2025 Elly Bellamy NP, RN ORTHOPEDIC-C Primary Care Provider Acti ve Start: February 27, 2025 Dr. Salena Paredes MD Attending Provider Active Start: February 27, 2025 Team Status: Active Member Role Status Dates Dr. Gwyn Esquivel DO Emergency Provider Active Start : February 27, 2025 Dr. Handy Royal MD Admit Provider Active Sta rt: February 27, 2025 Dr. Handy Royal MD Attending Provider Active Start: February 27, 2025 Dr. Handy Royal MD Other Provider Active Sta rt: February 27, 2025 Dr. Kunal Chandler MD Other Provider Active St art: February 27, 2025 Elly Bellamy NP, RN ORTHOPEDIC-C Primary Care Provider Acti ve Start: February 27, 2025 Team Status: Active Member Role Status Dates Dr. Gwyn Esquivel DO Emergency Provider Active Start : February 28, 2025 Dr. Handy Royal MD Admit Provider Active Sta rt: February 28, 2025 Dr. Handy Royal MD Other Provider Active Sta rt: February 28, 2025 Dr. Kunal Chandler MD Other Provider Active St art: February 28, 2025 Elly Bellamy NP, RN ORTHOPEDIC-C Primary Care Provider Acti ve Start: February 28, 2025 SEBASTIÁN Johnson-C Attending Provider Active Start: February 28, 2025 Team Status: Active Member Role Status Dates Dr. Gwyn Esquivel DO Emergency Provider Active Start : February 28, 2025 Dr. Handy Royal MD Admit Provider Active Sta rt: February 28, 2025 Dr. Handy Royal MD Attending Provider Active Start: February 28, 2025 Dr. Handy Royal MD Other Provider Active Sta rt: February 28, 2025 Dr. Kunal Chandler MD Other Provider Active St art: February 28, 2025 Elly Bellamy NP, NP-Claire Primary Care Provider Acti ve Start: February 28, 2025 Team Status: Active Member Role Status Dates Dr. Gwyn Esquivel DO Emergency Provider Active Start : March 01, 2025 Dr. Handy Royal MD Admit Provider Active Sta rt: March 01, 2025 Dr. Handy Royal MD Other Provider Active Sta rt: March 01, 2025 Dr. Kunal Chandler MD Other Provider Active St art: March 01, 2025 Elly Bellamy NP, NP-Claire Primary Care Provider Acti ve Start: March 01, 2025 Rachael LOWERY PA-C Attending Provider Active Start: March 01, 2025 Team Status: Active Member Role Status Dates Dr. Gwyn Esquivel DO Emergency Provider Active Start : March 01, 2025 Dr. Handy Royal MD Admit Provider Active Sta rt: March 01, 2025 Dr. Handy Royal MD Attending Provider Active Start: March 01, 2025 Dr. Handy Royal MD Other Provider Active Sta rt: March 01, 2025 Dr. Kunal Chandler MD Other Provider Active St art: March 01, 2025 Elly Bellamy NP, NP-Claire Primary Care Provider Acti ve Start: March 01, 2025 Goals (unrecognized section and content) Goals may be documented in a n alternate section FOR RECORDS PERTAINING TO PATIENTS WHO ARE OR HAVE BEEN ENROLLED IN A CHEMICAL DEPENDENCY/SUBSTANCEABUSE PROGRAM, SOME INFORMATION MAY BE OMITTED. This clinical summary was aggregated from multiple sources. Caution should be exercised in using it in the provision of clinical care. This summary normalizes information from multiple sources, and as a consequence, information in this document may materially change the coding, format and clinical context of patient data. In addition, data may be omitted in some cases. CLINICAL DECISIONS SHOULD BE BASED ON THE PRIMARY CLINICAL RECORDS. [employer] provides no warranty or guarantee of the accuracy or completeness of information in this document.
[2025-03-24 23:00] VITALS: BP 124/74; PULSE 64; RESP 15; O2SAT 98
[2025-03-24 23:10] LABS: Lactic Acid < 1.0 mmol/L (0.0-2.0)
[2025-03-24 23:12] LABS: Procalcitonin 2.54 ng/mL (<=0.10)
[2025-03-24 23:14] VITALS: BP 124/74; PULSE 65; RESP 18; TEMP 36.5; O2SAT 100
[2025-03-24 23:25] LABS: Lipase 2012 U/L (13-75); Magnesium 1.8 mg/dL (1.5-2.2)
[2025-03-24 23:39] LABS: AST(SGOT) 18 U/L (<=37); Alanine Aminotransfer ALT/SGPT 18 U/L (<=46); Albumin, Serum 3.6 g/dL (3.5-5.0); Alkaline Phosphatase 220 U/L (40-129); Calcium,Total 9.1 mg/dL (7.6-11.0); Potassium 5.2 mmol/L (3.3-5.1); Protein, Total 2.1 g/dL (5.9-8.4); Total Bilirubin < 0.15 mg/dL (0.00-1.30)
[2025-03-24 23:51] LABS: BUN/Creat Ratio 13.8 RATIO (10-20); EST Glomerular Filtration Rate 6 (>60); Estimated Creatinine Clearance 5.13 ml/min (50-250); Globulin -1.5 g/dL (2.2-4.2); Glucose 51 mg/dL (70-99)
[2025-03-25] VITALS (9 sets, daily range): BP systolic 105–115; BP diastolic 67–78; PULSE 56–64; RESP 16–18; TEMP 36.2–36.6; O2SAT 98–100; BMI 13.6
[2025-03-25 00:34] LABS: Anion Gap 30 (5-15); BUN 127 mg/dL (4-19); Carbon Dioxide 15.1 mmol/L (21.0-32.0); Chloride 73 mmol/L (98-108); Creatinine, Serum 9.18 mg/dL (0.70-1.20); Sodium Level 118 mmol/L (133-145)
[2025-03-25 00:44] LABS: Absolute Lymphocyte Count 0.42 X10^3/uL (0.83-4.51); Absolute Neutrophil Count 10.2 X10^3/uL (2.0-7.7); Basophil# 0.07 X10^3/uL; Basophil% 0.6 % (0-1); Eosinophil# 0.01 X10^3/uL; Eosinophils% 0.1 % (0-5); Hematocrit 41.1 % (40-54); Hemoglobin 15.2 g/dL (13.0-16.5); Lymphocyte # 0.42 X10^3/ul (0.83-4.51); Lymphocyte % 3.5 % (19-41); Mean Corpuscular Hgb 33.4 pg (27.0-32.0); Mean Corpuscular Volume 90.3 fL (80-94); Mean Platelet Vol. 9.2 fl (6.2-12.0); Monocyte# 0.92 X10^3/uL; Monocyte% 7.6 % (0-10); NRBC Flagged by Analyzer 0 % (0-5); Neutrophil # 10.22 X10^3/uL (2.7-7.7); Neutrophil % 84.6 % (47-70); POSITIVE DIFFERENTIAL YES; Platelet Count 341 K/mm3 (150-450); RBC Distribution Width CV 13.9 % (11.6-14.6); RBC Distribution Width SD 46.3 fl (35.1-43.9); Red Blood Count 4.55 M/mm3 (4.6-6.2); White Blood Count 12.1 K/mm3 (4.4-11.0)
--- NOTE | 2025-03-25 00:58 | HP.PCM.HOS_ITS ---
HPI - General General Date of Admission: 03/25/25 Date of Service: 03/25/25 Chief Complaint: Intractable N/V HPI Narrative The patient is a 50 y/o Zoroastrianism M w/ PMHx: Chronic anemia, GERD, Hx VTE (DVT), Severe protein calorie malnutrition, Rectal cancer diagnosed 02/25/2024 with pathology demonstrating invasive moderately differentiated adenocarcinoma with patient transition to [place] with APR with end ascending colostomy 03/30/2024 placed on a prescription for Xeloda in [place] however he did not take it at that time and unfortunately [place] the [place] had a large intra-abdominal abscess transferred to [facility] at that time with IR drainage with eventual small residual collection started on chemotherapy and radiation with PET scan demonstrating uptake in the pelvic mesentery posteriorly in the perirectal region, rectal pouch with no evidence of distant metastatic disease with radiation starting 07/12/2024 as patient was unable to swallow Xeloda tablets and chemoradiation with continuous infusions 5-FU starting 07/19/2024 complicated by 09/28/2024 bowel obstruction and bilateral moderate size hydronephrosis transferred to [facility] again at that time with eventual bilateral nephrostomy tubes placed in resolution of bowel obstruction conservatively initiated that time on FOLFOX with recent 02/2025 admission unfortunately for a high-grade bowel obstruction requiring surgical intervention with a diverting loop ileostomy performed per Dr. Chandler who now re-presents to the [facility] ED on 03/25/25 with intractable nausea, emesis with inability to take anything orally x 3 days with no acute abdominal pain, fever or chills or recent illness. He notes family has been healthy around him. He has had decreased ostomy outpatient although his reports over the last 24 hours it has only been liquid. He has also still had a small amount of draining urine from each nephrostomy tube. Workup in the ED included T97.4, heart 100, BP initially 78/60, respiratory rate 18, 98% on room air with most recent repeat vitals T97.8, heart rate 59, BP 115/67, respiratory rate 18, 100% on room air, CBC with WBC 12.1, he 1 15.2, platelets 341 with left shift and lymphopenia, CMP with sodium 118, potassium 5.2, chloride 73, carbon oxide 15.1, anion gap 30, BUN/creatinine 127/9.18, GFR 6, glucose 51, hepatic profile with alk phos 220, lipase 2012, procalcitonin 2.54, lactic acid less than 1, CT abdomen and pelvis without contrast with no evidence of any bowel obstruction or acute pancreatitis, diffuse bladder wall thickening, bilateral percutaneous nephrostomy tubes without any hydronephrosis noted. In the ED patient ministered 2 L normal saline and transition to maintenance IV fluids as well as prochlorperazine 5 mg IV x 1. ED did discuss case with neurology who noted intention to follow and agreed with ED physician obtaining UA and urine culture from each nephrostomy tube. [facility] Medical History Hypokalemia UTI (urinary tract infection) CINV (chemotherapy-induced nausea and vomiting) Cloudy urine Bradycardia Prerenal azotemia Constipation Hypoalbuminemia Wears glasses Cancer DVT (deep venous thrombosis) Syncope Non-smoker Cataract (lens) fragments in eye following cataract surgery, bilateral Mandeep blood in stool Chronic diarrhea of unknown origin Change in bowel habit Colon cancer Home Medications ?Medication ?Instructions ?Recorded ?Last Taken ?Type ondansetron 8 mg disintegrating 8 mg PO Q8H PRN nausea and 11/22/24 Unknown Rx tablet vomiting #30 tabs pantoprazole 40 mg tablet,delayed 40 mg PO DAILY 30 da ys #30 tabs 03/01/25 Unknown Rx release potassium chloride 20 mEq 20 meq PO DAILY 2 weeks #14 tabs 03/01/25 Unknown Rx tablet,extended release Allergy/AdvReac Type Severity Reaction Status Date / Time No Known Allergies Allergy Verified 03/24/25 21:50 Family History (Updated 03/25/25 @ 01:[address] Melva Roberts MD) Son Cancer Father Colon cancer Mother Heart disease Hypertension Heart failure Surgical History H/O insertion of nephrostomy tube H/O hernia repair S/P colonoscopy H/O colectomy History of creation of ostomy Social History household members: spouse Smoking Status: Never smoker alcohol intake: never substance use type: does not use ROS ROS Narrative Admission Review of Systems: CONSTITUTIONAL: No weight loss, fever, chills, + weakness or fatigue. HEENT: Eyes: No visual loss, blurred vision, double vision or yellow sclerae. Ears, Nose, Throat: No hearing loss, sneezing, congestion, runny nose or sore throat. SKIN: No rash or itching, lesions, wounds except + very stage ecchymoses. CARDIOVASCULAR: No chest pain, chest pressure or chest discomfort, palpitations, edema, orthopnea, syncopal events. RESPIRATORY: No shortness of breath, cough or sputum, wheezing, hemoptysis. GASTROINTESTINAL: + Anorexia, nausea, vomiting, ostomy with liquid output. No abdominal pain, melena, BRBPR. GENITOURINARY: No dysuria, frequency, urgency or retention. NEUROLOGICAL: No headache, dizziness, syncope, paralysis, ataxia, numbness or tingling in the extremities, focal weakness, change in bowel or bladder control, seizure. MUSCULOSKELETAL: + muscle, back pain, joint pain or stiffness. HEMATOLOGIC: + Chronic anemia, easy bleeding/bruising. LYMPHATICS: No enlarged nodes. No history of splenectomy. PSYCHIATRIC: No history of depression or anxiety. ENDOCRINOLOGIC: No reports of sweating, cold or heat intolerance. No polyuria or polydipsia. ALLERGIES: No history of asthma, hives, eczema or rhinitis. Vital Signs Vital Signs Vital Signs: 03/24/25 21:50 03/24/25 22:17 03/24/25 23:00 Temperature 97.4 F L Temperature Source Temporal Pulse Rate 100 64 Respiratory Rate 18 15 Blood Pressure 78/60 L 104/72 124/74 H Blood Pressure Mean 66 82 90 Pulse Ox 98 98 Oxygen Delivery Method Room Air Room Air 03/24/25 23:14 03/25/25 00:00 03/25/25 00:00 Temperature 97.7 F L 97.8 F Temperature Source Oral Oral Pulse Rate 65 59 L Respiratory Rate 18 18 Blood Pressure 124/74 H 115/67 115/67 Blood Pressure Mean 90 83 83 Pulse Ox 100 100 Oxygen Delivery Method Room Air Room Air Weight Weight: 92 lb 5.979 oz Body Mass Index (BMI) 14.0 Physical Exam Narrative Physical Examination: General: Fatigued but does awaken, does appear alert with discussions but not very interactive, oriented to self, place and recent events, laying in the ED bed, very flat affect. Skin: Normal color, normal turgor, no icterus, no cyanosis except occasional stage ecchymoses. HEENT: AT/NC, EOMI, PERRLA, dry MM, no carotid bruits or JVD noted. Lungs: Mildly diminished, greater bases, poor effort, no rales, ronchi or wheezing. Heart: Regular rate and rhythm; no gallop, rub audible. Abdomen: Soft, thin cachectic habitus, ostomy in place with liquid output, NTTP, no evidence of any distention, hyperactive BS, no appreciated HSM. Extremities: No cyanosis, no clubbing, no marked peripheral edema, evidence of muscle wasting and fat loss. Neurological: Fatigued but does awaken, does appear alert with discussions but not very interactive, oriented to self, place and recent events, laying in the ED bed, very flat affect, cognitive function suspect baseline intact; pupils equally reactive to light and accommodation, cranial nerves gross normal, moving all 4 extremities, no focal deficits, strength severely globally decreased. Psychiatric: Affect appears flat, no endorsed depressive or anxiety feelings. Results Lab / Micro Data 03/24/25 22:20 03/24/25 22:20 Labs: Laboratory Results - last 24 hr 03/24/25 22:20: WBC 12.1 H, RBC 4.55 L, Hgb 15.2, Hct 41.1, MCV 90.3, MCH 33.4 H , MCHC 37.0 H, RDW Std Deviation 46.3 H, RDW Coeff of Rosalee 13.9, Plt Count 341, MPV 9.2, Immature Gran % (Auto) 3.600 H, Neut % (Auto) 84.6 H, Lymph % (Auto) 3.5 L, [place] % (Auto) 7.6, Eos % (Auto) 0.1, Baso % (Auto) 0.6, Absolute Neuts (auto) 10.2 H, Absolute Lymphs (auto) 0.42 L, Nucleated RBC % 0, Sodium 118 L*, Potassium 5.2 H, Chloride 73 L*, Carbon Dioxide 15.1 L, Anion Gap 30 H, BUN 127 H*, Creatinine 9.18 H*, Estim Creat Clear Calc 5.13 L*, Est GFR (MDRD) Non-Af 6 L, BUN/Creatinine Ratio 13.8, Glucose 51 L, Lactic Acid < 1.0, Calcium 9.1, Magnesium 1.8, Total Bilirubin < 0.15, Direct Bilirubin 0.30, AST 18, ALT 18, A lkaline Phosphatase 220 H, Total Protein 2.1 L, Albumin 3.6, Globulin -1.5 L, L ipase 2012 H, Procalcitonin 2.54 H Imaging Radiology Impression Abdomen/Pelvis CT 03/25/25 23:56 IMPRESSION: 1. Limited noncontrast exam, without evidence of bowel obstruction or acute pancreatitis. 2. Diffuse bladder wall thickening, which may again be the result of cystitis, outlet obstruction, or neoplasm. Correlate with urinalysis and consider Urology referral. 3. Bilateral percutaneous nephrostomy tubes, without hydronephrosis. Reading Location: [id number] Assessment & Plan Assessment/Plan (1) Acute kidney injury: PLAN: Plan The patient is a 50 y/o Zoroastrianism M w/ PMHx: Chronic anemia, GERD, Hx VTE (DVT), Severe protein calorie malnutrition, Rectal cancer s/p APR with end ascending colostomy 03/30/2024 complicated by large intra-abdominal abscess treated with radiation and chemotherapy, Hx SBO initially 09/2024 with concurrent INOCENCIA s/p BL nephrostomy tubes and recent 02/2025 complicated SBO admission requiring diverting loop ileostomy who now re-presents to the [facility] ED on 03/25/25 with intractable nausea, emesis with inability to take anything orally x 3 days with no acute abdominal pain, fever or chills or recent illness. #1. Intractable nausea and emesis with elevated lipase with concern for acute pancreatitis however there is no obvious stranding or concerning appearance of the pancreas: Will admit to PCU given significant presentation with electrolyte disturbances, maintain on IVFs, allow clears if able to tolerate, maintain on IV PPI, IV/po pain control although currently no marked abdominal pain, trend lipase. To be cautious will test patient's ostomy output for C. difficile and enteric pathogens especially given recent admission and antibiotic therapies. #2. Acute kidney injury on CKD stage II per previous GFR trending: Secondary to GI losses. Admission BUN/Cr 127/9.18, GFR 6, prior baseline creatinine noted to be primarily 1.2-1.6 however has vacillated and most recently 03/01/2025 creatinine noted to be 1.03. Will continue to hydrate, hold nephrotoxic medications and repeat chemistry in AM, Obtain FeNa assessment, pending urinalysis and urine culture from each nephrostomy tube to be cautious. Given notable elevation complicated by BL nephrostomy presence will request early involvement of Nephrology. #3. Significant electrolyte disturbances/metabolic derangements with hyponatremia, hypochloremia secondary to suspected GI losses: Admission sodium 118, chloride 73, potassium mildly elevated 5.2, common oxide 15.1, AG 30, administered 2 L normal saline in ED, will continue maintenance IV fluids, will repeat BMP to closely follow correction, will continue to trend, magnesium and phosphorus levels also requested and pending. #4. Hypoglycemia: Likely secondary to poor recent oral intake and GI losses, admission glucose 51, repeat in ED 104, will repeat BMP and continue to monitor and if needed certainly low threshold to change to dextrose supplemental fluids. #5. Bilateral nephrostomy tubes with no evidence of hydronephrosis complicated by the fact that patient has significant acute kidney injury on CKD stage II, suspect primarily this is related with his acute GI losses especially given CT scan with no hydronephrosis but to be cautious ED did discuss case with urology who will follow. #6. Rectal cancer: Patient treated with radiation and surgery in addition to chemotherapy which is ongoing, following with Dr. Ho although in the last note per oncology it seems as though patient was going to stop interventions following that round and potentially transition to [facility] but discussed with patient and his and they are intends upon continuing to follow locally thus encouraged them to keep their current plan follow-up visit which she notes is already in place, magnesium and phosphorus levels requested, monitor ostomy output, as noted will test ostomy output for enteric pathogens and C. difficile to be cautious. #7. Severe protein calorie malnutrition: Evidenced by significantly reduced BMI, obvious muscle and fat loss, recent inability for oral intake x 3 days with intractable nausea and emesis as noted, nutrition consulted for recommendations. #8. History of VTE: Patient with previous history of DVT, per current list does not appear to be on chronic anticoagulant therapy, will maintain on chemoprophylaxis but clarified to be certain. '' #9. Chronic anemia, normally macrocytic: Admission CBC with hemoglobin 15.2, MCV 90.3, baseline hemoglobin more recently 02/2025 at discharge in the 9-10 range, suspect with severity of dehydration the hemoglobin is altered, will continue to trend CBC. #10. GERD: Will maintain on IV PPI. #11. DVT prophylaxis: Lovenox. #12. CODE status: Patient HCPOA and living will are not in place but his who is present would be his medical decision-maker if necessary. Discussed CODE status at length including difference between FULL code, DNR-CCA and DNR-CC status. Following discussions about the differences in these status, requested DNR-CCA, no intubation status. Advanced Care Planning Face to Face Time: 16 minutes. Charges/Coding Visit Charges Inpatient E&M: 06100 Init Hosp L3 Procedures Hospitalists Procedures: [id number] Advncd Care Plan 30 Min
--- NOTE | 2025-03-25 01:02 | EKG12_ITS ---
Test Reason : DYSRHYTHMIA Blood Pressure : */* mmHG Vent. Rate : 61 BPM Atrial Rate : 61 BPM P-R Int : 180 ms QRS Dur : 86 ms QT Int : 434 ms P-R-T Axes : 81 26 77 degrees QTcB Int : 436 ms Normal sinus rhythm with sinus arrhythmia Normal ECG Confirmed by EVELIA STANTON, HERNAN ([id number]), newspaper managing editor FLOR GRAY ([id number]) on 03/28/2025 6:48:15 AM Referred By: Confirmed By: HERNAN ALTAMIRANO MD
--- NOTE | 2025-03-25 01:12 | EX.ED.DYSGE1 ---
HPI History of Present Illness Chief Complaint: Nausea/Vomiting Informant: patient and spouse/S.O. Narrative Narrative: Patient is a 59-year-old male with past medical history of rectal cancer. He had bilateral nephrostomy tubes placed at [facility] in October of this year as well. He was recently admitted to our hospital in February secondary to small bowel obstruction for which he underwent surgery and had his previous colostomy diverted to a new section. He states that he finished chemotherapy and radiation in January of this year. He reports that he was doing better after discharge but over the last 3 days has had persistent bouts of nausea and vomiting and poor oral intake. He states he has Zofran at home and has been taking this without any symptom improvement. reports has been decreased output from his ostomy. Therefore with persistent symptoms and concern for potential repeat obstruction or infection he was brought in for evaluation [facility] Medical History Hypokalemia UTI (urinary tract infection) CINV (chemotherapy-induced nausea and vomiting) Cloudy urine Bradycardia Prerenal azotemia Constipation Hypoalbuminemia Wears glasses Cancer DVT (deep venous thrombosis) Syncope Non-smoker Cataract (lens) fragments in eye following cataract surgery, bilateral Mandeep blood in stool Chronic diarrhea of unknown origin Change in bowel habit Colon cancer Home Medications ?Medication ?Instructions ?Recorded ?Last Taken ?Type ondansetron 8 mg disintegrating 8 mg PO Q8H PRN nausea and 11/22/24 Unknown Rx tablet vomiting #30 tabs pantoprazole 40 mg tablet,delayed 40 mg PO DAILY 30 days #30 tabs 03/01/25 Unknown Rx release potassium chloride 20 mEq 20 meq PO DAILY 2 weeks #14 tabs 03/01/25 Unknown Rx tablet,extended release Allergy/AdvReac Type Severity Reaction Status Date / Time No Known Allergies Allergy Verified 03/24/25 21:50 Family History Son Cancer Surgical History (Updated 03/25/25 @ 00:[address] Melva Roberts MD) H/O insertion of nephrostomy tube H/O hernia repair S/P colonoscopy H/O colectomy History of creation of ostomy Social History household members: spouse Smoking Status: Never smoker alcohol intake: never substance use type: does not use ROS ROS ED Constitutional Constitutional ED: Reports other Details: Positive fatigue/weakness ; Denies chills or fever(s) ENT ENT ED: Denies sore throat Cardiovascular Cardiovascular: Denies chest pain Respiratory/Chest Respiratory/Chest: Denies cough or dyspnea Gastrointestinal Gastrointestinal: Reports nausea and vomiting; Denies abdominal pain or melena Genitourinary Genitourinary ED: Denies dysuria Musculoskeletal Musculoskeletal: Denies myalgias Integumentary Denies rash Neurologic Neurologic: Reports weakness; Denies headache(s) Hematologic/Lymphatic Hematologic/Lymphatic: Denies easy bleeding or easy bruising EXAM Physical Exam Const Vital Signs: 03/24/25 21:50 03/24/25 22:17 03/24/25 23:00 Temperature 97.4 F L Temperature Source Temporal Pulse Rate 100 64 Respiratory Rate 18 15 Blood Pressure 78/60 L 104/72 124/74 H Blood Pressure Mean 66 82 90 Pulse Ox 98 98 Oxygen Delivery Method Room Air Room Air 03/24/25 23:14 03/25/25 00:00 03/25/25 00:00 Temperature 97.7 F L 97.8 F Temperature Source Oral Oral Pulse Rate 65 59 L Respiratory Rate 18 18 Blood Pressure 124/74 H 115/67 115/67 Blood Pressure Mean 90 83 83 Pulse Ox 100 100 Oxygen Delivery Method Room Air Room Air 03/25/25 01:00 03/25/25 01:06 03/25/25 01:16 Temperature 97.6 F L 97.5 F L Temperature Source Oral Pulse Rate 60 62 Respiratory Rate 18 16 Blood Pressure 112/75 112/75 112/75 Blood Pressure Mean 87 87 87 Pulse Ox 99 99 Oxygen Delivery Method Room Air Positive well nourished, well developed and cachectic General Appearance ED: well developed and cachectic; Negative for pallor Nutritional Appearance: cachectic HEENT Reports dry mucous membranes HEENT Narrative: Mucous membranes are dry and tacky No tongue or lip swelling no oral lesions no airway edema or compromise No secondary findings in the posterior pharynx to suggest infection Mouth ED: Yes dry mucous membranes Mouth: dry mucous membranes Eyes PERRL and EOMs intact bilaterally General Eye ED: Negative for scleral icterus Neck supple Neck Narrative: No nuchal rigidity or meningeal signs Resp normal respiratory effort and clear to auscultation bilaterally Resp Narrative: Breath sounds are diminished throughout but overall clear to auscultation without signs of respiratory distress Cardio regular rate and regular rhythm Rate: other Other Details: Radial and carotid pulses are equal and symmetric GI non-tender, non-distended and no masses GI Narrative: Abdomen is soft and nondistended with hypoactive bowel sounds. No localized pain with palpation. No pulsatile mass or fluid wave. Colostomy's are in place in the lower abdomen bilaterally with minimal stool production Auscultation: hypoactive bowel sounds Palpation: soft Back/Spine Back/Spine Narrative: Patient has bilateral nephrostomy tubes in place without leakage from the insertion site or secondary skin changes for infection Both nephrostomy tubes appear to be functioning normally with urine within the tube and nephrostomy bag Extremity normal to inspection Neuro oriented x3, CN's II-XII intact bilaterally and no sensory deficits noted Sensorium / Orientation: alert Motor Exam: strength 5/5 throughout Psych Psych Narrative: Patient has a flat affect Skin no rashes or lesions noted and No skin turgor normal Skin Narrative: Skin turgor is increased General Skin Exam: Negative for jaundice or pallor MDM MDM MDM Narrative Medical decision making narrative: Patient arrived with initial blood pressure of 78/60 however he is cachectic from his rectal cancer and therefore I had a blood pressure rechecked with a smaller cuff. Without providing any medication just from triage to the room the blood pressure improved to 108/60. He has had a recent small bowel obstruction and there is minimal output from his colostomy but the remainder of his exam does not show findings suggestive of this. However in order to ensure he does not have an intestinal infection or repeat SBO a CT scan of the abdomen and pelvis was ordered. His physical exam is concerning for severe dehydration which could cause acute kidney injury and or clinically significant electrolyte abnormality. Lab work has shown that his creatinine from March 01 was normal at 1 and today it is grossly elevated at approximately 9.2. This is consistent with acute kidney injury. With this he has multiple electrolyte abnormalities. An EKG was obtained secondary to this which reveals no cardiac dysrhythmia or ischemic changes. The patient's lipase is grossly elevated at 2000 his previous value was only slightly elevated at approximately 100. The CT scan however does not show signs of inflammation or mass. The patient does have a white count of 12.1 with left shift however there is no obvious signs of infection based on physical exam. Secondary to this we will obtain a urine sample and culture from each nephrostomy tube to check for potential infectious process. The CT scan confirms the nephrostomy tubes are in proper position without signs of stone or hydronephrosis which correlate with the fact that both are draining. At this time based on his elevated lipase he classifies as pancreatitis even though the CT scan does not show inflammation. He also has acute kidney injury with multiple metabolic electrolyte abnormality. Secondary to his he will need admitted for continued IV hydration and monitoring. The case was discussed with the hospitalist who agrees to accept the patient. However as he does have nephrostomy tubes which were placed at an outside hospital urology was contacted as well to make sure they are on board with seeing the patient in consult. They state that they will follow the patient but at this time as they are draining there is no obvious need for replacement. This plan of care was discussed with the patient and who are agreeable to it and therefore he will be admitted to the hospital for continued care History & Record Review Discussion w/independent historian: Patient and Significant other Lab Data Attestation: I reviewed the patient's lab results. Labs: Laboratory Results - last 24 hr 03/24/25 22:20 WBC 12.1 H RBC 4.55 L Hgb 15.2 Hct 41.1 MCV 90.3 MCH 33.4 H MCHC 37.0 H RDW Std Deviation 46.3 H RDW Coeff of Rosalee 13.9 Plt Count 341 MPV 9.2 Immature Gran % (Auto) 3.600 H Neut % (Auto) 84.6 H Lymph % (Auto) 3.5 L [place] % (Auto) 7.6 Eos % (Auto) 0.1 Baso % (Auto) 0.6 Absolute Neuts (auto) 10.2 H Absolute Lymphs (auto) 0.42 L Nucleated RBC % 0 Sodium 118 L* Potassium 5.2 H Chloride 73 L* Carbon Dioxide 15.1 L Anion Gap 30 H BUN 127 H* Creatinine 9.18 H* Estim Creat Clear Calc 5.13 L* Est GFR (MDRD) Non-Af 6 L BUN/Creatinine Ratio 13.8 Glucose 51 L Lactic Acid < 1.0 Calcium 9.1 Magnesium 1.8 Total Bilirubin < 0.15 Direct Bilirubin 0.30 AST 18 ALT 18 Alkaline Phosphatase 220 H Total Protein 2.1 L Albumin 3.6 Globulin -1.5 L Lipase 2012 H Procalcitonin 2.54 H Radiography Diagnostic Testing: Clinical Impression(s) from Imaging Studies Abdomen/Pelvis CT 03/25/25 23:56 IMPRESSION: 1. Limited noncontrast exam, without evidence of bowel obstruction or acute pancreatitis. 2. Diffuse bladder wall thickening, which may again be the result of cystitis, outlet obstruction, or neoplasm. Correlate with urinalysis and consider Urology referral. 3. Bilateral percutaneous nephrostomy tubes, without hydronephrosis. Reading Location: [id number] Management Discussion w/another healthcare provider: Hospitalist and Certified Travel Counselor Critical Care Time Critical Care Time: Yes Critical care time (excluding procedures): Discussing w/Patient &/or Family/Solar Installer Pv, Discussing w/Consultants and - (Critical care time of 31 minutes) Discharge Plan Triage Chief Complaint: Nausea/Vomiting Other Complaint: Hypotension ED Provider: Marcelo De Dios Dx/Rx/DC Orders Clinical Impression: Severe dehydration, Rectal cancer, Acute kidney injury, Acute pancreatitis, Nausea & vomiting, Acute hyponatremia Primary Care Provider: Morelia Calvillo [employer] WELL PU[employer]ER Disposition Disposition: Acute Care [facility]
[2025-03-25 01:15] LABS: Mucous, Urine 0 SEEN /hpf (<or=2+); Squamous Epithelial Cells - UA 0 SEEN /hpf (0-5)
[2025-03-25 01:16] LABS: Mucous, Urine 0 SEEN /hpf (<or=2+); Squamous Epithelial Cells - UA 0 SEEN /hpf (0-5)
[2025-03-25] MEDS: 0.9% Normal Saline (1000mL) 1,000 ML 100 ML IV ×3 (01:16→18:20)
[2025-03-25 01:29] LABS: Color, Urine Straw (Yellow); Glucose, Dipstick Normal (Normal); Ketone-Dipstick Negative (Negative); Leukocyte Esterase-Dipstick 500 /ul (Negative); Nitrite-Dipstick Negative (Negative); Occult Blood-Urine 250 /ul (Negative); Protein-Dipstick 100 mg/dl (Negative); Urine Bilirubin Dipstick Negative (Negative); Urine Clarity Turbid (Clear); Urine Urobilinogen Normal (Normal)
[2025-03-25 01:30] LABS: Color, Urine Straw (Yellow); Glucose, Dipstick Normal (Normal); Ketone-Dipstick Negative (Negative); Leukocyte Esterase-Dipstick 500 /ul (Negative); Nitrite-Dipstick Negative (Negative); Occult Blood-Urine 250 /ul (Negative); Protein-Dipstick 100 mg/dl (Negative); Urine Bilirubin Dipstick Negative (Negative); Urine Clarity Turbid (Clear); Urine Urobilinogen Normal (Normal)
--- OUTSIDE RECORDS SUMMARY | 2025-03-25 01:31 | XMS RPT_ITS | CCD ---
Author Organization [facility] Care Team Providers Care Alternative Education Teacher Name Role Phone JOSESITO CASTELLON-ELLY Rangel Unavailable ADI STANTON, VINICIUS Combs Unavailable [phone] SALENA FOSTER Unavailable Unavailable Unavailable ANASTACIA RENDON Unavailable Gregoria Cummings RN Unavailable Unavailable SATURNINO, JERRY Admitting Unavailable SATURNINO, JERRY Primary Care Unavailable JERRY MATAMOROS Attending Unavailable MATAMOROS, JERRY Admitting Unavailable MATAMOROS, JERRY Primary Care Unavailable JERRY MATAMOROS Attending Unavailable ELLY BELLAMY BAG FILLER MACHINE OPERATOR Admitting Unavailab ELLY Carrion NP Primary Care Unavailab ELLY Carrion BAG FILLER MACHINE OPERATOR Attending Unavailab le STEPHANIE ROUSSEAU Admitting Unavailable STEPHANIE ROUSSEAU Primary Care Unavailable STEPHANIE ROUSSEAU Attending Unavailable Self, Self Primary Care Provider Unavailabl e ELLY OLEA Unavailable Unav ailable Randall NEWELL MD Unavailable Guy Ho MD Unavailable Ambrose Leija DO Unavailable [phone] Laura Guerra RN Unavailable Unavailable Care Physician, No Primary Primary Care Provider Unavailable Care Physician, No Primary Referring Provider Un available Rubi Martínez Attending Provider Dr. Enrique Romero MD Attending Provider Dr. Guy Ho MD Attending Provider Dr. Enrique Romero MD Referring Provider Dr. Rangel Connor MD Attending Provider Dr. Guy Ho MD Referring Provider [phone] Dr. Ambrose Leija DO Other Provider [phone] Dr. Gwyn Esquivel DO Emergency Provider Lele STANTON, Dr. Murrell Admit Provider [phone] Lele STANTON, Dr. Murrell Attending Provider HARZMAN, HILARY E Attending Unavailable HARZMAN, HILARY [...] Ramesh STANTON, Dr. Kunal Driscoll Other Provider Josesito BAG FILLER MACHINE OPERATOR-C, Elly Primary Care Provider Lele STANTON, Dr. Murrell Other Provider Ramesh STANTON, Dr. Kunal Driscoll Attending Provider Reggie STANTON, Dr. Noriega Attending Provider Rachael Tierney PA-C Attending Provider Kunal Chandler Consulting Unavailable Magdafstettmiguel a BAG FILLER MACHINE OPERATOR, Elly Primary Care Unavailab le Handy Royal Attending Unavailable Handy Royal Admitting Unavailable Handy Royal Consulting Unavailable Care Physician, No Primary Referring Unava ilable Care Physician, No Primary Primary Care Unava ilable Enrique Romero Attending Unavailable Care Physician, No Primary Referring Unava ilable Care Physician, No Primary Primary Care Unava ilable Daren BAG FILLER MACHINE OPERATOR, Rubi Attending Unavailable Ambrose Leija Attending Unavailable Hofstetter BAG FILLER MACHINE OPERATOR, Elly Primary Care Unavailab Ambrose Mayes Attending Unavailable Ambrose Leija Referring Unavailable Hofstetter BAG FILLER MACHINE OPERATOR, Elly Primary Care Unavailab le Guy Ho Attending Unavailable Hofstetter BAG FILLER MACHINE OPERATOR, Elly Referring Unavailab le Hofstetter BAG FILLER MACHINE OPERATOR, Elly Primary Care Unavailab le Care Physician, No Primary Primary Care Unava ilable Care Physician, No Primary Primary Care Unava ilable Leah Kidd Attending Unavailable Handy Royal Referring Unavailable Care Physician, No Primary Primary Care Unava ilable Cori Stephens Attending Unavailable Enrique Romero Attending Unavailable Care Physician, No Primary Primary Care Unava ilable Ambrose Leija Referring Unavailable Hofstetter BAG FILLER MACHINE OPERATOR, Elly Primary Care Unavailab Ambrose Mayes Attending Unavailable Ambrose Leija Attending Unavailable Ambrose Leija Referring Unavailable Hofstetter BAG FILLER MACHINE OPERATOR, Elly Primary Care Unavailab le Hofstetter BAG FILLER MACHINE OPERATOR, Elly Primary Care Unavailab Ambrose Mayes Referring Unavailable Ambrose Leija Attending Unavailable Care Physician, No Primary Referring Unava ilable Care Physician, No Primary Primary Care Unava ilable Guy Ho Attending Unavailable Hofstetter BAG FILLER MACHINE OPERATOR, Elly Referring Unavailab le Hofstetter BAG FILLER MACHINE OPERATOR, Elly Primary Care Unavailab le Daren BAG FILLER MACHINE OPERATOR, Rubi Attending Unavailable Ambrose Leija Attending Unavailable Ambrose Leija Referring Unavailable Hofstetter BAG FILLER MACHINE OPERATOR, Elly Primary Care Unavailab le Hofstetter BAG FILLER MACHINE OPERATOR, Elly Primary Care Unavailab le Hofstetter BAG FILLER MACHINE OPERATOR, Elly Referring Unavailab le Daren BAG FILLER MACHINE OPERATOR, Rubi Attending Unavailable Hofstetter BAG FILLER MACHINE OPERATOR, Elly Referring Unavailab le Hofstetter BAG FILLER MACHINE OPERATOR, Elly Primary Care Unavailab le Prah, Guy Attending Unavailable Hofstetter BAG FILLER MACHINE OPERATOR, Elly Referring Unavailab le Hofstetter BAG FILLER MACHINE OPERATOR, Elly Primary Care Unavailab le Daren BAG FILLER MACHINE OPERATOR, Rubi Attending Unavailable Hofstetter BAG FILLER MACHINE OPERATOR, Elly Referring Unavailab le Hofstetter BAG FILLER MACHINE OPERATOR, Elly Primary Care Unavailab le Prah, Guy Attending Unavailable Hofstetter BAG FILLER MACHINE OPERATOR, Elly Primary Care Unavailab Kunal Richard Attending [...] No Primary Primary Care Unava ilable Daren BAG FILLER MACHINE OPERATOR, Rubi Attending Unavailable Guy Ho Attending Unavailable Care Physician, No Primary Referring Unava ilable Care Physician, No Primary Primary Care Unava ilable Nick, [place] Referring Unavailable Nick, [place] Attending Unavailable Care Physician, No Primary Primary Care Unava ilable Kunal Chandler Consulting Unavailable Ivantetter BAG FILLER MACHINE OPERATOR, Elly Primary Care Unavailab Handy Caruso Attending Unavailable Lele Handy Admitting Unavailable Nick, [place] Referring Unavailable Nick, [place] Attending Unavailable Care Physician, No Primary Primary Care Unava ilable Nick, [place] Referring Unavailable Nick, [place] Attending Unavailable Care Physician, No Primary Primary Care Unava ilable Care Physician, No Primary Primary Care Unava ilable Sher Arndt Attending Unavailable Rangel Connor Attending Unavailable Care Physician, No Primary Primary Care Unava ilable Care Physician, No Primary Referring Unava ilable Rangel Connor Attending Unavailable Care Physician, No Primary Primary Care Unava ilable Care Physician, No Primary Referring Unava ilable Care Physician, No Primary Primary Care Unava ilable Daren BAG FILLER MACHINE OPERATOR, Rubi Attending Unavailable Care Physician, No Primary Referring Unava ilable Kunal Chandler Attending Unavailable Magdafsjuan antonioer BAG FILLER MACHINE OPERATOR, Elly Referring Unavailab le Care Physician, No [...] No Primary Primary Care Unava ilable Daren BAG FILLER MACHINE OPERATOR, Rubi Attending Unavailable Care Physician, No Primary [...] Unava ilable Vic, Guy Attending Unavailable Ivantehusseiner BAG FILLER MACHINE OPERATOR, Elly Primary Care Unavailab Kunal Richard Attending Unavailable Kunal Chandler Referring Unavailable Care Physician, No Primary Primary Care Unava ilable Pralisa, Guy Referring Unavailable Vic, Guy Attending Unavailable Care Physician, No Primary Primary Care Unava ilable Pralisa, Guy Referring Unavailable Pralisa, Guy Attending Unavailable Ambrose Leija Consulting Unavailable Kunal Chandler Attending Unavailable Handy Royal Referring Unavailable Hofstetter BAG FILLER MACHINE OPERATOR, Elly Referring Unavailab le Hofstetter BAG FILLER MACHINE OPERATOR, Elly Primary Care Unavailab le PrahGuy Attending Unavailable Hofstetter BAG FILLER MACHINE OPERATOR, Elly Referring Unavailab le Hofstetter BAG FILLER MACHINE OPERATOR, Elly Primary Care Unavailab le Daren BAG FILLER MACHINE OPERATOR, Rubi Attending Unavailable Allergies Allergy Classification Reported Allergen(s) Allergy Type Date of Onset Reaction(s) Facility Unclassified (1 source) 10/22/2023 (+) CDIFF TOXIN; Translations: [10/22/2023 (+) CDIFF TOXIN] Propensity to adverse reactions (disorder) [facility] Repository Medications Current Medications Medication Drug [...] 09, 2024 3:07pm 20 ml albumin human, mcfp 250 mg/ml injection (1 source) Human Serum Albumin Start: 10-13-2024 End: 10-13-2024 25 g, Intravenous, Administer over 60 Minutes, ONCE, 1 dose, On Fri10/13/24 at 1130, At [facility], in emergencies, administer as rapidly [...] 2 g, Intravenous, Administer over 30 Minutes, PE MANAGER TO PROCEDURE, 1 dose, Starting on Fri05/07/24 at 1353, Until Fri05/07/24 at 1601, Surgical Prophylaxis, Initiate antibiotic administration 30-60 minutes prior to surgical incision and complete administration prior to surgical incision., Pre-op/Pre-Proc Start: 04-30-2024 End: 04-30-2024 2 g, Intravenous, Administer over 30 Minutes, PE MANAGER TO PROCEDURE, 1 dose, Starting on Fri04/30/24 [...] Subcutaneous, EVERY 24 HOURS, First dose on [facility] 05/01/24 at 0900, Until Discontinued, For SUBCUTANEOUS [...] at 200 mL/hr, Administer over 30 Minutes, PE MANAGER TO PROCEDURE, 1 dose, Starting on Fri05/07/24 at 1353, Until Fri05/07/24 at 1538, Surgical Prophylaxis, Initiate antibiotic administration 30-60 minutes prior to surgical incision and complete administration prior to surgical incision., Pre-op/Pre-Proc Start: 04-30-2024 End: 04-30-2024 500 mg, Intravenous, at 200 mL/hr, Administer over 30 Minutes, PE MANAGER TO PROCEDURE, 1 dose, Starting on Fri04/30/24 [...] needed Prochlorperazine (COMPAZINE) tablet 5 mg sennosides, mcfp 8.6 mg oral capsule (4 sources) Start: [...] Visit Reporton 03-10 Surgery Visit Report Normal [facility] Basic Metabolic Profile (BMP )on 03-02-2025 BUN Normal 4-19 [facility] Comment on above: Result Comment: Canc elled via OM: Order cancelled - Patient discharged Performed By: #### L 100.0100, L500.2500 ####[facility] [address] [place], [address] BUN/CRE Normal 10-20 [facility] Comment on above: Result Comment: Canc elled via OM: Order cancelled - Patient discharged Performed By: #### L 100.0100, L500.2500 ####[facility] [address] [place], [address] Calcium Normal 7.6-11.0 [facility] Comment on above: Result Comment: Canc elled via OM: Order cancelled - Patient discharged Performed By: #### L 100.0100, L500.2500 ####[facility] [address] [place], [address] CL Normal 98-108 [facility] Comment on above: Result Comment: Canc elled via OM: Order cancelled - Patient discharged Performed By: #### L 100.0100, L500.2500 ####[facility] [address] [place], [address] CO2 Normal 21.0-32.0 [facility] Comment on above: Result Comment: Canc elled via OM: Order cancelled - Patient discharged Performed By: #### L 100.0100, L500.2500 ####[facility] [address] [place], [address] CREAT,SERUM Normal 0.70-1.20 [facility] Comment on above: Result Comment: Canc elled via OM: Order cancelled - Patient discharged Performed By: #### L 100.0100, L500.2500 ####[facility] [address] [place], [address] eGFR Normal >60 [facility] Comment on above: Result Comment: Canc elled via OM: Order cancelled - Patient discharged Performed By: #### L 100.0100, L500.2500 ####[facility] [address] [place], [address] GAP Normal 5-15 [facility] Comment on above: Result Comment: Canc elled via OM: Order cancelled - Patient discharged Performed By: #### L 100.0100, L500.2500 ####[facility] [address] [place], [address] GLU Normal 70-99 [facility] Comment on above: Result Comment: Canc elled via OM: Order cancelled - Patient discharged Performed By: #### L 100.0100, L500.2500 ####[facility] [address] [place], [address] Potassium Normal 3.3-5.1 [facility] Comment on above: Result Comment: Canc elled via OM: Order cancelled - Patient discharged Performed By: #### L 100.0100, L500.2500 ####[facility] [address] [place], [address] Basic Metabolic Profile (BMP) Normal 133-145 [facility] Comment on above: Result Comment: Canc elled via OM: Order cancelled - Patient discharged Performed By: #### L 100.0100, L500.2500 ####[facility] [address] [place], [address] CBC W/Diff, Automatedon 05-1 Absolute Neut Normal 2.0-7.7 [facility] Comment on above: Result Comment: Canc elled via OM: Order cancelled - Patient discharged Performed By: #### L 100.0100, L500.2500 ####[facility] [address] [place], [address] HCT Normal 40-54 [facility] Comment on above: Result Comment: Canc elled via OM: Order cancelled - Patient discharged Performed By: #### L 100.0100, L500.2500 ####[facility] [address] [place], [address] HGB Normal 13.0-16.5 [facility] Comment on above: Result Comment: Canc elled via OM: Order cancelled - Patient discharged Performed By: #### L 100.0100, L500.2500 ####[facility] [address] [place], [address] MCH Normal 27.0-32.0 [facility] Comment on above: Result Comment: Canc elled via OM: Order cancelled - Patient discharged Performed By: #### L 100.0100, L500.2500 ####[facility] [address] [place], [address] MCHC Normal 32-36 [facility] Comment on above: Result Comment: Canc elled via OM: Order cancelled - Patient discharged Performed By: #### L 100.0100, L500.2500 ####[facility] [address] [place], [address] MCV Normal 80-94 [facility] Comment on above: Result Comment: Canc elled via OM: Order cancelled - Patient discharged Performed By: #### L 100.0100, L500.2500 ####[facility] [address] [place], [address] NEUT% Normal 47-70 [facility] Comment on above: Result Comment: Canc elled via OM: Order cancelled - Patient discharged Performed By: #### L 100.0100, L500.2500 ####[facility] [address] [place], [address] PLT Normal 150-450 [facility] Comment on above: Result Comment: Canc elled via OM: Order cancelled - Patient discharged Performed By: #### L 100.0100, L500.2500 ####[facility] [address] [place], [address] RBC Normal 4.6-6.2 [facility] Comment on above: Result Comment: Canc elled via OM: Order cancelled - Patient discharged Performed By: #### L 100.0100, L500.2500 ####[facility] [address] [place], [address] RDW CV Normal 11.6-14.6 [facility] Comment on above: Result Comment: Canc elled via OM: Order cancelled - Patient discharged Performed By: #### L 100.0100, L500.2500 ####[facility] [address] [place], [address] RDW SD Normal 35.1-43.9 [facility] Comment on above: Result Comment: Canc elled via OM: Order cancelled - Patient discharged Performed By: #### L 100.0100, L500.2500 ####[facility] [address] [place], [address] WBC Normal 4.4-11.0 [facility] Comment on above: Result Comment: Canc elled via OM: Order cancelled - Patient discharged Performed By: #### L 100.0100, L500.2500 ####[facility] [address] [place], [address] Absolute lymphocyte countOrd ered By: Handy Royal on 03-01-2025 Lymphocytes Auto (Unsp spec) [#/Vol] 0.55 10*3/uL Low 0.83-4.51 [facility] Absolute neutrophil countOrd ered By: Handy Royal on 03-01-2025 Neutrophils (Bld) [#/Vol] 1.2 10*3/uL Low 2.0-7.7 [facility] Anion gap in Serum or Plasma Ordered By: Handy Royal on 03-01-2025 Anion gap [Moles/Vol] 7 mmol/L - [facility] Automated lymphocyte count a s percentage of total leukocytesOrdered By: Handy Royal on 03-01-2025 Lymphocytes/100 WBC Auto (Unsp spec) 22.3 % [facility] BUN/creatinine ratioOrdered By: Handy Royal on 03-01-2025 Urea nitrogen/Creatinine [Mass ratio] 12.6 mg/mg 08-08 [facility] Basic Metabolic Profile (BMP )on 03-01-2025 BUN/CRE 12.6 RATIO Normal 08-08 [facility] Comment on above: Performed By: #### L 100.0100, L500.2500 ####[facility] [address] [place], [address] Calcium [Mass/Vol] 8.5 mg/dL Normal 7.6-11.0 [facility] Comment on above: Performed By: #### L 100.0100, L500.2500 ####[facility] [address] [place], [address] Chloride [Moles/Vol] 101 mmol/L Normal 98-108 [facility] Comment on above: Performed By: #### L 100.0100, L500.2500 ####[facility] [address] [place], [address] CO2 [Moles/Vol] 26.7 mmol/L Normal 21.0-32.0 [facility] Comment on above: Performed By: #### L 100.0100, L500.2500 ####[facility] [address] [place], [address] Creatinine [Mass/Vol] 1.03 mg/dL Normal 0.70-1.20 [facility] Comment on above: Performed By: #### L 100.0100, L500.2500 ####[facility] [address] [place], [address] ECRCL 53.85 ml/min Normal 50-250 [facility] Comment on above: Performed By: #### L 100.0100, L500.2500 ####[facility] [address] [place], [address] GAP 7 Normal 5-15 [facility] Comment on above: Performed By: #### L 100.0100, L500.2500 ####[facility] [address] [place], [address] GFR/1.73 sq M.predicted among non-blacks MDRD (S/P/Bld) [Vol rate/Area] 84 mL/min/{1.73_m2} Normal >60 [facility] Comment on above: Result Comment: mL/m in/1.73m2 CKD-EPI Creatinine Equation (2020) Performed By: #### L 100.0100, L500.2500 ####[facility] [address] [place], [address] Glucose [Mass/Vol] 97 mg/dL Normal 70-99 [facility] Comment on above: Performed By: #### L 100.0100, L500.2500 ####[facility] [address] [place], [address] Potassium [Moles/Vol] 3.5 mmol/L Normal 3.3-5.1 [facility] Comment on above: Performed By: #### L 100.0100, L500.2500 ####[facility] [address] [place], [address] Sodium [Moles/Vol] 135 mmol/L Normal 133-145 [facility] Comment on above: Performed By: #### L 100.0100, L500.2500 ####[facility] [address] [place], [address] Urea nitrogen [Mass/Vol] 13 mg/dL Normal 4-19 [facility] Comment on above: Performed By: #### L 100.0100, L500.2500 ####[facility] [address] [place], [address] Basophil percentageOrdered B y: Handy Royal on 03-01-2025 Basophils/100 WBC (Bld) 0.4 % 0-1 [facility] Blood manual differential co mment interpretation (narrative result)Ordered By: Handy Royal on 03-01-2025 Manual differential comment Leonard (Bld) [Interp] SCANNED [facility] CBC W/Diff, Automatedon 02-17 RED CELL MORPH NORM C+C Normal NORM C C [facility] Comment on above: Performed By: #### L 100.0100, L500.2500 ####[facility] [address] [place], [address] PLT EST MOD DEC Normal ADEQ [facility] Comment on above: Performed By: #### L 100.0100, L500.2500 ####[facility] [address] [place], [address] SMEAR COMMENT SCANNED Normal [facility] Comment on above: Performed By: #### L 100.0100, L500.2500 ####[facility] [address] [place], [address] Carbon dioxide, total [Moles /volume] in Central venous bloodOrdered By: Handy Royal on 03-01-2025 CO2 [Moles/Vol] 26.7 mmol/L 21.0-32.0 [facility] Chloride assayOrdered By: Chanell Royal on 03-01-2025 Chloride [Moles/Vol] 101 mmol/L 98-108 [facility] Discharge Instructionon 02-17 Discharge Instruction Normal [facility] Eosinophil percentageOrdered By: Handy Royal on 03-01-2025 Eosinophils/100 WBC (Bld) 4.0 % 0-5 [facility] Erythrocyte distribution wid th ratioOrdered By: Handy Royal on 03-01-2025 Erythrocyte distribution width (RBC) [Ratio] 15.0 % High 11.6-14.6 [facility] Erythrocyte distribution wid th standard deviationOrdered By: Handy Royal on 03-01-2025 Erythrocyte distribution width (RBC) [Ratio] 54.9 fl High 35.1-43.9 [facility] Erythrocyte morphology asses smentOrdered By: Handy Royal on 03-01-2025 RBC morphology finding Nom (Bld) NORM C+C NORMAL NORM C&C [facility] Glomerular filtration rate ( GFR) estimation/1.73 sq m using serum, plasma, or whole bOrdered By: Handy Royal on 03-01-2025 GFR/1.73 sq M.predicted among non-blacks MDRD (S/P/Bld) [Vol rate/Area] 84 mL/min/{1.73_m2} >60 [facility] Comment on above: mL/min/1.73m2 CKD-EP I Creatinine Equation (2020) Hematocrit Auto (Bld) [Volum e fraction]Ordered By: Handy Royal on 03-01-2025 Hematocrit (Bld) [Volume fraction] 27.7 % Low 40-54 [facility] Hemoglobin measurementOrdere d By: Handy Royal on 03-01-2025 Hemoglobin (Bld) [Mass/Vol] 9.5 g/dL Low 13.0-16.5 [facility] Immature granulocytes/100 WB C Auto (Bld)Ordered By: Handy Royal on 03-01-2025 Immature granulocytes/100 WBC (Bld) 1.200 % High 0.0-0.9 [facility] Comment on above: IG% - Immature Granu locytes (promyelocytes, myelocytes and metamyelocytes) > 1% indicates that a LEFT SHIFT is Present. MCV (mean corpuscular volume ) determinationOrdered By: Handy Royal on 03-01-2025 MCV (RBC) [Entitic vol] 99.6 fL High 80-94 [facility] Mean corpuscular hemoglobin (MCH) determinationOrdered By: Handy Royal 03-01-2025 MCH (RBC) [Entitic mass] 34.2 pg High 27.0-32.0 [facility] Mean corpuscular hemoglobin concentration (MCHC) determinationOrdered By: Handy Royal on 03-01-2025 MCHC (RBC) [Mass/Vol] 34.3 g/dL 32-36 [facility] Mean platelet volume determi nationOrdered By: Handy Royal on 03-01-2025 Platelet mean volume (Bld) [Entitic vol] 9.7 fL 6.2-12.0 [facility] Monocyte percentageOrdered B y: Handy Royal on 03-01-2025 Monocytes/100 WBC (Bld) 25.5 % High 0-10 [facility] Neutrophil percentageOrdered By: Handy Royal on 03-01-2025 Neutrophils/100 WBC (Bld) 46.6 % Low 47-70 [facility] Nucleated red blood cell per centageOrdered By: Handy Royal on 03-01-2025 Nucleated RBC/100 WBC (Bld) [Ratio] 0 % 0-5 [facility] Platelet countOrdered By: Chanell Royal on 03-01-2025 Platelets (Bld) [#/Vol] 86 10*3/uL Low 150-450 [facility] Platelet estimateOrdered By: Handy Royal on 03-01-2025 Platelets LM Ql (Bld) MOD DEC ADEQ [facility] Potassium measurement (mass/ volume)Ordered By: Handy Royal on 03-01-2025 Potassium (Unsp spec) [Mass/Vol] 3.5 mmol/L 3.3-5.1 [facility] RBC Auto (Bld) [#/Vol]Ordere d By: Handy Royal on 03-01-2025 RBC (Bld) [#/Vol] 2.78 10*6/uL Low 4.6-6.2 [facility] Serum creatinine measurement (mass/volume)Ordered By: Handy Royal on 03-01-2025 Creatinine [Mass/Vol] 1.03 mg/dL 0.70-1.20 [facility] Serum glucose measurement (m ass/volume)Ordered By: Handy Royal on 03-01-2025 Glucose [Mass/Vol] 97 mg/dL 70-99 [facility] Serum or plasma calcium jesus urement (mass/volume)Ordered By: Handy Royal on 03-01-2025 Calcium [Mass/Vol] 8.5 mg/dL 7.6-11.0 [facility] Serum or plasma urea nitroge n measurement (mass/volume)Ordered By: Handy Royal on 03-01-2025 Urea nitrogen [Mass/Vol] 13 mg/dL 4-19 [facility] Sodium levelOrdered By: Nilesh Royal on 03-01-2025 Sodium [Moles/Vol] 135 mmol/L 133-145 [facility] White blood cell (WBC) count Ordered By: Handy Royal on 03-01-2025 WBC (Bld) [#/Vol] 2.5 10*3/uL Low 4.4-11.0 [facility] Basic Metabolic Profile (BMP )on 02-28-2025 BUN/CRE 15.4 RATIO Normal 10-20 [facility] Comment on above: Performed By: #### L 500.2500, L100.0100 ####[facility] [address] [place], [address] Calcium [Mass/Vol] 8.7 mg/dL Normal 7.6-11.0 [facility] Comment on above: Performed By: #### L 500.2500, L100.0100 ####[facility] [address] [place], [address] Chloride [Moles/Vol] 105 mmol/L Normal 98-108 [facility] Comment on above: Performed By: #### L 500.2500, L100.0100 ####[facility] [address] [place], [address] CO2 [Moles/Vol] 26.0 mmol/L Normal 21.0-32.0 [facility] Comment on above: Performed By: #### L 500.2500, L100.0100 ####[facility] [address] [place], [address] Creatinine [Mass/Vol] 1.10 mg/dL Normal 0.70-1.20 [facility] Comment on above: Performed By: #### L 500.2500, L100.0100 ####[facility] [address] [place], [address] ECRCL 50.42 ml/min Normal 50-250 [facility] Comment on above: Performed By: #### L 500.2500, L100.0100 ####[facility] [address] [place], [address] GAP 8 Normal 5-15 [facility] Comment on above: Performed By: #### L 500.2500, L100.0100 ####[facility] [address] [place], [address] GFR/1.73 sq M.predicted among non-blacks MDRD (S/P/Bld) [Vol rate/Area] 77 mL/min/{1.73_m2} Normal >60 [facility] Comment on above: Result Comment: mL/m in/1.73m2 CKD-EPI Creatinine Equation (2020) Performed By: #### L 500.2500, L100.0100 ####[facility] [address] [place], [address] Glucose [Mass/Vol] 96 mg/dL Normal 70-99 [facility] Comment on above: Performed By: #### L 500.2500, L100.0100 ####[facility] [address] [place], [address] Potassium [Moles/Vol] 3.8 mmol/L Normal 3.3-5.1 [facility] Comment on above: Performed By: #### L 500.2500, L100.0100 ####[facility] [address] [place], [address] Sodium [Moles/Vol] 138 mmol/L Normal 133-145 [facility] Comment on above: Performed By: #### L 500.2500, L100.0100 ####[facility] [address] [place], [address] Urea nitrogen [Mass/Vol] 17 mg/dL Normal 4-19 [facility] Comment on above: Performed By: #### L 500.2500, L100.0100 ####[facility] [address] [place], [address] Bedside Glucoseon 02-28-2025 FINGERSTICK GLU 94 mg/dL Normal 74-106 [facility] Comment on above: Result Comment: ARNALDO GEMENT OF PATIENT CARE PER NURSING PROTOCOL Performed By: #### L 501.080 ####[facility] [address] [place], [address] FINGERSTICK GLU 119 mg/dL High 74-106 [facility] Comment on above: Result Comment: ARNALDO GEMENT OF PATIENT CARE PER NURSING PROTOCOL Performed By: #### L 501.080 ####[facility] [address] [place], [address] CBC W/Diff, Automatedon 02-17 RED CELL MORPH NORM C+C Normal NORM C C [facility] Comment on above: Performed By: #### L 500.2500, L100.0100 ####[facility] [address] [place], [address] PLT EST MOD DEC Normal ADEQ [facility] Comment on above: Performed By: #### L 500.2500, L100.0100 ####[facility] [address] [place], [address] SMEAR COMMENT SCANNED Normal [facility] Comment on above: Performed By: #### L 500.2500, L100.0100 ####[facility] [address] [place], [address] Gl[facility] measurement at [facility] deOrdered By: Handy Royal on 02-28-2025 Glucose [Mass/Vol] 94 mg/dL 74-106 [facility] Comment on above: MANAGEMENT OF PATIEN T CARE PER NURSING PROTOCOL Basic Metabolic Profile (BMP )on 02-27-2025 BUN/CRE 17.6 RATIO Normal 10-20 [facility] Comment on above: Performed By: #### L 500.2500, L100.0100 ####[facility] [address] [place], [address] Calcium [Mass/Vol] 8.6 mg/dL Normal 7.6-11.0 [facility] Comment on above: Performed By: #### L 500.2500, L100.0100 ####[facility] [address] [place], [address] Chloride [Moles/Vol] 108 mmol/L Normal 98-108 [facility] Comment on above: Performed By: #### L 500.2500, L100.0100 ####[facility] [address] [place], [address] CO2 [Moles/Vol] 28.0 mmol/L Normal 21.0-32.0 [facility] Comment on above: Performed By: #### L 500.2500, L100.0100 ####[facility] [address] [place], [address] Creatinine [Mass/Vol] 1.43 mg/dL High 0.70-1.20 [facility] Comment on above: Performed By: #### L 500.2500, L100.0100 ####[facility] [address] [place], [address] ECRCL 38.78 ml/min Low 50-250 [facility] Comment on above: Performed By: #### L 500.2500, L100.0100 ####[facility] [address] [place], [address] GAP 7 Normal 5-15 [facility] Comment on above: Performed By: #### L 500.2500, L100.0100 ####[facility] [address] [place], [address] GFR/1.73 sq M.predicted among non-blacks MDRD (S/P/Bld) [Vol rate/Area] 56 mL/min/{1.73_m2} Low >60 [facility] Comment on above: Result Comment: mL/m in/1.73m2 CKD-EPI Creatinine Equation (2020) Performed By: #### L 500.2500, L100.0100 ####[facility] [address] [place], [address] Glucose [Mass/Vol] 106 mg/dL High 70-99 [facility] Comment on above: Performed By: #### L 500.2500, L100.0100 ####[facility] [address] [place], [address] Potassium [Moles/Vol] 4.3 mmol/L Normal 3.3-5.1 [facility] Comment on above: Performed By: #### L 500.2500, L100.0100 ####[facility] [address] [place], [address] Sodium [Moles/Vol] 143 mmol/L Normal 133-145 [facility] Comment on above: Performed By: #### L 500.2500, L100.0100 ####[facility] [address] [place], [address] Urea nitrogen [Mass/Vol] 25 mg/dL High 4-19 [facility] Comment on above: Performed By: #### L 500.2500, L100.0100 ####[facility] [address] [place], [address] CBC W/Diff, Automatedon 05-1 PLT EST SLT DEC Normal ADEQ [facility] Comment on above: Performed By: #### L 500.2500, L100.0100 ####[facility] [address] [place], [address] Basic Metabolic Profile (BMP )on 02-26-2025 BUN/CRE 14.9 RATIO Normal 10-20 [facility] Comment on above: Performed By: #### L 500.2500, L100.0100 ####[facility] [address] [place], [address] Calcium [Mass/Vol] 8.7 mg/dL Normal 7.6-11.0 [facility] Comment on above: Performed By: #### L 500.2500, L100.0100 ####[facility] [address] [place], [address] Chloride [Moles/Vol] 104 mmol/L Normal 98-108 [facility] Comment on above: Performed By: #### L 500.2500, L100.0100 ####[facility] [address] [place], [address] CO2 [Moles/Vol] 28.1 mmol/L Normal 21.0-32.0 [facility] Comment on above: Performed By: #### L 500.2500, L100.0100 ####[facility] [address] [place], [address] Creatinine [Mass/Vol] 1.67 mg/dL High 0.70-1.20 [facility] Comment on above: Performed By: #### L 500.2500, L100.0100 ####[facility] [address] [place], [address] ECRCL 33.21 ml/min Low 50-250 [facility] Comment on above: Performed By: #### L 500.2500, L100.0100 ####[facility] [address] [place], [address] GAP 11 Normal 5-15 [facility] Comment on above: Performed By: #### L 500.2500, L100.0100 ####[facility] [address] [place], [address] GFR/1.73 sq M.predicted among non-blacks MDRD (S/P/Bld) [Vol rate/Area] 47 mL/min/{1.73_m2} Low >60 [facility] Comment on above: Result Comment: mL/m in/1.73m2 CKD-EPI Creatinine Equation (2020) Performed By: #### L 500.2500, L100.0100 ####[facility] [address] [place], [address] Glucose [Mass/Vol] 158 mg/dL High 70-99 [facility] Comment on above: Performed By: #### L 500.2500, L100.0100 ####[facility] [address] [place], [address] Potassium [Moles/Vol] 3.6 mmol/L Normal 3.3-5.1 [facility] Comment on above: Performed By: #### L 500.2500, L100.0100 ####[facility] [address] [place], [address] Sodium [Moles/Vol] 143 mmol/L Normal 133-145 [facility] Comment on above: Performed By: #### L 500.2500, L100.0100 ####[facility] [address] [place], [address] Urea nitrogen [Mass/Vol] 25 mg/dL High 4-19 [facility] Comment on above: Performed By: #### L 500.2500, L100.0100 ####[facility] [address] [place], [address] CBC W/Diff, Automatedon 05-1 0-2024 Absolute Lymph 0.20 X10 3/uL Low 0.83-4.51 [facility] Comment on above: Performed By: #### L 500.2500, L100.0100 ####[facility] [address] [place], [address] Absolute Neut 5.6 X10 3/uL Normal 2.0-7.7 [facility] Comment on above: Performed By: #### L 500.2500, L100.0100 ####[facility] [address] [place], [address] Basophils/100 WBC (Bld) 0.2 % Normal 0-1 [facility] Comment on above: Performed By: #### L 500.2500, L100.0100 ####[facility] [address] [place], [address] Eosinophils/100 WBC (Bld) 0.0 % Normal 0-5 [facility] Comment on above: Performed By: #### L 500.2500, L100.0100 ####[facility] [address] [place], [address] Erythrocyte distribution width (RBC) [Ratio] 16.0 % High 11.6-14.6 [facility] Comment on above: Performed By: #### L 500.2500, L100.0100 ####[facility] [address] [place], [address] Hematocrit (Bld) [Volume fraction] 33.5 % Low 40-54 [facility] Comment on above: Performed By: #### L 500.2500, L100.0100 ####[facility] [address] [place], [address] Hemoglobin (Bld) [Mass/Vol] 11.5 g/dL Low 13.0-16.5 [facility] Comment on above: Performed By: #### L 500.2500, L100.0100 ####[facility] [address] [place], [address] IG% 0.200 Normal 0.0-0.9 [facility] Comment on above: Result Comment: IG% - Immature Granulocytes (promyelocytes, myelocytes andmetamyelocytes) > 1% indicates that a LEFT SHIFT is Present. Performed By: #### L 500.2500, L100.0100 ####[facility] [address] [place], [address] Lymphocytes/100 WBC (Bld) 3.2 % Low 19-41 [facility] Comment on above: Performed By: #### L 500.2500, L100.0100 ####[facility] [address] [place], [address] MCH (RBC) [Entitic mass] 33.7 pg High 27.0-32.0 [facility] Comment on above: Performed By: #### L 500.2500, L100.0100 ####[facility] [address] [place], [address] MCHC (RBC) [Mass/Vol] 34.3 g/dL Normal 32-36 [facility] Comment on above: Performed By: #### L 500.2500, L100.0100 ####[facility] [address] [place], [address] MCV (RBC) [Entitic vol] 98.2 fL High 80-94 [facility] Comment on above: Performed By: #### L 500.2500, L100.0100 ####[facility] [address] [place], [address] Monocytes/100 WBC (Bld) 8.7 % Normal 0-10 [facility] Comment on above: Performed By: #### L 500.2500, L100.0100 ####[facility] [address] [place], [address] Neutrophils/100 WBC (Bld) 87.7 % High 47-70 [facility] Comment on above: Performed By: #### L 500.2500, L100.0100 ####[facility] [address] [place], [address] Nucleated RBC (Bld) [#/Vol] 0 10*3/uL Normal 0-5 [facility] Comment on above: Performed By: #### L 500.2500, L100.0100 ####[facility] [address] [place], [address] Platelet mean volume (Bld) [Entitic vol] 9.7 fL Normal 6.2-12.0 [facility] Comment on above: Performed By: #### L 500.2500, L100.0100 ####[facility] [address] [place], [address] Platelets (Bld) [#/Vol] 102 10*3/uL Low 150-450 [facility] Comment on above: Performed By: #### L 500.2500, L100.0100 ####[facility] [address] [place], [address] RBC (Bld) [#/Vol] 3.41 10*6/uL Low 4.6-6.2 [facility] Comment on above: Performed By: #### L 500.2500, L100.0100 ####[facility] [address] [place], [address] RDW SD 55.8 fl High 35.1-43.9 [facility] Comment on above: Performed By: #### L 500.2500, L100.0100 ####[facility] [address] [place], [address] WBC (Bld) [#/Vol] 6.3 10*3/uL Normal 4.4-11.0 [facility] Comment on above: Performed By: #### L 500.2500, L100.0100 ####[facility] [address] [place], [address] Abdomen Single View (Portabl e)on 02-25-2025 Abdomen Single View (Portable) Normal [facility] Basic Metabolic Profile (BMP )on 02-25-2025 BUN/CRE 13.7 RATIO Normal 10-20 [facility] Comment on above: Performed By: #### L 100.0100, L500.2500 ####[facility] [address] [place], [address] Calcium [Mass/Vol] 9.6 mg/dL Normal 7.6-11.0 [facility] Comment on above: Performed By: #### L 100.0100, L500.2500 ####[facility] [address] [place], [address] Chloride [Moles/Vol] 99 mmol/L Normal 98-108 [facility] Comment on above: Performed By: #### L 100.0100, L500.2500 ####[facility] [address] [place], [address] CO2 [Moles/Vol] 29.5 mmol/L Normal 21.0-32.0 [facility] Comment on above: Performed By: #### L 100.0100, L500.2500 ####[facility] [address] [place], [address] Creatinine [Mass/Vol] 1.51 mg/dL High 0.70-1.20 [facility] Comment on above: Performed By: #### L 100.0100, L500.2500 ####[facility] [address] [place], [address] ECRCL 36.73 ml/min Low 50-250 [facility] Comment on above: Performed By: #### L 100.0100, L500.2500 ####[facility] [address] [place], [address] GAP 14 Normal 5-15 [facility] Comment on above: Performed By: #### L 100.0100, L500.2500 ####[facility] [address] [place], [address] GFR/1.73 sq M.predicted among non-blacks MDRD (S/P/Bld) [Vol rate/Area] 53 mL/min/{1.73_m2} Low >60 [facility] Comment on above: Result Comment: mL/m in/1.73m2 CKD-EPI Creatinine Equation (2020) Performed By: #### L 100.0100, L500.2500 ####[facility] [address] [place], [address] Glucose [Mass/Vol] 121 mg/dL High 70-99 [facility] Comment on above: Performed By: #### L 100.0100, L500.2500 ####[facility] [address] [place], [address] Potassium [Moles/Vol] 3.2 mmol/L Low 3.3-5.1 [facility] Comment on above: Performed By: #### L 100.0100, L500.2500 ####[facility] [address] [place], [address] Sodium [Moles/Vol] 142 mmol/L Normal 133-145 [facility] Comment on above: Performed By: #### L 100.0100, L500.2500 ####[facility] [address] [place], [address] Urea nitrogen [Mass/Vol] 21 mg/dL High 4-19 [facility] Comment on above: Performed By: #### L 100.0100, L500.2500 ####[facility] [address] [place], [address] CBC W/Diff, Automatedon 05-0 9-2024 Absolute Lymph 0.51 X10 3/uL Low 0.83-4.51 [facility] Comment on above: Performed By: #### L 100.0100, L500.2500 ####[facility] [address] [place], [address] Absolute Neut 6.7 X10 3/uL Normal 2.0-7.7 [facility] Comment on above: Performed By: #### L 100.0100, L500.2500 ####[facility] [address] [place], [address] Basophils/100 WBC (Bld) 0.4 % Normal 0-1 [facility] Comment on above: Performed By: #### L 100.0100, L500.2500 ####[facility] [address] [place], [address] Eosinophils/100 WBC (Bld) 0.1 % Normal 0-5 [facility] Comment on above: Performed By: #### L 100.0100, L500.2500 ####[facility] [address] [place], [address] Erythrocyte distribution width (RBC) [Ratio] 15.2 % High 11.6-14.6 [facility] Comment on above: Performed By: #### L 100.0100, L500.2500 ####[facility] [address] [place], [address] Hematocrit (Bld) [Volume fraction] 35.7 % Low 40-54 [facility] Comment on above: Performed By: #### L 100.0100, L500.2500 ####[facility] [address] [place], [address] Hemoglobin (Bld) [Mass/Vol] 12.5 g/dL Low 13.0-16.5 [facility] Comment on above: Performed By: #### L 100.0100, L500.2500 ####[facility] [address] [place], [address] IG% 0.500 Normal 0.0-0.9 [facility] Comment on above: Result Comment: IG% - Immature Granulocytes (promyelocytes, myelocytes andmetamyelocytes) > 1% indicates that a LEFT SHIFT is Present. Performed By: #### L 100.0100, L500.2500 ####[facility] [address] [place], [address] Lymphocytes/100 WBC (Bld) 6.2 % Low 19-41 [facility] Comment on above: Performed By: #### L 100.0100, L500.2500 ####[facility] [address] [place], [address] MCH (RBC) [Entitic mass] 33.8 pg High 27.0-32.0 [facility] Comment on above: Performed By: #### L 100.0100, L500.2500 ####[facility] [address] [place], [address] MCHC (RBC) [Mass/Vol] 35.0 g/dL Normal 32-36 [facility] Comment on above: Performed By: #### L 100.0100, L500.2500 ####[facility] [address] [place], [address] MCV (RBC) [Entitic vol] 96.5 fL High 80-94 [facility] Comment on above: Performed By: #### L 100.0100, L500.2500 ####[facility] [address] [place], [address] Monocytes/100 WBC (Bld) 11.9 % High 0-10 [facility] Comment on above: Performed By: #### L 100.0100, L500.2500 ####[facility] [address] [place], [address] Neutrophils/100 WBC (Bld) 80.9 % High 47-70 [facility] Comment on above: Performed By: #### L 100.0100, L500.2500 ####[facility] [address] [place], [address] Nucleated RBC (Bld) [#/Vol] 0 10*3/uL Normal 0-5 [facility] Comment on above: Performed By: #### L 100.0100, L500.2500 ####[facility] [address] [place], [address] Platelet mean volume (Bld) [Entitic vol] 9.4 fL Normal 6.2-12.0 [facility] Comment on above: Performed By: #### L 100.0100, L500.2500 ####[facility] [address] [place], [address] Platelets (Bld) [#/Vol] 113 10*3/uL Low 150-450 [facility] Comment on above: Performed By: #### L 100.0100, L500.2500 ####[facility] [address] [place], [address] RBC (Bld) [#/Vol] 3.70 10*6/uL Low 4.6-6.2 [facility] Comment on above: Performed By: #### L 100.0100, L500.2500 ####[facility] [address] [place], [address] RDW SD 52.5 fl High 35.1-43.9 [facility] Comment on above: Performed By: #### L 100.0100, L500.2500 ####[facility] [address] [place], [address] WBC (Bld) [#/Vol] 8.3 10*3/uL Normal 4.4-11.0 [facility] Comment on above: Performed By: #### L 100.0100, L500.2500 ####[facility] [address] [place], [address] MR/POSTOP.ANEon 02-25-2025 MR/POSTOP.ANE Normal [facility] MR/DVYJLYDU6cw 02-25-2025 MR/POSTOPAN2 Normal [facility] Operative Reporton Operative Report Normal [facility] Small Bowel Series Onlyon Small Bowel Series Only Normal [facility] Abdomen Single View (Portabl e)on 02-24-2025 Abdomen Single View (Portable) Normal [facility] Abdomen/Pel W ORAL Cont Only on 02-24-2025 Abdomen/Pel W ORAL Cont Only Normal [facility] Absolute lymphocyte countOrd ered By: Gwyn Esquivel on 02-24-2025 Lymphocytes Auto (Unsp spec) [#/Vol] 0.35 10*3/uL Low 0.83-4.51 [facility] Absolute neutrophil countOrd ered By: Gwyn Esquivel on 02-24-2025 Neutrophils (Bld) [#/Vol] 6.6 10*3/uL 2.0-7.7 [facility] Anion gap in Serum or Plasma Ordered By: Gwyn Esquivel on 02-24-2025 Anion gap [Moles/Vol] 12 mmol/L 5-15 [facility] Automated lymphocyte count a s percentage of total leukocytesOrdered By: Gwyn Esquivel on 02-24-2025 Lymphocytes/100 WBC Auto (Unsp spec) 4.5 % Low 19-41 [facility] BUN/creatinine ratioOrdered By: Gwyn Esquivel on 02-24-2025 Urea nitrogen/Creatinine [Mass ratio] 12.2 mg/mg 10-20 [facility] Basophil percentageOrdered B y: Gwyn Esquivel on 02-24-2025 Basophils/100 WBC (Bld) 0.4 % 0-1 [facility] Bilirubin Test strip Ql (U)O rdered By: Handy Royal on 02-24-2025 Bilirubin Ql (U) Negative Negative [facility] Bilirubin, totalOrdered By: Gwyn Esquivel on 02-24-2025 Bilirubin [Mass/Vol] 0.72 mg/dL 0.00-1.30 [facility] CBC W/Diff, Automatedon Absolute Lymph 0.35 X10 3/uL Low 0.83-4.51 [facility] Comment on above: Performed By: #### L 500.4050, L501.2450, L100.0100 ####[facility] [address] [place], [address] Absolute Neut 6.6 X10 3/uL Normal 2.0-7.7 [facility] Comment on above: Performed By: #### L 500.4050, L501.2450, L100.0100 ####[facility] [address] [place], [address] Basophils/100 WBC (Bld) 0.4 % Normal 0-1 [facility] Comment on above: Performed By: #### L 500.4050, L501.2450, L100.0100 ####[facility] [address] [place], [address] Eosinophils/100 WBC (Bld) 0.1 % Normal 0-5 [facility] Comment on above: Performed By: #### L 500.4050, L501.2450, L100.0100 ####[facility] [address] [place], [address] Erythrocyte distribution width (RBC) [Ratio] 14.9 % High 11.6-14.6 [facility] Comment on above: Performed By: #### L 500.4050, L501.2450, L100.0100 ####[facility] [address] [place], [address] Hematocrit (Bld) [Volume fraction] 35.1 % Low 40-54 [facility] Comment on above: Performed By: #### L 500.4050, L501.2450, L100.0100 ####[facility] [address] [place], [address] Hemoglobin (Bld) [Mass/Vol] 12.6 g/dL Low 13.0-16.5 [facility] Comment on above: Performed By: #### L 500.4050, L501.2450, L100.0100 ####[facility] [address] [place], [address] IG% 0.400 Normal 0.0-0.9 [facility] Comment on above: Result Comment: IG% - Immature Granulocytes (promyelocytes, myelocytes andmetamyelocytes) > 1% indicates that a LEFT SHIFT is Present. Performed By: #### L 500.4050, L501.2450, L100.0100 ####[facility] [address] [place], [address] Lymphocytes/100 WBC (Bld) 4.5 % Low 19-41 [facility] Comment on above: Performed By: #### L 500.4050, L501.2450, L100.0100 ####[facility] [address] [place], [address] MCH (RBC) [Entitic mass] 33.4 pg High 27.0-32.0 [facility] Comment on above: Performed By: #### L 500.4050, L501.2450, L100.0100 ####[facility] [address] [place], [address] MCHC (RBC) [Mass/Vol] 35.9 g/dL Normal 32-36 [facility] Comment on above: Performed By: #### L 500.4050, L501.2450, L100.0100 ####[facility] [address] [place], [address] MCV (RBC) [Entitic vol] 93.1 fL Normal 80-94 [facility] Comment on above: Performed By: #### L 500.4050, L501.2450, L100.0100 ####[facility] [address] [place], [address] Monocytes/100 WBC (Bld) 9.9 % Normal 0-10 [facility] Comment on above: Performed By: #### L 500.4050, L501.2450, L100.0100 ####[facility] [address] [place], [address] Neutrophils/100 WBC (Bld) 84.7 % High 47-70 [facility] Comment on above: Performed By: #### L 500.4050, L501.2450, L100.0100 ####[facility] [address] [place], [address] Nucleated RBC (Bld) [#/Vol] 0 10*3/uL Normal 0-5 [facility] Comment on above: Performed By: #### L 500.4050, L501.2450, L100.0100 ####[facility] [address] [place], [address] Platelet mean volume (Bld) [Entitic vol] 9.5 fL Normal 6.2-12.0 [facility] Comment on above: Performed By: #### L 500.4050, L501.2450, L100.0100 ####[facility] [address] [place], [address] Platelets (Bld) [#/Vol] 111 10*3/uL Low 150-450 [facility] Comment on above: Performed By: #### L 500.4050, L501.2450, L100.0100 ####[facility] [address] [place], [address] RBC (Bld) [#/Vol] 3.77 10*6/uL Low 4.6-6.2 [facility] Comment on above: Performed By: #### L 500.4050, L501.2450, L100.0100 ####[facility] [address] [place], [address] RDW SD 49.7 fl High 35.1-43.9 [facility] Comment on above: Performed By: #### L 500.4050, L501.2450, L100.0100 ####[facility] [address] [place], [address] WBC (Bld) [#/Vol] 7.8 10*3/uL Normal 4.4-11.0 [facility] Comment on above: Performed By: #### L 500.4050, L501.2450, L100.0100 ####[facility] [address] [place], [address] Calcium oxalate crystals det ection in urine sediment by light microscopyOrdered By: Handy Royal on 02-24-2025 Calcium oxalate crystals LM Ql (Urine sed) 1+ /hpf [facility] Carbon dioxide, total [Moles /volume] in Central venous bloodOrdered By: Gwyn Esquivel on 02-24-2025 CO2 [Moles/Vol] 27.3 mmol/L 21.0-32.0 [facility] Chloride assayOrdered By: Ben Esquivel on 02-24-2025 Chloride [Moles/Vol] 98 mmol/L 98-108 [facility] Comprehensive Metabolic Prof ilon 02-24-2025 Albumin [Mass/Vol] 3.8 g/dL Normal 3.5-5.0 [facility] Comment on above: Performed By: #### L 500.4050, L501.2450, L100.0100 ####[facility] [address] [place], [address] Albumin/Globulin [Mass ratio] 1.1 {ratio} Normal 0.9-2.4 [facility] Comment on above: Performed By: #### L 500.4050, L501.2450, L100.0100 ####[facility] [address] [place], [address] ALK PHOS 128 U/L Normal 40-129 [facility] Comment on above: Performed By: #### L 500.4050, L501.2450, L100.0100 ####[facility] [address] [place], [address] ALT [Catalytic activity/Vol] 16 U/L Normal <=46 [facility] Comment on above: Performed By: #### L 500.4050, L501.2450, L100.0100 ####[facility] [address] [place], [address] AST [Catalytic activity/Vol] 35 U/L Normal <=37 [facility] Comment on above: Performed By: #### L 500.4050, L501.2450, L100.0100 ####[facility] [address] [place], [address] Bilirubin [Mass/Vol] 0.72 mg/dL Normal 0.00-1.30 [facility] Comment on above: Performed By: #### L 500.4050, L501.2450, L100.0100 ####[facility] [address] [place], [address] BUN/CRE 12.2 RATIO Normal 10-20 [facility] Comment on above: Performed By: #### L 500.4050, L501.2450, L100.0100 ####[facility] [address] [place], [address] Calcium [Mass/Vol] 9.8 mg/dL Normal 7.6-11.0 [facility] Comment on above: Performed By: #### L 500.4050, L501.2450, L100.0100 ####[facility] [address] [place], [address] Chloride [Moles/Vol] 98 mmol/L Normal 98-108 [facility] Comment on above: Performed By: #### L 500.4050, L501.2450, L100.0100 ####[facility] [address] [place], [address] CO2 [Moles/Vol] 27.3 mmol/L Normal 21.0-32.0 [facility] Comment on above: Performed By: #### L 500.4050, L501.2450, L100.0100 ####[facility] [address] [place], [address] Creatinine [Mass/Vol] 1.39 mg/dL High 0.70-1.20 [facility] Comment on above: Performed By: #### L 500.4050, L501.2450, L100.0100 ####[facility] [address] [place], [address] ECRCL 39.01 ml/min Low 50-250 [facility] Comment on above: Performed By: #### L 500.4050, L501.2450, L100.0100 ####[facility] [address] [place], [address] GAP 12 Normal 5-15 [facility] Comment on above: Performed By: #### L 500.4050, L501.2450, L100.0100 ####[facility] [address] [place], [address] GFR/1.73 sq M.predicted among non-blacks MDRD (S/P/Bld) [Vol rate/Area] 58 mL/min/{1.73_m2} Low >60 [facility] Comment on above: Result Comment: mL/m in/1.73m2 CKD-EPI Creatinine Equation (2020) Performed By: #### L 500.4050, L501.2450, L100.0100 ####[facility] [address] [place], [address] Globulin (S) [Mass/Vol] 3.3 g/dL Normal 2.2-4.2 [facility] Comment on above: Performed By: #### L 500.4050, L501.2450, L100.0100 ####[facility] [address] [place], [address] Glucose [Mass/Vol] 112 mg/dL High 70-99 [facility] Comment on above: Performed By: #### L 500.4050, L501.2450, L100.0100 ####[facility] [address] [place], [address] Potassium [Moles/Vol] 3.3 mmol/L Normal 3.3-5.1 [facility] Comment on above: Performed By: #### L 500.4050, L501.2450, L100.0100 ####[facility] [address] [place], [address] Sodium [Moles/Vol] 138 mmol/L Normal 133-145 [facility] Comment on above: Performed By: #### L 500.4050, L501.2450, L100.0100 ####[facility] [address] [place], [address] T PROT 7.1 g/dL Normal 5.9-8.4 [facility] Comment on above: Performed By: #### L 500.4050, L501.2450, L100.0100 ####[facility] [address] [place], [address] Urea nitrogen [Mass/Vol] 17 mg/dL Normal 4-19 [facility] Comment on above: Performed By: #### L 500.4050, L501.2450, L100.0100 ####[facility] [address] [place], [address] Consultation - Surgicalon Consultation - Surgical Normal [facility] Emergency Department Summary on 02-24-2025 Emergency Department Summary Normal [facility] Eosinophil percentageOrdered By: Gwyn Esquivel on 02-24-2025 Eosinophils/100 WBC (Bld) 0.1 % 0-5 [facility] Erythrocyte distribution wid th ratioOrdered By: Gwyn Esquivel on 02-24-2025 Erythrocyte distribution width (RBC) [Ratio] 14.9 % High 11.6-14.6 [facility] Erythrocyte distribution wid th standard deviationOrdered By: Gwyn Esquivel on 02-24-2025 Erythrocyte distribution width (RBC) [Ratio] 49.7 fl High 35.1-43.9 [facility] Glomerular filtration rate ( GFR) estimation/1.73 sq m using serum, plasma, or whole bOrdered By: Gwyn Esquivel on 02-24-2025 GFR/1.73 sq M.predicted among non-blacks MDRD (S/P/Bld) [Vol rate/Area] 58 mL/min/{1.73_m2} Low >60 [facility] Comment on above: mL/min/1.73m2 CKD-EP I Creatinine Equation (2020) H AND P Exam - Hospitaliston 02-24-2025 H&P Exam - Hospitalist Normal [facility] Hematocrit Auto (Bld) [Volum e fraction]Ordered By: Gwyn Esquivel on 02-24-2025 Hematocrit (Bld) [Volume fraction] 35.1 % Low 40-54 [facility] Hemoglobin measurementOrdere d By: Gwyn Esquivel on 02-24-2025 Hemoglobin (Bld) [Mass/Vol] 12.6 g/dL Low 13.0-16.5 [facility] Immature granulocytes/100 WB C Auto (Bld)Ordered By: Gwyn Esquivel on 02-24-2025 Immature granulocytes/100 WBC (Bld) 0.400 % 0.0-0.9 [facility] Comment on above: IG% - Immature Granu locytes (promyelocytes, myelocytes and metamyelocytes) > 1% indicates that a LEFT SHIFT is Present. Ketones Test strip Ql (U)Ord ered By: Handy Royal on 02-24-2025 Ketones Ql (U) 15 mg/dl High Negative [facility] Laboratory - Chemistry and C hemistry - challengeOrdered By: Gwyn Esquivel on 02-24-2025 AST [Catalytic activity/Vol] 35 U/L <38 [facility] Lipaseon 02-24-2025 Lipase [Catalytic activity/Vol] 109 U/L High 13-75 [facility] Comment on above: Result Comment: Sofie flaherty note:LIPASE revised reference range effective 23.New Lipase methodology. Expected to produce lower valuesthan the previous assay method.NEW Reference Range: 13 - 75 U/L Performed By: #### L 500.4050, L501.2450, L100.0100 ####[facility] [address] [place], [place], [id number] Lipase measurementOrdered By : Gwyn Esuqivel on 02-24-2025 Lipase [Catalytic activity/Vol] 109 U/L High 13-75 [facility] Comment on above: Please note:LIPASE r evised reference range effective 23. New Lipase methodology. Expected to produce lower values than the previous assay method. NEW Reference Range: 13 - 75 U/L MCV (mean corpuscular volume ) determinationOrdered By: Gwyn Esquivel on 02-24-2025 MCV (RBC) [Entitic vol] 93.1 fL 80-94 [facility] Magnesiumon 02-24-2025 Magnesium [Mass/Vol] 2.1 mg/dL Normal 1.5-2.2 [facility] Comment on above: Performed By: #### L 501.2300, L501.5200 ####[facility] [address] [place], [place], [id number] Magnesium measurement (mass/ volume)Ordered By: Handy Royal on 02-24-2025 Magnesium (Unsp spec) [Mass/Vol] 2.1 mg/dL 1.5-2.2 [facility] Mean corpuscular hemoglobin (MCH) determinationOrdered By: Gwyn Esquivel on 02-24-2025 MCH (RBC) [Entitic mass] 33.4 pg High 27.0-32.0 [facility] Mean corpuscular hemoglobin concentration (MCHC) determinationOrdered By: Gwyn Esquivel on 02-24-2025 MCHC (RBC) [Mass/Vol] 35.9 g/dL 32-36 [facility] Mean platelet volume determi nationOrdered By: Gwyn Esquivel on 02-24-2025 Platelet mean volume (Bld) [Entitic vol] 9.5 fL 6.2-12.0 [facility] Microscopic analysis of urin e for red blood cells (RBC)Ordered By: Handy Royal on 02-24-2025 Microscopic analysis of urine for red blood cells (RBC) 25-50 SEEN /hpf 0-5 [facility] Monocyte percentageOrdered B y: Gwyn Esquivel on 02-24-2025 Monocytes/100 WBC (Bld) 9.9 % 0-10 [facility] Mucus LM Ql (Urine sed)Order ed By: Handy Royal on 02-24-2025 Mucus Ql (Urine sed) 0 SEEN /hpf [facility] Neutrophil percentageOrdered By: Gwyn Esquivel on 02-24-2025 Neutrophils/100 WBC (Bld) 84.7 % High 47-70 [facility] Nitrite Test strip Ql (U)Ord ered By: Handy Royal on 02-24-2025 Nitrite Ql (U) Negative Negative [facility] Nucleated red blood cell per centageOrdered By: Gwyn Esquivel on 02-24-2025 Nucleated RBC/100 WBC (Bld) [Ratio] 0 % 0-5 [facility] Phosphoruson 02-24-2025 Phosphate [Mass/Vol] 2.7 mg/dL Normal 2.7-4.5 [facility] Comment on above: Performed By: #### L 501.2300, L501.5200 ####[facility] [address] [place], [place], [id number] Platelet countOrdered By: Ben Esquivel on 02-24-2025 Platelets (Bld) [#/Vol] 111 10*3/uL Low 150-450 [facility] Potassium measurement (mass/ volume)Ordered By: Gwyn Esquivel on 02-24-2025 Potassium (Unsp spec) [Mass/Vol] 3.3 mmol/L 3.3-5.1 [facility] Protein Test strip Ql (U)Ord ered By: Handy Royal on 02-24-2025 Protein Ql (U) 500 mg/dl High Negative [facility] RBC Auto (Bld) [#/Vol]Ordere d By: Gwyn Esquivel on 02-24-2025 RBC (Bld) [#/Vol] 3.77 10*6/uL Low 4.6-6.2 [facility] Serum creatinine measurement (mass/volume)Ordered By: Gwyn Esquivel on 02-24-2025 Creatinine [Mass/Vol] 1.39 mg/dL High 0.70-1.20 [facility] Serum globulin measurementOr dered By: Gwyn Esquivel on 02-24-2025 Globulin (S) [Mass/Vol] 3.3 g/dL 2.2-4.2 [facility] Serum glucose measurement (m ass/volume)Ordered By: Gwyn Esquivel on 02-24-2025 Glucose [Mass/Vol] 112 mg/dL High 70-99 [facility] Serum or plasma alanine galindo otransferase (ALT) measurementOrdered By: Gwyn Esquivel on 02-24-2025 ALT [Catalytic activity/Vol] 16 U/L <47 [facility] Serum or plasma albumin jesus urement (mass/volume)Ordered By: Gwyn Esquivel on 02-24-2025 Albumin [Mass/Vol] 3.8 g/dL 3.5-5.0 [facility] Serum or plasma albumin/glob ulin mass ratioOrdered By: Gwyn Esquivel on 02-24-2025 Albumin/Globulin [Mass ratio] 1.1 {ratio} 0.9-2.4 [facility] Serum or plasma alkaline cesar sphatase measurementOrdered By: Gwyn Esquivel on 02-24-2025 ALP [Catalytic activity/Vol] 128 U/L 40-129 [facility] Serum or plasma calcium jesus urement (mass/volume)Ordered By: Gwyn Esquivel on 02-24-2025 Calcium [Mass/Vol] 9.8 mg/dL 7.6-11.0 [facility] Serum or plasma urea nitroge n measurement (mass/volume)Ordered By: Gwyn Esquivel on 02-24-2025 Urea nitrogen [Mass/Vol] 17 mg/dL 4-19 [facility] Sodium levelOrdered By: Gwyn Esquivel on 02-24-2025 Sodium [Moles/Vol] 138 mmol/L 133-145 [facility] Squamous epithelial cells de tection in urine sediment by light microscopyOrdered By: Handy Royal on 02-24-2025 Epithelial cells.squamous LM Ql (Urine sed) 0 SEEN /hpf 0-5 [facility] Total proteinOrdered By: Trip Esquivel on 02-24-2025 Protein [Mass/Vol] 7.1 g/dL 5.9-8.4 [facility] Urinalysis, Completeon 02-24 BACTERIA 2+ /hpf Normal None Seen [facility] Comment on above: Order Comment: Micro scopic field is filled. Other elements may beobscured.CLEAN CATCH Performed By: #### L 400.0001 ####[facility] [address] [facility] [address] CA OX CRYSTAL 1+ /hpf Normal [facility] Comment on above: Order Comment: Micro scopic field is filled. Other elements may beobscured.CLEAN CATCH Performed By: #### L 400.0001 ####[facility] [address] [place], [address] RBC 25-50 SEEN Normal 0-[address] [place] [address] Comment on above: Order Comment: Micro scopic field is filled. Other elements may beobscured.CLEAN CATCH Performed By: #### L 400.0001 ####[facility] [address] [place], [address] WBC >100 SEEN Normal 0-[address] [place] [address] Comment on above: Order Comment: Micro scopic field is filled. Other elements may beobscured.CLEAN CATCH Result Comment: Micr oscopic field is filled. Other elements may beobscured. Performed By: #### L 400.0001 ####[facility] [address] [place], [address] EPI,SQUAMOUS 0 SEEN Normal 0-5 [facility] Comment on above: Order Comment: Micro scopic field is filled. Other elements may beobscured.CLEAN CATCH Performed By: #### L 400.0001 ####[facility] [address] [place], [address] Mucus Ql (Urine sed) 0 SEEN Normal [facility] Comment on above: Order Comment: Micro scopic field is filled. Other elements may beobscured.CLEAN CATCH Performed By: #### L 400.0001 ####[facility] [address] [place], [address] Urine clarityOrdered By: Nico Royal on 02-24-2025 Clarity (U) Turbid Clear [facility] Urine color determinationOrd ered By: Handy Royal on 02-24-2025 Color (U) Yellow Yellow [facility] Urine glucose detectionOrder ed By: Handy Royal on 02-24-2025 Glucose Ql (U) Normal mg/dl Normal [facility] Urine leukocyte esterase det ection by dipstickOrdered By: Handy Royal on 02-24-2025 Leukocyte esterase Test strip Ql (U) 500 /ul High Negative [facility] Urine pHOrdered By: Handy oRyal on 02-24-2025 pH (U) 6.0 [pH] 5.0 - 8.0 [facility] Urine sediment bacteria coun t by microscopy (number/high power field)Ordered By: Handy Royal on 02-24-2025 Bacteria LM.HPF (Urine sed) [#/Area] 2 /[HPF] None Seen [facility] Urine specific gravity measu rementOrdered By: Handy Royal on 02-24-2025 Specific gravity (U) [Rel density] 1.025 1.002-1.03 0 [facility] Urine urobilinogen measureme ntOrdered By: Handy Royal on 02-24-2025 Urobilinogen Ql (U) Normal mg/dl Normal [facility] White blood cell (WBC) count Ordered By: Gwyn Esquivel on 02-24-2025 WBC (Bld) [#/Vol] 7.8 10*3/uL 4.4-11.0 [facility] White blood cell countOrdere d By: Handy Royal on 02-24-2025 White blood cell count >100 SEEN /hpf 0-5 [facility] Comment on above: Microscopic field is filled. Other elements may be obscured. Urine Cultureon 02-16-2025 URC Normal [facility] Comment on above: Performed By: #### L 400.0001, M100.2200 ####[facility] [address] [place], [place], [id number] Performed By: #### M 100.2200, L400.0001 ####[facility] [address] [place], [place], [id number] Carcinoembryonic Antigenon 0 02-15-2025 CEA 2.9 ng/mL Normal 0.0-4.7 [facility] Comment on above: Order Comment: ADD O N FROM EARLIER TODAY Result Comment: Nons mokers <3.9 Smokers <5.6[employer] Electrochemiluminescence Immunoassay(ECLIA)Values obtained with different assay methods or kitscannot be used interchangeably. Results cannot beinterpreted as absolute evidence of the presence orabsence of malignant disease.Performed at: [facility] [employer] [id number] Director: Javid Diehl PhD, Phone: [phone] Performed By: #### L 6042.8587 ####[facility] [address] [place], [place], [id number] Absolute lymphocyte countOrd ered By: Guy Ho on 02-14-2025 Lymphocytes Auto (Unsp spec) [#/Vol] 0.45 10*3/uL Low 0.83-4.51 [facility] Absolute neutrophil countOrd ered By: Guy Ho on 02-14-2025 Neutrophils (Bld) [#/Vol] 3.1 10*3/uL 2.0-7.7 [facility] Anion gap in Serum or Plasma Ordered By: Guy Ho on 02-14-2025 Anion gap [Moles/Vol] 9 mmol/L 5-15 [facility] Automated lymphocyte count a s percentage of total leukocytesOrdered By: Guy Ho on 02-14-2025 Lymphocytes/100 WBC Auto (Unsp spec) 9.5 % Low 19-41 [facility] BUN/creatinine ratioOrdered By: Guy Ho on 02-14-2025 Urea nitrogen/Creatinine [Mass ratio] 13.3 mg/mg 10-20 [facility] Basophil percentageOrdered B y: Guy Ho on 02-14-2025 Basophils/100 WBC (Bld) 1.1 % High 0-1 [facility] Bilirubin Test strip Ql (U)O rdered By: Guy Ho on 02-14-2025 Bilirubin Ql (U) Negative Negative [facility] Bilirubin, totalOrdered By: Guy Ho on 02-14-2025 Bilirubin [Mass/Vol] 0.69 mg/dL 0.00-1.30 [facility] CBC W/Diff, Automatedon 01-19 Absolute Lymph 0.45 X10 3/uL Low 0.83-4.51 [facility] Comment on above: Performed By: #### L 100.0100, L501.5200, L500.4050 ####[facility] [address] [place], [address] Absolute Neut 3.1 X10 3/uL Normal 2.0-7.7 [facility] Comment on above: Performed By: #### L 100.0100, L501.5200, L500.4050 ####[facility] [address] [place], [address] Basophils/100 WBC (Bld) 1.1 % High 0-1 [facility] Comment on above: Performed By: #### L 100.0100, L501.5200, L500.4050 ####[facility] [address] [place], [address] Eosinophils/100 WBC (Bld) 1.3 % Normal 0-5 [facility] Comment on above: Performed By: #### L 100.0100, L501.5200, L500.4050 ####[facility] [address] [place], [address] Erythrocyte distribution width (RBC) [Ratio] 15.3 % High 11.6-14.6 [facility] Comment on above: Performed By: #### L 100.0100, L501.5200, L500.4050 ####[facility] [address] [place], [address] Hematocrit (Bld) [Volume fraction] 34.4 % Low 40-54 [facility] Comment on above: Performed By: #### L 100.0100, L501.5200, L500.4050 ####[facility] [address] [place], [address] Hemoglobin (Bld) [Mass/Vol] 12.4 g/dL Low 13.0-16.5 [facility] Comment on above: Performed By: #### L 100.0100, L501.5200, L500.4050 ####[facility] [address] [place], [address] IG% 0.600 Normal 0.0-0.9 [facility] Comment on above: Result Comment: IG% - Immature Granulocytes (promyelocytes, myelocytes andmetamyelocytes) > 1% indicates that a LEFT SHIFT is Present. Performed By: #### L 100.0100, L501.5200, L500.4050 ####[facility] [address] [place], [address] Lymphocytes/100 WBC (Bld) 9.5 % Low 19-41 [facility] Comment on above: Performed By: #### L 100.0100, L501.5200, L500.4050 ####[facility] [address] [place], [address] MCH (RBC) [Entitic mass] 34.2 pg High 27.0-32.0 [facility] Comment on above: Performed By: #### L 100.0100, L501.5200, L500.4050 ####[facility] [address] [place], [address] MCHC (RBC) [Mass/Vol] 36.0 g/dL Normal 32-36 [facility] Comment on above: Performed By: #### L 100.0100, L501.5200, L500.4050 ####[facility] [address] [place], [address] MCV (RBC) [Entitic vol] 94.8 fL High 80-94 [facility] Comment on above: Performed By: #### L 100.0100, L501.5200, L500.4050 ####[facility] [address] [place], [address] Monocytes/100 WBC (Bld) 21.6 % High 0-10 [facility] Comment on above: Performed By: #### L 100.0100, L501.5200, L500.4050 ####[facility] [address] [place], [address] Neutrophils/100 WBC (Bld) 65.9 % Normal 47-70 [facility] Comment on above: Performed By: #### L 100.0100, L501.5200, L500.4050 ####[facility] [address] [place], [address] Nucleated RBC (Bld) [#/Vol] 0 10*3/uL Normal 0-5 [facility] Comment on above: Performed By: #### L 100.0100, L501.5200, L500.4050 ####[facility] [address] [place], [address] Platelet mean volume (Bld) [Entitic vol] 8.9 fL Normal 6.2-12.0 [facility] Comment on above: Performed By: #### L 100.0100, L501.5200, L500.4050 ####[facility] [address] [place], [address] Platelets (Bld) [#/Vol] 130 10*3/uL Low 150-450 [facility] Comment on above: Performed By: #### L 100.0100, L501.5200, L500.4050 ####[facility] [address] [place], [address] RBC (Bld) [#/Vol] 3.63 10*6/uL Low 4.6-6.2 [facility] Comment on above: Performed By: #### L 100.0100, L501.5200, L500.4050 ####[facility] [address] [place], [address] RDW SD 52.5 fl High 35.1-43.9 [facility] Comment on above: Performed By: #### L 100.0100, L501.5200, L500.4050 ####[facility] [address] [place], [address] WBC (Bld) [#/Vol] 4.7 10*3/uL Normal 4.4-11.0 [facility] Comment on above: Performed By: #### L 100.0100, L501.5200, L500.4050 ####[facility] [address] [place], [address] Calcium oxalate crystals det ection in urine sediment by light microscopyOrdered By: Guy Ho on 02-14-2025 Calcium oxalate crystals LM Ql (Urine sed) 2+ /hpf [facility] Carbon dioxide, total [Moles /volume] in Central venous bloodOrdered By: Guy Ho on 02-14-2025 CO2 [Moles/Vol] 27.8 mmol/L 21.0-32.0 [facility] Chloride assayOrdered By: Greta Ho on 02-14-2025 Chloride [Moles/Vol] 100 mmol/L 98-108 [facility] Comprehensive Metabolic Prof ilon 02-14-2025 Albumin [Mass/Vol] 3.6 g/dL Normal 3.5-5.0 [facility] Comment on above: Performed By: #### L 100.0100, L501.5200, L500.4050 ####[facility] [address] [place], [address] Albumin/Globulin [Mass ratio] 1.1 {ratio} Normal 0.9-2.4 [facility] Comment on above: Performed By: #### L 100.0100, L501.5200, L500.4050 ####[facility] [address] [place], [address] ALK PHOS 127 U/L Normal 40-129 [facility] Comment on above: Performed By: #### L 100.0100, L501.5200, L500.4050 ####[facility] [address] [place], [address] ALT [Catalytic activity/Vol] 15 U/L Normal <=46 [facility] Comment on above: Performed By: #### L 100.0100, L501.5200, L500.4050 ####[facility] [address] [place], [address] AST [Catalytic activity/Vol] 27 U/L Normal <=37 [facility] Comment on above: Performed By: #### L 100.0100, L501.5200, L500.4050 ####[facility] [address] [place], [address] Bilirubin [Mass/Vol] 0.69 mg/dL Normal 0.00-1.30 [facility] Comment on above: Performed By: #### L 100.0100, L501.5200, L500.4050 ####[facility] [address] [place], [address] BUN/CRE 13.3 RATIO Normal 10-20 [facility] Comment on above: Performed By: #### L 100.0100, L501.5200, L500.4050 ####[facility] [address] [place], [address] Calcium [Mass/Vol] 9.4 mg/dL Normal 7.6-11.0 [facility] Comment on above: Performed By: #### L 100.0100, L501.5200, L500.4050 ####[facility] [address] [place], [address] Chloride [Moles/Vol] 100 mmol/L Normal 98-108 [facility] Comment on above: Performed By: #### L 100.0100, L501.5200, L500.4050 ####[facility] [address] [place], [address] CO2 [Moles/Vol] 27.8 mmol/L Normal 21.0-32.0 [facility] Comment on above: Performed By: #### L 100.0100, L501.5200, L500.4050 ####[facility] [address] [place], [address] Creatinine [Mass/Vol] 1.33 mg/dL High 0.70-1.20 [facility] Comment on above: Performed By: #### L 100.0100, L501.5200, L500.4050 ####[facility] [address] [place], [address] ECRCL 43.52 ml/min Low 50-250 [facility] Comment on above: Performed By: #### L 100.0100, L501.5200, L500.4050 ####[facility] [address] [place], [address] GAP 9 Normal 5-15 [facility] Comment on above: Performed By: #### L 100.0100, L501.5200, L500.4050 ####[facility] [address] [place], [address] GFR/1.73 sq M.predicted among non-blacks MDRD (S/P/Bld) [Vol rate/Area] 62 mL/min/{1.73_m2} Normal >60 [facility] Comment on above: Result Comment: mL/m in/1.73m2 CKD-EPI Creatinine Equation (2020) Performed By: #### L 100.0100, L501.5200, L500.4050 ####[facility] [address] [place], [address] Globulin (S) [Mass/Vol] 3.2 g/dL Normal 2.2-4.2 [facility] Comment on above: Performed By: #### L 100.0100, L501.5200, L500.4050 ####[facility] [address] [place], [address] Glucose [Mass/Vol] 106 mg/dL High 70-99 [facility] Comment on above: Performed By: #### L 100.0100, L501.5200, L500.4050 ####[facility] [address] [place], [address] Potassium [Moles/Vol] 3.4 mmol/L Normal 3.3-5.1 [facility] Comment on above: Performed By: #### L 100.0100, L501.5200, L500.4050 ####[facility] [address] [place], [address] Sodium [Moles/Vol] 137 mmol/L Normal 133-145 [facility] Comment on above: Performed By: #### L 100.0100, L501.5200, L500.4050 ####[facility] [address] [place], [address] T PROT 6.8 g/dL Normal 5.9-8.4 [facility] Comment on above: Performed By: #### L 100.0100, L501.5200, L500.4050 ####[facility] [address] [place], [address] Urea nitrogen [Mass/Vol] 18 mg/dL Normal 4-19 [facility] Comment on above: Performed By: #### L 100.0100, L501.5200, L500.4050 ####[facility] [address] [place], [address] Eosinophil percentageOrdered By: Guy Ho on 02-14-2025 Eosinophils/100 WBC (Bld) 1.3 % 0-5 [facility] Erythrocyte distribution wid th ratioOrdered By: [facility] Erythrocyte distribution width (RBC) [Ratio] 15.3 % High 11.6-14.6 [facility] Erythrocyte distribution wid th standard deviationOrdered By: [facility] on 02-14-2025 Erythrocyte distribution width (RBC) [Ratio] 52.5 fl High 35.1-43.9 [facility] Glomerular filtration rate ( GFR) estimation/1.73 sq m using serum, plasma, or whole bOrdered By: Guy Ho on 02-14-2025 GFR/1.73 sq M.predicted among non-blacks MDRD (S/P/Bld) [Vol rate/Area] 62 mL/min/{1.73_m2} >60 [facility] Comment on above: mL/min/1.73m2 CKD-EP I Creatinine Equation (2020) Hematocrit Auto (Bld) [Volum e fraction]Ordered By: Guy Ho on 02-14-2025 Hematocrit (Bld) [Volume fraction] 34.4 % Low 40-54 [facility] Hemoglobin measurementOrdere d By: Guy Ho on 02-14-2025 Hemoglobin (Bld) [Mass/Vol] 12.4 g/dL Low 13.0-16.5 [facility] Immature granulocytes/100 WB C Auto (Bld)Ordered By: Guy Ho on 02-14-2025 Immature granulocytes/100 WBC (Bld) 0.600 % 0.0-0.9 [facility] Comment on above: IG% - Immature Granu locytes (promyelocytes, myelocytes and metamyelocytes) > 1% indicates that a LEFT SHIFT is Present. Ketones Test strip Ql (U)Ord ered By: Guy Ho on 02-14-2025 Ketones Ql (U) Negative Negative [facility] Laboratory - Chemistry and C hemistry - challengeOrdered By: Guy Ho on 02-14-2025 AST [Catalytic activity/Vol] 27 U/L <38 [facility] MCV (mean corpuscular volume ) determinationOrdered By: Guy Ho on 02-14-2025 MCV (RBC) [Entitic vol] 94.8 fL High 80-94 [facility] Magnesiumon 02-14-2025 Magnesium [Mass/Vol] 2.3 mg/dL High 1.5-2.2 [facility] Comment on above: Performed By: #### L 100.0100, L501.5200, L500.4050 ####[facility] [address] [place], [address] Magnesium measurement (mass/ volume)Ordered By: Guy Ho on 02-14-2025 Magnesium (Unsp spec) [Mass/Vol] 2.3 mg/dL High 1.5-2.2 [facility] Mean corpuscular hemoglobin (MCH) determinationOrdered By: Guy Ho on 02-14-2025 MCH (RBC) [Entitic mass] 34.2 pg High 27.0-32.0 [facility] Mean corpuscular hemoglobin concentration (MCHC) determinationOrdered By: Guy Ho on 02-14-2025 MCHC (RBC) [Mass/Vol] 36.0 g/dL 32-36 [facility] Mean platelet volume determi nationOrdered By: Guy Ho on 02-14-2025 Platelet mean volume (Bld) [Entitic vol] 8.9 fL 6.2-12.0 [facility] Microscopic analysis of urin e for red blood cells (RBC)Ordered By: Guy Ho on 02-14-2025 Microscopic analysis of urine for red blood cells (RBC) 50-100 SEEN /hpf 0-5 [facility] Monocyte percentageOrdered B y: Guy Ho on 02-14-2025 Monocytes/100 WBC (Bld) 21.6 % High 0-10 [facility] Mucus LM Ql (Urine sed)Order ed By: Guy Ho on 02-14-2025 Mucus Ql (Urine sed) 0 SEEN /hpf [facility] Neutrophil percentageOrdered By: Guy Ho on 02-14-2025 Neutrophils/100 WBC (Bld) 65.9 % 47-70 [facility] Nitrite Test strip Ql (U)Ord ered By: Guy Ho on 02-14-2025 Nitrite Ql (U) Negative Negative [facility] Nucleated red blood cell per centageOrdered By: Guy Ho on 02-14-2025 Nucleated RBC/100 WBC (Bld) [Ratio] 0 % 0-5 [facility] Oncology Visit Reporton 01-19 Oncology Visit Report Normal [facility] Platelet countOrdered By: Greta Ho on 02-14-2025 Platelets (Bld) [#/Vol] 130 10*3/uL Low 150-450 [facility] Potassium measurement (mass/ volume)Ordered By: Guy Ho on 02-14-2025 Potassium (Unsp spec) [Mass/Vol] 3.4 mmol/L 3.3-5.1 [facility] Protein Test strip Ql (U)Ord ered By: Guy Ho on 02-14-2025 Protein Ql (U) 100 mg/dl High Negative [facility] RBC Auto (Bld) [#/Vol]Ordere d By: Guy Ho on 02-14-2025 RBC (Bld) [#/Vol] 3.63 10*6/uL Low 4.6-6.2 [facility] Serum creatinine measurement (mass/volume)Ordered By: Guy Ho on 02-14-2025 Creatinine [Mass/Vol] 1.33 mg/dL High 0.70-1.20 [facility] Serum globulin measurementOr dered By: Guy Ho on 02-14-2025 Globulin (S) [Mass/Vol] 3.2 g/dL 2.2-4.2 [facility] Serum glucose measurement (m ass/volume)Ordered By: Guy Ho on 02-14-2025 Glucose [Mass/Vol] 106 mg/dL High 70-99 [facility] Serum or plasma alanine galindo otransferase (ALT) measurementOrdered By: Guy Ho on 02-14-2025 ALT [Catalytic activity/Vol] 15 U/L <47 [facility] Serum or plasma albumin jesus urement (mass/volume)Ordered By: Guy Ho on 02-14-2025 Albumin [Mass/Vol] 3.6 g/dL 3.5-5.0 [facility] Serum or plasma albumin/glob ulin mass ratioOrdered By: Guy Ho on 02-14-2025 Albumin/Globulin [Mass ratio] 1.1 {ratio} 0.9-2.4 [facility] Serum or plasma alkaline cesar sphatase measurementOrdered By: Guy Ho on 02-14-2025 ALP [Catalytic activity/Vol] 127 U/L 40-129 [facility] Serum or plasma calcium jesus urement (mass/volume)Ordered By: Guy Ho on 02-14-2025 Calcium [Mass/Vol] 9.4 mg/dL 7.6-11.0 [facility] Serum or plasma carcinoembry onic antigen measurement (mass/volume)Ordered By: Guy Ho on 02-14-2025 Carcinoembryonic Ag [Mass/Vol] 2.9 ng/mL 0.0-4.7 [facility] Comment on above: Nonsmokers <3.9 Smok ers <5.6[employer] Electrochemiluminescence Immunoassay(ECLIA)Values obtained with different assay methods or kitscannot be used interchangeably. Results cannot beinterpreted as absolute evidence of the presence orabsence of malignant disease.Performed at: [address] [id number] Director: Javid Diehl PhD, Phone: [phone] Serum or plasma urea nitroge n measurement (mass/volume)Ordered By: Guy Ho on 02-14-2025 Urea nitrogen [Mass/Vol] 18 mg/dL 4-19 [facility] Sodium levelOrdered By: Sudeep Ho on 02-14-2025 Sodium [Moles/Vol] 137 mmol/L 133-145 [facility] Squamous epithelial cells de tection in urine sediment by light microscopyOrdered By: Guy Ho on 02-14-2025 Epithelial cells.squamous LM Ql (Urine sed) 0-5 SEEN /hpf 0-5 [facility] Total proteinOrdered By: Demetrio Ho on 02-14-2025 Protein [Mass/Vol] 6.8 g/dL 5.9-8.4 [facility] Urinalysis, Completeon 02-14 BACTERIA 4+ /hpf Normal None Seen [facility] Comment on above: Order Comment: TUBE 2TUBE 2COLLECTOR TO SPECIFY Performed By: #### L 400.0001, M100.2200 ####[facility] [address] [place], [address] CA OX CRYSTAL 2+ /hpf Normal [facility] Comment on above: Order Comment: TUBE 2TUBE 2COLLECTOR TO SPECIFY Performed By: #### L 400.0001, M100.2200 ####[facility] [address] [place], [address] EPI,SQUAMOUS 0-5 SEEN Normal 0-5 [facility] Comment on above: Order Comment: TUBE 2TUBE 2COLLECTOR TO SPECIFY Performed By: #### L 400.0001, M100.2200 ####[facility] [address] [place], [address] RBC 50-100 SEEN Normal 0-5 [facility] Comment on above: Order Comment: TUBE 2TUBE 2COLLECTOR TO SPECIFY Performed By: #### L 400.0001, M100.2200 ####[facility] [address] [place], [address] WBC 50-100 SEEN Normal 0-5 [facility] Comment on above: Order Comment: TUBE 2TUBE 2COLLECTOR TO SPECIFY Performed By: #### L 400.0001, M100.2200 ####[facility] [address] [place], [address] BACTERIA 4+ /hpf Normal None Seen [facility] Comment on above: Order Comment: TUBE 1TUBE ONECOLLECTOR TO SPECIFY Performed By: #### M 100.2200, L400.0001 ####[facility] [address] [place], [address] EPI,SQUAMOUS 0-5 SEEN Normal 0-5 [facility] Comment on above: Order Comment: TUBE 1TUBE ONECOLLECTOR TO SPECIFY Performed By: #### M 100.2200, L400.0001 ####[facility] [address] [place], [address] RBC 50-100 SEEN Normal 0-5 [facility] Comment on above: Order Comment: TUBE 1TUBE ONECOLLECTOR TO SPECIFY Performed By: #### M 100.2200, L400.0001 ####[facility] [address] [place], [address] WBC 50-100 SEEN Normal 0-5 [facility] Comment on above: Order Comment: TUBE 1TUBE ONECOLLECTOR TO SPECIFY Performed By: #### M 100.2200, L400.0001 ####[facility] [address] [place], [address] Mucus Ql (Urine sed) 0 SEEN Normal [facility] Comment on above: Order Comment: TUBE 1TUBE ONECOLLECTOR TO SPECIFY Performed By: #### M 100.2200, L400.0001 ####[facility] [address] [place], [address] Order Comment: TUBE 2TUBE 2COLLECTOR TO SPECIFY Performed By: #### L 400.0001, M100.2200 ####[facility] [address] [place], [address] Urine clarityOrdered By: Demetrio Ho on 02-14-2025 Clarity (U) Cloudy Clear [facility] Urine color determinationOrd ered By: Guy Ho on 02-14-2025 Color (U) Yellow Yellow [facility] Urine cultureOrdered By: Demetrio Ho on 02-14-2025 Bacteria identified Cx Nom (U) Escherichia coli Abnormal [facility] Urine glucose detectionOrder ed By: Guy Ho on 02-14-2025 Glucose Ql (U) Normal mg/dl Normal [facility] Urine leukocyte esterase det ection by dipstickOrdered By: Guy Ho on 02-14-2025 Leukocyte esterase Test strip Ql (U) 500 /ul High Negative [facility] Urine pHOrdered By: Guy coffey on 02-14-2025 pH (U) 6.0 [pH] 5.0 - 8.0 [facility] Urine sediment bacteria coun t by microscopy (number/high power field)Ordered By: Guy Ho on 02-14-2025 Bacteria LM.HPF (Urine sed) [#/Area] 4 /[HPF] None Seen [facility] Urine specific gravity measu rementOrdered By: Guy Ho on 02-14-2025 Specific gravity (U) [Rel density] 1.020 1.002-1.03 0 [facility] Urine urobilinogen measureme ntOrdered By: Guy Ho on 02-14-2025 Urobilinogen Ql (U) 4 mg/dl High Normal [facility] White blood cell (WBC) count Ordered By: Guy Ho on 02-14-2025 WBC (Bld) [#/Vol] 4.7 10*3/uL 4.4-11.0 [facility] White blood cell countOrdere d By: Guy Ho on 02-14-2025 White blood cell count 50-100 SEEN /hpf 0-5 [facility] CBC W/Diff, Automatedon 04- Absolute Lymph 0.33 X10 3/uL Low 0.83-4.51 [facility] Comment on above: Performed By: #### L 100.0100, L500.4050, L501.5200 ####[facility] [address] [place], [address] Absolute Neut 1.7 X10 3/uL Low 2.0-7.7 [facility] Comment on above: Performed By: #### L 100.0100, L500.4050, L501.5200 ####[facility] [address] [place], [address] Basophils/100 WBC (Bld) 1.9 % High 0-1 [facility] Comment on above: Performed By: #### L 100.0100, L500.4050, L501.5200 ####[facility] [address] [place], [address] Eosinophils/100 WBC (Bld) 2.9 % Normal 0-5 [facility] Comment on above: Performed By: #### L 100.0100, L500.4050, L501.5200 ####[facility] [address] [place], [address] Erythrocyte distribution width (RBC) [Ratio] 16.7 % High 11.6-14.6 [facility] Comment on above: Performed By: #### L 100.0100, L500.4050, L501.5200 ####[facility] [address] [place], [address] Hematocrit (Bld) [Volume fraction] 32.1 % Low 40-54 [facility] Comment on above: Performed By: #### L 100.0100, L500.4050, L501.5200 ####[facility] [address] [place], [address] Hemoglobin (Bld) [Mass/Vol] 10.9 g/dL Low 13.0-16.5 [facility] Comment on above: Performed By: #### L 100.0100, L500.4050, L501.5200 ####[facility] [address] [place], [address] IG% 0.600 Normal 0.0-0.9 [facility] Comment on above: Result Comment: IG% - Immature Granulocytes (promyelocytes, myelocytes andmetamyelocytes) > 1% indicates that a LEFT SHIFT is Present. Performed By: #### L 100.0100, L500.4050, L501.5200 ####[facility] [address] [place], [address] Lymphocytes/100 WBC (Bld) 10.7 % Low 19-41 [facility] Comment on above: Performed By: #### L 100.0100, L500.4050, L501.5200 ####[facility] [address] [place], [address] MCH (RBC) [Entitic mass] 32.4 pg High 27.0-32.0 [facility] Comment on above: Performed By: #### L 100.0100, L500.4050, L501.5200 ####[facility] [address] [place], [address] MCHC (RBC) [Mass/Vol] 34.0 g/dL Normal 32-36 [facility] Comment on above: Performed By: #### L 100.0100, L500.4050, L501.5200 ####[facility] [address] [place], [address] MCV (RBC) [Entitic vol] 95.5 fL High 80-94 [facility] Comment on above: Performed By: #### L 100.0100, L500.4050, L501.5200 ####[facility] [address] [place], [address] Monocytes/100 WBC (Bld) 27.8 % High 0-10 [facility] Comment on above: Performed By: #### L 100.0100, L500.4050, L501.5200 ####[facility] [address] [place], [address] Neutrophils/100 WBC (Bld) 56.1 % Normal 47-70 [facility] Comment on above: Performed By: #### L 100.0100, L500.4050, L501.5200 ####[facility] [address] [place], [address] Nucleated RBC (Bld) [#/Vol] 0 10*3/uL Normal 0-5 [facility] Comment on above: Performed By: #### L 100.0100, L500.4050, L501.5200 ####[facility] [address] [place], [address] Platelet mean volume (Bld) [Entitic vol] 8.8 fL Normal 6.2-12.0 [facility] Comment on above: Performed By: #### L 100.0100, L500.4050, L501.5200 ####[facility] [address] [place], [address] Platelets (Bld) [#/Vol] 136 10*3/uL Low 150-450 [facility] Comment on above: Performed By: #### L 100.0100, L500.4050, L501.5200 ####[facility] [address] [place], [address] RBC (Bld) [#/Vol] 3.36 10*6/uL Low 4.6-6.2 [facility] Comment on above: Performed By: #### L 100.0100, L500.4050, L501.5200 ####[facility] [address] [place], [address] RDW SD 58.0 fl High 35.1-43.9 [facility] Comment on above: Performed By: #### L 100.0100, L500.4050, L501.5200 ####[facility] [address] [place], [address] WBC (Bld) [#/Vol] 3.1 10*3/uL Low 4.4-11.0 [facility] Comment on above: Performed By: #### L 100.0100, L500.4050, L501.5200 ####[facility] [address] [place], [address] Comprehensive Metabolic Prof [facility] 04-14-2025 Albumin [Mass/Vol] 3.5 g/dL Normal 3.5-5.0 [facility] Comment on above: Performed By: #### L 100.0100, L500.4050, L501.5200 ####[facility] [address] [place], [address] Albumin/Globulin [Mass ratio] 1.0 {ratio} Normal 0.9-2.4 [facility] Comment on above: Performed By: #### L 100.0100, L500.4050, L501.5200 ####[facility] [address] [place], [address] ALK PHOS 125 U/L Normal 40-129 [facility] Comment on above: Performed By: #### L 100.0100, L500.4050, L501.5200 ####[facility] [address] [place], [address] ALT [Catalytic activity/Vol] 15 U/L Normal <=46 [facility] Comment on above: Performed By: #### L 100.0100, L500.4050, L501.5200 ####[facility] [address] [place], [address] AST [Catalytic activity/Vol] 26 U/L Normal <=37 [facility] Comment on above: Performed By: #### L 100.0100, L500.4050, L501.5200 ####[facility] [address] [place], [address] Bilirubin [Mass/Vol] 0.35 mg/dL Normal 0.00-1.30 [facility] Comment on above: Performed By: #### L 100.0100, L500.4050, L501.5200 ####[facility] [address] [place], [address] BUN/CRE 13.0 RATIO Normal 10-20 [facility] Comment on above: Performed By: #### L 100.0100, L500.4050, L501.5200 ####[facility] [address] [place], [address] Calcium [Mass/Vol] 9.5 mg/dL Normal 7.6-11.0 [facility] Comment on above: Performed By: #### L 100.0100, L500.4050, L501.5200 ####[facility] [address] [place], [address] Chloride [Moles/Vol] 105 mmol/L Normal 98-108 [facility] Comment on above: Performed By: #### L 100.0100, L500.4050, L501.5200 ####[facility] [address] [place], [address] CO2 [Moles/Vol] 24.3 mmol/L Normal 21.0-32.0 [facility] Comment on above: Performed By: #### L 100.0100, L500.4050, L501.5200 ####[facility] [address] [place], [address] Creatinine [Mass/Vol] 1.35 mg/dL High 0.70-1.20 [facility] Comment on above: Performed By: #### L 100.0100, L500.4050, L501.5200 ####[facility] [address] [place], [address] ECRCL 45.10 ml/min Low 50-250 [facility] Comment on above: Performed By: #### L 100.0100, L500.4050, L501.5200 ####[facility] [address] [place], [address] GAP 9 Normal 5-15 [facility] Comment on above: Performed By: #### L 100.0100, L500.4050, L501.5200 ####[facility] [address] [place], [address] GFR/1.73 sq M.predicted among non-blacks MDRD (S/P/Bld) [Vol rate/Area] 60 mL/min/{1.73_m2} Normal >60 [facility] Comment on above: Result Comment: mL/m in/1.73m2 CKD-EPI Creatinine Equation (2020) Performed By: #### L 100.0100, L500.4050, L501.5200 ####[facility] [address] [place], [address] Globulin (S) [Mass/Vol] 3.4 g/dL Normal 2.2-4.2 [facility] Comment on above: Performed By: #### L 100.0100, L500.4050, L501.5200 ####[facility] [address] [place], [address] Glucose [Mass/Vol] 90 mg/dL Normal 70-99 [facility] Comment on above: Performed By: #### L 100.0100, L500.4050, L501.5200 ####[facility] [address] [place], [address] Potassium [Moles/Vol] 3.5 mmol/L Normal 3.3-5.1 [facility] Comment on above: Performed By: #### L 100.0100, L500.4050, L501.5200 ####[facility] [address] [place], [address] Sodium [Moles/Vol] 138 mmol/L Normal 133-145 [facility] Comment on above: Performed By: #### L 100.0100, L500.4050, L501.5200 ####[facility] [address] [place], [address] T PROT 6.9 g/dL Normal 5.9-8.4 [facility] Comment on above: Performed By: #### L 100.0100, L500.4050, L501.5200 ####[facility] [address] [place], [address] Urea nitrogen [Mass/Vol] 18 mg/dL Normal 4-19 [facility] Comment on above: Performed By: #### L 100.0100, L500.4050, L501.5200 ####[facility] [address] [place], [address] Magnesiumon 01-31-2025 Magnesium [Mass/Vol] 2.2 mg/dL Normal 1.5-2.2 [facility] Comment on above: Performed By: #### L 100.0100, L500.4050, L501.5200 ####[facility] [address] [place], [address] Oncology Visit Reporton 01-18 Oncology Visit Report Normal [facility] CBC W/Diff, Automatedon - Absolute Lymph 0.40 X10 3/uL Low 0.83-4.51 [facility] Comment on above: Performed By: #### L 500.4050, L100.0100, L501.5200 ####[facility] [address] [place], [address] Absolute Neut 2.0 X10 3/uL Normal 2.0-7.7 [facility] Comment on above: Performed By: #### L 500.4050, L100.0100, L501.5200 ####[facility] [address] [place], [address] Basophils/100 WBC (Bld) 1.2 % High 0-1 [facility] Comment on above: Performed By: #### L 500.4050, L100.0100, L501.5200 ####[facility] [address] [place], [address] Eosinophils/100 WBC (Bld) 4.0 % Normal 0-5 [facility] Comment on above: Performed By: #### L 500.4050, L100.0100, L501.5200 ####[facility] [address] [place], [address] Erythrocyte distribution width (RBC) [Ratio] 17.2 % High 11.6-14.6 [facility] Comment on above: Performed By: #### L 500.4050, L100.0100, L501.5200 ####[facility] [address] [place], [address] Hematocrit (Bld) [Volume fraction] 29.9 % Low 40-54 [facility] Comment on above: Performed By: #### L 500.4050, L100.0100, L501.5200 ####[facility] [address] [place], [address] Hemoglobin (Bld) [Mass/Vol] 10.6 g/dL Low 13.0-16.5 [facility] Comment on above: Performed By: #### L 500.4050, L100.0100, L501.5200 ####[facility] [address] [place], [address] IG% 0.300 Normal 0.0-0.9 [facility] Comment on above: Result Comment: IG% - Immature Granulocytes (promyelocytes, myelocytes andmetamyelocytes) > 1% indicates that a LEFT SHIFT is Present. Performed By: #### L 500.4050, L100.0100, L501.5200 ####[facility] [address] [place], [address] Lymphocytes/100 WBC (Bld) 12.4 % Low 19-41 [facility] Comment on above: Performed By: #### L 500.4050, L100.0100, L501.5200 ####[facility] [address] [place], [address] MCH (RBC) [Entitic mass] 33.2 pg High 27.0-32.0 [facility] Comment on above: Performed By: #### L 500.4050, L100.0100, L501.5200 ####[facility] [address] [place], [address] MCHC (RBC) [Mass/Vol] 35.5 g/dL Normal 32-36 [facility] Comment on above: Performed By: #### L 500.4050, L100.0100, L501.5200 ####[facility] [address] [place], [address] MCV (RBC) [Entitic vol] 93.7 fL Normal 80-94 [facility] Comment on above: Performed By: #### L 500.4050, L100.0100, L501.5200 ####[facility] [address] [place], [address] Monocytes/100 WBC (Bld) 19.5 % High 0-10 [facility] Comment on above: Performed By: #### L 500.4050, L100.0100, L501.5200 ####[facility] [address] [place], [address] Neutrophils/100 WBC (Bld) 62.6 % Normal 47-70 [facility] Comment on above: Performed By: #### L 500.4050, L100.0100, L501.5200 ####[facility] [address] [place], [address] Nucleated RBC (Bld) [#/Vol] 0 10*3/uL Normal 0-5 [facility] Comment on above: Performed By: #### L 500.4050, L100.0100, L501.5200 ####[facility] [address] [place], [address] Platelet mean volume (Bld) [Entitic vol] 8.6 fL Normal 6.2-12.0 [facility] Comment on above: Performed By: #### L 500.4050, L100.0100, L501.5200 ####[facility] [address] [place], [address] Platelets (Bld) [#/Vol] 102 10*3/uL Low 150-450 [facility] Comment on above: Performed By: #### L 500.4050, L100.0100, L501.5200 ####[facility] [address] [place], [address] RBC (Bld) [#/Vol] 3.19 10*6/uL Low 4.6-6.2 [facility] Comment on above: Performed By: #### L 500.4050, L100.0100, L501.5200 ####[facility] [address] [place], [address] RDW SD 57.3 fl High 35.1-43.9 [facility] Comment on above: Performed By: #### L 500.4050, L100.0100, L501.5200 ####[facility] [address] [place], [address] WBC (Bld) [#/Vol] 3.2 10*3/uL Low 4.4-11.0 [facility] Comment on above: Performed By: #### L 500.4050, L100.0100, L501.5200 ####[facility] [address] [place], [address] Comprehensive Metabolic Prof ilon 01-17-2025 Albumin [Mass/Vol] 3.4 g/dL Low 3.5-5.0 [facility] Comment on above: Performed By: #### L 500.4050, L100.0100, L501.5200 ####[facility] [address] [place], [address] Albumin/Globulin [Mass ratio] 1.0 {ratio} Normal 0.9-2.4 [facility] Comment on above: Performed By: #### L 500.4050, L100.0100, L501.5200 ####[facility] [address] [place], [address] ALK PHOS 109 U/L Normal 40-129 [facility] Comment on above: Performed By: #### L 500.4050, L100.0100, L501.5200 ####[facility] [address] [place], [address] ALT [Catalytic activity/Vol] 14 U/L Normal <=46 [facility] Comment on above: Performed By: #### L 500.4050, L100.0100, L501.5200 ####[facility] [address] [place], [address] AST [Catalytic activity/Vol] 24 U/L Normal <=37 [facility] Comment on above: Performed By: #### L 500.4050, L100.0100, L501.5200 ####[facility] [address] [place], [address] Bilirubin [Mass/Vol] 0.34 mg/dL Normal 0.00-1.30 [facility] Comment on above: Performed By: #### L 500.4050, L100.0100, L501.5200 ####[facility] [address] [place], [address] BUN/CRE 11.5 RATIO Normal 10-20 [facility] Comment on above: Performed By: #### L 500.4050, L100.0100, L501.5200 ####[facility] [address] [place], [address] Calcium [Mass/Vol] 9.4 mg/dL Normal 7.6-11.0 [facility] Comment on above: Performed By: #### L 500.4050, L100.0100, L501.5200 ####[facility] [address] [place], [address] Chloride [Moles/Vol] 108 mmol/L Normal 98-108 [facility] Comment on above: Performed By: #### L 500.4050, L100.0100, L501.5200 ####[facility] [address] [place], [address] CO2 [Moles/Vol] 21.5 mmol/L Normal 21.0-32.0 [facility] Comment on above: Performed By: #### L 500.4050, L100.0100, L501.5200 ####[facility] [address] [place], [address] Creatinine [Mass/Vol] 1.27 mg/dL High 0.70-1.20 [facility] Comment on above: Performed By: #### L 500.4050, L100.0100, L501.5200 ####[facility] [address] [place], [address] ECRCL 47.89 ml/min Low 50-250 [facility] Comment on above: Performed By: #### L 500.4050, L100.0100, L501.5200 ####[facility] [address] [place], [address] GAP 11 Normal 5-15 [facility] Comment on above: Performed By: #### L 500.4050, L100.0100, L501.5200 ####[facility] [address] [place], [address] GFR/1.73 sq M.predicted among non-blacks MDRD (S/P/Bld) [Vol rate/Area] 65 mL/min/{1.73_m2} Normal >60 [facility] Comment on above: Result Comment: mL/m in/1.73m2 CKD-EPI Creatinine Equation (2020) Performed By: #### L 500.4050, L100.0100, L501.5200 ####[facility] [address] [place], [address] Globulin (S) [Mass/Vol] 3.4 g/dL Normal 2.2-4.2 [facility] Comment on above: Performed By: #### L 500.4050, L100.0100, L501.5200 ####[facility] [address] [place], [address] Glucose [Mass/Vol] 101 mg/dL High 70-99 [facility] Comment on above: Performed By: #### L 500.4050, L100.0100, L501.5200 ####[facility] [address] [place], [address] Potassium [Moles/Vol] 3.3 mmol/L Normal 3.3-5.1 [facility] Comment on above: Performed By: #### L 500.4050, L100.0100, L501.5200 ####[facility] [address] [place], [address] Sodium [Moles/Vol] 140 mmol/L Normal 133-145 [facility] Comment on above: Performed By: #### L 500.4050, L100.0100, L501.5200 ####[facility] [address] [place], [address] T PROT 6.8 g/dL Normal 5.9-8.4 [facility] Comment on above: Performed By: #### L 500.4050, L100.0100, L501.5200 ####[facility] [address] [place], [address] Urea nitrogen [Mass/Vol] 15 mg/dL Normal 4-19 [facility] Comment on above: Performed By: #### L 500.4050, L100.0100, L501.5200 ####[facility] [address] [place], [address] Magnesiumon 01-17-2025 Magnesium [Mass/Vol] 2.2 mg/dL Normal 1.5-2.2 [facility] Comment on above: Performed By: #### L 500.4050, L100.0100, L501.5200 ####[facility] [address] [facility] [place], [address] Oncology Visit Reporton 12-20 Oncology Visit Report Normal [facility] Blood band neutrophil count as percentage of total leukocytesOrdered By: Guy Ho on 01-03-2025 Band form neutrophils/100 WBC (Bld) 2 % 0-5 [facility] Blood basophils/100 leukocyt esOrdered By: Guy Vic on 01-03-2025 Basophils/100 WBC (Bld) 1 % 0-1 [facility] Blood eosinophils/100 leukoc ytesOrdered By: Guy Ho on 01-03-2025 Eosinophils/100 WBC (Bld) 8 % High 0-5 [facility] Blood lymphocytes/100 leukoc ytesOrdered By: Guy Ho on 01-03-2025 Lymphocytes/100 WBC (Bld) 7 % Low 19-41 [facility] Blood monocytes/100 leukocyt esOrdered By: Guy Ho on 01-03-2025 Monocytes/100 WBC (Bld) 20 % High 0-10 [facility] Blood promyelocytes/100 leuk ocytesOrdered By: Guy Ho on 01-03-2025 Promyelocytes/100 WBC (Bld) 2 % High 0-0 [facility] Blood segmented neutrophils/ 100 leukocytesOrdered By: Guy oH on 01-03-2025 Segmented neutrophils/100 WBC (Bld) 58 % 47-70 [facility] CBC W/Diff, Automatedon 12-18 Absolute Lymph 0.30 X10 3/uL Low 0.83-4.51 [facility] Comment on above: Performed By: #### L 501.5200, L100.0100, L500.4050 ####[facility] [address] [place], [address] PATH REV May foll Normal [facility] Comment on above: Performed By: #### L 501.5200, L100.0100, L500.4050 ####[facility] [address] [place], [address] Absolute Neut 2.4 X10 3/uL Normal 2.0-7.7 [facility] Comment on above: Performed By: #### L 501.5200, L100.0100, L500.4050 ####[facility] [address] [place], [address] Chest PA and Lateralon 01-03 Chest PA and Lateral Normal [facility] Comprehensive Metabolic Prof ilon 01-03-2025 BUN/CRE 9.5 RATIO Low 10-20 [facility] Comment on above: Performed By: #### L 501.5200, L100.0100, L500.4050 ####[facility] [address] [place], [address] Urea nitrogen [Mass/Vol] 12 mg/dL Normal 4-19 [facility] Comment on above: Performed By: #### L 501.5200, L100.0100, L500.4050 ####[facility] [address] [place], [address] Erythrocyte morphology asses smentOrdered By: Guy Ho on 01-03-2025 RBC morphology finding Nom (Bld) NORM C+C NORMAL NORM C&C [facility] LDHon 01-03-2025 LDH 120 U/L Normal 87-241 [facility] Comment on above: Order Comment: 1 Performed By: #### L 504.2610 ####[facility] [address] [place], [address] Lactate dehydrogenase (LDH) measurementOrdered By: Rangel Connor on 01-03-2025 LDH [Catalytic activity/Vol] 120 U/L 87-241 [facility] Magnesiumon 01-03-2025 Magnesium [Mass/Vol] 2.2 mg/dL Normal 1.5-2.2 [facility] Comment on above: Performed By: #### L 501.5200, L100.0100, L500.4050 ####[facility] [address] [place], [address] Myelocyte %Ordered By: Mathew Ho on 01-03-2025 Myelocytes/100 WBC (Bld) 1 % High 0-0 [facility] Oncology Visit Reporton 12-18 Oncology Visit Report Normal [facility] Platelet estimateOrdered By: Guy Ho on 01-03-2025 Platelets LM Ql (Bld) ADEQUATE ADEQ [facility] Review by pathologistOrdered By: Guy Ho on 01-03-2025 Pathologist review Leonard (Unsp spec) [Interp] May foll [facility] Total cell countOrdered By: Guy Ho on 01-03-2025 Cells counted Molgen (Bld/Tiss) [#] 100 MANUAL DIFF [facility] Urine Cultureon 01-01-2025 URC Normal [facility] Comment on above: Performed By: #### M 100.2200 ####[facility] [address] [place], [address] Basic Metabolic Profile (BMP )on 12-28-2024 BUN/CRE 13.7 RATIO Normal 10-20 [facility] Comment on above: Performed By: #### L 500.2500, L501.5200 ####[facility] [address] [place], [address] Calcium [Mass/Vol] 9.6 mg/dL Normal 7.6-11.0 [facility] Comment on above: Performed By: #### L 500.2500, L501.5200 ####[facility] [address] [place], [address] Chloride [Moles/Vol] 101 mmol/L Normal 98-108 [facility] Comment on above: Performed By: #### L 500.2500, L501.5200 ####[facility] [address] [place], [address] CO2 [Moles/Vol] 24.6 mmol/L Normal 21.0-32.0 [facility] Comment on above: Performed By: #### L 500.2500, L501.5200 ####[facility] [address] [place], [address] Creatinine [Mass/Vol] 1.52 mg/dL High 0.70-1.20 [facility] Comment on above: Performed By: #### L 500.2500, L501.5200 ####[facility] [address] [place], [address] ECRCL 38.91 ml/min Low 50-250 [facility] Comment on above: Performed By: #### L 500.2500, L501.5200 ####[facility] [address] [place], [address] GAP 12 Normal 5-15 [facility] Comment on above: Performed By: #### L 500.2500, L501.5200 ####[facility] [address] [place], [address] GFR/1.73 sq M.predicted among non-blacks MDRD (S/P/Bld) [Vol rate/Area] 53 mL/min/{1.73_m2} Low >60 [facility] Comment on above: Result Comment: mL/m in/1.73m2 CKD-EPI Creatinine Equation (2020) Performed By: #### L 500.2500, L501.5200 ####[facility] [address] [place], [address] Glucose [Mass/Vol] 103 mg/dL High 70-99 [facility] Comment on above: Performed By: #### L 500.2500, L501.5200 ####[facility] [address] [place], [address] Potassium [Moles/Vol] 3.1 mmol/L Low 3.3-5.1 [facility] Comment on above: Performed By: #### L 500.2500, L501.5200 ####[facility] [address] [place], [address] Sodium [Moles/Vol] 137 mmol/L Normal 133-145 [facility] Comment on above: Performed By: #### L 500.2500, L501.5200 ####[facility] [address] [place], [address] Urea nitrogen [Mass/Vol] 21 mg/dL High 4-19 [facility] Comment on above: Performed By: #### L 500.2500, L501.5200 ####[facility] [address] [place], [address] Magnesiumon 12-28-2024 Magnesium [Mass/Vol] 2.0 mg/dL Normal 1.5-2.2 [facility] Comment on above: Performed By: #### L 500.2500, L501.5200 ####[facility] [address] [place], [address] Oncology Visit Reporton 12-18 Oncology Visit Report Normal [facility] Urinalysis, Completeon 12-28 BACTERIA 3+ /hpf Normal None Seen [facility] Comment on above: Order Comment: COLLE CTOR TO SPECIFY Performed By: #### L 400.0001 ####[facility] [address] [place], [address] EPI,SQUAMOUS 0-5 SEEN Normal 0-5 [facility] Comment on above: Order Comment: COLLE CTOR TO SPECIFY Performed By: #### L 400.0001 ####[facility] [address] [place], [address] RBC 5-10 SEEN Normal 0-5 [facility] Comment on above: Order Comment: COLLE CTOR TO SPECIFY Performed By: #### L 400.0001 ####[facility] [address] [place], [address] WBC >100 SEEN Normal 0-5 [facility] Comment on above: Order Comment: COLLE CTOR TO SPECIFY Result Comment: Micr oscopic field is filled. Other elements may beobscured. Performed By: #### L 400.0001 ####[facility] [address] [place], [address] Mucus Ql (Urine sed) 0 SEEN Normal [facility] Comment on above: Order Comment: COLLE CTOR TO SPECIFY Performed By: #### L 400.0001 ####[facility] [address] [place], [address] Urine cultureOrdered By: Duy Mercedes on 12-28-2024 Bacteria identified Cx Nom (U) Presumptive E. coli Abnormal [facility] Bacteria identified Cx Nom (U) Proteus hauseri Abnormal [facility] CBC W/Diff, Automatedon 03-0 Absolute Lymph 0.28 X10 3/uL Low 0.83-4.51 [facility] Comment on above: Performed By: #### L 100.0100, L501.5200, L500.4050 ####[facility] [address] [place], [address] Absolute Neut 6.3 X10 3/uL Normal 2.0-7.7 [facility] Comment on above: Performed By: #### L 100.0100, L501.5200, L500.4050 ####[facility] [address] [place], [address] Basophils/100 WBC (Bld) 0.7 % Normal 0-1 [facility] Comment on above: Performed By: #### L 100.0100, L501.5200, L500.4050 ####[facility] [address] [place], [address] Eosinophils/100 WBC (Bld) 0.5 % Normal 0-5 [facility] Comment on above: Performed By: #### L 100.0100, L501.5200, L500.4050 ####[facility] [address] [place], [address] Erythrocyte distribution width (RBC) [Ratio] 17.8 % High 11.6-14.6 [facility] Comment on above: Performed By: #### L 100.0100, L501.5200, L500.4050 ####[facility] [address] [place], [address] Hematocrit (Bld) [Volume fraction] 35.7 % Low 40-54 [facility] Comment on above: Performed By: #### L 100.0100, L501.5200, L500.4050 ####[facility] [address] [place], [address] Hemoglobin (Bld) [Mass/Vol] 12.4 g/dL Low 13.0-16.5 [facility] Comment on above: Performed By: #### L 100.0100, L501.5200, L500.4050 ####[facility] [address] [place], [address] IG% 0.800 Normal 0.0-0.9 [facility] Comment on above: Result Comment: IG% - Immature Granulocytes (promyelocytes, myelocytes andmetamyelocytes) > 1% indicates that a LEFT SHIFT is Present. Performed By: #### L 100.0100, L501.5200, L500.4050 ####[facility] [address] [place], [address] Lymphocytes/100 WBC (Bld) 3.8 % Low 19-41 [facility] Comment on above: Performed By: #### L 100.0100, L501.5200, L500.4050 ####[facility] [address] [place], [address] MCH (RBC) [Entitic mass] 32.0 pg Normal 27.0-32.0 [facility] Comment on above: Performed By: #### L 100.0100, L501.5200, L500.4050 ####[facility] [address] [place], [address] MCHC (RBC) [Mass/Vol] 34.7 g/dL Normal 32-36 [facility] Comment on above: Performed By: #### L 100.0100, L501.5200, L500.4050 ####[facility] [address] [place], [address] MCV (RBC) [Entitic vol] 92.0 fL Normal 80-94 [facility] Comment on above: Performed By: #### L 100.0100, L501.5200, L500.4050 ####[facility] [address] [place], [address] Monocytes/100 WBC (Bld) 9.2 % Normal 0-10 [facility] Comment on above: Performed By: #### L 100.0100, L501.5200, L500.4050 ####[facility] [address] [place], [address] Neutrophils/100 WBC (Bld) 85.0 % High 47-70 [facility] Comment on above: Performed By: #### L 100.0100, L501.5200, L500.4050 ####[facility] [address] [place], [address] Nucleated RBC (Bld) [#/Vol] 0 10*3/uL Normal 0-5 [facility] Comment on above: Performed By: #### L 100.0100, L501.5200, L500.4050 ####[facility] [address] [place], [address] Platelet mean volume (Bld) [Entitic vol] 8.7 fL Normal 6.2-12.0 [facility] Comment on above: Performed By: #### L 100.0100, L501.5200, L500.4050 ####[facility] [address] [place], [address] Platelets (Bld) [#/Vol] 149 10*3/uL Low 150-450 [facility] Comment on above: Performed By: #### L 100.0100, L501.5200, L500.4050 ####[facility] [address] [place], [address] RBC (Bld) [#/Vol] 3.88 10*6/uL Low 4.6-6.2 [facility] Comment on above: Performed By: #### L 100.0100, L501.5200, L500.4050 ####[facility] [address] [place], [address] RDW SD 59.2 fl High 35.1-43.9 [facility] Comment on above: Performed By: #### L 100.0100, L501.5200, L500.4050 ####[facility] [address] [place], [address] WBC (Bld) [#/Vol] 7.5 10*3/uL Normal 4.4-11.0 [facility] Comment on above: Performed By: #### L 100.0100, L501.5200, L500.4050 ####[facility] [address] [place], [address] Chloride measurementOrdered By: Guy Ho on 12-20-2024 Chloride [Moles/Vol] 104 mmol/L 96-108 [facility] Comprehensive Metabolic Prof ilon 12-20-2024 Albumin [Mass/Vol] 3.7 g/dL Normal 3.5-5.0 [facility] Comment on above: Performed By: #### L 100.0100, L501.5200, L500.4050 ####[facility] [address] [place], [address] Albumin/Globulin [Mass ratio] 1.1 {ratio} Normal 0.9-2.4 [facility] Comment on above: Performed By: #### L 100.0100, L501.5200, L500.4050 ####[facility] [address] [place], [address] ALK PHOS 111 U/L Normal 40-129 [facility] Comment on above: Performed By: #### L 100.0100, L501.5200, L500.4050 ####[facility] [address] [place], [address] ALT [Catalytic activity/Vol] 18 U/L Normal <=46 [facility] Comment on above: Performed By: #### L 100.0100, L501.5200, L500.4050 ####[facility] [address] [place], [address] Anion gap [Moles/Vol] 10 mmol/L Normal 5-15 [facility] Comment on above: Performed By: #### L 100.0100, L501.5200, L500.4050 ####[facility] [address] [place], [address] AST [Catalytic activity/Vol] 24 U/L Normal <=37 [facility] Comment on above: Performed By: #### L 100.0100, L501.5200, L500.4050 ####[facility] [address] [place], [address] Bilirubin [Mass/Vol] 0.39 mg/dL Normal 0.00-1.30 [facility] Comment on above: Performed By: #### L 100.0100, L501.5200, L500.4050 ####[facility] [address] [place], [address] BUN/CRE 14.4 RATIO Normal 10-20 [facility] Comment on above: Performed By: #### L 100.0100, L501.5200, L500.4050 ####[facility] [address] [place], [address] Calcium [Mass/Vol] 9.3 mg/dL Normal 7.6-11.0 [facility] Comment on above: Performed By: #### L 100.0100, L501.5200, L500.4050 ####[facility] [address] [place], [address] Chloride [Moles/Vol] 104 mmol/L Normal 96-108 [facility] Comment on above: Performed By: #### L 100.0100, L501.5200, L500.4050 ####[facility] [address] [place], [address] CO2 [Moles/Vol] 25.2 mmol/L Normal 22.0-29.0 [facility] Comment on above: Performed By: #### L 100.0100, L501.5200, L500.4050 ####[facility] [address] [place], [address] Creatinine [Mass/Vol] 1.35 mg/dL High 0.70-1.20 [facility] Comment on above: Performed By: #### L 100.0100, L501.5200, L500.4050 ####[facility] [address] [place], [address] ECRCL 47.21 ml/min Low 50-250 [facility] Comment on above: Performed By: #### L 100.0100, L501.5200, L500.4050 ####[facility] [address] [place], [address] GFR/1.73 sq M.predicted among non-blacks MDRD (S/P/Bld) [Vol rate/Area] 61 mL/min/{1.73_m2} Normal >60 [facility] Comment on above: Result Comment: mL/m in/1.73m2 CKD-EPI Creatinine Equation (2020) Performed By: #### L 100.0100, L501.5200, L500.4050 ####[facility] [address] [place], [address] Globulin (S) [Mass/Vol] 3.4 g/dL Normal 2.2-4.2 [facility] Comment on above: Performed By: #### L 100.0100, L501.5200, L500.4050 ####[facility] [address] [place], [address] Glucose [Mass/Vol] 109 mg/dL High 70-99 [facility] Comment on above: Performed By: #### L 100.0100, L501.5200, L500.4050 ####[facility] [address] [place], [address] Potassium [Moles/Vol] 4.1 mmol/L Normal 3.3-5.1 [facility] Comment on above: Performed By: #### L 100.0100, L501.5200, L500.4050 ####[facility] [address] [place], [address] Sodium [Moles/Vol] 139 mmol/L Normal 133-145 [facility] Comment on above: Performed By: #### L 100.0100, L501.5200, L500.4050 ####[facility] [address] [place], [address] T PROT 7.2 g/dL Normal 5.9-8.4 [facility] Comment on above: Performed By: #### L 100.0100, L501.5200, L500.4050 ####[facility] [address] [place], [address] Urea nitrogen [Mass/Vol] 19 mg/dL Normal 4-19 [facility] Comment on above: Performed By: #### L 100.0100, L501.5200, L500.4050 ####[facility] [address] [place], [address] Magnesiumon 12-20-2024 Magnesium [Mass/Vol] 2.2 mg/dL Normal 1.5-2.2 [facility] Comment on above: Performed By: #### L 100.0100, L501.5200, L500.4050 ####[facility] [address] [place], [address] Oncology Visit Reporton 03-0 Oncology Visit Report Normal [facility] CBC W/Diff, Automatedon - Absolute Lymph 0.53 X10 3/uL Low 0.83-4.51 [facility] Comment on above: Performed By: #### L 501.5200, L500.4050, L100.0100 ####[facility] [address] [place], [address] Absolute Neut 4.3 X10 3/uL Normal 2.0-7.7 [facility] Comment on above: Performed By: #### L 501.5200, L500.4050, L100.0100 ####[facility] [address] [place], [address] Basophils/100 WBC (Bld) 1.2 % High 0-1 [facility] Comment on above: Performed By: #### L 501.5200, L500.4050, L100.0100 ####[facility] [address] [place], [address] Eosinophils/100 WBC (Bld) 3.3 % Normal 0-5 [facility] Comment on above: Performed By: #### L 501.5200, L500.4050, L100.0100 ####[facility] [address] [place], [address] Erythrocyte distribution width (RBC) [Ratio] 17.5 % High 11.6-14.6 [facility] Comment on above: Performed By: #### L 501.5200, L500.4050, L100.0100 ####[facility] [address] [place], [address] Hematocrit (Bld) [Volume fraction] 33.6 % Low 40-54 [facility] Comment on above: Performed By: #### L 501.5200, L500.4050, L100.0100 ####[facility] [address] [place], [address] Hemoglobin (Bld) [Mass/Vol] 11.5 g/dL Low 13.0-16.5 [facility] Comment on above: Performed By: #### L 501.5200, L500.4050, L100.0100 ####[facility] [address] [place], [address] IG% 0.500 Normal 0.0-0.9 [facility] Comment on above: Result Comment: IG% - Immature Granulocytes (promyelocytes, myelocytes andmetamyelocytes) > 1% indicates that a LEFT SHIFT is Present. Performed By: #### L 501.5200, L500.4050, L100.0100 ####[facility] [address] [place], [address] Lymphocytes/100 WBC (Bld) 8.8 % Low 19-41 [facility] Comment on above: Performed By: #### L 501.5200, L500.4050, L100.0100 ####[facility] [address] [place], [address] MCH (RBC) [Entitic mass] 31.5 pg Normal 27.0-32.0 [facility] Comment on above: Performed By: #### L 501.5200, L500.4050, L100.0100 ####[facility] [address] [place], [address] MCHC (RBC) [Mass/Vol] 34.2 g/dL Normal 32-36 [facility] Comment on above: Performed By: #### L 501.5200, L500.4050, L100.0100 ####[facility] [address] [place], [address] MCV (RBC) [Entitic vol] 92.1 fL Normal 80-94 [facility] Comment on above: Performed By: #### L 501.5200, L500.4050, L100.0100 ####[facility] [address] [place], [address] Monocytes/100 WBC (Bld) 14.8 % High 0-10 [facility] Comment on above: Performed By: #### L 501.5200, L500.4050, L100.0100 ####[facility] [address] [place], [address] Neutrophils/100 WBC (Bld) 71.4 % High 47-70 [facility] Comment on above: Performed By: #### L 501.5200, L500.4050, L100.0100 ####[facility] [address] [place], [address] Nucleated RBC (Bld) [#/Vol] 0 10*3/uL Normal 0-5 [facility] Comment on above: Performed By: #### L 501.5200, L500.4050, L100.0100 ####[facility] [address] [place], [address] Platelet mean volume (Bld) [Entitic vol] 8.7 fL Normal 6.2-12.0 [facility] Comment on above: Performed By: #### L 501.5200, L500.4050, L100.0100 ####[facility] [address] [place], [address] Platelets (Bld) [#/Vol] 144 10*3/uL Low 150-450 [facility] Comment on above: Performed By: #### L 501.5200, L500.4050, L100.0100 ####[facility] [address] [place], [address] RBC (Bld) [#/Vol] 3.65 10*6/uL Low 4.6-6.2 [facility] Comment on above: Performed By: #### L 501.5200, L500.4050, L100.0100 ####[facility] [address] [place], [address] RDW SD 54.5 fl High 35.1-43.9 [facility] Comment on above: Performed By: #### L 501.5200, L500.4050, L100.0100 ####[facility] [address] [place], [address] WBC (Bld) [#/Vol] 6.0 10*3/uL Normal 4.4-11.0 [facility] Comment on above: Performed By: #### L 501.5200, L500.4050, L100.0100 ####[facility] [address] [place], [address] Comprehensive Metabolic Prof ilon 12-06-2024 Albumin [Mass/Vol] 2.9 g/dL Low 3.2-5.0 [facility] Comment on above: Performed By: #### L 501.5200, L500.4050, L100.0100 ####[facility] [address] [place], [address] Albumin/Globulin [Mass ratio] 0.7 {ratio} Low 0.9-2.4 [facility] Comment on above: Performed By: #### L 501.5200, L500.4050, L100.0100 ####[facility] [address] [place], [address] ALK P 101 U/L Normal 45-117 [facility] Comment on above: Performed By: #### L 501.5200, L500.4050, L100.0100 ####[facility] [address] [place], [address] ALT [Catalytic activity/Vol] 37 U/L Normal 16-61 [facility] Comment on above: Performed By: #### L 501.5200, L500.4050, L100.0100 ####[facility] [address] [place], [address] AST [Catalytic activity/Vol] 35 U/L Normal 15-37 [facility] Comment on above: Performed By: #### L 501.5200, L500.4050, L100.0100 ####[facility] [address] [place], [address] Bilirubin [Mass/Vol] 0.40 mg/dL Normal 0.20-1.00 [facility] Comment on above: Result Comment: For patients on eltrombopag therapy, use of Dimension Telferner TBIL is not recommended. Performed By: #### L 501.5200, L500.4050, L100.0100 ####[facility] [address] [place], [address] BUN/CRE 15.1 RATIO Normal 10-20 [facility] Comment on above: Performed By: #### L 501.5200, L500.4050, L100.0100 ####[facility] [address] [place], [address] CA,Total 9.4 mg/dL Normal 8.5-10.1 [facility] Comment on above: Performed By: #### L 501.5200, L500.4050, L100.0100 ####[facility] [address] [place], [address] Chloride [Moles/Vol] 108 mmol/L High 98-107 [facility] Comment on above: Performed By: #### L 501.5200, L500.4050, L100.0100 ####[facility] [address] [place], [address] CO2 [Moles/Vol] 28.0 mmol/L Normal 21.0-32.0 [facility] Comment on above: Performed By: #### L 501.5200, L500.4050, L100.0100 ####[facility] [address] [place], [address] Creatinine [Mass/Vol] 1.39 mg/dL High 0.70-1.30 [facility] Comment on above: Result Comment: The validity of the calculated GFR GFRAA in patients over70 years has not been determined. Clinical correlation isessential. Performed By: #### L 501.5200, L500.4050, L100.0100 ####[facility] [address] [place], [address] ECRCL 44.71 ml/min Normal [facility] Comment on above: Performed By: #### L 501.5200, L500.4050, L100.0100 ####[facility] [address] [place], [address] EST GFR - AA 67 mL/min Normal >60 [facility] Comment on above: Result Comment: Afri can Sudanese GFR Calc Performed By: #### L 501.5200, L500.4050, L100.0100 ####[facility] [address] [place], [address] GAP 7 Normal 5-15 [facility] Comment on above: Performed By: #### L 501.5200, L500.4050, L100.0100 ####[facility] [address] [place], [address] GFR/1.73 sq M.predicted among non-blacks MDRD (S/P/Bld) [Vol rate/Area] 56 mL/min/{1.73_m2} Low >60 [facility] Comment on above: Result Comment: Non- GFR Calc Performed By: #### L 501.5200, L500.4050, L100.0100 ####[facility] [address] [place], [address] Globulin (S) [Mass/Vol] 4.3 g/dL High 2.2-4.2 [facility] Comment on above: Performed By: #### L 501.5200, L500.4050, L100.0100 ####[facility] [address] [place], [address] Glucose [Mass/Vol] 83 mg/dL Normal 74-106 [facility] Comment on above: Performed By: #### L 501.5200, L500.4050, L100.0100 ####[facility] [address] [place], [address] Potassium [Moles/Vol] 3.4 mmol/L Low 3.5-5.1 [facility] Comment on above: Performed By: #### L 501.5200, L500.4050, L100.0100 ####[facility] [address] [place], [address] Sodium [Moles/Vol] 142 mmol/L Normal 136-145 [facility] Comment on above: Performed By: #### L 501.5200, L500.4050, L100.0100 ####[facility] [address] [place], [address] T PROT 7.2 g/dL Normal 6.4-8.2 [facility] Comment on above: Performed By: #### L 501.5200, L500.4050, L100.0100 ####[facility] [address] [place], [address] Urea nitrogen [Mass/Vol] 21 mg/dL High 7-18 [facility] Comment on above: Performed By: #### L 501.5200, L500.4050, L100.0100 ####[facility] [address] [place], [address] Magnesiumon 12-06-2024 Magnesium [Mass/Vol] 2.3 mg/dL Normal 1.6-2.6 [facility] Comment on above: Performed By: #### L 501.5200, L500.4050, L100.0100 ####[facility] [address] [place], [address] Oncology Visit Reporton 11-20 Oncology Visit Report Normal [facility] Urine Cultureon 11-24-2024 URC Normal [facility] Comment on above: Performed By: #### L 400.2010, M100.2200 ####[facility] [address] [place], [address] CBC W/Diff, Automatedon Absolute Lymph 0.48 X10 3/uL Low 0.83-4.51 [facility] Comment on above: Performed By: #### L 100.0100, L501.5200, L500.4050 ####[facility] [address] [place], [address] Absolute Neut 4.0 X10 3/uL Normal 2.0-7.7 [facility] Comment on above: Performed By: #### L 100.0100, L501.5200, L500.4050 ####[facility] [address] [place], [address] Basophils/100 WBC (Bld) 0.9 % Normal 0-1 [facility] Comment on above: Performed By: #### L 100.0100, L501.5200, L500.4050 ####[facility] [address] [place], [address] Eosinophils/100 WBC (Bld) 3.6 % Normal 0-5 [facility] Comment on above: Performed By: #### L 100.0100, L501.5200, L500.4050 ####[facility] [address] [place], [address] Erythrocyte distribution width (RBC) [Ratio] 16.2 % High 11.6-14.6 [facility] Comment on above: Performed By: #### L 100.0100, L501.5200, L500.4050 ####[facility] [address] [place], [address] Hematocrit (Bld) [Volume fraction] 32.9 % Low 40-54 [facility] Comment on above: Performed By: #### L 100.0100, L501.5200, L500.4050 ####[facility] [address] [place], [address] Hemoglobin (Bld) [Mass/Vol] 10.9 g/dL Low 13.0-16.5 [facility] Comment on above: Performed By: #### L 100.0100, L501.5200, L500.4050 ####[facility] [address] [place], [address] IG% 0.800 Normal 0.0-0.9 [facility] Comment on above: Result Comment: IG% - Immature Granulocytes (promyelocytes, myelocytes andmetamyelocytes) > 1% indicates that a LEFT SHIFT is Present. Performed By: #### L 100.0100, L501.5200, L500.4050 ####[facility] [address] [place], [address] Lymphocytes/100 WBC (Bld) 9.0 % Low 19-41 [facility] Comment on above: Performed By: #### L 100.0100, L501.5200, L500.4050 ####[facility] [address] [place], [address] MCH (RBC) [Entitic mass] 30.5 pg Normal 27.0-32.0 [facility] Comment on above: Performed By: #### L 100.0100, L501.5200, L500.4050 ####[facility] [address] [place], [address] MCHC (RBC) [Mass/Vol] 33.1 g/dL Normal 32-36 [facility] Comment on above: Performed By: #### L 100.0100, L501.5200, L500.4050 ####[facility] [address] [place], [address] MCV (RBC) [Entitic vol] 92.2 fL Normal 80-94 [facility] Comment on above: Performed By: #### L 100.0100, L501.5200, L500.4050 ####[facility] [address] [place], [address] Monocytes/100 WBC (Bld) 10.9 % High 0-10 [facility] Comment on above: Performed By: #### L 100.0100, L501.5200, L500.4050 ####[facility] [address] [place], [address] Neutrophils/100 WBC (Bld) 74.8 % High 47-70 [facility] Comment on above: Performed By: #### L 100.0100, L501.5200, L500.4050 ####[facility] [address] [place], [address] Nucleated RBC (Bld) [#/Vol] 0 10*3/uL Normal 0-5 [facility] Comment on above: Performed By: #### L 100.0100, L501.5200, L500.4050 ####[facility] [address] [place], [address] Platelet mean volume (Bld) [Entitic vol] 8.0 fL Normal 6.2-12.0 [facility] Comment on above: Performed By: #### L 100.0100, L501.5200, L500.4050 ####[facility] [address] [place], [address] Platelets (Bld) [#/Vol] 272 10*3/uL Normal 150-450 [facility] Comment on above: Performed By: #### L 100.0100, L501.5200, L500.4050 ####[facility] [address] [place], [address] RBC (Bld) [#/Vol] 3.57 10*6/uL Low 4.6-6.2 [facility] Comment on above: Performed By: #### L 100.0100, L501.5200, L500.4050 ####[facility] [address] [place], [address] RDW SD 54.3 fl High 35.1-43.9 [facility] Comment on above: Performed By: #### L 100.0100, L501.5200, L500.4050 ####[facility] [address] [place], [address] WBC (Bld) [#/Vol] 5.3 10*3/uL Normal 4.4-11.0 [facility] Comment on above: Performed By: #### L 100.0100, L501.5200, L500.4050 ####[facility] [address] [place], [address] Comprehensive Metabolic Prof hion 11-22-2024 Albumin [Mass/Vol] 2.9 g/dL Low 3.2-5.0 [facility] Comment on above: Performed By: #### L 100.0100, L501.5200, L500.4050 ####[facility] [address] [place], [address] Albumin/Globulin [Mass ratio] 0.7 {ratio} Low 0.9-2.4 [facility] Comment on above: Performed By: #### L 100.0100, L501.5200, L500.4050 ####[facility] [address] [place], [address] ALK P 89 U/L Normal 45-117 [facility] Comment on above: Performed By: #### L 100.0100, L501.5200, L500.4050 ####[facility] [address] [place], [address] ALT [Catalytic activity/Vol] 17 U/L Normal 16-61 [facility] Comment on above: Performed By: #### L 100.0100, L501.5200, L500.4050 ####[facility] [address] [place], [address] AST [Catalytic activity/Vol] 12 U/L Low 15-37 [facility] Comment on above: Performed By: #### L 100.0100, L501.5200, L500.4050 ####[facility] [address] [place], [address] Bilirubin [Mass/Vol] 0.30 mg/dL Normal 0.20-1.00 [facility] Comment on above: Result Comment: For patients on eltrombopag therapy, use of Dimension Telferner TBIL is not recommended. Performed By: #### L 100.0100, L501.5200, L500.4050 ####[facility] [address] [place], [address] BUN/CRE 14.3 RATIO Normal 10-20 [facility] Comment on above: Performed By: #### L 100.0100, L501.5200, L500.4050 ####[facility] [address] [place], [address] CA,Total 9.0 mg/dL Normal 8.5-10.1 [facility] Comment on above: Performed By: #### L 100.0100, L501.5200, L500.4050 ####[facility] [address] [place], [address] Chloride [Moles/Vol] 108 mmol/L High 98-107 [facility] Comment on above: Performed By: #### L 100.0100, L501.5200, L500.4050 ####[facility] [address] [place], [address] CO2 [Moles/Vol] 28.0 mmol/L Normal 21.0-32.0 [facility] Comment on above: Performed By: #### L 100.0100, L501.5200, L500.4050 ####[facility] [address] [place], [address] Creatinine [Mass/Vol] 1.61 mg/dL High 0.70-1.30 [facility] Comment on above: Result Comment: The validity of the calculated GFR GFRAA in patients over70 years has not been determined. Clinical correlation isessential. Performed By: #### L 100.0100, L501.5200, L500.4050 ####[facility] [address] [place], [address] ECRCL 38.64 ml/min Normal [facility] Comment on above: Performed By: #### L 100.0100, L501.5200, L500.4050 ####[facility] [address] [place], [address] EST GFR - AA 57 mL/min Low >60 [facility] Comment on above: Result Comment: Afri can Sudanese GFR Calc Performed By: #### L 100.0100, L501.5200, L500.4050 ####[facility] [address] [place], [address] GAP 4 Low 5-15 [facility] Comment on above: Performed By: #### L 100.0100, L501.5200, L500.4050 ####[facility] [address] [place], [address] GFR/1.73 sq M.predicted among non-blacks MDRD (S/P/Bld) [Vol rate/Area] 47 mL/min/{1.73_m2} Low >60 [facility] Comment on above: Result Comment: Non- GFR Calc Performed By: #### L 100.0100, L501.5200, L500.4050 ####[facility] [address] [place], [address] Globulin (S) [Mass/Vol] 4.3 g/dL High 2.2-4.2 [facility] Comment on above: Performed By: #### L 100.0100, L501.5200, L500.4050 ####[facility] [address] [place], [address] Glucose [Mass/Vol] 91 mg/dL Normal 74-106 [facility] Comment on above: Performed By: #### L 100.0100, L501.5200, L500.4050 ####[facility] [address] [place], [address] Potassium [Moles/Vol] 3.8 mmol/L Normal 3.5-5.1 [facility] Comment on above: Performed By: #### L 100.0100, L501.5200, L500.4050 ####[facility] [address] [place], [address] Sodium [Moles/Vol] 140 mmol/L Normal 136-145 [facility] Comment on above: Performed By: #### L 100.0100, L501.5200, L500.4050 ####[facility] [address] [place], [address] T PROT 7.2 g/dL Normal 6.4-8.2 [facility] Comment on above: Performed By: #### L 100.0100, L501.5200, L500.4050 ####[facility] [address] [place], [address] Urea nitrogen [Mass/Vol] 23 mg/dL High 7-18 [facility] Comment on above: Performed By: #### L 100.0100, L501.5200, L500.4050 ####[facility] [address] [place], [address] Magnesiumon 11-22-2024 Magnesium [Mass/Vol] 2.2 mg/dL Normal 1.6-2.6 [facility] Comment on above: Performed By: #### L 100.0100, L501.5200, L500.4050 ####[facility] [address] [place], [address] Oncology Visit Reporton Oncology Visit Report Normal [facility] Urinalysis, Routine (Dipstic k)on 11-22-2024 BILIRUBIN URINE Negative Normal Negative [facility] Comment on above: Order Comment: DERECK TER SPECIMEN Performed By: #### L 400.2010, ####[facility] [address] [place], [address] Clarity (U) Sl. Cloudy Normal Clear [facility] Comment on above: Order Comment: DERECK TER SPECIMEN Performed By: #### L 400.2010, ####[facility] [address] [place], [address] Color (U) Yellow Normal Yellow [facility] Comment on above: Order Comment: DERECK TER SPECIMEN Performed By: #### L 400.2010, ####[facility] [address] [place], [address] GLUCOSE, UR Normal Normal Normal [facility] Comment on above: Order Comment: DERECK TER SPECIMEN Performed By: #### L 400.2010, ####[facility] [address] [place], [address] KETONE UR Negative Normal Negative [facility] Comment on above: Order Comment: DERECK TER SPECIMEN Performed By: #### L 400.2010, ####[facility] [address] [place], [address] LEUK ESTERASE 500 /ul Abnormal Negative [facility] Comment on above: Order Comment: DERECK TER SPECIMEN Performed By: #### L 400.2010, ####[facility] [address] [place], [address] Nitrite Ql (U) Positive Abnormal Negative [facility] Comment on above: Order Comment: DERECK TER SPECIMEN Performed By: #### L 400.2010, ####[facility] [address] [place], [address] OCCULT BLOOD-UR 50 /ul Abnormal Negative [facility] Comment on above: Order Comment: DERECK TER SPECIMEN Performed By: #### L 400.2010, ####[facility] [address] [place], [address] pH UR 8.0 Normal 5.0 - 8.0 [facility] Comment on above: Order Comment: DERECK TER SPECIMEN Performed By: #### L 400.2010, ####[facility] [address] [place], [address] PROT DIPSTX 100 mg/dl Abnormal Negative [facility] Comment on above: Order Comment: DERECK TER SPECIMEN Performed By: #### L 400.2010, ####[facility] [address] [place], [address] SP.GR. DIPSTX 1.010 Normal 1.002-1.03 0 [facility] Comment on above: Order Comment: DERECK TER SPECIMEN Performed By: #### L 400.2010, ####[facility] [address] [place], [address] UROBILI Normal Normal Normal [facility] Comment on above: Order Comment: DERECK TER SPECIMEN Performed By: #### L 400.2010, ####[facility] [address] [place], [address] Urine cultureOrdered By: Duy Mercedes on 11-22-2024 Bacteria identified Cx Nom (U) Proteus hauseri Abnormal [facility] NEPHROSTOMY DRAIN CHANGEon 0 11-15-2024 NEPHROSTOMY [...] medication(s), I spent 52 minutes of continuous ntjg-cx-geko time with the patient. COMPARISON: CT dated [...] over a wire and a new 10.2 [place] multipurpose catheter was inserted under fluoroscopic guidance. [...] within the collecting system. A new 10.2 [place] multipurpose catheter was inserted under fluoroscopic guidance. [...] hydronephrosis. IMPRESSION: 1. Successful exchange of bilateral 10.2-[place] multipurpose nephrostomy catheters. 2. Routine exchange in 8-10 weeks Carmen Chambers MD was in the room and participated during all (more content not included)... Normal [facility] ONC Echo Completeon 11-10-19 25 ONC Echo Complete Normal [facility] Carcinoembryonic Antigenon 0 11-09-2024 CEA 1.7 ng/mL Normal 0.0-4.7 [facility] Comment on above: Order Comment: PLEAS E ADD TO BLOOD IN THE LAB. THANK YOU!! Result Comment: Nons mokers <3.9 Smokers <5.6[employer] Electrochemiluminescence Immunoassay(ECLIA)Values obtained with different assay methods or kitscannot be used interchangeably. Results cannot beinterpreted as absolute evidence of the presence orabsence of malignant disease.Performed at: [place] [id number] Director: Javid Diehl PhD, Phone: [phone] Performed By: #### L 5519.8308 ####[facility] [address] [facility] [place], [address] CBC W/Diff, Automatedon 10-21 Absolute Lymph 0.40 X10 3/uL Low 0.83-4.51 [facility] Comment on above: Performed By: #### L 501.5200, L100.0100, L500.4050 ####[facility] [address] [place], [address] Absolute Neut 6.4 X10 3/uL Normal 2.0-7.7 [facility] Comment on above: Performed By: #### L 501.5200, L100.0100, L500.4050 ####[facility] [address] [place], [address] Basophils/100 WBC (Bld) 0.6 % Normal 0-1 [facility] Comment on above: Performed By: #### L 501.5200, L100.0100, L500.4050 ####[facility] [address] [place], [address] Eosinophils/100 WBC (Bld) 4.4 % Normal 0-5 [facility] Comment on above: Performed By: #### L 501.5200, L100.0100, L500.4050 ####[facility] [address] [place], [address] Erythrocyte distribution width (RBC) [Ratio] 16.9 % High 11.6-14.6 [facility] Comment on above: Performed By: #### L 501.5200, L100.0100, L500.4050 ####[facility] [address] [place], [address] Hematocrit (Bld) [Volume fraction] 32.5 % Low 40-54 [facility] Comment on above: Performed By: #### L 501.5200, L100.0100, L500.4050 ####[facility] [address] [place], [address] Hemoglobin (Bld) [Mass/Vol] 10.6 g/dL Low 13.0-16.5 [facility] Comment on above: Performed By: #### L 501.5200, L100.0100, L500.4050 ####[facility] [address] [place], [address] IG% 0.600 Normal 0.0-0.9 [facility] Comment on above: Result Comment: IG% - Immature Granulocytes (promyelocytes, myelocytes andmetamyelocytes) > 1% indicates that a LEFT SHIFT is Present. Performed By: #### L 501.5200, L100.0100, L500.4050 ####[facility] [address] [place], [address] Lymphocytes/100 WBC (Bld) 5.2 % Low 19-41 [facility] Comment on above: Performed By: #### L 501.5200, L100.0100, L500.4050 ####[facility] [address] [place], [address] MCH (RBC) [Entitic mass] 30.3 pg Normal 27.0-32.0 [facility] Comment on above: Performed By: #### L 501.5200, L100.0100, L500.4050 ####[facility] [address] [place], [address] MCHC (RBC) [Mass/Vol] 32.6 g/dL Normal 32-36 [facility] Comment on above: Performed By: #### L 501.5200, L100.0100, L500.4050 ####[facility] [address] [place], [address] MCV (RBC) [Entitic vol] 92.9 fL Normal 80-94 [facility] Comment on above: Performed By: #### L 501.5200, L100.0100, L500.4050 ####[facility] [address] [place], [address] Monocytes/100 WBC (Bld) 6.8 % Normal 0-10 [facility] Comment on above: Performed By: #### L 501.5200, L100.0100, L500.4050 ####[facility] [address] [place], [address] Neutrophils/100 WBC (Bld) 82.4 % High 47-70 [facility] Comment on above: Performed By: #### L 501.5200, L100.0100, L500.4050 ####[facility] [address] [place], [address] Nucleated RBC (Bld) [#/Vol] 0 10*3/uL Normal 0-5 [facility] Comment on above: Performed By: #### L 501.5200, L100.0100, L500.4050 ####[facility] [address] [place], [address] Platelet mean volume (Bld) [Entitic vol] 8.3 fL Normal 6.2-12.0 [facility] Comment on above: Performed By: #### L 501.5200, L100.0100, L500.4050 ####[facility] [address] [place], [address] Platelets (Bld) [#/Vol] 273 10*3/uL Normal 150-450 [facility] Comment on above: Performed By: #### L 501.5200, L100.0100, L500.4050 ####[facility] [address] [place], [address] RBC (Bld) [#/Vol] 3.50 10*6/uL Low 4.6-6.2 [facility] Comment on above: Performed By: #### L 501.5200, L100.0100, L500.4050 ####[facility] [address] [place], [address] RDW SD 57.6 fl High 35.1-43.9 [facility] Comment on above: Performed By: #### L 501.5200, L100.0100, L500.4050 ####[facility] [address] [place], [address] WBC (Bld) [#/Vol] 7.8 10*3/uL Normal 4.4-11.0 [facility] Comment on above: Performed By: #### L 501.5200, L100.0100, L500.4050 ####[facility] [address] [place], [address] Comprehensive Metabolic Prof ilon 11-08-2024 Albumin [Mass/Vol] 3.0 g/dL Low 3.2-5.0 [facility] Comment on above: Performed By: #### L 501.5200, L100.0100, L500.4050 ####[facility] [address] [place], [address] Albumin/Globulin [Mass ratio] 0.7 {ratio} Low 0.9-2.4 [facility] Comment on above: Performed By: #### L 501.5200, L100.0100, L500.4050 ####[facility] [address] [place], [address] ALK P 86 U/L Normal 45-117 [facility] Comment on above: Performed By: #### L 501.5200, L100.0100, L500.4050 ####[facility] [address] [place], [address] ALT [Catalytic activity/Vol] 13 U/L Low 16-61 [facility] Comment on above: Performed By: #### L 501.5200, L100.0100, L500.4050 ####[facility] [address] [place], [address] AST [Catalytic activity/Vol] 14 U/L Low 15-37 [facility] Comment on above: Performed By: #### L 501.5200, L100.0100, L500.4050 ####[facility] [address] [place], [address] Bilirubin [Mass/Vol] 0.40 mg/dL Normal 0.20-1.00 [facility] Comment on above: Result Comment: For patients on eltrombopag therapy, use of Dimension Telferner TBIL is not recommended. Performed By: #### L 501.5200, L100.0100, L500.4050 ####[facility] [address] [place], [address] BUN/CRE 23.9 RATIO High 10-20 [facility] Comment on above: Performed By: #### L 501.5200, L100.0100, L500.4050 ####[facility] [address] [place], [address] CA,Total 9.6 mg/dL Normal 8.5-10.1 [facility] Comment on above: Performed By: #### L 501.5200, L100.0100, L500.4050 ####[facility] [address] [place], [address] Chloride [Moles/Vol] 106 mmol/L Normal 98-107 [facility] Comment on above: Performed By: #### L 501.5200, L100.0100, L500.4050 ####[facility] [address] [place], [address] CO2 [Moles/Vol] 30.0 mmol/L Normal 21.0-32.0 [facility] Comment on above: Performed By: #### L 501.5200, L100.0100, L500.4050 ####[facility] [address] [place], [address] Creatinine [Mass/Vol] 1.34 mg/dL High 0.70-1.30 [facility] Comment on above: Result Comment: The validity of the calculated GFR GFRAA in patients over70 years has not been determined. Clinical correlation isessential. Performed By: #### L 501.5200, L100.0100, L500.4050 ####[facility] [address] [place], [address] ECRCL 45.56 ml/min Normal [facility] Comment on above: Performed By: #### L 501.5200, L100.0100, L500.4050 ####[facility] [address] [place], [address] EST GFR - AA 70 mL/min Normal >60 [facility] Comment on above: Result Comment: Afri can Sudanese GFR Calc Performed By: #### L 501.5200, L100.0100, L500.4050 ####[facility] [address] [place], [address] GAP 4 Low 5-15 [facility] Comment on above: Performed By: #### L 501.5200, L100.0100, L500.4050 ####[facility] [address] [place], [address] GFR/1.73 sq M.predicted among non-blacks MDRD (S/P/Bld) [Vol rate/Area] 58 mL/min/{1.73_m2} Low >60 [facility] Comment on above: Result Comment: Non- GFR Calc Performed By: #### L 501.5200, L100.0100, L500.4050 ####[facility] [address] [place], [address] Globulin (S) [Mass/Vol] 4.4 g/dL High 2.2-4.2 [facility] Comment on above: Performed By: #### L 501.5200, L100.0100, L500.4050 ####[facility] [address] [place], [address] Glucose [Mass/Vol] 96 mg/dL Normal 74-106 [facility] Comment on above: Performed By: #### L 501.5200, L100.0100, L500.4050 ####[facility] [address] [place], [address] Potassium [Moles/Vol] 3.4 mmol/L Low 3.5-5.1 [facility] Comment on above: Performed By: #### L 501.5200, L100.0100, L500.4050 ####[facility] [address] [place], [address] Sodium [Moles/Vol] 140 mmol/L Normal 136-145 [facility] Comment on above: Performed By: #### L 501.5200, L100.0100, L500.4050 ####[facility] [address] [place], [address] T PROT 7.4 g/dL Normal 6.4-8.2 [facility] Comment on above: Performed By: #### L 501.5200, L100.0100, L500.4050 ####[facility] [address] [place], [address] Urea nitrogen [Mass/Vol] 32 mg/dL High 7-18 [facility] Comment on above: Performed By: #### L 501.5200, L100.0100, L500.4050 ####[facility] [address] [place], [address] Magnesiumon 11-08-2024 Magnesium [Mass/Vol] 2.1 mg/dL Normal 1.6-2.6 [facility] Comment on above: Performed By: #### L 501.5200, L100.0100, L500.4050 ####[facility] [address] [place], [address] Oncology Visit Reporton 10-21 Oncology Visit Report Normal [facility] Serum or plasma thyroid stim ulating hormone (TSH) measurement (units/volume)Ordered By: Enrique Romero on 11-08-2024 TSH Qn 2.080 uIU/mL 0.358-3.74 0 [facility] Thyroid Stim Hormone (TSH)on 11-08-2024 TSH 2.080 uIU/mL Normal 0.358-3.74 0 [facility] Comment on above: Performed By: #### L 501.9520 ####[facility] [address] [place], [address] Cardiology Visit Reporton Cardiology Visit Report Normal [facility] CBC W/Diff, Automatedon 10-20 Absolute Lymph 0.49 X10 3/uL Low 0.83-4.51 [facility] Comment on above: Performed By: #### L 100.0100, L501.5200, L500.4050 ####[facility] [address] [place], [address] Absolute Neut 4.5 X10 3/uL Normal 2.0-7.7 [facility] Comment on above: Performed By: #### L 100.0100, L501.5200, L500.4050 ####[facility] [address] [place], [address] Basophils/100 WBC (Bld) 1.4 % High 0-1 [facility] Comment on above: Performed By: #### L 100.0100, L501.5200, L500.4050 ####[facility] [address] [place], [address] Eosinophils/100 WBC (Bld) 4.1 % Normal 0-5 [facility] Comment on above: Performed By: #### L 100.0100, L501.5200, L500.4050 ####[facility] [address] [place], [address] Erythrocyte distribution width (RBC) [Ratio] 17.3 % High 11.6-14.6 [facility] Comment on above: Performed By: #### L 100.0100, L501.5200, L500.4050 ####[facility] [address] [place], [address] Hematocrit (Bld) [Volume fraction] 32.3 % Low 40-54 [facility] Comment on above: Performed By: #### L 100.0100, L501.5200, L500.4050 ####[facility] [address] [place], [address] Hemoglobin (Bld) [Mass/Vol] 10.5 g/dL Low 13.0-16.5 [facility] Comment on above: Performed By: #### L 100.0100, L501.5200, L500.4050 ####[facility] [address] [place], [address] IG% 0.900 Normal 0.0-0.9 [facility] Comment on above: Result Comment: IG% - Immature Granulocytes (promyelocytes, myelocytes andmetamyelocytes) > 1% indicates that a LEFT SHIFT is Present. Performed By: #### L 100.0100, L501.5200, L500.4050 ####[facility] [address] [place], [address] Lymphocytes/100 WBC (Bld) 8.4 % Low 19-41 [facility] Comment on above: Performed By: #### L 100.0100, L501.5200, L500.4050 ####[facility] [address] [place], [address] MCH (RBC) [Entitic mass] 30.2 pg Normal 27.0-32.0 [facility] Comment on above: Performed By: #### L 100.0100, L501.5200, L500.4050 ####[facility] [address] [place], [address] MCHC (RBC) [Mass/Vol] 32.5 g/dL Normal 32-36 [facility] Comment on above: Performed By: #### L 100.0100, L501.5200, L500.4050 ####[facility] [address] [place], [address] MCV (RBC) [Entitic vol] 92.8 fL Normal 80-94 [facility] Comment on above: Performed By: #### L 100.0100, L501.5200, L500.4050 ####[facility] [address] [place], [address] Monocytes/100 WBC (Bld) 8.4 % Normal 0-10 [facility] Comment on above: Performed By: #### L 100.0100, L501.5200, L500.4050 ####[facility] [address] [place], [address] Neutrophils/100 WBC (Bld) 76.8 % High 47-70 [facility] Comment on above: Performed By: #### L 100.0100, L501.5200, L500.4050 ####[facility] [address] [place], [address] Nucleated RBC (Bld) [#/Vol] 0 10*3/uL Normal 0-5 [facility] Comment on above: Performed By: #### L 100.0100, L501.5200, L500.4050 ####[facility] [address] [place], [address] Platelet mean volume (Bld) [Entitic vol] 8.2 fL Normal 6.2-12.0 [facility] Comment on above: Performed By: #### L 100.0100, L501.5200, L500.4050 ####[facility] [address] [place], [address] Platelets (Bld) [#/Vol] 297 10*3/uL Normal 150-450 [facility] Comment on above: Performed By: #### L 100.0100, L501.5200, L500.4050 ####[facility] [address] [place], [address] RBC (Bld) [#/Vol] 3.48 10*6/uL Low 4.6-6.2 [facility] Comment on above: Performed By: #### L 100.0100, L501.5200, L500.4050 ####[facility] [address] [place], [address] RDW SD 58.8 fl High 35.1-43.9 [facility] Comment on above: Performed By: #### L 100.0100, L501.5200, L500.4050 ####[facility] [address] [place], [address] WBC (Bld) [#/Vol] 5.9 10*3/uL Normal 4.4-11.0 [facility] Comment on above: Performed By: #### L 100.0100, L501.5200, L500.4050 ####[facility] [address] [place], [address] Comprehensive Metabolic Prof ilon 11-03-2024 Albumin [Mass/Vol] 3.1 g/dL Low 3.2-5.0 [facility] Comment on above: Performed By: #### L 100.0100, L501.5200, L500.4050 ####[facility] [address] [place], [address] Albumin/Globulin [Mass ratio] 0.7 {ratio} Low 0.9-2.4 [facility] Comment on above: Performed By: #### L 100.0100, L501.5200, L500.4050 ####[facility] [address] [place], [address] ALK P 91 U/L Normal 45-117 [facility] Comment on above: Performed By: #### L 100.0100, L501.5200, L500.4050 ####[facility] [address] [place], [address] ALT [Catalytic activity/Vol] 15 U/L Low 16-61 [facility] Comment on above: Performed By: #### L 100.0100, L501.5200, L500.4050 ####[facility] [address] [place], [address] AST [Catalytic activity/Vol] 12 U/L Low 15-37 [facility] Comment on above: Performed By: #### L 100.0100, L501.5200, L500.4050 ####[facility] [address] [place], [address] Bilirubin [Mass/Vol] 0.30 mg/dL Normal 0.20-1.00 [facility] Comment on above: Result Comment: For patients on eltrombopag therapy, use of Dimension Telferner TBIL is not recommended. Performed By: #### L 100.0100, L501.5200, L500.4050 ####[facility] [address] [place], [address] BUN/CRE 26.4 RATIO High 10-20 [facility] Comment on above: Performed By: #### L 100.0100, L501.5200, L500.4050 ####[facility] [address] [place], [address] CA,Total 9.5 mg/dL Normal 8.5-10.1 [facility] Comment on above: Performed By: #### L 100.0100, L501.5200, L500.4050 ####[facility] [address] [place], [address] Chloride [Moles/Vol] 106 mmol/L Normal 98-107 [facility] Comment on above: Performed By: #### L 100.0100, L501.5200, L500.4050 ####[facility] [address] [place], [address] CO2 [Moles/Vol] 29.0 mmol/L Normal 21.0-32.0 [facility] Comment on above: Performed By: #### L 100.0100, L501.5200, L500.4050 ####[facility] [address] [place], [address] Creatinine [Mass/Vol] 1.44 mg/dL High 0.70-1.30 [facility] Comment on above: Result Comment: The validity of the calculated GFR GFRAA in patients over70 years has not been determined. Clinical correlation isessential. Performed By: #### L 100.0100, L501.5200, L500.4050 ####[facility] [address] [place], [address] ECRCL 42.40 ml/min Normal [facility] Comment on above: Performed By: #### L 100.0100, L501.5200, L500.4050 ####[facility] [address] [place], [address] EST GFR - AA 65 mL/min Normal >60 [facility] Comment on above: Result Comment: Afri can Sudanese GFR Calc Performed By: #### L 100.0100, L501.5200, L500.4050 ####[facility] [address] [place], [address] GAP 5 Normal 5-15 [facility] Comment on above: Performed By: #### L 100.0100, L501.5200, L500.4050 ####[facility] [address] [place], [address] GFR/1.73 sq M.predicted among non-blacks MDRD (S/P/Bld) [Vol rate/Area] 53 mL/min/{1.73_m2} Low >60 [facility] Comment on above: Result Comment: Non- GFR Calc Performed By: #### L 100.0100, L501.5200, L500.4050 ####[facility] [address] [place], [address] Globulin (S) [Mass/Vol] 4.6 g/dL High 2.2-4.2 [facility] Comment on above: Performed By: #### L 100.0100, L501.5200, L500.4050 ####[facility] [address] [place], [address] Glucose [Mass/Vol] 104 mg/dL Normal 74-106 [facility] Comment on above: Result Comment: Fast ing Glucose result from 100 to 125 mg/dLsuggests IMPAIRED HOMEOSTASIS per A.D.A. criteria. Performed By: #### L 100.0100, L501.5200, L500.4050 ####[facility] [address] [place], [address] Potassium [Moles/Vol] 3.9 mmol/L Normal 3.5-5.1 [facility] Comment on above: Performed By: #### L 100.0100, L501.5200, L500.4050 ####[facility] [address] [place], [address] Sodium [Moles/Vol] 140 mmol/L Normal 136-145 [facility] Comment on above: Performed By: #### L 100.0100, L501.5200, L500.4050 ####[facility] [address] [place], [address] T PROT 7.7 g/dL Normal 6.4-8.2 [facility] Comment on above: Performed By: #### L 100.0100, L501.5200, L500.4050 ####[facility] [address] [place], [address] Urea nitrogen [Mass/Vol] 38 mg/dL High 7-18 [facility] Comment on above: Performed By: #### L 100.0100, L501.5200, L500.4050 ####[facility] [address] [place], [address] Magnesiumon 11-03-2024 Magnesium [Mass/Vol] 2.1 mg/dL Normal 1.6-2.6 [facility] Comment on above: Performed By: #### L 100.0100, L501.5200, L500.4050 ####[facility] [address] [place], [address] Oncology Visit Reporton 10-20 Oncology Visit Report Normal [facility] CBC,PLATELETSon 10-18-2024 Erythrocyte distribution width (RBC) [Ratio] 18.0 % High 10.9 - 14.3 % [facility] Hematocrit (Bld) [Volume fraction] 24.1 % Low 39.6 - 48.8 % [facility] Hemoglobin (Bld) [Mass/Vol] 7.8 g/dL Low 13.4 - 16.8 g/dL [facility] Interpretation and review of laboratory results Abnormal [facility] MCH (RBC) [Entitic mass] 29.0 pg 26.1 - 33.3 pg [facility] MCHC (RBC) [Mass/Vol] 32.4 g/dL 31.9 - 36.5 g/dL [facility] MCV (RBC) [Entitic vol] 89.6 fL 79.0 - 94.5 fL [facility] Platelet mean volume (Bld) [Entitic vol] 9.0 fL 8.7 - 12.3 fL [facility] Platelets (Bld) [#/Vol] 340 10*3/uL High 146 - 337 K/uL [facility] RBC (Bld) [#/Vol] 2.69 10*6/uL Low [facility] WBC (Bld) [#/Vol] 14.13 10*3/uL High 3.73 - 10.10 K/uL [facility] Hematocrit (Bld) [Volume fraction] 24.1 % Low 39.6-48.8 [facility] Comment on above: Performed By: #### S URGP #### [facility] (DEFAULT) [address] [place] [address] Hemoglobin (Bld) [Mass/Vol] 7.8 g/dL Low 13.4-16.8 [facility] Comment on above: Performed By: #### S URGP #### [facility] (DEFAULT) [address] [place] [address] MCV (RBC) [Entitic vol] 89.6 fL Normal 79.0-94.5 [facility] Comment on above: Performed By: #### S URGP #### [facility] (DEFAULT) [address] [place] [address] Mean Cell Hgb 29.0 pg Normal 26.1-33.3 [facility] Comment on above: Performed By: #### S URGP #### [facility] (DEFAULT) [address] [place] [address] Mean Cell Hgb Conc 32.4 g/dL Normal 31.9-36.5 [facility] Comment on above: Performed By: #### S URGP #### [facility] (DEFAULT) [address] [place] [address] 87969 Platelet mean volume (Bld) [Entitic vol] 9.0 fL Normal 8.7-12.3 [facility] Comment on above: Performed By: #### S URGP #### [facility] (DEFAULT) [address] [place] [address] 41798 Platelets (Bld) [#/Vol] 340 10*3/uL High 146-337 [facility] Comment on above: Performed By: #### S URGP #### [facility] (DEFAULT) [address] [place] [address] 06126 RBC (Bld) [#/Vol] 2.69 10*6/uL Low 4.38-5.83 [facility] Comment on above: Performed By: #### S URGP #### [facility] (DEFAULT) [address] [place] [address] RBC Distribution 18.0 % High 10.9-14.3 [facility] Comment on above: Performed By: #### S URGP #### [facility] (DEFAULT) [address] [place] [address] WBC (Bld) [#/Vol] 14.13 10*3/uL High 3.73-10.10 [facility] Comment on above: Performed By: #### S URGP #### [facility] (DEFAULT) [address] [place] [address] 53062 CHEM 7 (LYTES,BUN,CREA,GLUC) on 10-18-2024 Anion gap [Moles/Vol] 12 mmol/L 7 - 17 mmol/L [facility] Chloride [Moles/Vol] 100 mmol/L 98 - 10 8 mmol/L [facility] CO2 [Moles/Vol] 28 mmol/L 21 - 31 mmol/L [facility] Creatinine [Mass/Vol] 1.62 mg/dL High 0.70 - 1.30 mg/dL [facility] eGFR, CKD-EPI, Male 49 Low - PINF [facility] Comment on above: Reported eGFR is bas ed on the CKD-EPI 2020 equation using creatinine, age, and sex. Glucose [Mass/Vol] 91 mg/dL 70 - 99 mg/dL [facility] Osmolality Calc [Osmolality] 287 [facility] Potassium [Moles/Vol] 3.7 mmol/L 3.5 - 5.0 mmol/L [facility] Sodium [Moles/Vol] 136 mmol/L 135 - 145 mmol/L [facility] Urea nitrogen [Mass/Vol] 21 mg/dL 7 - 25 mg/dL [facility] Urea nitrogen/Creatinine [Mass ratio] 13 mg/mg [facility] Anion gap [Moles/Vol] 12 mmol/L Normal 7-17 [facility] Comment on above: Performed By: #### G EN #### [facility] (DEFAULT) [address] [place] [address] 549[address] Chloride [Moles/Vol] 100 mmol/L Normal 98-108 [facility] Comment on above: Performed By: #### G EN #### [facility] (DEFAULT) [address] [place] [address] 40063 CO2 [Moles/Vol] 28 mmol/L Normal 21-31 [facility] Comment on above: Performed By: #### G EN #### [facility] (DEFAULT) [address] [place] [address] 20193 Creatinine [Mass/Vol] 1.62 mg/dL High 0.70-1.30 [facility] Comment on above: Performed By: #### G EN #### [facility] (DEFAULT) [address] [place] [address] 13521 GFR/1.73 sq M.predicted among non-blacks MDRD (S/P/Bld) [Vol rate/Area] 49 mL/min/{1.73_m2} Low >=60 [facility] Comment on above: Result Comment: Repo rted eGFR is based on the CKD-EPI 2020 equation using creatinine, age, and sex. Performed By: #### G EN #### [facility] (DEFAULT) [address] [place] [address] 15311 Glucose [Mass/Vol] 91 mg/dL Normal 70-99 [facility] Comment on above: Performed By: #### G EN #### [facility] (DEFAULT) [address] [place] [address]649 Osmolality [Osmolality] 287 mosm/kg Normal 278-305 [facility] Comment on above: Performed By: #### G EN #### [facility] (DEFAULT) [address] [place] [address] 09350 Potassium [Moles/Vol] 3.7 mmol/L Normal 3.5-5.0 [facility] Comment on above: Performed By: #### G EN #### [facility] (DEFAULT) [address] [place] [address] 33403 Sodium [Moles/Vol] 136 mmol/L Normal 135-145 [facility] Comment on above: Performed By: #### G EN #### [facility] (DEFAULT) [address] [place] [address] 16617 Urea nitrogen [Mass/Vol] 21 mg/dL Normal 7-25 [facility] Comment on above: Performed By: #### G EN #### [facility] (DEFAULT) [address] [place] [address] 36938 Urea nitrogen/Creatinine [Mass ratio] 13 mg/mg Normal [facility] Comment on above: Performed By: #### G EN #### [facility] (DEFAULT) [address] [place] [address] 86266 ECGOrdered By: Lian sheikh on 10-18-2024 [facility] Work Phone: IONIZED CALCIUM, WHOLE BLOOD on 10-18-2024 Calcium.ionized (Bld) [Moles/Vol] 4.38 mg/dL Low 4.60 - 5.30 mg/dL [facility] Interpretation and review of laboratory results Abnormal [facility] ICA 4.38 mg/dL Low 4.60-5.30 [facility] Comment on above: Performed By: #### G EN #### [facility] (DEFAULT) [address] [place] [address] 18154 MAGNESIUMon 10-18-2024 Magnesium [Mass/Vol] 1.5 mg/dL Low 1.6 - 2 .6 mg/dL [facility] Magnesium [Mass/Vol] 1.5 mg/dL Low 1.6-2.6 [facility] Comment on above: Performed By: #### G EN #### [facility] (DEFAULT) [address] [place] [address] 18305 No Panel Informationon 10-18 Interpretation and review of laboratory results Abnormal [facility] PHOSPHATE, INORGANICon 10-18 Phosphate [Mass/Vol] 2.1 mg/dL Low 2.2 - 4 .6 mg/dL [facility] Phosphorous 2.1 mg/dL Low 2.2-4.6 [facility] Comment on above: Performed By: #### G EN #### [facility] (DEFAULT) [address] [place] [address] 08263 Bacteria identified Cx Nom ( Bld)on 10-17-2024 Bacteria identified Cx Nom (Unsp spec) NO GROWTH DAY 5 OF 5 [facility] Results may be compr omised due to LOW VOLUME of the BACT\ALERT bottle UNDER 8mLs, which can be associated with decreased sensitivity. The optimal blood volume is 8-10mLs per aerobic/anaerobic blood culture bottle. [facility] CARDIAC RHYTHM (SCANNED)on 1 12-18-2023 [facility] CBC,PLATELETSon 10-17-2024 Erythrocyte distribution width (RBC) [Ratio] 14.9 % High 10.9 - 14.3 % [facility] Hematocrit (Bld) [Volume fraction] 20.5 % Low 39.6 - 48.8 % [facility] Hemoglobin (Bld) [Mass/Vol] 6.4 g/dL Critically low 13.4 - 16.8 g/dL [facility] Comment on above: This result has been called to Yesy Barrios RN by [email or web address] on 10/17/2024 02:33:07, and has been read back. Interpretation and review of laboratory results Abnormal [facility] MCH (RBC) [Entitic mass] 29.5 pg 26.1 - 33.3 pg [facility] MCHC (RBC) [Mass/Vol] 31.2 g/dL Low 31.9 - 36.5 g/dL [facility] MCV (RBC) [Entitic vol] 94.5 fL 79.0 - 94.5 fL [facility] Platelet mean volume (Bld) [Entitic vol] 9.1 fL 8.7 - 12.3 fL [facility] Platelets (Bld) [#/Vol] 299 10*3/uL 146 - 337 K/uL [facility] RBC (Bld) [#/Vol] 2.17 10*6/uL Low [facility] WBC (Bld) [#/Vol] 13.38 10*3/uL High 3.73 - 10.10 K/uL [facility] Hematocrit (Bld) [Volume fraction] 20.5 % Low 39.6-48.8 [facility] Comment on above: Performed By: #### ELEN GAMBINO, MGO #### [facility] (DEFAULT) [address] [address] Hemoglobin (Bld) [Mass/Vol] 6.4 g/dL Critically low 13.4-16.8 [facility] Comment on above: Result Comment: This result has been called to Yesy Barrios RN by [email or web address] on 10/17/2024 02:33:07, and has been read back. Performed By: #### ELEN GAMBINO, MGO #### [facility] (DEFAULT) [address] [address] MCV (RBC) [Entitic vol] 94.5 fL Normal 79.0-94.5 [facility] Comment on above: Performed By: #### ELEN GAMBINO, MGO #### [facility] (DEFAULT) [address] [address] Mean Cell Hgb 29.5 pg Normal 26.1-33.3 [facility] Comment on above: Performed By: #### ELEN GAMBINO, MGO #### [facility] (DEFAULT) [address] [place] [address] 40965 Mean Cell Hgb Conc 31.2 g/dL Low 31.9-36.5 [facility] Comment on above: Performed By: #### Claire HM7, IPB, MGO #### [facility] (DEFAULT) [address] [place] [address] 93952 Platelet mean volume (Bld) [Entitic vol] 9.1 fL Normal 8.7-12.3 [facility] Comment on above: Performed By: #### Claire HM7, IPB, MGO #### [facility] (DEFAULT) [address] [place] [address] 98330 Platelets (Bld) [#/Vol] 299 10*3/uL Normal 146-337 [facility] Comment on above: Performed By: #### Claire HMRosemary, IPB, MGO #### [facility] (DEFAULT) [address] [place] [address] 63760 RBC (Bld) [#/Vol] 2.17 10*6/uL Low 4.38-5.83 [facility] Comment on above: Performed By: #### Claire HMRosemary, IPB, MGO #### [facility] (DEFAULT) [address] [place] [address] 56205 RBC Distribution 14.9 % High 10.9-14.3 [facility] Comment on above: Performed By: #### Claire HM7, IPB, MGO #### [facility] (DEFAULT) [address] [place] [address] 63912 WBC (Bld) [#/Vol] 13.38 10*3/uL High 3.73-10.10 [facility] Comment on above: Performed By: #### Claire HM7, IPB, MGO #### [facility] (DEFAULT) [address] [place] [address] 21370 CHEM 7 (LYTES,BUN,CREA,GLUC) on 10-17-2024 Anion gap [Moles/Vol] 10 mmol/L 7 - 17 mmol/L [facility] Chloride [Moles/Vol] 100 mmol/L 98 - 10 8 mmol/L [facility] CO2 [Moles/Vol] 29 mmol/L 21 - 31 mmol/L [facility] Creatinine [Mass/Vol] 1.59 mg/dL High 0.70 - 1.30 mg/dL [facility] eGFR, CKD-EPI, Male 50 Low - PINF [facility] Comment on above: Reported eGFR is bas ed on the CKD-EPI 2020 equation using creatinine, age, and sex. Glucose [Mass/Vol] 98 mg/dL 70 - 99 mg/dL [facility] Interpretation and review of laboratory results Abnormal [facility] Osmolality Calc [Osmolality] 286 [facility] Potassium [Moles/Vol] 3.4 mmol/L Low 3.5 - 5.0 mmol/L [facility] Sodium [Moles/Vol] 136 mmol/L 135 - 145 mmol/L [facility] Urea nitrogen [Mass/Vol] 19 mg/dL 7 - 25 mg/dL [facility] Urea nitrogen/Creatinine [Mass ratio] 12 mg/mg [facility] Anion gap [Moles/Vol] 10 mmol/L Normal 7-17 [facility] Comment on above: Performed By: #### SWATI GAMBINO IPB ####[facility] (DEFAULT)[address] [place] [address] Chloride [Moles/Vol] 100 mmol/L Normal 98-108 [facility] Comment on above: Performed By: #### SWATI GAMBINO IPB ####[facility] (DEFAULT)[address] [place] [address] CO2 [Moles/Vol] 29 mmol/L Normal 21-31 [facility] Comment on above: Performed By: #### SWATI GAMBINO IPB ####[facility] (DEFAULT)[address] [place] [address] Creatinine [Mass/Vol] 1.59 mg/dL High 0.70-1.30 [facility] Comment on above: Performed By: #### SWATI GAMBINO IPB ####[facility] (DEFAULT)[address] [place] [address] GFR/1.73 sq M.predicted among non-blacks MDRD (S/P/Bld) [Vol rate/Area] 50 mL/min/{1.73_m2} Low >=60 [facility] Comment on above: Result Comment: Repo rted eGFR is based on the CKD-EPI 2020 equation using creatinine, age, and sex. Performed By: #### MG IMMANUELO, IPB ####[facility] (DEFAULT)[address] [place] [address] Glucose [Mass/Vol] 98 mg/dL Normal 70-99 [facility] Comment on above: Performed By: #### Claire STAPLES MGO, IPB ####[facility] (DEFAULT)[address] [place] [address] Osmolality [Osmolality] 286 mosm/kg Normal 278-305 [facility] Comment on above: Performed By: #### Claire STAPLES MGO, IPB ####[facility] (DEFAULT)[address] [place] [address] Potassium [Moles/Vol] 3.4 mmol/L Low 3.5-5.0 [facility] Comment on above: Performed By: #### Claire HM7 MGO, IPB ####[facility] (DEFAULT)[address] [place] [address] Sodium [Moles/Vol] 136 mmol/L Normal 135-145 [facility] Comment on above: Performed By: #### Claire HM7 MGO, IPB ####[facility] (DEFAULT)[address] [place] [address] Urea nitrogen [Mass/Vol] 19 mg/dL Normal 7-25 [facility] Comment on above: Performed By: #### Claire HM7, MGO, IPB ####[facility] (DEFAULT)[address] [place] [address] Urea nitrogen/Creatinine [Mass ratio] 12 mg/mg Normal [facility] Comment on above: Performed By: #### SWATI GAMBINO IPB ####[facility] (DEFAULT)[address] [place] [address] 38154 HEMOGLOBIN & HEMATOCRITon Hematocrit (Bld) [Volume fraction] 27.8 % Low 39.6 - 48.8 % [facility] Hemoglobin (Bld) [Mass/Vol] 8.8 g/dL Low 13.4 - 16.8 g/dL [facility] Interpretation and review of laboratory results Abnormal [facility] Hematocrit (Bld) [Volume fraction] 27.8 % Low 39.6-48.8 [facility] Comment on above: Order Comment: Post transfusion Performed By: #### ELEN GAMBINO MGO #### [facility] (DEFAULT) [address] [place] [address] 13384 Hemoglobin (Bld) [Mass/Vol] 8.8 g/dL Low 13.4-16.8 [facility] Comment on above: Order Comment: Post transfusion Performed By: #### ELEN GAMBINO MGO #### [facility] (DEFAULT) [address] [place] [address] 36195 IONIZED CALCIUM, WHOLE BLOOD on 10-17-2024 Calcium.ionized (Bld) [Moles/Vol] 4.50 mg/dL Low 4.60 - 5.30 mg/dL [facility] Interpretation and review of laboratory results Abnormal [facility] ICA 4.50 mg/dL Low 4.60-5.30 [facility] Comment on above: Performed By: #### U [id number] #### [facility] (DEFAULT) [address] [place] [address] 34888 MAGNESIUMon 10-17-2024 Magnesium [Mass/Vol] 1.6 mg/dL 1.6 - 2 .6 mg/dL [facility] Magnesium [Mass/Vol] 1.6 mg/dL Normal 1.6-2.6 [facility] Comment on above: Performed By: #### C SWATI STAPLES IPB ####[facility] (DEFAULT)[address] [place] [address] No Panel Informationon 10-17 Interpretation and review of laboratory results Normal [facility] PHOSPHATE, INORGANICon 10-17 Phosphate [Mass/Vol] 2.4 mg/dL 2.2 - 4 .6 mg/dL [facility] Phosphorous 2.4 mg/dL Normal 2.2-4.6 [facility] Comment on above: Performed By: #### C ELEN STAPLES, SWATI #### [facility] (DEFAULT) [address] [place] [address] PREPARE TO TRANSFUSE RED BLO OD CELLSon 10-17-2024 ABO/RH(D) TYPE Positive [facility] BLOOD COMPONENT TYPE Red Cells, Leukoreduced [facility] EXPIRATION DATE [id number] [facility] Product ABO/RH(D) Negative [facility] Product ABO/RH(D) NUMBER 600 [facility] PRODUCT CODE [id number] [facility] UNIT NUMBER [id number] [facility] UNIT STATUS transfused [facility] TYPE AND SCREENon 10-17-2024 ABO/RH(D) TYPE Positive [facility] Outdate Specimen 10/20/2024 23:59 OS [facility] ABO/RH(D) TYPE Positive Normal [facility] Comment on above: Performed By: #### U [id number] #### [facility] (DEFAULT) [address] [place] [address] Outdate Specimen 10/20/2024 23:59 Normal [facility] Comment on above: Performed By: #### U [id number] #### [facility] (DEFAULT) [address] [address] CBC,PLATELETSon 10-16-2024 Erythrocyte distribution width (RBC) [Ratio] 15.0 % High 10.9 - 14.3 % [facility] Hematocrit (Bld) [Volume fraction] 24.1 % Low 39.6 - 48.8 % [facility] Hemoglobin (Bld) [Mass/Vol] 7.4 g/dL Low 13.4 - 16.8 g/dL [facility] Interpretation and review of laboratory results Abnormal [facility] MCH (RBC) [Entitic mass] 29.1 pg 26.1 - 33.3 pg [facility] MCHC (RBC) [Mass/Vol] 30.7 g/dL Low 31.9 - 36.5 g/dL [facility] MCV (RBC) [Entitic vol] 94.9 fL High 79.0 - 94.5 fL [facility] Platelet mean volume (Bld) [Entitic vol] 8.6 fL Low 8.7 - 12.3 fL [facility] Platelets (Bld) [#/Vol] 297 10*3/uL 146 - 337 K/uL [facility] RBC (Bld) [#/Vol] 2.54 10*6/uL Low [facility] WBC (Bld) [#/Vol] 12.75 10*3/uL High 3.73 - 10.10 K/uL [facility] Hematocrit (Bld) [Volume fraction] 24.1 % Low 39.6-48.8 [facility] Comment on above: Performed By: #### ELEN GAMBINO MGO #### [facility] (DEFAULT) [address] [address] Hemoglobin (Bld) [Mass/Vol] 7.4 g/dL Low 13.4-16.8 [facility] Comment on above: Performed By: #### ELEN GAMBINO, MGO #### [facility] (DEFAULT) [address] [place] [address] MCV (RBC) [Entitic vol] 94.9 fL High 79.0-94.5 [facility] Comment on above: Performed By: #### C HM7, IPB, MGO #### [facility] (DEFAULT) [address] [place] [address] 53764 Mean Cell Hgb 29.1 pg Normal 26.1-33.3 [facility] Comment on above: Performed By: #### C HM7, IPB, MGO #### [facility] (DEFAULT) [address] [place] [address] 56204 Mean Cell Hgb Conc 30.7 g/dL Low 31.9-36.5 [facility] Comment on above: Performed By: #### Claire HM7, IPB, MGO #### [facility] (DEFAULT) [address] [place] [address] 6[address] Platelet mean volume (Bld) [Entitic vol] 8.6 fL Low 8.7-12.3 [facility] Comment on above: Performed By: #### C HM7, IPB, MGO #### [facility] (DEFAULT) [address] [place] [address]46 Platelets (Bld) [#/Vol] 297 10*3/uL Normal 146-337 [facility] Comment on above: Performed By: #### C HM7, IPB, MGO #### [facility] (DEFAULT) [address] [place] [address] RBC (Bld) [#/Vol] 2.54 10*6/uL Low 4.38-5.83 [facility] Comment on above: Performed By: #### Claire HM7, IPB, MGO #### [facility] (DEFAULT) [address] [place] [address] 58850 RBC Distribution 15.0 % High 10.9-14.3 [facility] Comment on above: Performed By: #### Claire HM7, IPB, MGO #### [facility] (DEFAULT) [address] [place] [address] WBC (Bld) [#/Vol] 12.75 10*3/uL High 3.73-10.10 [facility] Comment on above: Performed By: #### C HM7, ELEN, MGO #### [facility] (DEFAULT) [address] [place] [address] CHEM 7 (LYTES,BUN,CREA,GLUC) Ordered By: Shay Sanchez on 10-16-2024 Anion gap [Moles/Vol] 9 mmol/L 7 - 17 mmol/L [facility] Chloride [Moles/Vol] 104 mmol/L 98 - 10 8 mmol/L [facility] CO2 [Moles/Vol] 30 mmol/L 21 - 31 mmol/L [facility] Creatinine [Mass/Vol] 1.87 mg/dL High 0.70 - 1.30 mg/dL [facility] eGFR, CKD-EPI, Male 41 Low - PINF [facility] Comment on above: Reported eGFR is bas ed on the CKD-EPI 2020 equation using creatinine, age, and sex. Glucose [Mass/Vol] 109 mg/dL High 70 - 99 mg/dL [facility] Osmolality Calc [Osmolality] 296 [facility] Potassium [Moles/Vol] 3.1 mmol/L Low 3.5 - 5.0 mmol/L [facility] Sodium [Moles/Vol] 140 mmol/L 135 - 145 mmol/L [facility] Urea nitrogen [Mass/Vol] 25 mg/dL 7 - 25 mg/dL [facility] Urea nitrogen/Creatinine [Mass ratio] 13 mg/mg [facility] CHEM 7 (LYTES,BUN,CREA,GLUC) on 10-16-2024 Anion gap [Moles/Vol] 9 mmol/L Normal 7-17 [facility] Comment on above: Performed By: #### T YPEC #### [facility] (DEFAULT) [address] [place] [address] Chloride [Moles/Vol] 104 mmol/L Normal 98-108 [facility] Comment on above: Performed By: #### T YPEC #### [facility] (DEFAULT) [address] [address] CO2 [Moles/Vol] 30 mmol/L Normal 21-31 [facility] Comment on above: Performed By: #### T YPEC #### [facility] (DEFAULT) [address] [address] Creatinine [Mass/Vol] 1.87 mg/dL High 0.70-1.30 [facility] Comment on above: Performed By: #### T YPEC #### [facility] (DEFAULT) [address] [address] GFR/1.73 sq M.predicted among non-blacks MDRD (S/P/Bld) [Vol rate/Area] 41 mL/min/{1.73_m2} Low >=60 [facility] Comment on above: Result Comment: Repo rted eGFR is based on the CKD-EPI 2020 equation using creatinine, age, and sex. Performed By: #### T YPEC #### [facility] (DEFAULT) [address] [address] Glucose [Mass/Vol] 109 mg/dL High 70-99 [facility] Comment on above: Performed By: #### T YPEC #### [facility] (DEFAULT) [address] [address] Osmolality [Osmolality] 296 mosm/kg Normal 278-305 [facility] Comment on above: Performed By: #### T YPEC #### [facility] (DEFAULT) [address] [address] Potassium [Moles/Vol] 3.1 mmol/L Low 3.5-5.0 [facility] Comment on above: Performed By: #### T YPEC #### [facility] (DEFAULT) [address] [address] Sodium [Moles/Vol] 140 mmol/L Normal 135-145 [facility] Comment on above: Performed By: #### T YPEC #### [facility] (DEFAULT) [address] [place] [address] Urea nitrogen [Mass/Vol] 25 mg/dL Normal 7-25 [facility] Comment on above: Performed By: #### T YPEC #### [facility] (DEFAULT) [address] [place] [address] Urea nitrogen/Creatinine [Mass ratio] 13 mg/mg Normal [facility] Comment on above: Performed By: #### T YPEC #### [facility] (DEFAULT) [address] [place] [address] Culture, Blood (WB)on 2023 CUB Blood cultures x2, f rom two different sites No growth in 5 days. Normal [facility] Comment on above: Performed By: #### M 200.1000 ####[facility] [id number] [place], [address] GLUCOSE POCon 10-16-2024 Glucose [Mass/Vol] 102 mg/dL High 70 - 99 mg/dL [facility] Interpretation and review of laboratory results Abnormal [facility] POC Sample Type CAPBL [facility] Test performed at ad dress of the patient encounter. [facility] IONIZED CALCIUM, WHOLE BLOOD Ordered By: Eber Oro on 10-16-2024 Calcium.ionized (Bld) [Moles/Vol] 4.39 mg/dL Low 4.60 - 5.30 mg/dL [facility] Interpretation and review of laboratory results Abnormal [facility] IONIZED CALCIUM, WHOLE BLOOD on 10-16-2024 ICA 4.39 mg/dL Low 4.60-5.30 [facility] Comment on above: Performed By: #### U [id number] #### [facility] (DEFAULT) [address] [place] [address] MAGNESIUMon 10-16-2024 Interpretation and review of laboratory results Normal [facility] Magnesium [Mass/Vol] 1.8 mg/dL 1.6 - 2 .6 mg/dL [facility] Magnesium [Mass/Vol] 1.8 mg/dL Normal 1.6-2.6 [facility] Comment on above: Performed By: #### T YPEC #### [facility] (DEFAULT) [address] [place] [address] No Panel InformationOrdered By: Shay Sanchez on 10-16-2024 Interpretation and review of laboratory results Abnormal [facility] PHOSPHATE, INORGANICon 10-16 Phosphate [Mass/Vol] 1.7 mg/dL Low 2.2 - 4 .6 mg/dL [facility] Phosphorous 1.7 mg/dL Low 2.2-4.6 [facility] Comment on above: Performed By: #### T YPEC #### [facility] (DEFAULT) [address] [place] [address] POTASSIUMon 10-16-2024 Interpretation and review of laboratory results Normal [facility] Potassium [Moles/Vol] 3.6 mmol/L 3.5 - 5.0 mmol/L [facility] Potassium [Moles/Vol] 3.6 mmol/L Normal 3.5-5.0 [facility] Comment on above: Performed By: #### G EN #### [facility] (DEFAULT) [address] [place] [address] CBC,PLATELETSon 10-15-2024 Erythrocyte distribution width (RBC) [Ratio] 15.6 % High 10.9 - 14.3 % [facility] Hematocrit (Bld) [Volume fraction] 24.8 % Low 39.6 - 48.8 % [facility] Hemoglobin (Bld) [Mass/Vol] 7.6 g/dL Low 13.4 - 16.8 g/dL [facility] Interpretation and review of laboratory results Abnormal [facility] MCH (RBC) [Entitic mass] 29.8 pg 26.1 - 33.3 pg [facility] MCHC (RBC) [Mass/Vol] 30.6 g/dL Low 31.9 - 36.5 g/dL [facility] MCV (RBC) [Entitic vol] 97.3 fL High 79.0 - 94.5 fL [facility] Platelet mean volume (Bld) [Entitic vol] 8.8 fL 8.7 - 12.3 fL [facility] Platelets (Bld) [#/Vol] 341 10*3/uL High 146 - 337 K/uL [facility] RBC (Bld) [#/Vol] 2.55 10*6/uL Low [facility] WBC (Bld) [#/Vol] 11.70 10*3/uL High 3.73 - 10.10 K/uL [facility] Hematocrit (Bld) [Volume fraction] 24.8 % Low 39.6-48.8 [facility] Comment on above: Performed By: #### ELEN GAMBINO MGO #### [facility] (DEFAULT) [address] [address] Hemoglobin (Bld) [Mass/Vol] 7.6 g/dL Low 13.4-16.8 [facility] Comment on above: Performed By: #### ELEN GAMBINO, MGO #### [facility] (DEFAULT) [address] [address] MCV (RBC) [Entitic vol] 97.3 fL High 79.0-94.5 [facility] Comment on above: Performed By: #### ELEN GAMBINO, MGO #### [facility] (DEFAULT) [address] [address] Mean Cell Hgb 29.8 pg Normal 26.1-33.3 [facility] Comment on above: Performed By: #### C HM7, IPB, MGO #### [facility] (DEFAULT) [address] [place] [address] Mean Cell Hgb Conc 30.6 g/dL Low 31.9-36.5 [facility] Comment on above: Performed By: #### C HM7, IPB, MGO #### [facility] (DEFAULT) [address] [place] [address] Platelet mean volume (Bld) [Entitic vol] 8.8 fL Normal 8.7-12.3 [facility] Comment on above: Performed By: #### C HM7, IPB, MGO #### [facility] (DEFAULT) [address] [place] [address] Platelets (Bld) [#/Vol] 341 10*3/uL High 146-337 [facility] Comment on above: Performed By: #### C HM7, IPB, MGO #### [facility] (DEFAULT) [address] [place] [address] RBC (Bld) [#/Vol] 2.55 10*6/uL Low 4.38-5.83 [facility] Comment on above: Performed By: #### C HM7, IPB, MGO #### [facility] (DEFAULT) [address] [place] [address] RBC Distribution 15.6 % High 10.9-14.3 [facility] Comment on above: Performed By: #### C HM7, IPB, MGO #### [facility] (DEFAULT) [address] [place] [address] WBC (Bld) [#/Vol] 11.70 10*3/uL High 3.73-10.10 [facility] Comment on above: Performed By: #### C HM7, IPB, MGO #### [facility] (DEFAULT) [address] [place] [address] CHEM 7 (LYTES,BUN,CREA,GLUC) Ordered By: Susie Rodriguez on 10-15-2024 Anion gap [Moles/Vol] 20 mmol/L High 7 - 17 mmol/L [facility] Chloride [Moles/Vol] 107 mmol/L 98 - 10 8 mmol/L [facility] CO2 [Moles/Vol] 28 mmol/L 21 - 31 mmol/L [facility] Creatinine [Mass/Vol] 2.49 mg/dL High 0.70 - 1.30 mg/dL [facility] eGFR, CKD-EPI, Male 29 Low - PINF [facility] Comment on above: Reported eGFR is bas ed on the CKD-EPI 2020 equation using creatinine, age, and sex. Glucose [Mass/Vol] 78 mg/dL 70 - 99 mg/dL [facility] Interpretation and review of laboratory results Abnormal [facility] Osmolality Calc [Osmolality] 322 High [facility] Potassium [Moles/Vol] 3.8 mmol/L 3.5 - 5.0 mmol/L [facility] Sodium [Moles/Vol] 151 mmol/L High 135 - 145 mmol/L [facility] Urea nitrogen [Mass/Vol] 41 mg/dL High 7 - 25 mg/dL [facility] Urea nitrogen/Creatinine [Mass ratio] 16 mg/mg [facility] CHEM 7 (LYTES,BUN,CREA,GLUC) on 10-15-2024 Anion gap [Moles/Vol] 20 mmol/L High 7-17 [facility] Comment on above: Performed By: #### C JHOAN, ELEN, MGO #### [facility] (DEFAULT) [address] [place] [address] Chloride [Moles/Vol] 107 mmol/L Normal 98-108 [facility] Comment on above: Performed By: #### Claire STAPLES, IPB, MGO #### [facility] (DEFAULT) [address] [place] [address] CO2 [Moles/Vol] 28 mmol/L Normal 21-31 [facility] Comment on above: Performed By: #### CASSIDY GAMBINOB, MGO #### [facility] (DEFAULT) [address] [place] [address] Creatinine [Mass/Vol] 2.49 mg/dL High 0.70-1.30 [facility] Comment on above: Performed By: #### Claire STAPLES, IPB, MGO #### [facility] (DEFAULT) [address] [place] [address] GFR/1.73 sq M.predicted among non-blacks MDRD (S/P/Bld) [Vol rate/Area] 29 mL/min/{1.73_m2} Low >=60 [facility] Comment on above: Result Comment: Repo rted eGFR is based on the CKD-EPI 2020 equation using creatinine, age, and sex. Performed By: #### ELEN GAMBINO, MGO #### [facility] (DEFAULT) [address] [place] [address] Glucose [Mass/Vol] 78 mg/dL Normal 70-99 [facility] Comment on above: Performed By: #### ELEN GAMBINO, MGO #### [facility] (DEFAULT) [address] [place] [address] Osmolality [Osmolality] 322 mosm/kg High 278-305 [facility] Comment on above: Performed By: #### CASSIDY GAMBINOB, MGO #### [facility] (DEFAULT) [address] [place] [address] Potassium [Moles/Vol] 3.8 mmol/L Normal 3.5-5.0 [facility] Comment on above: Performed By: #### Claire STAPLES, CASSIDYB, MGO #### [facility] (DEFAULT) [address] [place] [address] Sodium [Moles/Vol] 151 mmol/L High 135-145 [facility] Comment on above: Performed By: #### Claire HMRosemary, IPB, MGO #### [facility] (DEFAULT) [address] [place] [address] Urea nitrogen [Mass/Vol] 41 mg/dL High 7-25 [facility] Comment on above: Performed By: #### ELEN GAMBINO, MGO #### [facility] (DEFAULT) [address] [place] [address] Urea nitrogen/Creatinine [Mass ratio] 16 mg/mg Normal [facility] Comment on above: Performed By: #### ELEN GAMBINO, MGO #### [facility] (DEFAULT) [address] [place] [address] IONIZED CALCIUM, WHOLE BLOOD on 10-15-2024 Calcium.ionized (Bld) [Moles/Vol] 4.95 mg/dL 4.60 - 5.30 mg/dL [facility] Interpretation and review of laboratory results Normal [facility] ICA 4.95 mg/dL Normal 4.60-5.30 [facility] Comment on above: Performed By: #### S URGP #### [facility] (DEFAULT) [address] [place] [address] MAGNESIUMon 10-15-2024 Magnesium [Mass/Vol] 1.8 mg/dL 1.6 - 2 .6 mg/dL [facility] Magnesium [Mass/Vol] 1.8 mg/dL Normal 1.6-2.6 [facility] Comment on above: Performed By: #### ELEN GAMBINO, MGO #### [facility] (DEFAULT) [address] [place] [address] No Panel Informationon 10-15 Interpretation and review of laboratory results Normal [facility] PHOSPHATE, INORGANICon 10-15 Phosphate [Mass/Vol] 4.0 mg/dL 2.2 - 4 .6 mg/dL [facility] Phosphorous 4.0 mg/dL Normal 2.2-4.6 [facility] Comment on above: Performed By: #### C ELEN STAPLES, MGO #### [facility] (DEFAULT) [address] [place] [address] CBC,PLATELETSon 10-14-2024 Erythrocyte distribution width (RBC) [Ratio] 15.6 % High 10.9 - 14.3 % [facility] Hematocrit (Bld) [Volume fraction] 23.3 % Low 39.6 - 48.8 % [facility] Hemoglobin (Bld) [Mass/Vol] 7.2 g/dL Low 13.4 - 16.8 g/dL [facility] Interpretation and review of laboratory results Abnormal [facility] MCH (RBC) [Entitic mass] 29.8 pg 26.1 - 33.3 pg [facility] MCHC (RBC) [Mass/Vol] 30.9 g/dL Low 31.9 - 36.5 g/dL [facility] MCV (RBC) [Entitic vol] 96.3 fL High 79.0 - 94.5 fL [facility] Platelet mean volume (Bld) [Entitic vol] 8.9 fL 8.7 - 12.3 fL [facility] Platelets (Bld) [#/Vol] 365 10*3/uL High 146 - 337 K/uL [facility] RBC (Bld) [#/Vol] 2.42 10*6/uL Low [facility] WBC (Bld) [#/Vol] 12.83 10*3/uL High 3.73 - 10.10 K/uL [facility] Hematocrit (Bld) [Volume fraction] 23.3 % Low 39.6-48.8 [facility] Comment on above: Performed By: #### S URGP #### [facility] (DEFAULT) [address] [address] Hemoglobin (Bld) [Mass/Vol] 7.2 g/dL Low 13.4-16.8 [facility] Comment on above: Performed By: #### S URGP #### [facility] (DEFAULT) [address] [place] [address] MCV (RBC) [Entitic vol] 96.3 fL High 79.0-94.5 [facility] Comment on above: Performed By: #### S URGP #### [facility] (DEFAULT) [address] [place] [address] Mean Cell Hgb 29.8 pg Normal 26.1-33.3 [facility] Comment on above: Performed By: #### S URGP #### [facility] (DEFAULT) [address] [place] [address] Mean Cell Hgb Conc 30.9 g/dL Low 31.9-36.5 [facility] Comment on above: Performed By: #### S URGP #### [facility] (DEFAULT) [address] [place] [address] Platelet mean volume (Bld) [Entitic vol] 8.9 fL Normal 8.7-12.3 [facility] Comment on above: Performed By: #### S URGP #### [facility] (DEFAULT) [address] [place] [address] Platelets (Bld) [#/Vol] 365 10*3/uL High 146-337 [facility] Comment on above: Performed By: #### S URGP #### [facility] (DEFAULT) [address] [place] [address] RBC (Bld) [#/Vol] 2.42 10*6/uL Low 4.38-5.83 [facility] Comment on above: Performed By: #### S URGP #### [facility] (DEFAULT) [address] [place] [address] RBC Distribution 15.6 % High 10.9-14.3 [facility] Comment on above: Performed By: #### S URGP #### [facility] (DEFAULT) [address] [place] [address] WBC (Bld) [#/Vol] 12.83 10*3/uL High 3.73-10.10 [facility] Comment on above: Performed By: #### S URGP #### [facility] (DEFAULT) [address] [place] [address] CHEM 7 (LYTES,BUN,CREA,GLUC) on 10-14-2024 Anion gap [Moles/Vol] 17 mmol/L 7 - 17 mmol/L [facility] Chloride [Moles/Vol] 104 mmol/L 98 - 10 8 mmol/L [facility] CO2 [Moles/Vol] 28 mmol/L 21 - 31 mmol/L [facility] Creatinine [Mass/Vol] 2.89 mg/dL High 0.70 - 1.30 mg/dL [facility] eGFR, CKD-EPI, Male 24 Low - PINF [facility] Comment on above: Reported eGFR is bas ed on the CKD-EPI 2020 equation using creatinine, age, and sex. Glucose [Mass/Vol] 68 mg/dL Low 70 - 99 mg/dL [facility] Interpretation and review of laboratory results Abnormal [facility] Osmolality Calc [Osmolality] 312 High [facility] Potassium [Moles/Vol] 3.7 mmol/L 3.5 - 5.0 mmol/L [facility] Sodium [Moles/Vol] 145 mmol/L 135 - 145 mmol/L [facility] Urea nitrogen [Mass/Vol] 47 mg/dL High 7 - 25 mg/dL [facility] Urea nitrogen/Creatinine [Mass ratio] 16 mg/mg [facility] Anion gap [Moles/Vol] 17 mmol/L Normal 7-17 [facility] Comment on above: Performed By: #### U [id number] #### [facility] (DEFAULT) [address] [place] [address] Chloride [Moles/Vol] 104 mmol/L Normal 98-108 [facility] Comment on above: Performed By: #### U [id number] #### [facility] (DEFAULT) [address] [place] [address] CO2 [Moles/Vol] 28 mmol/L Normal 21-31 [facility] Comment on above: Performed By: #### U [id number] #### [facility] (DEFAULT) [address] [place] [address] Creatinine [Mass/Vol] 2.89 mg/dL High 0.70-1.30 [facility] Comment on above: Performed By: #### U [id number] #### [facility] (DEFAULT) [address] [place] [address] GFR/1.73 sq M.predicted among non-blacks MDRD (S/P/Bld) [Vol rate/Area] 24 mL/min/{1.73_m2} Low >=60 [facility] Comment on above: Result Comment: Repo rted eGFR is based on the CKD-EPI 2020 equation using creatinine, age, and sex. Performed By: #### U [id number] #### [facility] (DEFAULT) [address] [place] [address] Glucose [Mass/Vol] 68 mg/dL Low 70-99 [facility] Comment on above: Performed By: #### U [id number] #### [facility] (DEFAULT) [address] [place] [address] Osmolality [Osmolality] 312 mosm/kg High 278-305 [facility] Comment on above: Performed By: #### U [id number] #### [facility] (DEFAULT) [address] [place] [address] Potassium [Moles/Vol] 3.7 mmol/L Normal 3.5-5.0 [facility] Comment on above: Performed By: #### U [id number] #### [facility] (DEFAULT) [address] [place] [address] Sodium [Moles/Vol] 145 mmol/L Normal 135-145 [facility] Comment on above: Performed By: #### U [id number] #### [facility] (DEFAULT) [address] [place] [address] Urea nitrogen [Mass/Vol] 47 mg/dL High 7-25 [facility] Comment on above: Performed By: #### U [id number] #### [facility] (DEFAULT) [address] [place] [address] Urea nitrogen/Creatinine [Mass ratio] 16 mg/mg Normal [facility] Comment on above: Performed By: #### U [id number] #### [facility] (DEFAULT) [address] [place] [address] IONIZED CALCIUM, WHOLE BLOOD Ordered By: Almita Roberson on 10-14-2024 Calcium.ionized (Bld) [Moles/Vol] 4.89 mg/dL 4.60 - 5.30 mg/dL [facility] Interpretation and review of laboratory results Normal [facility] IONIZED CALCIUM, WHOLE BLOOD on 10-14-2024 ICA 4.89 mg/dL Normal 4.60-5.30 [facility] Comment on above: Performed By: #### C HM7, IPB, MGO #### [facility] (DEFAULT) [address] [place] [address] MAGNESIUMon 10-14-2024 Magnesium [Mass/Vol] 2.0 mg/dL 1.6 - 2 .6 mg/dL [facility] Magnesium [Mass/Vol] 2.0 mg/dL Normal 1.6-2.6 [facility] Comment on above: Performed By: #### U [id number] #### [facility] (DEFAULT) [address] [place] [address] No Panel Informationon 10-14 Interpretation and review of laboratory results Normal [facility] PHOSPHATE, INORGANICon 10-14 Phosphate [Mass/Vol] 4.5 mg/dL 2.2 - 4 .6 mg/dL [facility] Phosphorous 4.5 mg/dL Normal 2.2-4.6 [facility] Comment on above: Performed By: #### U [id number] #### [facility] (DEFAULT) [address] [place] [address] XR ABDOMEN 1 VIEWon 10-14-20 XR ABDOMEN [...] distal small bowel loops and colon. Normal [facility] XR ABDOMEN 1 VIEW PORTABLEon 10-14-2024 XR [...] small bowel loops filled with contrast. Normal [facility] XR Abdomen Single viewon IMPRESSION: Slightly prominent [...] in distal small bowel loops and colon. [facility] Radiology Study observation (narrative) [facility] IMPRESSION: Enteric contrast in the proximal colon. [...] dilated small bowel loops filled with contrast. [facility] Radiology Study observation (narrative) [facility] XR Abdomen Single viewOrdere d By: Genevieve Escobar on 10-14-2024 [facility] Work Phone: XR Abdomen Single viewOrdere d By: Albert Bear on 10-14-2024 [facility] CBC,PLATELETSon 10-13-2024 Erythrocyte distribution width (RBC) [Ratio] 15.9 % High 10.9 - 14.3 % [facility] Hematocrit (Bld) [Volume fraction] 25.5 % Low 39.6 - 48.8 % [facility] Hemoglobin (Bld) [Mass/Vol] 7.9 g/dL Low 13.4 - 16.8 g/dL [facility] Comment on above: Results inconsistent with previous results. Interpretation and review of laboratory results Abnormal [facility] MCH (RBC) [Entitic mass] 29.6 pg 26.1 - 33.3 [facility] ([facility] [Mass/Vol] 31.0 g/dL Low 31.9 - 36.5 g/dL [facility] MCV (RBC) [Entitic vol] 95.5 fL High 79.0 - 94.5 fL [facility] Platelet mean volume (Bld) [Entitic vol] 8.6 fL Low 8.7 - 12.3 fL [facility] Platelets (Bld) [#/Vol] 437 10*3/uL High 146 - 337 K/uL [facility] RBC (Bld) [#/Vol] 2.67 10*6/uL Low [facility] WBC (Bld) [#/Vol] 17.22 10*3/uL High 3.73 - 10.10 K/uL [facility] Hematocrit (Bld) [Volume fraction] 25.5 % Low 39.6-48.8 [facility] Comment on above: Performed By: #### C JHOAN, ELEN, MGO #### [facility] (DEFAULT) [address] [address] Hemoglobin (Bld) [Mass/Vol] 7.9 g/dL Low 13.4-16.8 [facility] Comment on above: Result Comment: Resu lts inconsistent with previous results. Performed By: #### C HM7, IPB, MGO #### [facility] (DEFAULT) [address] [place] [address] MCV (RBC) [Entitic vol] 95.5 fL High 79.0-94.5 [facility] Comment on above: Performed By: #### Claire HM7, IPB, MGO #### [facility] (DEFAULT) [address] [address] Mean Cell Hgb 29.6 pg Normal 26.1-33.3 [facility] Comment on above: Performed By: #### Claire HM7, IPB, MGO #### [facility] (DEFAULT) [address] [address] Mean Cell Hgb Conc 31.0 g/dL Low 31.9-36.5 [facility] Comment on above: Performed By: #### Claire STAPLES, IPB, MGO #### [facility] (DEFAULT) [address] [place] [address] Platelet mean volume (Bld) [Entitic vol] 8.6 fL Low 8.7-12.3 [facility] Comment on above: Performed By: #### Claire HMRosemary, IPB, MGO #### [facility] (DEFAULT) [address] [place] [address] Platelets (Bld) [#/Vol] 437 10*3/uL High 146-337 [facility] Comment on above: Performed By: #### Claire HM7, IPB, MGO #### [facility] (DEFAULT) [address] [place] [address] RBC (Bld) [#/Vol] 2.67 10*6/uL Low 4.38-5.83 [facility] Comment on above: Performed By: #### Claire STAPLES, IPB, MGO #### [facility] (DEFAULT) [address] [place] [address] RBC Distribution 15.9 % High 10.9-14.3 [facility] Comment on above: Performed By: #### Claire HM7, IPB, MGO #### [facility] (DEFAULT) [address] [place] [address] WBC (Bld) [#/Vol] 17.22 10*3/uL High 3.73-10.10 [facility] Comment on above: Performed By: #### Claire HMRosemary, IPB, MGO #### [facility] (DEFAULT) [address] [place] [address] CHEM 7 (LYTES,BUN,CREA,GLUC) on 10-13-2024 Anion gap [Moles/Vol] 20 mmol/L High 7 - 17 mmol/L [facility] Chloride [Moles/Vol] 103 mmol/L 98 - 10 8 mmol/L [facility] CO2 [Moles/Vol] 26 mmol/L 21 - 31 mmol/L [facility] Creatinine [Mass/Vol] 2.80 mg/dL High 0.70 - 1.30 mg/dL [facility] eGFR, CKD-EPI, Male 25 Low - PINF [facility] Comment on above: Reported eGFR is bas ed on the CKD-EPI 2020 equation using creatinine, age, and sex. Glucose [Mass/Vol] 78 mg/dL 70 - 99 mg/dL [facility] Interpretation and review of laboratory results Abnormal [facility] Osmolality Calc [Osmolality] 313 High [facility] Potassium [Moles/Vol] 3.7 mmol/L 3.5 - 5.0 mmol/L [facility] Sodium [Moles/Vol] 145 mmol/L 135 - 145 mmol/L [facility] Urea nitrogen [Mass/Vol] 48 mg/dL High 7 - 25 mg/dL [facility] Urea nitrogen/Creatinine [Mass ratio] 17 mg/mg [facility] Anion gap [Moles/Vol] 20 mmol/L High 7-17 [facility] Comment on above: Performed By: #### Claire STAPLES, ELEN, MGO #### [facility] (DEFAULT) [address] [place] [address] Chloride [Moles/Vol] 103 mmol/L Normal 98-108 [facility] Comment on above: Performed By: #### Claire STAPLES, IPB, MGO #### [facility] (DEFAULT) [address] [place] [address] CO2 [Moles/Vol] 26 mmol/L Normal 21-31 [facility] Comment on above: Performed By: #### Claire STAPLES, IPB, MGO #### [facility] (DEFAULT) [address] [place] [address] Creatinine [Mass/Vol] 2.80 mg/dL High 0.70-1.30 [facility] Comment on above: Performed By: #### Claire HM7, IPB, MGO #### [facility] (DEFAULT) [address] [place] [address] GFR/1.73 sq M.predicted among non-blacks MDRD (S/P/Bld) [Vol rate/Area] 25 mL/min/{1.73_m2} Low >=60 [facility] Comment on above: Result Comment: Repo rted eGFR is based on the CKD-EPI 2020 equation using creatinine, age, and sex. Performed By: #### Claire HM7, IPB, MGO #### [facility] (DEFAULT) [address] [place] [address] Glucose [Mass/Vol] 78 mg/dL Normal 70-99 [facility] Comment on above: Performed By: #### Claire HMRosemary, IPB, MGO #### [facility] (DEFAULT) [address] [place] [address] Osmolality [Osmolality] 313 mosm/kg High 278-305 [facility] Comment on above: Performed By: #### Claire STAPLES, IPB, MGO #### [facility] (DEFAULT) [address] [place] [address] Potassium [Moles/Vol] 3.7 mmol/L Normal 3.5-5.0 [facility] Comment on above: Performed By: #### Claire HM7, IPB, MGO #### [facility] (DEFAULT) [address] [place] [address] Sodium [Moles/Vol] 145 mmol/L Normal 135-145 [facility] Comment on above: Performed By: #### Claire HM7, IPB, MGO #### [facility] (DEFAULT) [address] [place] [address] Urea nitrogen [Mass/Vol] 48 mg/dL High 7-25 [facility] [facility] Comment on above: Performed By: #### Claire HM7, IPB, MGO #### [facility] (DEFAULT) [address] [place] [address] Urea nitrogen/Creatinine [Mass ratio] 17 mg/mg Normal [facility] Comment on above: Performed By: #### C HM7, IPB, MGO #### [facility] (DEFAULT) [address] [place] [address]457 Anion gap [Moles/Vol] 15 mmol/L Normal 7-17 [facility] Comment on above: Performed By: #### C HM7, IPB, MGO #### [facility] (DEFAULT) [address] [place] [address] Chloride [Moles/Vol] 105 mmol/L Normal 98-108 [facility] Comment on above: Performed By: #### C HM7, IPB, MGO #### [facility] (DEFAULT) [address] [place] [address] CO2 [Moles/Vol] 26 mmol/L Normal 21-31 [facility] Comment on above: Performed By: #### C HM7, IPB, MGO #### [facility] (DEFAULT) [address] [place] [address]683 Creatinine [Mass/Vol] 3.01 mg/dL High 0.70-1.30 [facility] Comment on above: Performed By: #### C HM7, IPB, MGO #### [facility] (DEFAULT) [address] [place] [address] GFR/1.73 sq M.predicted among non-blacks MDRD (S/P/Bld) [Vol rate/Area] 23 mL/min/{1.73_m2} Low >=60 [facility] Comment on above: Result Comment: Repo rted eGFR is based on the CKD-EPI 2020 equation using creatinine, age, and sex. Performed By: #### C HM7, IPB, MGO #### [facility] (DEFAULT) [address] [place] [address]304 Glucose [Mass/Vol] 89 mg/dL Normal 70-99 [facility] Comment on above: Performed By: #### Claire HM7, IPB, MGO #### [facility] (DEFAULT) [address] [place] [address]194 Osmolality [Osmolality] 310 mosm/kg High 278-305 [facility] Comment on above: Performed By: #### Claire HM7, IPB, MGO #### [facility] (DEFAULT) [address] [place] [address]251 Potassium [Moles/Vol] 4.0 mmol/L Normal 3.5-5.0 [facility] Comment on above: Performed By: #### Claire HM7, IPB, MGO #### [facility] (DEFAULT) [address] [place] [address] Sodium [Moles/Vol] 142 mmol/L Normal 135-145 [facility] Comment on above: Performed By: #### Claire HM7, IPB, MGO #### [facility] (DEFAULT) [address] [place] [address]751 Urea nitrogen [Mass/Vol] 53 mg/dL High 7-25 [facility] Comment on above: Performed By: #### Claire HM7, IPB, MGO #### [facility] (DEFAULT) [address] [place] [address] 03458 Urea nitrogen/Creatinine [Mass ratio] 18 mg/mg Normal [facility] Comment on above: Performed By: #### Claire HM7, IPB, MGO #### [facility] (DEFAULT) [address] [place] [address] 77596 CHEM 7 (LYTES,BUN,CREA,GLUC) Ordered By: Donnell Barraza on 10-13-2024 Anion gap [Moles/Vol] 15 mmol/L 7 - 17 mmol/L [facility] Chloride [Moles/Vol] 105 mmol/L 98 - 10 8 mmol/L [facility] CO2 [Moles/Vol] 26 mmol/L 21 - 31 mmol/L [facility] Creatinine [Mass/Vol] 3.01 mg/dL High 0.70 - 1.30 mg/dL [facility] eGFR, CKD-EPI, Male 23 Low - PINF [facility] Comment on above: Reported eGFR is bas ed on the CKD-EPI 2020 equation using creatinine, age, and sex. Glucose [Mass/Vol] 89 mg/dL 70 - 99 mg/dL [facility] Interpretation and review of laboratory results Abnormal [facility] Osmolality Calc [Osmolality] 310 High [facility] Potassium [Moles/Vol] 4.0 mmol/L 3.5 - 5.0 mmol/L [facility] Sodium [Moles/Vol] 142 mmol/L 135 - 145 mmol/L [facility] Urea nitrogen [Mass/Vol] 53 mg/dL High 7 - 25 mg/dL [facility] Urea nitrogen/Creatinine [Mass ratio] 18 mg/mg [facility] GENERAL PROCEDUREOrdered By: Jennifer Lebron on 10-13-2024 Radiology Study observation (narrative) [facility] Work Phone: IONIZED CALCIUM, WHOLE BLOOD Ordered By: Negro Matamoros on 10-13-2024 Calcium.ionized (Bld) [Moles/Vol] 4.68 mg/dL 4.60 - 5.30 mg/dL [facility] Interpretation and review of laboratory results Normal [facility] IONIZED CALCIUM, WHOLE BLOOD on 10-13-2024 ICA 4.68 mg/dL Normal 4.60-5.30 [facility] Comment on above: Performed By: #### C HM7, IPB, MGO #### [facility] (DEFAULT) [address] [address] MAGNESIUMon 10-13-2024 Magnesium [Mass/Vol] 2.0 mg/dL 1.6 - 2 .6 mg/dL [facility] Magnesium [Mass/Vol] 2.0 mg/dL Normal 1.6-2.6 [facility] Comment on above: Performed By: #### ELEN GAMBINO, MGO #### [facility] (DEFAULT) [address] [place] [address] Magnesium [Mass/Vol] 2.1 mg/dL 1.6 - 2 .6 mg/dL [facility] Magnesium [Mass/Vol] 2.1 mg/dL Normal 1.6-2.6 [facility] Comment on above: Performed By: #### ELEN GAMBINO, MGO #### [facility] (DEFAULT) [address] [place] [address] No Panel Informationon 10-13 Interpretation and review of laboratory results Normal [facility] Interpretation and review of laboratory results Normal [facility] PHOSPHATE, INORGANICon 10-13 Phosphate [Mass/Vol] 4.3 mg/dL 2.2 - 4 .6 mg/dL [facility] Phosphorous 4.3 mg/dL Normal 2.2-4.6 [facility] Comment on above: Performed By: #### ELEN GAMBINO, MGO #### [facility] (DEFAULT) [address] [place] [address]365 Phosphate [Mass/Vol] 4.5 mg/dL 2.2 - 4 .6 mg/dL [facility] Phosphorous 4.5 mg/dL Normal 2.2-4.6 [facility] Comment on above: Performed By: #### Claire STAPLES, CASSIDYB, MGO #### [facility] (DEFAULT) [address] [place] [address] PLACEMENT NEPHROSTOMY CATHET ER PERCUTANEOUS W/ IMAGE [...] medication(s), I spent 44 minutes of continuous rjxi-ct-ofey time with the patient. COMPARISON: CT abdomen/pelvis [...] into the renal pelvis. After dilation, a 10.2-[place] multipurpose nephrostomy drainage catheter was inserted into [...] into the renal pelvis. After dilation, a 10.2-[place] multipurpose nephrostomy drainage catheter was inserted into [...] that time. (more content not included)... Normal [facility] IMPRESSION: 1. Bilateral nephrostomy tube placement. Drain [...] medication(s), I spent 44 minutes of continuous agec-xb-mwac time with the patient. COMPARISON: CT abdomen/pelvis [...] into the renal pelvis. After dilation, a 10.2-[place] multipurpose nephrostomy drainage catheter was inserted into [...] into the renal pelvis. After dilation, a 10.2-[place] multipurpose nephrostomy drainage catheter was inserted into [...] observed suggestive of distal ureteral obstruction. RADIOLOGY Jnenifer Lebron DO - 10/13/2024 EXAM: IR PLACEMENT [...] medication(s), I spent 44 minutes of continuous mkxm-kk-fpgg time with the patient. COMPARISON: CT abdomen/pelvis [...] into the renal pelvis. After dilation, a 10.2-[place] multipurpose nephrostomy drainage catheter was inserted into [...] into the renal pelvis. After dilation, a 10.2-[place] multipurpose nephrostomy drainage catheter was inserted into [...] obstruction. IMPRESSION IMPRESS (more content not included)... [facility] URINE CULTUREOrdered By: Gely Estrada on 10-13-2024 Bacteria identified Cx Nom (Unsp spec) Growth [facility] Bacteria identified Cx Nom (Unsp spec) GRAM-NEGATIVE BACILLUS Abnormal [facility] Comment on above: Susceptibilities not routinely performed. Interpretation and review of laboratory results Abnormal [facility] Urine Cultureon 10-13-2024 URC Normal [facility] Comment on above: Performed By: #### M 100.2200 ####[facility] [id number] [place], [place], [id number] ABORH TYPE RECONFIRMATIONon 10-12-2024 ABO/RH(D) TYPE Positive [facility] ABO/RH(D) TYPE Positive Normal [facility] Comment on above: Performed By: #### T YPEC #### [facility] (DEFAULT) [address] [place] [address] BLOOD CULTUREon 10-12-2024 Bacteria identified Cx Nom (Unsp spec) NO GROWTH DAY 5 OF 5 Normal [facility] Comment on above: Order Comment: 2 Bot tles (1 Set - consists of 1 Aerobic bottle and 1 Anaerobic bottle) -1st Peripheral DrawFor vacutainer method draw: Fill aerobic bottle first, then anaerobic Performed By: #### S URGP #### [facility] (DEFAULT) [address] [place], [place] [id number] Order Comment: 2 Bot tles (1 Set [...] 9.5 mg/dL 8.6 - 10. 5 mg/dL [facility] Calcium [Mass/Vol] 9.5 mg/dL Normal 8.6-10.5 [facility] Comment on above: Performed By: #### T YPEC #### [facility] (DEFAULT) [address] [place] [address] CBC AND ELECTRONIC DIFFon Basophils (Bld) [#/Vol] 0.06 10*3/uL 0.00 - 0.09 K/uL [facility] Basophils/100 WBC (Bld) 0.3 % [facility] Differential cell count method Nom (Bld) Electronic Differential O [facility] Eosinophils (Bld) [#/Vol] K/uL 0.00 - 0.48 K/uL [facility] Eosinophils/100 WBC (Bld) 0.1 % [facility] Erythrocyte distribution width (RBC) [Ratio] 15.8 % High 10.9 - 14.3 % [facility] Comment on above: This is an appended report. These results have been appended to a previously preliminary verified report. Hematocrit (Bld) [Volume fraction] 31.5 % Low 39.6 - 48.8 % [facility] Comment on above: This is an appended report. These results have been appended to a previously preliminary verified report. Hemoglobin (Bld) [Mass/Vol] 10.1 g/dL Low 13.4 - 16.8 g/dL [facility] Comment on above: This is an appended report. These results have been appended to a previously preliminary verified report. Immature granulocytes (Bld) [#/Vol] 0.33 10*3/uL High NINF - 0.07 K/uL [facility] Immature granulocytes/100 WBC (Bld) 1.6 % [facility] Interpretation and review of laboratory results Abnormal [facility] Lymphocytes (Bld) [#/Vol] 0.36 10*3/uL Low 0.83 - 3.57 K/uL [facility] Lymphocytes/100 WBC (Bld) 1.7 % [facility] MCH (RBC) [Entitic mass] 29.9 pg 26.1 - 33.3 pg [facility] Comment on above: This is an appended report. These results have been appended to a previously preliminary verified report. MCHC (RBC) [Mass/Vol] 32.1 g/dL 31.9 - 36.5 g/dL [facility] Comment on above: This is an appended report. These results have been appended to a previously preliminary verified report. MCV (RBC) [Entitic vol] 93.2 fL 79.0 - 94.5 fL [facility] Comment on above: This is an appended report. These results have been appended to a previously preliminary verified report. Monocytes (Bld) [#/Vol] 0.91 10*3/uL 0.24 - 0.93 K/uL [facility] Monocytes/100 WBC (Bld) 4.4 % [facility] Neutrophils (Bld) [#/Vol] 19.21 10*3/uL High 1.57 - 6.19 K/uL [facility] Nucleated RBC/100 WBC (Bld) [Ratio] 0.0 % [facility] Platelet mean volume (Bld) [Entitic vol] [facility] Comment on above: Not measured Platelets (Bld) [#/Vol] 557 10*3/uL High 146 - 337 K/uL [facility] Comment on above: This is an appended report. These results have been appended to a previously preliminary verified report. RBC (Bld) [#/Vol] 3.38 10*6/uL Low [facility] Comment on above: This is an appended report. These results have been appended to a previously preliminary verified report. Segmented neutrophils/100 WBC (Bld) 91.9 % [facility] WBC (Bld) [#/Vol] 20.89 10*3/uL High 3.73 - 10.10 K/uL [facility] Comment on above: This is an appended report. These results have been appended to a previously preliminary verified report. [facility] Abs Eos Auto < Normal 0.00-0.48 [facility] Comment on above: Performed By: #### U [id number] #### [facility] (DEFAULT) [address] [address] Basophils (Bld) [#/Vol] 0.06 10*3/uL Normal 0.00-0.09 [facility] Comment on above: Performed By: #### U [id number] #### [facility] (DEFAULT) [address] [address] Basophils/100 WBC (Bld) 0.3 % Normal [facility] Comment on above: Performed By: #### U [id number] #### [facility] (DEFAULT) [address] [address] DIFF STATUS Electronic Differential Normal [facility] Comment on above: Performed By: #### U [id number] #### [facility] (DEFAULT) [address] [address] Eosinophils/100 WBC (Bld) 0.1 % Normal [facility] Comment on above: Performed By: #### U [id number] #### [facility] (DEFAULT) [address] [address] Hematocrit (Bld) [Volume fraction] 31.5 % Low 39.6-48.8 [facility] Comment on above: Result Comment: This is an appended report. These results have been appended to a previously preliminary verified report. Performed By: #### U [id number] #### [facility] (DEFAULT) [address] [address] Hemoglobin (Bld) [Mass/Vol] 10.1 g/dL Low 13.4-16.8 [facility] Comment on above: Result Comment: This is an appended report. These results have been appended to a previously preliminary verified report. Performed By: #### U [id number] #### [facility] (DEFAULT) [address] [address] Immature Grans % 1.6 % Normal [facility] Comment on above: Performed By: #### U [id number] #### [facility] (DEFAULT) [address] [address] Immature Grans Absolute 0.33 K/uL High <=0.07 [facility] Comment on above: Performed By: #### U [id number] #### [facility] (DEFAULT) [address] [address] Lymphocytes (Bld) [#/Vol] 0.36 10*3/uL Low 0.83-3.57 [facility] Comment on above: Performed By: #### U [id number] #### [facility] (DEFAULT) [address] [address] Lymphocytes/100 WBC (Bld) 1.7 % Normal [facility] Comment on above: Performed By: #### U [id number] #### [facility] (DEFAULT) [address] [address] MCV (RBC) [Entitic vol] 93.2 fL Normal 79.0-94.5 [facility] Comment on above: Result Comment: This is an appended report. These results have been appended to a previously preliminary verified report. Performed By: #### U [id number] #### [facility] (DEFAULT) [address] [address] Mean Cell Hgb 29.9 pg Normal 26.1-33.3 [facility] Comment on above: Result Comment: This is an appended report. These results have been appended to a previously preliminary verified report. Performed By: #### U [id number] #### [facility] (DEFAULT) [address] [address] Mean Cell Hgb Conc 32.1 g/dL Normal 31.9-36.5 [facility] Comment on above: Result Comment: This is an appended report. These results have been appended to a previously preliminary verified report. Performed By: #### U [id number] #### [facility] (DEFAULT) [address] [address] Mean Platelet Volume Normal [facility] Comment on above: Result Comment: Not measured Performed By: #### U [id number] #### [facility] (DEFAULT) [address] [address] Monocytes (Bld) [#/Vol] 0.91 10*3/uL Normal 0.24-0.93 [facility] Comment on above: Performed By: #### U [id number] #### [facility] (DEFAULT) [address] [address] Monocytes/100 WBC (Bld) 4.4 % Normal [facility] Comment on above: Performed By: #### U [id number] #### [facility] (DEFAULT) [address] [address] Nucleated RBC 0.0 /100 WBC Normal <=0.2 [facility] Comment on above: Performed By: #### U [id number] #### [facility] (DEFAULT) [address] [address] Platelets (Bld) [#/Vol] 557 10*3/uL High 146-337 [facility] Comment on above: Result Comment: This is an appended report. These results have been appended to a previously preliminary verified report. Performed By: #### U [id number] #### [facility] (DEFAULT) [address] [address] RBC (Bld) [#/Vol] 3.38 10*6/uL Low 4.38-5.83 [facility] Comment on above: Result Comment: This is an appended report. These results have been appended to a previously preliminary verified report. Performed By: #### U [id number] #### [facility] (DEFAULT) [address] [address] RBC Distribution 15.8 % High 10.9-14.3 [facility] Comment on above: Result Comment: This is an appended report. These results have been appended to a previously preliminary verified report. Performed By: #### U [id number] #### [facility] (DEFAULT) [address] [address] Segs + Bands Auto 91.9 % Normal [facility] Comment on above: Performed By: #### U [id number] #### [facility] (DEFAULT) [address] [address] Segs + Bands,Absolute Auto 19.21 K/uL High 1.57-6.19 [facility] Comment on above: Performed By: #### U [id number] #### [facility] (DEFAULT) [address] [address] WBC (Bld) [#/Vol] 20.89 10*3/uL High 3.73-10.10 [facility] Comment on above: Result Comment: This is an appended report. These results have been appended to a previously preliminary verified report. Performed By: #### U [id number] #### [facility] (DEFAULT) [address] [address] CHEM 7 (LYTES,BUN,CREA,GLUC) on 10-12-2024 Anion gap [Moles/Vol] 21 mmol/L High 7 - 17 mmol/L [facility] Chloride [Moles/Vol] 99 mmol/L 98 - 10 8 mmol/L [facility] CO2 [Moles/Vol] 25 mmol/L 21 - 31 mmol/L [facility] Creatinine [Mass/Vol] 3.01 mg/dL High 0.70 - 1.30 mg/dL [facility] eGFR, CKD-EPI, Male 23 Low - PINF [facility] Comment on above: Reported eGFR is bas ed on the CKD-EPI 2020 equation using creatinine, age, and sex. Glucose [Mass/Vol] 112 mg/dL High 70 - 99 mg/dL [facility] Osmolality Calc [Osmolality] 312 High [facility] Potassium [Moles/Vol] 5.6 mmol/L High 3.5 - 5.0 mmol/L [facility] Comment on above: Specimen slightly he molyzed. Potassium results may be falsey elevated by more than 0.5 mmol/L. Consider recollection. Sodium [Moles/Vol] 139 mmol/L 135 - 145 mmol/L [facility] Urea nitrogen [Mass/Vol] 60 mg/dL High 7 - 25 mg/dL [facility] Urea nitrogen/Creatinine [Mass ratio] 20 mg/mg [facility] Anion gap [Moles/Vol] 21 mmol/L High 7-17 [facility] Comment on above: Performed By: #### S URGP #### [facility] (DEFAULT) [address] [place] [address] Chloride [Moles/Vol] 99 mmol/L Normal 98-108 [facility] Comment on above: Performed By: #### S URGP #### [facility] (DEFAULT) [address] [place] [address] CO2 [Moles/Vol] 25 mmol/L Normal 21-31 [facility] Comment on above: Performed By: #### S URGP #### [facility] (DEFAULT) [address] [place] [address] Creatinine [Mass/Vol] 3.01 mg/dL High 0.70-1.30 [facility] Comment on above: Performed By: #### S URGP #### [facility] (DEFAULT) [address] [address] GFR/1.73 sq M.predicted among non-blacks MDRD (S/P/Bld) [Vol rate/Area] 23 mL/min/{1.73_m2} Low >=60 [facility] Comment on above: Result Comment: Repo rted eGFR is based on the CKD-EPI 2020 equation using creatinine, age, and sex. Performed By: #### S URGP #### [facility] (DEFAULT) [address] [address] Glucose [Mass/Vol] 112 mg/dL High 70-99 [facility] Comment on above: Performed By: #### S URGP #### [facility] (DEFAULT) [address] [address] Osmolality [Osmolality] 312 mosm/kg High 278-305 [facility] Comment on above: Performed By: #### S URGP #### [facility] (DEFAULT) [address] [place] [address] Potassium [Moles/Vol] 5.6 mmol/L High 3.5-5.0 [facility] Comment on above: Result Comment: Spec imen slightly hemolyzed. Potassium results may be falsey elevated by more than 0.5 mmol/L. Consider recollection. Performed By: #### S URGP #### [facility] (DEFAULT) [address] [place] [address] Sodium [Moles/Vol] 139 mmol/L Normal 135-145 [facility] Comment on above: Performed By: #### S URGP #### [facility] (DEFAULT) [address] [place] [address] Urea nitrogen [Mass/Vol] 60 mg/dL High 7-25 [facility] Comment on above: Performed By: #### S URGP #### [facility] (DEFAULT) [address] [place] [address] Urea nitrogen/Creatinine [Mass ratio] 20 mg/mg Normal [facility] Comment on above: Performed By: #### S URGP #### [facility] (DEFAULT) [address] [place] [address] CREATININE SERUMon Creatinine [Mass/Vol] 3.06 mg/dL High 0.70 - 1.30 mg/dL [facility] eGFR, CKD-EPI, Male 23 Low - PINF [facility] Comment on above: Reported eGFR is bas ed on the CKD-EPI 2021 equation using creatinine, age, and sex. Interpretation and review of laboratory results Abnormal [facility] Creatinine [Mass/Vol] 3.06 mg/dL High 0.70-1.30 [facility] Comment on above: Performed By: #### C REAB ####[facility] (DEFAULT)[address] [place] [address] GFR/1.73 sq M.predicted among non-blacks MDRD (S/P/Bld) [Vol rate/Area] 23 mL/min/{1.73_m2} Low >=60 [facility] Comment on above: Result Comment: Repo rted eGFR is based on the CKD-EPI 202 equation using creatinine, age, and sex. Performed By: #### C REAB ####[facility] (DEFAULT)[address] [place] [address] CREATININE,RANDOM URINEon Creatinine (24H U) [Mass/Vol] 55.45 mg/dL [facility] Creatinine (U) [Mass/Vol] 55.45 mg/dL Normal [facility] Comment on above: Order Comment: The r eference range has not been established for random urine specimens. The test result should be integrated into the clinical context for interpretation. Performed By: #### S URGP #### [facility] (DEFAULT) [address] [place] [address] EXTRA MICROon 10-12-2024 [facility] GENERAL PROCEDUREon 10-12-20 Miguel A Holloway MD [...] care. Miguel A Holloway MD Integrated Interventional Recycle Driver PGY-6 [facility] GENERAL PROCEDUREOrdered By: Jennifer Lebron on 10-12-2024 [facility] Work Phone: LACTATE, BLOODOrdered By: Teagan Jean on 10-12-2024 Interpretation and review of laboratory results Normal [facility] Lactate [Moles/Vol] 1.3 mmol/L 0.5 - 1. 6 mmol/L [facility] LACTATE, BLOODon 12-24-2024 Lactate, Blood 1.3 mmol/L Normal 0.5-1.6 [facility] Comment on above: Performed By: #### S URGP #### [facility] (DEFAULT) [address] [place] [address] LYTES (NA, K, CL) - URINE - RANDOMon 10-12-2024 Chloride (24H U) [Moles/Vol] 51 mmol/L [facility] Potassium (24H U) [Moles/Vol] 39.9 mmol/L [facility] Sodium (24H U) [Moles/Vol] 61 mmol/L [facility] Sodium (U) [Moles/Vol] 61 mmol/L Normal [facility] Comment on above: Order Comment: The r eference range has not been established for random urine specimens. The test result should be integrated into the clinical context for interpretation. Performed By: #### S URGP #### [facility] (DEFAULT) [address] [place] [address] Urine Chloride 51 mmol/L Normal [facility] Comment on above: Order Comment: The r eference range has not been established for random urine specimens. The test result should be integrated into the clinical context for interpretation. Performed By: #### S URGP #### [facility] (DEFAULT) [address] [place] [address] Urine Potassium 39.9 mmol/L Normal [facility] Comment on above: Order Comment: The r eference range has not been established for random urine specimens. The test result should be integrated into the clinical context for interpretation. Performed By: #### S URGP #### [facility] (DEFAULT) [address] [place] [address] MAGNESIUMon 10-12-2024 Magnesium [Mass/Vol] 2.3 mg/dL 1.6 - 2 .6 mg/dL [facility] Magnesium [Mass/Vol] 2.3 mg/dL Normal 1.6-2.6 [facility] Comment on above: Performed By: #### T YPEC #### [facility] (DEFAULT) [address] [place] [address] No Panel Informationon 10-12 The reference range has not been established for random urine specimens. The test result should be integrated into the clinical context for interpretation. [facility] Interpretation and review of laboratory results Abnormal [facility] Interpretation and review of laboratory results Normal [facility] PHOSPHATE, INORGANICon 10-12 Phosphate [Mass/Vol] 6.1 mg/dL High 2.2 - 4 .6 mg/dL [facility] Phosphorous 6.1 mg/dL High 2.2-4.6 [facility] Comment on above: Performed By: #### S URGP #### [facility] (DEFAULT) [address] [place] [address] PLACEMENT NEPHROSTOMY CATHET ER PERCUTANEOUS W/ IMAGE GUIDANCEon 10-12-2024 Radiology Study observation (narrative) [facility] PREALBUMINon 10-12-2024 Prealbumin [Mass/Vol] 12 mg/dL Low 17 - 3 4 mg/dL [facility] Prealbumin [Mass/Vol] 12 mg/dL Low 17-34 [facility] Comment on above: Performed By: #### S URGP #### [facility] (DEFAULT) [address] [place] [address] PT,INR,PTTon 10-12-2024 aPTT Coag (PPP) [Time] 28.2 s [facility] INR Coag (Bld) [Relative time] 1.2 {INR} High 0.9 - 1.1 [facility] Interpretation and review of laboratory results Abnormal [facility] PT Coag (PPP) [Time] 15.4 s High [facility] aPTT Coag (Bld) [Time] 28.2 s Normal 24.0-34.3 [facility] Comment on above: Performed By: #### C HM7, IPB, MGO #### [facility] (DEFAULT) [address] [place] [address] INR Coag (PPP) [Relative time] 1.2 {INR} High 0.9-1.1 [facility] Comment on above: Performed By: #### C HM7, IPB, MGO #### [facility] (DEFAULT) [address] [place] [address] PT Coag (PPP) [Time] 15.4 s High 11.9-14.2 [facility] Comment on above: Performed By: #### C HM7, IPB, MGO #### [facility] (DEFAULT) [address] [place] [address] Portable XR Chest Viewson IMPRESSION: Properly positioned [...] Properly positioned left chest port. No pneumothorax. [facility] Radiology Study observation (narrative) [facility] Portable XR Chest ViewsOrder ed By: Marie Espinoza on 10-12-2024 [facility] Work Phone: TYPE AND SCREENon 12-24-2024 ABO/RH(D) TYPE Positive [facility] Outdate Specimen 10/15/2024 23:59 [facility] ABO/RH(D) TYPE Positive Normal [facility] Comment on above: Performed By: #### X M #### [facility] (DEFAULT) [address] [place] [address] Outdate Specimen 10/15/2024 23:59 Normal [facility] Comment on above: Performed By: #### X M #### [facility] (DEFAULT) [address] [place] [address] URINALYSIS REFLEX TO CULTURE PERFORMABLEOrdered By: Eladio Allen on 10-12-2024 Appearance (U) Turbid Abnormal Clear [facility] Bacteria LM Ql (Urine sed) PRESENT Abnormal ABSENT [facility] Color (U) Yellow Yellow [facility] Epithelial cells.squamous LM Ql (Urine sed) 0-2/hpf 0-2/hpf, 3-5/hpf = 1+ [facility] Glucose Test strip (U) [Mass/Vol] Negative Negative [facility] Interpretation and review of laboratory results Abnormal [facility] Ketones (U) [Mass/Vol] Negative Negative [facility] Leukocyte esterase Test strip Ql (U) Large Abnormal Negative [facility] Nitrite Ql (U) Negative Negative [facility] pH (U) 5.5 [pH] 5.0 - 7.0 [facility] Protein (U) [Mass/Vol] 30 mg/dL Abnormal Negative [facility] RBC (U) [#/Vol] Moderate Abnormal Negative [facility] RBC LM.HPF (Urine sed) [#/Area] 6-10 Abnormal [facility] Specific gravity (U) [Rel density] 1.013 1.001 - 1.035 [facility] Urobilinogen (U) [Mass/Vol] 0.2 E.U./dL 0.2 E.U/dL, 1.0 E.U/dL [facility] WBC LM.HPF (Urine sed) [#/Area] /[HPF] Abnormal [facility] URINALYSIS REFLEX TO CULTURE PERFORMABLEon 10-12-2024 Appearance (U) Turbid Abnormal Clear [facility] Comment on above: Order Comment: For i ndwelling catheters, specimen collection is acceptable on catheter day 1 and 2 only. ? Performed By: #### U [id number] #### [facility] (DEFAULT) [address] [place] [address] Bacteria PRESENT Abnormal ABSENT [facility] Comment on above: Order Comment: For i ndwelling catheters, specimen collection is acceptable on catheter day 1 and 2 only. ? Performed By: #### U [id number] #### [facility] (DEFAULT) [address] [address] Blood Urine Moderate Abnormal Negative [facility] Comment on above: Order Comment: For i ndwelling catheters, specimen collection is acceptable on catheter day 1 and 2 only. ? Performed By: #### U [id number] #### [facility] (DEFAULT) [address] [place] [address] Color (U) Yellow Normal Yellow [facility] Comment on above: Order Comment: For i ndwelling catheters, specimen collection is acceptable on catheter day 1 and 2 only. ? Performed By: #### U [id number] #### [facility] (DEFAULT) [address] [place] [address] Glucose Ql (U) Negative Normal Negative [facility] Comment on above: Order Comment: For i ndwelling catheters, specimen collection is acceptable on catheter day 1 and 2 only. ? Performed By: #### U [id number] #### [facility] (DEFAULT) [address] [address] Ketones Ql (U) Negative Normal Negative [facility] Comment on above: Order Comment: For i ndwelling catheters, specimen collection is acceptable on catheter day 1 and 2 only. ? Performed By: #### U [id number] #### [facility] (DEFAULT) [address] [place] [address] Leukocyte esterase Test strip Ql (U) Large Abnormal Negative [facility] Comment on above: Order Comment: For i ndwelling catheters, specimen collection is acceptable on catheter day 1 and 2 only. ? Performed By: #### U [id number] #### [facility] (DEFAULT) [address] [place] [address] Nitrites Urine Negative Normal Negative [facility] Comment on above: Order Comment: For i ndwelling catheters, specimen collection is acceptable on catheter day 1 and 2 only. ? Performed By: #### U [id number] #### [facility] (DEFAULT) [address] [place] [address] pH (U) 5.5 [pH] Normal 5.0-7.0 [facility] Comment on above: Order Comment: For i ndwelling catheters, specimen collection is acceptable on catheter day 1 and 2 only. ? Performed By: #### U [id number] #### [facility] (DEFAULT) [address] [place] [address] Protein Urine 30 mg/dL Abnormal Negative [facility] Comment on above: Order Comment: For i ndwelling catheters, specimen collection is acceptable on catheter day 1 and 2 only. ? Performed By: #### U [id number] #### [facility] (DEFAULT) [address] [place] [address] RBC Urine 6-10 Abnormal 0-2 [facility] Comment on above: Order Comment: For i ndwelling catheters, specimen collection is acceptable on catheter day 1 and 2 only. ? Performed By: #### U [id number] #### [facility] (DEFAULT) [address] [place] [address] Specific Varina Urine 1.013 Normal 1.001 -1.03 5 [facility] Comment on above: Order Comment: For i ndwelling catheters, specimen collection is acceptable on catheter day 1 and 2 only. ? Performed By: #### U [id number] #### [facility] (DEFAULT) [address] [place] [address] Squamous/Epithelial Cells 0-2/hpf Normal 0-2/hpf, 3-5/hpf = 1+ [facility] Comment on above: Order Comment: For i ndwelling catheters, specimen collection is acceptable on catheter day 1 and 2 only. ? Performed By: #### U [id number] #### [facility] (DEFAULT) [address] [address] Urobilinogen Urine 0.2 E.U./dL Normal 0.2 E.U/dL, 1.0 E.U/dL [facility] Comment on above: Order Comment: For i ndwelling catheters, specimen collection is acceptable on catheter day 1 and 2 only. ? Performed By: #### U [id number] #### [facility] (DEFAULT) [address] [address] WBC LM.HPF (Urine sed) [#/Area] /[HPF] Abnormal 0 - 5 [facility] Comment on above: Order Comment: For i ndwelling catheters, specimen collection is acceptable on catheter day 1 and 2 only. ? Performed By: #### U [id number] #### [facility] (DEFAULT) [address] [address] URINE CULTUREon 10-12-2024 Bacteria identified Cx Nom (U) Normal [facility] Comment on above: Order Comment: For i [...] Performed By: #### S URGP #### [facility] (DEFAULT) [address] [address] XR ABDOMEN 1 VIEWon 10-12-20 24 XR [...] gaseous dilatation of the small bowel. Normal [facility] XR ABDOMEN 1 VIEW EXAM: XR ABDOMEN 1 V IEW, 10/12/2024 12:15 PM COMPARISON: Compared to prior study dated October 12, 2024 CLINICAL INDICATIONS: Confirm ng placement FINDINGS/IMPRESSION: Tubes: NG tube tip and sidehole are in the stomach. Bowel gas pattern: Slight interval increase in small bowel dilatation in the visualized upper abdomen. No visible free air. Normal [facility] XR ABDOMEN 1 VIEW PORTABLEon 10-12-2024 XR [...] bowel obstruction. No visible free air. Normal [facility] XR Abdomen Single viewon IMPRESSION: Enteric tube [...] Persistent gaseous dilatation of the small bowel. [facility] Radiology Study observation (narrative) [facility] FINDINGS/IMPRESSION: Tubes: NG tube tip and sidehole [...] visualized upper abdomen. No visible free air. [facility] Radiology Study observation (narrative) [facility] FINDINGS/IMPRESSION: Tubes: None. Bowel gas pattern: Gaseous [...] small bowel obstruction. No visible free air. [facility] Radiology Study observation (narrative) [facility] XR Abdomen Single viewOrdere d By: Sunny Winter on 10-12-2024 [facility] Work Phone: XR Abdomen Single viewOrdere d By: Charles Armendariz on 10-12-2024 [facility] Work Phone: XR CHEST 1 VIEW PORTABLEon [...] positioned left chest port. No pneumothorax. Normal [facility] Abdomen/Pel W ORAL Cont Only on 10-11-2024 Abdomen/Pel W ORAL Cont Only Normal [facility] Blood manual differential co mment interpretation (narrative result)Ordered By: Guy Ho on 10-11-2024 Manual differential comment Leonard (Bld) [Interp] COMMENT [facility] Comment on above: NEUTROPHILIA.LYMPHOP ENIA. CBC W/Diff, Automatedon 12- SMEAR COMMENT COMMENT Normal [facility] Comment on above: Result Comment: NEUT ROPHILIA.LYMPHOPENIA. Performed By: #### L 100.0100, L504.2610, L500.4050 ####[facility] [address] [place], [address] Chest PA and Lateralon 10-11 Chest PA and Lateral Normal [facility] Comprehensive Metabolic Prof ilon 10-11-2024 Albumin [Mass/Vol] 2.5 g/dL Low 3.2-5.0 [facility] Comment on above: Order Comment: 1 Performed By: #### L 100.0100, L504.2610, L500.4050 ####[facility] [address] [place], [address] Albumin/Globulin [Mass ratio] 0.4 {ratio} Low 0.9-2.4 [facility] Comment on above: Order Comment: 1 Performed By: #### L 100.0100, L504.2610, L500.4050 ####[facility] [address] [place], [address] ALK P 122 U/L High 45-117 [facility] Comment on above: Order Comment: 1 Performed By: #### L 100.0100, L504.2610, L500.4050 ####[facility] [address] [place], [address] ALT [Catalytic activity/Vol] 28 U/L Normal 16-61 [facility] Comment on above: Order Comment: 1 Performed By: #### L 100.0100, L504.2610, L500.4050 ####[facility] [address] [place], [address] AST [Catalytic activity/Vol] 15 U/L Normal 15-37 [facility] Comment on above: Order Comment: 1 Performed By: #### L 100.0100, L504.2610, L500.4050 ####[facility] [address] [place], [address] Bilirubin [Mass/Vol] 0.40 mg/dL Normal 0.20-1.00 [facility] Comment on above: Order Comment: 1 Result Comment: For patients on eltrombopag therapy, use of Dimension Telferner TBIL is not recommended. Performed By: #### L 100.0100, L504.2610, L500.4050 ####[facility] [address] [place], [address] BUN/CRE 19.8 RATIO Normal 10-20 [facility] Comment on above: Order Comment: 1 Performed By: #### L 100.0100, L504.2610, L500.4050 ####[facility] [address] [place], [address] CA,Total 10.1 mg/dL Normal 8.5-10.1 [facility] Comment on above: Order Comment: 1 Performed By: #### L 100.0100, L504.2610, L500.4050 ####[facility] [address] [place], [address] Chloride [Moles/Vol] 100 mmol/L Normal 98-107 [facility] Comment on above: Order Comment: 1 Performed By: #### L 100.0100, L504.2610, L500.4050 ####[facility] [address] [place], [address] CO2 [Moles/Vol] 25.0 mmol/L Normal 21.0-32.0 [facility] Comment on above: Order Comment: 1 Performed By: #### L 100.0100, L504.2610, L500.4050 ####[facility] [address] [place], [address] Creatinine [Mass/Vol] 3.24 mg/dL High 0.70-1.30 [facility] Comment on above: Order Comment: 1 Result Comment: The validity of the calculated GFR GFRAA in patients over70 years has not been determined. Clinical correlation isessential. Performed By: #### L 100.0100, L504.2610, L500.4050 ####[facility] [address] [place], [address] ECRCL 18.02 ml/min Normal [facility] Comment on above: Order Comment: 1 Performed By: #### L 100.0100, L504.2610, L500.4050 ####[facility] [address] [place], [address] EST GFR - AA 25 mL/min Low >60 [facility] Comment on above: Order Comment: 1 Result Comment: Afri can Sudanese GFR Calc Performed By: #### L 100.0100, L504.2610, L500.4050 ####[facility] [address] [place], [address] GAP 9 Normal 5-15 [facility] Comment on above: Order Comment: 1 Performed By: #### L 100.0100, L504.2610, L500.4050 ####[facility] [address] [place], [address] GFR/1.73 sq M.predicted among non-blacks MDRD (S/P/Bld) [Vol rate/Area] 21 mL/min/{1.73_m2} Low >60 [facility] Comment on above: Order Comment: 1 Result Comment: Non- GFR Calc Performed By: #### L 100.0100, L504.2610, L500.4050 ####[facility] [address] [place], [address] Globulin (S) [Mass/Vol] 6.1 g/dL High 2.2-4.2 [facility] Comment on above: Order Comment: 1 Performed By: #### L 100.0100, L504.2610, L500.4050 ####[facility] [address] [place], [address] Glucose [Mass/Vol] 132 mg/dL High 74-106 [facility] Comment on above: Order Comment: 1 Result Comment: Fast ing Glucose result greater than or equal to 126 mg/dLsuggests DIABETES MELLITUS per A.D.A. criteria. Performed By: #### L 100.0100, L504.2610, L500.4050 ####[facility] [address] [place], [address] Potassium [Moles/Vol] 4.6 mmol/L Normal 3.5-5.1 [facility] Comment on above: Order Comment: 1 Performed By: #### L 100.0100, L504.2610, L500.4050 ####[facility] [address] [place], [address] Sodium [Moles/Vol] 134 mmol/L Low 136-145 [facility] Comment on above: Order Comment: 1 Performed By: #### L 100.0100, L504.2610, L500.4050 ####[facility] [address] [place], [address] T PROT 8.6 g/dL High 6.4-8.2 [facility] Comment on above: Order Comment: 1 Performed By: #### L 100.0100, L504.2610, L500.4050 ####[facility] [address] [place], [address] Urea nitrogen [Mass/Vol] 64 mg/dL High 7-18 [facility] Comment on above: Order Comment: 1 Performed By: #### L 100.0100, L504.2610, L500.4050 ####[facility] [address] [place], [address] Emergency Department Summary on 10-11-2024 Emergency Department Summary Normal [facility] LDHon 10-11-2024 LDH 101 U/L Normal 87-241 [facility] Comment on above: Order Comment: 1 Performed By: #### L 100.0100, L504.2610, L500.4050 ####[facility] [address] [place], [address] Oncology Visit Reporton 09-20 Oncology Visit Report Normal [facility] Urinalysis, Completeon 10-11 BACTERIA 2+ /hpf Normal None Seen [facility] Comment on above: Order Comment: LOUANN CTOR TO SPECIFY Performed By: #### L 400.0001 ####[facility] [address] [place], [address] EPI,SQUAMOUS 0-5 SEEN Normal 0-5 [facility] Comment on above: Order Comment: LOUANN CTOR TO SPECIFY Performed By: #### L 400.0001 ####[facility] [address] [place], [address] Mucus Ql (Urine sed) 1+ /hpf Normal [facility] Comment on above: Order Comment: LOUANN CTOR TO SPECIFY Performed By: #### L 400.0001 ####[facility] [address] [place], [address] RBC 0-5 SEEN Normal 0-5 [facility] Comment on above: Order Comment: LOUANN CTOR TO SPECIFY Performed By: #### L 400.0001 ####[facility] [address] [place], [address] WBC 50-100 SEEN Normal 0-5 [facility] Comment on above: Order Comment: LOUANN CTOR TO SPECIFY Performed By: #### L 400.0001 ####[facility] [address] [place], [address] MRI RECTUM WITHOUT AND WITH CONTRASTon 10-07-2024 [...] Ostomy is only seen on the wider hqzux-bs-yxlw images. In the upper aspect of the [...] not fully evaluated on this exam. Normal [facility] BRCon 09-27-2024 RC Normal [facility] Comment on above: Result Comment: [id number] OP RC TRANSFUSED 09/28/24 1047 Performed By: #### B RC, BTS ####[facility] [address] [place], [address] Basic Metabolic Profile (BMP )on 09-27-2024 BUN Normal 7-18 [facility] Comment on above: Result Comment: DUPL ICATE ORDER TO INTERNAL ORDER Performed By: #### L 500.2500 ####[facility] [address] [place], [address] BUN/CRE Normal 10-20 [facility] Comment on above: Result Comment: DUPL ICATE ORDER TO INTERNAL ORDER Performed By: #### L 500.2500 ####[facility] [address] [place], [address] CA,Total Normal 8.5-10.1 [facility] Comment on above: Result Comment: DUPL ICATE ORDER TO INTERNAL ORDER Performed By: #### L 500.2500 ####[facility] [address] [place], [address] CL Normal 98-107 [facility] Comment on above: Result Comment: DUPL ICATE ORDER TO INTERNAL ORDER Performed By: #### L 500.2500 ####[facility] [address] [place], [address] CO2 Normal 21.0-32.0 [facility] Comment on above: Result Comment: DUPL ICATE ORDER TO INTERNAL ORDER Performed By: #### L 500.2500 ####[facility] [address] [place], [address] CREAT,SERUM Normal 0.70-1.30 [facility] Comment on above: Result Comment: DUPL ICATE ORDER TO INTERNAL ORDER Performed By: #### L 500.2500 ####[facility] [address] [place], [address] EST GFR Normal >60 [facility] Comment on above: Result Comment: DUPL ICATE ORDER TO INTERNAL ORDER Performed By: #### L 500.2500 ####[facility] [address] [place], [address] EST GFR - AA Normal >60 [facility] Comment on above: Result Comment: DUPL ICATE ORDER TO INTERNAL ORDER Performed By: #### L 500.2500 ####[facility] [address] [place], [address] GAP Normal 5-15 [facility] Comment on above: Result Comment: DUPL ICATE ORDER TO INTERNAL ORDER Performed By: #### L 500.2500 ####[facility] [address] [place], [address] GLU Normal 74-106 [facility] Comment on above: Result Comment: DUPL ICATE ORDER TO INTERNAL ORDER Performed By: #### L 500.2500 ####[facility] [address] [place], [address] Potassium Normal 3.5-5.1 [facility] Comment on above: Result Comment: DUPL ICATE ORDER TO INTERNAL ORDER Performed By: #### L 500.2500 ####[facility] [address] [place], [address] Basic Metabolic Profile (BMP) Normal 136-145 [facility] Comment on above: Result Comment: DUPL ICATE ORDER TO INTERNAL ORDER Performed By: #### L 500.2500 ####[facility] [address] [place], [address] CBC W/Diff, Automatedon 12-0 9-2023 Absolute Lymph 0.35 X10 3/uL Low 0.83-4.51 [facility] Comment on above: Performed By: #### L 100.0100, L500.4050 ####[facility] [address] [place], [address] Absolute Neut 11.1 X10 3/uL High 2.0-7.7 [facility] Comment on above: Performed By: #### L 100.0100, L500.4050 ####[facility] [address] [place], [address] Basophils/100 WBC (Bld) 0.5 % Normal 0-1 [facility] Comment on above: Performed By: #### L 100.0100, L500.4050 ####[facility] [address] [place], [address] Eosinophils/100 WBC (Bld) 1.0 % Normal 0-5 [facility] Comment on above: Performed By: #### L 100.0100, L500.4050 ####[facility] [address] [place], [address] Erythrocyte distribution width (RBC) [Ratio] 16.3 % High 11.6-14.6 [facility] Comment on above: Performed By: #### L 100.0100, L500.4050 ####[facility] [address] [place], [address] Hematocrit (Bld) [Volume fraction] 22.0 % Low 40-54 [facility] Comment on above: Performed By: #### L 100.0100, L500.4050 ####[facility] [address] [place], [address] Hemoglobin (Bld) [Mass/Vol] 6.9 g/dL Low 13.0-16.5 [facility] Comment on above: Performed By: #### L 100.0100, L500.4050 ####[facility] [address] [place], [address] IG% 2.100 High 0.0-0.9 [facility] Comment on above: Result Comment: IG% - Immature Granulocytes (promyelocytes, myelocytes andmetamyelocytes) > 1% indicates that a LEFT SHIFT is Present. Performed By: #### L 100.0100, L500.4050 ####[facility] [address] [place], [address] Lymphocytes/100 WBC (Bld) 2.7 % Low 19-41 [facility] Comment on above: Performed By: #### L 100.0100, L500.4050 ####[facility] [address] [place], [address] MCH (RBC) [Entitic mass] 29.2 pg Normal 27.0-32.0 [facility] Comment on above: Performed By: #### L 100.0100, L500.4050 ####[facility] [address] [place], [address] MCHC (RBC) [Mass/Vol] 31.4 g/dL Low 32-36 [facility] Comment on above: Performed By: #### L 100.0100, L500.4050 ####[facility] [address] [place], [address] MCV (RBC) [Entitic vol] 93.2 fL Normal 80-94 [facility] Comment on above: Performed By: #### L 100.0100, L500.4050 ####[facility] [address] [place], [address] Monocytes/100 WBC (Bld) 6.8 % Normal 0-10 [facility] Comment on above: Performed By: #### L 100.0100, L500.4050 ####[facility] [address] [place], [address] Neutrophils/100 WBC (Bld) 86.9 % High 47-70 [facility] Comment on above: Performed By: #### L 100.0100, L500.4050 ####[facility] [address] [place], [address] Nucleated RBC (Bld) [#/Vol] 0 10*3/uL Normal 0-5 [facility] Comment on above: Performed By: #### L 100.0100, L500.4050 ####[facility] [address] [place], [address] Platelet mean volume (Bld) [Entitic vol] 8.6 fL Normal 6.2-12.0 [facility] Comment on above: Performed By: #### L 100.0100, L500.4050 ####[facility] [address] [place], [address] Platelets (Bld) [#/Vol] 562 10*3/uL High 150-450 [facility] Comment on above: Performed By: #### L 100.0100, L500.4050 ####[facility] [address] [place], [address] RBC (Bld) [#/Vol] 2.36 10*6/uL Low 4.6-6.2 [facility] Comment on above: Performed By: #### L 100.0100, L500.4050 ####[facility] [address] [place], [address] RDW SD 55.6 fl High 35.1-43.9 [facility] Comment on above: Performed By: #### L 100.0100, L500.4050 ####[facility] [address] [place], [address] WBC (Bld) [#/Vol] 12.8 10*3/uL High 4.4-11.0 [facility] Comment on above: Performed By: #### L 100.0100, L500.4050 ####[facility] [address] [place], [address] Comprehensive Metabolic Prof ilon 09-27-2024 Albumin [Mass/Vol] 2.2 g/dL Low 3.2-5.0 [facility] Comment on above: Performed By: #### L 100.0100, L500.4050 ####[facility] [address] [place], [address] Albumin/Globulin [Mass ratio] 0.4 {ratio} Low 0.9-2.4 [facility] Comment on above: Performed By: #### L 100.0100, L500.4050 ####[facility] [address] [place], [address] ALK P 134 U/L High 45-117 [facility] Comment on above: Performed By: #### L 100.0100, L500.4050 ####[facility] [address] [place], [address] ALT [Catalytic activity/Vol] 40 U/L Normal 16-61 [facility] Comment on above: Performed By: #### L 100.0100, L500.4050 ####[facility] [address] [place], [address] AST [Catalytic activity/Vol] 20 U/L Normal 15-37 [facility] Comment on above: Performed By: #### L 100.0100, L500.4050 ####[facility] [address] [place], [address] Bilirubin [Mass/Vol] 0.30 mg/dL Normal 0.20-1.00 [facility] Comment on above: Result Comment: For patients on eltrombopag therapy, use of Dimension Telferner TBIL is not recommended. Performed By: #### L 100.0100, L500.4050 ####[facility] [address] [place], [address] BUN/CRE 21.6 RATIO High 10-20 [facility] Comment on above: Performed By: #### L 100.0100, L500.4050 ####[facility] [address] [place], [address] CA,Total 9.4 mg/dL Normal 8.5-10.1 [facility] Comment on above: Performed By: #### L 100.0100, L500.4050 ####[facility] [address] [place], [address] Chloride [Moles/Vol] 103 mmol/L Normal 98-107 [facility] Comment on above: Performed By: #### L 100.0100, L500.4050 ####[facility] [address] [place], [address] CO2 [Moles/Vol] 28.0 mmol/L Normal 21.0-32.0 [facility] Comment on above: Performed By: #### L 100.0100, L500.4050 ####[facility] [address] [place], [address] Creatinine [Mass/Vol] 2.32 mg/dL High 0.70-1.30 [facility] Comment on above: Result Comment: The validity of the calculated GFR GFRAA in patients over70 years has not been determined. Clinical correlation isessential. Performed By: #### L 100.0100, L500.4050 ####[facility] [address] [place], [address] ECRCL 25.26 ml/min Normal [facility] Comment on above: Performed By: #### L 100.0100, L500.4050 ####[facility] [address] [place], [address] EST GFR - AA 37 mL/min Low >60 [facility] Comment on above: Result Comment: Afri can Sudanese GFR Calc Performed By: #### L 100.0100, L500.4050 ####[facility] [address] [place], [address] GAP 6 Normal 5-15 [facility] Comment on above: Performed By: #### L 100.0100, L500.4050 ####[facility] [address] [place], [address] GFR/1.73 sq M.predicted among non-blacks MDRD (S/P/Bld) [Vol rate/Area] 31 mL/min/{1.73_m2} Low >60 [facility] Comment on above: Result Comment: Non- GFR Calc Performed By: #### L 100.0100, L500.4050 ####[facility] [address] [place], [address] Globulin (S) [Mass/Vol] 5.4 g/dL High 2.2-4.2 [facility] Comment on above: Performed By: #### L 100.0100, L500.4050 ####[facility] [address] [place], [address] Glucose [Mass/Vol] 140 mg/dL High 74-106 [facility] Comment on above: Result Comment: Fast ing Glucose result greater than or equal to 126 mg/dLsuggests DIABETES MELLITUS per A.D.A. criteria. Performed By: #### L 100.0100, L500.4050 ####[facility] [address] [place], [address] Potassium [Moles/Vol] 4.0 mmol/L Normal 3.5-5.1 [facility] Comment on above: Performed By: #### L 100.0100, L500.4050 ####[facility] [address] [place], [address] Sodium [Moles/Vol] 138 mmol/L Normal 136-145 [facility] Comment on above: Performed By: #### L 100.0100, L500.4050 ####[facility] [address] [place], [address] T PROT 7.6 g/dL Normal 6.4-8.2 [facility] Comment on above: Performed By: #### L 100.0100, L500.4050 ####[facility] [address] [place], [address] Urea nitrogen [Mass/Vol] 50 mg/dL High 7-18 [facility] Comment on above: Performed By: #### L 100.0100, L500.4050 ####[facility] [address] [place], [address] Ferritinon 09-27-2024 Ferritin [Mass/Vol] 1681 ng/mL High 26-388 [facility] Comment on above: Order Comment: PLEAS E ADD TO BLOOD IN LAB THANK YOU!!! Performed By: #### L 503.6030, L503.6550 ####[facility] [address] [place], [address] Ferritin measurementOrdered By: Rubi Mercedes on 09-27-2024 Ferritin [Mass/Vol] 1681 ng/mL High 26-388 [facility] Iron measurement (mass/mass) Ordered By: Rubi Mercedes on 09-27-2024 Iron (Unsp spec) [Mass/Mass] 26 ug/dL Low 65-175 [facility] Iron+Iron Binding Capacityon 09-27-2024 Iron [Mass/Vol] 26 ug/dL Low 65-175 [facility] Comment on above: Order Comment: PLEAS E ADD TO BLOOD IN LAB THANK YOU!!! Performed By: #### L 503.6030, L503.6550 ####[facility] [address] [place], [address] IRON SATURATION 17.8 Normal 15.0-55.0 [facility] Comment on above: Order Comment: PLEAS E ADD TO BLOOD IN LAB THANK YOU!!! Performed By: #### L 503.6030, L503.6550 ####[facility] [address] [place], [address] TIBC 146 ug/dL Low 250-450 [facility] Comment on above: Order Comment: PLEAS E ADD TO BLOOD IN LAB THANK YOU!!! Performed By: #### L 503.6030, L503.6550 ####[facility] [address] [place], [address] Oncology Visit Reporton Oncology Visit Report Normal [facility] Serum or plasma iron saturat ion measurement (mass fraction)Ordered By: Rubi Mercedes on 09-27-2024 Iron saturation [Mass fraction] 17.8 % 15.0-55.0 [facility] Type AND Screenon 09-27-2024 ABO and Rh group Nom (Bld) Blood group A Rh(D) positive Normal [facility] Comment on above: Order Comment: N111/20 @[id number] Performed By: #### B RC, BTS ####[facility] [address] [place], [address] Basic Metabolic Profile (BMP )on 09-24-2024 BUN/CRE 21.1 RATIO High 10-20 [facility] Comment on above: Performed By: #### L 500.2500 ####[facility] [address] [place], [address] CA,Total 9.3 mg/dL Normal 8.5-10.1 [facility] Comment on above: Performed By: #### L 500.2500 ####[facility] [address] [place], [address] Chloride [Moles/Vol] 102 mmol/L Normal 98-107 [facility] Comment on above: Performed By: #### L 500.2500 ####[facility] [address] [place], [address] CO2 [Moles/Vol] 27.0 mmol/L Normal 21.0-32.0 [facility] Comment on above: Performed By: #### L 500.2500 ####[facility] [address] [place], [address] Creatinine [Mass/Vol] 2.61 mg/dL High 0.70-1.30 [facility] Comment on above: Result Comment: The validity of the calculated GFR GFRAA in patients over70 years has not been determined. Clinical correlation isessential. Performed By: #### L 500.2500 ####[facility] [address] [place] [address] ECRCL 22.17 ml/min Normal [facility] Comment on above: Performed By: #### L 500.2500 ####[facility] [address] [place], [address] EST GFR - AA 33 mL/min Low >60 [facility] Comment on above: Result Comment: Afri can Sudanese GFR Calc Performed By: #### L 500.2500 ####[facility] [address] [place] [id number] GAP 6 Normal 5-15 [facility] Comment on above: Performed By: #### L 500.2500 ####[facility] [address] [place], [address] GFR/1.73 sq M.predicted among non-blacks MDRD (S/P/Bld) [Vol rate/Area] 27 mL/min/{1.73_m2} Low >60 [facility] Comment on above: Result Comment: Non- GFR Calc Performed By: #### L 500.2500 ####[facility] [address] [place], [address] Glucose [Mass/Vol] 125 mg/dL High 74-106 [facility] Comment on above: Result Comment: Fast ing Glucose result from 100 to 125 mg/dLsuggests IMPAIRED HOMEOSTASIS per A.D.A. criteria. Performed By: #### L 500.2500 ####[facility] [address] [place], [address] Potassium [Moles/Vol] 4.5 mmol/L Normal 3.5-5.1 [facility] Comment on above: Performed By: #### L 500.2500 ####[facility] [address] [place], [address] Sodium [Moles/Vol] 135 mmol/L Low 136-145 [facility] Comment on above: Performed By: #### L 500.2500 ####[facility] [address] [place], [address] Urea nitrogen [Mass/Vol] 55 mg/dL High 7-18 [facility] Comment on above: Performed By: #### L 500.2500 ####[facility] [address] [place], [address] CBC W/Diff, Automatedon 11-2 -2023 Absolute Lymph 0.20 X10 3/uL Low 0.83-4.51 [facility] Comment on above: Performed By: #### L 500.4050, L100.0100 ####[facility] [address] [place], [address] Absolute Neut 13.5 X10 3/uL High 2.0-7.7 [facility] Comment on above: Performed By: #### L 500.4050, L100.0100 ####[facility] [address] [place], [address] Basophils/100 WBC (Bld) 0.3 % Normal 0-1 [facility] Comment on above: Performed By: #### L 500.4050, L100.0100 ####[facility] [address] [place], [address] Eosinophils/100 WBC (Bld) 0.3 % Normal 0-5 [facility] Comment on above: Performed By: #### L 500.4050, L100.0100 ####[facility] [address] [place], [address] Erythrocyte distribution width (RBC) [Ratio] 16.4 % High 11.6-14.6 [facility] Comment on above: Performed By: #### L 500.4050, L100.0100 ####[facility] [address] [place], [address] Hematocrit (Bld) [Volume fraction] 22.8 % Low 40-54 [facility] Comment on above: Performed By: #### L 500.4050, L100.0100 ####[facility] [address] [place], [address] Hemoglobin (Bld) [Mass/Vol] 7.3 g/dL Low 13.0-16.5 [facility] Comment on above: Performed By: #### L 500.4050, L100.0100 ####[facility] [address] [place], [address] IG% 1.500 High 0.0-0.9 [facility] Comment on above: Result Comment: IG% - Immature Granulocytes (promyelocytes, myelocytes andmetamyelocytes) > 1% indicates that a LEFT SHIFT is Present. Performed By: #### L 500.4050, L100.0100 ####[facility] [address] [place], [address] Lymphocytes/100 WBC (Bld) 1.3 % Low 19-41 [facility] Comment on above: Performed By: #### L 500.4050, L100.0100 ####[facility] [address] [place], [address] MCH (RBC) [Entitic mass] 29.2 pg Normal 27.0-32.0 [facility] Comment on above: Performed By: #### L 500.4050, L100.0100 ####[facility] [address] [place], [address] MCHC (RBC) [Mass/Vol] 32.0 g/dL Normal 32-36 [facility] Comment on above: Performed By: #### L 500.4050, L100.0100 ####[facility] [address] [place], [address] MCV (RBC) [Entitic vol] 91.2 fL Normal 80-94 [facility] Comment on above: Performed By: #### L 500.4050, L100.0100 ####[facility] [address] [place], [address] Monocytes/100 WBC (Bld) 6.2 % Normal 0-10 [facility] Comment on above: Performed By: #### L 500.4050, L100.0100 ####[facility] [address] [place], [address] Neutrophils/100 WBC (Bld) 90.4 % High 47-70 [facility] Comment on above: Performed By: #### L 500.4050, L100.0100 ####[facility] [address] [place], [address] Nucleated RBC (Bld) [#/Vol] 0 10*3/uL Normal 0-5 [facility] Comment on above: Performed By: #### L 500.4050, L100.0100 ####[facility] [address] [place], [address] Platelet mean volume (Bld) [Entitic vol] 8.2 fL Normal 6.2-12.0 [facility] Comment on above: Performed By: #### L 500.4050, L100.0100 ####[facility] [address] [place], [address] Platelets (Bld) [#/Vol] 585 10*3/uL High 150-450 [facility] Comment on above: Performed By: #### L 500.4050, L100.0100 ####[facility] [address] [place], [address] RBC (Bld) [#/Vol] 2.50 10*6/uL Low 4.6-6.2 [facility] Comment on above: Performed By: #### L 500.4050, L100.0100 ####[facility] [address] [place], [address] RDW SD 55.0 fl High 35.1-43.9 [facility] Comment on above: Performed By: #### L 500.4050, L100.0100 ####[facility] [address] [place], [address] WBC (Bld) [#/Vol] 15.0 10*3/uL High 4.4-11.0 [facility] Comment on above: Performed By: #### L 500.4050, L100.0100 ####[facility] [address] [place], [address] Comprehensive Metabolic Prof ilon 09-13-2024 Albumin [Mass/Vol] 2.1 g/dL Low 3.2-5.0 [facility] Comment on above: Performed By: #### L 500.4050, L100.0100 ####[facility] [address] [place], [address] Albumin/Globulin [Mass ratio] 0.4 {ratio} Low 0.9-2.4 [facility] Comment on above: Performed By: #### L 500.4050, L100.0100 ####[facility] [address] [place], [address] ALK P 160 U/L High 45-117 [facility] Comment on above: Performed By: #### L 500.4050, L100.0100 ####[facility] [address] [place], [address] ALT [Catalytic activity/Vol] 40 U/L Normal 16-61 [facility] Comment on above: Performed By: #### L 500.4050, L100.0100 ####[facility] [address] [place], [address] AST [Catalytic activity/Vol] 17 U/L Normal 15-37 [facility] Comment on above: Performed By: #### L 500.4050, L100.0100 ####[facility] [address] [place], [address] Bilirubin [Mass/Vol] 0.30 mg/dL Normal 0.20-1.00 [facility] Comment on above: Result Comment: For patients on eltrombopag therapy, use of Dimension Telferner TBIL is not recommended. Performed By: #### L 500.4050, L100.0100 ####[facility] [address] [place], [address] BUN/CRE 18.3 RATIO Normal 10-20 [facility] Comment on above: Performed By: #### L 500.4050, L100.0100 ####[facility] [address] [place], [address] CA,Total 9.0 mg/dL Normal 8.5-10.1 [facility] Comment on above: Performed By: #### L 500.4050, L100.0100 ####[facility] [address] [place], [address] Chloride [Moles/Vol] 106 mmol/L Normal 98-107 [facility] Comment on above: Performed By: #### L 500.4050, L100.0100 ####[facility] [address] [place], [address] CO2 [Moles/Vol] 26.0 mmol/L Normal 21.0-32.0 [facility] Comment on above: Performed By: #### L 500.4050, L100.0100 ####[facility] [address] [place], [address] Creatinine [Mass/Vol] 2.35 mg/dL High 0.70-1.30 [facility] Comment on above: Result Comment: The validity of the calculated GFR GFRAA in patients over70 years has not been determined. Clinical correlation isessential. Performed By: #### L 500.4050, L100.0100 ####[facility] [address] [place], [address] ECRCL 27.12 ml/min Normal [facility] Comment on above: Performed By: #### L 500.4050, L100.0100 ####[facility] [address] [place], [address] EST GFR - AA 37 mL/min Low >60 [facility] Comment on above: Result Comment: Afri can Sudanese GFR Calc Performed By: #### L 500.4050, L100.0100 ####[facility] [address] [place], [address] GAP 7 Normal 5-15 [facility] Comment on above: Performed By: #### L 500.4050, L100.0100 ####[facility] [address] [place], [address] GFR/1.73 sq M.predicted among non-blacks MDRD (S/P/Bld) [Vol rate/Area] 30 mL/min/{1.73_m2} Low >60 [facility] Comment on above: Result Comment: Non- GFR Calc Performed By: #### L 500.4050, L100.0100 ####[facility] [address] [place], [address] Globulin (S) [Mass/Vol] 5.1 g/dL High 2.2-4.2 [facility] Comment on above: Performed By: #### L 500.4050, L100.0100 ####[facility] [address] [place], [address] Glucose [Mass/Vol] 125 mg/dL High 74-106 [facility] Comment on above: Result Comment: Fast ing Glucose result from 100 to 125 mg/dLsuggests IMPAIRED HOMEOSTASIS per A.D.A. criteria. Performed By: #### L 500.4050, L100.0100 ####[facility] [address] [place], [address] Potassium [Moles/Vol] 3.7 mmol/L Normal 3.5-5.1 [facility] Comment on above: Performed By: #### L 500.4050, L100.0100 ####[facility] [address] [place], [address] Sodium [Moles/Vol] 138 mmol/L Normal 136-145 [facility] Comment on above: Performed By: #### L 500.4050, L100.0100 ####[facility] [address] [place], [address] T PROT 7.2 g/dL Normal 6.4-8.2 [facility] Comment on above: Performed By: #### L 500.4050, L100.0100 ####[facility] [address] [place], [address] Urea nitrogen [Mass/Vol] 43 mg/dL High 7-18 [facility] Comment on above: Performed By: #### L 500.4050, L100.0100 ####[facility] [address] [place], [address] Ferritinon 09-13-2024 Ferritin [Mass/Vol] 1896 ng/mL High 26-388 [facility] Comment on above: Order Comment: PLEAS E ADD ON TO BLOOD IN LAB. THANK YOU!!N Performed By: #### L 503.6030, L506.0250, L503.0105, L503.6550 ####[facility] [address] [place], [address] Folates, (Folic Acid)on 08-21 FOLATES 27.50 ng/mL Normal 3.1-55.4 [facility] Comment on above: Order Comment: PLEAS E ADD ON TO BLOOD IN LAB. THANK YOU!!N Performed By: #### L 503.6030, L506.0250, L503.0105, L503.6550 ####[facility] [address] [place], [address] Iron+Iron Binding Capacityon 09-13-2024 Iron [Mass/Vol] 12 ug/dL Low 65-175 [facility] Comment on above: Order Comment: PLEAS E ADD ON TO BLOOD IN LAB. THANK YOU!!N Performed By: #### L 503.6030, L506.0250, L503.0105, L503.6550 ####[facility] [address] [place], [address] IRON SATURATION 8.6 Low 15.0-55.0 [facility] Comment on above: Order Comment: PLEAS E ADD ON TO BLOOD IN LAB. THANK YOU!!N Performed By: #### L 503.6030, L506.0250, L503.0105, L503.6550 ####[facility] [address] [place], [address] TIBC 140 ug/dL Low 250-450 [facility] Comment on above: Order Comment: PLEAS E ADD ON TO BLOOD IN LAB. THANK YOU!!N Performed By: #### L 503.6030, L506.0250, L503.0105, L503.6550 ####[facility] [address] [place], [address] Oncology Visit Reporton 08-21 Oncology Visit Report Normal [facility] Vitamin B12on 09-13-2024 Cobalamin (Vitamin B12) [Mass/Vol] 887 pg/mL Normal 211-911 [facility] Comment on above: Order Comment: PLEAS E ADD ON TO BLOOD IN LAB. THANK YOU!! Performed By: #### L 503.6030, L506.0250, L503.0105, L503.6550 ####[facility] [address] [place], [address] Vitamin B12 measurementOrder ed By: Guy Ho on 09-13-2024 Cobalamin (Vitamin B12) [Mass/Vol] 887 pg/mL 211-911 [facility] CBC W/Diff, Automatedon 07-21 PATH REV Reviewed Normal [facility] Comment on above: Result Comment: Neut rophilic leukocytosis.Normocytic anemia.Clinical correlation necessary.Nithin Matthew M.D. 08/17/24 AMENDED REPORT 08/17/24 1412 PATH REV previously reported as: February daniel Performed By: #### L 100.0100, L500.2500 ####[facility] [address] [place], [address] Ferritinon 08-17-2024 Ferritin [Mass/Vol] 2185 ng/mL High 26-388 [facility] Comment on above: Order Comment: PLEAS E ADD ON TO BLOOD IN LAB. THANK YOU!!! Performed By: #### L 503.6550, L503.6030 ####[facility] [address] [place], [address] Iron+Iron Binding Capacityon 08-17-2024 Iron [Mass/Vol] 19 ug/dL Low 65-175 [facility] Comment on above: Order Comment: PLEAS E ADD ON TO BLOOD IN LAB. THANK YOU!!! Performed By: #### L 503.6550, L503.6030 ####[facility] [address] [place], [address] IRON SATURATION 9.4 Low 15.0-55.0 [facility] Comment on above: Order Comment: PLEAS E ADD ON TO BLOOD IN LAB. THANK YOU!!! Performed By: #### L 503.6550, L503.6030 ####[facility] [address] [place], [address] TIBC 202 ug/dL Low 250-450 [facility] Comment on above: Order Comment: PLEAS E ADD ON TO BLOOD IN LAB. THANK YOU!!! Performed By: #### L 503.6550, L503.6030 ####[facility] [address] [place], [address] Radiation Oncology Visiton 1 Radiation Oncology Visit Normal [facility] Radiation Oncology Visit Normal [facility] Basic Metabolic Profile (BMP )on 08-16-2024 BUN/CRE 25.7 RATIO High 10-20 [facility] Comment on above: Performed By: #### L 100.0100, L500.2500 ####[facility] [address] [place], [address] CA,Total 9.1 mg/dL Normal 8.5-10.1 [facility] Comment on above: Performed By: #### L 100.0100, L500.2500 ####[facility] [address] [place], [address] Chloride [Moles/Vol] 100 mmol/L Normal 98-107 [facility] Comment on above: Performed By: #### L 100.0100, L500.2500 ####[facility] [address] [place], [address] CO2 [Moles/Vol] 29.0 mmol/L Normal 21.0-32.0 [facility] Comment on above: Performed By: #### L 100.0100, L500.2500 ####[facility] [address] [place], [address] Creatinine [Mass/Vol] 1.44 mg/dL High 0.70-1.30 [facility] Comment on above: Result Comment: The validity of the calculated GFR GFRAA in patients over70 years has not been determined. Clinical correlation isessential. Performed By: #### L 100.0100, L500.2500 ####[facility] [address] [place], [address] ECRCL 44.26 ml/min Normal [facility] Comment on above: Performed By: #### L 100.0100, L500.2500 ####[facility] [address] [place], [address] EST GFR - AA 65 mL/min Normal >60 [facility] Comment on above: Result Comment: Afri can Sudanese GFR Calc Performed By: #### L 100.0100, L500.2500 ####[facility] [address] [place], [address] GAP 9 Normal 5-15 [facility] Comment on above: Performed By: #### L 100.0100, L500.2500 ####[facility] [address] [place], [address] GFR/1.73 sq M.predicted among non-blacks MDRD (S/P/Bld) [Vol rate/Area] 53 mL/min/{1.73_m2} Low >60 [facility] Comment on above: Result Comment: Non- GFR Calc Performed By: #### L 100.0100, L500.2500 ####[facility] [address] [place], [address] Glucose [Mass/Vol] 123 mg/dL High 74-106 [facility] Comment on above: Result Comment: Fast ing Glucose result from 100 to 125 mg/dLsuggests IMPAIRED HOMEOSTASIS per A.D.A. criteria. Performed By: #### L 100.0100, L500.2500 ####[facility] [address] [place], [address] Potassium [Moles/Vol] 4.3 mmol/L Normal 3.5-5.1 [facility] Comment on above: Performed By: #### L 100.0100, L500.2500 ####[facility] [address] [place], [address] Sodium [Moles/Vol] 138 mmol/L Normal 136-145 [facility] Comment on above: Performed By: #### L 100.0100, L500.2500 ####[facility] [address] [place], [address] Urea nitrogen [Mass/Vol] 37 mg/dL High 7-18 [facility] Comment on above: Performed By: #### L 100.0100, L500.2500 ####[facility] [address] [place], [address] Oncology Visit Reporton 07-21 Oncology Visit Report Normal [facility] Radiation Oncology Visiton 1 Radiation Oncology Visit Normal [facility] CBC W/Diff, Automatedon 07-21 Absolute Lymph 0.19 X10 3/uL Low 0.83-4.51 [facility] Comment on above: Performed By: #### L 500.4050, L100.0100 ####[facility] [address] [place], [address] Absolute Neut 7.2 X10 3/uL Normal 2.0-7.7 [facility] Comment on above: Performed By: #### L 500.4050, L100.0100 ####[facility] [address] [place], [address] Basophils/100 WBC (Bld) 0.5 % Normal 0-1 [facility] Comment on above: Performed By: #### L 500.4050, L100.0100 ####[facility] [address] [place], [address] Eosinophils/100 WBC (Bld) 0.7 % Normal 0-5 [facility] Comment on above: Performed By: #### L 500.4050, L100.0100 ####[facility] [address] [place], [address] Erythrocyte distribution width (RBC) [Ratio] 14.6 % Normal 11.6-14.6 [facility] Comment on above: Performed By: #### L 500.4050, L100.0100 ####[facility] [address] [place], [address] Hematocrit (Bld) [Volume fraction] 30.7 % Low 40-54 [facility] Comment on above: Performed By: #### L 500.4050, L100.0100 ####[facility] [address] [place], [address] Hemoglobin (Bld) [Mass/Vol] 10.0 g/dL Low 13.0-16.5 [facility] Comment on above: Performed By: #### L 500.4050, L100.0100 ####[facility] [address] [place], [address] IG% 0.700 Normal 0.0-0.9 [facility] Comment on above: Result Comment: IG% - Immature Granulocytes (promyelocytes, myelocytes andmetamyelocytes) > 1% indicates that a LEFT SHIFT is Present. Performed By: #### L 500.4050, L100.0100 ####[facility] [address] [place], [address] Lymphocytes/100 WBC (Bld) 2.2 % Low 19-41 [facility] Comment on above: Performed By: #### L 500.4050, L100.0100 ####[facility] [address] [place], [address] MCH (RBC) [Entitic mass] 29.3 pg Normal 27.0-32.0 [facility] Comment on above: Performed By: #### L 500.4050, L100.0100 ####[facility] [address] [place], [address] MCHC (RBC) [Mass/Vol] 32.6 g/dL Normal 32-36 [facility] Comment on above: Performed By: #### L 500.4050, L100.0100 ####[facility] [address] [place], [address] MCV (RBC) [Entitic vol] 90.0 fL Normal 80-94 [facility] Comment on above: Performed By: #### L 500.4050, L100.0100 ####[facility] [address] [place], [address] Monocytes/100 WBC (Bld) 12.8 % High 0-10 [facility] Comment on above: Performed By: #### L 500.4050, L100.0100 ####[facility] [address] [place], [address] Neutrophils/100 WBC (Bld) 83.1 % High 47-70 [facility] Comment on above: Performed By: #### L 500.4050, L100.0100 ####[facility] [address] [place], [address] Nucleated RBC (Bld) [#/Vol] 0 10*3/uL Normal 0-5 [facility] Comment on above: Performed By: #### L 500.4050, L100.0100 ####[facility] [address] [place], [address] Platelet mean volume (Bld) [Entitic vol] 8.0 fL Normal 6.2-12.0 [facility] Comment on above: Performed By: #### L 500.4050, L100.0100 ####[facility] [address] [place], [address] Platelets (Bld) [#/Vol] 306 10*3/uL Normal 150-450 [facility] Comment on above: Performed By: #### L 500.4050, L100.0100 ####[facility] [address] [place], [address] RBC (Bld) [#/Vol] 3.41 10*6/uL Low 4.6-6.2 [facility] Comment on above: Performed By: #### L 500.4050, L100.0100 ####[facility] [address] [place], [address] RDW SD 46.5 fl High 35.1-43.9 [facility] Comment on above: Performed By: #### L 500.4050, L100.0100 ####[facility] [address] [place], [address] WBC (Bld) [#/Vol] 8.7 10*3/uL Normal 4.4-11.0 [facility] Comment on above: Performed By: #### L 500.4050, L100.0100 ####[facility] [address] [place], [address] Comprehensive Metabolic Prof ilon 08-09-2024 Albumin [Mass/Vol] 2.4 g/dL Low 3.2-5.0 [facility] Comment on above: Performed By: #### L 500.4050, L100.0100 ####[facility] [address] [place], [address] Albumin/Globulin [Mass ratio] 0.5 {ratio} Low 0.9-2.4 [facility] Comment on above: Performed By: #### L 500.4050, L100.0100 ####[facility] [address] [place], [address] ALK P 90 U/L Normal 45-117 [facility] Comment on above: Performed By: #### L 500.4050, L100.0100 ####[facility] [address] [place], [address] ALT [Catalytic activity/Vol] 21 U/L Normal 16-61 [facility] Comment on above: Performed By: #### L 500.4050, L100.0100 ####[facility] [address] [place], [address] AST [Catalytic activity/Vol] 20 U/L Normal 15-37 [facility] Comment on above: Performed By: #### L 500.4050, L100.0100 ####[facility] [address] [place], [address] Bilirubin [Mass/Vol] 0.40 mg/dL Normal 0.20-1.00 [facility] Comment on above: Result Comment: For patients on eltrombopag therapy, use of Dimension Telferner TBIL is not recommended. Performed By: #### L 500.4050, L100.0100 ####[facility] [address] [place], [address] BUN/CRE 27.2 RATIO High 10-20 [facility] Comment on above: Performed By: #### L 500.4050, L100.0100 ####[facility] [address] [place], [address] CA,Total 9.2 mg/dL Normal 8.5-10.1 [facility] Comment on above: Performed By: #### L 500.4050, L100.0100 ####[facility] [address] [place], [address] Chloride [Moles/Vol] 102 mmol/L Normal 98-107 [facility] Comment on above: Performed By: #### L 500.4050, L100.0100 ####[facility] [address] [place], [address] CO2 [Moles/Vol] 30.0 mmol/L Normal 21.0-32.0 [facility] Comment on above: Performed By: #### L 500.4050, L100.0100 ####[facility] [address] [place], [address] Creatinine [Mass/Vol] 1.03 mg/dL Normal 0.70-1.30 [facility] Comment on above: Result Comment: The validity of the calculated GFR GFRAA in patients over70 years has not been determined. Clinical correlation isessential. Performed By: #### L 500.4050, L100.0100 ####[facility] [address] [place], [address] ECRCL 61.88 ml/min Normal [facility] Comment on above: Performed By: #### L 500.4050, L100.0100 ####[facility] [address] [place], [address] EST GFR - AA 95 mL/min Normal >60 [facility] Comment on above: Result Comment: Afri can Sudanese GFR Calc Performed By: #### L 500.4050, L100.0100 ####[facility] [address] [place], [address] GAP 6 Normal 5-15 [facility] Comment on above: Performed By: #### L 500.4050, L100.0100 ####[facility] [address] [place], [address] GFR/1.73 sq M.predicted among non-blacks MDRD (S/P/Bld) [Vol rate/Area] 79 mL/min/{1.73_m2} Normal >60 [facility] Comment on above: Result Comment: Non- GFR Calc Performed By: #### L 500.4050, L100.0100 ####[facility] [address] [place], [address] Globulin (S) [Mass/Vol] 5.3 g/dL High 2.2-4.2 [facility] Comment on above: Performed By: #### L 500.4050, L100.0100 ####[facility] [address] [place], [address] Glucose [Mass/Vol] 108 mg/dL High 74-106 [facility] Comment on above: Result Comment: Fast ing Glucose result from 100 to 125 mg/dLsuggests IMPAIRED HOMEOSTASIS per A.D.A. criteria. Performed By: #### L 500.4050, L100.0100 ####[facility] [address] [place], [address] Potassium [Moles/Vol] 3.5 mmol/L Normal 3.5-5.1 [facility] Comment on above: Performed By: #### L 500.4050, L100.0100 ####[facility] [address] [place], [address] Sodium [Moles/Vol] 137 mmol/L Normal 136-145 [facility] Comment on above: Performed By: #### L 500.4050, L100.0100 ####[facility] [address] [place], [address] T PROT 7.7 g/dL Normal 6.4-8.2 [facility] Comment on above: Performed By: #### L 500.4050, L100.0100 ####[facility] [address] [place], [address] Urea nitrogen [Mass/Vol] 28 mg/dL High 7-18 [facility] Comment on above: Performed By: #### L 500.4050, L100.0100 ####[facility] [address] [place], [address] LDHon 08-09-2024 LDH 115 U/L Normal 87-241 [facility] Comment on above: Order Comment: 1 Performed By: #### L 504.2610 ####[facility] [address] [place], [address] Oncology Visit Reporton - Oncology Visit Report Normal [facility] Radiation Oncology Visiton 1 - Radiation Oncology Visit Normal [facility] CBC W/Diff, Automatedon - Absolute Lymph 0.42 X10 3/uL Low 0.83-4.51 [facility] Comment on above: Performed By: #### L 100.0100, L500.4050 ####[facility] [address] [place], [address] Absolute Neut 5.5 X10 3/uL Normal 2.0-7.7 [facility] Comment on above: Performed By: #### L 100.0100, L500.4050 ####[facility] [address] [place], [address] Basophils/100 WBC (Bld) 0.4 % Normal 0-1 [facility] Comment on above: Performed By: #### L 100.0100, L500.4050 ####[facility] [address] [place], [address] Eosinophils/100 WBC (Bld) 3.2 % Normal 0-5 [facility] Comment on above: Performed By: #### L 100.0100, L500.4050 ####[facility] [address] [place], [address] Erythrocyte distribution width (RBC) [Ratio] 13.2 % Normal 11.6-14.6 [facility] Comment on above: Performed By: #### L 100.0100, L500.4050 ####[facility] [address] [place], [address] Hematocrit (Bld) [Volume fraction] 33.9 % Low 40-54 [facility] Comment on above: Performed By: #### L 100.0100, L500.4050 ####[facility] [address] [place], [address] Hemoglobin (Bld) [Mass/Vol] 11.0 g/dL Low 13.0-16.5 [facility] Comment on above: Performed By: #### L 100.0100, L500.4050 ####[facility] [address] [place], [address] IG% 1.400 High 0.0-0.9 [facility] Comment on above: Result Comment: IG% - Immature Granulocytes (promyelocytes, myelocytes andmetamyelocytes) > 1% indicates that a LEFT SHIFT is Present. Performed By: #### L 100.0100, L500.4050 ####[facility] [address] [place], [address] Lymphocytes/100 WBC (Bld) 6.1 % Low 19-41 [facility] Comment on above: Performed By: #### L 100.0100, L500.4050 ####[facility] [address] [place], [address] MCH (RBC) [Entitic mass] 29.3 pg Normal 27.0-32.0 [facility] Comment on above: Performed By: #### L 100.0100, L500.4050 ####[facility] [address] [place], [address] MCHC (RBC) [Mass/Vol] 32.4 g/dL Normal 32-36 [facility] Comment on above: Performed By: #### L 100.0100, L500.4050 ####[facility] [address] [place], [address] MCV (RBC) [Entitic vol] 90.2 fL Normal 80-94 [facility] Comment on above: Performed By: #### L 100.0100, L500.4050 ####[facility] [address] [place], [address] Monocytes/100 WBC (Bld) 9.4 % Normal 0-10 [facility] Comment on above: Performed By: #### L 100.0100, L500.4050 ####[facility] [address] [place], [address] Neutrophils/100 WBC (Bld) 79.5 % High 47-70 [facility] Comment on above: Performed By: #### L 100.0100, L500.4050 ####[facility] [address] [place], [address] Nucleated RBC (Bld) [#/Vol] 0 10*3/uL Normal 0-5 [facility] Comment on above: Performed By: #### L 100.0100, L500.4050 ####[facility] [address] [place], [address] Platelet mean volume (Bld) [Entitic vol] 7.8 fL Normal 6.2-12.0 [facility] Comment on above: Performed By: #### L 100.0100, L500.4050 ####[facility] [address] [place], [address] Platelets (Bld) [#/Vol] 286 10*3/uL Normal 150-450 [facility] Comment on above: Performed By: #### L 100.0100, L500.4050 ####[facility] [address] [place], [address] RBC (Bld) [#/Vol] 3.76 10*6/uL Low 4.6-6.2 [facility] Comment on above: Performed By: #### L 100.0100, L500.4050 ####[facility] [address] [place], [address] RDW SD 42.8 fl Normal 35.1-43.9 [facility] Comment on above: Performed By: #### L 100.0100, L500.4050 ####[facility] [address] [place], [address] WBC (Bld) [#/Vol] 6.9 10*3/uL Normal 4.4-11.0 [facility] Comment on above: Performed By: #### L 100.0100, L500.4050 ####[facility] [address] [place], [address] [facility] 08-02-2024 Albumin [Mass/Vol] 2.5 g/dL Low 3.2-5.0 [facility] Comment on above: Performed By: #### L 100.0100, L500.4050 ####[facility] [address] [place], [address] Albumin/Globulin [Mass ratio] 0.5 {ratio} Low 0.9-2.4 [facility] Comment on above: Performed By: #### L 100.0100, L500.4050 ####[facility] [address] [place], [address] ALK P 87 U/L Normal 45-117 [facility] Comment on above: Performed By: #### L 100.0100, L500.4050 ####[facility] [address] [place], [address] ALT [Catalytic activity/Vol] 27 U/L Normal 16-61 [facility] Comment on above: Performed By: #### L 100.0100, L500.4050 ####[facility] [address] [place], [address] AST [Catalytic activity/Vol] 13 U/L Low 15-37 [facility] Comment on above: Performed By: #### L 100.0100, L500.4050 ####[facility] [address] [place], [address] Bilirubin [Mass/Vol] 0.30 mg/dL Normal 0.20-1.00 [facility] Comment on above: Result Comment: For patients on eltrombopag therapy, use of Dimension Telferner TBIL is not recommended. Performed By: #### L 100.0100, L500.4050 ####[facility] [address] [place], [address] BUN/CRE 23.4 RATIO High 10-20 [facility] Comment on above: Performed By: #### L 100.0100, L500.4050 ####[facility] [address] [place], [address] CA,Total 9.4 mg/dL Normal 8.5-10.1 [facility] Comment on above: Performed By: #### L 100.0100, L500.4050 ####[facility] [address] [place], [address] Chloride [Moles/Vol] 105 mmol/L Normal 98-107 [facility] Comment on above: Performed By: #### L 100.0100, L500.4050 ####[facility] [address] [place], [address] CO2 [Moles/Vol] 29.0 mmol/L Normal 21.0-32.0 [facility] Comment on above: Performed By: #### L 100.0100, L500.4050 ####[facility] [address] [place], [address] Creatinine [Mass/Vol] 0.73 mg/dL Normal 0.70-1.30 [facility] Comment on above: Result Comment: The validity of the calculated GFR GFRAA in patients over70 years has not been determined. Clinical correlation isessential. Performed By: #### L 100.0100, L500.4050 ####[facility] [address] [place], [address] ECRCL 85.18 ml/min Normal [facility] Comment on above: Performed By: #### L 100.0100, L500.4050 ####[facility] [address] [place], [address] EST GFR - AA 142 mL/min Normal >60 [facility] Comment on above: Result Comment: Afri can Sudanese GFR Calc Performed By: #### L 100.0100, L500.4050 ####[facility] [address] [place], [address] GAP 6 Normal 5-15 [facility] Comment on above: Performed By: #### L 100.0100, L500.4050 ####[facility] [address] [place], [address] GFR/1.73 sq M.predicted among non-blacks MDRD (S/P/Bld) [Vol rate/Area] 117 mL/min/{1.73_m2} Normal >60 [facility] Comment on above: Result Comment: Non- GFR Calc Performed By: #### L 100.0100, L500.4050 ####[facility] [address] [place], [address] Globulin (S) [Mass/Vol] 4.9 g/dL High 2.2-4.2 [facility] Comment on above: Performed By: #### L 100.0100, L500.4050 ####[facility] [address] [place], [address] Glucose [Mass/Vol] 95 mg/dL Normal 74-106 [facility] Comment on above: Performed By: #### L 100.0100, L500.4050 ####[facility] [address] [place], [address] Potassium [Moles/Vol] 4.0 mmol/L Normal 3.5-5.1 [facility] Comment on above: Performed By: #### L 100.0100, L500.4050 ####[facility] [address] [place], [address] Sodium [Moles/Vol] 139 mmol/L Normal 136-145 [facility] Comment on above: Performed By: #### L 100.0100, L500.4050 ####[facility] [address] [place], [address] T PROT 7.4 g/dL Normal 6.4-8.2 [facility] Comment on above: Performed By: #### L 100.0100, L500.4050 ####[facility] [address] [place], [address] Urea nitrogen [Mass/Vol] 17 mg/dL Normal 7-18 [facility] Comment on above: Performed By: #### L 100.0100, L500.4050 ####[facility] [address] [place], [address] Oncology Visit Reporton 10-1 Oncology Visit Report Normal [facility] Radiation Oncology Visiton 1 0- Radiation Oncology Visit Normal [facility] CBC W/Diff, Automatedon 10-0 7-2024 Absolute Lymph 0.32 X10 3/uL Low 0.83-4.51 [facility] Comment on above: Performed By: #### L 500.4050, L100.0100 ####[facility] [address] [place], [address] Absolute Neut 11.1 X10 3/uL High 2.0-7.7 [facility] Comment on above: Performed By: #### L 500.4050, L100.0100 ####[facility] [address] [place], [address] Basophils/100 WBC (Bld) 0.4 % Normal 0-1 [facility] Comment on above: Performed By: #### L 500.4050, L100.0100 ####[facility] [address] [place], [address] Eosinophils/100 WBC (Bld) 0.4 % Normal 0-5 [facility] Comment on above: Performed By: #### L 500.4050, L100.0100 ####[facility] [address] [place], [address] Erythrocyte distribution width (RBC) [Ratio] 13.3 % Normal 11.6-14.6 [facility] Comment on above: Performed By: #### L 500.4050, L100.0100 ####[facility] [address] [place], [address] Hematocrit (Bld) [Volume fraction] 32.5 % Low 40-54 [facility] Comment on above: Performed By: #### L 500.4050, L100.0100 ####[facility] [address] [place], [address] Hemoglobin (Bld) [Mass/Vol] 10.6 g/dL Low 13.0-16.5 [facility] Comment on above: Performed By: #### L 500.4050, L100.0100 ####[facility] [address] [place], [address] IG% 0.600 Normal 0.0-0.9 [facility] Comment on above: Result Comment: IG% - Immature Granulocytes (promyelocytes, myelocytes andmetamyelocytes) > 1% indicates that a LEFT SHIFT is Present. Performed By: #### L 500.4050, L100.0100 ####[facility] [address] [place], [address] Lymphocytes/100 WBC (Bld) 2.5 % Low 19-41 [facility] Comment on above: Performed By: #### L 500.4050, L100.0100 ####[facility] [address] [place], [address] MCH (RBC) [Entitic mass] 29.1 pg Normal 27.0-32.0 [facility] Comment on above: Performed By: #### L 500.4050, L100.0100 ####[facility] [address] [place], [address] MCHC (RBC) [Mass/Vol] 32.6 g/dL Normal 32-36 [facility] Comment on above: Performed By: #### L 500.4050, L100.0100 ####[facility] [address] [place], [address] MCV (RBC) [Entitic vol] 89.3 fL Normal 80-94 [facility] Comment on above: Performed By: #### L 500.4050, L100.0100 ####[facility] [address] [place], [address] Monocytes/100 WBC (Bld) 9.6 % Normal 0-10 [facility] Comment on above: Performed By: #### L 500.4050, L100.0100 ####[facility] [address] [place], [address] Neutrophils/100 WBC (Bld) 86.5 % High 47-70 [facility] Comment on above: Performed By: #### L 500.4050, L100.0100 ####[facility] [address] [place], [address] Nucleated RBC (Bld) [#/Vol] 0 10*3/uL Normal 0-5 [facility] Comment on above: Performed By: #### L 500.4050, L100.0100 ####[facility] [address] [place], [address] Platelet mean volume (Bld) [Entitic vol] 7.9 fL Normal 6.2-12.0 [facility] Comment on above: Performed By: #### L 500.4050, L100.0100 ####[facility] [address] [place], [address] Platelets (Bld) [#/Vol] 259 10*3/uL Normal 150-450 [facility] Comment on above: Performed By: #### L 500.4050, L100.0100 ####[facility] [address] [place], [address] RBC (Bld) [#/Vol] 3.64 10*6/uL Low 4.6-6.2 [facility] Comment on above: Performed By: #### L 500.4050, L100.0100 ####[facility] [address] [place], [address] RDW SD 43.5 fl Normal 35.1-43.9 [facility] Comment on above: Performed By: #### L 500.4050, L100.0100 ####[facility] [address] [place], [address] WBC (Bld) [#/Vol] 12.8 10*3/uL High 4.4-11.0 [facility] Comment on above: Performed By: #### L 500.4050, L100.0100 ####[facility] [address] [place], [address] Comprehensive Metabolic Prof ilon 07-26-2024 Albumin [Mass/Vol] 2.4 g/dL Low 3.2-5.0 [facility] Comment on above: Performed By: #### L 500.4050, L100.0100 ####[facility] [address] [place], [address] Albumin/Globulin [Mass ratio] 0.5 {ratio} Low 0.9-2.4 [facility] Comment on above: Performed By: #### L 500.4050, L100.0100 ####[facility] [address] [place], [address] ALK P 82 U/L Normal 45-117 [facility] Comment on above: Performed By: #### L 500.4050, L100.0100 ####[facility] [address] [place], [address] ALT [Catalytic activity/Vol] 15 U/L Low 16-61 [facility] Comment on above: Performed By: #### L 500.4050, L100.0100 ####[facility] [address] [place], [address] AST [Catalytic activity/Vol] 12 U/L Low 15-37 [facility] Comment on above: Performed By: #### L 500.4050, L100.0100 ####[facility] [address] [place], [address] Bilirubin [Mass/Vol] 0.40 mg/dL Normal 0.20-1.00 [facility] Comment on above: Result Comment: For patients on eltrombopag therapy, use of Dimension Telferner TBIL is not recommended. Performed By: #### L 500.4050, L100.0100 ####[facility] [address] [place], [address] BUN/CRE 19.1 RATIO Normal 10-20 [facility] Comment on above: Performed By: #### L 500.4050, L100.0100 ####[facility] [address] [place], [address] CA,Total 9.4 mg/dL Normal 8.5-10.1 [facility] Comment on above: Performed By: #### L 500.4050, L100.0100 ####[facility] [address] [place], [address] Chloride [Moles/Vol] 99 mmol/L Normal 98-107 [facility] Comment on above: Performed By: #### L 500.4050, L100.0100 ####[facility] [address] [place], [address] CO2 [Moles/Vol] 29.0 mmol/L Normal 21.0-32.0 [facility] Comment on above: Performed By: #### L 500.4050, L100.0100 ####[facility] [address] [place], [address] Creatinine [Mass/Vol] 0.84 mg/dL Normal 0.70-1.30 [facility] Comment on above: Result Comment: The validity of the calculated GFR GFRAA in patients over70 years has not been determined. Clinical correlation isessential. Performed By: #### L 500.4050, L100.0100 ####[facility] [address] [place], [address] ECRCL 74.03 ml/min Normal [facility] Comment on above: Performed By: #### L 500.4050, L100.0100 ####[facility] [address] [place], [address] EST GFR - AA 121 mL/min Normal >60 [facility] Comment on above: Result Comment: Afri can Sudanese GFR Calc Performed By: #### L 500.4050, L100.0100 ####[facility] [address] [place], [address] GAP 4 Low 5-15 [facility] Comment on above: Performed By: #### L 500.4050, L100.0100 ####[facility] [address] [place], [address] GFR/1.73 sq M.predicted among non-blacks MDRD (S/P/Bld) [Vol rate/Area] 100 mL/min/{1.73_m2} Normal >60 [facility] Comment on above: Result Comment: Non- GFR Calc Performed By: #### L 500.4050, L100.0100 ####[facility] [address] [place], [address] Globulin (S) [Mass/Vol] 5.3 g/dL High 2.2-4.2 [facility] Comment on above: Performed By: #### L 500.4050, L100.0100 ####[facility] [address] [place], [address] Glucose [Mass/Vol] 113 mg/dL High 74-106 [facility] Comment on above: Result Comment: Fast ing Glucose result from 100 to 125 mg/dLsuggests IMPAIRED HOMEOSTASIS per A.D.A. criteria. Performed By: #### L 500.4050, L100.0100 ####[facility] [address] [place], [address] Potassium [Moles/Vol] 3.9 mmol/L Normal 3.5-5.1 [facility] Comment on above: Performed By: #### L 500.4050, L100.0100 ####[facility] [address] [place], [address] Sodium [Moles/Vol] 132 mmol/L Low 136-145 [facility] Comment on above: Performed By: #### L 500.4050, L100.0100 ####[facility] [address] [place], [address] T PROT 7.7 g/dL Normal 6.4-8.2 [facility] Comment on above: Performed By: #### L 500.4050, L100.0100 ####[facility] [address] [place], [address] Urea nitrogen [Mass/Vol] 16 mg/dL Normal 7-18 [facility] Comment on above: Performed By: #### L 500.4050, L100.0100 ####[facility] [address] [place], [address] Oncology Visit Reporton 10-0 Oncology Visit Report Normal [facility] Radiation Oncology Visiton 1 0--2023 Radiation Oncology Visit Normal [facility] CBC W/Diff, Automatedon 09-3 0-2023 Absolute Lymph 0.70 X10 3/uL Low 0.83-4.51 [facility] Comment on above: Performed By: #### L 500.4050, L100.0100 ####[facility] [address] [place], [address] Absolute Neut 8.4 X10 3/uL High 2.0-7.7 [facility] Comment on above: Performed By: #### L 500.4050, L100.0100 ####[facility] [address] [place], [address] Basophils/100 WBC (Bld) 0.7 % Normal 0-1 [facility] Comment on above: Performed By: #### L 500.4050, L100.0100 ####[facility] [address] [place], [address] Eosinophils/100 WBC (Bld) 1.4 % Normal 0-5 [facility] Comment on above: Performed By: #### L 500.4050, L100.0100 ####[facility] [address] [place], [address] Erythrocyte distribution width (RBC) [Ratio] 12.9 % Normal 11.6-14.6 [facility] Comment on above: Performed By: #### L 500.4050, L100.0100 ####[facility] [address] [place], [address] Hematocrit (Bld) [Volume fraction] 34.8 % Low 40-54 [facility] Comment on above: Performed By: #### L 500.4050, L100.0100 ####[facility] [address] [place], [address] Hemoglobin (Bld) [Mass/Vol] 11.2 g/dL Low 13.0-16.5 [facility] Comment on above: Performed By: #### L 500.4050, L100.0100 ####[facility] [address] [place], [address] IG% 1.400 High 0.0-0.9 [facility] Comment on above: Result Comment: IG% - Immature Granulocytes (promyelocytes, myelocytes andmetamyelocytes) > 1% indicates that a LEFT SHIFT is Present. Performed By: #### L 500.4050, L100.0100 ####[facility] [address] [place], [address] Lymphocytes/100 WBC (Bld) 7.0 % Low 19-41 [facility] Comment on above: Performed By: #### L 500.4050, L100.0100 ####[facility] [address] [place], [address] MCH (RBC) [Entitic mass] 29.1 pg Normal 27.0-32.0 [facility] Comment on above: Performed By: #### L 500.4050, L100.0100 ####[facility] [address] [place], [address] MCHC (RBC) [Mass/Vol] 32.2 g/dL Normal 32-36 [facility] Comment on above: Performed By: #### L 500.4050, L100.0100 ####[facility] [address] [place], [address] MCV (RBC) [Entitic vol] 90.4 fL Normal 80-94 [facility] Comment on above: Performed By: #### L 500.4050, L100.0100 ####[facility] [address] [place], [address] Monocytes/100 WBC (Bld) 5.1 % Normal 0-10 [facility] Comment on above: Performed By: #### L 500.4050, L100.0100 ####[facility] [address] [place], [address] Neutrophils/100 WBC (Bld) 84.4 % High 47-70 [facility] Comment on above: Performed By: #### L 500.4050, L100.0100 ####[facility] [address] [place], [address] Nucleated RBC (Bld) [#/Vol] 0 10*3/uL Normal 0-5 [facility] Comment on above: Performed By: #### L 500.4050, L100.0100 ####[facility] [address] [place], [address] Platelet mean volume (Bld) [Entitic vol] 8.2 fL Normal 6.2-12.0 [facility] Comment on above: Performed By: #### L 500.4050, L100.0100 ####[facility] [address] [place], [address] Platelets (Bld) [#/Vol] 480 10*3/uL High 150-450 [facility] Comment on above: Performed By: #### L 500.4050, L100.0100 ####[facility] [address] [place], [address] RBC (Bld) [#/Vol] 3.85 10*6/uL Low 4.6-6.2 [facility] Comment on above: Performed By: #### L 500.4050, L100.0100 ####[facility] [address] [place], [address] RDW SD 42.0 fl Normal 35.1-43.9 [facility] Comment on above: Performed By: #### L 500.4050, L100.0100 ####[facility] [address] [place], [address] WBC (Bld) [#/Vol] 10.0 10*3/uL Normal 4.4-11.0 [facility] Comment on above: Performed By: #### L 500.4050, L100.0100 ####[facility] [address] [place], [address] Absolute Neut Normal 2.0-7.7 [facility] Comment on above: Result Comment: DUPL ICATED ORDERS TO TX PLAN Performed By: #### L 500.4050, L100.0100 ####[facility] [address] [place], [address] HCT Normal 40-54 [facility] Comment on above: Result Comment: DUPL ICATED ORDERS TO TX PLAN Performed By: #### L 500.4050, L100.0100 ####[facility] [address] [place], [address] HGB Normal 13.0-16.5 [facility] Comment on above: Result Comment: DUPL ICATED ORDERS TO TX PLAN Performed By: #### L 500.4050, L100.0100 ####[facility] [address] [place], [address] MCH Normal 27.0-32.0 [facility] Comment on above: Result Comment: DUPL ICATED ORDERS TO TX PLAN Performed By: #### L 500.4050, L100.0100 ####[facility] [address] [place], [address] MCHC Normal 32-36 [facility] Comment on above: Result Comment: DUPL ICATED ORDERS TO TX PLAN Performed By: #### L 500.4050, L100.0100 ####[facility] [address] [place], [address] MCV Normal 80-94 [facility] Comment on above: Result Comment: DUPL ICATED ORDERS TO TX PLAN Performed By: #### L 500.4050, L100.0100 ####[facility] [address] [place], [address] NEUT% Normal 47-70 [facility] Comment on above: Result Comment: DUPL ICATED ORDERS TO TX PLAN Performed By: #### L 500.4050, L100.0100 ####[facility] [address] [place], [address] PLT Normal 150-450 [facility] Comment on above: Result Comment: DUPL ICATED ORDERS TO TX PLAN Performed By: #### L 500.4050, L100.0100 ####[facility] [address] [place], [address] RBC Normal 4.6-6.2 [facility] Comment on above: Result Comment: DUPL ICATED ORDERS TO TX PLAN Performed By: #### L 500.4050, L100.0100 ####[facility] [address] [place], [address] RDW CV Normal 11.6-14.6 [facility] Comment on above: Result Comment: DUPL ICATED ORDERS TO TX PLAN Performed By: #### L 500.4050, L100.0100 ####[facility] [address] [place], [address] RDW SD Normal 35.1-43.9 [facility] Comment on above: Result Comment: DUPL ICATED ORDERS TO TX PLAN Performed By: #### L 500.4050, L100.0100 ####[facility] [address] [place], [address] WBC Normal 4.4-11.0 [facility] Comment on above: Result Comment: DUPL ICATED ORDERS TO TX PLAN Performed By: #### L 500.4050, L100.0100 ####[facility] [address] [place], [address] Comprehensive Metabolic Prof [facility] 07-19-2024 Albumin [Mass/Vol] 2.4 g/dL Low 3.2-5.0 [facility] Comment on above: Performed By: #### L 500.4050, L100.0100 ####[facility] [address] [place], [address] Albumin/Globulin [Mass ratio] 0.5 {ratio} Low 0.9-2.4 [facility] Comment on above: Performed By: #### L 500.4050, L100.0100 ####[facility] [address] [place], [address] ALK P 85 U/L Normal 45-117 [facility] Comment on above: Performed By: #### L 500.4050, L100.0100 ####[facility] [address] [place], [address] ALT [Catalytic activity/Vol] 17 U/L Normal 16-61 [facility] Comment on above: Performed By: #### L 500.4050, L100.0100 ####[facility] [address] [place], [address] AST [Catalytic activity/Vol] 13 U/L Low 15-37 [facility] Comment on above: Performed By: #### L 500.4050, L100.0100 ####[facility] [address] [place], [address] Bilirubin [Mass/Vol] 0.50 mg/dL Normal 0.20-1.00 [facility] Comment on above: Result Comment: For patients on eltrombopag therapy, use of Dimension Telferner TBIL is not recommended. Performed By: #### L 500.4050, L100.0100 ####[facility] [address] [place], [address] BUN/CRE 17.1 RATIO Normal 10-20 [facility] Comment on above: Performed By: #### L 500.4050, L100.0100 ####[facility] [address] [place], [address] CA,Total 9.3 mg/dL Normal 8.5-10.1 [facility] Comment on above: Performed By: #### L 500.4050, L100.0100 ####[facility] [address] [place], [address] Chloride [Moles/Vol] 104 mmol/L Normal 98-107 [facility] Comment on above: Performed By: #### L 500.4050, L100.0100 ####[facility] [address] [place], [address] CO2 [Moles/Vol] 29.0 mmol/L Normal 21.0-32.0 [facility] Comment on above: Performed By: #### L 500.4050, L100.0100 ####[facility] [address] [place], [address] Creatinine [Mass/Vol] 0.88 mg/dL Normal 0.70-1.30 [facility] Comment on above: Result Comment: The validity of the calculated GFR GFRAA in patients over70 years has not been determined. Clinical correlation isessential. Performed By: #### L 500.4050, L100.0100 ####[facility] [address] [place], [address] ECRCL 71.32 ml/min Normal [facility] Comment on above: Performed By: #### L 500.4050, L100.0100 ####[facility] [address] [place], [address] EST GFR - AA 115 mL/min Normal >60 [facility] Comment on above: Result Comment: Afri can Sudanese GFR Calc Performed By: #### L 500.4050, L100.0100 ####[facility] [address] [place], [address] GAP 8 Normal 5-15 [facility] Comment on above: Performed By: #### L 500.4050, L100.0100 ####[facility] [address] [place], [address] GFR/1.73 sq M.predicted among non-blacks MDRD (S/P/Bld) [Vol rate/Area] 95 mL/min/{1.73_m2} Normal >60 [facility] Comment on above: Result Comment: Non- GFR Calc Performed By: #### L 500.4050, L100.0100 ####[facility] [address] [place], [address] Globulin (S) [Mass/Vol] 5.2 g/dL High 2.2-4.2 [facility] Comment on above: Performed By: #### L 500.4050, L100.0100 ####[facility] [address] [place], [address] Glucose [Mass/Vol] 116 mg/dL High 74-106 [facility] Comment on above: Result Comment: Fast ing Glucose result from 100 to 125 mg/dLsuggests IMPAIRED HOMEOSTASIS per A.D.A. criteria. Performed By: #### L 500.4050, L100.0100 ####[facility] [address] [place], [address] Potassium [Moles/Vol] 3.4 mmol/L Low 3.5-5.1 [facility] Comment on above: Performed By: #### L 500.4050, L100.0100 ####[facility] [address] [place], [address] Sodium [Moles/Vol] 141 mmol/L Normal 136-145 [facility] Comment on above: Performed By: #### L 500.4050, L100.0100 ####[facility] [address] [place], [address] T PROT 7.6 g/dL Normal 6.4-8.2 [facility] Comment on above: Performed By: #### L 500.4050, L100.0100 ####[facility] [address] [place], [address] Urea nitrogen [Mass/Vol] 15 mg/dL Normal 7-18 [facility] Comment on above: Performed By: #### L 500.4050, L100.0100 ####[facility] [address] [place], [address] ALB Normal 3.2-5.0 [facility] Comment on above: Result Comment: DUPL ICATED ORDERS TO [place] PLAN Performed By: #### L 500.4050, L100.0100 ####[facility] [address] [place], [address] ALK P Normal 45-117 [facility] Comment on above: Result Comment: DUPL ICATED ORDERS TO TX PLAN Performed By: #### L 500.4050, L100.0100 ####[facility] [address] [place], [address] ALT Normal 16-61 [facility] Comment on above: Result Comment: DUPL ICATED ORDERS TO TX PLAN Performed By: #### L 500.4050, L100.0100 ####[facility] [address] [place], [address] AST Normal 15-37 [facility] Comment on above: Result Comment: DUPL ICATED ORDERS TO TX PLAN Performed By: #### L 500.4050, L100.0100 ####[facility] [address] [place], [address] BUN Normal 7-18 [facility] Comment on above: Result Comment: DUPL ICATED ORDERS TO TX PLAN Performed By: #### L 500.4050, L100.0100 ####[facility] [address] [place], [address] BUN/CRE Normal 10-20 [facility] Comment on above: Result Comment: DUPL ICATED ORDERS TO [place] PLAN Performed By: #### L 500.4050, L100.0100 ####[facility] [address] [place], [address] CA,Total Normal 8.5-10.1 [facility] Comment on above: Result Comment: DUPL ICATED ORDERS TO [place] PLAN Performed By: #### L 500.4050, L100.0100 ####[facility] [address] [place], [address] CL Normal 98-107 [facility] Comment on above: Result Comment: DUPL ICATED ORDERS TO [place] PLAN Performed By: #### L 500.4050, L100.0100 ####[facility] [address] [place], [address] CO2 Normal 21.0-32.0 [facility] Comment on above: Result Comment: DUPL ICATED ORDERS TO [place] PLAN Performed By: #### L 500.4050, L100.0100 ####[facility] [address] [place], [address] CREAT,SERUM Normal 0.70-1.30 [facility] Comment on above: Result Comment: DUPL ICATED ORDERS TO [place] PLAN Performed By: #### L 500.4050, L100.0100 ####[facility] [address] [place], [address] EST GFR Normal >60 [facility] Comment on above: Result Comment: DUPL ICATED ORDERS TO TX PLAN Performed By: #### L 500.4050, L100.0100 ####[facility] [address] [place], [address] EST GFR - AA Normal >60 [facility] Comment on above: Result Comment: DUPL ICATED ORDERS TO TX PLAN Performed By: #### L 500.4050, L100.0100 ####[facility] [address] [place], [address] GAP Normal 5-15 [facility] Comment on above: Result Comment: DUPL ICATED ORDERS TO TX PLAN Performed By: #### L 500.4050, L100.0100 ####[facility] [address] [place], [address] GLU Normal 74-106 [facility] Comment on above: Result Comment: DUPL ICATED ORDERS TO TX PLAN Performed By: #### L 500.4050, L100.0100 ####[facility] [address] [place], [address] Potassium Normal 3.5-5.1 [facility] Comment on above: Result Comment: DUPL ICATED ORDERS TO TX PLAN Performed By: #### L 500.4050, L100.0100 ####[facility] [address] [place], [address] T BILI Normal 0.20-1.00 [facility] Comment on above: Result Comment: DUPL ICATED ORDERS TO TX PLAN Performed By: #### L 500.4050, L100.0100 ####[facility] [address] [place], [address] T PROT Normal 6.4-8.2 [facility] Comment on above: Result Comment: DUPL ICATED ORDERS TO [place] PLAN Performed By: #### L 500.4050, L100.0100 ####[facility] [address] [place], [address] Comprehensive Metabolic Profil Normal 136-145 [facility] Comment on above: Result Comment: DUPL ICATED ORDERS TO [place] PLAN Performed By: #### L 500.4050, L100.0100 ####[facility] [address] [place], [address] Oncology Visit Reporton 06-22 Oncology Visit Report Normal [facility] CXR for Line Placementon CXR for Line Placement Normal [facility] Discharge Instructionon 06-21 Discharge Instruction Normal [facility] MR/POSTOP.ANEon 07-15-2024 MR/POSTOP.ANE Normal [facility] MR/CNICXMME4ow 07-15-2024 MR/POSTOPAN2 Normal [facility] Operative Reporton Operative Report Normal [facility] Radiation Oncology Visiton 0 07-14-2024 Radiation Oncology Visit Normal [facility] Surgery Visit Reporton 07-13 Surgery Visit Report Normal [facility] Oncology Visit Reporton 06-21 Oncology Visit Report Normal [facility] CBC W/Diff, Automatedon 06-20 Absolute Lymph 1.47 X10 3/uL Normal 0.83-4.51 [facility] Comment on above: Performed By: #### L 100.0100, L500.4050, L504.2610 ####[facility] [address] [place], [address] Absolute Neut 13.9 X10 3/uL High 2.0-7.7 [facility] Comment on above: Performed By: #### L 100.0100, L500.4050, L504.2610 ####[facility] [address] [place], [address] Basophils/100 WBC (Bld) 0.4 % Normal 0-1 [facility] Comment on above: Performed By: #### L 100.0100, L500.4050, L504.2610 ####[facility] [address] [place], [address] Eosinophils/100 WBC (Bld) 0.5 % Normal 0-5 [facility] Comment on above: Performed By: #### L 100.0100, L500.4050, L504.2610 ####[facility] [address] [place], [address] Erythrocyte distribution width (RBC) [Ratio] 13.1 % Normal 11.6-14.6 [facility] Comment on above: Performed By: #### L 100.0100, L500.4050, L504.2610 ####[facility] [address] [place], [address] Hematocrit (Bld) [Volume fraction] 37.4 % Low 40-54 [facility] Comment on above: Performed By: #### L 100.0100, L500.4050, L504.2610 ####[facility] [address] [place], [address] Hemoglobin (Bld) [Mass/Vol] 12.1 g/dL Low 13.0-16.5 [facility] Comment on above: Performed By: #### L 100.0100, L500.4050, L504.2610 ####[facility] [address] [place], [address] IG% 0.700 Normal 0.0-0.9 [facility] Comment on above: Result Comment: IG% - Immature Granulocytes (promyelocytes, myelocytes andmetamyelocytes) > 1% indicates that a LEFT SHIFT is Present. Performed By: #### L 100.0100, L500.4050, L504.2610 ####[facility] [address] [place], [address] Lymphocytes/100 WBC (Bld) 8.7 % Low 19-41 [facility] Comment on above: Performed By: #### L 100.0100, L500.4050, L504.2610 ####[facility] [address] [place], [address] MCH (RBC) [Entitic mass] 29.7 pg Normal 27.0-32.0 [facility] Comment on above: Performed By: #### L 100.0100, L500.4050, L504.2610 ####[facility] [address] [place], [address] MCHC (RBC) [Mass/Vol] 32.4 g/dL Normal 32-36 [facility] Comment on above: Performed By: #### L 100.0100, L500.4050, L504.2610 ####[facility] [address] [place], [address] MCV (RBC) [Entitic vol] 91.7 fL Normal 80-94 [facility] Comment on above: Performed By: #### L 100.0100, L500.4050, L504.2610 ####[facility] [address] [place], [address] Monocytes/100 WBC (Bld) 7.2 % Normal 0-10 [facility] Comment on above: Performed By: #### L 100.0100, L500.4050, L504.2610 ####[facility] [address] [place], [address] Neutrophils/100 WBC (Bld) 82.5 % High 47-70 [facility] Comment on above: Performed By: #### L 100.0100, L500.4050, L504.2610 ####[facility] [address] [place], [address] Nucleated RBC (Bld) [#/Vol] 0 10*3/uL Normal 0-5 [facility] Comment on above: Performed By: #### L 100.0100, L500.4050, L504.2610 ####[facility] [address] [place], [address] Platelet mean volume (Bld) [Entitic vol] 8.3 fL Normal 6.2-12.0 [facility] Comment on above: Performed By: #### L 100.0100, L500.4050, L504.2610 ####[facility] [address] [place], [address] Platelets (Bld) [#/Vol] 578 10*3/uL High 150-450 [facility] Comment on above: Performed By: #### L 100.0100, L500.4050, L504.2610 ####[facility] [address] [place], [address] RBC (Bld) [#/Vol] 4.08 10*6/uL Low 4.6-6.2 [facility] Comment on above: Performed By: #### L 100.0100, L500.4050, L504.2610 ####[facility] [address] [place], [address] RDW SD 44.1 fl High 35.1-43.9 [facility] Comment on above: Performed By: #### L 100.0100, L500.4050, L504.2610 ####[facility] [address] [place], [address] WBC (Bld) [#/Vol] 16.9 10*3/uL High 4.4-11.0 [facility] Comment on above: Performed By: #### L 100.0100, L500.4050, L504.2610 ####[facility] [address] [place], [address] Comprehensive Metabolic Prof ilon 07-06-2024 Albumin [Mass/Vol] 2.7 g/dL Low 3.2-5.0 [facility] Comment on above: Order Comment: 1 Performed By: #### L 100.0100, L500.4050, L504.2610 ####[facility] [address] [place], [address] Albumin/Globulin [Mass ratio] 0.5 {ratio} Low 0.9-2.4 [facility] Comment on above: Order Comment: 1 Performed By: #### L 100.0100, L500.4050, L504.2610 ####[facility] [address] [place], [address] ALK P 105 U/L Normal 45-117 [facility] Comment on above: Order Comment: 1 Performed By: #### L 100.0100, L500.4050, L504.2610 ####[facility] [address] [place], [address] ALT [Catalytic activity/Vol] 18 U/L Normal 16-61 [facility] Comment on above: Order Comment: 1 Performed By: #### L 100.0100, L500.4050, L504.2610 ####[facility] [address] [place], [address] AST [Catalytic activity/Vol] 12 U/L Low 15-37 [facility] Comment on above: Order Comment: 1 Performed By: #### L 100.0100, L500.4050, L504.2610 ####[facility] [address] [place], [address] Bilirubin [Mass/Vol] 0.40 mg/dL Normal 0.20-1.00 [facility] Comment on above: Order Comment: 1 Result Comment: For patients on eltrombopag therapy, use of Dimension Telferner TBIL is not recommended. Performed By: #### L 100.0100, L500.4050, L504.2610 ####[facility] [address] [place], [address] BUN/CRE 24.8 RATIO High 10-20 [facility] Comment on above: Order Comment: 1 Performed By: #### L 100.0100, L500.4050, L504.2610 ####[facility] [address] [place], [address] CA,Total 10.0 mg/dL Normal 8.5-10.1 [facility] Comment on above: Order Comment: 1 Performed By: #### L 100.0100, L500.4050, L504.2610 ####[facility] [address] [place], [address] Chloride [Moles/Vol] 102 mmol/L Normal 98-107 [facility] Comment on above: Order Comment: 1 Performed By: #### L 100.0100, L500.4050, L504.2610 ####[facility] [address] [place], [address] CO2 [Moles/Vol] 26.0 mmol/L Normal 21.0-32.0 [facility] Comment on above: Order Comment: 1 Performed By: #### L 100.0100, L500.4050, L504.2610 ####[facility] [address] [place], [address] Creatinine [Mass/Vol] 1.09 mg/dL Normal 0.70-1.30 [facility] Comment on above: Order Comment: 1 Result Comment: The validity of the calculated GFR GFRAA in patients over70 years has not been determined. Clinical correlation isessential. Performed By: #### L 100.0100, L500.4050, L504.2610 ####[facility] [address] [place], [address] EST GFR - AA 89 mL/min Normal >60 [facility] Comment on above: Order Comment: 1 Result Comment: Afri can Sudanese GFR Calc Performed By: #### L 100.0100, L500.4050, L504.2610 ####[facility] [address] [place], [address] GAP 8 Normal 5-15 [facility] Comment on above: Order Comment: 1 Performed By: #### L 100.0100, L500.4050, L504.2610 ####[facility] [address] [place], [address] GFR/1.73 sq M.predicted among non-blacks MDRD (S/P/Bld) [Vol rate/Area] 74 mL/min/{1.73_m2} Normal >60 [facility] Comment on above: Order Comment: 1 Result Comment: Non- GFR Calc Performed By: #### L 100.0100, L500.4050, L504.2610 ####[facility] [address] [place], [address] Globulin (S) [Mass/Vol] 5.9 g/dL High 2.2-4.2 [facility] Comment on above: Order Comment: 1 Performed By: #### L 100.0100, L500.4050, L504.2610 ####[facility] [address] [place], [address] Glucose [Mass/Vol] 89 mg/dL Normal 74-106 [facility] Comment on above: Order Comment: 1 Performed By: #### L 100.0100, L500.4050, L504.2610 ####[facility] [address] [place], [address] Potassium [Moles/Vol] 3.8 mmol/L Normal 3.5-5.1 [facility] Comment on above: Order Comment: 1 Performed By: #### L 100.0100, L500.4050, L504.2610 ####[facility] [address] [place], [address] Sodium [Moles/Vol] 136 mmol/L Normal 136-145 [facility] Comment on above: Order Comment: 1 Performed By: #### L 100.0100, L500.4050, L504.2610 ####[facility] [address] [place], [address] T PROT 8.6 g/dL High 6.4-8.2 [facility] Comment on above: Order Comment: 1 Performed By: #### L 100.0100, L500.4050, L504.2610 ####[facility] [address] [place], [address] Urea nitrogen [Mass/Vol] 27 mg/dL High 7-18 [facility] Comment on above: Order Comment: 1 Performed By: #### L 100.0100, L500.4050, L504.2610 ####[facility] [address] [place], [address] LDHon 07-06-2024 LDH 111 U/L Normal 87-241 [facility] Comment on above: Order Comment: 1 Performed By: #### L 100.0100, L500.4050, L504.2610 ####[facility] [address] [place], [address] Oncology Visit Reporton 06-20 Oncology Visit Report Normal [facility] PET/CT Tumor Base -Thigh Ini ton 07-06-2024 PET/CT Tumor Base -Thigh Init Normal [facility] CT Chest, Abd, Pel w/Contras ton 06-29-2024 CT Chest, Abd, Pel w/Contrast [facility] SURG PATH REQUESTon 06-25-20 Case Report [facility] Comment on above: Result Comment: Surg ical Pathology Report Case: [id number] Authorizing Provider: Hilary Lewis MD Collected: 06/25/2024 11:57 AM Ordering Location: [facility] Received: 06/25/2024 03:01 PM Pathologist: Brittny Arias MD Specimen: TISSUE, rectal cancer Performed By: #### S URGP #### [facility] (DEFAULT) [address] [place] [address] Clinical History Malignant neoplasm o f rectum. Medical History: Colon cancer. [facility] Comment on above: Performed By: #### S URGP #### [facility] (DEFAULT) [address] [place] [address] Gross Description [facility] Comment on above: Result Comment: The specimen is received in one properly labeled container with the patient's name and accession number. A. The specimen is designated rectal cancer and consists of four fragments of avery-pink soft tissue, from 0.1 up to 0.5 cm in greatest dimension. TE 1 Lab Use Only: JobID [id number] Grosser for this case was: Rubia Paris Performed By: #### S URGP #### [facility] (DEFAULT) [address] [place] [address] Microscopic Description A microscopic examination was performed. [facility] Comment on above: Performed By: #### S URGP #### [facility] (DEFAULT) [address] [place] [address] Pathologic Diagnosis [facility] Comment on above: Result Comment: A. R ectum, biopsy: Adenocarcinoma, superficial fragments - see note. Note: The prior biopsy report from an outside institution reported the mismatch repair proteins (MMR) as intact by IHC. Performed By: #### S URGP #### [facility] (DEFAULT) [address] [address] Professional Interpretation Performed at: Normal [facility] Comment on above: Result Comment: [facility] For Immediate Release to Patient's [facility]? Yes [address] [place], [place] [address] Performed By: #### S URGP #### [facility] (DEFAULT) [address] [address] Radiation Oncology Visiton 0 06-24-2024 Radiation Oncology Visit Normal [facility] Carcinoembryonic Antigenon 0 06-11-2024 CEA < 0.6 Normal 0.0-4.7 [facility] Comment on above: Result Comment: Nons mokers <3.9 Smokers <5.6[employer] Electrochemiluminescence Immunoassay(ECLIA)Values obtained with different assay methods or kitscannot be used interchangeably. Results cannot beinterpreted as absolute evidence of the presence orabsence of malignant disease.Performed at: [facility] [id number] Director: Javid Diehl PhD, Phone: [phone] Performed By: #### L 2339.7692 ####[facility] [address] [facility] [place], [place], [id number] Oncology Visit Reporton 05-21 Oncology Visit Report Normal [facility] CT ABDOMEN/PELVIS WITH CONTR Yeison 05-21-2024 CT [...] Polypoid lesion in the rectal stump. Normal [facility] DRAINAGE BY CATHETER PERITON EAL/RETROPERITONEAL PERCUTANEOUS W/ [...] medication(s), I spent 13 minutes of continuous spda-zo-cskp time with the patient. COMPARISON: No prior [...] Primary Service: Interventional Radiology (Panel 1) Normal [facility] BACTERIAL CULTURE AND DIRECT SMEAR, LESION, TISSUE, DEVICEon 05-09-2024 Bacteria identified Cx Nom (Unsp spec) NO GROWTH DAY 2 OF 2 [facility] Bacteria identified Cx Nom ( Unsp spec)on 05-09-2024 Microscopic observation Other stain Nom (Unsp spec) Neutrophils, Heavy [facility] Microscopic observation Other stain Nom (Unsp spec) Mononuclear cells present [facility] Microscopic observation Other stain Nom (Unsp spec) No organisms seen [facility] CBC,PLATELETSon 05-09-2024 Erythrocyte distribution width (RBC) [Ratio] 14.5 % High 10.9 - 14.3 % [facility] Hematocrit (Bld) [Volume fraction] 27.7 % Low 39.6 - 48.8 % [facility] Hemoglobin (Bld) [Mass/Vol] 8.8 g/dL Low 13.4 - 16.8 g/dL [facility] Interpretation and review of laboratory results Abnormal [facility] MCH (RBC) [Entitic mass] 29.2 pg 26.1 - 33.3 pg [facility] MCHC (RBC) [Mass/Vol] 31.8 g/dL Low 31.9 - 36.5 g/dL [facility] MCV (RBC) [Entitic vol] 92.0 fL 79.0 - 94.5 fL [facility] Platelet mean volume (Bld) [Entitic vol] 8.5 fL Low 8.7 - 12.3 fL [facility] Platelets (Bld) [#/Vol] 535 10*3/uL High 146 - 337 K/uL [facility] RBC (Bld) [#/Vol] 3.01 10*6/uL Low [facility] WBC (Bld) [#/Vol] 9.56 10*3/uL 3.73 - 10.10 K/uL [facility] Hematocrit (Bld) [Volume fraction] 27.7 % Low 39.6-48.8 [facility] Comment on above: Performed By: #### T YPEC #### [facility] (DEFAULT) [address] [place] [address] Hemoglobin (Bld) [Mass/Vol] 8.8 g/dL Low 13.4-16.8 [facility] Comment on above: Performed By: #### T YPEC #### [facility] (DEFAULT) [address] [place] [address] MCV (RBC) [Entitic vol] 92.0 fL Normal 79.0-94.5 [facility] Comment on above: Performed By: #### T YPEC #### [facility] (DEFAULT) [address] [place] [address] Mean Cell Hgb 29.2 pg Normal 26.1-33.3 [facility] Comment on above: Performed By: #### T YPEC #### [facility] (DEFAULT) [address] [place] [address] Mean Cell Hgb Conc 31.8 g/dL Low 31.9-36.5 [facility] Comment on above: Performed By: #### T YPEC #### [facility] (DEFAULT) [address] [place] [address] Platelet mean volume (Bld) [Entitic vol] 8.5 fL Low 8.7-12.3 [facility] Comment on above: Performed By: #### T YPEC #### [facility] (DEFAULT) [address] [place] [address] Platelets (Bld) [#/Vol] 535 10*3/uL High 146-337 [facility] Comment on above: Performed By: #### T YPEC #### [facility] (DEFAULT) [address] [place] [address] RBC (Bld) [#/Vol] 3.01 10*6/uL Low 4.38-5.83 [facility] Comment on above: Performed By: #### T YPEC #### [facility] (DEFAULT) [address] [place] [address] RBC Distribution 14.5 % High 10.9-14.3 [facility] Comment on above: Performed By: #### T YPEC #### [facility] (DEFAULT) [address] [place] [address] WBC (Bld) [#/Vol] 9.56 10*3/uL Normal 3.73-10.10 [facility] Comment on above: Performed By: #### T YPEC #### [facility] (DEFAULT) [address] [place] [address] CHEM 7 (LYTES,BUN,CREA,GLUC) on 05-09-2024 Anion gap [Moles/Vol] 13 mmol/L 7 - 17 mmol/L [facility] Chloride [Moles/Vol] 103 mmol/L 98 - 10 8 mmol/L [facility] CO2 [Moles/Vol] 27 mmol/L 21 - 31 mmol/L [facility] Creatinine [Mass/Vol] 0.72 mg/dL 0.70 - 1.30 mg/dL [facility] eGFR, CKD-EPI, Male - PINF [facility] Comment on above: Reported eGFR is bas ed on the CKD-EPI 2020 equation using creatinine, age, and sex. Glucose [Mass/Vol] 110 mg/dL High 70 - 99 mg/dL [facility] Interpretation and review of laboratory results Abnormal [facility] Osmolality Calc [Osmolality] 293 [facility] Potassium [Moles/Vol] 4.6 mmol/L 3.5 - 5.0 mmol/L [facility] Sodium [Moles/Vol] 138 mmol/L 135 - 145 mmol/L [facility] Urea nitrogen [Mass/Vol] 19 mg/dL 7 - 25 mg/dL [facility] Urea nitrogen/Creatinine [Mass ratio] 26 mg/mg [facility] Anion gap [Moles/Vol] 13 mmol/L Normal 7-17 [facility] Comment on above: Performed By: #### C HM7 ####[facility] (DEFAULT)[address] [place] [address] Chloride [Moles/Vol] 103 mmol/L Normal 98-108 [facility] Comment on above: Performed By: #### C HM7 ####[facility] (DEFAULT)[address] [facility] [place] [address] CO2 [Moles/Vol] 27 mmol/L Normal 21-31 [facility] Comment on above: Performed By: #### C HM7 ####[facility] (DEFAULT)[address] [facility] [place] [address] Creatinine [Mass/Vol] 0.72 mg/dL Normal 0.70-1.30 [facility] Comment on above: Performed By: #### C HM7 ####[facility] (DEFAULT)[address] [facility] [place] [address] eGFR, CKD-EPI, Male > Normal >=60 [facility] Comment on above: Result Comment: Repo rted eGFR is based on the CKD-EPI 2020 equation using creatinine, age, and sex. Performed By: #### C HM7 ####[facility] (DEFAULT)[address] [place] [address] Glucose [Mass/Vol] 110 mg/dL High 70-99 [facility] Comment on above: Performed By: #### C HM7 ####[facility] (DEFAULT)[address] [place] [address] Osmolality [Osmolality] 293 mosm/kg Normal 278-305 [facility] Comment on above: Performed By: #### C HM7 ####[facility] (DEFAULT)[address] [facility] [place] [address] Potassium [Moles/Vol] 4.6 mmol/L Normal 3.5-5.0 [facility] Comment on above: Performed By: #### C HM7 ####[facility] (DEFAULT)[address] [place] [address] Sodium [Moles/Vol] 138 mmol/L Normal 135-145 [facility] Comment on above: Performed By: #### C HM7 ####[facility] (DEFAULT)[address] [place] [address] Urea nitrogen [Mass/Vol] 19 mg/dL Normal 7-25 [facility] Comment on above: Performed By: #### C HM7 ####[facility] (DEFAULT)[address] [place] [address] Urea nitrogen/Creatinine [Mass ratio] 26 mg/mg Normal [facility] Comment on above: Performed By: #### C HM7 ####[facility] (DEFAULT)[address] [place] [address] CBC,PLATELETSon 05-08-2024 Erythrocyte distribution width (RBC) [Ratio] 14.4 % High 10.9 - 14.3 % [facility] Hematocrit (Bld) [Volume fraction] 27.5 % Low 39.6 - 48.8 % [facility] Hemoglobin (Bld) [Mass/Vol] 8.8 g/dL Low 13.4 - 16.8 g/dL [facility] Interpretation and review of laboratory results Abnormal [facility] MCH (RBC) [Entitic mass] 29.4 pg 26.1 - 33.3 pg [facility] MCHC (RBC) [Mass/Vol] 32.0 g/dL 31.9 - 36.5 g/dL [facility] MCV (RBC) [Entitic vol] 92.0 fL 79.0 - 94.5 fL [facility] Platelet mean volume (Bld) [Entitic vol] 8.8 fL 8.7 - 12.3 fL [facility] Platelets (Bld) [#/Vol] 520 10*3/uL High 146 - 337 K/uL [facility] RBC (Bld) [#/Vol] 2.99 10*6/uL Low [facility] WBC (Bld) [#/Vol] 12.74 10*3/uL High 3.73 - 10.10 K/uL [facility] Hematocrit (Bld) [Volume fraction] 27.5 % Low 39.6-48.8 [facility] Comment on above: Performed By: #### Claire HMRosemary, IPB, MGO #### [facility] (DEFAULT) [address] [address] Hemoglobin (Bld) [Mass/Vol] 8.8 g/dL Low 13.4-16.8 [facility] Comment on above: Performed By: #### Claire STAPLES, CASSIDYB, MGO #### [facility] (DEFAULT) [address] [address] MCV (RBC) [Entitic vol] 92.0 fL Normal 79.0-94.5 [facility] Comment on above: Performed By: #### Claire STAPLES, CASSIDYB, MGO #### [facility] (DEFAULT) [address] [place] [address] Mean Cell Hgb 29.4 pg Normal 26.1-33.3 [facility] Comment on above: Performed By: #### Claire STAPLES, IPB, MGO #### [facility] (DEFAULT) [address] [place] [address] Mean Cell Hgb Conc 32.0 g/dL Normal 31.9-36.5 [facility] Comment on above: Performed By: #### Claire HMRosemary, IPB, MGO #### [facility] (DEFAULT) [address] [address] Platelet mean volume (Bld) [Entitic vol] 8.8 fL Normal 8.7-12.3 [facility] Comment on above: Performed By: #### C HM7, IPB, MGO #### [facility] (DEFAULT) [address] [place] [address] Platelets (Bld) [#/Vol] 520 10*3/uL High 146-337 [facility] Comment on above: Performed By: #### Claire HM7, IPB, MGO #### [facility] (DEFAULT) [address] [place] [address] RBC (Bld) [#/Vol] 2.99 10*6/uL Low 4.38-5.83 [facility] Comment on above: Performed By: #### Claire HM7, IPB, MGO #### [facility] (DEFAULT) [address] [place] [address] RBC Distribution 14.4 % High 10.9-14.3 [facility] Comment on above: Performed By: #### Claire HM7, IPB, MGO #### [facility] (DEFAULT) [address] [place] [address] WBC (Bld) [#/Vol] 12.74 10*3/uL High 3.73-10.10 [facility] Comment on above: Performed By: #### Claire HM7, IPB, MGO #### [facility] (DEFAULT) [address] [place] [address] CHEM 7 (LYTES,BUN,CREA,GLUC) on 05-08-2024 Anion gap [Moles/Vol] 14 mmol/L 7 - 17 mmol/L [facility] Chloride [Moles/Vol] 101 mmol/L 98 - 10 8 mmol/L [facility] CO2 [Moles/Vol] 26 mmol/L 21 - 31 mmol/L [facility] Creatinine [Mass/Vol] 0.86 mg/dL 0.70 - 1.30 mg/dL [facility] eGFR, CKD-EPI, Male - PINF [facility] Comment on above: Reported eGFR is bas ed on the CKD-EPI 2020 equation using creatinine, age, and sex. Glucose [Mass/Vol] 151 mg/dL High 70 - 99 mg/dL [facility] Interpretation and review of laboratory results Abnormal [facility] Osmolality Calc [Osmolality] 292 [facility] Potassium [Moles/Vol] 4.0 mmol/L 3.5 - 5.0 mmol/L [facility] Sodium [Moles/Vol] 137 mmol/L 135 - 145 mmol/L [facility] Urea nitrogen [Mass/Vol] 18 mg/dL 7 - 25 mg/dL [facility] Urea nitrogen/Creatinine [Mass ratio] 21 mg/mg [facility] Anion gap [Moles/Vol] 14 mmol/L Normal 7-17 [facility] Comment on above: Performed By: #### Claire STAPLES, CASSIDYB, MGO #### [facility] (DEFAULT) [address] [place] [address] Chloride [Moles/Vol] 101 mmol/L Normal 98-108 [facility] Comment on above: Performed By: #### Claire HMRosemary, IPB, MGO #### [facility] (DEFAULT) [address] [place] [address] 09665 CO2 [Moles/Vol] 26 mmol/L Normal 21-31 [facility] Comment on above: Performed By: #### Claire HMRosemary, IPB, MGO #### [facility] (DEFAULT) [address] [place] [address]2822 Creatinine [Mass/Vol] 0.86 mg/dL Normal 0.70-1.30 [facility] Comment on above: Performed By: #### Claire HMRosemary, IPB, MGO #### [facility] (DEFAULT) [address] [place] [address] 60611 eGFR, CKD-EPI, Male > Normal >=60 [facility] Comment on above: Result Comment: Repo rted eGFR is based on the CKD-EPI 2020 equation using creatinine, age, and sex. Performed By: #### Claire STAPLES, IPB, MGO #### [facility] (DEFAULT) [address] [place] [address] 77587 Glucose [Mass/Vol] 151 mg/dL High 70-99 [facility] Comment on above: Performed By: #### C HM7, IPB, MGO #### [facility] (DEFAULT) [address] [place] [address] 72672 Osmolality [Osmolality] 292 mosm/kg Normal 278-305 [facility] Comment on above: Performed By: #### C HM7, IPB, MGO #### [facility] (DEFAULT) [address] [place] [address] 19693 Potassium [Moles/Vol] 4.0 mmol/L Normal 3.5-5.0 [facility] Comment on above: Performed By: #### Claire HM7, IPB, MGO #### [facility] (DEFAULT) [address] [place] [address] 33295 Sodium [Moles/Vol] 137 mmol/L Normal 135-145 [facility] Comment on above: Performed By: #### C HM7, IPB, MGO #### [facility] (DEFAULT) [address] [place] [address] 59189 Urea nitrogen [Mass/Vol] 18 mg/dL Normal 7-25 [facility] Comment on above: Performed By: #### Claire HM7, IPB, MGO #### [facility] (DEFAULT) [address] [place] [address] 45099 Urea nitrogen/Creatinine [Mass ratio] 21 mg/mg Normal [facility] Comment on above: Performed By: #### C HM7, IPB, MGO #### [facility] (DEFAULT) [address] [place] [address] 78288 BACTERIAL CULTURE AND DIRECT SMEAR, LESION, TISSUE, DEVICEon 05-07-2024 Bacteria identified Cx Nom (Unsp spec) NO GROWTH DAY 2 OF 2 Normal [facility] Comment on above: Performed By: #### G EN #### [facility] (DEFAULT) [address] [place] [address] Microscopic observation Gram stain Nom (Unsp spec) Normal [facility] Comment on above: Result Comment: Neut rophils, Heavy Mononuclear cells present No organisms seen Performed By: #### G EN #### [facility] (DEFAULT) [address] [place] [address] CBC,PLATELETSon 05-07-2024 Erythrocyte distribution width (RBC) [Ratio] 14.6 % High 10.9 - 14.3 % [facility] Hematocrit (Bld) [Volume fraction] 27.0 % Low 39.6 - 48.8 % [facility] Hemoglobin (Bld) [Mass/Vol] 8.4 g/dL Low 13.4 - 16.8 g/dL [facility] Interpretation and review of laboratory results Abnormal [facility] MCH (RBC) [Entitic mass] 29.1 pg 26.1 - 33.3 pg [facility] MCHC (RBC) [Mass/Vol] 31.1 g/dL Low 31.9 - 36.5 g/dL [facility] MCV (RBC) [Entitic vol] 93.4 fL 79.0 - 94.5 fL [facility] Platelet mean volume (Bld) [Entitic vol] 9.1 fL 8.7 - 12.3 fL [facility] Platelets (Bld) [#/Vol] 508 10*3/uL High 146 - 337 K/uL [facility] RBC (Bld) [#/Vol] 2.89 10*6/uL Low [facility] WBC (Bld) [#/Vol] 19.46 10*3/uL High 3.73 - 10.10 K/uL [facility] Hematocrit (Bld) [Volume fraction] 27.0 % Low 39.6-48.8 [facility] Comment on above: Performed By: #### C HM7, IPB, MGO #### [facility] (DEFAULT) [address] [place] [address] 37082 Hemoglobin (Bld) [Mass/Vol] 8.4 g/dL Low 13.4-16.8 [facility] Comment on above: Performed By: #### Claire HM7, IPB, MGO #### [facility] (DEFAULT) [address] [place] [address] 14195 MCV (RBC) [Entitic vol] 93.4 fL Normal 79.0-94.5 [facility] Comment on above: Performed By: #### Claire HM7, IPB, MGO #### [facility] (DEFAULT) [address] [place] [address] 49847 Mean Cell Hgb 29.1 pg Normal 26.1-33.3 [facility] Comment on above: Performed By: #### Claire HM7, IPB, MGO #### [facility] (DEFAULT) [address] [place] [address] 37588 Mean Cell Hgb Conc 31.1 g/dL Low 31.9-36.5 [facility] Comment on above: Performed By: #### Claire HM7, IPB, MGO #### [facility] (DEFAULT) [address] [place] [address] 61558 Platelet mean volume (Bld) [Entitic vol] 9.1 fL Normal 8.7-12.3 [facility] Comment on above: Performed By: #### Claire HM7, IPB, MGO #### [facility] (DEFAULT) [address] [place] [address] 4[address] Platelets (Bld) [#/Vol] 508 10*3/uL High 146-337 [facility] Comment on above: Performed By: #### Claire HM7, IPB, MGO #### [facility] (DEFAULT) [address] [place] [address] 11980 RBC (Bld) [#/Vol] 2.89 10*6/uL Low 4.38-5.83 [facility] Comment on above: Performed By: #### Claire HM7, IPB, MGO #### [facility] (DEFAULT) [address] [place] [address] RBC Distribution 14.6 % High 10.9-14.3 [facility] Comment on above: Performed By: #### C HM7, IPB, MGO #### [facility] (DEFAULT) [address] [place] [address] WBC (Bld) [#/Vol] 19.46 10*3/uL High 3.73-10.10 [facility] Comment on above: Performed By: #### C HM7, IPB, MGO #### [facility] (DEFAULT) [address] [place] [address] CHEM 7 (LYTES,BUN,CREA,GLUC) on 05-07-2024 Anion gap [Moles/Vol] 12 mmol/L 7 - 17 mmol/L [facility] Chloride [Moles/Vol] 101 mmol/L 98 - 10 8 mmol/L [facility] CO2 [Moles/Vol] 26 mmol/L 21 - 31 mmol/L [facility] Creatinine [Mass/Vol] 0.85 mg/dL 0.70 - 1.30 mg/dL [facility] eGFR, CKD-EPI, Male - PINF [facility] Comment on above: Reported eGFR is bas ed on the CKD-EPI 2020 equation using creatinine, age, and sex. Glucose [Mass/Vol] 91 mg/dL 70 - 99 mg/dL [facility] Interpretation and review of laboratory results Abnormal [facility] Osmolality Calc [Osmolality] 284 [facility] Potassium [Moles/Vol] 4.7 mmol/L 3.5 - 5.0 mmol/L [facility] Sodium [Moles/Vol] 134 mmol/L Low 135 - 145 mmol/L [facility] Urea nitrogen [Mass/Vol] 18 mg/dL 7 - 25 mg/dL [facility] Urea nitrogen/Creatinine [Mass ratio] 21 mg/mg [facility] Anion gap [Moles/Vol] 12 mmol/L Normal 7-17 [facility] Comment on above: Performed By: #### G EN #### [facility] (DEFAULT) [address] [place] [address] 23212 Chloride [Moles/Vol] 101 mmol/L Normal 98-108 [facility] Comment on above: Performed By: #### G EN #### [facility] (DEFAULT) [address] [place] [address] 53530 CO2 [Moles/Vol] 26 mmol/L Normal 21-31 [facility] Comment on above: Performed By: #### G EN #### [facility] (DEFAULT) [address] [place] [address] 41668 Creatinine [Mass/Vol] 0.85 mg/dL Normal 0.70-1.30 [facility] Comment on above: Performed By: #### G EN #### [facility] (DEFAULT) [address] [place] [address] 98310 eGFR, CKD-EPI, Male > Normal >=60 [facility] Comment on above: Result Comment: Repo rted eGFR is based on the CKD-EPI 2020 equation using creatinine, age, and sex. Performed By: #### G EN #### [facility] (DEFAULT) [address] [place] [address] 91813 Glucose [Mass/Vol] 91 mg/dL Normal 70-99 [facility] Comment on above: Performed By: #### G EN #### [facility] (DEFAULT) [address] [place] [address] 05701 Osmolality [Osmolality] 284 mosm/kg Normal 278-305 [facility] Comment on above: Performed By: #### G EN #### [facility] (DEFAULT) [address] [place] [address] 56410 Potassium [Moles/Vol] 4.7 mmol/L Normal 3.5-5.0 [facility] Comment on above: Performed By: #### G EN #### [facility] (DEFAULT) [address] [place] [address] 27913 Sodium [Moles/Vol] 134 mmol/L Low 135-145 [facility] Comment on above: Performed By: #### G EN #### [facility] (DEFAULT) [address] [place] [address] Urea nitrogen [Mass/Vol] 18 mg/dL Normal 7-25 [facility] Comment on above: Performed By: #### G EN #### [facility] (DEFAULT) [address] [place] [address] Urea nitrogen/Creatinine [Mass ratio] 21 mg/mg Normal [facility] Comment on above: Performed By: #### G EN #### [facility] (DEFAULT) [address] [place] [address] 88258 GENERAL PROCEDUREon 05-07-20 24 Catherine Delatorre II, [...] abscess. Samples obtained and sent to lab. [facility] No Panel Informationon 05-07 [facility] Radiology Study observation (narrative) [facility] CBC,PLATELETSon 05-06-2024 Erythrocyte distribution width (RBC) [Ratio] 14.6 % High 10.9 - 14.3 % [facility] Hematocrit (Bld) [Volume fraction] 28.5 % Low 39.6 - 48.8 % [facility] Hemoglobin (Bld) [Mass/Vol] 8.9 g/dL Low 13.4 - 16.8 g/dL [facility] Interpretation and review of laboratory results Abnormal [facility] MCH (RBC) [Entitic mass] 28.9 pg 26.1 - 33.3 pg [facility] MCHC (RBC) [Mass/Vol] 31.2 g/dL Low 31.9 - 36.5 g/dL [facility] MCV (RBC) [Entitic vol] 92.5 fL 79.0 - 94.5 fL [facility] Platelet mean volume (Bld) [Entitic vol] 8.4 fL Low 8.7 - 12.3 fL [facility] Platelets (Bld) [#/Vol] 477 10*3/uL High 146 - 337 K/uL [facility] RBC (Bld) [#/Vol] 3.08 10*6/uL Low [facility] WBC (Bld) [#/Vol] 19.40 10*3/uL High 3.73 - 10.10 K/uL [facility] Hematocrit (Bld) [Volume fraction] 28.5 % Low 39.6-48.8 [facility] Comment on above: Performed By: #### T YPEC #### [facility] (DEFAULT) [address] [place] [address] 76466 Hemoglobin (Bld) [Mass/Vol] 8.9 g/dL Low 13.4-16.8 [facility] Comment on above: Performed By: #### T YPEC #### [facility] (DEFAULT) [address] [address] MCV (RBC) [Entitic vol] 92.5 fL Normal 79.0-94.5 [facility] Comment on above: Performed By: #### T YPEC #### [facility] (DEFAULT) [address] [address] Mean Cell Hgb 28.9 pg Normal 26.1-33.3 [facility] Comment on above: Performed By: #### T YPEC #### [facility] (DEFAULT) [address] [address] Mean Cell Hgb Conc 31.2 g/dL Low 31.9-36.5 [facility] Comment on above: Performed By: #### T YPEC #### [facility] (DEFAULT) [address] [address] Platelet mean volume (Bld) [Entitic vol] 8.4 fL Low 8.7-12.3 [facility] Comment on above: Performed By: #### T YPEC #### [facility] (DEFAULT) [address] [address] Platelets (Bld) [#/Vol] 477 10*3/uL High 146-337 [facility] Comment on above: Performed By: #### T YPEC #### [facility] (DEFAULT) [address] [address] RBC (Bld) [#/Vol] 3.08 10*6/uL Low 4.38-5.83 [facility] Comment on above: Performed By: #### T YPEC #### [facility] (DEFAULT) [address] [address] RBC Distribution 14.6 % High 10.9-14.3 [facility] Comment on above: Performed By: #### T YPEC #### [facility] (DEFAULT) [address] [place] [address] WBC (Bld) [#/Vol] 19.40 10*3/uL High 3.73-10.10 [facility] Comment on above: Performed By: #### T YPEC #### [facility] (DEFAULT) [address] [place] [address] CHEM 7 (LYTES,BUN,CREA,GLUC) on 05-06-2024 Anion gap [Moles/Vol] 12 mmol/L 7 - 17 mmol/L [facility] Chloride [Moles/Vol] 102 mmol/L 98 - 10 8 mmol/L [facility] CO2 [Moles/Vol] 26 mmol/L 21 - 31 mmol/L [facility] Creatinine [Mass/Vol] 0.73 mg/dL 0.70 - 1.30 mg/dL [facility] eGFR, CKD-EPI, Male - PINF [facility] Comment on above: Reported eGFR is bas ed on the CKD-EPI 2020 equation using creatinine, age, and sex. Glucose [Mass/Vol] 98 mg/dL 70 - 99 mg/dL [facility] Osmolality Calc [Osmolality] 285 [facility] Potassium [Moles/Vol] 4.6 mmol/L 3.5 - 5.0 mmol/L [facility] Sodium [Moles/Vol] 135 mmol/L 135 - 145 mmol/L [facility] Urea nitrogen [Mass/Vol] 14 mg/dL 7 - 25 mg/dL [facility] Urea nitrogen/Creatinine [Mass ratio] 19 mg/mg [facility] Anion gap [Moles/Vol] 12 mmol/L Normal 7-17 [facility] Comment on above: Performed By: #### C ELEN STAPLES MGO #### [facility] (DEFAULT) [address] [place] [address] Chloride [Moles/Vol] 102 mmol/L Normal 98-108 [facility] Comment on above: Performed By: #### C HM7, IPB, MGO #### [facility] (DEFAULT) [address] [place] [address] 11862 CO2 [Moles/Vol] 26 mmol/L Normal 21-31 [facility] Comment on above: Performed By: #### Claire HMRosemary, IPB, MGO #### [facility] (DEFAULT) [address] [place] [address] 76050 Creatinine [Mass/Vol] 0.73 mg/dL Normal 0.70-1.30 [facility] Comment on above: Performed By: #### Claire STAPLES, IPB, MGO #### [facility] (DEFAULT) [address] [place] [address] 36277 eGFR, CKD-EPI, Male > Normal >=60 [facility] Comment on above: Result Comment: Repo rted eGFR is based on the CKD-EPI 2020 equation using creatinine, age, and sex. Performed By: #### CASSIDY GAMBINOB, MGO #### [facility] (DEFAULT) [address] [place] [address] 90577 Glucose [Mass/Vol] 98 mg/dL Normal 70-99 [facility] Comment on above: Performed By: #### Claire STAPLES, CASSIDYB, MGO #### [facility] (DEFAULT) [address] [place] [address] 53549 Osmolality [Osmolality] 285 mosm/kg Normal 278-305 [facility] Comment on above: Performed By: #### Claire STAPLES, CASSIDYB, MGO #### [facility] (DEFAULT) [address] [place] [address] 45056 Potassium [Moles/Vol] 4.6 mmol/L Normal 3.5-5.0 [facility] Comment on above: Performed By: #### Claire HM7, IPB, MGO #### [facility] (DEFAULT) [address] [place] [address] 57683 Sodium [Moles/Vol] 135 mmol/L Normal 135-145 [facility] Comment on above: Performed By: #### C HM7, IPB, MGO #### [facility] (DEFAULT) [address] [place] [address] Urea nitrogen [Mass/Vol] 14 mg/dL Normal 7-25 [facility] Comment on above: Performed By: #### C HM7, IPB, MGO #### [facility] (DEFAULT) [address] [place] [address] Urea nitrogen/Creatinine [Mass ratio] 19 mg/mg Normal [facility] Comment on above: Performed By: #### C HM7, IPB, MGO #### [facility] (DEFAULT) [address] [place] [address] 78721 BACTERIAL CULTURE AND DIRECT SMEAR, LESION, TISSUE, DEVICEOrdered By: Laith Hernandez on 05-05-2024 Bacteria identified Cx Nom (Unsp spec) Growth [facility] Bacteria identified Cx Nom (Unsp spec) ESCHERICHIA COLI Abnormal [facility] Comment on above: Susceptibilities not routinely performed. Bacteria identified Cx Nom (Unsp spec) STREPTOCOCCUS ANGINOSUS GROUP Abnormal [facility] Comment on above: Susceptibilities not routinely performed. Refer to specimen [id number] on 04/29/24 for requested susceptibilities. Bacteria identified Cx Nom ( Unsp spec)Ordered By: Laith Hernandez on 05-05-2024 Interpretation and review of laboratory results Abnormal [facility] Microscopic observation Other stain Nom (Unsp spec) Neutrophils, Heavy [facility] Microscopic observation Other stain Nom (Unsp spec) Mononuclear cells present [facility] Microscopic observation Other stain Nom (Unsp spec) Red Blood Cells Present [facility] Microscopic observation Other stain Nom (Unsp spec) Negative [facility] Microscopic observation Other stain Nom (Unsp spec) Positive [facility] CBC,PLATELETSon 05-05-2024 Erythrocyte distribution width (RBC) [Ratio] 14.4 % High 10.9 - 14.3 % [facility] Hematocrit (Bld) [Volume fraction] 27.5 % Low 39.6 - 48.8 % [facility] Hemoglobin (Bld) [Mass/Vol] 8.8 g/dL Low 13.4 - 16.8 g/dL [facility] Interpretation and review of laboratory results Abnormal [facility] MCH (RBC) [Entitic mass] 29.3 pg 26.1 - 33.3 pg [facility] MCHC (RBC) [Mass/Vol] 32.0 g/dL 31.9 - 36.5 g/dL [facility] MCV (RBC) [Entitic vol] 91.7 fL 79.0 - 94.5 fL [facility] Platelet mean volume (Bld) [Entitic vol] 8.5 fL Low 8.7 - 12.3 fL [facility] Platelets (Bld) [#/Vol] 488 10*3/uL High 146 - 337 K/uL [facility] RBC (Bld) [#/Vol] 3.00 10*6/uL Low [facility] WBC (Bld) [#/Vol] 17.33 10*3/uL High 3.73 - 10.10 K/uL [facility] Hematocrit (Bld) [Volume fraction] 27.5 % Low 39.6-48.8 [facility] Comment on above: Performed By: #### G EN #### [facility] (DEFAULT) [address] [address] Hemoglobin (Bld) [Mass/Vol] 8.8 g/dL Low 13.4-16.8 [facility] Comment on above: Performed By: #### G EN #### [facility] (DEFAULT) [address] [address] MCV (RBC) [Entitic vol] 91.7 fL Normal 79.0-94.5 [facility] Comment on above: Performed By: #### G EN #### [facility] (DEFAULT) [address] [address] Mean Cell Hgb 29.3 pg Normal 26.1-33.3 [facility] Comment on above: Performed By: #### G EN #### [facility] (DEFAULT) [address] [address] Mean Cell Hgb Conc 32.0 g/dL Normal 31.9-36.5 [facility] Comment on above: Performed By: #### G EN #### [facility] (DEFAULT) [address] [address] Platelet mean volume (Bld) [Entitic vol] 8.5 fL Low 8.7-12.3 [facility] Comment on above: Performed By: #### G EN #### [facility] (DEFAULT) [address] [address] Platelets (Bld) [#/Vol] 488 10*3/uL High 146-337 [facility] Comment on above: Performed By: #### G EN #### [facility] (DEFAULT) [address] [address] RBC (Bld) [#/Vol] 3.00 10*6/uL Low 4.38-5.83 [facility] Comment on above: Performed By: #### G EN #### [facility] (DEFAULT) [address] [address] RBC Distribution 14.4 % High 10.9-14.3 [facility] Comment on above: Performed By: #### G EN #### [facility] (DEFAULT) [address] [address] WBC (Bld) [#/Vol] 17.33 10*3/uL High 3.73-10.10 [facility] Comment on above: Performed By: #### G EN #### [facility] (DEFAULT) [address] [address] CHEM 7 (LYTES,BUN,CREA,GLUC) on 05-05-2024 Anion gap [Moles/Vol] 14 mmol/L 7 - 17 mmol/L [facility] Chloride [Moles/Vol] 102 mmol/L 98 - 10 8 mmol/L [facility] CO2 [Moles/Vol] 24 mmol/L 21 - 31 mmol/L [facility] Creatinine [Mass/Vol] 0.73 mg/dL 0.70 - 1.30 mg/dL [facility] eGFR, CKD-EPI, Male - PINF [facility] Comment on above: Reported eGFR is bas ed on the CKD-EPI 2020 equation using creatinine, age, and sex. Glucose [Mass/Vol] 104 mg/dL High 70 - 99 mg/dL [facility] Interpretation and review of laboratory results Abnormal [facility] Osmolality Calc [Osmolality] 285 [facility] Potassium [Moles/Vol] 4.5 mmol/L 3.5 - 5.0 mmol/L [facility] Sodium [Moles/Vol] 135 mmol/L 135 - 145 mmol/L [facility] Urea nitrogen [Mass/Vol] 13 mg/dL 7 - 25 mg/dL [facility] Urea nitrogen/Creatinine [Mass ratio] 18 mg/mg [facility] Anion gap [Moles/Vol] 14 mmol/L Normal 7-17 [facility] Comment on above: Performed By: #### Claire STAPLES, CASSIDYB, MGO #### [facility] (DEFAULT) [address] [place] [address] Chloride [Moles/Vol] 102 mmol/L Normal 98-108 [facility] Comment on above: Performed By: #### Claire STAPLES, IPB, MGO #### [facility] (DEFAULT) [address] [place] [address] CO2 [Moles/Vol] 24 mmol/L Normal 21-31 [facility] Comment on above: Performed By: #### Claire HMRosemary, IPB, MGO #### [facility] (DEFAULT) [address] [place] [address] Creatinine [Mass/Vol] 0.73 mg/dL Normal 0.70-1.30 [facility] Comment on above: Performed By: #### C HM7, IPB, MGO #### [facility] (DEFAULT) [address] [place] [address] eGFR, CKD-EPI, Male > Normal >=60 [facility] Comment on above: Result Comment: Repo rted eGFR is based on the CKD-EPI 2020 equation using creatinine, age, and sex. Performed By: #### C HM7, IPB, MGO #### [facility] (DEFAULT) [address] [place] [address] Glucose [Mass/Vol] 104 mg/dL High 70-99 [facility] Comment on above: Performed By: #### C HM7, IPB, MGO #### [facility] (DEFAULT) [address] [place] [address] Osmolality [Osmolality] 285 mosm/kg Normal 278-305 [facility] Comment on above: Performed By: #### C HM7, IPB, MGO #### [facility] (DEFAULT) [address] [place] [address] Potassium [Moles/Vol] 4.5 mmol/L Normal 3.5-5.0 [facility] Comment on above: Performed By: #### C HM7, IPB, MGO #### [facility] (DEFAULT) [address] [place] [address] Sodium [Moles/Vol] 135 mmol/L Normal 135-145 [facility] Comment on above: Performed By: #### C HM7, IPB, MGO #### [facility] (DEFAULT) [address] [place] [address] Urea nitrogen [Mass/Vol] 13 mg/dL Normal 7-25 [facility] Comment on above: Performed By: #### C HM7, IPB, MGO #### [facility] (DEFAULT) [address] [place] [address] Urea nitrogen/Creatinine [Mass ratio] 18 mg/mg Normal [facility] Comment on above: Performed By: #### C HM7, IPB, MGO #### [facility] (DEFAULT) [address] [place] [address] ABDOMEN/PELVIS WITH CONTR Yeison 05-05-2024 CT [...] improved from the hydroureteronephrosis seen previously. Normal [facility] CT Abdomen and Pelvis W cont rast [...] ureters, improved from the hydroureteronephrosis seen previously. [facility] Radiology Study observation (narrative) [facility] CT Abdomen and Pelvis W cont rast IVOrdered By: Filp León on 05-05-2024 [facility] Work Phone: MAGNESIUMon 05-05-2024 Magnesium [Mass/Vol] 2.2 mg/dL 1.6 - 2 .6 mg/dL [facility] Magnesium [Mass/Vol] 2.2 mg/dL Normal 1.6-2.6 [facility] Comment on above: Performed By: #### C HM7, IPB, MGO #### [facility] (DEFAULT) [address] [place] [address] No Panel Informationon 05-05 Interpretation and review of laboratory results Normal [facility] PHOSPHATE, INORGANICon 05-05 Phosphate [Mass/Vol] 2.9 mg/dL 2.2 - 4 .6 mg/dL [facility] Phosphorous 2.9 mg/dL Normal 2.2-4.6 [facility] Comment on above: Performed By: #### T YPEC #### [facility] (DEFAULT) [address] [place], [place] [id number] CBC,PLATELETSon 05-04-2024 Erythrocyte distribution width (RBC) [Ratio] 14.2 % 10.9 - 14.3 % [facility] Hematocrit (Bld) [Volume fraction] 28.4 % Low 39.6 - 48.8 % [facility] Hemoglobin (Bld) [Mass/Vol] 9.1 g/dL Low 13.4 - 16.8 g/dL [facility] Interpretation and review of laboratory results Abnormal [facility] MCH (RBC) [Entitic mass] 29.5 pg 26.1 - 33.3 pg [facility] MCHC (RBC) [Mass/Vol] 32.0 g/dL 31.9 - 36.5 g/dL [facility] MCV (RBC) [Entitic vol] 92.2 fL 79.0 - 94.5 fL [facility] Platelet mean volume (Bld) [Entitic vol] 8.7 fL 8.7 - 12.3 fL [facility] Platelets (Bld) [#/Vol] 487 10*3/uL High 146 - 337 K/uL [facility] RBC (Bld) [#/Vol] 3.08 10*6/uL Low [facility] WBC (Bld) [#/Vol] 13.02 10*3/uL High 3.73 - 10.10 K/uL [facility] Hematocrit (Bld) [Volume fraction] 28.4 % Low 39.6-48.8 [facility] Comment on above: Performed By: #### ELEN GAMBINO MGO #### [facility] (DEFAULT) [address] [address] Hemoglobin (Bld) [Mass/Vol] 9.1 g/dL Low 13.4-16.8 [facility] Comment on above: Performed By: #### ELEN GAMBINO MGAlan #### [facility] (DEFAULT) [address] [address] MCV (RBC) [Entitic vol] 92.2 fL Normal 79.0-94.5 [facility] Comment on above: Performed By: #### ELEN GAMBINO, MGAlan #### [facility] (DEFAULT) [address] [address] Mean Cell Hgb 29.5 pg Normal 26.1-33.3 [facility] Comment on above: Performed By: #### C HM7, IPB, MGO #### [facility] (DEFAULT) [address] [place] [address] Mean Cell Hgb Conc 32.0 g/dL Normal 31.9-36.5 [facility] Comment on above: Performed By: #### C HM7, IPB, MGO #### [facility] (DEFAULT) [address] [place] [address] Platelet mean volume (Bld) [Entitic vol] 8.7 fL Normal 8.7-12.3 [facility] Comment on above: Performed By: #### C HM7, IPB, MGO #### [facility] (DEFAULT) [address] [place] [address] Platelets (Bld) [#/Vol] 487 10*3/uL High 146-337 [facility] Comment on above: Performed By: #### Claire HM7, IPB, MGO #### [facility] (DEFAULT) [address] [place] [address] RBC (Bld) [#/Vol] 3.08 10*6/uL Low 4.38-5.83 [facility] Comment on above: Performed By: #### Claire HM7, IPB, MGO #### [facility] (DEFAULT) [address] [place] [address] RBC Distribution 14.2 % Normal 10.9-14.3 [facility] Comment on above: Performed By: #### C HM7, IPB, MGO #### [facility] (DEFAULT) [address] [place] [address] WBC (Bld) [#/Vol] 13.02 10*3/uL High 3.73-10.10 [facility] Comment on above: Performed By: #### C HM7, IPB, MGO #### [facility] (DEFAULT) [address] [place] [address] CHEM 7 (LYTES,BUN,CREA,GLUC) on 05-04-2024 Anion gap [Moles/Vol] 13 mmol/L 7 - 17 mmol/L [facility] Chloride [Moles/Vol] 103 mmol/L 98 - 10 8 mmol/L [facility] CO2 [Moles/Vol] 26 mmol/L 21 - 31 mmol/L [facility] Creatinine [Mass/Vol] 0.66 mg/dL Low 0.70 - 1.30 mg/dL [facility] eGFR, CKD-EPI, Male - PINF [facility] Comment on above: Reported eGFR is bas ed on the CKD-EPI 2020 equation using creatinine, age, and sex. Glucose [Mass/Vol] 100 mg/dL High 70 - 99 mg/dL [facility] Interpretation and review of laboratory results Abnormal [facility] Osmolality Calc [Osmolality] 287 [facility] Potassium [Moles/Vol] 4.5 mmol/L 3.5 - 5.0 mmol/L [facility] Sodium [Moles/Vol] 137 mmol/L 135 - 145 mmol/L [facility] Urea nitrogen [Mass/Vol] 9 mg/dL 7 - 25 mg/dL [facility] Urea nitrogen/Creatinine [Mass ratio] 14 mg/mg [facility] Anion gap [Moles/Vol] 13 mmol/L Normal 7-17 [facility] Comment on above: Performed By: #### G EN #### [facility] (DEFAULT) [address] [place] [address] Chloride [Moles/Vol] 103 mmol/L Normal 98-108 [facility] Comment on above: Performed By: #### G EN #### [facility] (DEFAULT) [address] [place] [address] CO2 [Moles/Vol] 26 mmol/L Normal 21-31 [facility] Comment on above: Performed By: #### G EN #### [facility] (DEFAULT) [address] [place] [address] Creatinine [Mass/Vol] 0.66 mg/dL Low 0.70-1.30 [facility] Comment on above: Performed By: #### G EN #### [facility] (DEFAULT) [address] [place] [address] eGFR, CKD-EPI, Male > Normal >=60 [facility] Comment on above: Result Comment: Repo rted eGFR is based on the CKD-EPI 2020 equation using creatinine, age, and sex. Performed By: #### G EN #### [facility] (DEFAULT) [address] [place] [address] Glucose [Mass/Vol] 100 mg/dL High 70-99 [facility] Comment on above: Performed By: #### G EN #### [facility] (DEFAULT) [address] [place] [address] Osmolality [Osmolality] 287 mosm/kg Normal 278-305 [facility] Comment on above: Performed By: #### G EN #### [facility] (DEFAULT) [address] [place] [address] Potassium [Moles/Vol] 4.5 mmol/L Normal 3.5-5.0 [facility] Comment on above: Performed By: #### G EN #### [facility] (DEFAULT) [address] [place] [address] Sodium [Moles/Vol] 137 mmol/L Normal 135-145 [facility] Comment on above: Performed By: #### G EN #### [facility] (DEFAULT) [address] [place] [address] Urea nitrogen [Mass/Vol] 9 mg/dL Normal 7-25 [facility] Comment on above: Performed By: #### G EN #### [facility] (DEFAULT) [address] [place] [address] Urea nitrogen/Creatinine [Mass ratio] 14 mg/mg Normal [facility] Comment on above: Performed By: #### G EN #### [facility] (DEFAULT) [address] [place] [address] MAGNESIUMon 05-04-2024 Magnesium [Mass/Vol] 2.1 mg/dL 1.6 - 2 .6 mg/dL [facility] Magnesium [Mass/Vol] 2.1 mg/dL Normal 1.6-2.6 [facility] Comment on above: Performed By: #### U [id number] #### [facility] (DEFAULT) [address] [place] [address] No Panel Informationon 05-04 Interpretation and review of laboratory results Normal [facility] PHOSPHATE, INORGANICon 05-04 Phosphate [Mass/Vol] 2.5 mg/dL 2.2 - 4 .6 mg/dL [facility] Phosphorous 2.5 mg/dL Normal 2.2-4.6 [facility] Comment on above: Performed By: #### U [id number] #### [facility] (DEFAULT) [address] [place] [address] CBC,PLATELETSon 05-03-2024 Erythrocyte distribution width (RBC) [Ratio] 13.8 % 10.9 - 14.3 % [facility] Hematocrit (Bld) [Volume fraction] 28.3 % Low 39.6 - 48.8 % [facility] Hemoglobin (Bld) [Mass/Vol] 8.9 g/dL Low 13.4 - 16.8 g/dL [facility] Interpretation and review of laboratory results Abnormal [facility] MCH (RBC) [Entitic mass] 28.6 pg 26.1 - 33.3 pg [facility] MCHC (RBC) [Mass/Vol] 31.4 g/dL Low 31.9 - 36.5 g/dL [facility] MCV (RBC) [Entitic vol] 91.0 fL 79.0 - 94.5 fL [facility] Platelet mean volume (Bld) [Entitic vol] 8.8 fL 8.7 - 12.3 fL [facility] Platelets (Bld) [#/Vol] 448 10*3/uL High 146 - 337 K/uL [facility] RBC (Bld) [#/Vol] 3.11 10*6/uL Low [facility] WBC (Bld) [#/Vol] 16.82 10*3/uL High 3.73 - 10.10 K/uL [facility] Hematocrit (Bld) [Volume fraction] 28.3 % Low 39.6-48.8 [facility] Comment on above: Performed By: #### H EMOGC ####[facility] (DEFAULT)[address] [place] [address] Hemoglobin (Bld) [Mass/Vol] 8.9 g/dL Low 13.4-16.8 [facility] Comment on above: Performed By: #### H EMOGC ####[facility] (DEFAULT)[address] [place] [address] MCV (RBC) [Entitic vol] 91.0 fL Normal 79.0-94.5 [facility] Comment on above: Performed By: #### H EMOGC ####[facility] (DEFAULT)[address] [place] [address] Mean Cell Hgb 28.6 pg Normal 26.1-33.3 [facility] Comment on above: Performed By: #### H EMOGC ####[facility] (DEFAULT)[address] [place] [address] Mean Cell Hgb Conc 31.4 g/dL Low 31.9-36.5 [facility] Comment on above: Performed By: #### H EMOGC ####[facility] (DEFAULT)[address] [place] [address] Platelet mean volume (Bld) [Entitic vol] 8.8 fL Normal 8.7-12.3 [facility] Comment on above: Performed By: #### H EMOGC ####[facility] (DEFAULT)[address] [place] [address] Platelets (Bld) [#/Vol] 448 10*3/uL High 146-337 [facility] Comment on above: Performed By: #### H MUSCOGEE ####[facility] (DEFAULT)[address] [place] [address] RBC (Bld) [#/Vol] 3.11 10*6/uL Low 4.38-5.83 [facility] Comment on above: Performed By: #### H MUSCOGEE ####[facility] (DEFAULT)[address] [facility] [place] [address] RBC Distribution 13.8 % Normal 10.9-14.3 [facility] Comment on above: Performed By: #### H MUSCOGEE ####[facility] (DEFAULT)[address] [place] [address] WBC (Bld) [#/Vol] 16.82 10*3/uL High 3.73-10.10 [facility] Comment on above: Performed By: #### H MUSCOGEE ####[facility] (DEFAULT)[address] [place] [address] CHEM 7 (LYTES,BUN,CREA,GLUC) on 05-03-2024 Anion gap [Moles/Vol] 12 mmol/L 7 - 17 mmol/L [facility] Chloride [Moles/Vol] 103 mmol/L 98 - 10 8 mmol/L [facility] CO2 [Moles/Vol] 26 mmol/L 21 - 31 mmol/L [facility] Creatinine [Mass/Vol] 0.68 mg/dL Low 0.70 - 1.30 mg/dL [facility] eGFR, CKD-EPI, Male - PINF [facility] Comment on above: Reported eGFR is bas ed on the CKD-EPI 2020 equation using creatinine, age, and sex. Glucose [Mass/Vol] 102 mg/dL High 70 - 99 mg/dL [facility] Interpretation and review of laboratory results Abnormal [facility] Osmolality Calc [Osmolality] 286 [facility] Potassium [Moles/Vol] 4.2 mmol/L 3.5 - 5.0 mmol/L [facility] Sodium [Moles/Vol] 137 mmol/L 135 - 145 mmol/L [facility] Urea nitrogen [Mass/Vol] 7 mg/dL 7 - 25 mg/dL [facility] Urea nitrogen/Creatinine [Mass ratio] 10 mg/mg [facility] Anion gap [Moles/Vol] 12 mmol/L Normal 7-17 [facility] Comment on above: Performed By: #### ELEN GAMBINO, MGO #### [facility] (DEFAULT) [address] [place] [address] Chloride [Moles/Vol] 103 mmol/L Normal 98-108 [facility] Comment on above: Performed By: #### Claire STAPLES, CASSIDYB, MGO #### [facility] (DEFAULT) [address] [place] [address] CO2 [Moles/Vol] 26 mmol/L Normal 21-31 [facility] Comment on above: Performed By: #### Claire STAPLES, IPB, MGO #### [facility] (DEFAULT) [address] [place] [address] Creatinine [Mass/Vol] 0.68 mg/dL Low 0.70-1.30 [facility] Comment on above: Performed By: #### Claire STAPLES, IPB, MGO #### [facility] (DEFAULT) [address] [place] [address] eGFR, CKD-EPI, Male > Normal >=60 [facility] Comment on above: Result Comment: Repo rted eGFR is based on the CKD-EPI 2020 equation using creatinine, age, and sex. Performed By: #### Claire STAPLES, IPB, MGO #### [facility] (DEFAULT) [address] [place] [address] Glucose [Mass/Vol] 102 mg/dL High 70-99 [facility] Comment on above: Performed By: #### Claire HM7, IPB, MGO #### [facility] (DEFAULT) [address] [place] [address] Osmolality [Osmolality] 286 mosm/kg Normal 278-305 [facility] Comment on above: Performed By: #### Claire HM7, IPB, MGO #### [facility] (DEFAULT) [address] [place] [address] Potassium [Moles/Vol] 4.2 mmol/L Normal 3.5-5.0 [facility] Comment on above: Performed By: #### Claire HM7, IPB, MGO #### [facility] (DEFAULT) [address] [place] [address] Sodium [Moles/Vol] 137 mmol/L Normal 135-145 [facility] Comment on above: Performed By: #### Claire HM7, IPB, MGO #### [facility] (DEFAULT) [address] [place] [address] Urea nitrogen [Mass/Vol] 7 mg/dL Normal 7-25 [facility] Comment on above: Performed By: #### Claire HM7, IPB, MGO #### [facility] (DEFAULT) [address] [place] [address]201 Urea nitrogen/Creatinine [Mass ratio] 10 mg/mg Normal [facility] Comment on above: Performed By: #### Claire HM7, IPB, MGO #### [facility] (DEFAULT) [address] [place] [address] MAGNESIUMon 05-03-2024 Magnesium [Mass/Vol] 2.0 mg/dL 1.6 - 2 .6 mg/dL [facility] Magnesium [Mass/Vol] 2.0 mg/dL Normal 1.6-2.6 [facility] Comment on above: Performed By: #### Claire HM7, IPB, MGO #### [facility] (DEFAULT) [address] [place] [address] No Panel Informationon 05-03 Interpretation and review of laboratory results Normal [facility] PHOSPHATE, INORGANICon 05-03 Phosphate [Mass/Vol] 2.9 mg/dL 2.2 - 4 .6 mg/dL [facility] Phosphorous 2.9 mg/dL Normal 2.2-4.6 [facility] Comment on above: Performed By: #### C HM7, IPB, MGO #### [facility] (DEFAULT) [address] [place] [address] CBC,PLATELETSon 05-02-2024 Erythrocyte distribution width (RBC) [Ratio] 13.5 % 10.9 - 14.3 % [facility] Hematocrit (Bld) [Volume fraction] 27.6 % Low 39.6 - 48.8 % [facility] Hemoglobin (Bld) [Mass/Vol] 8.9 g/dL Low 13.4 - 16.8 g/dL [facility] Interpretation and review of laboratory results Abnormal [facility] MCH (RBC) [Entitic mass] 29.2 pg 26.1 - 33.3 pg [facility] MCHC (RBC) [Mass/Vol] 32.2 g/dL 31.9 - 36.5 g/dL [facility] MCV (RBC) [Entitic vol] 90.5 fL 79.0 - 94.5 fL [facility] Platelet mean volume (Bld) [Entitic vol] 8.8 fL 8.7 - 12.3 fL [facility] Platelets (Bld) [#/Vol] 393 10*3/uL High 146 - 337 K/uL [facility] RBC (Bld) [#/Vol] 3.05 10*6/uL Low [facility] WBC (Bld) [#/Vol] 14.26 10*3/uL High 3.73 - 10.10 K/uL [facility] Hematocrit (Bld) [Volume fraction] 27.6 % Low 39.6-48.8 [facility] Comment on above: Performed By: #### S URGP #### [facility] (DEFAULT) [address] [address] Hemoglobin (Bld) [Mass/Vol] 8.9 g/dL Low 13.4-16.8 [facility] Comment on above: Performed By: #### S URGP #### [facility] (DEFAULT) [address] [address] MCV (RBC) [Entitic vol] 90.5 fL Normal 79.0-94.5 [facility] Comment on above: Performed By: #### S URGP #### [facility] (DEFAULT) [address] [address] Mean Cell Hgb 29.2 pg Normal 26.1-33.3 [facility] Comment on above: Performed By: #### S URGP #### [facility] (DEFAULT) [address] [address] Mean Cell Hgb Conc 32.2 g/dL Normal 31.9-36.5 [facility] Comment on above: Performed By: #### S URGP #### [facility] (DEFAULT) [address] [address] Platelet mean volume (Bld) [Entitic vol] 8.8 fL Normal 8.7-12.3 [facility] Comment on above: Performed By: #### S URGP #### [facility] (DEFAULT) [address] [address] Platelets (Bld) [#/Vol] 393 10*3/uL High 146-337 [facility] Comment on above: Performed By: #### S URGP #### [facility] (DEFAULT) [address] [address] RBC (Bld) [#/Vol] 3.05 10*6/uL Low 4.38-5.83 [facility] Comment on above: Performed By: #### S URGP #### [facility] (DEFAULT) [address] [place] [address] RBC Distribution 13.5 % Normal 10.9-14.3 [facility] Comment on above: Performed By: #### S URGP #### [facility] (DEFAULT) [address] [place] [address] WBC (Bld) [#/Vol] 14.26 10*3/uL High 3.73-10.10 [facility] Comment on above: Performed By: #### S URGP #### [facility] (DEFAULT) [address] [place] [address] CHEM 7 (LYTES,BUN,CREA,GLUC) on 05-02-2024 Anion gap [Moles/Vol] 12 mmol/L 7 - 17 mmol/L [facility] Chloride [Moles/Vol] 104 mmol/L 98 - 10 8 mmol/L [facility] CO2 [Moles/Vol] 28 mmol/L 21 - 31 mmol/L [facility] Creatinine [Mass/Vol] 0.69 mg/dL Low 0.70 - 1.30 mg/dL [facility] eGFR, CKD-EPI, Male - PINF [facility] Comment on above: Reported eGFR is bas ed on the CKD-EPI 2020 equation using creatinine, age, and sex. Glucose [Mass/Vol] 101 mg/dL High 70 - 99 mg/dL [facility] Interpretation and review of laboratory results Abnormal [facility] Osmolality Calc [Osmolality] 291 [facility] Potassium [Moles/Vol] 4.1 mmol/L 3.5 - 5.0 mmol/L [facility] Sodium [Moles/Vol] 140 mmol/L 135 - 145 mmol/L [facility] Urea nitrogen [Mass/Vol] 6 mg/dL Low 7 - 25 mg/dL [facility] Urea nitrogen/Creatinine [Mass ratio] 9 mg/mg [facility] Anion gap [Moles/Vol] 12 mmol/L Normal 7-17 [facility] Comment on above: Performed By: #### G EN #### [facility] (DEFAULT) [address] [place] [address] Chloride [Moles/Vol] 104 mmol/L Normal 98-108 [facility] Comment on above: Performed By: #### G EN #### [facility] (DEFAULT) [address] [place] [address]39 CO2 [Moles/Vol] 28 mmol/L Normal 21-31 [facility] Comment on above: Performed By: #### G EN #### [facility] (DEFAULT) [address] [place] [address] Creatinine [Mass/Vol] 0.69 mg/dL Low 0.70-1.30 [facility] Comment on above: Performed By: #### G EN #### [facility] (DEFAULT) [address] [place] [address] 45750 eGFR, CKD-EPI, Male > Normal >=60 [facility] Comment on above: Result Comment: Repo rted eGFR is based on the CKD-EPI 2020 equation using creatinine, age, and sex. Performed By: #### G EN #### [facility] (DEFAULT) [address] [place] [address] Glucose [Mass/Vol] 101 mg/dL High 70-99 [facility] Comment on above: Performed By: #### G EN #### [facility] (DEFAULT) [address] [place] [address] Osmolality [Osmolality] 291 mosm/kg Normal 278-305 [facility] Comment on above: Performed By: #### G EN #### [facility] (DEFAULT) [address] [place] [address] Potassium [Moles/Vol] 4.1 mmol/L Normal 3.5-5.0 [facility] Comment on above: Performed By: #### G EN #### [facility] (DEFAULT) [address] [place] [address] Sodium [Moles/Vol] 140 mmol/L Normal 135-145 [facility] Comment on above: Performed By: #### G EN #### [facility] (DEFAULT) [address] [place] [address] Urea nitrogen [Mass/Vol] 6 mg/dL Low 7-25 [facility] Comment on above: Performed By: #### G EN #### [facility] (DEFAULT) [address] [place] [address] Urea nitrogen/Creatinine [Mass ratio] 9 mg/mg Normal [facility] Comment on above: Performed By: #### G EN #### [facility] (DEFAULT) [address] [place] [address] Anion gap [Moles/Vol] 12 mmol/L 7 - 17 mmol/L [facility] Chloride [Moles/Vol] 103 mmol/L 98 - 10 8 mmol/L [facility] CO2 [Moles/Vol] 28 mmol/L 21 - 31 mmol/L [facility] Creatinine [Mass/Vol] 0.75 mg/dL 0.70 - 1.30 mg/dL [facility] eGFR, CKD-EPI, Male - PINF [facility] Comment on above: Reported eGFR is bas ed on the CKD-EPI 2020 equation using creatinine, age, and sex. Glucose [Mass/Vol] 107 mg/dL High 70 - 99 mg/dL [facility] Interpretation and review of laboratory results Abnormal [facility] Osmolality Calc [Osmolality] 290 [facility] Potassium [Moles/Vol] 4.0 mmol/L 3.5 - 5.0 mmol/L [facility] Sodium [Moles/Vol] 139 mmol/L 135 - 145 mmol/L [facility] Urea nitrogen [Mass/Vol] 8 mg/dL 7 - 25 mg/dL [facility] Urea nitrogen/Creatinine [Mass ratio] 11 mg/mg [facility] Anion gap [Moles/Vol] 12 mmol/L Normal 7-17 [facility] Comment on above: Performed By: #### S URGP #### [facility] (DEFAULT) [address] [place] [address] Chloride [Moles/Vol] 103 mmol/L Normal 98-108 [facility] Comment on above: Performed By: #### S URGP #### [facility] (DEFAULT) [address] [place] [address]855 CO2 [Moles/Vol] 28 mmol/L Normal 21-31 [facility] Comment on above: Performed By: #### S URGP #### [facility] (DEFAULT) [address] [place] [address] 21551 Creatinine [Mass/Vol] 0.75 mg/dL Normal 0.70-1.30 [facility] Comment on above: Performed By: #### S URGP #### [facility] (DEFAULT) [address] [place] [address]37 eGFR, CKD-EPI, Male > Normal >=60 [facility] Comment on above: Result Comment: Repo rted eGFR is based on the CKD-EPI 2020 equation using creatinine, age, and sex. Performed By: #### S URGP #### [facility] (DEFAULT) [address] [place] [address] 96932 Glucose [Mass/Vol] 107 mg/dL High 70-99 [facility] Comment on above: Performed By: #### S URGP #### [facility] (DEFAULT) [address] [place] [address] 38188 Osmolality [Osmolality] 290 mosm/kg Normal 278-305 [facility] Comment on above: Performed By: #### S URGP #### [facility] (DEFAULT) [address] [place] [address] 00051 Potassium [Moles/Vol] 4.0 mmol/L Normal 3.5-5.0 [facility] Comment on above: Performed By: #### S URGP #### [facility] (DEFAULT) [address] [place] [address] Sodium [Moles/Vol] 139 mmol/L Normal 135-145 [facility] Comment on above: Performed By: #### S URGP #### [facility] (DEFAULT) [address] [place] [address] Urea nitrogen [Mass/Vol] 8 mg/dL Normal 7-25 [facility] Comment on above: Performed By: #### S URGP #### [facility] (DEFAULT) [address] [place] [address] 10060 Urea nitrogen/Creatinine [Mass ratio] 11 mg/mg Normal [facility] Comment on above: Performed By: #### S URGP #### [facility] (DEFAULT) [address] [place] [address] 88232 MAGNESIUMon 05-02-2024 Magnesium [Mass/Vol] 1.8 mg/dL 1.6 - 2 .6 mg/dL [facility] Magnesium [Mass/Vol] 1.8 mg/dL Normal 1.6-2.6 [facility] Comment on above: Performed By: #### S URGP #### [facility] (DEFAULT) [address] [place] [address] 42193 No Panel Informationon 05-02 Interpretation and review of laboratory results Normal [facility] PHOSPHATE, INORGANICon 05-02 Phosphate [Mass/Vol] 2.5 mg/dL 2.2 - 4 .6 mg/dL [facility] Phosphorous 2.5 mg/dL Normal 2.2-4.6 [facility] Comment on above: Performed By: #### S URGP #### [facility] (DEFAULT) [address] [place] [address] 53061 CBC,PLATELETSon 05-01-2024 Erythrocyte distribution width (RBC) [Ratio] 13.7 % 10.9 - 14.3 % [facility] Hematocrit (Bld) [Volume fraction] 28.3 % Low 39.6 - 48.8 % [facility] Hemoglobin (Bld) [Mass/Vol] 9.1 g/dL Low 13.4 - 16.8 g/dL [facility] Interpretation and review of laboratory results Abnormal [facility] MCH (RBC) [Entitic mass] 29.2 pg 26.1 - 33.3 pg [facility] MCHC (RBC) [Mass/Vol] 32.2 g/dL 31.9 - 36.5 g/dL [facility] MCV (RBC) [Entitic vol] 90.7 fL 79.0 - 94.5 fL [facility] Platelet mean volume (Bld) [Entitic vol] 8.7 fL 8.7 - 12.3 fL [facility] Platelets (Bld) [#/Vol] 366 10*3/uL High 146 - 337 K/uL [facility] RBC (Bld) [#/Vol] 3.12 10*6/uL Low [facility] WBC (Bld) [#/Vol] 15.88 10*3/uL High 3.73 - 10.10 K/uL [facility] Hematocrit (Bld) [Volume fraction] 28.3 % Low 39.6-48.8 [facility] Comment on above: Performed By: #### U [id number] #### [facility] (DEFAULT) [address] [address] Hemoglobin (Bld) [Mass/Vol] 9.1 g/dL Low 13.4-16.8 [facility] Comment on above: Performed By: #### U [id number] #### [facility] (DEFAULT) [address] [address] MCV (RBC) [Entitic vol] 90.7 fL Normal 79.0-94.5 [facility] Comment on above: Performed By: #### U [id number] #### [facility] (DEFAULT) [address] [place] [address] 13604 Mean Cell Hgb 29.2 pg Normal 26.1-33.3 [facility] Comment on above: Performed By: #### U [id number] #### [facility] (DEFAULT) [address] [place] [address] 19990 Mean Cell Hgb Conc 32.2 g/dL Normal 31.9-36.5 [facility] Comment on above: Performed By: #### U [id number] #### [facility] (DEFAULT) [address] [place] [address] 60447 Platelet mean volume (Bld) [Entitic vol] 8.7 fL Normal 8.7-12.3 [facility] Comment on above: Performed By: #### U [id number] #### [facility] (DEFAULT) [address] [place] [address] 60177 Platelets (Bld) [#/Vol] 366 10*3/uL High 146-337 [facility] Comment on above: Performed By: #### U [id number] #### [facility] (DEFAULT) [address] [place] [address] 51414 RBC (Bld) [#/Vol] 3.12 10*6/uL Low 4.38-5.83 [facility] Comment on above: Performed By: #### U [id number] #### [facility] (DEFAULT) [address] [place] [address] 28853 RBC Distribution 13.7 % Normal 10.9-14.3 [facility] Comment on above: Performed By: #### U [id number] #### [facility] (DEFAULT) [address] [place] [address] 44614 WBC (Bld) [#/Vol] 15.88 10*3/uL High 3.73-10.10 [facility] Comment on above: Performed By: #### U [id number] #### [facility] (DEFAULT) [address] [place] [address] 45829 CHEM 7 (LYTES,BUN,CREA,GLUC) on 05-01-2024 Anion gap [Moles/Vol] 12 mmol/L 7 - 17 mmol/L [facility] Chloride [Moles/Vol] 102 mmol/L 98 - 10 8 mmol/L [facility] CO2 [Moles/Vol] 28 mmol/L 21 - 31 mmol/L [facility] Creatinine [Mass/Vol] 0.78 mg/dL 0.70 - 1.30 mg/dL [facility] eGFR, CKD-EPI, Male - PINF [facility] Comment on above: Reported eGFR is bas ed on the CKD-EPI 2020 equation using creatinine, age, and sex. Glucose [Mass/Vol] 109 mg/dL High 70 - 99 mg/dL [facility] Interpretation and review of laboratory results Abnormal [facility] Osmolality Calc [Osmolality] 288 [facility] Potassium [Moles/Vol] 4.0 mmol/L 3.5 - 5.0 mmol/L [facility] Sodium [Moles/Vol] 138 mmol/L 135 - 145 mmol/L [facility] Urea nitrogen [Mass/Vol] 8 mg/dL 7 - 25 mg/dL [facility] Urea nitrogen/Creatinine [Mass ratio] 10 mg/mg [facility] Anion gap [Moles/Vol] 12 mmol/L Normal 7-17 [facility] Comment on above: Performed By: #### ELEN GAMBINO MGAlan #### [facility] (DEFAULT) [address] [place] [address] 57155 Chloride [Moles/Vol] 102 mmol/L Normal 98-108 [facility] Comment on above: Performed By: #### ELEN GAMBINO MGAlan #### [facility] (DEFAULT) [address] [place] [address] CO2 [Moles/Vol] 28 mmol/L Normal 21-31 [facility] Comment on above: Performed By: #### ELEN GAMBINO MGAlan #### [facility] (DEFAULT) [address] [place] [address] 07972 Creatinine [Mass/Vol] 0.78 mg/dL Normal 0.70-1.30 [facility] Comment on above: Performed By: #### Claire STAPLES IPB, MGO #### [facility] (DEFAULT) [address] [place] [address] 80529 eGFR, CKD-EPI, Male > Normal >=60 [facility] Comment on above: Result Comment: Repo rted eGFR is based on the CKD-EPI 2020 equation using creatinine, age, and sex. Performed By: #### Claire STAPLES, IPB, MGO #### [facility] (DEFAULT) [address] [place] [address] 39268 Glucose [Mass/Vol] 109 mg/dL High 70-99 [facility] Comment on above: Performed By: #### Claire STAPLES, IPB, MGO #### [facility] (DEFAULT) [address] [place] [address] 46565 Osmolality [Osmolality] 288 mosm/kg Normal 278-305 [facility] Comment on above: Performed By: #### Claire STAPLES, CASSIDYB, MGO #### [facility] (DEFAULT) [address] [place] [address] 37906 Potassium [Moles/Vol] 4.0 mmol/L Normal 3.5-5.0 [facility] Comment on above: Performed By: #### Claire HMRosemary, IPB, MGO #### [facility] (DEFAULT) [address] [place] [address] 71586 Sodium [Moles/Vol] 138 mmol/L Normal 135-145 [facility] Comment on above: Performed By: #### Claire STAPLES, IPB, MGO #### [facility] (DEFAULT) [address] [place] [address] 25460 Urea nitrogen [Mass/Vol] 8 mg/dL Normal 7-25 [facility] Comment on above: Performed By: #### ELEN GAMBINO MGO #### [facility] (DEFAULT) [address] [place] [address] Urea nitrogen/Creatinine [Mass ratio] 10 mg/mg Normal [facility] Comment on above: Performed By: #### ELEN GAMBINO MGO #### [facility] (DEFAULT) [address] [place] [address] Anion gap [Moles/Vol] 11 mmol/L 7 - 17 mmol/L [facility] Chloride [Moles/Vol] 102 mmol/L 98 - 10 8 mmol/L [facility] CO2 [Moles/Vol] 28 mmol/L 21 - 31 mmol/L [facility] Creatinine [Mass/Vol] 0.65 mg/dL Low 0.70 - 1.30 mg/dL [facility] eGFR, CKD-EPI, Male - PINF [facility] Comment on above: Reported eGFR is bas ed on the CKD-EPI 2020 equation using creatinine, age, and sex. Glucose [Mass/Vol] 129 mg/dL High 70 - 99 mg/dL [facility] Interpretation and review of laboratory results Abnormal [facility] Osmolality Calc [Osmolality] 286 [facility] Potassium [Moles/Vol] 4.0 mmol/L 3.5 - 5.0 mmol/L [facility] Sodium [Moles/Vol] 137 mmol/L 135 - 145 mmol/L [facility] Urea nitrogen [Mass/Vol] 5 mg/dL Low 7 - 25 mg/dL [facility] Urea nitrogen/Creatinine [Mass ratio] 8 mg/mg [facility] Anion gap [Moles/Vol] 11 mmol/L Normal 7-17 [facility] Comment on above: Performed By: #### ELEN GAMBINO MGAlan #### [facility] (DEFAULT) [address] [place] [address] Chloride [Moles/Vol] 102 mmol/L Normal 98-108 [facility] Comment on above: Performed By: #### C HM7, IPB, MGO #### [facility] (DEFAULT) [address] [place] [address] 91923 CO2 [Moles/Vol] 28 mmol/L Normal 21-31 [facility] Comment on above: Performed By: #### Claire HM7, IPB, MGO #### [facility] (DEFAULT) [address] [place] [address] 97026 Creatinine [Mass/Vol] 0.65 mg/dL Low 0.70-1.30 [facility] Comment on above: Performed By: #### Claire HMRosemary, IPB, MGO #### [facility] (DEFAULT) [address] [place] [address] 07161 eGFR, CKD-EPI, Male > Normal >=60 [facility] Comment on above: Result Comment: Repo rted eGFR is based on the CKD-EPI 2020 equation using creatinine, age, and sex. Performed By: #### C JHOAN, IPB, MGO #### [facility] (DEFAULT) [address] [place] [address] 16641 Glucose [Mass/Vol] 129 mg/dL High 70-99 [facility] Comment on above: Performed By: #### Claire HMRosemary, IPB, MGO #### [facility] (DEFAULT) [address] [place] [address] 78269 Osmolality [Osmolality] 286 mosm/kg Normal 278-305 [facility] Comment on above: Performed By: #### Claire HM7, IPB, MGO #### [facility] (DEFAULT) [address] [place] [address] 89146 Potassium [Moles/Vol] 4.0 mmol/L Normal 3.5-5.0 [facility] Comment on above: Performed By: #### Claire HM7, IPB, MGO #### [facility] (DEFAULT) [address] [place] [address] 09185 Sodium [Moles/Vol] 137 mmol/L Normal 135-145 [facility] Comment on above: Performed By: #### C HM7, IPB, MGO #### [facility] (DEFAULT) [address] [place] [address] Urea nitrogen [Mass/Vol] 5 mg/dL Low 7-25 [facility] Comment on above: Performed By: #### C HM7, IPB, MGO #### [facility] (DEFAULT) [address] [place] [address] Urea nitrogen/Creatinine [Mass ratio] 8 mg/mg Normal [facility] Comment on above: Performed By: #### C HM7, IPB, MGO #### [facility] (DEFAULT) [address] [place] [address] Anion gap [Moles/Vol] 10 mmol/L 7 - 17 mmol/L [facility] Chloride [Moles/Vol] 102 mmol/L 98 - 10 8 mmol/L [facility] CO2 [Moles/Vol] 30 mmol/L 21 - 31 mmol/L [facility] Creatinine [Mass/Vol] 0.64 mg/dL Low 0.70 - 1.30 mg/dL [facility] eGFR, CKD-EPI, Male - PINF [facility] Comment on above: Reported eGFR is bas ed on the CKD-EPI 2020 equation using creatinine, age, and sex. Glucose [Mass/Vol] 101 mg/dL High 70 - 99 mg/dL [facility] Interpretation and review of laboratory results Abnormal [facility] Osmolality Calc [Osmolality] 287 [facility] Potassium [Moles/Vol] 4.4 mmol/L 3.5 - 5.0 mmol/L [facility] Sodium [Moles/Vol] 138 mmol/L 135 - 145 mmol/L [facility] Urea nitrogen [Mass/Vol] 5 mg/dL Low 7 - 25 mg/dL [facility] Urea nitrogen/Creatinine [Mass ratio] 8 mg/mg [facility] Anion gap [Moles/Vol] 10 mmol/L Normal 7-17 [facility] Comment on above: Performed By: #### C HM7 ####[facility] (DEFAULT)[address] [place] [address] Chloride [Moles/Vol] 102 mmol/L Normal 98-108 [facility] Comment on above: Performed By: #### C HM7 ####[facility] (DEFAULT)[address] [facility] [place] [address] CO2 [Moles/Vol] 30 mmol/L Normal 21-31 [facility] Comment on above: Performed By: #### C HM7 ####[facility] (DEFAULT)[address] [facility] [place] [address] Creatinine [Mass/Vol] 0.64 mg/dL Low 0.70-1.30 [facility] Comment on above: Performed By: #### C HM7 ####[facility] (DEFAULT)[address] [facility] [place] [address] eGFR, CKD-EPI, Male > Normal >=60 [facility] Comment on above: Result Comment: Repo rted eGFR is based on the CKD-EPI 2020 equation using creatinine, age, and sex. Performed By: #### C HM7 ####[facility] (DEFAULT)[address] [facility] [place] [address] Glucose [Mass/Vol] 101 mg/dL High 70-99 [facility] Comment on above: Performed By: #### C HM7 ####[facility] (DEFAULT)[address] [facility] [place] [address] Osmolality [Osmolality] 287 mosm/kg Normal 278-305 [facility] Comment on above: Performed By: #### C HM7 ####[facility] (DEFAULT)[address] [facility] [place] [address] Potassium [Moles/Vol] 4.4 mmol/L Normal 3.5-5.0 [facility] Comment on above: Performed By: #### C HM7 ####[facility] (DEFAULT)[address] [place] [address] Sodium [Moles/Vol] 138 mmol/L Normal 135-145 [facility] Comment on above: Performed By: #### C HM7 ####[facility] (DEFAULT)[address] [place] [address] Urea nitrogen [Mass/Vol] 5 mg/dL Low 7-25 [facility] Comment on above: Performed By: #### C HM7 ####[facility] (DEFAULT)[address] [place] [address] Urea nitrogen/Creatinine [Mass ratio] 8 mg/mg Normal [facility] Comment on above: Performed By: #### C HM7 ####[facility] (DEFAULT)[address] [place] [address] 65221 Anion gap [Moles/Vol] 12 mmol/L Normal 7-17 [facility] Comment on above: Performed By: #### S URGP #### [facility] (DEFAULT) [address] [place] [address] 14210 Chloride [Moles/Vol] 103 mmol/L Normal 98-108 [facility] Comment on above: Performed By: #### S URGP #### [facility] (DEFAULT) [address] [place] [address] 35321 CO2 [Moles/Vol] 27 mmol/L Normal 21-31 [facility] Comment on above: Performed By: #### S URGP #### [facility] (DEFAULT) [address] [place] [address] 09487 Creatinine [Mass/Vol] 0.61 mg/dL Low 0.70-1.30 [facility] Comment on above: Performed By: #### S URGP #### [facility] (DEFAULT) [address] [place] [address] 77361 eGFR, CKD-EPI, Male > Normal >=60 [facility] Comment on above: Result Comment: Repo rted eGFR is based on the CKD-EPI 2020 equation using creatinine, age, and sex. Performed By: #### S URGP #### [facility] (DEFAULT) [address] [place] [address] 44489 Glucose [Mass/Vol] 121 mg/dL High 70-99 [facility] Comment on above: Performed By: #### S URGP #### [facility] (DEFAULT) [address] [place] [address] 16420 Osmolality [Osmolality] 289 mosm/kg Normal 278-305 [facility] Comment on above: Performed By: #### S URGP #### [facility] (DEFAULT) [address] [place] [address] 75861 Potassium [Moles/Vol] 4.3 mmol/L Normal 3.5-5.0 [facility] Comment on above: Performed By: #### S URGP #### [facility] (DEFAULT) [address] [place] [address] 60241 Sodium [Moles/Vol] 138 mmol/L Normal 135-145 [facility] Comment on above: Performed By: #### S URGP #### [facility] (DEFAULT) [address] [place] [address] 56716 Urea nitrogen [Mass/Vol] 6 mg/dL Low 7-25 [facility] Comment on above: Performed By: #### S URGP #### [facility] (DEFAULT) [address] [place] [address] 63789 Urea nitrogen/Creatinine [Mass ratio] 10 mg/mg Normal [facility] Comment on above: Performed By: #### S URGP #### [facility] (DEFAULT) [address] [place] [address] 66506 CHEM 7 (LYTES,BUN,CREA,GLUC) Ordered By: Jessica Tran on 05-01-2024 Anion gap [Moles/Vol] 12 mmol/L 7 - 17 mmol/L [facility] Chloride [Moles/Vol] 103 mmol/L 98 - 10 8 mmol/L [facility] CO2 [Moles/Vol] 27 mmol/L 21 - 31 mmol/L [facility] Creatinine [Mass/Vol] 0.61 mg/dL Low 0.70 - 1.30 mg/dL [facility] eGFR, CKD-EPI, Male - PINF [facility] Comment on above: Reported eGFR is bas ed on the CKD-EPI 2020 equation using creatinine, age, and sex. Glucose [Mass/Vol] 121 mg/dL High 70 - 99 mg/dL [facility] Interpretation and review of laboratory results Abnormal [facility] Osmolality Calc [Osmolality] 289 [facility] Potassium [Moles/Vol] 4.3 mmol/L 3.5 - 5.0 mmol/L [facility] Sodium [Moles/Vol] 138 mmol/L 135 - 145 mmol/L [facility] Urea nitrogen [Mass/Vol] 6 mg/dL Low 7 - 25 mg/dL [facility] Urea nitrogen/Creatinine [Mass ratio] 10 mg/mg [facility] CONTINUOUS CARDIAC MONITORIN G STRIPOrdered By: Unassigned Pacs on 05-01-2024 [facility] Work Phone: DRAINAGE BY CATHETER PERITON EAL/RETROPERITONEAL PERCUTANEOUS W/ IMAGINon 05-01-2024 DRAINAGE BY CATHETER PERITONEAL/RETROPERITO CONRAD PERCUTANEOUS W/ [...] medication(s), I spent 51 minutes of continuous kqcj-fs-gdig time with the patient. COMPARISON: CT abdomen/pelvis [...] was provided using 2% Lidocaine. Procedure/Findings: An [id number] Cook Yueh trocar needle was advanced using CT fluoroscopic guidance into the collection. Approximately 10 mL of green, purulent fluid was aspirated from the lesion and sent to the laboratory for culture. A guidewire was then passed through the needle, and a series of dilators were exchanged over the wire. A 10 [place] [employer] drain was then placed over the [...] no immediate complications. IMPRESSION: Successful placement of 10-[place] drain into the deep pelvis. Catherine Delatorre II, MD was in the room and participated during all iyer portions of this procedure. I personally viewed and interpreted these images and I have reviewed and approved this report. Table formatting from the original result was not included. Meds Meds Time Date Event Details User 4:05 PM 04/30/24 Timeout: Sign-in Signed by Noel ePdraza RN at 04/30/2024 4:18 PM NK 4:25 [...] Heaton RN at 04/30/2024 4:56 PM AH [facility] IMPRESSION: Successful placement of 10-[place] drain into the deep pelvis. Catherine Delatorre [...] medication(s), I spent 51 minutes of continuous gzfi-uz-mojj time with the patient. COMPARISON: CT abdomen/pelvis [...] was provided using 2% Lidocaine. Procedure/Findings: An [id number] Cook Yueh trocar needle was advanced using CT fluoroscopic guidance into the collection. Approximately 10 mL of green, purulent fluid was aspirated from the lesion and sent to the laboratory for culture. A guidewire was then passed through the needle, and a series of dilators were exchanged over the wire. A 10 [place] [employer] drain was then placed over the [...] medication(s), I spent 51 minutes of continuous pzoz-lb-xakz time with the patient. COMPARISON: CT abdomen/pelvis [...] was provided using 2% Lidocaine. Procedure/Findings: An [id number] Cook SoBiz10 trocar needle was advanced using CT fluoroscopic guidance into the collection. Approximately 10 mL of green, purulent fluid was aspirated from the lesion and sent to the laboratory for culture. A guidewire was then passed through the needle, and a series of dilators were exchanged over the wire. A 10 [place] drain was then placed over the [...] immediate complications. IMPRESSION IMPRESSION: Successful placement of 10-[place] drain into the deep pelvis. Catherine Delatorre II, MD was in the room and participated during all iyer portions of this procedure. I personally viewed and interpreted these images and I have reviewed and approved this report. [facility] MAGNESIUMon 05-01-2024 Magnesium [Mass/Vol] 1.8 mg/dL 1.6 - 2 .6 mg/dL [facility] Magnesium [Mass/Vol] 1.8 mg/dL Normal 1.6-2.6 [facility] Comment on above: Performed By: #### S URGP #### [facility] (DEFAULT) [address] [place] [address] 97669 No Panel Informationon 05-01 Interpretation and review of laboratory results Normal [facility] PHOSPHATE, INORGANICon 05-01 Phosphate [Mass/Vol] 2.4 mg/dL 2.2 - 4 .6 mg/dL [facility] Phosphorous 2.4 mg/dL Normal 2.2-4.6 [facility] Comment on above: Performed By: #### S URGP #### [facility] (DEFAULT) [address] [place] [address] 07488 BACTERIAL CULTURE AND DIRECT SMEAR, LESION, TISSUE, DEVICEon 04-30-2024 Bacteria identified Cx Nom (Unsp spec) Normal [facility] Comment on above: Result Comment: Grow Moderate Growth Escherichia coli Susceptibilities not routinely performed. 2926 Moderate Growth Streptococcus anginosus group Susceptibilities not routinely performed. Refer to specimen [id number] on 04/29/24 for requested susceptibilities. Performed By: #### S URGP #### [facility] (DEFAULT) [address] [place] [address] 80984 Microscopic observation Gram stain Nom (Unsp spec) Normal [facility] Comment on above: Result Comment: Neut rophils, Heavy Mononuclear cells present Red Blood Cells Present Gram Negative Bacilli Gram Positive Cocci Performed By: #### S URGP #### [facility] (DEFAULT) [address] [address] CBC,PLATELETSon 04-30-2024 Erythrocyte distribution width (RBC) [Ratio] 13.9 % 10.9 - 14.3 % [facility] Hematocrit (Bld) [Volume fraction] 27.3 % Low 39.6 - 48.8 % [facility] Hemoglobin (Bld) [Mass/Vol] 9.0 g/dL Low 13.4 - 16.8 g/dL [facility] Interpretation and review of laboratory results Abnormal [facility] MCH (RBC) [Entitic mass] 30.0 pg 26.1 - 33.3 pg [facility] MCHC (RBC) [Mass/Vol] 33.0 g/dL 31.9 - 36.5 g/dL [facility] MCV (RBC) [Entitic vol] 91.0 fL 79.0 - 94.5 fL [facility] Platelet mean volume (Bld) [Entitic vol] 9.3 fL 8.7 - 12.3 fL [facility] Platelets (Bld) [#/Vol] 328 10*3/uL 146 - 337 K/uL [facility] RBC (Bld) [#/Vol] 3.00 10*6/uL Low [facility] WBC (Bld) [#/Vol] 12.78 10*3/uL High 3.73 - 10.10 K/uL [facility] Hematocrit (Bld) [Volume fraction] 27.3 % Low 39.6-48.8 [facility] Comment on above: Performed By: #### T YPEC #### [facility] (DEFAULT) [address] [address] Hemoglobin (Bld) [Mass/Vol] 9.0 g/dL Low 13.4-16.8 [facility] Comment on above: Performed By: #### T YPEC #### [facility] (DEFAULT) [address] [address] MCV (RBC) [Entitic vol] 91.0 fL Normal 79.0-94.5 [facility] Comment on above: Performed By: #### T YPEC #### [facility] (DEFAULT) [address] [address] Mean Cell Hgb 30.0 pg Normal 26.1-33.3 [facility] Comment on above: Performed By: #### T YPEC #### [facility] (DEFAULT) [address] [address] Mean Cell Hgb Conc 33.0 g/dL Normal 31.9-36.5 [facility] Comment on above: Performed By: #### T YPEC #### [facility] (DEFAULT) [address] [place] [address] Platelet mean volume (Bld) [Entitic vol] 9.3 fL Normal 8.7-12.3 [facility] Comment on above: Performed By: #### T YPEC #### [facility] (DEFAULT) [address] [place] [address] Platelets (Bld) [#/Vol] 328 10*3/uL Normal 146-337 [facility] Comment on above: Performed By: #### T YPEC #### [facility] (DEFAULT) [address] [place] [address] RBC (Bld) [#/Vol] 3.00 10*6/uL Low 4.38-5.83 [facility] Comment on above: Performed By: #### T YPEC #### [facility] (DEFAULT) [address] [place] [address] RBC Distribution 13.9 % Normal 10.9-14.3 [facility] Comment on above: Performed By: #### T YPEC #### [facility] (DEFAULT) [address] [place] [address] WBC (Bld) [#/Vol] 12.78 10*3/uL High 3.73-10.10 [facility] Comment on above: Performed By: #### T YPEC #### [facility] (DEFAULT) [address] [place] [address] CHEM 7 (LYTES,BUN,CREA,GLUC) on 04-30-2024 Anion gap [Moles/Vol] 13 mmol/L 7 - 17 mmol/L [facility] Chloride [Moles/Vol] 101 mmol/L 98 - 10 8 mmol/L [facility] CO2 [Moles/Vol] 29 mmol/L 21 - 31 mmol/L [facility] Creatinine [Mass/Vol] 0.56 mg/dL Low 0.70 - 1.30 mg/dL [facility] eGFR, CKD-EPI, Male - PINF [facility] Comment on above: Reported eGFR is bas ed on the CKD-EPI 2020 equation using creatinine, age, and sex. Glucose [Mass/Vol] 97 mg/dL 70 - 99 mg/dL [facility] Interpretation and review of laboratory results Abnormal [facility] Osmolality Calc [Osmolality] 289 [facility] Potassium [Moles/Vol] 3.2 mmol/L Low 3.5 - 5.0 mmol/L [facility] Sodium [Moles/Vol] 140 mmol/L 135 - 145 mmol/L [facility] Urea nitrogen [Mass/Vol] 6 mg/dL Low 7 - 25 mg/dL [facility] Urea nitrogen/Creatinine [Mass ratio] 11 mg/mg [facility] Anion gap [Moles/Vol] 13 mmol/L Normal 7-17 [facility] Comment on above: Performed By: #### S URGP #### [facility] (DEFAULT) [address] [address] Chloride [Moles/Vol] 101 mmol/L Normal 98-108 [facility] Comment on above: Performed By: #### S URGP #### [facility] (DEFAULT) [address] [place] [address] CO2 [Moles/Vol] 29 mmol/L Normal 21-31 [facility] Comment on above: Performed By: #### S URGP #### [facility] (DEFAULT) [address] [place] [address] Creatinine [Mass/Vol] 0.56 mg/dL Low 0.70-1.30 [facility] Comment on above: Performed By: #### S URGP #### [facility] (DEFAULT) [address] [address] eGFR, CKD-EPI, Male > Normal >=60 [facility] Comment on above: Result Comment: Repo rted eGFR is based on the CKD-EPI 2020 equation using creatinine, age, and sex. Performed By: #### S URGP #### [facility] (DEFAULT) [address] [place] [address] Glucose [Mass/Vol] 97 mg/dL Normal 70-99 [facility] Comment on above: Performed By: #### S URGP #### [facility] (DEFAULT) [address] [place] [address] Osmolality [Osmolality] 289 mosm/kg Normal 278-305 [facility] Comment on above: Performed By: #### S URGP #### [facility] (DEFAULT) [address] [place] [address] Potassium [Moles/Vol] 3.2 mmol/L Low 3.5-5.0 [facility] Comment on above: Performed By: #### S URGP #### [facility] (DEFAULT) [address] [place] [address] Sodium [Moles/Vol] 140 mmol/L Normal 135-145 [facility] Comment on above: Performed By: #### S URGP #### [facility] (DEFAULT) [address] [place] [address] Urea nitrogen [Mass/Vol] 6 mg/dL Low 7-25 [facility] Comment on above: Performed By: #### S URGP #### [facility] (DEFAULT) [address] [place] [address] Urea nitrogen/Creatinine [Mass ratio] 11 mg/mg Normal [facility] Comment on above: Performed By: #### S URGP #### [facility] (DEFAULT) [address] [place] [address] Anion gap [Moles/Vol] 8 mmol/L 7 - 17 mmol/L [facility] Chloride [Moles/Vol] 101 mmol/L 98 - 10 8 mmol/L [facility] CO2 [Moles/Vol] 32 mmol/L High 21 - 31 mmol/L [facility] Creatinine [Mass/Vol] 0.57 mg/dL Low 0.70 - 1.30 mg/dL [facility] eGFR, CKD-EPI, Male - PINF [facility] Comment on above: Reported eGFR is bas ed on the CKD-EPI 2020 equation using creatinine, age, and sex. Glucose [Mass/Vol] 102 mg/dL High 70 - 99 mg/dL [facility] Interpretation and review of laboratory results Abnormal [facility] Osmolality Calc [Osmolality] 285 [facility] Potassium [Moles/Vol] 3.3 mmol/L Low 3.5 - 5.0 mmol/L [facility] Sodium [Moles/Vol] 138 mmol/L 135 - 145 mmol/L [facility] Urea nitrogen [Mass/Vol] 6 mg/dL Low 7 - 25 mg/dL [facility] Urea nitrogen/Creatinine [Mass ratio] 11 mg/mg [facility] Anion gap [Moles/Vol] 8 mmol/L Normal 7-17 [facility] Comment on above: Performed By: #### C HM7, IPB, MGO #### [facility] (DEFAULT) [address] [place] [address] Chloride [Moles/Vol] 101 mmol/L Normal 98-108 [facility] Comment on above: Performed By: #### C HM7, IPB, MGO #### [facility] (DEFAULT) [address] [place] [address] CO2 [Moles/Vol] 32 mmol/L High 21-31 [facility] Comment on above: Performed By: #### C HM7, IPB, MGO #### [facility] (DEFAULT) [address] [place] [address] Creatinine [Mass/Vol] 0.57 mg/dL Low 0.70-1.30 [facility] Comment on above: Performed By: #### C HM7, IPB, MGO #### [facility] (DEFAULT) [address] [place] [address] eGFR, CKD-EPI, Male > Normal >=60 [facility] Comment on above: Result Comment: Repo rted eGFR is based on the CKD-EPI 2020 equation using creatinine, age, and sex. Performed By: #### C HM7, IPB, MGO #### [facility] (DEFAULT) [address] [place] [address] Glucose [Mass/Vol] 102 mg/dL High 70-99 [facility] Comment on above: Performed By: #### C HM7, IPB, MGO #### [facility] (DEFAULT) [address] [place] [address] Osmolality [Osmolality] 285 mosm/kg Normal 278-305 [facility] Comment on above: Performed By: #### C HM7, IPB, MGO #### [facility] (DEFAULT) [address] [place] [address] Potassium [Moles/Vol] 3.3 mmol/L Low 3.5-5.0 [facility] Comment on above: Performed By: #### C HM7, IPB, MGO #### [facility] (DEFAULT) [address] [place] [address] Sodium [Moles/Vol] 138 mmol/L Normal 135-145 [facility] Comment on above: Performed By: #### C HM7, IPB, MGO #### [facility] (DEFAULT) [address] [place] [address] Urea nitrogen [Mass/Vol] 6 mg/dL Low 7-25 [facility] Comment on above: Performed By: #### C HM7, IPB, MGO #### [facility] (DEFAULT) [address] [place] [address] Urea nitrogen/Creatinine [Mass ratio] 11 mg/mg Normal [facility] Comment on above: Performed By: #### C HM7, IPB, MGO #### [facility] (DEFAULT) [address] [place] [address] Anion gap [Moles/Vol] 9 mmol/L 7 - 17 mmol/L [facility] Chloride [Moles/Vol] 101 mmol/L 98 - 10 8 mmol/L [facility] CO2 [Moles/Vol] 31 mmol/L 21 - 31 mmol/L [facility] Creatinine [Mass/Vol] 0.65 mg/dL Low 0.70 - 1.30 mg/dL [facility] eGFR, CKD-EPI, Male - PINF [facility] Comment on above: Reported eGFR is bas ed on the CKD-EPI 2020 equation using creatinine, age, and sex. Glucose [Mass/Vol] 108 mg/dL High 70 - 99 mg/dL [facility] Interpretation and review of laboratory results Abnormal [facility] Osmolality Calc [Osmolality] 287 [facility] Potassium [Moles/Vol] 3.4 mmol/L Low 3.5 - 5.0 mmol/L [facility] Sodium [Moles/Vol] 138 mmol/L 135 - 145 mmol/L [facility] Urea nitrogen [Mass/Vol] 8 mg/dL 7 - 25 mg/dL [facility] Urea nitrogen/Creatinine [Mass ratio] 12 mg/mg [facility] Anion gap [Moles/Vol] 9 mmol/L Normal 7-17 [facility] Comment on above: Performed By: #### I SWATI MARTINEZ CHM7 ####[facility] (DEFAULT)[address] [place] [address] Chloride [Moles/Vol] 101 mmol/L Normal 98-108 [facility] Comment on above: Performed By: #### I SWATI MARTINEZ CHM7 ####[facility] (DEFAULT)[address] [place] [address] CO2 [Moles/Vol] 31 mmol/L Normal 21-31 [facility] Comment on above: Performed By: #### I SWATI MARTINEZ CHM7 ####[facility] (DEFAULT)[address] [facility] [place] [address] Creatinine [Mass/Vol] 0.65 mg/dL Low 0.70-1.30 [facility] Comment on above: Performed By: #### SWATI FISHER CHM7 ####[facility] (DEFAULT)[address] [facility] [place] [address] eGFR, CKD-EPI, Male > Normal >=60 [facility] Comment on above: Result Comment: Repo rted eGFR is based on the CKD-EPI 2020 equation using creatinine, age, and sex. Performed By: #### SWATI FISHER CHM7 ####[facility] (DEFAULT)[address] [place] [address] Glucose [Mass/Vol] 108 mg/dL High 70-99 [facility] Comment on above: Performed By: #### SWATI FISHER CHMRosemary ####[facility] (DEFAULT)[address] [place] [address] Osmolality [Osmolality] 287 mosm/kg Normal 278-305 [facility] Comment on above: Performed By: #### SWATI FISHER CHM7 ####[facility] (DEFAULT)[address] [place] [address] Potassium [Moles/Vol] 3.4 mmol/L Low 3.5-5.0 [facility] Comment on above: Performed By: #### SWATI FISHER CHM7 ####[facility] (DEFAULT)[address] [facility] [place] [address] Sodium [Moles/Vol] 138 mmol/L Normal 135-145 [facility] Comment on above: Performed By: #### Keisha MARTINEZ MGO CHM7 ####[facility] (DEFAULT)[address] [facility] [place] [address] Urea nitrogen [Mass/Vol] 8 mg/dL Normal 7-25 [facility] Comment on above: Performed By: #### I SWATI MARTINEZ CHM7 ####[facility] (DEFAULT)[address] [place] [address] Urea nitrogen/Creatinine [Mass ratio] 12 mg/mg Normal [facility] Comment on above: Performed By: #### I SWATI MARTINEZ CHM7 ####[facility] (DEFAULT)[address] [place] [address] DRAINAGE BY CATHETER PERITON EAL/RETROPERITONEAL PERCUTANEOUS W/ IMAGINon 04-30-2024 Radiology Study observation (narrative) [facility] MAGNESIUMon 04-30-2024 Magnesium [Mass/Vol] 1.9 mg/dL 1.6 - 2 .6 mg/dL [facility] Magnesium [Mass/Vol] 1.9 mg/dL Normal 1.6-2.6 [facility] Comment on above: Performed By: #### I SWATI MARTINEZ CHM7 ####[facility] (DEFAULT)[address] [place] [address] No Panel Informationon 04-30 Interpretation and review of laboratory results Normal [facility] PHOSPHATE, INORGANICon 04-30 Phosphate [Mass/Vol] 2.7 mg/dL 2.2 - 4 .6 mg/dL [facility] Phosphorous 2.7 mg/dL Normal 2.2-4.6 [facility] Comment on above: Performed By: #### I SWATI MARTINEZ CHM7 ####[facility] (DEFAULT)[address] [place] [address] BACTERIAL CULTURE AND DIRECT SMEAR, LESION, TISSUE, DEVICEon 04-29-2024 Ampicillin [Susceptibility] <= Invalid Interpretation Code [facility] Comment on above: Order Comment: If an aerobe isolation is necessary, please send specimen for anaerobic culture. Performed By: #### S URGP #### [facility] (DEFAULT) [address] [place] [address] cefTRIAXone [Susceptibility] <= Invalid Interpretation Code [facility] Comment on above: Order Comment: If an aerobe isolation is necessary, please send specimen for anaerobic culture. Performed By: #### S URGP #### [facility] (DEFAULT) [address] [address] Clindamycin [Susceptibility] <= Invalid Interpretation Code [facility] Comment on above: Order Comment: If an aerobe isolation is necessary, please send specimen for anaerobic culture. Performed By: #### S URGP #### [facility] (DEFAULT) [address] [place] [address] levoFLOXacin [Susceptibility] 0.5 ug/mL Invalid Interpretation Code [facility] Comment on above: Order Comment: If an aerobe isolation is necessary, please send specimen for anaerobic culture. Performed By: #### S URGP #### [facility] (DEFAULT) [address] [address] Penicillin [Susceptibility] <=0.06 Invalid Interpretation Code [facility] Comment on above: Order Comment: If an aerobe isolation is necessary, please send specimen for anaerobic culture. Performed By: #### S URGP #### [facility] (DEFAULT) [address] [address] Vancomycin [Susceptibility] 0.5 ug/mL Invalid Interpretation Code [facility] Comment on above: Order Comment: If an aerobe isolation is necessary, please send specimen for anaerobic culture. Performed By: #### S URGP #### [facility] (DEFAULT) [address] [address] BLOOD CULTUREon 04-29-2024 Bacteria identified Cx Nom (Unsp spec) NO GROWTH DAY 5 OF 5 Normal [facility] Comment on above: Order Comment: 2 Bot tles (1 Set - consists of 1 Aerobic bottle and 1 Anaerobic bottle) -1st Peripheral DrawFor syringe method draw:If able to obtain adequate sample (20 ml) inoculate anaerobic bottle firstIf inadequate sample obtained (less than 20 ml) inoculate aerobic bottle firstFor vacutainer method draw: Fill aerobic bottle first, then anaerobic Performed By: #### S URGP #### [facility] (DEFAULT) [address] [place] [address] CBC AND ELECTRONIC DIFFon Basophils (Bld) [#/Vol] 0.04 10*3/uL 0.00 - 0.09 K/uL [facility] Basophils/100 WBC (Bld) 0.2 % [facility] Differential cell count method Nom (Bld) Electronic Differential O [facility] Eosinophils (Bld) [#/Vol] 0.07 10*3/uL 0.00 - 0.48 K/uL [facility] Eosinophils/100 WBC (Bld) 0.4 % [facility] Erythrocyte distribution width (RBC) [Ratio] 14.0 % 10.9 - 14.3 % [facility] Hematocrit (Bld) [Volume fraction] 27.5 % Low 39.6 - 48.8 % [facility] Hemoglobin (Bld) [Mass/Vol] 9.1 g/dL Low 13.4 - 16.8 g/dL [facility] Immature granulocytes (Bld) [#/Vol] 0.24 10*3/uL High NINF - 0.07 K/uL [facility] Immature granulocytes/100 WBC (Bld) 1.4 % [facility] Interpretation and review of laboratory results Abnormal [facility] Lymphocytes (Bld) [#/Vol] 1.17 10*3/uL 0.83 - 3.57 K/uL [facility] Lymphocytes/100 WBC (Bld) 6.8 % [facility] MCH (RBC) [Entitic mass] 29.5 pg 26.1 - 33.3 pg [facility] MCHC (RBC) [Mass/Vol] 33.1 g/dL 31.9 - 36.5 g/dL [facility] MCV (RBC) [Entitic vol] 89.3 fL 79.0 - 94.5 fL [facility] Monocytes (Bld) [#/Vol] 0.87 10*3/uL 0.24 - 0.93 K/uL [facility] Monocytes/100 WBC (Bld) 5.1 % [facility] Neutrophils (Bld) [#/Vol] 14.82 10*3/uL High 1.57 - 6.19 K/uL [facility] Nucleated RBC/100 WBC (Bld) [Ratio] 0.0 % NINF [facility] Platelet mean volume (Bld) [Entitic vol] 8.9 fL 8.7 - 12.3 fL [facility] Platelets (Bld) [#/Vol] 330 10*3/uL 146 - 337 K/uL [facility] RBC (Bld) [#/Vol] 3.08 10*6/uL Low [facility] Segmented neutrophils/100 WBC (Bld) 86.1 % [facility] WBC (Bld) [#/Vol] 17.21 10*3/uL High 3.73 - 10.10 K/uL [facility] Basophils (Bld) [#/Vol] 0.04 10*3/uL Normal 0.00-0.09 [facility] Comment on above: Performed By: #### T YPEC #### [facility] (DEFAULT) [address] [address] Basophils/100 WBC (Bld) 0.2 % Normal [facility] Comment on above: Performed By: #### T YPEC #### [facility] (DEFAULT) [address] [place] [address] DIFF STATUS Electronic Differential Normal [facility] Comment on above: Performed By: #### T YPEC #### [facility] (DEFAULT) [address] [place] [address] Eosinophils (Bld) [#/Vol] 0.07 10*3/uL Normal 0.00-0.48 [facility] Comment on above: Performed By: #### T YPEC #### [facility] (DEFAULT) [address] [place] [address] Eosinophils/100 WBC (Bld) 0.4 % Normal [facility] Comment on above: Performed By: #### T YPEC #### [facility] (DEFAULT) [address] [address] Hematocrit (Bld) [Volume fraction] 27.5 % Low 39.6-48.8 [facility] Comment on above: Performed By: #### T YPEC #### [facility] (DEFAULT) [address] [address] Hemoglobin (Bld) [Mass/Vol] 9.1 g/dL Low 13.4-16.8 [facility] Comment on above: Performed By: #### T YPEC #### [facility] (DEFAULT) [address] [address] Immature Grans % 1.4 % Normal [facility] Comment on above: Performed By: #### T YPEC #### [facility] (DEFAULT) [address] [address] Immature Grans Absolute 0.24 K/uL High <=0.07 [facility] Comment on above: Performed By: #### T YPEC #### [facility] (DEFAULT) [address] [address] Lymphocytes (Bld) [#/Vol] 1.17 10*3/uL Normal 0.83-3.57 [facility] Comment on above: Performed By: #### T YPEC #### [facility] (DEFAULT) [address] [address] Lymphocytes/100 WBC (Bld) 6.8 % Normal [facility] Comment on above: Performed By: #### T YPEC #### [facility] (DEFAULT) [address] [address] MCV (RBC) [Entitic vol] 89.3 fL Normal 79.0-94.5 [facility] Comment on above: Performed By: #### T YPEC #### [facility] (DEFAULT) [address] [address] Mean Cell Hgb 29.5 pg Normal 26.1-33.3 [facility] Comment on above: Performed By: #### T YPEC #### [facility] (DEFAULT) [address] [address] Mean Cell Hgb Conc 33.1 g/dL Normal 31.9-36.5 [facility] Comment on above: Performed By: #### T YPEC #### [facility] (DEFAULT) [address] [address] Monocytes (Bld) [#/Vol] 0.87 10*3/uL Normal 0.24-0.93 [facility] Comment on above: Performed By: #### T YPEC #### [facility] (DEFAULT) [address] [address] Monocytes/100 WBC (Bld) 5.1 % Normal [facility] Comment on above: Performed By: #### T YPEC #### [facility] (DEFAULT) [address] [address] Nucleated RBC 0.0 /100 WBC Normal <=0.2 [facility] Comment on above: Performed By: #### T YPEC #### [facility] (DEFAULT) [address] [address] Platelet mean volume (Bld) [Entitic vol] 8.9 fL Normal 8.7-12.3 [facility] Comment on above: Performed By: #### T YPEC #### [facility] (DEFAULT) [address] [address] Platelets (Bld) [#/Vol] 330 10*3/uL Normal 146-337 [facility] Comment on above: Performed By: #### T YPEC #### [facility] (DEFAULT) [address] [address] RBC (Bld) [#/Vol] 3.08 10*6/uL Low 4.38-5.83 [facility] Comment on above: Performed By: #### T YPEC #### [facility] (DEFAULT) [address] [place] [address] RBC Distribution 14.0 % Normal 10.9-14.3 [facility] Comment on above: Performed By: #### T YPEC #### [facility] (DEFAULT) [address] [place] [address] Segs + Bands Auto 86.1 % Normal [facility] Comment on above: Performed By: #### T YPEC #### [facility] (DEFAULT) [address] [place] [address] Segs + Bands,Absolute Auto 14.82 K/uL High 1.57-6.19 [facility] Comment on above: Performed By: #### T YPEC #### [facility] (DEFAULT) [address] [place] [address] WBC (Bld) [#/Vol] 17.21 10*3/uL High 3.73-10.10 [facility] Comment on above: Performed By: #### T YPEC #### [facility] (DEFAULT) [address] [place] [address] CEAOrdered By: Negro grace on 04-29-2024 Carcinoembryonic Ag [Mass/Vol] ng/mL NINF - 5.0 ng/mL [facility] Comment on above: This test was perfor med on the [employer] IM Immunoassay platform which is a 2-step sandwich chemiluminescent immunoassay. It is important to note that assays using different manufacturers and/or methods may not be comparable. Interpretation and review of laboratory results Normal [facility] CEAon 04-29-2024 Cea <2.0 Normal <=5.0 [facility] Comment on above: Result Comment: This test was performed on the [employer] IM Immunoassay platform which is a 2-step sandwich chemiluminescent immunoassay. It is important to note that assays using different manufacturers and/or methods may not be comparable. Performed By: #### S URGP #### [facility] (DEFAULT) [address] [place] [address] CHEM 7 (LYTES,BUN,CREA,GLUC) on 04-29-2024 Anion gap [Moles/Vol] 8 mmol/L 7 - 17 mmol/L [facility] Chloride [Moles/Vol] 105 mmol/L 98 - 10 8 mmol/L [facility] CO2 [Moles/Vol] 28 mmol/L 21 - 31 mmol/L [facility] Creatinine [Mass/Vol] 0.45 mg/dL Low 0.70 - 1.30 mg/dL [facility] eGFR, CKD-EPI, Male - PINF [facility] Comment on above: Reported eGFR is bas ed on the CKD-EPI 2020 equation using creatinine, age, and sex. Glucose [Mass/Vol] 93 mg/dL 70 - 99 mg/dL [facility] Interpretation and review of laboratory results Abnormal [facility] Osmolality Calc [Osmolality] 285 [facility] Potassium [Moles/Vol] 3.4 mmol/L Low 3.5 - 5.0 mmol/L [facility] Comment on above: Specimen hemolyzed. Potassium results may be falsely elevated masking hypokalemia. Interpret within the clinical context. Sodium [Moles/Vol] 138 mmol/L 135 - 145 mmol/L [facility] Urea nitrogen [Mass/Vol] 7 mg/dL 7 - 25 mg/dL [facility] Urea nitrogen/Creatinine [Mass ratio] 16 mg/mg [facility] Anion gap [Moles/Vol] 8 mmol/L Normal 7-17 [facility] Comment on above: Performed By: #### S URGP #### [facility] (DEFAULT) [address] [place] [address] Chloride [Moles/Vol] 105 mmol/L Normal 98-108 [facility] Comment on above: Performed By: #### S URGP #### [facility] (DEFAULT) [address] [place] [address] CO2 [Moles/Vol] 28 mmol/L Normal 21-31 [facility] Comment on above: Performed By: #### S URGP #### [facility] (DEFAULT) [address] [address] Creatinine [Mass/Vol] 0.45 mg/dL Low 0.70-1.30 [facility] Comment on above: Performed By: #### S URGP #### [facility] (DEFAULT) [address] [place] [address] eGFR, CKD-EPI, Male > Normal >=60 [facility] Comment on above: Result Comment: Repo rted eGFR is based on the CKD-EPI 2020 equation using creatinine, age, and sex. Performed By: #### S URGP #### [facility] (DEFAULT) [address] [address] Glucose [Mass/Vol] 93 mg/dL Normal 70-99 [facility] Comment on above: Performed By: #### S URGP #### [facility] (DEFAULT) [address] [address] Osmolality [Osmolality] 285 mosm/kg Normal 278-305 [facility] Comment on above: Performed By: #### S URGP #### [facility] (DEFAULT) [address] [address] Potassium [Moles/Vol] 3.4 mmol/L Low 3.5-5.0 [facility] Comment on above: Result Comment: Spec imen hemolyzed. Potassium results may be falsely elevated masking hypokalemia. Interpret within the clinical context. Performed By: #### S URGP #### [facility] (DEFAULT) [address] [address] Sodium [Moles/Vol] 138 mmol/L Normal 135-145 [facility] Comment on above: Performed By: #### S URGP #### [facility] (DEFAULT) [address] [address] Urea nitrogen [Mass/Vol] 7 mg/dL Normal 7-25 [facility] Comment on above: Performed By: #### S URGP #### [facility] (DEFAULT) [address] [place] [address] Urea nitrogen/Creatinine [Mass ratio] 16 mg/mg Normal [facility] Comment on above: Performed By: #### S URGP #### [facility] (DEFAULT) [address] [place] [address] Anion gap [Moles/Vol] 7 mmol/L 7 - 17 mmol/L [facility] Chloride [Moles/Vol] 100 mmol/L 98 - 10 8 mmol/L [facility] CO2 [Moles/Vol] 33 mmol/L High 21 - 31 mmol/L [facility] Creatinine [Mass/Vol] 0.53 mg/dL Low 0.70 - 1.30 mg/dL [facility] eGFR, CKD-EPI, Male - PINF [facility] Comment on above: Reported eGFR is bas ed on the CKD-EPI 2020 equation using creatinine, age, and sex. Glucose [Mass/Vol] 100 mg/dL High 70 - 99 mg/dL [facility] Interpretation and review of laboratory results Abnormal [facility] Osmolality Calc [Osmolality] 284 [facility] Potassium [Moles/Vol] 3.4 mmol/L Low 3.5 - 5.0 mmol/L [facility] Sodium [Moles/Vol] 137 mmol/L 135 - 145 mmol/L [facility] Urea nitrogen [Mass/Vol] 7 mg/dL 7 - 25 mg/dL [facility] Urea nitrogen/Creatinine [Mass ratio] 13 mg/mg [facility] Anion gap [Moles/Vol] 7 mmol/L Normal 7-17 [facility] Comment on above: Performed By: #### S URGP #### [facility] (DEFAULT) [address] [place] [address] Chloride [Moles/Vol] 100 mmol/L Normal 98-108 [facility] Comment on above: Performed By: #### S URGP #### [facility] (DEFAULT) [address] [place] [address] CO2 [Moles/Vol] 33 mmol/L High 21-31 [facility] Comment on above: Performed By: #### S URGP #### [facility] (DEFAULT) [address] [place] [address] Creatinine [Mass/Vol] 0.53 mg/dL Low 0.70-1.30 [facility] Comment on above: Performed By: #### S URGP #### [facility] (DEFAULT) [address] [place] [address] eGFR, CKD-EPI, Male > Normal >=60 [facility] Comment on above: Result Comment: Repo rted eGFR is based on the CKD-EPI 2020 equation using creatinine, age, and sex. Performed By: #### S URGP #### [facility] (DEFAULT) [address] [place] [address] Glucose [Mass/Vol] 100 mg/dL High 70-99 [facility] Comment on above: Performed By: #### S URGP #### [facility] (DEFAULT) [address] [place] [address] Osmolality [Osmolality] 284 mosm/kg Normal 278-305 [facility] Comment on above: Performed By: #### S URGP #### [facility] (DEFAULT) [address] [place] [address] Potassium [Moles/Vol] 3.4 mmol/L Low 3.5-5.0 [facility] Comment on above: Performed By: #### S URGP #### [facility] (DEFAULT) [address] [place] [address] Sodium [Moles/Vol] 137 mmol/L Normal 135-145 [facility] Comment on above: Performed By: #### S URGP #### [facility] (DEFAULT) [address] [place] [address] Urea nitrogen [Mass/Vol] 7 mg/dL Normal 7-25 [facility] Comment on above: Performed By: #### S URGP #### [facility] (DEFAULT) [address] [place] [address] Urea nitrogen/Creatinine [Mass ratio] 13 mg/mg Normal [facility] Comment on above: Performed By: #### S URGP #### [facility] (DEFAULT) [address] [place] [address] Anion gap [Moles/Vol] 8 mmol/L 7 - 17 mmol/L [facility] Chloride [Moles/Vol] 100 mmol/L 98 - 10 8 mmol/L [facility] CO2 [Moles/Vol] 33 mmol/L High 21 - 31 mmol/L [facility] Creatinine [Mass/Vol] 0.57 mg/dL Low 0.70 - 1.30 mg/dL [facility] eGFR, CKD-EPI, Male - PINF [facility] Comment on above: Reported eGFR is bas ed on the CKD-EPI 2020 equation using creatinine, age, and sex. Glucose [Mass/Vol] 97 mg/dL 70 - 99 mg/dL [facility] Interpretation and review of laboratory results Abnormal [facility] Osmolality Calc [Osmolality] 286 [facility] Potassium [Moles/Vol] 3.1 mmol/L Low 3.5 - 5.0 mmol/L [facility] Sodium [Moles/Vol] 138 mmol/L 135 - 145 mmol/L [facility] Urea nitrogen [Mass/Vol] 9 mg/dL 7 - 25 mg/dL [facility] Urea nitrogen/Creatinine [Mass ratio] 16 mg/mg [facility] Anion gap [Moles/Vol] 8 mmol/L Normal 7-17 [facility] Comment on above: Performed By: #### C HM7 ####[facility] (DEFAULT)[address] [place] [address] Chloride [Moles/Vol] 100 mmol/L Normal 98-108 [facility] Comment on above: Performed By: #### C HM7 ####[facility] (DEFAULT)[address] [place] [address] CO2 [Moles/Vol] 33 mmol/L High 21-31 [facility] Comment on above: Performed By: #### C HM7 ####[facility] (DEFAULT)[address] [place] [address] Creatinine [Mass/Vol] 0.57 mg/dL Low 0.70-1.30 [facility] Comment on above: Performed By: #### C HM7 ####[facility] (DEFAULT)[address] [place] [address] eGFR, CKD-EPI, Male > Normal >=60 [facility] Comment on above: Result Comment: Repo rted eGFR is based on the CKD-EPI 2020 equation using creatinine, age, and sex. Performed By: #### C HM7 ####[facility] (DEFAULT)[address] [facility] [place] [address] Glucose [Mass/Vol] 97 mg/dL Normal 70-99 [facility] Comment on above: Performed By: #### C HM7 ####[facility] (DEFAULT)[address] [facility] [place] [address] Osmolality [Osmolality] 286 mosm/kg Normal 278-305 [facility] Comment on above: Performed By: #### C HM7 ####[facility] (DEFAULT)[address] [place] [address] Potassium [Moles/Vol] 3.1 mmol/L Low 3.5-5.0 [facility] Comment on above: Performed By: #### C HM7 ####[facility] (DEFAULT)[address] [place] [address] Sodium [Moles/Vol] 138 mmol/L Normal 135-145 [facility] Comment on above: Performed By: #### C HM7 ####[facility] (DEFAULT)[address] [place] [address] Urea nitrogen [Mass/Vol] 9 mg/dL Normal 7-25 [facility] Comment on above: Performed By: #### C HM7 ####[facility] (DEFAULT)[address] [place] [address] Urea nitrogen/Creatinine [Mass ratio] 16 mg/mg Normal [facility] Comment on above: Performed By: #### C HM7 ####[facility] (DEFAULT)[address] [place] [address] CH 7 - EDOrdered By: Robyn Jaimes on 04-29-2024 Anion gap [Moles/Vol] 9 mmol/L 7 - 17 mmol/L [facility] Chloride [Moles/Vol] 100 mmol/L 98 - 10 8 mmol/L [facility] CO2 [Moles/Vol] 34 mmol/L High 21 - 31 mmol/L [facility] Creatinine [Mass/Vol] 0.56 mg/dL Low 0.70 - 1.30 mg/dL [facility] eGFR, CKD-EPI, Male - PINF [facility] Comment on above: Reported eGFR is bas ed on the CKD-EPI 2020 equation using creatinine, age, and sex. Glucose [Mass/Vol] 97 mg/dL 70 - 99 mg/dL [facility] Interpretation and review of laboratory results Abnormal [facility] Osmolality Calc [Osmolality] 289 [facility] Potassium [Moles/Vol] 2.7 mmol/L Critically low 3.5 - 5.0 mmol/L [facility] Comment on above: Specimen integrity claire solares. Repeated and verified Sodium [Moles/Vol] 140 mmol/L 135 - 145 mmol/L [facility] Urea nitrogen [Mass/Vol] 10 mg/dL 7 - 25 mg/dL [facility] Urea nitrogen/Creatinine [Mass ratio] 18 mg/mg [facility] CHM 7 - EDon 04-29-2024 Anion gap [Moles/Vol] 9 mmol/L Normal 7-17 [facility] Comment on above: Performed By: #### C HM7, IPB, MGO #### [facility] (DEFAULT) [address] [place] [address] Chloride [Moles/Vol] 100 mmol/L Normal 98-108 [facility] Comment on above: Performed By: #### C HM7, IPB, MGO #### [facility] (DEFAULT) [address] [place] [address] CO2 [Moles/Vol] 34 mmol/L High 21-31 [facility] Comment on above: Performed By: #### Claire HM7, IPB, MGO #### [facility] (DEFAULT) [address] [place] [address] Creatinine [Mass/Vol] 0.56 mg/dL Low 0.70-1.30 [facility] Comment on above: Performed By: #### Claire HM7, IPB, MGO #### [facility] (DEFAULT) [address] [place] [address] eGFR, CKD-EPI, Male > Normal >=60 [facility] Comment on above: Result Comment: Repo rted eGFR is based on the CKD-EPI 2020 equation using creatinine, age, and sex. Performed By: #### Claire HM7, IPB, MGO #### [facility] (DEFAULT) [address] [place] [address] Glucose [Mass/Vol] 97 mg/dL Normal 70-99 [facility] Comment on above: Performed By: #### Claire HM7, IPB, MGO #### [facility] (DEFAULT) [address] [place] [address] Osmolality [Osmolality] 289 mosm/kg Normal 278-305 [facility] Comment on above: Performed By: #### C HM7, IPB, MGO #### [facility] (DEFAULT) [address] [place] [address] Potassium [Moles/Vol] 2.7 mmol/L Critically low 3.5-5.0 [facility] Comment on above: Result Comment: Spec imen integrity checked. Repeated and verified Performed By: #### C HM7, IPB, MGO #### [facility] (DEFAULT) [address] [place] [address] Sodium [Moles/Vol] 140 mmol/L Normal 135-145 [facility] Comment on above: Performed By: #### C HM7, IPB, MGO #### [facility] (DEFAULT) [address] [place] [address] Urea nitrogen [Mass/Vol] 10 mg/dL Normal 7-25 [facility] Comment on above: Performed By: #### Claire HM7, IPB, MGO #### [facility] (DEFAULT) [address] [place] [address] Urea nitrogen/Creatinine [Mass ratio] 18 mg/mg Normal [facility] Comment on above: Performed By: #### Claire HM7, IPB, MGO #### [facility] (DEFAULT) [address] [place] [address] ABDOMEN/PELVIS WITH CONTR Yeison 04-29-2024 CT [...] to inflammatory changes in the pelvis. Normal [facility] CT Abdomen and Pelvis W shikha Tracy [...] due to inflammatory changes in the pelvis. [facility] Radiology Study observation (narrative) [facility] CT Abdomen and Pelvis W cont rast IVOrdered By: Rubia Meyers on 04-29-2024 [facility] Work Phone: HEPATIC FUNCTION PANELon Albumin [Mass/Vol] 2.6 g/dL Low 3.5 - 5.0 g/dL [facility] ALP [Catalytic activity/Vol] 92 U/L 32 - 126 U/L [facility] ALT [Catalytic activity/Vol] 50 U/L 10 - 52 U/L [facility] AST [Catalytic activity/Vol] 61 U/L High 10 - 39 U/L [facility] Bilirubin [Mass/Vol] 0.6 [facility] Bilirubin.direct [Mass/Vol] 0.1 mg/dL [facility] mg/dL [facility] Interpretation and review of laboratory results Abnormal [facility] Protein [Mass/Vol] 5.9 g/dL Low 6.4 - 8.3 g/dL [facility] Albumin [Mass/Vol] 2.6 g/dL Low 3.5-5.0 [facility] Comment on above: Performed By: #### C ELEN STAPLES MGO #### [facility] (DEFAULT) [address] [place] [address] ALP [Catalytic activity/Vol] 92 U/L Normal 32-126 [facility] Comment on above: Performed By: #### ELEN GAMBINO MGO #### [facility] (DEFAULT) [address] [place] [address] ALT [Catalytic activity/Vol] 50 U/L Normal 10-52 [facility] Comment on above: Performed By: #### Claire HM7, IPB, MGO #### [facility] (DEFAULT) [address] [place] [address] AST [Catalytic activity/Vol] 61 U/L High 10-39 [facility] Comment on above: Performed By: #### Claire HM7, IPB, MGO #### [facility] (DEFAULT) [address] [place] [address] Bilirubin [Mass/Vol] 0.6 mg/dL Normal <1.5 [facility] Comment on above: Performed By: #### Claire HM7, IPB, MGO #### [facility] (DEFAULT) [address] [place] [address] Bilirubin.indirect [Mass/Vol] 0.1 mg/dL Normal <0.3 [facility] Comment on above: Performed By: #### Claire HM7, IPB, MGO #### [facility] (DEFAULT) [address] [place] [address] Protein [Mass/Vol] 5.9 g/dL Low 6.4-8.3 [facility] Comment on above: Performed By: #### Claire HM7, IPB, MGO #### [facility] (DEFAULT) [address] [place] [address] MINT GREEN TOP TUBEon 2023 [facility] No Panel Informationon 04-29 [facility] PLATELET COUNTon 04-29-2024 Interpretation and review of laboratory results Normal [facility] Platelet mean volume (Bld) [Entitic vol] 9.3 fL 8.7 - 12.3 fL [facility] Platelets (Bld) [#/Vol] 308 10*3/uL 146 - 337 K/uL [facility] Platelet mean volume (Bld) [Entitic vol] 9.3 fL Normal 8.7-12.3 [facility] Comment on above: Performed By: #### G EN #### [facility] (DEFAULT) [address] [place] [address] Platelets (Bld) [#/Vol] 308 10*3/uL Normal 146-337 [facility] Comment on above: Performed By: #### G EN #### [facility] (DEFAULT) [address] [place] [address] PT,INR,PTTon 04-29-2024 aPTT Coag (PPP) [Time] 34.8 s High [facility] INR Coag (Bld) [Relative time] 1.4 {INR} High 0.9 - 1.1 [facility] Interpretation and review of laboratory results Abnormal [facility] PT Coag (PPP) [Time] 16.7 s High [facility] aPTT Coag (Bld) [Time] 34.8 s High 24.0-34.3 [facility] Comment on above: Performed By: #### S URGP #### [facility] (DEFAULT) [address] [place] [address] INR Coag (PPP) [Relative time] 1.4 {INR} High 0.9-1.1 [facility] Comment on above: Performed By: #### S URGP #### [facility] (DEFAULT) [address] [place] [address] PT Coag (PPP) [Time] 16.7 s High 11.9-14.2 [facility] Comment on above: Performed By: #### S URGP #### [facility] (DEFAULT) [address] [place] [address] VENOUS BLOOD GAS PLUS LACTAT EOrdered By: Doug León on 04-29-2024 Base excess Calc (Bld) [Moles/Vol] 13.5 mmol/L High -3.0 - 3.0 mmol/L [facility] CO2 (Bld) [Partial pressure] 41 mm[Hg] [facility] HCO3 (Bld) [Moles/Vol] 36 mmol/L High 22 - 29 mmol/L [facility] Interpretation and review of laboratory results Abnormal [facility] Lactate [Moles/Vol] 0.9 mmol/L 0.5 - 1. 6 mmol/L [facility] Oxygen (Bld) [Partial pressure] 65 mm[Hg] mm Hg [facility] Comment on above: Venous pO2 is not re commended for the evaluation of oxygen status, clinical correlation is recommended. Oxygen saturation in Blood 95 % High 70 - 80 % [facility] pH (Bld) 7.55 [pH] Critically high 7.32 - 7.43 [facility] Specimen source Nom (Unsp spec) Venous [facility] VENOUS BLOOD GAS PLUS LACTAT Wes 04-29-2024 Base Excess 13.5 mmol/L High -3.0-3.0 [facility] Comment on above: Performed By: #### G ASVL #### [facility] (DEFAULT) [address] [place] [address] HCO3 (Bld) [Moles/Vol] 36 mmol/L High 22-29 [facility] Comment on above: Performed By: #### G ASVL #### [facility] (DEFAULT) [address] [place] [address] Lactate, Whole Blood 0.9 mmol/L Normal 0.5-1.6 [facility] Comment on above: Performed By: #### G ASVL #### [facility] (DEFAULT) [address] [place] [address] Oxygen saturation in Blood 95 % High 70-80 [facility] Comment on above: Performed By: #### G ASVL #### [facility] (DEFAULT) [address] [place] [address] pCO2, Venous 41 mm Hg Normal 36-52 [facility] Comment on above: Performed By: #### G ASVL #### [facility] (DEFAULT) [address] [place] [address] pH, Venous 7.55 Critically high 7.32-7.43 [facility] Comment on above: Performed By: #### G ASVL #### [facility] (DEFAULT) [address] [place] [address] pO2, Venous 65 mm Hg Normal [facility] Comment on above: Result Comment: Veno us pO2 is not recommended for the evaluation of oxygen status, clinical correlation is recommended. Performed By: #### G ASVL #### [facility] (DEFAULT) [address] [address] Specimen type Nom (Spec) Venous Normal [facility] Comment on above: Performed By: #### G ASVL #### [facility] (DEFAULT) [address] [place] [address] Abdomen/Pelvis W IV Cont ONL Yon 04-28-2024 Abdomen/Pelvis W IV Cont ONLY Normal [facility] CBC W/Diff, Automatedon 07- SMEAR COMMENT SCANNED Normal [facility] Comment on above: Result Comment: NEUT ROPHILIA NOTED Performed By: #### L 500.4050, L100.0100 ####[facility] [address] [place], [address] Comprehensive Metabolic Prof ilon 04-28-2024 Albumin [Mass/Vol] 2.1 g/dL Low 3.2-5.0 [facility] Comment on above: Performed By: #### L 500.4050, L100.0100 ####[facility] [address] [place], [address] Albumin/Globulin [Mass ratio] 0.5 {ratio} Low 0.9-2.4 [facility] Comment on above: Performed By: #### L 500.4050, L100.0100 ####[facility] [address] [place], [address] ALK P 121 U/L High 45-117 [facility] Comment on above: Performed By: #### L 500.4050, L100.0100 ####[facility] [address] [place], [address] ALT [Catalytic activity/Vol] 81 U/L High 16-61 [facility] Comment on above: Performed By: #### L 500.4050, L100.0100 ####[facility] [address] [place], [address] AST [Catalytic activity/Vol] 119 U/L High 15-37 [facility] Comment on above: Performed By: #### L 500.4050, L100.0100 ####[facility] [address] [place], [address] Bilirubin [Mass/Vol] 0.40 mg/dL Normal 0.20-1.00 [facility] Comment on above: Result Comment: For patients on eltrombopag therapy, use of Dimension Telferner TBIL is not recommended. Performed By: #### L 500.4050, L100.0100 ####[facility] [address] [place], [address] BUN/CRE 18.5 RATIO Normal 10-20 [facility] Comment on above: Performed By: #### L 500.4050, L100.0100 ####[facility] [address] [place], [address] CA,Total 8.1 mg/dL Low 8.5-10.1 [facility] Comment on above: Performed By: #### L 500.4050, L100.0100 ####[facility] [address] [place], [address] Chloride [Moles/Vol] 97 mmol/L Low 98-107 [facility] Comment on above: Performed By: #### L 500.4050, L100.0100 ####[facility] [address] [place], [address] CO2 [Moles/Vol] 34.0 mmol/L High 21.0-32.0 [facility] Comment on above: Performed By: #### L 500.4050, L100.0100 ####[facility] [address] [place], [address] Creatinine [Mass/Vol] 0.70 mg/dL Normal 0.70-1.30 [facility] Comment on above: Result Comment: The validity of the calculated GFR GFRAA in patients over70 years has not been determined. Clinical correlation isessential. Performed By: #### L 500.4050, L100.0100 ####[facility] [address] [place], [address] ECRCL 96.81 ml/min Normal [facility] Comment on above: Performed By: #### L 500.4050, L100.0100 ####[facility] [address] [place], [address] EST GFR - AA 149 mL/min Normal >60 [facility] Comment on above: Result Comment: Afri can Sudanese GFR Calc Performed By: #### L 500.4050, L100.0100 ####[facility] [address] [place], [address] GAP 6 Normal 5-15 [facility] Comment on above: Performed By: #### L 500.4050, L100.0100 ####[facility] [address] [place], [address] GFR/1.73 sq M.predicted among non-blacks MDRD (S/P/Bld) [Vol rate/Area] 123 mL/min/{1.73_m2} Normal >60 [facility] Comment on above: Result Comment: Non- GFR Calc Performed By: #### L 500.4050, L100.0100 ####[facility] [address] [place], [address] Globulin (S) [Mass/Vol] 4.1 g/dL Normal 2.2-4.2 [facility] Comment on above: Performed By: #### L 500.4050, L100.0100 ####[facility] [address] [place], [address] Glucose [Mass/Vol] 119 mg/dL High 74-106 [facility] Comment on above: Result Comment: Fast ing Glucose result from 100 to 125 mg/dLsuggests IMPAIRED HOMEOSTASIS per A.D.A. criteria. Performed By: #### L 500.4050, L100.0100 ####[facility] [address] [place], [address] Potassium [Moles/Vol] 2.5 mmol/L Invalid Interpretation Code 3.5-5.1 [facility] Comment on above: Result Comment: Crit ical Result(s) Called at: 15:07:50 04/28/2024 by: Mayela Westfall RN (). Results read back bysame. Performed By: #### L 500.4050, L100.0100 ####[facility] [address] [place], [address] Sodium [Moles/Vol] 137 mmol/L Normal 136-145 [facility] Comment on above: Performed By: #### L 500.4050, L100.0100 ####[facility] [address] [place], [address] T PROT 6.2 g/dL Low 6.4-8.2 [facility] Comment on above: Performed By: #### L 500.4050, L100.0100 ####[facility] [address] [place], [address] Urea nitrogen [Mass/Vol] 13 mg/dL Normal 7-18 [facility] Comment on above: Performed By: #### L 500.4050, L100.0100 ####[facility] [address] [place], [address] Emergency Department Summary on 04-28-2024 Emergency Department Summary Normal [facility] Urinalysis, Completeon 04-28 BACTERIA 2+ /hpf Normal None Seen [facility] Comment on above: Order Comment: COLLE CTOR TO SPECIFY Performed By: #### L 400.0001 ####[facility] [address] [place], [address] EPI,SQUAMOUS 0-5 SEEN Normal 0-5 [facility] Comment on above: Order Comment: COLLE CTOR TO SPECIFY Performed By: #### L 400.0001 ####[facility] [address] [place], [address] RBC 10-25 SEEN Normal 0-5 [facility] Comment on above: Order Comment: [facility] CTOR TO SPECIFY Performed By: #### L 400.0001 ####[facility] [address] [place], [address] WBC 25-50 SEEN Normal 0-5 [facility] Comment on above: Order Comment: [facility] CTOR TO SPECIFY Performed By: #### L 400.0001 ####[facility] [address] [place], [address] Mucus Ql (Urine sed) 0 SEEN Normal [facility] Comment on above: Order Comment: [facility] CTOR TO SPECIFY Performed By: #### L 400.0001 ####[facility] [address] [place], [address] NM BONE SCAN WHOLE BODYon NM BONE SCAN WHOLE BODY [address] [address] Patient: ANDREW POSADA Phone#: : 1965 Age: 58 Gender: M Pt. Type: Out Account: [id number] Location: 052 Ordering: JERRY MATAMOROS Exam Date: 03/11/2024/13:13 Family Phys: Charge Code: [id number] Physician: Lowndes Order #: [id number] Dose#: PROCEDURE: BONE SCAN WHOLE BODY COMPARISON: [...] Hung MD on 03/11/2024 at 16:48 Normal [facility] OPERATIVE PROCEDURESon 02-25 OPERATIVE PROCEDURES [facility] OPERATIVE REPORT NAME ACCOUNT SEX AGE ADMIT DISCHARGE PT MED. RECORD# NUMBER DATE DATE TYPE TIM [id number] Ye 58 02/25/24 02/25/24 2 ANDREW [id number] ROOM: [facility] DATE OF : 1965 DICTATING PHYSICIAN: Jerry Matamoros DATE OF SURGERY: February 25, 2024 SURGEON: Jerry Matamoros MD TAX ASSESSOR: ANESTHESIOLOGIST: Aries Steven CRNA ANESTHETIC: PREOPERATIVE DIAGNOSIS: [...] tip of my index finger. The Olympus [id number] flexible endoscope was introduced through the anal [...] Jerry Matamoros MD 02/25/24 14:56 JOB #: [id number] Transcribed By: am 02/25/24 15:43 Electronically signed by: E-Sign Dr. Jerry Matamoros MD 02/26/24 17:30 Page 2 of 2 ANDREW POSADA Operative Report Normal [facility] C DIFF COMPLETEon 02-25-2024 C DIFF [...] specimen should be resumbitted for retesting. Normal [facility] Comment on above: Performed By: #### 2 92411 #### [facility],[address] [place] [address] APTTon 11-09-2023 aPTT Coag (Bld) [Time] 26.3 s Normal 25.4 - 38.4 [facility] Comment on above: Performed By: #### 2 02279 #### [facility],[address] [place] [address] CBC + DIFFon 11-09-2023 Baso # 0.00 x10EE3/UL Normal 0.00 - 0.10 [facility] Comment on above: Performed By: #### 2 54796 #### [facility],[address] [place] [address] Basophils/100 WBC (Bld) 0.5 % Normal 0.0 - 2.0 [facility] Comment on above: Performed By: #### 2 81894 #### [place] [address] CBC + DIFF Normal [facility] Comment on above: Result Comment: CBC- COMPLETE BLOOD COUNT Performed By: #### 2 19653 #### [place] [address] EO # 0.10 x10EE3/UL Normal 0.00 - 0.50 [facility] Comment on above: Performed By: #### 2 10412 #### [facility],[address] [place] [address] Eosinophils/100 WBC (Bld) 1.1 % Normal 0.0 - 7.0 [facility] Comment on above: Performed By: #### 2 43893 #### [place] [address] Erythrocyte distribution width (RBC) [Ratio] 14.0 % Normal 12.0 - 15.6 [facility] Comment on above: Performed By: #### 2 03019 #### [place] [address] Hematocrit (Bld) [Volume fraction] 41.7 % Normal 40.0 - 52.0 [facility] Comment on above: Performed By: #### 2 19407 #### [facility],[address] [place], [place] [address] Hemoglobin (Bld) [Mass/Vol] 13.9 g/dL Normal 13.0 - 17.5 [facility] Comment on above: Performed By: #### 2 79854 #### [facility],[address] [place] [address] Lymph # 0.70 x10EE3/UL Low 0.80 - 2.80 [facility] Comment on above: Performed By: #### 2 37171 #### [facility],[address] [place], [place] [address] Lymphocytes/100 WBC (Bld) 9.5 % Low 20.0 - 45.0 [facility] Comment on above: Performed By: #### 2 36601 #### [facility],[address] [place], [place] [address] MANUAL DIFF N/A Normal [facility] Comment on above: Performed By: #### 2 00136 #### [facility],[address] [place], [place] [address] MCH (RBC) [Entitic mass] 31 pg Normal 27 - 33 [facility] Comment on above: Performed By: #### 2 59603 #### [facility],[address] [place], [place] [address] MCHC 33 X10 3 Normal 32 - 36 [facility] Comment on above: Performed By: #### 2 93233 #### [facility],[address] [place] [address] MCV (RBC) [Entitic vol] 92 fL Normal 81 - 98 [facility] Comment on above: Performed By: #### 2 59898 #### [facility],[address] [place] [address],[place] [address] Bowie # 0.50 x10EE3/UL Normal 0.20 - 1.00 [facility] Comment on above: Performed By: #### 2 51668 #### [facility],[address] [place] [address] MONOS % 6.3 % Normal 0.0 - 10.0 [facility] Comment on above: Performed By: #### 2 02290 #### [facility],[address] [place] [address] Morphology Leonard (Bld) [Interp] N/A Normal [facility] Comment on above: Result Comment: {CD] Performed By: #### 2 88697 #### [place] [address] Neut # 6.40 x10EE3/UL Normal 1.50 - 7.10 [facility] Comment on above: Performed By: #### 2 72567 #### [place] [id number] Neutrophils/100 WBC (Bld) 82.6 % High 46.0 - 76.0 [facility] Comment on above: Performed By: #### 2 13969 #### [place] [id number] PLATELET 351 x10EE3/UL Normal 150 - 450 [facility] Comment on above: Performed By: #### 2 17024 #### [facility],[address] [place] [address] Platelet mean volume (Bld) [Entitic vol] 6.6 fL Normal 6.4 - 10.5 [facility] Comment on above: Result Comment: AUTO MATED DIFFERENTIAL Performed By: #### 2 25296 #### [address] [address] RBC 4.56 x 10EE6/UL Normal 4.50 - 6.00 [facility] Comment on above: Performed By: #### 2 44388 #### [facility] [place] [address] WBC 7.8 x 10EE3/UL Normal 4.5 - 10.8 [facility] Comment on above: Performed By: #### 2 79293 #### [facility],[address] [place] [address] CMP with eGFRon 11-09-2023 AGE 57 years Normal [facility] Comment on above: Performed By: #### 2 54850 #### [facility],[address] [place] [address] Albumin [Mass/Vol] 3.1 g/dL Low 3.4 - 5.0 [facility] Comment on above: Performed By: #### 2 41463 #### [facility],[address] [place] [address] Albumin/Globulin [Mass ratio] 0.8 {ratio} Low 0.9 - 1.6 [facility] Comment on above: Performed By: #### 2 54725 #### [facility],[address] [place] [address] ALK PHOS 91 U/L Normal 46 - 116 [facility] Comment on above: Performed By: #### 2 32350 #### [facility],[address] [place] [address] ALT [Catalytic activity/Vol] 23 U/L Normal 16 - 63 [facility] Comment on above: Performed By: #### 2 19639 #### [facility],[address] [place] [address] Anion gap [Moles/Vol] 11 mmol/L Normal 10 - 20 [facility] Comment on above: Performed By: #### 2 44467 #### [facility],[address] [place] [address] AST [Catalytic activity/Vol] 12 U/L Low 15 - 37 [facility] Comment on above: Performed By: #### 2 94464 #### [facility],[address] [place] [address] B/C RATIO 15 ratio Normal 0 - 30 [facility] Comment on above: Performed By: #### 2 50636 #### [facility],[address] [place] [address] Bilirubin [Mass/Vol] 0.8 mg/dL Normal 0.2 - 1.0 [facility] Comment on above: Performed By: #### 2 09058 #### [facility],[address] [place] [address] Calcium [Mass/Vol] 8.9 mg/dL Normal 8.5 - 10.1 [facility] Comment on above: Performed By: #### 2 17858 #### [facility],[address] [place] [address] Chloride [Moles/Vol] 102 mmol/L Normal 98 - 107 [facility] Comment on above: Performed By: #### 2 93219 #### [facility],[address] [place] [address] CMP with eGFR Normal [facility] Comment on above: Result Comment: COMP REHENSIVE METABOLIC PANEL Performed By: #### 2 11356 #### [facility],[address] [place] [address] CO2 [Moles/Vol] 28.3 mmol/L Normal 21.0 - 32.0 [facility] Comment on above: Performed By: #### 2 42305 #### [facility],[address] [place] [address] Creatinine [Mass/Vol] 0.87 mg/dL Normal 0.70 - 1.30 [facility] Comment on above: Performed By: #### 2 65889 #### [facility],[address] [place] [address] GFR/1.73 sq M.predicted among non-blacks MDRD (S/P/Bld) [Vol rate/Area] mL/min/{1.73_m2} Normal 60 - 999 [facility] Comment on above: Performed By: #### 2 50689 #### [address] [address] Result Comment: ACCO RDING TO THE NATIONAL KIDNEY DISEASE EDUCATION PROGRAM(NKDE), A NORMAL eGFR IS A VALUE GREATER THAN OR EQUAL TO 60 ML/MIN/1.73 SQ METERS. CHRONIC KIDNEY DISEASE: <60mL/MIN/1.73 SQ METERS KIDNEY FAILURE: <15mL/MIN/1.73 SQ METERS THIS TEST SHOULD ONLY BE USED FOR PATIENTS 18 YEARS OF AGE AND OLDER. Globulin (S) [Mass/Vol] 3.8 g/dL Normal 1.5 - 3.8 [facility] Comment on above: Performed By: #### 2 20405 #### [address] [address] Glucose [Mass/Vol] 97 mg/dL Normal 74 - 106 [facility] Comment on above: Performed By: #### 2 84521 #### [address] [address] Potassium [Moles/Vol] 3.8 mmol/L Normal 3.5 - 5.1 [facility] Comment on above: Performed By: #### 2 23858 #### [address] [address] Protein [Mass/Vol] 6.9 g/dL Normal 6.4 - 8.2 [facility] Comment on above: Performed By: #### 2 42118 #### [address] [address] Sodium [Moles/Vol] 137 mmol/L Normal 136 - 145 [facility] Comment on above: Performed By: #### 2 78482 #### [address] [address] Urea nitrogen [Mass/Vol] 13 mg/dL Normal 7 - 18 [facility] Comment on above: Performed By: #### 2 38574 #### [facility],[address] [place] [address] ABDOMEN/PELVIS Won 2023 CT ABDOMEN/PELVIS [address] [address] Patient: ANDREW POSADA Phone#: : 1965 Age: 57 Gender: M Pt. Type: ER Account: [id number] Location: [facility] Ordering: STEPHANIE ROUSSEAU Exam Date: 11/09/2023/9:18 Family Phys: Charge Code: [id number] Physician: Lowndes Order #: [id number] Dose#: 9.8 mGy PROCEDURE: CT ABDOMEN/PELVIS WITH [...] 57 Gender: M Pt. Type: ER Account: [id number] Location: 052 Ordering: STEPHANIE ROUSSEAU Exam Date: 11/09/2023/9:18 Family Phys: Charge Code: [id number] Physician: Lowndes Order #: [id number] Dose#: 9.8 mGy OTHER: Negative. CONCLUSION: 1. Under filling versus mucosal thickening at the rectosigmoid colon. 2. Large volume stool retention. Dictated by: Kelli Hung MD on 11/10/2023 at 9:52 Approved by: Kelli Hung MD on 11/10/2023 at 9:56 Normal [facility] LIPASEon 11-09-2023 Lipase [Catalytic activity/Vol] 45.0 U/L Normal 15.0 - 78.0 [facility] Comment on above: Result Comment: *PLE ASE NOTE THAT RANGES FOR LIPASE HAVE CHANGED OF 10/17/23 DUE TO AN ASSAY UPDATE BY THE [employer]AURANT LINE SERVER.THE NEW ASSAY RANGE IS 6-250 U/L, WITH A REFERENCE RANGE OF 16-77 U/L. Performed By: #### 2 14133 #### [place] [id number] PROTHROMBIN TIME AND INRon 0 11-09-2023 INR Coag (PPP) [Relative time] 1.0 {INR} Normal 0.8 - 1.2 [facility] Comment on above: Result Comment: T [...] MECHANICAL HEART VALVES Performed By: #### 2 77855 #### [facility],[address] [place], [place] [address] PROTHROMBIN TIME AND INR Normal [facility] Comment on above: Result Comment: PROT HROMBIN TIME AND INR Performed By: #### 2 70501 #### [address] [address] PT-COUMADIN 12.2 sec Normal 9.3 - 14.1 [facility] Comment on above: Performed By: #### 2 11377 #### [address] [address] CRYPTOSPORIDIUM & GIARDIA AG EIA [CCL]on 10-24-2023 CRYPTOSPORIDIUM ANTIGENBY EIA See Below Normal Negative [facility] Comment on above: Result Comment: CRYP TOSPORIDIUM ANTIGEN BY EIA Negative for Cryptosporidium by EIA. GIARDIA ANTIGEN BY EIA Negative for Giardia lamblia by EIA. SOURCE: [facility] [address] [place] [address] Alan Vasquez III, M.D. [id number] Performed By: #### 2 01297 #### [address] [address] OVA & PARASITE EXAM [CCL]on 10-24-2023 OVA AND PARASITE EXAM See Below Normal [facility] Comment on above: Result Comment: OVA AND PARASITE EXAM No Parasites Seen SOURCE: [facility] [address] [place] [address] Alan Vasquez III, M.D. [id number] Performed By: #### 2 72703 #### [address] [address] CLOSTRIDIUM DIFFICLE TOXIN P CR [CCL]on 10-23-2023 C difficile PCR Positive Abnormal Negative for C. difficile [facility] Comment on above: Result Comment: A po sitive PCR result may indicate C. difficile infection or colonization. The positive predictive value of this test for C. difficile infection is highest for patients with clinically significant diarrhea (>=3 unformed stools in 24 h) who do not have an alternative explanation (e.g., recent receipt of laxatives). [facility] [email or web address] [address] [place] [address] Alan Vasquez III, M.D. [id number] Performed By: #### 2 12477 #### [facility],[address] [place], [place] [address] No Panel Informationon 10-23 Shiga Toxins 1 and 2 See Note Normal [facility] Work Phone: Laboratory - Microbiology an d Antimicrobial susceptibilityon 10-22-2023 Bacteria identified Cx Nom (Bld) See Note Normal [facility] Work Phone: STOOL CULTURE [FADI]on Stool culture STOOL CULTURE [AULTM AN] 10/27/23.1248.DNP.COMPLETE Normal [facility] Comment on above: Performed By: #### 2 91261 ####[facility],[address] [place], [place] [address] No Panel Informationon 10-21 C difficile PCR Positive Abnormal [facility] CRYPTOSPORIDIUM ANTIGENBY EIA See Below Normal [facility] Culture Stool See Note Normal [facility] OVA AND PARASITE EXAM See Below Normal [facility] Vital Signs Date Time Vital Sign Value Performing Clinician Faci lity 03-01-2025 13:28-0400 Body temperature 98.5 [degF] No Primary Care Physician [facility] 03-01-2025 13:28-0400 Diastolic blood pressure 98 mm[Hg] No Primary Care Physician [facility] 03-01-2025 13:28-0400 Heart rate 79 /min No Primary Care Physician [facility] 03-01-2025 13:28-0400 Respiratory rate 16 /min No Primary Care Physician [facility] 03-01-2025 13:28-0400 SaO2% (BldA) [Mass fraction] 94 % No Primary Care Physician [facility] 03-01-2025 13:28-0400 Systolic blood pressure 139 mm[Hg] No Primary Care Physician [facility] 03-01-2025 05:34-0400 Body mass index (BMI) [Ratio] 16.4 kg/m2 No Primary Care Physician [facility] 03-01-2025 05:34-0400 Body weight 49.2 kg No Primary Care Physician [facility] 02-28-2025 11:43-0400 Body height 173 cm No Primary Care Physician [facility] 02-25-2025 17:00-0400 Inhaled oxygen flow rate 2 L/min No Primary Care Physician [facility] 02-24-2025 11:34-0400 Body temperature 98.3 [degF] No Primary Care Physician [facility] 02-24-2025 11:34-0400 Diastolic blood pressure 107 mm[Hg] No Primary Care Physician [facility] 02-24-2025 11:34-0400 Heart rate 78 /min No Primary Care Physician [facility] 02-24-2025 11:34-0400 Respiratory rate 16 /min No Primary Care Physician [facility] 02-24-2025 11:34-0400 SaO2% (BldA) [Mass fraction] 96 % No Primary Care Physician [facility] 02-24-2025 11:34-0400 Systolic blood pressure 161 mm[Hg] No Primary Care Physician [facility] 02-24-2025 06:52-0400 Body height 172.72 cm No Primary Care Physician [facility] 02-24-2025 06:52-0400 Body mass index (BMI) [Ratio] 16.1 kg/m2 No Primary Care Physician [facility] 02-24-2025 06:52-0400 Body weight 48.2 kg No Primary Care Physician [facility] 02-22-2025 12:56-0400 Body height 172.7 cm Greg Mason MD Work Phone: [facility] 02-22-2025 12:56-0400 Body mass index (BMI) [Ratio] 17.49 kg/m2 Greg Mason MD Work Phone: [facility] 02-22-2025 12:56-0400 Body weight 52.16 kg Greg Mason MD Work Phone: [facility] 02-22-2025 12:56-0400 Heart rate 75 /min Greg Mason MD Work Phone: [facility] 02-22-2025 12:56-0400 SaO2% (BldA) [Mass fraction] 98 % Greg Mason MD Work Phone: [facility] 02-14-2025 09:44-0400 Body mass index (BMI) [Ratio] 17.2 kg/m2 No Primary Care Physician [facility] 02-14-2025 09:44-0400 Body temperature 98.8 [degF] No Primary Care Physician [facility] 02-14-2025 09:44-0400 Body weight 51.45 kg No Primary Care Physician [facility] 02-14-2025 09:44-0400 Diastolic blood pressure 82 mm[Hg] No Primary Care Physician [facility] 02-14-2025 09:44-0400 Heart rate 57 /min No Primary Care Physician [facility] 02-14-2025 09:44-0400 Respiratory rate 18 /min No Primary Care Physician [facility] 02-14-2025 09:44-0400 SaO2% (BldA) [Mass fraction] 97 % No Primary Care Physician [facility] 02-14-2025 09:44-0400 Systolic blood pressure 148 mm[Hg] No Primary Care Physician [facility] 02-11-2025 10:26-0400 Body temperature 97.5 [degF] No Primary Care Physician [facility] 02-11-2025 10:26-0400 Diastolic blood pressure 85 mm[Hg] No Primary Care Physician [facility] 02-11-2025 10:26-0400 Heart rate 62 /min No Primary Care Physician [facility] 02-11-2025 10:26-0400 Respiratory rate 16 /min No Primary Care Physician [facility] 02-11-2025 10:26-0400 SaO2% (BldA) [Mass fraction] 98 % No Primary Care Physician [facility] 02-11-2025 10:26-0400 Systolic blood pressure 166 mm[Hg] No Primary Care Physician [facility] 01-31-2025 09:46-0400 Body mass index (BMI) [Ratio] 18.1 kg/m2 No Primary Care Physician [facility] 01-31-2025 09:46-0400 Body temperature 98.6 [degF] No Primary Care Physician [facility] 01-31-2025 09:46-0400 Body weight 53.97 kg No Primary Care Physician [facility] 01-31-2025 09:46-0400 Diastolic blood pressure 76 mm[Hg] No Primary Care Physician [facility] 01-31-2025 09:46-0400 Heart rate 59 /min No Primary Care Physician [facility] 01-31-2025 09:46-0400 Respiratory rate 18 /min No Primary Care Physician [facility] 01-31-2025 09:46-0400 SaO2% (BldA) [Mass fraction] 98 % No Primary Care Physician [facility] 01-31-2025 09:46-0400 Systolic blood pressure 122 mm[Hg] No Primary Care Physician [facility] 01-17-2025 09:26-0400 Body mass index (BMI) [Ratio] 18.1 kg/m2 No Primary Care Physician [facility] 01-17-2025 09:26-0400 Body temperature 98.5 [degF] No Primary Care Physician [facility] 01-17-2025 09:26-0400 Body weight 54.11 kg No Primary Care Physician [facility] 01-17-2025 09:26-0400 Diastolic blood pressure 76 mm[Hg] No Primary Care Physician [facility] 01-17-2025 09:26-0400 Heart rate 61 /min No Primary Care Physician [facility] 01-17-2025 09:26-0400 Respiratory rate 18 /min No Primary Care Physician [facility] 01-17-2025 09:26-0400 SaO2% (BldA) [Mass fraction] 97 % No Primary Care Physician [facility] 01-17-2025 09:26-0400 Systolic blood pressure 121 mm[Hg] No Primary Care Physician [facility] 01-03-2025 09:34-0400 Body mass index (BMI) [Ratio] 18.1 kg/m2 No Primary Care Physician [facility] 01-03-2025 09:34-0400 Body temperature 98.7 [degF] No Primary Care Physician [facility] 01-03-2025 09:34-0400 Body weight 54.06 kg No Primary Care Physician [facility] 01-03-2025 09:34-0400 Diastolic blood pressure 81 mm[Hg] No Primary Care Physician [facility] 01-03-2025 09:34-0400 Heart rate 61 /min No Primary Care Physician [facility] 01-03-2025 09:34-0400 Respiratory rate 18 /min No Primary Care Physician [facility] 01-03-2025 09:34-0400 SaO2% (BldA) [Mass fraction] 95 % No Primary Care Physician [facility] 01-03-2025 09:34-0400 Systolic blood pressure 130 mm[Hg] No Primary Care Physician [facility] 12-28-2024 08:15-0400 Body mass index (BMI) [Ratio] 17.4 kg/m2 No Primary Care Physician [facility] 12-28-2024 08:15-0400 Body temperature 98.9 [degF] No Primary Care Physician [facility] 12-28-2024 08:15-0400 Body weight 51.93 kg No Primary Care Physician [facility] 12-28-2024 08:15-0400 Diastolic blood pressure 82 mm[Hg] No Primary Care Physician [facility] 12-28-2024 08:15-0400 Heart rate 80 /min No Primary Care Physician [facility] 12-28-2024 08:15-0400 Respiratory rate 16 /min No Primary Care Physician [facility] 12-28-2024 08:15-0400 SaO2% (BldA) [Mass fraction] 95 % No Primary Care Physician [facility] 12-28-2024 08:15-0400 Systolic blood pressure 126 mm[Hg] No Primary Care Physician [facility] 12-20-2024 09:16-0500 Body mass index (BMI) [Ratio] 18.7 kg/m2 No Primary Care Physician [facility] 12-20-2024 09:16-0500 Body temperature 98.7 [degF] No Primary Care Physician [facility] 12-20-2024 09:16-0500 Body weight 55.96 kg No Primary Care Physician [facility] 12-20-2024 09:16-0500 Diastolic blood pressure 87 mm[Hg] No Primary Care Physician [facility] 12-20-2024 09:16-0500 Heart rate 60 /min No Primary Care Physician [facility] 12-20-2024 09:16-0500 Respiratory rate 16 /min No Primary Care Physician [facility] 12-20-2024 09:16-0500 SaO2% (BldA) [Mass fraction] 95 % No Primary Care Physician [facility] 12-20-2024 09:16-0500 Systolic blood pressure 147 mm[Hg] No Primary Care Physician [facility] 12-06-2024 09:37-0500 Body mass index (BMI) [Ratio] 18.8 kg/m2 No Primary Care Physician [facility] 12-06-2024 09:37-0500 Body temperature 97.8 [degF] No Primary Care Physician [facility] 12-06-2024 09:37-0500 Body weight 56.24 kg No Primary Care Physician [facility] 12-06-2024 09:37-0500 Diastolic blood pressure 86 mm[Hg] No Primary Care Physician [facility] 12-06-2024 09:37-0500 Heart rate 58 /min No Primary Care Physician [facility] 12-06-2024 09:37-0500 Respiratory rate 16 /min No Primary Care Physician [facility] 12-06-2024 09:37-0500 SaO2% (BldA) [Mass fraction] 97 % No Primary Care Physician [facility] 12-06-2024 09:37-0500 Systolic blood pressure 139 mm[Hg] No Primary Care Physician [facility] 11-22-2024 09:36-0500 Body mass index (BMI) [Ratio] 18.3 kg/m2 No Primary Care Physician [facility] 11-22-2024 09:36-0500 Body temperature 98.2 [degF] No Primary Care Physician [facility] 11-22-2024 09:36-0500 Body weight 54.57 kg No Primary Care Physician [facility] 11-22-2024 09:36-0500 Diastolic blood pressure 84 mm[Hg] No Primary Care Physician [facility] 11-22-2024 09:36-0500 Heart rate 56 /min No Primary Care Physician [facility] 11-22-2024 09:36-0500 Respiratory rate 18 /min No Primary Care Physician [facility] 11-22-2024 09:36-0500 SaO2% (BldA) [Mass fraction] 100 % No Primary Care Physician [facility] 11-22-2024 09:36-0500 Systolic blood pressure 142 mm[Hg] No Primary Care Physician [facility] 11-08-2024 08:26-0500 Body mass index (BMI) [Ratio] 18.3 kg/m2 No Primary Care Physician [facility] 11-08-2024 08:26-0500 Body temperature 98.9 [degF] No Primary Care Physician [facility] 11-08-2024 08:26-0500 Body weight 54.62 kg No Primary Care Physician [facility] 11-08-2024 08:26-0500 Diastolic blood pressure 78 mm[Hg] No Primary Care Physician [facility] 11-08-2024 08:26-0500 Heart rate 64 /min No Primary Care Physician [facility] 11-08-2024 08:26-0500 Respiratory rate 18 /min No Primary Care Physician [facility] 11-08-2024 08:26-0500 SaO2% (BldA) [Mass fraction] 98 % No Primary Care Physician [facility] 11-08-2024 08:26-0500 Systolic blood pressure 132 mm[Hg] No Primary Care Physician [facility] 11-05-2024 09:43-0500 Body mass index (BMI) [Ratio] 18 kg/m2 No Primary Care Physician [facility] 11-05-2024 09:43-0500 Body temperature 97.2 [degF] No Primary Care Physician [facility] 11-05-2024 09:43-0500 Body weight 53.97 kg No Primary Care Physician [facility] 11-05-2024 09:43-0500 Diastolic blood pressure 70 mm[Hg] No Primary Care Physician [facility] 11-05-2024 09:43-0500 Heart rate 62 /min No Primary Care Physician [facility] 11-05-2024 09:43-0500 Respiratory rate 16 /min No Primary Care Physician [facility] 11-05-2024 09:43-0500 SaO2% (BldA) [Mass fraction] 99 % No Primary Care Physician [facility] 11-05-2024 09:43-0500 Systolic blood pressure 128 mm[Hg] No Primary Care Physician [facility] 11-03-2024 08:58-0500 Body mass index (BMI) [Ratio] 17.9 kg/m2 No Primary Care Physician [facility] 11-03-2024 08:58-0500 Body temperature 97.3 [degF] No Primary Care Physician [facility] 11-03-2024 08:58-0500 Body weight 53.6 kg No Primary Care Physician [facility] 11-03-2024 08:58-0500 Diastolic blood pressure 82 mm[Hg] No Primary Care Physician [facility] 11-03-2024 08:58-0500 Heart rate 52 /min No Primary Care Physician [facility] 11-03-2024 08:58-0500 Respiratory rate 16 /min No Primary Care Physician [facility] 11-03-2024 08:58-0500 SaO2% (BldA) [Mass fraction] 100 % No Primary Care Physician [facility] 11-03-2024 08:58-0500 Systolic blood pressure 141 mm[Hg] No Primary Care Physician [facility] 10-29-2024 11:02-0500 Body height 172.7 cm Hilary Lewis MD Work Phone: [facility] 10-29-2024 11:02-0500 Body mass index (BMI) [Ratio] 17.33 kg/m2 Hilary Lewis MD Work Phone: [facility] 10-29-2024 11:02-0500 Body weight 51.71 kg Hilary Lewis MD Work Phone: [facility] 10-29-2024 11:02-0500 Diastolic blood pressure 86 mm[Hg] Hilary Lewis MD Work Phone: [facility] 10-29-2024 11:02-0500 Heart rate 58 /min Hilary Lewis MD Work Phone: [facility] 10-29-2024 11:02-0500 Systolic blood pressure 129 mm[Hg] Hilary Lewis MD Work Phone: [facility] 10-22-2024 14:12-0500 Body height 172.7 cm Greg Mason MD Work Phone: [facility] 10-22-2024 14:12-0500 Body mass index (BMI) [Ratio] 17.03 kg/m2 Greg Mason MD Work Phone: [facility] 10-22-2024 14:12-0500 Body weight 50.8 kg Greg Mason MD Work Phone: [facility] 10-22-2024 14:12-0500 Heart rate 65 /min Greg Mason MD Work Phone: [facility] 10-22-2024 14:12-0500 SaO2% (BldA) [Mass fraction] 99 % Greg Mason MD Work Phone: [facility] 10-18-2024 07:28-0500 Body temperature 98.4 [degF] Hilary Lewis MD Work Phone: [facility] 10-18-2024 07:28-0500 Diastolic blood pressure 78 mm[Hg] Hilary Lewis MD Work Phone: [facility] 10-18-2024 07:28-0500 Heart rate 50 /min Hilary Lewis MD Work Phone: [facility] 10-18-2024 07:28-0500 Respiratory rate 14 /min Hilary Leiws MD Work Phone: [facility] 10-18-2024 07:28-0500 SaO2% (BldA) [Mass fraction] 97 % Hilary Lewis MD Work Phone: [facility] 10-18-2024 07:28-0500 Systolic blood pressure 128 mm[Hg] Hilary Lewis MD Work Phone: [facility] 10-11-2024 23:23-0500 Body height 172.7 cm Hilary Lewis MD Work Phone: [facility] 10-11-2024 23:23-0500 Body mass index (BMI) [Ratio] 16.48 kg/m2 Hilary Lewis MD Work Phone: [facility] 10-11-2024 23:23-0500 Body weight 49.17 kg Hilary Lewis MD Work Phone: [facility] 10-06-2024 15:54-0500 Diastolic blood pressure 80 mm[Hg] Shruthi Welch DRIVER MESSENGER-HOOK AND EYE SEWING MACHINE OPERATOR Work Phone: [facility] 10-06-2024 15:54-0500 Heart rate 84 /min Shruthi Welch DRIVER MESSENGER-HOOK AND EYE SEWING MACHINE OPERATOR Work Phone: [facility] 10-06-2024 15:54-0500 Systolic blood pressure 151 mm[Hg] Shruthi Welch DRIVER MESSENGER-HOOK AND EYE SEWING MACHINE OPERATOR Work Phone: [facility] 10-01-2024 08:46-0500 Body mass index (BMI) [Ratio] 17.2 kg/m2 No Primary Care Physician [facility] 09-01-2024 14:27-0500 Body height 172.7 cm Hilary Lewis MD Work Phone: [facility] 09-01-2024 14:27-0500 Body mass index (BMI) [Ratio] 17.49 kg/m2 Hilary Lewis MD Work Phone: [facility] 09-01-2024 14:27-0500 Body weight 52.16 kg Hilary Lewis MD Work Phone: 9(734)994-319578 [place] [address] 09-01-2024 14:27-0500 Diastolic blood pressure 70 mm[Hg] Hilary Lewis MD Work Phone: 8(456)438-676078 [place] [address] 09-01-2024 14:27-0500 Heart rate 48 /min Hilary Lewis MD Work Phone: 9(188)993-984978 [place] [address] 09-01-2024 14:27-0500 Systolic blood pressure 117 mm[Hg] Hilary Lewis MD Work Phone: 9(198)458-482178 [place] [address] 06-25-2024 12:20-0400 Diastolic blood pressure 88 mm[Hg] Hilary Lewis MD Work Phone: 4(766)041-183578 [place] [address] 06-25-2024 12:20-0400 Heart rate 58 /min Hilary Lewis MD Work Phone: 2(026)518-976178 [place] [address] 06-25-2024 12:20-0400 Respiratory rate 15 /min Hilary Lewis MD Work Phone: 1(238)674-313978 [place] [address] 06-25-2024 12:20-0400 SaO2% (BldA) [Mass fraction] 96 % Hilary Lewis MD Work Phone: 4(886)289-036878 [place] [address] 06-25-2024 12:20-0400 Systolic blood pressure 126 mm[Hg] Hilary Lewis MD Work Phone: 6(543)168-235878 [place] [address] 06-25-2024 12:07-0400 Body temperature 98.2 [degF] Hilary Lewis MD Work Phone: 9(005)718-660978 [place] [address] 06-25-2024 10:25-0400 Body height 172.7 cm Hilary Lewis MD Work Phone: 2(192)426-510178 [place] [address] 06-25-2024 10:25-0400 Body mass index (BMI) [Ratio] 19.19 kg/m2 Hilary Lewis MD Work Phone: [facility] 06-25-2024 10:25-0400 Body weight 57.24 kg Hilary Lewis MD Work Phone: [facility] 05-20-2024 13:38-0400 Body height 172.7 cm Hilary Lewis MD Work Phone: 7(761)648-611681 [address] 05-20-2024 13:38-0400 Body mass index (BMI) [Ratio] 18.55 kg/m2 Hilary Lewis MD Work Phone: 0(790)263-143081 [address] 05-20-2024 13:38-0400 Body weight 55.34 kg Hilary Lewis MD Work Phone: 0(271)013-809381 [address] 05-20-2024 13:38-0400 Diastolic blood pressure 72 mm[Hg] Hilary Lewis MD Work Phone: [facility] 05-20-2024 13:38-0400 Heart rate 49 /min Hilary Lewis MD Work Phone: 7(752)838-794081 [address] Comment on above: thinks it could be the medication he on, he feels normal 05-20-2024 13:38-0400 Systolic blood pressure 134 mm[Hg] Hilary Lewis MD Work Phone: 8(343)566-883481 [address] 05-20-2024 12:03-0400 Diastolic blood pressure 77 mm[Hg] Hilary Lewis MD Work Phone: 5(883)347-806981 [address] 05-20-2024 12:03-0400 Heart rate 51 /min Hilary Lewis MD Work Phone: [facility] 05-20-2024 12:03-0400 Systolic blood pressure 125 mm[Hg] Hilary Lewis MD Work Phone: 8(507)874-764881 [address] 05-12-2024 08:17-0400 Body height 172.7 cm Anjali Denton APRN-HOOK AND EYE SEWING MACHINE OPERATOR Work Phone: [facility] 05-12-2024 08:17-0400 Body mass index (BMI) [Ratio] 17.55 kg/m2 Anjali Denton DRIVER MESSENGER-HOOK AND EYE SEWING MACHINE OPERATOR Work Phone: [facility] 05-12-2024 08:17-0400 Body weight 52.34 kg Anjali Denton DRIVER MESSENGER-HOOK AND EYE SEWING MACHINE OPERATOR Work Phone: [facility] 05-12-2024 08:17-0400 Heart rate 73 /min Anjali Denton APRN-HOOK AND EYE SEWING MACHINE OPERATOR Work Phone: [facility] 05-12-2024 08:17-0400 SaO2% (BldA) [Mass fraction] 98 % Anjali Denton APRN-HOOK AND EYE SEWING MACHINE OPERATOR Work Phone: [facility] 05-09-2024 11:24-0400 Body temperature 97.9 [degF] Hilary Lewis MD Work Phone: [facility] 05-09-2024 11:24-0400 Diastolic blood pressure 64 mm[Hg] Hilary Lewis MD Work Phone: [facility] 05-09-2024 11:24-0400 Heart rate 81 /min Hilary Lewis MD Work Phone: [facility] 05-09-2024 11:24-0400 Respiratory rate 16 /min Hilary Lewis MD Work Phone: [facility] 05-09-2024 11:24-0400 SaO2% (BldA) [Mass fraction] 97 % Hilary Lewis MD Work Phone: [facility] 05-09-2024 11:24-0400 Systolic blood pressure 129 mm[Hg] Hilary Lewis MD Work Phone: [facility] 05-03-2024 15:50-0400 Body mass index (BMI) [Ratio] 17.74 kg/m2 Hilary Lewis MD Work Phone: [facility] 05-03-2024 15:50-0400 Body weight 52.94 kg Hilary Lewis MD Work Phone: [facility] 04-30-2024 14:00-0400 Body height 172.7 cm Hilary Lewis MD Work Phone: [facility] 04-30-2024 13:00-0400 Diastolic blood pressure 77 mm[Hg] Kj Martinez MD Work Phone: [facility] 04-30-2024 13:00-0400 Heart rate 67 /min Kj Martinez MD Work Phone: 6(625)779-431721 [place] [address] 04-30-2024 13:00-0400 Respiratory rate 21 /min Kj Martinez MD Work Phone: [facility] 04-30-2024 13:00-0400 SaO2% (BldA) [Mass fraction] 93 % Kj Martinez MD Work Phone: [facility] 04-30-2024 13:00-0400 Systolic blood pressure 142 mm[Hg] Kj Martinez MD Work Phone: [facility] 04-29-2024 20:00-0400 Body temperature 99.1 [degF] Kj Martinez MD Work Phone: [facility] 04-29-2024 00:06-0400 Body height 172.7 cm Kj Martinez MD Work Phone: [facility] 11-26-2023 15:04-0500 Body height 172.72 cm Gregoria Cummings [facility] 11-26-2023 15:04-0500 Body mass index (BMI) [Ratio] 22.2 kg/m2 Gregoria Cummings RN [facility]. 11-26-2023 15:04-0500 Body surface area Derived from formula 1.79 m2 Gregoria Cummings RN [facility] 11-26-2023 15:04-0500 Body temperature 98.2 [degF] Greg[facility] Cummings [facility] Comment on above: Method: Oral 11-26-2023 [id number] Body weight 66.23 kg Gregoria Cummings [facility]. 11-26-2023 15:04-0500 Diastolic blood pressure 84 mm[Hg] Gregoria Cummings RN [facility]. Comment on above: Patient Position: Sitting; Cuff Location : Left Arm; Cuff Size: Large 11-26-2023 15:04-0500 Heart rate 56 /min Gregoria Cummings [facility]. Comment on above: Pattern: Regular 11-26-2023 15:04-0500 Systolic blood pressure 153 mm[Hg] Gregoria Cummings RN [facility]. Comment on above: Patient Position: Sitting; Cuff Location : Left Arm; Cuff Size: Large 10-17-2023 15:03-0500 Body height 172.72 cm ELLY BENOIT Work Phone: [facility]; [facility] 10-17-2023 15:03-0500 Body mass index (BMI) [Ratio] 22.5 kg/m2 ELLY CASTELLON-Claire Work Phone: [facility] [employer] [facility]. 10-17-2023 15:03-0500 Body surface area Derived from formula 1.8 m2 ELLY MAGDAMAGALISHUSSEINER MANAGER MERCHANDISING-C Work Phone: [facility] [employer] [facility].; [facility]. 10-17-2023 15:03-0500 Body temperature 98.3 [degF] ELLY LOVETETTER MANAGER MERCHANDISING-C Work Phone: [facility] [employer] [facility] [employer] [facility]. Comment on above: Method: Oral 10-17-2023 15:03-0500 Body weight 67.13 kg ELLY IVANCRUZHUSSEINER MANAGER MERCHANDISING-C [facility]: [facility].; [facility] [employer] [facility]. 10-17-2023 15:03-0500 Diastolic blood pressure 100 mm[Hg] ELLY MANARGENISTETTER MANAGER MERCHANDISING-C Work Phone: [facility] [employer] [facility].; [facility] [employer] [facility]. Comment on above: Patient Position: Sitting; Cuff Location : Left Arm; Cuff Size: Large 10-17-2023 15:03-0500 Heart rate 68 /min ELLY BELLAMY MANAGER MERCHANDISING-C Work Phone: [facility] [employer] [facility]; [facility] [employer] [facility]. Comment on above: Pattern: Regular 10-17-2023 15:03-0500 Systolic blood pressure 168 mm[Hg] ELLY LOVETEHUSSEINER MANAGER MERCHANDISING-C Work Phone: [facility].; [facility] [employer] [facility]. Comment on above: Patient Position: Sitting; Cuff Location : Left Arm; Cuff Size: Large Encounters Encounter Date Encounter Type Care Provider Facility Start: 03-10-2025 End: 03-10-2025 ambulatory Kunal Chandler Facility:[facility] Start: 03-06-2025 End: 03-06-2025 Historical Summary ELLY MANUnited Parents Online LtdTETTER MANAGER MERCHANDISING-C [facility] Start: 03-01-2025 Non-patient / Non-visit Dr. Handy Royal MD [facility] Work Phone: Start: 03-01-2025 Non-patient / Non-visit Rachael Tierney PA-C [facility] Start: 02-28-2025 Non-patient / Non-visit Dr. Handy Royal MD [facility] Work Phone: Start: 02-28-2025 Non-patient / Non-visit Rachael Tierney PA-C [facility] Start: 02-27-2025 Non-patient / Non-visit Dr. Handy Royal MD [facility] Work Phone: Start: 02-27-2025 [facility] / [facility] Start: 02-26-2025 Non-patient / Non-visit Dr. Handy Royal MD [facility] Work Phone: Start: 02-26-2025 Non-patient / [facility] Start: 02-25-2025 Non-patient / Non-visit Dr. Handy Royal MD [facility] Work Phone: Start: 02-25-2025 Non-patient / [facility] Start: 02-24-2025 Non-patient / Non-visit Dr. Kunal Chandler MD [facility] Start: 02-24-2025 End: 02-24-2025 ambulatory No Primary Care Physician Facility:[facility] Start: 02-24-2025 ambulatory Kunal Chandler Facility :[facility] Start: 02-24-2025 End: 03-01-2025 Evaluation and management of inpatient Dr. Handy Royal MD -[facility] Work Phone: Start: 02-22-2025 End: 02-22-2025 Office outpatient visit 25 minutes Greg Mason MD Work Phone: [facility] [place] Comment on above: Ureteral stricture ( Primary Dx) Start: 02-22-2025 ambulatory SELF SELF Facility:[facility] Start: 02-16-2025 ambulatory No Primary Car e Physician Facility:[facility] Start: 02-16-[address] Guy Ho MD -[facility] Start: 02-14-2025 End: 02-14-[address] Guy Ho MD -[facility] Work Phone: Start: 02-14-2025 End: 02-14-2025 ambulatory No Primary Care Physician Facility:[facility] Start: 01-31-2025 End: 01-31-[address] Guy Ho MD -[facility] Work Phone: Start: 01-31-2025 End: 01-31-2025 ambulatory No Primary Care Physician Facility:[facility] Start: 01-17-2025 End: 01-17-[address] Guy Ho MD -[facility] Work Phone: Start: 01-17-2025 End: 01-17-2025 ambulatory No Primary Care Physician Facility:[facility] Start: 01-03-2025 End: 01-03-[address] Guy Ho MD -[facility] Work Phone: Start: 01-03-2025 End: 01-03-2025 ambulatory No Primary Care Physician Facility:[facility] Start: 12-28-2024 End: 12-28-2024 Patient encounter procedure Rubi NGUYEN -[facility] Work Phone: Start: 12-28-2024 End: 12-28-2024 ambulatory No Primary Care Physician Facility:[facility] Start: 12-20-2024 End: 12-20-[address] Rangel Connor MD [facility] Work Phone: Start: 12-20-2024 End: 12-20-2024 ambulatory Rangel Connor Facility:[facility] Start: 12-08-2024 End: 12-09-2024 Historical Summary ELLY BENOIT [facility] Start: 12-08-2024 Review ELLY MURPHYP-C [facility] Start: 12-06-2024 End: 12-06-[address] Rangel Connor MD -[facility] Work Phone: Start: 12-06-2024 End: 12-06-2024 ambulatory Rangel Connor Facility:[facility] Start: 11-22-2024 End: 11-22-2024 Patient encounter procedure Rubi NGUYEN -[facility] Work Phone: Start: 11-22-2024 End: 11-22-2024 ambulatory No Primary Care Physician Facility:[facility] Start: 11-12-2024 End: 11-12-2024 ambulatory INTERVENTIONAL RAD AILEENISSCHEDDEVI Facility:[facility] Start: 11-10-2024 ambulatory Enrique Eugeneori Facility:[facility] Start: 11-10-2024 Non-patient / Non-visit [facility] Enrique Romero MD [facility] Start: 11-10-2024 End: 11-10-[address] Enrique Romero MD -[facility] Work Phone: Start: 11-10-2024 End: 11-10-2024 ambulatory Enrique Eugeneori Facility:[facility] Start: 11-08-2024 ambulatory Enrique Nick Facility:[facility] Start: 11-08-2024 Non-patient / Non-visit Dr. Enrique Romero MD -[facility] Work Phone: Start: 11-08-2024 End: 11-08-[address] Enrique Romero MD -Pulmonary Services/Neurology Work Phone: Start: 11-08-2024 End: 11-08-[address] Guy Ho MD -[facility] Work Phone: Start: 11-08-2024 End: 11-08-2024 ambulatory No Primary Care Physician Facility:[facility] Start: 11-08-2024 End: 11-08-2024 ambulatory [facility] Facility:[facility] Start: 11-05-2024 End: 11-05-[address] Enrique Romero MD -[facility] Work Phone: Start: 11-05-2024 End: 11-05-2024 ambulatory No Primary Care Physician Facility:[facility] Start: 11-03-2024 End: 11-03-2024 Patient encounter procedure Rubi Mercedes BAG FILLER MACHINE OPERATOR-C -[facility] Work Phone: Start: 11-03-2024 End: 11-03-2024 ambulatory No Primary Care Physician Facility:[facility] Start: 10-29-2024 End: 10-29-2024 Office outpatient visit 15 minutes Hilary Lewis MD Work Phone: [facility] [place] Comment on above: Malignant neoplasm o f rectum (Primary Dx) Start: 10-29-2024 ambulatory SELF SELF Facility:[facility] Start: 10-22-2024 End: 10-22-2024 Office outpatient visit 25 minutes Greg Mason MD Work Phone: [facility] [place] Comment on above: 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); Ureteral stricture Start: 10-22-2024 ambulatory GREG MASON Facility: [facility] Start: 10-11-2024 End: 10-18-2024 Evaluation and management of inpatient Hilary Lewis MD Work Phone: [email or web address] Comment on above: Dehydration Start: 10-11-2024 End: 10-11-2024 Emergency department patient visit No Primary Care Physician Facility:[facility] Start: 10-11-2024 End: 10-11-2024 ambulatory Elly Bellamy NP Facility:[facility] Start: 10-06-2024 ambulatory SELF SELF Facility:[facility] Start: 10-06-2024 End: 10-06-2024 Subsequent hospital visit by physician Shruthi KOVACS Work Phone: [facility] at [facility] Comment on above: Arrived Start: 09-27-2024 End: 09-27-2024 ambulatory Elly Bellamy NP Facility:[facility] Start: 09-13-2024 End: 09-13-2024 ambulatory Elly Hofstetter BAG FILLER MACHINE OPERATOR Facility:[facility] Start: 09-01-2024 End: 09-30-2024 Office outpatient visit 15 minutes Hilary Lewis MD Work Phone: [facility] [place] Comment on above: Malignant neoplasm o f rectum (Primary Dx) Start: 09-01-2024 ambulatory SELF SELF Facility:[facility] Start: 08-17-2024 End: 08-17-2024 ambulatory Ambrose Leija Facility:[facility] Start: 08-16-2024 End: 08-16-2024 ambulatory Elly Hoargenistetter BAG FILLER MACHINE OPERATOR Facility:[facility] Start: 08-11-2024 End: 08-11-2024 ambulatory Abmrose Leija Facility:[facility] Start: 08-09-2024 End: 08-09-2024 ambulatory Elly Hofstetter BAG FILLER MACHINE OPERATOR Facility:[facility] Start: 08-04-2024 End: 08-04-2024 ambulatory Ambrose Leija Facility:[facility] Start: 08-02-2024 End: 08-02-2024 ambulatory Guy Ho Facility:[facility] Start: 07-28-2024 End: 07-28-2024 ambulatory Ambrose Leija Facility:[facility] Start: 07-26-2024 End: 07-26-2024 ambulatory Elly Hofstetter BAG FILLER MACHINE OPERATOR Facility:[facility] Start: 07-21-2024 End: 07-21-2024 ambulatory Elly Hofstetter BAG FILLER MACHINE OPERATOR Facility:[facility] Start: 07-19-2024 End: 07-19-2024 ambulatory Elly Hofstetter BAG FILLER MACHINE OPERATOR Facility:[facility] Start: 07-15-2024 ambulatory Elly Hofstetter BAG FILLER MACHINE OPERATOR F acility:[facility] Start: 07-15-2024 End: 07-15-2024 ambulatory Elly Hofstetter BAG FILLER MACHINE OPERATOR Facility:[facility] Start: 07-14-2024 End: 07-14-2024 ambulatory Ambrose Leija Facility:[facility] Start: 07-13-2024 End: 07-13-2024 ambulatory Kunal Chandler Facility:[facility] Start: 07-12-2024 End: 07-12-2024 ambulatory No Primary Care Physician Facility:[facility] Start: 07-08-2024 ambulatory Ambrose Leija Facility: [facility] Start: 07-06-2024 End: 07-06-2024 ambulatory Guy Ho Facility:[facility] Start: 06-30-2024 ambulatory Ambrose [place] Facility: [facility] Start: 06-29-2024 End: 06-29-2024 ambulatory No Primary Care Physician Facility:[facility] Start: 06-25-2024 End: 06-25-2024 ambulatory HILARY LEWIS Facility:[facility] Start: 06-25-2024 End: 06-25-2024 Subsequent hospital visit by physician Hilary Lewis MD Work Phone: [facility] Comment on above: Malignant neoplasm o f rectum Start: 06-24-2024 End: 06-24-2024 ambulatory No Primary Care Physician Facility:[facility] Start: 06-22-2024 ambulatory SELF SELF Facility:[facility] Start: 06-22-2024 Encounter for other preprocedural examination SELF SELF Facility:[facility] Start: 06-09-2024 End: 06-09-2024 ambulatory No Primary Care Physician Facility:[facility] Start: 06-08-2024 ambulatory No Primary Car e Physician Facility:[facility] Start: 05-26-2024 ambulatory HILARY LEWIS Facility :[facility] Start: 05-20-2024 End: 06-18-2024 Office outpatient visit 25 minutes Hilary Lewis MD Work Phone: [facility] [place] Comment on above: Malignant neoplasm o f rectum (Primary Dx) Start: 05-20-2024 ambulatory SELF SELF Facility:[facility] Start: 05-20-2024 ambulatory HILARY ELWIS Facility :[facility] Start: 05-20-2024 End: 05-20-2024 Subsequent hospital visit by physician Hilary Lewis MD Work Phone: [facility] at [facility] Comment on above: Arrived Start: 05-12-2024 ambulatory ANJALI DENTON Facil ity:[facility] Start: 05-12-2024 End: 05-12-2024 Office outpatient new 45 minutes Anjali Denton DRIVER MESSENGER-HOOK AND EYE SEWING MACHINE OPERATOR Work Phone: [facility] [place] Comment on above: Urinary retention (P rimary Dx) Start: 04-30-2024 End: 05-09-2024 Evaluation and management of inpatient Hilary Lewis MD Work Phone: c12[facility] Comment on above: Colon cancer Start: 04-29-2024 ambulatory SELF SELF Facility:[facility]ONT[facility] Start: 04-28-2024 End: 04-30-2024 Emergency department patient visit Kj Martinez MD Work Phone: [facility] Start: 04-28-2024 End: 04-28-2024 Emergency department patient visit No Primary Care Physician Facility:[facility] Start: 03-18-2024 End: 03-18-2024 Historical Summary ELLY BELLAMY MANAGER MERCHANDISING-C Work Phone: [employer] [facility] Start: 03-11-2024 End: 03-11-2024 ambulatory [facility] Start: 02-25-2024 End: 02-25-2024 ambulatory [facility] Start: 11-28-2023 Review ELLY CAMARGO MANAGER MERCHANDISING-C Work Phone: [employer] Start: 11-26-2023 End: 11-26-2023 Office outpatient visit 10 minutes ELLY BELLAMY MANAGER MERCHANDISING-C Work Phone: [employer] [facility] [employer] [facility] [employer]. Start: 11-09-2023 End: 11-09-2023 Emergency department patient visit STEPHANIE ROUSSEAU [facility] Start: 11-05-2023 End: 11-05-2023 Medication Refill/Order ELLY DAWSONER MANAGER MERCHANDISING-C Work Phone: [employer] ?[employer]?? [facility]. Start: 10-23-2023 End: 10-23-2023 Medication Refill/Order ELLY LOVETETTER MANAGER MERCHANDISING-C Work Phone: [employer]. Start: 10-22-2023 End: 10-22-2023 ambulatory ELLY BAG FILLER MACHINE OPERATOR [facility] Start: 10-17-2023 End: 10-17-2023 Office outpatient visit 10 minutes ELLY BELLAMY CY Work Phone: [facility] Procedures Date Procedure Procedure Detail Performing Clinician [...] Comment on above: Performed By: #### U [id number] #### [facility] ([facility]) [address] [place] [address] Start: 10-17-2024 Blood typing serologic abo Kori [...] Work Phone: Start: 10-13-2024 Assay of magnesium Eldaio Jasso MD Work Phone: Start: 10-12-2024 Plmt [...] Performed By: #### X M #### [facility] ([facility]) [address] [place] [id number] Start: 10-12-2024 End: 10-12-2024 Assay of magnesium Kevan azul MD Work Phone: Start: 10-12-2024 Blood typing serologic abo Kvean Jasso MD Work Phone: Start: 10-12-2024 CBC [...] Care Physician Start: 05-09-2024 Electrolyte panel Gabriele Felipe MD Work Phone: Start: 05-08-2024 Creatinine blood [...] meds reconciled w/current med list ELLY BELLAMY MANAGER MERCHANDISING-C Work Phone: colostomy 03/2024 Randall PENNY MD Work Phone: Comment on above: [place]; invasive mod erately differentiated adeno colostomy 03/2024 Randall PENNY MD Work Phone: Comment on above: [place]; 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) Plan of Treatment Date Care Activity Detail Author Start: 06-20-2025 Influenza vaccination INFLUENZA VACCINE (Season Ended) [facility] Start: 04-04-2025 End: 04-04-2025 Patient encounter procedure [facility] Start: 03-01-2025 Patient discharge [facility] Start: 02-26-2025 [facility] Start: 02-26-2025 [facility] Start: 02-26-2025 [facility] Start: 02-25-2025 Consultation for treatment [facility] Start: 02-24-2025 Venous catheter care management [facility] Start: 02-24-2025 Assessment of risk of venous thromboembolism [facility] Start: 02-24-2025 Insertion of catheter into peripheral vein [facility] Start: 02-24-2025 Measuring intake and output [facility] Start: 02-24-2025 Providing care according to standard [facility] Start: 02-24-2025 Referral to general surgeon [facility] Start: 02-24-2025 Referral to occupational therapist [facility] Start: 02-24-2025 Referral to service [facility] Start: 02-24-2025 [facility] Start: 02-24-2025 Serum inorganic phosphate measurement [facility] Start: 02-24-2025 Admission procedure [facility] Start: 02-24-2025 Hospital admission, emergency, from emergency room, medical nature [facility] Start: 02-24-2025 [facility] Start: 02-24-2025 Patient referral to dietitian [facility] Start: 02-24-2025 [facility] Start: 02-14-2025 Vital signs measurements [facility] Start: 02-01-2025 End: 02-01-2025 Patient encounter procedure 02/01/2025 2:20 PM EDT Office Visit [facility] [address] [facility] [address] [place] [address] Greg Mason MD [address] [place] [address] [address] [place] [address] [facility] Start: 01-31-2025 Vital signs measurements [facility] Start: 01-17-2025 Vital signs measurements [facility] Start: 01-03-2025 Vital signs measurements [facility] Start: 12-20-2024 Vital signs measurements [facility] Start: 12-06-2024 Vital signs measurements [facility] Start: 11-22-2024 Vital signs measurements [facility] Start: 11-08-2024 Vital signs measurements [facility] Start: 11-05-2024 Evaluation of diagnostic study results [facility] Start: 11-03-2024 Patient referral [facility] Work Phone: Start: 10-29-2024 End: 10-29-2025 Flexible sigmoidoscopy FLEXIBLE SIGMOIDOSCOPY GI/Bronch Routine Malignant neoplasm of rectum Expected: 10/29/2024, Expires: 10/29/2025 [facility] Comment on above: Expected: 10/29/2024, Expires: Start: 10-29-2024 End: 10-29-2024 Patient encounter procedure 10/29/2024 11:30 AM EST Office Visit [facility] [place] [address] [place] [address] Hilary Lewis MD [address] [facility] [address] [place] [address] [facility] [place] Start: 10-25-2024 End: 10-18-2025 Cardiac event recording EVENT MONITOR, CARDIAC ECG Routine Hydronephrosis, unspecified hydronephrosis type Malignant neoplasm of colon, unspecified part of colon Expected: 10/25/2024 (Approximate), Expires: 10/18/2025 [facility] Work Phone: Comment on above: Expected: 10/25/2024 (Approximate), Expi res: 10/18/2025 Start: 10-22-2024 End: 10-22-2024 Patient encounter procedure 10/22/2024 2:20 PM EST Office Visit [facility] [place] [address] [place] [phone] Greg Mason MD [address] [facility] [address] [place] [address] [facility] [place] Start: 10-21-2024 End: 10-21-2024 Telemedicine consultation with patient 10/21/2024 2:00 PM EST Telemedicine [facility] [place] [address] [place] [phone] Hilary Lewis MD [address] [place] [phone] [facility] [place] Start: 10-06-2024 Subsequent hospital visit by physician 10/06/2024 4:20 PM EST Hospital Encounter Imaging at [facility] [address] [place] [phone] Shruthi Welch, DRIVER MESSENGER-ELIAS [address] [place] [address] [facility] at [facility] Start: 09-28-2024 Administration of blood product [facility] Start: 09-28-2024 [facility] Start: 09-01-2024 End: 09-01-2024 Patient encounter procedure 09/01/2024 2:30 PM EST Office Visit [facility] [place] [address] [place] [phone] Hilary Lewis MD [address] [place] [phone] [facility] [place] Start: 09-01-2024 End: 09-01-2025 MR Pelvis WO and W contrast IV MRI RECTUM WITHOUT AND WITH CONTRAST Imaging Routine Malignant neoplasm of rectum Expected: 09/01/2024, Expires: 09/01/2025 [facility] Comment on above: Expected: 09/01/2024, Expires: Start: 08-09-2024 End: 08-09-2024 Patient encounter procedure 08/09/2024 9:15 AM EDT Appointment [facility] [address] [facility] [place] [address] Hilary Lewis MD [address] [place] [address] [facility] Start: 07-26-2024 Venous catheter care management [facility] Start: 06-25-2024 End: 06-25-2024 Admission to same day surgery center 06/25/2024 12:06 PM EDT - 06/25/2024 12:38 PM EDT [facility] [address] [place] [phone] Hilary Lewis MD [address] [place] [phone] SIGMOIDOSCOPY DIAGNOSTIC [facility] Comment on above: SIGMOIDOSCOPY DIAGNOSTIC Start: 06-25-2024 End: 06-25-2024 Sigmoidoscopy flx dx w/collj spec br/wa if pfrmd [facility] Start: 06-25-2024 Subsequent hospital visit by physician 06/25/2024 10:00 AM EDT Hospital Encounter [facility] [address] [place] [phone] Hilary Lewis MD [address] [place] [phone] Malignant neoplasm of rectum [facility] Comment on above: Malignant neoplasm of rectum Start: 06-22-2024 End: 06-22-2024 ambulatory 06/22/2024 10:00 AM EDT Pre-Operative Nurse Assessment Telehealth Pre Procedure Preparation [address] [place] [address] Bonnie Nicolas, FERNANDO Telehealth Pre Procedure Preparation Start: 06-20-2024 COVID-19 VACCINE ( season) COVID-19 VACCINE () [facility] Start: 06-20-2024 COVID-19 VACCINE () COVID-19 VACCINE () [facility] Start: 06-20-2024 Influenza vaccination INFLUENZA VACCINE (#1) [facility] Start: 05-20-2024 End: 05-04-2025 CT Abdomen and Pelvis W contrast IV [facility] Work Phone: Comment on above: Expected: 05/20/2024 (Approximate), Expi res: 05/04/2025 1 Occurrences starti ng 05/20/2024 until 05/20/2024 Start: 05-20-2024 End: 05-20-2024 Patient encounter procedure 05/20/2024 1:45 PM EDT Office Visit [facility] [place] [address] [facility] [address] [place] [address] Hilary Lewis MD [address] [place] [address] [facility] [place] Start: 05-20-2024 End: 05-20-2024 Patient encounter procedure [facility] [place] Start: 05-12-2024 End: 05-12-2024 Clinical Support Encounter 05/12/2024 8:00 AM EDT Clinical Support Encounter [facility] [place] [address] [facility] [address] [place] [address] Anjali Denton, DRIVER MESSENGER-HOOK AND EYE SEWING MACHINE OPERATOR [address] [facility] [address] [place] [phone] [facility] [place] [facility] Start: 10-17-2023 Cul bact stool aerobic isol salmonella&shigell STOOL-ROSANGELA CULTURE (49169) Start: 17-Oct-2023 15:58 Request [employer] [facility] [employer]. Start: 10-17-2023 Ova&parasites direct smears concentration & id OVA & PARASITE DIR SMEAR ([id number]) Start: 17-Oct-2023 15:58 Request [employer] [facility] [employer]. Start: 10-17-2023 Iaad ia cryptosporidium CRYPTOSPORIDUM/GIARDI, INFCT ANTIGEN (47810) Start: 17-Oct-2023 15:58 Request [employer] [facility] [employer]. Start: 10-17-2023 Iaad ia clostridium difficile toxin C DIFF TOXIN A+B, EIA (74406) Start: 17-Oct-2023 15:58 Request [employer] [facility] [employer]. Start: 06-20-2023 COVID-19 VACCINE ( season) COVID-19 VACCINE ( season) [facility] Start: 2020 Prostate specific antigen measurement PROSTATE CANCER SCREENING DISCUSSION [facility] Start: 12-31-2015 Pneumococcal vaccination PNEUMOCOCCAL VACCINE SERIES (1 of 1 - PCV) [facility] Start: 12-31-2015 Prostate specific antigen measurement PROSTATE CANCER SCREENING DISCUSSION [facility] Start: 12-31-2015 Zoster vaccine hzv live for subcutaneous use ZOSTER (SHINGLES) VACCINE (1 of 2) [facility] Start: 2010 Screening for malignant neoplasm of colon COLORECTAL CANCER SCREENING DISCUSSION [facility] Start: 2005 Lipid panel LIPID SCREENING [facility] Start: 1984 Hepatitis B vaccination HEP B VACCINE (1 of 3 - 19+ 3-dose series) [facility] Start: 1984 Third diphtheria, tetanus and acellular pertussis (DTaP) vaccination TDAP (ADULT) [facility] Start: 1980 HIV screening HIV SCREENING DISCUSSION [facility] Start: 1965 Hepatitis C screening HEPATITIS C VIRUS SCREENING [facility] Start: 1965 Tetanus vaccination TETANUS [facility] End: 04-29-2024 Bacteria identified in Blood by Culture BLOOD CULTURE Microbiology Routine One Time for 1 Occurrences starting 04/29/2024 until 04/29/2024 [facility] Work Phone: Comment on above: One Time for 1 Occurrences starting 04/19 until 04/29/2024 Bacteria identified in Blood by Culture BLOOD CULTURE Microbiology Routine 04/29/2024 1:11 AM EDT [facility] Bacteria identified in Unspecified specimen by Culture BACTERIAL CULTURE AND DIRECT SMEAR, LESION, TISSUE, DEVICE Microbiology STAT 04/29/2024 3:46 AM EDT [facility] Bldr irrigation smpl lavage &/instlj IA BLDR IRRIGATION SMPL LAVAGE &/INSTLJ IA Charge Routine Urinary retention Ordered: 05/12/2024 [facility] Comment on above: Ordered: 05/12/2024 CASE REQUEST DEPARTM ENT USE ONLY INTERVENTIONAL RADIOLOGY CASE REQUEST DEPARTMENT USE ONLY INTERVENTIONAL RADIOLOGY Procedures Routine Hydronephrosis, unspecified hydronephrosis type Malignant neoplasm of colon, unspecified part of colon Ordered: 10/14/2024 [facility] Comment on above: Ordered: 10/14/2024 End: 05-06-2024 DRAINAGE BY CATHETER PERITONEAL/RETROPERITON EAL PERCUTANEOUS W/ IMAGIN [facility] Work Phone: Comment on above: One Time for 1 Occurrences starting 04/19 until 05/06/2024 Exchange nephrostomy catheter prq w/img gid rs&i EXCHANGE NEPHROSTOMY CATHETER PERCUTANEOUS W/ IMAGE GUIDANCE Hydronephrosis, unspecified hydronephrosis type Malignant neoplasm of colon, unspecified part of colon [facility] Exchange nephrostomy catheter prq w/img gid rs&i EXCHANGE NEPHROSTOMY CATHETER PERCUTANEOUS W/ IMAGE GUIDANCE Ureteral stricture [facility] Magnesium [facility] post-voiding residual urine&/bladder cap IA JESUS POST-VOIDING RESIDUAL URINE&/BLADDER CAP IA Charge Routine Urinary retention Ordered: 05/12/2024 [facility] Comment on above: Ordered: 05/12/2024 End: 10-06-2024 MR Pelvis WO and W contrast IV [facility] Comment on above: 1 Occurrences starting 10/06/2024 until 10/06/2024 End: 05-05-2024 ORDERS (SCANNED) ORDERS (SCANNED) Procedures One Time for 1 Occurrences starting 05/05/2024 until 05/05/2024 [facility] Comment on above: One Time for 1 Occurrences starting 04/19 until 05/05/2024 Patient referral [facility] Work Phone: IA REMOVE CISNEROS CATHETER IA REMOVE CISNEROS CATHETER IA - OFFICE PERFORMED Routine Urinary retention Ordered: 05/12/2024 [facility] Comment on above: Ordered: 05/12/2024 SURG PATH REQUEST [facility] Comment on above: Release Upon Ordering for 1 Occurrences starting 06/25/2024, 1 completed Transfusion of packe d red blood cells TRANSFUSE RED BLOOD CELLS Nursing Routine 10/17/2024 6:57 AM EST [facility] Payers Date Payer Category Payer Unknown [id number] 2024 Unknown [id number] 2024 Self-pay 2022 Unknown [id number] 2022 Unknown [id number] 2022 Unknown [id number] Unknown [id number] 2.16.8 40.1.295087.3.579.2.651 1965 Unknown [id number] 2.16.8 40.1.958442.3.579.2.651 1965 Unknown [id number] 2.16.8 40.1.121950.3.579.2.651 1965 Unknown [id number] 2.16. 840.1.863933.3.579.2.594 1965 Unknown [id number] 2.16. 840.1.667405.3.579.2.594 1965 Unknown [id number] 2.16. 840.1.245967.3.579.2.594 1965 Unknown [id number] 2.16. 840.1.961026.3.579.2.594 1965 Unknown [id number] 2.16. 840.1.168094.3.579.2.594 1965 Unknown [id number] 2.16. 840.1.867315.3.579.2.594 Unknown [id number] 2.16.8 40.1.275715.3.579.2.462 Unknown [id number] 2.16.8 40.1.227120.3.579.2.462 Unknown [id number] 2.16.8 40.1.504518.3.579.2.462 Unknown [id number] 2.16.8 40.1.957911.3.579.2.462 Unknown [id number] 2.16.8 40.1.633950.3.579.2.462 Unknown [id number] 2.16.8 40.1.884832.3.579.2.462 Unknown [id number] 2.16.8 40.1.921394.3.579.2.462 Unknown [id number] 2.16.8 40.1.127622.3.579.2.462 Unknown [id number] 2.16.8 40.1.584882.3.579.2.462 Unknown [id number] 2.16.8 40.1.861920.3.579.2.462 Unknown [id number] 2.16.8 40.1.257675.3.579.2.462 Unknown [id number] 2.16.8 40.1.368048.3.579.2.462 Unknown [id number] 2.16.8 40.1.087336.3.579.2.462 Unknown [id number] 2.16.8 40.1.412703.3.579.2.462 Unknown [id number] 2.16.8 40.1.570330.3.579.2.462 Unknown [id number] 2.16.8 40.1.405953.3.579.2.462 Unknown [id number] 2.16.8 40.1.322445.3.579.2.462 Unknown [id number] 2.16.8 40.1.539989.3.579.2.462 Unknown [id number] 2.16.8 40.1.135993.3.579.2.462 Unknown [id number] 2.16.8 40.1.311621.3.579.2.462 Unknown [id number] 2.16.8 40.1.325332.3.579.2.462 Unknown [id number] 2.16.8 40.1.825627.3.579.2.462 Unknown [id number] 2.16.8 40.1.268168.3.579.2.462 Unknown [id number] 2.16.8 40.1.742789.3.579.2.462 Unknown [id number] 2.16.8 40.1.554069.3.579.2.462 Unknown [id number] 2.16.8 40.1.499518.3.579.2.462 Unknown [id number] 2.16.8 40.1.665038.3.579.2.462 Unknown [id number] 2.16.8 40.1.481559.3.579.2.462 Unknown [id number] 2.16.8 40.1.905865.3.579.2.462 Unknown [id number] 2.16.8 40.1.938522.3.579.2.462 Unknown [id number] 2.16.8 40.1.625412.3.579.2.462 Unknown [id number] 2.16.8 40.1.725283.3.579.2.462 Unknown [id number] 2.16.8 40.1.030826.3.579.2.462 Unknown [id number] 2.16.8 40.1.604739.3.579.2.462 Unknown [id number] 2.16.8 40.1.574553.3.579.2.462 Unknown [id number] 2.16.8 40.1.949743.3.579.2.462 Unknown [id number] 2.16.8 40.1.720253.3.579.2.462 Unknown [id number] 2.16.8 40.1.420455.3.579.2.462 Unknown [id number] 2.16.8 40.1.317071.3.579.2.462 Unknown [id number] 2.16.8 40.1.658666.3.579.2.462 Unknown [id number] 2.16.8 40.1.263597.3.579.2.462 Unknown [id number] 2.16.8 40.1.767771.3.579.2.462 Unknown [id number] 2.16.8 40.1.762843.3.579.2.462 Unknown [id number] 2.16.8 40.1.692771.3.579.2.462 Unknown [id number] 2.16.8 40.1.857666.3.579.2.462 Unknown [id number] 2.16.8 40.1.964025.3.579.2.462 Unknown [id number] 2.16.8 40.1.396784.3.579.2.462 Unknown [id number] 2.16.8 40.1.515920.3.579.2.462 Unknown [id number] 2.16.8 40.1.771905.3.579.2.462 Unknown [id number] 2.16.8 40.1.071723.3.579.2.462 Unknown [id number] 2.16.8 40.1.675449.3.579.2.462 Unknown [id number] 2.16.8 40.1.475828.3.579.2.462 Unknown [id number] 2.16.8 40.1.110167.3.579.2.462 Unknown [id number] 2.16.8 40.1.914045.3.579.2.462 Unknown [id number] 2.16.8 40.1.880543.3.579.2.462 Unknown [id number] 2.16.8 40.1.108392.3.579.2.462 Unknown [id number] 2.16.8 40.1.640529.3.579.2.462 Unknown [id number] 2.16.8 40.1.055644.3.579.2.462 Unknown [id number] 2.16.8 40.1.209590.3.579.2.462 Social History Date Type Detail Facility Alcohol Use: Alcohol Use: ; N o [facility] [employer] Start: 04-29-2024 End: 10-14-2024 Most Recent Primary Occupation Most Recent Primary [facility]ation [facility]; [facility] [employer] [facility] Tobacco use: Tobacco use: ; N ever smoker. [employer] [facility]; [facility] [employer] [facility] Start: 1965 Male [facility] Start: 04-29-2024 End: 02-24-2025 Never smoked tobacco [facility] Start: 04-29-2024 Tobacco use and exposure Smokeless tobacco non-user [facility] Start: 04-29-2024 End: 02-22-2025 Alcoholic beverage intake Ex-drinker (finding) [facility] Start: 04-29-2024 End: 10-14-2024 Tobacco use panel [facility] Start: 1965 Sex assigned at Not on file O [facility] Has the electric, ga s, oil, or water company threatened to shut off services in your home in past 12Mo No [facility] How often to you hav e a drink containing alcohol? Never [facility] How many standard drinks containing alcohol do you have on a typical day? Patient does not drink [facility] (I/We) worried [facility] (my/our) food would run out before (I/we) got money to buy more. Never true [facility] Start: 03-12-2024 Sex Male (finding) [facility] Medical Equipment Procedure Code Equipment Code Equipment Origin al Text Equipment Identifier Dates Insertion, vascular access port ([id number]) Vascular port/catheter [id number] FDA Start: 07-15-2024 Goals Date Patient Goal Desired Activity /State Personal health goal Functional Status Date Assessment Result Facility 03-01-2025 Functional status [facility] Work Phone: 10-11-2024 Are you deaf, or do you have serious difficulty hearing No 10/11/2024 11:23 PM Lakia Chavez, FERNANDO [facility] 10-11-2024 Are you blind, or do you have serious difficulty seeing, even when wearing glasses No 10/11/2024 11:23 PM Lakia Chavez, FERNANDO No [facility] 10-11-2024 Do you have serious difficulty walking or climbing stairs No 10/11/2024 11:23 PM Lakia Chavez, RN No [facility] 10-11-2024 Do you have difficul ty dressing or bathing No 10/11/2024 11:23 PM Lakia Chavez, RN [facility] 10-11-2024 Because of a physica l, mental, or emotional condition, do you have difficulty doing errands alone such as visiting a physician's office or shopping No 10/11/2024 11:23 PM Lakia Chavez, FERNANDO No [facility] Mental Status Date Assessment Result Facility 03-01-2025 Cognitive function Voice/Name [facility] Work Phone: 02-24-2025 Cognitive function Level Of Cons ciousness Awake;Alert;Appropriate;Fol lows Commands [facility] Work Phone: 10-11-2024 Because of a physica l, mental, or emotional condition, do you have serious difficulty concentrating, remembering, or making decisions No 10/11/2024 11:23 PM Lakia Chavez, FERNANDO No [facility] 10-07-2024 Cognitive function Awake;Alert;A ppropriate;Fol lows Commands [facility] Work Phone: 10-01-2024 Cognitive function Arousable To Voice/Nam e [facility] Work Phone: Clinical Notes 04-28-2024 to 03-01-2025 Note Date & Type Note Facility 03-01-2025 Discharge summary [facility] 03-01-2025 Discharge summary [facility] 03-01-2025 Note [facility] 03-01-2025 Discharge summary Note Date/Time March 01, 2025 9:28a m [facility] Medical Records Department [address] [place] [address] Instructions for Home/Discharge Instructions 03/01/25 0900 MR#: [id number] Acct: [id number] Name: ANDREW POSADA Rep #:[id number] : 1965 59 From: Rachael LOWERY PA-C [...] minutes early. Please contact our office at [phone], option #4 for a nurse if you [...] minutes early. Please contact our office at [phone], option #4 for a nurse if you have any questions following discharge. Bring ostomy supplies with you to your follow-up. Below is an example of foods to continue eating at discharge. You may increase diet to regular food after 3 days from discharge date. If you have any questions, please contact our office. Transitional Diet Beverages: ? Soda (cola, diet cola, lemon-pilot point, diet lemon-pilot point, garrett duane, diet garrett duane) ? Tea (hot or iced) ? Milk (low-fat, 2%, lactose free) ? Coffee ? Juice (without pulp) ? Oral Nutrition supplement Breakfast: ? Hot cereal (oatmeal or cream of wheat) ? Scrambled eggs ? Blueberry muffin ? Cold cereal (no whole grain cereals) ? [place] (white) Lunch or Dinner: Deli Items: Hot Items: [place] sandwich Roast [place] Tuna salad (sandwich or alone) Macaroni & [...] Physician,No Primary [Non-Staff] - Elly Bellamy NP, BAG FILLER MACHINE OPERATOR-C [Primary Care Provider] - Kunal Chandler MD [Med Staff - Active Staff] - 03/10/25 9:45 am Disposition Disposition (needs filled in before D/C Order can be placed): Home, Self Care 03/01/25927<Electronically signed by Rachael LOWERY PA-C>Rachael LOWERY PA-C CC: WENDY Bellamy; Dr. 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 Has obvious fat/muscle loss throughout body [...] (Auto) 46.6 L, Lymph % (Auto) 22.3, Bowie % (Auto) 25.5 H, Eos % (Auto) [...] for discharge Charges/Coding Visit Charges Inpatient E&M: 98715 Subs Hosp L1 (post-op) 03/01/25 0859 <Electronically signed by Rachael LOWERY PA-C> Cosigner Signature (if applicable): CC: ~ Signed [facility] Work Phone: 1(395) 776-370805-13-2025 Discharge summary Author Handy Royal [facility] Note Date/Time March 01, 2025 12:45 pm [facility] Medical Records Department [address] [place] [address] Instructions for Home/Discharge Instructions 03/01/25 0841 MR#: [id number] Acct: [id number] Name: ANDREW POSADA Rep #:[id number] : 1965 59 From: Handy Harris PCP: [...] minutes early. Please contact our office at [phone], option #4 for a nurse if you have any questions following discharge. Bring ostomy supplies with you to your follow-up. Below is an example of foods to continue eating at discharge. You may increase diet to regular food after 3 days from discharge date. If you have any questions, please contact our office. Transitional Diet Beverages: ? Soda (cola, diet cola, lemon-pilot point, diet lemon-pilot point, garrett duane, diet garrett duane) ? Tea (hot or iced) ? Milk (low-fat, 2%, lactose free) ? Coffee ? Juice (without pulp) ? Oral Nutrition supplement Breakfast: ? Hot cereal (oatmeal or cream of wheat) ? Scrambled eggs ? Blueberry muffin ? Cold cereal (no whole grain cereals) ? [place] (white) Lunch or Dinner: Deli Items: Hot Items: [place] sandwich Roast [place] Tuna salad (sandwich or alone) Macaroni & [...] Physician,No Primary [Non-Staff] - Elly Bellamy NP BAG FILLER MACHINE OPERATOR-C [Primary Care Provider] - Disposition Disposition (needs filled in before D/C Order can be placed): Home, Self Care 03/01/25 1245<Electronically signed by Handy Royal MD>Handy Royal MD CC: BAG FILLER MACHINE OPERATOR-C Elly Bellamy; Dr. Kunal Chandler MD ~ Signed [facility] Work Phone: 1(171) 544-391405-13-2025 Discharge summary [facility] Medical Records Department [address] [place] [address] Instructions for Home/Discharge Instructions 03/01/25 0900 MR#: [id number] Acct: [id number] Name: ANDREW POSADA Rep #:[id number] : 1965 59 From: Rachael LOWERY PA-C [...] minutes early. Please contact our office at [phone], option #4 for a nurse if you [...] minutes early. Please contact our office at [phone], option #4 for a nurse if you have any questions following discharge. Bring ostomy supplies with you to your follow-up. Below is an example of foods to continue eating at discharge. You may increase diet to regular foodafter 3 days from discharge date. If you have any questions, please contact our office. Transitional Diet Beverages: ? Soda (cola, diet cola, lemon-pilot point, diet lemon-pilot point, garrett duane, diet garrett duane) ? Tea (hot or iced) ? Milk (low-fat, 2%, lactose free) ? Coffee ? Juice (without pulp) ? Oral Nutrition supplement Breakfast: ? Hot cereal (oatmeal or cream of wheat) ? Scrambled eggs ? Blueberry muffin ? Cold cereal (no whole grain cereals) ? [place] (white) Lunch or Dinner: Deli Items: Hot Items: [place] sandwich Roast [place] Tuna salad (sandwich or alone) Macaroni & [...] Physician,No Primary [Non-Staff] - Elly Bellamy NP, BAG FILLER MACHINE OPERATOR-C [Primary Care Provider] - Kunal Chandler MD [Med Staff - Active Staff] - 03/10/25 9:45 am Disposition Disposition (needs filled in before D/C Order can be placed): Home, Self Care 03/01/25 0928Amanda Niall LOWERY PA-C CC: STEPHENC Elyl Bellamy; Dr. 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 Has obvious fat/muscle loss throughout body [...] (Auto) 46.6 L, Lymph % (Auto) 22.3, Bowie % (Auto) 25.5 H, Eos % (Auto) [...] for discharge Charges/Coding Visit Charges Inpatient E&M: 45198 Subs Hosp L1 (post-op) 03/01/25 0859 Cosigner Signature (if applicable): CC: ~ Signed [facility]05-12-2025 Progress note Author Rachael Tierney [facility] Note Date/Time February 28, 2025 4:50p m [facility] Medical Records Department [address] [place] [address] Progress Note - Surgery 02/28/25 0727 MR#: [id number] Acct: [id number] Name: ANDREW POSADA Rep #:[id number] : 1965 59 From: Rachael LOWERY PA-C PCP: WENDY Gonzalez Status:A DM IN Location: MS3 JL255-6 Subjective Subjective Patient evaluated resting comfortably in [...] <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 Has obvious fat/muscle loss throughout body [...] (Auto) 59.6, Lymph % (Auto) 15.3 L, Bowie % (Auto) 19.7 H, Eos % (Auto) [...] discharge tomorrow Charges/Coding Visit Charges Inpatient E&M: 32310 Subs Hosp L1 (no charge; post-op) 02/28/25 [...] Cosigner Signature (if applicable): cc: ~* Signed [facility] Work Phone: 1(207) 289-654205-12-2025 Progress note Author Handy Royal [facility] Note Date/Time February 28, 2025 3:56p m [facility] Medical Records Department [address] [place] [address] Progress Note - Hospitalist 02/28/25 1055 MR#: [id number] Acct: [id number] Name: ANDREW POSADA Rep #:[id number] : 1965 59 From: Handy Harris PCP: WENDY Gonzalez Status:A DM IN Location: MS3 LX602-9 Reason for Visit Reason for Visit: Diagnoses [...] <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 Has obvious fat/muscle loss throughout body [...] (Auto) 59.6, Lymph % (Auto) 15.3 L, Bowie % (Auto) 19.7 H, Eos % (Auto) [...] (Auto) 59.6, Lymph % (Auto) 15.3 L, Bowie % (Auto) 19.7 H, Eos % (Auto) [...] hernia. 4. Inguinal hernias, bilaterally. Reading [facility] KUB X-Ray 02/24/25 11:25 IMPRESSION: Tip of the nasogastric tube in the fundus of the stomach. Bilateral nephrostomy catheters. Bowel-gas pattern suggest adynamic/reflex ileus. Reading Location: [facility] Charges/Coding Visit Charges Inpatient E&M: 21813 Subs Hosp L2 02/28/25 5785 <Electronically signed by Handy Royal MD> Cosigner Signature (if applicable): CC: ~ Signed [facility] Work Phone: 1(311) 226-822605-12-2025 Progress note [facility] Medical Records Department [address] [place] [address] Progress Note - Surgery 02/28/25 0727 MR#: [id number] Acct: [id number] Name: ANDREW POSADA Rep #:[id number] : 1965 59 From: Rachael LOWERY PA-C PCP: WENDY Gonzalez Status:A DM IN Location: MS3 JV612-7 Subjective Subjective Patient evaluated resting comfortably in [...] <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 Has obvious fat/muscle loss throughout body [...] (Auto) 59.6, Lymph % (Auto) 15.3 L, Bowie % (Auto) 19.7 H, Eos % (Auto) [...] discharge tomorrow Charges/Coding Visit Charges Inpatient E&M: 76887 Subs Hosp L1 (no charge; post-op) 02/28/25 [...] Cosigner Signature (if applicable): cc: ~* Signed [facility]05-12-2025 Progress note [facility] Medical Records Department [address] [place] [address] Progress Note - Hospitalist 02/28/25 1055 MR#: [id number] Acct: [id number] Name: ANDREW POSADA Rep #:[id number] : 1965 59 From: Handy Harris PCP: Elly Bellamy NP-C Status:A DM IN Location: MS3 IF311-5 Reason for Visit Reason for Visit: Diagnoses [...] <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 Has obvious fat/muscle loss throughout body [...] (Auto) 59.6, Lymph % (Auto) 15.3 L, Bowie % (Auto) 19.7 H, Eos % (Auto) [...] (Auto) 59.6, Lymph % (Auto) 15.3 L, Bowie % (Auto) 19.7 H, Eos % (Auto) [...] hernia. 4. Inguinal hernias, bilaterally. Reading [facility] KUB X-Ray 02/24/25 11:25 IMPRESSION: Tip of the nasogastric tube in the fundus of the stomach. Bilateral nephrostomy catheters. Bowel-gas pattern suggest adynamic/reflex ileus. Reading Location: [facility] Charges/Coding Visit Charges Inpatient E&M: 10305 Subs Hosp L2 02/28/25 1556 Cosigner Signature (if applicable): CC: ~ Signed [facility]05-11-2025 Progress note Author Handy Royal [facility] Note Date/Time February 27, 2025 2:45p m [facility] Medical Records Department [address] [place] [address] Progress Note - Hospitalist 02/27/25 1436 MR#: [id number] Acct: [id number] Name: ANDREW POSADA Yamila Rep #:[id number] : 1965 59 From: Handy Harris PCP: WENDY Gonzalez Status:A DM IN Location: MS3 XT393-2 Reason for Visit Reason for Visit: Diagnoses [...] <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 Has obvious fat/muscle loss throughout body [...] 82.8 H, Lymph % (Auto) 6.8 L, Bowie % (Auto) 9.5, Eos % (Auto) 0.2, [...] Clarity Turbid, Urine pH 6.0, Ur Specific Varina 1.025, Urine Protein 500 H, Urine Glucose [...] 80.9 H, Lymph % (Auto) 6.2 L, Bowie % (Auto) 11.9 H, Eos % (Auto) [...] hernia. 4. Inguinal hernias, bilaterally. Reading [facility] KUB X-Ray 02/24/25 11:25 IMPRESSION: Tip of the nasogastric tube in the fundus of the stomach. Bilateral nephrostomy catheters. Bowel-gas pattern suggest adynamic/reflex ileus. Reading Location: [facility] Charges/Coding Visit Charges Inpatient E&M: 44026 Subs Hosp L2 02/27/25 1443 <Electronically signed by Handy Royal MD> Cosigner Signature (if applicable): CC: ~ Signed ADDENDUM by Dr. Handy Royal MD on 02/27/25 at 1445 Addendum Jejunostomy output 1700 mL bilious fluid in last 24 hours 02/27/25 1445<Electronically signed by Handy Royal MD> Cosigner Signature (if applicable): cc: ~* Signed [facility] Work Phone: 1(454) 896-137305-11-2025 Progress note Author Salena Paredes [facility] Note Date/Time February 27, 2025 1:43p m [facility] Medical Records Department [address] [place] [address] Progress Note - Surgery 02/27/2537 MR#: [id number] Acct: [id number] Name: ANDREW POSADA Rep #:[id number] : 1965 59 From: Salena Harris PCP: Elly Bellamy BAG FILLER MACHINE OPERATOR-C Status:A DM IN Location: MO3 GT305-5 Subjective Subjective Patient seen and evaluated during [...] <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 Has obvious fat/muscle loss throughout body [...] 82.8 H, Lymph % (Auto) 6.8 L, Bowie % (Auto) 9.5, Eos % (Auto) 0.2, [...] Paredes MD General Surgery Endocrine Surgery Pager: [facility] [address] [place] [address], [address] [place] [address] Office: [phone] Charges/Coding Visit Charges Inpatient E&M: 56477 Subs Hosp L2 02/27/25 1343 <Electronically signed by Salena Paredes MD> Cosigner Signature (if applicable): CC: ~ Signed [facility] Work Phone: 1(811) 263-280505-11-2025 Progress note [facility] Medical Records Department [address] [place] [address] Progress Note - Hospitalist 02/27/25 1436 MR#: [id number] Acct: [id number] Name: TIM,ANDREW A Rep #:[id number] : 1965 59 From: Handy Harris PCP: Elly Bellamy BAG FILLER MACHINE OPERATOR-C Status:A DM IN Location: MS3 XL769-3 Reason for Visit Reason for Visit: Diagnoses [...] <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 Has obvious fat/muscle loss throughout body [...] 82.8 H, Lymph % (Auto) 6.8 L, Bowie % (Auto) 9.5, Eos % (Auto) 0.2, [...] Clarity Turbid, Urine pH 6.0, Ur Specific Var[place] 1.025, Urine Protein 500 H, Urine Glucose [...] 80.9 H, Lymph % (Auto) 6.2 L, Bowie % (Auto) 11.9 H, Eos % (Auto) 0.1, Baso % (Auto) 0.4, Absolute Neuts (auto) 6.7, Absolute Lymphs (auto) 0.51 L, Nucleated RBC % 0, Sodium 142, Potassium 3.2 L, Chloride 99, Carbon Dioxide 29.5, Anion Gap 14, BUN21 H, Creatinine 1.51 H, Estim Creat Clear Calc 36.73 L, Est GFR (MDRD) Non- Af 53 L, BUN/Creatinine Ratio 13.7, Gzowxop001 H, Calcium 9.6 Clinical Impression(s) from Imaging [...] hernia. 4. Inguinal hernias, bilaterally. Reading [facility]: [facility] KUB X-Ray 02/24/25 11:25 IMPRESSION: Tip of the nasogastric tube in the fundus of the stomach. Bilateral nephrostomy catheters. Bowel-gas pattern suggest adynamic/reflex ileus. Reading Location: [facility] Charges/Coding Visit Charges Inpatient E&M: 91812 Subs Hosp L2 02/27/25 1443 Cosigner Signature (if applicable): CC: ~ Signed ADDENDUM by Dr. 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 Has obvious fat/muscle loss throughout body [...] 82.8 H, Lymph % (Auto) 6.8 L, Bowie % (Auto) 9.5, Eos % (Auto) 0.2, [...] Paredes MD General Surgery Endocrine Surgery Pager: [facility] [address] [place] [address], [address] [place] [address] Office: [phone] Charges/Coding Visit Charges Inpatient E&M: 67877 Subs Hosp L2 02/27/25 1343 Cosigner Signature (if applicable): CC: ~ Signed [facility]05-10-2025 Progress note Author Handy Royal [facility] Note Date/Time February 26, 2025 12:38 pm [facility] Medical Records Department [address] [place] [address] Progress Note - Hospitalist 02/26/25 1231 MR#: [id number] Acct: [id number] Name: ANDREW POSADA Yamila Rep #:[id number] : 1965 59 From: Handy Lele M D PCP: Care Physician,No Primary Status :ADM IN Location: [facility] KE105-7 Reason for Visit Reason for Visit: Diagnoses [...] <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 Has obvious fat/muscle loss throughout body [...] 87.7 H, Lymph % (Auto) 3.2 L, Bowie % (Auto) 8.7, Eos % (Auto) 0.0, [...] 02/25/25 16:45 IMPRESSION: See above Reading Location[facility] Physical Exam Narrative Seen and examined [...] shock if needed Total time spent in gdnn-fx-fnpm encounter in discussion of advanced directive 17 minutes. Laboratory Results 02/24/25 07:35: Phosphorus 2.7, Magnesium 2.1 02/24/25 16:35: Urine Color Yellow, Urine Clarity Turbid, Urine pH 6.0, Ur Specific Varina 1.025, Urine Protein 500 H, Urine Glucose [...] 80.9 H, Lymph % (Auto) 6.2 L, Bowie % (Auto) 11.9 H, Eos % (Auto) [...] hernia. 4. Inguinal hernias, bilaterally. Reading Location: [facility] KUB X-Ray 02/24/25 11:25 IMPRESSION: Tip of the nasogastric tube in the fundus of the stomach. Bilateral nephrostomy catheters. Bowel-gas pattern suggest adynamic/reflex ileus. Reading Location: [facility] Charges/Coding Visit Charges Inpatient E&M: 50231 Subs Hosp L2 02/26/25 1238 <Electronically signed by Handy Royal MD> Cosigner Signature (if applicable): CC: ~ Signed [facility] Work Phone: 1(597) 788-251905-10-2025 Progress note Author Salena Paredes [facility] Note Date/Time February 26, 2025 11:00 am [facility] Medical Records Department [address] [place] [address] Progress Note - Surgery 02/26/25 1021 MR#: [id number] Acct: [id number] Name: ANDREW POSADA Yamila Rep #:[id number] : 1965 59 From: Salena Harris PCP: Care Physician,No Primary Status :ADM IN Location: [facility] JZ069-4 Subjective Subjective Patient seen and examined during [...] <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 Has obvious fat/muscle loss throughout body [...] 87.7 H, Lymph % (Auto) 3.2 L, Bowie % (Auto) 8.7, Eos % (Auto) 0.0, [...] then terminated by Dr. Chandler. Reading Location: [facility] KUB X-Ray 02/25/25 16:45 IMPRESSION: See above [...] Paredes MD General Surgery Endocrine Surgery Pager: [facility] [address] [place] [address], [address] [place] [address] Office: [phone] Charges/Coding Visit Charges Inpatient E&M: 91074 Subs Hosp L2 02/26/25 1100 <Electronically signed by Salena Paredes MD> Cosigner Signature (if applicable): CC: ~ Signed [facility] Work Phone: 1(289) 598-387605-10-2025 Progress note [facility] Medical Records Department [address] [place] [address] Progress Note - Hospitalist 02/26/25 1231 MR#: [id number] Acct: [id number] Name: ANDREW POSADA Rep #:[id number] : 1965 59 From: Handy Harris PCP: Care Physician,No Primary Status :ADM IN Location: [facility] PL391-7 Reason for Visit Reason for Visit: Diagnoses [...] <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 Has obvious fat/muscle loss throughout body [...] 87.7 H, Lymph % (Auto) 3.2 L, Bowie % (Auto) 8.7, Eos % (Auto) 0.0, [...] 02/25/25 16:45 IMPRESSION: See above Reading [facility] Physical Exam Narrative Seen and examined [...] shock if needed Total time spent in oege-lw-zqqa encounter in discussion of advanced directive 17 minutes. Laboratory Results 02/24/25 07:35: Phosphorus 2.7, Magnesium 2.1 02/24/25 16:35: Urine Color Yellow, Urine Clarity Turbid, Urine pH 6.0, Ur Specific Varina 1.025, Urine Protein 500 H, Urine Glucose [...] 80.9 H, Lymph % (Auto) 6.2 L, Bowie % (Auto) 11.9 H, Eos % (Auto) 0.1, Baso % (Auto) 0.4, Absolute Neuts (auto) 6.7, Absolute Lymphs (auto) 0.51 L, Nucleated RBC % 0, Sodium 142, Potassium 3.2 L, Chloride 99, Carbon Dioxide 29.5, Anion Gap 14, BUN21 H, Creatinine 1.51 H, Estim Creat Clear Calc 36.73 L, Est GFR (MDRD) Non- Af 53 L, BUN/Creatinine Ratio 13.7, Cydejrx324 H, Calcium 9.6 Clinical Impression(s) from Imaging [...] hernia. 4. Inguinal hernias, bilaterally. Reading Location: [facility] KUB X-Ray 02/24/25 11:25 IMPRESSION: Tip of the nasogastric tube in the fundus of the stomach. Bilateral nephrostomy catheters. Bowel-gas pattern suggest adynamic/reflex ileus. 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 Has obvious fat/muscle loss throughout body [...] 87.7 H, Lymph % (Auto) 3.2 L, Bowie % (Auto) 8.7, Eos % (Auto) 0.0, [...] The study was then terminated by Dr. Chadnler. Reading Location: [facility] KUB X-Ray 02/25/25 16:45 IMPRESSION: See above [...] Paredes MD General Surgery Endocrine Surgery Pager: [facility] [address] [place] [address], [address] [place] [address] Office: [phone] Charges/Coding Visit Charges Inpatient E&M: 52042 Subs Hosp L2 02/26/25 1100 Cosigner Signature (if applicable): CC: ~ Signed [facility]05-09-2025 Consult note Author Forrest Lancaster [facility] Note Date/Time February 25, 2025 5:25pm [facility] Medical Records Department [address] [place] [address] Anesthesia Postop Eval II 02/25/25 1725 MR#: [id number] Acct: [id number] Name: ANDREW POSADA Rep #:[id number] : 1965 59 From: Forrest Lancaster MD PCP: Care Physician,No Primary Status :ADM IN Y Race: C Location: [address] Anesthesia Postop Eval I Sum Postop Eval Completion status Anesthesia document: Postop Eval 1 completed: Yes Anesthesia Postop Eval I Summary Anesthesia Postop Eval I Summary: Anesthesia Postop Eval I: Assessment Summary 3 Airway patent Yes 02/25/25 16:39 CONCESSIONS MANAGER.PKEL Spontaneous unlabored Yes 02/25/25 16:39 CONCESSIONS MANAGER.PKEL respirations Mental status Asleep 02/25/25 16:39 CONCESSIONS MANAGER.PKEL nausea No 02/25/25 16:39 CONCESSIONS MANAGER.PKEL Vomiting No 02/25/25 16:39 CONCESSIONS MANAGER.PKEL Anesthesia Postop Eval I: Fluid Summary Crystalloid volume administer 2,400 02/25/25 16:39 CONCESSIONS MANAGER.PKEL (ml) Colloids volume administered ( ml) Blood Product volume administered (ml) Total IV fluid infused 2,400 02/25/25 16:39 CONCESSIONS MANAGER.PKEL Anesthesia Postop Eval I: Summary Notes Anesthesia Complication No 02/25/25 16:39 CONCESSIONS MANAGER.PKEL Anesthesia Complication Comment: Post-operative progress note Anesthesia: Postop Eval II Evaluation Mental status: Awake and Calm Pain Level: 5 nausea: No Vomiting: No 02/25/25 1725 <Electronically signed by Forrest Belcher D> Date _ Forrest Lancaster MD Cosigner Signature: Date CC: ~ Signed [facility] Work Phone: 1(595) 147-782605-09-2025 Consult note Author Donnell Carballo [facility] Note Date/Time February 25, 2025 4:39pm [facility] Medical Records Department [address] [place] [address] Anesthesia Postop Eval I 02/25/25 1639 MR#: [id number] Acct: [id number] Name: ANDREW POSADA Rep #:[id number] : 1965 59 From: Donnell Carballo CRNA PCP: Care Physician,No Primary Status :ADM IN Y Race: C [place] [facility] MS324 -1 Anesthesia: Postop Eval I Current [...] CRNA Cosigner Signature: Date CC: ~ Signed [facility] Work Phone: 1(375) 389-390105-09-2025 Radiology Diagnostic study note [facility] Imaging Services [address] [place] [address] Abdomen Single View (Portable) MR#: [id number] Acct: [id number] Name: TIMANDREW ALVARADO Yamila Rep #: [id number] : 1965 M 59 From: Taya Alfonso MD PCP: Care Physician,No Primary Status: ADM IN Study:Abdomen Single View (Portable) Date of Exam: 02/25/25 Exam# [id number] Ordering Dr: St ghada Chandler MD PROCEDURE: [...] View (Portable) IMPRESSION: See above Reading Location[facility] CC: Dr. Kunal Chandler MD; No Primary Care Physician ~ Central Office Repairer Supervisor: Signed [facility]05-09-2025 Procedure note [facility] Medical Records Department [address] [place] [address] Operative Report 02/25/25 1712 MR#: [id number] Acct: [id number] Name: ANDREW POSADA Rep #:[id number] : 1965 59 From: Kunal Chandler MD PCP: Care Physician,No Primary Status :ADM IN Location: [place] [id number] Problems Associated Problem List Diagnoses (1) SBO (small bowel obstruction): Multi Select Codes Digestive Digestive CPT Codes: 69781 Freeing of bowel adhesion, 53316 Exploration of abdomen and Other Procedure See Notes (32509 -- loop illeostomy ) Endocrine,Ocular,Nerv, Auditory Endocrine,Ocular,Nerv, Auditory CPT Codes: Other Procedure See Report (75667 bilateral piyush block ) Operative Report (Standard) Operative Information Date of Procedure: 02/25/25 Pre-Operative Diagnosis: Small bowel obstruction Post-Operative Diagnosis: Small bowel obstruction secondary to adhesions/radiation to the pelvis Surgery/Procedure Performed: 1. Diagnostic laparoscopy 2. Exploratory laparotomy 3. Extensive lysis of adhesions 4. Diverting loop jejunostomy 5. Bilateral tap block primary operator: Yes Project Coordinator: Omero Lindsay Tasks completed by assistant production editor: Closing and Retracting Additional respiratory care assistant?: Yes Additional External Relations Manager #2: Eber Leon Tasks completed by respiratory care assistant #2: Other (dissecting tissue ) Type [...] just recently finished chemotherapy. He presented to [facility] yesterday with bowel obstruction. Emmanuel had [...] to the point of transition. A skin tule river was created in the rightlower quadrant. The fascia was incised in a cruciate manner using electrocautery. A loop of small bowel was brought up. I suspect this is distal jejunum that was brought up. This was secured with a [place] temporarily. The abdomen was then copiously irrigated. [...] Chandler MD; No Primary Care Physician~ Signed [facility]05-09-2025 Consult note [facility] Medical Records Department [address] [place] [address] Anesthesia Postop Eval II 02/25/25 1725 MR#: [id number] Acct: [id number] Name: ANDREW POSADA Rep #:[id number] : 1965 59 From: Forrest Lancaster MD PCP: Care Physician,No Primary Status :ADM IN Y Race: C Location: [place] 413634 -1 Anesthesia Postop Eval I Sum Postop Eval Completion status Anesthesia document: Postop Eval 1 completed: Yes Anesthesia Postop Eval I Summary Anesthesia Postop Eval I Summary: Anesthesia Postop Eval I: Assessment Summary 3 Airway patent Yes 02/25/25 16:39 CONCESSIONS [email or web address] Spontaneous unlabored Yes 02/25/25 16:39 CONCESSIONS MANAGER.PKEL respirations Mental status Asleep 02/25/25 16:39 CONCESSIONS MANAGER.PKEL nausea No 02/25/25 16:39 CONCESSIONS MANAGER.PKEL Vomiting No 02/25/25 16:39 CONCESSIONS MANAGER.PKEL Anesthesia Postop Eval I: Fluid Summary Crystalloid volume administer 2,400 02/25/25 16:39 CONCESSIONS MANAGER.PKEL (ml) Colloids volume administered ( ml) Blood Product volume administered (ml) Total IV fluid infused 2,400 02/25/25 16:39 CONCESSIONS MANAGER.PKEL Anesthesia Postop Eval I: Summary Notes Anesthesia Complication No 02/25/25 16:39 CONCESSIONS MANAGER.PKEL Anesthesia Complication Comment: Post-operative progress note Anesthesia: Postop Eval II Evaluation Mental status: Awake and Calm Pain Level: 5 nausea: No Vomiting: No 02/25/25 1725 D> Date _ Forrest Lancaster MD Cosigner Signature: Date CC: ~ Signed [facility]05-09-2025 Consult note [facility] Medical Records Department [address] [place] [address] Anesthesia Postop Eval I 02/25/25 1639 MR#: [id number] Acct: [id number] Name: ANDREW POSADA Rep #:[id number] : 1965 59 From: Donnell Carballo CRNA PCP: Care Physician,No Primary Status :ADM IN Y Race: C Location: [place] [address] Anesthesia: Postop Eval I Current Vital Signs [...] Eval 1 completed: Yes 02/25/25 1639 y CONCESSIONS MANAGER> Date _ Donnell Odenigner Signature: Date CC: ~ Signed [facility]05-09-2025 Progress note Author Handy Royal [facility] Note Date/Time February 25, 2025 12:59p m [facility] Medical Records Department [address] [facility] [place] [address] Progress Note - Hospitalist 02/25/25 1253 MR#: [id number] Acct: [id number] Name: ANDREW POSADA Rep #:[id number] : 1965 59 From: Handy Harris PCP: Care Physician,No Primary Status :ADM IN Location: [place] [address] Reason for Visit Reason for Visit: Diagnoses [...] <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 Has obvious fat/muscle loss throughout body [...] Clarity Turbid, Urine pH 6.0, Ur Specific Varina 1.025, Urine Protein 500 H, Urine Glucose [...] 80.9 H, Lymph % (Auto) 6.2 L, Bowie % (Auto) 11.9 H, Eos % (Auto) [...] then terminated by Dr. Chandler. Reading Location: [place] [address] Physical Exam Narrative Seen and examined Patient [...] shock if needed Total time spent in pxnd-af-skgy encounter in discussion of advanced directive 17 minutes. Laboratory Results 02/24/25 07:35: Phosphorus 2.7, Magnesium 2.1 02/24/25 16:35: Urine Color Yellow, Urine Clarity Turbid, Urine pH 6.0, Ur Specific Varina 1.025, Urine Protein 500 H, Urine Glucose [...] 80.9 H, Lymph % (Auto) 6.2 L, Bowie % (Auto) 11.9 H, Eos % (Auto) [...] hernia. 4. Inguinal hernias, bilaterally. Reading [facility] KUB X-Ray 02/24/25 11:25 IMPRESSION: Tip of the nasogastric tube in the fundus of the stomach. Bilateral nephrostomy catheters. Bowel-gas pattern suggest adynamic/reflex ileus. Reading Location: [facility] Charges/Coding Visit Charges Inpatient E&M: 26998 Subs Hosp L2 02/25/25 1259 <Electronically signed by Handy Royal MD> Cosigner Signature (if applicable): CC: ~ Signed [facility] Work Phone: 1(398) 745-560805-09-2025 Consult note Author Forrest Lancaster [facility] Note Date/Time February 25, 2025 12:27p [facility] Medical Records Department [address] [place] [address] Pre-Anesthesia Evaluation 02/25/25 1159 MR#: [id number] Acct: [id number] Name: ANDREW POSADA Yamila Rep #:[id number] : 1965 59 From: Forrest Lancaster MD PCP: Care Physician,No Primary Status :ADM IN Y Race: C Location: [place] [address] ASA Classification* ASA Classification ASA Classification: 3 [...] vs ex-lap Anesthesia History Anesthesia History - administrative assistant receptionist: Anesthesia History - administrative assistant receptionist Hx Hospitalization Yes: 03/30/2024 COLON 07/14/24 13:14 RESECTION IN [place] Any Problems With Anesthesia No 07/14/24 13:14 [...] take am of surgery PONV PONV - administrative assistant receptionist: PONV - administrative assistant receptionist Female HX of Motion Sickness HX of N/V After Surgery Non-Smoker Duration of Surgery greater than 60 minutes Number of Risk Factors PONV Score Height & Weight Height & Weight: Anesthesia: Height & Weight Height 5 ft 8.11 in 02/25/25 11:32 Weight: 49.3 kg 02/25/25 11:32 Body Mass Index (BMI) 16.5 02/25/25 06:00 Respiratory Assessment Respiratory Assessment - administrative assistant receptionist: Respiratory Tract Infection Hx - administrative assistant receptionist Hx Respiratory Tract Infection No 07/14/24 13:14 STOP Sleep Apnea STOP Sleep Apnea - administrative assistant receptionist: STOP Sleep Apnea - administrative assistant receptionist Hx Hypertension Yes 02/24/25 16:30 Hx Sleep [...] Tobacco Use History Tobacco Use History - administrative assistant receptionist: Tobacco Use History - administrative assistant receptionist Tobacco Use Smoking Status Never smoker 02/24/25 12:38 Hx Tobacco Use No 02/24/25 12:38 Years Smoking Packs Smoked per Day Smoking Cessation Date was within the last 15 years Hx Smoking Cessation Date Hx Smoking Cessation Counseling Hematologic Medial History Hematologic Hx - administrative assistant receptionist: Hematologic Medical Hx - sales solutions associate Hx of Blood Transfusion Yes 02/24/25 12:38 [...] confused, unrespo /Reproduction History /Reproductive History - administrative assistant receptionist: /Reproductive Hx- administrative assistant receptionist Hx Now Gestational Age (in weeks): EDC: [...] UD PRN Port access or [facility] History Hypokalemia UTI (urinary tract [...] MD Cosigner Signature: Date CC: ~ Signed [facility] Work Phone: [phone]) 610-492905-09-2025 Progress note Author Kunal [facility] Note Date/Time February 25, 2025 11:51a m [facility] Medical Records Department [address] [place] [address] Progress Note - Surgery 02/25/25 1150 MR#: [id number] Acct: [id number] Name: ANDREW POSADA Rep #:[id number] : 1965 59 From: Kunal Chandler MD PCP: Care Physician,No Primary Status :ADM IN Location: [place] 413634-1 Subjective Subjective Small bowel follow-through was attempted [...] Clarity Turbid, Urine pH 6.0, Ur Specific Varina 1.025, Urine Protein 500 H, Urine Glucose [...] 80.9 H, Lymph % (Auto) 6.2 L, Bowie % (Auto) 11.9 H, Eos % (Auto) [...] then terminated by Dr. Chandler. Reading Location: [place] [address] 02/25/25 1151 <Electronically signed by Kunal Chandler MD> Cosigner Signature (if applicable): CC: ~ Signed [facility] Work Phone: 1(705) 891-249305-09-2025 Progress note [facility] Medical Records Department [address] [place] [address] Progress Note - Hospitalist 02/25/25 1253 MR#: [id number] Acct: [id number] Name: TIMANDREW A Rep #:[id number] : 1965 59 From: Handy Harris PCP: Care Physician,No Primary Status :ADM IN Location: [facility] KE541-4 Reason for Visit Reason for Visit: Diagnoses [...] <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 Has obvious fat/muscle loss throughout body [...] Clarity Turbid, Urine pH 6.0, Ur Specific Varina 1.025, Urine Protein 500 H, Urine Glucose [...] 80.9 H, Lymph % (Auto) 6.2 L, Bowie % (Auto) 11.9 H, Eos % (Auto) [...] then terminated by Dr. Chandler. Reading Location: [place] [address] Physical Exam Narrative Seen and examined Patient [...] shock if needed Total time spent in bxoj-yn-bnth encounter in discussion of advanced directive 17 minutes. Laboratory Results 02/24/25 07:35: Phosphorus 2.7, Magnesium 2.1 02/24/25 16:35: Urine Color Yellow, Urine Clarity Turbid, Urine pH 6.0, Ur Specific Varina 1.025, Urine Protein 500 H, Urine Glucose [...] 80.9 H, Lymph % (Auto) 6.2 L, Bowie % (Auto) 11.9 H, Eos % (Auto) 0.1, Baso % (Auto) 0.4, Absolute Neuts (auto) 6.7, Absolute Lymphs (auto) 0.51 L, Nucleated RBC % 0, Sodium 142, Potassium 3.2 L, Chloride 99, Carbon Dioxide 29.5, Anion Gap 14, BUN21 H, Creatinine 1.51 H, Estim Creat Clear Calc 36.73 L, Est GFR (MDRD) Non- Af 53 L, BUN/Creatinine Ratio 13.7, [id number] H, Calcium 9.6 Clinical Impression(s) from Imaging [...] Location: [facility] Charges/Coding Visit Charges Inpatient E&M: 29852 Subs Hosp L2 02/25/25 1259 Cosigner Signature (if applicable): CC: ~ Signed [facility]05-09-2025 Consult note [facility] Medical Records Department [address] [place] [address] Pre-Anesthesia Evaluation 02/25/25 1159 MR#: [id number] Acct: [id number] Name: ANDREW POSADA Rep #:[id number] : 1965 59 From: Forrest Lancaster MD PCP: Care Physician,No Primary Status :ADM IN Y Race: C Location: [place] [address] ASA Classification* ASA Classification ASA Classification: 3 [...] vs ex-lap Anesthesia History Anesthesia History - administrative assistant receptionist: Anesthesia History - administrative assistant receptionist Hx Hospitalization Yes: 03/30/2024 COLON 07/14/24 13:14 RESECTION IN [place] Any Problems With Anesthesia No 07/14/24 13:14 [...] take am of surgery PONV PONV - administrative assistant receptionist: PONV - administrative assistant receptionist Female HX of Motion Sickness HX of N/V After Surgery Non-Smoker Duration of Surgery greater than 60 minutes Number of Risk Factors PONV Score Height & Weight Height & Weight: Anesthesia: Height & Weight Height 5 ft 8.11 in 02/25/25 11:32 Weight: 49.3 kg 02/25/25 11:32 Body Mass Index (BMI) 16.5 02/25/25 06:00 Respiratory Assessment Respiratory Assessment - administrative assistant receptionist: Respiratory Tract Infection Hx - administrative assistant receptionist Hx Respiratory Tract Infection No 07/14/24 13:14 STOP Sleep Apnea STOP Sleep Apnea - administrative assistant receptionist: STOP Sleep Apnea - administrative assistant receptionist Hx Hypertension Yes 02/24/25 16:30 Hx Sleep [...] Tobacco Use History Tobacco Use History - administrative assistant receptionist: Tobacco Use History - administrative assistant receptionist Tobacco Use Smoking Status Never smoker 02/24/25 12:38 Hx Tobacco Use No 02/24/25 12:38 Years Smoking Packs Smoked per Day Smoking Cessation Date was within the last 15 years Hx Smoking Cessation Date Hx Smoking Cessation Counseling Hematologic Medial History Hematologic Hx - administrative assistant receptionist: Hematologic Medical Hx - sales solutions associate Hx of Blood Transfusion Yes 02/24/25 12:38 [...] confused, unrespo /Reproduction History /Reproductive History - administrative assistant receptionist: /Reproductive Hx- administrative assistant receptionist Hx Now Gestational Age (in weeks): EDC: [...] UD PRN Port access or dressing change [facility] Medical History Hypokalemia UTI (urinary tract infection) [...] MD Cosigner Signature: Date CC: ~ Signed [facility]05-09-2025 Progress note [facility] Medical Records Department [address] [place] [address] Progress Note - Surgery 02/25/25 1150 MR#: [id number] Acct: [id number] Name: ANDREW POSADA Rep #:[id number] : 1965 59 From: Kunal Chandler MD PCP: Care Physician,No Primary Status :ADM IN Location: [place] IW751-3 Subjective Subjective Small bowel follow-through was attempted [...] Clarity Turbid, Urine pH 6.0, Ur Specific Varina 1.025, Urine Protein 500 H, Urine Glucose [...] 80.9 H, Lymph % (Auto) 6.2 L, Bowie % (Auto) 11.9 H, Eos % (Auto) [...] Bowel-gas pattern suggest adynamic/reflex ileus. [facility] Bowel X-Ray 02/25/25 08:25 IMPRESSION: On [...] then terminated by Dr. Chandler. Reading Location: [place] [address] 02/25/25 1151 Cosigner Signature (if applicable): CC: ~ Signed [facility]05-09-2025 Radiology Diagnostic study note [facility] Imaging Services [address] [place] [address] Small Bowel Series Only MR#: [id number] Acct: [id number] Name: TIMANETTEANDREW A Rep #: [id number] : 1965 M 59 From: Armond Barajas MD PCP: Care Physician,No Primary Status: ADM IN Study:Small Bowel Series Only Date of Exam: 02/25/25 Exam# [id number] Ordering Dr: St ghada Chandler MD EXAM: [...] then terminated by Dr. Chandler. Reading Location: [place] [address] CC: Dr. Kunal Chnadler MD; No Primary Care Physician ~ Central Office Repairer Supervisor: Signed [facility]05-09-2025 Progress note Author Kunal Chandler [facility] Note Date/Time February 25, 2025 8:38am [facility] Medical Records Department [address] [place] [address] Progress Note - Surgery 02/25/25 0834 MR#: [id number] Acct: [id number] Name: ANDREW POSADA Rep #:[id number] : 1965 59 From: Kunal Chandler MD PCP: Care Physician,No Primary Status :ADM IN Location: [place] KK738-9 Subjective Subjective Patient feeling better this morning [...] Clarity Turbid, Urine pH 6.0, Ur Specific Varina 1.025, Urine Protein 500 H, Urine Glucose [...] 80.9 H, Lymph % (Auto) 6.2 L, Bowie % (Auto) 11.9 H, Eos % (Auto) [...] hernia. 4. Inguinal hernias, bilaterally. Reading Location: [facility] KUB X-Ray 02/24/25 11:25 IMPRESSION: Tip of [...] in his colostomy bag. RN stated that travel agency manager nurse just recently emptied a fairly full [...] Cosigner Signature (if applicable): CC: ~ Signed [facility] Work Phone: 1(910) 777-656905-09-2025 Progress note [facility] Medical Records Department [address] [place] [address] Progress Note - Surgery 02/25/25 0834 MR#: [id number] Acct: [id number] Name: ANDREW POSADA Rep #:[id number] : 1965 59 From: Kunal Chandler MD PCP: Care Physician,No Primary Status :ADM IN Location: [place] 413634-1 Subjective Subjective Patient feeling better this morning [...] Clarity Turbid, Urine pH 6.0, Ur Specific Varina 1.025, Urine Protein 500 H, Urine Glucose [...] 80.9 H, Lymph % (Auto) 6.2 L, Bowie % (Auto) 11.9 H, Eos % (Auto) [...] hernia. 4. Inguinal hernias, bilaterally. Reading [facility] KUB X-Ray 02/24/25 11:25 IMPRESSION: Tip of [...] in his colostomy bag. RN stated that travel agency manager nurse justrecently emptied a fairly full bag [...] Cosigner Signature (if applicable): CC: ~ Signed [facility]05-08-2025 Consult note Author Kunal Chandler [facility] Note Date/Time February 24, 2025 4:07pm [facility] Medical Records Department [address] [place] [address] Consultation - Surgical 02/24/25 1601 MR#: [id number] Acct: [id number] Name: ANDREW POSADA Rep #:[id number] : 1965 59 From: Kunal Chandler MD PCP: Care Physician,No Primary Status :ADM IN Location: [facility] [id number] Assessment & Plan Assessment/Plan (1) SBO (small [...] presents to the emergency department here at [facility] with complaints of nausea, vomiting and abdominal pain over thelast 4 to 5 days. Patient has a history of a colon resection with colostomy last year. This was performed in [place] for malignancy. He is currently being seen by oncology here at [facility]. He just recently completed a 4-monthregimen of [...] treatment for the small bowel obstruction . [facility] Medical History Hypokalemia UTI (urinary tract infection) [...] 84.7 H, Lymph % (Auto) 4.5 L, Bowie % (Auto) 9.9, Eos % (Auto) 0.1, [...] hernia. 4. Inguinal hernias, bilaterally. Reading [facility] KUB X-Ray 02/24/25 11:25 IMPRESSION: Tip of the nasogastric tube in the fundus of the stomach. Bilateral nephrostomy catheters. Bowel-gas pattern suggest adynamic/reflex ileus. Reading Location: [facility] Charges/Coding Visit Charges Inpatient E&M: 00434 Init Hosp L3 02/24/25 1607 <Electronically signed by Kunal Chandler MD> Cosigner Signature (if applicable): CC: No Primary Care Physician~ Signed [facility] Work Phone: 1(161) 892-968705-08-2025 History and physical note Author Handy Royal [facility] Note Date/Time February 24, 2025 3:27pm [facility] Medical Records Department [address] [place] [address] H&P Exam - Hospitalist 02/24/25 1129 MR#: [id number] Acct: [id number] Name: ANDREW POSADA Rep #:[id number] : 1965 59 From: Handy Harris PCP: Care Physician,No Primary Status :ADM IN Location: MO3 [id number] HPI - General General Date of Admission: 02/24/25 Date of Service: 02/24/25 Chief Complaint: Last BM Friday night. Not passing flatus at home. HPI Narrative ANDREW POSADA, is a 59 M Was admitted with not moving his bowel, nausea vomitingsince Friday night. His last bowel movement on Friday was well-formed with noblood. He had APR with colostomy in [place] in March 2024. Prior to that he had chemotherapy about 10 days to 2 weeks ago, second chemotherapy regimen after 4 months. Denies fever or chills. In September 2024 he had bilateral nephrostomy in [facility]. In ED, patient had CT abdomen which showed multiple distended small bowel loops with air-fluid levels measuring up to 3.7 cm concerning for small bowel obstruction and possible transition in RLQ. [facility] Medical History Hypokalemia UTI (urinary tract infection) [...] 84.7 H, Lymph % (Auto) 4.5 L, Bowie % (Auto) 9.9, Eos % (Auto) 0.1, [...] hernia. 4. Inguinal hernias, bilaterally. Reading Location: [facility] Assessment & Plan Assessment/Plan (1) SBO [...] shock if needed Total time spent in [id number]-[id number] encounter in discussion of advanced directive 17 minutes. Laboratory Results 02/24/25 07:35: WBC 7.8, RBC 3.77 L, Hgb 12.6 L, Hct 35.1 L, MCV 93.1, MCH 33.4 H, MCHC 35.9, RDW Std Deviation 49.7 H, RDW Coeff of Rosalee 14.9 H, Plt Count 111 L, MPV 9.5, Immature Gran % (Auto) 0.400, Neut % (Auto) 84.7 H, Lymph % (Auto) 4.5 L, Bowie % (Auto) 9.9, Eos % (Auto) 0.1, [...] Location: [facility] Charges/Coding Visit Charges Inpatient E&M: 36860 Init Hosp L3 Procedures Hospitalists Procedures: 24046 Advncd Care Plan 30 Min 02/24/25 1527 <Electronically signed by Handy Royal MD> Cosigner Signature (if applicable): CC: Dr. Handy Royal MD; No Primary Care Physician~ Signed [facility] Work Phone: 1(851) 801-739005-08-2025 Discharge summary Author Gwyn Esquivel [facility] Note Date/Time February 24, 2025 2:30pm [facility] Medical Records Department [address] [place] [address] Emergency Department Summary 02/24/25 MR#: [id number] Acct: [id number] Name: ANDREW POSADA Rep #:[id number] : 1965 59 From: Gwyn Turner PCP: Care Physician,No Primary Status :ADM IN Location: [place] [address] HPI History of Present Illness Chief Complaint: General Illness Informant: patient and spouse/S.O. Narrative Narrative: Presents generalized illness over the last 5 days. States unable to eat. Reports yesterday was able to eat some soup at noon by supper came back up. Nausea. Colostomy March of last year performed in [place]. He had a colonoscopy finding a mass 2 weeks prior. They went to [place] due to knowing somebody with similar issues [...] in the past. Prior similar symptoms: [facility] Medical History Hypokalemia UTI (urinary tract infection) [...] Surgery, hospitalist This note was generated with [employer] dictation software. It may contain incorrectwords, spelling, [...] 84.7 H Lymph % (Auto) 4.5 L Bowie % (Auto) 9.9 Eos % (Auto) 0.1 [...] hernia. 4. Inguinal hernias, bilaterally. Reading Location: [facility] KUB X-Ray 02/24/25 11:25 IMPRESSION: Tip of the nasogastric tube in the fundus of the stomach. Bilateral nephrostomy catheters. Bowel-gas pattern suggest adynamic/reflex ileus. [facility] Discharge Plan Dx/Rx/DC Orders Clinical Impression: SBO (small bowel obstruction), Malignant neoplasm of rectum, Vomiting, Nephrostomy present Disposition Disposition: [facility] Discharge Date/Time: 02/24/25 12:02 What to do if you have Problems For any increased pain, shortness of breath, bleeding, nausea or vomiting, chestpain, or any unexpected problems, contact your Primary Care Provider. Call [facility] ([phone]) or report to the closest Emergency Room. Call 911 if necessary. 02/24/25 1430 <Electronically signed by Gwyn Turner> Cosigner Signature (if applicable): CC: Dr. Guy Ho MD; No Primary Care Physician ~ Signed [facility] Work Phone: 1(592) 809-133405-08-2025 Consult note [facility] Medical Records Department [address] [place] [address] Consultation - Surgical 02/24/25 1601 MR#: [id number] Acct: [id number] Name: ANDREW POSADA Rep #:[id number] : 1965 59 From: Kunal Chandler MD PCP: Care Physician,No Primary Status :ADM IN Location: [facility] [id number] Assessment & Plan Assessment/Plan (1) SBO (small [...] presents to the emergency department here at [facility] with complaints of nausea, vomiting and abdominal pain over thelast 4 to 5 days. Patient has a history of a colon resection with colostomy last year. This was performed in [place] for malignancy. He is currently being seen by oncology here at [facility]. He just recently completed a 4- monthregimen [...] treatment for the small bowel obstruction . [facility] Medical History Hypokalemia UTI (urinary tract infection) [...] 84.7 H, Lymph % (Auto) 4.5 L, Bowie % (Auto) 9.9, Eos % (Auto) 0.1, [...] hernia. 4. Inguinal hernias, bilaterally. Reading [facility] KUB X-Ray 02/24/25 11:25 IMPRESSION: Tip of the nasogastric tube in the fundus of the stomach. Bilateral nephrostomy catheters. Bowel-gas pattern suggest adynamic/reflex ileus. Reading Location: [facility] Charges/Coding Visit Charges Inpatient E&M: 75372 Init Hosp L3 02/24/25 1607 Cosigner Signature (if applicable): CC: No Primary Care Physician~ Signed [facility]05-08-2025 History and physical note [facility] Medical Records Department [address] [place] [address] H&P Exam - Hospitalist 02/24/25 1129 MR#: [id number] Acct: [id number] Name: ANDREW POSADA Rep #:[id number] : 1965 59 From: Handy Harris PCP: Care Physician,No Primary Status :ADM IN Location: [facility] [id number] HPI - General General Date of Admission: 02/24/25 Date of Service: 02/24/25 Chief Complaint: Last BM Friday night. Not passing flatus at home. HPI Narrative ANDREW POSADA, is a 59 M Was admitted with not moving his bowel, nausea vomitingsince Friday night. His last bowel movement on Friday was well-formed with noblood. He had APR with colostomy in [place] in March 2024. Prior to that he had chemotherapy about 10 days to 2 weeks ago, second chemotherapyregimen after 4 months. Denies fever or chills. In September 2024 he had bilateral nephrostomy in [facility]. In ED, patient had CT abdomen which showed multiple distended small bowel loops with air-fluid levels measuring up to 3.7 cm concerning for small bowel obstruction and possible transition in RLQ. [facility] Medical History Hypokalemia UTI (urinary tract infection) [...] 84.7 H, Lymph % (Auto) 4.5 L, Bowie % (Auto) 9.9, Eos % (Auto) 0.1, [...] hernia. 4. Inguinal hernias, bilaterally. Reading Location: [facility] Assessment & Plan Assessment/Plan (1) SBO [...] shock if needed Total time spent in nkud-ol-xorn encounter in discussion of advanced directive 17 minutes. Laboratory Results 02/24/25 07:35: WBC 7.8, RBC 3.77 L, Hgb 12.6 L, Hct 35.1 L, MCV 93.1, MCH 33.4 H, MCHC 35.9, RDW Std Deviation 49.7 H, RDW Coeff of Rosalee 14.9 H, Plt Count 111 L, MPV 9.5, Immature Gran % (Auto) 0.400, Neut % (Auto) 84.7 H, Lymph % (Auto) 4.5 L, Bowie % (Auto) 9.9, Eos % (Auto) 0.1, [...] hernia. 4. Inguinal hernias, bilaterally. Reading Location: [facility] KUB X-Ray 02/24/25 11:25 IMPRESSION: Tip of the nasogastric tube in the fundus of the stomach. Bilateral nephrostomy catheters. Bowel-gas pattern suggest adynamic/reflex ileus. Reading Location: [facility] Charges/Coding Visit Charges Inpatient E&M: 32770 Init Hosp L3 Procedures Hospitalists Procedures: 45249 Advncd Care Plan 30 Min 02/24/25 1527 Cosigner Signature (if applicable): CC: Dr. Handy Royal MD; No Primary Care Physician~ Signed [facility]05-08-2025 Discharge summary [facility] Medical Records Department [address] [place] [address] Emergency Department Summary 02/24/25 MR#: [id number] Acct: [id number] Name: ANDREW POSADA Rep #:[id number] : 1965 59 From: Gwyn Turner PCP: Care Physician,No Primary Status :ADM IN [id number] HPI History of Present Illness Chief Complaint: General Illness Informant: patient and spouse/S.O. Narrative Narrative: Presents generalized illness over the last 5 days. States unable to eat. Reports yesterday was ableto eat some soup at noon by supper came back up. Nausea. Colostomy March of last year performed in [place]. He had a colonoscopy finding a mass 2 weeks prior. They went to [place] due to knowing somebody with similar issues [...] Surgery, hospitalist This note was generated with [employer] software. It may contain incorrectwords, spelling, and [...] 84.7 H Lymph % (Auto) 4.5 L Bowie % (Auto) 9.9 Eos % (Auto) 0.1 [...] hernia. 4. Inguinal hernias, bilaterally. Reading Location: [facility] KUB X-Ray 02/24/25 11:25 IMPRESSION: Tip of the nasogastric tube in the fundus of the stomach. Bilateral nephrostomy catheters. Bowel-gas pattern suggest adynamic/reflex ileus. Reading Location: [facility] Discharge Plan Dx/Rx/DC Orders Clinical Impression: SBO (small bowel obstruction), Malignant neoplasm of rectum, Vomiting, Nephrostomy present Disposition Disposition: Acute Care Hospital [facility] Discharge Date/Time: 02/24/25 12:02 What to do if you have Problems For any increased pain, shortness of breath, bleeding, nausea or vomiting, chestpain, or any unexpected problems, contact your Primary Care Provider. Call [facility] ([phone]) or report tothe closest Emergency Room. Call 911 if necessary. 02/24/25 1430 Cosigner Signature (if applicable): CC: Dr. Guy Ho MD; No Primary Care Physician ~ Signed [facility]05-08-2025 Radiology Diagnostic study note [facility] Imaging Services [address] [place] [address] Abdomen Single View (Portable) MR#: [id number] Acct: [id number] Name: ANDREW POSADA Rep #: [id number] : 1965 M 59 From: Gabriela Polk MD PCP: Care Physician,No Primary Status: REG ER Study:Abdomen Single View (Portable) Date of Exam: 02/24/25 Exam# [id number] Ordering Dr: Gwyn Esquivel DO PROCEDURE: ABDOMEN [...] Esquivel DO; No Primary Care Physician ~ Central Office Repairer Supervisor: Signed [facility]05-08-2025 Radiology Diagnostic study note [facility] Imaging Services [address] [place], [place] [address] Abdomen/Pel W ORAL Cont Only MR#: [id number] Acct: [id number] Name: ANDREW POSADA Rep #: [id number] : 1965 M 59 From: Bessie Esquivel MD PCP: Care Physician,No Primary Status: REG ER Study:Abdomen/Pel W ORAL Cont Only Date of Ex am: 02/24/25 Exam# [id number] Ordering Dr: Gwyn Esquivel DO EXAM: CT [...] hernia. 4. Inguinal hernias, bilaterally. Reading Location: [facility] CC: Dr. Gwyn Esquivel, DO; No Primary Care Physician ~ Central Office Repairer Supervisor: Signed [facility]05-06-2025 Evaluation + Plan note* Assessment & Plan Note - Greg Mason MD - 02/22/2025 8:10 PM EDTAssociated Problem(s): Ureteral stricture Patient with b/l ureteral strictures as well as JOHN. Will plan for cystoscopy, b/l nephrostograms and UDS. If bladder is SAFE, will proceed with b/l reimplants. Then AUS in the future. [facility]05-06-2025 Miscellaneous Notes* Assessment & Plan Note - Greg Mason MD - 02/22/2025 8:10 PM EDTAssociated Problem(s): Ureteral stricture Patient with b/l ureteral strictures as well as JOHN. Will plan for cystoscopy, b/l nephrostograms and UDS. If bladder is SAFE, will proceed with b/l reimplants. Then AUS in the future. [facility] History of Present illness Narrative* Greg Mason MD - 02/22/2025 1:20 PM EDT UROLOGY OUTPATIENT CONSULTATION: HISTORY OF PRESENT ILLNESS Andrew Posada is a 59 y.o. 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 in [place] c/b dehiscence requiring end colostomy and rectal [...] Laterality: Bilateral; Surgeon: Carmen Chambers MD; Location: [facility] INTERVENTIONAL RADIOLOGY (VIR) PLACEMENT NEPHROSTOMY CATHETER PERCUTANEOUS W/ IMAGE GUIDANCE Bilateral 10/12/2024 Laterality: Bilateral; Surgeon: Jennifer Lebron DO; Location: [facility] INTERVENTIONAL RADIOLOG[facility] (VIR) SIGMOIDOSCOPY W/ BX N/A 06/25/2024 Laterality: N/A; Surgeon: Hilary Lewis MD; Location: [facility] PERIOP DRAINAGE BY CATHETER PERITONEAL/RETROPERITONEAL PERCUTANEOUS W/ IMAGING GUIDANCE Right 05/07/2024 Laterality: Right; Surgeon: Catherine Delatorre II, MD; Location: [facility] INTERVENT[facility]AL RADIOLOGY (CT) DRAINAGE BY CATHETER PERITONEAL/RETROPERITONEAL PERCUTANEOUS W/ IMAGING GUIDANCE N/A 04/30/2024 Laterality: N/A; Surgeon: Catherine Delatorre II, MD; Location: [facility] INTERVENT[facility]AL RADIOLOGY (CT) COLECTOMY Relevant Medications: [...] Greg Mason MD [facility] Evaluation note * Diagnosis Onset Date [...] of rectum chronic February 14, 2025 8:51am [facility] Work Phone: 1(618) 471-691401-15-2025 Evaluation note* Diagnosis Onset Date Resolution Status [...] of rectum chronic February 24, 2025 11:29am [facility] Work Phone: 1(536) 153-384701-10-2025 History of Present illness Narrative* Hilary Lewis [...] occasionally words are mis-transcribed.) documented in this [facility]01-10-2025 Instructions* Patient Instructions* Raffy Saravia - 10/29/2024 11:30 AM EST Images from the original note were not included. Colonoscopy Date: 04/04/25 Arrival Time: 630am Location: [place] [address] 1 Day Bowel Prep with MiraLAX and Dulcolax Preparing for Your Colonoscopy or Procedure Review this information when you receive it so that you are prepared for your procedure. Look for more information from Endoscopy Scheduling or check with your doctor. For a print-friendly version, please visit [email or web address]. Important to know: You may need to [...] days before your procedure, do not eat: [place] Nuts Leafy green Popcorn Fruit with skin [...] these medicines before this procedure, please call [phone] and ask to talk to a nurse. [...] not clear after this prep, please call [phone]. The procedure may need to be rescheduled. If you have a history of heart failure, kidney disease, cirrhosis of the liver, electrolyte problems, or chronic constipation, you may need a different bowel prep medicine. Please contact the nurse at [phone] for instructions. Day before your procedure Start [...] (no milk or cream) Garrett duane or lemon-pilot point soda Fruit juices you can see through, such as apple orwhite grape Gatorade, other sports drinks, or other drink mixes like Javad-Aid Popsicles (no fruit or cream) (no red or purple) Jell-O or other gelatin, without fruit (no red or purple) Clear broth or bouillon Do NOT have: Alcoholic drinks Milk Smoothies Milkshakes Cream Yogurt [place] juice Grapefruit juice Tomato juice Red or [...] as a living will or power of commercial attorney Photo identification, insurance card, and co-payment, if needed You need to have an adult come with you to your procedure You will be given medicine to help you relax during the procedure. For your safety, you will need aresponsible adult to drive you home after the procedure. Your backhaul driver needs to check in for the procedure with you. If your backhaul driver doesn t check in with you, we will need to speak to your backhaul driver before we can start your procedure. Your procedure will be delayed or canceled if we cannot speak to your backhaul driver. If your backhaul driver leaves the facility during the procedure, they need to give the staff a phone numberwhere they can be reached. Your backhaul driver needs to be within 30 minutes of the procedure location. If you take a cab, bus, or medical transportation, an adult other than the backhaul driver needs to ride with you for your safety. You should have an adult with you to help you at home after the procedure for at least 6 [address]. [address], operate machinery, drink alcohol, or make any legal decisions until the day after your procedure. For more information about having a colonoscopy at [facility], [email or web address]. 2013 - February 21, 2023, [facility] documented in this [facility]01-[facility]-2025 Evaluation + Plan note* Assessment & Plan Note - Greg Mason MD - 10/22/2024 10:22 PM EST Associated Problem(s): Ureteral stricture B/l ureteral stricture likely from radiation, will plan for bilateral reimplant depending on nephrostograms and UDS. [facility]01-03-2025 Miscellaneous Notes* Assessment & Plan Note - [...] is SAFE on UDS. documented in this [facility]Mer[facility] Evaluation + Plan note* Assessment & Plan Note - Greg Mason MD - 10/22/2024 10:21 PM EST Associated Problem(s): Mixed stress and urge urinary incontinence Patient with mixed urinary incontinence likely from APR and a history of pelvic radiation. Will be a good AUS candidate, but only if his bladder is SAFE on UDS. [facility]01-03-2025 History of Present illness Narrative* Greg Mason MD - 10/22/2024 2:20 PM EST UROLOGY OUTPATIENT CONSULTATION: HISTORY OF PRESENT ILLNESS Andrew Posada is a 58 y.o. 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 Greg Mason MD [facility] Nurse Note* Nursing Notes - Brittani Soria [...] and all discharge instructions in wheelchair with HEARING INSTRUMENT SPECIALIST. Patient will be driven home by a friend. [facility]2024 Miscellaneous Notes* Nursing Notes - Brittani Soria [...] and all discharge instructions in wheelchair with HEARING INSTRUMENT SPECIALIST. Patient will be driven home by a [...] yes Transport Request Mode of Transfer [facility] PCRM Discharge Note Patient discussed in medical [...] Port- had prior to admission, follows in [place] for chemo/radiology Medications No barriers anticipated in obtaining discharge medications. No prior authorizations anticipated. Reconciliation of medications to be completed by the medical team. Pt to discharge on po augmentin; no other concerns for high cost Yeddas Durable Medical Equipment Event monitor- Zimory will call the patient to verify address [...] Department Center 10/22/2024 2:20 PM [facility] [place] Arrive at: Arrive to 2nd Floor, Registration [address] [facility] 10/29/2024 11:30 AM Hilary Lewis General [facility] Gastrointestinal Surgery Outpatient Care [place] Arrive at: Arrive to 1st Floor Registration [...] discharge planning needs. DAVID Moreno Colorectal Surgery [phone] If any changes to this individualized plan of care during evening and weekend hours and assistance is needed, please page the composition roll maker and cutter [facility] at [phone]. * Plan of Care - Flory Perez [...] monitor Flory Perez MD General Surgery PGY-1 #[id number] * Nursing Notes - Yesy Barrios RN - 10/18/2024 12:32 AM EST Paged Flory Perez MD @ 0030 RE: Tim 13910: Please call [phone] regarding pt's recent urine incontinence. Thanks, Yesy [...] Pennington RN - 10/16/2024 5:53 PM EST @5553 paged Kori Cuellar MD- 28113: Tim: FYI, L neph tube is now pink like his R neph tube. thanks! [phone] * Nursing Notes - Rachael Hanley RN [...] 10/15/2024 6:45 PM EST Paged team:Andrew Posada [id number]: pt just had 8 beat run of v-tach. Pt asymptomatic Rachael [phone] * Plan of Care - Megan Winston [...] for questions or concerns. Megan Winston MD Corrective Therapist of Clinical Medicine Division of Nephrology * Nursing Notes - Susie Fuentes RN - 10/15/2024 9:57 AM EST Initial Assessment Referral Information Arrived From: emergency department Readmission Information Was patient readmitted within 30 Days?: No Information Source Information Source: patient , spouse Information Source Name: Brandon Posada Information Source Number: see demographic sheet Outpatient Providers Outpatient Providers Updated In IHIS: Yes Contact Information Blender/Braze Applicator/SW Added to Care Team: Yes This Ply Splicer is Primary Blender/Braze Applicator/SW: Yes Blender/Braze Applicator Name: Susie Fuentes Blender/Braze Applicator's Social Work Contact Name: Zully Aburto Contract Loader's Living Environment Lives With: spouse, child(brian), adult [...] preferred) Initial Discharge Planning Home Care Services (CALL CENTER RECEPTIONIST): No Home Therapies (CALL CENTER RECEPTIONIST): None DME (CALL CENTER RECEPTIONIST): None, Ostomy Supplies Medical Supplies (CALL CENTER RECEPTIONIST): Ostomy Supplies Patient Goal for Discharge: Get [...] Source Number: see demographic sheet Contact Information Blender/Braze Applicator/SW Added to Care Team: Yes This Ply Splicer is Primary Blender/Braze Applicator/SW: Yes Blender/Braze Applicator Name: Susie Fuentes Blender/Braze Applicator's Social Work Contact Name: Zully Aburto Contract Loader's Living Environment Lives With: spouse, child(brian), adult [...] at home, spouse to assist Port- had CALL CENTER RECEPTIONIST Colostomy- Had CALL CENTER RECEPTIONIST Medications No barriers anticipated in obtaining discharge [...] PM Greg Mason [facility] [place] Arrive at: Arrive to 2nd Floor, Registration [address] [facility] 10/29/2024 11:30 AM Hilary Lewis General and Gastrointestinal Surgery Outpatient Care [place] Arrive at: Arrive to 1st Floor Registration [...] discharge planning needs. AUDRA Moreno Colorectal Surgery [phone] For evening and weekend discharge assistance: Pager for composition roll maker and cutter PCR at [phone] Pager for composition roll maker and cutter [phone] * Plan of Care - Salian Mccain MD, PhD - 10/13/2024 10:22 PM EST Andrew Posada is a 58 y.o. male with a past medical history of colonic adenocarcinoma s/p LAR March 2024 in [place] c/b dehiscence requiring end colostomy and rectal [...] Salina Mccain MD-PhD Urologic Surgery, PGY-2 Pager: #[phone] * Plan of Care - Nuria Carey [...] IV sedation medications. Pt to travel to [id number] post procedure. Post procedure orders in place [...] surgery. Miguel A Holloway MD Integrated Interventional Recycle Driver PGY-6 * Nursing Notes - Margarita Bill [...] history of colonic adenocarcinoma s/p LAR in [place] c/b dehiscence requiring end colostomy and rectal [...] Laterality: N/A; Surgeon: Hilary Lewis MD; Location: [facility] PERIOP DRAINAGE BY CATHETER PERITONEAL/RETROPERITONEAL PERCUTANEOUS W/ IMAGING GUIDANCE Right 05/07/2024 Laterality: Right; Surgeon: Catherine Delatorre II, MD; Location: [facility] RADIOLOGY (CT) DRAINAGE BY CATHETER PERITONEAL/RETROPERITONEAL PERCUTANEOUS W/ IMAGING GUIDANCE N/A 04/30/2024 Laterality: N/A; Surgeon: Catherine Delatorre II, MD; Location: [facility] INTERVENTIONAL RADIOLOGY (CT) COLECTOMY Nutrition History [...] Lower Back, Midaxillary Line): deferred Muscle Wasting: Somers Region (Temporalis Muscle): severe Clavicle Bone Region (Pectoralis Major, Trapezius Muscles): severe Shoulder and Acromion Process Region (Deltoid Muscle): severe Dorsal Hand (Interosseous Muscle): moderate Scapular Bone Region (Trapezius, Supraspinatus, Infraspinatus Muscles): deferred Anterior Thigh and Patellar Region (Quadriceps Muscles): severe Posterior Calf Region (Gastrocnemius Muscle): severe Estimated Nutrition Needs Wt used: 49.2 kg - CBW EEN (kcal/d): 5762-0185 (30-35kcal/kg CBW) EPN (g pro/d): 59-73 (1.2-1.5g/kg [...] 10/11/2024 11:23 PM EST On admission to [facility] room 82261, from outside facility Pt. Arrived via private transportation A&Ox3 denies pain, chest pain, or SOB. Pt. VS are WDL, and a dual RN initial assessment of skin condition was performed by Lakia Dominguez RN and Mele Vo RN. Skin Assessment: Skin within defined limits:Yes Elder Score: 21 LDA Added:Yes Lakia Dominguez RN [facility]* Nursing Notes - Susie [...] yes Transport Request Mode of Transfer Private [facility] PCRM Discharge Note Patient discussed in medical [...] Port- had prior to admission, follows in [place] for chemo/radiology Medications No barriers anticipated in [...] N/A Transportation Transportation will be provided by [facility]. Education Discharge education provided by the medical team and updated in the After Visit Summary. Bedside RN to provide neph tube dressing supplies for discharge and review care. Follow Up(s) Any follow up requested by the medical team arranged. Appointments in the After Visit Summary. Future Appointments Provider Department Center 10/22/2024 2:20 PM Greg Farooq Mason [facility] [place] Arrive at: Arrive to 2nd Floor, Registration [address] EEI 10/29/2024 11:30 AM Hilary Lewis [facility] Outpatient [facility] [place] Arrive at: Arrive to 1st Floor Registration [...] discharge planning needs. DAVID Moreno Colorectal Surgery [phone] If any changes to this individualized plan of care during evening and weekend hours and assistance is needed, please page the composition roll maker and cutter PCRM at [phone]. [facility]2024 Plan of care note* Plan of Care [...] monitor Flory Perez MD General Surgery PGY-1 #[id number] [facility] Work Phone: 1(438) 500-106912-30-2024 Nurse Note* Nursing Notes - Yesy Barrios RN - 10/18/2024 12:32 AM EST Paged Flory Perez MD @ 0030 RE: Tim [id number]: Please call [phone] regarding pt's recent urine incontinence. Thanks, Yesy Call back received: MD to come to bedside. MD at bedside @ 0100 [facility]12-29-2024 History of Present illness Narrative* Julito Cage MD - 10/17/2024 9:20 AM EST Colorectal Surgery Daily Progress Note Attending: [facility] ( [facility] Length of Stay: 6 CC: Elevated [...] 12:20 PM) - Reviewed and agree with asset recovery specialist's recommendations. Any conditions listed below are present [...] Surgery Fellow, PGY-6 10/16/2024 * Wong Todd [facility] - 10/15/2024 3:19 PM EST Department of Pharmacy Renal Documentation Note Patient: Andrew Posada [facility] Assessment and Plan: The patient is [...] any questions, Name: Wong Todd RPH Phone: [phone] Date/Time: 10/15/2024 3:19 PM * Siria Lockett - 10/15/2024 2:46 PM EST Introduced self and role of the spring tester to patient/family. Provided emotional and spiritual support and the patient/family responded by sharing their experience and discussed the following: Pt sleeping, at bedside. reports that they are doing ok and are getting everything they need. She reports that they have good support. Patient/family encouraged to request a spring tester as needed. Chaplains are available in-house 24 hours a day and 7 days a week. For urgent matters in the Catherine,please page [phone]. If the request is not urgent, please enter a consult. Consults are responded to within 24 hours. Chaplain Siria Lockett, DDiv,MAHL, [facility] Senior Soaping Department SupervisorCatherine chin 12/05 On-Call Pager Catherine ([phone]) 10/15/24 1400 Clinical Encounter Type Visited With Family Visit Type Introduction Pastoral Time Spent 15 min Referral (Rounding) Spiritual Assessment Spiritual Observation Spirituality helpful Emotional Observation Coping well Support Observation Some support Interventions Provided Active listening;Supportive presence Facilitated Verbalization of feelings Industrial Hygiene Engineer Education Industrial Hygiene Engineer Service Available Yes Educated Family Plan of Care Continue Visiting PRN * Josh Smith [facility] - 10/15/2024 6:55 AM EST Department of Pharmacy Renal Documentation Note Patient: Andrew Posada Room/Bed: [address] [place] [address] Assessment and Plan: The patient is currently [...] Q8H. I have modified the orders in [facility] to reflect the above plan.. Please contact with any questions, Name: Josh Smith [facility] Phone: [phone] Date/Time: 10/15/2024 6:55 AM * Flory Gregory APRN-HOOK AND EYE SEWING MACHINE OPERATOR - 10/14/2024 3:15 PM EST Interventional Radiology [...] - these can be obtained from Distribution WD#[id number] Please send patient home with rx for [...] significant for colonic adenocarcinoma s/p LAR in [place]/b dehiscence requiring end colostomy and rectal stump [...] monitor for post-obstructive diuresis Megan Winston MD Corrective Therapist of Clinical Medicine Division of Nephrology Objective: [...] met with patient to introduce self, explain social security benefits interviewer role during inpatient stay, and answerquestions. Patient was alert and oriented x3 and agreeable to SW visit. Spouse - Opal - was also in the room during this assessment. Contact Information: Blender/Braze Applicator Name: See chart Blender/Braze Applicator's Phone Number: See chart Social Work Contact Name: Zully Aburto Contract Loader's Advance Directive Discussion: Patient does not have any advance directives on file. SW inquired whether or not patient is interested in completing health care power of commercial attorney and/or living will paperwork during this visit. SW reviewed the documents, discussed the benefits of completing them, and provided education re: Legal NOK (LNOK). Patient declined interest in completing the documents at this time. Legal NOK: Spouse, Opal Keller, ph: [phone] Patient also lives at home with 4/8 [...] reported they are well supported by the Mosque community in which they live. Source Of [...] has the electric, gas, oil, or water Zimory threatened to shut off services in your [...] support as needed. AUGUSTO shi (they/she) P Contract Loader * Julito Cage MD - 10/13/2024 10:56 [...] history of colonic adenocarcinoma s/p LAR in [place] c/b dehiscence requiring end colostomy and rectal [...] 12:20 PM) - Reviewed and agree with asset recovery specialist's recommendations. Any conditions listed below are present [...] tubes Carmelina Sanders DO, FACS, FASCRS, MS House Servant Pediatric and Adult Colorectal Surgery * Nuria [...] Intact Mobility Assessment: Supine to Sit Mobility [place] Level: Supine->Sit: stand-by assist Bed Features/Set-up: Supine->Sit: Head of bed elevated, Use of bed rail Skilled Rationale: Verbal cues, Positioning Skilled Intervention/Details: Supine->Sit: pt cued on logroll to the right Sit to Supine Mobility [place] Level: Sit->Supine: stand-by assist Bed Features/Set-up: Sit->Supine: Head of bed elevated Skilled Rationale: Verbal cues, Positioning Balance: Sitting Balance Static Sitting-Level of Assistance: Independent Dynamic Sitting-Level of Assistance: Supervision Standing Balance Static Standing-Level of Assistance: Stand-by assist Dynamic Standing-Level of Assistance: Stand-by assist Standing-Balance Support: Gait belt Skilled Rationale: Verbal cues, Full extension to upright positioning/posture Transfer Assessment: Sit to Stand Transfer [place] Level: Sit->Stand: stand-by assist Assistive Device: Sit->Stand: gait belt Skilled Rationale: Verbal cues, Full extension to upright positioning/posture Skilled Intervention/Details: Sit->Stand: The pt stood 1x from EOB Stand to Sit Transfer [place] Level: Stand->Sit: stand-by assist Assistive Device: Stand->Sit: gait belt Skilled Rationale: Verbal cues, Controlled descent for sitting Skilled Intervention/Details: Stand->Sit: pt with good eccentric control Gait/Functional Mobility: Gait Assessment [place] Level: Gait: stand-by assist Assistive Device: Gait: [...] progressed to SBA Stairs: Outcome Score(s): [facility] Basic Mobility Inpatient Short Form Turning over [...] a railin - A Little Assistance [facility] Mobility Raw Score: 18 [facility] Mobility Functional Limitation: 46.58% Impaired in Basic Mobility Interventions: Assessment & Plan: Patient has a history of colon adenocarcinoma s/p LAR in March 2024 in [place] c/b dehiscence requiring end colostomy and rectal [...] history of colonic adenocarcinoma s/p LAR in [place] c/b dehiscence requiring end colostomy and rectal [...] N/A; Surgeon: Hilary Lewis MD; [facility]: [facility] PERIOP DRAINAGE BY CATHETER PERITONEAL/RETROPERITONEAL PERCUTANEOUS W/ IMAGING GUIDANCE Right 05/07/2024 Laterality: Right; Surgeon: Catherine Delatorre II, MD; Location: [facility] INTERVENTIONAL RADIOLOGY (CT) DRAINAGE BY CATHETER [...] Lower Back, Midaxillary Line): deferred Muscle Wasting: Somers Region (Temporalis Muscle): severe Clavicle Bone Region (Pectoralis Major, Trapezius Muscles): severe Shoulder and Acromion Process Region (Deltoid Muscle): severe Dorsal Hand (Interosseous Muscle): moderate Scapular Bone Region (Trapezius, Supraspinatus, Infraspinatus Muscles): deferred Anterior Thigh and Patellar Region (Quadriceps Muscles): severe Posterior Calf Region (Gastrocnemius Muscle): severe Estimated Nutrition Needs Wt used: 49.2 kg - CBW EEN (kcal/d): 1852-6802 (30-35kcal/kg CBW) EPN (g pro/d): 59-73 (1.2-1.5g/kg [...] criteria (2012) Toshia Galan RD, LD, [facility] Pager: #[phone] * Katrina Jamil [facility] - 10/12/2024 10:49 AM EST Department of Pharmacy Renal Documentation Note Patient: Andrew Posada Room/Bed: [facility] Assessment and Plan: The patient is currently [...] contact with any questions, Name: Katrina Jamil [facility] Phone: [phone] Date/Time: 10/12/2024 10:49 AM * Anselmo Lindsey [...] history of colonic adenocarcinoma s/p LAR in [place] c/b dehiscence requiring end colostomy and rectal [...] General Surgery PGY-1 * Cj G Matthew [facility] - 10/12/2024 12:23 AM EST Department of Pharmacy Outside Facility Transfer Note Patient: Andrew Posada Room/Bed: 66635/A Patient has transferred from the Emergency Department at [facility] . I have contacted the facility and confirmed the following antimicrobial, antiepileptic, and anticoagulant medications were received by the patient prior to arrival at [facility]: Antimicrobials: Ceftriaxone 1 g on 10/11 @ 1604 Zosyn 4.5 g on 10/11 @ 1358 Please feel free to contact me with any further questions. Name: Cj Jules Matthew Lisa Phone #: [phone] Date/Time: 10/12/2024 12:23 AM documented in this [facility] Nurse Note* Nursing Notes - Yesy Barrios RN - 10/17/2024 2:43 AM EST @ 3032 paged Kori Cuellar MD: Critical Hgb 6.4. Will need consent and type and cross. Thanks! called back @ 0300 and stated will come to bedside [facility]12-28-2024 Nurse Note* Nursing Notes - Flory Pennington RN - 10/16/2024 5:53 PM EST @2870 paged Kori Cuellar MD- [phone]: Tim: FYI, L neph tube is now pink like his R neph tube. thanks! [phone] [facility]12-28-2024 Consult note* Flip Montoya MD - 10/16/2024 [...] colon adenocarcinoma s/p lower anterior resection in [place] c/b dehiscence that resulted in end colostomy [...] care of this patient. Enrrique Apodaca MD Corrective Therapistupholstery trimmer-Clinical [facility] Work Phone: 1(551) 561-803012-28-2024 Consult note* Flip Montoya MD - 10/16/2024 [...] colon adenocarcinoma s/p lower anterior resection in [place] c/b dehiscence that resulted in end colostomy [...] care of this patient. Enrrique Apodaca MD Corrective Therapistupholstery trimmer-Clinical [facility] * Rajesh Acevedo, DO - 10/13/2024 4:23 PM ESTAssociated Order(s): IP CONSULT TO NEPHROLOGY Images from the original note were not included. NEPHROLOGY INPATIENT CONSULT NOTE Reason for Consultation: INOCENCIA Current Provider: Hilary Lewis MD Hospital Day: 2 Bed: 21907/A Consult Service: Catherine Nephrology I saw Andrew Posada at the [facility] on 10/13/2024. History of Present Illness: Andrew Posada is a 58 y.o. male who we have been consulted to see on 10/13/2024 Patient has a past medical history of colon adenocarcinoma s/p lower anterior resection in [place] c/b dehiscence that resulted in end colostomy and rectal stump that became infected abscess requiringI&D in April 2024 and has since been on chemotherapy and radiation therapy. Patient presented from oncologist's office on 10/11 with abnormal labs: leukocytosis to 24.5, creat 3.2, Hgb 7, and BUN 64. He was instructed to present to the [place] ED for treatment where he received fluid [...] Surgeon: Catherine Delatorre II, MD; [facility] INTERVENTIONAL RADIOLOGY (CT) DRAINAGE BY CATHETER PERITONEAL/RETROPERITONEAL PERCUTANEOUS W/ IMAGING GUIDANCE N/A 04/30/2024 Laterality: N/A; Surgeon: Catherine Delatorre II, MD; [facility] INTERVENTIONAL RADIOLOGY (CT) COLECTOMY Scheduled Meds: Acetaminophen [...] colon adenocarcinoma s/p lower anterior resection in [place] c/b dehiscence that resulted in end colostomy and rectal stump that became infected abscess requiring I&D in April 2024 and has since been on chemotherapy and radiation therapy. Nephrology was consulted for INOECNCIA. Non-oliguric INOCENCIA Baseline Cr 0.7 Cr at [...] Strict I/Os There is no need for FUEL OIL TRUCK DRIVER at this time Renal protective measures: Have [...] made to ensure accuracy; however, inadvertent computerized morning show producer errors may be present. Please contact us via web-exchange - Nephrology - Catherine 1 Fellow. For urgent/stat calls 5pm to 7am or all day on the weekend, please page the on- call Neph fellow on Qgenda ( Internal Medicine> Nephrology > Catherine ) . Rajesh Acevedo, DO Via secure chat (preferred) or pager: [phone] Clinical Nephrology Fellow PGY - 4 Associated [...] the patient closely. Luis Miguel Smallwood MD [phone] upholstery trimmer Division of Nephrology * Miguel A Holloway MD - 10/12/2024 2:47 PM ESTAssociated Order(s): IP CONSULT TO INTERVENTIONAL RADIOLOGY Interventional Radiology Consult Note [facility] Charge [id number] [facility] Charge [id number] Admission Date: 10/11/2024 Requesting Provider/Service: Anselmo Lindsey [...] the procedure, please reach out to IR composition roll maker and cutter. -please keep NPO at midnight. - INR [...] consult to procedure. Questions For questions regarding [facility] Inpatients please call [phone]. For questions regarding [facility] Inpatients please call [phone]. For questions regarding Biopsies, please call [phone]. * Salina Mccain MD, PhD - 10/12/2024 2:16 AM ESTAssociated Order(s): IP CONSULT TO SURGERY - UROLOGY UROLOGY CONSULT NOTE Patient: Andrew Posada Consult Reason: Urinary incontinence after LAR History of Present Illness Andrew Posada is a 58 y.o. male with a past medical history of colonic adenocarcinoma s/p LAR March 2024 in [place] c/b dehiscence requiring end colostomy and rectal stump abscess s/p IR drainage in April 2024 s/p chemoradiation. He presented today to his oncologist for routine follow-up where labs showed leukocytosis to 24.5, Hgb 7, creat 3.2, and BUN 64. He was instructed to present to the [place] ED for treatment where he received fluid [...] Laterality: N/A; Surgeon: Hilary Lewis MD; Location: [facility] PERIOP DRAINAGE BY CATHETER PERITONEAL/RETROPERITONEAL PERCUTANEOUS W/ IMAGING GUIDANCE Right 05/07/2024 Laterality: Right; Surgeon: Catherine Delatorre II, MD; Location: [facility] INTERVENTIONAL RADIOLOGY (CT) DRAINAGE BY CATHETER PERITONEAL/RETROPERITONEAL PERCUTANEOUS W/ IMAGING GUIDANCE N/A 04/30/2024 Laterality: N/A; Surgeon: Catherine Delatorre II, MD; [facility] INTERVENTIONAL [facility] (CT) COLECTOMY ALLERGIES [...] study was sent from an outside facility [facility] for support of clinical care of [...] Ostomy is only seen on the wider [id number] images. In the upper aspect of the [...] colonic adenocarcinoma s/p LAR March 2024 in [place] c/b dehiscence requiring end colostomy and rectal [...] will be discussed with Dr. Meadows, attending composition roll maker and cutter. Plans are not considered finalized until the attending has attested the note. Salina Mccain MD, PhD Urologic Surgery, PGY-2 [id number] 10/12/24 Please page the Urology consult pager with questions or concerns (Found in QGenda) [facility] --> Urology --> Consults [facility] --> Urology --> [facility] ALL URGENT ISSUES SHOULD BE PAGED TO THE ABOVE PAGER - Epic chat is not a reliable method of urgent communication with a surgical service at any time. - The person who wrote this note may be off service, post call, or otherwise unavailable. documented in this encounterOS[facility]12[facility] Nurse Note* Nursing Notes - Rachael Hanley RN - 10/15/2024 6:49 PM EST Patient having bradycardia today. EKG completed at 0900 and again at 1230. IHIS chat continued withKori Cuellar MD. 1600: Sent message. Pt maintaining HR in the 30's. Do you want to treat this? Responded: Will reach out to cards. Make him PCU. [facility]12-27-2024 Nurse Note* Nursing Notes - Rachael Hanley RN - 10/15/2024 6:45 PM EST Paged team:Andrew Posada [phone]: pt just had 8 beat run of v-tach. Pt asymptomatic Rachael [phone] [facility]12-27-2024 Plan of care note* Plan of Care [...] for questions or concerns. Megan Winston MD Corrective Therapist of Clinical Medicine Division of Nephrology [facility]12-27-2024 Nurse Note* Nursing Notes - Susie Fuentes RN - 10/15/2024 9:57 AM EST Initial Assessment Referral Information Arrived From: emergency department Readmission Information Was patient readmitted within 30 Days?: No Information Source Information Source: patient , spouse Information Source Name: Brandon Posada Information Source Number: see demographic sheet Outpatient Providers Outpatient Providers Updated In IHIS: Yes Contact Information Blender/Braze Applicator/SW Added to Care Team: Yes This Ply Splicer is Primary Blender/Braze Applicator/SW: Yes Blender/Braze Applicator Name: Susie Fuentes Blender/Braze Applicator's Social Work Contact Name: Zully Aburto Contract Loader's Living Environment Lives With: spouse, child(brian), adult [...] Contacted Financial Assistance/Updated Medical Team: Yes ([employer] approved 100% until 05/03/2025, pt is not eligible to reapply for HCAP until 12/22/2024) Prescription Coverage: No (Pt able to cover costs of medications) Pharmacy updated in IS: Yes ([facility] is preferred) Initial Discharge Planning Home Care Services (CALL CENTER RECEPTIONIST): No Home Therapies (CALL CENTER RECEPTIONIST): None DME (CALL CENTER RECEPTIONIST): None, Ostomy Supplies Medical Supplies (CALL CENTER RECEPTIONIST): Ostomy Supplies Patient Goal for Discharge: Get [...] Source Number: see demographic sheet Contact Information Blender/Braze Applicator/SW Added to Care Team: Yes This Ply Splicer is Primary Blender/Braze Applicator/SW: Yes Blender/Braze Applicator Name: Susie Fuentes Blender/Braze Applicator's Social Work Contact Name: Zully Aburto Contract Loader's Living Environment Lives With: spouse, child(brian), adult [...] at home, spouse to assist Port- had CALL CENTER RECEPTIONIST Colostomy- Had CALL CENTER RECEPTIONIST Medications No barriers anticipated in obtaining discharge [...] Greg Capri Mason [facility] [place] Arrive at: Arrive to 2nd Floor, Registration [address] EEI 10/29/2024 11:30 AM Hilary Lewis [facility] Outpatient Care [place] Arrive at: Arrive to 1st Floor Registration [...] discharge planning needs. AUDRA Moreno Colorectal Surgery [phone] For evening and weekend discharge assistance: Pager for composition roll maker and cutter PCRM at [phone] Pager for composition roll maker and cutter [phone] [facility]12-27-2024 Hospital Discharge instructions* Discharge Instructions* Susie Fuentes RN - 10/15/2024 8:57 AM EST Images from the original note were not included. Please have your labs drawn prior to your Dr. Lewis appointment on 10/29/23 COLORECTAL ADDITIONAL CONTACTS For Concerns During Weekend or Evening Hours: -If you have questions or concerns call and ask the bulldozer operator to page the surgical nurse composition roll maker and cutter. Reminder: Funny Or Die messaging goes unmonitored during evenings and weekends. Any concerns or questions during this time, please call using instructions above. Clinic Office Main Number: [phone] Colorectal non-Cancer: [phone] Fax Line: [phone] Blender/Braze Applicator: Susie Fuentes ([facility]) BILLING RELATED QUESTIONS, please call [phone] ENTEROSTOMAL THERAPY RN + OSTOMY Clinic+ IMPORTANT: Automated Post Discharge Call Patient Information As part of your care, we will call you at the primary number we have on file, the day after you aredischarged at 9:30 a.m. to check on you. Please expect a two-minute automated telephone call from the hospital. This call will come from [phone]. If you are unable to answer or do not receive the automated call, please call [phone] to complete this important evaluation. By answering the phone evaluation, a [facility] nurse will be notified if you have [...] with enriched, refined white flour Soda crackers [place] Toasts Foods to avoid: Bread containing bran [...] or seeds Applesauce Pears, peaches Peeled apricots [place] cherries Ripe banana Ripe avocado Fruit [...] fat free milks Coffee Decaffeinated coffee Tea [place] Carbonated beverages Fruit juice (except prune juice) Foods to avoid: All other beverages Miscellaneous Foods allowed: Salt used in moderation Mild spices Gravy Cream sauces Foods to avoid: Rich, highly spiced, or seasoned foods and sauces Fried foods Pickles Olives Silvia 1999 - April 13, 2020, [facility]. This handout is for informational purposes only. Talk with your doctor or healthcare team if you have any questions about your care. For more health information, call the [employer] for Health Information at [phone] or email: [email or web address]. * Discharge Instr - Notify* Susie Fuentes RN - 10/15/2024 8:47 AM EST For Concerns During Weekend or Evening Hours: -If you have questions or concerns call and ask the bulldozer operator to have the general surgery chief resident paged. Reminder: Funny Or Die messaging goes unmonitored during evenings and weekends. Any concerns or questions during this time, please call using instructions above. Clinic Office Main Number: [phone] NOTIFY PHYSICIAN: SYMPTOMS WOUND INFECTION - Increase [...] be changed by Interventional Radiology. Please call [phone] to schedule this appointment and with any questions or concerns you may have regarding the nephrostomy tube. If you have questions or concerns, please call Interventional Radiology at After-Hours or on Weekends, please call the Hospital Window Display Designer at [phone] and ask them for the Interventional Recycle Driver On-Call Ostomy Care Perform colostomy care as [...] monitor, subject to change. documented in this encounterMer[facility]12-25-2024 Plan of care note* Plan of Care - Salina Mccain MD, PhD - 10/13/2024 10:22 PM EST Andrew Posada is a 58 y.o. male with a past medical history of colonic adenocarcinoma s/p LAR March 2024 in [place] c/b dehiscence requiring end colostomy and rectal [...] Salina Mccain MD-PhD Urologic Surgery, PGY-2 Pager: #[phone] [facility]12-25-2024 Consult note* Rajesh Acevedo, - 10/13/2024 4:23 PM ESTAssociated Order(s): IP CONSULT TO NEPHROLOGY Images from the original note were not included. NEPHROLOGY INPATIENT CONSULT NOTE Reason for Consultation: INOCENCIA Current Provider: Hilary Lewis MD Hospital Day: 2 Bed: 56803/A Consult Service: Catherine Nephrology I saw Andrew Posada at the [facility] on 10/13/2024. History of Present Illness: Andrew Posada is a 58 y.o. male who we have been consulted to see on 10/13/2024 Patient has a past medical history of colon adenocarcinoma s/p lower anterior resection in [place] c/b dehiscence that resulted in end colostomy and rectal stump that became infected abscess requiringI&D in April 2024 and has since been on chemotherapy and radiation therapy. Patient presented from oncologist's office on 10/11 with abnormal labs: leukocytosis to 24.5, creat 3.2, Hgb 7, and BUN 64. He was instructed to present to the [place] ED for treatment where he received fluid [...] N/A; Surgeon: Hilary Lewis MD; Location: [facility] PERIOP DRAINAGE BY CATHETER PERITONEAL/RETROPERITONEAL PERCUTANEOUS W/ IMAGING GUIDANCE Right 05/07/2024 Laterality: Right; Surgeon: Catherine Delatorre II, MD; Location: [facility] INTERVENTIONAL RADIOLOGY (CT) DRAINAGE BY CATHETER PERITONEAL/RETROPERITONEAL PERCUTANEOUS W/ IMAGING GUIDANCE N/A 04/30/2024 Laterality: N/A; Surgeon: Catherine Delatorre II, MD; Location: [facility] INTERVENTIONAL RADIOLOGY (CT) COLECTOMY Scheduled Meds: Acetaminophen [...] colon adenocarcinoma s/p lower anterior resection in [place] c/b dehiscence that resulted in end colostomy [...] Strict I/Os There is no need for FUEL OIL TRUCK DRIVER at this time Renal protective measures: Have [...] made to ensure accuracy; however, inadvertent computerized morning show producer errors may be present. Please contact us via web-exchange - Nephrology - Catherine 1 Fellow. For urgent/stat calls 5pm to 7am or all day on the weekend, please page the on- call Neph fellow on Qgenda ( Internal Medicine> Nephrology > Catherine ) . Rajesh Acevedo, DO Via secure chat (preferred) or pager: [phone] Clinical Nephrology Fellow PGY - 4 Associated [...] will continue to follow the patient closely. Lui sMiguel Smallwood MD 6902 upholstery trimmer Division of Nephrology [facility] Work Phone: [phone] Plan of care note* Plan of Care [...] safely navigate home and community. Outcome: Ongoing [facility]12-24-[facility]24 Procedure note* Miguel A Holloway MD - [...] care. Miguel A Holloway MD Integrated Interventional Recycle Driver PGY-6 [facility] Work Phone: [phone] Procedure note* Miguel A Holloway MD - [...] care. Miguel A Holloway MD Integrated Interventional Recycle Driver PGY-6 documented in this encounterMercy Health Tiffin [facility]12-24-2024 Nurse Note* Nursing Notes - Bridget Lucero RN - 10/12/2024 7:02 PM EST Interventional Radiology procedure completed with IR Attending Dr. Lebron of percutaneous bilateral nephrostomy tube placement. Pt tolerated procedure with moderate sedation and local numbing agentand IV sedation medications. Pt to travel to [address] post procedure. Post procedure orders in place and include strict 2 hour bedrest [facility]12-24-2024 Plan of care note* Plan of Care [...] Malnutrition Goal: Improved Nutritional Intake Outcome: Progressing [facility]12-24-2024 Plan of care note* Plan of Care [...] surgery. Miguel A Holloway MD Integrated Interventional Recycle Driver PGY-6 [facility]12-24-2024 Consult note* Miguel A Holloway MD - 10/12/2024 2:47 PM ESTAssociated Order(s): IP CONSULT TO INTERVENTIONAL RADIOLOGY Interventional Radiology Consult Note [facility] Charge [id number] [facility] Charge [id number] Admission Date: 10/11/2024 Requesting Provider/Service: Anselmo Lindsey [...] Allergies: No Known Allergies Impression/ plan: Mr. Psoada is a 58 yr old man with [...] the procedure, please reach out to IR composition roll maker and cutter. -please keep NPO at midnight. - INR [...] consult to procedure. Questions For questions regarding [facility] Inpatients please call [phone]. For questions regarding [facility] Inpatients please call [phone]. For questions regarding Biopsies, please call [phone]. [facility]12-24-[facility] Nurse Note* Nursing Notes - Margarita Bill RN - 10/12/2024 2:00 PM EST Placed NG in pt and educated pt bridling the NG pt refused it and later on pt NG pull out when getting up. RN push back and again educated pt why bridling would be best for him but again he refused it also educated pt at bedside [facility]12-24-2024 Plan of care note* Plan of Care [...] history of colonic adenocarcinoma s/p LAR in [place] c/b dehiscence requiring end colostomy and rectal [...] Laterality: N/A; Surgeon: Hilary Lewis MD; Location: [facility] PERIOP DRAINAGE BY CATHETER PERITONEAL/RETROPERITONEAL PERCUTANEOUS W/ IMAGING GUIDANCE Right 05/07/2024 Laterality: Right; Surgeon: Catherine Delatorre II, MD; Location: [facility] INTERVENTIONAL RADIOLOGY (CT) DRAINAGE BY CATHETER PERITONEAL/RETROPERITONEAL PERCUTANEOUS W/ IMAGING GUIDANCE N/A 04/30/2024 Laterality: N/A; Surgeon: Catherine Delatorre II, MD; Location: [facility] INTERVENTIONAL RADIOLOGY (CT) COLECTOMY Nutrition History [...] Lower Back, Midaxillary Line): deferred Muscle Wasting: Somers Region (Temporalis Muscle): severe Clavicle Bone Region (Pectoralis Major, Trapezius Muscles): severe Shoulder and Acromion Process Region (Deltoid Muscle): severe Dorsal Hand (Interosseous Muscle): moderate Scapular Bone Region (Trapezius, Supraspinatus, Infraspinatus Muscles): deferred Anterior Thigh and Patellar Region (Quadriceps Muscles): severe Posterior Calf Region (Gastrocnemius Muscle): severe Estimated Nutrition Needs Wt used: 49.2 kg - CBW EEN (kcal/d): 3826-7913 (30-35kcal/kg CBW) EPN (g pro/d): 59-73 (1.2-1.5g/kg [...] Toshia Galan RD, LD, CNSCPager: #[phone] [facility]12-24-2024 Consult note* Salina Mccain MD, PhD - 10/12/2024 2:16 AM ESTAssociated Order(s): IP CONSULT TO SURGERY - UROLOGY UROLOGY CONSULT NOTE Patient: Andrew Posada Consult Reason: Urinary incontinence after LAR History of Present Illness Andrew Posada is a 58 y.o. male with a past medical history of colonic adenocarcinoma s/p LAR March 2024 in [place] c/b dehiscence requiring end colostomy and rectal stump abscess s/p IR drainage in April 2024 s/p chemoradiation. He presented today to his oncologist for routine follow-up where labs showed leukocytosis to 24.5, Hgb 7, creat 3.2, and BUN 64. He was instructed to present to the [place] ED for treatment where he received fluid [...] N/A; Surgeon: Hilary Lewis MD; Location: [facility] PERIOP DRAINAGE BY CATHETER PERITONEAL/RETROPERITONEAL PERCUTANEOUS W/ IMAGING GUIDANCE Right 05/07/2024 Laterality: Right; Surgeon: Catherine Delatorre II, MD; Location: [facility] INTERVENTIONAL RADIOLOGY (CT) DRAINAGE BY CATHETER PERITONEAL/RETROPERITONEAL PERCUTANEOUS W/ IMAGING GUIDANCE N/A 04/30/2024 Laterality: N/A; Surgeon: Catherine Delatorre II, MD; Location: [facility] INTERVENTIONAL RADIOLOGY (CT) COLECTOMY ALLERGIES No [...] study was sent from an outside facility [facility] for support of clinical care of [...] Ostomy is only seen on the wider [id number] images. In the upper aspect of the [...] colonic adenocarcinoma s/p LAR March 2024 in [place] c/b dehiscence requiring end colostomy and rectal [...] referral Patient will be discussed with Dr. Meadwos, attending composition roll maker and cutter. Plans are not considered finalized until the attending has attested the note. Salina Mccain MD, PhD Urologic Surgery, PGY-2 [id number] 10/12/24 Please page the Urology consult pager with questions or concerns (Found in QGenda) [facility] --> Urology --> Consults [facility] --> Urology --> [facility] ALL URGENT ISSUES SHOULD BE PAGED TO THE ABOVE PAGER - Epic chat is not a reliable method of urgent communication with a surgical service at any time. - The person who wrote this note may be off service, post call, or otherwise unavailable. [facility] Work Phone: [phone] 286-973712-23-2024 Nurse Note* Nursing Notes - Lakia Dominguez RN - 10/11/2024 11:23 PM EST On admission to [facility] room 36848, from outside facility Pt. Arrived via private transportation A&Ox3 denies pain, chest pain, or SOB. Pt. VS are WDL, and a dual RN initial assessment of skin condition was performed by Lakia Dominguez RN and Mele Vo RN. Skin Assessment: Skin within defined limits:Yes Elder Score: 21 LDA Added:Yes Lakia Dominguez RN [facility]11-13-2024 History of Present illness Narrative* Hilary Lewis MD - 09/01/2024 2:30 PM EST Images from the original note were not included. Attending Attestation I have seen and examined the patient on 09/01/2024. I reviewed the BAG FILLER MACHINE OPERATOR's note and agree with the findings and [...] dictation but occasionally words are mis-transcribed.) * Shruthi Capri Welch, DRIVER MESSENGER-HOOK AND EYE SEWING MACHINE OPERATOR - 09/01/2024 2:30 PM EST COLORECTAL SURGERY [...] arise. BETHANIE Nye documented in this encounterOS[facility]11-13-2024 Instructions* Patient Instructions* Lisandra Castillo - 09/01/2024 2:30 PM EST Magnetic Resonance Imaging (MRI) Date: 10/06/24 Arrival Time: 350pm Location: [place] [address] If you have questions or need to reschedule, please call us at [phone] If pictures are being taken of your [...] can contact our Patient Experience team at: [facility], [facility], [facility]: [phone] [facility]: [phone] [facility]: [phone] [facility] and [facility]: [phone] Magnetic Resonance Imaging (MRI) is a safe, [...] Jewelry Credit cards Pocket knife Money clip [place] Watch An IV may be started in [...] or leave alone. documented in this encounterOS[facility]09-26-[address] [facility]09-06-2024 Surgery Postoperative evaluation and management note* Op Note - Hilary Lewis MD - 06/25/2024 12:26 PM EDT Pre-op Diagnosis: Rectal cancer Post-op Diagnosis: Rectal cancer Procedure: Flexible sigmoidoscopy with biopsy Staff: Hilary Lewis MD, who was present and scrubbed throughout the procedure Assist: Dr. Miguel A Hammond, resident Service: Colorectal Surgery Anesthesia: MAC Anesthesiologist: Allen Dudley MD CONCESSIONS MANAGER: JER BarrientosCONCESSIONS MANAGER; BEE Combs EBL: Minimal Complication: None Counts: [...] and taken to the recovery room. [facility]09-06-2024 Miscellaneous Notes* Op Note - Hilary Lewis MD - 06/25/2024 12:26 PM EDT Pre-op Diagnosis: Rectal cancer Post-op Diagnosis: Rectal cancer Procedure: Flexible sigmoidoscopy with biopsy Staff: Hilary Lewis MD, who was present and scrubbed throughout the procedure Assist: Dr. Miguel A Hammond, resident Service: Colorectal Surgery Anesthesia: MAC Anesthesiologist: Allen Dudley MD CONCESSIONS MANAGER: JER BarrientosCONCESSIONS MANAGER; BEE Combs EBL: Minimal Complication: None Counts: [...] - 06/25/2024 12:22 PM EDT Andrew Posada ([id number]) PRE OPERATIVE DIAGNOSIS Malignant neoplasm of rectum [C20] POST OPERATIVE DIAGNOSIS Malignant neoplasm of rectum [C20] PROCEDURE PERFORMED Procedure(s) (LRB): SIGMOIDOSCOPY DIAGNOSTIC (N/A) with biopsy PRIMARY CLOSURE N/A INTRAOPERATIVE FINDINGS No significant abnormalities SURGEON Surgeons and Role: * Hilary Lewis MD - Primary ANESTHESIOLOGIST Anesthesiologist: Allen Dudley MD CONCESSIONS MANAGER: BEE Barrientos; BEE Combs SURGICAL STAFF Director Franchise Sales: Barbie Ramirez RN Relief Scrub: Joy Bautista [...] 2024 12:22 PM documented in this encounterOSU [facility]09-[facility]24 Hospital Discharge instructions* Discharge Instructions* Hilary [...] urgent care center. If you are near [place], go to one of the [facility] CareCenters: [email or web address] If you are far from [place], go to an urgent care in your [...] short of breath. documented in this encounterOSU [facility]09-06-2024 Surgery Postoperative evaluation and management note* Brief Op Note - Hilary Lewis MD - 06/25/2024 12:22 PM EDT Andrew Posada ([id number]) PRE OPERATIVE DIAGNOSIS Malignant neoplasm of rectum [C20] POST OPERATIVE DIAGNOSIS Malignant neoplasm of rectum [C20] PROCEDURE PERFORMED Procedure(s) (LRB): SIGMOIDOSCOPY DIAGNOSTIC (N/A) with biopsy PRIMARY CLOSURE N/A INTRAOPERATIVE FINDINGS No significant abnormalities SURGEON Surgeons and Role: * Hilary Lewis MD - Primary ANESTHESIOLOGIST Anesthesiologist: Allen Dudley MD CONCESSIONS MANAGER: Louie Cardenas APRN-CONCESSIONS MANAGER; Sunny Chino APRN-CONCESSIONS MANAGER SURGICAL STAFF Director Franchise Sales: Barbie Ramirez RN Relief Scrub: Joy Bautista [...] Lewis MD June 25, 2024 12:22 PM [facility]09-06-[facility] Nurse Surgical operation note* Barbie Ramirez RN - 06/25/2024 11:57 AM EDT Scope in 1105 Scope out 1201 [facility]09-06-2024 Nurse Note* Barbie Ramirez RN - 06/25/2024 11:57 AM EDT Scope in 1105 Scope out 1201 * Barbie Ramirez RN - 06/25/2024 11:39 AM EDT Scope 0403 documented in this encounterOSU [facility]09-06-2024 Nurse Surgical operation note* Barbie Ramirez RN - 06/25/2024 11:39 AM EDT Scope 0403 [facility]09-06-2024 History and physical note* Hilary Lewis MD - 06/25/2024 11:24 AM EDT HPI: 58 y.o. yo male here for flexible sigmoidoscopy New symptoms: none Past Medical History: Diagnosis Date Colon cancer Past Surgical History: Procedure Laterality Date DRAINAGE BY CATHETER PERITONEAL/RETROPERITONEAL PERCUTANEOUS W/ IMAGING GUIDANCE Right 05/07/2024 Laterality: Right; Surgeon: Catherine Delatorre II, MD; Location: [facility] INTERVENTIONAL RADIOLOGY (CT) DRAINAGE BY CATHETER PERITONEAL/RETROPERITONEAL PERCUTANEOUS W/ IMAGING GUIDANCE N/A 04/30/2024 Laterality: N/A; Surgeon: Catherine Delatorre II, MD; Location: [facility] INTERVENTIONAL RADIOLOGY (CT) COLECTOMY History reviewed. [...] kg/m . - Reviewed and agree with asset recovery specialist's recommendations. Any conditions listed below are present on admission unless otherwise specified. . [facility] Work Phone: 1(344) 192-539709-06-2024 History and physical note* Hilary Lewis MD - 06/25/2024 11:24 AM EDT HPI: 58 y.o. yo male here for flexible sigmoidoscopy New symptoms: none Past Medical History: Diagnosis Date Colon cancer Past Surgical History: Procedure Laterality Date DRAINAGE BY CATHETER PERITONEAL/RETROPERITONEAL PERCUTANEOUS W/ IMAGING GUIDANCE Right 05/07/2024 Laterality: Right; Surgeon: Catherine Delatorre II, MD; Location: [facility] INTERVENTIONAL RADIOLOGY (CT) DRAINAGE BY CATHETER PERITONEAL/RETROPERITONEAL PERCUTANEOUS W/ IMAGING GUIDANCE N/A 04/30/2024 Laterality: N/A; Surgeon: Catherine Delatorre II, MD; Location: [facility] INTERVENTIONAL RADIOLOGY (CT) COLECTOMY History reviewed. [...] kg/m . - Reviewed and agree with asset recovery specialist's recommendations. Any conditions listed below are present on admission unless otherwise specified. . documented in this encounterU [facility] History of Present illness Narrative* Hilary [...] leak and resection w colostomy, staged at [id number]. 4/13 lymph nodes, positive distal margin. Now w resolved abdominal and pelvic abscesses and purulent drainage from midline wound. P/ Tumor board discussion. With him that in most situations we would recommend adjuvant chemotherapy and radiation OK to stop amiodarone. That was started in [place]. DC summary mentions BP as the reason. He reportshe dind't really have high BP. DId have tachycardia in [place]. He'll check BP at local pharmacy Referral to med onc and rad onc in [place]. Follow-up: in 3 month(s) (Please note that portions of this note were completed with a voice recognition program. Efforts were made to edit the dictation but occasionally words are mis-transcribed.) * Joe Hylton RN - 05/20/2024 1:45 PM EDT Joe Hylton acted as a medical data entry specialist for the procedure/exam/test. Drains pulled at the beside by Hilary Lewis MD. documented in this encounterMercy Health [facility]07-24-2024 History of Present illness Narrative* Sandra Mckay RN - 05/12/2024 8:00 AM EDT Pt was given an explanation regarding the voiding trial and wishes to proceed. Pt undressed and the cisneros bag was removed from the catheter. 300 mL of 0.9% NaCl was slowly instilled into the bladder. The balloon of a 16 [place] Island[place] catheter was then deflated. The patient voiced [...] request) BETHANIE Whiting documented in this encounterOSU [facility]07-21-2024 Plan of care note* Plan of [...] Optimal Oral Intake Outcome: Adequate for Discharge [facility]07-21-2024 Miscellaneous Notes* Plan of Care - Angelique [...] is not hooked up please clarify. Thanks [phone] 2048 MD Sanders returned page. MIVF order discontinued. * Nursing Notes - Arron Lamar RN - 05/07/2024 4:24 PM EDT Interventional Radiology procedure completed of image guided drain placement with IR Attending Juan Ramon with sedation and local numbing agent. Intra- procedure specimens collected and sent to lab foranalysis. Pt to travel back to [place] [address] for post procedure recovery. * Nursing Notes - Susie Fuentes RN - 05/07/2024 3:46 PM EDT 05/07/24 1545 Referral Information Arrived From emergency department Final Discharge Planning Discharge Disposition Home CM/SW AVS Portion Completed Yes Plan Plan Home with possible home health care if available (drew visits) Patient/Family In Agreement With Plan yes Transport Request Mode of Transfer Private Vehicle [facility] Inpatient PCRM Discharge Note Patient discussed in medical rounds for discharge to home possibly this weekend. Having additional drain placed today. PCRM met with the patient/family/spouse to discuss final discharge plan. Services for Discharge Spouse did request we look for a [facility] agency that could do 1 or 2 [facility]. Referrals started, no accepting [facility] at this time. Timer extended to tomorrow. [...] 8:00 AM Anjali Denton; UROLOGY NURSE D, [facility] [place] Arrive at: Arrive to 2nd Floor, Registration [address] EEI 05/20/2024 1:00 PM [facility], [facility] Imaging at [facility] Outpatient Care Arrive at: Arrive to First Floor Registration JOCW 05/20/2024 1:45 PM Hilary Lewis General and Gastrointestinal Surgery Outpatient Care [place] Arrive at: Arrive to 1st Floor Registration [...] discharge planning needs. AUDRA Moreno Colorectal Surgery [phone] For evening and weekend discharge assistance: Pager for composition roll maker and cutter PCR at [phone] Pager for composition roll maker and cutter [phone] * Nursing Notes - Karen Laboy RN - 05/07/2024 11:26 AM EDT WOC/ET FOLLOW UP NOTE: In to see Mr. Posada for colostomy education. His said they don't need help with anything regarding colostomy care today. She also said they have plenty of supplies right now. Pt was up and ambulating back from the bathroom with the HEARING INSTRUMENT SPECIALIST during visit. 05/07/24 1100 Plan Problem colostomy, est Current Plan ostomy prescription done;lesson, first Visit Type Consult with RN WOCT Visit Frequency PRN Last Date Seen 05/07/24 Karen REED, RN-[facility] [phone] * Nursing Notes - Susie Fuentes RN - 05/06/2024 12:47 PM EDT Patient was discussed in morning rounds. Last 24 Hour Updates: Andrew Posada is a 58 y.o. male PMH of colonic adenocarcinoma s/p sigmoidectomy with rectosigmoid anastomosis c/b dehiscence requiring end colostomy (presumed) who presents with abdominal abscess. His original surgery was completed in [place]. Outside hospital completed a scan- CTAP revealing [...] for ongoing needs and planning. AUDRA Moreno [phone] For evening and weekend discharge assistance: Pager for composition roll maker and cutter PCRM at [phone] Pager for composition roll maker and cutter [phone] * Plan of Care - Rosy [...] or concerns please call us directly at [phone] for questions M-F [phone]. * Nursing Notes - Dorcas Krishnamurthy RN - 05/04/2024 4:17 PM EDT Images from the original note were not included. WOC/ET Nursing Consult/Evaluation Note Evaluated Andrew Posada for ostomy located in LLQ. Description of stoma: LLQ presumed end colostomy from 03-30-24 from surgery in [place] for colon cancer. Stoma moist red, budded, [...] I gave him coloplast flat 1-piece pouches 37302 and our 2-piece flat 2 1/4'' [employer] system. They seem to prefer at this time [employer] 2-piece brand but we do not stock these. I will write a script for supply numbers to help guide them as what they can out of pocket buy from various outlets such as [employer] and the ostomy companies like [employer], [employer], and [employer]. PCRM working on setting [...] notified of assessment and plan. Please page #[phone] or reconsult with any further needs. Dorcas [...] for ongoing needs and planning. AUDRA Moreno [phone] For evening and weekend discharge assistance: Pager for composition roll maker and cutter PCRYe at [phone] Pager for composition roll maker and cutter [phone] Addendum: CT scan scheduled. * Plan [...] immediately after given? ' Per , remove cisneros 1 hour after flomax given. * Nursing Notes - Luz Marina Ramos RN - 04/30/2024 11:06 PM EDT This nurse paged the on-call provider:This is Luz Marina J. Mr. Posada in [phone] can we discontinue his scheduled Tylenol and place a PRN order? He only wants one Tylenol when he needs it. My # [phone] 2315:Tylenol order changed from scheduled to PRN. [...] for post procedure recovery. documented in this encounterMercy [facility]07-21-2024 History of Present illness Narrative* Amara Armas RN - 05/09/2024 9:38 AM EDTSummary: PCRM Discharge Planning PCRM following up on patient's discharge plan. Per Dr. Felipe, no IV abx required, will go out on oral regimen (Augmentin). Unable to secure [facility] at this time, no accepting agencies. Per team patient is doing well with drain care independently. PCRM met with patient and spouse to discuss discharge meds, as local pharmacy is closed on Sundays.Pt's spouse reports they have nearly a month's supply of amiodarone 200mg, aspirin, and vitamin C at home which they returned home from [place] with. [facility] [place] for them to fruit picker on their way home from the hospital today. All other scirptson file at [facility] to fill when needed. Bedside RN updated re: medication plan along with request to send pt home with drain supplies. Pt with ostomy supplies at home already. See full PCRM Discharge Note from Susie Belcher dated 05/07. BRIANNA Green back hoe operator PCRM [phone] 05/09/2024 9:47 AM For evening (after 4:30pm) and weekend discharge assistance please page the composition roll maker and cutter PCRM at [phone]. * Janeth Shea RN - 05/08/2024 4:52 PM EDT PCRM following up on hand off for [facility] [address]. Extended referral for [facility] as no accepting agencies. [facility] following. No final d/c date noted as of this stime. Abx plan pending. BRIANNA Randle RN OCN Float PCRM Pager: [phone] Float Pager: [phone] If any changes to this individualized plan of care during evening and weekend hours and assistance is needed, please page the composition roll maker and cutter PCRM at [phone]. * Lindsay Forbes RN - 05/07/2024 2:58 PM EDT [facility] Coordination Note Patient received in handoff from keycase assembler for potential homecare services. Will continue to follow with keycase assembler for plan of care. [facility] Home Health Following Physician Confirmation Following Physician: Dr. Hilary Lewis ([facility]- , Fax Line: [phone]) Physician Service: Surgery Agreeable to Follow: Yes BRIANNA Saleem, RN Post-Acute Mule Developer * Susie Fuentes RN - 05/07/2024 2:42 PM EDT Discharge Planning for Home Health Seeing if there are [facility] options for discharge Background Information/ Hospital Overview: [...] unknown) and had colectomy on 03/30/24 in [place], with pathology revealing invasive moderately differentiated adenocarcinoma [...] drain abscess placed on 04/30/24. Services needed: Long-Term Long-Term Needs IR drain x 2- with flushing Midline wound care Cisneros care Ostomy Care Line / tube / drain type and care needed Colostomy Midline wound- packing BID IR drain x2 with flushing daily Cisneros Teachable Caregiver / Family Support: Spouse is a teachable caregiver and will be willing to work with [facility] to obtain education if there are complex teaching services needed for the patient. Physician following for home care orders / phone: Dr. Hilary Lewis ([facility]- , Fax Line: [phone]) * Gabriele Felipe MD - 05/07/2024 7:08 [...] unknown) and had colectomy on 03/30/24 in [place], with pathology revealing invasive moderately differentiated adenocarcinoma [...] kg/m . - Reviewed and agree with asset recovery specialist's recommendations. Malnutrition - Severe Protein-Calorie Malnutrition (POA) (05/03/2024 2:49 PM) secondary to Chronic Illness (05/03/2024 2:49 PM) - Reviewed and agree with asset recovery specialist's recommendations. Any conditions listed below are present on admission unless otherwise specified. . Dispo: pending further clinical workup and improvement Please page the [facility] pager with questions or concerns. (Found in QGenda / WebExchange) Gabriele Felpie MD, [facility] General Surgery Pager: [phone] * Gabriele Felipe MD - 05/06/2024 7:09 [...] unknown) and had colectomy on 03/30/24 in [place], with pathology revealing invasive moderately differentiated adenocarcinoma [...] kg/m . - Reviewed and agree with asset recovery specialist's recommendations. Malnutrition - Severe Protein-Calorie Malnutrition (POA) (05/03/2024 2:49 PM) secondary to Chronic Illness (05/03/2024 2:49 PM) - Reviewed and agree with asset recovery specialist's recommendations. Any conditions listed below are present on admission unless otherwise specified. . Dispo: pending further clinical workup and improvement Please page the [facility] pager with questions or concerns. (Found in QGenda / WebExchange) Gabriele Felipe MD, [facility] General Surgery Pager: [phone] * AUGUSTO Cook - 05/05/2024 6:51 PM EDT This SW is assisting the Colorectal surgery service on this date. Psychosocial Assessment Per chart review, patient is a 58 y.o., male, who was admitted post colectomy for colon cancer in [place], here with intraabdominal infection, wound dehiscence and drainage. SW met with patient and patient's to introduce self, explain social security benefits interviewer role during inpatient stay, and answer questions. Patient was alert and oriented x4 and agreeable to SW visit. Contact Information: Blender/Braze Applicator Name: Susie Belcher RN PCRM Social Work Contact Name: See daily coverage for following SW Advance Directive Discussion: Patient does not have any advance directives on file. SW inquired whether or not patient is interested in completing health care power of commercial attorney and/or living will paperwork during this visit. SW reviewed the documents, discussed the benefits of completing them, and provided education re: Legal NOK (LNOK). Patient declined interest in completing the documents at this time. Legal NOK: Patient's spouse, Opal Posada/ ph: [phone], is patient's legal NOK. Patient has eight adult children. Emotional/Psychological: Mood: congruent to situation, congruent to affect Current Interpersonal Conduct/Behavior: cooperative, acceptance, appropriate to situation, other (see comments) (intermittently tearful) Mental Health Conditions/Symptoms: denies, other (see comments) (Pt shared that he recently struggled w/ some anxiety when he was in [place].He reported that he is not feeling anxious [...] Of Support: adult child(brian), other (see comments), mandaeism/methodist organization, community support, friend(s), spouse, sibling(s) (16 [...] Yes Employment Details: Patient works at a [employer]. Employment/Financial Concerns: other Employment/Insurance Comments: Patient does not have insurance. He has an [employer] Funding Source. PCRM placed a referral to [...] resource needs at this time. Of note, [facility] already placed a referral for an [facility] Financial Counselor for requested follow up. Anticipated Discharge Plan: Anticipated Discharge Plan: Home Medical Team Considerations: Patient does not have traditional insurance and [facility]. SW Interventions/Recommendations: SW instructed patient to ask his bedside RN to reach out to service SW if he needs SW. SW explainedthat there may be a new SW following day to day. Patient reported being in agreement. SW will continue to remain available to provide assistance and support as needed during inpatient stay. ABDIEL Barbre Contract Loader For Evening (4:30pm-8:00am) and Weekend SW needs please call [phone]. * JEFE Crouch - 05/05/2024 3:06 PM EDT SW attempted to meet with patient to complete psychosocial assessment; however, patient was found to be out of the room at this time. SW will revisit patient as able and remain available as needed. ABDIEL Crouch LSW ED/ICC/OBS Contract Loader For Evening (4:30pm-8am), Weekend, and Holiday SW needs please call [phone] or page [phone]. * Gabriele Felipe MD - 05/05/2024 7:01 [...] unknown) and had colectomy on 03/30/24 in [place], with pathology revealing invasive moderately differentiated adenocarcinoma [...] kg/m . - Reviewed and agree with asset recovery specialist's recommendations. Malnutrition - Severe Protein-Calorie Malnutrition (POA) (05/03/2024 2:49 PM) secondary to Chronic Illness (05/03/2024 2:49 PM) - Reviewed and agree with asset recovery specialist's recommendations. Any conditions listed below are present on admission unless otherwise specified. . Dispo: pending further clinical workup and improvement Please page the [facility] pager with questions or concerns. (Found in QGenda / WebExchange) Gabriele Felipe MD, [facility] General Surgery Pager: [phone] * Gabriele Felipe MD - 05/04/2024 7:39 [...] unknown) and had colectomy on 03/30/24 in [place], with pathology revealing invasive moderately differentiated adenocarcinoma [...] kg/m . - Reviewed and agree with asset recovery specialist's recommendations. Malnutrition - Severe Protein-Calorie Malnutrition (POA) (05/03/2024 2:49 PM) secondary to Chronic Illness (05/03/2024 2:49 PM) - Reviewed and agree with asset recovery specialist's recommendations. Any conditions listed below are present on admission unless otherwise specified. . Dispo: pending further clinical improvement Please page the [facility] pager with questions or concerns. (Found in QGenda / WebExchange) Gabriele Felipe MD, [facility] General Surgery Pager: [phone] * Giovanna Alonzo RD - 05/03/2024 9:48 [...] poor PO intake when he was in [place] from March to April d/t being NPO/liquid [...] Needs: Using current wt (50.6 kg) EEN: 0458-5008 (30-35 kcal/kg) EPN: 75-100 (1.5-2.0 g/kg) Malnutrition Statement: Does the patient meet criteria for malnutrition: Yes Etiology of Malnutrition: Chronic Illness Malnutrition Severity: Severe Protein-Calorie Malnutrition (POA) as evidenced by clinical characteristics: Interpretation of weight loss: > 5% in 1 month Body fat: Severe Muscle mass: Severe *Based on The Academy and ASPEN Indicators to Diagnose Malnutrition (AAIM) criteria (2012) Giovanna Alonzo RD Pager:[phone] * Flory Yamila Gregory, DRIVER MESSENGER-HOOK AND EYE SEWING MACHINE OPERATOR - 05/03/2024 9:35 AM EDT Interventional Radiology [...] - these can be obtained from Distribution [id number] Please send patient home with rx for [...] unknown) and had colectomy on 03/30/24 in [place], with pathology revealing invasive moderately differentiated adenocarcinoma [...] kg/m . - Reviewed and agree with asset recovery specialist's recommendations. Any conditions listed below are present on admission unless otherwise specified. . Dispo: pending clinical improvement Please page the [facility] pager with questions or concerns. (Found in QGenda / WebExchange) Gabriele Felipe MD, [facility] General Surgery Pager: [phone] * Shruthi Reese MD - 05/02/2024 9:13 [...] unknown) and had colectomy on 03/30/24 in [place], with pathology revealing invasive moderately differentiated adenocarcinoma [...] kg/m . - Reviewed and agree with asset recovery specialist's recommendations. Any conditions listed below are present [...] Date 05/01/24 0700 - 05/02/24 0659 Shift [id number] 4409-5640 4205-0614 24 Hour Total INTAKE Irrigation 20 20 [...] unknown) and had colectomy on 03/30/24 in [place], with pathology revealing invasive moderately differentiated adenocarcinoma [...] kg/m . - Reviewed and agree with asset recovery specialist's recommendations. Any conditions listed below are present on admission unless otherwise specified. . Dispo: pending clinical intervention and response Please page the [facility] pager with questions or concerns. (Found in QGenda / WebExchange) Almita Saini MD General Surgery Resident, PGY1 Pager: [phone] * Gabriele Felipe MD - 04/30/2024 2:01 [...] unknown) and had colectomy on 03/30/24 in [place], with pathology revealing invasive moderately differentiated adenocarcinoma [...] post call, or otherwiseunavailable. Gabriele Felipe MD, [facility] General Surgery Pager: [phone] documented [facility] Note* Nursing Notes - Giovanna Cifuentes RN - 05/08/2024 8:41 PM EDT 2040 MD Sanders paged: I got in report that MIVF were discontinued but the order is still in. Patient is not hooked up please clarify. Thanks [phone] 2048 MD Sanders returned page. MIVF order discontinued. [facility]07-19-2024 Procedure note* Catherine Delatorre II, MD - [...] abscess. Samples obtained and sent to lab. [facility] Work Phone: 1(315) 412-970707-19-2024 Procedure note* Catherine Delatorre II, MD - [...] at the rectal stump PROCEDURE: Image Guided 10-[place] Islander Drain placement. Please refer to the imaging [...] green pus IMPRESSION/PLAN: Successful placement of a 10-[place] Islander abdominal drain in the pelvis. Flush with [...] Nghia Becerra MD documented in this encounterOS[facility] Nurse Note* Nursing Notes - Arron Lamar RN - 05/07/2024 4:24 PM EDT Interventional Radiology procedure completed of image guided drain placement with IR Attending Juan Ramon with sedation and local numbing agent. Intra- procedure specimens collected and sent to lab foranalysis. Pt to travel back to [place] [phone] for post procedure recovery. [facility] Nurse Note* Nursing Notes - Susie [...] Spouse did request we look for a [facility] agency that could do 1 or 2 home drew visits. Referrals started, no accepting [facility] at this time. Timer extended to tomorrow. [...] 8:00 AM Anjali Denton; UROLOGY NURSE Steven, [facility] [place] Arrive at: Arrive to 2nd Floor, Registration [address] EEI 05/20/2024 1:00 PM [facility] Imaging at [facility] Outpatient Care Arrive at: Arrive to First Floor Registration JO 05/20/2024 1:45 PM Hilary Lewis General and Gastrointestinal Surgery Outpatient Care [place] Arrive at: Arrive to 1st Floor Registration [...] discharge planning needs. AUDRA Moreno Colorectal Surgery [phone] For evening and weekend discharge assistance: Pager for composition roll maker and cutter PCRM at [phone] Pager for composition roll maker and cutter [phone] [facility]07-19-2024 Nurse Surgical operation note* Christy French RN - 05/07/2024 3:01 PM EDT Patient denies history of radiation or chemo. Patient denies history of seizures or strokes. Patient reports abdominal mesh from previous hernia surgery. [facility]07-19-2024 Nurse Note* Christy French RN - 05/07/2024 [...] of seizure or stroke. documented in this encounterMer[facility] Nurse Note* Nursing Notes - Karen Laboy RN - 05/07/2024 11:26 AM EDT WOC/ET FOLLOW UP NOTE: In to see Mr. Posada for colostomy education. His said they don't need help with anything regarding colostomy care today. She also said they have plenty of supplies right now. Pt was up and ambulating back from the bathroom with the HEARING INSTRUMENT SPECIALIST during visit. 05/07/24 1100 Plan Problem colostomy, est Current Plan ostomy prescription done;lesson, first Visit Type Consult with RN WOCT Visit Frequency PRN Last Date Seen 05/07/24 Karen REED, RN-, [facility] [phone] [facility]07-18-2024 Nurse Note* Nursing Notes - Susie Fuentes RN - 05/06/2024 12:47 PM EDT Patient was discussed in morning rounds. Last 24 Hour Updates: Andrew Posada is a 58 y.o. male PMH of colonic adenocarcinoma s/p sigmoidectomy with rectosigmoid anastomosis c/b dehiscence requiring end colostomy (presumed) who presents with abdominal abscess. His original surgery was completed in [place]. Outside hospital completed a scan- CTAP revealing [...] for ongoing needs and planning. AUDRA Moreno [phone] For evening and weekend discharge assistance: Pager for composition roll maker and cutter PCRYe at [phone] Pager for composition roll maker and cutter [phone] [facility]07-18-2024 Plan of care note* Plan of Care [...] or concerns please call us directly at [phone] for questions M-F [phone]. [facility] Consult note* Jon Tapia MD - 05/05/2024 4:56 PM EDTAssociated Order(s): IP CONSULT TO INTERVENTIONAL RADIOLOGY Images from the original note were not included. Vascular Interventional Radiology Consult Note Interventional Radiology Clinic [phone] - Interventional Radiology Scheduling [phone] [facility] personal protection specialist [id number] - [facility] personal protection specialist [id number] PATIENT: Mr. Andrew Posada Admission Date: 04/30/2024 [...] consult to procedure. Questions For questions regarding [facility] Inpatients please call [phone]. For questions regarding [facility] Inpatients please call [phone]. For questions regarding Biopsies, please call [phone]. [facility] Work Phone: 1(520) 401-132007-17-2024 Consult note* Jon Tapia MD - 05/05/2024 4:56 PM EDTAssociated Order(s): IP CONSULT TO INTERVENTIONAL RADIOLOGY Images from the original note were not included. Vascular Interventional Radiology Consult Note Interventional Radiology Clinic [phone] - Interventional Radiology Scheduling [phone] [facility] personal protection specialist [phone] - [facility] personal protection specialist [id number] PATIENT: Mr. Andrew Posada Admission Date: 04/30/2024 [...] consult to procedure. Questions For questions regarding [facility] Inpatients please call [phone]. For questions regarding [facility] Inpatients please call [phone]. For questions regarding Biopsies, please call [phone]. documented in this encounterOSU [facility] Nurse Note* Nursing Notes - Dorcas Krishnamurthy RN - 05/04/2024 4:17 PM EDT Images from the original note were not included. WOC/ET Nursing Consult/Evaluation Note Evaluated Andrew Posada for ostomy located in LLQ. Description of stoma: LLQ presumed end colostomy from 03-30-24 from surgery in [place] for colon cancer. Stoma moist red, budded, 1 1/2'', functioning with soft brown stool. Opal at bedside, she was taught how to carefor colostomy at outside hospital and was sent home with 2-piece [place] pouches. He is currentlywearing a 1-piece pouch from here but they prefer 2-piece system. No insurance. Pouch changed todayfor continued education, provided with printed education material and kit with pouches. I gave him coloplast flat 1-piece pouches [id number] and our 2-piece flat 2 10/23'' ConvaTec system. They seem to prefer at this time [place] 2-piece brand but we do not stock these. I will write a script for supply numbers to help guide them as what they can out of pocket buy from various outlets such as [employer] and the ostomy companies like [employer], Coloplast, and Convatec. PCRM working on setting [...] notified of assessment and plan. Please page #[phone] or reconsult with any further needs. Dorcas Krishnamurthy RN [facility]* Nursing Notes - Susie Fuentes RN - 05/04/2024 2:40 PM EDT Patient was discussed in morning rounds. Last 24 Hour Updates: Pt had cisneros in place- will discharge with this and referral made for OP Urology, inTvoop message sent to get appointment. Pt had [...] for ongoing needs and planning. AUDRA Moreno [phone] For evening and weekend discharge assistance: Pager for composition roll maker and cutter PCRM at [phone] Pager for composition roll maker and cutter [phone] Addendum: CT scan scheduled. [facility] Plan of care note* Plan of Care [...] function, skin integrity 7. RD to follow [facility]07-14-2024 Nurse Note* Nursing Notes - Nuria Starks RN - 05/02/2024 6:16 PM EDT IHIS chat with MD Blake: pt able to void another 50ml. Bladder scan was 330ml. [facility]07-14-2024 Nurse Note* Nursing Notes - Nuria Starks [...] remove cisneros 1 hour after flomax given. [facility]07-12-2024 Nurse Note* Nursing Notes - Luz Marina Ramos RN - 04/30/2024 11:06 PM EDT This nurse paged the on-call provider:This is Luz Marina Alves. Mr. Posada in [phone] can we discontinue his scheduled Tylenol and place a PRN order? He only wants one Tylenol when he needs it. My # [phone] [id number]:Tylenol order changed from scheduled to PRN. This nurse will continue to monitor and will report as necessary. [facility]07-12-2024 Procedure note* Nghia Becerra MD - 04/30/2024 4:57 PM EDTAssociated Order(s): CASE REQUEST DEPARTMENT USE ONLY INTERVENTIONAL RADIOLOGY PROCEDURE NOTE PROCEDURE PERFORMED BY: Attending Catherine Delatorre MD; Nghia Becerra MD (Resident) PROCEDURE DATE: 04/30/24 4:57 PM PRE PROCEDURE DIAGNOSIS: Pelvic abscess at the rectal stump POST PROCEDURE DIAGNOSIS: Pelvic abscess at the rectal stump PROCEDURE: Image Guided 10-[place] Islander Drain placement. Please refer to the imaging [...] green pus IMPRESSION/PLAN: Successful placement of a 10-[place] Islander abdominal drain in the pelvis. Flush with [...] in this patient's care. Nghia Becerra MD [facility]07-12-2024 Nurse Note* Nursing Notes - Miguel A Heaton RN - 04/30/2024 4:43 PM EDT Interventional Radiology procedure completed of image guided drain placement with IR Attending Dr Delatorre with sedation and local numbing agent. Intra- procedure specimens collected and sent to lab for analysis. Pt to travel back to inpatient room for post procedure recovery. [facility]07-12-2024 Nurse Surgical operation note* Aracelis Stinson RN - 04/30/2024 3:29 PM EDT Patient denies hx of chemo and radiation. Patient denies metal or foreign objects in body EXCEPT abdominal mesh. Patient denies hx of seizure or stroke. [facility]07-12-2024 Hospital Discharge instructions* Discharge Instructions* Susie Fuentes RN - 04/30/2024 3:10 PM EDT Images from the original note were not included. COLORECTAL ADDITIONAL CONTACTS For Concerns During Weekend or Evening Hours: -If you have questions or concerns call and ask the bulldozer operator to page the surgical nurse composition roll maker and cutter. Reminder: Funny Or Die messaging goes unmonitored during evenings and weekends. Any concerns or questions during this time, please call using instructions above. Clinic Office Main Number: [phone] Colorectal non-Cancer: [phone] Fax Line: [phone] Blender/Braze Applicator: Susie Fuentes ([facility]) SW: Xi Rollins ([facility]) ENTEROSTOMAL THERAPY RN + OSTOMY Clinic+ IMPORTANT: Automated Post Discharge Call Patient Information As part of your care, we will call you at the primary number we have on file, the day after you aredischarged at 9:30 a.m. to check on you. Please expect a two-minute automated telephone call from the hospital. This call will come from [phone]. If you are unable to answer or do not receive the automated call, please call [phone] to complete this important evaluation. By answering the phone evaluation, a [facility] nurse will be notified if you have [...] with enriched, refined white flour Soda crackers [place] Toasts Foods to avoid: Bread containing bran [...] or seeds Applesauce Pears, peaches Peeled apricots [place] cherries Ripe banana Ripe avocado Fruit [...] fat free milks Coffee Decaffeinated coffee Tea [place] Carbonated beverages Fruit juice (except prune juice) Foods to avoid: All other beverages Miscellaneous Foods allowed: Salt used in moderation Mild spices Gravy Cream sauces Foods to avoid: Rich, highly spiced, or seasoned foods and sauces Fried foods Pickles Olives Relishes 1999 - April 13, 2020, [facility]. This handout is for informational purposes only. Talk with your doctor or healthcare team if you have any questions about your care. For more health information, call the [employer] for [employer] Information at [phone] or email: [email or web address]. * Discharge Instr - Notify* Susie Fuentes RN - 04/30/2024 3:09 PM EDT For Concerns During Weekend or Evening Hours: -If you have questions or concerns call and ask the bulldozer operator to have the general surgery chief resident paged. Reminder: Funny Or Die messaging goes unmonitored during evenings and weekends. Any concerns or questions during this time, please call using instructions above. Clinic Office Main Number: [phone] NOTIFY PHYSICIAN: SYMPTOMS WOUND INFECTION - Increase [...] your physician's office and go to the [facility] [facility] Emergency Room. If you are outside of [place], please go to your local emergency Home Care for Your Varina Fluid Drain One or more tubes have [...] After hours and weekends, call the hospital bulldozer operator at and ask for the Interventional resident care associate composition roll maker and cutter. * Discharge Instr - DME* Susie Fuentes RN - 04/30/2024 3:10 PM EDT Ostomy Supplies Resources If you have trouble getting your ostomy supplies or your health insurance does not cover the cost of your supplies, the following resources may be able to help you: [employer] https://www.Enthrill Distribution Search ostomy supplies Coloplast https://www.coloplastcare.com/en-[place]/ostomy May provide a 3-month supply of limited ostomy supplies, one time each year. You will need to submit an application. [facility] [address] [place] [address] [facility] Ostomy [facility] [employer] [facility] - Ostomy Support Group [address] [phone] An ostomy support group meets on the Friday of each month at 7:00 pm. Donated ostomy supplies may be available. Email Vazquez James at [email or web address] for more information Between https://AbGenomicslus.Capton.com/articles/rwsyzdg-mcbobpoozf-bvcheho/ May provide a 3-month supply of limited ostomy supplies, one time each year. Odilia , option 6 May provide a 3-month supply of ostomy supplies, 2 times a year. You will need to submit an application. documented [facility] encounter[facility] Emergency department Note* Mara Tang RN - 04/30/2024 1:14 PM EDT Report called to 12 Catherine KING. [facility]07-12-[facility] Emergency department Note* Mara Tang RN [...] to ER just arrived post op from [place] to the on Friday) Readmission Information Was patient readmitted within 30 Days? No Information Source Information Source patient ;spouse;review of medical record Information Source Name Opal Posada spouse Information Source Number # listed is for curt Edwards [phone] Outpatient Providers Outpatient Providers Updated In [facility] No Contact Information Blender/Braze Applicator/SW Added to Care Team No This Ply Splicer is Primary Blender/Braze Applicator/SW Yes Blender/Braze Applicator Name Carrie ZHU Blender/Braze Applicator's Phone Number [phone] Social Work Contact Name See daily coverage for ER SW Contract Loader's Phone Number See daily coverage for ER [...] Employment/Financial Employed? Yes Employment Details Works at [employer] Employment/Financial Concerns no Source Of Income salary/wages Financial Concerns other (see comments) (Patient is linked with the [facility] Funding source) Insurance Medical Insurance Verified Yes Prescription Coverage Yes Pharmacy updated in [facility] Yes Initial Discharge Planning Home Care Services (CALL CENTER RECEPTIONIST) No Home Therapies (CALL CENTER RECEPTIONIST) None DME (CALL CENTER RECEPTIONIST) None Medical Supplies (CALL CENTER RECEPTIONIST) Ostomy Supplies;Other (comment) (They were given ostomy supplies when they left [place]) Patient Goal for Discharge Return home with assistance from family and friends Anticipated discharge disposition Home Anticipated Services at Discharge Outpatient wound/drain/ostomy care;Outpatient follow up Anticipated Changes Related to Illness none Current Discharge Risk chronically ill (Cancer diagnosed March 09 then had surgery in [place] 03-30) Transportation Available family or friend will provide Home Care Services (CALL CENTER RECEPTIONIST) Additional Home Care Services (CALL CENTER RECEPTIONIST) no Assessment/Concerns to be Addressed Concerns To [...] with colon cancer 03-09-24 and went to [place] for a colectomy with colostomy placement which was performed on 03/30/2024. He returned to the [facility] a few days ago, noted progressive purulentdrainage [...] have colostomy supplies that were provided in [place] Initial PCRM Discharge Planning Patient resides in [place] traveled to [place] for colectomy, had complications requiring colostomy. He traveled to [place] to seek expedited care and a friend had the same surgery and did well.Post colectomy for colon cancer in [place], presents to [facility] ER with intraabdominal infection, wound dehiscence and drainage. They just arrived in the [facility] from surgery on 04-24-24. He is uninsured but,connected to the [employer] system.Notified Rose in financial services for additionalresources. Mr Posada would like to receive care at [facility] with local Oncology in the [place] area. Final plan will be determined closer to discharge, pending therapy and medical team recommendations. Patient/family verbalized understanding and agreement with the plan of care. Patient/family have no questions at this time. PCR will continue to follow patient with multidisciplinary team for ongoing assessment of needs and for discharge planning. Medical team updated. BRIANNA Lucero, RN, [facility] Patient Care Maintenance Mgr [facility] Emergency/Observation Department /[phone] Available via secure chat * Marcia Vasquez [...] diagnosed with colon cancer and went to [place] for a colectomy with colostomy placement which [...] outside hospital were pushed to [facility] from [facility]. Will consult general surgery for evaluation and [...] 2304 SO: hx colorectal cancer, went [place] [facility] [place]. Now with worsening abd pain. Has multiple intraabdominal abscesses. Admitted to colorectal Impression: Intraabdominal/pelvic abscess Surgical wound dehiscence Hx CRC s/p colectomy and colostomy Hypokalemia Disposition: Admit Medications Medications - No data to display This note was dictated using Adhysteria Dictation Software. Attempts at proofreading have been made, however errors may still occasionally occur. Marcia Vasquez MD Resident 04/29/24 0046 * Renee Cox RN - 04/28/2024 11:58 PM EDT Transferred from [facility]. HX of Colon cancer, went [place] [facility] for resection that took place on 03/30, hadcomplications, ended up with a colostomy that became infected now has purulent drainage. PT A&O. * Renetta Mason RN - 04/28/2024 11:58 PM EDT Bed: E017 Expected date: 04/28/24 Expected time: 12:00 AM Means of arrival: Hospital Transport Comments: documented in this encounter[facility] Emergency department Note* Mara Tang RN - 04/30/2024 12:15 PM EDT Attempted to call report to Brittney Miller RN unavailable to take report at this time. [facility] History of Present illness Narrative* Susie Fuentes [...] have coveragefor medications. DAVID Moreno Colorectal Surgery [phone] For evening and weekend discharge assistance: Pager for composition roll maker and cutter [facility] at [phone] Pager for composition roll maker and cutter [phone] * Cj Medina RPH - 04/29/2024 12:53 AM EDT Department of Pharmacy Outside Facility Transfer Note Patient: Andrew Posada Room/Bed: E017/E017 Patient has transferred from the Emergency Department at [facility] . I have reviewed records from the outside hospital available via scanned images in the media tab of the electronichealth record and confirmed the following antimicrobial, antiepileptic, and anticoagulant medications were received by the patient prior to arrival at [facility]: Antimicrobials: - Piperacillin/tazobactam 4.5 grams IV at ~1900 Other: - Potassium chloride 10 mEq IV at ~1730 and ~1900 Please feel free to contact me with any further questions. Cj Medina, Selene, LAURI, BCEMP, BCCCP, BCPS Specialty Practice Pharmacist - Emergency Medicine Pager: [phone] Work Portable Date/Time: 04/29/2024 12:53 AM documented in this encounterOS[facility] Emergency department Note* Sue Martin RN - 04/30/2024 5:56 AM EDT Pt's abd wound with copious bloody/purulent drainage. Dressing and gown changed. Wound cleansed with NS. [facility] Emergency department Note* Sue Martin RN - 04/29/2024 11:46 PM EDT Pt declines 0000 blood draw. [facility] Consult note* Jon Tapia MD - 04/29/2024 10:27 AM EDTAssociated Order(s): IP CONSULT TO INTERVENTIONAL RADIOLOGY Vascular Interventional Radiology Consult Note Interventional Radiology Clinic [phone] - Interventional Radiology Scheduling [phone] [facility] personal protection specialist [id number] - [facility] personal protection specialist [id number] PATIENT: Mr. Andrew Posada Admission Date: 04/28/2024 [...] consult to procedure. Questions For questions regarding [facility] Inpatients please call [phone]. For questions regarding [facility] Inpatients please call [phone]. For questions regarding Biopsies, please call [phone]. [facility] Work Phone: 1(970) 854-361107-11-2024 Consult note* Jon Tapia MD - 04/29/2024 10:27 AM EDTAssociated Order(s): IP CONSULT TO INTERVENTIONAL RADIOLOGY Vascular Interventional Radiology Consult Note Interventional Radiology Clinic [phone] - Interventional Radiology Scheduling [phone] [facility] personal protection specialist [id number] - [facility] personal protection specialist [phone] PATIENT: Mr. Andrew Posada Admission Date: 04/28/2024 [...] consult to procedure. Questions For questions regarding [facility] Inpatients please call [phone]. For questions regarding [facility] Inpatients please call [phone]. For questions regarding Biopsies, please call [phone]. documented in this encounterOS[facility] Emergency department Note* Jazmine Tovar RN - 04/29/2024 9:29 AM EDTSummary: Initial assessment - Catherine MIGUEL A [facility] 04/29/24 0922 Referral Information Arrived From emergency department;home or self-care (From home to ER just arrived post op from [place] to the on Friday) Readmission Information Was patient readmitted within 30 Days? No Information Source Information Source patient ;spouse;review of medical record Information Source Name Opal Posada spouse Information Source Number # listed is for curt Edwards [phone] Outpatient Providers Outpatient Providers Updated In IS No Contact Information Blender/Braze Applicator/SW Added to Care Team No This Ply Splicer is Primary Blender/Braze Applicator/SW Yes Blender/Braze Applicator Name Jazmine- MIGUEL A ZHU Blender/Braze Applicator's Phone Number [phone] Social Work Contact Name See daily coverage for ER SW Contract Loader's Phone Number See daily coverage for ER [...] Employment/Financial Employed? Yes Employment Details Works at [employer] Employment/Financial Concerns no Source Of Income salary/wages Financial Concerns other (see comments) (Patient is linked with the [facility] Funding source) Insurance Medical Insurance Verified Yes Prescription Coverage Yes Pharmacy updated in [facility] Yes Initial Discharge Planning Home Care Services (CALL CENTER RECEPTIONIST) No Home Therapies (CALL CENTER RECEPTIONIST) None DME (CALL CENTER RECEPTIONIST) None Medical Supplies (CALL CENTER RECEPTIONIST) Ostomy Supplies;Other (comment) (They were given ostomy supplies when they left [place]) Patient Goal for Discharge Return home with assistance from family and friends Anticipated discharge disposition Home Anticipated Services at Discharge Outpatient wound/drain/ostomy care;Outpatient follow up Anticipated Changes Related to Illness none Current Discharge Risk chronically ill (Cancer diagnosed March 09 then had surgery in [place] 03-30) Transportation Available family or friend will provide Home Care Services (CALL CENTER RECEPTIONIST) Additional Home Care Services (CALL CENTER RECEPTIONIST) no Assessment/Concerns to be Addressed Concerns To [...] with colon cancer 03-09-24 and went to [place] for a colectomy with colostomy placement which was performed on 03/30/2024. He returned to the [facility] a few days ago, noted progressive purulentdrainage [...] have colostomy supplies that were provided in [place] Initial PCR Discharge Planning Patient resides in [place] traveled to [place] for colectomy, had complications requiring colostomy. He traveled to [place] to seek expedited care and a friend had the same surgery and did well.Post colectomy for colon cancer in [place], presents to [facility] ER with intraabdominal infection, wound dehiscence and drainage. [place] the [place]. He is uninsured but,connected to the [employer] system.Notified Rose in financial services for additionalresources. Mr Posada would like to receive care at [facility] with local Oncology in the [facility]. Final plan will be determined closer to discharge, pending therapy and medical team recommendations. Patient/family verbalized understanding and agreement with the plan of care. Patient/family have no questions at this time. PCRM will continue to follow patient with multidisciplinary team for ongoing assessment of needs and for discharge planning. Medical team updated. BRIANNA Lucero, RN, [facility] Patient Care Maintenance Mgr [facility] Emergency/Observation Department /[phone] Available via secure chat [facility]07-11-[facility] Emergency department Note* Marcia Vasquez MD - [...] ideal weight.). Marcia Vasquez MD Resident 04/29/24423 [facility] Work Phone: 1(461) 666-600507-11-2024 Physician Emergency department Note* Marcia Vasquez MD - 04/29/2024 12:24 AM EDT DEPARTMENT OF EMERGENCY MEDICINE CHIEF COMPLAINT Post-Op Problem HPI Andrew Posada is a 58 y.o. male with history of colon cancer s/p resection w/ colostomy who presents as a transfer from [facility] for abdominal abscess. The patient states that he was recently diagnosed with colon cancer and went to [place] for a colectomy with colostomy placement which [...] outside hospital were pushed to [facility] from [facility]. Will consult general surgery for evaluation and [...] 2304 SO: hx colorectal cancer, went [place] [facility]. Now with worsening abd pain. Has multiple intraabdominal abscesses. Admitted to colorectal Impression: Intraabdominal/pelvic abscess Surgical wound dehiscence Hx CRC s/p colectomy and colostomy Hypokalemia Disposition: Admit Medications Medications - No data to display This note was dictated using Adhysteria Dictation Software. Attempts at proofreading have been made, however errors may still occasionally occur. Marcia Vasquez MD Resident 04/29/24 0046 [facility]07-10-2024 Emergency department Note* Renee Cox RN - 04/28/2024 11:58 PM EDT Transferred from [facility]. HX of Colon cancer, went [place] [facility] for resection that took place on 03/30, hadcomplications, ended up with a colostomy that became infected now has purulent drainage. PT A&O. [facility]07-10-[facility] Emergency department Note* Renetta Mason RN - 04/28/2024 11:58 PM EDT Bed: E017 Expected date: 04/28/24 Expected time: 12:00 AM Means of arrival: Hospital Transport [facility]: [facility] Author Handy Royal [facility] Note Date/Time March 01, 2025 12:50 pm [facility] Medical Records Department [address] [place] [address] Discharge Summary 03/01/25 1245 MR#: [id number] Acct: [id number] Name: TIMANDREW A Rep #:[id number] : 1965 59 From: Handy Harris PCP: WENDY Gonzalez Status:A DM IN [place] [facility] Providers Date of Admission: 02/24/25 Date of Discharge: 03/01/25 Primary Care Physician: WENDY Gonzalez Consultations 02/24/25 12:29 Consult: General Surgery Routine Consulting Provider: Kunal Chandler Reason for Consult: SMALL BOWEL OBSTRUCTION EMERGENT Consult: No MD Notified: Yes Date Notified: 02/24/25 Time Notified: 11:33 Method of Notification: Verbal 02/25/25 07:00 Consult: Onc/Wound/deck mate Routine Comment: Reason for Consult:: colostomy, nephrotube [...] (Auto) 59.6, Lymph % (Auto) 15.3 L, Bowie % (Auto) 19.7 H, Eos % (Auto) [...] hernia. 4. Inguinal hernias, bilaterally. 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 Has obvious fat/muscle loss throughout body [...] (Auto) 46.6 L, Lymph % (Auto) 22.3, Bowie % (Auto) 25.5 H, Eos % (Auto) [...] minutes early. Please contact our office at [phone], option #4 for a nurse if you [...] minutes early. Please contact our office at [phone], option #4 for a nurse if you have any questions following discharge. Bring ostomy supplies with you to your follow-up. Below is an example of foods to continue eating at discharge. You may increase diet to regular food after 3 days from discharge date. If you have any questions, please contact our office. Transitional Diet Beverages: ? Soda (cola, diet cola, lemon-pilot point, diet lemon-pilot point, garrett duane, diet garrett duane) ? Tea (hot or iced) ? Milk (low-fat, 2%, lactose free) ? Coffee ? Juice (without pulp) ? Oral Nutrition supplement Breakfast: ? Hot cereal (oatmeal or cream of wheat) ? Scrambled eggs ? Blueberry muffin ? Cold cereal (no whole grain cereals) ? [place] (white) Lunch or Dinner: Deli Items: Hot Items: [place] sandwich Roast [place] Tuna salad (sandwich or alone) Macaroni & [...] Physician,No Primary [Non-Staff] - Elly Bellamy NP, BAG FILLER MACHINE OPERATOR-C [Primary Care Provider] - Disposition Disposition (needs filled in before D/C Order can be placed): Home, Self Care Charges/Coding Visit Charges Inpatient E&M: 11734 Disch Hosp >30min 03/01/25 1250 <Electronically signed by Handy Royal MD> Cosigner Signature (if applicable): CC: BAG FILLER MACHINE OPERATORZach Bellamy; Dr. Handy Royal MD~ Signed [facility] Work Phone: Evaluation note* Diagnosis Colon cancer- Primary Malignant neoplasm of colon, unspecified site Abscess Cellulitis and abscess of unspecified site Postprocedural urinary retention Infection Unspecified infectious and parasitic diseases Abscess Cellulitis and abscess of unspecified site [facility] encounter [facility] Diagnosis Urinary retention- Primary Retention of urine, unspecified documented in [facility]* Diagnosis Abscess Cellulitis and abscess of unspecified site documented [facility]* Diagnosis Malignant neoplasm of rectum- Primary Malignant neoplasm of rectum documented [facility] Diagnosis Malignant neoplasm of rectum [facility] Diagnosis Malignant neoplasm of rectum- Primary [facility] Diagnosis Malignant neoplasm of rectum [facility]* Diagnosis Dehydration- Primary Hydronephrosis, unspecified hydronephrosis type Malignant neoplasm of colon, unspecified part of colon Bradycardia Other specified cardiac dysrhythmias Hydronephrosis, unspecified hydronephrosis type [facility] Diagnosis Mixed stress and urge urinary incontinence- Primary Mixed incontinence urge and stress (male)(female) Ureteral stricture Stricture or kinking of ureter [facility] Diagnosis Mixed stress and urge urinary incontinence- Primary Mixed incontinence urge and stress (male)(female) Ureteral stricture Stricture or kinking of ureter Malignant neoplasm of rectum- Primary [facility] Diagnosis Mixed stress and urge urinary incontinence- Primary Mixed incontinence urge and stress (male)(female) Ureteral stricture Stricture or kinking of ureter Ureteral stricture- Primary Stricture or kinking of ureter documented in this encounter [facility] (narrative)* Unlisted Procedure Code (Routine) - Pending Review Specialty Diagnoses / Procedures Referred By Contac t Referred To Contact Procedures PLATELET MONITORING PER PROTOCOL Hilary Lewis MD [address] [place] [address] Referral ID Status Reason Start Date Expiration Date V isits Requested Visits Authorized [id number] Pending Review 04/29/2024 05/24/2025 1 1 * Unlisted Procedure Code (Routine) - Pending Review Specialty Diagnoses / Procedures Referred By Contac t Referred To Contact Procedures DVT/VTE RISK ASSESSMENT Hilary Lewis MD [address] [place] [address] Referral ID Status Reason Start Date Expiration Date V isits Requested Visits Authorized [id number] Pending Review 04/29/2024 05/24/2025 1 1 [facility] (narrative)* Consultation (Routine) - New Request Specialty Diagnoses / Procedures Referred By Contac t Referred To Contact Diagnoses Bradycardia Hilary Lewis MD [address] [facility] [address] [place] [address] Referral ID Status Reason Start Date Expiration Date V isits Requested Visits Authorized [id number] New Request 10/18/2024 11/12/2025 1 1 Scheduling [...] Lewis MD [address] [place] [address] Referral ID Status Reason Start Date Expiration Date V isits Requested Visits Authorized [id number] New Request 10/18/2024 11/12/2025 1 1 * Radiology (Emergency) - New Request Specialty Diagnoses / Procedures Referred By Adam t Referred To Contact Procedures ECG Hilary Lewis MD [address] [address] Referral ID Status Reason Start Date Expiration Date V isits Requested Visits Authorized [id number] New Request 10/15/2024 11/09/2025 1 1 * Radiology (Routine) - New Request Specialty Diagnoses / Procedures Referred By Contac t Referred To Contact Diagnoses Hydronephrosis, unspecified hydronephrosis type Malignant neoplasm of colon, unspecified part of colon Procedures CASE REQUEST DEPARTMENT USE ONLY INTERVENTIONAL RADIOLOGY Flory Gregory, DRIVER MESSENGER-HOOK AND EYE SEWING MACHINE OPERATOR [address] [place] [address] Referral ID Status Reason Start Date Expiration Date V isits Requested Visits Authorized [id number] New Request 10/14/2024 11/08/2025 1 1 * (Routine) Specialty Diagnoses / Procedures Referred By Adam t Referred To Contact CATHERINE [address] [place] [address] Referral ID Status Reason Start Date Expiration Date Visits Re quested Visits Authorized * Consultation (Routine) - New Request Specialty Diagnoses / Procedures Referred By Adam combs Referred To Contact Urology Diagnoses Hydronephrosis, unspecified hydronephrosis type Carmelina Sanders DO [address] [address] Referral ID Status Reason Start Date Expiration Date V isits Requested Visits Authorized [id number] New Request 10/12/2024 11/06/2025 1 1 [facility] for visit Narrative* Auth/Cert Specialty Diagnoses / Procedures Referred By Adam combs Referred To Contact Diagnoses Malignant neoplasm of rectum Malignant neoplasm of rectum [C20] Procedures IA SIGMOIDOSCOPY FLX DX W/COLLJ SPEC BR/WA IF PFRMD SIGMOIDOSCOPY DIAGNOSTIC Hilary Lewis MD [address] [address] [facility] [address] [place] [address] Referral ID Status Reason Start Date Expiration Date Visits Re quested Visits Authorized [id number] 1 1 [facility] for visit Narrative* Auth/Cert Specialty Diagnoses / Procedures Referred By Adam t Referred To Contact Diagnoses Dehydration, INOCENCIA Hilary Lewis MD [address] [address] [facility] [address] [place] [address] Referral ID Status Reason Start Date Expiration Date Visits Re quested Visits Authorized [id number] 1 1 [facility] Summary Purpose Family History No Family [...] Do you have a Healthcare Power of Military Science Instructor? No February 16, 2025 9:18am Advance Directives No February 16 9:18am Do you have a Healthcare Power of Military Science Instructor? No February 24, 2025 7:42am Advance Directive Response Recorded Date/ Time Advance Directives on File No February 16, 2025 9:18am Living Will No February 16, 2025 9:18am Do you have a Healthcare Power of Military Science Instructor? No February 16, 2025 9:18am Advance Directives No February 16 9:18am Do you have a Healthcare Power of Military Science Instructor? No February 24, 2025 12:38pm Reason for Referral Specialty Diagnoses / Procedures Referred By Contac t Referred To Contact Diagnoses Abscess Procedures CT ABDOMEN/PELVIS WITH CONTRAST CHG CT ABDOMEN & PELVIS W/CONTRAST MATERIAL Hilary Lewis MD [address] [place] [address] Referral ID Status Reason Start Date Expiration Date V isits Requested Visits Authorized [id number] New Request 05/04/2024 05/29/2025 1 1 Specialty Diagnoses / Procedures Referred By Contac t Referred To Contact Urology Diagnoses Abscess Postprocedural urinary retention Hilary Lewis MD [address] [place] [phone] Referral ID Status Reason Start Date Expiration Date V isits Requested Visits Authorized [id number] New Request 05/03/2024 05/28/2025 1 1 Specialty Diagnoses / Procedures Referred By Contac t Referred To Contact Procedures PLATELET MONITORING PER PROTOCOL Hilary Lewis MD [address] [place] [phone] Referral ID Status Reason Start Date Expiration Date V isits Requested Visits Authorized [id number] New Request 05/01/2024 05/26/2025 1 1 Specialty Diagnoses / Procedures Referred By Contac t Referred To Contact Procedures DVT/VTE RISK ASSESSMENT Hilary Lewis MD [address] [place], [place] [phone] Referral ID Status Reason Start Date Expiration Date V isits Requested Visits Authorized [id number] New Request 05/01/2024 05/26/2025 1 1 Specialty Diagnoses / Procedures Referred By Contac t Referred To Contact Oncology Diagnoses Malignant neoplasm of rectum Hilary Lewis MD [address] [place] [phone] Referral ID Status Reason Start Date Expiration Date V isits Requested Visits Authorized [id number] New Request 05/20/2024 06/14/2025 1 1 Specialty Diagnoses / Procedures Referred By Contac t Referred To Contact Diagnoses Malignant neoplasm of rectum Hilary Lewis MD [address] [place] [address] Referral ID Status Reason Start Date Expiration Date V isits Requested Visits Authorized [id number] New Request 05/20/2024 06/14/2025 1 1 Specialty Diagnoses / Procedures Referred By Contac t Referred To Contact Radiation Oncology Diagnoses Malignant neoplasm of rectum Hilary Lewis MD [address] [facility] [address] [place] [address] Referral ID Status Reason Start Date Expiration Date V isits Requested Visits Authorized [id number] New Request 05/20/2024 06/14/2025 1 1 Specialty Diagnoses / Procedures Referred By Contac t Referred To Contact Diagnoses Malignant neoplasm of rectum Procedures MRI RECTUM WITHOUT AND WITH CONTRAST MRI PELVIS WITH AND WITHOUT CONTRAST CHG MRI PELVIS W/O & W/CONTRAST MATERIAL Shruthi Welch, DRIVER MESSENGER-HOOK AND EYE SEWING MACHINE OPERATOR [address] [facility] [address] [place] [address] Referral ID Status Reason Start Date Expiration Date V isits Requested Visits Authorized [id number] New Request 09/01/2024 09/26/2025 1 1 Specialty Diagnoses / Procedures Referred By Contac t Referred To Contact Diagnoses Malignant neoplasm of rectum Procedures FLEXIBLE SIGMOIDOSCOPY IA SIGMOIDOSCOPY FLX DX W/COLLJ SPEC BR/WA IF PFRMD Hilary Lewis MD [address] [place] [address] Referral ID Status Reason Start Date Expiration Date V isits Requested Visits Authorized [id number] New Request 10/29/2024 11/23/2025 1 1 Chief [...] and content) DATE CREATED AUTHOR 03/18/[address] [facility] DATE CREATED AUTHOR AUTHOR'S ORGANIZ ATION 02/25/2025 [facility] DATE CREATED AUTHOR AUTHOR'S ORGANIZ ATION 03/19/2025 [facility] Reason for Visit (unrecogniz ed section and content) Reason Comments Post-Op Problem Reason Comments Follow-up Specialty Diagnoses / Procedures Referred By Adam t Referred To Contact Urology Diagnoses Abscess Postprocedural urinary retention Hilary Lewis MD [address] [phone] Referral ID Status Reason Start Date Expiration Date V isits Requested Visits Authorized [id number] New Request 05/03/2024 05/28/2025 1 1 Specialty Diagnoses / Procedures Referred By Contac t Referred To Contact Diagnoses Abscess Procedures CT ABDOMEN/PELVIS WITH CONTRAST CHG CT ABDOMEN & PELVIS W/CONTRAST MATERIAL Hilary Lewis MD [address] [phone] Referral ID Status Reason Start Date Expiration Date V isits Requested Visits Authorized [id number] New Request 05/04/2024 05/29/2025 1 1 Reason [...] PELVIS W/O & W/CONTRAST MATERIAL Shruthi Welch, DRIVER MESSENGER-HOOK AND EYE SEWING MACHINE OPERATOR [address] [facility] [address] [place] [address] Referral ID Status Reason Start Date Expiration Date V isits Requested Visits Authorized [id number] New Request 09/01/2024 09/26/2025 1 1 Specialty Diagnoses / Procedures Referred By Adam combs Referred To Contact Urology Diagnoses Hydronephrosis, unspecified hydronephrosis type Carmelina Sanders DO [address] [place] [address] Referral ID Status Reason Start Date Expiration Date V isits Requested Visits Authorized [id number] New Request 10/12/2024 11/06/2025 1 1 Reason [...] Walters MD [address] [place] [address] Referral ID Status Reason Start Date Expiration Date Visits Re quested Visits Authorized [id number] Denied 10/21/2024 11/15/2025 1 0 Scheduled Active [...] - Radiology - Provider: Rachael Hoffman) Lidocaine-epinephrine 1%-1:233393 injection 20 mL (COMPLETED) 20 mL, Other, [...] 0300 0320 ($$New Bag$$ - Provider: Renee Cox RN)0420 (Stopped - Provider: Renee Cox RN) [...] 0134 ($$New Bag$$ - Provider: Renee Cox RN)0650 (Stopped - Provider: Renee Cox RN) PRN [...] - Reason: Transfer to a Procedural area)1639 ([facility] Unhold - Provider: Automatic Transfer) 0856 (Given [...] Angelique Merchant RN - Reason: Patient/family refused)1432 ([facility] Hold - Provider: Automatic Transfer - Reason: Transfer to a Procedural area)1639 ([facility] Unhold - Provider: Automatic Transfer)1825 (Not Given [...] ($$New Bag$$ - Provider: Angelique Merchant RN)1432 ([facility] Hold - Provider: Automatic Transfer - Reason: Transfer to a Procedural area)1639 ([facility] Unhold - Provider: Automatic Transfer)2105 ($$New Bag$$ - Provider: Giovanna Cifuentes RN) 0342 ($$New Bag$$ - Provider: Giovanna Cifuentes RN) Tamsulosin HCl (FLOMAX) capsule 0.4 mg 0.4 mg, Oral, DAILY, First dose (after last modification) on Fri05/02/24 at 1000, Until Discontinued, Slow release product. Do not chew or crush 0955 (Given - Provider: Angelique Merchant RN)1432 ([facility] Hold - Provider: Automatic Transfer - Reason: Transfer to a Procedural area)163 ([facility] Unhold - Provider: Automatic Transfer) 0856 (Given - Provider: Angelique Merchant RN) 1034 (Given - Provider: Angelique Merchant RN) Thiamine (Vitamin B-1) injection 100 mg 100 mg, Intravenous, DAILY, 7 doses, First dose on Fri05/04/24 at 0900, Last dose on Fri05/10/24 at 0900 1026 (Not Given - Provider: Angelique Merchant RN - Reason: Patient/family refused)1432 ([facility] Hold - Provider: Automatic Transfer - Reason: Transfer to a Procedural area)163 ([facility] Unhold - Provider: Automatic Transfer) 0856 (Given - Provider: Angelique Merchant RN) 1035 (Given - Provider: Angelique Merchant RN) zinc sulfate (ZINCATE) capsule 220 mg 220 mg, Oral, DAILY BEFORE BREAKFAST, 14 doses, First dose on Fri05/04/24 at 0600, Last dose on Fri05/17/24 at 0600, Take 1 hr before, 2 hr after meals. 0702 (Given - Provider: Sherin León RN)1432 ([facility] Hold - Provider: Automatic Transfer - Reason: Transfer to a Procedural area)1639 ([facility] Unhold - Provider: Automatic Transfer) 0638 (Given [...] 2 g, Intravenous, Administer over 30 Minutes, PE MANAGER TO PROCEDURE, 1 dose, Starting on Fri05/07/24 [...] to 1.3 mg/dL use IV replacement. 143 ([facility] Hold - Provider: Automatic Transfer - Reason: Transfer to a Procedural area)163 ([facility] Unhold - Provider: Automatic Transfer) Magnesium sulfate [...] to high volume output; administer 2g. 143 ([facility] Hold - Provider: Automatic Transfer - Reason: Transfer to a Procedural area)163 ([facility] Unhold - Provider: Automatic Transfer) Magnesium sulfate [...] at 200 mL/hr, Administer over 30 Minutes, PE MANAGER TO PROCEDURE, 1 dose, Starting on Fri05/07/24 [...] Line Nausea / Vomiting, Discharge Readmit 1432 ([facility] Hold - Provider: Automatic Transfer - Reason: Transfer to a Procedural area)1639 ([facility] Unhold - Provider: Automatic Transfer) Ondansetron 4mg/2ml (ZOFRAN) injection 4 mg(Linked Group 2) 4 mg, Intravenous, EVERY 6 HOURS NEEDED, Starting on 04/30/24 at 1413, Until 05/09/24 at 1614, Nausea / Vomiting, 1st Line Nausea / Vomiting, If patient is unable to tolerate PO., Discharge Readmit 1432 ([facility] Hold - Provider: Automatic Transfer - Reason: Transfer to a Procedural area)1639 ([facility] Unhold - Provider: Automatic Transfer) oxyCODONE (ROXICODONE) [...] in level of consciousness)., Discharge Readmit 1432 ([facility] Hold - Provider: Automatic Transfer - Reason: Transfer to a Procedural area)1639 ([facility] Unhold - Provider: Automatic Transfer) oxyCODONE HCl [...] in previous 12 hours., Discharge Readmit 1432 ([facility] Hold - Provider: Automatic Transfer - Reason: Transfer to a Procedural area)1639 ([facility] Unhold - Provider: Automatic Transfer) Phenol (CHLORASEPTIC) 1.4 % oral spray 1 spray 1 spray, Mouth/Throat, NEEDED, Starting on Fri04/30/24 at 1413, Until 05/09/24 at 1614, Sore Throat, Patient may self-administer., Discharge Readmit 1432 ([facility] Hold - Provider: Automatic Transfer - Reason: Transfer to a Procedural area)1639 ([facility] Unhold - Provider: Automatic Transfer) Potassium Bicarb-Citric [...] to 2.9 mmol/L use IV replacement. 1432 ([facility] Hold - Provider: Automatic Transfer - Reason: Transfer to a Procedural area)1639 ([facility] Unhold - Provider: Automatic Transfer) Potassium chloride [...] - Reason: Transfer to a Procedural area)163 ([facility] Unhold - Provider: Automatic Transfer) Potassium chloride [...] unable to tolerate PO., Discharge Readmit 1432 ([facility] Hold - Provider: Automatic Transfer - Reason: Transfer to a Procedural area)1639 ([facility] Unhold - Provider: Automatic Transfer) Prochlorperazine (COMPAZINE) tablet 5 mg(Linked Group 5) 5 mg, Oral, EVERY 6 HOURS NEEDED, Starting on Fri04/30/24 at 1413, Until 05/09/24 at 1614, Refractory Nausea Vomiting, If unrelieved by Ondansetron., Discharge Readmit 1432 ([facility] Hold - Provider: Automatic Transfer - Reason: Transfer to a Procedural area)1639 ([facility] Unhold - Provider: Automatic Transfer) Sodium chloride [...] or piggy back medication., Discharge Readmit 1432 ([facility] Hold - Provider: Automatic Transfer - Reason: Transfer to a Procedural area)1449 ($$New Bag$$ - Provider: Christy French RN)1639 ([facility] Unhold - Provider: Automatic Transfer) sodium phosphate [...] high volume output administer 15 mmol. 1432 ([facility] Hold - Provider: Automatic Transfer - Reason: Transfer to a Procedural area)163 ([facility] Unhold - Provider: Automatic Transfer) sodium phosphate [...] after last phosphate replacement dose administered. 1432 ([facility] Hold - Provider: Automatic Transfer - Reason: Transfer to a Procedural area)163 ([facility] Unhold - Provider: Automatic Transfer) Sodium-potassium phosphate [...] - Reason: Transfer to a Procedural area)1639 ([facility] Unhold - Provider: Automatic Transfer) Sodium-potassium phosphate [...] to 1.8 mg/dL utilize IV replacement. 1432 ([facility] Hold - Provider: Automatic Transfer - Reason: Transfer to a Procedural area)1639 ([facility] Unhold - Provider: Automatic Transfer) Linked Groups [...] DIRECTED, Starting on Fri04/30/24 at 1758, Until [place] 05/09/24 at 1614, Other, Surgery Non-ICU Electrolyte [...] DIRECTED, Starting on Fri04/30/24 at 1758, Until [place] 05/09/24 at 1614, Other, Surgery Non-ICU Electrolyte [...] (Anesthesia Volume Adjustment - Provider: Louie Cardenas APRN-CONCESSIONS MANAGER)1206 (Restarted - Provider: Rehan Guardado RN)1249 (Stopped [...] Abdi RN)1001 ($$New Bag$$ - Provider: Skylar aJckson, FERNANDO)1603 (Paused - Provider: Megan Lara RN)1605 [...] Care Teams (unrecognized sec tion and content) Alternative Education Teacher Relationship Specialty Start Date End Date Self, Self PCP - General Other 04/29/24 Alternative Education Teacher Relationship Specialty Start Date End Date Self, Self PCP - General Other 04/29/24 Alternative Education Teacher Relationship Specialty Start Date End Date Self, Self PCP - General Other 04/29/24 Alternative Education Teacher Relationship Specialty Start Date End Date Self, Self PCP - General Other 04/29/24 Alternative Education Teacher Relationship Specialty Start Date End Date Self, Self PCP - General Other 04/29/24 Alternative Education Teacher Relationship Specialty Start Date End Date Self, Self PCP - General Other 04/29/24 Alternative Education Teacher Relationship Specialty Start Date End Date Self, Self PCP - General Other 04/29/24 Alternative Education Teacher Relationship Specialty Start Date End Date Self, Self PCP - General Other 04/29/24 Alternative Education Teacher Relationship Specialty Start Date End Date Self, Self PCP - General Other 04/29/24 Guy Ho MD [address] [place] [address] Oncologist Hematology 10/14/24 Ambrose Leija DO [address] [facility] [address] [phone] Radiation Oncologist Radiation Oncology 10/14/24 Laura Guerra, FERNANDO Registered Nurse 10/14/24 Alternative Education Teacher Relationship Specialty Start Date End Date Self, Self PCP - General Other 04/29/24 Guy Ho MD [address] [place] [address] Oncologist Hematology 10/14/24 Ambrose Leija DO [address] [facility] [address] [place] [phone] Radiation Oncologist Radiation Oncology 10/14/24 Laura Guerra, RN Registered Nurse 10/14/24 Alternative Education Teacher Relationship Specialty Start Date End Date Self, Self PCP - General Other 04/29/24 Guy Ho MD [address] [place] [address] Oncologist Hematology 10/14/24 Ambrose Leija DO [address] [facility] [address] [place] [address] Radiation Oncologist Radiation Oncology 10/14/24 Laura Guerra, FERNANDO Registered Nurse 10/14/24 Alternative Education Teacher Relationship Specialty Start Date End Date Self, Self PCP - General Other 04/29/24 Guy Ho MD [address] [place] [address] Oncologist Hematology 10/14/24 Ambrose Leija DO [address] [facility] [address] [place] [address] Radiation Oncologist Radiation Oncology 10/14/24 [...] 2024 End: November 03, 2024 Rubi Mercedes BAG FILLER MACHINE OPERATOR, BAG FILLER MACHINE OPERATOR-C Attending Provider Active Start: November 03, 2024 [...] 2024 End: November 08, 2024 Dr. Guy Ho MD Attending Provider Active S tart: November [...] End: November 22, 2024 Rubi Mercedes NP, BAG FILLER MACHINE OPERATOR-C Attending Provider Active Start: November 22, 2024 [...] End: December 28, 2024 Rubi Mercedes NP, BAG FILLER MACHINE OPERATOR-C Attending Provider Active Start: December 28, 2024 [...] Member Role Status Dates Elly Bellamy NP, BAG FILLER MACHINE OPERATOR-C Primary Care Provider Acti ve Team Status: [...] End: March 01, 2025 Elly Bellamy NP, BAG FILLER MACHINE OPERATOR-C Primary Care Provider Acti ve Start: February [...] art: February 27, 2025 Elly Bellamy NP, BAG FILLER MACHINE OPERATOR-C Primary Care Provider Acti ve Start: February [...] art: February 27, 2025 Elly Bellamy NP, BAG FILLER MACHINE OPERATOR-C Primary Care Provider Acti ve Start: February [...] art: February 28, 2025 Elly Bellamy NP, BAG FILLER MACHINE OPERATOR-C Primary Care Provider Acti ve Start: February [...] BE BASED ON THE PRIMARY CLINICAL RECORDS. [employer] provides no warranty or guarantee of the accuracy or completeness of information in this document.
[2025-03-25 01:47] LABS: Magnesium 1.8 mg/dL (1.5-2.2); Phosphorus 11.8 mg/dL (2.7-4.5)
--- NOTE | 2025-03-25 01:47 | ED.RN ---
Dr De Dios notified of critical phos.
[2025-03-25 01:51] LABS: Bedside Glucose 104 mg/dL (74-106)
--- OUTSIDE RECORDS SUMMARY | 2025-03-25 01:51 | XMS RPT_ITS | CCD ---
Author Organization [facility] Care Team Providers Care Drag Car Racer Name Role Phone JOSESITO CASTELLON-ELLY Rangel Unavailable ADI STANTON, VINICIUS Combs Unavailable SALENA FOSTER Unavailable Unavailable Unavailable ANASTACIA RENDON Unavailable Gregoria Cummings RN Unavailable Unavailable SATURNINO, JERRY Admitting Unavailable SATURNINO, JERRY Primary Care Unavailable JERRY MATAMOROS Attending Unavailable MATAMOROS, JERRY Admitting Unavailable MATAMOROS, JERRY Primary Care Unavailable JERRY MATAMOROS Attending Unavailable ELLY BELLAMY SHIPPING CLERK/ADMIN Admitting Unavailab ELLY Carrion NP Primary Care Unavailab ELLY Carrion SHIPPING CLERK/ADMIN Attending Unavailab le STEPHANIE ROUSSEAU Admitting Unavailable STEPHANIE ROUSSEAU Primary Care Unavailable STEPHANIE ROUSSEAU Attending Unavailable Self, Self Primary Care Provider Unavailabl e ELLY OLEA Unavailable Unav ailable Randall NEWELL MD Unavailable [phone] Guy Ho MD Unavailable Ambrose Leija DO Unavailable Laura Guerra RN Unavailable Unavailable Care Physician, No Primary Primary Care Provider Unavailable Care Physician, No Primary Referring Provider Un available Rubi Martínez Attending Provider [phone] Dr. Enrique Romero MD Attending Provider Dr. Guy Ho MD Attending Provider Dr. Enrique Romero MD Referring Provider Dr. Rangel Connor MD Attending Provider Dr. Guy Ho MD Referring Provider [phone] Dr. Ambrose Leija DO Other Provider Dr. Gwyn Esquivel DO Emergency Provider Lele STANTON, Dr. Murrell Admit Provider Lele STANTON, Dr. Murrell Attending Provider HARZMAN, [...] Ramesh STANTON, Dr. Kunal Driscoll Other Provider [phone] Josesito SHIPPING CLERK/ADMIN-C, Elly Primary Care Provider Lele STANTON, Dr. Murrell Other Provider Ramesh STANTON, Dr. Kunal Driscoll Attending Provider Reggie STANTON, Dr. Noriega Attending Provider Rachael Tierney PA-C Attending Provider Kunal Chandler Consulting Unavailable Magdafstettmiguel a SHIPPING CLERK/ADMIN, Elly Primary Care Unavailab le Handy Royal Attending Unavailable Handy Royal Admitting Unavailable Handy Royal Consulting Unavailable Care Physician, No Primary Referring Unava ilable Care Physician, No Primary Primary Care Unava ilable Enrique Romero Attending Unavailable Care Physician, No Primary Referring Unava ilable Care Physician, No Primary Primary Care Unava ilable Daren SHIPPING CLERK/ADMIN, Rubi Attending Unavailable Ambrose Leija Attending Unavailable Hofstetter SHIPPING CLERK/ADMIN, Elly Primary Care Unavailab Ambrose Mayes Attending Unavailable Ambrose Leija Referring Unavailable Hofstetter SHIPPING CLERK/ADMIN, Elly Primary Care Unavailab le Guy Ho Attending Unavailable [employer]stetter SHIPPING CLERK/ADMIN, Elly Referring Unavailab le Hofstetter SHIPPING CLERK/ADMIN, Elly Primary Care Unavailab le Care Physician, No Primary Primary Care Unava ilable Care Physician, No Primary Primary Care Unava ilable Leah Kidd Attending Unavailable Handy Royal Referring Unavailable Care Physician, No Primary Primary Care Unava ilable Cori Stephens Attending Unavailable Enrique Romero Attending Unavailable Care Physician, No Primary Primary Care Unava ilable Ambrose Leija Referring Unavailable Hofstetter SHIPPING CLERK/ADMIN, Elly Primary Care Unavailab Ambrose Mayes Attending Unavailable Ambrose Leija Attending Unavailable Ambrose Leija Referring Unavailable Hofstetter SHIPPING CLERK/ADMIN, Elly Primary Care Unavailab le Hofstetter SHIPPING CLERK/ADMIN, Elly Primary Care Unavailab Ambrose Mayes Referring Unavailable Ambrose Leija Attending Unavailable Care Physician, No Primary Referring Unava ilable Care Physician, No Primary Primary Care Unava ilable Guy Ho Attending Unavailable Hofstetter SHIPPING CLERK/ADMIN, Elly Referring Unavailab le Hofstetter SHIPPING CLERK/ADMIN, Elly Primary Care Unavailab le Daren SHIPPING CLERK/ADMIN, Rubi Attending Unavailable Ambrose Leija Attending Unavailable Ambrose Leija Referring Unavailable Hofstetter SHIPPING CLERK/ADMIN, Elly Primary Care Unavailab le Hofstetter SHIPPING CLERK/ADMIN, Elly Primary Care Unavailab le [employer]stetter SHIPPING CLERK/ADMIN, Elly Referring Unavailab le Daren SHIPPING CLERK/ADMIN, Rubi Attending Unavailable Hofstetter SHIPPING CLERK/ADMIN, Elly Referring Unavailab le Hofstetter SHIPPING CLERK/ADMIN, Elly Primary Care Unavailab le Prah, Guy Attending Unavailable Hofstetter SHIPPING CLERK/ADMIN, Elly Referring Unavailab le Hofstetter SHIPPING CLERK/ADMIN, Elly Primary Care Unavailab le Daren SHIPPING CLERK/ADMIN, Rubi Attending Unavailable Hofstetter SHIPPING CLERK/ADMIN, Elly Referring Unavailab le Hofstetter SHIPPING CLERK/ADMIN, Elly Primary Care Unavailab le Prah, Guy Attending Unavailable Hofstetter SHIPPING CLERK/ADMIN, Elly Primary Care Unavailab Kunal Richard Attending [...] No Primary Primary Care Unava ilable Daren SHIPPING CLERK/ADMIN, Rubi Attending Unavailable Guy Ho Attending Unavailable Care Physician, No Primary Referring Unava ilable Care Physician, No Primary Primary Care Unava ilable Nick, Wayne Referring Unavailable Nick, Wayne Attending Unavailable Care Physician, No Primary Primary Care Unava ilable Kunal Chandler Consulting Unavailable Ivantetter SHIPPING CLERK/ADMIN, Elly Primary Care Unavailab Handy Caruso Attending Unavailable Lele Handy Admitting Unavailable Nick, Wayne Referring Unavailable Nick, Wayne Attending Unavailable Care Physician, No Primary Primary Care Unava ilable Nick, Wayne Referring Unavailable Nick, Wayne Attending Unavailable Care Physician, No Primary Primary [...] No Primary Primary Care Unava ilable Daren SHIPPING CLERK/ADMIN, Rubi Attending Unavailable Care Physician, No Primary Referring Unava ilable Kunal Chandler Attending Unavailable Magdafsjuan antonioer SHIPPING CLERK/ADMIN, Elly Referring Unavailab le Care Physician, No [...] No Primary Primary Care Unava ilable Daren SHIPPING CLERK/ADMIN, Rubi Attending Unavailable Care Physician, No Primary [...] Unava ilable Vic, Guy Attending Unavailable Ivantehusseiner SHIPPING CLERK/ADMIN, Elly Primary Care Unavailab Kunal Richard Attending Unavailable Kunal Chandler Referring Unavailable Care Physician, No Primary Primary Care Unava ilable Pralisa, Guy Referring Unavailable Vic, Guy Attending Unavailable Care Physician, No Primary Primary Care Unava ilable Pralisa, Guy Referring Unavailable Pralisa, Guy Attending Unavailable Ambrose Leija Consulting Unavailable Kunal Chandler Attending Unavailable Handy Royal Referring Unavailable Hofstetter SHIPPING CLERK/ADMIN, Elly Referring Unavailab le Hofstetter SHIPPING CLERK/ADMIN, Elly Primary Care Unavailab le PrahGuy Attending Unavailable Hofstetter SHIPPING CLERK/ADMIN, Elly Referring Unavailab le Hofstetter SHIPPING CLERK/ADMIN, Elly Primary Care Unavailab le Daren SHIPPING CLERK/ADMIN, Rubi Attending Unavailable Allergies Allergy Classification Reported Allergen(s) Allergy Type Date of Onset Reaction(s) Facility Unclassified (1 source) 10/22/2023 (+) CDIFF TOXIN; Translations: [10/22/2023 (+) CDIFF TOXIN] Propensity to adverse reactions (disorder) [facility] Repository Medications Current Medications Medication Drug [...] 09, 2024 3:07pm 20 ml albumin human, longterm 250 mg/ml injection (1 source) Human Serum Albumin Start: 10-13-2024 End: 10-13-2024 25 g, Intravenous, Administer over 60 Minutes, ONCE, 1 dose, On Fri10/13/24 at 1130, At [facility], in emergencies, administer as rapidly [...] 2 g, Intravenous, Administer over 30 Minutes, VOCATIONAL COORDINATOR TO PROCEDURE, 1 dose, Starting on Fri05/07/24 at 1353, Until Fri05/07/24 at 1601, Surgical Prophylaxis, Initiate antibiotic administration 30-60 minutes prior to surgical incision and complete administration prior to surgical incision., Pre-op/Pre-Proc Start: 04-30-2024 End: 04-30-2024 2 g, Intravenous, Administer over 30 Minutes, VOCATIONAL COORDINATOR TO PROCEDURE, 1 dose, Starting on Fri04/30/24 [...] Subcutaneous, EVERY 24 HOURS, First dose on [facility] 05/01/24 at 0900, Until Discontinued, [...] at 200 mL/hr, Administer over 30 Minutes, VOCATIONAL COORDINATOR TO PROCEDURE, 1 dose, Starting on Fri05/07/24 at 1353, Until Fri05/07/24 at 1538, Surgical Prophylaxis, Initiate antibiotic administration 30-60 minutes prior to surgical incision and complete administration prior to surgical incision., Pre-op/Pre-Proc Start: 04-30-2024 End: 04-30-2024 500 mg, Intravenous, at 200 mL/hr, Administer over 30 Minutes, VOCATIONAL COORDINATOR TO PROCEDURE, 1 dose, Starting on Fri04/30/24 [...] needed Prochlorperazine (COMPAZINE) tablet 5 mg sennosides, longterm 8.6 mg oral capsule (4 sources) Start: [...] Visit Reporton 03-10 Surgery Visit Report Normal [facility] Basic Metabolic Profile (BMP )on 03-02-2025 BUN Normal 4-19 [facility] Comment on above: Result Comment: Canc elled via OM: Order cancelled - Patient discharged Performed By: #### L 100.0100, L500.2500 ####[facility] [address] [place], [address] BUN/CRE Normal 10-20 [facility] Comment on above: Result Comment: Canc elled via OM: Order cancelled - Patient discharged Performed By: #### L 100.0100, L500.2500 ####[facility] [address] [place], [address] Calcium Normal 7.6-11.0 [facility] Comment on above: Result Comment: Canc elled via OM: Order cancelled - Patient discharged Performed By: #### L 100.0100, L500.2500 ####[facility] [address] [place], [address] CL Normal 98-108 [facility] Comment on above: Result Comment: Canc elled via OM: Order cancelled - Patient discharged Performed By: #### L 100.0100, L500.2500 ####[facility] [address] [place], [address] CO2 Normal 21.0-32.0 [facility] Comment on above: Result Comment: Canc elled via OM: Order cancelled - Patient discharged Performed By: #### L 100.0100, L500.2500 ####[facility] [address] [place], [address] CREAT,SERUM Normal 0.70-1.20 [facility] Comment on above: Result Comment: Canc elled via OM: Order cancelled - Patient discharged Performed By: #### L 100.0100, L500.2500 ####[facility] [address] [place], [address] eGFR Normal >60 [facility] Comment on above: Result Comment: Canc elled via OM: Order cancelled - Patient discharged Performed By: #### L 100.0100, L500.2500 ####[facility] [address] [place], [address] GAP Normal 5-15 [facility] Comment on above: Result Comment: Canc elled via OM: Order cancelled - Patient discharged Performed By: #### L 100.0100, L500.2500 ####[facility] [address] [place], [address] GLU Normal 70-99 [facility] Comment on above: Result Comment: Canc elled via OM: Order cancelled - Patient discharged Performed By: #### L 100.0100, L500.2500 ####[facility] [address] [place], [address] Potassium Normal 3.3-5.1 [facility] Comment on above: Result Comment: Canc elled via OM: Order cancelled - Patient discharged Performed By: #### L 100.0100, L500.2500 ####[facility] [address] [place], [address] Basic Metabolic Profile (BMP) Normal 133-145 [facility] Comment on above: Result Comment: Canc elled via OM: Order cancelled - Patient discharged Performed By: #### L 100.0100, L500.2500 ####[facility] [address] [place], [address] CBC W/Diff, Automatedon 05-1 Absolute Neut Normal 2.0-7.7 [facility] Comment on above: Result Comment: Canc elled via OM: Order cancelled - Patient discharged Performed By: #### L 100.0100, L500.2500 ####[facility] [address] [place], [address] HCT Normal 40-54 [facility] Comment on above: Result Comment: Canc elled via OM: Order cancelled - Patient discharged Performed By: #### L 100.0100, L500.2500 ####[facility] [address] [place], [address] HGB Normal 13.0-16.5 [facility] Comment on above: Result Comment: Canc elled via OM: Order cancelled - Patient discharged Performed By: #### L 100.0100, L500.2500 ####[facility] [address] [place], [address] MCH Normal 27.0-32.0 [facility] Comment on above: Result Comment: Canc elled via OM: Order cancelled - Patient discharged Performed By: #### L 100.0100, L500.2500 ####[facility] [address] [place], [address] MCHC Normal 32-36 [facility] Comment on above: Result Comment: Canc elled via OM: Order cancelled - Patient discharged Performed By: #### L 100.0100, L500.2500 ####[facility] [address] [place], [address] MCV Normal 80-94 [facility] Comment on above: Result Comment: Canc elled via OM: Order cancelled - Patient discharged Performed By: #### L 100.0100, L500.2500 ####[facility] [address] [place], [address] NEUT% Normal 47-70 [facility] Comment on above: Result Comment: Canc elled via OM: Order cancelled - Patient discharged Performed By: #### L 100.0100, L500.2500 ####[facility] [address] [place], [address] PLT Normal 150-450 [facility] Comment on above: Result Comment: Canc elled via OM: Order cancelled - Patient discharged Performed By: #### L 100.0100, L500.2500 ####[facility] [address] [place], [address] RBC Normal 4.6-6.2 [facility] Comment on above: Result Comment: Canc elled via OM: Order cancelled - Patient discharged Performed By: #### L 100.0100, L500.2500 ####[facility] [address] [place], [address] RDW CV Normal 11.6-14.6 [facility] Comment on above: Result Comment: Canc elled via OM: Order cancelled - Patient discharged Performed By: #### L 100.0100, L500.2500 ####[facility] [address] [place], [address] RDW SD Normal 35.1-43.9 [facility] Comment on above: Result Comment: Canc elled via OM: Order cancelled - Patient discharged Performed By: #### L 100.0100, L500.2500 ####[facility] [address] [place], [address] WBC Normal 4.4-11.0 [facility] Comment on above: Result Comment: Canc elled via OM: Order cancelled - Patient discharged Performed By: #### L 100.0100, L500.2500 ####[facility] [address] [place], [address] Absolute lymphocyte countOrd ered By: Handy Royal on 03-01-2025 Lymphocytes Auto (Unsp spec) [#/Vol] 0.55 10*3/uL Low 0.83-4.51 [facility] Absolute neutrophil countOrd ered By: Handy Royal on 03-01-2025 Neutrophils (Bld) [#/Vol] 1.2 10*3/uL Low 2.0-7.7 [facility] Anion gap in Serum or Plasma Ordered By: Handy Royal on 03-01-2025 Anion gap [Moles/Vol] 7 mmol/L - [facility] Automated lymphocyte count a s percentage of total leukocytesOrdered By: Handy Royal on 03-01-2025 Lymphocytes/100 WBC Auto (Unsp spec) 22.3 % [facility] BUN/creatinine ratioOrdered By: Handy Royal on 03-01-2025 Urea nitrogen/Creatinine [Mass ratio] 12.6 mg/mg 08-08 [facility] Basic Metabolic Profile (BMP )on 03-01-2025 BUN/CRE 12.6 RATIO Normal 08-08 [facility] Comment on above: Performed By: #### L 100.0100, L500.2500 ####[facility] [address] [place], [address] Calcium [Mass/Vol] 8.5 mg/dL Normal 7.6-11.0 [facility] Comment on above: Performed By: #### L 100.0100, L500.2500 ####[facility] [address] [place], [address] Chloride [Moles/Vol] 101 mmol/L Normal 98-108 [facility] Comment on above: Performed By: #### L 100.0100, L500.2500 ####[facility] [address] [place], [address] CO2 [Moles/Vol] 26.7 mmol/L Normal 21.0-32.0 [facility] Comment on above: Performed By: #### L 100.0100, L500.2500 ####[facility] [address] [place], [address] Creatinine [Mass/Vol] 1.03 mg/dL Normal 0.70-1.20 [facility] Comment on above: Performed By: #### L 100.0100, L500.2500 ####[facility] [address] [place], [address] ECRCL 53.85 ml/min Normal 50-250 [facility] Comment on above: Performed By: #### L 100.0100, L500.2500 ####[facility] [address] [place], [address] GAP 7 Normal 5-15 [facility] Comment on above: Performed By: #### L 100.0100, L500.2500 ####[facility] [address] [place], [address] GFR/1.73 sq M.predicted among non-blacks MDRD (S/P/Bld) [Vol rate/Area] 84 mL/min/{1.73_m2} Normal >60 [facility] Comment on above: Result Comment: mL/m in/1.73m2 CKD-EPI Creatinine Equation (2020) Performed By: #### L 100.0100, L500.2500 ####[facility] [address] [place], [address] Glucose [Mass/Vol] 97 mg/dL Normal 70-99 [facility] Comment on above: Performed By: #### L 100.0100, L500.2500 ####[facility] [address] [place], [address] Potassium [Moles/Vol] 3.5 mmol/L Normal 3.3-5.1 [facility] Comment on above: Performed By: #### L 100.0100, L500.2500 ####[facility] [address] [place], [address] Sodium [Moles/Vol] 135 mmol/L Normal 133-145 [facility] Comment on above: Performed By: #### L 100.0100, L500.2500 ####[facility] [address] [place], [address] Urea nitrogen [Mass/Vol] 13 mg/dL Normal 4-19 [facility] Comment on above: Performed By: #### L 100.0100, L500.2500 ####[facility] [address] [place], [address] Basophil percentageOrdered B y: Handy Royal on 03-01-2025 Basophils/100 WBC (Bld) 0.4 % 0-1 [facility] Blood manual differential co mment interpretation (narrative result)Ordered By: Handy Royal on 03-01-2025 Manual differential comment Leonard (Bld) [Interp] SCANNED [facility] CBC W/Diff, Automatedon 02-17 RED CELL MORPH NORM C+C Normal NORM C C [facility] Comment on above: Performed By: #### L 100.0100, L500.2500 ####[facility] [address] [place], [address] PLT EST MOD DEC Normal ADEQ [facility] Comment on above: Performed By: #### L 100.0100, L500.2500 ####[facility] [address] [place], [address] SMEAR COMMENT SCANNED Normal [facility] Comment on above: Performed By: #### L 100.0100, L500.2500 ####[facility] [address] [place], [address] Carbon dioxide, total [Moles /volume] in Central venous bloodOrdered By: Handy Royal on 03-01-2025 CO2 [Moles/Vol] 26.7 mmol/L 21.0-32.0 [facility] Chloride assayOrdered By: Chanell Royal on 03-01-2025 Chloride [Moles/Vol] 101 mmol/L 98-108 [facility] Discharge Instructionon 02-17 Discharge Instruction Normal [facility] Eosinophil percentageOrdered By: Handy Royal on 03-01-2025 Eosinophils/100 WBC (Bld) 4.0 % 0-5 [facility] Erythrocyte distribution wid th ratioOrdered By: Handy Royal on 03-01-2025 Erythrocyte distribution width (RBC) [Ratio] 15.0 % High 11.6-14.6 [facility] Erythrocyte distribution wid th standard deviationOrdered By: Handy Royal on 03-01-2025 Erythrocyte distribution width (RBC) [Ratio] 54.9 fl High 35.1-43.9 [facility] Erythrocyte morphology asses smentOrdered By: Handy Royal on 03-01-2025 RBC morphology finding Nom (Bld) NORM C+C NORMAL NORM C&C [facility] Glomerular filtration rate ( GFR) estimation/1.73 sq m using serum, plasma, or whole bOrdered By: Handy Royal on 03-01-2025 GFR/1.73 sq M.predicted among non-blacks MDRD (S/P/Bld) [Vol rate/Area] 84 mL/min/{1.73_m2} >60 [facility] Comment on above: mL/min/1.73m2 CKD-EP I Creatinine Equation (2020) Hematocrit Auto (Bld) [Volum e fraction]Ordered By: Handy Royal on 03-01-2025 Hematocrit (Bld) [Volume fraction] 27.7 % Low 40-54 [facility] Hemoglobin measurementOrdere d By: Handy Royal on 03-01-2025 Hemoglobin (Bld) [Mass/Vol] 9.5 g/dL Low 13.0-16.5 [facility] Immature granulocytes/100 WB C Auto (Bld)Ordered By: Handy Royal on 03-01-2025 Immature granulocytes/100 WBC (Bld) 1.200 % High 0.0-0.9 [facility] Comment on above: IG% - Immature Granu locytes (promyelocytes, myelocytes and metamyelocytes) > 1% indicates that a LEFT SHIFT is Present. MCV (mean corpuscular volume ) determinationOrdered By: Handy Royal on 03-01-2025 MCV (RBC) [Entitic vol] 99.6 fL High 80-94 [facility] Mean corpuscular hemoglobin (MCH) determinationOrdered By: Handy Royal 03-01-2025 MCH (RBC) [Entitic mass] 34.2 pg High 27.0-32.0 [facility] Mean corpuscular hemoglobin concentration (MCHC) determinationOrdered By: Handy Royal on 03-01-2025 MCHC (RBC) [Mass/Vol] 34.3 g/dL 32-36 [facility] Mean platelet volume determi nationOrdered By: Handy Royal on 03-01-2025 Platelet mean volume (Bld) [Entitic vol] 9.7 fL 6.2-12.0 [facility] Monocyte percentageOrdered B y: Handy Royal on 03-01-2025 Monocytes/100 WBC (Bld) 25.5 % High 0-10 [facility] Neutrophil percentageOrdered By: Handy Royal on 03-01-2025 Neutrophils/100 WBC (Bld) 46.6 % Low 47-70 [facility] Nucleated red blood cell per centageOrdered By: Handy Royal on 03-01-2025 Nucleated RBC/100 WBC (Bld) [Ratio] 0 % 0-5 [facility] Platelet countOrdered By: Chanell Royal on 03-01-2025 Platelets (Bld) [#/Vol] 86 10*3/uL Low 150-450 [facility] Platelet estimateOrdered By: Handy Royal on 03-01-2025 Platelets LM Ql (Bld) MOD DEC ADEQ [facility] Potassium measurement (mass/ volume)Ordered By: Handy Royal on 03-01-2025 Potassium (Unsp spec) [Mass/Vol] 3.5 mmol/L 3.3-5.1 [facility] RBC Auto (Bld) [#/Vol]Ordere d By: Handy Royal on 03-01-2025 RBC (Bld) [#/Vol] 2.78 10*6/uL Low 4.6-6.2 [facility] Serum creatinine measurement (mass/volume)Ordered By: Handy Royal on 03-01-2025 Creatinine [Mass/Vol] 1.03 mg/dL 0.70-1.20 [facility] Serum glucose measurement (m ass/volume)Ordered By: Handy Royal on 03-01-2025 Glucose [Mass/Vol] 97 mg/dL 70-99 [facility] Serum or plasma calcium jesus urement (mass/volume)Ordered By: Handy Royal on 03-01-2025 Calcium [Mass/Vol] 8.5 mg/dL 7.6-11.0 [facility] Serum or plasma urea nitroge n measurement (mass/volume)Ordered By: Handy Royal on 03-01-2025 Urea nitrogen [Mass/Vol] 13 mg/dL 4-19 [facility] [facility] Sodium levelOrdered By: Nilesh Royal on 03-01-2025 Sodium [Moles/Vol] 135 mmol/L 133-145 [facility] White blood cell (WBC) count Ordered By: Handy Royal on 03-01-2025 WBC (Bld) [#/Vol] 2.5 10*3/uL Low 4.4-11.0 [facility] Basic Metabolic Profile (BMP )on 02-28-2025 BUN/CRE 15.4 RATIO Normal 10-20 [facility] Comment on above: Performed By: #### L 500.2500, L100.0100 ####[facility] [address] [place], [address] Calcium [Mass/Vol] 8.7 mg/dL Normal 7.6-11.0 [facility] Comment on above: Performed By: #### L 500.2500, L100.0100 ####[facility] [address] [place], [address] Chloride [Moles/Vol] 105 mmol/L Normal 98-108 [facility] Comment on above: Performed By: #### L 500.2500, L100.0100 ####[facility] [address] [place], [address] CO2 [Moles/Vol] 26.0 mmol/L Normal 21.0-32.0 [facility] Comment on above: Performed By: #### L 500.2500, L100.0100 ####[facility] [address] [place], [address] Creatinine [Mass/Vol] 1.10 mg/dL Normal 0.70-1.20 [facility] Comment on above: Performed By: #### L 500.2500, L100.0100 ####[facility] [address] [place], [address] ECRCL 50.42 ml/min Normal 50-250 [facility] Comment on above: Performed By: #### L 500.2500, L100.0100 ####[facility] [address] [place], [address] GAP 8 Normal 5-15 [facility] Comment on above: Performed By: #### L 500.2500, L100.0100 ####[facility] [address] [place], [address] GFR/1.73 sq M.predicted among non-blacks MDRD (S/P/Bld) [Vol rate/Area] 77 mL/min/{1.73_m2} Normal >60 [facility] Comment on above: Result Comment: mL/m in/1.73m2 CKD-EPI Creatinine Equation (2020) Performed By: #### L 500.2500, L100.0100 ####[facility] [address] [place], [address] Glucose [Mass/Vol] 96 mg/dL Normal 70-99 [facility] Comment on above: Performed By: #### L 500.2500, L100.0100 ####[facility] [address] [place], [address] Potassium [Moles/Vol] 3.8 mmol/L Normal 3.3-5.1 [facility] Comment on above: Performed By: #### L 500.2500, L100.0100 ####[facility] [address] [place], [address] Sodium [Moles/Vol] 138 mmol/L Normal 133-145 [facility] Comment on above: Performed By: #### L 500.2500, L100.0100 ####[facility] [address] [place], [address] Urea nitrogen [Mass/Vol] 17 mg/dL Normal 4-19 [facility] Comment on above: Performed By: #### L 500.2500, L100.0100 ####[facility] [address] [place], [address] Bedside Glucoseon 02-28-2025 FINGERSTICK GLU 94 mg/dL Normal 74-106 [facility] Comment on above: Result Comment: ARNALDO GEMENT OF PATIENT CARE PER NURSING PROTOCOL Performed By: #### L 501.080 ####[facility] [address] [place], [address] FINGERSTICK GLU 119 mg/dL High 74-106 [facility] Comment on above: Result Comment: ARNALDO GEMENT OF PATIENT CARE PER NURSING PROTOCOL Performed By: #### L 501.080 ####[facility] [address] [place], [address] CBC W/Diff, Automatedon 02-17 RED CELL MORPH NORM C+C Normal NORM C C [facility] Comment on above: Performed By: #### L 500.2500, L100.0100 ####[facility] [address] [place], [address] PLT EST MOD DEC Normal ADEQ [facility] Comment on above: Performed By: #### L 500.2500, L100.0100 ####[facility] [address] [place], [address] SMEAR COMMENT SCANNED Normal [facility] Comment on above: Performed By: #### L 500.2500, L100.0100 ####[facility] [address] [place], [address] Glucose measurement at [facility] deOrdered By: Handy Royal on 02-28-2025 Glucose [Mass/Vol] 94 mg/dL 74-106 [facility] Comment on above: MANAGEMENT OF PATIEN T CARE PER NURSING PROTOCOL Basic Metabolic Profile (BMP )on 02-27-2025 BUN/CRE 17.6 RATIO Normal 10-20 [facility] Comment on above: Performed By: #### L 500.2500, L100.0100 ####[facility] [address] [place], [address] Calcium [Mass/Vol] 8.6 mg/dL Normal 7.6-11.0 [facility] Comment on above: Performed By: #### L 500.2500, L100.0100 ####[facility] [address] [place], [address] Chloride [Moles/Vol] 108 mmol/L Normal 98-108 [facility] Comment on above: Performed By: #### L 500.2500, L100.0100 ####[facility] [address] [place], [address] CO2 [Moles/Vol] 28.0 mmol/L Normal 21.0-32.0 [facility] Comment on above: Performed By: #### L 500.2500, L100.0100 ####[facility] [address] [place], [address] Creatinine [Mass/Vol] 1.43 mg/dL High 0.70-1.20 [facility] Comment on above: Performed By: #### L 500.2500, L100.0100 ####[facility] [address] [place], [address] ECRCL 38.78 ml/min Low 50-250 [facility] Comment on above: Performed By: #### L 500.2500, L100.0100 ####[facility] [address] [place], [address] GAP 7 Normal 5-15 [facility] Comment on above: Performed By: #### L 500.2500, L100.0100 ####[facility] [address] [place], [address] GFR/1.73 sq M.predicted among non-blacks MDRD (S/P/Bld) [Vol rate/Area] 56 mL/min/{1.73_m2} Low >60 [facility] Comment on above: Result Comment: mL/m in/1.73m2 CKD-EPI Creatinine Equation (2020) Performed By: #### L 500.2500, L100.0100 ####[facility] [address] [place], [address] Glucose [Mass/Vol] 106 mg/dL High 70-99 [facility] Comment on above: Performed By: #### L 500.2500, L100.0100 ####[facility] [address] [place], [address] Potassium [Moles/Vol] 4.3 mmol/L Normal 3.3-5.1 [facility] Comment on above: Performed By: #### L 500.2500, L100.0100 ####[facility] [address] [place], [address] Sodium [Moles/Vol] 143 mmol/L Normal 133-145 [facility] Comment on above: Performed By: #### L 500.2500, L100.0100 ####[facility] [address] [place], [address] Urea nitrogen [Mass/Vol] 25 mg/dL High 4-19 [facility] Comment on above: Performed By: #### L 500.2500, L100.0100 ####[facility] [address] [place], [address] CBC W/Diff, Automatedon 05-1 PLT EST SLT DEC Normal ADEQ [facility] Comment on above: Performed By: #### L 500.2500, L100.0100 ####[facility] [address] [place], [address] Basic Metabolic Profile (BMP )on 02-26-2025 BUN/CRE 14.9 RATIO Normal 10-20 [facility] Comment on above: Performed By: #### L 500.2500, L100.0100 ####[facility] [address] [place], [address] Calcium [Mass/Vol] 8.7 mg/dL Normal 7.6-11.0 [facility] Comment on above: Performed By: #### L 500.2500, L100.0100 ####[facility] [address] [place], [address] Chloride [Moles/Vol] 104 mmol/L Normal 98-108 [facility] Comment on above: Performed By: #### L 500.2500, L100.0100 ####[facility] [address] [place], [address] CO2 [Moles/Vol] 28.1 mmol/L Normal 21.0-32.0 [facility] Comment on above: Performed By: #### L 500.2500, L100.0100 ####[facility] [address] [place], [address] Creatinine [Mass/Vol] 1.67 mg/dL High 0.70-1.20 [facility] Comment on above: Performed By: #### L 500.2500, L100.0100 ####[facility] [address] [place], [address] ECRCL 33.21 ml/min Low 50-250 [facility] Comment on above: Performed By: #### L 500.2500, L100.0100 ####[facility] [address] [place], [address] GAP 11 Normal 5-15 [facility] Comment on above: Performed By: #### L 500.2500, L100.0100 ####[facility] [address] [place], [address] GFR/1.73 sq M.predicted among non-blacks MDRD (S/P/Bld) [Vol rate/Area] 47 mL/min/{1.73_m2} Low >60 [facility] Comment on above: Result Comment: mL/m in/1.73m2 CKD-EPI Creatinine Equation (2020) Performed By: #### L 500.2500, L100.0100 ####[facility] [address] [place], [address] Glucose [Mass/Vol] 158 mg/dL High 70-99 [facility] Comment on above: Performed By: #### L 500.2500, L100.0100 ####[facility] [address] [place], [address] Potassium [Moles/Vol] 3.6 mmol/L Normal 3.3-5.1 [facility] Comment on above: Performed By: #### L 500.2500, L100.0100 ####[facility] [address] [place], [address] Sodium [Moles/Vol] 143 mmol/L Normal 133-145 [facility] Comment on above: Performed By: #### L 500.2500, L100.0100 ####[facility] [address] [place], [address] Urea nitrogen [Mass/Vol] 25 mg/dL High 4-19 [facility] Comment on above: Performed By: #### L 500.2500, L100.0100 ####[facility] [address] [place], [address] CBC W/Diff, Automatedon 05-1 0-2024 Absolute Lymph 0.20 X10 3/uL Low 0.83-4.51 [facility] Comment on above: Performed By: #### L 500.2500, L100.0100 ####[facility] [address] [place], [address] Absolute Neut 5.6 X10 3/uL Normal 2.0-7.7 [facility] Comment on above: Performed By: #### L 500.2500, L100.0100 ####[facility] [address] [place], [address] Basophils/100 WBC (Bld) 0.2 % Normal 0-1 [facility] Comment on above: Performed By: #### L 500.2500, L100.0100 ####[facility] [address] [place], [address] Eosinophils/100 WBC (Bld) 0.0 % Normal 0-5 [facility] Comment on above: Performed By: #### L 500.2500, L100.0100 ####[facility] [address] [place], [address] Erythrocyte distribution width (RBC) [Ratio] 16.0 % High 11.6-14.6 [facility] Comment on above: Performed By: #### L 500.2500, L100.0100 ####[facility] [address] [place], [address] Hematocrit (Bld) [Volume fraction] 33.5 % Low 40-54 [facility] Comment on above: Performed By: #### L 500.2500, L100.0100 ####[facility] [address] [place], [address] Hemoglobin (Bld) [Mass/Vol] 11.5 g/dL Low 13.0-16.5 [facility] Comment on above: Performed By: #### L 500.2500, L100.0100 ####[facility] [address] [place], [address] IG% 0.200 Normal 0.0-0.9 [facility] Comment on above: Result Comment: IG% - Immature Granulocytes (promyelocytes, myelocytes andmetamyelocytes) > 1% indicates that a LEFT SHIFT is Present. Performed By: #### L 500.2500, L100.0100 ####[facility] [address] [place], [address] Lymphocytes/100 WBC (Bld) 3.2 % Low 19-41 [facility] Comment on above: Performed By: #### L 500.2500, L100.0100 ####[facility] [address] [place], [address] MCH (RBC) [Entitic mass] 33.7 pg High 27.0-32.0 [facility] Comment on above: Performed By: #### L 500.2500, L100.0100 ####[facility] [address] [place], [address] MCHC (RBC) [Mass/Vol] 34.3 g/dL Normal 32-36 [facility] Comment on above: Performed By: #### L 500.2500, L100.0100 ####[facility] [address] [place], [address] MCV (RBC) [Entitic vol] 98.2 fL High 80-94 [facility] Comment on above: Performed By: #### L 500.2500, L100.0100 ####[facility] [address] [place], [address] Monocytes/100 WBC (Bld) 8.7 % Normal 0-10 [facility] Comment on above: Performed By: #### L 500.2500, L100.0100 ####[facility] [address] [place], [address] Neutrophils/100 WBC (Bld) 87.7 % High 47-70 [facility] Comment on above: Performed By: #### L 500.2500, L100.0100 ####[facility] [address] [place], [address] Nucleated RBC (Bld) [#/Vol] 0 10*3/uL Normal 0-5 [facility] Comment on above: Performed By: #### L 500.2500, L100.0100 ####[facility] [address] [place], [address] Platelet mean volume (Bld) [Entitic vol] 9.7 fL Normal 6.2-12.0 [facility] Comment on above: Performed By: #### L 500.2500, L100.0100 ####[facility] [address] [place], [address] Platelets (Bld) [#/Vol] 102 10*3/uL Low 150-450 [facility] Comment on above: Performed By: #### L 500.2500, L100.0100 ####[facility] [address] [place], [address] RBC (Bld) [#/Vol] 3.41 10*6/uL Low 4.6-6.2 [facility] Comment on above: Performed By: #### L 500.2500, L100.0100 ####[facility] [address] [place], [address] RDW SD 55.8 fl High 35.1-43.9 [facility] Comment on above: Performed By: #### L 500.2500, L100.0100 ####[facility] [address] [place], [address] WBC (Bld) [#/Vol] 6.3 10*3/uL Normal 4.4-11.0 [facility] Comment on above: Performed By: #### L 500.2500, L100.0100 ####[facility] [address] [place], [address] Abdomen Single View (Portabl e)on 02-25-2025 Abdomen Single View (Portable) Normal [facility] Basic Metabolic Profile (BMP )on 02-25-2025 BUN/CRE 13.7 RATIO Normal 10-20 [facility] Comment on above: Performed By: #### L 100.0100, L500.2500 ####[facility] [address] [place], [address] Calcium [Mass/Vol] 9.6 mg/dL Normal 7.6-11.0 [facility] Comment on above: Performed By: #### L 100.0100, L500.2500 ####[facility] [address] [place], [address] Chloride [Moles/Vol] 99 mmol/L Normal 98-108 [facility] Comment on above: Performed By: #### L 100.0100, L500.2500 ####[facility] [address] [place], [address] CO2 [Moles/Vol] 29.5 mmol/L Normal 21.0-32.0 [facility] Comment on above: Performed By: #### L 100.0100, L500.2500 ####[facility] [address] [place], [address] Creatinine [Mass/Vol] 1.51 mg/dL High 0.70-1.20 [facility] Comment on above: Performed By: #### L 100.0100, L500.2500 ####[facility] [address] [place], [address] ECRCL 36.73 ml/min Low 50-250 [facility] Comment on above: Performed By: #### L 100.0100, L500.2500 ####[facility] [address] [place], [address] GAP 14 Normal 5-15 [facility] Comment on above: Performed By: #### L 100.0100, L500.2500 ####[facility] [address] [place], [address] GFR/1.73 sq M.predicted among non-blacks MDRD (S/P/Bld) [Vol rate/Area] 53 mL/min/{1.73_m2} Low >60 [facility] Comment on above: Result Comment: mL/m in/1.73m2 CKD-EPI Creatinine Equation (2020) Performed By: #### L 100.0100, L500.2500 ####[facility] [address] [place], [address] Glucose [Mass/Vol] 121 mg/dL High 70-99 [facility] Comment on above: Performed By: #### L 100.0100, L500.2500 ####[facility] [address] [place], [address] Potassium [Moles/Vol] 3.2 mmol/L Low 3.3-5.1 [facility] Comment on above: Performed By: #### L 100.0100, L500.2500 ####[facility] [address] [place], [address] Sodium [Moles/Vol] 142 mmol/L Normal 133-145 [facility] Comment on above: Performed By: #### L 100.0100, L500.2500 ####[facility] [address] [place], [address] Urea nitrogen [Mass/Vol] 21 mg/dL High 4-19 [facility] Comment on above: Performed By: #### L 100.0100, L500.2500 ####[facility] [address] [place], [address] CBC W/Diff, Automatedon 05-0 9-2024 Absolute Lymph 0.51 X10 3/uL Low 0.83-4.51 [facility] Comment on above: Performed By: #### L 100.0100, L500.2500 ####[facility] [address] [place], [address] Absolute Neut 6.7 X10 3/uL Normal 2.0-7.7 [facility] Comment on above: Performed By: #### L 100.0100, L500.2500 ####[facility] [address] [place], [address] Basophils/100 WBC (Bld) 0.4 % Normal 0-1 [facility] Comment on above: Performed By: #### L 100.0100, L500.2500 ####[facility] [address] [place], [address] Eosinophils/100 WBC (Bld) 0.1 % Normal 0-5 [facility] Comment on above: Performed By: #### L 100.0100, L500.2500 ####[facility] [address] [place], [address] Erythrocyte distribution width (RBC) [Ratio] 15.2 % High 11.6-14.6 [facility] Comment on above: Performed By: #### L 100.0100, L500.2500 ####[facility] [address] [place], [address] Hematocrit (Bld) [Volume fraction] 35.7 % Low 40-54 [facility] Comment on above: Performed By: #### L 100.0100, L500.2500 ####[facility] [address] [place], [address] Hemoglobin (Bld) [Mass/Vol] 12.5 g/dL Low 13.0-16.5 [facility] Comment on above: Performed By: #### L 100.0100, L500.2500 ####[facility] [address] [place], [address] IG% 0.500 Normal 0.0-0.9 [facility] Comment on above: Result Comment: IG% - Immature Granulocytes (promyelocytes, myelocytes andmetamyelocytes) > 1% indicates that a LEFT SHIFT is Present. Performed By: #### L 100.0100, L500.2500 ####[facility] [address] [place], [address] Lymphocytes/100 WBC (Bld) 6.2 % Low 19-41 [facility] Comment on above: Performed By: #### L 100.0100, L500.2500 ####[facility] [address] [place], [address] MCH (RBC) [Entitic mass] 33.8 pg High 27.0-32.0 [facility] Comment on above: Performed By: #### L 100.0100, L500.2500 ####[facility] [address] [place], [address] MCHC (RBC) [Mass/Vol] 35.0 g/dL Normal 32-36 [facility] Comment on above: Performed By: #### L 100.0100, L500.2500 ####[facility] [address] [place], [address] MCV (RBC) [Entitic vol] 96.5 fL High 80-94 [facility] Comment on above: Performed By: #### L 100.0100, L500.2500 ####[facility] [address] [place], [address] Monocytes/100 WBC (Bld) 11.9 % High 0-10 [facility] Comment on above: Performed By: #### L 100.0100, L500.2500 ####[facility] [address] [place], [address] Neutrophils/100 WBC (Bld) 80.9 % High 47-70 [facility] Comment on above: Performed By: #### L 100.0100, L500.2500 ####[facility] [address] [place], [id number] Nucleated RBC (Bld) [#/Vol] 0 10*3/uL Normal 0-5 [facility] Comment on above: Performed By: #### L 100.0100, L500.2500 ####[facility] [address] [place], [id number] Platelet mean volume (Bld) [Entitic vol] 9.4 fL Normal 6.2-12.0 [facility] Comment on above: Performed By: #### L 100.0100, L500.2500 ####[facility] [address] [place], [id number] Platelets (Bld) [#/Vol] 113 10*3/uL Low 150-450 [facility] Comment on above: Performed By: #### L 100.0100, L500.2500 ####[facility] [address] [place], [address] RBC (Bld) [#/Vol] 3.70 10*6/uL Low 4.6-6.2 [facility] Comment on above: Performed By: #### L 100.0100, L500.2500 ####[facility] [address] [place], [address] RDW SD 52.5 fl High 35.1-43.9 [facility] Comment on above: Performed By: #### L 100.0100, L500.2500 ####[facility] [address] [place], [id number] WBC (Bld) [#/Vol] 8.3 10*3/uL Normal 4.4-11.0 [facility] Comment on above: Performed By: #### L 100.0100, L500.2500 ####[facility] [address] [place], [address] MR/POSTOP.ANEon 02-25-2025 MR/POSTOP.ANE Normal [facility] MR/WPASVQZQ2lt 02-25-2025 MR/POSTOPAN2 Normal [facility] Operative Reporton Operative Report Normal [facility] Small Bowel Series Onlyon Small Bowel Series Only Normal [facility] Abdomen Single View (Portabl e)on 02-24-2025 Abdomen Single View (Portable) Normal [facility] Abdomen/Pel W ORAL Cont Only on 02-24-2025 Abdomen/Pel W ORAL Cont Only Normal [facility] Absolute lymphocyte countOrd ered By: Gwyn Esquivel on 02-24-2025 Lymphocytes Auto (Unsp spec) [#/Vol] 0.35 10*3/uL Low 0.83-4.51 [facility] Absolute neutrophil countOrd ered By: Gwyn Esquivel on 02-24-2025 Neutrophils (Bld) [#/Vol] 6.6 10*3/uL 2.0-7.7 [facility] Anion gap in Serum or Plasma Ordered By: Gwyn Esquivel on 02-24-2025 Anion gap [Moles/Vol] 12 mmol/L 5-15 [facility] Automated lymphocyte count a s percentage of total leukocytesOrdered By: Gwyn Esquivel on 02-24-2025 Lymphocytes/100 WBC Auto (Unsp spec) 4.5 % Low 19-41 [facility] BUN/creatinine ratioOrdered By: Gwyn Esquivel on 02-24-2025 Urea nitrogen/Creatinine [Mass ratio] 12.2 mg/mg 10-20 [facility] Basophil percentageOrdered B y: Gwyn Esquivel on 02-24-2025 Basophils/100 WBC (Bld) 0.4 % 0-1 [facility] Bilirubin Test strip Ql (U)O rdered By: Handy Royal on 02-24-2025 Bilirubin Ql (U) Negative Negative [facility] Bilirubin, totalOrdered By: Gwyn Esquivel on 02-24-2025 Bilirubin [Mass/Vol] 0.72 mg/dL 0.00-1.30 [facility] CBC W/Diff, Automatedon Absolute Lymph 0.35 X10 3/uL Low 0.83-4.51 [facility] Comment on above: Performed By: #### L 500.4050, L501.2450, L100.0100 ####[facility] [address] [place], [address] Absolute Neut 6.6 X10 3/uL Normal 2.0-7.7 [facility] Comment on above: Performed By: #### L 500.4050, L501.2450, L100.0100 ####[facility] [address] [place], [address] Basophils/100 WBC (Bld) 0.4 % Normal 0-1 [facility] Comment on above: Performed By: #### L 500.4050, L501.2450, L100.0100 ####[facility] [address] [place], [address] Eosinophils/100 WBC (Bld) 0.1 % Normal 0-5 [facility] Comment on above: Performed By: #### L 500.4050, L501.2450, L100.0100 ####[facility] [address] [place], [address] Erythrocyte distribution width (RBC) [Ratio] 14.9 % High 11.6-14.6 [facility] Comment on above: Performed By: #### L 500.4050, L501.2450, L100.0100 ####[facility] [address] [place], [address] Hematocrit (Bld) [Volume fraction] 35.1 % Low 40-54 [facility] Comment on above: Performed By: #### L 500.4050, L501.2450, L100.0100 ####[facility] [address] [place], [address] Hemoglobin (Bld) [Mass/Vol] 12.6 g/dL Low 13.0-16.5 [facility] Comment on above: Performed By: #### L 500.4050, L501.2450, L100.0100 ####[facility] [address] [place], [address] IG% 0.400 Normal 0.0-0.9 [facility] Comment on above: Result Comment: IG% - Immature Granulocytes (promyelocytes, myelocytes andmetamyelocytes) > 1% indicates that a LEFT SHIFT is Present. Performed By: #### L 500.4050, L501.2450, L100.0100 ####[facility] [address] [place], [address] Lymphocytes/100 WBC (Bld) 4.5 % Low 19-41 [facility] Comment on above: Performed By: #### L 500.4050, L501.2450, L100.0100 ####[facility] [address] [place], [address] MCH (RBC) [Entitic mass] 33.4 pg High 27.0-32.0 [facility] Comment on above: Performed By: #### L 500.4050, L501.2450, L100.0100 ####[facility] [address] [place], [address] MCHC (RBC) [Mass/Vol] 35.9 g/dL Normal 32-36 [facility] Comment on above: Performed By: #### L 500.4050, L501.2450, L100.0100 ####[facility] [address] [place], [address] MCV (RBC) [Entitic vol] 93.1 fL Normal 80-94 [facility] Comment on above: Performed By: #### L 500.4050, L501.2450, L100.0100 ####[facility] [address] [place], [address] Monocytes/100 WBC (Bld) 9.9 % Normal 0-10 [facility] Comment on above: Performed By: #### L 500.4050, L501.2450, L100.0100 ####[facility] [address] [place], [id number] Neutrophils/100 WBC (Bld) 84.7 % High 47-70 [facility] Comment on above: Performed By: #### L 500.4050, L501.2450, L100.0100 ####[facility] [address] [place], [id number] Nucleated RBC (Bld) [#/Vol] 0 10*3/uL Normal 0-5 [facility] Comment on above: Performed By: #### L 500.4050, L501.2450, L100.0100 ####[facility] [address] [place], [address] Platelet mean volume (Bld) [Entitic vol] 9.5 fL Normal 6.2-12.0 [facility] Comment on above: Performed By: #### L 500.4050, L501.2450, L100.0100 ####[facility] [address] [place], [address] Platelets (Bld) [#/Vol] 111 10*3/uL Low 150-450 [facility] Comment on above: Performed By: #### L 500.4050, L501.2450, L100.0100 ####[facility] [address] [place], [address] RBC (Bld) [#/Vol] 3.77 10*6/uL Low 4.6-6.2 [facility] Comment on above: Performed By: #### L 500.4050, L501.2450, L100.0100 ####[facility] [address] [place], [id number] RDW SD 49.7 fl High 35.1-43.9 [facility] Comment on above: Performed By: #### L 500.4050, L501.2450, L100.0100 ####[facility] [address] [place], [address] WBC (Bld) [#/Vol] 7.8 10*3/uL Normal 4.4-11.0 [facility] Comment on above: Performed By: #### L 500.4050, L501.2450, L100.0100 ####[facility] [address] [place], [address] Calcium oxalate crystals det ection in urine sediment by light microscopyOrdered By: Handy Royal on 02-24-2025 Calcium oxalate crystals LM Ql (Urine sed) 1+ /hpf [facility] Carbon dioxide, total [Moles /volume] in Central venous bloodOrdered By: Gwyn Esquivel on 02-24-2025 CO2 [Moles/Vol] 27.3 mmol/L 21.0-32.0 [facility] Chloride assayOrdered By: Ben Esquivel on 02-24-2025 Chloride [Moles/Vol] 98 mmol/L 98-108 [facility] Comprehensive Metabolic Prof ilon 02-24-2025 Albumin [Mass/Vol] 3.8 g/dL Normal 3.5-5.0 [facility] Comment on above: Performed By: #### L 500.4050, L501.2450, L100.0100 ####[facility] [address] [place], [address] Albumin/Globulin [Mass ratio] 1.1 {ratio} Normal 0.9-2.4 [facility] Comment on above: Performed By: #### L 500.4050, L501.2450, L100.0100 ####[facility] [address] [place], [address] ALK PHOS 128 U/L Normal 40-129 [facility] Comment on above: Performed By: #### L 500.4050, L501.2450, L100.0100 ####[facility] [address] [place], [id number] ALT [Catalytic activity/Vol] 16 U/L Normal <=46 [facility] Comment on above: Performed By: #### L 500.4050, L501.2450, L100.0100 ####[facility] [address] [place], [id number] AST [Catalytic activity/Vol] 35 U/L Normal <=37 [facility] Comment on above: Performed By: #### L 500.4050, L501.2450, L100.0100 ####[facility] [address] [place], [id number] Bilirubin [Mass/Vol] 0.72 mg/dL Normal 0.00-1.30 [facility] Comment on above: Performed By: #### L 500.4050, L501.2450, L100.0100 ####[facility] [address] [place], [id number] BUN/CRE 12.2 RATIO Normal 10-20 [facility] Comment on above: Performed By: #### L 500.4050, L501.2450, L100.0100 ####[facility] [address] [place], [id number] Calcium [Mass/Vol] 9.8 mg/dL Normal 7.6-11.0 [facility] Comment on above: Performed By: #### L 500.4050, L501.2450, L100.0100 ####[facility] [address] [place], [id number] Chloride [Moles/Vol] 98 mmol/L Normal 98-108 [facility] Comment on above: Performed By: #### L 500.4050, L501.2450, L100.0100 ####[facility] [address] [place], [id number] CO2 [Moles/Vol] 27.3 mmol/L Normal 21.0-32.0 [facility] Comment on above: Performed By: #### L 500.4050, L501.2450, L100.0100 ####[facility] [address] [place], [id number] Creatinine [Mass/Vol] 1.39 mg/dL High 0.70-1.20 [facility] Comment on above: Performed By: #### L 500.4050, L501.2450, L100.0100 ####[facility] [address] [place], [id number] ECRCL 39.01 ml/min Low 50-250 [facility] Comment on above: Performed By: #### L 500.4050, L501.2450, L100.0100 ####[facility] [address] [place], [address] GAP 12 Normal 5-15 [facility] Comment on above: Performed By: #### L 500.4050, L501.2450, L100.0100 ####[facility] [address] [place], [address] GFR/1.73 sq M.predicted among non-blacks MDRD (S/P/Bld) [Vol rate/Area] 58 mL/min/{1.73_m2} Low >60 [facility] Comment on above: Result Comment: mL/m in/1.73m2 CKD-EPI Creatinine Equation (2020) Performed By: #### L 500.4050, L501.2450, L100.0100 ####[facility] [address] [place], [id number] Globulin (S) [Mass/Vol] 3.3 g/dL Normal 2.2-4.2 [facility] Comment on above: Performed By: #### L 500.4050, L501.2450, L100.0100 ####[facility] [address] [place], [id number] Glucose [Mass/Vol] 112 mg/dL High 70-99 [facility] Comment on above: Performed By: #### L 500.4050, L501.2450, L100.0100 ####[facility] [address] [place], [address] Potassium [Moles/Vol] 3.3 mmol/L Normal 3.3-5.1 [facility] Comment on above: Performed By: #### L 500.4050, L501.2450, L100.0100 ####[facility] [address] [place], [id number] Sodium [Moles/Vol] 138 mmol/L Normal 133-145 [facility] Comment on above: Performed By: #### L 500.4050, L501.2450, L100.0100 ####[facility] [address] [place], [address] T PROT 7.1 g/dL Normal 5.9-8.4 [facility] Comment on above: Performed By: #### L 500.4050, L501.2450, L100.0100 ####[facility] [address] [place], [address] Urea nitrogen [Mass/Vol] 17 mg/dL Normal 4-19 [facility] Comment on above: Performed By: #### L 500.4050, L501.2450, L100.0100 ####[facility] [address] [place], [address] Consultation - Surgicalon Consultation - Surgical Normal [facility] Emergency Department Summary on 02-24-2025 Emergency Department Summary Normal [facility] Eosinophil percentageOrdered By: Gwyn Esquivel on 02-24-2025 Eosinophils/100 WBC (Bld) 0.1 % 0-5 [facility] Erythrocyte distribution wid th ratioOrdered By: Gwyn Esquivel on 02-24-2025 Erythrocyte distribution width (RBC) [Ratio] 14.9 % High 11.6-14.6 [facility] Erythrocyte distribution wid th standard deviationOrdered By: Gwyn Esquivel on 02-24-2025 Erythrocyte distribution width (RBC) [Ratio] 49.7 fl High 35.1-43.9 [facility] Glomerular filtration rate ( GFR) estimation/1.73 sq m using serum, plasma, or whole bOrdered By: Gwyn Esquivel on 02-24-2025 GFR/1.73 sq M.predicted among non-blacks MDRD (S/P/Bld) [Vol rate/Area] 58 mL/min/{1.73_m2} Low >60 [facility] Comment on above: mL/min/1.73m2 CKD-EP I Creatinine Equation (2020) H AND P Exam - Hospitaliston 02-24-2025 H&P Exam - Hospitalist Normal [facility] Hematocrit Auto (Bld) [Volum e fraction]Ordered By: Gwyn Esquivel on 02-24-2025 Hematocrit (Bld) [Volume fraction] 35.1 % Low 40-54 [facility] Hemoglobin measurementOrdere d By: Gwyn Esquivel on 02-24-2025 Hemoglobin (Bld) [Mass/Vol] 12.6 g/dL Low 13.0-16.5 [facility] Immature granulocytes/100 WB C Auto (Bld)Ordered By: Gwyn Esquivel on 02-24-2025 Immature granulocytes/100 WBC (Bld) 0.400 % 0.0-0.9 [facility] Comment on above: IG% - Immature Granu locytes (promyelocytes, myelocytes and metamyelocytes) > 1% indicates that a LEFT SHIFT is Present. Ketones Test strip Ql (U)Ord ered By: Handy Royal on 02-24-2025 Ketones Ql (U) 15 mg/dl High Negative [facility] Laboratory - Chemistry and C hemistry - challengeOrdered By: Gwyn Esquivel on 02-24-2025 AST [Catalytic activity/Vol] 35 U/L <38 [facility] Lipaseon 02-24-2025 Lipase [Catalytic activity/Vol] 109 U/L High 13-75 [facility] Comment on above: Result Comment: Sofie flaherty note:LIPASE revised reference range effective 23.New Lipase methodology. Expected to produce lower valuesthan the previous assay method.NEW Reference Range: 13 - 75 U/L Performed By: #### L 500.4050, L501.2450, L100.0100 ####[facility] [address] [place], [place], [id number] Lipase measurementOrdered By : Gwyn Esquivel on 02-24-2025 Lipase [Catalytic activity/Vol] 109 U/L High 13-75 [facility] Comment on above: Please note:LIPASE r evised reference range effective 23. New Lipase methodology. Expected to produce lower values than the previous assay method. NEW Reference Range: 13 - 75 U/L MCV (mean corpuscular volume ) determinationOrdered By: Gwyn Esquivel on 02-24-2025 MCV (RBC) [Entitic vol] 93.1 fL 80-94 [facility] Magnesiumon 02-24-2025 Magnesium [Mass/Vol] 2.1 mg/dL Normal 1.5-2.2 [facility] Comment on above: Performed By: #### L 501.2300, L501.5200 ####[facility] [address] [place], [place], [id number] Magnesium measurement (mass/ volume)Ordered By: Handy Royal on 02-24-2025 Magnesium (Unsp spec) [Mass/Vol] 2.1 mg/dL 1.5-2.2 [facility] Mean corpuscular hemoglobin (MCH) determinationOrdered By: Gwyn Esquivel on 02-24-2025 MCH (RBC) [Entitic mass] 33.4 pg High 27.0-32.0 [facility] Mean corpuscular hemoglobin concentration (MCHC) determinationOrdered By: Gwyn Esquivel on 02-24-2025 MCHC (RBC) [Mass/Vol] 35.9 g/dL 32-36 [facility] Mean platelet volume determi nationOrdered By: Gwyn Esquivel on 02-24-2025 Platelet mean volume (Bld) [Entitic vol] 9.5 fL 6.2-12.0 [facility] Microscopic analysis of urin e for red blood cells (RBC)Ordered By: Handy Royal on 02-24-2025 Microscopic analysis of urine for red blood cells (RBC) 25-50 SEEN /hpf 0-5 [facility] Monocyte percentageOrdered B y: Gwyn Esquivel on 02-24-2025 Monocytes/100 WBC (Bld) 9.9 % 0-10 [facility] Mucus LM Ql (Urine sed)Order ed By: Handy Royal on 02-24-2025 Mucus Ql (Urine sed) 0 SEEN /hpf [facility] Neutrophil percentageOrdered By: Gwyn Esquivel on 02-24-2025 Neutrophils/100 WBC (Bld) 84.7 % High 47-70 [facility] Nitrite Test strip Ql (U)Ord ered By: Handy Royal on 02-24-2025 Nitrite Ql (U) Negative Negative [facility] Nucleated red blood cell per centageOrdered By: Gwyn Esquivel on 02-24-2025 Nucleated RBC/100 WBC (Bld) [Ratio] 0 % 0-5 [facility] Phosphoruson 02-24-2025 Phosphate [Mass/Vol] 2.7 mg/dL Normal 2.7-4.5 [facility] Comment on above: Performed By: #### L 501.2300, L501.5200 ####[facility] [address], [place], [id number] Platelet countOrdered By: Ben Esquivel on 02-24-2025 Platelets (Bld) [#/Vol] 111 10*3/uL Low 150-450 [facility] Potassium measurement (mass/ volume)Ordered By: Gwyn Esquivel on 02-24-2025 Potassium (Unsp spec) [Mass/Vol] 3.3 mmol/L 3.3-5.1 [facility] Protein Test strip Ql (U)Ord ered By: Handy Royal on 02-24-2025 Protein Ql (U) 500 mg/dl High Negative [facility] RBC Auto (Bld) [#/Vol]Ordere d By: Gwyn Esquivel on 02-24-2025 RBC (Bld) [#/Vol] 3.77 10*6/uL Low 4.6-6.2 [facility] Serum creatinine measurement (mass/volume)Ordered By: Gwyn Esquivel on 02-24-2025 Creatinine [Mass/Vol] 1.39 mg/dL High 0.70-1.20 [facility] Serum globulin measurementOr dered By: Gwyn Esquivel on 02-24-2025 Globulin (S) [Mass/Vol] 3.3 g/dL 2.2-4.2 [facility] Serum glucose measurement (m ass/volume)Ordered By: Gwyn Esquivel on 02-24-2025 Glucose [Mass/Vol] 112 mg/dL High 70-99 [facility] Serum or plasma alanine galindo otransferase (ALT) measurementOrdered By: Gwyn Esquivel on 02-24-2025 ALT [Catalytic activity/Vol] 16 U/L <47 [facility] Serum or plasma albumin jesus urement (mass/volume)Ordered By: Gwyn Esquivel on 02-24-2025 Albumin [Mass/Vol] 3.8 g/dL 3.5-5.0 [facility] Serum or plasma albumin/glob ulin mass ratioOrdered By: Gwyn Esquivel on 02-24-2025 Albumin/Globulin [Mass ratio] 1.1 {ratio} 0.9-2.4 [facility] Serum or plasma alkaline cesar sphatase measurementOrdered By: Gwyn Esquivel on 02-24-2025 ALP [Catalytic activity/Vol] 128 U/L 40-129 [facility] Serum or plasma calcium jesus urement (mass/volume)Ordered By: Gwyn Esquivel on 02-24-2025 Calcium [Mass/Vol] 9.8 mg/dL 7.6-11.0 [facility] Serum or plasma urea nitroge n measurement (mass/volume)Ordered By: Gwyn Esquivel on 02-24-2025 Urea nitrogen [Mass/Vol] 17 mg/dL 4-19 [facility] Sodium levelOrdered By: Gwyn Esquivel on 02-24-2025 Sodium [Moles/Vol] 138 mmol/L 133-145 [facility] Squamous epithelial cells de tection in urine sediment by light microscopyOrdered By: Handy Royal on 02-24-2025 Epithelial cells.squamous LM Ql (Urine sed) 0 SEEN /hpf 0-5 [facility] Total proteinOrdered By: Trip Esquivel on 02-24-2025 Protein [Mass/Vol] 7.1 g/dL 5.9-8.4 [facility] Urinalysis, Completeon 02-24 BACTERIA 2+ /hpf Normal None Seen [facility] Comment on above: Order Comment: Micro scopic field is filled. Other elements may beobscured.CLEAN CATCH Performed By: #### L 400.0001 ####[facility] [address] [facility] [address] [place] OX CRYSTAL 1+ /hpf Normal [facility] Comment on above: Order Comment: Micro scopic field is filled. Other elements may beobscured.CLEAN CATCH Performed By: #### L 400.0001 ####[facility] [address] [place], [address] RBC 25-50 SEEN Normal 0-[address] [place] [address] Comment on above: Order Comment: Micro scopic field is filled. Other elements may beobscured.CLEAN CATCH Performed By: #### L 400.0001 ####[facility] [address] [place], [address] WBC >100 SEEN Normal 0-[address] [place] [address] Comment on above: Order Comment: Micro scopic field is filled. Other elements may beobscured.CLEAN CATCH Result Comment: Micr oscopic field is filled. Other elements may beobscured. Performed By: #### L 400.0001 ####[facility] [address] [place], [address] EPI,SQUAMOUS 0 SEEN Normal 0-5 [facility] Comment on above: Order Comment: Micro scopic field is filled. Other elements may beobscured.CLEAN CATCH Performed By: #### L 400.0001 ####[facility] [address] [place], [address] Mucus Ql (Urine sed) 0 SEEN Normal [facility] Comment on above: Order Comment: Micro scopic field is filled. Other elements may beobscured.CLEAN CATCH Performed By: #### L 400.0001 ####[facility] [address] [place], [address] Urine clarityOrdered By: Nico Royal on 02-24-2025 Clarity (U) Turbid Clear [facility] Urine color determinationOrd ered By: Handy Royal on 02-24-2025 Color (U) Yellow Yellow [facility] Urine glucose detectionOrder ed By: Handy Royal on 02-24-2025 Glucose Ql (U) Normal mg/dl Normal [facility] Urine leukocyte esterase det ection by dipstickOrdered By: Handy Royal on 02-24-2025 Leukocyte esterase Test strip Ql (U) 500 /ul High Negative [facility] Urine pHOrdered By: Handy Royal on 02-24-2025 pH (U) 6.0 [pH] 5.0 - 8.0 [facility] Urine sediment bacteria coun t by microscopy (number/high power field)Ordered By: Handy Royal on 02-24-2025 Bacteria LM.HPF (Urine sed) [#/Area] 2 /[HPF] None Seen [facility] Urine specific gravity measu rementOrdered By: Handy Royal on 02-24-2025 Specific gravity (U) [Rel density] 1.025 1.002-1.03 0 [facility] Urine urobilinogen measureme ntOrdered By: Handy Royal on 02-24-2025 Urobilinogen Ql (U) Normal mg/dl Normal [facility] White blood cell (WBC) count Ordered By: Gwyn Esquivel on 02-24-2025 WBC (Bld) [#/Vol] 7.8 10*3/uL 4.4-11.0 [facility] White blood cell countOrdere d By: Handy Royal on 02-24-2025 White blood cell count >100 SEEN /hpf 0-5 [facility] Comment on above: Microscopic field is filled. Other elements may be obscured. Urine Cultureon 02-16-2025 URC Normal [facility] Comment on above: Performed By: #### L 400.0001, M100.2200 ####[facility] [address] [place], [place], [id number] Performed By: #### M 100.2200, L400.0001 ####[facility] [address] [place], [place], [id number] Carcinoembryonic Antigenon 0 02-15-2025 CEA 2.9 ng/mL Normal 0.0-4.7 [facility] Comment on above: Order Comment: ADD O N FROM EARLIER TODAY Result Comment: Nons mokers <3.9 Smokers <5.6[employer] Electrochemiluminescence Immunoassay(ECLIA)Values obtained with different assay methods or kitscannot be used interchangeably. Results cannot beinterpreted as absolute evidence of the presence orabsence of malignant disease.Performed at: [facility] [employer] [id number] Director: Javid Diehl PhD, Phone: [phone] Performed By: #### L 6290.0607 ####[facility] [address] [place], [place], [id number] Absolute lymphocyte countOrd ered By: Guy Ho on 02-14-2025 Lymphocytes Auto (Unsp spec) [#/Vol] 0.45 10*3/uL Low 0.83-4.51 [facility] Absolute neutrophil countOrd ered By: Guy Ho on 02-14-2025 Neutrophils (Bld) [#/Vol] 3.1 10*3/uL 2.0-7.7 [facility] Anion gap in Serum or Plasma Ordered By: Guy Ho on 02-14-2025 Anion gap [Moles/Vol] 9 mmol/L 5-15 [facility] Automated lymphocyte count a s percentage of total leukocytesOrdered By: Guy Ho on 02-14-2025 Lymphocytes/100 WBC Auto (Unsp spec) 9.5 % Low 19-41 [facility] BUN/creatinine ratioOrdered By: Guy Ho on 02-14-2025 Urea nitrogen/Creatinine [Mass ratio] 13.3 mg/mg 10-20 [facility] Basophil percentageOrdered B y: Guy Ho on 02-14-2025 Basophils/100 WBC (Bld) 1.1 % High 0-1 [facility] Bilirubin Test strip Ql (U)O rdered By: Guy Ho on 02-14-2025 Bilirubin Ql (U) Negative Negative [facility] Bilirubin, totalOrdered By: Guy Ho on 02-14-2025 Bilirubin [Mass/Vol] 0.69 mg/dL 0.00-1.30 [facility] CBC W/Diff, Automatedon 01-19 Absolute Lymph 0.45 X10 3/uL Low 0.83-4.51 [facility] Comment on above: Performed By: #### L 100.0100, L501.5200, L500.4050 ####[facility] [address] [place], [address] Absolute Neut 3.1 X10 3/uL Normal 2.0-7.7 [facility] Comment on above: Performed By: #### L 100.0100, L501.5200, L500.4050 ####[facility] [address] [place], [address] Basophils/100 WBC (Bld) 1.1 % High 0-1 [facility] Comment on above: Performed By: #### L 100.0100, L501.5200, L500.4050 ####[facility] [address] [place], [address] Eosinophils/100 WBC (Bld) 1.3 % Normal 0-5 [facility] Comment on above: Performed By: #### L 100.0100, L501.5200, L500.4050 ####[facility] [address] [place], [address] Erythrocyte distribution width (RBC) [Ratio] 15.3 % High 11.6-14.6 [facility] Comment on above: Performed By: #### L 100.0100, L501.5200, L500.4050 ####[facility] [address] [place], [address] Hematocrit (Bld) [Volume fraction] 34.4 % Low 40-54 [facility] Comment on above: Performed By: #### L 100.0100, L501.5200, L500.4050 ####[facility] [address] [place], [address] Hemoglobin (Bld) [Mass/Vol] 12.4 g/dL Low 13.0-16.5 [facility] Comment on above: Performed By: #### L 100.0100, L501.5200, L500.4050 ####[facility] [address] [place], [address] IG% 0.600 Normal 0.0-0.9 [facility] Comment on above: Result Comment: IG% - Immature Granulocytes (promyelocytes, myelocytes andmetamyelocytes) > 1% indicates that a LEFT SHIFT is Present. Performed By: #### L 100.0100, L501.5200, L500.4050 ####[facility] [address] [place], [address] Lymphocytes/100 WBC (Bld) 9.5 % Low 19-41 [facility] Comment on above: Performed By: #### L 100.0100, L501.5200, L500.4050 ####[facility] [address] [place], [address] MCH (RBC) [Entitic mass] 34.2 pg High 27.0-32.0 [facility] Comment on above: Performed By: #### L 100.0100, L501.5200, L500.4050 ####[facility] [address] [place], [address] MCHC (RBC) [Mass/Vol] 36.0 g/dL Normal 32-36 [facility] Comment on above: Performed By: #### L 100.0100, L501.5200, L500.4050 ####[facility] [address] [place], [id number] MCV (RBC) [Entitic vol] 94.8 fL High 80-94 [facility] Comment on above: Performed By: #### L 100.0100, L501.5200, L500.4050 ####[facility] [address] [place], [address] Monocytes/100 WBC (Bld) 21.6 % High 0-10 [facility] Comment on above: Performed By: #### L 100.0100, L501.5200, L500.4050 ####[facility] [address] [place], [address] Neutrophils/100 WBC (Bld) 65.9 % Normal 47-70 [facility] Comment on above: Performed By: #### L 100.0100, L501.5200, L500.4050 ####[facility] [address] [place], [address] Nucleated RBC (Bld) [#/Vol] 0 10*3/uL Normal 0-5 [facility] Comment on above: Performed By: #### L 100.0100, L501.5200, L500.4050 ####[facility] [address] [place], [address] Platelet mean volume (Bld) [Entitic vol] 8.9 fL Normal 6.2-12.0 [facility] Comment on above: Performed By: #### L 100.0100, L501.5200, L500.4050 ####[facility] [address] [place], [address] Platelets (Bld) [#/Vol] 130 10*3/uL Low 150-450 [facility] Comment on above: Performed By: #### L 100.0100, L501.5200, L500.4050 ####[facility] [address] [place], [address] RBC (Bld) [#/Vol] 3.63 10*6/uL Low 4.6-6.2 [facility] Comment on above: Performed By: #### L 100.0100, L501.5200, L500.4050 ####[facility] [address] [place], [address] RDW SD 52.5 fl High 35.1-43.9 [facility] Comment on above: Performed By: #### L 100.0100, L501.5200, L500.4050 ####[facility] [address] [place], [address] WBC (Bld) [#/Vol] 4.7 10*3/uL Normal 4.4-11.0 [facility] Comment on above: Performed By: #### L 100.0100, L501.5200, L500.4050 ####[facility] [address] [place], [address] Calcium oxalate crystals det ection in urine sediment by light microscopyOrdered By: Guy Ho on 02-14-2025 Calcium oxalate crystals LM Ql (Urine sed) 2+ /hpf [facility] Carbon dioxide, total [Moles /volume] in Central venous bloodOrdered By: Guy Ho on 02-14-2025 CO2 [Moles/Vol] 27.8 mmol/L 21.0-32.0 [facility] Chloride assayOrdered By: Greta Ho on 02-14-2025 Chloride [Moles/Vol] 100 mmol/L 98-108 [facility] Comprehensive Metabolic Prof ilon 02-14-2025 Albumin [Mass/Vol] 3.6 g/dL Normal 3.5-5.0 [facility] Comment on above: Performed By: #### L 100.0100, L501.5200, L500.4050 ####[facility] [address] [place], [address] Albumin/Globulin [Mass ratio] 1.1 {ratio} Normal 0.9-2.4 [facility] Comment on above: Performed By: #### L 100.0100, L501.5200, L500.4050 ####[facility] [address] [place], [address] ALK PHOS 127 U/L Normal 40-129 [facility] Comment on above: Performed By: #### L 100.0100, L501.5200, L500.4050 ####[facility] [address] [place], [address] ALT [Catalytic activity/Vol] 15 U/L Normal <=46 [facility] Comment on above: Performed By: #### L 100.0100, L501.5200, L500.4050 ####[facility] [address] [place], [address] AST [Catalytic activity/Vol] 27 U/L Normal <=37 [facility] Comment on above: Performed By: #### L 100.0100, L501.5200, L500.4050 ####[facility] [address] [place], [address] Bilirubin [Mass/Vol] 0.69 mg/dL Normal 0.00-1.30 [facility] Comment on above: Performed By: #### L 100.0100, L501.5200, L500.4050 ####[facility] [address] [place], [address] BUN/CRE 13.3 RATIO Normal 10-20 [facility] Comment on above: Performed By: #### L 100.0100, L501.5200, L500.4050 ####[facility] [address] [place], [address] Calcium [Mass/Vol] 9.4 mg/dL Normal 7.6-11.0 [facility] Comment on above: Performed By: #### L 100.0100, L501.5200, L500.4050 ####[facility] [address] [place], [id number] Chloride [Moles/Vol] 100 mmol/L Normal 98-108 [facility] Comment on above: Performed By: #### L 100.0100, L501.5200, L500.4050 ####[facility] [address] [place], [address] CO2 [Moles/Vol] 27.8 mmol/L Normal 21.0-32.0 [facility] Comment on above: Performed By: #### L 100.0100, L501.5200, L500.4050 ####[facility] [address] [place], [address] Creatinine [Mass/Vol] 1.33 mg/dL High 0.70-1.20 [facility] Comment on above: Performed By: #### L 100.0100, L501.5200, L500.4050 ####[facility] [address] [place], [id number] ECRCL 43.52 ml/min Low 50-250 [facility] Comment on above: Performed By: #### L 100.0100, L501.5200, L500.4050 ####[facility] [address] [place], [address] GAP 9 Normal 5-15 [facility] Comment on above: Performed By: #### L 100.0100, L501.5200, L500.4050 ####[facility] [address] [place], [address] GFR/1.73 sq M.predicted among non-blacks MDRD (S/P/Bld) [Vol rate/Area] 62 mL/min/{1.73_m2} Normal >60 [facility] Comment on above: Result Comment: mL/m in/1.73m2 CKD-EPI Creatinine Equation (2020) Performed By: #### L 100.0100, L501.5200, L500.4050 ####[facility] [address] [place], [address] Globulin (S) [Mass/Vol] 3.2 g/dL Normal 2.2-4.2 [facility] Comment on above: Performed By: #### L 100.0100, L501.5200, L500.4050 ####[facility] [address] [place], [address] Glucose [Mass/Vol] 106 mg/dL High 70-99 [facility] Comment on above: Performed By: #### L 100.0100, L501.5200, L500.4050 ####[facility] [address] [place], [address] Potassium [Moles/Vol] 3.4 mmol/L Normal 3.3-5.1 [facility] Comment on above: Performed By: #### L 100.0100, L501.5200, L500.4050 ####[facility] [address] [place], [address] Sodium [Moles/Vol] 137 mmol/L Normal 133-145 [facility] Comment on above: Performed By: #### L 100.0100, L501.5200, L500.4050 ####[facility] [address] [place], [address] T PROT 6.8 g/dL Normal 5.9-8.4 [facility] Comment on above: Performed By: #### L 100.0100, L501.5200, L500.4050 ####[facility] [address] [place], [address] Urea nitrogen [Mass/Vol] 18 mg/dL Normal 4-19 [facility] Comment on above: Performed By: #### L 100.0100, L501.5200, L500.4050 ####[facility] [address] [place], [address] Eosinophil percentageOrdered By: Guy Ho on 02-14-2025 Eosinophils/100 WBC (Bld) 1.3 % 0-5 [facility] Erythrocyte distribution wid th ratioOrdered By: [facility] Erythrocyte distribution width (RBC) [Ratio] 15.3 % High 11.6-14.6 [facility] Erythrocyte distribution wid th standard deviationOrdered By: [facility] on 02-14-2025 Erythrocyte distribution width (RBC) [Ratio] 52.5 fl High 35.1-43.9 [facility] Glomerular filtration rate ( GFR) estimation/1.73 sq m using serum, plasma, or whole bOrdered By: Guy Ho on 02-14-2025 GFR/1.73 sq M.predicted among non-blacks MDRD (S/P/Bld) [Vol rate/Area] 62 mL/min/{1.73_m2} >60 [facility] Comment on above: mL/min/1.73m2 CKD-EP I Creatinine Equation (2020) Hematocrit Auto (Bld) [Volum e fraction]Ordered By: Guy Ho on 02-14-2025 Hematocrit (Bld) [Volume fraction] 34.4 % Low 40-54 [facility] Hemoglobin measurementOrdere d By: Guy Ho on 02-14-2025 Hemoglobin (Bld) [Mass/Vol] 12.4 g/dL Low 13.0-16.5 [facility] Immature granulocytes/100 WB C Auto (Bld)Ordered By: Guy Ho on 02-14-2025 Immature granulocytes/100 WBC (Bld) 0.600 % 0.0-0.9 [facility] Comment on above: IG% - Immature Granu locytes (promyelocytes, myelocytes and metamyelocytes) > 1% indicates that a LEFT SHIFT is Present. Ketones Test strip Ql (U)Ord ered By: Guy Ho on 02-14-2025 Ketones Ql (U) Negative Negative [facility] Laboratory - Chemistry and C hemistry - challengeOrdered By: Guy Ho on 02-14-2025 AST [Catalytic activity/Vol] 27 U/L <38 [facility] MCV (mean corpuscular volume ) determinationOrdered By: Guy Ho on 02-14-2025 MCV (RBC) [Entitic vol] 94.8 fL High 80-94 [facility] Magnesiumon 02-14-2025 Magnesium [Mass/Vol] 2.3 mg/dL High 1.5-2.2 [facility] Comment on above: Performed By: #### L 100.0100, L501.5200, L500.4050 ####[facility] [address] [place], [address] Magnesium measurement (mass/ volume)Ordered By: Guy Ho on 02-14-2025 Magnesium (Unsp spec) [Mass/Vol] 2.3 mg/dL High 1.5-2.2 [facility] Mean corpuscular hemoglobin (MCH) determinationOrdered By: Guy Ho on 02-14-2025 MCH (RBC) [Entitic mass] 34.2 pg High 27.0-32.0 [facility] Mean corpuscular hemoglobin concentration (MCHC) determinationOrdered By: Guy Ho on 02-14-2025 MCHC (RBC) [Mass/Vol] 36.0 g/dL 32-36 [facility] Mean platelet volume determi nationOrdered By: Guy Ho on 02-14-2025 Platelet mean volume (Bld) [Entitic vol] 8.9 fL 6.2-12.0 [facility] Microscopic analysis of urin e for red blood cells (RBC)Ordered By: Guy Ho on 02-14-2025 Microscopic analysis of urine for red blood cells (RBC) 50-100 SEEN /hpf 0-5 [facility] Monocyte percentageOrdered B y: Guy Ho on 02-14-2025 Monocytes/100 WBC (Bld) 21.6 % High 0-10 [facility] Mucus LM Ql (Urine sed)Order ed By: Guy Ho on 02-14-2025 Mucus Ql (Urine sed) 0 SEEN /hpf [facility] Neutrophil percentageOrdered By: Guy Ho on 02-14-2025 Neutrophils/100 WBC (Bld) 65.9 % 47-70 [facility] Nitrite Test strip Ql (U)Ord ered By: Gyu Ho on 02-14-2025 Nitrite Ql (U) Negative Negative [facility] Nucleated red blood cell per centageOrdered By: Guy Ho on 02-14-2025 Nucleated RBC/100 WBC (Bld) [Ratio] 0 % 0-5 [facility] Oncology Visit Reporton 01-19 Oncology Visit Report Normal [facility] Platelet countOrdered By: Greta Ho on 02-14-2025 Platelets (Bld) [#/Vol] 130 10*3/uL Low 150-450 [facility] Potassium measurement (mass/ volume)Ordered By: Guy Ho on 02-14-2025 Potassium (Unsp spec) [Mass/Vol] 3.4 mmol/L 3.3-5.1 [facility] Protein Test strip Ql (U)Ord ered By: Guy Ho on 02-14-2025 Protein Ql (U) 100 mg/dl High Negative [facility] RBC Auto (Bld) [#/Vol]Ordere d By: Guy Ho on 02-14-2025 RBC (Bld) [#/Vol] 3.63 10*6/uL Low 4.6-6.2 [facility] Serum creatinine measurement (mass/volume)Ordered By: Guy Ho on 02-14-2025 Creatinine [Mass/Vol] 1.33 mg/dL High 0.70-1.20 [facility] Serum globulin measurementOr dered By: Guy Ho on 02-14-2025 Globulin (S) [Mass/Vol] 3.2 g/dL 2.2-4.2 [facility] Serum glucose measurement (m ass/volume)Ordered By: Guy Ho on 02-14-2025 Glucose [Mass/Vol] 106 mg/dL High 70-99 [facility] Serum or plasma alanine galindo otransferase (ALT) measurementOrdered By: Guy Ho on 02-14-2025 ALT [Catalytic activity/Vol] 15 U/L <47 [facility] Serum or plasma albumin jeuss urement (mass/volume)Ordered By: Guy Ho on 02-14-2025 Albumin [Mass/Vol] 3.6 g/dL 3.5-5.0 [facility] Serum or plasma albumin/glob ulin mass ratioOrdered By: Guy Ho on 02-14-2025 Albumin/Globulin [Mass ratio] 1.1 {ratio} 0.9-2.4 [facility] Serum or plasma alkaline cesar sphatase measurementOrdered By: Guy Ho on 02-14-2025 ALP [Catalytic activity/Vol] 127 U/L 40-129 [facility] Serum or plasma calcium jesus urement (mass/volume)Ordered By: Guy Ho on 02-14-2025 Calcium [Mass/Vol] 9.4 mg/dL 7.6-11.0 [facility] Serum or plasma carcinoembry onic antigen measurement (mass/volume)Ordered By: Guy Ho on 02-14-2025 Carcinoembryonic Ag [Mass/Vol] 2.9 ng/mL 0.0-4.7 [facility] Comment on above: Nonsmokers <3.9 Smok ers <5.6[employer] Electrochemiluminescence Immunoassay(ECLIA)Values obtained with different assay methods or kitscannot be used interchangeably. Results cannot beinterpreted as absolute evidence of the presence orabsence of malignant disease.Performed at: [address] [id number] Director: Javid Diehl PhD, Phone: [phone] Serum or plasma urea nitroge n measurement (mass/volume)Ordered By: Guy Ho on 02-14-2025 Urea nitrogen [Mass/Vol] 18 mg/dL 4-19 [facility] Sodium levelOrdered By: Sudeep oH on 02-14-2025 Sodium [Moles/Vol] 137 mmol/L 133-145 [facility] Squamous epithelial cells de tection in urine sediment by light microscopyOrdered By: Guy Ho on 02-14-2025 Epithelial cells.squamous LM Ql (Urine sed) 0-5 SEEN /hpf 0-5 [facility] Total proteinOrdered By: Demetrio Ho on 02-14-2025 Protein [Mass/Vol] 6.8 g/dL 5.9-8.4 [facility] Urinalysis, Completeon 02-14 BACTERIA 4+ /hpf Normal None Seen [facility] Comment on above: Order Comment: TUBE 2TUBE 2COLLECTOR TO SPECIFY Performed By: #### L 400.0001, M100.2200 ####[facility] [address] [place], [address] CA OX CRYSTAL 2+ /hpf Normal [facility] Comment on above: Order Comment: TUBE 2TUBE 2COLLECTOR TO SPECIFY Performed By: #### L 400.0001, M100.2200 ####[facility] [address] [place], [address] EPI,SQUAMOUS 0-5 SEEN Normal 0-5 [facility] Comment on above: Order Comment: TUBE 2TUBE 2COLLECTOR TO SPECIFY Performed By: #### L 400.0001, M100.2200 ####[facility] [address] [place], [address] RBC 50-100 SEEN Normal 0-5 [facility] Comment on above: Order Comment: TUBE 2TUBE 2COLLECTOR TO SPECIFY Performed By: #### L 400.0001, M100.2200 ####[facility] [address] [place], [address] WBC 50-100 SEEN Normal 0-5 [facility] Comment on above: Order Comment: TUBE 2TUBE 2COLLECTOR TO SPECIFY Performed By: #### L 400.0001, M100.2200 ####[facility] [address] [place], [address] BACTERIA 4+ /hpf Normal None Seen [facility] Comment on above: Order Comment: TUBE 1TUBE ONECOLLECTOR TO SPECIFY Performed By: #### M 100.2200, L400.0001 ####[facility] [address] [place], [address] EPI,SQUAMOUS 0-5 SEEN Normal 0-5 [facility] Comment on above: Order Comment: TUBE 1TUBE ONECOLLECTOR TO SPECIFY Performed By: #### M 100.2200, L400.0001 ####[facility] [address] [place], [address] RBC 50-100 SEEN Normal 0-5 [facility] Comment on above: Order Comment: TUBE 1TUBE ONECOLLECTOR TO SPECIFY Performed By: #### M 100.2200, L400.0001 ####[facility] [address] [place], [address] WBC 50-100 SEEN Normal 0-5 [facility] Comment on above: Order Comment: TUBE 1TUBE ONECOLLECTOR TO SPECIFY Performed By: #### M 100.2200, L400.0001 ####[facility] [address] [place], [address] Mucus Ql (Urine sed) 0 SEEN Normal [facility] Comment on above: Order Comment: TUBE 1TUBE ONECOLLECTOR TO SPECIFY Performed By: #### M 100.2200, L400.0001 ####[facility] [address] [place], [address] Order Comment: TUBE 2TUBE 2COLLECTOR TO SPECIFY Performed By: #### L 400.0001, M100.2200 ####[facility] [address] [place], [address] Urine clarityOrdered By: Demetrio Ho on 02-14-2025 Clarity (U) Cloudy Clear [facility] Urine color determinationOrd ered By: Guy Ho on 02-14-2025 Color (U) Yellow Yellow [facility] Urine cultureOrdered By: Demetrio Ho on 02-14-2025 Bacteria identified Cx Nom (U) Escherichia coli Abnormal [facility] Urine glucose detectionOrder ed By: Guy Ho on 02-14-2025 Glucose Ql (U) Normal mg/dl Normal [facility] Urine leukocyte esterase det ection by dipstickOrdered By: Guy Ho on 02-14-2025 Leukocyte esterase Test strip Ql (U) 500 /ul High Negative [facility] Urine pHOrdered By: Guy coffey on 02-14-2025 pH (U) 6.0 [pH] 5.0 - 8.0 [facility] Urine sediment bacteria coun t by microscopy (number/high power field)Ordered By: Guy Ho on 02-14-2025 Bacteria LM.HPF (Urine sed) [#/Area] 4 /[HPF] None Seen [facility] Urine specific gravity measu rementOrdered By: Guy Ho on 02-14-2025 Specific gravity (U) [Rel density] 1.020 1.002-1.03 0 [facility] Urine urobilinogen measureme ntOrdered By: Guy Ho on 02-14-2025 Urobilinogen Ql (U) 4 mg/dl High Normal [facility] White blood cell (WBC) count Ordered By: Guy Ho on 02-14-2025 WBC (Bld) [#/Vol] 4.7 10*3/uL 4.4-11.0 [facility] White blood cell countOrdere d By: Guy Ho on 02-14-2025 White blood cell count 50-100 SEEN /hpf 0-5 [facility] CBC W/Diff, Automatedon 04- Absolute Lymph 0.33 X10 3/uL Low 0.83-4.51 [facility] Comment on above: Performed By: #### L 100.0100, L500.4050, L501.5200 ####[facility] [address] [place], [address] Absolute Neut 1.7 X10 3/uL Low 2.0-7.7 [facility] Comment on above: Performed By: #### L 100.0100, L500.4050, L501.5200 ####[facility] [address] [place], [address] Basophils/100 WBC (Bld) 1.9 % High 0-1 [facility] Comment on above: Performed By: #### L 100.0100, L500.4050, L501.5200 ####[facility] [address] [place], [address] Eosinophils/100 WBC (Bld) 2.9 % Normal 0-5 [facility] Comment on above: Performed By: #### L 100.0100, L500.4050, L501.5200 ####[facility] [address] [place], [address] Erythrocyte distribution width (RBC) [Ratio] 16.7 % High 11.6-14.6 [facility] Comment on above: Performed By: #### L 100.0100, L500.4050, L501.5200 ####[facility] [address] [place], [address] Hematocrit (Bld) [Volume fraction] 32.1 % Low 40-54 [facility] Comment on above: Performed By: #### L 100.0100, L500.4050, L501.5200 ####[facility] [address] [place], [address] Hemoglobin (Bld) [Mass/Vol] 10.9 g/dL Low 13.0-16.5 [facility] Comment on above: Performed By: #### L 100.0100, L500.4050, L501.5200 ####[facility] [address] [place], [address] IG% 0.600 Normal 0.0-0.9 [facility] Comment on above: Result Comment: IG% - Immature Granulocytes (promyelocytes, myelocytes andmetamyelocytes) > 1% indicates that a LEFT SHIFT is Present. Performed By: #### L 100.0100, L500.4050, L501.5200 ####[facility] [address] [place], [address] Lymphocytes/100 WBC (Bld) 10.7 % Low 19-41 [facility] Comment on above: Performed By: #### L 100.0100, L500.4050, L501.5200 ####[facility] [address] [place], [id number] MCH (RBC) [Entitic mass] 32.4 pg High 27.0-32.0 [facility] Comment on above: Performed By: #### L 100.0100, L500.4050, L501.5200 ####[facility] [address] [place], [address] MCHC (RBC) [Mass/Vol] 34.0 g/dL Normal 32-36 [facility] Comment on above: Performed By: #### L 100.0100, L500.4050, L501.5200 ####[facility] [address] [place], [address] MCV (RBC) [Entitic vol] 95.5 fL High 80-94 [facility] Comment on above: Performed By: #### L 100.0100, L500.4050, L501.5200 ####[facility] [address] [place], [address] Monocytes/100 WBC (Bld) 27.8 % High 0-10 [facility] Comment on above: Performed By: #### L 100.0100, L500.4050, L501.5200 ####[facility] [address] [place], [id number] Neutrophils/100 WBC (Bld) 56.1 % Normal 47-70 [facility] Comment on above: Performed By: #### L 100.0100, L500.4050, L501.5200 ####[facility] [address] [place], [address] Nucleated RBC (Bld) [#/Vol] 0 10*3/uL Normal 0-5 [facility] Comment on above: Performed By: #### L 100.0100, L500.4050, L501.5200 ####[facility] [address] [place], [id number] Platelet mean volume (Bld) [Entitic vol] 8.8 fL Normal 6.2-12.0 [facility] Comment on above: Performed By: #### L 100.0100, L500.4050, L501.5200 ####[facility] [address] [place], [id number] Platelets (Bld) [#/Vol] 136 10*3/uL Low 150-450 [facility] Comment on above: Performed By: #### L 100.0100, L500.4050, L501.5200 ####[facility] [address] [place], [id number] RBC (Bld) [#/Vol] 3.36 10*6/uL Low 4.6-6.2 [facility] Comment on above: Performed By: #### L 100.0100, L500.4050, L501.5200 ####[facility] [address] [place], [id number] RDW SD 58.0 fl High 35.1-43.9 [facility] Comment on above: Performed By: #### L 100.0100, L500.4050, L501.5200 ####[facility] [address] [place], [id number] WBC (Bld) [#/Vol] 3.1 10*3/uL Low 4.4-11.0 [facility] Comment on above: Performed By: #### L 100.0100, L500.4050, L501.5200 ####[facility] [address] [place], [id number] Comprehensive Metabolic Prof [facility] 04-14-2025 Albumin [Mass/Vol] 3.5 g/dL Normal 3.5-5.0 [facility] Comment on above: Performed By: #### L 100.0100, L500.4050, L501.5200 ####[facility] [address] [place], [address] Albumin/Globulin [Mass ratio] 1.0 {ratio} Normal 0.9-2.4 [facility] Comment on above: Performed By: #### L 100.0100, L500.4050, L501.5200 ####[facility] [address] [place], [id number] ALK PHOS 125 U/L Normal 40-129 [facility] Comment on above: Performed By: #### L 100.0100, L500.4050, L501.5200 ####[facility] [address] [place], [address] ALT [Catalytic activity/Vol] 15 U/L Normal <=46 [facility] Comment on above: Performed By: #### L 100.0100, L500.4050, L501.5200 ####[facility] [address] [place], [address] AST [Catalytic activity/Vol] 26 U/L Normal <=37 [facility] Comment on above: Performed By: #### L 100.0100, L500.4050, L501.5200 ####[facility] [address] [place], [address] Bilirubin [Mass/Vol] 0.35 mg/dL Normal 0.00-1.30 [facility] Comment on above: Performed By: #### L 100.0100, L500.4050, L501.5200 ####[facility] [address] [place], [address] BUN/CRE 13.0 RATIO Normal 10-20 [facility] Comment on above: Performed By: #### L 100.0100, L500.4050, L501.5200 ####[facility] [address] [place], [address] Calcium [Mass/Vol] 9.5 mg/dL Normal 7.6-11.0 [facility] Comment on above: Performed By: #### L 100.0100, L500.4050, L501.5200 ####[facility] [address] [place], [address] Chloride [Moles/Vol] 105 mmol/L Normal 98-108 [facility] Comment on above: Performed By: #### L 100.0100, L500.4050, L501.5200 ####[facility] [address] [place], [address] CO2 [Moles/Vol] 24.3 mmol/L Normal 21.0-32.0 [facility] Comment on above: Performed By: #### L 100.0100, L500.4050, L501.5200 ####[facility] [address] [place], [address] Creatinine [Mass/Vol] 1.35 mg/dL High 0.70-1.20 [facility] Comment on above: Performed By: #### L 100.0100, L500.4050, L501.5200 ####[facility] [address] [place], [address] ECRCL 45.10 ml/min Low 50-250 [facility] Comment on above: Performed By: #### L 100.0100, L500.4050, L501.5200 ####[facility] [address] [place], [address] GAP 9 Normal 5-15 [facility] Comment on above: Performed By: #### L 100.0100, L500.4050, L501.5200 ####[facility] [address] [place], [address] GFR/1.73 sq M.predicted among non-blacks MDRD (S/P/Bld) [Vol rate/Area] 60 mL/min/{1.73_m2} Normal >60 [facility] Comment on above: Result Comment: mL/m in/1.73m2 CKD-EPI Creatinine Equation (2020) Performed By: #### L 100.0100, L500.4050, L501.5200 ####[facility] [address] [place], [address] Globulin (S) [Mass/Vol] 3.4 g/dL Normal 2.2-4.2 [facility] Comment on above: Performed By: #### L 100.0100, L500.4050, L501.5200 ####[facility] [address] [place], [address] Glucose [Mass/Vol] 90 mg/dL Normal 70-99 [facility] Comment on above: Performed By: #### L 100.0100, L500.4050, L501.5200 ####[facility] [address] [place], [address] Potassium [Moles/Vol] 3.5 mmol/L Normal 3.3-5.1 [facility] Comment on above: Performed By: #### L 100.0100, L500.4050, L501.5200 ####[facility] [address] [place], [address] Sodium [Moles/Vol] 138 mmol/L Normal 133-145 [facility] Comment on above: Performed By: #### L 100.0100, L500.4050, L501.5200 ####[facility] [address] [place], [address] T PROT 6.9 g/dL Normal 5.9-8.4 [facility] Comment on above: Performed By: #### L 100.0100, L500.4050, L501.5200 ####[facility] [address] [place], [address] Urea nitrogen [Mass/Vol] 18 mg/dL Normal 4-19 [facility] Comment on above: Performed By: #### L 100.0100, L500.4050, L501.5200 ####[facility] [address] [place], [address] Magnesiumon 01-31-2025 Magnesium [Mass/Vol] 2.2 mg/dL Normal 1.5-2.2 [facility] Comment on above: Performed By: #### L 100.0100, L500.4050, L501.5200 ####[facility] [address] [place], [address] Oncology Visit Reporton 01-18 Oncology Visit Report Normal [facility] CBC W/Diff, Automatedon - Absolute Lymph 0.40 X10 3/uL Low 0.83-4.51 [facility] Comment on above: Performed By: #### L 500.4050, L100.0100, L501.5200 ####[facility] [address] [place], [address] Absolute Neut 2.0 X10 3/uL Normal 2.0-7.7 [facility] Comment on above: Performed By: #### L 500.4050, L100.0100, L501.5200 ####[facility] [address] [place], [address] Basophils/100 WBC (Bld) 1.2 % High 0-1 [facility] Comment on above: Performed By: #### L 500.4050, L100.0100, L501.5200 ####[facility] [address] [place], [address] Eosinophils/100 WBC (Bld) 4.0 % Normal 0-5 [facility] Comment on above: Performed By: #### L 500.4050, L100.0100, L501.5200 ####[facility] [address] [place], [address] Erythrocyte distribution width (RBC) [Ratio] 17.2 % High 11.6-14.6 [facility] Comment on above: Performed By: #### L 500.4050, L100.0100, L501.5200 ####[facility] [address] [place], [address] Hematocrit (Bld) [Volume fraction] 29.9 % Low 40-54 [facility] Comment on above: Performed By: #### L 500.4050, L100.0100, L501.5200 ####[facility] [address] [place], [address] Hemoglobin (Bld) [Mass/Vol] 10.6 g/dL Low 13.0-16.5 [facility] Comment on above: Performed By: #### L 500.4050, L100.0100, L501.5200 ####[facility] [address] [place], [address] IG% 0.300 Normal 0.0-0.9 [facility] Comment on above: Result Comment: IG% - Immature Granulocytes (promyelocytes, myelocytes andmetamyelocytes) > 1% indicates that a LEFT SHIFT is Present. Performed By: #### L 500.4050, L100.0100, L501.5200 ####[facility] [address] [place], [address] Lymphocytes/100 WBC (Bld) 12.4 % Low 19-41 [facility] Comment on above: Performed By: #### L 500.4050, L100.0100, L501.5200 ####[facility] [address] [place], [id number] MCH (RBC) [Entitic mass] 33.2 pg High 27.0-32.0 [facility] Comment on above: Performed By: #### L 500.4050, L100.0100, L501.5200 ####[facility] [address] [place], [address] MCHC (RBC) [Mass/Vol] 35.5 g/dL Normal 32-36 [facility] Comment on above: Performed By: #### L 500.4050, L100.0100, L501.5200 ####[facility] [address] [place], [address] MCV (RBC) [Entitic vol] 93.7 fL Normal 80-94 [facility] Comment on above: Performed By: #### L 500.4050, L100.0100, L501.5200 ####[facility] [address] [place], [id number] Monocytes/100 WBC (Bld) 19.5 % High 0-10 [facility] Comment on above: Performed By: #### L 500.4050, L100.0100, L501.5200 ####[facility] [address] [place], [address] Neutrophils/100 WBC (Bld) 62.6 % Normal 47-70 [facility] Comment on above: Performed By: #### L 500.4050, L100.0100, L501.5200 ####[facility] [address] [place], [address] Nucleated RBC (Bld) [#/Vol] 0 10*3/uL Normal 0-5 [facility] Comment on above: Performed By: #### L 500.4050, L100.0100, L501.5200 ####[facility] [address] [place], [id number] Platelet mean volume (Bld) [Entitic vol] 8.6 fL Normal 6.2-12.0 [facility] Comment on above: Performed By: #### L 500.4050, L100.0100, L501.5200 ####[facility] [address] [place], [id number] Platelets (Bld) [#/Vol] 102 10*3/uL Low 150-450 [facility] Comment on above: Performed By: #### L 500.4050, L100.0100, L501.5200 ####[facility] [address] [place], [id number] RBC (Bld) [#/Vol] 3.19 10*6/uL Low 4.6-6.2 [facility] Comment on above: Performed By: #### L 500.4050, L100.0100, L501.5200 ####[facility] [address] [place], [id number] RDW SD 57.3 fl High 35.1-43.9 [facility] Comment on above: Performed By: #### L 500.4050, L100.0100, L501.5200 ####[facility] [address] [place], [id number] WBC (Bld) [#/Vol] 3.2 10*3/uL Low 4.4-11.0 [facility] Comment on above: Performed By: #### L 500.4050, L100.0100, L501.5200 ####[facility] [address] [place], [id number] Comprehensive Metabolic Prof ilon 01-17-2025 Albumin [Mass/Vol] 3.4 g/dL Low 3.5-5.0 [facility] Comment on above: Performed By: #### L 500.4050, L100.0100, L501.5200 ####[facility] [address] [place], [address] Albumin/Globulin [Mass ratio] 1.0 {ratio} Normal 0.9-2.4 [facility] Comment on above: Performed By: #### L 500.4050, L100.0100, L501.5200 ####[facility] [address] [place], [address] ALK PHOS 109 U/L Normal 40-129 [facility] Comment on above: Performed By: #### L 500.4050, L100.0100, L501.5200 ####[facility] [address] [place], [address] ALT [Catalytic activity/Vol] 14 U/L Normal <=46 [facility] Comment on above: Performed By: #### L 500.4050, L100.0100, L501.5200 ####[facility] [address] [place], [address] AST [Catalytic activity/Vol] 24 U/L Normal <=37 [facility] Comment on above: Performed By: #### L 500.4050, L100.0100, L501.5200 ####[facility] [address] [place], [address] Bilirubin [Mass/Vol] 0.34 mg/dL Normal 0.00-1.30 [facility] Comment on above: Performed By: #### L 500.4050, L100.0100, L501.5200 ####[facility] [address] [place], [address] BUN/CRE 11.5 RATIO Normal 10-20 [facility] Comment on above: Performed By: #### L 500.4050, L100.0100, L501.5200 ####[facility] [address] [place], [address] Calcium [Mass/Vol] 9.4 mg/dL Normal 7.6-11.0 [facility] Comment on above: Performed By: #### L 500.4050, L100.0100, L501.5200 ####[facility] [address] [place], [id number] Chloride [Moles/Vol] 108 mmol/L Normal 98-108 [facility] Comment on above: Performed By: #### L 500.4050, L100.0100, L501.5200 ####[facility] [address] [place], [id number] CO2 [Moles/Vol] 21.5 mmol/L Normal 21.0-32.0 [facility] Comment on above: Performed By: #### L 500.4050, L100.0100, L501.5200 ####[facility] [address] [place], [address] Creatinine [Mass/Vol] 1.27 mg/dL High 0.70-1.20 [facility] Comment on above: Performed By: #### L 500.4050, L100.0100, L501.5200 ####[facility] [address] [place], [id number] ECRCL 47.89 ml/min Low 50-250 [facility] Comment on above: Performed By: #### L 500.4050, L100.0100, L501.5200 ####[facility] [address] [place], [id number] GAP 11 Normal 5-15 [facility] Comment on above: Performed By: #### L 500.4050, L100.0100, L501.5200 ####[facility] [address] [place], [id number] GFR/1.73 sq M.predicted among non-blacks MDRD (S/P/Bld) [Vol rate/Area] 65 mL/min/{1.73_m2} Normal >60 [facility] Comment on above: Result Comment: mL/m in/1.73m2 CKD-EPI Creatinine Equation (2020) Performed By: #### L 500.4050, L100.0100, L501.5200 ####[facility] [address] [place], [id number] Globulin (S) [Mass/Vol] 3.4 g/dL Normal 2.2-4.2 [facility] Comment on above: Performed By: #### L 500.4050, L100.0100, L501.5200 ####[facility] [address] [place], [id number] Glucose [Mass/Vol] 101 mg/dL High 70-99 [facility] Comment on above: Performed By: #### L 500.4050, L100.0100, L501.5200 ####[facility] [address] [place], [id number] Potassium [Moles/Vol] 3.3 mmol/L Normal 3.3-5.1 [facility] Comment on above: Performed By: #### L 500.4050, L100.0100, L501.5200 ####[facility] [address] [place], [id number] Sodium [Moles/Vol] 140 mmol/L Normal 133-145 [facility] Comment on above: Performed By: #### L 500.4050, L100.0100, L501.5200 ####[facility] [address] [place], [address] T PROT 6.8 g/dL Normal 5.9-8.4 [facility] Comment on above: Performed By: #### L 500.4050, L100.0100, L501.5200 ####[facility] [address] [place], [address] Urea nitrogen [Mass/Vol] 15 mg/dL Normal 4-19 [facility] Comment on above: Performed By: #### L 500.4050, L100.0100, L501.5200 ####[facility] [address] [place], [address] Magnesiumon 01-17-2025 Magnesium [Mass/Vol] 2.2 mg/dL Normal 1.5-2.2 [facility] Comment on above: Performed By: #### L 500.4050, L100.0100, L501.5200 ####[facility] [address] [facility] [place], [address] Oncology Visit Reporton 12-20 Oncology Visit Report Normal [facility] Blood band neutrophil count as percentage of total leukocytesOrdered By: Guy Ho on 01-03-2025 Band form neutrophils/100 WBC (Bld) 2 % 0-5 [facility] Blood basophils/100 leukocyt esOrdered By: Guy Vic on 01-03-2025 Basophils/100 WBC (Bld) 1 % 0-1 [facility] Blood eosinophils/100 leukoc ytesOrdered By: Guy Ho on 01-03-2025 Eosinophils/100 WBC (Bld) 8 % High 0-5 [facility] Blood lymphocytes/100 leukoc ytesOrdered By: Guy Ho on 01-03-2025 Lymphocytes/100 WBC (Bld) 7 % Low 19-41 [facility] Blood monocytes/100 leukocyt esOrdered By: Guy Ho on 01-03-2025 Monocytes/100 WBC (Bld) 20 % High 0-10 [facility] Blood promyelocytes/100 leuk ocytesOrdered By: Guy Ho on 01-03-2025 Promyelocytes/100 WBC (Bld) 2 % High 0-0 [facility] Blood segmented neutrophils/ 100 leukocytesOrdered By: Guy Ho on 01-03-2025 Segmented neutrophils/100 WBC (Bld) 58 % 47-70 [facility] CBC W/Diff, Automatedon 12-18 Absolute Lymph 0.30 X10 3/uL Low 0.83-4.51 [facility] Comment on above: Performed By: #### L 501.5200, L100.0100, L500.4050 ####[facility] [address] [place], [address] PATH REV May foll Normal [facility] Comment on above: Performed By: #### L 501.5200, L100.0100, L500.4050 ####[facility] [address] [place], [address] Absolute Neut 2.4 X10 3/uL Normal 2.0-7.7 [facility] Comment on above: Performed By: #### L 501.5200, L100.0100, L500.4050 ####[facility] [address] [place], [address] Chest PA and Lateralon 01-03 Chest PA and Lateral Normal [facility] Comprehensive Metabolic Prof ilon 01-03-2025 BUN/CRE 9.5 RATIO Low 10-20 [facility] Comment on above: Performed By: #### L 501.5200, L100.0100, L500.4050 ####[facility] [address] [place], [address] Urea nitrogen [Mass/Vol] 12 mg/dL Normal 4-19 [facility] Comment on above: Performed By: #### L 501.5200, L100.0100, L500.4050 ####[facility] [address] [place], [address] Erythrocyte morphology asses smentOrdered By: Guy Ho on 01-03-2025 RBC morphology finding Nom (Bld) NORM C+C NORMAL NORM C&C [facility] LDHon 01-03-2025 LDH 120 U/L Normal 87-241 [facility] Comment on above: Order Comment: 1 Performed By: #### L 504.2610 ####[facility] [address] [place], [address] Lactate dehydrogenase (LDH) measurementOrdered By: Rangel Connor on 01-03-2025 LDH [Catalytic activity/Vol] 120 U/L 87-241 [facility] Magnesiumon 01-03-2025 Magnesium [Mass/Vol] 2.2 mg/dL Normal 1.5-2.2 [facility] Comment on above: Performed By: #### L 501.5200, L100.0100, L500.4050 ####[facility] [address] [place], [address] Myelocyte %Ordered By: Mathew Ho on 01-03-2025 Myelocytes/100 WBC (Bld) 1 % High 0-0 [facility] Oncology Visit Reporton 12-18 Oncology Visit Report Normal [facility] Platelet estimateOrdered By: Guy Ho on 01-03-2025 Platelets LM Ql (Bld) ADEQUATE ADEQ [facility] Review by pathologistOrdered By: Guy Ho on 01-03-2025 Pathologist review Leonard (Unsp spec) [Interp] May foll [facility] Total cell countOrdered By: Guy Ho on 01-03-2025 Cells counted Molgen (Bld/Tiss) [#] 100 MANUAL DIFF [facility] Urine Cultureon 01-01-2025 URC Normal [facility] Comment on above: Performed By: #### M 100.2200 ####[facility] [address] [place], [address] Basic Metabolic Profile (BMP )on 12-28-2024 BUN/CRE 13.7 RATIO Normal 10-20 [facility] Comment on above: Performed By: #### L 500.2500, L501.5200 ####[facility] [address] [place], [address] Calcium [Mass/Vol] 9.6 mg/dL Normal 7.6-11.0 [facility] Comment on above: Performed By: #### L 500.2500, L501.5200 ####[facility] [address] [place], [address] Chloride [Moles/Vol] 101 mmol/L Normal 98-108 [facility] Comment on above: Performed By: #### L 500.2500, L501.5200 ####[facility] [address] [place], [address] CO2 [Moles/Vol] 24.6 mmol/L Normal 21.0-32.0 [facility] Comment on above: Performed By: #### L 500.2500, L501.5200 ####[facility] [address] [place], [address] Creatinine [Mass/Vol] 1.52 mg/dL High 0.70-1.20 [facility] Comment on above: Performed By: #### L 500.2500, L501.5200 ####[facility] [address] [place], [address] ECRCL 38.91 ml/min Low 50-250 [facility] Comment on above: Performed By: #### L 500.2500, L501.5200 ####[facility] [address] [place], [address] GAP 12 Normal 5-15 [facility] Comment on above: Performed By: #### L 500.2500, L501.5200 ####[facility] [address] [place], [address] GFR/1.73 sq M.predicted among non-blacks MDRD (S/P/Bld) [Vol rate/Area] 53 mL/min/{1.73_m2} Low >60 [facility] Comment on above: Result Comment: mL/m in/1.73m2 CKD-EPI Creatinine Equation (2020) Performed By: #### L 500.2500, L501.5200 ####[facility] [address] [place], [address] Glucose [Mass/Vol] 103 mg/dL High 70-99 [facility] Comment on above: Performed By: #### L 500.2500, L501.5200 ####[facility] [address] [place], [id number] Potassium [Moles/Vol] 3.1 mmol/L Low 3.3-5.1 [facility] Comment on above: Performed By: #### L 500.2500, L501.5200 ####[facility] [address] [place], [address] Sodium [Moles/Vol] 137 mmol/L Normal 133-145 [facility] Comment on above: Performed By: #### L 500.2500, L501.5200 ####[facility] [address] [place], [address] Urea nitrogen [Mass/Vol] 21 mg/dL High 4-19 [facility] Comment on above: Performed By: #### L 500.2500, L501.5200 ####[facility] [address] [place], [address] Magnesiumon 12-28-2024 Magnesium [Mass/Vol] 2.0 mg/dL Normal 1.5-2.2 [facility] Comment on above: Performed By: #### L 500.2500, L501.5200 ####[facility] [facility] [address] [place], [address] Oncology Visit Reporton 12-18 Oncology Visit Report Normal [facility] Urinalysis, Completeon 12-28 BACTERIA 3+ /hpf Normal None Seen [facility] Comment on above: Order Comment: COLLE CTOR TO SPECIFY Performed By: #### L 400.0001 ####[facility] [address] [place], [address] EPI,SQUAMOUS 0-5 SEEN Normal 0-5 [facility] Comment on above: Order Comment: COLLE CTOR TO SPECIFY Performed By: #### L 400.0001 ####[facility] [address] [place], [address] RBC 5-10 SEEN Normal 0-5 [facility] Comment on above: Order Comment: COLLE CTOR TO SPECIFY Performed By: #### L 400.0001 ####[facility] [address] [place], [address] WBC >100 SEEN Normal 0-5 [facility] Comment on above: Order Comment: COLLE CTOR TO SPECIFY Result Comment: Micr oscopic field is filled. Other elements may beobscured. Performed By: #### L 400.0001 ####[facility] [address] [place], [address] Mucus Ql (Urine sed) 0 SEEN Normal [facility] Comment on above: Order Comment: COLLE CTOR TO SPECIFY Performed By: #### L 400.0001 ####[facility] [address] [place], [address] Urine cultureOrdered By: Duy Mercedes on 12-28-2024 Bacteria identified Cx Nom (U) Presumptive E. coli Abnormal [facility] Bacteria identified Cx Nom (U) Proteus hauseri Abnormal [facility] CBC W/Diff, Automatedon 03-0 Absolute Lymph 0.28 X10 3/uL Low 0.83-4.51 [facility] Comment on above: Performed By: #### L 100.0100, L501.5200, L500.4050 ####[facility] [address] [place], [address] Absolute Neut 6.3 X10 3/uL Normal 2.0-7.7 [facility] Comment on above: Performed By: #### L 100.0100, L501.5200, L500.4050 ####[facility] [address] [place], [address] Basophils/100 WBC (Bld) 0.7 % Normal 0-1 [facility] Comment on above: Performed By: #### L 100.0100, L501.5200, L500.4050 ####[facility] [address] [place], [address] Eosinophils/100 WBC (Bld) 0.5 % Normal 0-5 [facility] Comment on above: Performed By: #### L 100.0100, L501.5200, L500.4050 ####[facility] [address] [place], [address] Erythrocyte distribution width (RBC) [Ratio] 17.8 % High 11.6-14.6 [facility] Comment on above: Performed By: #### L 100.0100, L501.5200, L500.4050 ####[facility] [address] [place], [address] Hematocrit (Bld) [Volume fraction] 35.7 % Low 40-54 [facility] Comment on above: Performed By: #### L 100.0100, L501.5200, L500.4050 ####[facility] [address] [place], [address] Hemoglobin (Bld) [Mass/Vol] 12.4 g/dL Low 13.0-16.5 [facility] Comment on above: Performed By: #### L 100.0100, L501.5200, L500.4050 ####[facility] [address] [place], [address] IG% 0.800 Normal 0.0-0.9 [facility] Comment on above: Result Comment: IG% - Immature Granulocytes (promyelocytes, myelocytes andmetamyelocytes) > 1% indicates that a LEFT SHIFT is Present. Performed By: #### L 100.0100, L501.5200, L500.4050 ####[facility] [address] [place], [id number] Lymphocytes/100 WBC (Bld) 3.8 % Low 19-41 [facility] Comment on above: Performed By: #### L 100.0100, L501.5200, L500.4050 ####[facility] [address] [place], [address] MCH (RBC) [Entitic mass] 32.0 pg Normal 27.0-32.0 [facility] Comment on above: Performed By: #### L 100.0100, L501.5200, L500.4050 ####[facility] [address] [place], [address] MCHC (RBC) [Mass/Vol] 34.7 g/dL Normal 32-36 [facility] Comment on above: Performed By: #### L 100.0100, L501.5200, L500.4050 ####[facility] [address] [place], [id number] MCV (RBC) [Entitic vol] 92.0 fL Normal 80-94 [facility] Comment on above: Performed By: #### L 100.0100, L501.5200, L500.4050 ####[facility] [address] [place], [address] Monocytes/100 WBC (Bld) 9.2 % Normal 0-10 [facility] Comment on above: Performed By: #### L 100.0100, L501.5200, L500.4050 ####[facility] [address] [place], [address] Neutrophils/100 WBC (Bld) 85.0 % High 47-70 [facility] Comment on above: Performed By: #### L 100.0100, L501.5200, L500.4050 ####[facility] [address] [place], [id number] Nucleated RBC (Bld) [#/Vol] 0 10*3/uL Normal 0-5 [facility] Comment on above: Performed By: #### L 100.0100, L501.5200, L500.4050 ####[facility] [address] [place], [address] Platelet mean volume (Bld) [Entitic vol] 8.7 fL Normal 6.2-12.0 [facility] Comment on above: Performed By: #### L 100.0100, L501.5200, L500.4050 ####[facility] [address] [place], [address] Platelets (Bld) [#/Vol] 149 10*3/uL Low 150-450 [facility] Comment on above: Performed By: #### L 100.0100, L501.5200, L500.4050 ####[facility] [address] [place], [address] RBC (Bld) [#/Vol] 3.88 10*6/uL Low 4.6-6.2 [facility] Comment on above: Performed By: #### L 100.0100, L501.5200, L500.4050 ####[facility] [address] [place], [address] RDW SD 59.2 fl High 35.1-43.9 [facility] Comment on above: Performed By: #### L 100.0100, L501.5200, L500.4050 ####[facility] [address] [place], [address] WBC (Bld) [#/Vol] 7.5 10*3/uL Normal 4.4-11.0 [facility] Comment on above: Performed By: #### L 100.0100, L501.5200, L500.4050 ####[facility] [address] [place], [address] Chloride measurementOrdered By: Guy Ho on 12-20-2024 Chloride [Moles/Vol] 104 mmol/L 96-108 [facility] Comprehensive Metabolic Prof ilon 12-20-2024 Albumin [Mass/Vol] 3.7 g/dL Normal 3.5-5.0 [facility] Comment on above: Performed By: #### L 100.0100, L501.5200, L500.4050 ####[facility] [address] [place], [address] Albumin/Globulin [Mass ratio] 1.1 {ratio} Normal 0.9-2.4 [facility] Comment on above: Performed By: #### L 100.0100, L501.5200, L500.4050 ####[facility] [address] [place], [address] ALK PHOS 111 U/L Normal 40-129 [facility] Comment on above: Performed By: #### L 100.0100, L501.5200, L500.4050 ####[facility] [address] [place], [id number] ALT [Catalytic activity/Vol] 18 U/L Normal <=46 [facility] Comment on above: Performed By: #### L 100.0100, L501.5200, L500.4050 ####[facility] [address] [place], [address] Anion gap [Moles/Vol] 10 mmol/L Normal 5-15 [facility] Comment on above: Performed By: #### L 100.0100, L501.5200, L500.4050 ####[facility] [address] [place], [address] AST [Catalytic activity/Vol] 24 U/L Normal <=37 [facility] Comment on above: Performed By: #### L 100.0100, L501.5200, L500.4050 ####[facility] [address] [place], [address] Bilirubin [Mass/Vol] 0.39 mg/dL Normal 0.00-1.30 [facility] Comment on above: Performed By: #### L 100.0100, L501.5200, L500.4050 ####[facility] [address] [place], [address] BUN/CRE 14.4 RATIO Normal 10-20 [facility] Comment on above: Performed By: #### L 100.0100, L501.5200, L500.4050 ####[facility] [address] [place], [address] Calcium [Mass/Vol] 9.3 mg/dL Normal 7.6-11.0 [facility] Comment on above: Performed By: #### L 100.0100, L501.5200, L500.4050 ####[facility] [address] [place], [address] Chloride [Moles/Vol] 104 mmol/L Normal 96-108 [facility] Comment on above: Performed By: #### L 100.0100, L501.5200, L500.4050 ####[facility] [address] [place], [address] CO2 [Moles/Vol] 25.2 mmol/L Normal 22.0-29.0 [facility] Comment on above: Performed By: #### L 100.0100, L501.5200, L500.4050 ####[facility] [address] [place], [address] Creatinine [Mass/Vol] 1.35 mg/dL High 0.70-1.20 [facility] Comment on above: Performed By: #### L 100.0100, L501.5200, L500.4050 ####[facility] [address] [place], [id number] ECRCL 47.21 ml/min Low 50-250 [facility] Comment on above: Performed By: #### L 100.0100, L501.5200, L500.4050 ####[facility] [address] [place], [id number] GFR/1.73 sq M.predicted among non-blacks MDRD (S/P/Bld) [Vol rate/Area] 61 mL/min/{1.73_m2} Normal >60 [facility] Comment on above: Result Comment: mL/m in/1.73m2 CKD-EPI Creatinine Equation (2020) Performed By: #### L 100.0100, L501.5200, L500.4050 ####[facility] [address] [place], [address] Globulin (S) [Mass/Vol] 3.4 g/dL Normal 2.2-4.2 [facility] Comment on above: Performed By: #### L 100.0100, L501.5200, L500.4050 ####[facility] [address] [place], [id number] Glucose [Mass/Vol] 109 mg/dL High 70-99 [facility] Comment on above: Performed By: #### L 100.0100, L501.5200, L500.4050 ####[facility] [address] [place], [id number] Potassium [Moles/Vol] 4.1 mmol/L Normal 3.3-5.1 [facility] Comment on above: Performed By: #### L 100.0100, L501.5200, L500.4050 ####[facility] [address] [place], [address] Sodium [Moles/Vol] 139 mmol/L Normal 133-145 [facility] Comment on above: Performed By: #### L 100.0100, L501.5200, L500.4050 ####[facility] [address] [place], [address] T PROT 7.2 g/dL Normal 5.9-8.4 [facility] Comment on above: Performed By: #### L 100.0100, L501.5200, L500.4050 ####[facility] [address] [place], [address] Urea nitrogen [Mass/Vol] 19 mg/dL Normal 4-19 [facility] Comment on above: Performed By: #### L 100.0100, L501.5200, L500.4050 ####[facility] [address] [place], [address] Magnesiumon 12-20-2024 Magnesium [Mass/Vol] 2.2 mg/dL Normal 1.5-2.2 [facility] Comment on above: Performed By: #### L 100.0100, L501.5200, L500.4050 ####[facility] [address] [place], [address] Oncology Visit Reporton 03-0 Oncology Visit Report Normal [facility] CBC W/Diff, Automatedon - Absolute Lymph 0.53 X10 3/uL Low 0.83-4.51 [facility] Comment on above: Performed By: #### L 501.5200, L500.4050, L100.0100 ####[facility] [address] [place], [address] Absolute Neut 4.3 X10 3/uL Normal 2.0-7.7 [facility] Comment on above: Performed By: #### L 501.5200, L500.4050, L100.0100 ####[facility] [address] [place], [address] Basophils/100 WBC (Bld) 1.2 % High 0-1 [facility] Comment on above: Performed By: #### L 501.5200, L500.4050, L100.0100 ####[facility] [address] [place], [address] Eosinophils/100 WBC (Bld) 3.3 % Normal 0-5 [facility] Comment on above: Performed By: #### L 501.5200, L500.4050, L100.0100 ####[facility] [address] [place], [address] Erythrocyte distribution width (RBC) [Ratio] 17.5 % High 11.6-14.6 [facility] Comment on above: Performed By: #### L 501.5200, L500.4050, L100.0100 ####[facility] [address] [place], [address] Hematocrit (Bld) [Volume fraction] 33.6 % Low 40-54 [facility] Comment on above: Performed By: #### L 501.5200, L500.4050, L100.0100 ####[facility] [address] [place], [address] Hemoglobin (Bld) [Mass/Vol] 11.5 g/dL Low 13.0-16.5 [facility] Comment on above: Performed By: #### L 501.5200, L500.4050, L100.0100 ####[facility] [address] [place], [address] IG% 0.500 Normal 0.0-0.9 [facility] Comment on above: Result Comment: IG% - Immature Granulocytes (promyelocytes, myelocytes andmetamyelocytes) > 1% indicates that a LEFT SHIFT is Present. Performed By: #### L 501.5200, L500.4050, L100.0100 ####[facility] [address] [place], [address] Lymphocytes/100 WBC (Bld) 8.8 % Low 19-41 [facility] Comment on above: Performed By: #### L 501.5200, L500.4050, L100.0100 ####[facility] [address] [place], [address] MCH (RBC) [Entitic mass] 31.5 pg Normal 27.0-32.0 [facility] Comment on above: Performed By: #### L 501.5200, L500.4050, L100.0100 ####[facility] [address] [place], [address] MCHC (RBC) [Mass/Vol] 34.2 g/dL Normal 32-36 [facility] Comment on above: Performed By: #### L 501.5200, L500.4050, L100.0100 ####[facility] [address] [place], [address] MCV (RBC) [Entitic vol] 92.1 fL Normal 80-94 [facility] Comment on above: Performed By: #### L 501.5200, L500.4050, L100.0100 ####[facility] [address] [place], [address] Monocytes/100 WBC (Bld) 14.8 % High 0-10 [facility] Comment on above: Performed By: #### L 501.5200, L500.4050, L100.0100 ####[facility] [address] [place], [address] Neutrophils/100 WBC (Bld) 71.4 % High 47-70 [facility] Comment on above: Performed By: #### L 501.5200, L500.4050, L100.0100 ####[facility] [address] [place], [address] Nucleated RBC (Bld) [#/Vol] 0 10*3/uL Normal 0-5 [facility] Comment on above: Performed By: #### L 501.5200, L500.4050, L100.0100 ####[facility] [address] [place], [address] Platelet mean volume (Bld) [Entitic vol] 8.7 fL Normal 6.2-12.0 [facility] Comment on above: Performed By: #### L 501.5200, L500.4050, L100.0100 ####[facility] [address] [place], [address] Platelets (Bld) [#/Vol] 144 10*3/uL Low 150-450 [facility] Comment on above: Performed By: #### L 501.5200, L500.4050, L100.0100 ####[facility] [address] [place], [address] RBC (Bld) [#/Vol] 3.65 10*6/uL Low 4.6-6.2 [facility] Comment on above: Performed By: #### L 501.5200, L500.4050, L100.0100 ####[facility] [address] [place], [address] RDW SD 54.5 fl High 35.1-43.9 [facility] Comment on above: Performed By: #### L 501.5200, L500.4050, L100.0100 ####[facility] [address] [place], [address] WBC (Bld) [#/Vol] 6.0 10*3/uL Normal 4.4-11.0 [facility] Comment on above: Performed By: #### L 501.5200, L500.4050, L100.0100 ####[facility] [address] [place], [address] Comprehensive Metabolic Prof ilon 12-06-2024 Albumin [Mass/Vol] 2.9 g/dL Low 3.2-5.0 [facility] Comment on above: Performed By: #### L 501.5200, L500.4050, L100.0100 ####[facility] [address] [place], [address] Albumin/Globulin [Mass ratio] 0.7 {ratio} Low 0.9-2.4 [facility] Comment on above: Performed By: #### L 501.5200, L500.4050, L100.0100 ####[facility] [address] [place], [address] ALK P 101 U/L Normal 45-117 [facility] Comment on above: Performed By: #### L 501.5200, L500.4050, L100.0100 ####[facility] [address] [place], [address] ALT [Catalytic activity/Vol] 37 U/L Normal 16-61 [facility] Comment on above: Performed By: #### L 501.5200, L500.4050, L100.0100 ####[facility] [address] [place], [id number] AST [Catalytic activity/Vol] 35 U/L Normal 15-37 [facility] Comment on above: Performed By: #### L 501.5200, L500.4050, L100.0100 ####[facility] [address] [place], [address] Bilirubin [Mass/Vol] 0.40 mg/dL Normal 0.20-1.00 [facility] Comment on above: Result Comment: For patients on eltrombopag therapy, use of Dimension [place] TBIL is not recommended. Performed By: #### L 501.5200, L500.4050, L100.0100 ####[facility] [address] [place], [id number] BUN/CRE 15.1 RATIO Normal 10-20 [facility] Comment on above: Performed By: #### L 501.5200, L500.4050, L100.0100 ####[facility] [address] [place], [id number] CA,Total 9.4 mg/dL Normal 8.5-10.1 [facility] Comment on above: Performed By: #### L 501.5200, L500.4050, L100.0100 ####[facility] [address] [place], [address] Chloride [Moles/Vol] 108 mmol/L High 98-107 [facility] Comment on above: Performed By: #### L 501.5200, L500.4050, L100.0100 ####[facility] [address] [place], [address] CO2 [Moles/Vol] 28.0 mmol/L Normal 21.0-32.0 [facility] Comment on above: Performed By: #### L 501.5200, L500.4050, L100.0100 ####[facility] [address] [place], [address] Creatinine [Mass/Vol] 1.39 mg/dL High 0.70-1.30 [facility] Comment on above: Result Comment: The validity of the calculated GFR GFRAA in patients over70 years has not been determined. Clinical correlation isessential. Performed By: #### L 501.5200, L500.4050, L100.0100 ####[facility] [address] [place], [address] ECRCL 44.71 ml/min Normal [facility] Comment on above: Performed By: #### L 501.5200, L500.4050, L100.0100 ####[facility] [address] [place], [address] EST GFR - AA 67 mL/min Normal >60 [facility] Comment on above: Result Comment: Afri can [place]ran GFR Calc Performed By: #### L 501.5200, L500.4050, L100.0100 ####[facility] [address] [place], [address] GAP 7 Normal 5-15 [facility] Comment on above: Performed By: #### L 501.5200, L500.4050, L100.0100 ####[facility] [address] [place], [address] GFR/1.73 sq M.predicted among non-blacks MDRD (S/P/Bld) [Vol rate/Area] 56 mL/min/{1.73_m2} Low >60 [facility] Comment on above: Result Comment: Non- GFR Calc Performed By: #### L 501.5200, L500.4050, L100.0100 ####[facility] [address] [place], [address] Globulin (S) [Mass/Vol] 4.3 g/dL High 2.2-4.2 [facility] Comment on above: Performed By: #### L 501.5200, L500.4050, L100.0100 ####[facility] [address] [place], [address] Glucose [Mass/Vol] 83 mg/dL Normal 74-106 [facility] Comment on above: Performed By: #### L 501.5200, L500.4050, L100.0100 ####[facility] [address] [place], [address] Potassium [Moles/Vol] 3.4 mmol/L Low 3.5-5.1 [facility] Comment on above: Performed By: #### L 501.5200, L500.4050, L100.0100 ####[facility] [address] [place], [address] Sodium [Moles/Vol] 142 mmol/L Normal 136-145 [facility] Comment on above: Performed By: #### L 501.5200, L500.4050, L100.0100 ####[facility] [address] [place], [address] T PROT 7.2 g/dL Normal 6.4-8.2 [facility] Comment on above: Performed By: #### L 501.5200, L500.4050, L100.0100 ####[facility] [address] [place], [address] Urea nitrogen [Mass/Vol] 21 mg/dL High 7-18 [facility] Comment on above: Performed By: #### L 501.5200, L500.4050, L100.0100 ####[facility] [address] [place], [address] Magnesiumon 12-06-2024 Magnesium [Mass/Vol] 2.3 mg/dL Normal 1.6-2.6 [facility] Comment on above: Performed By: #### L 501.5200, L500.4050, L100.0100 ####[facility] [address] [place], [address] Oncology Visit Reporton 11-20 Oncology Visit Report Normal [facility] Urine Cultureon 11-24-2024 URC Normal [facility] Comment on above: Performed By: #### L 400.2010, M100.2200 ####[facility] [address] [place], [address] CBC W/Diff, Automatedon Absolute Lymph 0.48 X10 3/uL Low 0.83-4.51 [facility] Comment on above: Performed By: #### L 100.0100, L501.5200, L500.4050 ####[facility] [address] [place], [address] Absolute Neut 4.0 X10 3/uL Normal 2.0-7.7 [facility] Comment on above: Performed By: #### L 100.0100, L501.5200, L500.4050 ####[facility] [address] [place], [address] Basophils/100 WBC (Bld) 0.9 % Normal 0-1 [facility] Comment on above: Performed By: #### L 100.0100, L501.5200, L500.4050 ####[facility] [address] [place], [address] Eosinophils/100 WBC (Bld) 3.6 % Normal 0-5 [facility] Comment on above: Performed By: #### L 100.0100, L501.5200, L500.4050 ####[facility] [address] [place], [address] Erythrocyte distribution width (RBC) [Ratio] 16.2 % High 11.6-14.6 [facility] Comment on above: Performed By: #### L 100.0100, L501.5200, L500.4050 ####[facility] [address] [place], [address] Hematocrit (Bld) [Volume fraction] 32.9 % Low 40-54 [facility] Comment on above: Performed By: #### L 100.0100, L501.5200, L500.4050 ####[facility] [address] [place], [address] Hemoglobin (Bld) [Mass/Vol] 10.9 g/dL Low 13.0-16.5 [facility] Comment on above: Performed By: #### L 100.0100, L501.5200, L500.4050 ####[facility] [address] [place], [address] IG% 0.800 Normal 0.0-0.9 [facility] Comment on above: Result Comment: IG% - Immature Granulocytes (promyelocytes, myelocytes andmetamyelocytes) > 1% indicates that a LEFT SHIFT is Present. Performed By: #### L 100.0100, L501.5200, L500.4050 ####[facility] [address] [place], [address] Lymphocytes/100 WBC (Bld) 9.0 % Low 19-41 [facility] Comment on above: Performed By: #### L 100.0100, L501.5200, L500.4050 ####[facility] [address] [place], [address] MCH (RBC) [Entitic mass] 30.5 pg Normal 27.0-32.0 [facility] Comment on above: Performed By: #### L 100.0100, L501.5200, L500.4050 ####[facility] [address] [place], [address] MCHC (RBC) [Mass/Vol] 33.1 g/dL Normal 32-36 [facility] Comment on above: Performed By: #### L 100.0100, L501.5200, L500.4050 ####[facility] [address] [place], [address] MCV (RBC) [Entitic vol] 92.2 fL Normal 80-94 [facility] Comment on above: Performed By: #### L 100.0100, L501.5200, L500.4050 ####[facility] [address] [place], [address] Monocytes/100 WBC (Bld) 10.9 % High 0-10 [facility] Comment on above: Performed By: #### L 100.0100, L501.5200, L500.4050 ####[facility] [address] [place], [address] Neutrophils/100 WBC (Bld) 74.8 % High 47-70 [facility] Comment on above: Performed By: #### L 100.0100, L501.5200, L500.4050 ####[facility] [address] [place], [address] Nucleated RBC (Bld) [#/Vol] 0 10*3/uL Normal 0-5 [facility] Comment on above: Performed By: #### L 100.0100, L501.5200, L500.4050 ####[facility] [address] [place], [address] Platelet mean volume (Bld) [Entitic vol] 8.0 fL Normal 6.2-12.0 [facility] Comment on above: Performed By: #### L 100.0100, L501.5200, L500.4050 ####[facility] [address] [place], [address] Platelets (Bld) [#/Vol] 272 10*3/uL Normal 150-450 [facility] Comment on above: Performed By: #### L 100.0100, L501.5200, L500.4050 ####[facility] [address] [place], [address] RBC (Bld) [#/Vol] 3.57 10*6/uL Low 4.6-6.2 [facility] Comment on above: Performed By: #### L 100.0100, L501.5200, L500.4050 ####[facility] [address] [place], [address] RDW SD 54.3 fl High 35.1-43.9 [facility] Comment on above: Performed By: #### L 100.0100, L501.5200, L500.4050 ####[facility] [address] [place], [id number] WBC (Bld) [#/Vol] 5.3 10*3/uL Normal 4.4-11.0 [facility] Comment on above: Performed By: #### L 100.0100, L501.5200, L500.4050 ####[facility] [address] [place], [id number] Comprehensive Metabolic Prof coon 11-22-2024 Albumin [Mass/Vol] 2.9 g/dL Low 3.2-5.0 [facility] Comment on above: Performed By: #### L 100.0100, L501.5200, L500.4050 ####[facility] [address] [place], [id number] Albumin/Globulin [Mass ratio] 0.7 {ratio} Low 0.9-2.4 [facility] Comment on above: Performed By: #### L 100.0100, L501.5200, L500.4050 ####[facility] [address] [place], [id number] ALK P 89 U/L Normal 45-117 [facility] Comment on above: Performed By: #### L 100.0100, L501.5200, L500.4050 ####[facility] [address] [place], [id number] ALT [Catalytic activity/Vol] 17 U/L Normal 16-61 [facility] Comment on above: Performed By: #### L 100.0100, L501.5200, L500.4050 ####[facility] [address] [place], [id number] AST [Catalytic activity/Vol] 12 U/L Low 15-37 [facility] Comment on above: Performed By: #### L 100.0100, L501.5200, L500.4050 ####[facility] [address] [place], [address] Bilirubin [Mass/Vol] 0.30 mg/dL Normal 0.20-1.00 [facility] Comment on above: Result Comment: For patients on eltrombopag therapy, use of Dimension [place] TBIL is not recommended. Performed By: #### L 100.0100, L501.5200, L500.4050 ####[facility] [address] [place], [address] BUN/CRE 14.3 RATIO Normal 10-20 [facility] Comment on above: Performed By: #### L 100.0100, L501.5200, L500.4050 ####[facility] [address] [place], [address] CA,Total 9.0 mg/dL Normal 8.5-10.1 [facility] Comment on above: Performed By: #### L 100.0100, L501.5200, L500.4050 ####[facility] [address] [place], [address] Chloride [Moles/Vol] 108 mmol/L High 98-107 [facility] Comment on above: Performed By: #### L 100.0100, L501.5200, L500.4050 ####[facility] [address] [place], [address] CO2 [Moles/Vol] 28.0 mmol/L Normal 21.0-32.0 [facility] Comment on above: Performed By: #### L 100.0100, L501.5200, L500.4050 ####[facility] [address] [place], [address] Creatinine [Mass/Vol] 1.61 mg/dL High 0.70-1.30 [facility] Comment on above: Result Comment: The validity of the calculated GFR GFRAA in patients over70 years has not been determined. Clinical correlation isessential. Performed By: #### L 100.0100, L501.5200, L500.4050 ####[facility] [address] [place], [address] ECRCL 38.64 ml/min Normal [facility] Comment on above: Performed By: #### L 100.0100, L501.5200, L500.4050 ####[facility] [address] [place], [address] EST GFR - AA 57 mL/min Low >60 [facility] Comment on above: Result Comment: Afri can Andorran GFR Calc Performed By: #### L 100.0100, L501.5200, L500.4050 ####[facility] [address] [place], [address] GAP 4 Low 5-15 [facility] Comment on above: Performed By: #### L 100.0100, L501.5200, L500.4050 ####[facility] [address] [place], [address] GFR/1.73 sq M.predicted among non-blacks MDRD (S/P/Bld) [Vol rate/Area] 47 mL/min/{1.73_m2} Low >60 [facility] Comment on above: Result Comment: Non- GFR Calc Performed By: #### L 100.0100, L501.5200, L500.4050 ####[facility] [address] [place], [address] Globulin (S) [Mass/Vol] 4.3 g/dL High 2.2-4.2 [facility] Comment on above: Performed By: #### L 100.0100, L501.5200, L500.4050 ####[facility] [address] [place], [address] Glucose [Mass/Vol] 91 mg/dL Normal 74-106 [facility] Comment on above: Performed By: #### L 100.0100, L501.5200, L500.4050 ####[facility] [address] [place], [address] Potassium [Moles/Vol] 3.8 mmol/L Normal 3.5-5.1 [facility] Comment on above: Performed By: #### L 100.0100, L501.5200, L500.4050 ####[facility] [address] [place], [address] Sodium [Moles/Vol] 140 mmol/L Normal 136-145 [facility] Comment on above: Performed By: #### L 100.0100, L501.5200, L500.4050 ####[facility] [address] [place], [address] T PROT 7.2 g/dL Normal 6.4-8.2 [facility] Comment on above: Performed By: #### L 100.0100, L501.5200, L500.4050 ####[facility] [address] [place], [address] Urea nitrogen [Mass/Vol] 23 mg/dL High 7-18 [facility] Comment on above: Performed By: #### L 100.0100, L501.5200, L500.4050 ####[facility] [address] [place], [address] Magnesiumon 11-22-2024 Magnesium [Mass/Vol] 2.2 mg/dL Normal 1.6-2.6 [facility] Comment on above: Performed By: #### L 100.0100, L501.5200, L500.4050 ####[facility] [address] [place], [address] Oncology Visit Reporton Oncology Visit Report Normal [facility] Urinalysis, Routine (Dipstic k)on 11-22-2024 BILIRUBIN URINE Negative Normal Negative [facility] Comment on above: Order Comment: DERECK TER SPECIMEN Performed By: #### L 400.2010, ####[facility] [address] [place], [address] Clarity (U) Sl. Cloudy Normal Clear [facility] Comment on above: Order Comment: DERECK TER SPECIMEN Performed By: #### L 400.2010, ####[facility] [address] [place], [address] Color (U) Yellow Normal Yellow [facility] Comment on above: Order Comment: DERECK TER SPECIMEN Performed By: #### L 400.2010, ####[facility] [address] [place], [address] GLUCOSE, UR Normal Normal Normal [facility] Comment on above: Order Comment: DERECK TER SPECIMEN Performed By: #### L 400.2010, ####[facility] [address] [place], [address] KETONE UR Negative Normal Negative [facility] Comment on above: Order Comment: DERECK TER SPECIMEN Performed By: #### L 400.2010, ####[facility] [address] [place], [address] LEUK ESTERASE 500 /ul Abnormal Negative [facility] Comment on above: Order Comment: DERECK TER SPECIMEN Performed By: #### L 400.2010, ####[facility] [address] [place], [address] Nitrite Ql (U) Positive Abnormal Negative [facility] Comment on above: Order Comment: DERCEK TER SPECIMEN Performed By: #### L 400.2010, ####[facility] [address] [place], [address] OCCULT BLOOD-UR 50 /ul Abnormal Negative [facility] Comment on above: Order Comment: DERECK TER SPECIMEN Performed By: #### L 400.2010, ####[facility] [address] [place], [address] pH UR 8.0 Normal 5.0 - 8.0 [facility] Comment on above: Order Comment: DERECK TER SPECIMEN Performed By: #### L 400.2010, ####[facility] [address] [place], [address] PROT DIPSTX 100 mg/dl Abnormal Negative [facility] Comment on above: Order Comment: DERECK TER SPECIMEN Performed By: #### L 400.2010, ####[facility] [address] [place], [address] SP.GR. DIPSTX 1.010 Normal 1.002-1.03 0 [facility] Comment on above: Order Comment: DERECK TER SPECIMEN Performed By: #### L 400.2010, ####[facility] [address] [place], [address] UROBILI Normal Normal Normal [facility] Comment on above: Order Comment: DERECK TER SPECIMEN Performed By: #### L 400.2010, ####[facility] [address] [place], [address] Urine cultureOrdered By: Duy Mercedes on 11-22-2024 Bacteria identified Cx Nom (U) Proteus hauseri Abnormal [facility] NEPHROSTOMY DRAIN CHANGEon 0 11-15-2024 NEPHROSTOMY DRAIN [...] medication(s), I spent 52 minutes of continuous zekv-yk-cmvo time with the patient. COMPARISON: CT dated [...] during all (more content not included)... Normal [facility] ONC Echo Completeon 11-10-19 25 ONC Echo Complete Normal [facility] Carcinoembryonic Antigenon 0 11-09-2024 CEA 1.7 ng/mL Normal 0.0-4.7 [facility] Comment on above: Order Comment: PLEAS E ADD TO BLOOD IN THE LAB. THANK YOU!! Result Comment: Nons mokers <3.9 Smokers <5.6[employer] Electrochemiluminescence Immunoassay(ECLIA)Values obtained with different assay methods or kitscannot be used interchangeably. Results cannot beinterpreted as absolute evidence of the presence orabsence of malignant disease.Performed at: [place] [id number] Director: Javid Diehl PhD, Phone: [phone] Performed By: #### L 3409.4022 ####[facility] [address] [facility] [place], [address] CBC W/Diff, Automatedon 10-21 Absolute Lymph 0.40 X10 3/uL Low 0.83-4.51 [facility] Comment on above: Performed By: #### L 501.5200, L100.0100, L500.4050 ####[facility] [address] [place], [address] Absolute Neut 6.4 X10 3/uL Normal 2.0-7.7 [facility] Comment on above: Performed By: #### L 501.5200, L100.0100, L500.4050 ####[facility] [address] [place], [address] Basophils/100 WBC (Bld) 0.6 % Normal 0-1 [facility] Comment on above: Performed By: #### L 501.5200, L100.0100, L500.4050 ####[facility] [address] [place], [address] Eosinophils/100 WBC (Bld) 4.4 % Normal 0-5 [facility] Comment on above: Performed By: #### L 501.5200, L100.0100, L500.4050 ####[facility] [address] [place], [address] Erythrocyte distribution width (RBC) [Ratio] 16.9 % High 11.6-14.6 [facility] Comment on above: Performed By: #### L 501.5200, L100.0100, L500.4050 ####[facility] [address] [place], [address] Hematocrit (Bld) [Volume fraction] 32.5 % Low 40-54 [facility] Comment on above: Performed By: #### L 501.5200, L100.0100, L500.4050 ####[facility] [address] [place], [address] Hemoglobin (Bld) [Mass/Vol] 10.6 g/dL Low 13.0-16.5 [facility] Comment on above: Performed By: #### L 501.5200, L100.0100, L500.4050 ####[facility] [address] [place], [address] IG% 0.600 Normal 0.0-0.9 [facility] Comment on above: Result Comment: IG% - Immature Granulocytes (promyelocytes, myelocytes andmetamyelocytes) > 1% indicates that a LEFT SHIFT is Present. Performed By: #### L 501.5200, L100.0100, L500.4050 ####[facility] [address] [place], [address] Lymphocytes/100 WBC (Bld) 5.2 % Low 19-41 [facility] Comment on above: Performed By: #### L 501.5200, L100.0100, L500.4050 ####[facility] [address] [place], [address] MCH (RBC) [Entitic mass] 30.3 pg Normal 27.0-32.0 [facility] Comment on above: Performed By: #### L 501.5200, L100.0100, L500.4050 ####[facility] [address] [place], [address] MCHC (RBC) [Mass/Vol] 32.6 g/dL Normal 32-36 [facility] Comment on above: Performed By: #### L 501.5200, L100.0100, L500.4050 ####[facility] [address] [place], [address] MCV (RBC) [Entitic vol] 92.9 fL Normal 80-94 [facility] Comment on above: Performed By: #### L 501.5200, L100.0100, L500.4050 ####[facility] [address] [place], [address] Monocytes/100 WBC (Bld) 6.8 % Normal 0-10 [facility] Comment on above: Performed By: #### L 501.5200, L100.0100, L500.4050 ####[facility] [address] [place], [address] Neutrophils/100 WBC (Bld) 82.4 % High 47-70 [facility] Comment on above: Performed By: #### L 501.5200, L100.0100, L500.4050 ####[facility] [address] [place], [address] Nucleated RBC (Bld) [#/Vol] 0 10*3/uL Normal 0-5 [facility] Comment on above: Performed By: #### L 501.5200, L100.0100, L500.4050 ####[facility] [address] [place], [address] Platelet mean volume (Bld) [Entitic vol] 8.3 fL Normal 6.2-12.0 [facility] Comment on above: Performed By: #### L 501.5200, L100.0100, L500.4050 ####[facility] [address] [place], [address] Platelets (Bld) [#/Vol] 273 10*3/uL Normal 150-450 [facility] Comment on above: Performed By: #### L 501.5200, L100.0100, L500.4050 ####[facility] [address] [place], [address] RBC (Bld) [#/Vol] 3.50 10*6/uL Low 4.6-6.2 [facility] Comment on above: Performed By: #### L 501.5200, L100.0100, L500.4050 ####[facility] [address] [place], [address] RDW SD 57.6 fl High 35.1-43.9 [facility] Comment on above: Performed By: #### L 501.5200, L100.0100, L500.4050 ####[facility] [address] [place], [address] WBC (Bld) [#/Vol] 7.8 10*3/uL Normal 4.4-11.0 [facility] Comment on above: Performed By: #### L 501.5200, L100.0100, L500.4050 ####[facility] [address] [place], [address] Comprehensive Metabolic Prof ilon 11-08-2024 Albumin [Mass/Vol] 3.0 g/dL Low 3.2-5.0 [facility] Comment on above: Performed By: #### L 501.5200, L100.0100, L500.4050 ####[facility] [address] [place], [address] Albumin/Globulin [Mass ratio] 0.7 {ratio} Low 0.9-2.4 [facility] Comment on above: Performed By: #### L 501.5200, L100.0100, L500.4050 ####[facility] [address] [place], [address] ALK P 86 U/L Normal 45-117 [facility] Comment on above: Performed By: #### L 501.5200, L100.0100, L500.4050 ####[facility] [address] [place], [address] ALT [Catalytic activity/Vol] 13 U/L Low 16-61 [facility] Comment on above: Performed By: #### L 501.5200, L100.0100, L500.4050 ####[facility] [address] [place], [address] AST [Catalytic activity/Vol] 14 U/L Low 15-37 [facility] Comment on above: Performed By: #### L 501.5200, L100.0100, L500.4050 ####[facility] [address] [place], [address] Bilirubin [Mass/Vol] 0.40 mg/dL Normal 0.20-1.00 [facility] Comment on above: Result Comment: For patients on eltrombopag therapy, use of Dimension [place] TBIL is not recommended. Performed By: #### L 501.5200, L100.0100, L500.4050 ####[facility] [address] [place], [address] BUN/CRE 23.9 RATIO High 10-20 [facility] Comment on above: Performed By: #### L 501.5200, L100.0100, L500.4050 ####[facility] [address] [place], [address] CA,Total 9.6 mg/dL Normal 8.5-10.1 [facility] Comment on above: Performed By: #### L 501.5200, L100.0100, L500.4050 ####[facility] [address] [place], [address] Chloride [Moles/Vol] 106 mmol/L Normal 98-107 [facility] Comment on above: Performed By: #### L 501.5200, L100.0100, L500.4050 ####[facility] [address] [place], [address] CO2 [Moles/Vol] 30.0 mmol/L Normal 21.0-32.0 [facility] Comment on above: Performed By: #### L 501.5200, L100.0100, L500.4050 ####[facility] [address] [place], [address] Creatinine [Mass/Vol] 1.34 mg/dL High 0.70-1.30 [facility] Comment on above: Result Comment: The validity of the calculated GFR GFRAA in patients over70 years has not been determined. Clinical correlation isessential. Performed By: #### L 501.5200, L100.0100, L500.4050 ####[facility] [address] [place], [address] ECRCL 45.56 ml/min Normal [facility] Comment on above: Performed By: #### L 501.5200, L100.0100, L500.4050 ####[facility] [address] [place], [address] EST GFR - AA 70 mL/min Normal >60 [facility] Comment on above: Result Comment: Afri can [place]ran GFR Calc Performed By: #### L 501.5200, L100.0100, L500.4050 ####[facility] [address] [place], [address] GAP 4 Low 5-15 [facility] Comment on above: Performed By: #### L 501.5200, L100.0100, L500.4050 ####[facility] [address] [place], [address] GFR/1.73 sq M.predicted among non-blacks MDRD (S/P/Bld) [Vol rate/Area] 58 mL/min/{1.73_m2} Low >60 [facility] Comment on above: Result Comment: Non- GFR Calc Performed By: #### L 501.5200, L100.0100, L500.4050 ####[facility] [address] [place], [address] Globulin (S) [Mass/Vol] 4.4 g/dL High 2.2-4.2 [facility] Comment on above: Performed By: #### L 501.5200, L100.0100, L500.4050 ####[facility] [address] [place], [address] Glucose [Mass/Vol] 96 mg/dL Normal 74-106 [facility] Comment on above: Performed By: #### L 501.5200, L100.0100, L500.4050 ####[facility] [address] [place], [address] Potassium [Moles/Vol] 3.4 mmol/L Low 3.5-5.1 [facility] Comment on above: Performed By: #### L 501.5200, L100.0100, L500.4050 ####[facility] [address] [place], [address] Sodium [Moles/Vol] 140 mmol/L Normal 136-145 [facility] Comment on above: Performed By: #### L 501.5200, L100.0100, L500.4050 ####[facility] [address] [place], [address] T PROT 7.4 g/dL Normal 6.4-8.2 [facility] Comment on above: Performed By: #### L 501.5200, L100.0100, L500.4050 ####[facility] [address] [place], [address] Urea nitrogen [Mass/Vol] 32 mg/dL High 7-18 [facility] Comment on above: Performed By: #### L 501.5200, L100.0100, L500.4050 ####[facility] [address] [place], [address] Magnesiumon 11-08-2024 Magnesium [Mass/Vol] 2.1 mg/dL Normal 1.6-2.6 [facility] Comment on above: Performed By: #### L 501.5200, L100.0100, L500.4050 ####[facility] [address] [place], [address] Oncology Visit Reporton 10-21 Oncology Visit Report Normal [facility] Serum or plasma thyroid stim ulating hormone (TSH) measurement (units/volume)Ordered By: Enrique Romero on 11-08-2024 TSH Qn 2.080 uIU/mL 0.358-3.74 0 [facility] Thyroid Stim Hormone (TSH)on 11-08-2024 TSH 2.080 uIU/mL Normal 0.358-3.74 0 [facility] [facility] Comment on above: Performed By: #### L 501.9520 ####[facility] [address] [place], [id number] Cardiology Visit Reporton Cardiology Visit Report Normal [facility] CBC W/Diff, Automatedon 10-20 Absolute Lymph 0.49 X10 3/uL Low 0.83-4.51 [facility] Comment on above: Performed By: #### L 100.0100, L501.5200, L500.4050 ####[facility] [address] [place], [id number] Absolute Neut 4.5 X10 3/uL Normal 2.0-7.7 [facility] Comment on above: Performed By: #### L 100.0100, L501.5200, L500.4050 ####[facility] [address] [place], [address] Basophils/100 WBC (Bld) 1.4 % High 0-1 [facility] Comment on above: Performed By: #### L 100.0100, L501.5200, L500.4050 ####[facility] [address] [place], [address] Eosinophils/100 WBC (Bld) 4.1 % Normal 0-5 [facility] Comment on above: Performed By: #### L 100.0100, L501.5200, L500.4050 ####[facility] [address] [place], [address] Erythrocyte distribution width (RBC) [Ratio] 17.3 % High 11.6-14.6 [facility] Comment on above: Performed By: #### L 100.0100, L501.5200, L500.4050 ####[facility] [address] [place], [address] Hematocrit (Bld) [Volume fraction] 32.3 % Low 40-54 [facility] Comment on above: Performed By: #### L 100.0100, L501.5200, L500.4050 ####[facility] [address] [place], [address] Hemoglobin (Bld) [Mass/Vol] 10.5 g/dL Low 13.0-16.5 [facility] Comment on above: Performed By: #### L 100.0100, L501.5200, L500.4050 ####[facility] [address] [place], [address] IG% 0.900 Normal 0.0-0.9 [facility] Comment on above: Result Comment: IG% - Immature Granulocytes (promyelocytes, myelocytes andmetamyelocytes) > 1% indicates that a LEFT SHIFT is Present. Performed By: #### L 100.0100, L501.5200, L500.4050 ####[facility] [address] [place], [address] Lymphocytes/100 WBC (Bld) 8.4 % Low 19-41 [facility] Comment on above: Performed By: #### L 100.0100, L501.5200, L500.4050 ####[facility] [address] [place], [address] MCH (RBC) [Entitic mass] 30.2 pg Normal 27.0-32.0 [facility] Comment on above: Performed By: #### L 100.0100, L501.5200, L500.4050 ####[facility] [address] [place], [id number] MCHC (RBC) [Mass/Vol] 32.5 g/dL Normal 32-36 [facility] Comment on above: Performed By: #### L 100.0100, L501.5200, L500.4050 ####[facility] [address] [place], [address] MCV (RBC) [Entitic vol] 92.8 fL Normal 80-94 [facility] Comment on above: Performed By: #### L 100.0100, L501.5200, L500.4050 ####[facility] [address] [place], [id number] Monocytes/100 WBC (Bld) 8.4 % Normal 0-10 [facility] Comment on above: Performed By: #### L 100.0100, L501.5200, L500.4050 ####[facility] [address] [place], [address] Neutrophils/100 WBC (Bld) 76.8 % High 47-70 [facility] Comment on above: Performed By: #### L 100.0100, L501.5200, L500.4050 ####[facility] [address] [place], [address] Nucleated RBC (Bld) [#/Vol] 0 10*3/uL Normal 0-5 [facility] Comment on above: Performed By: #### L 100.0100, L501.5200, L500.4050 ####[facility] [address] [place], [address] Platelet mean volume (Bld) [Entitic vol] 8.2 fL Normal 6.2-12.0 [facility] Comment on above: Performed By: #### L 100.0100, L501.5200, L500.4050 ####[facility] [address] [place], [address] Platelets (Bld) [#/Vol] 297 10*3/uL Normal 150-450 [facility] Comment on above: Performed By: #### L 100.0100, L501.5200, L500.4050 ####[facility] [address] [place], [address] RBC (Bld) [#/Vol] 3.48 10*6/uL Low 4.6-6.2 [facility] Comment on above: Performed By: #### L 100.0100, L501.5200, L500.4050 ####[facility] [address] [place], [id number] RDW SD 58.8 fl High 35.1-43.9 [facility] Comment on above: Performed By: #### L 100.0100, L501.5200, L500.4050 ####[facility] [address] [place], [id number] WBC (Bld) [#/Vol] 5.9 10*3/uL Normal 4.4-11.0 [facility] Comment on above: Performed By: #### L 100.0100, L501.5200, L500.4050 ####[facility] [address] [place], [address] Comprehensive Metabolic Prof ilon 11-03-2024 Albumin [Mass/Vol] 3.1 g/dL Low 3.2-5.0 [facility] Comment on above: Performed By: #### L 100.0100, L501.5200, L500.4050 ####[facility] [address] [place], [address] Albumin/Globulin [Mass ratio] 0.7 {ratio} Low 0.9-2.4 [facility] Comment on above: Performed By: #### L 100.0100, L501.5200, L500.4050 ####[facility] [address] [place], [address] ALK P 91 U/L Normal 45-117 [facility] Comment on above: Performed By: #### L 100.0100, L501.5200, L500.4050 ####[facility] [address] [place], [address] ALT [Catalytic activity/Vol] 15 U/L Low 16-61 [facility] Comment on above: Performed By: #### L 100.0100, L501.5200, L500.4050 ####[facility] [address] [place], [address] AST [Catalytic activity/Vol] 12 U/L Low 15-37 [facility] Comment on above: Performed By: #### L 100.0100, L501.5200, L500.4050 ####[facility] [address] [place], [address] Bilirubin [Mass/Vol] 0.30 mg/dL Normal 0.20-1.00 [facility] Comment on above: Result Comment: For patients on eltrombopag therapy, use of Dimension [place] TBIL is not recommended. Performed By: #### L 100.0100, L501.5200, L500.4050 ####[facility] [address] [place], [id number] BUN/CRE 26.4 RATIO High 10-20 [facility] Comment on above: Performed By: #### L 100.0100, L501.5200, L500.4050 ####[facility] [address] [place], [id number] CA,Total 9.5 mg/dL Normal 8.5-10.1 [facility] Comment on above: Performed By: #### L 100.0100, L501.5200, L500.4050 ####[facility] [address] [place], [address] Chloride [Moles/Vol] 106 mmol/L Normal 98-107 [facility] Comment on above: Performed By: #### L 100.0100, L501.5200, L500.4050 ####[facility] [address] [place], [address] CO2 [Moles/Vol] 29.0 mmol/L Normal 21.0-32.0 [facility] Comment on above: Performed By: #### L 100.0100, L501.5200, L500.4050 ####[facility] [address] [place], [address] Creatinine [Mass/Vol] 1.44 mg/dL High 0.70-1.30 [facility] Comment on above: Result Comment: The validity of the calculated GFR GFRAA in patients over70 years has not been determined. Clinical correlation isessential. Performed By: #### L 100.0100, L501.5200, L500.4050 ####[facility] [address] [place], [address] ECRCL 42.40 ml/min Normal [facility] Comment on above: Performed By: #### L 100.0100, L501.5200, L500.4050 ####[facility] [address] [place], [address] EST GFR - AA 65 mL/min Normal >60 [facility] Comment on above: Result Comment: Afri can Andorran GFR Calc Performed By: #### L 100.0100, L501.5200, L500.4050 ####[facility] [address] [place], [address] GAP 5 Normal 5-15 [facility] Comment on above: Performed By: #### L 100.0100, L501.5200, L500.4050 ####[facility] [address] [place], [address] GFR/1.73 sq M.predicted among non-blacks MDRD (S/P/Bld) [Vol rate/Area] 53 mL/min/{1.73_m2} Low >60 [facility] Comment on above: Result Comment: Non- GFR Calc Performed By: #### L 100.0100, L501.5200, L500.4050 ####[facility] [address] [place], [address] Globulin (S) [Mass/Vol] 4.6 g/dL High 2.2-4.2 [facility] Comment on above: Performed By: #### L 100.0100, L501.5200, L500.4050 ####[facility] [address] [place], [address] Glucose [Mass/Vol] 104 mg/dL Normal 74-106 [facility] Comment on above: Result Comment: Fast ing Glucose result from 100 to 125 mg/dLsuggests IMPAIRED HOMEOSTASIS per A.D.A. criteria. Performed By: #### L 100.0100, L501.5200, L500.4050 ####[facility] [address] [place], [address] Potassium [Moles/Vol] 3.9 mmol/L Normal 3.5-5.1 [facility] Comment on above: Performed By: #### L 100.0100, L501.5200, L500.4050 ####[facility] [address] [place], [address] Sodium [Moles/Vol] 140 mmol/L Normal 136-145 [facility] Comment on above: Performed By: #### L 100.0100, L501.5200, L500.4050 ####[facility] [address] [place], [address] T PROT 7.7 g/dL Normal 6.4-8.2 [facility] Comment on above: Performed By: #### L 100.0100, L501.5200, L500.4050 ####[facility] [address] [place], [address] Urea nitrogen [Mass/Vol] 38 mg/dL High 7-18 [facility] Comment on above: Performed By: #### L 100.0100, L501.5200, L500.4050 ####[facility] [address] [place], [address] Magnesiumon 11-03-2024 Magnesium [Mass/Vol] 2.1 mg/dL Normal 1.6-2.6 [facility] Comment on above: Performed By: #### L 100.0100, L501.5200, L500.4050 ####[facility] [address] [place], [address] Oncology Visit Reporton 10-20 Oncology Visit Report Normal [facility] CBC,PLATELETSon 10-18-2024 Erythrocyte distribution width (RBC) [Ratio] 18.0 % High 10.9 - 14.3 % [facility] Hematocrit (Bld) [Volume fraction] 24.1 % Low 39.6 - 48.8 % [facility] Hemoglobin (Bld) [Mass/Vol] 7.8 g/dL Low 13.4 - 16.8 g/dL [facility] Interpretation and review of laboratory results Abnormal [facility] MCH (RBC) [Entitic mass] 29.0 pg 26.1 - 33.3 pg [facility] MCHC (RBC) [Mass/Vol] 32.4 g/dL 31.9 - 36.5 g/dL [facility] MCV (RBC) [Entitic vol] 89.6 fL 79.0 - 94.5 fL [facility] Platelet mean volume (Bld) [Entitic vol] 9.0 fL 8.7 - 12.3 fL [facility] Platelets (Bld) [#/Vol] 340 10*3/uL High 146 - 337 K/uL [facility] RBC (Bld) [#/Vol] 2.69 10*6/uL Low [facility] WBC (Bld) [#/Vol] 14.13 10*3/uL High 3.73 - 10.10 K/uL [facility] Hematocrit (Bld) [Volume fraction] 24.1 % Low 39.6-48.8 [facility] Comment on above: Performed By: #### S URGP #### [facility] (DEFAULT) [address] [place] [address] Hemoglobin (Bld) [Mass/Vol] 7.8 g/dL Low 13.4-16.8 [facility] Comment on above: Performed By: #### S URGP #### [facility] (DEFAULT) [address] [place] [address] MCV (RBC) [Entitic vol] 89.6 fL Normal 79.0-94.5 [facility] Comment on above: Performed By: #### S URGP #### [facility] (DEFAULT) [address] [place] [address] Mean Cell Hgb 29.0 pg Normal 26.1-33.3 [facility] Comment on above: Performed By: #### S URGP #### [facility] (DEFAULT) [address] [place] [address] Mean Cell Hgb Conc 32.4 g/dL Normal 31.9-36.5 [facility] Comment on above: Performed By: #### S URGP #### [facility] (DEFAULT) [address] [place] [address] Platelet mean volume (Bld) [Entitic vol] 9.0 fL Normal 8.7-12.3 [facility] Comment on above: Performed By: #### S URGP #### [facility] (DEFAULT) [address] [place] [address] Platelets (Bld) [#/Vol] 340 10*3/uL High 146-337 [facility] Comment on above: Performed By: #### S URGP #### [facility] (DEFAULT) [address] [place] [address] RBC (Bld) [#/Vol] 2.69 10*6/uL Low 4.38-5.83 [facility] Comment on above: Performed By: #### S URGP #### [facility] (DEFAULT) [address] [place] [address] RBC Distribution 18.0 % High 10.9-14.3 [facility] Comment on above: Performed By: #### S URGP #### [facility] (DEFAULT) [address] [place] [address] WBC (Bld) [#/Vol] 14.13 10*3/uL High 3.73-10.10 [facility] Comment on above: Performed By: #### S URGP #### [facility] (DEFAULT) [address] [place] [address] CHEM 7 (LYTES,BUN,CREA,GLUC) on 10-18-2024 Anion gap [Moles/Vol] 12 mmol/L 7 - 17 mmol/L [facility] Chloride [Moles/Vol] 100 mmol/L 98 - 10 8 mmol/L [facility] CO2 [Moles/Vol] 28 mmol/L 21 - 31 mmol/L [facility] Creatinine [Mass/Vol] 1.62 mg/dL High 0.70 - 1.30 mg/dL [facility] eGFR, CKD-EPI, Male 49 Low - PINF [facility] Comment on above: Reported eGFR is bas ed on the CKD-EPI 2020 equation using creatinine, age, and sex. Glucose [Mass/Vol] 91 mg/dL 70 - 99 mg/dL [facility] Osmolality Calc [Osmolality] 287 [facility] Potassium [Moles/Vol] 3.7 mmol/L 3.5 - 5.0 mmol/L [facility] Sodium [Moles/Vol] 136 mmol/L 135 - 145 mmol/L [facility] Urea nitrogen [Mass/Vol] 21 mg/dL 7 - 25 mg/dL [facility] Urea nitrogen/Creatinine [Mass ratio] 13 mg/mg [facility] Anion gap [Moles/Vol] 12 mmol/L Normal 7-[address] [facility] Comment on above: Performed By: #### G EN #### U [facility] (DEFAULT) [address] [place] [address] Chloride [Moles/Vol] 100 mmol/L Normal 98-108 [facility] Comment on above: Performed By: #### G EN #### [facility] (DEFAULT) [address] [place] [address] CO2 [Moles/Vol] 28 mmol/L Normal 21-31 [facility] Comment on above: Performed By: #### G EN #### [facility] (DEFAULT) [address] [place] [address] Creatinine [Mass/Vol] 1.62 mg/dL High 0.70-1.[address] [facility] Comment on above: Performed By: #### G EN #### [facility] (DEFAULT) [address] [place] [address] GFR/1.73 sq M.predicted among non-blacks MDRD (S/P/Bld) [Vol rate/Area] 49 mL/min/{1.73_m2} Low >=60 [facility] Comment on above: Result Comment: Repo rted eGFR is based on the CKD-EPI 2020 equation using creatinine, age, and sex. Performed By: #### G EN #### [facility] (DEFAULT) [address] [place] [address] Glucose [Mass/Vol] 91 mg/dL Normal 70-99 [facility] Comment on above: Performed By: #### G EN #### [facility] (DEFAULT) [address] [place] [address] Osmolality [Osmolality] 287 mosm/kg Normal 278-305 [facility] Comment on above: Performed By: #### G EN #### U [facility] (DEFAULT) [address] [place] [address] Potassium [Moles/Vol] 3.7 mmol/L Normal 3.5-5.[address] [facility] Comment on above: Performed By: #### G EN #### [facility] (DEFAULT) [address] [place] [address] Sodium [Moles/Vol] 136 mmol/L Normal 135-145 [facility] Comment on above: Performed By: #### G EN #### [facility] (DEFAULT) [address] [place] [address] Urea nitrogen [Mass/Vol] 21 mg/dL Normal 7-25 [facility] Comment on above: Performed By: #### G EN #### [facility] (DEFAULT) [address] [place] [address] Urea nitrogen/Creatinine [Mass ratio] 13 mg/mg Normal [facility] Comment on above: Performed By: #### G EN #### [facility] (DEFAULT) [address] [place] [address] ECGOrdered By: Lian sheikh on 10-18-2024 [facility] Work Phone: IONIZED CALCIUM, WHOLE BLOOD on 10-18-2024 Calcium.ionized (Bld) [Moles/Vol] 4.38 mg/dL Low 4.60 - 5.30 mg/dL [facility] Interpretation and review of laboratory results Abnormal [facility] ICA 4.38 mg/dL Low 4.60-5.30 [facility] Comment on above: Performed By: #### G EN #### [facility] (DEFAULT) [address] [place] [address] MAGNESIUMon 10-18-2024 Magnesium [Mass/Vol] 1.5 mg/dL Low 1.6 - 2 .6 mg/dL [facility] Magnesium [Mass/Vol] 1.5 mg/dL Low 1.6-2.6 [facility] Comment on above: Performed By: #### G EN #### [facility] (DEFAULT) [address] [place] [address] No Panel Informationon 10-18 Interpretation and review of laboratory results Abnormal [facility] PHOSPHATE, INORGANICon 10-18 Phosphate [Mass/Vol] 2.1 mg/dL Low 2.2 - 4 .6 mg/dL [facility] Phosphorous 2.1 mg/dL Low 2.2-4.6 [facility] Comment on above: Performed By: #### G EN #### [facility] (DEFAULT) [address] [place] [address] Bacteria identified Cx Nom ( Bld)on 10-17-2024 Bacteria identified Cx Nom (Unsp spec) NO GROWTH DAY 5 OF 5 [facility] Results may be compr omised due to LOW VOLUME of the BACT\ALERT bottle UNDER 8mLs, which can be associated with decreased sensitivity. The optimal blood volume is 8-10mLs per aerobic/anaerobic blood culture bottle. [facility] CARDIAC RHYTHM (SCANNED)on 1 12-18-2023 [facility] CBC,PLATELETSon 10-17-2024 Erythrocyte distribution width (RBC) [Ratio] 14.9 % High 10.9 - 14.3 % [facility] Hematocrit (Bld) [Volume fraction] 20.5 % Low 39.6 - 48.8 % [facility] Hemoglobin (Bld) [Mass/Vol] 6.4 g/dL Critically low 13.4 - 16.8 g/dL [facility] Comment on above: This result has been called to Yesy Barrios RN by [email or web address] on 10/17/2024 02:33:07, and has been read back. Interpretation and review of laboratory results Abnormal [facility] MCH (RBC) [Entitic mass] 29.5 pg 26.1 - 33.3 pg [facility] MCHC (RBC) [Mass/Vol] 31.2 g/dL Low 31.9 - 36.5 g/dL [facility] MCV (RBC) [Entitic vol] 94.5 fL 79.0 - 94.5 fL [facility] Platelet mean volume (Bld) [Entitic vol] 9.1 fL 8.7 - 12.3 fL [facility] Platelets (Bld) [#/Vol] 299 10*3/uL 146 - 337 K/uL [facility] RBC (Bld) [#/Vol] 2.17 10*6/uL Low [facility] WBC (Bld) [#/Vol] 13.38 10*3/uL High 3.73 - 10.10 K/uL [facility] Hematocrit (Bld) [Volume fraction] 20.5 % Low 39.6-48.8 [facility] Comment on above: Performed By: #### ELEN GAMBINO, MGO #### [facility] (DEFAULT) [address] [address] Hemoglobin (Bld) [Mass/Vol] 6.4 g/dL Critically low 13.4-16.8 [facility] Comment on above: Result Comment: This result has been called to Yesy Barrios RN by [email or web address] on 10/17/2024 02:33:07, and has been read back. Performed By: #### ELEN GAMBINO, MGO #### [facility] (DEFAULT) [address] [address] MCV (RBC) [Entitic vol] 94.5 fL Normal 79.0-94.5 [facility] Comment on above: Performed By: #### ELEN GAMBINO, MGO #### [facility] (DEFAULT) [address] [address] Mean Cell Hgb 29.5 pg Normal 26.1-33.3 [facility] Comment on above: Performed By: #### ELEN GAMBINO, MGO #### [facility] (DEFAULT) [address] [place] [address] Mean Cell Hgb Conc 31.2 g/dL Low 31.9-36.5 [facility] Comment on above: Performed By: #### Claire HM7, IPB, MGO #### [facility] (DEFAULT) [address] [place] [address] Platelet mean volume (Bld) [Entitic vol] 9.1 fL Normal 8.7-12.3 [facility] Comment on above: Performed By: #### Claire HM7, IPB, MGO #### [facility] (DEFAULT) [address] [place] [address] Platelets (Bld) [#/Vol] 299 10*3/uL Normal 146-337 [facility] Comment on above: Performed By: #### Claire HMRosemary, IPB, MGO #### [facility] (DEFAULT) [address] [place] [address] RBC (Bld) [#/Vol] 2.17 10*6/uL Low 4.38-5.83 [facility] Comment on above: Performed By: #### Claire HMRosemary, IPB, MGO #### [facility] (DEFAULT) [address] [place] [address] RBC Distribution 14.9 % High 10.9-14.3 [facility] Comment on above: Performed By: #### Claire HM7, IPB, MGO #### [facility] (DEFAULT) [address] [place] [address] WBC (Bld) [#/Vol] 13.38 10*3/uL High 3.73-10.10 [facility] Comment on above: Performed By: #### Claire HM7, IPB, MGO #### [facility] (DEFAULT) [address] [place] [address] CHEM 7 (LYTES,BUN,CREA,GLUC) on 10-17-2024 Anion gap [Moles/Vol] 10 mmol/L 7 - 17 mmol/L [facility] Chloride [Moles/Vol] 100 mmol/L 98 - 10 8 mmol/L [facility] CO2 [Moles/Vol] 29 mmol/L 21 - 31 mmol/L [facility] [facility] Creatinine [Mass/Vol] 1.59 mg/dL High 0.70 - 1.30 mg/dL [facility] eGFR, CKD-EPI, Male 50 Low - PINF [facility] Comment on above: Reported eGFR is bas ed on the CKD-EPI 2020 equation using creatinine, age, and sex. Glucose [Mass/Vol] 98 mg/dL 70 - 99 mg/dL [facility] Interpretation and review of laboratory results Abnormal [facility] Osmolality Calc [Osmolality] 286 [facility] Potassium [Moles/Vol] 3.4 mmol/L Low 3.5 - 5.0 mmol/L [facility] Sodium [Moles/Vol] 136 mmol/L 135 - 145 mmol/L [facility] Urea nitrogen [Mass/Vol] 19 mg/dL 7 - 25 mg/dL [facility] Urea nitrogen/Creatinine [Mass ratio] 12 mg/mg [facility] Anion gap [Moles/Vol] 10 mmol/L Normal 7-[address] [facility] Comment on above: Performed By: #### SWATI GAMBINO IPB ####[facility] (DEFAULT)[address] [place] [address] Chloride [Moles/Vol] 100 mmol/L Normal 98-108 [facility] Comment on above: Performed By: #### SWATI GAMBINO IPB ####[facility] (DEFAULT)[address] [place] [address] CO2 [Moles/Vol] 29 mmol/L Normal 21-31 [facility] Comment on above: Performed By: #### SWATI GAMBINO IPB ####[facility] (DEFAULT)[address] [place] [address] Creatinine [Mass/Vol] 1.59 mg/dL High 0.70-1.[address] [facility] Comment on above: Performed By: #### SWATI GAMBINO IPB ####[facility] (DEFAULT)[address] [place] [address] GFR/1.73 sq M.predicted among non-blacks MDRD (S/P/Bld) [Vol rate/Area] 50 mL/min/{1.73_m2} Low >=60 [facility] Comment on above: Result Comment: Repo rted eGFR is based on the CKD-EPI 2020 equation using creatinine, age, and sex. Performed By: #### MG IMMANUELO, IPB ####[facility] (DEFAULT)[address] [place] [address] Glucose [Mass/Vol] 98 mg/dL Normal 70-99 [facility] Comment on above: Performed By: #### Claire STAPLES MGO, IPB ####[facility] (DEFAULT)[address] [place] [address] Osmolality [Osmolality] 286 mosm/kg Normal 278-305 [facility] Comment on above: Performed By: #### Claire STAPLES MGO, IPB ####[facility] (DEFAULT)[address] [place] [address] Potassium [Moles/Vol] 3.4 mmol/L Low 3.5-5.[address] [facility] Comment on above: Performed By: #### Claire HM7 MGO, IPB ####[facility] (DEFAULT)[address] [place] [address] Sodium [Moles/Vol] 136 mmol/L Normal 135-145 [facility] Comment on above: Performed By: #### Claire HM7 MGO, IPB ####[facility] (DEFAULT)[address] [place] [address] Urea nitrogen [Mass/Vol] 19 mg/dL Normal 7-25 [facility] Comment on above: Performed By: #### Claire HM7, MGO, IPB ####[facility] (DEFAULT)[address] [place] [address] Urea nitrogen/Creatinine [Mass ratio] 12 mg/mg Normal [facility] Comment on above: Performed By: #### SWATI GAMBINO IPB ####[facility] (DEFAULT)[address] [place] [address] HEMOGLOBIN & HEMATOCRITon Hematocrit (Bld) [Volume fraction] 27.8 % Low 39.6 - 48.8 % [facility] Hemoglobin (Bld) [Mass/Vol] 8.8 g/dL Low 13.4 - 16.8 g/dL [facility] Interpretation and review of laboratory results Abnormal [facility] Hematocrit (Bld) [Volume fraction] 27.8 % Low 39.6-48.8 [facility] Comment on above: Order Comment: Post transfusion Performed By: #### ELEN GAMBINO MGO #### [facility] (DEFAULT) [address] [place] [address] Hemoglobin (Bld) [Mass/Vol] 8.8 g/dL Low 13.4-16.8 [facility] Comment on above: Order Comment: Post transfusion Performed By: #### ELEN GAMBINO MGO #### [facility] (DEFAULT) [address] [place] [address] IONIZED CALCIUM, WHOLE BLOOD on 10-17-2024 Calcium.ionized (Bld) [Moles/Vol] 4.50 mg/dL Low 4.60 - 5.30 mg/dL [facility] Interpretation and review of laboratory results Abnormal [facility] ICA 4.50 mg/dL Low 4.60-5.30 [facility] Comment on above: Performed By: #### U [id number] #### [facility] (DEFAULT) [address] [place] [address] MAGNESIUMon 10-17-2024 Magnesium [Mass/Vol] 1.6 mg/dL 1.6 - 2 .6 mg/dL [facility] Magnesium [Mass/Vol] 1.6 mg/dL Normal 1.6-2.6 [facility] Comment on above: Performed By: #### C SWATI STAPLES IPB ####[facility] (DEFAULT)[address] [place] [address] No Panel Informationon 10-17 Interpretation and review of laboratory results Normal [facility] PHOSPHATE, INORGANICon 10-17 Phosphate [Mass/Vol] 2.4 mg/dL 2.2 - 4 .6 mg/dL [facility] Phosphorous 2.4 mg/dL Normal 2.2-4.6 [facility] Comment on above: Performed By: #### C ELEN STAPLES, SWATI #### [facility] (DEFAULT) [address] [place] [address] PREPARE TO TRANSFUSE RED BLO OD CELLSon 10-17-2024 ABO/RH(D) TYPE Positive [facility] BLOOD COMPONENT TYPE Red Cells, Leukoreduced [facility] EXPIRATION DATE [id number] [facility] Product ABO/RH(D) Negative [facility] Product ABO/RH(D) NUMBER 600 [facility] PRODUCT CODE [id number] [facility] UNIT NUMBER [id number] [facility] UNIT STATUS transfused [facility] TYPE AND SCREENon 10-17-2024 ABO/RH(D) TYPE Positive [facility] Outdate Specimen 10/20/2024 23:59 OS [facility] ABO/RH(D) TYPE Positive Normal [facility] Comment on above: Performed By: #### U [id number] #### [facility] (DEFAULT) [address] [place] [address] Outdate Specimen 10/20/2024 23:59 Normal [facility] Comment on above: Performed By: #### U [id number] #### [facility] (DEFAULT) [address] [address] CBC,PLATELETSon 10-16-2024 Erythrocyte distribution width (RBC) [Ratio] 15.0 % High 10.9 - 14.3 % [facility] Hematocrit (Bld) [Volume fraction] 24.1 % Low 39.6 - 48.8 % [facility] Hemoglobin (Bld) [Mass/Vol] 7.4 g/dL Low 13.4 - 16.8 g/dL [facility] Interpretation and review of laboratory results Abnormal [facility] MCH (RBC) [Entitic mass] 29.1 pg 26.1 - 33.3 pg [facility] MCHC (RBC) [Mass/Vol] 30.7 g/dL Low 31.9 - 36.5 g/dL [facility] MCV (RBC) [Entitic vol] 94.9 fL High 79.0 - 94.5 fL [facility] Platelet mean volume (Bld) [Entitic vol] 8.6 fL Low 8.7 - 12.3 fL [facility] Platelets (Bld) [#/Vol] 297 10*3/uL 146 - 337 K/uL [facility] RBC (Bld) [#/Vol] 2.54 10*6/uL Low [facility] WBC (Bld) [#/Vol] 12.75 10*3/uL High 3.73 - 10.10 K/uL [facility] Hematocrit (Bld) [Volume fraction] 24.1 % Low 39.6-48.8 [facility] Comment on above: Performed By: #### ELEN GAMBINO MGO #### [facility] (DEFAULT) [address] [address] Hemoglobin (Bld) [Mass/Vol] 7.4 g/dL Low 13.4-16.8 [facility] Comment on above: Performed By: #### ELEN GAMBINO, MGO #### [facility] (DEFAULT) [address] [place] [address] MCV (RBC) [Entitic vol] 94.9 fL High 79.0-94.5 [facility] Comment on above: Performed By: #### C HM7, IPB, MGO #### [facility] (DEFAULT) [address] [place] [address] Mean Cell Hgb 29.1 pg Normal 26.1-33.3 [facility] Comment on above: Performed By: #### C HM7, IPB, MGO #### [facility] (DEFAULT) [address] [place] [address] Mean Cell Hgb Conc 30.7 g/dL Low 31.9-36.5 [facility] Comment on above: Performed By: #### Claire HM7, IPB, MGO #### [facility] (DEFAULT) [address] [place] [address] Platelet mean volume (Bld) [Entitic vol] 8.6 fL Low 8.7-12.3 [facility] Comment on above: Performed By: #### C HM7, IPB, MGO #### [facility] (DEFAULT) [address] [place] [address] Platelets (Bld) [#/Vol] 297 10*3/uL Normal 146-337 [facility] Comment on above: Performed By: #### C HM7, IPB, MGO #### [facility] (DEFAULT) [address] [place] [address] RBC (Bld) [#/Vol] 2.54 10*6/uL Low 4.38-5.83 [facility] Comment on above: Performed By: #### Claire HM7, IPB, MGO #### [facility] (DEFAULT) [address] [place] [address] RBC Distribution 15.0 % High 10.9-14.3 [facility] Comment on above: Performed By: #### Claire HM7, IPB, MGO #### [facility] (DEFAULT) [address] [place] [address] WBC (Bld) [#/Vol] 12.75 10*3/uL High 3.73-10.10 [facility] Comment on above: Performed By: #### C HM7, ELEN, MGO #### [facility] (DEFAULT) [address] [place] [address] CHEM 7 (LYTES,BUN,CREA,GLUC) Ordered By: Shay Sanchez on 10-16-2024 Anion gap [Moles/Vol] 9 mmol/L 7 - 17 mmol/L [facility] Chloride [Moles/Vol] 104 mmol/L 98 - 10 8 mmol/L [facility] CO2 [Moles/Vol] 30 mmol/L 21 - 31 mmol/L [facility] Creatinine [Mass/Vol] 1.87 mg/dL High 0.70 - 1.30 mg/dL [facility] eGFR, CKD-EPI, Male 41 Low - PINF [facility] Comment on above: Reported eGFR is bas ed on the CKD-EPI 2020 equation using creatinine, age, and sex. Glucose [Mass/Vol] 109 mg/dL High 70 - 99 mg/dL [facility] Osmolality Calc [Osmolality] 296 [facility] Potassium [Moles/Vol] 3.1 mmol/L Low 3.5 - 5.0 mmol/L [facility] Sodium [Moles/Vol] 140 mmol/L 135 - 145 mmol/L [facility] Urea nitrogen [Mass/Vol] 25 mg/dL 7 - 25 mg/dL [facility] Urea nitrogen/Creatinine [Mass ratio] 13 mg/mg [facility] CHEM 7 (LYTES,BUN,CREA,GLUC) on 10-16-2024 Anion gap [Moles/Vol] 9 mmol/L Normal 7-[address] [facility] Comment on above: Performed By: #### T YPEC #### [facility] (DEFAULT) [address] [place] [address] Chloride [Moles/Vol] 104 mmol/L Normal 98-108 [facility] Comment on above: Performed By: #### T YPEC #### [facility] (DEFAULT) [address] [address] CO2 [Moles/Vol] 30 mmol/L Normal 21-31 [facility] Comment on above: Performed By: #### T YPEC #### [facility] (DEFAULT) [address] [address] Creatinine [Mass/Vol] 1.87 mg/dL High 0.70-1.[address] [facility] Comment on above: Performed By: #### T YPEC #### [facility] (DEFAULT) [address] [address] GFR/1.73 sq M.predicted among non-blacks MDRD (S/P/Bld) [Vol rate/Area] 41 mL/min/{1.73_m2} Low >=60 [facility] Comment on above: Result Comment: Repo rted eGFR is based on the CKD-EPI 2020 equation using creatinine, age, and sex. Performed By: #### T YPEC #### [facility] (DEFAULT) [address] [address] Glucose [Mass/Vol] 109 mg/dL High 70-99 [facility] Comment on above: Performed By: #### T YPEC #### [facility] (DEFAULT) [address] [address] Osmolality [Osmolality] 296 mosm/kg Normal 278-305 [facility] Comment on above: Performed By: #### T YPEC #### [facility] (DEFAULT) [address] [address] Potassium [Moles/Vol] 3.1 mmol/L Low 3.5-5.[address] [facility] Comment on above: Performed By: #### T YPEC #### [facility] (DEFAULT) [address] [address] Sodium [Moles/Vol] 140 mmol/L Normal 135-145 [facility] Comment on above: Performed By: #### T YPEC #### [facility] (DEFAULT) [address] [place] [address] Urea nitrogen [Mass/Vol] 25 mg/dL Normal 7-25 [facility] Comment on above: Performed By: #### T YPEC #### [facility] (DEFAULT) [address] [place] [address] Urea nitrogen/Creatinine [Mass ratio] 13 mg/mg Normal [facility] Comment on above: Performed By: #### T YPEC #### [facility] (DEFAULT) [address] [place] [address] Culture, Blood (WB)on 2023 CUB Blood cultures x2, f rom two different sites No growth in 5 days. Normal [facility] Comment on above: Performed By: #### M 200.1000 ####[facility] [id number] [place], [address] GLUCOSE POCon 10-16-2024 Glucose [Mass/Vol] 102 mg/dL High 70 - 99 mg/dL [facility] Interpretation and review of laboratory results Abnormal [facility] POC Sample Type CAPBL [facility] Test performed at ad dress of the patient encounter. [facility] IONIZED CALCIUM, WHOLE BLOOD Ordered By: Eber Oro on 10-16-2024 Calcium.ionized (Bld) [Moles/Vol] 4.39 mg/dL Low 4.60 - 5.30 mg/dL [facility] Interpretation and review of laboratory results Abnormal [facility] IONIZED CALCIUM, WHOLE BLOOD on 10-16-2024 ICA 4.39 mg/dL Low 4.60-5.30 [facility] Comment on above: Performed By: #### U [id number] #### [facility] (DEFAULT) [address] [place] [address] MAGNESIUMon 10-16-2024 Interpretation and review of laboratory results Normal [facility] Magnesium [Mass/Vol] 1.8 mg/dL 1.6 - 2 .6 mg/dL [facility] Magnesium [Mass/Vol] 1.8 mg/dL Normal 1.6-2.6 [facility] Comment on above: Performed By: #### T YPEC #### [facility] (DEFAULT) [address] [place] [address] No Panel InformationOrdered By: Shay Sanchez on 10-16-2024 Interpretation and review of laboratory results Abnormal [facility] PHOSPHATE, INORGANICon 10-16 Phosphate [Mass/Vol] 1.7 mg/dL Low 2.2 - 4 .6 mg/dL [facility] Phosphorous 1.7 mg/dL Low 2.2-4.6 [facility] Comment on above: Performed By: #### T YPEC #### [facility] (DEFAULT) [address] [place] [address] POTASSIUMon 10-16-2024 Interpretation and review of laboratory results Normal [facility] Potassium [Moles/Vol] 3.6 mmol/L 3.5 - 5.0 mmol/L [facility] Potassium [Moles/Vol] 3.6 mmol/L Normal 3.5-5.[address] [facility] Comment on above: Performed By: #### G EN #### [facility] (DEFAULT) [address] [place] [address] CBC,PLATELETSon 10-15-2024 Erythrocyte distribution width (RBC) [Ratio] 15.6 % High 10.9 - 14.3 % [facility] Hematocrit (Bld) [Volume fraction] 24.8 % Low 39.6 - 48.8 % [facility] Hemoglobin (Bld) [Mass/Vol] 7.6 g/dL Low 13.4 - 16.8 g/dL [facility] Interpretation and review of laboratory results Abnormal [facility] MCH (RBC) [Entitic mass] 29.8 pg 26.1 - 33.3 pg [facility] MCHC (RBC) [Mass/Vol] 30.6 g/dL Low 31.9 - 36.5 g/dL [facility] MCV (RBC) [Entitic vol] 97.3 fL High 79.0 - 94.5 fL [facility] Platelet mean volume (Bld) [Entitic vol] 8.8 fL 8.7 - 12.3 fL [facility] Platelets (Bld) [#/Vol] 341 10*3/uL High 146 - 337 K/uL [facility] RBC (Bld) [#/Vol] 2.55 10*6/uL Low [facility] WBC (Bld) [#/Vol] 11.70 10*3/uL High 3.73 - 10.10 K/uL [facility] Hematocrit (Bld) [Volume fraction] 24.8 % Low 39.6-48.8 [facility] Comment on above: Performed By: #### ELEN GAMBINO MGO #### [facility] (DEFAULT) [address] [address] Hemoglobin (Bld) [Mass/Vol] 7.6 g/dL Low 13.4-16.8 [facility] Comment on above: Performed By: #### ELEN GAMBINO, MGO #### [facility] (DEFAULT) [address] [address] MCV (RBC) [Entitic vol] 97.3 fL High 79.0-94.5 [facility] Comment on above: Performed By: #### ELEN GAMBINO, MGO #### [facility] (DEFAULT) [address] [address] Mean Cell Hgb 29.8 pg Normal 26.1-33.3 [facility] Comment on above: Performed By: #### C HM7, IPB, MGO #### [facility] (DEFAULT) [address] [place] [address] Mean Cell Hgb Conc 30.6 g/dL Low 31.9-36.5 [facility] Comment on above: Performed By: #### C HM7, IPB, MGO #### [facility] (DEFAULT) [address] [place] [address] Platelet mean volume (Bld) [Entitic vol] 8.8 fL Normal 8.7-12.3 [facility] Comment on above: Performed By: #### C HM7, IPB, MGO #### [facility] (DEFAULT) [address] [place] [address] Platelets (Bld) [#/Vol] 341 10*3/uL High 146-337 [facility] Comment on above: Performed By: #### C HM7, IPB, MGO #### [facility] (DEFAULT) [address] [place] [address] RBC (Bld) [#/Vol] 2.55 10*6/uL Low 4.38-5.83 [facility] Comment on above: Performed By: #### C HM7, IPB, MGO #### [facility] (DEFAULT) [address] [place] [address] RBC Distribution 15.6 % High 10.9-14.3 [facility] Comment on above: Performed By: #### C HM7, IPB, MGO #### [facility] (DEFAULT) [address] [place] [address] WBC (Bld) [#/Vol] 11.70 10*3/uL High 3.73-10.10 [facility] Comment on above: Performed By: #### C HM7, IPB, MGO #### [facility] (DEFAULT) [address] [place] [address] CHEM 7 (LYTES,BUN,CREA,GLUC) Ordered By: Susie Rodriguez on 10-15-2024 Anion gap [Moles/Vol] 20 mmol/L High 7 - 17 mmol/L [facility] Chloride [Moles/Vol] 107 mmol/L 98 - 10 8 mmol/L [facility] CO2 [Moles/Vol] 28 mmol/L 21 - 31 mmol/L [facility] Creatinine [Mass/Vol] 2.49 mg/dL High 0.70 - 1.30 mg/dL [facility] eGFR, CKD-EPI, Male 29 Low - PINF [facility] Comment on above: Reported eGFR is bas ed on the CKD-EPI 2020 equation using creatinine, age, and sex. Glucose [Mass/Vol] 78 mg/dL 70 - 99 mg/dL [facility] Interpretation and review of laboratory results Abnormal [facility] Osmolality Calc [Osmolality] 322 High [facility] Potassium [Moles/Vol] 3.8 mmol/L 3.5 - 5.0 mmol/L [facility] Sodium [Moles/Vol] 151 mmol/L High 135 - 145 mmol/L [facility] Urea nitrogen [Mass/Vol] 41 mg/dL High 7 - 25 mg/dL [facility] Urea nitrogen/Creatinine [Mass ratio] 16 mg/mg [facility] CHEM 7 (LYTES,BUN,CREA,GLUC) on 10-15-2024 Anion gap [Moles/Vol] 20 mmol/L High 7-17 [facility] Comment on above: Performed By: #### C JHOAN, ELEN, MGO #### [facility] (DEFAULT) [address] [place] [address] Chloride [Moles/Vol] 107 mmol/L Normal 98-108 [facility] Comment on above: Performed By: #### Claire STAPLES, IPB, MGO #### [facility] (DEFAULT) [address] [place] [address] CO2 [Moles/Vol] 28 mmol/L Normal 21-31 [facility] Comment on above: Performed By: #### CASSIDY GAMBINOB, MGO #### [facility] (DEFAULT) [address] [place] [address] Creatinine [Mass/Vol] 2.49 mg/dL High 0.70-1.[address] [facility] Comment on above: Performed By: #### Claire STAPLES, IPB, MGO #### [facility] (DEFAULT) [address] [place] [address] GFR/1.73 sq M.predicted among non-blacks MDRD (S/P/Bld) [Vol rate/Area] 29 mL/min/{1.73_m2} Low >=60 [facility] Comment on above: Result Comment: Repo rted eGFR is based on the CKD-EPI 2020 equation using creatinine, age, and sex. Performed By: #### ELEN GAMBINO, MGO #### [facility] (DEFAULT) [address] [place] [address] Glucose [Mass/Vol] 78 mg/dL Normal 70-99 [facility] Comment on above: Performed By: #### ELEN GAMBINO, MGO #### [facility] (DEFAULT) [address] [place] [address] Osmolality [Osmolality] 322 mosm/kg High 278-305 [facility] Comment on above: Performed By: #### CASSIDY GAMBINOB, MGO #### [facility] (DEFAULT) [address] [place] [address] Potassium [Moles/Vol] 3.8 mmol/L Normal 3.5-5.[address] [facility] Comment on above: Performed By: #### Claire STAPLES, CASSIDYB, MGO #### [facility] (DEFAULT) [address] [place] [address] Sodium [Moles/Vol] 151 mmol/L High 135-145 [facility] Comment on above: Performed By: #### Claire HMRosemary, IPB, MGO #### [facility] [facility] (DEFAULT) [address] [place] [address] Urea nitrogen [Mass/Vol] 41 mg/dL High 7-25 [facility] Comment on above: Performed By: #### ELEN GAMBINO, MGO #### U [facility] (DEFAULT) [address] [place] [address] Urea nitrogen/Creatinine [Mass ratio] 16 mg/mg Normal [facility] Comment on above: Performed By: #### ELEN GAMBINO, MGO #### [facility] (DEFAULT) [address] [place] [address] IONIZED CALCIUM, WHOLE BLOOD on 10-15-2024 Calcium.ionized (Bld) [Moles/Vol] 4.95 mg/dL 4.60 - 5.30 mg/dL [facility] Interpretation and review of laboratory results Normal [facility] ICA 4.95 mg/dL Normal 4.60-5.30 [facility] Comment on above: Performed By: #### S URGP #### [facility] (DEFAULT) [address] [place] [address] MAGNESIUMon 10-15-2024 Magnesium [Mass/Vol] 1.8 mg/dL 1.6 - 2 .6 mg/dL [facility] Magnesium [Mass/Vol] 1.8 mg/dL Normal 1.6-2.6 [facility] Comment on above: Performed By: #### ELEN GAMBINO, MGO #### [facility] (DEFAULT) [address] [place] [address] No Panel Informationon 10-15 Interpretation and review of laboratory results Normal [facility] PHOSPHATE, INORGANICon 10-15 Phosphate [Mass/Vol] 4.0 mg/dL 2.2 - 4 .6 mg/dL [facility] Phosphorous 4.0 mg/dL Normal 2.2-4.6 [facility] Comment on above: Performed By: #### C ELEN STAPLES, MGO #### [facility] (DEFAULT) [address] [place] [address] 32794 CBC,PLATELETSon 10-14-2024 Erythrocyte distribution width (RBC) [Ratio] 15.6 % High 10.9 - 14.3 % [facility] Hematocrit (Bld) [Volume fraction] 23.3 % Low 39.6 - 48.8 % [facility] Hemoglobin (Bld) [Mass/Vol] 7.2 g/dL Low 13.4 - 16.8 g/dL [facility] Interpretation and review of laboratory results Abnormal [facility] MCH (RBC) [Entitic mass] 29.8 pg 26.1 - 33.3 pg [facility] MCHC (RBC) [Mass/Vol] 30.9 g/dL Low 31.9 - 36.5 g/dL [facility] MCV (RBC) [Entitic vol] 96.3 fL High 79.0 - 94.5 fL [facility] Platelet mean volume (Bld) [Entitic vol] 8.9 fL 8.7 - 12.3 fL [facility] Platelets (Bld) [#/Vol] 365 10*3/uL High 146 - 337 K/uL [facility] RBC (Bld) [#/Vol] 2.42 10*6/uL Low [facility] WBC (Bld) [#/Vol] 12.83 10*3/uL High 3.73 - 10.10 K/uL [facility] Hematocrit (Bld) [Volume fraction] 23.3 % Low 39.6-48.8 [facility] Comment on above: Performed By: #### S URGP #### [facility] (DEFAULT) [address] [address] Hemoglobin (Bld) [Mass/Vol] 7.2 g/dL Low 13.4-16.8 [facility] Comment on above: Performed By: #### S URGP #### [facility] (DEFAULT) [address] [place] [address] MCV (RBC) [Entitic vol] 96.3 fL High 79.0-94.5 [facility] Comment on above: Performed By: #### S URGP #### U [facility] (DEFAULT) [address] [place] [address] 61876 Mean Cell Hgb 29.8 pg Normal 26.1-33.3 [facility] Comment on above: Performed By: #### S URGP #### U [facility] (DEFAULT) [address] [place] [address] 078[address] Mean Cell Hgb Conc 30.9 g/dL Low 31.9-36.5 [facility] Comment on above: Performed By: #### S URGP #### U [facility] (DEFAULT) [address] [place] [address] Platelet mean volume (Bld) [Entitic vol] 8.9 fL Normal 8.7-12.3 [facility] Comment on above: Performed By: #### S URGP #### [facility] (DEFAULT) [address] [place] [address] Platelets (Bld) [#/Vol] 365 10*3/uL High 146-337 [facility] Comment on above: Performed By: #### S URGP #### [facility] (DEFAULT) [address] [place] [address] 995[address] RBC (Bld) [#/Vol] 2.42 10*6/uL Low 4.38-5.83 [facility] Comment on above: Performed By: #### S URGP #### [facility] (DEFAULT) [address] [place] [address] 49262 RBC Distribution 15.6 % High 10.9-14.3 [facility] Comment on above: Performed By: #### S URGP #### U [facility] (DEFAULT) [address] [place] [address] 31664 WBC (Bld) [#/Vol] 12.83 10*3/uL High 3.73-10.10 [facility] Comment on above: Performed By: #### S URGP #### [facility] (DEFAULT) [address] [place] [id number] CHEM 7 (LYTES,BUN,CREA,GLUC) on 10-14-2024 Anion gap [Moles/Vol] 17 mmol/L 7 - 17 mmol/L [facility] Chloride [Moles/Vol] 104 mmol/L 98 - 10 8 mmol/L [facility] CO2 [Moles/Vol] 28 mmol/L 21 - 31 mmol/L [facility] Creatinine [Mass/Vol] 2.89 mg/dL High 0.70 - 1.30 mg/dL [facility] eGFR, CKD-EPI, Male 24 Low - PINF [facility] Comment on above: Reported eGFR is bas ed on the CKD-EPI 2020 equation using creatinine, age, and sex. Glucose [Mass/Vol] 68 mg/dL Low 70 - 99 mg/dL [facility] Interpretation and review of laboratory results Abnormal [facility] Osmolality Calc [Osmolality] 312 High [facility] Potassium [Moles/Vol] 3.7 mmol/L 3.5 - 5.0 mmol/L [facility] Sodium [Moles/Vol] 145 mmol/L 135 - 145 mmol/L [facility] Urea nitrogen [Mass/Vol] 47 mg/dL High 7 - 25 mg/dL [facility] Urea nitrogen/Creatinine [Mass ratio] 16 mg/mg [facility] Anion gap [Moles/Vol] 17 mmol/L Normal 7-17 [facility] Comment on above: Performed By: #### U [id number] #### [facility] (DEFAULT) [address] [place] [address] Chloride [Moles/Vol] 104 mmol/L Normal 98-108 [facility] Comment on above: Performed By: #### U [id number] #### [facility] (DEFAULT) [address] [place] [address] CO2 [Moles/Vol] 28 mmol/L Normal 21-31 [facility] Comment on above: Performed By: #### U [id number] #### [facility] (DEFAULT) [address] [place] [address] Creatinine [Mass/Vol] 2.89 mg/dL High 0.70-1.[address] [facility] Comment on above: Performed By: #### U [id number] #### [facility] (DEFAULT) [address] [place] [address]25[address] GFR/1.73 sq M.predicted among non-blacks MDRD (S/P/Bld) [Vol rate/Area] 24 mL/min/{1.73_m2} Low >=60 [facility] Comment on above: Result Comment: Repo rted eGFR is based on the CKD-EPI 2020 equation using creatinine, age, and sex. Performed By: #### U [id number] #### [facility] (DEFAULT) [address] [place] [address] Glucose [Mass/Vol] 68 mg/dL Low 70-99 [facility] Comment on above: Performed By: #### U [id number] #### [facility] (DEFAULT) [address] [place] [address] Osmolality [Osmolality] 312 mosm/kg High 278-305 [facility] Comment on above: Performed By: #### U [id number] #### [facility] (DEFAULT) [address] [place] [address]96 Potassium [Moles/Vol] 3.7 mmol/L Normal 3.5-5.[address] [facility] Comment on above: Performed By: #### U [id number] #### [facility] (DEFAULT) [address] [place] [address] 51497 Sodium [Moles/Vol] 145 mmol/L Normal 135-145 [facility] Comment on above: Performed By: #### U [id number] #### U [facility] (DEFAULT) [address] [place] [address] Urea nitrogen [Mass/Vol] 47 mg/dL High 7-25 [facility] Comment on above: Performed By: #### U [id number] #### [facility] (DEFAULT) [address] [place] [address] Urea nitrogen/Creatinine [Mass ratio] 16 mg/mg Normal [facility] Comment on above: Performed By: #### U [id number] #### [facility] (DEFAULT) [address] [place] [address] IONIZED CALCIUM, WHOLE BLOOD Ordered By: Almita Roberson on 10-14-2024 Calcium.ionized (Bld) [Moles/Vol] 4.89 mg/dL 4.60 - 5.30 mg/dL [facility] Interpretation and review of laboratory results Normal [facility] IONIZED CALCIUM, WHOLE BLOOD on 10-14-2024 ICA 4.89 mg/dL Normal 4.60-5.30 [facility] Comment on above: Performed By: #### C HM7, IPB, MGO #### [facility] (DEFAULT) [address] [place] [address] MAGNESIUMon 10-14-2024 Magnesium [Mass/Vol] 2.0 mg/dL 1.6 - 2 .6 mg/dL [facility] Magnesium [Mass/Vol] 2.0 mg/dL Normal 1.6-2.6 [facility] Comment on above: Performed By: #### U [id number] #### [facility] (DEFAULT) [address] [place] [address] No Panel Informationon 10-14 Interpretation and review of laboratory results Normal [facility] PHOSPHATE, INORGANICon 10-14 Phosphate [Mass/Vol] 4.5 mg/dL 2.2 - 4 .6 mg/dL [facility] Phosphorous 4.5 mg/dL Normal 2.2-4.6 [facility] Comment on above: Performed By: #### U [id number] #### [facility] (DEFAULT) [address] [place] [address] 16447 XR ABDOMEN 1 VIEWon 10-14-20 XR ABDOMEN [...] distal small bowel loops and colon. Normal [facility] XR ABDOMEN 1 VIEW PORTABLEon 10-14-2024 [...] small bowel loops filled with contrast. Normal [facility] XR Abdomen Single viewon IMPRESSION: Slightly [...] small bowel loops and colon. [facility] Radiology Study observation (narrative) [facility] IMPRESSION: Enteric contrast in the proximal colon. [...] bowel loops filled with contrast. [facility] Radiology Study observation (narrative) [facility] XR Abdomen Single viewOrdere d By: Genevieve Escobar on 10-14-2024 [facility] Work Phone: XR Abdomen Single viewOrdere d By: Albert Bear on 10-14-2024 [facility] CBC,PLATELETSon 10-13-2024 Erythrocyte distribution width (RBC) [Ratio] 15.9 % High 10.9 - 14.3 % [facility] Hematocrit (Bld) [Volume fraction] 25.5 % Low 39.6 - 48.8 % [facility] Hemoglobin (Bld) [Mass/Vol] 7.9 g/dL Low 13.4 - 16.8 g/dL [facility] Comment on above: Results inconsistent with previous results. Interpretation and review of laboratory results Abnormal [facility] MCH (RBC) [Entitic mass] 29.6 pg 26.1 - [facility] [Mass/Vol] 31.0 g/dL Low 31.9 - 36.5 g/dL [facility] MCV (RBC) [Entitic vol] 95.5 fL High 79.0 - 94.5 fL [facility] Platelet mean volume (Bld) [Entitic vol] 8.6 fL Low 8.7 - 12.3 fL [facility] Platelets (Bld) [#/Vol] 437 10*3/uL High 146 - 337 K/uL [facility] RBC (Bld) [#/Vol] 2.67 10*6/uL Low [facility] WBC (Bld) [#/Vol] 17.22 10*3/uL High 3.73 - 10.10 K/uL [facility] Hematocrit (Bld) [Volume fraction] 25.5 % Low 39.6-48.8 [facility] Comment on above: Performed By: #### C JHOAN, ELEN, MGO #### [facility] (DEFAULT) [address] [address] Hemoglobin (Bld) [Mass/Vol] 7.9 g/dL Low 13.4-16.8 [facility] Comment on above: Result Comment: Resu lts inconsistent with previous results. Performed By: #### C HM7, IPB, MGO #### [facility] (DEFAULT) [address] [place] [address] 13275 MCV (RBC) [Entitic vol] 95.5 fL High 79.0-94.5 [facility] Comment on above: Performed By: #### Claire HM7, IPB, MGO #### [facility] (DEFAULT) [address] [address] Mean Cell Hgb 29.6 pg Normal 26.1-33.3 [facility] Comment on above: Performed By: #### Claire HM7, IPB, MGO #### [facility] (DEFAULT) [address] [address] Mean Cell Hgb Conc 31.0 g/dL Low 31.9-36.5 [facility] Comment on above: Performed By: #### Claire STAPLES, IPB, MGO #### U [facility] (DEFAULT) [address] [place] [address] 36520 Platelet mean volume (Bld) [Entitic vol] 8.6 fL Low 8.7-12.3 [facility] Comment on above: Performed By: #### Claire HMRosemary, IPB, MGO #### U [facility] (DEFAULT) [address] [place] [address] 42384 Platelets (Bld) [#/Vol] 437 10*3/uL High 146-337 [facility] Comment on above: Performed By: #### Claire HM7, IPB, MGO #### [facility] (DEFAULT) [address] [place] [address] 76368 RBC (Bld) [#/Vol] 2.67 10*6/uL Low 4.38-5.83 [facility] Comment on above: Performed By: #### Claire STAPLES, IPB, MGO #### [facility] (DEFAULT) [address] [place] [address] 71702 RBC Distribution 15.9 % High 10.9-14.3 [facility] Comment on above: Performed By: #### Claire HM7, IPB, MGO #### [facility] (DEFAULT) [address] [place] [address] 13381 WBC (Bld) [#/Vol] 17.22 10*3/uL High 3.73-10.10 [facility] Comment on above: Performed By: #### Claire HMRosemary, IPB, MGO #### [facility] (DEFAULT) [address] [place] [address]71 CHEM 7 (LYTES,BUN,CREA,GLUC) on 10-13-2024 Anion gap [Moles/Vol] 20 mmol/L High 7 - 17 mmol/L [facility] Chloride [Moles/Vol] 103 mmol/L 98 - 10 8 mmol/L [facility] CO2 [Moles/Vol] 26 mmol/L 21 - 31 mmol/L [facility] Creatinine [Mass/Vol] 2.80 mg/dL High 0.70 - 1.30 mg/dL [facility] eGFR, CKD-EPI, Male 25 Low - PINF [facility] Comment on above: Reported eGFR is bas ed on the CKD-EPI 2020 equation using creatinine, age, and sex. Glucose [Mass/Vol] 78 mg/dL 70 - 99 mg/dL [facility] Interpretation and review of laboratory results Abnormal [facility] Osmolality Calc [Osmolality] 313 High [facility] Potassium [Moles/Vol] 3.7 mmol/L 3.5 - 5.0 mmol/L [facility] Sodium [Moles/Vol] 145 mmol/L 135 - 145 mmol/L [facility] Urea nitrogen [Mass/Vol] 48 mg/dL High 7 - 25 mg/dL [facility] Urea nitrogen/Creatinine [Mass ratio] 17 mg/mg [facility] Anion gap [Moles/Vol] 20 mmol/L High 7-[address] [facility] Comment on above: Performed By: #### Claire STAPLES, ELEN, MGO #### [facility] (DEFAULT) [address] [place] [address] Chloride [Moles/Vol] 103 mmol/L Normal 98-108 [facility] Comment on above: Performed By: #### lCaire STAPLES, IPB, MGO #### [facility] (DEFAULT) [address] [place] [address] CO2 [Moles/Vol] 26 mmol/L Normal 21-31 [facility] Comment on above: Performed By: #### Claire STAPLES, IPB, MGO #### [facility] (DEFAULT) [address] [place] [address] Creatinine [Mass/Vol] 2.80 mg/dL High 0.70-1.[address] [facility] Comment on above: Performed By: #### Claire HM7, IPB, MGO #### [facility] (DEFAULT) [address] [place] [address] 67152 GFR/1.73 sq M.predicted among non-blacks MDRD (S/P/Bld) [Vol rate/Area] 25 mL/min/{1.73_m2} Low >=60 [facility] Comment on above: Result Comment: Repo rted eGFR is based on the CKD-EPI 2020 equation using creatinine, age, and sex. Performed By: #### Claire HM7, IPB, MGO #### [facility] (DEFAULT) [address] [place] [address] 19745 Glucose [Mass/Vol] 78 mg/dL Normal 70-99 [facility] Comment on above: Performed By: #### Claire HMRosemary, IPB, MGO #### [facility] (DEFAULT) [address] [place] [address] 61435 Osmolality [Osmolality] 313 mosm/kg High 278-305 [facility] Comment on above: Performed By: #### Claire STAPLES, IPB, MGO #### [facility] (DEFAULT) [address] [place] [address] 51039 Potassium [Moles/Vol] 3.7 mmol/L Normal 3.5-5.[address] [facility] Comment on above: Performed By: #### Claire HM7, IPB, MGO #### [facility] (DEFAULT) [address] [place] [address] 33068 Sodium [Moles/Vol] 145 mmol/L Normal 135-145 [facility] Comment on above: Performed By: #### Claire HM7, IPB, MGO #### [facility] (DEFAULT) [address] [place] [address] 37620 Urea nitrogen [Mass/Vol] 48 mg/dL High 7-25 [facility] Comment on above: Performed By: #### Claire HM7, IPB, MGO #### [facility] (DEFAULT) [address] [place] [address] 37327 Urea nitrogen/Creatinine [Mass ratio] 17 mg/mg Normal [facility] Comment on above: Performed By: #### C HM7, IPB, MGO #### [facility] (DEFAULT) [address] [place] [address] 44867 Anion gap [Moles/Vol] 15 mmol/L Normal 7-[address] [facility] Comment on above: Performed By: #### C HM7, IPB, MGO #### [facility] (DEFAULT) [address] [place] [address]34[address] Chloride [Moles/Vol] 105 mmol/L Normal 98-108 [facility] Comment on above: Performed By: #### C HM7, IPB, MGO #### [facility] (DEFAULT) [address] [place] [address] 17028 CO2 [Moles/Vol] 26 mmol/L Normal 21-31 [facility] Comment on above: Performed By: #### C HM7, IPB, MGO #### [facility] (DEFAULT) [address] [place] [address] 43839 Creatinine [Mass/Vol] 3.01 mg/dL High 0.70-1.[address] [facility] Comment on above: Performed By: #### C HM7, IPB, MGO #### [facility] (DEFAULT) [address] [place] [address] 95510 GFR/1.73 sq M.predicted among non-blacks MDRD (S/P/Bld) [Vol rate/Area] 23 mL/min/{1.73_m2} Low >=60 [facility] Comment on above: Result Comment: Repo rted eGFR is based on the CKD-EPI 2020 equation using creatinine, age, and sex. Performed By: #### C HM7, IPB, MGO #### [facility] (DEFAULT) [address] [place] [address] 67[address] Glucose [Mass/Vol] 89 mg/dL Normal 70-99 [facility] Comment on above: Performed By: #### Claire HM7, IPB, MGO #### [facility] (DEFAULT) [address] [place] [address] 11548 Osmolality [Osmolality] 310 mosm/kg High 278-305 [facility] Comment on above: Performed By: #### Claire HM7, IPB, MGO #### [facility] (DEFAULT) [address] [place] [address]9970 Potassium [Moles/Vol] 4.0 mmol/L Normal 3.5-5.[address] [facility] Comment on above: Performed By: #### Claire HM7, IPB, MGO #### [facility] (DEFAULT) [address] [place] [address] 94218 Sodium [Moles/Vol] 142 mmol/L Normal 135-145 [facility] Comment on above: Performed By: #### Claire HM7, IPB, MGO #### [facility] (DEFAULT) [address] [place] [address] 99567 Urea nitrogen [Mass/Vol] 53 mg/dL High 7-25 [facility] Comment on above: Performed By: #### Claire HM7, IPB, MGO #### [facility] (DEFAULT) [address] [place] [address] 917[address] Urea nitrogen/Creatinine [Mass ratio] 18 mg/mg Normal [facility] Comment on above: Performed By: #### Claire HM7, IPB, MGO #### [facility] (DEFAULT) [address] [place] [address] 78315 CHEM 7 (LYTES,BUN,CREA,GLUC) Ordered By: Donnell Barraza on 10-13-2024 Anion gap [Moles/Vol] 15 mmol/L 7 - 17 mmol/L [facility] Chloride [Moles/Vol] 105 mmol/L 98 - 10 8 mmol/L [facility] CO2 [Moles/Vol] 26 mmol/L 21 - 31 mmol/L [facility] Creatinine [Mass/Vol] 3.01 mg/dL High 0.70 - 1.30 mg/dL [facility] eGFR, CKD-EPI, Male 23 Low - PINF [facility] Comment on above: Reported eGFR is bas ed on the CKD-EPI 2020 equation using creatinine, age, and sex. Glucose [Mass/Vol] 89 mg/dL 70 - 99 mg/dL [facility] Interpretation and review of laboratory results Abnormal [facility] Osmolality Calc [Osmolality] 310 High [facility] Potassium [Moles/Vol] 4.0 mmol/L 3.5 - 5.0 mmol/L [facility] Sodium [Moles/Vol] 142 mmol/L 135 - 145 mmol/L [facility] Urea nitrogen [Mass/Vol] 53 mg/dL High 7 - 25 mg/dL [facility] Urea nitrogen/Creatinine [Mass ratio] 18 mg/mg [facility] GENERAL PROCEDUREOrdered By: Jennifer Lebron on 10-13-2024 Radiology Study observation (narrative) [facility] Work Phone: IONIZED CALCIUM, WHOLE BLOOD Ordered By: Negro Matamoros on 10-13-2024 Calcium.ionized (Bld) [Moles/Vol] 4.68 mg/dL 4.60 - 5.30 mg/dL [facility] Interpretation and review of laboratory results Normal [facility] IONIZED CALCIUM, WHOLE BLOOD on 10-13-2024 ICA 4.68 mg/dL Normal 4.60-5.30 [facility] Comment on above: Performed By: #### C HM7, IPB, MGO #### [facility] (DEFAULT) [address] [address] MAGNESIUMon 10-13-2024 Magnesium [Mass/Vol] 2.0 mg/dL 1.6 - 2 .6 mg/dL [facility] Magnesium [Mass/Vol] 2.0 mg/dL Normal 1.6-2.6 [facility] Comment on above: Performed By: #### ELEN GAMBINO, MGO #### [facility] (DEFAULT) [address] [place] [address] Magnesium [Mass/Vol] 2.1 mg/dL 1.6 - 2 .6 mg/dL [facility] Magnesium [Mass/Vol] 2.1 mg/dL Normal 1.6-2.6 [facility] Comment on above: Performed By: #### ELEN GAMBINO, MGO #### [facility] (DEFAULT) [address] [place] [address] No Panel Informationon 10-13 Interpretation and review of laboratory results Normal [facility] Interpretation and review of laboratory results Normal [facility] PHOSPHATE, INORGANICon 10-13 Phosphate [Mass/Vol] 4.3 mg/dL 2.2 - 4 .6 mg/dL [facility] Phosphorous 4.3 mg/dL Normal 2.2-4.6 [facility] Comment on above: Performed By: #### ELEN GAMBINO, MGO #### [facility] (DEFAULT) [address] [place] [address] Phosphate [Mass/Vol] 4.5 mg/dL 2.2 - 4 .6 mg/dL [facility] Phosphorous 4.5 mg/dL Normal 2.2-4.6 [facility] Comment on above: Performed By: #### Claire STAPLES, CASSIDYB, MGO #### [facility] (DEFAULT) [address] [place] [address] PLACEMENT NEPHROSTOMY CATHET ER PERCUTANEOUS W/ IMAGE [...] medication(s), I spent 44 minutes of continuous [id number] time with the patient. COMPARISON: CT abdomen/pelvis [...] that time. (more content not included)... Normal [facility] IMPRESSION: 1. Bilateral nephrostomy tube placement. [...] medication(s), I spent 44 minutes of continuous piro-[id number] time with the patient. COMPARISON: CT abdomen/pelvis [...] medication(s), I spent 44 minutes of continuous zvng-[id number] time with the patient. COMPARISON: CT abdomen/pelvis [...] obstruction. IMPRESSION IMPRESS (more content not included)... [facility] URINE CULTUREOrdered By: Gely Estrada on 10-13-2024 Bacteria identified Cx Nom (Unsp spec) Growth [facility] Bacteria identified Cx Nom (Unsp spec) GRAM-NEGATIVE BACILLUS Abnormal [facility] Comment on above: Susceptibilities not routinely performed. Interpretation and review of laboratory results Abnormal [facility] Urine Cultureon 10-13-2024 [facility] Normal [facility] Comment on above: Performed By: #### M [id number] ####[facility] [id number] [place], [place], [id number] ABORH TYPE RECONFIRMATIONon 10-12-2024 ABO/RH(D) TYPE Positive [facility] ABO/RH(D) TYPE Positive Normal [facility] Comment on above: Performed By: #### T YPEC #### [facility] (DEFAULT) [address] [place] [address] BLOOD CULTUREon 10-12-2024 Bacteria identified Cx Nom (Unsp spec) NO GROWTH DAY [address] [facility] Comment on above: Order Comment: 2 Bot tles (1 Set - consists of 1 Aerobic bottle and 1 Anaerobic bottle) -1st Peripheral DrawFor vacutainer method draw: Fill aerobic bottle first, then anaerobic Performed By: #### S URGP #### [facility] (DEFAULT) [address] [place], [place] [id number] Order Comment: 2 Bot tles (1 Set [...] 8.6 - 10. 5 mg/dL [facility] Calcium [Mass/Vol] 9.5 mg/dL Normal 8.6-10.5 [facility] Comment on above: Performed By: #### T YPEC #### [facility] (DEFAULT) [address] [place] [address] CBC AND ELECTRONIC DIFFon Basophils (Bld) [#/Vol] 0.06 10*3/uL 0.00 - 0.09 K/uL [facility] Basophils/100 WBC (Bld) 0.3 % [facility] Differential cell count method Nom (Bld) Electronic Differential O [facility] Eosinophils (Bld) [#/Vol] K/uL 0.00 - 0.48 K/uL [facility] Eosinophils/100 WBC (Bld) 0.1 % [facility] Erythrocyte distribution width (RBC) [Ratio] 15.8 % High 10.9 - 14.3 % [facility] Comment on above: This is an appended report. These results have been appended to a previously preliminary verified report. Hematocrit (Bld) [Volume fraction] 31.5 % Low 39.6 - 48.8 % [facility] Comment on above: This is an appended report. These results have been appended to a previously preliminary verified report. Hemoglobin (Bld) [Mass/Vol] 10.1 g/dL Low 13.4 - 16.8 g/dL [facility] Comment on above: This is an appended report. These results have been appended to a previously preliminary verified report. Immature granulocytes (Bld) [#/Vol] 0.33 10*3/uL High NINF - 0.07 K/uL [facility] Immature granulocytes/100 WBC (Bld) 1.6 % [facility] Interpretation and review of laboratory results Abnormal [facility] Lymphocytes (Bld) [#/Vol] 0.36 10*3/uL Low 0.83 - 3.57 K/uL [facility] Lymphocytes/100 WBC (Bld) 1.7 % [facility] MCH (RBC) [Entitic mass] 29.9 pg 26.1 - 33.3 pg [facility] Comment on above: This is an appended report. These results have been appended to a previously preliminary verified report. MCHC (RBC) [Mass/Vol] 32.1 g/dL 31.9 - 36.5 g/dL [facility] Comment on above: This is an appended report. These results have been appended to a previously preliminary verified report. MCV (RBC) [Entitic vol] 93.2 fL 79.0 - 94.5 fL [facility] Comment on above: This is an appended report. These results have been appended to a previously preliminary verified report. Monocytes (Bld) [#/Vol] 0.91 10*3/uL 0.24 - 0.93 K/uL [facility] Monocytes/100 WBC (Bld) 4.4 % [facility] Neutrophils (Bld) [#/Vol] 19.21 10*3/uL High 1.57 - 6.19 K/uL [facility] Nucleated RBC/100 WBC (Bld) [Ratio] 0.0 % [facility] Platelet mean volume (Bld) [Entitic vol] [facility] Comment on above: Not measured Platelets (Bld) [#/Vol] 557 10*3/uL High 146 - 337 K/uL [facility] Comment on above: This is an appended report. These results have been appended to a previously preliminary verified report. RBC (Bld) [#/Vol] 3.38 10*6/uL Low [facility] Comment on above: This is an appended report. These results have been appended to a previously preliminary verified report. Segmented neutrophils/100 WBC (Bld) 91.9 % [facility] WBC (Bld) [#/Vol] 20.89 10*3/uL High 3.73 - 10.10 K/uL [facility] Comment on above: This is an appended report. These results have been appended to a previously preliminary verified report. [facility] Abs Eos Auto < Normal 0.00-0.48 [facility] Comment on above: Performed By: #### U [id number] #### [facility] (DEFAULT) [address] [address] Basophils (Bld) [#/Vol] 0.06 10*3/uL Normal 0.00-0.09 [facility] Comment on above: Performed By: #### U [id number] #### [facility] (DEFAULT) [address] [address] Basophils/100 WBC (Bld) 0.3 % Normal [facility] Comment on above: Performed By: #### U [id number] #### [facility] (DEFAULT) [address] [address] DIFF STATUS Electronic Differential Normal [facility] Comment on above: Performed By: #### U [id number] #### [facility] (DEFAULT) [address] [address] Eosinophils/100 WBC (Bld) 0.1 % Normal [facility] Comment on above: Performed By: #### U [id number] #### [facility] (DEFAULT) [address] [address] Hematocrit (Bld) [Volume fraction] 31.5 % Low 39.6-48.8 [facility] Comment on above: Result Comment: This is an appended report. These results have been appended to a previously preliminary verified report. Performed By: #### U [id number] #### [facility] (DEFAULT) [address] [address] Hemoglobin (Bld) [Mass/Vol] 10.1 g/dL Low 13.4-16.8 [facility] Comment on above: Result Comment: This is an appended report. These results have been appended to a previously preliminary verified report. Performed By: #### U [id number] #### [facility] (DEFAULT) [address] [address] Immature Grans % 1.6 % Normal [facility] Comment on above: Performed By: #### U [id number] #### [facility] (DEFAULT) [address] [address] Immature Grans Absolute 0.33 K/uL High <=0.07 [facility] Comment on above: Performed By: #### U [id number] #### [facility] (DEFAULT) [address] [address] Lymphocytes (Bld) [#/Vol] 0.36 10*3/uL Low 0.83-3.57 [facility] Comment on above: Performed By: #### U [id number] #### [facility] (DEFAULT) [address] [address] Lymphocytes/100 WBC (Bld) 1.7 % Normal [facility] Comment on above: Performed By: #### U [id number] #### [facility] (DEFAULT) [address] [address] MCV (RBC) [Entitic vol] 93.2 fL Normal 79.0-94.5 [facility] Comment on above: Result Comment: This is an appended report. These results have been appended to a previously preliminary verified report. Performed By: #### U [id number] #### [facility] (DEFAULT) [address] [address] Mean Cell Hgb 29.9 pg Normal 26.1-33.3 [facility] Comment on above: Result Comment: This is an appended report. These results have been appended to a previously preliminary verified report. Performed By: #### U [id number] #### [facility] (DEFAULT) [address] [address] Mean Cell Hgb Conc 32.1 g/dL Normal 31.9-36.5 [facility] Comment on above: Result Comment: This is an appended report. These results have been appended to a previously preliminary verified report. Performed By: #### U [id number] #### [facility] (DEFAULT) [address] [address] Mean Platelet Volume Normal [facility] Comment on above: Result Comment: Not measured Performed By: #### U [id number] #### [facility] (DEFAULT) [address] [address] Monocytes (Bld) [#/Vol] 0.91 10*3/uL Normal 0.24-0.93 [facility] Comment on above: Performed By: #### U [id number] #### [facility] (DEFAULT) [address] [address] Monocytes/100 WBC (Bld) 4.4 % Normal [facility] Comment on above: Performed By: #### U [id number] #### [facility] (DEFAULT) [address] [address] Nucleated RBC 0.0 /100 WBC Normal <=0.2 [facility] Comment on above: Performed By: #### U [id number] #### [facility] (DEFAULT) [address] [address] Platelets (Bld) [#/Vol] 557 10*3/uL High 146-337 [facility] Comment on above: Result Comment: This is an appended report. These results have been appended to a previously preliminary verified report. Performed By: #### U [id number] #### [facility] (DEFAULT) [address] [address] RBC (Bld) [#/Vol] 3.38 10*6/uL Low 4.38-5.83 [facility] Comment on above: Result Comment: This is an appended report. These results have been appended to a previously preliminary verified report. Performed By: #### U [id number] #### [facility] (DEFAULT) [address] [address] RBC Distribution 15.8 % High 10.9-14.3 [facility] Comment on above: Result Comment: This is an appended report. These results have been appended to a previously preliminary verified report. Performed By: #### U [id number] #### [facility] (DEFAULT) [address] [address] Segs + Bands Auto 91.9 % Normal [facility] Comment on above: Performed By: #### U [id number] #### [facility] (DEFAULT) [address] [address] Segs + Bands,Absolute Auto 19.21 K/uL High 1.57-6.19 [facility] Comment on above: Performed By: #### U [id number] #### [facility] (DEFAULT) [address] [address] WBC (Bld) [#/Vol] 20.89 10*3/uL High 3.73-10.10 [facility] Comment on above: Result Comment: This is an appended report. These results have been appended to a previously preliminary verified report. Performed By: #### U [id number] #### [facility] (DEFAULT) [address] [address] CHEM 7 (LYTES,BUN,CREA,GLUC) on 10-12-2024 Anion gap [Moles/Vol] 21 mmol/L High 7 - 17 mmol/L [facility] Chloride [Moles/Vol] 99 mmol/L 98 - 10 8 mmol/L [facility] CO2 [Moles/Vol] 25 mmol/L 21 - 31 mmol/L [facility] Creatinine [Mass/Vol] 3.01 mg/dL High 0.70 - 1.30 mg/dL [facility] eGFR, CKD-EPI, Male 23 Low - PINF [facility] Comment on above: Reported eGFR is bas ed on the CKD-EPI 2020 equation using creatinine, age, and sex. Glucose [Mass/Vol] 112 mg/dL High 70 - 99 mg/dL [facility] Osmolality Calc [Osmolality] 312 High [facility] Potassium [Moles/Vol] 5.6 mmol/L High 3.5 - 5.0 mmol/L [facility] Comment on above: Specimen slightly he molyzed. Potassium results may be falsey elevated by more than 0.5 mmol/L. Consider recollection. Sodium [Moles/Vol] 139 mmol/L 135 - 145 mmol/L [facility] Urea nitrogen [Mass/Vol] 60 mg/dL High 7 - 25 mg/dL [facility] Urea nitrogen/Creatinine [Mass ratio] 20 mg/mg [facility] Anion gap [Moles/Vol] 21 mmol/L High 7-17 [facility] Comment on above: Performed By: #### S URGP #### [facility] (DEFAULT) [address] [place] [address] Chloride [Moles/Vol] 99 mmol/L Normal 98-108 [facility] Comment on above: Performed By: #### S URGP #### [facility] (DEFAULT) [address] [place] [address] CO2 [Moles/Vol] 25 mmol/L Normal 21-31 [facility] Comment on above: Performed By: #### S URGP #### [facility] (DEFAULT) [address] [place] [address] Creatinine [Mass/Vol] 3.01 mg/dL High 0.70-1.[address] [facility] Comment on above: Performed By: #### S URGP #### [facility] (DEFAULT) [address] [address] GFR/1.73 sq M.predicted among non-blacks MDRD (S/P/Bld) [Vol rate/Area] 23 mL/min/{1.73_m2} Low >=60 [facility] Comment on above: Result Comment: Repo rted eGFR is based on the CKD-EPI 2020 equation using creatinine, age, and sex. Performed By: #### S URGP #### [facility] (DEFAULT) [address] [address] Glucose [Mass/Vol] 112 mg/dL High 70-99 [facility] Comment on above: Performed By: #### S URGP #### [facility] (DEFAULT) [address] [address] Osmolality [Osmolality] 312 mosm/kg High 278-305 [facility] Comment on above: Performed By: #### S URGP #### [facility] (DEFAULT) [address] [place] [address] Potassium [Moles/Vol] 5.6 mmol/L High 3.5-5.[address] [facility] Comment on above: Result Comment: Spec imen slightly hemolyzed. Potassium results may be falsey elevated by more than 0.5 mmol/L. Consider recollection. Performed By: #### S URGP #### [facility] (DEFAULT) [address] [place] [address] Sodium [Moles/Vol] 139 mmol/L Normal 135-145 [facility] Comment on above: Performed By: #### S URGP #### [facility] (DEFAULT) [address] [place] [address] Urea nitrogen [Mass/Vol] 60 mg/dL High 7-25 [facility] Comment on above: Performed By: #### S URGP #### [facility] (DEFAULT) [address] [place] [address] Urea nitrogen/Creatinine [Mass ratio] 20 mg/mg Normal [facility] Comment on above: Performed By: #### S URGP #### [facility] (DEFAULT) [address] [place] [address] CREATININE SERUMon Creatinine [Mass/Vol] 3.06 mg/dL High 0.70 - 1.30 mg/dL [facility] eGFR, CKD-EPI, Male 23 Low - PINF [facility] Comment on above: Reported eGFR is bas ed on the CKD-EPI 2021 equation using creatinine, age, and sex. Interpretation and review of laboratory results Abnormal [facility] Creatinine [Mass/Vol] 3.06 mg/dL High 0.70-1.[address] [facility] Comment on above: Performed By: #### C REAB ####[facility] (DEFAULT)[address] [place] [address] GFR/1.73 sq M.predicted among non-blacks MDRD (S/P/Bld) [Vol rate/Area] 23 mL/min/{1.73_m2} Low >=60 [facility] Comment on above: Result Comment: Repo rted eGFR is based on the CKD-EPI 202 equation using creatinine, age, and sex. Performed By: #### C REAB ####[facility] (DEFAULT)[address] [place] [address] CREATININE,RANDOM URINEon Creatinine (24H U) [Mass/Vol] 55.45 mg/dL [facility] Creatinine (U) [Mass/Vol] 55.45 mg/dL Normal [facility] Comment on above: Order Comment: The r eference range has not been established for random urine specimens. The test result should be integrated into the clinical context for interpretation. Performed By: #### S URGP #### [facility] (DEFAULT) [address] [place] [address] EXTRA MICROon 10-12-2024 [facility] GENERAL PROCEDUREon 10-12-20 Miguel A Holloway MD [...] care. Miguel A Holloway MD Integrated Interventional Director Consumer PGY-6 [facility] GENERAL PROCEDUREOrdered By: Jennifer Lebron on 10-12-2024 [facility] Work Phone: LACTATE, BLOODOrdered By: Teagan Jean on 10-12-2024 Interpretation and review of laboratory results Normal [facility] Lactate [Moles/Vol] 1.3 mmol/L 0.5 - 1. 6 mmol/L [facility] LACTATE, BLOODon 12-24-2024 Lactate, Blood 1.3 mmol/L Normal 0.5-1.6 [facility] Comment on above: Performed By: #### S URGP #### [facility] (DEFAULT) [address] [place] [address] LYTES (NA, K, CL) - URINE - RANDOMon 10-12-2024 Chloride (24H U) [Moles/Vol] 51 mmol/L [facility] Potassium (24H U) [Moles/Vol] 39.9 mmol/L [facility] Sodium (24H U) [Moles/Vol] 61 mmol/L [facility] Sodium (U) [Moles/Vol] 61 mmol/L Normal [facility] Comment on above: Order Comment: The r eference range has not been established for random urine specimens. The test result should be integrated into the clinical context for interpretation. Performed By: #### S URGP #### [facility] (DEFAULT) [address] [place] [address] Urine Chloride 51 mmol/L Normal [facility] Comment on above: Order Comment: The r eference range has not been established for random urine specimens. The test result should be integrated into the clinical context for interpretation. Performed By: #### S URGP #### [facility] (DEFAULT) [address] [place] [address] Urine Potassium 39.9 mmol/L Normal [facility] Comment on above: Order Comment: The r eference range has not been established for random urine specimens. The test result should be integrated into the clinical context for interpretation. Performed By: #### S URGP #### [facility] (DEFAULT) [address] [place] [address] MAGNESIUMon 10-12-2024 Magnesium [Mass/Vol] 2.3 mg/dL 1.6 - 2 .6 mg/dL [facility] Magnesium [Mass/Vol] 2.3 mg/dL Normal 1.6-2.6 [facility] Comment on above: Performed By: #### T YPEC #### [facility] (DEFAULT) [address] [place] [address] No Panel Informationon 10-12 The reference range has not been established for random urine specimens. The test result should be integrated into the clinical context for interpretation. [facility] Interpretation and review of laboratory results Abnormal [facility] Interpretation and review of laboratory results Normal [facility] PHOSPHATE, INORGANICon 10-12 Phosphate [Mass/Vol] 6.1 mg/dL High 2.2 - 4 .6 mg/dL [facility] Phosphorous 6.1 mg/dL High 2.2-4.6 [facility] Comment on above: Performed By: #### S URGP #### [facility] (DEFAULT) [address] [place] [address] PLACEMENT NEPHROSTOMY CATHET ER PERCUTANEOUS W/ IMAGE GUIDANCEon 10-12-2024 Radiology Study observation (narrative) [facility] PREALBUMINon 10-12-2024 Prealbumin [Mass/Vol] 12 mg/dL Low 17 - 3 4 mg/dL [facility] Prealbumin [Mass/Vol] 12 mg/dL Low 17-[address] [facility] Comment on above: Performed By: #### S URGP #### [facility] (DEFAULT) [address] [place] [address] PT,INR,PTTon 10-12-2024 aPTT Coag (PPP) [Time] 28.2 s [facility] INR Coag (Bld) [Relative time] 1.2 {INR} High 0.9 - 1.1 [facility] Interpretation and review of laboratory results Abnormal [facility] PT Coag (PPP) [Time] 15.4 s High [facility] aPTT Coag (Bld) [Time] 28.2 s Normal 24.0-34.3 [facility] Comment on above: Performed By: #### C HM7, IPB, MGO #### [facility] (DEFAULT) [address] [place] [address] INR Coag (PPP) [Relative time] 1.2 {INR} High 0.9-1.1 [facility] Comment on above: Performed By: #### C HM7, IPB, MGO #### [facility] (DEFAULT) [address] [place], [place] [address] PT Coag (PPP) [Time] 15.4 s High 11.9-14.2 [facility] Comment on above: Performed By: #### C HM7, IPB, MGO #### [facility] (DEFAULT) [address] [place] [address] Portable XR Chest Viewson IMPRESSION: Properly positioned [...] left chest port. No pneumothorax. [facility] Radiology Study observation (narrative) [facility] Portable XR Chest ViewsOrder ed By: Marie Espinoza on 10-12-2024 [facility] Work Phone: TYPE AND SCREENon 12-24-2024 ABO/RH(D) TYPE Positive [facility] Outdate Specimen 10/15/2024 23:59 OS [facility] ABO/RH(D) TYPE Positive Normal [facility] Comment on above: Performed By: #### X M #### [facility] (DEFAULT) [address] [place] [address] Outdate Specimen 10/15/2024 23:59 Normal [facility] Comment on above: Performed By: #### X M #### [facility] (DEFAULT) [address] [place] [address] URINALYSIS REFLEX TO CULTURE PERFORMABLEOrdered By: Eladio Allen on 10-12-2024 Appearance (U) Turbid Abnormal Clear [facility] Bacteria LM Ql (Urine sed) PRESENT Abnormal ABSENT [facility] Color (U) Yellow Yellow [facility] Epithelial cells.squamous LM Ql (Urine sed) 0-2/hpf 0-2/hpf, 3-5/hpf = [facility] Glucose Test strip (U) [Mass/Vol] Negative [facility] Interpretation and review of laboratory results Abnormal [facility] Ketones (U) [Mass/Vol] Negative Negative [facility] Leukocyte esterase Test strip Ql (U) Large Abnormal Negative [facility] Nitrite Ql (U) Negative Negative [facility] pH (U) 5.5 [pH] 5.0 - 7.0 [facility] Protein (U) [Mass/Vol] 30 mg/dL Abnormal Negative [facility] RBC (U) [#/Vol] Moderate Abnormal Negative [facility] North RBC LM.HPF (Urine sed) [#/Area] 6-10 [facility] Specific gravity (U) [Rel density] 1.013 1.001 - 1.035 [facility] Urobilinogen (U) [Mass/Vol] 0.2 E.U./dL 0.2 E.U/dL, 1.0 E.U/dL [facility] WBC LM.HPF (Urine sed) [#/Area] /[HPF] Abnormal [facility] URINALYSIS REFLEX TO CULTURE PERFORMABLEon 10-12-2024 Appearance (U) Turbid Abnormal Clear [facility] Comment on above: Order Comment: For i ndwelling catheters, specimen collection is acceptable on catheter day 1 and 2 only. ? Performed By: #### U [id number] #### [facility] (DEFAULT) [address] [place] [address] Bacteria PRESENT Abnormal ABSENT [facility] Comment on above: Order Comment: For i ndwelling catheters, specimen collection is acceptable on catheter day 1 and 2 only. ? Performed By: #### U [id number] #### [facility] (DEFAULT) [address] [address] Blood Urine Moderate Abnormal Negative [facility] Comment on above: Order Comment: For i ndwelling catheters, specimen collection is acceptable on catheter day 1 and 2 only. ? Performed By: #### U [id number] #### [facility] (DEFAULT) [address] [place] [address] Color (U) Yellow Normal Yellow [facility] Comment on above: Order Comment: For i ndwelling catheters, specimen collection is acceptable on catheter day 1 and 2 only. ? Performed By: #### U [id number] #### [facility] (DEFAULT) [address] [place] [address] Glucose Ql (U) Negative Normal Negative [facility] Comment on above: Order Comment: For i ndwelling catheters, specimen collection is acceptable on catheter day 1 and 2 only. ? Performed By: #### U [id number] #### [facility] (DEFAULT) [address] [address] Ketones Ql (U) Negative Normal Negative [facility] Comment on above: Order Comment: For i ndwelling catheters, specimen collection is acceptable on catheter day 1 and 2 only. ? Performed By: #### U [id number] #### [facility] (DEFAULT) [address] [place] [address] Leukocyte esterase Test strip Ql (U) Large Abnormal Negative [facility] Comment on above: Order Comment: For i ndwelling catheters, specimen collection is acceptable on catheter day 1 and 2 only. ? Performed By: #### U [id number] #### [facility] (DEFAULT) [address] [place] [address] Nitrites Urine Negative Normal Negative [facility] Comment on above: Order Comment: For i ndwelling catheters, specimen collection is acceptable on catheter day 1 and 2 only. ? Performed By: #### U [id number] #### [facility] (DEFAULT) [address] [place] [address] pH (U) 5.5 [pH] Normal 5.0-7.0 [facility] Comment on above: Order Comment: For i ndwelling catheters, specimen collection is acceptable on catheter day 1 and 2 only. ? Performed By: #### U [id number] #### [facility] (DEFAULT) [address] [place] [address] Protein Urine 30 mg/dL Abnormal Negative [facility] Comment on above: Order Comment: For i ndwelling catheters, specimen collection is acceptable on catheter day 1 and 2 only. ? Performed By: #### U [id number] #### [facility] (DEFAULT) [address] [place] [address] RBC Urine 6-10 Abnormal 0-2 [facility] Comment on above: Order Comment: For i ndwelling catheters, specimen collection is acceptable on catheter day 1 and 2 only. ? Performed By: #### U [id number] #### [facility] (DEFAULT) [address] [place] [address] Specific [place] Urine 1.013 Normal 1.001 -1.[address] [facility] Comment on above: Order Comment: For i ndwelling catheters, specimen collection is acceptable on catheter day 1 and 2 only. ? Performed By: #### U [id number] #### [facility] (DEFAULT) [address] [place] [address] Squamous/Epithelial Cells 0-2/hpf Normal 0-2/hpf, 3-5/hpf = 1+ [facility] Comment on above: Order Comment: For i ndwelling catheters, specimen collection is acceptable on catheter day 1 and 2 only. ? Performed By: #### U [id number] #### [facility] (DEFAULT) [address] [address] Urobilinogen Urine 0.2 E.U./dL Normal 0.2 E.U/dL, 1.0 E.U/dL [facility] Comment on above: Order Comment: For i ndwelling catheters, specimen collection is acceptable on catheter day 1 and 2 only. ? Performed By: #### U [id number] #### [facility] (DEFAULT) [address] [address] WBC LM.HPF (Urine sed) [#/Area] /[HPF] Abnormal 0 - 5 [facility] Comment on above: Order Comment: For i ndwelling catheters, specimen collection is acceptable on catheter day 1 and 2 only. ? Performed By: #### U [id number] #### [facility] (DEFAULT) [address] [address] URINE CULTUREon 10-12-2024 Bacteria identified Cx Nom (U) Normal [facility] Comment on above: Order Comment: For [...] Performed By: #### S URGP #### [facility] (DEFAULT) [address] [address] XR ABDOMEN 1 VIEWon 10-12-20 24 XR [...] gaseous dilatation of the small bowel. Normal [facility] XR ABDOMEN 1 VIEW EXAM: XR ABDOMEN 1 V IEW, 10/12/2024 12:15 PM COMPARISON: Compared to prior study dated October 12, 2024 CLINICAL INDICATIONS: Confirm ng placement FINDINGS/IMPRESSION: Tubes: NG tube tip and sidehole are in the stomach. Bowel gas pattern: Slight interval increase in small bowel dilatation in the visualized upper abdomen. No visible free air. Normal [facility] XR ABDOMEN 1 VIEW PORTABLEon 10-12-2024 [...] bowel obstruction. No visible free air. Normal [facility] XR Abdomen Single viewon IMPRESSION: Enteric [...] dilatation of the small bowel. [facility] Radiology Study observation (narrative) [facility] FINDINGS/IMPRESSION: Tubes: NG tube tip and sidehole [...] visualized upper abdomen. No visible free air. [facility] Radiology Study observation (narrative) [facility] FINDINGS/IMPRESSION: Tubes: None. Bowel gas pattern: Gaseous [...] obstruction. No visible free air. [facility] Radiology Study observation (narrative) [facility] XR Abdomen Single viewOrdere d By: Sunny Winter on 10-12-2024 [facility] Work Phone: XR Abdomen Single viewOrdere d By: Cahrles Armendariz on 10-12-2024 [facility] Work Phone: XR CHEST 1 VIEW PORTABLEon [...] positioned left chest port. No pneumothorax. Normal [facility] Abdomen/Pel W ORAL Cont Only on 10-11-2024 Abdomen/Pel W ORAL Cont Only Normal [facility] Blood manual differential co mment interpretation (narrative result)Ordered By: Guy Ho on 10-11-2024 Manual differential comment Leonard (Bld) [Interp] COMMENT [facility] Comment on above: NEUTROPHILIA.LYMPHOP ENIA. CBC W/Diff, Automatedon 12- SMEAR COMMENT COMMENT Normal [facility] Comment on above: Result Comment: NEUT ROPHILIA.LYMPHOPENIA. Performed By: #### L 100.0100, L504.2610, L500.4050 ####[facility] [address] [place], [address] Chest PA and Lateralon 10-11 Chest PA and Lateral Normal [facility] Comprehensive Metabolic Prof ilon 10-11-2024 Albumin [Mass/Vol] 2.5 g/dL Low 3.2-5.0 [facility] Comment on above: Order Comment: 1 Performed By: #### L 100.0100, L504.2610, L500.4050 ####[facility] [address] [place], [address] Albumin/Globulin [Mass ratio] 0.4 {ratio} Low 0.9-2.4 [facility] Comment on above: Order Comment: 1 Performed By: #### L 100.0100, L504.2610, L500.4050 ####[facility] [address] [place], [address] ALK P 122 U/L High 45-117 [facility] Comment on above: Order Comment: 1 Performed By: #### L 100.0100, L504.2610, L500.4050 ####[facility] [address] [place], [address] ALT [Catalytic activity/Vol] 28 U/L Normal 16-61 [facility] Comment on above: Order Comment: 1 Performed By: #### L 100.0100, L504.2610, L500.4050 ####[facility] [address] [place], [address] AST [Catalytic activity/Vol] 15 U/L Normal 15-37 [facility] Comment on above: Order Comment: 1 Performed By: #### L 100.0100, L504.2610, L500.4050 ####[facility] [address] [place], [address] Bilirubin [Mass/Vol] 0.40 mg/dL Normal 0.20-1.00 [facility] Comment on above: Order Comment: 1 Result Comment: For patients on eltrombopag therapy, use of Dimension [place] TBIL is not recommended. Performed By: #### L 100.0100, L504.2610, L500.4050 ####[facility] [address] [place], [address] BUN/CRE 19.8 RATIO Normal 10-20 [facility] Comment on above: Order Comment: 1 Performed By: #### L 100.0100, L504.2610, L500.4050 ####[facility] [address] [place], [address] CA,Total 10.1 mg/dL Normal 8.5-10.1 [facility] Comment on above: Order Comment: 1 Performed By: #### L 100.0100, L504.2610, L500.4050 ####[facility] [address] [place], [address] Chloride [Moles/Vol] 100 mmol/L Normal 98-107 [facility] Comment on above: Order Comment: 1 Performed By: #### L 100.0100, L504.2610, L500.4050 ####[facility] [address] [place], [address] CO2 [Moles/Vol] 25.0 mmol/L Normal 21.0-32.0 [facility] Comment on above: Order Comment: 1 Performed By: #### L 100.0100, L504.2610, L500.4050 ####[facility] [address] [place], [address] Creatinine [Mass/Vol] 3.24 mg/dL High 0.70-1.30 [facility] Comment on above: Order Comment: 1 Result Comment: The validity of the calculated GFR GFRAA in patients over70 years has not been determined. Clinical correlation isessential. Performed By: #### L 100.0100, L504.2610, L500.4050 ####[facility] [address] [place], [address] ECRCL 18.02 ml/min Normal [facility] Comment on above: Order Comment: 1 Performed By: #### L 100.0100, L504.2610, L500.4050 ####[facility] [address] [place], [address] EST GFR - AA 25 mL/min Low >60 [facility] Comment on above: Order Comment: 1 Result Comment: Afri can [place]ran GFR Calc Performed By: #### L 100.0100, L504.2610, L500.4050 ####[facility] [address] [place], [address] GAP 9 Normal 5-15 [facility] Comment on above: Order Comment: 1 Performed By: #### L 100.0100, L504.2610, L500.4050 ####[facility] [address] [place], [address] GFR/1.73 sq M.predicted among non-blacks MDRD (S/P/Bld) [Vol rate/Area] 21 mL/min/{1.73_m2} Low >60 [facility] Comment on above: Order Comment: 1 Result Comment: Non- GFR Calc Performed By: #### L 100.0100, L504.2610, L500.4050 ####[facility] [address] [place], [address] Globulin (S) [Mass/Vol] 6.1 g/dL High 2.2-4.2 [facility] Comment on above: Order Comment: 1 Performed By: #### L 100.0100, L504.2610, L500.4050 ####[facility] [address] [place], [address] Glucose [Mass/Vol] 132 mg/dL High 74-106 [facility] Comment on above: Order Comment: 1 Result Comment: Fast ing Glucose result greater than or equal to 126 mg/dLsuggests DIABETES MELLITUS per A.D.A. criteria. Performed By: #### L 100.0100, L504.2610, L500.4050 ####[facility] [address] [place], [address] Potassium [Moles/Vol] 4.6 mmol/L Normal 3.5-5.1 [facility] Comment on above: Order Comment: 1 Performed By: #### L 100.0100, L504.2610, L500.4050 ####[facility] [address] [place], [address] Sodium [Moles/Vol] 134 mmol/L Low 136-145 [facility] Comment on above: Order Comment: 1 Performed By: #### L 100.0100, L504.2610, L500.4050 ####[facility] [address] [place], [address] T PROT 8.6 g/dL High 6.4-8.2 [facility] Comment on above: Order Comment: 1 Performed By: #### L 100.0100, L504.2610, L500.4050 ####[facility] [address] [place], [address] Urea nitrogen [Mass/Vol] 64 mg/dL High 7-18 [facility] Comment on above: Order Comment: 1 Performed By: #### L 100.0100, L504.2610, L500.4050 ####[facility] [address] [place], [address] Emergency Department Summary on 10-11-2024 Emergency Department Summary Normal [facility] LDHon 10-11-2024 LDH 101 U/L Normal 87-241 [facility] Comment on above: Order Comment: 1 Performed By: #### L 100.0100, L504.2610, L500.4050 ####[facility] [address] [place], [address] Oncology Visit Reporton 09-20 Oncology Visit Report Normal [facility] Urinalysis, Completeon 10-11 BACTERIA 2+ /hpf Normal None Seen [facility] Comment on above: Order Comment: LOUANN CTOR TO SPECIFY Performed By: #### L 400.0001 ####[facility] [address] [place], [address] EPI,SQUAMOUS 0-5 SEEN Normal 0-5 [facility] Comment on above: Order Comment: LOUANN CTOR TO SPECIFY Performed By: #### L 400.0001 ####[facility] [address] [place], [address] Mucus Ql (Urine sed) 1+ /hpf Normal [facility] Comment on above: Order Comment: LOUANN CTOR TO SPECIFY Performed By: #### L 400.0001 ####[facility] [address] [place], [address] RBC 0-5 SEEN Normal 0-5 [facility] Comment on above: Order Comment: LOUANN CTOR TO SPECIFY Performed By: #### L 400.0001 ####[facility] [address] [place], [address] WBC 50-100 SEEN Normal 0-5 [facility] Comment on above: Order Comment: LOUANN CTOR TO SPECIFY Performed By: #### L 400.0001 ####[facility] [address] [place], [address] MRI RECTUM WITHOUT AND WITH CONTRASTon 10-07-2024 [...] Ostomy is only seen on the wider jjqpr-if-[id number] images. In the upper aspect of the [...] not fully evaluated on this exam. Normal [facility] BRCon 09-27-2024 RC Normal [facility] Comment on above: Result Comment: [id number] OP RC TRANSFUSED 09/28/24 1047 Performed By: #### B RC, BTS ####[facility] [address] [place], [address] Basic Metabolic Profile (BMP )on 09-27-2024 BUN Normal 7-18 [facility] Comment on above: Result Comment: DUPL ICATE ORDER TO INTERNAL ORDER Performed By: #### L 500.2500 ####[facility] [address] [place], [address] BUN/CRE Normal 10-20 [facility] Comment on above: Result Comment: DUPL ICATE ORDER TO INTERNAL ORDER Performed By: #### L 500.2500 ####[facility] [address] [place], [address] CA,Total Normal 8.5-10.1 [facility] Comment on above: Result Comment: DUPL ICATE ORDER TO INTERNAL ORDER Performed By: #### L 500.2500 ####[facility] [address] [place], [address] CL Normal 98-107 [facility] Comment on above: Result Comment: DUPL ICATE ORDER TO INTERNAL ORDER Performed By: #### L 500.2500 ####[facility] [address] [place], [address] CO2 Normal 21.0-32.0 [facility] Comment on above: Result Comment: DUPL ICATE ORDER TO INTERNAL ORDER Performed By: #### L 500.2500 ####[facility] [address] [place], [address] CREAT,SERUM Normal 0.70-1.30 [facility] Comment on above: Result Comment: DUPL ICATE ORDER TO INTERNAL ORDER Performed By: #### L 500.2500 ####[facility] [address] [place], [address] EST GFR Normal >60 [facility] Comment on above: Result Comment: DUPL ICATE ORDER TO INTERNAL ORDER Performed By: #### L 500.2500 ####[facility] [address] [place], [address] EST GFR - AA Normal >60 [facility] Comment on above: Result Comment: DUPL ICATE ORDER TO INTERNAL ORDER Performed By: #### L 500.2500 ####[facility] [address] [place], [address] GAP Normal 5-15 [facility] Comment on above: Result Comment: DUPL ICATE ORDER TO INTERNAL ORDER Performed By: #### L 500.2500 ####[facility] [address] [place], [address] GLU Normal 74-106 [facility] Comment on above: Result Comment: DUPL ICATE ORDER TO INTERNAL ORDER Performed By: #### L 500.2500 ####[facility] [address] [place], [address] Potassium Normal 3.5-5.1 [facility] Comment on above: Result Comment: DUPL ICATE ORDER TO INTERNAL ORDER Performed By: #### L 500.2500 ####[facility] [address] [place], [address] Basic Metabolic Profile (BMP) Normal 136-145 [facility] Comment on above: Result Comment: DUPL ICATE ORDER TO INTERNAL ORDER Performed By: #### L 500.2500 ####[facility] [address] [place], [address] CBC W/Diff, Automatedon 12-0 9-2023 Absolute Lymph 0.35 X10 3/uL Low 0.83-4.51 [facility] Comment on above: Performed By: #### L 100.0100, L500.4050 ####[facility] [address] [place], [address] Absolute Neut 11.1 X10 3/uL High 2.0-7.7 [facility] Comment on above: Performed By: #### L 100.0100, L500.4050 ####[facility] [address] [place], [address] Basophils/100 WBC (Bld) 0.5 % Normal 0-1 [facility] Comment on above: Performed By: #### L 100.0100, L500.4050 ####[facility] [address] [place], [address] Eosinophils/100 WBC (Bld) 1.0 % Normal 0-5 [facility] Comment on above: Performed By: #### L 100.0100, L500.4050 ####[facility] [address] [place], [address] Erythrocyte distribution width (RBC) [Ratio] 16.3 % High 11.6-14.6 [facility] Comment on above: Performed By: #### L 100.0100, L500.4050 ####[facility] [address] [place], [address] Hematocrit (Bld) [Volume fraction] 22.0 % Low 40-54 [facility] Comment on above: Performed By: #### L 100.0100, L500.4050 ####[facility] [address] [place], [address] Hemoglobin (Bld) [Mass/Vol] 6.9 g/dL Low 13.0-16.5 [facility] Comment on above: Performed By: #### L 100.0100, L500.4050 ####[facility] [address] [place], [id number] IG% 2.100 High 0.0-0.9 [facility] Comment on above: Result Comment: IG% - Immature Granulocytes (promyelocytes, myelocytes andmetamyelocytes) > 1% indicates that a LEFT SHIFT is Present. Performed By: #### L 100.0100, L500.4050 ####[facility] [address] [place], [id number] Lymphocytes/100 WBC (Bld) 2.7 % Low 19-41 [facility] Comment on above: Performed By: #### L 100.0100, L500.4050 ####[facility] [address] [place], [address] MCH (RBC) [Entitic mass] 29.2 pg Normal 27.0-32.0 [facility] Comment on above: Performed By: #### L 100.0100, L500.4050 ####[facility] [address] [place], [address] MCHC (RBC) [Mass/Vol] 31.4 g/dL Low 32-36 [facility] Comment on above: Performed By: #### L 100.0100, L500.4050 ####[facility] [address] [place], [address] MCV (RBC) [Entitic vol] 93.2 fL Normal 80-94 [facility] Comment on above: Performed By: #### L 100.0100, L500.4050 ####[facility] [address] [place], [address] Monocytes/100 WBC (Bld) 6.8 % Normal 0-10 [facility] [facility] Comment on above: Performed By: #### L 100.0100, L500.4050 ####[facility] [address] [place], [id number] Neutrophils/100 WBC (Bld) 86.9 % High 47-70 [facility] Comment on above: Performed By: #### L 100.0100, L500.4050 ####[facility] [address] [place], [id number] Nucleated RBC (Bld) [#/Vol] 0 10*3/uL Normal 0-5 [facility] Comment on above: Performed By: #### L 100.0100, L500.4050 ####[facility] [address] [place], [address] Platelet mean volume (Bld) [Entitic vol] 8.6 fL Normal 6.2-12.0 [facility] Comment on above: Performed By: #### L 100.0100, L500.4050 ####[facility] [address] [place], [address] Platelets (Bld) [#/Vol] 562 10*3/uL High 150-450 [facility] Comment on above: Performed By: #### L 100.0100, L500.4050 ####[facility] [address] [place], [address] RBC (Bld) [#/Vol] 2.36 10*6/uL Low 4.6-6.2 [facility] Comment on above: Performed By: #### L 100.0100, L500.4050 ####[facility] [address] [place], [id number] RDW SD 55.6 fl High 35.1-43.9 [facility] Comment on above: Performed By: #### L 100.0100, L500.4050 ####[facility] [address] [place], [id number] WBC (Bld) [#/Vol] 12.8 10*3/uL High 4.4-11.0 [facility] Comment on above: Performed By: #### L 100.0100, L500.4050 ####[facility] [address] [place], [address] Comprehensive Metabolic Prof ilon 09-27-2024 Albumin [Mass/Vol] 2.2 g/dL Low 3.2-5.0 [facility] Comment on above: Performed By: #### L 100.0100, L500.4050 ####[facility] [address] [place], [address] Albumin/Globulin [Mass ratio] 0.4 {ratio} Low 0.9-2.4 [facility] Comment on above: Performed By: #### L 100.0100, L500.4050 ####[facility] [address] [place], [address] ALK P 134 U/L High 45-117 [facility] Comment on above: Performed By: #### L 100.0100, L500.4050 ####[facility] [address] [place], [address] ALT [Catalytic activity/Vol] 40 U/L Normal 16-61 [facility] Comment on above: Performed By: #### L 100.0100, L500.4050 ####[facility] [address] [place], [address] AST [Catalytic activity/Vol] 20 U/L Normal 15-37 [facility] Comment on above: Performed By: #### L 100.0100, L500.4050 ####[facility] [address] [place], [address] Bilirubin [Mass/Vol] 0.30 mg/dL Normal 0.20-1.00 [facility] Comment on above: Result Comment: For patients on eltrombopag therapy, use of Dimension [place] TBIL is not recommended. Performed By: #### L 100.0100, L500.4050 ####[facility] [address] [place], [address] BUN/CRE 21.6 RATIO High 10-20 [facility] Comment on above: Performed By: #### L 100.0100, L500.4050 ####[facility] [address] [place], [address] CA,Total 9.4 mg/dL Normal 8.5-10.1 [facility] Comment on above: Performed By: #### L 100.0100, L500.4050 ####[facility] [address] [place], [address] Chloride [Moles/Vol] 103 mmol/L Normal 98-107 [facility] Comment on above: Performed By: #### L 100.0100, L500.4050 ####[facility] [address] [place], [address] CO2 [Moles/Vol] 28.0 mmol/L Normal 21.0-32.0 [facility] Comment on above: Performed By: #### L 100.0100, L500.4050 ####[facility] [address] [place], [address] Creatinine [Mass/Vol] 2.32 mg/dL High 0.70-1.30 [facility] Comment on above: Result Comment: The validity of the calculated GFR GFRAA in patients over70 years has not been determined. Clinical correlation isessential. Performed By: #### L 100.0100, L500.4050 ####[facility] [address] [place], [address] ECRCL 25.26 ml/min Normal [facility] Comment on above: Performed By: #### L 100.0100, L500.4050 ####[facility] [address] [place], [address] EST GFR - AA 37 mL/min Low >60 [facility] Comment on above: Result Comment: Afri can Andorran GFR Calc Performed By: #### L 100.0100, L500.4050 ####[facility] [address] [place], [address] GAP 6 Normal 5-15 [facility] Comment on above: Performed By: #### L 100.0100, L500.4050 ####[facility] [address] [place], [address] GFR/1.73 sq M.predicted among non-blacks MDRD (S/P/Bld) [Vol rate/Area] 31 mL/min/{1.73_m2} Low >60 [facility] Comment on above: Result Comment: Non- GFR Calc Performed By: #### L 100.0100, L500.4050 ####[facility] [address] [place], [id number] Globulin (S) [Mass/Vol] 5.4 g/dL High 2.2-4.2 [facility] Comment on above: Performed By: #### L 100.0100, L500.4050 ####[facility] [address] [place], [address] Glucose [Mass/Vol] 140 mg/dL High 74-106 [facility] Comment on above: Result Comment: Fast ing Glucose result greater than or equal to 126 mg/dLsuggests DIABETES MELLITUS per A.D.A. criteria. Performed By: #### L 100.0100, L500.4050 ####[facility] [address] [place], [address] Potassium [Moles/Vol] 4.0 mmol/L Normal 3.5-5.1 [facility] Comment on above: Performed By: #### L 100.0100, L500.4050 ####[facility] [address] [place], [address] Sodium [Moles/Vol] 138 mmol/L Normal 136-145 [facility] Comment on above: Performed By: #### L 100.0100, L500.4050 ####[facility] [address] [place], [address] T PROT 7.6 g/dL Normal 6.4-8.2 [facility] Comment on above: Performed By: #### L 100.0100, L500.4050 ####[facility] [address] [place], [address] Urea nitrogen [Mass/Vol] 50 mg/dL High 7-18 [facility] Comment on above: Performed By: #### L 100.0100, L500.4050 ####[facility] [address] [place], [address] Ferritinon 09-27-2024 Ferritin [Mass/Vol] 1681 ng/mL High 26-388 [facility] Comment on above: Order Comment: PLEAS E ADD TO BLOOD IN LAB THANK YOU!!! Performed By: #### L 503.6030, L503.6550 ####[facility] [address] [place], [address] Ferritin measurementOrdered By: Rubi Mercedes on 09-27-2024 Ferritin [Mass/Vol] 1681 ng/mL High 26-388 [facility] Iron measurement (mass/mass) Ordered By: Rubi Mercedes on 09-27-2024 Iron (Unsp spec) [Mass/Mass] 26 ug/dL Low 65-175 [facility] Iron+Iron Binding Capacityon 09-27-2024 Iron [Mass/Vol] 26 ug/dL Low 65-175 [facility] Comment on above: Order Comment: PLEAS E ADD TO BLOOD IN LAB THANK YOU!!! Performed By: #### L 503.6030, L503.6550 ####[facility] [address] [place], [address] IRON SATURATION 17.8 Normal 15.0-55.0 [facility] Comment on above: Order Comment: PLEAS E ADD TO BLOOD IN LAB THANK YOU!!! Performed By: #### L 503.6030, L503.6550 ####[facility] [address] [place], [address] TIBC 146 ug/dL Low 250-450 [facility] Comment on above: Order Comment: PLEAS E ADD TO BLOOD IN LAB THANK YOU!!! Performed By: #### L 503.6030, L503.6550 ####[facility] [address] [place], [address] Oncology Visit Reporton Oncology Visit Report Normal [facility] Serum or plasma iron saturat ion measurement (mass fraction)Ordered By: Rubi Mercedes on 09-27-2024 Iron saturation [Mass fraction] 17.8 % 15.0-55.0 [facility] Type AND Screenon 09-27-2024 ABO and Rh group Nom (Bld) Blood group A Rh(D) positive Normal [facility] Comment on above: Order Comment: N111/20 [id number] Performed By: #### B RC, BTS ####[facility] [address] [place], [address] Basic Metabolic Profile (BMP )on 09-24-2024 BUN/CRE 21.1 RATIO High 10-20 [facility] Comment on above: Performed By: #### L 500.2500 ####[facility] [address] [place], [address] CA,Total 9.3 mg/dL Normal 8.5-10.1 [facility] Comment on above: Performed By: #### L 500.2500 ####[facility] [address] [place], [address] Chloride [Moles/Vol] 102 mmol/L Normal 98-107 [facility] Comment on above: Performed By: #### L 500.2500 ####[facility] [address] [place], [address] CO2 [Moles/Vol] 27.0 mmol/L Normal 21.0-32.0 [facility] Comment on above: Performed By: #### L 500.2500 ####[facility] [address] [place], [address] Creatinine [Mass/Vol] 2.61 mg/dL High 0.70-1.30 [facility] Comment on above: Result Comment: The validity of the calculated GFR GFRAA in patients over70 years has not been determined. Clinical correlation isessential. Performed By: #### L 500.2500 ####[facility] [address] [place] [address] ECRCL 22.17 ml/min Normal [facility] Comment on above: Performed By: #### L 500.2500 ####[facility] [address] [place], [address] EST GFR - AA 33 mL/min Low >60 [facility] Comment on above: Result Comment: Afri can [place]ran GFR Calc Performed By: #### L 500.2500 ####[facility] [address] [place] [id number] GAP 6 Normal 5-15 [facility] Comment on above: Performed By: #### L 500.2500 ####[facility] [address] [place], [address] GFR/1.73 sq M.predicted among non-blacks MDRD (S/P/Bld) [Vol rate/Area] 27 mL/min/{1.73_m2} Low >60 [facility] Comment on above: Result Comment: Non- GFR Calc Performed By: #### L 500.2500 ####[facility] [address] [place], [address] Glucose [Mass/Vol] 125 mg/dL High 74-106 [facility] Comment on above: Result Comment: Fast ing Glucose result from 100 to 125 mg/dLsuggests IMPAIRED HOMEOSTASIS per A.D.A. criteria. Performed By: #### L 500.2500 ####[facility] [address] [place], [address] Potassium [Moles/Vol] 4.5 mmol/L Normal 3.5-5.1 [facility] Comment on above: Performed By: #### L 500.2500 ####[facility] [address] [place], [address] Sodium [Moles/Vol] 135 mmol/L Low 136-145 [facility] Comment on above: Performed By: #### L 500.2500 ####[facility] [address] [place], [address] Urea nitrogen [Mass/Vol] 55 mg/dL High 7-18 [facility] Comment on above: Performed By: #### L 500.2500 ####[facility] [address] [place], [address] CBC W/Diff, Automatedon 11-2 -2023 Absolute Lymph 0.20 X10 3/uL Low 0.83-4.51 [facility] Comment on above: Performed By: #### L 500.4050, L100.0100 ####[facility] [address] [place], [address] Absolute Neut 13.5 X10 3/uL High 2.0-7.7 [facility] Comment on above: Performed By: #### L 500.4050, L100.0100 ####[facility] [address] [place], [address] Basophils/100 WBC (Bld) 0.3 % Normal 0-1 [facility] Comment on above: Performed By: #### L 500.4050, L100.0100 ####[facility] [address] [place], [address] Eosinophils/100 WBC (Bld) 0.3 % Normal 0-5 [facility] Comment on above: Performed By: #### L 500.4050, L100.0100 ####[facility] [address] [place], [address] Erythrocyte distribution width (RBC) [Ratio] 16.4 % High 11.6-14.6 [facility] Comment on above: Performed By: #### L 500.4050, L100.0100 ####[facility] [address] [place], [address] Hematocrit (Bld) [Volume fraction] 22.8 % Low 40-54 [facility] Comment on above: Performed By: #### L 500.4050, L100.0100 ####[facility] [address] [place], [address] Hemoglobin (Bld) [Mass/Vol] 7.3 g/dL Low 13.0-16.5 [facility] Comment on above: Performed By: #### L 500.4050, L100.0100 ####[facility] [address] [place], [address] IG% 1.500 High 0.0-0.9 [facility] Comment on above: Result Comment: IG% - Immature Granulocytes (promyelocytes, myelocytes andmetamyelocytes) > 1% indicates that a LEFT SHIFT is Present. Performed By: #### L 500.4050, L100.0100 ####[facility] [address] [place], [address] Lymphocytes/100 WBC (Bld) 1.3 % Low 19-41 [facility] Comment on above: Performed By: #### L 500.4050, L100.0100 ####[facility] [address] [place], [address] MCH (RBC) [Entitic mass] 29.2 pg Normal 27.0-32.0 [facility] Comment on above: Performed By: #### L 500.4050, L100.0100 ####[facility] [address] [place], [address] MCHC (RBC) [Mass/Vol] 32.0 g/dL Normal 32-36 [facility] Comment on above: Performed By: #### L 500.4050, L100.0100 ####[facility] [address] [place], [address] MCV (RBC) [Entitic vol] 91.2 fL Normal 80-94 [facility] Comment on above: Performed By: #### L 500.4050, L100.0100 ####[facility] [address] [place], [address] Monocytes/100 WBC (Bld) 6.2 % Normal 0-10 [facility] Comment on above: Performed By: #### L 500.4050, L100.0100 ####[facility] [address] [place], [address] Neutrophils/100 WBC (Bld) 90.4 % High 47-70 [facility] Comment on above: Performed By: #### L 500.4050, L100.0100 ####[facility] [address] [place], [address] Nucleated RBC (Bld) [#/Vol] 0 10*3/uL Normal 0-5 [facility] Comment on above: Performed By: #### L 500.4050, L100.0100 ####[facility] [address] [place], [address] Platelet mean volume (Bld) [Entitic vol] 8.2 fL Normal 6.2-12.0 [facility] Comment on above: Performed By: #### L 500.4050, L100.0100 ####[facility] [address] [place], [address] Platelets (Bld) [#/Vol] 585 10*3/uL High 150-450 [facility] Comment on above: Performed By: #### L 500.4050, L100.0100 ####[facility] [address] [place], [id number] RBC (Bld) [#/Vol] 2.50 10*6/uL Low 4.6-6.2 [facility] Comment on above: Performed By: #### L 500.4050, L100.0100 ####[facility] [address] [place], [id number] RDW SD 55.0 fl High 35.1-43.9 [facility] Comment on above: Performed By: #### L 500.4050, L100.0100 ####[facility] [address] [place], [id number] WBC (Bld) [#/Vol] 15.0 10*3/uL High 4.4-11.0 [facility] Comment on above: Performed By: #### L 500.4050, L100.0100 ####[facility] [address] [place], [id number] Comprehensive Metabolic Prof ilon 09-13-2024 Albumin [Mass/Vol] 2.1 g/dL Low 3.2-5.0 [facility] Comment on above: Performed By: #### L 500.4050, L100.0100 ####[facility] [address] [place], [id number] Albumin/Globulin [Mass ratio] 0.4 {ratio} Low 0.9-2.4 [facility] Comment on above: Performed By: #### L 500.4050, L100.0100 ####[facility] [address] [place], [id number] ALK P 160 U/L High 45-117 [facility] Comment on above: Performed By: #### L 500.4050, L100.0100 ####[facility] [address] [place], [id number] ALT [Catalytic activity/Vol] 40 U/L Normal 16-61 [facility] Comment on above: Performed By: #### L 500.4050, L100.0100 ####[facility] [address] [place], [address] AST [Catalytic activity/Vol] 17 U/L Normal 15-37 [facility] Comment on above: Performed By: #### L 500.4050, L100.0100 ####[facility] [address] [place], [address] Bilirubin [Mass/Vol] 0.30 mg/dL Normal 0.20-1.00 [facility] Comment on above: Result Comment: For patients on eltrombopag therapy, use of Dimension [place] TBIL is not recommended. Performed By: #### L 500.4050, L100.0100 ####[facility] [address] [place], [id number] BUN/CRE 18.3 RATIO Normal 10-20 [facility] Comment on above: Performed By: #### L 500.4050, L100.0100 ####[facility] [address] [place], [id number] CA,Total 9.0 mg/dL Normal 8.5-10.1 [facility] Comment on above: Performed By: #### L 500.4050, L100.0100 ####[facility] [address] [place], [address] Chloride [Moles/Vol] 106 mmol/L Normal 98-107 [facility] Comment on above: Performed By: #### L 500.4050, L100.0100 ####[facility] [address] [place], [address] CO2 [Moles/Vol] 26.0 mmol/L Normal 21.0-32.0 [facility] Comment on above: Performed By: #### L 500.4050, L100.0100 ####[facility] [address] [place], [address] Creatinine [Mass/Vol] 2.35 mg/dL High 0.70-1.30 [facility] Comment on above: Result Comment: The validity of the calculated GFR GFRAA in patients over70 years has not been determined. Clinical correlation isessential. Performed By: #### L 500.4050, L100.0100 ####[facility] [address] [place], [address] ECRCL 27.12 ml/min Normal [facility] Comment on above: Performed By: #### L 500.4050, L100.0100 ####[facility] [address] [place], [address] EST GFR - AA 37 mL/min Low >60 [facility] Comment on above: Result Comment: Afri can [place]orran GFR Calc Performed By: #### L 500.4050, L100.0100 ####[facility] [address] [place], [address] GAP 7 Normal 5-15 [facility] Comment on above: Performed By: #### L 500.4050, L100.0100 ####[facility] [address] [place], [address] GFR/1.73 sq M.predicted among non-blacks MDRD (S/P/Bld) [Vol rate/Area] 30 mL/min/{1.73_m2} Low >60 [facility] Comment on above: Result Comment: Non- GFR Calc Performed By: #### L 500.4050, L100.0100 ####[facility] [address] [place], [id number] Globulin (S) [Mass/Vol] 5.1 g/dL High 2.2-4.2 [facility] Comment on above: Performed By: #### L 500.4050, L100.0100 ####[facility] [address] [place], [address] Glucose [Mass/Vol] 125 mg/dL High 74-106 [facility] Comment on above: Result Comment: Fast ing Glucose result from 100 to 125 mg/dLsuggests IMPAIRED HOMEOSTASIS per A.D.A. criteria. Performed By: #### L 500.4050, L100.0100 ####[facility] [address] [place], [address] Potassium [Moles/Vol] 3.7 mmol/L Normal 3.5-5.1 [facility] Comment on above: Performed By: #### L 500.4050, L100.0100 ####[facility] [address] [place], [id number] Sodium [Moles/Vol] 138 mmol/L Normal 136-145 [facility] Comment on above: Performed By: #### L 500.4050, L100.0100 ####[facility] [address] [place], [address] T PROT 7.2 g/dL Normal 6.4-8.2 [facility] Comment on above: Performed By: #### L 500.4050, L100.0100 ####[facility] [address] [place], [id number] Urea nitrogen [Mass/Vol] 43 mg/dL High 7-18 [facility] Comment on above: Performed By: #### L 500.4050, L100.0100 ####[facility] [address] [place], [address] Ferritinon 09-13-2024 Ferritin [Mass/Vol] 1896 ng/mL High 26-388 [facility] Comment on above: Order Comment: PLEAS E ADD ON TO BLOOD IN LAB. THANK YOU!!N Performed By: #### L 503.6030, L506.0250, L503.0105, L503.6550 ####[facility] [address] [place], [address] Folates, (Folic Acid)on 08-21 FOLATES 27.50 ng/mL Normal 3.1-55.4 [facility] Comment on above: Order Comment: PLEAS E ADD ON TO BLOOD IN LAB. THANK YOU!!N Performed By: #### L 503.6030, L506.0250, L503.0105, L503.6550 ####[facility] [address] [place], [address] Iron+Iron Binding Capacityon 09-13-2024 Iron [Mass/Vol] 12 ug/dL Low 65-175 [facility] Comment on above: Order Comment: PLEAS E ADD ON TO BLOOD IN LAB. THANK YOU!!N Performed By: #### L 503.6030, L506.0250, L503.0105, L503.6550 ####[facility] [address] [place], [address] IRON SATURATION 8.6 Low 15.0-55.0 [facility] Comment on above: Order Comment: PLEAS E ADD ON TO BLOOD IN LAB. THANK YOU!!N Performed By: #### L 503.6030, L506.0250, L503.0105, L503.6550 ####[facility] [address] [place], [address] TIBC 140 ug/dL Low 250-450 [facility] Comment on above: Order Comment: PLEAS E ADD ON TO BLOOD IN LAB. THANK YOU!!N Performed By: #### L 503.6030, L506.0250, L503.0105, L503.6550 ####[facility] [address] [place], [address] Oncology Visit Reporton 08-21 Oncology Visit Report Normal [facility] Vitamin B12on 09-13-2024 Cobalamin (Vitamin B12) [Mass/Vol] 887 pg/mL Normal 211-911 [facility] Comment on above: Order Comment: PLEAS E ADD ON TO BLOOD IN LAB. THANK YOU!! Performed By: #### L 503.6030, L506.0250, L503.0105, L503.6550 ####[facility] [address] [place], [address] Vitamin B12 measurementOrder ed By: Guy Ho on 09-13-2024 Cobalamin (Vitamin B12) [Mass/Vol] 887 pg/mL 211-911 [facility] CBC W/Diff, Automatedon 07-21 PATH REV Reviewed Normal [facility] Comment on above: Result Comment: Neut rophilic leukocytosis.Normocytic anemia.Clinical correlation necessary.Nithin Matthew M.D. 08/17/24 AMENDED REPORT 08/17/24 1412 PATH REV previously reported as: February daniel Performed By: #### L 100.0100, L500.2500 ####[facility] [address] [place], [address] Ferritinon 08-17-2024 Ferritin [Mass/Vol] 2185 ng/mL High 26-388 [facility] Comment on above: Order Comment: PLEAS E ADD ON TO BLOOD IN LAB. THANK YOU!!! Performed By: #### L 503.6550, L503.6030 ####[facility] [address] [place], [address] Iron+Iron Binding Capacityon 08-17-2024 Iron [Mass/Vol] 19 ug/dL Low 65-175 [facility] Comment on above: Order Comment: PLEAS E ADD ON TO BLOOD IN LAB. THANK YOU!!! Performed By: #### L 503.6550, L503.6030 ####[facility] [address] [place], [address] IRON SATURATION 9.4 Low 15.0-55.0 [facility] Comment on above: Order Comment: PLEAS E ADD ON TO BLOOD IN LAB. THANK YOU!!! Performed By: #### L 503.6550, L503.6030 ####[facility] [address] [place], [address] TIBC 202 ug/dL Low 250-450 [facility] Comment on above: Order Comment: PLEAS E ADD ON TO BLOOD IN LAB. THANK YOU!!! Performed By: #### L 503.6550, L503.6030 ####[facility] [address] [place], [address] Radiation Oncology Visiton 1 Radiation Oncology Visit Normal [facility] Radiation Oncology Visit Normal [facility] Basic Metabolic Profile (BMP )on 08-16-2024 BUN/CRE 25.7 RATIO High 10-20 [facility] Comment on above: Performed By: #### L 100.0100, L500.2500 ####[facility] [address] [place], [address] CA,Total 9.1 mg/dL Normal 8.5-10.1 [facility] Comment on above: Performed By: #### L 100.0100, L500.2500 ####[facility] [address] [place], [address] Chloride [Moles/Vol] 100 mmol/L Normal 98-107 [facility] Comment on above: Performed By: #### L 100.0100, L500.2500 ####[facility] [address] [place], [address] CO2 [Moles/Vol] 29.0 mmol/L Normal 21.0-32.0 [facility] Comment on above: Performed By: #### L 100.0100, L500.2500 ####[facility] [address] [place], [address] Creatinine [Mass/Vol] 1.44 mg/dL High 0.70-1.30 [facility] Comment on above: Result Comment: The validity of the calculated GFR GFRAA in patients over70 years has not been determined. Clinical correlation isessential. Performed By: #### L 100.0100, L500.2500 ####[facility] [address] [place], [address] ECRCL 44.26 ml/min Normal [facility] Comment on above: Performed By: #### L 100.0100, L500.2500 ####[facility] [address] [place], [address] EST GFR - AA 65 mL/min Normal >60 [facility] Comment on above: Result Comment: Afri can [place]orran GFR Calc Performed By: #### L 100.0100, L500.2500 ####[facility] [address] [place], [address] GAP 9 Normal 5-15 [facility] Comment on above: Performed By: #### L 100.0100, L500.2500 ####[facility] [address] [place], [address] GFR/1.73 sq M.predicted among non-blacks MDRD (S/P/Bld) [Vol rate/Area] 53 mL/min/{1.73_m2} Low >60 [facility] Comment on above: Result Comment: Non- GFR Calc Performed By: #### L 100.0100, L500.2500 ####[facility] [address] [place], [address] Glucose [Mass/Vol] 123 mg/dL High 74-106 [facility] Comment on above: Result Comment: Fast ing Glucose result from 100 to 125 mg/dLsuggests IMPAIRED HOMEOSTASIS per A.D.A. criteria. Performed By: #### L 100.0100, L500.2500 ####[facility] [address] [place], [address] Potassium [Moles/Vol] 4.3 mmol/L Normal 3.5-5.1 [facility] Comment on above: Performed By: #### L 100.0100, L500.2500 ####[facility] [address] [place], [address] Sodium [Moles/Vol] 138 mmol/L Normal 136-145 [facility] Comment on above: Performed By: #### L 100.0100, L500.2500 ####[facility] [address] [place], [address] Urea nitrogen [Mass/Vol] 37 mg/dL High 7-18 [facility] Comment on above: Performed By: #### L 100.0100, L500.2500 ####[facility] [address] [place], [address] Oncology Visit Reporton 07-21 Oncology Visit Report Normal [facility] Radiation Oncology Visiton 1 Radiation Oncology Visit Normal [facility] CBC W/Diff, Automatedon 07-21 Absolute Lymph 0.19 X10 3/uL Low 0.83-4.51 [facility] Comment on above: Performed By: #### L 500.4050, L100.0100 ####[facility] [address] [place], [address] Absolute Neut 7.2 X10 3/uL Normal 2.0-7.7 [facility] Comment on above: Performed By: #### L 500.4050, L100.0100 ####[facility] [address] [place], [address] Basophils/100 WBC (Bld) 0.5 % Normal 0-1 [facility] Comment on above: Performed By: #### L 500.4050, L100.0100 ####[facility] [address] [place], [address] Eosinophils/100 WBC (Bld) 0.7 % Normal 0-5 [facility] Comment on above: Performed By: #### L 500.4050, L100.0100 ####[facility] [address] [place], [address] Erythrocyte distribution width (RBC) [Ratio] 14.6 % Normal 11.6-14.6 [facility] Comment on above: Performed By: #### L 500.4050, L100.0100 ####[facility] [address] [place], [address] Hematocrit (Bld) [Volume fraction] 30.7 % Low 40-54 [facility] Comment on above: Performed By: #### L 500.4050, L100.0100 ####[facility] [address] [place], [address] Hemoglobin (Bld) [Mass/Vol] 10.0 g/dL Low 13.0-16.5 [facility] Comment on above: Performed By: #### L 500.4050, L100.0100 ####[facility] [address] [place], [address] IG% 0.700 Normal 0.0-0.9 [facility] Comment on above: Result Comment: IG% - Immature Granulocytes (promyelocytes, myelocytes andmetamyelocytes) > 1% indicates that a LEFT SHIFT is Present. Performed By: #### L 500.4050, L100.0100 ####[facility] [address] [place], [id number] Lymphocytes/100 WBC (Bld) 2.2 % Low 19-41 [facility] Comment on above: Performed By: #### L 500.4050, L100.0100 ####[facility] [address] [place], [address] MCH (RBC) [Entitic mass] 29.3 pg Normal 27.0-32.0 [facility] Comment on above: Performed By: #### L 500.4050, L100.0100 ####[facility] [address] [place], [address] MCHC (RBC) [Mass/Vol] 32.6 g/dL Normal 32-36 [facility] Comment on above: Performed By: #### L 500.4050, L100.0100 ####[facility] [address] [place], [address] MCV (RBC) [Entitic vol] 90.0 fL Normal 80-94 [facility] Comment on above: Performed By: #### L 500.4050, L100.0100 ####[facility] [address] [place], [address] Monocytes/100 WBC (Bld) 12.8 % High 0-10 [facility] Comment on above: Performed By: #### L 500.4050, L100.0100 ####[facility] [address] [place], [id number] Neutrophils/100 WBC (Bld) 83.1 % High 47-70 [facility] Comment on above: Performed By: #### L 500.4050, L100.0100 ####[facility] [address] [place], [id number] Nucleated RBC (Bld) [#/Vol] 0 10*3/uL Normal 0-5 [facility] Comment on above: Performed By: #### L 500.4050, L100.0100 ####[facility] [address] [place], [id number] Platelet mean volume (Bld) [Entitic vol] 8.0 fL Normal 6.2-12.0 [facility] Comment on above: Performed By: #### L 500.4050, L100.0100 ####[facility] [address] [place], [address] Platelets (Bld) [#/Vol] 306 10*3/uL Normal 150-450 [facility] Comment on above: Performed By: #### L 500.4050, L100.0100 ####[facility] [address] [place], [address] RBC (Bld) [#/Vol] 3.41 10*6/uL Low 4.6-6.2 [facility] Comment on above: Performed By: #### L 500.4050, L100.0100 ####[facility] [address] [place], [id number] RDW SD 46.5 fl High 35.1-43.9 [facility] Comment on above: Performed By: #### L 500.4050, L100.0100 ####[facility] [address] [place], [address] WBC (Bld) [#/Vol] 8.7 10*3/uL Normal 4.4-11.0 [facility] Comment on above: Performed By: #### L 500.4050, L100.0100 ####[facility] [address] [place], [id number] Comprehensive Metabolic Prof ilon 08-09-2024 Albumin [Mass/Vol] 2.4 g/dL Low 3.2-5.0 [facility] Comment on above: Performed By: #### L 500.4050, L100.0100 ####[facility] [address] [place], [address] Albumin/Globulin [Mass ratio] 0.5 {ratio} Low 0.9-2.4 [facility] Comment on above: Performed By: #### L 500.4050, L100.0100 ####[facility] [address] [place], [address] ALK P 90 U/L Normal 45-117 [facility] Comment on above: Performed By: #### L 500.4050, L100.0100 ####[facility] [address] [place], [address] ALT [Catalytic activity/Vol] 21 U/L Normal 16-61 [facility] Comment on above: Performed By: #### L 500.4050, L100.0100 ####[facility] [address] [place], [address] AST [Catalytic activity/Vol] 20 U/L Normal 15-37 [facility] Comment on above: Performed By: #### L 500.4050, L100.0100 ####[facility] [address] [place], [address] Bilirubin [Mass/Vol] 0.40 mg/dL Normal 0.20-1.00 [facility] Comment on above: Result Comment: For patients on eltrombopag therapy, use of Dimension [place] TBIL is not recommended. Performed By: #### L 500.4050, L100.0100 ####[facility] [address] [place], [address] BUN/CRE 27.2 RATIO High 10-20 [facility] Comment on above: Performed By: #### L 500.4050, L100.0100 ####[facility] [address] [place], [address] CA,Total 9.2 mg/dL Normal 8.5-10.1 [facility] Comment on above: Performed By: #### L 500.4050, L100.0100 ####[facility] [address] [place], [id number] Chloride [Moles/Vol] 102 mmol/L Normal 98-107 [facility] Comment on above: Performed By: #### L 500.4050, L100.0100 ####[facility] [address] [place], [id number] CO2 [Moles/Vol] 30.0 mmol/L Normal 21.0-32.0 [facility] Comment on above: Performed By: #### L 500.4050, L100.0100 ####[facility] [address] [place], [address] Creatinine [Mass/Vol] 1.03 mg/dL Normal 0.70-1.30 [facility] Comment on above: Result Comment: The validity of the calculated GFR GFRAA in patients over70 years has not been determined. Clinical correlation isessential. Performed By: #### L 500.4050, L100.0100 ####[facility] [address] [place], [id number] ECRCL 61.88 ml/min Normal [facility] Comment on above: Performed By: #### L 500.4050, L100.0100 ####[facility] [address] [place], [id number] EST GFR - AA 95 mL/min Normal >60 [facility] Comment on above: Result Comment: Afri can [place] GFR Calc Performed By: #### L 500.4050, L100.0100 ####[facility] [address] [place], [id number] GAP 6 Normal 5-15 [facility] Comment on above: Performed By: #### L 500.4050, L100.0100 ####[facility] [address] [place], [address] GFR/1.73 sq M.predicted among non-blacks MDRD (S/P/Bld) [Vol rate/Area] 79 mL/min/{1.73_m2} Normal >60 [facility] Comment on above: Result Comment: Non- GFR Calc Performed By: #### L 500.4050, L100.0100 ####[facility] [address] [place], [address] Globulin (S) [Mass/Vol] 5.3 g/dL High 2.2-4.2 [facility] Comment on above: Performed By: #### L 500.4050, L100.0100 ####[facility] [address] [place], [address] Glucose [Mass/Vol] 108 mg/dL High 74-106 [facility] Comment on above: Result Comment: Fast ing Glucose result from 100 to 125 mg/dLsuggests IMPAIRED HOMEOSTASIS per A.D.A. criteria. Performed By: #### L 500.4050, L100.0100 ####[facility] [address] [place], [address] Potassium [Moles/Vol] 3.5 mmol/L Normal 3.5-5.1 [facility] Comment on above: Performed By: #### L 500.4050, L100.0100 ####[facility] [address] [place], [id number] Sodium [Moles/Vol] 137 mmol/L Normal 136-145 [facility] Comment on above: Performed By: #### L 500.4050, L100.0100 ####[facility] [address] [place], [address] T PROT 7.7 g/dL Normal 6.4-8.2 [facility] Comment on above: Performed By: #### L 500.4050, L100.0100 ####[facility] [address] [place], [id number] Urea nitrogen [Mass/Vol] 28 mg/dL High 7-18 [facility] Comment on above: Performed By: #### L 500.4050, L100.0100 ####[facility] [address] [place], [address] LDHon 08-09-2024 LDH 115 U/L Normal 87-241 [facility] Comment on above: Order Comment: 1 Performed By: #### L 504.2610 ####[facility] [address] [place], [id number] Oncology Visit Reporton - Oncology Visit Report Normal [facility] Radiation Oncology Visiton 1 - Radiation Oncology Visit Normal [facility] CBC W/Diff, Automatedon - Absolute Lymph 0.42 X10 3/uL Low 0.83-4.51 [facility] Comment on above: Performed By: #### L 100.0100, L500.4050 ####[facility] [address] [place], [id number] Absolute Neut 5.5 X10 3/uL Normal 2.0-7.7 [facility] Comment on above: Performed By: #### L 100.0100, L500.4050 ####[facility] [address] [place], [id number] Basophils/100 WBC (Bld) 0.4 % Normal 0-1 [facility] Comment on above: Performed By: #### L 100.0100, L500.4050 ####[facility] [address] [place], [id number] Eosinophils/100 WBC (Bld) 3.2 % Normal 0-5 [facility] Comment on above: Performed By: #### L 100.0100, L500.4050 ####[facility] [address] [place], [address] Erythrocyte distribution width (RBC) [Ratio] 13.2 % Normal 11.6-14.6 [facility] Comment on above: Performed By: #### L 100.0100, L500.4050 ####[facility] [address] [place], [address] Hematocrit (Bld) [Volume fraction] 33.9 % Low 40-54 [facility] Comment on above: Performed By: #### L 100.0100, L500.4050 ####[facility] [address] [place], [address] Hemoglobin (Bld) [Mass/Vol] 11.0 g/dL Low 13.0-16.5 [facility] Comment on above: Performed By: #### L 100.0100, L500.4050 ####[facility] [address] [place], [address] IG% 1.400 High 0.0-0.9 [facility] Comment on above: Result Comment: IG% - Immature Granulocytes (promyelocytes, myelocytes andmetamyelocytes) > 1% indicates that a LEFT SHIFT is Present. Performed By: #### L 100.0100, L500.4050 ####[facility] [address] [place], [address] Lymphocytes/100 WBC (Bld) 6.1 % Low 19-41 [facility] Comment on above: Performed By: #### L 100.0100, L500.4050 ####[facility] [address] [place], [address] MCH (RBC) [Entitic mass] 29.3 pg Normal 27.0-32.0 [facility] Comment on above: Performed By: #### L 100.0100, L500.4050 ####[facility] [address] [place], [id number] MCHC (RBC) [Mass/Vol] 32.4 g/dL Normal 32-36 [facility] Comment on above: Performed By: #### L 100.0100, L500.4050 ####[facility] [address] [place], [id number] MCV (RBC) [Entitic vol] 90.2 fL Normal 80-94 [facility] Comment on above: Performed By: #### L 100.0100, L500.4050 ####[facility] [address] [place], [address] Monocytes/100 WBC (Bld) 9.4 % Normal 0-10 [facility] Comment on above: Performed By: #### L 100.0100, L500.4050 ####[facility] [address] [place], [address] Neutrophils/100 WBC (Bld) 79.5 % High 47-70 [facility] Comment on above: Performed By: #### L 100.0100, L500.4050 ####[facility] [address] [place], [id number] Nucleated RBC (Bld) [#/Vol] 0 10*3/uL Normal 0-5 [facility] Comment on above: Performed By: #### L 100.0100, L500.4050 ####[facility] [address] [place], [id number] Platelet mean volume (Bld) [Entitic vol] 7.8 fL Normal 6.2-12.0 [facility] Comment on above: Performed By: #### L 100.0100, L500.4050 ####[facility] [address] [place], [id number] Platelets (Bld) [#/Vol] 286 10*3/uL Normal 150-450 [facility] Comment on above: Performed By: #### L 100.0100, L500.4050 ####[facility] [address] [place], [address] RBC (Bld) [#/Vol] 3.76 10*6/uL Low 4.6-6.2 [facility] Comment on above: Performed By: #### L 100.0100, L500.4050 ####[facility] [address] [place], [address] RDW SD 42.8 fl Normal 35.1-43.9 [facility] Comment on above: Performed By: #### L 100.0100, L500.4050 ####[facility] [address] [place], [address] WBC (Bld) [#/Vol] 6.9 10*3/uL Normal 4.4-11.0 [facility] Comment on above: Performed By: #### L 100.0100, L500.4050 ####[facility] [address] [place], [address] Comprehensive Metabolic [facility] 08-02-2024 Albumin [Mass/Vol] 2.5 g/dL Low 3.2-5.0 [facility] Comment on above: Performed By: #### L 100.0100, L500.4050 ####[facility] [address] [place], [address] Albumin/Globulin [Mass ratio] 0.5 {ratio} Low 0.9-2.4 [facility] Comment on above: Performed By: #### L 100.0100, L500.4050 ####[facility] [address] [place], [id number] ALK P 87 U/L Normal 45-117 [facility] Comment on above: Performed By: #### L 100.0100, L500.4050 ####[facility] [address] [place], [id number] ALT [Catalytic activity/Vol] 27 U/L Normal 16-61 [facility] Comment on above: Performed By: #### L 100.0100, L500.4050 ####[facility] [address] [place], [address] AST [Catalytic activity/Vol] 13 U/L Low 15-37 [facility] Comment on above: Performed By: #### L 100.0100, L500.4050 ####[facility] [address] [place], [id number] Bilirubin [Mass/Vol] 0.30 mg/dL Normal 0.20-1.00 [facility] Comment on above: Result Comment: For patients on eltrombopag therapy, use of Dimension [place] TBIL is not recommended. Performed By: #### L 100.0100, L500.4050 ####[facility] [address] [place], [id number] BUN/CRE 23.4 RATIO High 10-20 [facility] Comment on above: Performed By: #### L 100.0100, L500.4050 ####[facility] [address] [place], [id number] CA,Total 9.4 mg/dL Normal 8.5-10.1 [facility] Comment on above: Performed By: #### L 100.0100, L500.4050 ####[facility] [address] [place], [address] Chloride [Moles/Vol] 105 mmol/L Normal 98-107 [facility] Comment on above: Performed By: #### L 100.0100, L500.4050 ####[facility] [address] [place], [address] CO2 [Moles/Vol] 29.0 mmol/L Normal 21.0-32.0 [facility] Comment on above: Performed By: #### L 100.0100, L500.4050 ####[facility] [address] [place], [address] Creatinine [Mass/Vol] 0.73 mg/dL Normal 0.70-1.30 [facility] Comment on above: Result Comment: The validity of the calculated GFR GFRAA in patients over70 years has not been determined. Clinical correlation isessential. Performed By: #### L 100.0100, L500.4050 ####[facility] [address] [place], [address] ECRCL 85.18 ml/min Normal [facility] Comment on above: Performed By: #### L 100.0100, L500.4050 ####[facility] [address] [place], [address] EST GFR - AA 142 mL/min Normal >60 [facility] Comment on above: Result Comment: Afri can [place]ran GFR Calc Performed By: #### L 100.0100, L500.4050 ####[facility] [address] [place], [address] GAP 6 Normal 5-15 [facility] Comment on above: Performed By: #### L 100.0100, L500.4050 ####[facility] [address] [place], [address] GFR/1.73 sq M.predicted among non-blacks MDRD (S/P/Bld) [Vol rate/Area] 117 mL/min/{1.73_m2} Normal >60 [facility] Comment on above: Result Comment: Non- GFR Calc Performed By: #### L 100.0100, L500.4050 ####[facility] [address] [place], [address] Globulin (S) [Mass/Vol] 4.9 g/dL High 2.2-4.2 [facility] Comment on above: Performed By: #### L 100.0100, L500.4050 ####[facility] [address] [place], [id number] Glucose [Mass/Vol] 95 mg/dL Normal 74-106 [facility] Comment on above: Performed By: #### L 100.0100, L500.4050 ####[facility] [address] [place], [address] Potassium [Moles/Vol] 4.0 mmol/L Normal 3.5-5.1 [facility] Comment on above: Performed By: #### L 100.0100, L500.4050 ####[facility] [address] [place], [address] Sodium [Moles/Vol] 139 mmol/L Normal 136-145 [facility] Comment on above: Performed By: #### L 100.0100, L500.4050 ####[facility] [address] [place], [address] T PROT 7.4 g/dL Normal 6.4-8.2 [facility] Comment on above: Performed By: #### L 100.0100, L500.4050 ####[facility] [address] [place], [address] Urea nitrogen [Mass/Vol] 17 mg/dL Normal 7-18 [facility] Comment on above: Performed By: #### L 100.0100, L500.4050 ####[facility] [address] [place], [address] Oncology Visit Reporton 10-1 Oncology Visit Report Normal [facility] Radiation Oncology Visiton 1 0- Radiation Oncology Visit Normal [facility] CBC W/Diff, Automatedon 10-0 7-2024 Absolute Lymph 0.32 X10 3/uL Low 0.83-4.51 [facility] Comment on above: Performed By: #### L 500.4050, L100.0100 ####[facility] [address] [place], [address] Absolute Neut 11.1 X10 3/uL High 2.0-7.7 [facility] Comment on above: Performed By: #### L 500.4050, L100.0100 ####[facility] [address] [place], [address] Basophils/100 WBC (Bld) 0.4 % Normal 0-1 [facility] Comment on above: Performed By: #### L 500.4050, L100.0100 ####[facility] [address] [place], [address] Eosinophils/100 WBC (Bld) 0.4 % Normal 0-5 [facility] Comment on above: Performed By: #### L 500.4050, L100.0100 ####[facility] [address] [place], [id number] Erythrocyte distribution width (RBC) [Ratio] 13.3 % Normal 11.6-14.6 [facility] Comment on above: Performed By: #### L 500.4050, L100.0100 ####[facility] [address] [place], [id number] Hematocrit (Bld) [Volume fraction] 32.5 % Low 40-54 [facility] Comment on above: Performed By: #### L 500.4050, L100.0100 ####[facility] [address] [place], [address] Hemoglobin (Bld) [Mass/Vol] 10.6 g/dL Low 13.0-16.5 [facility] Comment on above: Performed By: #### L 500.4050, L100.0100 ####[place] [facility] [address] [place], [address] IG% 0.600 Normal 0.0-0.9 [facility] Comment on above: Result Comment: IG% - Immature Granulocytes (promyelocytes, myelocytes andmetamyelocytes) > 1% indicates that a LEFT SHIFT is Present. Performed By: #### L 500.4050, L100.0100 ####[facility] [address] [place], [address] Lymphocytes/100 WBC (Bld) 2.5 % Low 19-41 [facility] Comment on above: Performed By: #### L 500.4050, L100.0100 ####[facility] [address] [place], [address] MCH (RBC) [Entitic mass] 29.1 pg Normal 27.0-32.0 [facility] Comment on above: Performed By: #### L 500.4050, L100.0100 ####[facility] [address] [place], [id number] MCHC (RBC) [Mass/Vol] 32.6 g/dL Normal 32-36 [facility] Comment on above: Performed By: #### L 500.4050, L100.0100 ####[facility] [address] [place], [address] MCV (RBC) [Entitic vol] 89.3 fL Normal 80-94 [facility] Comment on above: Performed By: #### L 500.4050, L100.0100 ####[facility] [address] [place], [address] Monocytes/100 WBC (Bld) 9.6 % Normal 0-10 [facility] Comment on above: Performed By: #### L 500.4050, L100.0100 ####[facility] [address] [place], [address] Neutrophils/100 WBC (Bld) 86.5 % High 47-70 [facility] Comment on above: Performed By: #### L 500.4050, L100.0100 ####[facility] [address] [place], [address] Nucleated RBC (Bld) [#/Vol] 0 10*3/uL Normal 0-5 [facility] Comment on above: Performed By: #### L 500.4050, L100.0100 ####[facility] [address] [place], [address] Platelet mean volume (Bld) [Entitic vol] 7.9 fL Normal 6.2-12.0 [facility] Comment on above: Performed By: #### L 500.4050, L100.0100 ####[facility] [address] [place], [address] Platelets (Bld) [#/Vol] 259 10*3/uL Normal 150-450 [facility] Comment on above: Performed By: #### L 500.4050, L100.0100 ####[facility] [address] [place], [address] RBC (Bld) [#/Vol] 3.64 10*6/uL Low 4.6-6.2 [facility] Comment on above: Performed By: #### L 500.4050, L100.0100 ####[facility] [address] [place], [address] RDW SD 43.5 fl Normal 35.1-43.9 [facility] Comment on above: Performed By: #### L 500.4050, L100.0100 ####[facility] [address] [place], [address] WBC (Bld) [#/Vol] 12.8 10*3/uL High 4.4-11.0 [facility] Comment on above: Performed By: #### L 500.4050, L100.0100 ####[facility] [address] [place], [address] Comprehensive Metabolic Prof ilon 07-26-2024 Albumin [Mass/Vol] 2.4 g/dL Low 3.2-5.0 [facility] Comment on above: Performed By: #### L 500.4050, L100.0100 ####[facility] [address] [place], [id number] Albumin/Globulin [Mass ratio] 0.5 {ratio} Low 0.9-2.4 [facility] Comment on above: Performed By: #### L 500.4050, L100.0100 ####[facility] [address] [place], [id number] ALK P 82 U/L Normal 45-117 [facility] Comment on above: Performed By: #### L 500.4050, L100.0100 ####[facility] [address] [place], [id number] ALT [Catalytic activity/Vol] 15 U/L Low 16-61 [facility] Comment on above: Performed By: #### L 500.4050, L100.0100 ####[facility] [address] [place], [address] AST [Catalytic activity/Vol] 12 U/L Low 15-37 [facility] Comment on above: Performed By: #### L 500.4050, L100.0100 ####[facility] [address] [place], [address] Bilirubin [Mass/Vol] 0.40 mg/dL Normal 0.20-1.00 [facility] Comment on above: Result Comment: For patients on eltrombopag therapy, use of Dimension [place] TBIL is not recommended. Performed By: #### L 500.4050, L100.0100 ####[facility] [address] [place], [address] BUN/CRE 19.1 RATIO Normal 10-20 [facility] Comment on above: Performed By: #### L 500.4050, L100.0100 ####[facility] [address] [place], [address] CA,Total 9.4 mg/dL Normal 8.5-10.1 [facility] Comment on above: Performed By: #### L 500.4050, L100.0100 ####[facility] [address] [place], [address] Chloride [Moles/Vol] 99 mmol/L Normal 98-107 [facility] Comment on above: Performed By: #### L 500.4050, L100.0100 ####[facility] [address] [place], [address] CO2 [Moles/Vol] 29.0 mmol/L Normal 21.0-32.0 [facility] Comment on above: Performed By: #### L 500.4050, L100.0100 ####[facility] [address] [place], [address] Creatinine [Mass/Vol] 0.84 mg/dL Normal 0.70-1.30 [facility] Comment on above: Result Comment: The validity of the calculated GFR GFRAA in patients over70 years has not been determined. Clinical correlation isessential. Performed By: #### L 500.4050, L100.0100 ####[facility] [address] [place], [id number] ECRCL 74.03 ml/min Normal [facility] Comment on above: Performed By: #### L 500.4050, L100.0100 ####[facility] [address] [place], [id number] EST GFR - AA 121 mL/min Normal >60 [facility] Comment on above: Result Comment: Afri can [place] GFR Calc Performed By: #### L 500.4050, L100.0100 ####[facility] [address] [place], [address] GAP 4 Low 5-15 [facility] Comment on above: Performed By: #### L 500.4050, L100.0100 ####[facility] [address] [place], [address] GFR/1.73 sq M.predicted among non-blacks MDRD (S/P/Bld) [Vol rate/Area] 100 mL/min/{1.73_m2} Normal >60 [facility] Comment on above: Result Comment: Non- GFR Calc Performed By: #### L 500.4050, L100.0100 ####[facility] [address] [place], [address] Globulin (S) [Mass/Vol] 5.3 g/dL High 2.2-4.2 [facility] Comment on above: Performed By: #### L 500.4050, L100.0100 ####[facility] [address] [place], [address] Glucose [Mass/Vol] 113 mg/dL High 74-106 [facility] Comment on above: Result Comment: Fast ing Glucose result from 100 to 125 mg/dLsuggests IMPAIRED HOMEOSTASIS per A.D.A. criteria. Performed By: #### L 500.4050, L100.0100 ####[facility] [address] [place], [address] Potassium [Moles/Vol] 3.9 mmol/L Normal 3.5-5.1 [facility] Comment on above: Performed By: #### L 500.4050, L100.0100 ####[facility] [address] [place], [address] Sodium [Moles/Vol] 132 mmol/L Low 136-145 [facility] Comment on above: Performed By: #### L 500.4050, L100.0100 ####[facility] [address] [place], [address] T PROT 7.7 g/dL Normal 6.4-8.2 [facility] Comment on above: Performed By: #### L 500.4050, L100.0100 ####[facility] [address] [place], [address] Urea nitrogen [Mass/Vol] 16 mg/dL Normal 7-18 [facility] Comment on above: Performed By: #### L 500.4050, L100.0100 ####[facility] [address] [place], [address] Oncology Visit Reporton 10-0 Oncology Visit Report Normal [facility] Radiation Oncology Visiton 1 0--2023 Radiation Oncology Visit Normal [facility] CBC W/Diff, Automatedon 09-3 0-2023 Absolute Lymph 0.70 X10 3/uL Low 0.83-4.51 [facility] Comment on above: Performed By: #### L 500.4050, L100.0100 ####[facility] [address] [place], [address] Absolute Neut 8.4 X10 3/uL High 2.0-7.7 [facility] Comment on above: Performed By: #### L 500.4050, L100.0100 ####[facility] [address] [place], [address] Basophils/100 WBC (Bld) 0.7 % Normal 0-1 [facility] Comment on above: Performed By: #### L 500.4050, L100.0100 ####[facility] [address] [place], [address] Eosinophils/100 WBC (Bld) 1.4 % Normal 0-5 [facility] Comment on above: Performed By: #### L 500.4050, L100.0100 ####[facility] [address] [place], [address] Erythrocyte distribution width (RBC) [Ratio] 12.9 % Normal 11.6-14.6 [facility] Comment on above: Performed By: #### L 500.4050, L100.0100 ####[facility] [address] [place], [address] Hematocrit (Bld) [Volume fraction] 34.8 % Low 40-54 [facility] Comment on above: Performed By: #### L 500.4050, L100.0100 ####[facility] [address] [place], [address] Hemoglobin (Bld) [Mass/Vol] 11.2 g/dL Low 13.0-16.5 [facility] Comment on above: Performed By: #### L 500.4050, L100.0100 ####[facility] [address] [place], [address] IG% 1.400 High 0.0-0.9 [facility] Comment on above: Result Comment: IG% - Immature Granulocytes (promyelocytes, myelocytes andmetamyelocytes) > 1% indicates that a LEFT SHIFT is Present. Performed By: #### L 500.4050, L100.0100 ####[facility] [address] [place], [address] Lymphocytes/100 WBC (Bld) 7.0 % Low 19-41 [facility] Comment on above: Performed By: #### L 500.4050, L100.0100 ####[facility] [address] [place], [address] MCH (RBC) [Entitic mass] 29.1 pg Normal 27.0-32.0 [facility] Comment on above: Performed By: #### L 500.4050, L100.0100 ####[facility] [address] [place], [address] MCHC (RBC) [Mass/Vol] 32.2 g/dL Normal 32-36 [facility] Comment on above: Performed By: #### L 500.4050, L100.0100 ####[facility] [address] [place], [address] MCV (RBC) [Entitic vol] 90.4 fL Normal 80-94 [facility] Comment on above: Performed By: #### L 500.4050, L100.0100 ####[facility] [address] [place], [address] Monocytes/100 WBC (Bld) 5.1 % Normal 0-10 [facility] Comment on above: Performed By: #### L 500.4050, L100.0100 ####[facility] [address] [place], [address] Neutrophils/100 WBC (Bld) 84.4 % High 47-70 [facility] Comment on above: Performed By: #### L 500.4050, L100.0100 ####[facility] [address] [place], [address] Nucleated RBC (Bld) [#/Vol] 0 10*3/uL Normal 0-5 [facility] Comment on above: Performed By: #### L 500.4050, L100.0100 ####[facility] [address] [place], [address] Platelet mean volume (Bld) [Entitic vol] 8.2 fL Normal 6.2-12.0 [facility] Comment on above: Performed By: #### L 500.4050, L100.0100 ####[facility] [address] [place], [address] Platelets (Bld) [#/Vol] 480 10*3/uL High 150-450 [facility] Comment on above: Performed By: #### L 500.4050, L100.0100 ####[facility] [address] [place], [address] RBC (Bld) [#/Vol] 3.85 10*6/uL Low 4.6-6.2 [facility] Comment on above: Performed By: #### L 500.4050, L100.0100 ####[facility] [address] [place], [address] RDW SD 42.0 fl Normal 35.1-43.9 [facility] Comment on above: Performed By: #### L 500.4050, L100.0100 ####[facility] [address] [place], [address] WBC (Bld) [#/Vol] 10.0 10*3/uL Normal 4.4-11.0 [facility] Comment on above: Performed By: #### L 500.4050, L100.0100 ####[facility] [address] [place], [address] Absolute Neut Normal 2.0-7.7 [facility] Comment on above: Result Comment: DUPL ICATED ORDERS TO [place] PLAN Performed By: #### L 500.4050, L100.0100 ####[facility] [address] [place], [address] HCT Normal 40-54 [facility] Comment on above: Result Comment: DUPL ICATED ORDERS TO TX PLAN Performed By: #### L 500.4050, L100.0100 ####[facility] [address] [place], [address] HGB Normal 13.0-16.5 [facility] Comment on above: Result Comment: DUPL ICATED ORDERS TO TX PLAN Performed By: #### L 500.4050, L100.0100 ####[facility] [address] [place], [address] MCH Normal 27.0-32.0 [facility] Comment on above: Result Comment: DUPL ICATED ORDERS TO TX PLAN Performed By: #### L 500.4050, L100.0100 ####[facility] [address] [place], [address] MCHC Normal 32-36 [facility] Comment on above: Result Comment: DUPL ICATED ORDERS TO TX PLAN Performed By: #### L 500.4050, L100.0100 ####[facility] [address] [place], [address] MCV Normal 80-94 [facility] Comment on above: Result Comment: DUPL ICATED ORDERS TO TX PLAN Performed By: #### L 500.4050, L100.0100 ####[facility] [address] [place], [address] NEUT% Normal 47-70 [facility] Comment on above: Result Comment: DUPL ICATED ORDERS TO TX PLAN Performed By: #### L 500.4050, L100.0100 ####[facility] [address] [place], [address] PLT Normal 150-450 [facility] Comment on above: Result Comment: DUPL ICATED ORDERS TO TX PLAN Performed By: #### L 500.4050, L100.0100 ####[facility] [address] [place], [address] RBC Normal 4.6-6.2 [facility] Comment on above: Result Comment: DUPL ICATED ORDERS TO [place] PLAN Performed By: #### L 500.4050, L100.0100 ####[facility] [address] [place], [address] RDW CV Normal 11.6-14.6 [facility] Comment on above: Result Comment: DUPL ICATED ORDERS TO [place] PLAN Performed By: #### L 500.4050, L100.0100 ####[facility] [address] [place], [id number] RDW SD Normal 35.1-43.9 [facility] Comment on above: Result Comment: DUPL ICATED ORDERS TO TX PLAN Performed By: #### L 500.4050, L100.0100 ####[facility] [address] [place], [address] WBC Normal 4.4-11.0 [facility] Comment on above: Result Comment: DUPL ICATED ORDERS TO [place] PLAN Performed By: #### L 500.4050, L100.0100 ####[facility] [address] [place], [address] Comprehensive Metabolic Prof [facility] 07-19-2024 Albumin [Mass/Vol] 2.4 g/dL Low 3.2-5.0 [facility] Comment on above: Performed By: #### L 500.4050, L100.0100 ####[facility] [address] [place], [address] Albumin/Globulin [Mass ratio] 0.5 {ratio} Low 0.9-2.4 [facility] Comment on above: Performed By: #### L 500.4050, L100.0100 ####[facility] [address] [place], [id number] ALK P 85 U/L Normal 45-117 [facility] Comment on above: Performed By: #### L 500.4050, L100.0100 ####[facility] [address] [place], [address] ALT [Catalytic activity/Vol] 17 U/L Normal 16-61 [facility] Comment on above: Performed By: #### L 500.4050, L100.0100 ####[facility] [address] [place], [address] AST [Catalytic activity/Vol] 13 U/L Low 15-37 [facility] Comment on above: Performed By: #### L 500.4050, L100.0100 ####[facility] [address] [place], [id number] Bilirubin [Mass/Vol] 0.50 mg/dL Normal 0.20-1.00 [facility] Comment on above: Result Comment: For patients on eltrombopag therapy, use of Dimension [place] TBIL is not recommended. Performed By: #### L 500.4050, L100.0100 ####[facility] [address] [place], [address] BUN/CRE 17.1 RATIO Normal 10-20 [facility] Comment on above: Performed By: #### L 500.4050, L100.0100 ####[facility] [address] [place], [id number] CA,Total 9.3 mg/dL Normal 8.5-10.1 [facility] Comment on above: Performed By: #### L 500.4050, L100.0100 ####[facility] [address] [place], [address] Chloride [Moles/Vol] 104 mmol/L Normal 98-107 [facility] Comment on above: Performed By: #### L 500.4050, L100.0100 ####[facility] [address] [place], [address] CO2 [Moles/Vol] 29.0 mmol/L Normal 21.0-32.0 [facility] Comment on above: Performed By: #### L 500.4050, L100.0100 ####[facility] [address] [place], [address] Creatinine [Mass/Vol] 0.88 mg/dL Normal 0.70-1.30 [facility] Comment on above: Result Comment: The validity of the calculated GFR GFRAA in patients over70 years has not been determined. Clinical correlation isessential. Performed By: #### L 500.4050, L100.0100 ####[facility] [address] [place], [address] ECRCL 71.32 ml/min Normal [facility] Comment on above: Performed By: #### L 500.4050, L100.0100 ####[facility] [address] [place], [address] EST GFR - AA 115 mL/min Normal >60 [facility] Comment on above: Result Comment: Afri can [place] GFR Calc Performed By: #### L 500.4050, L100.0100 ####[facility] [address] [place], [address] GAP 8 Normal 5-15 [facility] Comment on above: Performed By: #### L 500.4050, L100.0100 ####[facility] [address] [place], [address] GFR/1.73 sq M.predicted among non-blacks MDRD (S/P/Bld) [Vol rate/Area] 95 mL/min/{1.73_m2} Normal >60 [facility] Comment on above: Result Comment: Non- GFR Calc Performed By: #### L 500.4050, L100.0100 ####[facility] [address] [place], [address] Globulin (S) [Mass/Vol] 5.2 g/dL High 2.2-4.2 [facility] Comment on above: Performed By: #### L 500.4050, L100.0100 ####[facility] [address] [place], [address] Glucose [Mass/Vol] 116 mg/dL High 74-106 [facility] Comment on above: Result Comment: Fast ing Glucose result from 100 to 125 mg/dLsuggests IMPAIRED HOMEOSTASIS per A.D.A. criteria. Performed By: #### L 500.4050, L100.0100 ####[facility] [address] [place], [address] Potassium [Moles/Vol] 3.4 mmol/L Low 3.5-5.1 [facility] Comment on above: Performed By: #### L 500.4050, L100.0100 ####[facility] [address] [place], [address] Sodium [Moles/Vol] 141 mmol/L Normal 136-145 [facility] Comment on above: Performed By: #### L 500.4050, L100.0100 ####[facility] [address] [place], [address] T PROT 7.6 g/dL Normal 6.4-8.2 [facility] Comment on above: Performed By: #### L 500.4050, L100.0100 ####[facility] [address] [place], [address] Urea nitrogen [Mass/Vol] 15 mg/dL Normal 7-18 [facility] Comment on above: Performed By: #### L 500.4050, L100.0100 ####[facility] [address] [place], [address] ALB Normal 3.2-5.0 [facility] Comment on above: Result Comment: DUPL ICATED ORDERS TO TX PLAN Performed By: #### L 500.4050, L100.0100 ####[facility] [address] [place], [address] ALK P Normal 45-117 [facility] Comment on above: Result Comment: DUPL ICATED ORDERS TO TX PLAN Performed By: #### L 500.4050, L100.0100 ####[facility] [address] [place], [address] ALT Normal 16-61 [facility] Comment on above: Result Comment: DUPL ICATED ORDERS TO TX PLAN Performed By: #### L 500.4050, L100.0100 ####[facility] [address] [place], [address] AST Normal 15-37 [facility] Comment on above: Result Comment: DUPL ICATED ORDERS TO TX PLAN Performed By: #### L 500.4050, L100.0100 ####[facility] [address] [place], [address] BUN Normal 7-18 [facility] Comment on above: Result Comment: DUPL ICATED ORDERS TO TX PLAN Performed By: #### L 500.4050, L100.0100 ####[facility] [address] [place], [address] BUN/CRE Normal 10-20 [facility] Comment on above: Result Comment: DUPL ICATED ORDERS TO TX PLAN Performed By: #### L 500.4050, L100.0100 ####[facility] [address] [place], [address] CA,Total Normal 8.5-10.1 [facility] Comment on above: Result Comment: DUPL ICATED ORDERS TO TX PLAN Performed By: #### L 500.4050, L100.0100 ####[facility] [address] [place], [address] CL Normal 98-107 [facility] Comment on above: Result Comment: DUPL ICATED ORDERS TO TX PLAN Performed By: #### L 500.4050, L100.0100 ####[facility] [address] [place], [address] CO2 Normal 21.0-32.0 [facility] Comment on above: Result Comment: DUPL ICATED ORDERS TO TX PLAN Performed By: #### L 500.4050, L100.0100 ####[facility] [address] [place], [address] CREAT,SERUM Normal 0.70-1.30 [facility] Comment on above: Result Comment: DUPL ICATED ORDERS TO TX PLAN Performed By: #### L 500.4050, L100.0100 ####[facility] [address] [place], [address] EST GFR Normal >60 [facility] Comment on above: Result Comment: DUPL ICATED ORDERS TO TX PLAN Performed By: #### L 500.4050, L100.0100 ####[facility] [address] [place], [address] EST GFR - AA Normal >60 [facility] Comment on above: Result Comment: DUPL ICATED ORDERS TO TX PLAN Performed By: #### L 500.4050, L100.0100 ####[facility] [address] [place], [address] GAP Normal 5-15 [facility] Comment on above: Result Comment: DUPL ICATED ORDERS TO TX PLAN Performed By: #### L 500.4050, L100.0100 ####[facility] [address] [place], [address] GLU Normal 74-106 [facility] Comment on above: Result Comment: DUPL ICATED ORDERS TO TX PLAN Performed By: #### L 500.4050, L100.0100 ####[facility] [address] [place], [address] Potassium Normal 3.5-5.1 [facility] Comment on above: Result Comment: DUPL ICATED ORDERS TO [place] PLAN Performed By: #### L 500.4050, L100.0100 ####[facility] [address] [place], [address] T BILI Normal 0.20-1.00 [facility] Comment on above: Result Comment: DUPL ICATED ORDERS TO [place] PLAN Performed By: #### L 500.4050, L100.0100 ####[facility] [address] [place], [address] T PROT Normal 6.4-8.2 [facility] Comment on above: Result Comment: DUPL ICATED ORDERS TO [place] PLAN Performed By: #### L 500.4050, L100.0100 ####[facility] [address] [place], [address] Comprehensive Metabolic Profil Normal 136-145 [facility] Comment on above: Result Comment: DUPL ICATED ORDERS TO [place] PLAN Performed By: #### L 500.4050, L100.0100 ####[facility] [address] [place], [address] Oncology Visit Reporton 06-22 Oncology Visit Report Normal [facility] CXR for Line Placementon CXR for Line Placement Normal [facility] Discharge Instructionon 06-21 Discharge Instruction Normal [facility] MR/POSTOP.ANEon 07-15-2024 MR/POSTOP.ANE Normal [facility] MR/[id number] 07-15-2024 MR/POSTOPAN2 Normal [facility] Operative Reporton Operative Report Normal [facility] Radiation Oncology Visiton 0 07-14-2024 Radiation Oncology Visit Normal [facility] Surgery Visit Reporton 07-13 Surgery Visit Report Normal [facility] Oncology Visit Reporton 06-21 Oncology Visit Report Normal [facility] CBC W/Diff, Automatedon 06-20 Absolute Lymph 1.47 X10 3/uL Normal 0.83-4.51 [facility] Comment on above: Performed By: #### L 100.0100, L500.4050, L504.2610 ####[facility] [address] [place], [address] Absolute Neut 13.9 X10 3/uL High 2.0-7.7 [facility] Comment on above: Performed By: #### L 100.0100, L500.4050, L504.2610 ####[facility] [address] [place], [address] Basophils/100 WBC (Bld) 0.4 % Normal 0-1 [facility] Comment on above: Performed By: #### L 100.0100, L500.4050, L504.2610 ####[facility] [address] [place], [address] Eosinophils/100 WBC (Bld) 0.5 % Normal 0-5 [facility] Comment on above: Performed By: #### L 100.0100, L500.4050, L504.2610 ####[facility] [address] [place], [address] Erythrocyte distribution width (RBC) [Ratio] 13.1 % Normal 11.6-14.6 [facility] Comment on above: Performed By: #### L 100.0100, L500.4050, L504.2610 ####[facility] [address] [place], [address] Hematocrit (Bld) [Volume fraction] 37.4 % Low 40-54 [facility] Comment on above: Performed By: #### L 100.0100, L500.4050, L504.2610 ####[facility] [address] [place], [address] Hemoglobin (Bld) [Mass/Vol] 12.1 g/dL Low 13.0-16.5 [facility] Comment on above: Performed By: #### L 100.0100, L500.4050, L504.2610 ####[facility] [address] [place], [address] IG% 0.700 Normal 0.0-0.9 [facility] Comment on above: Result Comment: IG% - Immature Granulocytes (promyelocytes, myelocytes andmetamyelocytes) > 1% indicates that a LEFT SHIFT is Present. Performed By: #### L 100.0100, L500.4050, L504.2610 ####[facility] [address] [place], [address] Lymphocytes/100 WBC (Bld) 8.7 % Low 19-41 [facility] Comment on above: Performed By: #### L 100.0100, L500.4050, L504.2610 ####[facility] [address] [place], [address] MCH (RBC) [Entitic mass] 29.7 pg Normal 27.0-32.0 [facility] Comment on above: Performed By: #### L 100.0100, L500.4050, L504.2610 ####[facility] [address] [place], [address] MCHC (RBC) [Mass/Vol] 32.4 g/dL Normal 32-36 [facility] Comment on above: Performed By: #### L 100.0100, L500.4050, L504.2610 ####[facility] [address] [place], [address] MCV (RBC) [Entitic vol] 91.7 fL Normal 80-94 [facility] Comment on above: Performed By: #### L 100.0100, L500.4050, L504.2610 ####[facility] [address] [place], [address] Monocytes/100 WBC (Bld) 7.2 % Normal 0-10 [facility] Comment on above: Performed By: #### L 100.0100, L500.4050, L504.2610 ####[facility] [address] [place], [address] Neutrophils/100 WBC (Bld) 82.5 % High 47-70 [facility] Comment on above: Performed By: #### L 100.0100, L500.4050, L504.2610 ####[facility] [address] [place], [address] Nucleated RBC (Bld) [#/Vol] 0 10*3/uL Normal 0-5 [facility] Comment on above: Performed By: #### L 100.0100, L500.4050, L504.2610 ####[facility] [address] [place], [address] Platelet mean volume (Bld) [Entitic vol] 8.3 fL Normal 6.2-12.0 [facility] Comment on above: Performed By: #### L 100.0100, L500.4050, L504.2610 ####[facility] [address] [place], [address] Platelets (Bld) [#/Vol] 578 10*3/uL High 150-450 [facility] Comment on above: Performed By: #### L 100.0100, L500.4050, L504.2610 ####[facility] [address] [place], [address] RBC (Bld) [#/Vol] 4.08 10*6/uL Low 4.6-6.2 [facility] Comment on above: Performed By: #### L 100.0100, L500.4050, L504.2610 ####[facility] [address] [place], [address] RDW SD 44.1 fl High 35.1-43.9 [facility] Comment on above: Performed By: #### L 100.0100, L500.4050, L504.2610 ####[facility] [address] [place], [address] WBC (Bld) [#/Vol] 16.9 10*3/uL High 4.4-11.0 [facility] Comment on above: Performed By: #### L 100.0100, L500.4050, L504.2610 ####[facility] [address] [place], [address] Comprehensive Metabolic Prof ilon 07-06-2024 Albumin [Mass/Vol] 2.7 g/dL Low 3.2-5.0 [facility] Comment on above: Order Comment: 1 Performed By: #### L 100.0100, L500.4050, L504.2610 ####[facility] [address] [place], [address] Albumin/Globulin [Mass ratio] 0.5 {ratio} Low 0.9-2.4 [facility] Comment on above: Order Comment: 1 Performed By: #### L 100.0100, L500.4050, L504.2610 ####[facility] [address] [place], [address] ALK P 105 U/L Normal 45-117 [facility] Comment on above: Order Comment: 1 Performed By: #### L 100.0100, L500.4050, L504.2610 ####[facility] [address] [place], [address] ALT [Catalytic activity/Vol] 18 U/L Normal 16-61 [facility] Comment on above: Order Comment: 1 Performed By: #### L 100.0100, L500.4050, L504.2610 ####[facility] [address] [place], [address] AST [Catalytic activity/Vol] 12 U/L Low 15-37 [facility] Comment on above: Order Comment: 1 Performed By: #### L 100.0100, L500.4050, L504.2610 ####[facility] [address] [place], [address] Bilirubin [Mass/Vol] 0.40 mg/dL Normal 0.20-1.00 [facility] Comment on above: Order Comment: 1 Result Comment: For patients on eltrombopag therapy, use of Dimension [place] TBIL is not recommended. Performed By: #### L 100.0100, L500.4050, L504.2610 ####[facility] [address] [place], [address] BUN/CRE 24.8 RATIO High 10-20 [facility] Comment on above: Order Comment: 1 Performed By: #### L 100.0100, L500.4050, L504.2610 ####[facility] [address] [place], [address] CA,Total 10.0 mg/dL Normal 8.5-10.1 [facility] Comment on above: Order Comment: 1 Performed By: #### L 100.0100, L500.4050, L504.2610 ####[facility] [address] [place], [address] Chloride [Moles/Vol] 102 mmol/L Normal 98-107 [facility] Comment on above: Order Comment: 1 Performed By: #### L 100.0100, L500.4050, L504.2610 ####[facility] [address] [place], [address] CO2 [Moles/Vol] 26.0 mmol/L Normal 21.0-32.0 [facility] Comment on above: Order Comment: 1 Performed By: #### L 100.0100, L500.4050, L504.2610 ####[facility] [address] [place], [address] Creatinine [Mass/Vol] 1.09 mg/dL Normal 0.70-1.30 [facility] Comment on above: Order Comment: 1 Result Comment: The validity of the calculated GFR GFRAA in patients over70 years has not been determined. Clinical correlation isessential. Performed By: #### L 100.0100, L500.4050, L504.2610 ####[facility] [address] [place], [address] EST GFR - AA 89 mL/min Normal >60 [facility] Comment on above: Order Comment: 1 Result Comment: Afri can [place]ran GFR Calc Performed By: #### L 100.0100, L500.4050, L504.2610 ####[facility] [address] [place], [address] GAP 8 Normal 5-15 [facility] Comment on above: Order Comment: 1 Performed By: #### L 100.0100, L500.4050, L504.2610 ####[facility] [address] [place], [address] GFR/1.73 sq M.predicted among non-blacks MDRD (S/P/Bld) [Vol rate/Area] 74 mL/min/{1.73_m2} Normal >60 [facility] Comment on above: Order Comment: 1 Result Comment: Non- GFR Calc Performed By: #### L 100.0100, L500.4050, L504.2610 ####[facility] [address] [place], [address] Globulin (S) [Mass/Vol] 5.9 g/dL High 2.2-4.2 [facility] Comment on above: Order Comment: 1 Performed By: #### L 100.0100, L500.4050, L504.2610 ####[facility] [address] [place], [address] Glucose [Mass/Vol] 89 mg/dL Normal 74-106 [facility] Comment on above: Order Comment: 1 Performed By: #### L 100.0100, L500.4050, L504.2610 ####[facility] [address] [place], [address] Potassium [Moles/Vol] 3.8 mmol/L Normal 3.5-5.1 [facility] Comment on above: Order Comment: 1 Performed By: #### L 100.0100, L500.4050, L504.2610 ####[facility] [address] [place], [address] Sodium [Moles/Vol] 136 mmol/L Normal 136-145 [facility] Comment on above: Order Comment: 1 Performed By: #### L 100.0100, L500.4050, L504.2610 ####[facility] [address] [place], [address] T PROT 8.6 g/dL High 6.4-8.2 [facility] Comment on above: Order Comment: 1 Performed By: #### L 100.0100, L500.4050, L504.2610 ####[facility] [address] [place], [address] Urea nitrogen [Mass/Vol] 27 mg/dL High 7-18 [facility] Comment on above: Order Comment: 1 Performed By: #### L 100.0100, L500.4050, L504.2610 ####[facility] [address] [place], [address] LDHon 07-06-2024 LDH 111 U/L Normal 87-241 [facility] Comment on above: Order Comment: 1 Performed By: #### L 100.0100, L500.4050, L504.2610 ####[facility] [address] [place], [address] Oncology Visit Reporton 06-20 Oncology Visit Report Normal [facility] PET/CT Tumor Base -Thigh Ini ton 07-06-2024 PET/CT Tumor Base -Thigh Init Normal [facility] CT Chest, Abd, Pel w/Contras ton 06-29-2024 CT Chest, Abd, Pel w/Contrast [facility] SURG PATH REQUESTon 06-25-20 Case Report [facility] Comment on above: Result Comment: Surg ical Pathology Report Case: [id number] Authorizing Provider: Hilary Lewis MD Collected: 06/25/2024 11:57 AM Ordering Location: [facility] Received: 06/25/2024 03:01 PM Pathologist: Brittny Arias MD Specimen: TISSUE, rectal cancer Performed By: #### S URGP #### U [facility] (DEFAULT) [address] [place] [address] Clinical History Malignant neoplasm o f rectum. Medical History: Colon cancer. [facility] Comment on above: Performed By: #### S URGP #### U [facility] (DEFAULT) [address] [place] [address] Gross Description [facility] Comment on above: Result Comment: The specimen is received in one properly labeled container with the patient's name and accession number. A. The specimen is designated rectal cancer and consists of four fragments of avery-pink soft tissue, from 0.1 up to 0.5 cm in greatest dimension. TE 1 Lab Use Only: JobID [id number] Grosser for this case was: Rubia Paris Performed By: #### S URGP #### [facility] (DEFAULT) [address] [place] [address] Microscopic Description A microscopic examination was performed. [facility] Comment on above: Performed By: #### S URGP #### [facility] (DEFAULT) [address] [place] [address] Pathologic Diagnosis [facility] Comment on above: Result Comment: A. R ectum, biopsy: Adenocarcinoma, superficial fragments - see note. Note: The prior biopsy report from an outside institution reported the mismatch repair proteins (MMR) as intact by IHC. Performed By: #### S URGP #### [facility] (DEFAULT) [address] [address] Professional Interpretation Performed at: Normal [facility] Comment on above: Result Comment: [facility] For Immediate Release to Patient's [facility]? Yes [address] [place], [place] [address] Performed By: #### S URGP #### [facility] (DEFAULT) [address] [address] Radiation Oncology Visiton 0 06-24-2024 Radiation Oncology Visit Normal [facility] Carcinoembryonic Antigenon 0 06-11-2024 CEA < 0.6 Normal 0.0-4.7 [facility] Comment on above: Result Comment: Nons mokers <3.9 Smokers <5.6[employer] Electrochemiluminescence Immunoassay(ECLIA)Values obtained with different assay methods or kitscannot be used interchangeably. Results cannot beinterpreted as absolute evidence of the presence orabsence of malignant disease.Performed at: [facility] [id number] Director: Javid Diehl PhD, Phone: [phone] Performed By: #### L 3475.7630 ####[facility] [address] [facility] [place], [place], [id number] Oncology Visit Reporton 05-21 Oncology Visit Report Normal [facility] CT ABDOMEN/PELVIS WITH CONTR Yeison 05-21-2024 CT [...] Polypoid lesion in the rectal stump. Normal [facility] DRAINAGE BY CATHETER PERITON EAL/RETROPERITONEAL PERCUTANEOUS [...] medication(s), I spent 13 minutes of continuous vhls-jr-nmmh time with the patient. COMPARISON: No prior [...] Primary Service: Interventional Radiology (Panel 1) Normal [facility] BACTERIAL CULTURE AND DIRECT SMEAR, LESION, TISSUE, DEVICEon 05-09-2024 Bacteria identified Cx Nom (Unsp spec) NO GROWTH DAY 2 OF 2 [facility] Bacteria identified Cx Nom ( Unsp spec)on 05-09-2024 Microscopic observation Other stain Nom (Unsp spec) Neutrophils, Heavy [facility] Microscopic observation Other stain Nom (Unsp spec) Mononuclear cells present [facility] Microscopic observation Other stain Nom (Unsp spec) No organisms seen [facility] CBC,PLATELETSon 05-09-2024 Erythrocyte distribution width (RBC) [Ratio] 14.5 % High 10.9 - 14.3 % [facility] Hematocrit (Bld) [Volume fraction] 27.7 % Low 39.6 - 48.8 % [facility] Hemoglobin (Bld) [Mass/Vol] 8.8 g/dL Low 13.4 - 16.8 g/dL [facility] Interpretation and review of laboratory results Abnormal [facility] MCH (RBC) [Entitic mass] 29.2 pg 26.1 - 33.3 pg [facility] MCHC (RBC) [Mass/Vol] 31.8 g/dL Low 31.9 - 36.5 g/dL [facility] MCV (RBC) [Entitic vol] 92.0 fL 79.0 - 94.5 fL [facility] Platelet mean volume (Bld) [Entitic vol] 8.5 fL Low 8.7 - 12.3 fL [facility] Platelets (Bld) [#/Vol] 535 10*3/uL High 146 - 337 K/uL [facility] RBC (Bld) [#/Vol] 3.01 10*6/uL Low [facility] WBC (Bld) [#/Vol] 9.56 10*3/uL 3.73 - 10.10 K/uL [facility] Hematocrit (Bld) [Volume fraction] 27.7 % Low 39.6-48.8 [facility] Comment on above: Performed By: #### T YPEC #### [facility] (DEFAULT) [address] [place] [address] Hemoglobin (Bld) [Mass/Vol] 8.8 g/dL Low 13.4-16.8 [facility] Comment on above: Performed By: #### T YPEC #### [facility] (DEFAULT) [address] [place] [address] MCV (RBC) [Entitic vol] 92.0 fL Normal 79.0-94.5 [facility] Comment on above: Performed By: #### T YPEC #### [facility] (DEFAULT) [address] [place] [address] Mean Cell Hgb 29.2 pg Normal 26.1-33.3 [facility] Comment on above: Performed By: #### T YPEC #### [facility] (DEFAULT) [address] [place] [address] Mean Cell Hgb Conc 31.8 g/dL Low 31.9-36.5 [facility] Comment on above: Performed By: #### T YPEC #### [facility] (DEFAULT) [address] [place] [address] Platelet mean volume (Bld) [Entitic vol] 8.5 fL Low 8.7-12.3 [facility] Comment on above: Performed By: #### T YPEC #### [facility] (DEFAULT) [address] [place] [address] Platelets (Bld) [#/Vol] 535 10*3/uL High 146-337 [facility] Comment on above: Performed By: #### T YPEC #### [facility] (DEFAULT) [address] [place] [address] RBC (Bld) [#/Vol] 3.01 10*6/uL Low 4.38-5.83 [facility] Comment on above: Performed By: #### T YPEC #### [facility] (DEFAULT) [address] [place] [address] RBC Distribution 14.5 % High 10.9-14.3 [facility] Comment on above: Performed By: #### T YPEC #### [facility] (DEFAULT) [address] [place] [address] WBC (Bld) [#/Vol] 9.56 10*3/uL Normal 3.73-10.10 [facility] Comment on above: Performed By: #### T YPEC #### [facility] (DEFAULT) [address] [place] [address] CHEM 7 (LYTES,BUN,CREA,GLUC) on 05-09-2024 Anion gap [Moles/Vol] 13 mmol/L 7 - 17 mmol/L [facility] Chloride [Moles/Vol] 103 mmol/L 98 - 10 8 mmol/L [facility] CO2 [Moles/Vol] 27 mmol/L 21 - 31 mmol/L [facility] Creatinine [Mass/Vol] 0.72 mg/dL 0.70 - 1.30 mg/dL [facility] eGFR, CKD-EPI, Male - PINF [facility] Comment on above: Reported eGFR is bas ed on the CKD-EPI 2020 equation using creatinine, age, and sex. Glucose [Mass/Vol] 110 mg/dL High 70 - 99 mg/dL [facility] Interpretation and review of laboratory results Abnormal [facility] Osmolality Calc [Osmolality] 293 [facility] Potassium [Moles/Vol] 4.6 mmol/L 3.5 - 5.0 mmol/L [facility] Sodium [Moles/Vol] 138 mmol/L 135 - 145 mmol/L [facility] Urea nitrogen [Mass/Vol] 19 mg/dL 7 - 25 mg/dL [facility] Urea nitrogen/Creatinine [Mass ratio] 26 mg/mg [facility] Anion gap [Moles/Vol] 13 mmol/L Normal 7-[address] [facility] Comment on above: Performed By: #### C HM7 ####[facility] (DEFAULT)[address] [place] [address] Chloride [Moles/Vol] 103 mmol/L Normal 98-108 [facility] Comment on above: Performed By: #### C HM7 ####[facility] (DEFAULT)[address] [place] [address] CO2 [Moles/Vol] 27 mmol/L Normal 21-31 [facility] Comment on above: Performed By: #### C HM7 ####[facility] (DEFAULT)[address] [place] [address] Creatinine [Mass/Vol] 0.72 mg/dL Normal 0.70-1.[address] [facility] Comment on above: Performed By: #### C HM7 ####[facility] (DEFAULT)[address] [place] [address] eGFR, CKD-EPI, Male > Normal >=60 [facility] Comment on above: Result Comment: Repo rted eGFR is based on the CKD-EPI 2020 equation using creatinine, age, and sex. Performed By: #### C HM7 ####[facility] (DEFAULT)[address] [place] [address] Glucose [Mass/Vol] 110 mg/dL High 70-99 [facility] Comment on above: Performed By: #### C HM7 ####[facility] (DEFAULT)[address] [place] [address] Osmolality [Osmolality] 293 mosm/kg Normal 278-305 [facility] Comment on above: Performed By: #### C HM7 ####[facility] (DEFAULT)[address] [place] [address] Potassium [Moles/Vol] 4.6 mmol/L Normal 3.5-5.0 [facility] Comment on above: Performed By: #### C HM7 ####[facility] (DEFAULT)[address] [place] [address] Sodium [Moles/Vol] 138 mmol/L Normal 135-145 [facility] Comment on above: Performed By: #### C HM7 ####[facility] (DEFAULT)[address] [place] [address] Urea nitrogen [Mass/Vol] 19 mg/dL Normal 7-25 [facility] Comment on above: Performed By: #### C HM7 ####[facility] (DEFAULT)[address] [place] [address] Urea nitrogen/Creatinine [Mass ratio] 26 mg/mg Normal [facility] Comment on above: Performed By: #### C HM7 ####[facility] (DEFAULT)[address] [place] [address] CBC,PLATELETSon 05-08-2024 Erythrocyte distribution width (RBC) [Ratio] 14.4 % High 10.9 - 14.3 % [facility] Hematocrit (Bld) [Volume fraction] 27.5 % Low 39.6 - 48.8 % [facility] Hemoglobin (Bld) [Mass/Vol] 8.8 g/dL Low 13.4 - 16.8 g/dL [facility] Interpretation and review of laboratory results Abnormal [facility] MCH (RBC) [Entitic mass] 29.4 pg 26.1 - 33.3 pg [facility] MCHC (RBC) [Mass/Vol] 32.0 g/dL 31.9 - 36.5 g/dL [facility] MCV (RBC) [Entitic vol] 92.0 fL 79.0 - 94.5 fL [facility] Platelet mean volume (Bld) [Entitic vol] 8.8 fL 8.7 - 12.3 fL [facility] Platelets (Bld) [#/Vol] 520 10*3/uL High 146 - 337 K/uL [facility] RBC (Bld) [#/Vol] 2.99 10*6/uL Low [facility] WBC (Bld) [#/Vol] 12.74 10*3/uL High 3.73 - 10.10 K/uL [facility] Hematocrit (Bld) [Volume fraction] 27.5 % Low 39.6-48.8 [facility] Comment on above: Performed By: #### Claire HMRosemary, IPB, MGO #### [facility] (DEFAULT) [address] [address] Hemoglobin (Bld) [Mass/Vol] 8.8 g/dL Low 13.4-16.8 [facility] Comment on above: Performed By: #### Claire STAPLES, CASSIDYB, MGO #### [facility] (DEFAULT) [address] [address] MCV (RBC) [Entitic vol] 92.0 fL Normal 79.0-94.5 [facility] Comment on above: Performed By: #### Claire STAPLES, CASSIDYB, MGO #### [facility] (DEFAULT) [address] [place] [address] Mean Cell Hgb 29.4 pg Normal 26.1-33.3 [facility] Comment on above: Performed By: #### Claire STAPLES, IPB, MGO #### [facility] (DEFAULT) [address] [place] [address] Mean Cell Hgb Conc 32.0 g/dL Normal 31.9-36.5 [facility] Comment on above: Performed By: #### Claire HMRosemary, IPB, MGO #### [facility] (DEFAULT) [address] [address] Platelet mean volume (Bld) [Entitic vol] 8.8 fL Normal 8.7-12.3 [facility] Comment on above: Performed By: #### C HM7, IPB, MGO #### U [facility] (DEFAULT) [address] [place] [address] Platelets (Bld) [#/Vol] 520 10*3/uL High 146-337 [facility] Comment on above: Performed By: #### Claire HM7, IPB, MGO #### U [facility] (DEFAULT) [address] [place] [address] RBC (Bld) [#/Vol] 2.99 10*6/uL Low 4.38-5.83 [facility] Comment on above: Performed By: #### Claire HM7, IPB, MGO #### U [facility] (DEFAULT) [address] [place] [address] RBC Distribution 14.4 % High 10.9-14.3 [facility] Comment on above: Performed By: #### Claire HM7, IPB, MGO #### U [facility] (DEFAULT) [address] [place] [address] WBC (Bld) [#/Vol] 12.74 10*3/uL High 3.73-10.10 [facility] Comment on above: Performed By: #### Claire HM7, IPB, MGO #### [facility] (DEFAULT) [address] [place] [address] CHEM 7 (LYTES,BUN,CREA,GLUC) on 05-08-2024 Anion gap [Moles/Vol] 14 mmol/L 7 - 17 mmol/L [facility] Chloride [Moles/Vol] 101 mmol/L 98 - 10 8 mmol/L [facility] CO2 [Moles/Vol] 26 mmol/L 21 - 31 mmol/L [facility] Creatinine [Mass/Vol] 0.86 mg/dL 0.70 - 1.30 mg/dL [facility] eGFR, CKD-EPI, Male - PINF [facility] Comment on above: Reported eGFR is bas ed on the CKD-EPI 2020 equation using creatinine, age, and sex. Glucose [Mass/Vol] 151 mg/dL High 70 - 99 mg/dL [facility] Interpretation and review of laboratory results Abnormal [facility] Osmolality Calc [Osmolality] 292 [facility] Potassium [Moles/Vol] 4.0 mmol/L 3.5 - 5.0 mmol/L [facility] Sodium [Moles/Vol] 137 mmol/L 135 - 145 mmol/L [facility] Urea nitrogen [Mass/Vol] 18 mg/dL 7 - 25 mg/dL [facility] Urea nitrogen/Creatinine [Mass ratio] 21 mg/mg [facility] Anion gap [Moles/Vol] 14 mmol/L Normal 7-[address] [facility] Comment on above: Performed By: #### Claire STAPLES, CASSIDYB, MGO #### [facility] (DEFAULT) [address] [place] [address] Chloride [Moles/Vol] 101 mmol/L Normal 98-108 [facility] Comment on above: Performed By: #### Claire HMRosemary, IPB, MGO #### [facility] (DEFAULT) [address] [place] [address] CO2 [Moles/Vol] 26 mmol/L Normal 21-31 [facility] Comment on above: Performed By: #### Claire HMRosemary, IPB, MGO #### [facility] (DEFAULT) [address] [place] [address] Creatinine [Mass/Vol] 0.86 mg/dL Normal 0.70-1.[address] [facility] Comment on above: Performed By: #### Claire HMRosemary, IPB, MGO #### [facility] (DEFAULT) [address] [place] [address] eGFR, CKD-EPI, Male > Normal >=60 [facility] Comment on above: Result Comment: Repo rted eGFR is based on the CKD-EPI 2020 equation using creatinine, age, and sex. Performed By: #### Claire STAPLES, IPB, MGO #### [facility] (DEFAULT) [address] [place] [address] Glucose [Mass/Vol] 151 mg/dL High 70-99 [facility] Comment on above: Performed By: #### C HM7, IPB, MGO #### [facility] (DEFAULT) [address] [place] [address] Osmolality [Osmolality] 292 mosm/kg Normal 278-305 [facility] Comment on above: Performed By: #### C HM7, IPB, MGO #### [facility] (DEFAULT) [address] [place] [address] Potassium [Moles/Vol] 4.0 mmol/L Normal 3.5-5.[address] [facility] Comment on above: Performed By: #### Claire HM7, IPB, MGO #### [facility] (DEFAULT) [address] [place] [address] Sodium [Moles/Vol] 137 mmol/L Normal 135-145 [facility] Comment on above: Performed By: #### C HM7, IPB, MGO #### U [facility] (DEFAULT) [address] [place] [address] Urea nitrogen [Mass/Vol] 18 mg/dL Normal 7-25 [facility] Comment on above: Performed By: #### Claire HM7, IPB, MGO #### [facility] (DEFAULT) [address] [place] [address] Urea nitrogen/Creatinine [Mass ratio] 21 mg/mg Normal [facility] Comment on above: Performed By: #### C HM7, IPB, MGO #### U [facility] (DEFAULT) [address] [place] [address] BACTERIAL CULTURE AND DIRECT SMEAR, LESION, TISSUE, DEVICEon 05-07-2024 Bacteria identified Cx Nom (Unsp spec) NO GROWTH DAY [address] [facility] Comment on above: Performed By: #### G EN #### [facility] (DEFAULT) [address] [place] [address] Microscopic observation Gram stain Nom (Unsp spec) Normal [facility] Comment on above: Result Comment: Neut rophils, Heavy Mononuclear cells present No organisms seen Performed By: #### G EN #### [facility] (DEFAULT) [address] [place] [address] CBC,PLATELETSon 05-07-2024 Erythrocyte distribution width (RBC) [Ratio] 14.6 % High 10.9 - 14.3 % [facility] Hematocrit (Bld) [Volume fraction] 27.0 % Low 39.6 - 48.8 % [facility] Hemoglobin (Bld) [Mass/Vol] 8.4 g/dL Low 13.4 - 16.8 g/dL [facility] Interpretation and review of laboratory results Abnormal [facility] MCH (RBC) [Entitic mass] 29.1 pg 26.1 - 33.3 pg [facility] MCHC (RBC) [Mass/Vol] 31.1 g/dL Low 31.9 - 36.5 g/dL [facility] MCV (RBC) [Entitic vol] 93.4 fL 79.0 - 94.5 fL [facility] Platelet mean volume (Bld) [Entitic vol] 9.1 fL 8.7 - 12.3 fL [facility] Platelets (Bld) [#/Vol] 508 10*3/uL High 146 - 337 K/uL [facility] RBC (Bld) [#/Vol] 2.89 10*6/uL Low [facility] WBC (Bld) [#/Vol] 19.46 10*3/uL High 3.73 - 10.10 K/uL [facility] Hematocrit (Bld) [Volume fraction] 27.0 % Low 39.6-48.8 [facility] Comment on above: Performed By: #### C HM7, IPB, MGO #### [facility] (DEFAULT) [address] [place] [address] Hemoglobin (Bld) [Mass/Vol] 8.4 g/dL Low 13.4-16.8 [facility] Comment on above: Performed By: #### Claire HM7, IPB, MGO #### [facility] (DEFAULT) [address] [place] [address] MCV (RBC) [Entitic vol] 93.4 fL Normal 79.0-94.5 [facility] Comment on above: Performed By: #### Claire HM7, IPB, MGO #### [facility] (DEFAULT) [address] [place] [address] Mean Cell Hgb 29.1 pg Normal 26.1-33.3 [facility] Comment on above: Performed By: #### Claire HM7, IPB, MGO #### [facility] (DEFAULT) [address] [place] [address] Mean Cell Hgb Conc 31.1 g/dL Low 31.9-36.5 [facility] Comment on above: Performed By: #### Claire HM7, IPB, MGO #### [facility] (DEFAULT) [address] [place] [address] Platelet mean volume (Bld) [Entitic vol] 9.1 fL Normal 8.7-12.3 [facility] Comment on above: Performed By: #### Claire HM7, IPB, MGO #### [facility] (DEFAULT) [address] [place] [address] Platelets (Bld) [#/Vol] 508 10*3/uL High 146-337 [facility] Comment on above: Performed By: #### Claire HM7, IPB, MGO #### [facility] (DEFAULT) [address] [place] [address] RBC (Bld) [#/Vol] 2.89 10*6/uL Low 4.38-5.83 [facility] Comment on above: Performed By: #### Claire HM7, IPB, MGO #### [facility] (DEFAULT) [address] [place] [address] RBC Distribution 14.6 % High 10.9-14.3 [facility] Comment on above: Performed By: #### C HM7, IPB, MGO #### [facility] (DEFAULT) [address] [place] [address] WBC (Bld) [#/Vol] 19.46 10*3/uL High 3.73-10.10 [facility] Comment on above: Performed By: #### C HM7, IPB, MGO #### [facility] (DEFAULT) [address] [place] [address] CHEM 7 (LYTES,BUN,CREA,GLUC) on 05-07-2024 Anion gap [Moles/Vol] 12 mmol/L 7 - 17 mmol/L [facility] Chloride [Moles/Vol] 101 mmol/L 98 - 10 8 mmol/L [facility] CO2 [Moles/Vol] 26 mmol/L 21 - 31 mmol/L [facility] Creatinine [Mass/Vol] 0.85 mg/dL 0.70 - 1.30 mg/dL [facility] eGFR, CKD-EPI, Male - PINF [facility] Comment on above: Reported eGFR is bas ed on the CKD-EPI 2020 equation using creatinine, age, and sex. Glucose [Mass/Vol] 91 mg/dL 70 - 99 mg/dL [facility] Interpretation and review of laboratory results Abnormal [facility] Osmolality Calc [Osmolality] 284 [facility] Potassium [Moles/Vol] 4.7 mmol/L 3.5 - 5.0 mmol/L [facility] Sodium [Moles/Vol] 134 mmol/L Low 135 - 145 mmol/L [facility] Urea nitrogen [Mass/Vol] 18 mg/dL 7 - 25 mg/dL [facility] Urea nitrogen/Creatinine [Mass ratio] 21 mg/mg [facility] Anion gap [Moles/Vol] 12 mmol/L Normal 7-[address] [facility] Comment on above: Performed By: #### G EN #### [facility] (DEFAULT) [address] [place] [address] Chloride [Moles/Vol] 101 mmol/L Normal 98-108 [facility] Comment on above: Performed By: #### G EN #### [facility] (DEFAULT) [address] [place] [address] CO2 [Moles/Vol] 26 mmol/L Normal 21-31 [facility] Comment on above: Performed By: #### G EN #### [facility] (DEFAULT) [address] [place] [address] Creatinine [Mass/Vol] 0.85 mg/dL Normal 0.70-1.[address] [facility] Comment on above: Performed By: #### G EN #### [facility] (DEFAULT) [address] [place] [address] eGFR, CKD-EPI, Male > Normal >=60 [facility] Comment on above: Result Comment: Repo rted eGFR is based on the CKD-EPI 2020 equation using creatinine, age, and sex. Performed By: #### G EN #### [facility] (DEFAULT) [address] [place] [address] Glucose [Mass/Vol] 91 mg/dL Normal 70-99 [facility] Comment on above: Performed By: #### G EN #### [facility] (DEFAULT) [address] [place] [address] Osmolality [Osmolality] 284 mosm/kg Normal 278-305 [facility] Comment on above: Performed By: #### G EN #### [facility] (DEFAULT) [address] [place] [address] Potassium [Moles/Vol] 4.7 mmol/L Normal 3.5-5.[address] [facility] Comment on above: Performed By: #### G EN #### [facility] (DEFAULT) [address] [place] [address] Sodium [Moles/Vol] 134 mmol/L Low 135-145 [facility] Comment on above: Performed By: #### G EN #### [facility] (DEFAULT) [address] [place] [address] Urea nitrogen [Mass/Vol] 18 mg/dL Normal 7-25 [facility] Comment on above: Performed By: #### G EN #### [facility] (DEFAULT) [address] [place] [address] Urea nitrogen/Creatinine [Mass ratio] 21 mg/mg Normal [facility] Comment on above: Performed By: #### G EN #### [facility] (DEFAULT) [address] [place] [address] GENERAL PROCEDUREon 05-07-20 24 Catherine Delatorre II, [...] obtained and sent to lab. [facility] No Panel Informationon 05-07 [facility] Radiology Study observation (narrative) [facility] CBC,PLATELETSon 05-06-2024 Erythrocyte distribution width (RBC) [Ratio] 14.6 % High 10.9 - 14.3 % [facility] Hematocrit (Bld) [Volume fraction] 28.5 % Low 39.6 - 48.8 % [facility] Hemoglobin (Bld) [Mass/Vol] 8.9 g/dL Low 13.4 - 16.8 g/dL [facility] Interpretation and review of laboratory results Abnormal [facility] MCH (RBC) [Entitic mass] 28.9 pg 26.1 - 33.3 pg [facility] MCHC (RBC) [Mass/Vol] 31.2 g/dL Low 31.9 - 36.5 g/dL [facility] MCV (RBC) [Entitic vol] 92.5 fL 79.0 - 94.5 fL [facility] Platelet mean volume (Bld) [Entitic vol] 8.4 fL Low 8.7 - 12.3 fL [facility] Platelets (Bld) [#/Vol] 477 10*3/uL High 146 - 337 K/uL [facility] RBC (Bld) [#/Vol] 3.08 10*6/uL Low [facility] WBC (Bld) [#/Vol] 19.40 10*3/uL High 3.73 - 10.10 K/uL [facility] Hematocrit (Bld) [Volume fraction] 28.5 % Low 39.6-48.8 [facility] Comment on above: Performed By: #### T YPEC #### [facility] (DEFAULT) [address] [place] [address] Hemoglobin (Bld) [Mass/Vol] 8.9 g/dL Low 13.4-16.8 [facility] Comment on above: Performed By: #### T YPEC #### [facility] (DEFAULT) [address] [address] MCV (RBC) [Entitic vol] 92.5 fL Normal 79.0-94.5 [facility] Comment on above: Performed By: #### T YPEC #### [facility] (DEFAULT) [address] [address] Mean Cell Hgb 28.9 pg Normal 26.1-33.3 [facility] Comment on above: Performed By: #### T YPEC #### [facility] (DEFAULT) [address] [address] Mean Cell Hgb Conc 31.2 g/dL Low 31.9-36.5 [facility] Comment on above: Performed By: #### T YPEC #### [facility] (DEFAULT) [address] [address] Platelet mean volume (Bld) [Entitic vol] 8.4 fL Low 8.7-12.3 [facility] Comment on above: Performed By: #### T YPEC #### [facility] (DEFAULT) [address] [address] Platelets (Bld) [#/Vol] 477 10*3/uL High 146-337 [facility] Comment on above: Performed By: #### T YPEC #### [facility] (DEFAULT) [address] [address] RBC (Bld) [#/Vol] 3.08 10*6/uL Low 4.38-5.83 [facility] Comment on above: Performed By: #### T YPEC #### [facility] (DEFAULT) [address] [address] RBC Distribution 14.6 % High 10.9-14.3 [facility] Comment on above: Performed By: #### T YPEC #### [facility] (DEFAULT) [address] [place] [address] WBC (Bld) [#/Vol] 19.40 10*3/uL High 3.73-10.10 [facility] Comment on above: Performed By: #### T YPEC #### [facility] (DEFAULT) [address] [place] [address] CHEM 7 (LYTES,BUN,CREA,GLUC) on 05-06-2024 Anion gap [Moles/Vol] 12 mmol/L 7 - 17 mmol/L [facility] Chloride [Moles/Vol] 102 mmol/L 98 - 10 8 mmol/L [facility] CO2 [Moles/Vol] 26 mmol/L 21 - 31 mmol/L [facility] Creatinine [Mass/Vol] 0.73 mg/dL 0.70 - 1.30 mg/dL [facility] eGFR, CKD-EPI, Male - PINF [facility] Comment on above: Reported eGFR is bas ed on the CKD-EPI 2020 equation using creatinine, age, and sex. Glucose [Mass/Vol] 98 mg/dL 70 - 99 mg/dL [facility] Osmolality Calc [Osmolality] 285 [facility] Potassium [Moles/Vol] 4.6 mmol/L 3.5 - 5.0 mmol/L [facility] Sodium [Moles/Vol] 135 mmol/L 135 - 145 mmol/L [facility] Urea nitrogen [Mass/Vol] 14 mg/dL 7 - 25 mg/dL [facility] Urea nitrogen/Creatinine [Mass ratio] 19 mg/mg [facility] Anion gap [Moles/Vol] 12 mmol/L Normal 7-17 [facility] Comment on above: Performed By: #### C ELEN STAPLES MGO #### [facility] (DEFAULT) [address] [place] [address] Chloride [Moles/Vol] 102 mmol/L Normal 98-108 [facility] Comment on above: Performed By: #### C HM7, IPB, MGO #### [facility] [facility] (DEFAULT) [address] [place] [address] CO2 [Moles/Vol] 26 mmol/L Normal 21-31 [facility] Comment on above: Performed By: #### Claire HMRosemary, IPB, MGO #### U [facility] (DEFAULT) [address] [place] [address] Creatinine [Mass/Vol] 0.73 mg/dL Normal 0.70-1.[address] [facility] Comment on above: Performed By: #### Claire STAPLES, IPB, MGO #### U [facility] (DEFAULT) [address] [place] [address] 85834 eGFR, CKD-EPI, Male > Normal >=60 [facility] Comment on above: Result Comment: Repo rted eGFR is based on the CKD-EPI 2020 equation using creatinine, age, and sex. Performed By: #### CASSIDY GAMBINOB, MGO #### U [facility] (DEFAULT) [address] [place] [address] Glucose [Mass/Vol] 98 mg/dL Normal 70-99 [facility] Comment on above: Performed By: #### Claire STAPLES, CASSIDYB, MGO #### U [facility] (DEFAULT) [address] [place] [address] Osmolality [Osmolality] 285 mosm/kg Normal 278-305 [facility] Comment on above: Performed By: #### Claire STAPLES, CASSIDYB, MGO #### U [facility] (DEFAULT) [address] [place] [address] Potassium [Moles/Vol] 4.6 mmol/L Normal 3.5-5.[address] [facility] Comment on above: Performed By: #### Claire HM7, IPB, MGO #### [facility] (DEFAULT) [address] [place] [address] Sodium [Moles/Vol] 135 mmol/L Normal 135-145 [facility] Comment on above: Performed By: #### C HM7, IPB, MGO #### [facility] (DEFAULT) [address] [place] [address] Urea nitrogen [Mass/Vol] 14 mg/dL Normal 7-25 [facility] Comment on above: Performed By: #### C HM7, IPB, MGO #### [facility] (DEFAULT) [address] [place] [address] Urea nitrogen/Creatinine [Mass ratio] 19 mg/mg Normal [facility] Comment on above: Performed By: #### C HM7, IPB, MGO #### [facility] (DEFAULT) [address] [place] [address] 90821 BACTERIAL CULTURE AND DIRECT SMEAR, LESION, TISSUE, DEVICEOrdered By: Laith Hernandez on 05-05-2024 Bacteria identified Cx Nom (Unsp spec) Growth [facility] Bacteria identified Cx Nom (Unsp spec) ESCHERICHIA COLI Abnormal [facility] Comment on above: Susceptibilities not routinely performed. Bacteria identified Cx Nom (Unsp spec) STREPTOCOCCUS ANGINOSUS GROUP Abnormal [facility] Comment on above: Susceptibilities not routinely performed. Refer to specimen [id number] on 04/29/24 for requested susceptibilities. Bacteria identified Cx Nom ( Unsp spec)Ordered By: Laith Hernandez on 05-05-2024 Interpretation and review of laboratory results Abnormal [facility] Microscopic observation Other stain Nom (Unsp spec) Neutrophils, Heavy [facility] Microscopic observation Other stain Nom (Unsp spec) Mononuclear cells present [facility] Microscopic observation Other stain Nom (Unsp spec) Red Blood Cells Present [facility] Microscopic observation Other stain Nom (Unsp spec) Negative [facility] Microscopic observation Other stain Nom (Unsp spec) Positive [facility] CBC,PLATELETSon 05-05-2024 Erythrocyte distribution width (RBC) [Ratio] 14.4 % High 10.9 - 14.3 % [facility] Hematocrit (Bld) [Volume fraction] 27.5 % Low 39.6 - 48.8 % [facility] Hemoglobin (Bld) [Mass/Vol] 8.8 g/dL Low 13.4 - 16.8 g/dL [facility] Interpretation and review of laboratory results Abnormal [facility] MCH (RBC) [Entitic mass] 29.3 pg 26.1 - 33.3 pg [facility] MCHC (RBC) [Mass/Vol] 32.0 g/dL 31.9 - 36.5 g/dL [facility] MCV (RBC) [Entitic vol] 91.7 fL 79.0 - 94.5 fL [facility] Platelet mean volume (Bld) [Entitic vol] 8.5 fL Low 8.7 - 12.3 fL [facility] Platelets (Bld) [#/Vol] 488 10*3/uL High 146 - 337 K/uL [facility] RBC (Bld) [#/Vol] 3.00 10*6/uL Low [facility] WBC (Bld) [#/Vol] 17.33 10*3/uL High 3.73 - 10.10 K/uL [facility] Hematocrit (Bld) [Volume fraction] 27.5 % Low 39.6-48.8 [facility] Comment on above: Performed By: #### G EN #### [facility] (DEFAULT) [address] [address] Hemoglobin (Bld) [Mass/Vol] 8.8 g/dL Low 13.4-16.8 [facility] Comment on above: Performed By: #### G EN #### [facility] (DEFAULT) [address] [address] MCV (RBC) [Entitic vol] 91.7 fL Normal 79.0-94.5 [facility] Comment on above: Performed By: #### G EN #### [facility] (DEFAULT) [address] [address] Mean Cell Hgb 29.3 pg Normal 26.1-33.3 [facility] Comment on above: Performed By: #### G EN #### [facility] (DEFAULT) [address] [address] Mean Cell Hgb Conc 32.0 g/dL Normal 31.9-36.5 [facility] Comment on above: Performed By: #### G EN #### U [facility] (DEFAULT) [address] [address] Platelet mean volume (Bld) [Entitic vol] 8.5 fL Low 8.7-12.3 [facility] Comment on above: Performed By: #### G EN #### [facility] (DEFAULT) [address] [address] Platelets (Bld) [#/Vol] 488 10*3/uL High 146-337 [facility] Comment on above: Performed By: #### G EN #### [facility] (DEFAULT) [address] [address] RBC (Bld) [#/Vol] 3.00 10*6/uL Low 4.38-5.83 [facility] Comment on above: Performed By: #### G EN #### [facility] (DEFAULT) [address] [address] RBC Distribution 14.4 % High 10.9-14.3 [facility] Comment on above: Performed By: #### G EN #### [facility] (DEFAULT) [address] [address] WBC (Bld) [#/Vol] 17.33 10*3/uL High 3.73-10.10 [facility] Comment on above: Performed By: #### G EN #### [facility] (DEFAULT) [address] [address] CHEM 7 (LYTES,BUN,CREA,GLUC) on 05-05-2024 Anion gap [Moles/Vol] 14 mmol/L 7 - 17 mmol/L [facility] Chloride [Moles/Vol] 102 mmol/L 98 - 10 8 [facility] CO2 [Moles/Vol] 24 mmol/L 21 - 31 mmol/L [facility] Creatinine [Mass/Vol] 0.73 mg/dL 0.70 - 1.30 mg/dL [facility] eGFR, CKD-EPI, Male - PINF [facility] Comment on above: Reported eGFR is bas ed on the CKD-EPI 2020 equation using creatinine, age, and sex. Glucose [Mass/Vol] 104 mg/dL High 70 - 99 mg/dL [facility] Interpretation and review of laboratory results Abnormal [facility] Osmolality Calc [Osmolality] 285 [facility] Potassium [Moles/Vol] 4.5 mmol/L 3.5 - 5.0 mmol/L [facility] Sodium [Moles/Vol] 135 mmol/L 135 - 145 mmol/L [facility] Urea nitrogen [Mass/Vol] 13 mg/dL 7 - 25 mg/dL [facility] Urea nitrogen/Creatinine [Mass ratio] 18 mg/mg [facility] Anion gap [Moles/Vol] 14 mmol/L Normal 7-[address] [facility] Comment on above: Performed By: #### Claire STAPLES, CASSIDYB, MGO #### [facility] (DEFAULT) [address] [place] [address] Chloride [Moles/Vol] 102 mmol/L Normal 98-108 [facility] Comment on above: Performed By: #### Claire STAPLES, IPB, MGO #### [facility] (DEFAULT) [address] [place] [address] CO2 [Moles/Vol] 24 mmol/L Normal 21-31 [facility] Comment on above: Performed By: #### Claire HMRosemary, IPB, MGO #### [facility] (DEFAULT) [address] [place] [address] Creatinine [Mass/Vol] 0.73 mg/dL Normal 0.70-1.[address] [facility] Comment on above: Performed By: #### C HM7, IPB, MGO #### U [facility] (DEFAULT) [address] [place] [address] eGFR, CKD-EPI, Male > Normal >=60 [facility] Comment on above: Result Comment: Repo rted eGFR is based on the CKD-EPI 2020 equation using creatinine, age, and sex. Performed By: #### C HM7, IPB, MGO #### [facility] (DEFAULT) [address] [place] [address] Glucose [Mass/Vol] 104 mg/dL High 70-99 [facility] Comment on above: Performed By: #### C HM7, IPB, MGO #### [facility] (DEFAULT) [address] [place] [address] Osmolality [Osmolality] 285 mosm/kg Normal 278-305 [facility] Comment on above: Performed By: #### C HM7, IPB, MGO #### U [facility] (DEFAULT) [address] [place] [address] Potassium [Moles/Vol] 4.5 mmol/L Normal 3.5-5.[address] [facility] Comment on above: Performed By: #### C HM7, IPB, MGO #### U [facility] (DEFAULT) [address] [place] [address] Sodium [Moles/Vol] 135 mmol/L Normal 135-145 [facility] Comment on above: Performed By: #### C HM7, IPB, MGO #### U [facility] (DEFAULT) [address] [place] [address] Urea nitrogen [Mass/Vol] 13 mg/dL Normal 7-25 [facility] Comment on above: Performed By: #### C HM7, IPB, MGO #### [facility] (DEFAULT) [address] [place] [address] Urea nitrogen/Creatinine [Mass ratio] 18 mg/mg Normal [facility] Comment on above: Performed By: #### C HM7, IPB, MGO #### [facility] (DEFAULT) [address] [place] [address] ABDOMEN/PELVIS WITH CONTR Yeison 05-05-2024 CT [...] improved from the hydroureteronephrosis seen previously. Normal [facility] CT Abdomen and Pelvis W cont [...] from the hydroureteronephrosis seen previously. [facility] Radiology Study observation (narrative) [facility] CT Abdomen and Pelvis W cont rast IVOrdered By: Flip León on 05-05-2024 [facility] Work Phone: MAGNESIUMon 05-05-2024 Magnesium [Mass/Vol] 2.2 mg/dL 1.6 - 2 .6 mg/dL [facility] Magnesium [Mass/Vol] 2.2 mg/dL Normal 1.6-2.6 [facility] Comment on above: Performed By: #### C HM7, IPB, MGO #### [facility] (DEFAULT) [address] [place] [address] No Panel Informationon 05-05 Interpretation and review of laboratory results Normal [facility] PHOSPHATE, INORGANICon 05-05 Phosphate [Mass/Vol] 2.9 mg/dL 2.2 - 4 .6 mg/dL [facility] Phosphorous 2.9 mg/dL Normal 2.2-4.6 [facility] Comment on above: Performed By: #### T YPEC #### [facility] (DEFAULT) [address] [place], [place] [id number] CBC,PLATELETSon 05-04-2024 Erythrocyte distribution width (RBC) [Ratio] 14.2 % 10.9 - 14.3 % [facility] Hematocrit (Bld) [Volume fraction] 28.4 % Low 39.6 - 48.8 % [facility] Hemoglobin (Bld) [Mass/Vol] 9.1 g/dL Low 13.4 - 16.8 g/dL [facility] Interpretation and review of laboratory results Abnormal [facility] MCH (RBC) [Entitic mass] 29.5 pg 26.1 - 33.3 pg [facility] MCHC (RBC) [Mass/Vol] 32.0 g/dL 31.9 - 36.5 g/dL [facility] MCV (RBC) [Entitic vol] 92.2 fL 79.0 - 94.5 fL [facility] Platelet mean volume (Bld) [Entitic vol] 8.7 fL 8.7 - 12.3 fL [facility] Platelets (Bld) [#/Vol] 487 10*3/uL High 146 - 337 K/uL [facility] RBC (Bld) [#/Vol] 3.08 10*6/uL Low [facility] WBC (Bld) [#/Vol] 13.02 10*3/uL High 3.73 - 10.10 K/uL [facility] Hematocrit (Bld) [Volume fraction] 28.4 % Low 39.6-48.8 [facility] Comment on above: Performed By: #### ELEN GAMBINO MGO #### [facility] (DEFAULT) [address] [address] Hemoglobin (Bld) [Mass/Vol] 9.1 g/dL Low 13.4-16.8 [facility] Comment on above: Performed By: #### ELEN GAMBINO MGAlan #### [facility] (DEFAULT) [address] [address] MCV (RBC) [Entitic vol] 92.2 fL Normal 79.0-94.5 [facility] Comment on above: Performed By: #### ELEN GAMBINO, MGAlan #### [facility] (DEFAULT) [address] [address] Mean Cell Hgb 29.5 pg Normal 26.1-33.3 [facility] Comment on above: Performed By: #### C HM7, IPB, MGO #### U [facility] (DEFAULT) [address] [place] [address] Mean Cell Hgb Conc 32.0 g/dL Normal 31.9-36.5 [facility] Comment on above: Performed By: #### C HM7, IPB, MGO #### U [facility] (DEFAULT) [address] [place] [address] Platelet mean volume (Bld) [Entitic vol] 8.7 fL Normal 8.7-12.3 [facility] Comment on above: Performed By: #### C HM7, IPB, MGO #### U [facility] (DEFAULT) [address] [place] [address] Platelets (Bld) [#/Vol] 487 10*3/uL High 146-337 [facility] Comment on above: Performed By: #### Claire HM7, IPB, MGO #### [facility] (DEFAULT) [address] [place] [address] RBC (Bld) [#/Vol] 3.08 10*6/uL Low 4.38-5.83 [facility] Comment on above: Performed By: #### Claire HM7, IPB, MGO #### U [facility] (DEFAULT) [address] [place] [address] RBC Distribution 14.2 % Normal 10.9-14.3 [facility] Comment on above: Performed By: #### C HM7, IPB, MGO #### [facility] (DEFAULT) [address] [place] [address] WBC (Bld) [#/Vol] 13.02 10*3/uL High 3.73-10.10 [facility] Comment on above: Performed By: #### C HM7, IPB, MGO #### U [facility] (DEFAULT) [address] [place] [address] CHEM 7 (LYTES,BUN,CREA,GLUC) on 05-04-2024 Anion gap [Moles/Vol] 13 mmol/L 7 - 17 mmol/L [facility] Chloride [Moles/Vol] 103 mmol/L 98 - 10 8 mmol/L [facility] CO2 [Moles/Vol] 26 mmol/L 21 - 31 mmol/L [facility] Creatinine [Mass/Vol] 0.66 mg/dL Low 0.70 - 1.30 mg/dL [facility] eGFR, CKD-EPI, Male - PINF [facility] Comment on above: Reported eGFR is bas ed on the CKD-EPI 2020 equation using creatinine, age, and sex. Glucose [Mass/Vol] 100 mg/dL High 70 - 99 mg/dL [facility] Interpretation and review of laboratory results Abnormal [facility] Osmolality Calc [Osmolality] 287 [facility] Potassium [Moles/Vol] 4.5 mmol/L 3.5 - 5.0 mmol/L [facility] Sodium [Moles/Vol] 137 mmol/L 135 - 145 mmol/L [facility] Urea nitrogen [Mass/Vol] 9 mg/dL 7 - 25 mg/dL [facility] Urea nitrogen/Creatinine [Mass ratio] 14 mg/mg [facility] Anion gap [Moles/Vol] 13 mmol/L Normal 7-17 [facility] Comment on above: Performed By: #### G EN #### [facility] (DEFAULT) [address] [place] [address] Chloride [Moles/Vol] 103 mmol/L Normal 98-108 [facility] Comment on above: Performed By: #### G EN #### [facility] (DEFAULT) [address] [place] [address] CO2 [Moles/Vol] 26 mmol/L Normal 21-31 [facility] Comment on above: Performed By: #### G EN #### [facility] (DEFAULT) [address] [place] [address] Creatinine [Mass/Vol] 0.66 mg/dL Low 0.70-1.[address] [facility] Comment on above: Performed By: #### G EN #### [facility] (DEFAULT) [address] [place] [address] eGFR, CKD-EPI, Male > Normal >=60 [facility] Comment on above: Result Comment: Repo rted eGFR is based on the CKD-EPI 2020 equation using creatinine, age, and sex. Performed By: #### G EN #### U [facility] (DEFAULT) [address] [place] [address] Glucose [Mass/Vol] 100 mg/dL High 70-99 [facility] Comment on above: Performed By: #### G EN #### U [facility] (DEFAULT) [address] [place] [address] Osmolality [Osmolality] 287 mosm/kg Normal 278-305 [facility] Comment on above: Performed By: #### G EN #### [facility] (DEFAULT) [address] [place] [address] Potassium [Moles/Vol] 4.5 mmol/L Normal 3.5-5.[address] [facility] Comment on above: Performed By: #### G EN #### [facility] (DEFAULT) [address] [place] [address] Sodium [Moles/Vol] 137 mmol/L Normal 135-145 [facility] Comment on above: Performed By: #### G EN #### [facility] (DEFAULT) [address] [place] [address] Urea nitrogen [Mass/Vol] 9 mg/dL Normal 7-25 [facility] Comment on above: Performed By: #### G EN #### [facility] (DEFAULT) [address] [place] [address] Urea nitrogen/Creatinine [Mass ratio] 14 mg/mg Normal [facility] Comment on above: Performed By: #### G EN #### [facility] (DEFAULT) [address] [place] [address] MAGNESIUMon 05-04-2024 Magnesium [Mass/Vol] 2.1 mg/dL 1.6 - 2 .6 mg/dL [facility] Magnesium [Mass/Vol] 2.1 mg/dL Normal 1.6-2.6 [facility] Comment on above: Performed By: #### U [id number] #### [facility] (DEFAULT) [address] [place] [address] No Panel Informationon 05-04 Interpretation and review of laboratory results Normal [facility] PHOSPHATE, INORGANICon 05-04 Phosphate [Mass/Vol] 2.5 mg/dL 2.2 - 4 .6 mg/dL [facility] Phosphorous 2.5 mg/dL Normal 2.2-4.6 [facility] Comment on above: Performed By: #### U [id number] #### [facility] (DEFAULT) [address] [place] [address] CBC,PLATELETSon 05-03-2024 Erythrocyte distribution width (RBC) [Ratio] 13.8 % 10.9 - 14.3 % [facility] Hematocrit (Bld) [Volume fraction] 28.3 % Low 39.6 - 48.8 % [facility] Hemoglobin (Bld) [Mass/Vol] 8.9 g/dL Low 13.4 - 16.8 g/dL [facility] Interpretation and review of laboratory results Abnormal [facility] MCH (RBC) [Entitic mass] 28.6 pg 26.1 - 33.3 pg [facility] MCHC (RBC) [Mass/Vol] 31.4 g/dL Low 31.9 - 36.5 g/dL [facility] MCV (RBC) [Entitic vol] 91.0 fL 79.0 - 94.5 fL [facility] Platelet mean volume (Bld) [Entitic vol] 8.8 fL 8.7 - 12.3 fL [facility] Platelets (Bld) [#/Vol] 448 10*3/uL High 146 - 337 K/uL [facility] RBC (Bld) [#/Vol] 3.11 10*6/uL Low [facility] WBC (Bld) [#/Vol] 16.82 10*3/uL High 3.73 - 10.10 K/uL [facility] Hematocrit (Bld) [Volume fraction] 28.3 % Low 39.6-48.8 [facility] Comment on above: Performed By: #### H EMOGC ####[facility] (DEFAULT)[address] [place] [address] Hemoglobin (Bld) [Mass/Vol] 8.9 g/dL Low 13.4-16.8 [facility] Comment on above: Performed By: #### H EMOGC ####[facility] (DEFAULT)[address] [place] [address] MCV (RBC) [Entitic vol] 91.0 fL Normal 79.0-94.5 [facility] Comment on above: Performed By: #### H EMOGC ####[facility] (DEFAULT)[address] [place] [address] Mean Cell Hgb 28.6 pg Normal 26.1-33.3 [facility] Comment on above: Performed By: #### H EMOGC ####[facility] (DEFAULT)[address] [place] [address] Mean Cell Hgb Conc 31.4 g/dL Low 31.9-36.5 [facility] Comment on above: Performed By: #### H EMOGC ####[facility] (DEFAULT)[address] [place] [address] Platelet mean volume (Bld) [Entitic vol] 8.8 fL Normal 8.7-12.3 [facility] Comment on above: Performed By: #### H EMOGC ####[facility] (DEFAULT)[address] [place] [address] Platelets (Bld) [#/Vol] 448 10*3/uL High 146-337 [facility] Comment on above: Performed By: #### [facility] ####[facility] (DEFAULT)[address] [place] [address] RBC (Bld) [#/Vol] 3.11 10*6/uL Low 4.38-5.83 [facility] Comment on above: Performed By: #### [facility] ####[facility] (DEFAULT)[address] [place] [address] RBC Distribution 13.8 % Normal 10.9-14.3 [facility] Comment on above: Performed By: #### H [facility] ####[facility] (DEFAULT)[address] [place] [address] WBC (Bld) [#/Vol] 16.82 10*3/uL High 3.73-10.10 [facility] Comment on above: Performed By: #### [facility] ####[facility] (DEFAULT)[address] [place] [address] CHEM 7 (LYTES,BUN,CREA,GLUC) on 05-03-2024 Anion gap [Moles/Vol] 12 mmol/L 7 - 17 mmol/L [facility] Chloride [Moles/Vol] 103 mmol/L 98 - 10 8 mmol/L [facility] CO2 [Moles/Vol] 26 mmol/L 21 - 31 mmol/L [facility] Creatinine [Mass/Vol] 0.68 mg/dL Low 0.70 - 1.30 mg/dL [facility] eGFR, CKD-EPI, Male - PINF [facility] Comment on above: Reported eGFR is bas ed on the CKD-EPI 2020 equation using creatinine, age, and sex. Glucose [Mass/Vol] 102 mg/dL High 70 - 99 mg/dL [facility] Interpretation and review of laboratory results Abnormal [facility] Osmolality Calc [Osmolality] 286 [facility] Potassium [Moles/Vol] 4.2 mmol/L 3.5 - 5.0 mmol/L [facility] Sodium [Moles/Vol] 137 mmol/L 135 - 145 mmol/L [facility] Urea nitrogen [Mass/Vol] 7 mg/dL 7 - 25 mg/dL [facility] Urea nitrogen/Creatinine [Mass ratio] 10 mg/mg [facility] Anion gap [Moles/Vol] 12 mmol/L Normal 7-[address] [facility] Comment on above: Performed By: #### ELEN GAMBINO, MGO #### [facility] (DEFAULT) [address] [place] [address] Chloride [Moles/Vol] 103 mmol/L Normal 98-108 [facility] Comment on above: Performed By: #### Claire STAPLES, CASSIDYB, MGO #### [facility] (DEFAULT) [address] [place] [address]13 CO2 [Moles/Vol] 26 mmol/L Normal 21-31 [facility] Comment on above: Performed By: #### Claire STAPLES, IPB, MGO #### [facility] (DEFAULT) [address] [place] [address] 72490 Creatinine [Mass/Vol] 0.68 mg/dL Low 0.70-1.[address] [facility] Comment on above: Performed By: #### Claire STAPLES, IPB, MGO #### [facility] (DEFAULT) [address] [place] [address] 41770 eGFR, CKD-EPI, Male > Normal >=60 [facility] Comment on above: Result Comment: Repo rted eGFR is based on the CKD-EPI 2020 equation using creatinine, age, and sex. Performed By: #### Claire STAPLES, IPB, MGO #### [facility] (DEFAULT) [address] [place] [address] 90861 Glucose [Mass/Vol] 102 mg/dL High 70-99 [facility] Comment on above: Performed By: #### Claire HM7, IPB, MGO #### U [facility] (DEFAULT) [address] [place] [address]247 Osmolality [Osmolality] 286 mosm/kg Normal 278-305 [facility] Comment on above: Performed By: #### Claire HM7, IPB, MGO #### U [facility] (DEFAULT) [address] [place] [address] 21805 Potassium [Moles/Vol] 4.2 mmol/L Normal 3.5-5.[address] [facility] Comment on above: Performed By: #### Claire HM7, IPB, MGO #### U [facility] (DEFAULT) [address] [place] [address] 45338 Sodium [Moles/Vol] 137 mmol/L Normal 135-145 [facility] Comment on above: Performed By: #### Claire HM7, IPB, MGO #### U [facility] (DEFAULT) [address] [place] [address] 61277 Urea nitrogen [Mass/Vol] 7 mg/dL Normal 7-25 [facility] Comment on above: Performed By: #### Claire HM7, IPB, MGO #### U [facility] (DEFAULT) [address] [place] [address] 24509 Urea nitrogen/Creatinine [Mass ratio] 10 mg/mg Normal [facility] Comment on above: Performed By: #### Claire HM7, IPB, MGO #### U [facility] (DEFAULT) [address] [place] [address] 92465 MAGNESIUMon 05-03-2024 Magnesium [Mass/Vol] 2.0 mg/dL 1.6 - 2 .6 mg/dL [facility] Magnesium [Mass/Vol] 2.0 mg/dL Normal 1.6-2.6 [facility] Comment on above: Performed By: #### Claire HM7, IPB, MGO #### [facility] (DEFAULT) [address] [place] [address] No Panel Informationon 05-03 Interpretation and review of laboratory results Normal [facility] PHOSPHATE, INORGANICon 05-03 Phosphate [Mass/Vol] 2.9 mg/dL 2.2 - 4 .6 mg/dL [facility] Phosphorous 2.9 mg/dL Normal 2.2-4.6 [facility] Comment on above: Performed By: #### C HM7, IPB, MGO #### [facility] (DEFAULT) [address] [place] [address] CBC,PLATELETSon 05-02-2024 Erythrocyte distribution width (RBC) [Ratio] 13.5 % 10.9 - 14.3 % [facility] Hematocrit (Bld) [Volume fraction] 27.6 % Low 39.6 - 48.8 % [facility] Hemoglobin (Bld) [Mass/Vol] 8.9 g/dL Low 13.4 - 16.8 g/dL [facility] Interpretation and review of laboratory results Abnormal [facility] MCH (RBC) [Entitic mass] 29.2 pg 26.1 - 33.3 pg [facility] MCHC (RBC) [Mass/Vol] 32.2 g/dL 31.9 - 36.5 g/dL [facility] MCV (RBC) [Entitic vol] 90.5 fL 79.0 - 94.5 fL [facility] Platelet mean volume (Bld) [Entitic vol] 8.8 fL 8.7 - 12.3 fL [facility] Platelets (Bld) [#/Vol] 393 10*3/uL High 146 - 337 K/uL [facility] RBC (Bld) [#/Vol] 3.05 10*6/uL Low [facility] WBC (Bld) [#/Vol] 14.26 10*3/uL High 3.73 - 10.10 K/uL [facility] Hematocrit (Bld) [Volume fraction] 27.6 % Low 39.6-48.8 [facility] Comment on above: Performed By: #### S URGP #### [facility] (DEFAULT) [address] [address] Hemoglobin (Bld) [Mass/Vol] 8.9 g/dL Low 13.4-16.8 [facility] Comment on above: Performed By: #### S URGP #### U [facility] (DEFAULT) [address] [address] MCV (RBC) [Entitic vol] 90.5 fL Normal 79.0-94.5 [facility] Comment on above: Performed By: #### S URGP #### [facility] (DEFAULT) [address] [address] Mean Cell Hgb 29.2 pg Normal 26.1-33.3 [facility] Comment on above: Performed By: #### S URGP #### [facility] (DEFAULT) [address] [address] Mean Cell Hgb Conc 32.2 g/dL Normal 31.9-36.5 [facility] Comment on above: Performed By: #### S URGP #### [facility] (DEFAULT) [address] [address] Platelet mean volume (Bld) [Entitic vol] 8.8 fL Normal 8.7-12.3 [facility] Comment on above: Performed By: #### S URGP #### U [facility] (DEFAULT) [address] [address] Platelets (Bld) [#/Vol] 393 10*3/uL High 146-337 [facility] Comment on above: Performed By: #### S URGP #### U [facility] (DEFAULT) [address] [address] RBC (Bld) [#/Vol] 3.05 10*6/uL Low 4.38-5.83 [facility] Comment on above: Performed By: #### S URGP #### [facility] (DEFAULT) [address] [place] [address] RBC Distribution 13.5 % Normal 10.9-14.3 [facility] Comment on above: Performed By: #### S URGP #### [facility] (DEFAULT) [address] [place] [address] WBC (Bld) [#/Vol] 14.26 10*3/uL High 3.73-10.10 [facility] Comment on above: Performed By: #### S URGP #### [facility] (DEFAULT) [address] [place] [address] CHEM 7 (LYTES,BUN,CREA,GLUC) on 05-02-2024 Anion gap [Moles/Vol] 12 mmol/L 7 - 17 mmol/L [facility] Chloride [Moles/Vol] 104 mmol/L 98 - 10 8 mmol/L [facility] CO2 [Moles/Vol] 28 mmol/L 21 - 31 mmol/L [facility] Creatinine [Mass/Vol] 0.69 mg/dL Low 0.70 - 1.30 mg/dL [facility] eGFR, CKD-EPI, Male - PINF [facility] Comment on above: Reported eGFR is bas ed on the CKD-EPI 2020 equation using creatinine, age, and sex. Glucose [Mass/Vol] 101 mg/dL High 70 - 99 mg/dL [facility] Interpretation and review of laboratory results Abnormal [facility] Osmolality Calc [Osmolality] 291 [facility] Potassium [Moles/Vol] 4.1 mmol/L 3.5 - 5.0 mmol/L [facility] Sodium [Moles/Vol] 140 mmol/L 135 - 145 mmol/L [facility] Urea nitrogen [Mass/Vol] 6 mg/dL Low 7 - 25 mg/dL [facility] Urea nitrogen/Creatinine [Mass ratio] 9 mg/mg [facility] Anion gap [Moles/Vol] 12 mmol/L Normal 7-[address] [facility] Comment on above: Performed By: #### G EN #### U [facility] (DEFAULT) [address] [place] [address]65 Chloride [Moles/Vol] 104 mmol/L Normal 98-108 [facility] Comment on above: Performed By: #### G EN #### U [facility] (DEFAULT) [address] [place] [address]243 CO2 [Moles/Vol] 28 mmol/L Normal 21-31 [facility] Comment on above: Performed By: #### G EN #### U [facility] (DEFAULT) [address] [place] [address] 45047 Creatinine [Mass/Vol] 0.69 mg/dL Low 0.70-1.[address] [facility] Comment on above: Performed By: #### G EN #### U [facility] (DEFAULT) [address] [place] [address] 32827 eGFR, CKD-EPI, Male > Normal >=60 [facility] Comment on above: Result Comment: Repo rted eGFR is based on the CKD-EPI 2020 equation using creatinine, age, and sex. Performed By: #### G EN #### U [facility] (DEFAULT) [address] [place] [address] 24996 Glucose [Mass/Vol] 101 mg/dL High 70-99 [facility] Comment on above: Performed By: #### G EN #### U [facility] (DEFAULT) [address] [place] [address]165 Osmolality [Osmolality] 291 mosm/kg Normal 278-305 [facility] Comment on above: Performed By: #### G EN #### U [facility] (DEFAULT) [address] [place] [address] 60040 Potassium [Moles/Vol] 4.1 mmol/L Normal 3.5-5.[address] [facility] Comment on above: Performed By: #### G EN #### [facility] (DEFAULT) [address] [place] [address] Sodium [Moles/Vol] 140 mmol/L Normal 135-145 [facility] Comment on above: Performed By: #### G EN #### [facility] (DEFAULT) [address] [place] [address] Urea nitrogen [Mass/Vol] 6 mg/dL Low 7-25 [facility] Comment on above: Performed By: #### G EN #### [facility] (DEFAULT) [address] [place] [address] Urea nitrogen/Creatinine [Mass ratio] 9 mg/mg Normal [facility] Comment on above: Performed By: #### G EN #### [facility] (DEFAULT) [address] [place] [address] 98[address] Anion gap [Moles/Vol] 12 mmol/L 7 - 17 mmol/L [facility] Chloride [Moles/Vol] 103 mmol/L 98 - 10 8 mmol/L [facility] CO2 [Moles/Vol] 28 mmol/L 21 - 31 mmol/L [facility] Creatinine [Mass/Vol] 0.75 mg/dL 0.70 - 1.30 mg/dL [facility] eGFR, CKD-EPI, Male - PINF [facility] Comment on above: Reported eGFR is bas ed on the CKD-EPI 2020 equation using creatinine, age, and sex. Glucose [Mass/Vol] 107 mg/dL High 70 - 99 mg/dL [facility] Interpretation and review of laboratory results Abnormal [facility] Osmolality Calc [Osmolality] 290 [facility] Potassium [Moles/Vol] 4.0 mmol/L 3.5 - 5.0 mmol/L [facility] Sodium [Moles/Vol] 139 mmol/L 135 - 145 mmol/L [facility] Urea nitrogen [Mass/Vol] 8 mg/dL 7 - 25 mg/dL [facility] Urea nitrogen/Creatinine [Mass ratio] 11 mg/mg [facility] Anion gap [Moles/Vol] 12 mmol/L Normal 7-[address] [facility] Comment on above: Performed By: #### S URGP #### U [facility] (DEFAULT) [address] [place] [address] 56995 Chloride [Moles/Vol] 103 mmol/L Normal 98-108 [facility] Comment on above: Performed By: #### S URGP #### [facility] (DEFAULT) [address] [place] [address] 11518 CO2 [Moles/Vol] 28 mmol/L Normal 21-31 [facility] Comment on above: Performed By: #### S URGP #### U [facility] (DEFAULT) [address] [place] [address]607 Creatinine [Mass/Vol] 0.75 mg/dL Normal 0.70-1.[address] [facility] Comment on above: Performed By: #### S URGP #### U [facility] (DEFAULT) [address] [place] [address] 30930 eGFR, CKD-EPI, Male > Normal >=60 [facility] Comment on above: Result Comment: Repo rted eGFR is based on the CKD-EPI 2020 equation using creatinine, age, and sex. Performed By: #### S URGP #### U [facility] (DEFAULT) [address] [place] [address] 077[address] Glucose [Mass/Vol] 107 mg/dL High 70-99 [facility] Comment on above: Performed By: #### S URGP #### U [facility] (DEFAULT) [address] [place] [address] 31329 Osmolality [Osmolality] 290 mosm/kg Normal 278-305 [facility] Comment on above: Performed By: #### S URGP #### U [facility] (DEFAULT) [address] [place] [address] 22970 Potassium [Moles/Vol] 4.0 mmol/L Normal 3.5-5.[address] [facility] Comment on above: Performed By: #### S URGP #### [facility] (DEFAULT) [address] [place] [address] Sodium [Moles/Vol] 139 mmol/L Normal 135-145 [facility] Comment on above: Performed By: #### S URGP #### [facility] (DEFAULT) [address] [place] [address] Urea nitrogen [Mass/Vol] 8 mg/dL Normal 7-25 [facility] Comment on above: Performed By: #### S URGP #### [facility] (DEFAULT) [address] [place] [address] Urea nitrogen/Creatinine [Mass ratio] 11 mg/mg Normal [facility] Comment on above: Performed By: #### S URGP #### [facility] (DEFAULT) [address] [place] [address] 97368 MAGNESIUMon 05-02-2024 Magnesium [Mass/Vol] 1.8 mg/dL 1.6 - 2 .6 mg/dL [facility] Magnesium [Mass/Vol] 1.8 mg/dL Normal 1.6-2.6 [facility] Comment on above: Performed By: #### S URGP #### [facility] (DEFAULT) [address] [place] [address] No Panel Informationon 05-02 Interpretation and review of laboratory results Normal [facility] PHOSPHATE, INORGANICon 05-02 Phosphate [Mass/Vol] 2.5 mg/dL 2.2 - 4 .6 mg/dL [facility] Phosphorous 2.5 mg/dL Normal 2.2-4.6 [facility] Comment on above: Performed By: #### S URGP #### [facility] (DEFAULT) [address] [place] [address] CBC,PLATELETSon 05-01-2024 Erythrocyte distribution width (RBC) [Ratio] 13.7 % 10.9 - 14.3 % [facility] Hematocrit (Bld) [Volume fraction] 28.3 % Low 39.6 - 48.8 % [facility] Hemoglobin (Bld) [Mass/Vol] 9.1 g/dL Low 13.4 - 16.8 g/dL [facility] Interpretation and review of laboratory results Abnormal [facility] MCH (RBC) [Entitic mass] 29.2 pg 26.1 - 33.3 pg [facility] MCHC (RBC) [Mass/Vol] 32.2 g/dL 31.9 - 36.5 g/dL [facility] MCV (RBC) [Entitic vol] 90.7 fL 79.0 - 94.5 fL [facility] Platelet mean volume (Bld) [Entitic vol] 8.7 fL 8.7 - 12.3 fL [facility] Platelets (Bld) [#/Vol] 366 10*3/uL High 146 - 337 K/uL [facility] RBC (Bld) [#/Vol] 3.12 10*6/uL Low [facility] WBC (Bld) [#/Vol] 15.88 10*3/uL High 3.73 - 10.10 K/uL [facility] Hematocrit (Bld) [Volume fraction] 28.3 % Low 39.6-48.8 [facility] Comment on above: Performed By: #### U [id number] #### [facility] (DEFAULT) [address] [address] Hemoglobin (Bld) [Mass/Vol] 9.1 g/dL Low 13.4-16.8 [facility] Comment on above: Performed By: #### U [id number] #### [facility] (DEFAULT) [address] [address] MCV (RBC) [Entitic vol] 90.7 fL Normal 79.0-94.5 [facility] Comment on above: Performed By: #### U [id number] #### [facility] (DEFAULT) [address] [place] [address] 15260 Mean Cell Hgb 29.2 pg Normal 26.1-33.3 [facility] Comment on above: Performed By: #### U [id number] #### [facility] (DEFAULT) [address] [place] [address] 22008 Mean Cell Hgb Conc 32.2 g/dL Normal 31.9-36.5 [facility] Comment on above: Performed By: #### U [id number] #### U [facility] (DEFAULT) [address] [place] [address] Platelet mean volume (Bld) [Entitic vol] 8.7 fL Normal 8.7-12.3 [facility] Comment on above: Performed By: #### U [id number] #### U [facility] (DEFAULT) [address] [place] [address] Platelets (Bld) [#/Vol] 366 10*3/uL High 146-337 [facility] Comment on above: Performed By: #### U [id number] #### [facility] (DEFAULT) [address] [place] [address]85 RBC (Bld) [#/Vol] 3.12 10*6/uL Low 4.38-5.83 [facility] Comment on above: Performed By: #### U [id number] #### [facility] (DEFAULT) [address] [place] [address] 89630 RBC Distribution 13.7 % Normal 10.9-14.3 [facility] Comment on above: Performed By: #### U [id number] #### U [facility] (DEFAULT) [address] [place] [address] 28657 WBC (Bld) [#/Vol] 15.88 10*3/uL High 3.73-10.10 [facility] Comment on above: Performed By: #### U [id number] #### U [facility] (DEFAULT) [address] [place] [address] CHEM 7 (LYTES,BUN,CREA,GLUC) on 05-01-2024 Anion gap [Moles/Vol] 12 mmol/L 7 - 17 mmol/L [facility] Chloride [Moles/Vol] 102 mmol/L 98 - 10 8 mmol/L [facility] CO2 [Moles/Vol] 28 mmol/L 21 - 31 mmol/L [facility] Creatinine [Mass/Vol] 0.78 mg/dL 0.70 - 1.30 mg/dL [facility] eGFR, CKD-EPI, Male - PINF [facility] Comment on above: Reported eGFR is bas ed on the CKD-EPI 2020 equation using creatinine, age, and sex. Glucose [Mass/Vol] 109 mg/dL High 70 - 99 mg/dL [facility] Interpretation and review of laboratory results Abnormal [facility] Osmolality Calc [Osmolality] 288 [facility] Potassium [Moles/Vol] 4.0 mmol/L 3.5 - 5.0 mmol/L [facility] Sodium [Moles/Vol] 138 mmol/L 135 - 145 mmol/L [facility] Urea nitrogen [Mass/Vol] 8 mg/dL 7 - 25 mg/dL [facility] Urea nitrogen/Creatinine [Mass ratio] 10 mg/mg [facility] Anion gap [Moles/Vol] 12 mmol/L Normal 7-17 [facility] Comment on above: Performed By: #### ELEN GAMBINO MGAlan #### [facility] (DEFAULT) [address] [place] [address] Chloride [Moles/Vol] 102 mmol/L Normal 98-108 [facility] Comment on above: Performed By: #### ELEN GAMBINO MGAlan #### [facility] (DEFAULT) [address] [place] [address] CO2 [Moles/Vol] 28 mmol/L Normal 21-31 [facility] Comment on above: Performed By: #### ELEN GAMBINO MGAlan #### [facility] (DEFAULT) [address] [place] [address] Creatinine [Mass/Vol] 0.78 mg/dL Normal 0.70-1.[address] [facility] Comment on above: Performed By: #### Claire STAPLES IPB, MGO #### U [facility] (DEFAULT) [address] [place] [address] 90068 eGFR, CKD-EPI, Male > Normal >=60 [facility] Comment on above: Result Comment: Repo rted eGFR is based on the CKD-EPI 2020 equation using creatinine, age, and sex. Performed By: #### Claire STAPLES, IPB, MGO #### [facility] (DEFAULT) [address] [place] [address] Glucose [Mass/Vol] 109 mg/dL High 70-99 [facility] Comment on above: Performed By: #### Claire STAPLES, IPB, MGO #### [facility] (DEFAULT) [address] [place] [address] 21747 Osmolality [Osmolality] 288 mosm/kg Normal 278-305 [facility] Comment on above: Performed By: #### Claire STAPLES, CASSIDYB, MGO #### [facility] (DEFAULT) [address] [place] [address] Potassium [Moles/Vol] 4.0 mmol/L Normal 3.5-5.[address] [facility] Comment on above: Performed By: #### Claire HMRosemary, IPB, MGO #### [facility] (DEFAULT) [address] [place] [address] Sodium [Moles/Vol] 138 mmol/L Normal 135-145 [facility] Comment on above: Performed By: #### Claire STAPLES, IPB, MGO #### [facility] (DEFAULT) [address] [place] [address] Urea nitrogen [Mass/Vol] 8 mg/dL Normal 7-25 [facility] Comment on above: Performed By: #### ELEN GAMBINO MGO #### U [facility] (DEFAULT) [address] [place] [address] Urea nitrogen/Creatinine [Mass ratio] 10 mg/mg Normal [facility] Comment on above: Performed By: #### ELEN GAMBINO MGO #### [facility] (DEFAULT) [address] [place] [address] Anion gap [Moles/Vol] 11 mmol/L 7 - 17 mmol/L [facility] Chloride [Moles/Vol] 102 mmol/L 98 - 10 8 [facility] CO2 [Moles/Vol] 28 mmol/L 21 - 31 mmol/L [facility] Creatinine [Mass/Vol] 0.65 mg/dL Low 0.70 - 1.30 mg/dL [facility] eGFR, CKD-EPI, Male - PINF [facility] Comment on above: Reported eGFR is bas ed on the CKD-EPI 2020 equation using creatinine, age, and sex. Glucose [Mass/Vol] 129 mg/dL High 70 - 99 mg/dL [facility] Interpretation and review of laboratory results Abnormal [facility] Osmolality Calc [Osmolality] 286 [facility] Potassium [Moles/Vol] 4.0 mmol/L 3.5 - 5.0 mmol/L [facility] Sodium [Moles/Vol] 137 mmol/L 135 - 145 mmol/L [facility] Urea nitrogen [Mass/Vol] 5 mg/dL Low 7 - 25 mg/dL [facility] Urea nitrogen/Creatinine [Mass ratio] 8 mg/mg [facility] Anion gap [Moles/Vol] 11 mmol/L Normal 7-17 [facility] Comment on above: Performed By: #### ELEN GAMBINO MGAlan #### U [facility] (DEFAULT) [address] [place] [address] Chloride [Moles/Vol] 102 mmol/L Normal 98-108 [facility] Comment on above: Performed By: #### C HM7, IPB, MGO #### U [facility] (DEFAULT) [address] [place] [address] CO2 [Moles/Vol] 28 mmol/L Normal 21-31 [facility] Comment on above: Performed By: #### Claire HM7, IPB, MGO #### U [facility] (DEFAULT) [address] [place] [address] Creatinine [Mass/Vol] 0.65 mg/dL Low 0.70-1.[address] [facility] Comment on above: Performed By: #### Claire HMRosemary, IPB, MGO #### U [facility] (DEFAULT) [address] [place] [address] eGFR, CKD-EPI, Male > Normal >=60 [facility] Comment on above: Result Comment: Repo rted eGFR is based on the CKD-EPI 2020 equation using creatinine, age, and sex. Performed By: #### C JHOAN, IPB, MGO #### U [facility] (DEFAULT) [address] [place] [address] Glucose [Mass/Vol] 129 mg/dL High 70-99 [facility] Comment on above: Performed By: #### Claire HMRosemary, IPB, MGO #### U [facility] (DEFAULT) [address] [place] [address] Osmolality [Osmolality] 286 mosm/kg Normal 278-305 [facility] Comment on above: Performed By: #### Claire HM7, IPB, MGO #### U [facility] (DEFAULT) [address] [place] [address] Potassium [Moles/Vol] 4.0 mmol/L Normal 3.5-5.[address] [facility] Comment on above: Performed By: #### Claire HM7, IPB, MGO #### U [facility] (DEFAULT) [address] [place] [address] Sodium [Moles/Vol] 137 mmol/L Normal 135-145 [facility] Comment on above: Performed By: #### C HM7, IPB, MGO #### [facility] (DEFAULT) [address] [place] [address] Urea nitrogen [Mass/Vol] 5 mg/dL Low 7-25 [facility] Comment on above: Performed By: #### C HM7, IPB, MGO #### [facility] (DEFAULT) [address] [place] [address] Urea nitrogen/Creatinine [Mass ratio] 8 mg/mg Normal [facility] Comment on above: Performed By: #### C HM7, IPB, MGO #### [facility] (DEFAULT) [address] [place] [address] Anion gap [Moles/Vol] 10 mmol/L 7 - 17 mmol/L [facility] Chloride [Moles/Vol] 102 mmol/L 98 - 10 8 mmol/L [facility] CO2 [Moles/Vol] 30 mmol/L 21 - 31 mmol/L [facility] Creatinine [Mass/Vol] 0.64 mg/dL Low 0.70 - 1.30 mg/dL [facility] eGFR, CKD-EPI, Male - PINF [facility] Comment on above: Reported eGFR is bas ed on the CKD-EPI 2020 equation using creatinine, age, and sex. Glucose [Mass/Vol] 101 mg/dL High 70 - 99 mg/dL [facility] Interpretation and review of laboratory results Abnormal [facility] Osmolality Calc [Osmolality] 287 [facility] Potassium [Moles/Vol] 4.4 mmol/L 3.5 - 5.0 mmol/L [facility] Sodium [Moles/Vol] 138 mmol/L 135 - 145 mmol/L [facility] Urea nitrogen [Mass/Vol] 5 mg/dL Low 7 - 25 mg/dL [facility] Urea nitrogen/Creatinine [Mass ratio] 8 mg/mg [facility] Anion gap [Moles/Vol] 10 mmol/L Normal 7-17 [facility] Comment on above: Performed By: #### C HM7 ####[facility] (DEFAULT)[address] [place] [address] Chloride [Moles/Vol] 102 mmol/L Normal 98-108 [facility] Comment on above: Performed By: #### C HM7 ####[facility] (DEFAULT)[address] [place] [address] CO2 [Moles/Vol] 30 mmol/L Normal 21-31 [facility] Comment on above: Performed By: #### C HM7 ####[facility] (DEFAULT)[address] [place] [address] Creatinine [Mass/Vol] 0.64 mg/dL Low 0.70-1.[address] [facility] Comment on above: Performed By: #### C HM7 ####[facility] (DEFAULT)[address] [place] [address] eGFR, CKD-EPI, Male > Normal >=60 [facility] Comment on above: Result Comment: Repo rted eGFR is based on the CKD-EPI 2020 equation using creatinine, age, and sex. Performed By: #### C HM7 ####[facility] (DEFAULT)[address] [place] [address] Glucose [Mass/Vol] 101 mg/dL High 70-99 [facility] Comment on above: Performed By: #### C HM7 ####U [facility] (DEFAULT)[address] [place] [address] Osmolality [Osmolality] 287 mosm/kg Normal 278-305 [facility] Comment on above: Performed By: #### C HM7 ####U [facility] (DEFAULT)[address] [place] [address] Potassium [Moles/Vol] 4.4 mmol/L Normal 3.5-5.[address] [facility] Comment on above: Performed By: #### C HM7 ####[facility] (DEFAULT)[address] [place] [address] Sodium [Moles/Vol] 138 mmol/L Normal 135-145 [facility] Comment on above: Performed By: #### C HM7 ####[facility] (DEFAULT)[address] [place] [address] Urea nitrogen [Mass/Vol] 5 mg/dL Low 7-25 [facility] Comment on above: Performed By: #### C HM7 ####[facility] (DEFAULT)[address] [place] [address] Urea nitrogen/Creatinine [Mass ratio] 8 mg/mg Normal [facility] Comment on above: Performed By: #### C HM7 ####[facility] (DEFAULT)[address] [place] [address] Anion gap [Moles/Vol] 12 mmol/L Normal 7-[address] [facility] Comment on above: Performed By: #### S URGP #### [facility] (DEFAULT) [address] [place] [address] Chloride [Moles/Vol] 103 mmol/L Normal 98-108 [facility] Comment on above: Performed By: #### S URGP #### [facility] (DEFAULT) [address] [place] [address] CO2 [Moles/Vol] 27 mmol/L Normal 21-31 [facility] Comment on above: Performed By: #### S URGP #### [facility] (DEFAULT) [address] [place] [address] Creatinine [Mass/Vol] 0.61 mg/dL Low 0.70-1.[address] [facility] Comment on above: Performed By: #### S URGP #### [facility] (DEFAULT) [address] [place] [address]11 eGFR, CKD-EPI, Male > Normal >=60 [facility] Comment on above: Result Comment: Repo rted eGFR is based on the CKD-EPI 2020 equation using creatinine, age, and sex. Performed By: #### S URGP #### U [facility] (DEFAULT) [address] [place] [address] Glucose [Mass/Vol] 121 mg/dL High 70-99 [facility] Comment on above: Performed By: #### S URGP #### U [facility] (DEFAULT) [address] [place] [address] Osmolality [Osmolality] 289 mosm/kg Normal 278-305 [facility] Comment on above: Performed By: #### S URGP #### [facility] (DEFAULT) [address] [place] [address] Potassium [Moles/Vol] 4.3 mmol/L Normal 3.5-5.[address] [facility] Comment on above: Performed By: #### S URGP #### U [facility] (DEFAULT) [address] [place] [address] Sodium [Moles/Vol] 138 mmol/L Normal 135-145 [facility] Comment on above: Performed By: #### S URGP #### [facility] (DEFAULT) [address] [place] [address]471 Urea nitrogen [Mass/Vol] 6 mg/dL Low 7-25 [facility] Comment on above: Performed By: #### S URGP #### U [facility] (DEFAULT) [address] [place] [address] Urea nitrogen/Creatinine [Mass ratio] 10 mg/mg Normal [facility] Comment on above: Performed By: #### S URGP #### [facility] (DEFAULT) [address] [place] [address] 36037 CHEM 7 (LYTES,BUN,CREA,GLUC) Ordered By: Jessica Tran on 05-01-2024 Anion gap [Moles/Vol] 12 mmol/L 7 - 17 mmol/L [facility] Chloride [Moles/Vol] 103 mmol/L 98 - 10 8 mmol/L [facility] CO2 [Moles/Vol] 27 mmol/L 21 - 31 mmol/L [facility] Creatinine [Mass/Vol] 0.61 mg/dL Low 0.70 - 1.30 mg/dL [facility] eGFR, CKD-EPI, Male - PINF [facility] Comment on above: Reported eGFR is bas ed on the CKD-EPI 2020 equation using creatinine, age, and sex. Glucose [Mass/Vol] 121 mg/dL High 70 - 99 mg/dL [facility] Interpretation and review of laboratory results Abnormal [facility] Osmolality Calc [Osmolality] 289 [facility] Potassium [Moles/Vol] 4.3 mmol/L 3.5 - 5.0 mmol/L [facility] Sodium [Moles/Vol] 138 mmol/L 135 - 145 mmol/L [facility] Urea nitrogen [Mass/Vol] 6 mg/dL Low 7 - 25 mg/dL [facility] Urea nitrogen/Creatinine [Mass ratio] 10 mg/mg [facility] CONTINUOUS CARDIAC MONITORIN G STRIPOrdered By: Unassigned Pacs on 05-01-2024 [facility] Work Phone: DRAINAGE BY CATHETER PERITON EAL/RETROPERITONEAL [...] medication(s), I spent 51 minutes of continuous [id number]-qp-[id number] time with the patient. COMPARISON: CT abdomen/pelvis [...] was provided using 2% Lidocaine. Procedure/Findings: An [id number] Cook Yueh trocar needle was advanced using [...] Heaton RN at 04/30/2024 4:56 PM AH [facility] IMPRESSION: Successful placement of 10-Sudanese drain into [...] medication(s), I spent 51 minutes of continuous rgfa-[id number]-rrlv time with the patient. COMPARISON: CT abdomen/pelvis [...] was provided using 2% Lidocaine. Procedure/Findings: An [id number] Cook Yueh trocar needle was advanced using [...] medication(s), I spent 51 minutes of continuous yxjl-py-vynn time with the patient. COMPARISON: CT abdomen/pelvis [...] was provided using 2% Lidocaine. Procedure/Findings: An [id number] [employer] trocar needle was advanced using CT fluoroscopic [...] I have reviewed and approved this report. [facility] MAGNESIUMon 05-01-2024 Magnesium [Mass/Vol] 1.8 mg/dL 1.6 - 2 .6 mg/dL [facility] Magnesium [Mass/Vol] 1.8 mg/dL Normal 1.6-2.6 [facility] Comment on above: Performed By: #### S URGP #### [facility] (DEFAULT) [address] [place] [address] No Panel Informationon 05-01 Interpretation and review of laboratory results Normal [facility] PHOSPHATE, INORGANICon 05-01 Phosphate [Mass/Vol] 2.4 mg/dL 2.2 - 4 .6 mg/dL [facility] Phosphorous 2.4 mg/dL Normal 2.2-4.6 [facility] Comment on above: Performed By: #### S URGP #### [facility] (DEFAULT) [address] [place] [address] 11917 BACTERIAL CULTURE AND DIRECT SMEAR, LESION, TISSUE, DEVICEon 04-30-2024 Bacteria identified Cx Nom (Unsp spec) Normal [facility] Comment on above: Result Comment: Grow Moderate Growth Escherichia coli Susceptibilities not routinely performed. 2926 Moderate Growth Streptococcus anginosus group Susceptibilities not routinely performed. Refer to specimen [id number] on 04/29/24 for requested susceptibilities. Performed By: #### S URGP #### [facility] (DEFAULT) [address] [place] [address]458 Microscopic observation Gram stain Nom (Unsp spec) Normal [facility] Comment on above: Result Comment: Neut rophils, Heavy Mononuclear cells present Red Blood Cells Present Gram Negative Bacilli Gram Positive Cocci Performed By: #### S URGP #### [facility] (DEFAULT) [address] [address] CBC,PLATELETSon 04-30-2024 Erythrocyte distribution width (RBC) [Ratio] 13.9 % 10.9 - 14.3 % [facility] Hematocrit (Bld) [Volume fraction] 27.3 % Low 39.6 - 48.8 % [facility] Hemoglobin (Bld) [Mass/Vol] 9.0 g/dL Low 13.4 - 16.8 g/dL [facility] Interpretation and review of laboratory results Abnormal [facility] MCH (RBC) [Entitic mass] 30.0 pg 26.1 - 33.3 pg [facility] MCHC (RBC) [Mass/Vol] 33.0 g/dL 31.9 - 36.5 g/dL [facility] MCV (RBC) [Entitic vol] 91.0 fL 79.0 - 94.5 fL [facility] Platelet mean volume (Bld) [Entitic vol] 9.3 fL 8.7 - 12.3 fL [facility] Platelets (Bld) [#/Vol] 328 10*3/uL 146 - 337 K/uL [facility] RBC (Bld) [#/Vol] 3.00 10*6/uL Low [facility] WBC (Bld) [#/Vol] 12.78 10*3/uL High 3.73 - 10.10 K/uL [facility] Hematocrit (Bld) [Volume fraction] 27.3 % Low 39.6-48.8 [facility] Comment on above: Performed By: #### T YPEC #### [facility] (DEFAULT) [address] [address] Hemoglobin (Bld) [Mass/Vol] 9.0 g/dL Low 13.4-16.8 [facility] Comment on above: Performed By: #### T YPEC #### [facility] (DEFAULT) [address] [address] MCV (RBC) [Entitic vol] 91.0 fL Normal 79.0-94.5 [facility] Comment on above: Performed By: #### T YPEC #### [facility] (DEFAULT) [address] [address] Mean Cell Hgb 30.0 pg Normal 26.1-33.3 [facility] Comment on above: Performed By: #### T YPEC #### [facility] (DEFAULT) [address] [address] Mean Cell Hgb Conc 33.0 g/dL Normal 31.9-36.5 [facility] Comment on above: Performed By: #### T YPEC #### [facility] (DEFAULT) [address] [place] [address]326 Platelet mean volume (Bld) [Entitic vol] 9.3 fL Normal 8.7-12.3 [facility] Comment on above: Performed By: #### T YPEC #### [facility] (DEFAULT) [address] [place] [address] 77429 Platelets (Bld) [#/Vol] 328 10*3/uL Normal 146-337 [facility] Comment on above: Performed By: #### T YPEC #### [facility] (DEFAULT) [address] [place] [address] 38586 RBC (Bld) [#/Vol] 3.00 10*6/uL Low 4.38-5.83 [facility] Comment on above: Performed By: #### T YPEC #### [facility] (DEFAULT) [address] [place] [address] 38171 RBC Distribution 13.9 % Normal 10.9-14.3 [facility] Comment on above: Performed By: #### T YPEC #### [facility] (DEFAULT) [address] [place] [address] 23213 WBC (Bld) [#/Vol] 12.78 10*3/uL High 3.73-10.10 [facility] Comment on above: Performed By: #### T YPEC #### [facility] (DEFAULT) [address] [place] [address] 86050 CHEM 7 (LYTES,BUN,CREA,GLUC) on 04-30-2024 Anion gap [Moles/Vol] 13 mmol/L 7 - 17 mmol/L [facility] Chloride [Moles/Vol] 101 mmol/L 98 - 10 8 mmol/L [facility] CO2 [Moles/Vol] 29 mmol/L 21 - 31 mmol/L [facility] Creatinine [Mass/Vol] 0.56 mg/dL Low 0.70 - 1.30 mg/dL [facility] eGFR, CKD-EPI, Male - PINF [facility] Comment on above: Reported eGFR is bas ed on the CKD-EPI 2020 equation using creatinine, age, and sex. Glucose [Mass/Vol] 97 mg/dL 70 - 99 mg/dL [facility] Interpretation and review of laboratory results Abnormal [facility] Osmolality Calc [Osmolality] 289 [facility] Potassium [Moles/Vol] 3.2 mmol/L Low 3.5 - 5.0 mmol/L [facility] Sodium [Moles/Vol] 140 mmol/L 135 - 145 mmol/L [facility] Urea nitrogen [Mass/Vol] 6 mg/dL Low 7 - 25 mg/dL [facility] Urea nitrogen/Creatinine [Mass ratio] 11 mg/mg [facility] Anion gap [Moles/Vol] 13 mmol/L Normal 7-[address] [facility] Comment on above: Performed By: #### S URGP #### [facility] (DEFAULT) [address] [address] Chloride [Moles/Vol] 101 mmol/L Normal 98-108 [facility] Comment on above: Performed By: #### S URGP #### [facility] (DEFAULT) [address] [place] [address]137 CO2 [Moles/Vol] 29 mmol/L Normal 21-31 [facility] Comment on above: Performed By: #### S URGP #### [facility] (DEFAULT) [address] [place] [address] 99637 Creatinine [Mass/Vol] 0.56 mg/dL Low 0.70-1.[address] [facility] Comment on above: Performed By: #### S URGP #### [facility] (DEFAULT) [address] [address] eGFR, CKD-EPI, Male > Normal >=60 [facility] Comment on above: Result Comment: Repo rted eGFR is based on the CKD-EPI 2020 equation using creatinine, age, and sex. Performed By: #### S URGP #### U [facility] (DEFAULT) [address] [place] [address]38 Glucose [Mass/Vol] 97 mg/dL Normal 70-99 [facility] Comment on above: Performed By: #### S URGP #### U [facility] (DEFAULT) [address] [place] [address] Osmolality [Osmolality] 289 mosm/kg Normal 278-305 [facility] Comment on above: Performed By: #### S URGP #### U [facility] (DEFAULT) [address] [place] [address]40 Potassium [Moles/Vol] 3.2 mmol/L Low 3.5-5.[address] [facility] Comment on above: Performed By: #### S URGP #### [facility] (DEFAULT) [address] [place] [address] 81586 Sodium [Moles/Vol] 140 mmol/L Normal 135-145 [facility] Comment on above: Performed By: #### S URGP #### [facility] (DEFAULT) [address] [place] [address] 19070 Urea nitrogen [Mass/Vol] 6 mg/dL Low 7-25 [facility] Comment on above: Performed By: #### S URGP #### [facility] (DEFAULT) [address] [place] [address] 60184 Urea nitrogen/Creatinine [Mass ratio] 11 mg/mg Normal [facility] Comment on above: Performed By: #### S URGP #### [facility] (DEFAULT) [address] [place] [address] 23344 Anion gap [Moles/Vol] 8 mmol/L 7 - 17 mmol/L [facility] Chloride [Moles/Vol] 101 mmol/L 98 - 10 8 mmol/L [facility] CO2 [Moles/Vol] 32 mmol/L High 21 - 31 mmol/L [facility] Creatinine [Mass/Vol] 0.57 mg/dL Low 0.70 - 1.30 mg/dL [facility] eGFR, CKD-EPI, Male - PINF [facility] Comment on above: Reported eGFR is bas ed on the CKD-EPI 2020 equation using creatinine, age, and sex. Glucose [Mass/Vol] 102 mg/dL High 70 - 99 mg/dL [facility] Interpretation and review of laboratory results Abnormal [facility] Osmolality Calc [Osmolality] 285 [facility] Potassium [Moles/Vol] 3.3 mmol/L Low 3.5 - 5.0 mmol/L [facility] Sodium [Moles/Vol] 138 mmol/L 135 - 145 mmol/L [facility] Urea nitrogen [Mass/Vol] 6 mg/dL Low 7 - 25 mg/dL [facility] Urea nitrogen/Creatinine [Mass ratio] 11 mg/mg [facility] Anion gap [Moles/Vol] 8 mmol/L Normal 7-[address] [facility] Comment on above: Performed By: #### C HM7, IPB, MGO #### [facility] (DEFAULT) [address] [place] [address] Chloride [Moles/Vol] 101 mmol/L Normal 98-108 [facility] Comment on above: Performed By: #### C HM7, IPB, MGO #### [facility] (DEFAULT) [address] [place] [address] CO2 [Moles/Vol] 32 mmol/L High 21-31 [facility] Comment on above: Performed By: #### C HM7, IPB, MGO #### [facility] (DEFAULT) [address] [place] [address] Creatinine [Mass/Vol] 0.57 mg/dL Low 0.70-1.[address] [facility] Comment on above: Performed By: #### C HM7, IPB, MGO #### [facility] (DEFAULT) [address] [place] [address] eGFR, CKD-EPI, Male > Normal >=60 [facility] Comment on above: Result Comment: Repo rted eGFR is based on the CKD-EPI 2020 equation using creatinine, age, and sex. Performed By: #### C HM7, IPB, MGO #### [facility] (DEFAULT) [address] [place] [address] Glucose [Mass/Vol] 102 mg/dL High 70-99 [facility] Comment on above: Performed By: #### C HM7, IPB, MGO #### [facility] (DEFAULT) [address] [place] [address] Osmolality [Osmolality] 285 mosm/kg Normal 278-305 [facility] Comment on above: Performed By: #### C HM7, IPB, MGO #### [facility] (DEFAULT) [address] [place] [address] Potassium [Moles/Vol] 3.3 mmol/L Low 3.5-5.[address] [facility] Comment on above: Performed By: #### C HM7, IPB, MGO #### [facility] (DEFAULT) [address] [place] [address] 24095 Sodium [Moles/Vol] 138 mmol/L Normal 135-145 [facility] Comment on above: Performed By: #### C HM7, IPB, MGO #### [facility] (DEFAULT) [address] [place] [address] Urea nitrogen [Mass/Vol] 6 mg/dL Low 7-25 [facility] Comment on above: Performed By: #### C HM7, IPB, MGO #### [facility] (DEFAULT) [address] [place] [address] 13570 Urea nitrogen/Creatinine [Mass ratio] 11 mg/mg Normal [facility] Comment on above: Performed By: #### C HM7, IPB, MGO #### [facility] (DEFAULT) [address] [place] [address] Anion gap [Moles/Vol] 9 mmol/L 7 - 17 mmol/L [facility] Chloride [Moles/Vol] 101 mmol/L 98 - 10 8 mmol/L [facility] CO2 [Moles/Vol] 31 mmol/L 21 - 31 mmol/L [facility] Creatinine [Mass/Vol] 0.65 mg/dL Low 0.70 - 1.30 mg/dL [facility] eGFR, CKD-EPI, Male - PINF [facility] Comment on above: Reported eGFR is bas ed on the CKD-EPI 2020 equation using creatinine, age, and sex. Glucose [Mass/Vol] 108 mg/dL High 70 - 99 mg/dL [facility] Interpretation and review of laboratory results Abnormal [facility] Osmolality Calc [Osmolality] 287 [facility] Potassium [Moles/Vol] 3.4 mmol/L Low 3.5 - 5.0 mmol/L [facility] Sodium [Moles/Vol] 138 mmol/L 135 - 145 mmol/L [facility] Urea nitrogen [Mass/Vol] 8 mg/dL 7 - 25 mg/dL [facility] Urea nitrogen/Creatinine [Mass ratio] 12 mg/mg [facility] Anion gap [Moles/Vol] 9 mmol/L Normal 7-[address] [facility] Comment on above: Performed By: #### I SWATI MARTINEZ CHM7 ####[facility] (DEFAULT)[address] [place] [address] Chloride [Moles/Vol] 101 mmol/L Normal 98-108 [facility] Comment on above: Performed By: #### I SWATI MARTINEZ CHM7 ####[facility] (DEFAULT)[address] [place] [address] CO2 [Moles/Vol] 31 mmol/L Normal 21-31 [facility] Comment on above: Performed By: #### I SWATI MARTINEZ CHM7 ####[facility] (DEFAULT)[address] [place] [address] Creatinine [Mass/Vol] 0.65 mg/dL Low 0.70-1.[address] [facility] Comment on above: Performed By: #### SWATI FISHER CHM7 ####[facility] (DEFAULT)[address] [place] [address] eGFR, CKD-EPI, Male > Normal >=60 [facility] Comment on above: Result Comment: Repo rted eGFR is based on the CKD-EPI 2020 equation using creatinine, age, and sex. Performed By: #### SWATI FISHER CHM7 ####[facility] (DEFAULT)[address] [place] [address] Glucose [Mass/Vol] 108 mg/dL High 70-99 [facility] Comment on above: Performed By: #### SWATI FISHER CHMRosemary ####[facility] (DEFAULT)[address] [place] [address] Osmolality [Osmolality] 287 mosm/kg Normal 278-305 [facility] Comment on above: Performed By: #### SWATI FISHER CHM7 ####[facility] (DEFAULT)[address] [place] [address] Potassium [Moles/Vol] 3.4 mmol/L Low 3.5-5.[address] [facility] Comment on above: Performed By: #### SWATI FISHER CHM7 ####[facility] (DEFAULT)[address] [place] [address] Sodium [Moles/Vol] 138 mmol/L Normal 135-145 [facility] Comment on above: Performed By: #### Keisha MARTINEZ MGO CHM7 ####[facility] (DEFAULT)[address] [place] [address] Urea nitrogen [Mass/Vol] 8 mg/dL Normal 7-25 [facility] Comment on above: Performed By: #### I SWATI MARTINEZ CHM7 ####[facility] (DEFAULT)[address] [place] [address] Urea nitrogen/Creatinine [Mass ratio] 12 mg/mg Normal [facility] Comment on above: Performed By: #### I SWATI MARTINEZ CHM7 ####[facility] (DEFAULT)[address] [place] [address] DRAINAGE BY CATHETER PERITON EAL/RETROPERITONEAL PERCUTANEOUS W/ IMAGINon 04-30-2024 Radiology Study observation (narrative) [facility] MAGNESIUMon 04-30-2024 Magnesium [Mass/Vol] 1.9 mg/dL 1.6 - 2 .6 mg/dL [facility] Magnesium [Mass/Vol] 1.9 mg/dL Normal 1.6-2.6 [facility] Comment on above: Performed By: #### I SWATI MARTINEZ CHM7 ####[facility] (DEFAULT)[address] [place] [address] No Panel Informationon 04-30 Interpretation and review of laboratory results Normal [facility] PHOSPHATE, INORGANICon 04-30 Phosphate [Mass/Vol] 2.7 mg/dL 2.2 - 4 .6 mg/dL [facility] Phosphorous 2.7 mg/dL Normal 2.2-4.6 [facility] Comment on above: Performed By: #### I SWATI MARTINEZ CHM7 ####[facility] (DEFAULT)[address] [place] [address]175 BACTERIAL CULTURE AND DIRECT SMEAR, LESION, TISSUE, DEVICEon 04-29-2024 Ampicillin [Susceptibility] <= Invalid Interpretation Code [facility] Comment on above: Order Comment: If an aerobe isolation is necessary, please send specimen for anaerobic culture. Performed By: #### S URGP #### [facility] (DEFAULT) [address] [place] [address] cefTRIAXone [Susceptibility] <= Invalid Interpretation Code [facility] Comment on above: Order Comment: If an aerobe isolation is necessary, please send specimen for anaerobic culture. Performed By: #### S URGP #### [facility] (DEFAULT) [address] [address] Clindamycin [Susceptibility] <= Invalid Interpretation Code [facility] Comment on above: Order Comment: If an aerobe isolation is necessary, please send specimen for anaerobic culture. Performed By: #### S URGP #### [facility] (DEFAULT) [address] [place] [address] levoFLOXacin [Susceptibility] 0.5 ug/mL Invalid Interpretation Code [facility] Comment on above: Order Comment: If an aerobe isolation is necessary, please send specimen for anaerobic culture. Performed By: #### S URGP #### [facility] (DEFAULT) [address] [address] Penicillin [Susceptibility] <=0.[address] [facility] Comment on above: Order Comment: If an aerobe isolation is necessary, please send specimen for anaerobic culture. Performed By: #### S URGP #### [facility] (DEFAULT) [address] [address] Vancomycin [Susceptibility] 0.5 ug/mL Invalid Interpretation Code [facility] Comment on above: Order Comment: If an aerobe isolation is necessary, please send specimen for anaerobic culture. Performed By: #### S URGP #### [facility] (DEFAULT) [address] [address] BLOOD CULTUREon 04-29-2024 Bacteria identified Cx Nom (Unsp spec) NO GROWTH DAY [address] [facility] Comment on above: Order Comment: 2 [...] By: #### S URGP #### [facility] (DEFAULT) [address] [place] [address] CBC AND ELECTRONIC DIFFon Basophils (Bld) [#/Vol] 0.04 10*3/uL 0.00 - 0.09 K/uL [facility] Basophils/100 WBC (Bld) 0.2 % [facility] Differential cell count method Nom (Bld) Electronic Differential O [facility] Eosinophils (Bld) [#/Vol] 0.07 10*3/uL 0.00 - 0.48 K/uL [facility] Eosinophils/100 WBC (Bld) 0.4 % [facility] Erythrocyte distribution width (RBC) [Ratio] 14.0 % 10.9 - 14.3 % [facility] Hematocrit (Bld) [Volume fraction] 27.5 % Low 39.6 - 48.8 % [facility] Hemoglobin (Bld) [Mass/Vol] 9.1 g/dL Low 13.4 - 16.8 g/dL [facility] Immature granulocytes (Bld) [#/Vol] 0.24 10*3/uL High NINF - 0.07 K/uL [facility] Immature granulocytes/100 WBC (Bld) 1.4 % [facility] Interpretation and review of laboratory results Abnormal [facility] Lymphocytes (Bld) [#/Vol] 1.17 10*3/uL 0.83 - 3.57 K/uL [facility] Lymphocytes/100 WBC (Bld) 6.8 % [facility] MCH (RBC) [Entitic mass] 29.5 pg 26.1 - 33.3 pg [facility] MCHC (RBC) [Mass/Vol] 33.1 g/dL 31.9 - 36.5 g/dL [facility] MCV (RBC) [Entitic vol] 89.3 fL 79.0 - 94.5 fL [facility] Monocytes (Bld) [#/Vol] 0.87 10*3/uL 0.24 - 0.93 K/uL [facility] Monocytes/100 WBC (Bld) 5.1 % [facility] Neutrophils (Bld) [#/Vol] 14.82 10*3/uL High 1.57 - 6.19 K/uL [facility] Nucleated RBC/100 WBC (Bld) [Ratio] 0.0 % NINF [facility] Platelet mean volume (Bld) [Entitic vol] 8.9 fL 8.7 - 12.3 fL [facility] Platelets (Bld) [#/Vol] 330 10*3/uL 146 - 337 K/uL [facility] RBC (Bld) [#/Vol] 3.08 10*6/uL Low [facility] Segmented neutrophils/100 WBC (Bld) 86.1 % [facility] WBC (Bld) [#/Vol] 17.21 10*3/uL High 3.73 - 10.10 K/uL [facility] Basophils (Bld) [#/Vol] 0.04 10*3/uL Normal 0.00-0.09 [facility] Comment on above: Performed By: #### T YPEC #### [facility] (DEFAULT) [address] [address] Basophils/100 WBC (Bld) 0.2 % Normal [facility] Comment on above: Performed By: #### T YPEC #### [facility] (DEFAULT) [address] [place] [address] DIFF STATUS Electronic Differential Normal [facility] Comment on above: Performed By: #### T YPEC #### [facility] (DEFAULT) [address] [place] [address] Eosinophils (Bld) [#/Vol] 0.07 10*3/uL Normal 0.00-0.48 [facility] Comment on above: Performed By: #### T YPEC #### [facility] (DEFAULT) [address] [place] [address]28 Eosinophils/100 WBC (Bld) 0.4 % Normal [facility] Comment on above: Performed By: #### T YPEC #### [facility] (DEFAULT) [address] [address] Hematocrit (Bld) [Volume fraction] 27.5 % Low 39.6-48.8 [facility] Comment on above: Performed By: #### T YPEC #### [facility] (DEFAULT) [address] [address] Hemoglobin (Bld) [Mass/Vol] 9.1 g/dL Low 13.4-16.8 [facility] Comment on above: Performed By: #### T YPEC #### [facility] (DEFAULT) [address] [address] Immature Grans % 1.4 % Normal [facility] Comment on above: Performed By: #### T YPEC #### [facility] (DEFAULT) [address] [address] Immature Grans Absolute 0.24 K/uL High <=0.07 [facility] Comment on above: Performed By: #### T YPEC #### [facility] (DEFAULT) [address] [address] Lymphocytes (Bld) [#/Vol] 1.17 10*3/uL Normal 0.83-3.57 [facility] Comment on above: Performed By: #### T YPEC #### [facility] (DEFAULT) [address] [address] Lymphocytes/100 WBC (Bld) 6.8 % Normal [facility] Comment on above: Performed By: #### T YPEC #### [facility] (DEFAULT) [address] [address] MCV (RBC) [Entitic vol] 89.3 fL Normal 79.0-94.5 [facility] Comment on above: Performed By: #### T YPEC #### [facility] (DEFAULT) [address] [address] Mean Cell Hgb 29.5 pg Normal 26.1-33.3 [facility] Comment on above: Performed By: #### T YPEC #### [facility] (DEFAULT) [address] [address] Mean Cell Hgb Conc 33.1 g/dL Normal 31.9-36.5 [facility] Comment on above: Performed By: #### T YPEC #### [facility] (DEFAULT) [address] [address] Monocytes (Bld) [#/Vol] 0.87 10*3/uL Normal 0.24-0.93 [facility] Comment on above: Performed By: #### T YPEC #### [facility] (DEFAULT) [address] [address] Monocytes/100 WBC (Bld) 5.1 % Normal [facility] Comment on above: Performed By: #### T YPEC #### [facility] (DEFAULT) [address] [address] Nucleated RBC 0.0 /100 WBC Normal <=0.2 [facility] Comment on above: Performed By: #### T YPEC #### [facility] (DEFAULT) [address] [address] Platelet mean volume (Bld) [Entitic vol] 8.9 fL Normal 8.7-12.3 [facility] Comment on above: Performed By: #### T YPEC #### [facility] (DEFAULT) [address] [address] Platelets (Bld) [#/Vol] 330 10*3/uL Normal 146-337 [facility] Comment on above: Performed By: #### T YPEC #### [facility] (DEFAULT) [address] [address] RBC (Bld) [#/Vol] 3.08 10*6/uL Low 4.38-5.83 [facility] Comment on above: Performed By: #### T YPEC #### [facility] (DEFAULT) [address] [place] [address] RBC Distribution 14.0 % Normal 10.9-14.3 [facility] Comment on above: Performed By: #### T YPEC #### [facility] (DEFAULT) [address] [place] [address] Segs + Bands Auto 86.1 % Normal [facility] Comment on above: Performed By: #### T YPEC #### [facility] (DEFAULT) [address] [place] [address] Segs + Bands,Absolute Auto 14.82 K/uL High 1.57-6.19 [facility] Comment on above: Performed By: #### T YPEC #### [facility] (DEFAULT) [address] [place] [address] WBC (Bld) [#/Vol] 17.21 10*3/uL High 3.73-10.10 [facility] Comment on above: Performed By: #### T YPEC #### [facility] (DEFAULT) [address] [place] [address] CEAOrdered By: Negro grace on 04-29-2024 Carcinoembryonic Ag [Mass/Vol] ng/mL NINF - 5.0 ng/mL [facility] Comment on above: This test was perfor med on the [employer] IM Immunoassay platform which is a 2-step sandwich chemiluminescent immunoassay. It is important to note that assays using different manufacturers and/or methods may not be comparable. Interpretation and review of laboratory results Normal [facility] CEAon 04-29-2024 Cea <2.0 Normal <=5.0 [facility] Comment on above: Result Comment: This test was performed on the [employer] IM Immunoassay platform which is a 2-step sandwich chemiluminescent immunoassay. It is important to note that assays using different manufacturers and/or methods may not be comparable. Performed By: #### S URGP #### [facility] (DEFAULT) [address] [place] [address] CHEM 7 (LYTES,BUN,CREA,GLUC) on 04-29-2024 Anion gap [Moles/Vol] 8 mmol/L 7 - 17 mmol/L [facility] Chloride [Moles/Vol] 105 mmol/L 98 - 10 8 mmol/L [facility] CO2 [Moles/Vol] 28 mmol/L 21 - 31 mmol/L [facility] Creatinine [Mass/Vol] 0.45 mg/dL Low 0.70 - 1.30 mg/dL [facility] eGFR, CKD-EPI, Male - PINF [facility] Comment on above: Reported eGFR is bas ed on the CKD-EPI 2020 equation using creatinine, age, and sex. Glucose [Mass/Vol] 93 mg/dL 70 - 99 mg/dL [facility] Interpretation and review of laboratory results Abnormal [facility] Osmolality Calc [Osmolality] 285 [facility] Potassium [Moles/Vol] 3.4 mmol/L Low 3.5 - 5.0 mmol/L [facility] Comment on above: Specimen hemolyzed. Potassium results may be falsely elevated masking hypokalemia. Interpret within the clinical context. Sodium [Moles/Vol] 138 mmol/L 135 - 145 mmol/L [facility] Urea nitrogen [Mass/Vol] 7 mg/dL 7 - 25 mg/dL [facility] Urea nitrogen/Creatinine [Mass ratio] 16 mg/mg [facility] Anion gap [Moles/Vol] 8 mmol/L Normal 7-17 [facility] Comment on above: Performed By: #### S URGP #### [facility] (DEFAULT) [address] [place] [address] Chloride [Moles/Vol] 105 mmol/L Normal 98-108 [facility] Comment on above: Performed By: #### S URGP #### [facility] (DEFAULT) [address] [place] [address] CO2 [Moles/Vol] 28 mmol/L Normal 21-31 [facility] Comment on above: Performed By: #### S URGP #### [facility] (DEFAULT) [address] [address] Creatinine [Mass/Vol] 0.45 mg/dL Low 0.70-1.[address] [facility] Comment on above: Performed By: #### S URGP #### [facility] (DEFAULT) [address] [place] [address] eGFR, CKD-EPI, Male > Normal >=60 [facility] Comment on above: Result Comment: Repo rted eGFR is based on the CKD-EPI 2020 equation using creatinine, age, and sex. Performed By: #### S URGP #### [facility] (DEFAULT) [address] [address] Glucose [Mass/Vol] 93 mg/dL Normal 70-99 [facility] Comment on above: Performed By: #### S URGP #### [facility] (DEFAULT) [address] [address] Osmolality [Osmolality] 285 mosm/kg Normal 278-305 [facility] Comment on above: Performed By: #### S URGP #### [facility] (DEFAULT) [address] [address] Potassium [Moles/Vol] 3.4 mmol/L Low 3.5-5.[address] [facility] Comment on above: Result Comment: Spec imen hemolyzed. Potassium results may be falsely elevated masking hypokalemia. Interpret within the clinical context. Performed By: #### S URGP #### [facility] (DEFAULT) [address] [address] Sodium [Moles/Vol] 138 mmol/L Normal 135-145 [facility] Comment on above: Performed By: #### S URGP #### [facility] (DEFAULT) [address] [address] Urea nitrogen [Mass/Vol] 7 mg/dL Normal 7-25 [facility] Comment on above: Performed By: #### S URGP #### [facility] (DEFAULT) [address] [place] [address] Urea nitrogen/Creatinine [Mass ratio] 16 mg/mg Normal [facility] Comment on above: Performed By: #### S URGP #### [facility] (DEFAULT) [address] [place] [address] Anion gap [Moles/Vol] 7 mmol/L 7 - 17 mmol/L [facility] Chloride [Moles/Vol] 100 mmol/L 98 - 10 8 mmol/L [facility] CO2 [Moles/Vol] 33 mmol/L High 21 - 31 mmol/L [facility] Creatinine [Mass/Vol] 0.53 mg/dL Low 0.70 - 1.30 mg/dL [facility] eGFR, CKD-EPI, Male - PINF [facility] Comment on above: Reported eGFR is bas ed on the CKD-EPI 2020 equation using creatinine, age, and sex. Glucose [Mass/Vol] 100 mg/dL High 70 - 99 mg/dL [facility] Interpretation and review of laboratory results Abnormal [facility] Osmolality Calc [Osmolality] 284 [facility] Potassium [Moles/Vol] 3.4 mmol/L Low 3.5 - 5.0 mmol/L [facility] Sodium [Moles/Vol] 137 mmol/L 135 - 145 mmol/L [facility] Urea nitrogen [Mass/Vol] 7 mg/dL 7 - 25 mg/dL [facility] Urea nitrogen/Creatinine [Mass ratio] 13 mg/mg [facility] Anion gap [Moles/Vol] 7 mmol/L Normal 7-17 [facility] Comment on above: Performed By: #### S URGP #### [facility] (DEFAULT) [address] [place] [address] Chloride [Moles/Vol] 100 mmol/L Normal 98-108 [facility] Comment on above: Performed By: #### S URGP #### [facility] (DEFAULT) [address] [place] [address] CO2 [Moles/Vol] 33 mmol/L High 21-31 [facility] Comment on above: Performed By: #### S URGP #### [facility] (DEFAULT) [address] [place] [address] Creatinine [Mass/Vol] 0.53 mg/dL Low 0.70-1.[address] [facility] Comment on above: Performed By: #### S URGP #### [facility] (DEFAULT) [address] [place] [address] eGFR, CKD-EPI, Male > Normal >=60 [facility] Comment on above: Result Comment: Repo rted eGFR is based on the CKD-EPI 2020 equation using creatinine, age, and sex. Performed By: #### S URGP #### [facility] (DEFAULT) [address] [place] [address] Glucose [Mass/Vol] 100 mg/dL High 70-99 [facility] Comment on above: Performed By: #### S URGP #### U [facility] (DEFAULT) [address] [place] [address] Osmolality [Osmolality] 284 mosm/kg Normal 278-305 [facility] Comment on above: Performed By: #### S URGP #### U [facility] (DEFAULT) [address] [place] [address] Potassium [Moles/Vol] 3.4 mmol/L Low 3.5-5.[address] [facility] Comment on above: Performed By: #### S URGP #### U [facility] (DEFAULT) [address] [place] [address] 15966 Sodium [Moles/Vol] 137 mmol/L Normal 135-145 [facility] Comment on above: Performed By: #### S URGP #### [facility] (DEFAULT) [address] [place] [address] Urea nitrogen [Mass/Vol] 7 mg/dL Normal 7-25 [facility] Comment on above: Performed By: #### S URGP #### [facility] (DEFAULT) [address] [place] [address] Urea nitrogen/Creatinine [Mass ratio] 13 mg/mg Normal [facility] Comment on above: Performed By: #### S URGP #### U [facility] (DEFAULT) [address] [place] [address] Anion gap [Moles/Vol] 8 mmol/L 7 - 17 mmol/L [facility] Chloride [Moles/Vol] 100 mmol/L 98 - 10 8 mmol/L [facility] CO2 [Moles/Vol] 33 mmol/L High 21 - 31 mmol/L [facility] Creatinine [Mass/Vol] 0.57 mg/dL Low 0.70 - 1.30 mg/dL [facility] eGFR, CKD-EPI, Male - PINF [facility] Comment on above: Reported eGFR is bas ed on the CKD-EPI 2020 equation using creatinine, age, and sex. Glucose [Mass/Vol] 97 mg/dL 70 - 99 mg/dL [facility] Interpretation and review of laboratory results Abnormal [facility] Osmolality Calc [Osmolality] 286 [facility] Potassium [Moles/Vol] 3.1 mmol/L Low 3.5 - 5.0 mmol/L [facility] Sodium [Moles/Vol] 138 mmol/L 135 - 145 mmol/L [facility] Urea nitrogen [Mass/Vol] 9 mg/dL 7 - 25 mg/dL [facility] Urea nitrogen/Creatinine [Mass ratio] 16 mg/mg [facility] Anion gap [Moles/Vol] 8 mmol/L Normal 7-17 [facility] Comment on above: Performed By: #### C HM7 ####[facility] (DEFAULT)[address] [place] [address] Chloride [Moles/Vol] 100 mmol/L Normal 98-108 [facility] Comment on above: Performed By: #### C HM7 ####[facility] (DEFAULT)[address] [place] [address] CO2 [Moles/Vol] 33 mmol/L High 21-31 [facility] Comment on above: Performed By: #### C HM7 ####[facility] (DEFAULT)[address] [place] [address] Creatinine [Mass/Vol] 0.57 mg/dL Low 0.70-1.[address] [facility] Comment on above: Performed By: #### C HM7 ####[facility] (DEFAULT)[address] [place] [address] eGFR, CKD-EPI, Male > Normal >=60 [facility] Comment on above: Result Comment: Repo rted eGFR is based on the CKD-EPI 2020 equation using creatinine, age, and sex. Performed By: #### C HM7 ####[facility] (DEFAULT)[address] [place] [address] Glucose [Mass/Vol] 97 mg/dL Normal 70-99 [facility] Comment on above: Performed By: #### C HM7 ####[facility] (DEFAULT)[address] [place] [address] Osmolality [Osmolality] 286 mosm/kg Normal 278-305 [facility] Comment on above: Performed By: #### C HM7 ####[facility] (DEFAULT)[address] [place] [address] Potassium [Moles/Vol] 3.1 mmol/L Low 3.5-5.[address] [facility] Comment on above: Performed By: #### C HM7 ####[facility] (DEFAULT)[address] [place] [address] Sodium [Moles/Vol] 138 mmol/L Normal 135-145 [facility] Comment on above: Performed By: #### C HM7 ####[facility] (DEFAULT)[address] [place] [address] Urea nitrogen [Mass/Vol] 9 mg/dL Normal 7-25 [facility] Comment on above: Performed By: #### C HM7 ####[facility] (DEFAULT)[address] [place] [address] Urea nitrogen/Creatinine [Mass ratio] 16 mg/mg Normal [facility] Comment on above: Performed By: #### C HM7 ####[facility] (DEFAULT)[address] [place] [address] CH 7 - EDOrdered By: Robyn Jaimes on 04-29-2024 Anion gap [Moles/Vol] 9 mmol/L 7 - 17 mmol/L [facility] Chloride [Moles/Vol] 100 mmol/L 98 - 10 8 mmol/L [facility] CO2 [Moles/Vol] 34 mmol/L High 21 - 31 mmol/L [facility] Creatinine [Mass/Vol] 0.56 mg/dL Low 0.70 - 1.30 mg/dL [facility] eGFR, CKD-EPI, Male - PINF [facility] Comment on above: Reported eGFR is bas ed on the CKD-EPI 2020 equation using creatinine, age, and sex. Glucose [Mass/Vol] 97 mg/dL 70 - 99 mg/dL [facility] Interpretation and review of laboratory results Abnormal [facility] Osmolality Calc [Osmolality] 289 [facility] Potassium [Moles/Vol] 2.7 mmol/L Critically low 3.5 - 5.0 mmol/L [facility] Comment on above: Specimen integrity claire solares. Repeated and verified Sodium [Moles/Vol] 140 mmol/L 135 - 145 mmol/L [facility] Urea nitrogen [Mass/Vol] 10 mg/dL 7 - 25 mg/dL [facility] Urea nitrogen/Creatinine [Mass ratio] 18 mg/mg [facility] CHM 7 - EDon 04-29-2024 Anion gap [Moles/Vol] 9 mmol/L Normal 7-[address] [facility] Comment on above: Performed By: #### C HM7, IPB, MGO #### U [facility] (DEFAULT) [address] [place] [address] Chloride [Moles/Vol] 100 mmol/L Normal 98-108 [facility] Comment on above: Performed By: #### C HM7, IPB, MGO #### [facility] (DEFAULT) [address] [place] [address] CO2 [Moles/Vol] 34 mmol/L High 21-31 [facility] Comment on above: Performed By: #### Claire HM7, IPB, MGO #### [facility] (DEFAULT) [address] [place] [address] Creatinine [Mass/Vol] 0.56 mg/dL Low 0.70-1.[address] [facility] Comment on above: Performed By: #### Claire HM7, IPB, MGO #### U [facility] (DEFAULT) [address] [place] [address] eGFR, CKD-EPI, Male > Normal >=60 [facility] Comment on above: Result Comment: Repo rted eGFR is based on the CKD-EPI 2020 equation using creatinine, age, and sex. Performed By: #### Claire HM7, IPB, MGO #### U [facility] (DEFAULT) [address] [place] [address] Glucose [Mass/Vol] 97 mg/dL Normal 70-99 [facility] Comment on above: Performed By: #### Claire HM7, IPB, MGO #### U [facility] (DEFAULT) [address] [place] [address] Osmolality [Osmolality] 289 mosm/kg Normal 278-305 [facility] Comment on above: Performed By: #### C HM7, IPB, MGO #### U [facility] (DEFAULT) [address] [place] [address] Potassium [Moles/Vol] 2.7 mmol/L Critically low 3.5-5.0 [facility] Comment on above: Result Comment: Spec imen integrity checked. Repeated and verified Performed By: #### C HM7, IPB, MGO #### [facility] (DEFAULT) [address] [place] [address] Sodium [Moles/Vol] 140 mmol/L Normal 135-145 [facility] Comment on above: Performed By: #### C HM7, IPB, MGO #### U [facility] (DEFAULT) [address] [place] [address] Urea nitrogen [Mass/Vol] 10 mg/dL Normal 7-25 [facility] Comment on above: Performed By: #### Claire HM7, IPB, MGO #### U [facility] (DEFAULT) [address] [place] [address] 36099 Urea nitrogen/Creatinine [Mass ratio] 18 mg/mg Normal [facility] Comment on above: Performed By: #### Claire HM7, IPB, MGO #### U [facility] (DEFAULT) [address] [place] [address] ABDOMEN/PELVIS WITH CONTR Yeison 04-29-2024 CT [...] to inflammatory changes in the pelvis. Normal [facility] CT Abdomen and Pelvis W shikha [...] inflammatory changes in the pelvis. [facility] Radiology Study observation (narrative) [facility] CT Abdomen and Pelvis W cont rast IVOrdered By: Rubia Meyers on 04-29-2024 [facility] Work Phone: HEPATIC FUNCTION PANELon Albumin [Mass/Vol] 2.6 g/dL Low 3.5 - 5.0 g/dL [facility] ALP [Catalytic activity/Vol] 92 U/L 32 - 126 U/L [facility] ALT [Catalytic activity/Vol] 50 U/L 10 - 52 U/L [facility] AST [Catalytic activity/Vol] 61 U/L High 10 - 39 U/L [facility] Bilirubin [Mass/Vol] 0.6 mg/dL [facility] mg/dL [facility] Bilirubin.direct [Mass/Vol] 0.1 mg/dL [facility] - 0.[facility] mg/dL [facility] Interpretation and review of laboratory results Abnormal [facility] Protein [Mass/Vol] 5.9 g/dL Low 6.4 - 8.3 g/dL [facility] Albumin [Mass/Vol] 2.6 g/dL Low 3.5-5.0 [facility] Comment on above: Performed By: #### C ELEN STAPLES MGO #### [facility] (DEFAULT) [address] [place] [address] ALP [Catalytic activity/Vol] 92 U/L Normal 32-126 [facility] Comment on above: Performed By: #### ELEN GAMBINO MGO #### [facility] (DEFAULT) [address] [place] [address] 51221 ALT [Catalytic activity/Vol] 50 U/L Normal 10-52 [facility] Comment on above: Performed By: #### Claire HM7, IPB, MGO #### U [facility] (DEFAULT) [address] [place] [address] 38497 AST [Catalytic activity/Vol] 61 U/L High 10-39 [facility] Comment on above: Performed By: #### Claire HM7, IPB, MGO #### [facility] (DEFAULT) [address] [place] [address] 36992 Bilirubin [Mass/Vol] 0.6 mg/dL Normal <1.5 [facility] Comment on above: Performed By: #### Claire HM7, IPB, MGO #### [facility] (DEFAULT) [address] [place] [address] 366[address] Bilirubin.indirect [Mass/Vol] 0.1 mg/dL Normal <0.3 [facility] Comment on above: Performed By: #### Claire HM7, IPB, MGO #### [facility] (DEFAULT) [address] [place] [address]953 Protein [Mass/Vol] 5.9 g/dL Low 6.4-8.3 [facility] Comment on above: Performed By: #### Claire HM7, IPB, MGO #### [facility] (DEFAULT) [address] [place] [address]605 M[place] TOP TUBEon 2023 [facility] No Panel Informationon 04-29 [facility] PLATELET COUNTon 04-29-2024 Interpretation and review of laboratory results Normal [facility] Platelet mean volume (Bld) [Entitic vol] 9.3 fL 8.7 - 12.3 fL [facility] Platelets (Bld) [#/Vol] 308 10*3/uL 146 - 337 K/uL [facility] Platelet mean volume (Bld) [Entitic vol] 9.3 fL Normal 8.7-12.3 [facility] Comment on above: Performed By: #### G EN #### [facility] (DEFAULT) [address] [place] [address] 64247 Platelets (Bld) [#/Vol] 308 10*3/uL Normal 146-337 [facility] Comment on above: Performed By: #### G EN #### [facility] (DEFAULT) [address] [place] [address] 82891 PT,INR,PTTon 04-29-2024 aPTT Coag (PPP) [Time] 34.8 s High [facility] INR Coag (Bld) [Relative time] 1.4 {INR} High 0.9 - 1.1 [facility] Interpretation and review of laboratory results Abnormal [facility] PT Coag (PPP) [Time] 16.7 s High [facility] aPTT Coag (Bld) [Time] 34.8 s High 24.0-34.3 [facility] Comment on above: Performed By: #### S URGP #### [facility] (DEFAULT) [address] [place] [address] 38434 INR Coag (PPP) [Relative time] 1.4 {INR} High 0.9-1.1 [facility] Comment on above: Performed By: #### S URGP #### [facility] (DEFAULT) [address] [place] [address] 054[address] PT Coag (PPP) [Time] 16.7 s High 11.9-14.2 [facility] Comment on above: Performed By: #### S URGP #### [facility] (DEFAULT) [address] [place] [address] 79786 VENOUS BLOOD GAS PLUS LACTAT EOrdered By: Doug León on 04-29-2024 Base excess Calc (Bld) [Moles/Vol] 13.5 mmol/L High -3.0 - 3.0 mmol/L [facility] CO2 (Bld) [Partial pressure] 41 mm[Hg] [facility] HCO3 (Bld) [Moles/Vol] 36 mmol/L High 22 - 29 mmol/L [facility] Interpretation and review of laboratory results Abnormal [facility] Lactate [Moles/Vol] 0.9 mmol/L 0.5 - 1. 6 mmol/L [facility] Oxygen (Bld) [Partial pressure] 65 mm[Hg] mm Hg [facility] Comment on above: Venous pO2 is not re commended for the evaluation of oxygen status, clinical correlation is recommended. Oxygen saturation in Blood 95 % High 70 - 80 % [facility] pH (Bld) 7.55 [pH] Critically high 7.32 - 7.43 [facility] Specimen source Nom (Unsp spec) Venous [facility] VENOUS BLOOD GAS PLUS LACTAT Wes 04-29-2024 Base Excess 13.5 mmol/L High -3.0-3.0 [facility] Comment on above: Performed By: #### G ASVL #### [facility] (DEFAULT) [address] [place] [address] 21546 HCO3 (Bld) [Moles/Vol] 36 mmol/L High 22-29 [facility] Comment on above: Performed By: #### G ASVL #### [facility] (DEFAULT) [address] [place] [address] 43759 Lactate, Whole Blood 0.9 mmol/L Normal 0.5-1.6 [facility] Comment on above: Performed By: #### G ASVL #### [facility] (DEFAULT) [address] [place] [address] 26679 Oxygen saturation in Blood 95 % High 70-80 [facility] Comment on above: Performed By: #### G ASVL #### [facility] (DEFAULT) [address] [place] [address] 66107 pCO2, Venous 41 mm Hg Normal 36-52 [facility] Comment on above: Performed By: #### G ASVL #### [facility] (DEFAULT) [address] [place] [address] 65345 pH, Venous 7.55 Critically high 7.32-7.43 [facility] Comment on above: Performed By: #### G ASVL #### [facility] (DEFAULT) [address] [place] [address] 34408 pO2, Venous [address] [facility] Comment on above: Result Comment: Veno us pO2 is not recommended for the evaluation of oxygen status, clinical correlation is recommended. Performed By: #### G ASVL #### U [facility] (DEFAULT) [address] [address] Specimen type Nom (Spec) Venous Normal [facility] Comment on above: Performed By: #### G ASVL #### U [facility] (DEFAULT) [address] [place] [address] 02371 Abdomen/Pelvis W IV Cont ONL Yon 04-28-2024 Abdomen/Pelvis W IV Cont ONLY Normal [facility] CBC W/Diff, Automatedon 07- SMEAR COMMENT SCANNED Normal [facility] Comment on above: Result Comment: NEUT ROPHILIA NOTED Performed By: #### L 500.4050, L100.0100 ####[facility] [address] [place], [address] Comprehensive Metabolic Prof ilon 04-28-2024 Albumin [Mass/Vol] 2.1 g/dL Low 3.2-5.0 [facility] Comment on above: Performed By: #### L 500.4050, L100.0100 ####[facility] [address] [place], [address] Albumin/Globulin [Mass ratio] 0.5 {ratio} Low 0.9-2.4 [facility] Comment on above: Performed By: #### L 500.4050, L100.0100 ####[facility] [address] [place], [address] ALK P 121 U/L High 45-117 [facility] Comment on above: Performed By: #### L 500.4050, L100.0100 ####[facility] [address] [place], [address] ALT [Catalytic activity/Vol] 81 U/L High 16-61 [facility] Comment on above: Performed By: #### L 500.4050, L100.0100 ####[facility] [address] [place], [address] AST [Catalytic activity/Vol] 119 U/L High 15-37 [facility] Comment on above: Performed By: #### L 500.4050, L100.0100 ####[facility] [address] [place], [address] Bilirubin [Mass/Vol] 0.40 mg/dL Normal 0.20-1.00 [facility] Comment on above: Result Comment: For patients on eltrombopag therapy, use of Dimension [place] TBIL is not recommended. Performed By: #### L 500.4050, L100.0100 ####[facility] [address] [place], [address] BUN/CRE 18.5 RATIO Normal 10-20 [facility] Comment on above: Performed By: #### L 500.4050, L100.0100 ####[facility] [address] [place], [address] CA,Total 8.1 mg/dL Low 8.5-10.1 [facility] Comment on above: Performed By: #### L 500.4050, L100.0100 ####[facility] [address] [place], [address] Chloride [Moles/Vol] 97 mmol/L Low 98-107 [facility] Comment on above: Performed By: #### L 500.4050, L100.0100 ####[facility] [address] [place], [address] CO2 [Moles/Vol] 34.0 mmol/L High 21.0-32.0 [facility] Comment on above: Performed By: #### L 500.4050, L100.0100 ####[facility] [address] [place], [address] Creatinine [Mass/Vol] 0.70 mg/dL Normal 0.70-1.30 [facility] Comment on above: Result Comment: The validity of the calculated GFR GFRAA in patients over70 years has not been determined. Clinical correlation isessential. Performed By: #### L 500.4050, L100.0100 ####[facility] [address] [place], [address] ECRCL 96.81 ml/min Normal [facility] Comment on above: Performed By: #### L 500.4050, L100.0100 ####[facility] [address] [place], [address] EST GFR - AA 149 mL/min Normal >60 [facility] Comment on above: Result Comment: Afri can Andorran GFR Calc Performed By: #### L 500.4050, L100.0100 ####[facility] [address] [place], [address] GAP 6 Normal 5-15 [facility] Comment on above: Performed By: #### L 500.4050, L100.0100 ####[facility] [address] [place], [address] GFR/1.73 sq M.predicted among non-blacks MDRD (S/P/Bld) [Vol rate/Area] 123 mL/min/{1.73_m2} Normal >60 [facility] Comment on above: Result Comment: Non- GFR Calc Performed By: #### L 500.4050, L100.0100 ####[facility] [address] [place], [address] Globulin (S) [Mass/Vol] 4.1 g/dL Normal 2.2-4.2 [facility] Comment on above: Performed By: #### L 500.4050, L100.0100 ####[facility] [address] [place], [address] Glucose [Mass/Vol] 119 mg/dL High 74-106 [facility] Comment on above: Result Comment: Fast ing Glucose result from 100 to 125 mg/dLsuggests IMPAIRED HOMEOSTASIS per A.D.A. criteria. Performed By: #### L 500.4050, L100.0100 ####[facility] [address] [place], [address] Potassium [Moles/Vol] 2.5 mmol/L Invalid Interpretation Code 3.5-5.1 [facility] Comment on above: Result Comment: Crit ical Result(s) Called at: 15:07:50 04/28/2024 by: Mayela Westfall RN (). Results read back bysame. Performed By: #### L 500.4050, L100.0100 ####[facility] [address] [place], [address] Sodium [Moles/Vol] 137 mmol/L Normal 136-145 [facility] Comment on above: Performed By: #### L 500.4050, L100.0100 ####[facility] [address] [place], [address] T PROT 6.2 g/dL Low 6.4-8.2 [facility] Comment on above: Performed By: #### L 500.4050, L100.0100 ####[facility] [address] [place], [address] Urea nitrogen [Mass/Vol] 13 mg/dL Normal 7-18 [facility] Comment on above: Performed By: #### L 500.4050, L100.0100 ####[facility] [address] [place], [address] Emergency Department Summary on 04-28-2024 Emergency Department Summary Normal [facility] Urinalysis, Completeon 04-28 BACTERIA 2+ /hpf Normal None Seen [facility] Comment on above: Order Comment: COLLE CTOR TO SPECIFY Performed By: #### L 400.0001 ####[facility] [address] [place], [address] EPI,SQUAMOUS 0-5 SEEN Normal 0-5 [facility] Comment on above: Order Comment: COLLE CTOR TO SPECIFY Performed By: #### L 400.0001 ####[facility] [address] [place], [address] RBC 10-25 SEEN Normal 0-5 [facility] Comment on above: Order Comment: [facility] CTOR TO SPECIFY Performed By: #### L 400.0001 ####[facility] [address] [place], [address] WBC 25-50 SEEN Normal 0-5 [facility] Comment on above: Order Comment: [facility] CTOR TO SPECIFY Performed By: #### L 400.0001 ####[facility] [address] [place], [address] Mucus Ql (Urine sed) 0 SEEN Normal [facility] Comment on above: Order Comment: [facility] TO SPECIFY Performed By: #### L 400.0001 ####[facility] [address] [place], [address] NM BONE SCAN WHOLE BODYon NM BONE SCAN WHOLE BODY [address] [address] Patient: ANDREW POSADA Phone#: : 1965 Age: 58 Gender: M Pt. Type: Out Account: [id number] Location: 052 Ordering: JERRY MATAMOROS Exam Date: 03/11/2024/13:13 Family Phys: Charge Code: [id number] Physician: De Witt Order #: [id number] Dose#: PROCEDURE: BONE SCAN WHOLE BODY COMPARISON: [...] Hung MD on 03/11/2024 at 16:48 Normal [facility] OPERATIVE PROCEDURESon 02-25 OPERATIVE PROCEDURES [facility] OPERATIVE REPORT NAME ACCOUNT SEX AGE ADMIT DISCHARGE PT MED. RECORD# NUMBER DATE DATE TYPE TIM [id number] Ye 58 02/25/24 02/25/24 2 ANDREW [id number] ROOM: [facility] DATE OF : 1965 DICTATING PHYSICIAN: Jerry Matamoros DATE OF SURGERY: February 25, 2024 SURGEON: Jerry Matamoros MD PHARMACY MESSENGER: ANESTHESIOLOGIST: Aries Steven CRNA ANESTHETIC: PREOPERATIVE DIAGNOSIS: [...] tip of my index finger. The Olympus [id number] flexible endoscope was introduced through the anal [...] Jerry Matamoros MD 02/25/24 14:56 JOB #: [id number] Transcribed By: am 02/25/24 15:43 Electronically signed by: E-Sign Dr. Jerry Matamoros MD 02/26/24 17:30 Page 2 of 2 ANDREW POSADA Operative Report Normal [facility] C DIFF COMPLETEon 02-25-2024 C DIFF [...] specimen should be resumbitted for retesting. Normal [facility] Comment on above: Performed By: #### 2 61678 #### [facility],[address] [place] [address] APTTon 11-09-2023 aPTT Coag (Bld) [Time] 26.3 s Normal 25.4 - 38.4 [facility] Comment on above: Performed By: #### 2 71288 #### [facility],[address] [place] [address] CBC + DIFFon 11-09-2023 Baso # 0.00 x10EE3/UL Normal 0.00 - 0.10 [facility] Comment on above: Performed By: #### 2 12700 #### [facility],[address] [place] [address] Basophils/100 WBC (Bld) 0.5 % Normal 0.0 - 2.0 [facility] Comment on above: Performed By: #### 2 12830 #### [place] [address] CBC + DIFF Normal [facility] Comment on above: Result Comment: CBC- COMPLETE BLOOD COUNT Performed By: #### 2 49985 #### [place] [address] EO # 0.10 x10EE3/UL Normal 0.00 - 0.50 [facility] Comment on above: Performed By: #### 2 17943 #### [facility],[address] [place] [address] Eosinophils/100 WBC (Bld) 1.1 % Normal 0.0 - 7.0 [facility] Comment on above: Performed By: #### 2 13058 #### [place] [address] Erythrocyte distribution width (RBC) [Ratio] 14.0 % Normal 12.0 - 15.6 [facility] Comment on above: Performed By: #### 2 86605 #### [place] [address] Hematocrit (Bld) [Volume fraction] 41.7 % Normal 40.0 - 52.0 [facility] Comment on above: Performed By: #### 2 71468 #### [facility],[address] [place], [place] [id number] Hemoglobin (Bld) [Mass/Vol] 13.9 g/dL Normal 13.0 - 17.5 [facility] Comment on above: Performed By: #### 2 54111 #### [facility],[address] [place] [address] Lymph # 0.70 x10EE3/UL Low 0.80 - 2.80 [facility] Comment on above: Performed By: #### 2 25107 #### [facility],[address] [place], [place] [id number] Lymphocytes/100 WBC (Bld) 9.5 % Low 20.0 - 45.0 [facility] Comment on above: Performed By: #### 2 67095 #### [facility],[address] [place], [place] [id number] MANUAL DIFF N/A Normal [facility] Comment on above: Performed By: #### 2 14769 #### [facility],[address] [place], [place] [phone] MCH (RBC) [Entitic mass] 31 pg Normal 27 - 33 [facility] Comment on above: Performed By: #### 2 11679 #### [facility],[address] [place], [place] [id number] MCHC 33 X10 3 Normal 32 - 36 [facility] Comment on above: Performed By: #### 2 75861 #### [facility],[address] [place] [address] MCV (RBC) [Entitic vol] 92 fL Normal 81 - 98 [facility] Comment on above: Performed By: #### 2 72324 #### [facility],[address],[place] [address] Elk # 0.50 x10EE3/UL Normal 0.20 - 1.00 [facility] Comment on above: Performed By: #### 2 14860 #### [facility],[address] [place] [address] MONOS % 6.3 % Normal 0.0 - 10.0 [facility] Comment on above: Performed By: #### 2 99745 #### [facility],[address] [place] [address] Morphology Leonard (Bld) [Interp] N/A Normal [facility] Comment on above: Result Comment: {CD] Performed By: #### 2 44330 #### [place] [address] Neut # 6.40 x10EE3/UL Normal 1.50 - 7.10 [facility] Comment on above: Performed By: #### 2 71941 #### [place] [id number] Neutrophils/100 WBC (Bld) 82.6 % High 46.0 - 76.0 [facility] Comment on above: Performed By: #### 2 46299 #### [place] [id number] PLATELET 351 x10EE3/UL Normal 150 - 450 [facility] Comment on above: Performed By: #### 2 35691 #### [facility],[address] [place] [address] Platelet mean volume (Bld) [Entitic vol] 6.6 fL Normal 6.4 - 10.5 [facility] Comment on above: Result Comment: AUTO MATED DIFFERENTIAL Performed By: #### 2 25273 #### [address] [address] RBC 4.56 x 10EE6/UL Normal 4.50 - 6.00 [facility] Comment on above: Performed By: #### 2 87649 #### [facility] [place] [address] WBC 7.8 x 10EE3/UL Normal 4.5 - 10.8 [facility] Comment on above: Performed By: #### 2 54586 #### [facility],[address] [place] [address] CMP with eGFRon 11-09-2023 AGE 57 years Normal [facility] Comment on above: Performed By: #### 2 75446 #### [facility],[address] [place] [address] Albumin [Mass/Vol] 3.1 g/dL Low 3.4 - 5.0 [facility] Comment on above: Performed By: #### 2 57824 #### [facility],[address] [place] [address] Albumin/Globulin [Mass ratio] 0.8 {ratio} Low 0.9 - 1.6 [facility] Comment on above: Performed By: #### 2 04657 #### [facility],[address] [place] [address] ALK PHOS 91 U/L Normal 46 - 116 [facility] Comment on above: Performed By: #### 2 96233 #### [facility],[address] [place] [address] ALT [Catalytic activity/Vol] 23 U/L Normal 16 - 63 [facility] Comment on above: Performed By: #### 2 95185 #### [facility],[address] [place] [address] Anion gap [Moles/Vol] 11 mmol/L Normal 10 - 20 [facility] Comment on above: Performed By: #### 2 31174 #### [facility],[address] [place] [address] AST [Catalytic activity/Vol] 12 U/L Low 15 - 37 [facility] Comment on above: Performed By: #### 2 67541 #### [facility],[address] [place] [address] B/C RATIO 15 ratio Normal 0 - 30 [facility] Comment on above: Performed By: #### 2 88703 #### [facility],[address] [place] [address] Bilirubin [Mass/Vol] 0.8 mg/dL Normal 0.2 - 1.0 [facility] Comment on above: Performed By: #### 2 06287 #### [facility],[address] [place] [address] Calcium [Mass/Vol] 8.9 mg/dL Normal 8.5 - 10.1 [facility] Comment on above: Performed By: #### 2 53808 #### [facility],[address] [place] [address] Chloride [Moles/Vol] 102 mmol/L Normal 98 - 107 [facility] Comment on above: Performed By: #### 2 27595 #### [facility],[address] [place] [address] CMP with eGFR Normal [facility] Comment on above: Result Comment: COMP REHENSIVE METABOLIC PANEL Performed By: #### 2 34647 #### [facility],[address] [place] [address] CO2 [Moles/Vol] 28.3 mmol/L Normal 21.0 - 32.0 [facility] Comment on above: Performed By: #### 2 51305 #### [facility],[address] [place] [address] Creatinine [Mass/Vol] 0.87 mg/dL Normal 0.70 - 1.30 [facility] Comment on above: Performed By: #### 2 11374 #### [facility],[address] [place] [address] GFR/1.73 sq M.predicted among non-blacks MDRD (S/P/Bld) [Vol rate/Area] mL/min/{1.73_m2} Normal 60 - 999 [facility] Comment on above: Performed By: #### 2 84777 #### [address] [address] Result Comment: ACCO RDING TO THE NATIONAL KIDNEY DISEASE EDUCATION PROGRAM(NKDE), A NORMAL eGFR IS A VALUE GREATER THAN OR EQUAL TO 60 ML/MIN/1.73 SQ METERS. CHRONIC KIDNEY DISEASE: <60mL/MIN/1.73 SQ METERS KIDNEY FAILURE: <15mL/MIN/1.73 SQ METERS THIS TEST SHOULD ONLY BE USED FOR PATIENTS 18 YEARS OF AGE AND OLDER. Globulin (S) [Mass/Vol] 3.8 g/dL Normal 1.5 - 3.8 [facility] Comment on above: Performed By: #### 2 26381 #### [address] [address] Glucose [Mass/Vol] 97 mg/dL Normal 74 - 106 [facility] Comment on above: Performed By: #### 2 84359 #### [address] [address] Potassium [Moles/Vol] 3.8 mmol/L Normal 3.5 - 5.1 [facility] Comment on above: Performed By: #### 2 42989 #### [address] [address] Protein [Mass/Vol] 6.9 g/dL Normal 6.4 - 8.2 [facility] Comment on above: Performed By: #### 2 91965 #### [address] [address] Sodium [Moles/Vol] 137 mmol/L Normal 136 - 145 [facility] Comment on above: Performed By: #### 2 77494 #### [address] [address] Urea nitrogen [Mass/Vol] 13 mg/dL Normal 7 - 18 [facility] Comment on above: Performed By: #### 2 86782 #### [facility], [facility],[address] [place] [address] ABDOMEN/PELVIS Won 2023 CT ABDOMEN/PELVIS [address] [address] Patient: ANDREW POSADA Phone#: : 1965 Age: 57 Gender: M Pt. Type: ER Account: [id number] Location: [facility] Ordering: STEPHANIE ROUSSEAU Exam Date: 11/09/2023/9:18 Family Phys: Charge Code: [id number] Physician: De Witt Order #: [id number] Dose#: 9.8 mGy PROCEDURE: CT ABDOMEN/PELVIS WITH [...] 57 Gender: M Pt. Type: ER Account: [id number] Location: 052 Ordering: STEPHANIE ROUSSEAU Exam Date: 11/09/2023/9:18 Family Phys: Charge Code: [id number] Physician: De Witt Order #: [id number] Dose#: 9.8 mGy OTHER: Negative. CONCLUSION: 1. Under filling versus mucosal thickening at the rectosigmoid colon. 2. Large volume stool retention. Dictated by: Kelli Hung MD on 11/10/2023 at 9:52 Approved by: Kelli Hung MD on 11/10/2023 at 9:56 Normal [facility] LIPASEon 11-09-2023 Lipase [Catalytic activity/Vol] 45.0 U/L Normal 15.0 - 78.0 [facility] Comment on above: Result Comment: *PLE ASE NOTE THAT RANGES FOR LIPASE HAVE CHANGED OF 10/17/23 DUE TO AN ASSAY UPDATE BY THE NEONATAL INTENSIVE CARE NURSE.THE NEW ASSAY RANGE IS 6-250 U/L, WITH A REFERENCE RANGE OF 16-77 U/L. Performed By: #### 2 86847 #### [place] [id number] PROTHROMBIN TIME AND INRon 0 11-09-2023 INR Coag (PPP) [Relative time] 1.0 {INR} Normal 0.8 - 1.2 [facility] Comment on above: Result Comment: T [...] MECHANICAL HEART VALVES Performed By: #### 2 86763 #### [facility],[address] [place], [place] [phone] PROTHROMBIN TIME AND INR Normal [facility] Comment on above: Result Comment: PROT HROMBIN TIME AND INR Performed By: #### 2 31912 #### [address] [address] PT-COUMADIN 12.2 sec Normal 9.3 - 14.1 [facility] Comment on above: Performed By: #### 2 96231 #### [address] [address] CRYPTOSPORIDIUM & GIARDIA AG EIA [CCL]on 10-24-2023 CRYPTOSPORIDIUM ANTIGENBY EIA See Below Normal Negative [facility] Comment on above: Result Comment: CRYP TOSPORIDIUM ANTIGEN BY EIA Negative for Cryptosporidium by EIA. GIARDIA ANTIGEN BY EIA Negative for Giardia lamblia by EIA. SOURCE: FECES [facility] [address] [place] [address] Alan Vasquez III, M.D. [id number] Performed By: #### 2 81162 #### [address] [address] OVA & PARASITE EXAM [CCL]on 10-24-2023 OVA AND PARASITE EXAM See Below Normal [facility] Comment on above: Result Comment: OVA AND PARASITE EXAM No Parasites Seen SOURCE: FECES [facility] [address] [place] [address] Alan Vasquez III, M.D. [id number] Performed By: #### 2 72421 #### [address] [address] CLOSTRIDIUM DIFFICLE TOXIN P CR [CCL]on 10-23-2023 C difficile PCR Positive Abnormal Negative for C. difficile [facility] Comment on above: Result Comment: A po sitive PCR result may indicate C. difficile infection or colonization. The positive predictive value of this test for C. difficile infection is highest for patients with clinically significant diarrhea (>=3 unformed stools in 24 h) who do not have an alternative explanation (e.g., recent receipt of laxatives). [facility] [address] [place] [address] Alan Vasquez III, M.D. [id number] Performed By: #### 2 95564 #### [facility],[address] [place], [place] [phone] No Panel Informationon 10-23 Shiga Toxins 1 and 2 See Note Normal [facility] Work Phone: Laboratory - Microbiology an d Antimicrobial susceptibilityon 10-22-2023 Bacteria identified Cx Nom (Bld) See Note Normal [facility] Work Phone: STOOL CULTURE [FADI]on Stool culture STOOL CULTURE [AULTM AN] 10/27/23.1248.DNP.COMPLETE Normal [facility] Comment on above: Performed By: #### 2 28517 ####[facility],[address] [place], [place] [phone] No Panel Informationon 10-21 C difficile PCR Positive Abnormal [facility], [facility]. CRYPTOSPORIDIUM ANTIGENBY EIA See Below Normal [facility], [facility] Culture Stool See Note Normal [facility], [facility] OVA AND PARASITE EXAM See Below Normal [facility], [facility] Vital Signs Date Time Vital Sign Value Performing Clinician Faci lity 03-01-2025 13:28-0400 Body temperature 98.5 [degF] No Primary Care Physician [facility] 03-01-2025 13:28-0400 Diastolic blood pressure 98 mm[Hg] No Primary Care Physician [facility] 03-01-2025 13:28-0400 Heart rate 79 /min No Primary Care Physician [facility] 03-01-2025 13:28-0400 Respiratory rate 16 /min No Primary Care Physician [facility] 03-01-2025 13:28-0400 SaO2% (BldA) [Mass fraction] 94 % No Primary Care Physician [facility] 03-01-2025 13:28-0400 Systolic blood pressure 139 mm[Hg] No Primary Care Physician [facility] 03-01-2025 05:34-0400 Body mass index (BMI) [Ratio] 16.4 kg/m2 No Primary Care Physician [facility] 03-01-2025 05:34-0400 Body weight 49.2 kg No Primary Care Physician [facility] 02-28-2025 11:43-0400 Body height 173 cm No Primary Care Physician [facility] 02-25-2025 17:00-0400 Inhaled oxygen flow rate 2 L/min No Primary Care Physician [facility] 02-24-2025 11:34-0400 Body temperature 98.3 [degF] No Primary Care Physician [facility] 02-24-2025 11:34-0400 Diastolic blood pressure 107 mm[Hg] No Primary Care Physician [facility] 02-24-2025 11:34-0400 Heart rate 78 /min No Primary Care Physician [facility] 02-24-2025 11:34-0400 Respiratory rate 16 /min No Primary Care Physician [facility] 02-24-2025 11:34-0400 SaO2% (BldA) [Mass fraction] 96 % No Primary Care Physician [facility] 02-24-2025 11:34-0400 Systolic blood pressure 161 mm[Hg] No Primary Care Physician [facility] 02-24-2025 06:52-0400 Body height 172.72 cm No Primary Care Physician [facility] 02-24-2025 06:52-0400 Body mass index (BMI) [Ratio] 16.1 kg/m2 No Primary Care Physician [facility] 02-24-2025 06:52-0400 Body weight 48.2 kg No Primary Care Physician [facility] 02-22-2025 12:56-0400 Body height 172.7 cm Greg Mason MD Work Phone: [facility] 02-22-2025 12:56-0400 Body mass index (BMI) [Ratio] 17.49 kg/m2 Greg Mason MD Work Phone: [facility] 02-22-2025 12:56-0400 Body weight 52.16 kg Greg Mason MD Work Phone: [facility] 02-22-2025 12:56-0400 Heart rate 75 /min Greg Mason MD Work Phone: [facility] 02-22-2025 12:56-0400 SaO2% (BldA) [Mass fraction] 98 % Greg Mason MD Work Phone: [facility] 02-14-2025 09:44-0400 Body mass index (BMI) [Ratio] 17.2 kg/m2 No Primary Care Physician [facility] 02-14-2025 09:44-0400 Body temperature 98.8 [degF] No Primary Care Physician [facility] 02-14-2025 09:44-0400 Body weight 51.45 kg No Primary Care Physician [facility] 02-14-2025 09:44-0400 Diastolic blood pressure 82 mm[Hg] No Primary Care Physician [facility] 02-14-2025 09:44-0400 Heart rate 57 /min No Primary Care Physician [facility] 02-14-2025 09:44-0400 Respiratory rate 18 /min No Primary Care Physician [facility] 02-14-2025 09:44-0400 SaO2% (BldA) [Mass fraction] 97 % No Primary Care Physician [facility] 02-14-2025 09:44-0400 Systolic blood pressure 148 mm[Hg] No Primary Care Physician [facility] 02-11-2025 10:26-0400 Body temperature 97.5 [degF] No Primary Care Physician [facility] 02-11-2025 10:26-0400 Diastolic blood pressure 85 mm[Hg] No Primary Care Physician [facility] 02-11-2025 10:26-0400 Heart rate 62 /min No Primary Care Physician [facility] 02-11-2025 10:26-0400 Respiratory rate 16 /min No Primary Care Physician [facility] 02-11-2025 10:26-0400 SaO2% (BldA) [Mass fraction] 98 % No Primary Care Physician [facility] 02-11-2025 10:26-0400 Systolic blood pressure 166 mm[Hg] No Primary Care Physician [facility] 01-31-2025 09:46-0400 Body mass index (BMI) [Ratio] 18.1 kg/m2 No Primary Care Physician [facility] 01-31-2025 09:46-0400 Body temperature 98.6 [degF] No Primary Care Physician [facility] 01-31-2025 09:46-0400 Body weight 53.97 kg No Primary Care Physician [facility] 01-31-2025 09:46-0400 Diastolic blood pressure 76 mm[Hg] No Primary Care Physician [facility] 01-31-2025 09:46-0400 Heart rate 59 /min No Primary Care Physician [facility] 01-31-2025 09:46-0400 Respiratory rate 18 /min No Primary Care Physician [facility] 01-31-2025 09:46-0400 SaO2% (BldA) [Mass fraction] 98 % No Primary Care Physician [facility] 01-31-2025 09:46-0400 Systolic blood pressure 122 mm[Hg] No Primary Care Physician [facility] 01-17-2025 09:26-0400 Body mass index (BMI) [Ratio] 18.1 kg/m2 No Primary Care Physician [facility] 01-17-2025 09:26-0400 Body temperature 98.5 [degF] No Primary Care Physician [facility] 01-17-2025 09:26-0400 Body weight 54.11 kg No Primary Care Physician [facility] 01-17-2025 09:26-0400 Diastolic blood pressure 76 mm[Hg] No Primary Care Physician [facility] 01-17-2025 09:26-0400 Heart rate 61 /min No Primary Care Physician [facility] 01-17-2025 09:26-0400 Respiratory rate 18 /min No Primary Care Physician [facility] 01-17-2025 09:26-0400 SaO2% (BldA) [Mass fraction] 97 % No Primary Care Physician [facility] 01-17-2025 09:26-0400 Systolic blood pressure 121 mm[Hg] No Primary Care Physician [facility] 01-03-2025 09:34-0400 Body mass index (BMI) [Ratio] 18.1 kg/m2 No Primary Care Physician [facility] 01-03-2025 09:34-0400 Body temperature 98.7 [degF] No Primary Care Physician [facility] 01-03-2025 09:34-0400 Body weight 54.06 kg No Primary Care Physician [facility] 01-03-2025 09:34-0400 Diastolic blood pressure 81 mm[Hg] No Primary Care Physician [facility] 01-03-2025 09:34-0400 Heart rate 61 /min No Primary Care Physician [facility] 01-03-2025 09:34-0400 Respiratory rate 18 /min No Primary Care Physician [facility] 01-03-2025 09:34-0400 SaO2% (BldA) [Mass fraction] 95 % No Primary Care Physician [facility] 01-03-2025 09:34-0400 Systolic blood pressure 130 mm[Hg] No Primary Care Physician [facility] 12-28-2024 08:15-0400 Body mass index (BMI) [Ratio] 17.4 kg/m2 No Primary Care Physician [facility] 12-28-2024 08:15-0400 Body temperature 98.9 [degF] No Primary Care Physician [facility] 12-28-2024 08:15-0400 Body weight 51.93 kg No Primary Care Physician [facility] 12-28-2024 08:15-0400 Diastolic blood pressure 82 mm[Hg] No Primary Care Physician [facility] 12-28-2024 08:15-0400 Heart rate 80 /min No Primary Care Physician [facility] 12-28-2024 08:15-0400 Respiratory rate 16 /min No Primary Care Physician [facility] 12-28-2024 08:15-0400 SaO2% (BldA) [Mass fraction] 95 % No Primary Care Physician [facility] 12-28-2024 08:15-0400 Systolic blood pressure 126 mm[Hg] No Primary Care Physician [facility] 12-20-2024 09:16-0500 Body mass index (BMI) [Ratio] 18.7 kg/m2 No Primary Care Physician [facility] 12-20-2024 09:16-0500 Body temperature 98.7 [degF] No Primary Care Physician [facility] 12-20-2024 09:16-0500 Body weight 55.96 kg No Primary Care Physician [facility] 12-20-2024 09:16-0500 Diastolic blood pressure 87 mm[Hg] No Primary Care Physician [facility] 12-20-2024 09:16-0500 Heart rate 60 /min No Primary Care Physician [facility] 12-20-2024 09:16-0500 Respiratory rate 16 /min No Primary Care Physician [facility] 12-20-2024 09:16-0500 SaO2% (BldA) [Mass fraction] 95 % No Primary Care Physician [facility] 12-20-2024 09:16-0500 Systolic blood pressure 147 mm[Hg] No Primary Care Physician [facility] 12-06-2024 09:37-0500 Body mass index (BMI) [Ratio] 18.8 kg/m2 No Primary Care Physician [facility] 12-06-2024 09:37-0500 Body temperature 97.8 [degF] No Primary Care Physician [facility] 12-06-2024 09:37-0500 Body weight 56.24 kg No Primary Care Physician [facility] 12-06-2024 09:37-0500 Diastolic blood pressure 86 mm[Hg] No Primary Care Physician [facility] 12-06-2024 09:37-0500 Heart rate 58 /min No Primary Care Physician [facility] 12-06-2024 09:37-0500 Respiratory rate 16 /min No Primary Care Physician [facility] 12-06-2024 09:37-0500 SaO2% (BldA) [Mass fraction] 97 % No Primary Care Physician [facility] 12-06-2024 09:37-0500 Systolic blood pressure 139 mm[Hg] No Primary Care Physician [facility] 11-22-2024 09:36-0500 Body mass index (BMI) [Ratio] 18.3 kg/m2 No Primary Care Physician [facility] 11-22-2024 09:36-0500 Body temperature 98.2 [degF] No Primary Care Physician [facility] 11-22-2024 09:36-0500 Body weight 54.57 kg No Primary Care Physician [facility] 11-22-2024 09:36-0500 Diastolic blood pressure 84 mm[Hg] No Primary Care Physician [facility] 11-22-2024 09:36-0500 Heart rate 56 /min No Primary Care Physician [facility] 11-22-2024 09:36-0500 Respiratory rate 18 /min No Primary Care Physician [facility] 11-22-2024 09:36-0500 SaO2% (BldA) [Mass fraction] 100 % No Primary Care Physician [facility] 11-22-2024 09:36-0500 Systolic blood pressure 142 mm[Hg] No Primary Care Physician [facility] 11-08-2024 08:26-0500 Body mass index (BMI) [Ratio] 18.3 kg/m2 No Primary Care Physician [facility] 11-08-2024 08:26-0500 Body temperature 98.9 [degF] No Primary Care Physician [facility] 11-08-2024 08:26-0500 Body weight 54.62 kg No Primary Care Physician [facility] 11-08-2024 08:26-0500 Diastolic blood pressure 78 mm[Hg] No Primary Care Physician [facility] 11-08-2024 08:26-0500 Heart rate 64 /min No Primary Care Physician [facility] 11-08-2024 08:26-0500 Respiratory rate 18 /min No Primary Care Physician [facility] 11-08-2024 08:26-0500 SaO2% (BldA) [Mass fraction] 98 % No Primary Care Physician [facility] 11-08-2024 08:26-0500 Systolic blood pressure 132 mm[Hg] No Primary Care Physician [facility] 11-05-2024 09:43-0500 Body mass index (BMI) [Ratio] 18 kg/m2 No Primary Care Physician [facility] 11-05-2024 09:43-0500 Body temperature 97.2 [degF] No Primary Care Physician [facility] 11-05-2024 09:43-0500 Body weight 53.97 kg No Primary Care Physician [facility] 11-05-2024 09:43-0500 Diastolic blood pressure 70 mm[Hg] No Primary Care Physician [facility] 11-05-2024 09:43-0500 Heart rate 62 /min No Primary Care Physician [facility] 11-05-2024 09:43-0500 Respiratory rate 16 /min No Primary Care Physician [facility] 11-05-2024 09:43-0500 SaO2% (BldA) [Mass fraction] 99 % No Primary Care Physician [facility] 11-05-2024 09:43-0500 Systolic blood pressure 128 mm[Hg] No Primary Care Physician [facility] 11-03-2024 08:58-0500 Body mass index (BMI) [Ratio] 17.9 kg/m2 No Primary Care Physician [facility] 11-03-2024 08:58-0500 Body temperature 97.3 [degF] No Primary Care Physician [facility] 11-03-2024 08:58-0500 Body weight 53.6 kg No Primary Care Physician [facility] 11-03-2024 08:58-0500 Diastolic blood pressure 82 mm[Hg] No Primary Care Physician [facility] 11-03-2024 08:58-0500 Heart rate 52 /min No Primary Care Physician [facility] 11-03-2024 08:58-0500 Respiratory rate 16 /min No Primary Care Physician [facility] 11-03-2024 08:58-0500 SaO2% (BldA) [Mass fraction] 100 % No Primary Care Physician [facility] 11-03-2024 08:58-0500 Systolic blood pressure 141 mm[Hg] No Primary Care Physician [facility] 10-29-2024 11:02-0500 Body height 172.7 cm Hilary Lewis MD Work Phone: [facility] 10-29-2024 11:02-0500 Body mass index (BMI) [Ratio] 17.33 kg/m2 Hilary Lewis MD Work Phone: [facility] 10-29-2024 11:02-0500 Body weight 51.71 kg Hilary Lewis MD Work Phone: [facility] 10-29-2024 11:02-0500 Diastolic blood pressure 86 mm[Hg] Hilary Lewis MD Work Phone: [facility] 10-29-2024 11:02-0500 Heart rate 58 /min Hilary Lewis MD Work Phone: [facility] 10-29-2024 11:02-0500 Systolic blood pressure 129 mm[Hg] Hilary Lewis MD Work Phone: [facility] 10-22-2024 14:12-0500 Body height 172.7 cm Greg Mason MD Work Phone: [facility] 10-22-2024 14:12-0500 Body mass index (BMI) [Ratio] 17.03 kg/m2 Greg Mason MD Work Phone: [facility] 10-22-2024 14:12-0500 Body weight 50.8 kg Greg Mason MD Work Phone: [facility] 10-22-2024 14:12-0500 Heart rate 65 /min Greg Mason MD Work Phone: [facility] 10-22-2024 14:12-0500 SaO2% (BldA) [Mass fraction] 99 % Greg Mason MD Work Phone: [facility] 10-18-2024 07:28-0500 Body temperature 98.4 [degF] Hilary Lewis MD Work Phone: [facility] 10-18-2024 07:28-0500 Diastolic blood pressure 78 mm[Hg] Hilary Lewis MD Work Phone: [facility] 10-18-2024 07:28-0500 Heart rate 50 /min Hilary Lewis MD Work Phone: [facility] 10-18-2024 07:28-0500 Respiratory rate 14 /min Hilary Lewis MD Work Phone: [facility] 10-18-2024 07:28-0500 SaO2% (BldA) [Mass fraction] 97 % Hilary Lewis MD Work Phone: [facility] 10-18-2024 07:28-0500 Systolic blood pressure 128 mm[Hg] Hilary Lewis MD Work Phone: [facility] 10-11-2024 23:23-0500 Body height 172.7 cm Hilary Lewis MD Work Phone: [facility] 10-11-2024 23:23-0500 Body mass index (BMI) [Ratio] 16.48 kg/m2 Hilary Lewis MD Work Phone: [facility] 10-11-2024 23:23-0500 Body weight 49.17 kg Hilary Lewis MD Work Phone: [facility] 10-06-2024 15:54-0500 Diastolic blood pressure 80 mm[Hg] Shruthi Welch SOUND CONTROLLER-HORTICULTURE/FLORICULTURE TEACHER Work Phone: [facility] 10-06-2024 15:54-0500 Heart rate 84 /min Shruthi Welch SOUND CONTROLLER-HORTICULTURE/FLORICULTURE TEACHER Work Phone: [facility] 10-06-2024 15:54-0500 Systolic blood pressure 151 mm[Hg] Shruthi Welch SOUND CONTROLLER-HORTICULTURE/FLORICULTURE TEACHER Work Phone: [facility] 10-01-2024 08:46-0500 Body mass index (BMI) [Ratio] 17.2 kg/m2 No Primary Care Physician [facility] 09-01-2024 14:27-0500 Body height 172.7 cm Hilary Lewis MD Work Phone: [facility] 09-01-2024 14:27-0500 Body mass index (BMI) [Ratio] 17.49 kg/m2 Hilary Lewis MD Work Phone: [facility] 09-01-2024 14:27-0500 Body weight 52.16 kg Hilary Lewis MD Work Phone: 8(911)705-983503 [place] [address] 09-01-2024 14:27-0500 Diastolic blood pressure 70 mm[Hg] Hilary Lewis MD Work Phone: 7(885)101-452003 [place] [address] 09-01-2024 14:27-0500 Heart rate 48 /min Hilary Lewis MD Work Phone: 3(444)246-664903 [place] [address] 09-01-2024 14:27-0500 Systolic blood pressure 117 mm[Hg] Hilary Lewis MD Work Phone: 2(783)300-207903 [place] [address] 06-25-2024 12:20-0400 Diastolic blood pressure 88 mm[Hg] Hilary Lewis MD Work Phone: 4(084)725-301503 [place] [address] 06-25-2024 12:20-0400 Heart rate 58 /min Hilary Lewis MD Work Phone: 3(766)287-695003 [place] [address] 06-25-2024 12:20-0400 Respiratory rate 15 /min Hilary Lewis MD Work Phone: 8(808)596-217503 [place] [address] 06-25-2024 12:20-0400 SaO2% (BldA) [Mass fraction] 96 % Hilary Lewis MD Work Phone: 7(670)049-257203 [place] [address] 06-25-2024 12:20-0400 Systolic blood pressure 126 mm[Hg] Hilary Lewis MD Work Phone: 3(291)426-644703 [place] [address] 06-25-2024 12:07-0400 Body temperature 98.2 [degF] Hilary Lewis MD Work Phone: 3(874)388-685503 [place] [address] 06-25-2024 10:25-0400 Body height 172.7 cm Hilary Lewis MD Work Phone: 1(616)319-175803 [place] [address] 06-25-2024 10:25-0400 Body mass index (BMI) [Ratio] 19.19 kg/m2 Hilary Lewis MD Work Phone: [facility] 06-25-2024 10:25-0400 Body weight 57.24 kg Hilary Lewis MD Work Phone: [facility] 05-20-2024 13:38-0400 Body height 172.7 cm Hilary Lewis MD Work Phone: 4(308)541-886193 [address] 05-20-2024 13:38-0400 Body mass index (BMI) [Ratio] 18.55 kg/m2 Hilary Lewis MD Work Phone: 4(190)675-875393 [address] 05-20-2024 13:38-0400 Body weight 55.34 kg Hilary Lewis MD Work Phone: 8(984)567-063793 [address] 05-20-2024 13:38-0400 Diastolic blood pressure 72 mm[Hg] Hilary Lewis MD Work Phone: [facility] 05-20-2024 13:38-0400 Heart rate 49 /min Hilary Lewis MD Work Phone: 1(729)026-725093 [address] Comment on above: thinks it could be the medication he on, he feels normal 05-20-2024 13:38-0400 Systolic blood pressure 134 mm[Hg] Hilary Lewis MD Work Phone: 5(883)760-136993 [address] 05-20-2024 12:03-0400 Diastolic blood pressure 77 mm[Hg] Hilary Lewis MD Work Phone: 8(777)731-744793 [address] 05-20-2024 12:03-0400 Heart rate 51 /min Hilary Lewis MD Work Phone: [facility] 05-20-2024 12:03-0400 Systolic blood pressure 125 mm[Hg] Hilary Lewis MD Work Phone: 6(174)246-802693 [address] 05-12-2024 08:17-0400 Body height 172.7 cm Anjali Denton APRN-HORTICULTURE/FLORICULTURE TEACHER Work Phone: [facility] 05-12-2024 08:17-0400 Body mass index (BMI) [Ratio] 17.55 kg/m2 Anjali Denton SOUND CONTROLLER-HORTICULTURE/FLORICULTURE TEACHER Work Phone: [facility] 05-12-2024 08:17-0400 Body weight 52.34 kg Anjali Denton SOUND CONTROLLER-HORTICULTURE/FLORICULTURE TEACHER Work Phone: [facility] 05-12-2024 08:17-0400 Heart rate 73 /min Anjali Denton APRN-HORTICULTURE/FLORICULTURE TEACHER Work Phone: [facility] 05-12-2024 08:17-0400 SaO2% (BldA) [Mass fraction] 98 % Anjali Denton APRN-HORTICULTURE/FLORICULTURE TEACHER Work Phone: [facility] 05-09-2024 11:24-0400 Body temperature 97.9 [degF] Hilary Lewis MD Work Phone: [facility] 05-09-2024 11:24-0400 Diastolic blood pressure 64 mm[Hg] Hilary Lewis MD Work Phone: [facility] 05-09-2024 11:24-0400 Heart rate 81 /min Hilary Lewis MD Work Phone: [facility] 05-09-2024 11:24-0400 Respiratory rate 16 /min Hilary Lewis MD Work Phone: [facility] 05-09-2024 11:24-0400 SaO2% (BldA) [Mass fraction] 97 % Hilary Lewis MD Work Phone: [facility] 05-09-2024 11:24-0400 Systolic blood pressure 129 mm[Hg] Hilary Lewis MD Work Phone: [facility] 05-03-2024 15:50-0400 Body mass index (BMI) [Ratio] 17.74 kg/m2 Hilary Lewis MD Work Phone: [facility] 05-03-2024 15:50-0400 Body weight 52.94 kg Hilary Lewis MD Work Phone: [facility] 04-30-2024 14:00-0400 Body height 172.7 cm Hilary Lewis MD Work Phone: [facility] 04-30-2024 13:00-0400 Diastolic blood pressure 77 mm[Hg] Kj Martinez MD Work Phone: [facility] 04-30-2024 13:00-0400 Heart rate 67 /min Kj Martinez MD Work Phone: 2(190)883-847868 [place] [address] 04-30-2024 13:00-0400 Respiratory rate 21 /min Kj Martinez MD Work Phone: [facility] 04-30-2024 13:00-0400 SaO2% (BldA) [Mass fraction] 93 % Kj Martinez MD Work Phone: [facility] 04-30-2024 13:00-0400 Systolic blood pressure 142 mm[Hg] Kj Martinez MD Work Phone: [facility] 04-29-2024 20:00-0400 Body temperature 99.1 [degF] Kj Martinez MD Work Phone: [facility] 04-29-2024 00:06-0400 Body height 172.7 cm Kj Martinez MD Work Phone: [facility] 11-26-2023 15:04-0500 Body height 172.72 cm Gregoria Cummings [facility]. 11-26-2023 15:04-0500 Body mass index (BMI) [Ratio] 22.2 kg/m2 Gregoria Cummings RN [facility].; [facility]. 11-26-2023 15:04-0500 Body surface area Derived from formula 1.79 m2 Gregoria Cummings RN [facility].; [facility] 11-26-2023 15:04-0500 Body temperature 98.2 [degF] Gregoria Cummings [facility] Comment on above: Method: Oral 11-26-2023 [id number] Body weight 66.23 kg Gregoria Cummings RN [facility].; [facility]. 11-26-2023 15:04-0500 Diastolic blood pressure 84 mm[Hg] Gregoria Cummings RN [facility].; [facility] Comment on above: Patient Position: Sitting; Cuff Location : Left Arm; Cuff Size: Large 11-26-2023 15:04-0500 Heart rate 56 /min Gregoria Cummings RN [facility].; [facility]. Comment on above: Pattern: Regular 11-26-2023 15:04-0500 Systolic blood pressure 153 mm[Hg] Gregoria Cummings RN [facility].; [facility]. Comment on above: Patient Position: Sitting; Cuff Location : Left Arm; Cuff Size: Large 10-17-2023 15:03-0500 Body height 172.72 cm ELLY BENOIT Work Phone: [facility]; [facility] 10-17-2023 15:03-0500 Body mass index (BMI) [Ratio] 22.5 kg/m2 ELLY CASTELLON-Claire Work Phone: [facility] [employer] [facility]. 10-17-2023 15:03-0500 Body surface area Derived from formula 1.8 m2 ELLY MAGDAMAGALISHUSSEINER CASSANDRA DEVELOPER-C Work Phone: [facility] [employer] [facility]. 10-17-2023 15:03-0500 Body temperature 98.3 [degF] ELLY LOVETETTER CASSANDRA DEVELOPER-C Work Phone: [facility].; [employer] [facility]. Comment on above: Method: Oral 10-17-2023 15:03-0500 Body weight 67.13 kg ELLY IVANCRUZHUSSEINER CASSANDRA DEVELOPER-C Work Phone: [facility] [employer] [facility] 10-17-2023 15:03-0500 Diastolic blood pressure 100 mm[Hg] ELLY MANARGENISTETTER CASSANDRA DEVELOPER-C Work Phone: [facility] [employer] [facility]. Comment on above: Patient Position: Sitting; Cuff Location : Left Arm; Cuff Size: Large 10-17-2023 15:03-0500 Heart rate 68 /min ELLY BELLAMY CASSANDRA DEVELOPER-C Work Phone: [facility]; [employer] [facility]. Comment on above: Pattern: Regular 10-17-2023 15:03-0500 Systolic blood pressure 168 mm[Hg] ELLY LOVETEHUSSEINER CASSANDRA DEVELOPER-C Work Phone: [facility] [employer] [facility]. Comment on above: Patient Position: Sitting; Cuff Location : Left Arm; Cuff Size: Large Encounters Encounter Date Encounter Type Care Provider Facility Start: 03-10-2025 End: 03-10-2025 ambulatory Kunal Chandler Facility:[facility] Start: 03-06-2025 End: 03-06-2025 Historical Summary ELLY MANSolfoTETTER CASSANDRA DEVELOPER-C [facility] Start: 03-01-2025 Non-patient / Non-visit Dr. Handy Royal MD [facility] Work Phone: Start: 03-01-2025 Non-patient / Non-visit Rachael Tierney PA-C [facility] Start: 02-28-2025 Non-patient / Non-visit Dr. Handy Royal MD [facility] Work Phone: Start: 02-28-2025 Non-patient / Non-visit Rachael Tierney PA-C [facility] Start: 02-27-2025 Non-patient / Non-visit Dr. Handy Royal MD [facility] Work Phone: Start: 02-27-2025 [facility] Start: 02-26-2025 Non-patient / Non-visit Dr. Handy Royal MD [facility] Work Phone: Start: 02-26-2025 [facility] Start: 02-25-2025 Non-patient / Non-visit Dr. Handy Royal MD [facility] Work Phone: Start: 02-25-2025 [facility] Start: 02-24-2025 Non-patient / Non-visit Dr. Kunal Chandler MD [facility] Start: 02-24-2025 End: 02-24-2025 ambulatory No Primary Care Physician Facility:[facility] Start: 02-24-2025 ambulatory Kunal Chandler Facility :[facility] Start: 02-24-2025 End: 03-01-2025 Evaluation and management of inpatient Dr. Handy Royal MD -[facility] Work Phone: Start: 02-22-2025 End: 02-22-2025 Office outpatient visit 25 minutes Greg Mason MD Work Phone: [facility] Comment on above: Ureteral stricture ( Primary Dx) Start: 02-22-2025 ambulatory SELF SELF Facility:[facility] Start: 02-16-2025 ambulatory No Primary Car e Physician Facility:[facility] Start: 02-16-[address] Guy Ho MD -[facility] Start: 02-14-2025 End: 02-14-[address] Guy Ho MD -[facility] Work Phone: Start: 02-14-2025 End: 02-14-2025 ambulatory No Primary Care Physician Facility:[facility] Start: 01-31-2025 End: 01-31-[address] Guy Ho MD -[facility] Work Phone: Start: 01-31-2025 End: 01-31-2025 ambulatory No Primary Care Physician Facility:[facility] Start: 01-17-2025 End: 01-17-[address] Guy Ho MD -[facility] Work Phone: Start: 01-17-2025 End: 01-17-2025 ambulatory No Primary Care Physician Facility:[facility] Start: 01-03-2025 End: 01-03-[address] Guy Ho MD -[facility] Work Phone: Start: 01-03-2025 End: 01-03-2025 ambulatory No Primary Care Physician Facility:[facility] Start: 12-28-2024 End: 12-28-2024 Patient encounter procedure Rubi NGUYEN -[facility] Work Phone: Start: 12-28-2024 End: 12-28-2024 ambulatory No Primary Care Physician Facility:[facility] Start: 12-20-2024 End: 12-20-[address] Rangel Connor MD [facility] Work Phone: Start: 12-20-2024 End: 12-20-2024 ambulatory Rangel Connor Facility:[facility] Start: 12-08-2024 End: 12-09-2024 Historical Summary ELLY BENOIT [facility] Start: 12-08-2024 Review ELLY MURPHYP-C [facility] Start: 12-06-2024 End: 12-06-[address] Rangel Connor MD -[facility] Work Phone: Start: 12-06-2024 End: 12-06-2024 ambulatory Rangel Connor Facility:[facility] Start: 11-22-2024 End: 11-22-2024 Patient encounter procedure Rubi NGUYEN -[facility] Work Phone: Start: 11-22-2024 End: 11-22-2024 ambulatory No Primary Care Physician Facility:[facility] Start: 11-12-2024 End: 11-12-2024 ambulatory INTERVENTIONAL RAD AILEENISSCHEDDEVI Facility:[facility] Start: 11-10-2024 ambulatory Enrique Eugeneori Facility:[facility] Start: 11-10-2024 Non-patient / Non-visit Dr. Enrique Romero MD -[facility] Start: 11-10-2024 End: 11-10-[address] Enrique Romero MD -[facility] Services Work Phone: Start: 11-10-2024 End: 11-10-2024 ambulatory Enrique Eugeneori Facility:[facility] Start: 11-08-2024 ambulatory Enrique Nick Facility:[facility] Start: 11-08-2024 Non-patient / Non-visit Dr. Enrique Romero MD -[facility] Work Phone: Start: 11-08-2024 End: 11-08-[address] Enrique Romero MD -Pulmonary Services/Neurology Work Phone: Start: 11-08-2024 End: 11-08-[address] Guy Ho MD -[facility] Work Phone: Start: 11-08-2024 End: 11-08-2024 ambulatory No Primary Care Physician Facility:[facility] Start: 11-08-2024 End: 11-08-2024 ambulatory [facility] Facility:[facility] Start: 11-05-2024 End: 11-05-[address] Enrique Romero MD -[facility] Work Phone: Start: 11-05-2024 End: 11-05-2024 ambulatory No Primary Care Physician Facility:[facility] Start: 11-03-2024 End: 11-03-2024 Patient encounter procedure Rubi Mercedes SHIPPING CLERK/ADMIN-C -[facility] Work Phone: Start: 11-03-2024 End: 11-03-2024 ambulatory No Primary Care Physician Facility:[facility] Start: 10-29-2024 End: 10-29-2024 Office outpatient visit 15 minutes Hilary Lewis MD Work Phone: [facility] [place] Comment on above: Malignant neoplasm o f rectum (Primary Dx) Start: 10-29-2024 ambulatory SELF SELF Facility:[facility] Start: 10-22-2024 End: 10-22-2024 Office outpatient visit 25 minutes Greg Mason MD Work Phone: [facility] Comment on above: 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); Ureteral stricture Start: 10-22-2024 ambulatory GREG MASON Facility: [facility] Start: 10-11-2024 End: 10-18-2024 Evaluation and management of inpatient Hilary Lewis MD Work Phone: [email or web address] Comment on above: Dehydration Start: 10-11-2024 End: 10-11-2024 Emergency department patient visit No Primary Care Physician Facility:[facility] Start: 10-11-2024 End: 10-11-2024 ambulatory Elly Bellamy NP Facility:[facility] Start: 10-06-2024 ambulatory SELF SELF Facility:[facility] Start: 10-06-2024 End: 10-06-2024 Subsequent hospital visit by physician Shruthi KOVACS Work Phone: [facility] at [facility] Comment on above: Arrived Start: 09-27-2024 End: 09-27-2024 ambulatory Elly Bellamy NP Facility:[facility] Start: 09-13-2024 End: 09-13-2024 ambulatory Elly Hofstetter SHIPPING CLERK/ADMIN Facility:[facility] Start: 09-01-2024 End: 09-30-2024 Office outpatient visit 15 minutes Hilary Lewis MD Work Phone: [facility] [place] Comment on above: Malignant neoplasm o f rectum (Primary Dx) Start: 09-01-2024 ambulatory SELF SELF Facility:[facility] Start: 08-17-2024 End: 08-17-2024 ambulatory Ambrose Leija Facility:[facility] Start: 08-16-2024 End: 08-16-2024 ambulatory Elly Hoargenistetter SHIPPING CLERK/ADMIN Facility:[facility] Start: 08-11-2024 End: 08-11-2024 ambulatory Ambrose Leija Facility:[facility] Start: 08-09-2024 End: 08-09-2024 ambulatory Elly Hofstetter SHIPPING CLERK/ADMIN Facility:[facility] Start: 08-04-2024 End: 08-04-2024 ambulatory Ambrose Leija Facility:[facility] Start: 08-02-2024 End: 08-02-2024 ambulatory Guy Ho Facility:[facility] Start: 07-28-2024 End: 07-28-2024 ambulatory Ambrose Leija Facility:[facility] Start: 07-26-2024 End: 07-26-2024 ambulatory Elly Hofstetter SHIPPING CLERK/ADMIN Facility:[facility] Start: 07-21-2024 End: 07-21-2024 ambulatory Elly Hofstetter SHIPPING CLERK/ADMIN Facility:[facility] Start: 07-19-2024 End: 07-19-2024 ambulatory Elly Hofstetter SHIPPING CLERK/ADMIN Facility:[facility] Start: 07-15-2024 ambulatory Elly Hofstetter SHIPPING CLERK/ADMIN F acility:[facility] Start: 07-15-2024 End: 07-15-2024 ambulatory Elly Hofstetter SHIPPING CLERK/ADMIN Facility:[facility] Start: 07-14-2024 End: 07-14-2024 ambulatory Ambrose Leija Facility:[facility] Start: 07-13-2024 End: 07-13-2024 ambulatory Kunal Chandler Facility:[facility] Start: 07-12-2024 End: 07-12-2024 ambulatory No Primary Care Physician Facility:[facility] Start: 07-08-2024 ambulatory Ambrose Leija Facility: [facility] Start: 07-06-2024 End: 07-06-2024 ambulatory Guy Ho Facility:[facility] Start: 06-30-2024 ambulatory Ambrose [place] Facility: [facility] Start: 06-29-2024 End: 06-29-2024 ambulatory No Primary Care Physician Facility:[facility] Start: 06-25-2024 End: 06-25-2024 ambulatory HILARY LEWIS Facility:[facility] Start: 06-25-2024 End: 06-25-2024 Subsequent hospital visit by physician Hilary Lewis MD Work Phone: [facility] Comment on above: Malignant neoplasm [...] Phone: [facility] [place] Comment on above: Malignant neoplasm o f rectum (Primary Dx) Start: 05-20-2024 ambulatory SELF SELF Facility:[facility] Start: 05-20-2024 ambulatory HILARY LEWIS Facility :[facility] Start: 05-20-2024 End: 05-20-2024 Subsequent hospital visit by physician Hilary Lewis MD Work Phone: [facility] Comment on above: Arrived Start: 05-12-2024 ambulatory ANJALI DENTON Facil ity:[facility] Start: 05-12-2024 End: 05-12-2024 Office outpatient new 45 minutes Anjali Denton SOUND CONTROLLER-HORTICULTURE/FLORICULTURE TEACHER Work Phone: [facility] Comment on above: Urinary retention (P rimary Dx) Start: 04-30-2024 End: 05-09-2024 Evaluation and management of inpatient Hilary Lewis MD Work Phone: [email or web address] Comment on above: Colon cancer Start: 04-29-2024 ambulatory SELF SELF Facility:[facility] Start: 04-28-2024 End: 04-30-2024 Emergency department patient visit Kj Martinez MD Work Phone: [facility] Start: 04-28-2024 End: 04-28-2024 Emergency department patient visit No Primary Care Physician Facility:[facility] Start: 03-18-2024 End: 03-18-2024 Historical Summary ELLY BELLAMY CASSANDRA DEVELOPER-C Work Phone: [employer] [facility] Start: 03-11-2024 End: 03-11-2024 ambulatory [facility] Start: 02-25-2024 End: 02-25-2024 ambulatory [facility] Start: 11-28-2023 Review ELLY CAMARGO CASSANDRA DEVELOPER-C Work Phone: [employer] Start: 11-26-2023 End: 11-26-2023 Office outpatient visit 10 minutes ELLY BELLAMY CASSANDRA DEVELOPER-C Work Phone: [employer] [facility] [employer] [facility], [employer]. Start: 11-09-2023 End: 11-09-2023 Emergency department patient visit STEPHANIE ROUSSEAU [facility] Start: 11-05-2023 End: 11-05-2023 Medication Refill/Order ELLY DAWSONER CASSANDRA DEVELOPER-C Work Phone: [employer] [facility] Start: 10-23-2023 End: 10-23-2023 Medication Refill/Order ELLY LOVETETTER CASSANDRA DEVELOPER-C Work Phone: [employer]. Start: 10-22-2023 End: 10-22-2023 ambulatory [facility]IP[facility] Start: 10-17-2023 End: 10-17-2023 Office outpatient visit 10 minutes ELLY BELLAMY CY Work Phone: [facility] Procedures Date Procedure Procedure Detail Performing Clinician [...] Comment on above: Performed By: #### U [id number] #### [facility] ([facility] [address] [place] [address] Start: 10-17-2024 Blood typing serologic abo Kori [...] Performed By: #### X M #### [facility] ([facility]) [address] [place] [id number] Start: 10-12-2024 End: 10-12-2024 Assay of magnesium Kevan azul MD Work Phone: Start: 10-12-2024 Blood typing serologic abo Kevan Jasso MD Work Phone: Start: 10-12-2024 CBC [...] MD Work Phone: Start: 04-29-2024 Prothrombin time Martlel Vasquez MD Work Phone: Start: 04-29-2024 RAINBOW DRAW Finesse Martinez MD Work Phone: Start: 11-26-2023 End: 11-26-2023 Dischrg meds reconciled w/current med list ELLY BELLAMY CASSANDRA DEVELOPER-C Work Phone: colostomy 03/2024 Randall PENNY MD Work Phone: Comment on above: [place]; invasive mod erately differentiated adeno colostomy 03/2024 Randall PENNY MD Work Phone: Comment on above: [place]; 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) Plan of Treatment Date Care Activity Detail Author Start: 06-20-2025 Influenza vaccination INFLUENZA VACCINE (Season Ended) [facility] Start: 04-04-2025 End: 04-04-2025 Patient encounter procedure [facility] Start: 03-01-2025 Patient discharge [facility] Start: 02-26-2025 [facility] Start: 02-26-2025 [facility] Start: 02-26-2025 [facility] Start: 02-25-2025 Consultation for treatment [facility] Start: 02-24-2025 Venous catheter care management [facility] Start: 02-24-2025 Assessment of risk of venous thromboembolism [facility] Start: 02-24-2025 Insertion of catheter into peripheral vein [facility] Start: 02-24-2025 Measuring intake and output [facility] Start: 02-24-2025 Providing care according to standard [facility] Start: 02-24-2025 Referral to general surgeon [facility] Start: 02-24-2025 Referral to occupational therapist [facility] Start: 02-24-2025 Referral to service [facility] Start: 02-24-2025 [facility] Start: 02-24-2025 Serum inorganic phosphate measurement [facility] Start: 02-24-2025 Admission procedure [facility] Start: 02-24-2025 Hospital admission, emergency, from emergency room, medical nature [facility] Start: 02-24-2025 [facility] Start: 02-24-2025 Patient referral to dietitian [facility] Start: 02-24-2025 [facility] Start: 02-14-2025 Vital signs measurements [facility] Start: 02-01-2025 End: 02-01-2025 Patient encounter procedure 02/01/2025 2:20 PM EDT Office Visit [facility] [address] [facility] [address] [place] [address] Greg Mason MD [address] [place] [address] [address] [place] [address] [facility] Start: 01-31-2025 Vital signs measurements [facility] Start: 01-17-2025 Vital signs measurements [facility] Start: 01-03-2025 Vital signs measurements [facility] Start: 12-20-2024 Vital signs measurements [facility] Start: 12-06-2024 Vital signs measurements [facility] Start: 11-22-2024 Vital signs measurements [facility] Start: 11-08-2024 Vital signs measurements [facility] Start: 11-05-2024 Evaluation of diagnostic study results [facility] Start: 11-03-2024 Patient referral [facility] Work Phone: Start: 10-29-2024 End: 10-29-2025 Flexible sigmoidoscopy FLEXIBLE SIGMOIDOSCOPY GI/Bronch Routine Malignant neoplasm of rectum Expected: 10/29/2024, Expires: 10/29/2025 [facility] Comment on above: Expected: 10/29/2024, Expires: Start: 10-29-2024 End: 10-29-2024 Patient encounter procedure 10/29/2024 11:30 AM EST Office Visit [facility] [place] [address] [place] [address] Hilary Lewis MD [address] [facility] [address] [place] [address] [facility] [place] Start: 10-25-2024 End: 10-18-2025 Cardiac event recording EVENT MONITOR, CARDIAC ECG Routine Hydronephrosis, unspecified hydronephrosis type Malignant neoplasm of colon, unspecified part of colon Expected: 10/25/2024 (Approximate), Expires: 10/18/2025 [facility] Work Phone: Comment on above: Expected: 10/25/2024 (Approximate), Expi res: 10/18/2025 Start: 10-22-2024 End: 10-22-2024 Patient encounter procedure 10/22/2024 2:20 PM EST Office Visit [facility] [address] [place] [phone] Greg Mason MD [address] [facility] [address] [place] [address] [facility] Start: 10-21-2024 End: 10-21-2024 Telemedicine consultation with patient 10/21/2024 2:00 PM EST Telemedicine [facility] [place] [address] [place] [phone] Hilary Lewis MD [address] [place] [phone] [facility] [place] Start: 10-06-2024 Subsequent hospital visit by physician 10/06/2024 4:20 PM EST Hospital Encounter Imaging at [facility] [address] [place] [phone] Shruthi Welch, SOUND CONTROLLER-ELIAS [address] [place] [address] [facility] at [facility] Start: 09-28-2024 Administration of blood product [facility] Start: 09-28-2024 [facility] Start: 09-01-2024 End: 09-01-2024 Patient encounter procedure 09/01/2024 2:30 PM EST Office Visit [facility] [place] [address] [place] [phone] Hilary Lewis MD [address] [place] [phone] [facility] [place] Start: 09-01-2024 End: 09-01-2025 MR Pelvis WO and W contrast IV MRI RECTUM WITHOUT AND WITH CONTRAST Imaging Routine Malignant neoplasm of rectum Expected: 09/01/2024, Expires: 09/01/2025 [facility] Comment on above: Expected: 09/01/2024, Expires: Start: 08-09-2024 End: 08-09-2024 Patient encounter procedure 08/09/2024 9:15 AM EDT Appointment [facility] [address] [place] [address] Hilary Lewis MD [address] [place] [address] [facility] Start: 07-26-2024 Venous catheter care management [facility] Start: 06-25-2024 End: 06-25-2024 Admission to same day surgery center 06/25/2024 12:06 PM EDT - 06/25/2024 12:38 PM EDT [facility] [address] [place] [phone] Hilary Lewis MD [address] [place] [phone] SIGMOIDOSCOPY DIAGNOSTIC [facility] Comment on above: SIGMOIDOSCOPY DIAGNOSTIC Start: 06-25-2024 End: 06-25-2024 Sigmoidoscopy flx dx w/collj spec br/wa if pfrmd [facility] Start: 06-25-2024 Subsequent hospital visit by physician 06/25/2024 10:00 AM EDT Hospital Encounter [facility] [address] [place] [phone] Hilary Lewis MD [address] [place] [phone] Malignant neoplasm of rectum [facility] Comment on above: Malignant neoplasm of rectum Start: 06-22-2024 End: 06-22-2024 ambulatory 06/22/2024 10:00 AM EDT Pre-Operative Nurse Assessment Telehealth Pre Procedure Preparation [address] [place] [address] Bonnie Nicolas, FERNANDO Telehealth Pre Procedure Preparation Start: 06-20-2024 COVID-19 VACCINE ( season) COVID-19 VACCINE () [facility] Start: 06-20-2024 COVID-19 VACCINE () COVID-19 VACCINE () [facility] Start: 06-20-2024 Influenza vaccination INFLUENZA VACCINE (#1) [facility] Start: 05-20-2024 End: 05-04-2025 CT Abdomen and Pelvis W contrast IV [facility] Work Phone: Comment on above: Expected: 05/20/2024 (Approximate), Expi res: 05/04/2025 1 Occurrences starti ng 05/20/2024 until 05/20/2024 Start: 05-20-2024 End: 05-20-2024 Patient encounter procedure 05/20/2024 1:45 PM EDT Office Visit [facility] [place] [address] [facility] [address] [place] [address] Hilary Lewis MD [address] [place] [address] [facility] [place] Start: 05-20-2024 End: 05-20-2024 Patient encounter procedure [facility] [place] Start: 05-12-2024 End: 05-12-2024 Clinical Support Encounter 05/12/2024 8:00 AM EDT Clinical Support Encounter [facility] [address] [facility] [address] [place] [address] Anjali Denton, SOUND CONTROLLER-HORTICULTURE/FLORICULTURE TEACHER [address] [facility] [address] [place] [phone] [facility] Start: 10-17-2023 Cul bact stool aerobic isol salmonella&shigell STOOL-ROSANGELA CULTURE (99490) Start: 17-Oct-2023 15:58 Request [id number] [facility] [employer]. Start: 10-17-2023 Ova&parasites direct smears concentration & id OVA & PARASITE DIR SMEAR ([id number]) Start: 17-Oct-2023 15:58 Request [id number] [facility] [employer] Start: 10-17-2023 Iaad ia cryptosporidium CRYPTOSPORIDUM/GIARDI, INFCT ANTIGEN ([id number]) Start: 17-Oct-2023 15:58 Request [id number] [facility] [employer]. Start: 10-17-2023 Iaad ia clostridium difficile toxin C DIFF TOXIN A+B, EIA ([id number]) Start: 17-Oct-2023 15:58 Request [id number] [facility] [employer]. Start: 06-20-2023 COVID-19 VACCINE ( season) COVID-19 VACCINE ( season) [facility] Start: 2020 Prostate specific antigen measurement PROSTATE CANCER SCREENING DISCUSSION [facility] Start: 12-31-2015 Pneumococcal vaccination PNEUMOCOCCAL VACCINE SERIES (1 of 1 - PCV) [facility] Start: 12-31-2015 Prostate specific antigen measurement PROSTATE CANCER SCREENING DISCUSSION [facility] Start: 12-31-2015 Zoster vaccine hzv live for subcutaneous use ZOSTER (SHINGLES) VACCINE (1 of 2) [facility] Start: 2010 Screening for malignant neoplasm of colon COLORECTAL CANCER SCREENING DISCUSSION [facility] Start: 2005 Lipid panel LIPID SCREENING [facility] Start: 1984 Hepatitis B vaccination HEP B VACCINE (1 of 3 - 19+ 3-dose series) [facility] Start: 1984 Third diphtheria, tetanus and acellular pertussis (DTaP) vaccination TDAP (ADULT) [facility] Start: 1980 HIV screening HIV SCREENING DISCUSSION [facility] Start: 1965 Hepatitis C screening HEPATITIS C VIRUS SCREENING [facility] Start: 1965 Tetanus vaccination TETANUS [facility] End: 04-29-2024 Bacteria identified in Blood by Culture BLOOD CULTURE Microbiology Routine One Time for 1 Occurrences starting 04/29/2024 until 04/29/2024 [facility] Work Phone: Comment on above: One Time for 1 Occurrences starting 04/19 until 04/29/2024 Bacteria identified in Blood by Culture BLOOD CULTURE Microbiology Routine 04/29/2024 1:11 AM EDT [facility] Bacteria identified in Unspecified specimen by Culture BACTERIAL CULTURE AND DIRECT SMEAR, LESION, TISSUE, DEVICE Microbiology STAT 04/29/2024 3:46 AM EDT [facility] Bldr irrigation smpl lavage &/instlj CA BLDR IRRIGATION SMPL LAVAGE &/INSTLJ CA Charge Routine Urinary retention Ordered: 05/12/2024 [facility] Comment on above: Ordered: 05/12/2024 CASE REQUEST DEPARTM ENT USE ONLY INTERVENTIONAL RADIOLOGY CASE REQUEST DEPARTMENT USE ONLY INTERVENTIONAL RADIOLOGY Procedures Routine Hydronephrosis, unspecified hydronephrosis type Malignant neoplasm of colon, unspecified part of colon Ordered: 10/14/2024 [facility] Comment on above: Ordered: 10/14/2024 End: 05-06-2024 DRAINAGE BY CATHETER PERITONEAL/RETROPERITON EAL PERCUTANEOUS W/ IMAGIN [facility] Work Phone: Comment on above: One Time for 1 Occurrences starting 04/19 until 05/06/2024 Exchange nephrostomy catheter prq w/img gid rs&i EXCHANGE NEPHROSTOMY CATHETER PERCUTANEOUS W/ IMAGE GUIDANCE Hydronephrosis, unspecified hydronephrosis type Malignant neoplasm of colon, unspecified part of colon [facility] Exchange nephrostomy catheter prq w/img gid rs&i EXCHANGE NEPHROSTOMY CATHETER PERCUTANEOUS W/ IMAGE GUIDANCE Ureteral stricture [facility] Magnesium [facility] Jesus post-voiding residual urine&/bladder cap CA JESUS POST-VOIDING RESIDUAL URINE&/BLADDER CAP CA Charge Routine Urinary retention Ordered: 05/12/2024 [facility] Comment on above: Ordered: 05/12/2024 End: 10-06-2024 MR Pelvis WO and W contrast IV [facility] Comment on above: 1 Occurrences starting 10/06/2024 until 10/06/2024 End: 05-05-2024 ORDERS (SCANNED) ORDERS (SCANNED) Procedures One Time for 1 Occurrences starting 05/05/2024 until 05/05/2024 [facility] Comment on above: One Time for 1 Occurrences starting 04/19 until 05/05/2024 Patient referral [facility] Work Phone: CA REMOVE CISNEROS CATHETER CA REMOVE CISNEROS CATHETER CA - OFFICE PERFORMED Routine Urinary retention Ordered: 05/12/2024 [facility] Comment on above: Ordered: 05/12/2024 SURG PATH REQUEST [facility] Comment on above: Release Upon Ordering for 1 Occurrences starting 06/25/2024, 1 completed Transfusion of packe d red blood cells TRANSFUSE RED BLOOD CELLS Nursing Routine 10/17/2024 6:57 AM EST [facility] Payers Date Payer Category Payer Unknown [id number] 2024 Unknown [id number] 2024 Self-pay 2022 Unknown [id number] 2022 Unknown [id number] 2022 Unknown [id number] Unknown [id number] 2.16.8 40.1.209278.3.579.2.651 1965 Unknown [id number] 2.16.8 40.1.618158.3.579.2.651 1965 Unknown [id number] 2.16.8 40.1.153341.3.579.2.651 1965 Unknown [id number] 2.16. 840.1.340391.3.579.2.594 1965 Unknown [id number] 2.16. 840.1.893607.3.579.2.594 1965 Unknown [id number] 2.16. 840.1.863578.3.579.2.594 1965 Unknown [id number] 2.16. 840.1.988574.3.579.2.594 1965 Unknown [id number] 2.16. 840.1.141370.3.579.2.594 1965 Unknown [id number] 2.16. 840.1.598087.3.579.2.594 Unknown [id number] 2.16.8 40.1.479853.3.579.2.462 Unknown [id number] 2.16.8 40.1.663791.3.579.2.462 Unknown [id number] 2.16.8 40.1.786582.3.579.2.462 Unknown [id number] 2.16.8 40.1.972225.3.579.2.462 Unknown [id number] 2.16.8 40.1.938668.3.579.2.462 Unknown [id number] 2.16.8 40.1.383121.3.579.2.462 Unknown [id number] 2.16.8 40.1.386247.3.579.2.462 Unknown [id number] 2.16.8 40.1.853427.3.579.2.462 Unknown [id number] 2.16.8 40.1.400305.3.579.2.462 Unknown [id number] 2.16.8 40.1.600014.3.579.2.462 Unknown [id number] 2.16.8 40.1.663102.3.579.2.462 Unknown [id number] 2.16.8 40.1.663806.3.579.2.462 Unknown [id number] 2.16.8 40.1.779974.3.579.2.462 Unknown [id number] 2.16.8 40.1.184986.3.579.2.462 Unknown [id number] 2.16.8 40.1.093410.3.579.2.462 Unknown [id number] 2.16.8 40.1.336719.3.579.2.462 Unknown [id number] 2.16.8 40.1.059862.3.579.2.462 Unknown [id number] 2.16.8 40.1.758102.3.579.2.462 Unknown [id number] 2.16.8 40.1.284883.3.579.2.462 Unknown [id number] 2.16.8 40.1.481717.3.579.2.462 Unknown [id number] 2.16.8 40.1.812877.3.579.2.462 Unknown [id number] 2.16.8 40.1.304603.3.579.2.462 Unknown [id number] 2.16.8 40.1.612119.3.579.2.462 Unknown [id number] 2.16.8 40.1.015666.3.579.2.462 Unknown [id number] 2.16.8 40.1.632663.3.579.2.462 Unknown [id number] 2.16.8 40.1.797761.3.579.2.462 Unknown [id number] 2.16.8 40.1.575217.3.579.2.462 Unknown [id number] 2.16.8 40.1.422432.3.579.2.462 Unknown [id number] 2.16.8 40.1.626752.3.579.2.462 Unknown [id number] 2.16.8 40.1.210827.3.579.2.462 Unknown [id number] 2.16.8 40.1.894414.3.579.2.462 Unknown [id number] 2.16.8 40.1.303394.3.579.2.462 Unknown [id number] 2.16.8 40.1.040754.3.579.2.462 Unknown [id number] 2.16.8 40.1.523036.3.579.2.462 Unknown [id number] 2.16.8 40.1.302506.3.579.2.462 Unknown [id number] 2.16.8 40.1.459329.3.579.2.462 Unknown [id number] 2.16.8 40.1.694678.3.579.2.462 Unknown [id number] 2.16.8 40.1.230021.3.579.2.462 Unknown [id number] 2.16.8 40.1.737872.3.579.2.462 Unknown [id number] 2.16.8 40.1.568615.3.579.2.462 Unknown [id number] 2.16.8 40.1.987910.3.579.2.462 Unknown [id number] 2.16.8 40.1.341102.3.579.2.462 Unknown [id number] 2.16.8 40.1.073289.3.579.2.462 Unknown [id number] 2.16.8 40.1.414632.3.579.2.462 Unknown [id number] 2.16.8 40.1.960128.3.579.2.462 Unknown [id number] 2.16.8 40.1.059301.3.579.2.462 Unknown [id number] 2.16.8 40.1.757751.3.579.2.462 Unknown [id number] 2.16.8 40.1.083976.3.579.2.462 Unknown [id number] 2.16.8 40.1.952773.3.579.2.462 Unknown [id number] 2.16.8 40.1.742216.3.579.2.462 Unknown [id number] 2.16.8 40.1.558263.3.579.2.462 Unknown [id number] 2.16.8 40.1.255894.3.579.2.462 Unknown [id number] 2.16.8 40.1.032877.3.579.2.462 Unknown [id number] 2.16.8 40.1.011985.3.579.2.462 Unknown [id number] 2.16.8 40.1.872045.3.579.2.462 Unknown [id number] 2.16.8 40.1.375553.3.579.2.462 Unknown [id number] 2.16.8 40.1.580205.3.579.2.462 Unknown [id number] 2.16.8 40.1.083221.3.579.2.462 Unknown [id number] 2.16.8 40.1.142369.3.579.2.462 Social History Date Type Detail Facility Alcohol Use: Alcohol Use: ; N o [facility] Start: 04-29-2024 End: 10-14-2024 Most Recent Primary Occupation Most Recent Primary Occupation [facility]; [facility] [place] Tobacco use: Tobacco use: ; N ever smoker. [employer] [facility] [place] Start: 1965 Male [facility] Start: 04-29-2024 End: 02-24-2025 Never smoked tobacco [facility] Start: 04-29-2024 Tobacco use and exposure Smokeless tobacco non-user [facility] Start: 04-29-2024 End: 02-22-2025 Alcoholic beverage intake Ex-drinker (finding) [facility] Start: 04-29-2024 End: 10-14-2024 Tobacco use panel [facility] Start: 1965 Sex assigned at Not on file O [facility] Has the electric, ga s, oil, or water company threatened to shut off services in your home in past 12Mo No [facility] How often to you hav e a drink containing alcohol? Never [facility] How many standard drinks containing alcohol do you have on a typical day? Patient does not drink [facility] (I/We) worried [facility] (my/our) food would run out before (I/we) got money to buy more. Never true [facility] Start: 03-12-2024 Sex Male (finding) [facility] Medical Equipment Procedure Code Equipment Code Equipment Origin al Text Equipment Identifier Dates Insertion, vascular access port ([id number]) Vascular port/catheter ([id number] FDA Start: 07-15-2024 Goals Date Patient Goal Desired Activity /State Personal health goal Functional Status Date Assessment Result Facility 03-01-2025 Functional status [facility] Work Phone: 10-11-2024 Are you deaf, or do you have serious difficulty hearing No 10/11/2024 11:23 PM Lakia Chavez, FERNANDO [facility] 10-11-2024 Are you blind, or do you have serious difficulty seeing, even when wearing glasses No 10/11/2024 11:23 PM Lakia Chavez, FERNANDO No [facility] 10-11-2024 Do you have serious difficulty walking or climbing stairs No 10/11/2024 11:23 PM Lakia Chavez, RN No [facility] 10-11-2024 Do you have difficul ty dressing or bathing No 10/11/2024 11:23 PM Lakia Chavez, RN [facility] 10-11-2024 Because of a physica l, mental, or emotional condition, do you have difficulty doing errands alone such as visiting a physician's office or shopping No 10/11/2024 11:23 PM Lakia Chavez, FERNANDO No [facility] Mental Status Date Assessment Result Facility 03-01-2025 Cognitive function Voice/Name [facility] Work Phone: 02-24-2025 Cognitive function Level Of Cons ciousness Awake;Alert;Appropriate;Fol lows Commands [facility] Work Phone: 10-11-2024 Because of a physica l, mental, or emotional condition, do you have serious difficulty concentrating, remembering, or making decisions No 10/11/2024 11:23 PM Lakia Chavez, FERNANDO No [facility] 10-07-2024 Cognitive function Awake;Alert;A ppropriate;Fol lows Commands [facility] Work Phone: 10-01-2024 Cognitive function Arousable To Voice/Nam e [facility] Work Phone: Clinical Notes 04-28-2024 to 03-01-2025 Note Date & Type Note Facility 03-01-2025 Discharge summary [facility] 03-01-2025 Discharge summary [facility] 03-01-2025 Note [facility] 03-01-2025 Discharge summary Note Date/Time March 01, 2025 9:28a m [facility] Medical Records Department [address] [place] [address] Instructions for Home/Discharge Instructions 03/01/25 0900 MR#: [id number] Acct: [id number] Name: ANDREW POSADA Rep #:[id number] : 1965 59 From: Rachael LOWERY PA-C [...] minutes early. Please contact our office at [phone], option #4 for a nurse if you [...] minutes early. Please contact our office at [phone], option #4 for a nurse if you have any questions following discharge. Bring ostomy supplies with you to your follow-up. Below is an example of foods to continue eating at discharge. You may increase diet to regular food after 3 days from discharge date. If you have any questions, please contact our office. Transitional Diet Beverages: ? Soda (cola, diet cola, lemon-levelock, diet lemon-levelock, garrett duane, diet garrett duane) ? Tea (hot or iced) ? Milk (low-fat, 2%, lactose free) ? Coffee ? Juice (without pulp) ? Oral Nutrition supplement Breakfast: ? Hot cereal (oatmeal or cream of wheat) ? Scrambled eggs ? Blueberry muffin ? Cold cereal (no whole grain cereals) ? [place] (white) Lunch or Dinner: Deli Items: Hot Items: [place] sandwich Roast [place] Tuna salad (sandwich or alone) Macaroni & [...] Physician,No Primary [Non-Staff] - Elly Bellamy NP, SHIPPING CLERK/ADMIN-C [Primary Care Provider] - Kunal Chandler MD [Med Staff - Active Staff] - 03/10/25 9:45 am Disposition Disposition (needs filled in before D/C Order can be placed): Home, Self Care 03/01/25927<Electronically signed by Rachael LOWERY PA-C>Rachael LOWERY PA-C CC: WENDY Bellamy; Dr. 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 throughout body [...] (Auto) 46.6 L, Lymph % (Auto) 22.3, Elk % (Auto) 25.5 H, Eos % (Auto) [...] for discharge Charges/Coding Visit Charges Inpatient E&M: 42693 Subs Hosp L1 (post-op) 03/01/25 0859 <Electronically signed by Rachael LOWERY PA-C> Cosigner Signature (if applicable): CC: ~ Signed [facility] Work Phone: 1(586) 993-635305-13-2025 Discharge summary Author Handy Royal [facility] Note Date/Time March 01, 2025 12:45 pm [facility] Medical Records Department [address] [place] [address] Instructions for Home/Discharge Instructions 03/01/25 0841 MR#: [id number] Acct: [id number] Name: ANDREW POSADA Rep #:[id number] : 1965 59 From: Handy Harris PCP: [...] minutes early. Please contact our office at [phone], option #4 for a nurse if you have any questions following discharge. Bring ostomy supplies with you to your follow-up. Below is an example of foods to continue eating at discharge. You may increase diet to regular food after 3 days from discharge date. If you have any questions, please contact our office. Transitional Diet Beverages: ? Soda (cola, diet cola, lemon-levelock, diet lemon-levelock, garrett duane, diet garrett duane) ? Tea (hot or iced) ? Milk (low-fat, 2%, lactose free) ? Coffee ? Juice (without pulp) ? Oral Nutrition supplement Breakfast: ? Hot cereal (oatmeal or cream of wheat) ? Scrambled eggs ? Blueberry muffin ? Cold cereal (no whole grain cereals) ? [place] (white) Lunch or Dinner: Deli Items: Hot Items: [place] sandwich Roast [place] Tuna salad (sandwich or alone) Macaroni & [...] Physician,No Primary [Non-Staff] - Elly Bellamy NP SHIPPING CLERK/ADMIN-C [Primary Care Provider] - Disposition Disposition (needs filled in before D/C Order can be placed): Home, Self Care 03/01/25 1245<Electronically signed by Handy Royal MD>Handy Royal MD CC: SHIPPING CLERK/ADMIN-C Elly Bellamy; Dr. Kunal Chandler MD ~ Signed [facility] Work Phone: 1(265) 957-466805-13-2025 Discharge summary [facility] Medical Records Department [address] [place] [address] Instructions for Home/Discharge Instructions 03/01/25 0900 MR#: [id number] Acct: [id number] Name: ANDREW POSADA Rep #:[id number] : 1965 59 From: Rachael LOWERY PA-C [...] minutes early. Please contact our office at [phone], option #4 for a nurse if you [...] minutes early. Please contact our office at [phone], option #4 for a nurse if you have any questions following discharge. Bring ostomy supplies with you to your follow-up. Below is an example of foods to continue eating at discharge. You may increase diet to regular foodafter 3 days from discharge date. If you have any questions, please contact our office. Transitional Diet Beverages: ? Soda (cola, diet cola, lemon-levelock, diet lemon-levelock, garrett duane, diet garrett duane) ? Tea (hot or iced) ? Milk (low-fat, 2%, lactose free) ? Coffee ? Juice (without pulp) ? Oral Nutrition supplement Breakfast: ? Hot cereal (oatmeal or cream of wheat) ? Scrambled eggs ? Blueberry muffin ? Cold cereal (no whole grain cereals) ? [place] (white) Lunch or Dinner: Deli Items: Hot Items: [place] sandwich Roast [place] Tuna salad (sandwich or alone) Macaroni & [...] Physician,No Primary [Non-Staff] - Elly Bellamy NP, SHIPPING CLERK/ADMIN-C [Primary Care Provider] - Kunal Chandler MD [Med Staff - Active Staff] - 03/10/25 9:45 am Disposition Disposition (needs filled in before D/C Order can be placed): Home, Self Care 03/01/25 0928Amanda Niall LOWERY PA-C CC: STEPHENC Elly Bellamy; Dr. 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 throughout body [...] (Auto) 46.6 L, Lymph % (Auto) 22.3, Elk % (Auto) 25.5 H, Eos % (Auto) [...] for discharge Charges/Coding Visit Charges Inpatient E&M: 39621 Subs Hosp L1 (post-op) 03/01/25 0859 Cosigner Signature (if applicable): CC: ~ Signed [facility]05-12-2025 Progress note Author Rachael Tierney [facility] Note Date/Time February 28, 2025 4:50p m [facility] Medical Records Department [address] [place] [address] Progress Note - Surgery 02/28/25 0727 MR#: [id number] Acct: [id number] Name: ANDREW POSADA Rep #:[id number] : 1965 59 From: Rachael LOWERY PA-C PCP: WENDY Gonzalez Status:A DM IN Location: MS3 [id number] Subjective Subjective Patient evaluated resting comfortably in [...] <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 throughout body [...] (Auto) 59.6, Lymph % (Auto) 15.3 L, Elk % (Auto) 19.7 H, Eos % (Auto) [...] discharge tomorrow Charges/Coding Visit Charges Inpatient E&M: 82963 Subs Hosp L1 (no charge; post-op) 02/28/25 [...] Cosigner Signature (if applicable): cc: ~* Signed [facility] Work Phone: 1(102) 544-476305-12-2025 Progress note Author Handy Royal [facility] Note Date/Time February 28, 2025 3:56p m [facility] Medical Records Department [address] [place] [address] Progress Note - Hospitalist 02/28/25 1055 MR#: [id number] Acct: [id number] Name: ANDREW POSADA Rep #:[id number] : 1965 59 From: Handy Harris PCP: WENDY Gonzalez Status:A DM IN Location: MS3 ZZ673-2 Reason for Visit Reason for Visit: Diagnoses [...] <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 4. Inguinal hernias, bilaterally. Reading [facility] 02/24/25 11:25 IMPRESSION: Tip of the nasogastric tube in the fundus of the stomach. Bilateral nephrostomy catheters. Bowel-gas pattern suggest adynamic/reflex ileus. Reading Location: [facility] Charges/Coding Visit Charges Inpatient E&M: 81776 Subs Hosp L2 02/28/25 5771 <Electronically signed by Handy Royal MD> Cosigner Signature (if applicable): CC: ~ Signed [facility] Work Phone: 1(892) 682-659405-12-2025 Progress note [facility] Medical Records Department [address] [place] [address] Progress Note - Surgery 02/28/25 0727 MR#: [id number] Acct: [id number] Name: ANDREW POSADA Rep #:[id number] : 1965 59 From: Rachael LOWERY PA-C PCP: WEDNY Gonzalez Status:A DM IN Location: MS3 BT234-9 Subjective Subjective Patient evaluated resting comfortably in [...] <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 throughout body [...] (Auto) 59.6, Lymph % (Auto) 15.3 L, Elk % (Auto) 19.7 H, Eos % (Auto) [...] discharge tomorrow Charges/Coding Visit Charges Inpatient E&M: 91713 Subs Hosp L1 (no charge; post-op) 02/28/25 [...] Cosigner Signature (if applicable): cc: ~* Signed [facility]05-12-2025 Progress note [facility] Medical Records Department [address] [place] [address] Progress Note - Hospitalist 02/28/25 1055 MR#: [id number] Acct: [id number] Name: ANDREW POSADA Rep #:[id number] : 1965 59 From: Handy Harris PCP: Elly Bellamy NP-C Status:A DM IN Location: MS3 AC034-7 Reason for Visit Reason for Visit: Diagnoses [...] <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 4. Inguinal hernias, bilaterally. [facility] 02/24/25 11:25 IMPRESSION: Tip of the nasogastric tube in the fundus of the stomach. Bilateral nephrostomy catheters. Bowel-gas pattern suggest adynamic/reflex ileus. Reading Location: [facility] Charges/Coding Visit Charges Inpatient E&M: 42497 Subs Hosp L2 02/28/25 1556 Cosigner Signature (if applicable): CC: ~ Signed [facility]05-11-2025 Progress note Author Handy Royal [facility] Note Date/Time February 27, 2025 2:45p m [facility] Medical Records Department [address] [place] [address] Progress Note - Hospitalist 02/27/25 1436 MR#: [id number] Acct: [id number] Name: ANDREW POSADA Yaimla Rep #:[id number] : 1965 59 From: Handy Harris PCP: WENDY Gonzalez Status:A DM IN Location: MS3 EQ765-0 Reason for Visit Reason for Visit: Diagnoses [...] <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 throughout body [...] 82.8 H, Lymph % (Auto) 6.8 L, Elk % (Auto) 9.5, Eos % (Auto) 0.2, [...] Clarity Turbid, Urine pH 6.0, Ur Specific [place] 1.025, Urine Protein 500 H, Urine Glucose [...] 80.9 H, Lymph % (Auto) 6.2 L, Elk % (Auto) 11.9 H, Eos % (Auto) [...] hernia. 4. Inguinal hernias, bilaterally. Reading [facility] 02/24/25 11:25 IMPRESSION: Tip of the nasogastric tube in the fundus of the stomach. Bilateral nephrostomy catheters. Bowel-gas pattern suggest adynamic/reflex ileus. Reading Location: [facility] Charges/Coding Visit Charges Inpatient E&M: 87340 Subs Hosp L2 02/27/25 1443 <Electronically signed by Handy Royal MD> Cosigner Signature (if applicable): CC: ~ Signed ADDENDUM by Dr. Handy Royal MD on 02/27/25 at 1445 Addendum Jejunostomy output 1700 mL bilious fluid in last 24 hours 02/27/25 1445<Electronically signed by Handy Royal MD> Cosigner Signature (if applicable): cc: ~* Signed [facility] Work Phone: 1(632) 333-223805-11-2025 Progress note Author Salena Paredes [facility] Note Date/Time February 27, 2025 1:43p m [facility] Medical Records Department [address] [place] [address] Progress Note - Surgery 02/27/2537 MR#: [id number] Acct: [id number] Name: ANDREW POSADA Rep #:[id number] : 1965 59 From: Salena Harris PCP: Elly Bellamy SHIPPING CLERK/ADMIN-C Status:A DM IN Location: AR3 US191-4 Subjective Subjective Patient seen and evaluated during [...] <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 throughout body [...] 82.8 H, Lymph % (Auto) 6.8 L, Elk % (Auto) 9.5, Eos % (Auto) 0.2, [...] Paredes MD General Surgery Endocrine Surgery Pager: [facility] [address] [place] [address], [address] [place] [address] Office: [phone] Charges/Coding Visit Charges Inpatient E&M: 84672 Subs Hosp L2 02/27/25 1343 <Electronically signed by Salena Paredes MD> Cosigner Signature (if applicable): CC: ~ Signed [facility] Work Phone: 1(996) 389-650605-11-2025 Progress note [facility] Medical Records Department [address] [place] [address] Progress Note - Hospitalist 02/27/25 1436 MR#: [id number] Acct: [id number] Name: TIM,ANDREW A Rep #:[id number] : 1965 59 From: Handy Harris PCP: Elly Bellamy SHIPPING CLERK/ADMIN-C Status:A DM IN Location: MS3 IJ194-8 Reason for Visit Reason for Visit: Diagnoses [...] <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 throughout body [...] 82.8 H, Lymph % (Auto) 6.8 L, Elk % (Auto) 9.5, Eos % (Auto) 0.2, [...] Clarity Turbid, Urine pH 6.0, Ur Specific [place] 1.025, Urine Protein 500 H, Urine Glucose [...] 80.9 H, Lymph % (Auto) 6.2 L, [place] % (Auto) 11.9 H, Eos % (Auto) 0.1, Baso % (Auto) 0.4, Absolute Neuts (auto) 6.7, Absolute Lymphs (auto) 0.51 L, Nucleated RBC % 0, Sodium 142, Potassium 3.2 L, Chloride 99, Carbon Dioxide 29.5, Anion Gap 14, BUN21 H, Creatinine 1.51 H, Estim Creat Clear Calc 36.73 L, Est GFR (MDRD) Non- Af 53 L, BUN/Creatinine Ratio 13.7, Htcemsv942 H, Calcium 9.6 Clinical Impression(s) from Imaging [...] hernia. 4. Inguinal hernias, bilaterally. [facility] 02/24/25 11:25 IMPRESSION: Tip of the nasogastric tube in the fundus of the stomach. Bilateral nephrostomy catheters. Bowel-gas pattern suggest adynamic/reflex ileus. Reading Location: [facility] Charges/Coding Visit Charges Inpatient E&M: 35569 Subs Hosp L2 02/27/25 1443 Cosigner Signature (if applicable): CC: ~ Signed ADDENDUM by Dr. 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 throughout body [...] 82.8 H, Lymph % (Auto) 6.8 L, Elk % (Auto) 9.5, Eos % (Auto) 0.2, [...] Paredes MD General Surgery Endocrine Surgery Pager: [facility] [address] [place] [address], [address] [place] [address] Office: [phone] Charges/Coding Visit Charges Inpatient E&M: 52769 Subs Hosp L2 02/27/25 1343 Cosigner Signature (if applicable): CC: ~ Signed [facility]05-10-2025 Progress note Author Handy Royal [facility] Note Date/Time February 26, 2025 12:38 pm [facility] Medical Records Department [address] [place] [address] Progress Note - Hospitalist 02/26/25 1231 MR#: [id number] Acct: [id number] Name: ANDREW POSADA Yamila Rep #:[id number] : 1965 59 From: Handy Lele M D PCP: Care Physician,No Primary Status :ADM IN Location: [facility] ZP681-3 Reason for Visit Reason for Visit: Diagnoses [...] <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 throughout body [...] 87.7 H, Lymph % (Auto) 3.2 L, Elk % (Auto) 8.7, Eos % (Auto) 0.0, [...] 02/25/25 16:45 IMPRESSION: See above Reading Location: [facility] Physical Exam Narrative Seen and examined Patient [...] shock if needed Total time spent in ffnb-po-nbbl encounter in discussion of advanced directive 17 minutes. Laboratory Results 02/24/25 07:35: Phosphorus 2.7, Magnesium 2.1 02/24/25 16:35: Urine Color Yellow, Urine Clarity Turbid, Urine pH 6.0, Ur Specific [place] 1.025, Urine Protein 500 H, Urine Glucose [...] 80.9 H, Lymph % (Auto) 6.2 L, Elk % (Auto) 11.9 H, Eos % (Auto) [...] hernia. 4. Inguinal hernias, bilaterally. [facility] 02/24/25 11:25 IMPRESSION: Tip of the nasogastric tube in the fundus of the stomach. Bilateral nephrostomy catheters. Bowel-gas pattern suggest adynamic/reflex ileus. Reading Location: [facility] Charges/Coding Visit Charges Inpatient E&M: 95379 Subs Hosp L2 02/26/25 1238 <Electronically signed by Handy Royal MD> Cosigner Signature (if applicable): CC: ~ Signed [facility] Work Phone: 1(918) 509-615705-10-2025 Progress note Author Salena Paredes [facility] Note Date/Time February 26, 2025 11:00 am [facility] Medical Records Department [address] [place] [address] Progress Note - Surgery 02/26/25 1021 MR#: [id number] Acct: [id number] Name: ANDREW POSADA Yamila Rep #:[id number] : 1965 59 From: Salena Harris PCP: Care Physician,No Primary Status :ADM IN Location: [facility] MF968-3 Subjective Subjective Patient seen and examined during [...] <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 throughout body [...] 87.7 H, Lymph % (Auto) 3.2 L, Elk % (Auto) 8.7, Eos % (Auto) 0.0, [...] then terminated by Dr. Chandler. Reading Location: [facility]UB X-Ray 02/25/25 16:45 IMPRESSION: See above [...] Paredes MD General Surgery Endocrine Surgery Pager: [facility] [address] [place] [address], [address] [place] [address] Office: [phone] Charges/Coding Visit Charges Inpatient E&M: 58701 Subs Hosp L2 02/26/25 1100 <Electronically signed by Salena Paredes MD> Cosigner Signature (if applicable): CC: ~ Signed [facility] Work Phone: 1([phone]) 185-612205-10-2025 Progress note [facility] Medical Records Department [address] [place] [address] Progress Note - Hospitalist 02/26/25 1231 MR#: [id number] Acct: [id number] Name: ANDREW POSADA Rep #:[id number] : 1965 59 From: Handy Harris PCP: Care Physician,No Primary Status :ADM IN Location: [facility] GF683-0 Reason for Visit Reason for Visit: Diagnoses [...] <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 throughout body [...] 87.7 H, Lymph % (Auto) 3.2 L, Elk % (Auto) 8.7, Eos % (Auto) 0.0, [...] 02/25/25 16:45 IMPRESSION: See above Reading Location[facility] Physical Exam Narrative Seen and examined [...] shock if needed Total time spent in nyei-rr-rghx encounter in discussion of advanced directive 17 minutes. Laboratory Results 02/24/25 07:35: Phosphorus 2.7, Magnesium 2.1 02/24/25 16:35: Urine Color Yellow, Urine Clarity Turbid, Urine pH 6.0, Ur Specific [place] 1.025, Urine Protein 500 H, Urine Glucose [...] 80.9 H, Lymph % (Auto) 6.2 L, Elk % (Auto) 11.9 H, Eos % (Auto) 0.1, Baso % (Auto) 0.4, Absolute Neuts (auto) 6.7, Absolute Lymphs (auto) 0.51 L, Nucleated RBC % 0, Sodium 142, Potassium 3.2 L, Chloride 99, Carbon Dioxide 29.5, Anion Gap 14, BUN21 H, Creatinine 1.51 H, Estim Creat Clear Calc 36.73 L, Est GFR (MDRD) Non- Af 53 L, BUN/Creatinine Ratio 13.7, Tltbrny843 H, Calcium 9.6 Clinical Impression(s) from Imaging [...] hernia. 4. Inguinal hernias, bilaterally. Reading [facility] X-Ray 02/24/25 11:25 IMPRESSION: Tip of the nasogastric tube in the fundus of the stomach. Bilateral nephrostomy catheters. Bowel-gas pattern suggest adynamic/reflex ileus. 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 throughout body [...] 87.7 H, Lymph % (Auto) 3.2 L, Elk % (Auto) 8.7, Eos % (Auto) 0.0, [...] then terminated by Dr. Chandler. Reading Location: [facility] KUB X-Ray 02/25/25 16:45 IMPRESSION: See above [...] Paredes MD General Surgery Endocrine Surgery Pager: [facility] [address] [place] [address], [address] [place] [address] Office: [phone] Charges/Coding Visit Charges Inpatient E&M: 45021 Subs Hosp L2 02/26/25 1100 Cosigner Signature (if applicable): CC: ~ Signed [facility]05-09-2025 Consult note Author Forrest Lancaster [facility] Note Date/Time February 25, 2025 5:25pm [facility] Medical Records Department [address] [place] [address] Anesthesia Postop Eval II 02/25/25 1725 MR#: [id number] Acct: [id number] Name: ANDREW POSADA Rep #:[id number] : 1965 59 From: Forrest Lancaster MD PCP: Care Physician,No Primary Status :ADM IN Y Race: C Location: [address] Anesthesia Postop Eval I Sum Postop Eval Completion status Anesthesia document: Postop Eval 1 completed: Yes Anesthesia Postop Eval I Summary Anesthesia Postop Eval I Summary: Anesthesia Postop Eval I: Assessment Summary 3 Airway patent Yes 02/25/25 16:39 LINE [email or web address] Spontaneous unlabored Yes 02/25/25 16:39 LINE [email or web address] respirations Mental status Asleep 02/25/25 16:39 LINE MANAGER.[email or web address] nausea No 02/25/25 16:39 LINE MANAGER.[email or web address] Vomiting No 02/25/25 16:39 LINE [email or web address] Anesthesia Postop Eval I: Fluid Summary Crystalloid volume administer 2,400 02/25/25 16:39 LINE MANAGER.PKEL (ml) Colloids volume administered ( ml) Blood Product volume administered (ml) Total IV fluid infused 2,400 02/25/25 16:39 LINE MANAGER.[email or web address] Anesthesia Postop Eval I: Summary Notes Anesthesia Complication No 02/25/25 16:39 LINE [email or web address] Anesthesia Complication Comment: Post-operative progress note Anesthesia: Postop Eval II Evaluation Mental status: Awake and Calm Pain Level: 5 nausea: No Vomiting: No 02/25/25 1725 <Electronically signed by Forrest Belcher D> Date _ Forrest Lancaster MD Cosigner Signature: Date CC: ~ Signed [facility] Work Phone: [phone]) [phone] Consult note Author Donnell Carballo [facility] Note Date/Time February 25, 2025 4:39pm [facility] Medical Records Department [address] [place] [address] Anesthesia Postop Eval I 02/25/25 1639 MR#: [id number] Acct: [id number] Name: ANDREW POSADA Rep #:[id number] : 1965 59 From: Donnell Carballo CRNA PCP: Care Physician,No Primary Status :ADM IN Y Race: C Location: [facility] MS324 -1 Anesthesia: Postop Eval I Current [...] CRNA Cosigner Signature: Date CC: ~ Signed [facility] Work Phone: [phone]) 790-698505-09-2025 Radiology Diagnostic study note [facility] Imaging Services [address] [place] [address] Abdomen Single View (Portable) MR#: [id number] Acct: [id number] Name: TIMANDREW ALVARADO Yamila Rep #: [id number] : 1965 M 59 From: Taya Alfonso MD PCP: Care Physician,No Primary Status: ADM IN Study:Abdomen Single View (Portable) Date of Exam: 02/25/25 Exam# [id number] Ordering Dr: St ghada Chandler MD PROCEDURE: [...] View (Portable) IMPRESSION: See above Reading Location: [facility] CC: Dr. Kunal Chandler MD; No Primary Care Physician ~ Software Packager: Signed [facility]05-09-2025 Procedure note [facility] Medical Records Department [address] [place] [address] Operative Report 02/25/25 1712 MR#: [id number] Acct: [id number] Name: ANDREW POSADA Rep #:[id number] : 1965 59 From: Kunal Chandler MD PCP: Care Physician,No Primary Status :ADM IN Location: [place] [address]294-1 Problems Associated Problem List Diagnoses (1) SBO (small bowel obstruction): Multi Select Codes Digestive Digestive CPT Codes: 04719 Freeing of bowel adhesion, 13983 Exploration of abdomen and Other Procedure See Notes (62824 -- loop illeostomy ) Endocrine,Ocular,Nerv, Auditory Endocrine,Ocular,Nerv, Auditory CPT Codes: Other Procedure See Report (91218 bilateral piyush block ) Operative Report (Standard) Operative Information Date of Procedure: 02/25/25 Pre-Operative Diagnosis: Small bowel obstruction Post-Operative Diagnosis: Small bowel obstruction secondary to adhesions/radiation to the pelvis Surgery/Procedure Performed: 1. Diagnostic laparoscopy 2. Exploratory laparotomy 3. Extensive lysis of adhesions 4. Diverting loop jejunostomy 5. Bilateral tap block tempering machine operator: Yes Senior International Tax Manager: Omero Lindsay Tasks completed by machinist first class: Closing and Retracting Additional per diem physical therapist assistant?: Yes Additional Activity Therapy Teacher #2: Eber Leon Tasks completed by per diem physical therapist assistant #2: Other (dissecting tissue ) Type [...] just recently finished chemotherapy. He presented to [facility] yesterday with bowel obstruction. Emmanuel had a [...] to the point of transition. A skin teller was created in the rightlower quadrant. The fascia was incised in a cruciate manner using electrocautery. A loop of small bowel was brought up. I suspect this is distal jejunum that was brought up. This was secured with a [place] temporarily. The abdomen was then copiously irrigated. [...] Chandler MD; No Primary Care Physician~ Signed [facility]05-09-2025 Consult note [facility] Medical Records Department [address] [place] [address] Anesthesia Postop Eval II 02/25/25 1725 MR#: [id number] Acct: [id number] Name: ANDREW POSADA Rep #:[id number] : 1965 59 From: Forrest Lancaster MD PCP: Care Physician,No Primary Status :ADM IN Y Race: C Location: [place] [address] -1 Anesthesia Postop Eval I Sum Postop Eval Completion status Anesthesia document: Postop Eval 1 completed: Yes Anesthesia Postop Eval I Summary Anesthesia Postop Eval I Summary: Anesthesia Postop Eval I: Assessment Summary 3 Airway patent Yes 02/25/25 16:39 LINE [email or web address] Spontaneous unlabored Yes 02/25/25 16:39 LINE [email or web address] respirations Mental status Asleep 02/25/25 16:39 LINE [email or web address] nausea No 02/25/25 16:39 LINE [email or web address] Vomiting No 02/25/25 16:39 LINE [email or web address] Anesthesia Postop Eval I: Fluid Summary Crystalloid volume administer 2,400 02/25/25 16:39 LINE MANAGER.[email or web address] (ml) Colloids volume administered ( ml) Blood Product volume administered (ml) Total IV fluid infused 2,400 02/25/25 16:39 LINE [email or web address] Anesthesia Postop Eval I: Summary Notes Anesthesia Complication No 02/25/25 16:39 LINE [email or web address] Anesthesia Complication Comment: Post-operative progress note Anesthesia: Postop Eval II Evaluation Mental status: Awake and Calm Pain Level: 5 nausea: No Vomiting: No 02/25/25 1725 D> Date _ Forrest Lancaster MD Cosigner Signature: Date CC: ~ Signed [facility]05-09-2025 Consult note [facility] Medical Records Department [address] [place] [address] Anesthesia Postop Eval I 02/25/25 1639 MR#: [id number] Acct: [id number] Name: ANDREW POSADA Rep #:[id number] : 1965 59 From: Donnell Carballo CRNA PCP: Care Physician,No Primary Status :ADM IN Y Race: C Location: [place] [address] Anesthesia: Postop Eval I Current Vital Signs [...] Eval 1 completed: Yes 02/25/25 1639 y LINE MANAGER> Date _ Donnell Odenigner Signature: Date CC: ~ Signed [facility]05-09-2025 Progress note Author Handy Royal [facility] Note Date/Time February 25, 2025 12:59p m [facility] Medical Records Department [address] [place] [address] Progress Note - Hospitalist 02/25/25 1253 MR#: [id number] Acct: [id number] Name: ANDREW POSADA Rep #:[id number] : 1965 59 From: Handy Harris PCP: Care Physician,No Primary Status :ADM IN Location: [place] [address] Reason for Visit Reason for Visit: Diagnoses [...] <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 throughout body [...] Clarity Turbid, Urine pH 6.0, Ur Specific [place] 1.025, Urine Protein 500 H, Urine Glucose [...] 80.9 H, Lymph % (Auto) 6.2 L, Elk % (Auto) 11.9 H, Eos % (Auto) [...] then terminated by Dr. Chandler. Reading Location: [place] [address] Physical Exam Narrative Seen and examined Patient [...] shock if needed Total time spent in ophn-xs-ctyz encounter in discussion of advanced directive 17 minutes. Laboratory Results 02/24/25 07:35: Phosphorus 2.7, Magnesium 2.1 02/24/25 16:35: Urine Color Yellow, Urine Clarity Turbid, Urine pH 6.0, Ur Specific [place] 1.025, Urine Protein 500 H, Urine Glucose [...] 80.9 H, Lymph % (Auto) 6.2 L, Elk % (Auto) 11.9 H, Eos % (Auto) [...] hernia. 4. Inguinal hernias, bilaterally. Reading Location[facility] X-Ray 02/24/25 11:25 IMPRESSION: Tip of the nasogastric tube in the fundus of the stomach. Bilateral nephrostomy catheters. Bowel-gas pattern suggest adynamic/reflex ileus. Reading Location: [facility] Charges/Coding Visit Charges Inpatient E&M: 64014 Subs Hosp L2 02/25/25 1259 <Electronically signed by Handy Royal MD> Cosigner Signature (if applicable): CC: ~ Signed [facility] Work Phone: [phone]) [phone] Consult note Author Forrest Lancaster [facility] Note Date/Time February 25, 2025 12:27p [facility] Medical Records Department [address] [place] [address] Pre-Anesthesia Evaluation 02/25/25 1159 MR#: [id number] Acct: [id number] Name: ANDREW POSADA Yamila Rep #:[id number] : 1965 59 From: Forrest Lancaster MD PCP: Care Physician,No Primary Status :ADM IN Y Race: C Location: [place] [address] ASA Classification* ASA Classification ASA Classification: 3 [...] vs ex-lap Anesthesia History 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 Hx Hospitalization Yes: 03/30/2024 COLON 07/14/24 13:14 RESECTION IN [place] Any Problems With Anesthesia No 07/14/24 13:14 [...] take am of surgery PONV PONV - heater operator: PONV - heater operator Female HX of Motion Sickness HX of N/V After Surgery Non-Smoker Duration of Surgery greater than 60 minutes Number of Risk Factors PONV Score Height & Weight Height & Weight: Anesthesia: Height & Weight Height 5 ft 8.11 in 02/25/25 11:32 Weight: 49.3 kg 02/25/25 11:32 Body Mass Index (BMI) 16.5 02/25/25 06:00 Respiratory Assessment Respiratory Assessment - heater operator: Respiratory Tract Infection Hx - heater operator Hx Respiratory Tract Infection No 07/14/24 13:14 STOP Sleep Apnea STOP Sleep Apnea - heater operator: STOP Sleep Apnea - heater operator Hx Hypertension Yes 02/24/25 16:30 Hx Sleep [...] Tobacco Use History Tobacco Use History - heater operator: Tobacco Use History - heater operator Tobacco Use Smoking Status Never smoker 02/24/25 12:38 Hx Tobacco Use No 02/24/25 12:38 Years Smoking Packs Smoked per Day Smoking Cessation Date was within the last 15 years Hx Smoking Cessation Date Hx Smoking Cessation Counseling Hematologic Medial History Hematologic Hx - heater operator: Hematologic Medical Hx - manager play Hx of Blood Transfusion Yes 02/24/25 12:38 [...] confused, unrespo /Reproduction History /Reproductive History - heater operator: /Reproductive Hx- heater operator Hx Now Gestational Age (in weeks): EDC: [...] UD PRN [facility] Hypokalemia UTI (urinary [...] MD Cosigner Signature: Date CC: ~ Signed [facility] Work Phone: [phone]) 182-362105-09-2025 Progress note Author Kunal [facility] Note Date/Time February 25, 2025 11:51a m [facility] Medical Records Department [address] [place] [address] Progress Note - Surgery 02/25/25 1150 MR#: [id number] Acct: [id number] Name: ANDREW POSADA Rep #:[id number] : 1965 59 From: Kunal Chandler MD PCP: Care Physician,No Primary Status :ADM IN Location: [place] [address]-1 Subjective Subjective Small bowel follow-through was attempted [...] Clarity Turbid, Urine pH 6.0, Ur Specific [place] 1.025, Urine Protein 500 H, Urine Glucose [...] 80.9 H, Lymph % (Auto) 6.2 L, Elk % (Auto) 11.9 H, Eos % (Auto) [...] then terminated by Dr. Chandler. 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 throughout body [...] Clarity Turbid, Urine pH 6.0, Ur Specific [place] 1.025, Urine Protein 500 H, Urine Glucose [...] 80.9 H, Lymph % (Auto) 6.2 L, Elk % (Auto) 11.9 H, Eos % (Auto) [...] then terminated by Dr. Chandler. Reading Location: [place] [address] Physical Exam Narrative Seen and examined Patient [...] shock if needed Total time spent in erqa-ul-dyqp encounter in discussion of advanced directive 17 minutes. Laboratory Results 02/24/25 07:35: Phosphorus 2.7, Magnesium 2.1 02/24/25 16:35: Urine Color Yellow, Urine Clarity Turbid, Urine pH 6.0, Ur Specific [place] 1.025, Urine Protein 500 H, Urine Glucose [...] 80.9 H, Lymph % (Auto) 6.2 L, Elk % (Auto) 11.9 H, Eos % (Auto) 0.1, Baso % (Auto) 0.4, Absolute Neuts (auto) 6.7, Absolute Lymphs (auto) 0.51 L, Nucleated RBC % 0, Sodium 142, Potassium 3.2 L, Chloride 99, Carbon Dioxide 29.5, Anion Gap 14, BUN21 H, Creatinine 1.51 H, Estim Creat Clear Calc 36.73 L, Est GFR (MDRD) Non- Af 53 L, BUN/Creatinine Ratio 13.7, Odqwxtd720 H, Calcium 9.6 Clinical Impression(s) from Imaging [...] Location: [facility] Charges/Coding Visit Charges Inpatient E&M: 24893 Subs Hosp L2 02/25/25 1259 Cosigner Signature (if applicable): CC: ~ Signed [facility]05-09-2025 Consult note [facility] Medical Records Department [address] [place] [address] Pre-Anesthesia Evaluation 02/25/25 1159 MR#: [id number] Acct: [id number] Name: ANDREW POSADA Rep #:[id number] : 1965 59 From: Forrest Lancaster MD PCP: Care Physician,No Primary Status :ADM IN Y Race: C Location: [place] [address] ASA Classification* ASA Classification ASA Classification: 3 [...] vs ex-lap Anesthesia History 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 Hx Hospitalization Yes: 03/30/2024 COLON 07/14/24 13:14 RESECTION IN [place] Any Problems With Anesthesia No 07/14/24 13:14 [...] take am of surgery PONV PONV - heater operator: PONV - heater operator Female HX of Motion Sickness HX of N/V After Surgery Non-Smoker Duration of Surgery greater than 60 minutes Number of Risk Factors PONV Score Height & Weight Height & Weight: Anesthesia: Height & Weight Height 5 ft 8.11 in 02/25/25 11:32 Weight: 49.3 kg 02/25/25 11:32 Body Mass Index (BMI) 16.5 02/25/25 06:00 Respiratory Assessment Respiratory Assessment - heater operator: Respiratory Tract Infection Hx - heater operator Hx Respiratory Tract Infection No 07/14/24 13:14 STOP Sleep Apnea STOP Sleep Apnea - heater operator: STOP Sleep Apnea - heater operator Hx Hypertension Yes 02/24/25 16:30 Hx Sleep [...] Tobacco Use History Tobacco Use History - heater operator: Tobacco Use History - heater operator Tobacco Use Smoking Status Never smoker 02/24/25 12:38 Hx Tobacco Use No 02/24/25 12:38 Years Smoking Packs Smoked per Day Smoking Cessation Date was within the last 15 years Hx Smoking Cessation Date Hx Smoking Cessation Counseling Hematologic Medial History Hematologic Hx - heater operator: Hematologic Medical Hx - manager play Hx of Blood Transfusion Yes 02/24/25 12:38 [...] confused, unrespo /Reproduction History /Reproductive History - heater operator: /Reproductive Hx- heater operator Hx Now Gestational Age (in weeks): EDC: [...] UD PRN Port access or dressing change [facility] Medical History Hypokalemia UTI (urinary tract infection) [...] MD Cosigner Signature: Date CC: ~ Signed [facility]05-09-2025 Progress note [facility] Medical Records Department [address] [place] [address] Progress Note - Surgery 02/25/25 1150 MR#: [id number] Acct: [id number] Name: ANDREW POSADA Rep #:[id number] : 1965 59 From: Kunal Chandler MD PCP: Care Physician,No Primary Status :ADM IN Location: [facility] MG266-1 Subjective Subjective Small bowel follow-through was attempted [...] Clarity Turbid, Urine pH 6.0, Ur Specific [place] 1.025, Urine Protein 500 H, Urine Glucose [...] 80.9 H, Lymph % (Auto) 6.2 L, Elk % (Auto) 11.9 H, Eos % (Auto) [...] Bowel-gas pattern suggest adynamic/reflex ileus. Reading [facility] Small Bowel X-Ray 02/25/25 08:25 IMPRESSION: On [...] then terminated by Dr. Chandler. Reading Location: [place] [address] 02/25/25 1151 Cosigner Signature (if applicable): CC: ~ Signed [facility]05-09-2025 Radiology Diagnostic study note [facility] Imaging Services [address] [place] [address] Small Bowel Series Only MR#: [id number] Acct: [id number] Name: TIMANETTEANDREW A Rep #: [id number] : 1965 M 59 From: Armond Barajas MD PCP: Care Physician,No Primary Status: ADM IN Study:Small Bowel Series Only Date of Exam: 02/25/25 Exam# [id number] Ordering Dr: St ghada Chandler MD EXAM: [...] then terminated by Dr. Chandler. Reading Location: [place] [address] CC: Dr. Kunal Chandler MD; No Primary Care Physician ~ Software Packager: Signed [facility]05-09-2025 Progress note Author Kunal Chandler [facility] Note Date/Time February 25, 2025 8:38am [facility] Medical Records Department [address] [place] [address] Progress Note - Surgery 02/25/25 0834 MR#: [id number] Acct: [id number] Name: ANDREW POSADA Rep #:[id number] : 1965 59 From: Kunal Chandler MD PCP: Care Physician,No Primary Status :ADM IN Location: MS3 BY821-8 Subjective Subjective Patient feeling better this morning [...] Clarity Turbid, Urine pH 6.0, Ur Specific [place] 1.025, Urine Protein 500 H, Urine Glucose [...] 80.9 H, Lymph % (Auto) 6.2 L, Elk % (Auto) 11.9 H, Eos % (Auto) [...] hernia. 4. Inguinal hernias, bilaterally. [facility] 02/24/25 [...] his colostomy bag. RN stated that night auditor nurse just recently emptied a fairly [...] Cosigner Signature (if applicable): CC: ~ Signed [facility] Work Phone: 1(894) 194-288705-09-2025 Progress note [facility] Medical Records Department [address] [place] [address] Progress Note - Surgery 02/25/25 0834 MR#: [id number] Acct: [id number] Name: ANDREW POSADA Rep #:[id number] : 1965 59 From: Kunal Chandler MD PCP: Care Physician,No Primary Status :ADM IN Location: [place] [address]-1 Subjective Subjective Patient feeling better this morning [...] Clarity Turbid, Urine pH 6.0, Ur Specific [place] 1.025, Urine Protein 500 H, Urine Glucose [...] 80.9 H, Lymph % (Auto) 6.2 L, Elk % (Auto) 11.9 H, Eos % (Auto) [...] hernia. 4. Inguinal hernias, bilaterally. Reading [facility] 02/24/25 [...] his colostomy bag. RN stated that night auditor nurse justrecently emptied a fairly full [...] Cosigner Signature (if applicable): CC: ~ Signed [facility]05-08-2025 Consult note Author Kunal Chandler [facility] Note Date/Time February 24, 2025 4:07pm [facility] Medical Records Department [address] [place] [address] Consultation - Surgical 02/24/25 1601 MR#: [id number] Acct: [id number] Name: ANDREW POSADA Rep #:[id number] : 1965 59 From: Kunal Chandler MD PCP: Care Physician,No Primary Status :ADM IN Location: [facility] BL596-1 Assessment & Plan Assessment/Plan (1) SBO (small [...] colostomy last year. This was performed in [place] for malignancy. He is currently being seen [...] treatment for the small bowel obstruction . [facility] Medical History Hypokalemia UTI (urinary tract infection) [...] 84.7 H, Lymph % (Auto) 4.5 L, Elk % (Auto) 9.9, Eos % (Auto) 0.1, [...] hernia. 4. Inguinal hernias, bilaterally. Reading [facility] 02/24/25 11:25 IMPRESSION: Tip of the nasogastric tube in the fundus of the stomach. Bilateral nephrostomy catheters. Bowel-gas pattern suggest adynamic/reflex ileus. Reading Location: [facility] Charges/Coding Visit Charges Inpatient E&M: 61931 Init Hosp L3 02/24/25 1607 <Electronically signed by Kunal Chandler MD> Cosigner Signature (if applicable): CC: No Primary Care Physician~ Signed [facility] Work Phone: 1(486) 783-727705-08-2025 History and physical note Author Handy Royal [facility] Note Date/Time February 24, 2025 3:27pm [facility] Medical Records Department [address] [place] [address] H&P Exam - Hospitalist 02/24/25 1129 MR#: [id number] Acct: [id number] Name: ANDREW POSADA Rep #:[id number] : 1965 59 From: Handy Harris PCP: Care Physician,No Primary Status :ADM IN Location: AR3 NE809-9 HPI - General General Date of Admission: 02/24/25 Date of Service: 02/24/25 Chief Complaint: Last BM Friday night. Not passing flatus at home. HPI Narrative ANDREW POSADA, is a 59 M Was admitted with not moving his bowel, nausea vomitingsince Friday night. His last bowel movement on Friday was well-formed with noblood. He had APR with colostomy in [place] in March 2024. Prior to that he had chemotherapy about 10 days to 2 weeks ago, second chemotherapy regimen after 4 months. Denies fever or chills. In September 2024 he had bilateral nephrostomy in [facility], [facility]. In ED, patient had CT abdomen which showed multiple distended small bowel loops with air-fluid levels measuring up to 3.7 cm concerning for small bowel obstruction and possible transition in RLQ. [facility] Medical History Hypokalemia UTI (urinary tract infection) [...] 84.7 H, Lymph % (Auto) 4.5 L, Elk % (Auto) 9.9, Eos % (Auto) 0.1, [...] hernia. 4. Inguinal hernias, bilaterally. Reading Location: [facility] Assessment & Plan Assessment/Plan (1) SBO (small [...] shock if needed Total time spent in mryg-lh-elad encounter in discussion of advanced directive 17 minutes. Laboratory Results 02/24/25 07:35: WBC 7.8, RBC 3.77 L, Hgb 12.6 L, Hct 35.1 L, MCV 93.1, MCH 33.4 H, MCHC 35.9, RDW Std Deviation 49.7 H, RDW Coeff of Rosalee 14.9 H, Plt Count 111 L, MPV 9.5, Immature Gran % (Auto) 0.400, Neut % (Auto) 84.7 H, Lymph % (Auto) 4.5 L, Elk % (Auto) 9.9, Eos % (Auto) 0.1, [...] Location: [facility] Charges/Coding Visit Charges Inpatient E&M: 75813 Init Hosp L3 Procedures Hospitalists Procedures: 41483 Advncd Care Plan 30 Min 02/24/25 1527 <Electronically signed by Handy Royal MD> Cosigner Signature (if applicable): CC: Dr. Handy Royal MD; No Primary Care Physician~ Signed [facility] Work Phone: 1(544) 419-925405-08-2025 Discharge summary Author Gwyn Esquivel [facility] Note Date/Time February 24, 2025 2:30pm [facility] Medical Records Department [address] [place] [address] Emergency Department Summary 02/24/25 MR#: [id number] Acct: [id number] Name: ANDREW POSADA Rep #:[id number] : 1965 59 From: Gwyn Turner PCP: Care Physician,No Primary Status :ADM IN Location: [place] [address] HPI History of Present Illness Chief Complaint: General Illness Informant: patient and spouse/S.O. Narrative Narrative: Presents generalized illness over the last 5 days. States unable to eat. Reports yesterday was able to eat some soup at noon by supper came back up. Nausea. Colostomy March of last year performed in [place]. He had a colonoscopy finding a mass 2 weeks prior. They went to [place] due to knowing somebody with similar issues [...] in the past. [facility] similar symptoms: [facility] Medical History Hypokalemia UTI (urinary tract infection) [...] Surgery, hospitalist This note was generated with Lovely dictation software. It may contain incorrectwords, spelling, [...] 84.7 H Lymph % (Auto) 4.5 L Elk % (Auto) 9.9 Eos % (Auto) 0.1 [...] hernia. 4. Inguinal hernias, bilaterally. Reading Location: [facility] KUB X-Ray 02/24/25 11:25 IMPRESSION: Tip of the nasogastric tube in the fundus of the stomach. Bilateral nephrostomy catheters. Bowel-gas pattern suggest adynamic/reflex ileus. Reading [facility] Discharge Plan Dx/Rx/DC Orders Clinical Impression: SBO (small bowel obstruction), Malignant neoplasm of rectum, Vomiting, Nephrostomy present Disposition Disposition: [facility] Discharge Date/Time: 02/24/25 12:02 What to do if you have Problems For any increased pain, shortness of breath, bleeding, nausea or vomiting, chestpain, or any unexpected problems, contact your Primary Care Provider. Call [facility] ([phone]) or report to the closest Emergency Room. Call 911 if necessary. 02/24/25 1430 <Electronically signed by Gwyn Turner> Cosigner Signature (if applicable): CC: Dr. Guy Ho MD; No Primary Care Physician ~ Signed [facility] Work Phone: 1(397) 313-338705-08-2025 Consult note [facility] Medical Records Department [address] [place] [address] Consultation - Surgical 02/24/25 1601 MR#: [id number] Acct: [id number] Name: ANDREW POSADA Rep #:[id number] : 1965 59 From: Kunal Chandler MD PCP: Care Physician,No Primary Status :ADM IN Location: [facility] CL212-0 Assessment & Plan Assessment/Plan (1) SBO (small [...] colostomy last year. This was performed in [place] for malignancy. He is currently being seen [...] treatment for the small bowel obstruction . [facility] Medical History Hypokalemia UTI (urinary tract infection) [...] 84.7 H, Lymph % (Auto) 4.5 L, Elk % (Auto) 9.9, Eos % (Auto) 0.1, [...] hernia. 4. Inguinal hernias, bilaterally. Reading [facility] K[facility] X-Ray 02/24/25 11:25 IMPRESSION: Tip of the nasogastric tube in the fundus of the stomach. Bilateral nephrostomy catheters. Bowel-gas pattern suggest adynamic/reflex ileus. Reading Location: [facility] Charges/Coding Visit Charges Inpatient E&M: 48541 Init Hosp L3 02/24/25 1607 Cosigner Signature (if applicable): CC: No Primary Care Physician~ Signed [facility]05-08-2025 History and physical note [facility] Medical Records Department [address] [place] [address] H&P Exam - Hospitalist 02/24/25 1129 MR#: [id number] Acct: [id number] Name: ANDREW POSADA Rep #:[id number] : 1965 59 From: Handy Harris PCP: Care Physician,No Primary Status :ADM IN Location: [facility] LW139-3 HPI - General General Date of Admission: 02/24/25 Date of Service: 02/24/25 Chief Complaint: Last BM Friday night. Not passing flatus at home. HPI Narrative ANDREW POSADA, is a 59 M Was admitted with not moving his bowel, nausea vomitingsince Friday night. His last bowel movement on Friday was well-formed with noblood. He had APR with colostomy in [place] in March 2024. Prior to that he had chemotherapy about 10 days to 2 weeks ago, second chemotherapyregimen after 4 months. Denies fever or chills. In September 2024 he had bilateral nephrostomy in [facility]. In ED, patient had CT abdomen which showed multiple distended small bowel loops with air-fluid levels measuring up to 3.7 cm concerning for small bowel obstruction and possible transition in RLQ. [facility] Medical History Hypokalemia UTI (urinary tract infection) [...] 84.7 H, Lymph % (Auto) 4.5 L, Elk % (Auto) 9.9, Eos % (Auto) 0.1, [...] hernia. 4. Inguinal hernias, bilaterally. Reading Location: [facility] Assessment & Plan Assessment/Plan (1) SBO (small [...] shock if needed Total time spent in pzhx-co-pcsr encounter in discussion of advanced directive 17 minutes. Laboratory Results 02/24/25 07:35: WBC 7.8, RBC 3.77 L, Hgb 12.6 L, Hct 35.1 L, MCV 93.1, MCH 33.4 H, MCHC 35.9, RDW Std Deviation 49.7 H, RDW Coeff of Rosalee 14.9 H, Plt Count 111 L, MPV 9.5, Immature Gran % (Auto) 0.400, Neut % (Auto) 84.7 H, Lymph % (Auto) 4.5 L, Elk % (Auto) 9.9, Eos % (Auto) 0.1, [...] hernia. 4. Inguinal hernias, bilaterally. [facility] X-Ray 02/24/25 11:25 IMPRESSION: Tip of the nasogastric tube in the fundus of the stomach. Bilateral nephrostomy catheters. Bowel-gas pattern suggest adynamic/reflex ileus. Reading Location: [facility] Charges/Coding Visit Charges Inpatient E&M: 86159 Init Hosp L3 Procedures Hospitalists Procedures: 24490 Advncd Care Plan 30 Min 02/24/25 1527 Cosigner Signature (if applicable): CC: Dr. Handy Royal MD; No Primary Care Physician~ Signed [facility]05-08-2025 Discharge summary [facility] Medical Records Department [address] [place] [address] Emergency Department Summary 02/24/25 MR#: [id number] Acct: [id number] Name: ANDREW POSADA Rep #:[id number] : 1965 59 From: Gwyn Turner PCP: Care Physician,No Primary Status :ADM IN [facility] History of Present Illness Chief Complaint: General Illness Informant: patient and spouse/S.O. Narrative Narrative: Presents generalized illness over the last 5 days. States unable to eat. Reports yesterday was ableto eat some soup at noon by supper came back up. Nausea. Colostomy March of last year performed in [place]. He had a colonoscopy finding a mass 2 weeks prior. They went to [place] due to knowing somebody with similar issues [...] Surgery, hospitalist This note was generated with MetaNotesation software. It may contain incorrectwords, spelling, and [...] 84.7 H Lymph % (Auto) 4.5 L Elk % (Auto) 9.9 Eos % (Auto) 0.1 [...] hernia. 4. Inguinal hernias, bilaterally. Reading [facility] X-Ray 02/24/25 11:25 IMPRESSION: Tip of the nasogastric tube in the fundus of the stomach. Bilateral nephrostomy catheters. Bowel-gas pattern suggest adynamic/reflex ileus. Reading Location: [facility] Discharge Plan Dx/Rx/DC Orders Clinical Impression: SBO (small bowel obstruction), Malignant neoplasm of rectum, Vomiting, Nephrostomy present Disposition Disposition: Acute Care Hospital [facility] Discharge Date/Time: 02/24/25 12:02 What to do if you have Problems For any increased pain, shortness of breath, bleeding, nausea or vomiting, chestpain, or any unexpected problems, contact your Primary Care Provider. Call [facility] ([phone]) or report tothe closest Emergency Room. Call 911 if necessary. 02/24/25 1430 Cosigner Signature (if applicable): CC: Dr. Guy Ho MD; No Primary Care Physician ~ Signed [facility]05-08-2025 Radiology Diagnostic study note [facility] Imaging Services [address] [place] [address] Abdomen Single View (Portable) MR#: [id number] Acct: [id number] Name: ANDREW POSADA Rep #: [id number] : 1965 M 59 From: Gabriela Polk MD PCP: Care Physician,No Primary Status: REG ER Study:Abdomen Single View (Portable) Date of Exam: 02/24/25 Exam# [id number] Ordering Dr: Gwyn Esquivel DO PROCEDURE: ABDOMEN [...] Esquivel DO; No Primary Care Physician ~ Software Packager: Signed [facility]05-08-2025 Radiology Diagnostic study note [facility] Imaging Services [address] [place], [place] [address] Abdomen/Pel W ORAL Cont Only MR#: [id number] Acct: [id number] Name: ANDREW POSADA Rep #: [id number] : 1965 M 59 From: Bessie Esquivel MD PCP: Care Physician,No Primary Status: REG ER Study:Abdomen/Pel W ORAL Cont Only Date of Ex am: 02/24/25 Exam# [id number] Ordering Dr: Gwyn Esquivel DO EXAM: CT [...] hernia. 4. Inguinal hernias, bilaterally. Reading Location: [facility] CC: Dr. Gwyn Esquivel, DO; No Primary Care Physician ~ Software Packager: Signed [facility]05-06-2025 Evaluation + Plan note* Assessment & Plan Note - Greg Mason MD - 02/22/2025 8:10 PM EDTAssociated Problem(s): Ureteral stricture Patient with b/l ureteral strictures as well as JOHN. Will plan for cystoscopy, b/l nephrostograms and UDS. If bladder is SAFE, will proceed with b/l reimplants. Then AUS in the future. [facility]05-06-2025 Miscellaneous Notes* Assessment & Plan Note - Greg Mason MD - 02/22/2025 8:10 PM EDTAssociated Problem(s): Ureteral stricture Patient with b/l ureteral strictures as well as JOHN. Will plan for cystoscopy, b/l nephrostograms and UDS. If bladder is SAFE, will proceed with b/l reimplants. Then AUS in the future. documented in this [facility]OS[facility] History of Present illness Narrative* Greg Mason MD - 02/22/2025 1:20 PM EDT UROLOGY OUTPATIENT CONSULTATION: HISTORY OF PRESENT ILLNESS Andrew Posada is a 59 y.o. 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 INTERVENTIONAL RADIOLOGY (VIR) SIGMOIDOSCOPY W/ BX N/A 06/25/2024 Laterality: N/A; Surgeon: Hilary Lewis MD; Location: [facility] PERIOP DRAINAGE BY CATHETER PERITONEAL/RETROPERITONEAL PERCUTANEOUS W/ IMAGING GUIDANCE Right 05/07/2024 Laterality: Right; Surgeon: Catherine Delatorre II, MD; Location: [facility] INTERVENTIONAL RADIOLOGY (CT) DRAINAGE BY CATHETER PERITONEAL/RETROPERITONEAL PERCUTANEOUS W/ IMAGING GUIDANCE N/A 04/30/2024 Laterality: N/A; Surgeon: Catherine Delatorre II, MD; Location: [facility] INTERVENTIONAL RADIOLOGY (CT) COLECTOMY Relevant Medications: [...] with b/l ureteral strictures as well as OJHN. Will plan for cystoscopy, b/l nephrostograms and [...] Greg Mason MD documented in this encounterOS[facility] Evaluation note * Diagnosis Onset Date Resolution [...] of rectum chronic February 14, 2025 8:51am [facility] Work Phone: 1(773) 117-664601-15-2025 Evaluation note* Diagnosis Onset Date Resolution Status [...] of rectum chronic February 24, 2025 11:29am [facility] Work Phone: 1(517) 695-225001-10-2025 History of Present illness Narrative* Hilary Lewis [...] occasionally words are mis-transcribed.) documented in this [facility]01-10-2025 Instructions* Patient Instructions* Raffy Saravia - 10/29/2024 11:30 AM EST Images from the original note were not included. Colonoscopy Date: 04/04/25 Arrival Time: 630am Location: [place] [address] 1 Day Bowel Prep with MiraLAX and Dulcolax Preparing for Your Colonoscopy or Procedure Review this information when you receive it so that you are prepared for your procedure. Look for more information from Endoscopy Scheduling or check with your doctor. For a print-friendly version, please visit [email or web address]. Important to know: You may need to [...] days before your procedure, do not eat: Cary Nuts Leafy green Popcorn Fruit with skin [...] these medicines before this procedure, please call [phone] and ask to talk to a nurse. [...] not clear after this prep, please call [phone]. The procedure may need to be rescheduled. If you have a history of heart failure, kidney disease, cirrhosis of the liver, electrolyte problems, or chronic constipation, you may need a different bowel prep medicine. Please contact the nurse at [phone] for instructions. Day before your procedure Start [...] (no milk or cream) Garrett duane or lemon-levelock soda Fruit juices you can see through, such as apple orwhite grape Gatorade, other sports drinks, or other drink mixes like Javad-Aid Popsicles (no fruit or cream) (no red or purple) Jell-O or other gelatin, without fruit (no red or purple) Clear broth or bouillon Do NOT have: Alcoholic drinks Milk Smoothies Milkshakes Cream Yogurt [place]abee juice Grapefruit juice Tomato juice Red or [...] as a living will or power of workers compensation attorney Photo identification, insurance card, and co-payment, if needed You need to have an adult come with you to your procedure You will be given medicine to help you relax during the procedure. For your safety, you will need aresponsible adult to drive you home after the procedure. Your snaker tractor driver needs to check in for the procedure with you. If your snaker tractor driver doesn t check in with you, we will need to speak to your snaker tractor driver before we can start your procedure. Your procedure will be delayed or canceled if we cannot speak to your snaker tractor driver. If your snaker tractor driver leaves the facility during the procedure, they need to give the staff a phone numberwhere they can be reached. Your snaker tractor driver needs to be within 30 minutes of the procedure location. If you take a cab, bus, or medical transportation, an adult other than the snaker tractor driver needs to ride with you for your safety. You should have an adult with you to help you at home after the procedure for at least 6 [address]. [address], operate machinery, drink alcohol, or make any legal decisions until the day after your procedure. For more information about having a colonoscopy at [facility], [email or web address]. 2013 - February 21, 2023, 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 [facility]01-03-2025 Miscellaneous Notes* Assessment & Plan Note - [...] on UDS. documented in this [facility]Mer[facility]01-[facility]-2025 Evaluation + Plan note* Assessment & Plan Note - Greg Mason MD - 10/22/2024 10:21 PM EST Associated Problem(s): Mixed stress and urge urinary incontinence Patient with mixed urinary incontinence likely from APR and a history of pelvic radiation. Will be a good AUS candidate, but only if his bladder is SAFE on UDS. [facility]01-03-2025 History of Present illness Narrative* Greg Mason MD - 10/22/2024 2:20 PM EST UROLOGY OUTPATIENT CONSULTATION: HISTORY OF PRESENT ILLNESS Andrew Posada is a 58 y.o. 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 INTERVENTIONAL RADIOLOGY (VIR) SIGMOIDOSCOPY W/ BX N/A 06/25/2024 Laterality: N/A; Surgeon: Hilary Lewis MD; Location: [facility] PERIOP DRAINAGE BY CATHETER PERITONEAL/RETROPERITONEAL PERCUTANEOUS W/ IMAGING GUIDANCE Right 05/07/2024 Laterality: Right; Surgeon: Catherine Delatorre II, MD; Location: [facility] INTERVENTIONAL RADIOLOGY (CT) DRAINAGE BY CATHETER [...] we agreed above, should further issues arise. rGeg Mason MD documented in this [facility]Mer[facility]20[facility] Nurse Note* Nursing Notes - Brittani Soria [...] and all discharge instructions in wheelchair with CUSTOMER SERVICE CORRESPONDENCE CLERK. Patient will be driven home by a friend. [facility]2024 Miscellaneous Notes* Nursing Notes - Brittani Soria [...] and all discharge instructions in wheelchair with CUSTOMER SERVICE CORRESPONDENCE CLERK. Patient will be driven home by a [...] yes Transport Request Mode of Transfer Private [facility] PCRM Discharge Note Patient discussed in medical [...] Port- had prior to admission, follows in [place] for chemo/radiology Medications No barriers anticipated in obtaining discharge medications. No prior authorizations anticipated. Reconciliation of medications to be completed by the medical team. Pt to discharge on po augmentin; no other concerns for high cost [employer] Durable Medical Equipment Event monitor- [employer] will call the patient to verify address [...] Department Center 10/22/2024 2:20 PM [facility] [place] [facility] at: Arrive to 2nd Floor, Registration [address] [facility] 10/29/2024 11:30 AM Hilary Lewis General and Gastrointestinal Surgery Outpatient Care [place] Arrive at: Arrive to 1st Floor Registration [...] discharge planning needs. DAVID Moreno Colorectal Surgery [phone] If any changes to this individualized plan of care during evening and weekend hours and assistance is needed, please page the quality control tech [facility] at [phone]. * Plan of Care - Flory Perez [...] monitor Flory Perez MD General Surgery PGY-1 #[id number] * Nursing Notes - Yesy Barrios RN - 10/18/2024 12:32 AM EST Paged Flory Perez MD @ 0030 RE: Tim [id number]: Please call [phone] regarding pt's recent urine incontinence. Thanks, Yesy [...] Pennington RN - 10/16/2024 5:53 PM EST @4533 paged Kori Cuellar MD- 09930: Tim: FYI, L neph tube is now pink like his R neph tube. thanks! [phone] * Nursing Notes - Racahel Hanley RN - 10/15/2024 6:49 PM EST [...] 10/15/2024 6:45 PM EST Paged team:Andrew Posada [id number]: pt just had 8 beat run of v-tach. Pt asymptomatic Rachael [phone] * Plan of Care - Megan Winston [...] for questions or concerns. Megan Winston MD [employer] of Clinical Medicine Division of Nephrology * Nursing Notes - Susie Fuentes RN - 10/15/2024 9:57 AM EST Initial Assessment Referral Information Arrived From: emergency department Readmission Information Was patient readmitted within 30 Days?: No Information Source Information Source: patient , spouse Information Source Name: Brandon Posada Information Source Number: see demographic sheet Outpatient Providers Outpatient Providers Updated In IHIS: Yes Contact Information Experimental Assembler/SW Added to Care Team: Yes This [employer] Delivery Driver is Primary Experimental Assembler/SW: Yes Experimental Assembler Name: Susie Fuentes Experimental Assembler's Social Work Contact Name: Zully Aburto Options Advisor's Living Environment Lives With: spouse, child(brian), adult [...] preferred) Initial Discharge Planning Home Care Services (AUTOMOTIVE SOFTWARE ENGINEER): No Home Therapies (AUTOMOTIVE SOFTWARE ENGINEER): None DME (AUTOMOTIVE SOFTWARE ENGINEER): None, Ostomy Supplies Medical Supplies (AUTOMOTIVE SOFTWARE ENGINEER): Ostomy Supplies Patient Goal for Discharge: Get [...] Source Number: see demographic sheet Contact Information Experimental Assembler/SW Added to Care Team: Yes This [employer] Delivery Driver is Primary Experimental Assembler/SW: Yes Experimental Assembler Name: Susie Fuentes Experimental Assembler's Social Work Contact Name: Zully Aburto Options Advisor's Living Environment Lives With: spouse, child(brian), adult [...] at home, spouse to assist Port- had AUTOMOTIVE SOFTWARE ENGINEER Colostomy- Had AUTOMOTIVE SOFTWARE ENGINEER Medications No barriers anticipated in obtaining discharge [...] PM Greg Mason [facility] [place] Arrive at: Arrive to 2nd Floor, Registration [address] [facility] 10/29/2024 11:30 AM Hilary Lewis General and Gastrointestinal Surgery Outpatient Care [place] Arrive at: Arrive to 1st Floor Registration [...] discharge planning needs. AUDRA Moreno Colorectal Surgery [phone] For evening and weekend discharge assistance: Pager for quality control tech PCR at [phone] Pager for quality control tech [phone] * Plan of Care - Salina Mccain MD, PhD - 10/13/2024 10:22 PM EST Andrew Posada is a 58 y.o. male with a past medical history of colonic adenocarcinoma s/p LAR March 2024 in [place] c/b dehiscence requiring end colostomy and rectal [...] Salina Mccain MD-PhD Urologic Surgery, PGY-2 Pager: #[phone] * Plan of Care - Nuria Carey [...] IV sedation medications. Pt to travel to [id number] post procedure. Post procedure orders in place [...] surgery. Miguel A Holloway MD Integrated Interventional Director Consumer PGY-6 * Nursing Notes - Margarita Bill [...] history of colonic adenocarcinoma s/p LAR in [place] c/b dehiscence requiring end colostomy and rectal [...] Laterality: N/A; Surgeon: Hilary Lewis MD; Location: [facility] PERIOP DRAINAGE BY CATHETER PERITONEAL/RETROPERITONEAL PERCUTANEOUS W/ IMAGING GUIDANCE Right 05/07/2024 Laterality: Right; Surgeon: Catherine Delatorre II, MD; Location: [facility] INTERVENTIONAL RADIOLOGY (CT) DRAINAGE BY CATHETER PERITONEAL/RETROPERITONEAL PERCUTANEOUS W/ IMAGING GUIDANCE N/A 04/30/2024 Laterality: N/A; Surgeon: Catherine Delatorre II, MD; Location: [facility] INTERVENTIONAL RADIOLOGY (CT) COLECTOMY Nutrition History [...] Lower Back, Midaxillary Line): deferred Muscle Wasting: [place] Region (Temporalis Muscle): severe Clavicle Bone Region (Pectoralis Major, Trapezius Muscles): severe Shoulder and Acromion Process Region (Deltoid Muscle): severe Dorsal Hand (Interosseous Muscle): moderate Scapular Bone Region (Trapezius, Supraspinatus, Infraspinatus Muscles): deferred Anterior Thigh and Patellar Region (Quadriceps Muscles): severe Posterior Calf Region (Gastrocnemius Muscle): severe Estimated Nutrition Needs Wt used: 49.2 kg - CBW EEN (kcal/d): 5764-1548 (30-35kcal/kg CBW) EPN (g pro/d): 59-73 (1.2-1.5g/kg [...] 10/11/2024 11:23 PM EST On admission to [facility] room 71834, from outside facility Pt. Arrived via private transportation A&Ox3 denies pain, chest pain, or SOB. Pt. VS are WDL, and a dual RN initial assessment of skin condition was performed by Lakia Dominguez RN and Mele Vo RN. Skin Assessment: Skin within defined limits:Yes Elder Score: 21 LDA Added:Yes Lakia Dominguez RN documented in this encounterU [facility] Nurse [facility]* Nursing Notes - Susie Fuentes [...] yes Transport Request Mode of Transfer Private [facility] PCRM Discharge Note Patient discussed in medical [...] Port- had prior to admission, follows in [place] for chemo/radiology Medications No barriers anticipated in [...] N/A Transportation Transportation [facility] be provided by [facility]. Education Discharge education provided by the medical team and updated in the After Visit Summary. Bedside RN to provide neph tube dressing supplies for discharge and review care. Follow Up(s) Any follow up requested by the medical team arranged. Appointments in the After Visit Summary. Future Appointments Provider Department Center 10/22/2024 2:20 PM Greg Farooq Mason [facility] [place] Arrive at: Arrive to 2nd Floor, Registration [address] EEI 10/29/2024 11:30 AM Hilary Lewis [facility] Gastrointestinal Surgery Outpatient Care [place] Arrive at: Arrive to 1st Floor Registration [...] discharge planning needs. DAVID Moreno Colorectal Surgery [phone] If any changes to this individualized plan of care during evening and weekend hours and assistance is needed, please page the quality control tech PCRM at [phone]. [facility]2024 Plan of care note* Plan of Care [...] monitor Flory Perez MD General Surgery PGY-1 #[id number] [facility] Work Phone: 1(607) 653-840012-30-2024 Nurse Note* Nursing Notes - Yesy Barrios RN - 10/18/2024 12:32 AM EST Paged Flory Perez MD @ 0030 RE: Tim [phone]: Please call [phone] regarding pt's recent urine incontinence. Thanks, Yesy Call back received: MD to come to bedside. MD at bedside @ 0100 [facility]12-29-2024 History of Present illness Narrative* Julito Cage MD - 10/17/2024 9:20 AM EST Colorectal Surgery Daily Progress Note Attending: [facility] ( [facility] Length of Stay: 6 CC: [...] 12:20 PM) - Reviewed and agree with dietetic technician registered's recommendations. Any conditions listed below are present [...] Fellow, PGY-6 10/16/2024 * Wong Todd [facility] - 10/15/2024 3:19 PM EST Department of Pharmacy Renal Documentation Note Patient: Andrew Posada [facility] Assessment and Plan: The patient is currently [...] any questions, Name: Wong Todd RPH Phone: [phone] Date/Time: 10/15/2024 3:19 PM * Siria Lockett - 10/15/2024 2:46 PM EST Introduced self and role of the cashier credit to patient/family. Provided emotional and spiritual support and the patient/family responded by sharing their experience and discussed the following: Pt sleeping, at bedside. reports that they are doing ok and are getting everything they need. She reports that they have good support. Patient/family encouraged to request a cashier credit as needed. Chaplains are available in-house 24 hours a day and 7 days a week. For urgent matters in the Catherine,please page [phone]. If the request is not urgent, please enter a consult. Consults are responded to within 24 hours. Chaplain Siria Lockett, DDiv,MAHL, [facility] Senior Equal Opportunity CounselorCatherine chin 12/05 On-Call Pager Catherine ([phone]) 10/15/24 1400 Clinical Encounter Type Visited With Family Visit Type Introduction Pastoral Time Spent 15 min Referral (Rounding) Spiritual Assessment Spiritual Observation Spirituality helpful Emotional Observation Coping well Support Observation Some support Interventions Provided Active listening;Supportive presence Facilitated Verbalization of feelings [employer] Mechanic Education [employer] Mechanic Service Available Yes Educated Family Plan of Care Continue Visiting PRN * Josh Smith [facility] - 10/15/2024 6:55 AM EST Department of Pharmacy Renal Documentation Note Patient: Andrew Posada Room/Bed: [address] [place] [address] Assessment and Plan: The patient is currently [...] Q8H. I have modified the orders in [facility] to reflect the above plan.. Please contact with any questions, Name: Josh Smith [facility] Phone: [phone] Date/Time: 10/15/2024 6:55 AM * Flory Gregory APRN-HORTICULTURE/FLORICULTURE TEACHER - 10/14/2024 3:15 PM EST Interventional Radiology [...] - these can be obtained from Distribution [id number] Please send patient home with rx for [...] significant for colonic adenocarcinoma s/p LAR in [place]/b dehiscence requiring end colostomy and rectal stump [...] monitor for post-obstructive diuresis Megan Winston MD Wire Weaver Cloth of Clinical Medicine Division of Nephrology Objective: [...] with patient to introduce self, explain social and human services assistant role during inpatient stay, and answerquestions. Patient was alert and oriented x3 and agreeable to SW visit. Spouse - Opal - was also in the room during this assessment. Contact Information: Experimental Assembler Name: See chart Experimental Assembler's Phone Number: See chart Social Work Contact Name: Zully Aburto Options Advisor's Advance Directive Discussion: Patient does not have any advance directives on file. SW inquired whether or not patient is interested in completing health care power of workers compensation attorney and/or living will paperwork during this visit. SW reviewed the documents, discussed the benefits of completing them, and provided education re: Legal NOK (LNOK). Patient declined interest in completing the documents at this time. Legal NOK: Spouse, Opal Keller, ph: [phone] Patient also lives at home with 4/8 [...] reported they are well supported by the [place] community in which they live. Source Of [...] has the electric, gas, oil, or water [employer] threatened to shut off services in your [...] support as needed. AUGUSTO shi (they/she) P Options Advisor * Julito Cage MD - 10/13/2024 10:56 [...] history of colonic adenocarcinoma s/p LAR in [place] c/b dehiscence requiring end colostomy and rectal [...] 12:20 PM) - Reviewed and agree with dietetic technician registered's recommendations. Any conditions listed below are present [...] tubes Carmelina Sanders DO, FACS, FASCRS, MS Environmental Services Tech Pediatric and Adult Colorectal Surgery * Nuria [...] Intact Mobility Assessment: Supine to Sit Mobility [place] Level: Supine->Sit: stand-by assist Bed Features/Set-up: Supine->Sit: Head of bed elevated, Use of bed rail Skilled Rationale: Verbal cues, Positioning Skilled Intervention/Details: Supine->Sit: pt cued on logroll to the right Sit to Supine Mobility [place] Level: Sit->Supine: stand-by assist Bed Features/Set-up: Sit->Supine: Head of bed elevated Skilled Rationale: Verbal cues, Positioning Balance: Sitting Balance Static Sitting-Level of Assistance: Independent Dynamic Sitting-Level of Assistance: Supervision Standing Balance Static Standing-Level of Assistance: Stand-by assist Dynamic Standing-Level of Assistance: Stand-by assist Standing-Balance Support: Gait belt Skilled Rationale: Verbal cues, Full extension to upright positioning/posture Transfer Assessment: Sit to Stand Transfer [place] Level: Sit->Stand: stand-by assist Assistive Device: Sit->Stand: gait belt Skilled Rationale: Verbal cues, Full extension to upright positioning/posture Skilled Intervention/Details: Sit->Stand: The pt stood 1x from EOB Stand to Sit Transfer [place] Level: Stand->Sit: stand-by assist Assistive Device: Stand->Sit: gait belt Skilled Rationale: Verbal cues, Controlled descent for sitting Skilled Intervention/Details: Stand->Sit: pt with good eccentric control Gait/Functional Mobility: Gait Assessment [place] Level: Gait: stand-by assist Assistive Device: Gait: [...] progressed to SBA Stairs: Outcome Score(s): [facility] Basic Mobility Inpatient Short Form Turning over [...] a railin - A Little Assistance [facility]RENT [facility] Mobility Raw Score: 18 CURRENT [facility] Mobility Functional Limitation: 46.58% Impaired in Basic Mobility Interventions: Assessment & Plan: Patient has a history of colon adenocarcinoma s/p LAR in March 2024 in [place] c/b dehiscence requiring end colostomy and rectal [...] history of colonic adenocarcinoma s/p LAR in [place] c/b dehiscence requiring end colostomy and rectal [...] N/A; Surgeon: Hilary Lewis MD; Location: [facility] PERIOP DRAINAGE BY CATHETER PERITONEAL/RETROPERITONEAL PERCUTANEOUS W/ IMAGING GUIDANCE Right 05/07/2024 Laterality: Right; Surgeon: Catherine Delatorre II, MD; Location: [facility] INTERVENTIONAL RADIOLOGY (CT) DRAINAGE BY CATHETER [...] Lower Back, Midaxillary Line): deferred Muscle Wasting: [place] Region (Temporalis Muscle): severe Clavicle Bone Region (Pectoralis Major, Trapezius Muscles): severe Shoulder and Acromion Process Region (Deltoid Muscle): severe Dorsal Hand (Interosseous Muscle): moderate Scapular Bone Region (Trapezius, Supraspinatus, Infraspinatus Muscles): deferred Anterior Thigh and Patellar Region (Quadriceps Muscles): severe Posterior Calf Region (Gastrocnemius Muscle): severe Estimated Nutrition Needs Wt used: 49.2 kg - CBW EEN (kcal/d): 8567-9383 (30-35kcal/kg CBW) EPN (g pro/d): 59-73 (1.2-1.5g/kg [...] (AAIM) criteria (2012) Toshia Galan RD, LD, [facility] Pager: #[phone] * Katrina Jamil [facility] - 10/12/2024 10:49 AM EST Department of Pharmacy Renal Documentation Note Patient: Andrew Posada Room/Bed: [facility]/A Assessment and Plan: The patient is [...] with any questions, Name: Katrina Jamil [facility] Phone: [phone] Date/Time: 10/12/2024 10:49 AM * Anselmo Lindsey [...] history of colonic adenocarcinoma s/p LAR in [place] c/b dehiscence requiring end colostomy and rectal [...] Surgery PGY-1 * Cj G Matthew [facility] - 10/12/2024 12:23 AM EST Department of Pharmacy Outside Facility Transfer Note Patient: Andrew Posada Room/Bed: 01284/A Patient has transferred from the Emergency Department at [facility] . I have contacted the facility and confirmed the following antimicrobial, antiepileptic, and anticoagulant medications were received by the patient prior to arrival at [facility]: Antimicrobials: Ceftriaxone 1 g on 10/11 @ 1604 Zosyn 4.5 g on 10/11 @ 1358 Please feel free to contact me with any further questions. Name: Cj Jules Matthew Lisa Phone #: [phone] Date/Time: 10/12/2024 12:23 AM documented [facility] Nurse Note* Nursing Notes - Yesy Barrios RN - 10/17/2024 2:43 AM EST @ 6019 paged Kori Cuellar MD: Critical Hgb 6.4. Will need consent and type and cross. Thanks! called back @ 0300 and stated will come to bedside [facility]12-28-2024 Nurse Note* Nursing Notes - Flory Pennington RN - 10/16/2024 5:53 PM EST @7350 paged Kori Cuellar MD- [phone]: Tim: FYI, L neph tube is now pink like his R neph tube. thanks! [phone] [facility]12-28-2024 Consult note* Flip Montoya MD - 10/16/2024 [...] colon adenocarcinoma s/p lower anterior resection in [place] c/b dehiscence that resulted in end colostomy [...] care of this patient. Enrrique Apodaca MD Wire Weaver Clothreshipping clerk-Clinical [facility] Work Phone: [phone] Consult note* Flip Montoya MD - 10/16/2024 [...] sign off at this time. HPI: Andrew Psoada is a 43 y.o. male with a history of colon adenocarcinoma s/p lower anterior resection in [place] c/b dehiscence that resulted in end colostomy [...] care of this patient. Enrrique Apodaca MD Wire Weaver Clothreshipping clerk-Clinical [facility] * Rajesh Acevedo, DO - 10/13/2024 4:23 PM ESTAssociated Order(s): IP CONSULT TO NEPHROLOGY Images from the original note were not included. NEPHROLOGY INPATIENT CONSULT NOTE Reason for Consultation: INOCENCIA Current Provider: Hilary Lewis MD Hospital Day: 2 Bed: 03084/A Consult Service: Catherine Nephrology I saw Andrew Posada at the [facility] on 10/13/2024. History of Present Illness: Andrew Posada is a 58 y.o. male who we have been consulted to see on 10/13/2024 Patient has a past medical history of colon adenocarcinoma s/p lower anterior resection in [place] c/b dehiscence that resulted in end colostomy and rectal stump that became infected abscess requiringI&D in April 2024 and has since been on chemotherapy and radiation therapy. Patient presented from oncologist's office on 10/11 with abnormal labs: leukocytosis to 24.5, creat 3.2, Hgb 7, and BUN 64. He was instructed to present to the [place] ED for treatment where he received fluid [...] II, MD; Location[facility] INTERVENTIONAL RADIOLOGY (CT) DRAINAGE BY CATHETER PERITONEAL/RETROPERITONEAL PERCUTANEOUS W/ IMAGING GUIDANCE N/A 04/30/2024 Laterality: N/A; Surgeon: Catherine Delatorre II, MD; Location: [facility] INTERVENTIONAL RADIOLOGY (CT) COLECTOMY Scheduled Meds: Acetaminophen [...] colon adenocarcinoma s/p lower anterior resection in [place] c/b dehiscence that resulted in end colostomy [...] Strict I/Os There is no need for ASSESSMENT COUNSELOR at this time Renal protective measures: Have [...] made to ensure accuracy; however, inadvertent computerized creative director errors may be present. Please contact us via web-exchange - Nephrology - Catherine 1 Fellow. For urgent/stat calls 5pm to 7am or all day on the weekend, please page the on- call Neph fellow on Qgenda ( Internal Medicine> Nephrology > Catherine ) . Rajesh Acevedo, DO Via secure chat (preferred) or pager: [phone] Clinical Nephrology Fellow PGY - 4 Associated [...] the patient closely. Luis Miguel Smallwood MD [phone] reshipping clerk Division of Nephrology * Miguel A Holloway MD - 10/12/2024 2:47 PM ESTAssociated Order(s): IP CONSULT TO INTERVENTIONAL RADIOLOGY Interventional Radiology Consult Note [facility] Charge [id number] [facility] Charge [id number] Admission Date: 10/11/2024 Requesting Provider/Service: Anselmo Lindsey [...] the procedure, please reach out to IR quality control tech. -please keep NPO at midnight. - INR [...] consult to procedure. Questions For questions regarding [facility] Inpatients please call [phone]. For questions regarding [facility] Inpatients please call [phone]. For questions regarding Biopsies, please call [phone]. * Salina Mccain MD, PhD - 10/12/2024 2:16 AM ESTAssociated Order(s): IP CONSULT TO SURGERY - UROLOGY UROLOGY CONSULT NOTE Patient: Andrew Posada Consult Reason: Urinary incontinence after LAR History of Present Illness Andrew Posada is a 58 y.o. 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 He presented today to his oncologist for routine follow-up where labs showed leukocytosis to 24.5, Hgb 7, creat 3.2, and BUN 64. He was instructed to present to the [place] ED for treatment where he received fluid [...] Laterality: N/A; Surgeon: Hilary Lewis MD; Location: [facility] PERIOP DRAINAGE BY CATHETER PERITONEAL/RETROPERITONEAL PERCUTANEOUS W/ IMAGING GUIDANCE Right 05/07/2024 Laterality: Right; Surgeon: Catherine Delatorre II, MD; Location: [facility] INTERVENTIONAL RADIOLOGY (CT) DRAINAGE BY CATHETER PERITONEAL/RETROPERITONEAL PERCUTANEOUS W/ IMAGING GUIDANCE N/A 04/30/2024 Laterality: N/A; Surgeon: Catherine Delatorre II, MD; [facility] ([facility]) COLECTOMY ALLERGIES [...] study was sent from an outside facility [facility] for support of clinical care of the [...] Ostomy is only seen on the wider [id number] images. In the upper aspect of the [...] colonic adenocarcinoma s/p LAR March 2024 in [place] c/b dehiscence requiring end colostomy and rectal [...] will be discussed with Dr. Meadows, attending quality control tech. Plans are not considered finalized until the attending has attested the note. Salina Mccain MD, PhD Urologic Surgery, PGY-2 [id number] 10/12/24 Please page the Urology consult pager with questions or concerns (Found in QGenda) [facility] --> Urology --> Consults [facility] --> Urology --> [facility] ALL URGENT ISSUES SHOULD BE PAGED TO THE ABOVE PAGER - Epic chat is not a reliable method of urgent communication with a surgical service at any time. - The person who wrote this note may be off service, post call, or otherwise unavailable. documented in this encounterOSU [facility]12[facility] Nurse Note* Nursing Notes - Rachael Hanley RN - 10/15/2024 6:49 PM EST Patient having bradycardia today. EKG completed at 0900 and again at 1230. IHIS chat continued withKori Cuellar MD. 1600: Sent message. Pt maintaining HR in the 30's. Do you want to treat this? Responded: Will reach out to cards. Make him PCU. [facility]12-27-2024 Nurse Note* Nursing Notes - Rachael Hanley RN - 10/15/2024 6:45 PM EST Paged team:Andrew Posada [phone]: pt just had 8 beat run of v-tach. Pt asymptomatic Rachael [phone] [facility]12-27-2024 Plan of care note* Plan of Care [...] for questions or concerns. Megan Winston MD Wire Weaver Cloth of Clinical Medicine Division of Nephrology [facility]12-27-2024 Nurse Note* Nursing Notes - Susie Fuentes RN - 10/15/2024 9:57 AM EST Initial Assessment Referral Information Arrived From: emergency department Readmission Information Was patient readmitted within 30 Days?: No Information Source Information Source: patient , spouse Information Source Name: Brandon Posada Information Source Number: see demographic sheet Outpatient Providers Outpatient Providers Updated In IHIS: Yes Contact Information Experimental Assembler/SW Added to Care Team: Yes This [employer] Delivery Driver is Primary Experimental Assembler/SW: Yes Experimental Assembler Name: Susie Fuentes Experimental Assembler's Social Work Contact Name: Zully Aburto Options Advisor's Living Environment Lives With: spouse, child(brian), adult [...] preferred) Initial Discharge Planning Home Care Services (AUTOMOTIVE SOFTWARE ENGINEER): No Home Therapies (AUTOMOTIVE SOFTWARE ENGINEER): None DME (AUTOMOTIVE SOFTWARE ENGINEER): None, Ostomy Supplies Medical Supplies (AUTOMOTIVE SOFTWARE ENGINEER): Ostomy Supplies Patient Goal for Discharge: Get [...] Source Number: see demographic sheet Contact Information Experimental Assembler/SW Added to Care Team: Yes This [employer] Delivery Driver is Primary Experimental Assembler/SW: Yes Experimental Assembler Name: Susie Fuentes Experimental Assembler's Social Work Contact Name: Zully Aburto Options Advisor's Living Environment Lives With: spouse, child(brian), adult [...] at home, spouse to assist [place]- had AUTOMOTIVE SOFTWARE ENGINEER Colostomy- Had AUTOMOTIVE SOFTWARE ENGINEER Medications No barriers anticipated in obtaining discharge [...] Greg Capri Mason [facility] [place] Arrive at: Arrive to 2nd Floor, Registration [address] EEI 10/29/2024 11:30 AM Hilary Lewis [facility]astro[facility] Outpatient Care [place] Arrive at: Arrive to 1st Floor Registration [...] discharge planning needs. AUDRA Moreno Colorectal Surgery [phone] For evening and weekend discharge assistance: Pager for quality control tech PCRM at [phone] Pager for quality control tech [phone] [facility]12-27-2024 Hospital Discharge instructions* Discharge Instructions* Susie Fuentes RN - 10/15/2024 8:57 AM EST Images from the original note were not included. Please have your labs drawn prior to your Dr. Lewis appointment on 10/29/23 COLORECTAL ADDITIONAL CONTACTS For Concerns During Weekend or Evening Hours: -If you have questions or concerns call and ask the inseam trimming machine operator to page the surgical processor quality control tech. Reminder: [facility] messaging goes unmonitored during evenings and weekends. Any concerns or questions during this time, please call using instructions above. Clinic Office Main Number: [phone] Colorectal non-Cancer: [phone] Fax Line: [phone] Experimental Assembler: Susie Fuentes ([facility]) BILLING RELATED QUESTIONS, please call [phone] ENTEROSTOMAL THERAPY RN + OSTOMY Clinic+ IMPORTANT: Automated Post Discharge Call Patient Information As part of your care, we will call you at the primary number we have on file, the day after you aredischarged at 9:30 a.m. to check on you. Please expect a two-minute automated telephone call from the hospital. This call will come from [phone]. If you are unable to answer or do not receive the automated call, please call [phone] to complete this important evaluation. By answering the phone evaluation, a [facility] nurse will be notified if you [...] with enriched, refined white flour Soda crackers [place] Toasts Foods to avoid: Bread containing bran [...] or seeds Applesauce Pears, peaches Peeled apricots [place]ka cherries Ripe banana Ripe avocado Fruit [...] fat free milks Coffee Decaffeinated coffee Tea [place] Carbonated beverages Fruit juice (except prune juice) Foods to avoid: All other beverages Miscellaneous Foods allowed: Salt used in moderation Mild spices Gravy Cream sauces Foods to avoid: Rich, highly spiced, or seasoned foods and sauces Fried foods Pickles Olives Silvia 1999 - April 13, 2020, [facility]. This handout is for informational purposes only. Talk with your doctor or healthcare team if you have any questions about your care. For more health information, call the [employer] for Health Information at [phone] or email: [email or web address]. * Discharge Instr - Notify* Susie Fuentes RN - 10/15/2024 8:47 AM EST For Concerns During Weekend or Evening Hours: -If you have questions or concerns call and ask the inseam trimming machine operator to have the general surgery chief resident paged. Reminder: [employer] [facility] messaging goes unmonitored during evenings and weekends. Any concerns or questions during this time, please call using instructions above. Clinic Office Main Number: [phone] NOTIFY PHYSICIAN: SYMPTOMS WOUND INFECTION - Increase [...] be changed by Interventional Radiology. Please call [phone] to schedule this appointment and with any questions or concerns you may have regarding the nephrostomy tube. If you have questions or concerns, please call Interventional Radiology at After-Hours or on Weekends, please call the Hospital Remote Control Assembler at [phone] and ask them for the Interventional Director Consumer On-Call Ostomy Care Perform colostomy care as [...] to change. documented in this encounter[facility]12-25-[facility]24 Plan of care note* Plan of Care - Salina Mccain MD, PhD - 10/13/2024 10:22 PM EST Andrew Posada is a 58 y.o. 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 NEPHROLOGY INPATIENT CONSULT NOTE Reason for Consultation: INOCENCIA Current Provider: Hilary Lewis MD Hospital Day: 2 Bed: 32631/A Consult Service: Catherine Nephrology I saw Andrew Posada at the [facility] on 10/13/2024. History of Present Illness: Andrew Posada is a 58 y.o. male who we have been consulted to see on 10/13/2024 Patient has a past medical history of colon adenocarcinoma s/p lower anterior resection in [place] c/b dehiscence that resulted in end colostomy and rectal stump that became infected abscess requiringI&D in April 2024 and has since been on chemotherapy and radiation therapy. Patient presented from oncologist's office on 10/11 with abnormal labs: leukocytosis to 24.5, creat 3.2, Hgb 7, and BUN 64. He was instructed to present to the [place] ED for treatment where he received fluid [...] W/ BX N/A 06/25/2024 Laterality: N/A; Surgeon: Hilayr Lewis MD; Location: [facility] PERIOP DRAINAGE BY CATHETER PERITONEAL/RETROPERITONEAL PERCUTANEOUS W/ IMAGING GUIDANCE Right 05/07/2024 Laterality: Right; Surgeon: Catherine Delatorre II, MD; Location: [facility] INTERVENTIONAL RADIOLOGY (CT) DRAINAGE BY CATHETER PERITONEAL/RETROPERITONEAL PERCUTANEOUS W/ IMAGING GUIDANCE N/A 04/30/2024 Laterality: N/A; Surgeon: Catherine Delatorre II, MD; Location: [facility] INTERVENTIONAL RADIOLOGY (CT) COLECTOMY Scheduled Meds: [...] colon adenocarcinoma s/p lower anterior resection in [place] c/b dehiscence that resulted in end colostomy [...] Strict I/Os There is no need for ASSESSMENT COUNSELOR at this time Renal protective measures: Have [...] made to ensure accuracy; however, inadvertent computerized creative director errors may be present. Please contact us via web-exchange - Nephrology - Catherine 1 Fellow. For urgent/stat calls 5pm to 7am or all day on the weekend, please page the on- call Neph fellow on Qgenda ( Internal Medicine> Nephrology > Catherine ) . Rajesh Acevedo, DO Via secure chat (preferred) or pager: [phone] Clinical Nephrology Fellow PGY - 4 Associated [...] the patient closely. Luis Miguel Smallwood MD 9351 reshipping clerk Division of Nephrology [facility] Work Phone: 1(638) 863-601012-25-2024 Plan of care note* Plan of Care [...] home and community. Outcome: Ongoing [facility]12-24-2024 Procedure note* Miguel A Holloway MD - [...] care. Miguel A Holloway MD Integrated Interventional Director Consumer PGY-6 [facility] Work Phone: [phone] Procedure note* Miguel A Holloway MD - [...] care. Miguel A Holloway MD Integrated Interventional Director Consumer PGY-6 documented in this encounterMercy Health [facility]12-24-2024 Nurse Note* Nursing Notes - Bridget Lucero RN - 10/12/2024 7:02 PM EST Interventional Radiology procedure completed with IR Attending Dr. Lebron of percutaneous bilateral nephrostomy tube placement. Pt tolerated procedure with moderate sedation and local numbing agentand IV sedation medications. Pt to travel to [address] post procedure. Post procedure orders in place and include strict 2 hour bedrest [facility]12-24-2024 Plan of care note* Plan of Care [...] Improved Nutritional Intake Outcome: Progressing [facility]12-24-2024 Plan of care note* Plan of Care [...] surgery. Miguel A Holloway MD Integrated Interventional Director Consumer PGY-6 [facility]12-24-2024 Consult note* Miguel A Holloway MD - 10/12/2024 2:47 PM ESTAssociated Order(s): IP CONSULT TO INTERVENTIONAL RADIOLOGY Interventional Radiology Consult Note [facility] Charge [address] [facility] Charge 90518 Admission Date: 10/11/2024 Requesting Provider/Service: Anselmo Lindsey [...] the procedure, please reach out to IR quality control tech. -please keep NPO at midnight. - INR [...] consult to procedure. Questions For questions regarding [facility] Inpatients please call [phone]. For questions regarding [facility] Inpatients please call [phone]. For questions regarding Biopsies, please call [phone]. [facility]12-24-2024 Nurse Note* Nursing Notes - Margarita Bill RN - 10/12/2024 2:00 PM EST Placed NG in pt and educated pt bridling the NG pt refused it and later on pt NG pull out when getting up. RN push back and again educated pt why bridling would be best for him but again he refused it also educated pt at bedside [facility]12-24-2024 Plan of care note* Plan of Care [...] history of colonic adenocarcinoma s/p LAR in [place] c/b dehiscence requiring end colostomy and rectal [...] Laterality: N/A; Surgeon: Hilary Lewis MD; Location: [facility] PERIOP DRAINAGE BY CATHETER PERITONEAL/RETROPERITONEAL PERCUTANEOUS W/ IMAGING GUIDANCE Right 05/07/2024 Laterality: Right; Surgeon: Catherine Delatorre II, MD; Location: [facility] INTERVENTIONAL RADIOLOGY (CT) DRAINAGE BY CATHETER PERITONEAL/RETROPERITONEAL PERCUTANEOUS W/ IMAGING GUIDANCE N/A 04/30/2024 Laterality: N/A; Surgeon: Catherine Delatorre II, MD; Location: [facility] INTERVENTIONAL RADIOLOGY (CT) COLECTOMY Nutrition History [...] Lower Back, Midaxillary Line): deferred Muscle Wasting: [place] Region (Temporalis Muscle): severe Clavicle Bone Region (Pectoralis Major, Trapezius Muscles): severe Shoulder and Acromion Process Region (Deltoid Muscle): severe Dorsal Hand (Interosseous Muscle): moderate Scapular Bone Region (Trapezius, Supraspinatus, Infraspinatus Muscles): deferred Anterior Thigh and Patellar Region (Quadriceps Muscles): severe Posterior Calf Region (Gastrocnemius Muscle): severe Estimated Nutrition Needs Wt used: 49.2 kg - CBW EEN (kcal/d): 9859-8891 (30-35kcal/kg CBW) EPN (g pro/d): 59-73 (1.2-1.5g/kg [...] Toshia Galan RD, LD, CNSCPager: #[phone] [facility]12-24-2024 Consult note* Salina Mccain MD, PhD - 10/12/2024 2:16 AM ESTAssociated Order(s): IP CONSULT TO SURGERY - UROLOGY UROLOGY CONSULT NOTE Patient: Andrew Posada Consult Reason: Urinary incontinence after LAR History of Present Illness Andrew Posada is a 58 y.o. 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 He presented today to his oncologist for routine follow-up where labs showed leukocytosis to 24.5, Hgb 7, creat 3.2, and BUN 64. He was instructed to present to the [place] ED for treatment where he received fluid [...] N/A; Surgeon: Hilary Lewis MD; Location: [facility] PERIOP DRAINAGE BY CATHETER PERITONEAL/RETROPERITONEAL PERCUTANEOUS W/ IMAGING GUIDANCE Right 05/07/2024 Laterality: Right; Surgeon: Catherine Delatorre II, MD; Location: [facility] INTERVENTIONAL RADIOLOGY (CT) DRAINAGE BY CATHETER PERITONEAL/RETROPERITONEAL PERCUTANEOUS W/ IMAGING GUIDANCE N/A 04/30/2024 Laterality: N/A; Surgeon: Catherine Delatorre II, MD; Location: [facility] INTERVENTIONAL RADIOLOGY (CT) COLECTOMY ALLERGIES No [...] study was sent from an outside facility [facility] for support of clinical care of the [...] Ostomy is only seen on the wider [id number] images. In the upper aspect of the [...] colonic adenocarcinoma s/p LAR March 2024 in [place] c/b dehiscence requiring end colostomy and rectal [...] will be discussed with Dr. Meadows, attending quality control tech. Plans are not considered finalized until the attending has attested the note. Salina Mccain MD, PhD Urologic Surgery, PGY-2 [id number] 10/12/24 Please page the Urology consult pager with questions or concerns (Found in QGenda) [facility] --> Urology --> Consults [facility] --> Urology --> [facility] ALL URGENT ISSUES SHOULD BE PAGED TO THE ABOVE PAGER - Epic chat is not a reliable method of urgent communication with a surgical service at any time. - The person who wrote this note may be off service, post call, or otherwise unavailable. [facility] Work Phone: [phone] 116-147112-23-2024 Nurse Note* Nursing Notes - Lakia Dominguez RN - 10/11/2024 11:23 PM EST On admission to [facility] room 27296, from outside facility Pt. Arrived via private transportation A&Ox3 denies pain, chest pain, or SOB. Pt. VS are WDL, and a dual RN initial assessment of skin condition was performed by Lakia Dominguez RN and Mele Vo RN. Skin Assessment: Skin within defined limits:Yes Elder Score: 21 LDA Added:Yes Lakia Dominguez RN [facility]11-13-2024 History of Present illness Narrative* Hilary Lewis MD - 09/01/2024 2:30 PM EST Images from the original note were not included. Attending Attestation I have seen and examined the patient on 09/01/2024. I reviewed the SHIPPING CLERK/ADMIN's note and agree with the findings and [...] words are mis-transcribed.) * Shruthi Capri Welch, SOUND CONTROLLER-HORTICULTURE/FLORICULTURE TEACHER - 09/01/2024 2:30 PM EST COLORECTAL SURGERY [...] arise. BETHANIE Nye documented in this encounterOS[facility] Instructions* Patient Instructions* Lisandra Castillo - 09/01/2024 2:30 PM EST Magnetic Resonance Imaging (MRI) Date: 10/06/24 Arrival Time: 350pm Location: [place] [address] If you have questions or need to reschedule, please call us at [phone] If pictures are being taken of your [...] can contact our Patient Experience team at: [facility], [facility], [facility]: [phone] [facility]: [phone] [facility]: [phone] [facility] and [facility]: [phone] Magnetic Resonance Imaging (MRI) is a safe, [...] Jewelry Credit cards Pocket knife Money clip [place] Watch An IV may be started in [...] or leave alone. documented in this encounterOS[facility]09-[facility]24 [facility]09-06-2024 Surgery Postoperative evaluation and management note* Op Note - Hilary Lewis MD - 06/25/2024 12:26 PM EDT Pre-op Diagnosis: Rectal cancer Post-op Diagnosis: Rectal cancer Procedure: Flexible sigmoidoscopy with biopsy Staff: Hilary Lewis MD, who was present and scrubbed throughout the procedure Assist: Dr. Miguel A Hammond, resident Service: Colorectal Surgery Anesthesia: MAC Anesthesiologist: Allen Dudley MD LINE MANAGER: JER BarrientosLINE MANAGER; BEE Combs EBL: Minimal Complication: None [...] and taken to the recovery room. [facility]09-06-2024 Miscellaneous Notes* Op Note - Hilary Lewis MD - 06/25/2024 12:26 PM EDT Pre-op Diagnosis: Rectal cancer Post-op Diagnosis: Rectal cancer Procedure: Flexible sigmoidoscopy with biopsy Staff: Hilary Lewis MD, who was present and scrubbed throughout the procedure Assist: Dr. Miguel A Hammond, resident Service: Colorectal Surgery Anesthesia: MAC Anesthesiologist: Allen Dudley MD LINE MANAGER: JER BarrientosLINE MANAGER; BEE Combs EBL: Minimal Complication: None [...] - 06/25/2024 12:22 PM EDT Andrew Posada ([id number]) PRE OPERATIVE DIAGNOSIS Malignant neoplasm of rectum [C20] POST OPERATIVE DIAGNOSIS Malignant neoplasm of rectum [C20] PROCEDURE PERFORMED Procedure(s) (LRB): SIGMOIDOSCOPY DIAGNOSTIC (N/A) with biopsy PRIMARY CLOSURE N/A INTRAOPERATIVE FINDINGS No significant abnormalities SURGEON Surgeons and Role: * Hilary Lewis MD - Primary ANESTHESIOLOGIST Anesthesiologist: Allen Dudely MD LINE MANAGER: BEE Barrientos; BEE Combs SURGICAL STAFF Label Designer: Barbie Ramirez RN Relief Scrub: Joy Bautista [...] 2024 12:22 PM documented in this encounterOSU [facility] Hospital Discharge instructions* Discharge Instructions* Hilary Lewis [...] urgent care center. If you are near [place], go to one of the [facility] CareCenters: [email or web address] If you are far from [place], go to an urgent care in your [...] short of breath. documented in this encounterOSU [facility] Surgery Postoperative evaluation and management note* Brief Op Note - Hilary Lewis MD - 06/25/2024 12:22 PM EDT Andrew Posada ([id number]) PRE OPERATIVE DIAGNOSIS Malignant neoplasm of rectum [C20] POST OPERATIVE DIAGNOSIS Malignant neoplasm of rectum [C20] PROCEDURE PERFORMED Procedure(s) (LRB): SIGMOIDOSCOPY DIAGNOSTIC (N/A) with biopsy PRIMARY CLOSURE N/A INTRAOPERATIVE FINDINGS No significant abnormalities SURGEON Surgeons and Role: * Hilary Lewis MD - Primary ANESTHESIOLOGIST Anesthesiologist: Allen Dudley MD LINE MANAGER: Louie Cardenas APRN-LINE MANAGER; Sunny Chino APRN-LINE MANAGER SURGICAL STAFF Label Designer: Barbie Ramirez RN Relief Scrub: Joy Bautista [...] June 25, 2024 12:22 PM [facility]09-06-20[facility] Nurse Surgical operation note* Barbie Ramirez RN - 06/25/2024 11:57 AM EDT Scope in 1105 Scope out 1201 [facility]09-06-2024 Nurse Note* Barbie Ramirez RN - 06/25/2024 11:57 AM EDT Scope in 1105 Scope out 1201 * Barbie Ramirez RN - 06/25/2024 11:39 AM EDT Scope 0403 documented in this encounterOSU [facility] Nurse Surgical operation note* Barbie Ramirez RN - 06/25/2024 11:39 AM EDT Scope 0403 [facility]09-06-2024 History and physical note* Hilary Lewis MD - 06/25/2024 11:24 AM EDT HPI: 58 y.o. yo male here for flexible sigmoidoscopy New symptoms: none Past Medical History: Diagnosis Date Colon cancer Past Surgical History: Procedure Laterality Date DRAINAGE BY CATHETER PERITONEAL/RETROPERITONEAL PERCUTANEOUS W/ IMAGING GUIDANCE Right 05/07/2024 Laterality: Right; Surgeon: Catherine Delatorre II, MD; Location: [facility] INTERVENTIONAL RADIOLOGY (CT) DRAINAGE BY CATHETER PERITONEAL/RETROPERITONEAL PERCUTANEOUS W/ IMAGING GUIDANCE N/A 04/30/2024 Laterality: N/A; Surgeon: Catherine Delatorre II, MD; Location: [facility] INTERVENTIONAL RADIOLOGY (CT) COLECTOMY History reviewed. [...] kg/m . - Reviewed and agree with dietetic technician registered's recommendations. Any conditions listed below are present on admission unless otherwise specified. . [facility] Work Phone: 1(219) 486-286609-06-2024 History and physical note* Hilary Lewis MD - 06/25/2024 11:24 AM EDT HPI: 58 y.o. yo male here for flexible sigmoidoscopy New symptoms: none Past Medical History: Diagnosis Date Colon cancer Past Surgical History: Procedure Laterality Date DRAINAGE BY CATHETER PERITONEAL/RETROPERITONEAL PERCUTANEOUS W/ IMAGING GUIDANCE Right 05/07/2024 Laterality: Right; Surgeon: Catherine Delatorre II, MD; Location: [facility] INTERVENTIONAL RADIOLOGY (CT) DRAINAGE BY CATHETER PERITONEAL/RETROPERITONEAL PERCUTANEOUS W/ IMAGING GUIDANCE N/A 04/30/2024 Laterality: N/A; Surgeon: Catherine Delatorre II, MD; Location: [facility] INTERVENTIONAL RADIOLOGY (CT) COLECTOMY History reviewed. [...] kg/m . - Reviewed and agree with dietetic technician registered's recommendations. Any conditions listed below are present on admission unless otherwise specified. . documented in this encounterU [facility] History of Present illness Narrative* Hilary Lewis [...] leak and resection w colostomy, staged at [id number]. 4/13 lymph nodes, positive distal margin. Now w resolved abdominal and pelvic abscesses and purulent drainage from midline wound. P/ Tumor board discussion. With him that in most situations we would recommend adjuvant chemotherapy and radiation OK to stop amiodarone. That was started in [place]. DC summary mentions BP as the reason. He reportshe dind't really have high BP. DId have tachycardia in [place]. He'll check BP at local pharmacy Referral to med onc and rad onc in [place]. Follow-up: in 3 month(s) (Please note that portions of this note were completed with a voice recognition program. Efforts were made to edit the dictation but occasionally words are mis-transcribed.) * Joe Hylton RN - 05/20/2024 1:45 PM EDT Joe Hylton acted as a medical temple marker for the procedure/exam/test. Drains pulled at the beside by Hilary Lewis MD. documented in this encounterMercy [facility]07-24-2024 History of Present illness Narrative* Sandra Mckay [...] request) BETHANIE Whiting documented in this encounterOSU [facility]07-[facility] Plan of care note* Plan of Care [...] Intake Outcome: Adequate for Discharge [facility]07-21-2024 Miscellaneous Notes* Plan of Care - Angelique [...] is not hooked up please clarify. Thanks [phone] MD Sanders returned page. MIVF order discontinued. * Nursing Notes - Arron Lamar RN - 05/07/2024 4:24 PM EDT Interventional Radiology procedure completed of image guided drain placement with IR Attending Juan Ramon with sedation and local numbing agent. Intra- procedure specimens collected and sent to lab foranalysis. Pt to travel back to [place] [address] for post procedure recovery. * Nursing Notes - Susie Fuentes RN - 05/07/2024 3:46 PM EDT 05/07/24 1545 Referral Information Arrived From emergency department Final Discharge Planning Discharge Disposition Home CM/SW AVS Portion Completed Yes Plan Plan Home with possible home health care if available (drew visits) Patient/Family In Agreement With Plan yes Transport Request Mode of Transfer Private Vehicle [facility] Inpatient PCRM Discharge Note Patient discussed in medical rounds for discharge to home possibly this weekend. Having additional drain placed today. PCRM met with the patient/family/spouse to discuss final discharge plan. Services for Discharge Spouse did request we look for a [facility] agency that could do 1 or 2 home [facility] visits. Referrals started, no accepting [facility] at this time. Timer extended to [...] 8:00 AM Anjali Denton; UROLOGY NURSE D, [facility] [place] Arrive at: Arrive to 2nd Floor, Registration [address] EEI 05/20/2024 1:00 PM [facility], [facility] Imaging at [facility] Outpatient Care Arrive at: Arrive to First Floor Registration JOCW 05/20/2024 1:45 PM Hilary Lewis [facility] Gastro[facility] Surgery Outpatient Care [place] Arrive at: Arrive to 1st Floor Registration [...] discharge planning needs. AUDRA Moreno Colorectal Surgery [phone] For evening and weekend discharge assistance: Pager for quality control tech PCR at [phone] Pager for quality control tech [phone] * Nursing Notes - Karen Laboy RN - 05/07/2024 11:26 AM EDT WOC/ET FOLLOW UP NOTE: In to see Mr. Posada for colostomy education. His said they don't need help with anything regarding colostomy care today. She also said they have plenty of supplies right now. Pt was up and ambulating back from the bathroom with the CUSTOMER SERVICE CORRESPONDENCE CLERK during visit. 05/07/24 1100 Plan Problem colostomy, est Current Plan ostomy prescription done;lesson, first Visit Type Consult with RN WOCT Visit Frequency PRN Last Date Seen 05/07/24 Karen REED, RN-[facility] [phone] * Nursing Notes - Susie Fuentes RN - 05/06/2024 12:47 PM EDT Patient was discussed in morning rounds. Last 24 Hour Updates: Andrew Posada is a 58 y.o. male PMH of colonic adenocarcinoma s/p sigmoidectomy with rectosigmoid anastomosis c/b dehiscence requiring end colostomy (presumed) who presents with abdominal abscess. His original surgery was completed in [place]. Outside hospital completed a scan- CTAP revealing [...] for ongoing needs and planning. AUDRA Moreno [phone] For evening and weekend discharge assistance: Pager for quality control tech PCRM at [phone] Pager for quality control tech [phone] * Plan of Care - Rosy [...] or concerns please call us directly at [phone] for questions M-[phone]. * Nursing Notes - Dorcas Krishnamurthy RN - 05/04/2024 4:17 PM EDT Images from the original note were not included. WOC/ET Nursing Consult/Evaluation Note Evaluated Andrew Posada for ostomy located in LLQ. Description of stoma: LLQ presumed end colostomy from 03-30-24 from surgery in [place] for colon cancer. Stoma moist red, budded, [...] I gave him coloplast flat 1-piece pouches [address] and our 2-piece flat 2 1/4'' Conva[employer]ec system. They seem to prefer at this time [employer] 2-piece brand but we do not stock these. I will write a script for supply numbers to help guide them as what they can out of pocket buy from various outlets such as [employer] and the ostomy companies like [employer], [employer], and [employer]. PCRM working on setting [...] notified of assessment and plan. Please page #[phone] or reconsult with any further needs. Dorcas [...] for ongoing needs and planning. AUDRA Moreno [phone] For evening and weekend discharge assistance: Pager for quality control tech PCRYe at [phone] Pager for quality control tech [phone] Addendum: CT scan scheduled. * Plan [...] Tylenol when he needs it. My # [phone] 2315:Tylenol order changed from scheduled to PRN. [...] procedure recovery. documented in this encounterMercy Health [facility]07-21-2024 History of Present illness Narrative* Amara Armas RN - 05/09/2024 9:38 AM EDTSummary: PCRM Discharge Planning PCRM following up on patient's discharge plan. Per Dr. Felipe, no IV abx required, will go out on oral regimen (Augmentin). Unable to secure [facility] at this time, no accepting agencies. Per team patient is doing well with drain care independently. PCRM met with patient and spouse to discuss discharge meds, as local pharmacy is closed on Sundays.Pt's spouse reports they have nearly a month's supply of amiodarone 200mg, aspirin, and vitamin C at home which they returned home from [place] with. We [facility] [place] for them to curing pickling packer on their way home from the hospital today. All other scirptson file at [facility] to fill when needed. Bedside RN updated re: medication plan along with request to send pt home with drain supplies. Pt with ostomy supplies at home already. See full PCRM Discharge Note from Susie Belcher dated 05/07. BRIANNA Green machine striper PCRM [phone] 05/09/2024 9:47 AM For evening (after 4:30pm) and weekend discharge assistance please page the quality control tech PCRM at [phone]. * Janeth Shea RN - 05/08/2024 4:52 PM EDT PCRM following up on hand off for [facility]. Extended referral for [facility] as no accepting agencies. [facility] following. No final d/c date noted as of this stime. Abx plan pending. BRIANNA Randle RN OCN Float PCRM Pager: [phone] ext [phone] Float Pager: [phone] If any changes to this individualized plan of care during evening and weekend hours and assistance is needed, please page the quality control tech PCRM at [phone]. * Lindsay Forbes RN - 05/07/2024 2:58 PM EDT [facility] Coordination Note Patient received in handoff from rn case manager for potential homecare services. Will continue to follow with rn case manager for plan of care. [facility] Home Health Following Physician Confirmation Following Physician: Dr. Hilary Lewis ([facility]- , Fax Line: [phone]) Physician Service: Surgery Agreeable to Follow: Yes BRIANNA Saleem, RN Post-Acute Middleware Systems Architect * Susie Fuentes RN - 05/07/2024 2:42 PM EDT Discharge Planning for Home Health Seeing if there are [facility] options for discharge Background Information/ Hospital [...] unknown) and had colectomy on 03/30/24 in [place], with pathology revealing invasive moderately differentiated adenocarcinoma [...] drain abscess placed on 04/30/24. Services needed: [facility] Needs IR drain x 2- with flushing Midline wound care Cisneros care Ostomy Care Line / tube / drain type and care needed Colostomy Midline wound- packing BID IR drain x2 with flushing daily Cisneros Teachable Caregiver / Family Support: Spouse is a teachable caregiver and will be willing to work with [facility] to obtain education if there are complex teaching services needed for the patient. Physician following for home care orders / phone: Dr. Hilary Lewis ([facility]- , Fax Line: [phone]) * Gabriele Felipe MD - 05/07/2024 7:08 [...] unknown) and had colectomy on 03/30/24 in [place], with pathology revealing invasive moderately differentiated adenocarcinoma [...] kg/m . - Reviewed and agree with dietetic technician registered's recommendations. Malnutrition - Severe Protein-Calorie Malnutrition (POA) (05/03/2024 2:49 PM) secondary to Chronic Illness (05/03/2024 2:49 PM) - Reviewed and agree with dietetic technician registered's recommendations. Any conditions listed below are present on admission unless otherwise specified. . Dispo: pending further clinical workup and improvement Please page the [facility] Colorectal pager with questions or concerns. (Found in QGenda / WebExchange) Gabriele Felipe MD, [facility] General Surgery Pager: [phone] * Gabriele Felipe MD - 05/06/2024 7:09 [...] unknown) and had colectomy on 03/30/24 in [place], with pathology revealing invasive moderately differentiated adenocarcinoma [...] kg/m . - Reviewed and agree with dietetic technician registered's recommendations. Malnutrition - Severe Protein-Calorie Malnutrition (POA) (05/03/2024 2:49 PM) secondary to Chronic Illness (05/03/2024 2:49 PM) - Reviewed and agree with dietetic technician registered's recommendations. Any conditions listed below are present on admission unless otherwise specified. . Dispo: pending further clinical workup and improvement Please page the [facility] pager with questions or concerns. (Found in QGenda / WebExchange) Gabriele Felipe MD, [facility] General Surgery Pager: [phone] * AUGUSTO Cook - 05/05/2024 6:51 PM EDT This SW is assisting the Colorectal surgery service on this date. Psychosocial Assessment Per chart review, patient is a 58 y.o., male, who was admitted post colectomy for colon cancer in [place], here with intraabdominal infection, wound dehiscence and drainage. SW met with patient and patient's to introduce self, explain social and human services assistant role during inpatient stay, and answer questions. Patient was alert and oriented x4 and agreeable to SW visit. Contact Information: Experimental Assembler Name: Susie Belcher RN PCRM Social Work Contact Name: See daily coverage for following SW Advance Directive Discussion: Patient does not have any advance directives on file. SW inquired whether or not patient is interested in completing health care power of workers compensation attorney and/or living will paperwork during this visit. SW reviewed the documents, discussed the benefits of completing them, and provided education re: Legal NOK (LNOK). Patient declined interest in completing the documents at this time. Legal NOK: Patient's spouse, Opal Posada/ ph: [phone], is patient's legal NOK. Patient has eight adult children. Emotional/Psychological: Mood: congruent to situation, congruent to affect Current Interpersonal Conduct/Behavior: cooperative, acceptance, appropriate to situation, other (see comments) (intermittently tearful) Mental Health Conditions/Symptoms: denies, other (see comments) (Pt shared that he recently struggled w/ some anxiety when he was in [place].He reported that he is not feeling anxious [...] Of Support: adult child(brian), other (see comments), pentecostalism/druze organization, community support, friend(s), spouse, sibling(s) (16 [...] Yes Employment Details: Patient works at a [employer]. Employment/Financial Concerns: other Employment/Insurance Comments: Patient does not have insurance. He has an [employer] Funding Source. PCRM placed a referral to [...] resource needs at this time. Of note, [facility] already placed a referral for an [facility] Financial Counselor for requested follow up. Anticipated Discharge Plan: Anticipated Discharge Plan: Home Medical Team Considerations: Patient does not have traditional insurance and [facility]. SW Interventions/Recommendations: SW instructed patient to ask his bedside RN to reach out to service SW if he needs SW. SW explainedthat there may be a new SW following day to day. Patient reported being in agreement. SW will continue to remain available to provide assistance and support as needed during inpatient stay. ABDIEL Barber Options Advisor For Evening (4:30pm-8:00am) and Weekend SW needs please call [phone]. * JEFE Crouch - 05/05/2024 3:06 PM EDT SW attempted to meet with patient to complete psychosocial assessment; however, patient was found to be out of the room at this time. SW will revisit patient as able and remain available as needed. ABDIEL Crouch LSW ED/ICC/OBS Options Advisor For Evening (4:30pm-8am), Weekend, and Holiday SW needs please call [phone] or page [phone]. * Gabriele Felipe MD - 05/05/2024 7:01 [...] unknown) and had colectomy on 03/30/24 in [place], with pathology revealing invasive moderately differentiated adenocarcinoma [...] kg/m . - Reviewed and agree with dietetic technician registered's recommendations. Malnutrition - Severe Protein-Calorie Malnutrition (POA) (05/03/2024 2:49 PM) secondary to Chronic Illness (05/03/2024 2:49 PM) - Reviewed and agree with dietetic technician registered's recommendations. Any conditions listed below are present on admission unless otherwise specified. . Dispo: pending further clinical workup and improvement Please page the [facility] pager with questions or concerns. (Found in QGenda / WebExchange) Gabriele Felipe MD, [facility] General Surgery Pager: [phone] * Gabriele Felipe MD - 05/04/2024 7:39 [...] unknown) and had colectomy on 03/30/24 in [place], with pathology revealing invasive moderately differentiated adenocarcinoma [...] kg/m . - Reviewed and agree with dietetic technician registered's recommendations. Malnutrition - Severe Protein-Calorie Malnutrition (POA) (05/03/2024 2:49 PM) secondary to Chronic Illness (05/03/2024 2:49 PM) - Reviewed and agree with dietetic technician registered's recommendations. Any conditions listed below are present on admission unless otherwise specified. . Dispo: pending further clinical improvement Please page the [facility] pager with questions or concerns. (Found in QGenda / WebExchange) Gabriele Felipe MD, [facility] General Surgery Pager: [phone] * Giovanna Alonzo RD - 05/03/2024 9:48 [...] poor PO intake when he was in [place] from March to April d/t being NPO/liquid [...] Needs: Using current wt (50.6 kg) EEN: 2258-4007 (30-35 kcal/kg) EPN: 75-100 (1.5-2.0 g/kg) Malnutrition Statement: Does the patient meet criteria for malnutrition: Yes Etiology of Malnutrition: Chronic Illness Malnutrition Severity: Severe Protein-Calorie Malnutrition (POA) as evidenced by clinical characteristics: Interpretation of weight loss: > 5% in 1 month Body fat: Severe Muscle mass: Severe *Based on The Academy and ASPEN Indicators to Diagnose Malnutrition (AAIM) criteria (2012) Giovanna Alozno RD Pager:[phone] * Flory Yamila Gregory, SOUND CONTROLLER-HORTICULTURE/FLORICULTURE TEACHER - 05/03/2024 9:35 AM EDT Interventional Radiology [...] - these can be obtained from Distribution WD#[id number] Please send patient home with rx for [...] unknown) and had colectomy on 03/30/24 in [place], with pathology revealing invasive moderately differentiated adenocarcinoma [...] kg/m . - Reviewed and agree with dietetic technician registered's recommendations. Any conditions listed below are present on admission unless otherwise specified. . Dispo: pending clinical improvement Please page the [facility] pager with questions or concerns. (Found in QGenda / WebExchange) Gabriele Felipe MD, [facility] General Surgery Pager: [phone] * Shruthi Reese MD - 05/02/2024 9:13 [...] unknown) and had colectomy on 03/30/24 in [place], with pathology revealing invasive moderately differentiated adenocarcinoma [...] kg/m . - Reviewed and agree with dietetic technician registered's recommendations. Any conditions listed below are present [...] Date 05/01/24 0700 - 05/02/24 0659 Shift [id number] 5318-6267 [id number] 24 Hour Total INTAKE Irrigation 20 20 [...] unknown) and had colectomy on 03/30/24 in [place], with pathology revealing invasive moderately differentiated adenocarcinoma [...] kg/m . - Reviewed and agree with dietetic technician registered's recommendations. Any conditions listed below are present on admission unless otherwise specified. . Dispo: pending clinical intervention and response Please page the [facility] pager with questions or concerns. (Found in QGenda / WebExchange) Almita Saini MD General Surgery Resident, PGY1 Pager: [phone] * Gabriele Felipe MD - 04/30/2024 2:01 [...] unknown) and had colectomy on 03/30/24 in [place], with pathology revealing invasive moderately differentiated adenocarcinoma [...] post call, or otherwiseunavailable. Gabriele Felipe MD, [facility] General Surgery Pager: [phone] documented in this encounterOSU [facility] Note* Nursing Notes - Giovanna Cifuentes RN - 05/08/2024 8:41 PM EDT 2040 MD Sanders paged: I got in report that MIVF were discontinued but the order is still in. Patient is not hooked up please clarify. Thanks [phone] 2048 MD Sanders returned page. MIVF order discontinued. [facility]07-19-2024 Procedure note* Catherine Delatorre II, MD - [...] obtained and sent to lab. [facility] Work Phone: 1(602) 330-422207-19-2024 Procedure note* Catherine Delatorre II, MD - [...] Nghia Becerra MD documented in this encounterOSU [facility] Nurse Note* Nursing Notes - Arron Lamar RN - 05/07/2024 4:24 PM EDT Interventional Radiology procedure completed of image guided drain placement with IR Attending Juan Ramon with sedation and local numbing agent. Intra- procedure specimens collected and sent to lab foranalysis. Pt to travel back to [place] [id number] for post procedure recovery. [facility] Nurse Note* Nursing Notes - Susie Fuentes [...] Spouse did request we look for a [facility] agency that could do 1 or 2 home drew visits. Referrals started, no accepting [facility] at this time. Timer extended to [...] 8:00 AM Anjali Denton; UROLOGY NURSE Steven, [facility] [place] Arrive at: Arrive to 2nd Floor, Registration [address] EEI 05/20/2024 1:00 PM [facility] Imaging at [facility] Outpatient Care Arrive at: Arrive to First Floor Registration JO 05/20/2024 1:45 PM Hilary Lewis General and Gastrointestinal Surgery Outpatient Care [place] Arrive at: Arrive to 1st Floor Registration [...] discharge planning needs. AUDRA Moreno Colorectal Surgery [phone] For evening and weekend discharge assistance: Pager for quality control tech PCRM at [phone] Pager for quality control tech [phone] [facility]07-19-2024 Nurse Surgical operation note* Christy French RN - 05/07/2024 3:01 PM EDT Patient denies history of radiation or chemo. Patient denies history of seizures or strokes. Patient reports abdominal mesh from previous hernia surgery. [facility]07-19-2024 Nurse Note* Christy French RN - 05/07/2024 [...] or stroke. documented in this encounterMer[facility] Nurse Note* Nursing Notes - Karen Laboy RN - 05/07/2024 11:26 AM EDT WOC/ET FOLLOW UP NOTE: In to see Mr. Posada for colostomy education. His said they don't need help with anything regarding colostomy care today. She also said they have plenty of supplies right now. Pt was up and ambulating back from the bathroom with the CUSTOMER SERVICE CORRESPONDENCE CLERK during visit. 05/07/24 1100 Plan Problem colostomy, est Current Plan ostomy prescription done;lesson, first Visit Type Consult with RN WOCT Visit Frequency PRN Last Date Seen 05/07/24 Karen REED, RN-, [facility] [phone] [facility]07-18-2024 Nurse Note* Nursing Notes - Susie Fuentes RN - 05/06/2024 12:47 PM EDT Patient was discussed in morning rounds. Last 24 Hour Updates: Andrew Posada is a 58 y.o. male PMH of colonic adenocarcinoma s/p sigmoidectomy with rectosigmoid anastomosis c/b dehiscence requiring end colostomy (presumed) who presents with abdominal abscess. His original surgery was completed in [place]. Outside hospital completed a scan- CTAP revealing [...] for ongoing needs and planning. AUDRA Moreno [phone] For evening and weekend discharge assistance: Pager for quality control tech PCRYe at [phone] Pager for quality control tech [phone] [facility]07-18-2024 Plan of care note* Plan of Care [...] or concerns please call us directly at [phone] for questions [phone]. [facility] Consult note* Jon Tapia MD - 05/05/2024 4:56 PM EDTAssociated Order(s): IP CONSULT TO INTERVENTIONAL RADIOLOGY Images from the original note were not included. Vascular Interventional Radiology Consult Note Interventional Radiology Clinic [phone] - Interventional Radiology Scheduling [phone] [facility] artist blacksmith [id number] - [facility] artist blacksmith [phone] PATIENT: Mr. Andrew Posada Admission Date: 04/30/2024 [...] consult to procedure. Questions For questions regarding [facility] Inpatients please call [phone]. For questions regarding [facility] Inpatients please call [phone]. For questions regarding Biopsies, please call [phone]. [facility] Work Phone: 1(420) 501-315507-17-2024 Consult note* Jon Tapia MD - 05/05/2024 4:56 PM EDTAssociated Order(s): IP CONSULT TO INTERVENTIONAL RADIOLOGY Images from the original note were not included. Vascular Interventional Radiology Consult Note Interventional Radiology Clinic [phone] - Interventional Radiology Scheduling [phone] [facility] artist blacksmith [id number] - [facility] artist blacksmith [id number] PATIENT: Mr. Andrew Posada Admission Date: 04/30/2024 [...] consult to procedure. Questions For questions regarding [facility] Inpatients please call [phone]. For questions regarding [facility] Inpatients please call [phone]. For questions regarding Biopsies, please call [phone]. documented in this encounterOSU [facility] Nurse Note* Nursing Notes - Dorcas Krishnamurthy RN - 05/04/2024 4:17 PM EDT Images from the original note were not included. WOC/ET Nursing Consult/Evaluation Note Evaluated Andrew Posada for ostomy located in LLQ. Description of stoma: LLQ presumed end colostomy from 03-30-24 from surgery in [place] for colon cancer. Stoma moist red, budded, 1 1/2'', functioning with soft brown stool. Opal at bedside, she was taught how to carefor colostomy at outside hospital and was sent home with 2-piece Keller pouches. He is currentlywearing a 1-piece pouch from here but they prefer 2-piece system. No insurance. Pouch changed todayfor continued education, provided with printed education material and kit with pouches. I gave him coloplast flat 1-piece pouches [id number] and our 2-piece flat 2 10/23'' ConvaTec system. They seem to prefer at this time Keller 2-piece brand but we do not stock these. I will write a script for supply numbers to help guide them as what they can out of pocket buy from various outlets such as [facility] [facility] and the ostomy companies like Keller, Coloplast, and Convatec. PCRM working on setting [...] notified of assessment and plan. Please page #[phone] or reconsult with any further needs. Dorcas Krishnamurthy RN [facility]* Nursing Notes - Susie Fuentes RN - 05/04/2024 2:40 PM EDT Patient was discussed in morning rounds. Last 24 Hour Updates: Pt had cisneros in place- will discharge with this and referral made for OP Urology, inChute message sent to get appointment. Pt had [...] to follow for ongoing needs and planning. AURDA Moreno [phone] For evening and weekend discharge assistance: Pager for quality control tech PCRM at [phone] Pager for quality control tech [phone] Addendum: CT scan scheduled. [facility] Plan of care note* Plan of Care [...] integrity 7. RD to follow [facility]07-14-2024 Nurse Note* Nursing Notes - Nuria Starks RN - 05/02/2024 6:16 PM EDT IHIS chat with MD Blake: pt able to void another 50ml. Bladder scan was 330ml. [facility]07-14-2024 Nurse Note* Nursing Notes - Nuria Starks [...] 1 hour after flomax given. [facility]07-12-2024 Nurse Note* Nursing Notes - Luz Marina Ramos RN - 04/30/2024 11:06 PM EDT This nurse paged the on-call provider:This is Luz Marina Alves. Mr. Posada in [phone] can we discontinue his scheduled Tylenol and place a PRN order? He only wants one Tylenol when he needs it. My # [phone] [id number]:Tylenol order changed from scheduled to PRN. This nurse will continue to monitor and will report as necessary. [facility]07-12-2024 Procedure note* Nghia Becerra MD - 04/30/2024 [...] patient's care. Nghia Becerra MD [facility]07-12-2024 Nurse Note* Nursing Notes - Miguel A Heaton RN - 04/30/2024 4:43 PM EDT Interventional Radiology procedure completed of image guided drain placement with IR Attending Dr Delatorre with sedation and local numbing agent. Intra- procedure specimens collected and sent to lab for analysis. Pt to travel back to inpatient room for post procedure recovery. [facility]07-12-2024 Nurse Surgical operation note* Aracelis Stinson RN - 04/30/2024 3:29 PM EDT Patient denies hx of chemo and radiation. Patient denies metal or foreign objects in body EXCEPT abdominal mesh. Patient denies hx of seizure or stroke. [facility]07-12-2024 Hospital Discharge instructions* Discharge Instructions* Susie Fuentes RN - 04/30/2024 3:10 PM EDT Images from the original note were not included. COLORECTAL ADDITIONAL CONTACTS For Concerns During Weekend or Evening Hours: -If you have questions or concerns call and ask the inseam trimming machine operator to page the surgical processor quality control tech. Reminder: [facility] messaging goes unmonitored during evenings and weekends. Any concerns or questions during this time, please call using instructions above. Clinic Office Main Number: [phone] Colorectal non-Cancer: [phone] Fax Line: [phone] Experimental Assembler: Susie Fuentes ([facility]) SW: Xi Rollins ([facility]) ENTEROSTOMAL THERAPY RN + OSTOMY Clinic+ IMPORTANT: Automated Post Discharge Call Patient Information As part of your care, we will call you at the primary number we have on file, the day after you aredischarged at 9:30 a.m. to check on you. Please expect a two-minute automated telephone call from the hospital. This call will come from [phone]. If you are unable to answer or do not receive the automated call, please call [phone] to complete this important evaluation. By answering the phone evaluation, a [facility] nurse will be notified if you [...] with enriched, refined white flour Soda crackers [place] Toasts Foods to avoid: Bread containing bran [...] or seeds Applesauce Pears, peaches Peeled apricots [place] cherries Ripe banana Ripe avocado Fruit [...] fat free milks Coffee Decaffeinated coffee Tea [place] Carbonated beverages Fruit juice (except prune juice) Foods to avoid: All other beverages Miscellaneous Foods allowed: Salt used in moderation Mild spices Gravy Cream sauces Foods to avoid: Rich, highly spiced, or seasoned foods and sauces Fried foods Pickles Olives Relishes 1999 - April 13, [address], [facility]. This handout is for informational purposes only. Talk with your doctor or healthcare team if you have any questions about your care. For more health information, call the [employer] for [employer] Information at [phone] or email: [email or web address]. * Discharge Instr - Notify* Susie Fuentes RN - 04/30/2024 3:09 PM EDT For Concerns During Weekend or Evening Hours: -If you have questions or concerns call and ask the inseam trimming machine operator to have the general surgery chief resident paged. Reminder: [facility] messaging goes unmonitored during evenings and weekends. Any concerns or questions during this time, please call using instructions above. Clinic Office Main Number: [phone] NOTIFY PHYSICIAN: SYMPTOMS WOUND INFECTION - Increase [...] your physician's office and go to the [facility] Emergency Room. If you are outside of [place], please go to your local emergency Home Care for Your [place] Fluid Drain One or more tubes have [...] After hours and weekends, call the hospital inseam trimming machine operator at and ask for the Interventional residential director quality control tech. * Discharge Instr - DME* Susie Fuentes RN - 04/30/2024 3:10 PM EDT Ostomy Supplies Resources If you have trouble getting your ostomy supplies or your health insurance does not cover the cost of your supplies, the following resources may be able to help you: A Little Easier Recovery https://www.Citrus Search ostomy supplies Coloplast https://www.coloplastcare.com/en-[place]/ostomy May provide a 3-month supply of limited ostomy supplies, one time each year. You will need to submit an application. [facility] [address] [place] [address] [facility] Ostomy [facility] [employer] [facility] - Ostomy Support Group [address] [id number] An ostomy support group meets on the Friday of each month at 7:00 pm. Donated ostomy supplies may be available. Email Vazquez James at [email or web address] for more information [employer]) https://Kid Bunchlus.DIRAmed.com/articles/tfidsmt-rjxsbtzssa-adcnmhy/ May provide a 3-month supply of limited ostomy supplies, one time each year. Odilia , option 6 May provide a 3-month supply of ostomy supplies, 2 times a year. You will need to submit an application. documented in this encounter[facility] Emergency department Note* Mara Tang RN - 04/30/2024 1:14 PM EDT Report called to 12 Catherine KING. [facility]07-12-2024 Emergency department Note* Mara Tang RN - [...] to ER just arrived post op from [place] to the on Friday) Readmission Information Was patient readmitted within 30 Days? No Information Source Information Source patient ;spouse;review of medical record Information Source Name Opal Posada spouse Information Source Number # listed is for curt Edwards [phone] Outpatient Providers Outpatient Providers Updated In [facility] No Contact Information Experimental Assembler/SW Added to Care Team No This Auto Parts Delivery Driver is Primary Experimental Assembler/SW Yes Experimental Assembler Name Carrie ZHU Experimental Assembler's Phone Number [phone] Social Work Contact Name See daily coverage for ER SW Options Advisor's Phone Number See daily coverage for ER [...] Employment/Financial Employed? Yes Employment Details Works at CURRENT Employment/Financial Concerns no Source Of Income salary/wages Financial Concerns other (see comments) (Patient is linked with the [facility] Funding source) Insurance Medical Insurance Verified Yes Prescription Coverage Yes Pharmacy updated in [facility] Yes Initial Discharge Planning Home Care Services (AUTOMOTIVE SOFTWARE ENGINEER) No Home Therapies (AUTOMOTIVE SOFTWARE ENGINEER) None DME (AUTOMOTIVE SOFTWARE ENGINEER) None Medical Supplies (AUTOMOTIVE SOFTWARE ENGINEER) Ostomy Supplies;Other (comment) (They were given ostomy supplies when they left [place]) Patient Goal for Discharge Return home with assistance from family and friends Anticipated discharge disposition Home Anticipated Services at Discharge Outpatient wound/drain/ostomy care;Outpatient follow up Anticipated Changes Related to Illness none Current Discharge Risk chronically ill (Cancer diagnosed March 09 then had surgery in [place] 03-30) Transportation Available family or friend will provide Home Care Services (AUTOMOTIVE SOFTWARE ENGINEER) Additional Home Care Services (AUTOMOTIVE SOFTWARE ENGINEER) no Assessment/Concerns to be Addressed Concerns To [...] with colon cancer 03-09-24 and went to [place] for a colectomy with colostomy placement which was performed on 03/30/2024. He returned to [facility] a few days ago, noted progressive [...] have colostomy supplies that were provided in [place] Initial PCRM Discharge Planning Patient resides in [place] traveled to [place] for colectomy, had complications requiring colostomy. He traveled to [place] to seek expedited care and a friend had the same surgery and did well.Post colectomy for colon cancer in [place], presents to [facility] ER with intraabdominal infection, wound dehiscence and drainage. They just arrived in the [facility] from surgery on 04-24-24. He is uninsured but,connected to the [employer] system.Notified Rose in financial services for additionalresources. Mr Posada would like to receive care at [facility] with local Oncology in the [place] area. Final plan will be determined closer to discharge, pending therapy and medical team recommendations. Patient/family verbalized understanding and agreement with the plan of care. Patient/family have no questions at this time. PCR will continue to follow patient with multidisciplinary team for ongoing assessment of needs and for discharge planning. Medical team updated. BRIANNA Lucero, RN, [facility] Patient Care Commissary Clerk [facility] Emergency/Observation Department /[phone] Available via secure chat * Marcia Vasquez [...] diagnosed with colon cancer and went to [place] for a colectomy with colostomy placement which [...] outside hospital were pushed to [facility] from [facility]. Will consult general surgery for evaluation and [...] 2304 SO: hx colorectal cancer, went to [facility] for colectomy. Now with worsening abd pain. Has multiple intraabdominal abscesses. Admitted to colorectal Impression: Intraabdominal/pelvic abscess Surgical wound dehiscence Hx CRC s/p colectomy and colostomy Hypokalemia Disposition: Admit Medications Medications - No data to display This note was dictated using vushaper Dictation Software. Attempts at proofreading have been made, however errors may still occasionally occur. Marcia Vasquez MD Resident 04/29/24 0046 * Renee Cox RN - 04/28/2024 11:58 PM EDT Transferred from [facility]. HX of Colon cancer, went to [facility] for resection that took place on 03/30, hadcomplications, ended up with a colostomy that became infected now has purulent drainage. PT A&O. * Renetta Mason RN - 04/28/2024 11:58 PM EDT Bed: E017 Expected date: 04/28/24 Expected time: 12:00 AM Means of arrival: Hospital Transport Comments: documented in this encounter[facility] Emergency department Note* Mara Tang RN - 04/30/2024 12:15 PM EDT Attempted to call report to Brittney Miller RN unavailable to take report at this time. [facility] History of Present illness Narrative* Susie Fuentes [...] have coveragefor medications. DAVID Moreno Colorectal Surgery [phone] For evening and weekend discharge assistance: Pager for quality control tech [facility] at [phone] Pager for quality control tech [phone] * Cj Medina RPH - 04/29/2024 12:53 AM EDT Department of Pharmacy Outside Facility Transfer Note Patient: Andrew Posada Room/Bed: E017/E017 Patient has transferred from the Emergency Department at [facility] . I have reviewed records from the outside hospital available via scanned images in the media tab of the electronichealth record and confirmed the following antimicrobial, antiepileptic, and anticoagulant medications were received by the patient prior to arrival at [facility]: Antimicrobials: - Piperacillin/tazobactam 4.5 grams IV at ~1900 Other: - Potassium chloride 10 mEq IV at ~1730 and ~1900 Please feel free to contact me with any further questions. Cj Medina, Selene, LAURI, BCEMP, BCCCP, BCPS Specialty Practice Pharmacist - Emergency Medicine Pager: [phone] Work Portable Date/Time: 04/29/2024 12:53 AM documented in this encounterOSU [facility] Emergency department Note* Sue Martin RN - 04/30/2024 5:56 AM EDT Pt's abd wound with copious bloody/purulent drainage. Dressing and gown changed. Wound cleansed with NS. [facility] Emergency department Note* Sue Martin RN - 04/29/2024 11:46 PM EDT Pt declines 0000 blood draw. [facility] Consult note* Jon Tapia MD - 04/29/2024 10:27 AM EDTAssociated Order(s): IP CONSULT TO INTERVENTIONAL RADIOLOGY Vascular Interventional Radiology Consult Note Interventional Radiology Clinic [phone] - Interventional Radiology Scheduling [phone] [facility] artist blacksmith [phone] - [facility] artist blacksmith [phone] PATIENT: Mr. Andrew Posada Admission Date: 04/28/2024 [...] consult to procedure. Questions For questions regarding [facility] Inpatients please call [phone]. For questions regarding [facility] Inpatients please call [phone]. For questions regarding Biopsies, please call [phone]. [facility] Work Phone: 1(211) 730-143507-11-2024 Consult note* Jon Tapia MD - 04/29/2024 10:27 AM EDTAssociated Order(s): IP CONSULT TO INTERVENTIONAL RADIOLOGY Vascular Interventional Radiology Consult Note Interventional Radiology Clinic [phone] - Interventional Radiology Scheduling [phone] [facility] artist blacksmith [phone] - [facility] artist blacksmith [phone] PATIENT: Mr. Andrew Posada Admission Date: 04/28/2024 [...] consult to procedure. Questions For questions regarding [facility] Inpatients please call [phone]. For questions regarding [facility] Inpatients please call [phone]. For questions regarding Biopsies, please call [phone]. documented in this encounterOSU [facility] Emergency department Note* Jazmine Tovar RN - 04/29/2024 9:29 AM EDTSummary: Initial assessment - Catherine MIGUEL A [facility] 04/29/24 0922 Referral Information Arrived From emergency department;home or self-care (From home to ER just arrived post op from [place] to the on Friday) Readmission Information Was patient readmitted within 30 Days? No Information Source Information Source patient ;spouse;review of medical record Information Source Name Opal Posada spouse Information Source Number # listed is for curt Edwards [phone] Outpatient Providers Outpatient Providers Updated In IS No Contact Information Experimental Assembler/SW Added to Care Team No This Auto Parts Delivery Driver is Primary Experimental Assembler/SW Yes Experimental Assembler Name Jazmine- MIGUEL A ZHU Experimental Assembler's Phone Number [phone] Social Work Contact Name See daily coverage for ER SW Options Advisor's Phone Number See daily coverage for ER [...] Employment/Financial Employed? Yes Employment Details Works at CURRENT Employment/Financial Concerns no Source Of Income salary/wages Financial Concerns other (see comments) (Patient is linked with the [facility] Funding source) Insurance Medical Insurance Verified Yes Prescription Coverage Yes Pharmacy updated in [facility] Yes Initial Discharge Planning Home Care Services (AUTOMOTIVE SOFTWARE ENGINEER) No Home Therapies (AUTOMOTIVE SOFTWARE ENGINEER) None DME (AUTOMOTIVE SOFTWARE ENGINEER) None Medical Supplies (AUTOMOTIVE SOFTWARE ENGINEER) Ostomy Supplies;Other (comment) (They were given ostomy supplies when they left [place]) Patient Goal for Discharge Return home with assistance from family and friends Anticipated discharge disposition Home Anticipated Services at Discharge Outpatient wound/drain/ostomy care;Outpatient follow up Anticipated Changes Related to Illness none Current Discharge Risk chronically ill (Cancer diagnosed March 09 then had surgery in [place] 03-30) Transportation Available family or friend will provide Home Care Services (AUTOMOTIVE SOFTWARE ENGINEER) Additional Home Care Services (AUTOMOTIVE SOFTWARE ENGINEER) no Assessment/Concerns to be Addressed Concerns To [...] with colon cancer 03-09-24 and went to [place] for a colectomy with colostomy placement which was performed on 03/30/2024. He returned [facility] a few days ago, noted progressive [...] have colostomy supplies that were provided in [place] Initial PCR Discharge Planning Patient resides in [place] traveled to [place] for colectomy, had complications requiring colostomy. He traveled to [place] to seek expedited care and a friend had the same surgery and did well.Post colectomy for colon cancer in [place], presents to [facility] ER with intraabdominal infection, wound dehiscence and drainage. [place] the [place]. He is uninsured but,connected to the [employer] system.Notified Rose in financial services for additionalresources. Mr Posada would like to receive care at [facility] with local Oncology in the [facility]. Final plan will be determined closer to discharge, pending therapy and medical team recommendations. Patient/family verbalized understanding and agreement with the plan of care. Patient/family have no questions at this time. PCRM will continue to follow patient with multidisciplinary team for ongoing assessment of needs and for discharge planning. Medical team updated. BRIANNA Lucero, RN, [facility] Patient Care Commissary Clerk [facility] Emergency/Observation Department /[phone] Available via secure chat [facility]07-11-20[facility] Emergency department Note* Marcia Vasquez MD - [...] Marcia Vasquez MD Resident 04/29/24423 [facility] Work Phone: 1(976) 128-119607-11-2024 Physician Emergency department Note* Marcia Vasquez MD - 04/29/2024 12:24 AM EDT DEPARTMENT OF EMERGENCY MEDICINE CHIEF COMPLAINT Post-Op Problem HPI Andrew Posada is a 58 y.o. male with history of colon cancer s/p resection w/ colostomy who presents as a transfer from [facility] for abdominal abscess. The patient states that he was recently diagnosed with colon cancer and went to [place] for a colectomy with colostomy placement which [...] outside hospital were pushed to [facility] from [facility]. Will consult general surgery for evaluation and [...] 2304 SO: hx colorectal cancer, went to [facility] for colectomy. Now with worsening abd pain. Has multiple intraabdominal abscesses. Admitted to colorectal Impression: Intraabdominal/pelvic abscess Surgical wound dehiscence Hx CRC s/p colectomy and colostomy Hypokalemia Disposition: Admit Medications Medications - No data to display This note was dictated using vushaper Dictation Software. Attempts at proofreading have been made, however errors may still occasionally occur. Marcia Vasquez MD Resident 04/29/24 0046 [facility]07-10-2024 Emergency department Note* Renee Cox RN - 04/28/2024 11:58 PM EDT Transferred from [facility]. HX of Colon cancer, went to [facility] for resection that took place on 03/30, hadcomplications, ended up with a colostomy that became infected now has purulent drainage. PT A&O. [facility]07-10-2024 Emergency department Note* Renetta Mason RN - 04/28/2024 11:58 PM EDT Bed: E017 Expected date: 04/28/24 Expected time: 12:00 AM Means of arrival: Hospital Transport [facility] Author Handy Royal [facility] Note Date/Time March 01, 2025 12:50 pm [facility] Medical Records Department [address] [place] [address] Discharge Summary 03/01/25 1245 MR#: [id number] Acct: [id number] Name: TIMANDREW A Rep #:[id number] : 1965 59 From: Handy Harris PCP: WENDY Gonzalez Status:A DM IN Location: [facility] [id number] Providers Date of Admission: 02/24/25 Date of Discharge: 03/01/25 Primary Care Physician: WENDY Gonzalez Consultations 02/24/25 12:29 Consult: General Surgery Routine Consulting Provider: Kunal Chandler Reason for Consult: SMALL BOWEL OBSTRUCTION EMERGENT Consult: No MD Notified: Yes Date Notified: 02/24/25 Time Notified: 11:33 Method of Notification: Verbal 02/25/25 07:00 Consult: Onc/Wound/foundry worker general Routine Comment: Reason for Consult:: colostomy, nephrotube [...] (Auto) 59.6, Lymph % (Auto) 15.3 L, Elk % (Auto) 19.7 H, Eos % (Auto) [...] hernia. 4. Inguinal hernias, bilaterally. 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 throughout body [...] (Auto) 46.6 L, Lymph % (Auto) 22.3, Elk % (Auto) 25.5 H, Eos % (Auto) [...] minutes early. Please contact our office at [phone], option #4 for a nurse if you [...] minutes early. Please contact our office at [phone], option #4 for a nurse if you have any questions following discharge. Bring ostomy supplies with you to your follow-up. Below is an example of foods to continue eating at discharge. You may increase diet to regular food after 3 days from discharge date. If you have any questions, please contact our office. Transitional Diet Beverages: ? Soda (cola, diet cola, lemon-levelock, diet lemon-levelock, garrett duane, diet garrett duane) ? Tea (hot or iced) ? Milk (low-fat, 2%, lactose free) ? Coffee ? Juice (without pulp) ? Oral Nutrition supplement Breakfast: ? Hot cereal (oatmeal or cream of wheat) ? Scrambled eggs ? Blueberry muffin ? Cold cereal (no whole grain cereals) ? [place] (white) Lunch or Dinner: Deli Items: Hot Items: [place] sandwich Roast [place] Tuna salad (sandwich or alone) Macaroni & [...] Physician,No Primary [Non-Staff] - Elly Bellamy NP, SHIPPING CLERK/ADMIN-C [Primary Care Provider] - Disposition Disposition (needs filled in before D/C Order can be placed): Home, Self Care Charges/Coding Visit Charges Inpatient E&M: 96822 Disch Hosp >30min 03/01/25 1250 <Electronically signed by Handy Royal MD> Cosigner Signature (if applicable): CC: SHIPPING CLERK/ADMINZach Bellamy; Dr. Handy Royal MD~ Signed [facility] Work Phone: Evaluation note* Diagnosis Colon cancer- Primary Malignant neoplasm of colon, unspecified site Abscess Cellulitis and abscess of unspecified site Postprocedural urinary retention Infection Unspecified infectious and parasitic diseases Abscess Cellulitis and abscess of unspecified site documented in this encounter [facility] Diagnosis Urinary retention- Primary Retention of urine, unspecified documented in this encounter [facility]* Diagnosis Abscess Cellulitis and abscess of unspecified site documented in this encounter [facility]* Diagnosis Malignant neoplasm of rectum- Primary Malignant neoplasm of rectum documented in this encounter [facility]* Diagnosis Malignant neoplasm of rectum documented in [facility] encounter [facility]* Diagnosis Malignant neoplasm of rectum- Primary documented in this encounter [facility] Diagnosis Malignant neoplasm of rectum documented in this encounter [facility]* Diagnosis Dehydration- Primary Hydronephrosis, unspecified hydronephrosis type Malignant neoplasm of colon, unspecified part of colon Bradycardia Other specified cardiac dysrhythmias Hydronephrosis, unspecified hydronephrosis type documented in this encounter [facility]* Diagnosis Mixed stress and urge urinary incontinence- Primary Mixed incontinence urge and stress (male)(female) Ureteral stricture Stricture or kinking of ureter documented in this encounter [facility] Diagnosis Mixed stress and urge urinary incontinence- Primary Mixed incontinence urge and stress (male)(female) Ureteral stricture Stricture or kinking of ureter Malignant neoplasm of rectum- Primary documented in this encounter [facility] Diagnosis Mixed stress and urge urinary incontinence- Primary Mixed incontinence urge and stress (male)(female) Ureteral stricture Stricture or kinking of ureter Ureteral stricture- Primary Stricture or kinking of ureter documented in this encounter [facility] (narrative)* Unlisted Procedure Code (Routine) - Pending Review Specialty Diagnoses / Procedures Referred By Contac t Referred To Contact Procedures PLATELET MONITORING PER PROTOCOL Hilary Lewis MD [address] [place] [address] Referral ID Status Reason Start Date Expiration Date V isits Requested Visits Authorized [id number] Pending Review 04/29/2024 05/24/2025 1 1 * Unlisted Procedure Code (Routine) - Pending Review Specialty Diagnoses / Procedures Referred By Contac t Referred To Contact Procedures DVT/VTE RISK ASSESSMENT Hilary Lewis MD [address] [place] [address] Referral ID Status Reason Start Date Expiration Date V isits Requested Visits Authorized [id number] Pending Review 04/29/2024 05/24/2025 1 1 [facility] Consultation (Routine) - New Request Specialty Diagnoses / Procedures Referred By Contac t Referred To Contact Diagnoses Bradycardia Hilary Lewis MD [address] [facility] [address] [place] [address] Referral ID Status Reason Start Date Expiration Date V isits Requested Visits Authorized [id number] New Request 10/18/2024 11/12/2025 1 1 Scheduling Instructions Please schedule this patient in the Department of Cardiology for 30d cardiac event monitor. * Radiology (Routine) - New Request Specialty Diagnoses / Procedures Referred By Adam combs Referred To Contact Diagnoses Hydronephrosis, unspecified hydronephrosis type Malignant neoplasm of colon, unspecified part of colon Procedures EVENT MONITOR, CARDIAC EVENT MONITOR, CARDIAC Hilray Lewis MD [address] [place] [address] Referral ID Status Reason Start Date Expiration Date V isits Requested Visits Authorized [id number] New Request 10/18/2024 11/12/2025 1 1 * Radiology (Emergency) - New Request Specialty Diagnoses / Procedures Referred By Adam t Referred To Contact Procedures ECG Hilary Lewis MD [address] [address] Referral ID Status Reason Start Date Expiration Date V isits Requested Visits Authorized [id number] New Request 10/15/2024 11/09/2025 1 1 * Radiology (Routine) - New Request Specialty Diagnoses / Procedures Referred By Contac t Referred To Contact Diagnoses Hydronephrosis, unspecified hydronephrosis type Malignant neoplasm of colon, unspecified part of colon Procedures CASE REQUEST DEPARTMENT USE ONLY INTERVENTIONAL RADIOLOGY Flory Gregory, SOUND CONTROLLER-HORTICULTURE/FLORICULTURE TEACHER [address] [place] [address] Referral ID Status Reason Start Date Expiration Date V isits Requested Visits Authorized [id number] New Request 10/14/2024 11/08/2025 1 1 * (Routine) Specialty Diagnoses / Procedures Referred By Adam t Referred To Contact CATHERINE [address] [place] [address] Referral ID Status Reason Start Date Expiration Date Visits Re quested Visits Authorized * Consultation (Routine) - New Request Specialty Diagnoses / Procedures Referred By Adam combs Referred To Contact Urology Diagnoses Hydronephrosis, unspecified hydronephrosis type Carmelina Sanders DO [address] [address] Referral ID Status Reason Start Date Expiration Date V isits Requested Visits Authorized [id number] New Request 10/12/2024 11/06/2025 1 1 [facility] for visit Narrative* Auth/Cert Specialty Diagnoses / Procedures Referred By Adam combs Referred To Contact Diagnoses Malignant neoplasm of rectum Malignant neoplasm of rectum [C20] Procedures CA SIGMOIDOSCOPY FLX DX W/COLLJ SPEC BR/WA IF PFRMD SIGMOIDOSCOPY DIAGNOSTIC Hilary Lewis MD [address] [address] [facility] [address] [place] [address] [place] [address] Referral ID Status Reason Start Date Expiration Date Visits Re quested Visits Authorized [id number] 1 1 [facility] for visit Narrative* Auth/Cert Specialty Diagnoses / Procedures Referred By Adam t Referred To Contact Diagnoses Dehydration, INOCENCIA Hilary Lewis MD [address] [address] [facility] [address] [place] [address] Referral ID Status Reason Start Date Expiration Date Visits Re quested Visits Authorized [id number] 1 1 [facility] Summary Purpose Family History No Family History [...] Do you have a Healthcare Power of Production Operations Inspector? No February 16, 2025 9:18am Advance Directives No February 16 9:18am Do you have a Healthcare Power of Production Operations Inspector? No February 24, 2025 7:42am Advance Directive Response Recorded Date/ Time Advance Directives on File No February 16, 2025 9:18am Living Will No February 16, 2025 9:18am Do you have a Healthcare Power of Production Operations Inspector? No February 16, 2025 9:18am Advance Directives No February 16 9:18am Do you have a Healthcare Power of Production Operations Inspector? No February 24, 2025 12:38pm Reason for Referral Specialty Diagnoses / Procedures Referred By Contac t Referred To Contact Diagnoses Abscess Procedures CT ABDOMEN/PELVIS WITH CONTRAST CHG CT ABDOMEN & PELVIS W/CONTRAST MATERIAL Hilary Lewis MD [address] [place] [address] Referral ID Status Reason Start Date Expiration Date V isits Requested Visits Authorized [id number] New Request 05/04/2024 05/29/2025 1 1 Specialty Diagnoses / Procedures Referred By Contac t Referred To Contact Urology Diagnoses Abscess Postprocedural urinary retention Hilary Lewis MD [address] [place] [phone] Referral ID Status Reason Start Date Expiration Date V isits Requested Visits Authorized [id number] New Request 05/03/2024 05/28/2025 1 1 Specialty Diagnoses / Procedures Referred By Contac t Referred To Contact Procedures PLATELET MONITORING PER PROTOCOL Hilary Lewis MD [address] [place] [phone] Referral ID Status Reason Start Date Expiration Date V isits Requested Visits Authorized [id number] New Request 05/01/2024 05/26/2025 1 1 Specialty Diagnoses / Procedures Referred By Contac t Referred To Contact Procedures DVT/VTE RISK ASSESSMENT Hilary Lewis MD [address] [place], [place] [phone] Referral ID Status Reason Start Date Expiration Date V isits Requested Visits Authorized [id number] New Request 05/01/2024 05/26/2025 1 1 Specialty Diagnoses / Procedures Referred By Contac t Referred To Contact Oncology Diagnoses Malignant neoplasm of rectum Hilary Lewis MD [address] [place] [phone] Referral ID Status Reason Start Date Expiration Date V isits Requested Visits Authorized [id number] New Request 05/20/2024 06/14/2025 1 1 Specialty Diagnoses / Procedures Referred By Contac t Referred To Contact Diagnoses Malignant neoplasm of rectum Hilary Lewis MD [address] [place] [address] Referral ID Status Reason Start Date Expiration Date V isits Requested Visits Authorized [id number] New Request 05/20/2024 06/14/2025 1 1 Specialty Diagnoses / Procedures Referred By Contac t Referred To Contact Radiation Oncology Diagnoses Malignant neoplasm of rectum Hilary Lewis MD [address] [facility] [address] [place] [address] Referral ID Status Reason Start Date Expiration Date V isits Requested Visits Authorized [id number] New Request 05/20/2024 06/14/2025 1 1 Specialty Diagnoses / Procedures Referred By Contac t Referred To Contact Diagnoses Malignant neoplasm of rectum Procedures MRI RECTUM WITHOUT AND WITH CONTRAST MRI PELVIS WITH AND WITHOUT CONTRAST CHG MRI PELVIS W/O & W/CONTRAST MATERIAL Shruthi Welch, SOUND CONTROLLER-HORTICULTURE/FLORICULTURE TEACHER 1800 [facility] [address] [place] [address] Referral ID Status Reason Start Date Expiration Date V isits Requested Visits Authorized [id number] New Request 09/01/2024 09/26/2025 1 1 Specialty Diagnoses / Procedures Referred By Contac t Referred To Contact Diagnoses Malignant neoplasm of rectum Procedures FLEXIBLE SIGMOIDOSCOPY CA SIGMOIDOSCOPY FLX DX W/COLLJ SPEC BR/WA IF PFRMD Hilary Lewis MD [address] [place] [address] Referral ID Status Reason Start Date Expiration Date V isits Requested Visits Authorized [id number] New Request 10/29/2024 11/23/2025 1 1 Chief [...] and content) DATE CREATED AUTHOR 03/18/2024 Re[facility] DATE CREATED AUTHOR AUTHOR'S ORGANIZ ATION 02/25/2025 [facility] DATE CREATED AUTHOR AUTHOR'S ORGANIZ ATION 03/19/2025 [facility] Reason for Visit (unrecogniz ed section and content) Reason Comments Post-Op Problem Reason Comments Follow-up Specialty Diagnoses / Procedures Referred By Adam t Referred To Contact Urology Diagnoses Abscess Postprocedural urinary retention Hilary Lewis MD [address] [address] Referral ID Status Reason Start Date Expiration Date V isits Requested Visits Authorized [id number] New Request 05/03/2024 05/28/2025 1 1 Specialty Diagnoses / Procedures Referred By Contac t Referred To Contact Diagnoses Abscess Procedures CT ABDOMEN/PELVIS WITH CONTRAST CHG CT ABDOMEN & PELVIS W/CONTRAST MATERIAL Hilary Lewis MD [address] [phone] Referral ID Status Reason Start Date Expiration Date V isits Requested Visits Authorized [id number] New Request 05/04/2024 05/29/2025 1 1 Reason [...] PELVIS W/O & W/CONTRAST MATERIAL Shruthi Welch, SOUND CONTROLLER-HORTICULTURE/FLORICULTURE TEACHER [address] [facility] [address] [place] [address] Referral ID Status Reason Start Date Expiration Date V isits Requested Visits Authorized [id number] New Request 09/01/2024 09/26/2025 1 1 Specialty Diagnoses / Procedures Referred By Adam combs Referred To Contact Urology Diagnoses Hydronephrosis, unspecified hydronephrosis type Carmelina Sanders DO [address] [place] [address] Referral ID Status Reason Start Date Expiration Date V isits Requested Visits Authorized [id number] New Request 10/12/2024 11/06/2025 1 1 Reason [...] Walters MD [address] [place] [address] Referral ID Status Reason Start Date Expiration Date Visits Re quested Visits Authorized [id number] Denied 10/21/2024 11/15/2025 1 0 Scheduled Active [...] - Radiology - Provider: Rachael Hoffman) Lidocaine-epinephrine 1%-1:[id number] injection 20 mL (COMPLETED) 20 mL, Other, [...] 0134 ($$New Bag$$ - Provider: Renee Cox RN)0629 (Stopped - Provider: Renee Cox RN) PRN [...] Oral, EVERY 6 HOURS NEEDED, Starting on Tmoa 04/29/24 at 0325, Until Fri04/30/24 at 1338, [...] - Reason: Transfer to a Procedural area)1639 (BANNER Unhold - Provider: Automatic Transfer) 0856 (Given [...] Angelique Merchant RN - Reason: Patient/family refused)1432 (BANNER Hold - Provider: Automatic Transfer - Reason: Transfer to a Procedural area)1639 (BANNER Unhold - Provider: Automatic Transfer)1825 (Not Given [...] ($$New Bag$$ - Provider: Angelique Merchant RN)1432 (BANNER Hold - Provider: Automatic Transfer - Reason: Transfer to a Procedural area)1639 (BANNER Unhold - Provider: Automatic Transfer)2105 ($$New Bag$$ - Provider: Giovanna Cifuentes RN) 0342 ($$New Bag$$ - Provider: Giovanna Cifuentes RN) Tamsulosin HCl (FLOMAX) capsule 0.4 mg 0.4 mg, Oral, DAILY, First dose (after last modification) on Fri05/02/24 at 1000, Until Discontinued, Slow release product. Do not chew or crush 0955 (Given - Provider: Angelique Merchant RN)1432 (BANNER Hold - Provider: Automatic Transfer - Reason: Transfer to a Procedural area)163 (BANNER Unhold - Provider: Automatic Transfer) 0856 (Given - Provider: Angelique Merchant RN) 1034 (Given - Provider: Angelique Merchant RN) Thiamine (Vitamin B-1) injection 100 mg 100 mg, Intravenous, DAILY, 7 doses, First dose on Fri05/04/24 at 0900, Last dose on Fri05/10/24 at 0900 1026 (Not Given - Provider: Angelique Merchant RN - Reason: Patient/family refused)1432 (BANNER Hold - Provider: Automatic Transfer - Reason: Transfer to a Procedural area)163 (BANNER Unhold - Provider: Automatic Transfer) 0856 (Given - Provider: Angelique Merchant RN) 1035 (Given - Provider: Angelique Merchant RN) zinc sulfate (ZINCATE) capsule 220 mg 220 mg, Oral, DAILY BEFORE BREAKFAST, 14 doses, First dose on Fri05/04/24 at 0600, Last dose on Fri05/17/24 at 0600, Take 1 hr before, 2 hr after meals. 0702 (Given - Provider: Sherin León RN)1432 (BANNER Hold - Provider: Automatic Transfer - Reason: Transfer to a Procedural area)1639 (BANNER Unhold - Provider: Automatic Transfer) 0638 (Given [...] 2 g, Intravenous, Administer over 30 Minutes, VOCATIONAL COORDINATOR TO PROCEDURE, 1 dose, Starting on Fri05/07/24 [...] to 1.3 mg/dL use IV replacement. 143 (BANNER Hold - Provider: Automatic Transfer - Reason: Transfer to a Procedural area)163 (BANNER Unhold - Provider: Automatic Transfer) Magnesium sulfate [...] to high volume output; administer 2g. 143 (BANNER Hold - Provider: Automatic Transfer - Reason: Transfer to a Procedural area)163 (BANNER Unhold - Provider: Automatic Transfer) Magnesium sulfate [...] at 200 mL/hr, Administer over 30 Minutes, VOCATIONAL COORDINATOR TO PROCEDURE, 1 dose, Starting on Fri05/07/24 [...] Line Nausea / Vomiting, Discharge Readmit 1432 (BANNER Hold - Provider: Automatic Transfer - Reason: Transfer to a Procedural area)1639 (BANNER Unhold - Provider: Automatic Transfer) Ondansetron 4mg/2ml (ZOFRAN) injection 4 mg(Linked Group 2) 4 mg, Intravenous, EVERY 6 HOURS NEEDED, Starting on 04/30/24 at 1413, Until 05/09/24 at 1614, Nausea / Vomiting, 1st Line Nausea / Vomiting, If patient is unable to tolerate PO., Discharge Readmit 1432 (BANNER Hold - Provider: Automatic Transfer - Reason: Transfer to a Procedural area)1639 (BANNER Unhold - Provider: Automatic Transfer) oxyCODONE (ROXICODONE) [...] in level of consciousness)., Discharge Readmit 1432 (BANNER Hold - Provider: Automatic Transfer - Reason: Transfer to a Procedural area)1639 (BANNER Unhold - Provider: Automatic Transfer) oxyCODONE HCl [...] in previous 12 hours., Discharge Readmit 1432 (BANNER Hold - Provider: Automatic Transfer - Reason: Transfer to a Procedural area)1639 (BANNER Unhold - Provider: Automatic Transfer) Phenol (CHLORASEPTIC) 1.4 % oral spray 1 spray 1 spray, Mouth/Throat, NEEDED, Starting on Fri04/30/24 at 1413, Until 05/09/24 at 1614, Sore Throat, Patient may self-administer., Discharge Readmit 1432 (BANNER Hold - Provider: Automatic Transfer - Reason: Transfer to a Procedural area)1639 (BANNER Unhold - Provider: Automatic Transfer) Potassium Bicarb-Citric [...] to 2.9 mmol/L use IV replacement. 1432 (BANNER Hold - Provider: Automatic Transfer - Reason: Transfer to a Procedural area)1639 (BANNER Unhold - Provider: Automatic Transfer) Potassium chloride [...] - Reason: Transfer to a Procedural area)163 (BANNER Unhold - Provider: Automatic Transfer) Potassium chloride [...] unable to tolerate PO., Discharge Readmit 1432 (BANNER Hold - Provider: Automatic Transfer - Reason: Transfer to a Procedural area)1639 (BANNER Unhold - Provider: Automatic Transfer) Prochlorperazine (COMPAZINE) tablet 5 mg(Linked Group 5) 5 mg, Oral, EVERY 6 HOURS NEEDED, Starting on Fri04/30/24 at 1413, Until 05/09/24 at 1614, Refractory Nausea Vomiting, If unrelieved by Ondansetron., Discharge Readmit 1432 (BANNER Hold - Provider: Automatic Transfer - Reason: Transfer to a Procedural area)1639 (BANNER Unhold - Provider: Automatic Transfer) Sodium chloride [...] or piggy back medication., Discharge Readmit 1432 (BANNER Hold - Provider: Automatic Transfer - Reason: Transfer to a Procedural area)1449 ($$New Bag$$ - Provider: Christy French RN)1639 (BANNER Unhold - Provider: Automatic Transfer) sodium phosphate [...] high volume output administer 15 mmol. 1432 (BANNER Hold - Provider: Automatic Transfer - Reason: Transfer to a Procedural area)163 (BANNER Unhold - Provider: Automatic Transfer) sodium phosphate [...] after last phosphate replacement dose administered. 1432 (BANNER Hold - Provider: Automatic Transfer - Reason: Transfer to a Procedural area)163 (BANNER Unhold - Provider: Automatic Transfer) Sodium-potassium phosphate [...] - Reason: Transfer to a Procedural area)1639 (BANNER Unhold - Provider: Automatic Transfer) Sodium-potassium phosphate [...] to 1.8 mg/dL utilize IV replacement. 1432 (BANNER Hold - Provider: Automatic Transfer - Reason: Transfer to a Procedural area)1639 (BANNER Unhold - Provider: Automatic Transfer) Linked Groups [...] DIRECTED, Starting on Fri04/30/24 at 1758, Until Carbon 05/09/24 at 1614, Other, Surgery Non-ICU Electrolyte [...] DIRECTED, Starting on Fri04/30/24 at 1758, Until Carbon 05/09/24 at 1614, Other, Surgery Non-ICU Electrolyte [...] (Anesthesia Volume Adjustment - Provider: Louie Cardenas APRN-LINE MANAGER)1206 (Restarted - Provider: Rehan Guardado RN)1249 [...] Megan Lara RN)1750 ($$New Bag$$ - Provider: Syklar Jackson RN)2019 (Rate/Dose Verify - Provider: Megan [...] Care Teams (unrecognized sec tion and content) Drag Car Racer Relationship Specialty Start Date End Date Self, Self PCP - General Other 04/29/24 Drag Car Racer Relationship Specialty Start Date End Date Self, Self PCP - General Other 04/29/24 Drag Car Racer Relationship Specialty Start Date End Date Self, Self PCP - General Other 04/29/24 Drag Car Racer Relationship Specialty Start Date End Date Self, Self PCP - General Other 04/29/24 Drag Car Racer Relationship Specialty Start Date End Date Self, Self PCP - General Other 04/29/24 Drag Car Racer Relationship Specialty Start Date End Date Self, Self PCP - General Other 04/29/24 Drag Car Racer Relationship Specialty Start Date End Date Self, Self PCP - General Other 04/29/24 Drag Car Racer Relationship Specialty Start Date End Date Self, Self PCP - General Other 04/29/24 Drag Car Racer Relationship Specialty Start Date End Date Self, Self PCP - General Other 04/29/24 Guy Ho MD [address] [place] [address] Oncologist Hematology 10/14/24 Ambrose Leija DO [address] [facility] [address] [phone] Radiation Oncologist Radiation Oncology 10/14/24 Laura Guerra, FERNANDO Registered Nurse 10/14/24 Drag Car Racer Relationship Specialty Start Date End Date Self, Self PCP - General Other 04/29/24 Guy Ho MD [address] [place] [address] Oncologist Hematology 10/14/24 Ambrose Leija DO [address] [facility] [address] [place] [phone] Radiation Oncologist Radiation Oncology 10/14/24 Laura Guerra, RN Registered Nurse 10/14/24 Drag Car Racer Relationship Specialty Start Date End Date Self, Self PCP - General Other 04/29/24 Guy Ho MD [address] [place] [address] Oncologist Hematology 10/14/24 Ambrose Leija DO [address] [facility] [address] [place] [address] Radiation Oncologist Radiation Oncology 10/14/24 Laura Guerra, FERNANDO Registered Nurse 10/14/24 Drag Car Racer Relationship Specialty Start Date End Date Self, Self PCP - General Other 04/29/24 Guy Ho MD [address] [place] [phone] Oncologist Hematology 10/14/24 Ambrose Leija DO [address] [facility] [address] [place] [address] Radiation Oncologist Radiation Oncology 10/14/24 [...] 2024 End: November 03, 2024 Rubi Mercedes SHIPPING CLERK/ADMIN, SHIPPING CLERK/ADMIN-C Attending Provider Active Start: November 03, 2024 [...] End: November 22, 2024 Rubi Mercedes NP, SHIPPING CLERK/ADMIN-C Attending Provider Active Start: November 22, 2024 [...] End: December 28, 2024 Rubi Mercedes NP, SHIPPING CLERK/ADMIN-C Attending Provider Active Start: December 28, 2024 [...] Member Role Status Dates Elly Bellamy NP, SHIPPING CLERK/ADMIN-C Primary Care Provider Acti ve Team Status: [...] End: March 01, 2025 Elly Bellamy NP, SHIPPING CLERK/ADMIN-C Primary Care Provider Acti ve Start: February [...] art: February 27, 2025 Elly Bellamy NP, SHIPPING CLERK/ADMIN-C Primary Care Provider Acti ve Start: February [...] art: February 27, 2025 Elly Bellamy NP, SHIPPING CLERK/ADMIN-C Primary Care Provider Acti ve Start: February [...] art: February 28, 2025 Elly Bellamy NP, SHIPPING CLERK/ADMIN-C Primary Care Provider Acti ve Start: February [...] BE BASED ON THE PRIMARY CLINICAL RECORDS. [employer] provides no warranty or guarantee of the accuracy or completeness of information in this document.
[2025-03-25 01:52] LABS: Bacteria 2+ /hpf (None Seen); Red Blood Cells-Urine 25-50 SEEN /hpf (0-5); White Blood Cells >100 SEEN /hpf (0-5)
[2025-03-25 01:54] LABS: Bacteria 2+ /hpf (None Seen)
[2025-03-25 01:55] LABS: Red Blood Cells-Urine 25-50 SEEN /hpf (0-5); White Blood Cells >100 SEEN /hpf (0-5)
[2025-03-25 04:08] LABS: Urine Sodium < 20 mmol/L (Not Establ.)
--- NOTE | 2025-03-25 04:17 | PCM.HOSP.N ---
Hospitalist Note UA appearance concerning, UCx pending, zosyn started.
[2025-03-25 04:29] LABS: Anion Gap 22 (5-15); Carbon Dioxide 15.6 mmol/L (21.0-32.0); Chloride 85 mmol/L (98-108); EST Glomerular Filtration Rate 7 (>60); Glucose 96 mg/dL (70-99); Potassium 4.6 mmol/L (3.3-5.1); Sodium Level 122 mmol/L (133-145)
[2025-03-25] MEDS: Pantoprazole Sodium 40 MG in 0.9% Normal Saline (100mL MB+) 100 ML 330 MG IV ×3 (04:57→21:50)
[2025-03-25] MEDS: Piperacil/Tazobactam 3.375 GM in 0.9% Normal Saline (50mL MB+) 50 ML IV ×2 (05:13→22:24)
[2025-03-25 05:44] LABS: BUN 134 mg/dL (4-19); BUN/Creat Ratio 16.5 RATIO (10-20); Calcium,Total 8.8 mg/dL (7.6-11.0); Creatinine, Serum 8.12 mg/dL (0.70-1.20); Estimated Creatinine Clearance 5.64 ml/min (50-250)
[2025-03-25 05:59] LABS: Absolute Neutrophil Count 6.1 X10^3/uL (2.0-7.7); Basophil# 0.01 X10^3/uL; Basophil% 0.1 % (0-1); Eosinophil# 0.03 X10^3/uL; Eosinophils% 0.4 % (0-5); Hemoglobin 11.6 g/dL (13.0-16.5); Lymphocyte % 6.4 % (19-41); Mean Corp Hgb Conc 37.4 g/dL (32-36); Mean Corpuscular Hgb 33.9 pg (27.0-32.0); Mean Corpuscular Volume 90.6 fL (80-94); Monocyte% 11.6 % (0-10); NRBC Flagged by Analyzer 0 % (0-5); Neutrophil # 6.09 X10^3/uL (2.7-7.7); Neutrophil % 78.5 % (47-70); POSITIVE DIFFERENTIAL YES; Platelet Count 167 K/mm3 (150-450); RBC Distribution Width CV 13.6 % (11.6-14.6); RBC Distribution Width SD 45.4 fl (35.1-43.9); Red Blood Count 3.42 M/mm3 (4.6-6.2); White Blood Count 7.8 K/mm3 (4.4-11.0)
[2025-03-25 07:01] LABS: Lipase 1851 U/L (13-75)
[2025-03-25 07:05] LABS: AST(SGOT) 14 U/L (<=37); Alanine Aminotransfer ALT/SGPT 13 U/L (<=46); Albumin, Serum 2.9 g/dL (3.5-5.0); Alkaline Phosphatase 158 U/L (40-129); Anion Gap 20 (5-15); BUN 131 mg/dL (4-19); BUN/Creat Ratio 17.1 RATIO (10-20); Calcium,Total 8.4 mg/dL (7.6-11.0); Carbon Dioxide 14.6 mmol/L (21.0-32.0); Chloride 88 mmol/L (98-108); Creatinine, Serum 7.64 mg/dL (0.70-1.20); EST Glomerular Filtration Rate 8 (>60); Estimated Creatinine Clearance 5.99 ml/min (50-250); Globulin 3.1 g/dL (2.2-4.2); Glucose 82 mg/dL (70-99); Potassium 4.3 mmol/L (3.3-5.1); Sodium Level 123 mmol/L (133-145)
--- NOTE | 2025-03-25 08:15 | PN.HOSP_ITS ---
Reason for Visit Reason for Visit: Diagnoses Acute kidney failure, unspecified (03/25/25) Subjective Subjective Feeling ok. Objective Data Objective Data Vital Signs: Vital Signs Temp Pulse Resp BP Pulse Ox O2 Del Method 36.4 C L 60 16 106/78 100 Room Air 03/25/25 02:27 03/25/25 02:27 03/25/25 02:27 03/25/25 02:27 03/25/25 02:27 03/25/25 03:00 Oxygen Delivery Method Room Air Weight: 40.7 kg Body Mass Index (BMI) 13.6 Intake & Output: Intake and Output for Last 24 Hours 03/23/25 03/24/25 03/25/25 23:59 23:59 23:59 Intake Total 166.5 / 166.5 1468.33 / 1468.33 Balance 166.5 / 166.5 1468.33 / 1468.33 Lab / Micro Data 03/25/25 05:40 03/25/25 05:40 Labs: Laboratory Results - last 24 hr 03/24/25 22:20: WBC 12.1 H, RBC 4.55 L, Hgb 15.2, Hct 41.1, MCV 90.3, MCH 33.4 H , MCHC 37.0 H, RDW Std Deviation 46.3 H, RDW Coeff of Rosalee 13.9, Plt Count 341, MPV 9.2, Immature Gran % (Auto) 3.600 H, Neut % (Auto) 84.6 H, Lymph % (Auto) 3.5 L, Sutton % (Auto) 7.6, Eos % (Auto) 0.1, Baso % (Auto) 0.6, Absolute Neuts (auto) 10.2 H, Absolute Lymphs (auto) 0.42 L, Nucleated RBC % 0, Sodium 118 L*, Potassium 5.2 H, Chloride 73 L*, Carbon Dioxide 15.1 L, Anion Gap 30 H, BUN 127 H*, Creatinine 9.18 H*, Estim Creat Clear Calc 5.13 L*, Est GFR (MDRD) Non-Af 6 L, BUN/Creatinine Ratio 13.8, Glucose 51 L, Lactic Acid < 1.0, Calcium 9.1, P hosphorus 11.8 H*, Magnesium 1.8 03/24/25 22:20: Magnesium 1.8, Total Bilirubin < 0.15, Direct Bilirubin 0.30, AST 18, ALT 18, Alkaline Phosphatase 220 H, Total Protein 2.1 L, Albumin 3.6, G lobulin -1.5 L, Lipase 2012 H, Procalcitonin 2.54 H 03/25/25 00:59: Urine Color Straw, Urine Clarity Turbid, Urine pH 5.0, Ur Specific [place]man 1.020, Urine Protein 100 H, Urine Glucose (UA) Normal, Urine Ketones Negative, Urine Occult Blood 250 H, Urine Nitrite Negative, Urine Bilirubin Negative, Urine Urobilinogen Normal, Ur Leukocyte Esterase 500 H, Urine RBC 25-50 SEEN, Urine WBC >100 SEEN, Ur Squamous Epith Cells 0 SEEN, Urine Bacteria 2+, Urine Mucus 0 SEEN 03/25/25 01:00: Urine Color Straw, Urine Clarity Turbid, Urine pH 5.0, Ur Specific [place] 1.020, Urine Protein 100 H, Urine Glucose (UA) Normal, Urine Ketones Negative, Urine Occult Blood 250 H, Urine Nitrite Negative, Urine Bilirubin Negative, Urine Urobilinogen Normal, Ur Leukocyte Esterase 500 H, Urine RBC 25-50 SEEN, Urine WBC >100 SEEN, Ur Squamous Epith Cells 0 SEEN, Urine Bacteria 2+, Urine Mucus 0 SEEN 03/25/25 01:33: POC Glucose 104 03/25/25 03:00: Ur Random Sodium < 20, Urine Creatinine 98.50 03/25/25 03:20: Sodium 122 L, Potassium 4.6, Chloride 85 L, Carbon Dioxide 15.6 L, Anion Gap 22 H, BUN 134 H*, Creatinine 8.12 H*, Estim Creat Clear Calc 5.64 L*, Est GFR (MDRD) Non-Af 7 L, BUN/Creatinine Ratio 16.5, Glucose 96, Calcium 8.8 03/25/25 05:40: WBC 7.8, RBC 3.42 L, Hgb 11.6 L, Hct 31.0 L, MCV 90.6, MCH 33.9 H, MCHC 37.4 H, RDW Std Deviation 45.4 H, RDW Coeff of Rosalee 13.6, Plt Count 167, MPV 9.0, Immature Gran % (Auto) 3.000 H, Neut % (Auto) 78.5 H, Lymph % (Auto) 6.4 L, Sutton % (Auto) 11.6 H, Eos % (Auto) 0.4, Baso % (Auto) 0.1, Absolute Neuts (auto) 6.1, Absolute Lymphs (auto) 0.50 L, Nucleated RBC % 0, Sodium 123 L, Potassium 4.3, Chloride 88 L, Carbon Dioxide 14.6 L, Anion Gap 20 H, BUN 131 H*, Creatinine 7.64 H*, Estim Creat Clear Calc 5.99 L*, Est GFR (MDRD) Non-Af 8 L, BUN/Creatinine Ratio 17.1, Glucose 82, Calcium 8.4, Total Bilirubin 0.40, AST 14, ALT 13, Alkaline Phosphatase 158 H, Total Protein 6.0, Albumin 2.9 L, Globulin 3.1, Albumin/Globulin Ratio 1.0, Lipase 1851 H Radiography Diagnostic Testing: Radiology Impression Abdomen/Pelvis CT 03/25/25 23:56 IMPRESSION: 1. Limited noncontrast exam, without evidence of bowel obstruction or acute pancreatitis. 2. Diffuse bladder wall thickening, which may again be the result of cystitis, outlet obstruction, or neoplasm. Correlate with urinalysis and consider Urology referral. 3. Bilateral percutaneous nephrostomy tubes, without hydronephrosis. Reading Location: [facility] Physical Exam Const alert and no apparent distress Constitutional Narrative: no respiratory distress. cachetic. Resp normal respiratory effort, no retractions, no use of accessory muscles and clear to auscultation bilaterally Cardio regular rate, regular rhythm, S1 normal heart sound and S2 normal heart sound GI normal to inspection, nondistended, normoactive bowel sounds, soft to palpation, non-tender and non-distended Extremity normal to inspection Assessment & Plan Assessment/Plan (1) Nausea & vomiting: PLAN: CT abdomen pelvis was limited but no evidence of bowel obstruction no acute pancreatitis. Diffuse bladder wall thickening. Supportive management (2) Acute pancreatitis: PLAN: Lipase trending down. Continue with IV fluids. CT did not show any evidence of a acute pancreatitis but lipase was very elevated. Supportive management at this time. On clear liquid diet (3) Acute kidney injury: PLAN: Likely prerenal as well as some ATN. Check kidney ultrasound. FENa 0.93%, consistent with prerenal azotemia. Patient has nephrostomy tubes. Urology and nephrology consulted. (4) Hyperkalemia: PLAN: Resolved Likely due to INOCENCIA currently improved. (5) Hyponatremia: PLAN: Improving. Likely secondary to dehydration. (6) Metabolic acidosis: PLAN: Secondary to INOCENCIA (7) Hyperphosphatemia associated with renal failure: PLAN: 11.8 on admission (was 2.7 on 03/24). Monitor PLAN: Plan VTE prophylaxis: LMWH. Charges/Coding Visit Charges Inpatient E&M: 56229 Subs Hosp L2
--- NOTE | 2025-03-25 08:24 | US_ITS ---
PROCEDURE: KIDNEY AND BLADDER 03/25/2025 REASON FOR EXAM: INOCENCIA TECHNIQUE: Ultrasound images of the kidneys were obtained. COMPARISON: None. FINDINGS: The right kidney measures 10.7 x 5.8 x 4.4 cm. The renal cortical thickness is 11 mm. There is no evidence of hydronephrosis. The renal parenchymal echogenicity is normal. There are no focal abnormalities. There is a percutaneous nephrostomy tube coiled in the renal pelvis. The left kidney measures 10.5 x 5.1 x 4.7 cm. The renal cortical thickness is 11 mm. The renal parenchymal echogenicity is normal. There are no focal abnormalities. There is no hydronephrosis. There is a percutaneous nephrostomy tube coiled in the renal pelvis. The urinary bladder is partially evacuated. There is gravity dependent debris in the urinary bladder. US/Kidney and Bladder IMPRESSION: 1. There are bilateral percutaneous nephrostomy tubes coil in the renal pelvis . 2. The kidneys are otherwise unremarkable. Reading Location: [id number]
--- NOTE | 2025-03-25 09:36 | WOUNDNOTE ---
was asked to see patient d/t patient having ostomies. pt is known to this nurse from a previous admission. Pt had a previous surgery in [place]. pt has a colostomy that is not functioning. did discuss with that she could just place a dry dressing to this stoma since pt now has a jejunostomy. pt still having moderate liquid output but pt and state this has decreased. pt with nephrostomy tubes as well. Pt sitting up at edge of bed. ostomy appliances intact at this time. aware to call if needs arise. states we just came for fluids.
[2025-03-25] MEDS: Enoxaparin 30 MG/0.3 ML Syringe SC (10:25)
--- NOTE | 2025-03-25 10:58 | PCM.CONS.R ---
Documented by User: [email or web address] Ravi 03/25/25 11:14 Assessment & Plan Assessment/Plan (1) Acute kidney injury: (2) Rectal cancer: (3) Hyponatremia: PLAN: Plan This is a 59-year-old Religion male with past medical history significant for rectal cancer (followed by Dr. Ho) status post APR with colostomy March 2024. Began radiation June 2024, began chemotherapy around that time. Patient was admitted to [facility] for bowel obstruction with bilateral moderate-sized hydronephrosis status post eventual bilateral nephrostomy tubes placed. In February 2025 patient admitted to [facility] for high-grade bowel obstruction requiring surgical intervention with diverting loop ileostomy. Nephrology consulted in view of elevated creatinine. Baseline creatinine has been ranging around 1-1.5 mg/dL. Creatinine 9 on admission, with IV fluids last serum creatinine 7.64. Potassium normal, bicarb 15. Patient is nonoliguric. INOCENCIA likely from significant volume depletion along with hypotension (blood pressures low in the ER). Patient is not on any antihypertensives, no recent VICKY or ARB's. On exam patient appears to be hypovolemic. Continue IV fluids as ordered. No acute indication for renal placement therapy. Patient is on clear liquid diet. Patient has normal baseline sodium, sodium on admission 118 and today his sodium is 123. Continue IV fluids and once able to eat recommend increasing protein intake as best as patient can. On IV antibiotics for UTI, urine culture pending. Further orders forthcoming as hospitalization evolves, thank you for allowing us to participate in the care of Mr. Posada. Assessment and plan reviewed with Dr. Johansen. HPI Consult Data Date of Consult: 03/25/25 HPI Narrative HPI Narrative: CARLOS POSADA, is a 59 Religion male with past medical history significant for rectal cancer (followed by Dr. Ho) status post APR with colostomy March 2024. Began radiation June 2024, began chemotherapy around that time. [facility] obstruction with bilateral moderate-sized hydronephrosis status post eventual bilateral nephrostomy tubes placed. In February 2025 patient admitted to [facility] for high-grade bowel obstruction requiring surgical intervention with diverting loop ileostomy. Patient then presented to emergency room early this morning with intractable nausea, vomiting, unable to take in his food or fluids for at least 3 days or longer. In the emergency room creatinine 9.18, BUN 127. CT abdomen pelvis without contrast no evidence of bowel obstruction, bilateral percutaneous nephrostomy tubes without hydronephrosis noted. Patient was admitted for further evaluation and treatment. Nephrology consulted in view of elevated creatinine. Patient is alert and oriented but sleepy, at bedside. states patient has had significant weight loss now weighing around 90 pounds. Not taking much fluid or food in since last weekend. No NSAIDs. No new oral medications. reports patient had urine output but noted it to be less than dark yellow. No blood. [facility] Medical History Hypokalemia UTI (urinary tract infection) CINV (chemotherapy-induced nausea and vomiting) Cloudy urine Bradycardia Prerenal azotemia Constipation Hypoalbuminemia Wears glasses Cancer DVT (deep venous thrombosis) Syncope Non-smoker Cataract (lens) fragments in eye following cataract surgery, bilateral Mandeep blood in stool Chronic diarrhea of unknown origin Change in bowel habit Colon cancer Home Medications ?Medication ?Instructions ?Recorded ?Last Taken ?Type ondansetron 8 mg disintegrating 8 mg PO Q8H PRN nausea and 11/22/24 Unknown Rx tablet vomiting #30 tabs pantoprazole 40 mg tablet,delayed 40 mg PO DAILY 30 days #30 tabs 03/01/25 Unknown Rx release potassium chloride 20 mEq 20 meq PO DAILY 2 weeks #14 tabs 03/01/25 Unknown Rx tablet,extended release Allergy/AdvReac Type Severity Reaction Status Date / Time No Known Allergies Allergy Verified 03/24/25 21:50 Family History (Updated 03/25/25 @ 01:[address] Melva Roberts MD) Son Cancer Father Colon cancer Mother Heart disease Hypertension Heart failure Surgical History H/O insertion of nephrostomy tube H/O hernia repair S/P colonoscopy H/O colectomy History of creation of ostomy Social History household members: spouse Smoking Status: Never smoker alcohol intake: never substance use type: does not use ROS ROS Narrative As in HPI Physical Exam Narrative Alert and oriented x 3, no apparent distress. Sleepy S1, S2, RRR Lungs sound clear Abdomen soft, nontender No edema bilateral nephrostomy tubes with yellow urine in bags Lab / Micro Data 03/25/25 05:40 03/25/25 05:40 Labs: Laboratory Results - last 24 hr 03/24/25 22:20: WBC 12.1 H, RBC 4.55 L, Hgb 15.2, Hct 41.1, MCV 90.3, MCH 33.4 H, MCHC 37.0 H, RDW Std Deviation 46.3 H, RDW Coeff of Rosalee 13.9, Plt Count 341, MPV 9.2, Immature Gran % (Auto) 3.600 H, Neut % (Auto) 84.6 H, Lymph % (Auto) 3.5 L, [place] % (Auto) 7.6, Eos % (Auto) 0.1, Baso % (Auto) 0.6, Absolute Neuts (auto) 10.2 H, Absolute Lymphs (auto) 0.42 L, Nucleated RBC % 0, Sodium 118 L*, Potassium 5.2 H, Chloride 73 L*, Carbon Dioxide 15.1 L, Anion Gap 30 H, BUN 127 H*, Creatinine 9.18 H*, Estim Creat Clear Calc 5.13 L*, Est GFR (MDRD) Non-Af 6 L, BUN/Creatinine Ratio 13.8, Glucose 51 L, Lactic Acid < 1.0, Calcium 9.1, Phosphorus 11.8 H*, Magnesium 1.8 03/24/25 22:20: Magnesium 1.8, Total Bilirubin < 0.15, Direct Bilirubin 0.30, AST 18, ALT 18, Alkaline Phosphatase 220 H, Total Protein 2.1 L, Albumin 3.6, Globulin -1.5 L, Lipase 2012 H, Procalcitonin 2.54 H 03/25/25 00:59: Urine Color Straw, Urine Clarity Turbid, Urine pH 5.0, Ur Specific [place] 1.020, Urine Protein 100 H, Urine Glucose (UA) Normal, Urine Ketones Negative, Urine Occult Blood 250 H, Urine Nitrite Negative, Urine Bilirubin Negative, Urine Urobilinogen Normal, Ur Leukocyte Esterase 500 H, Urine RBC 25-50 SEEN, Urine WBC >100 SEEN, Ur Squamous Epith Cells 0 SEEN, Urine Bacteria 2+, Urine Mucus 0 SEEN 03/25/25 01:00: Urine Color Straw, Urine Clarity Turbid, Urine pH 5.0, Ur Specific [place] 1.020, Urine Protein 100 H, Urine Glucose (UA) Normal, Urine Ketones Negative, Urine Occult Blood 250 H, Urine Nitrite Negative, Urine Bilirubin Negative, Urine Urobilinogen Normal, Ur Leukocyte Esterase 500 H, Urine RBC 25-50 SEEN, Urine WBC >100 SEEN, Ur Squamous Epith Cells 0 SEEN, Urine Bacteria 2+, Urine Mucus 0 SEEN 03/25/25 01:33: POC Glucose 104 03/25/25 03:00: Ur Random Sodium < 20, Urine Creatinine 98.50 03/25/25 03:20: Sodium 122 L, Potassium 4.6, Chloride 85 L, Carbon Dioxide 15.6 L, Anion Gap 22 H, BUN 134 H*, Creatinine 8.12 H*, Estim Creat Clear Calc 5.64 L*, Est GFR (MDRD) Non-Af 7 L, BUN/Creatinine Ratio 16.5, Glucose 96, Calcium 8.8 03/25/25 05:40: WBC 7.8, RBC 3.42 L, Hgb 11.6 L, Hct 31.0 L, MCV 90.6, MCH 33.9 H, MCHC 37.4 H, RDW Std Deviation 45.4 H, RDW Coeff of [place] 13.6, Plt Count 167, MPV 9.0, Immature Gran % (Auto) 3.000 H, Neut % (Auto) 78.5 H, Lymph % (Auto) 6.4 L, [place] % (Auto) 11.6 H, Eos % (Auto) 0.4, Baso % (Auto) 0.1, Absolute Neuts (auto) 6.1, Absolute Lymphs (auto) 0.50 L, Nucleated RBC % 0, Sodium 123 L, Potassium 4.3, Chloride 88 L, Carbon Dioxide 14.6 L, Anion Gap 20 H, BUN 131 H*, Creatinine 7.64 H*, Estim Creat Clear Calc 5.99 L*, Est GFR (MDRD) Non-Af 8 L, BUN/Creatinine Ratio 17.1, Glucose 82, Calcium 8.4, Total Bilirubin 0.40, AST 14, ALT 13, Alkaline Phosphatase 158 H, Total Protein 6.0, Albumin 2.9 L, Globulin 3.1, Albumin/Globulin Ratio 1.0, Lipase 1851 H Micro: Microbiology 03/25/25 03:00 Stool Clostridioides difficile (PCR) - Final Imaging Radiology Impression Abdomen/Pelvis CT 03/25/25 23:56 IMPRESSION: 1. Limited noncontrast exam, without evidence of bowel obstruction or acute pancreatitis. 2. Diffuse bladder wall thickening, which may again be the result of cystitis, outlet obstruction, or neoplasm. Correlate with urinalysis and consider Urology referral. 3. Bilateral percutaneous nephrostomy tubes, without hydronephrosis. Reading Location: [id number] Documented by User: Dr. Tayler Johansen MD 03/25/25 16:16 Assessment & Plan Assessment/Plan (1) Acute kidney injury: (2) Rectal cancer: (3) Hyponatremia: PLAN: Plan This is a 59-year-old Religion male with past medical history significant for rectal cancer (followed by Dr. Ho) status post APR with colostomy March 2024. Began radiation June 2024, began chemotherapy around that time. Patient was admitted to [facility] for bowel obstruction with bilateral moderate-sized hydronephrosis status post eventual bilateral nephrostomy tubes placed. In February 2025 patient admitted to [facility] for high-grade bowel obstruction requiring surgical intervention with diverting loop ileostomy. Nephrology consulted in view of elevated creatinine. Baseline creatinine has been ranging around 1-1.5 mg/dL. Creatinine 9 on admission, with IV fluids last serum creatinine 7.64. Potassium normal, bicarb 15. Patient is nonoliguric. INOCENCIA likely from significant volume depletion along with hypotension (blood pressures low in the ER). Patient is not on any antihypertensives, no recent VICKY or ARB's. On exam patient appears to be hypovolemic. Continue IV fluids as ordered. No acute indication for renal placement therapy. Patient is on clear liquid diet. Patient has normal baseline sodium, sodium on admission 118 and today his sodium is 123. Continue IV fluids and once able to eat recommend increasing protein intake as best as patient can. On IV antibiotics for UTI, urine culture pending. Further orders forthcoming as hospitalization evolves, thank you for allowing us to participate in the care of Mr. Posada. Assessment and plan reviewed with Dr. Johansen. yadira ELECTROLOGIST. ? volume depletion mediated HPI Consult Data Date of Consult: 03/25/25 [facility] Medical History Hypokalemia UTI (urinary tract infection) CINV (chemotherapy-induced nausea and vomiting) Cloudy urine Bradycardia Prerenal azotemia Constipation Hypoalbuminemia Wears glasses Cancer DVT (deep venous thrombosis) Syncope Non-smoker Cataract (lens) fragments in eye following cataract surgery, bilateral Mandeep blood in stool Chronic diarrhea of unknown origin Change in bowel habit Colon cancer Home Medications ?Medication ?Instructions ?Recorded ?Last Taken ?Type ondansetron 8 mg disintegrating 8 mg PO Q8H PRN nausea and 11/22/24 Unknown Rx tablet vomiting #30 tabs pantoprazole 40 mg tablet,delayed 40 mg PO DAILY 30 days #30 tabs 03/01/25 Unknown Rx release potassium chloride 20 mEq 20 meq PO DAILY 2 weeks #14 tabs 03/01/25 Unknown Rx tablet,extended release Allergy/AdvReac Type Severity Reaction Status Date / Time No Known Allergies Allergy Verified 03/24/25 21:50 Family History (Updated 03/25/25 @ 01:[address] Melva Roberts MD) Son Cancer Father Colon cancer Mother Heart disease Hypertension Heart failure Surgical History H/O insertion of nephrostomy tube H/O hernia repair S/P colonoscopy H/O colectomy History of creation of ostomy Social History household members: spouse Smoking Status: Never smoker alcohol intake: never substance use type: does not use Lab / Micro Data 03/25/25 05:40 03/25/25 05:40
--- NOTE | 2025-03-25 11:44 | CON.PCM.UR_ITS ---
HPI Consult Data Date of Consult: 03/25/25 HPI Narrative Reason for Consultation: bilateral nephrostomy tubes HPI Narrative: CARLOS DUMONT, is a 59 male with rectal cancer presented to the hospital with acute onset of acute kidney injury renal insufficiency appears to be mostly dehydration. Both nephrostomy tubes on place in both kidneys both of them are draining well and making good urine his creatinine is coming down with hydration I would expect the keep coming down. At some point the nephrostomy tube need to be changed but these are placed at [facility] a fairly large nephrostomy tubes and their draining well so I don't think any emergent change is necessary for these tubes the nurses can flush him that there's any concern for obstruction is no hydronephrosis on CAT scan.. Will follow but I don't think any intervention necessary for my standpoint. [facility] Medical History Hypokalemia UTI (urinary tract infection) CINV (chemotherapy-induced nausea and vomiting) Cloudy urine Bradycardia Prerenal azotemia Constipation Hypoalbuminemia Wears glasses Cancer DVT (deep venous thrombosis) Syncope Non-smoker Cataract (lens) fragments in eye following cataract surgery, bilateral Mandeep blood in stool Chronic diarrhea of unknown origin Change in bowel habit Colon cancer Home Medications ?Medication ?Instructions ?Recorded ?Last Taken ?Type ondansetron 8 mg disintegrating 8 mg PO Q8H PRN nausea and 11/22/24 Unknown Rx tablet vomiting #30 tabs pantoprazole 40 mg tablet,delayed 40 mg PO DAILY 30 da ys #30 tabs 03/01/25 Unknown Rx release potassium chloride 20 mEq 20 meq PO DAILY 2 weeks #14 tabs 03/01/25 Unknown Rx tablet,extended release Allergy/AdvReac Type Severity Reaction Status Date / Time No Known Allergies Allergy Verified 03/24/25 21:50 Family History (Updated 03/25/25 @ 01:[address] Melva Roberts MD) Son Cancer Father Colon cancer Mother Heart disease Hypertension Heart failure Surgical History H/O insertion of nephrostomy tube H/O hernia repair S/P colonoscopy H/O colectomy History of creation of ostomy Social History household members: spouse Smoking Status: Never smoker alcohol intake: never substance use type: does not use Medical Records Data Medical Nutrition Assessment Dietitian: Malnutrition Criteria Met Start: 03/25/25 11:19 Freq: Status: Active Protocol: Document 03/25/25 11:19 SB (Rec: 03/25/25 11:20 SB [id number]) Nutrition Malnutrition Evidence of Yes Malnutrition Exists Malnutrition (severe Chronic ): Evidenced By Suboptimal Energy Intake (Severe),Weight Loss (Severe), Physical Changes (Severe) Clinical Problem Chronic Disease or Condition Related Malnutrition Etiology severe protein calorie malnutrition related to inadequate oral intake and increase energy expenditure due to rectal cancer Signs/Symptoms as evidenced by PO meeting <75% of estimated nutrition needs x >6 months, 25% unintentional weight loss x 3 months, severe muscle/fat wasting in orbital and worship areas, BMI 13.6kg/m2. Status Active Problem Recommendation Dietitian Recommend advanced diet as tolerated to regular. Recommendations/ Will order 240ml ensure clear mixed ricketts TID with Changes meals. As diet is advanced recommend chocolate milkshake with dinner. Will monitor weight trends. If PO intake and weight continue to decline, recommend nutrition support. Lab / Micro Data 03/25/25 05:40 03/25/25 05:40 Labs: Laboratory Results - last 24 hr 03/24/25 22:20: WBC 12.1 H, RBC 4.55 L, Hgb 15.2, Hct 41.1, MCV 90.3, MCH 33.4 H , MCHC 37.0 H, RDW Std Deviation 46.3 H, RDW Coeff of Rosalee 13.9, Plt Count 341, MPV 9.2, Immature Gran % (Auto) 3.600 H, Neut % (Auto) 84.6 H, Lymph % (Auto) 3.5 L, [place] % (Auto) 7.6, Eos % (Auto) 0.1, Baso % (Auto) 0.6, Absolute Neuts (auto) 10.2 H, Absolute Lymphs (auto) 0.42 L, Nucleated RBC % 0, Sodium 118 L*, Potassium 5.2 H, Chloride 73 L*, Carbon Dioxide 15.1 L, Anion Gap 30 H, BUN 127 H*, Creatinine 9.18 H*, Estim Creat Clear Calc 5.13 L*, Est GFR (MDRD) Non-Af 6 L, BUN/Creatinine Ratio 13.8, Glucose 51 L, Lactic Acid < 1.0, Calcium 9.1, P hosphorus 11.8 H*, Magnesium 1.8 03/24/25 22:20: Magnesium 1.8, Total Bilirubin < 0.15, Direct Bilirubin 0.30, AST 18, ALT 18, Alkaline Phosphatase 220 H, Total Protein 2.1 L, Albumin 3.6, G lobulin -1.5 L, Lipase 2012 H, Procalcitonin 2.54 H 03/25/25 00:59: Urine Color Straw, Urine Clarity Turbid, Urine pH 5.0, Ur Specific [place] 1.020, Urine Protein 100 H, Urine Glucose (UA) Normal, Urine Ketones Negative, Urine Occult Blood 250 H, Urine Nitrite Negative, Urine Bilirubin Negative, Urine Urobilinogen Normal, Ur Leukocyte Esterase 500 H, Urine RBC 25-50 SEEN, Urine WBC >100 SEEN, Ur Squamous Epith Cells 0 SEEN, Urine Bacteria 2+, Urine Mucus 0 SEEN 03/25/25 01:00: Urine Color Straw, Urine Clarity Turbid, Urine pH 5.0, Ur Specific [place] 1.020, Urine Protein 100 H, Urine Glucose (UA) Normal, Urine Ketones Negative, Urine Occult Blood 250 H, Urine Nitrite Negative, Urine Bilirubin Negative, Urine Urobilinogen Normal, Ur Leukocyte Esterase 500 H, Urine RBC 25-50 SEEN, Urine WBC >100 SEEN, Ur Squamous Epith Cells 0 SEEN, Urine Bacteria 2+, Urine Mucus 0 SEEN 03/25/25 01:33: POC Glucose 104 03/25/25 03:00: Ur Random Sodium < 20, Urine Creatinine 98.50 03/25/25 03:20: Sodium 122 L, Potassium 4.6, Chloride 85 L, Carbon Dioxide 15.6 L, Anion Gap 22 H, BUN 134 H*, Creatinine 8.12 H*, Estim Creat Clear Calc 5.64 L*, Est GFR (MDRD) Non-Af 7 L, BUN/Creatinine Ratio 16.5, Glucose 96, Calcium 8.8 03/25/25 05:40: WBC 7.8, RBC 3.42 L, Hgb 11.6 L, Hct 31.0 L, MCV 90.6, MCH 33.9 H, MCHC 37.4 H, RDW Std Deviation 45.4 H, RDW Coeff of Ros[place]e 13.6, Plt Count 167, MPV 9.0, Immature Gran % (Auto) 3.000 H, Neut % (Auto) 78.5 H, Lymph % (Auto) 6.4 L, [place] % (Auto) 11.6 H, Eos % (Auto) 0.4, Baso % (Auto) 0.1, Absolute Neuts (auto) 6.1, Absolute Lymphs (auto) 0.50 L, Nucleated RBC % 0, Sodium 123 L, Potassium 4.3, Chloride 88 L, Carbon Dioxide 14.6 L, Anion Gap 20 H, BUN 131 H*, Creatinine 7.64 H*, Estim Creat Clear Calc 5.99 L*, Est GFR (MDRD) Non-Af 8 L, BUN/Creatinine Ratio 17.1, Glucose 82, Calcium 8.4, Total Bilirubin 0.40, AST 14, ALT 13, Alkaline Phosphatase 158 H, Total Protein 6.0, Albumin 2.9 L, Globulin 3.1, Albumin/Globulin Ratio 1.0, Lipase 1851 H Micro: Microbiology 03/25/25 03:00 Stool Enteric Bacteriology - Final 03/25/25 03:00 Stool Clostridioides difficile (PCR) - Final Imaging Radiology Impression Abdomen/Pelvis CT 03/25/25 23:56 IMPRESSION: 1. Limited noncontrast exam, without evidence of bowel obstruction or acute pancreatitis. 2. Diffuse bladder wall thickening, which may again be the result of cystitis, outlet obstruction, or neoplasm. Correlate with urinalysis and consider Urology referral. 3. Bilateral percutaneous nephrostomy tubes, without hydronephrosis. Reading Location: [facility]
--- NOTE | 2025-03-25 15:30 | CASEMGMT ---
FERNANDO FISH chart review: Patient was admitted 02/24-03/01/25 for small bowel obstruction. See assessment from 02/26/25. Patient was discharged to home with family support and follow-up plans in place. Patient returned to [facility] ED on 03/25/25 for persistent N/V. Patient was admitted for N/V, INOCENCIA, Electorlyte disturbances, and hypoglycemia. Patient's creatine was 8.12 on admission, nephro and urology consulted. FERNANDO CM in to discuss needs at discharge and readmission, at bedside. Patient states he was taking meds at home but did not take his Protonix the last couple of days. Patient attended follow-up appt with Dr Chandler. Patient has no schedule PCP appt. RN CM encouraged patient to follow-up with PCP. Patient and inquired if patient could receive IV fluids in outpatient pavilion. FERNANDO CM encourage patient to discuss with Dr. Chandler office, PCP, or oncologist. Patient denies HHC or outpatient therapy at discharge. Patient denies DME at discharge. Will monitor progress with treatment and needs at discharge. CM will continue to follow this patient and plan for a safe discharge.
--- NOTE | 2025-03-25 23:56 | CT_ITS ---
PROCEDURE: ABDOMEN/PELVIS WITHOUT CONT 03/25/2025 REASON FOR EXAM: ABD PAIN WITH ELEVATED LIPASE TECHNIQUE: Abdomen and pelvis CT without intravenous contrast. Noncontrast technique limits evaluation of the abdominal and pelvic viscera. Coronal and Sagittal reconstruction series were provided. One or more dose reduction techniques were used (e.g., Automated exposure control, adjustment of the mA and/or kV according to patient size, use of iterative reconstruction technique). PATIENT PREPARATION: Per protocol COMPARISON: CT abdomen and pelvis 02/25/2020 FINDINGS: Lung bases: Unremarkable Liver: Unremarkable Gallbladder: Unremarkable Spleen: Unremarkable Pancreas: Normal size. No surrounding inflammation. Adrenals: Unremarkable Kidneys: Bilateral percutaneous nephrostomy tubes, with pigtails formed in the renal pelvises. No hydronephrosis or stone on either side. Bladder: Diffuse wall thickening Reproductive Organs: Coarse prostatic calcifications. Bowel: Postoperative changes with ostomy in the right and left lower quadrants of the abdomen. No significant bowel dilation. Lymph nodes: No suspicious lymph node enlargement. Vasculature: Mild diffuse atherosclerotic calcifications are noted. Mesentery: There is mild stranding throughout the entirety of the abdominal mesentery, similar to prior. Bones: Degenerative changes of the spine. CT/Abdomen/Pelvis without Cont IMPRESSION: 1. Limited noncontrast exam, without evidence of bowel obstruction or acute pa ncreatitis. 2. Diffuse bladder wall thickening, which may again be the result of cystitis, outlet obstruction, or neoplasm. Correlate with urinalysis and consider Urology referral. 3. Bilateral percutaneous nephrostomy tubes, without hydronephrosis. Reading Location: [facility]
[2025-03-26 03:21] VITALS: BP 101/70; PULSE 52; RESP 14; TEMP 36.7; O2SAT 100
[2025-03-26 04:02] VITALS: BMI 13.7
[2025-03-26] MEDS: 0.9% Normal Saline (1000mL) 1,000 ML 100 ML IV ×2 (04:45→14:45)
[2025-03-26 07:28] LABS: Absolute Lymphocyte Count 0.24 X10^3/uL (0.83-4.51); Absolute Neutrophil Count 4.5 X10^3/uL (2.0-7.7); Basophil# 0.02 X10^3/uL; Basophil% 0.4 % (0-1); Eosinophil# 0.09 X10^3/uL; Eosinophils% 1.6 % (0-5); Hematocrit 29.1 % (40-54); Hemoglobin 10.7 g/dL (13.0-16.5); Lymphocyte # 0.24 X10^3/ul (0.83-4.51); Lymphocyte % 4.3 % (19-41); Mean Corp Hgb Conc 36.8 g/dL (32-36); Mean Corpuscular Hgb 33.8 pg (27.0-32.0); Mean Corpuscular Volume 91.8 fL (80-94); Mean Platelet Vol. 8.7 fl (6.2-12.0); Monocyte# 0.57 X10^3/uL; Monocyte% 10.3 % (0-10); NRBC Flagged by Analyzer 0 % (0-5); Neutrophil # 4.51 X10^3/uL (2.7-7.7); Neutrophil % 81.4 % (47-70); POSITIVE DIFFERENTIAL YES; Platelet Count 119 K/mm3 (150-450); RBC Distribution Width CV 13.6 % (11.6-14.6); RBC Distribution Width SD 46.5 fl (35.1-43.9); Red Blood Count 3.17 M/mm3 (4.6-6.2); White Blood Count 5.5 K/mm3 (4.4-11.0)
[2025-03-26 07:51] LABS: Phosphorus 5.3 mg/dL (2.7-4.5)
[2025-03-26 08:10] LABS: Anion Gap 14 (5-15); BUN 87 mg/dL (4-19); BUN/Creat Ratio 20.4 RATIO (10-20); Calcium,Total 7.9 mg/dL (7.6-11.0); Carbon Dioxide 16.4 mmol/L (21.0-32.0); Chloride 99 mmol/L (98-108); Creatinine, Serum 4.26 mg/dL (0.70-1.20); EST Glomerular Filtration Rate 15 (>60); Estimated Creatinine Clearance 10.83 ml/min (50-250); Glucose 89 mg/dL (70-99); Potassium 3.1 mmol/L (3.3-5.1); Sodium Level 130 mmol/L (133-145)
--- NOTE | 2025-03-26 09:10 | PN.HOSP_ITS ---
Reason for Visit Reason for Visit: Diagnoses Malignant neoplasm of rectum (03/25/25) Other disorders of phosphorus metabolism (03/25/25) Hypo-osmolality and hyponatremia (03/25/25) Acidosis, unspecified (03/25/25) Hyperkalemia (03/25/25) Acute pancreatitis without necrosis or infection, unspecified (03/25/25) Acute kidney failure, unspecified (03/25/25) Unspecified kidney failure (03/25/25) Nausea with vomiting, unspecified (03/25/25) Subjective Subjective Tolerating diet. Objective Data Objective Data Vital Signs: Vital Signs Temp Pulse Resp BP Pulse Ox O2 Del Method 36.7 C 52 L 14 101/70 100 Room Air 03/26/25 03:21 03/26/25 03:21 03/26/25 03:21 03/26/25 03:21 03/26/25 03:21 03/26/25 03:21 Oxygen Delivery Method Room Air Weight: 41 kg Body Mass Index (BMI) 13.7 Intake & Output: Intake and Output for Last 24 Hours 03/24/25 03/25/25 03/26/25 23:59 23:59 23:59 Intake Total 166.5 / 166.5 3350.00 / 3350.00 1050 / 1050 Output Total 1765 / 2915 1850 / 1850 Balance 166.5 / 166.5 1585.00 / 435.00 -800 / -800 Medical Nutrition Assessment Dietitian: Malnutrition Criteria Met Start: 03/25/25 11:19 Freq: Status: Active Protocol: Document 03/25/25 11:19 SB (Rec: 03/25/25 11:20 SB [id number]) Nutrition Malnutrition Evidence of Yes Malnutrition Exists Malnutrition (severe Chronic ): Evidenced By Suboptimal Energy Intake (Severe),Weight Loss (Severe), Physical Changes (Severe) Clinical Problem Chronic Disease or Condition Related Malnutrition Etiology severe protein calorie malnutrition related to inadequate oral intake and increase energy expenditure due to rectal cancer Signs/Symptoms as evidenced by PO meeting <75% of estimated nutrition needs x >6 months, 25% unintentional weight loss x 3 months, severe muscle/fat wasting in orbital and jehovah's witness areas, BMI 13.6kg/m2. Status Active Problem Recommendation Dietitian Recommend advanced diet as tolerated to regular. Recommendations/ Will order 240ml ensure clear mixed ricketts TID with Changes meals. As diet is advanced recommend chocolate milkshake with dinner. Will monitor weight trends. If PO intake and weight continue to decline, recommend nutrition support. Lab / Micro Data 03/26/25 06:55 03/26/25 06:55 Labs: Laboratory Results - last 24 hr 03/26/25 06:55: WBC 5.5, RBC 3.17 L, Hgb 10.7 L, Hct 29.1 L, MCV 91.8, MCH 33.8 H, MCHC 36.8 H, RDW Std Deviation 46.5 H, RDW Coeff of Rosalee 13.6, Plt Count 119 L , MPV 8.7, Immature Gran % (Auto) 2.000 H, Neut % (Auto) 81.4 H, Lymph % (Auto) 4.3 L, Wilkes % (Auto) 10.3 H, Eos % (Auto) 1.6, Baso % (Auto) 0.4, Absolute Neuts (auto) 4.5, Absolute Lymphs (auto) 0.24 L, Nucleated RBC % 0, Sodium 130 L, P otassium 3.1 L, Chloride 99, Carbon Dioxide 16.4 L, Anion Gap 14, BUN 87 H, C reatinine 4.26 H, Estim Creat Clear Calc 10.83 L, Est GFR (MDRD) Non-Af 15 L, B UN/Creatinine Ratio 20.4 H, Glucose 89, Calcium 7.9, Phosphorus 5.3 H Micro: Microbiology 03/25/25 03:00 Stool Enteric Bacteriology - Final 03/25/25 03:00 Stool Clostridioides difficile (PCR) - Final Radiography Diagnostic Testing: Radiology Impression Renal Ultrasound 03/25/25 08:24 IMPRESSION: 1. There are bilateral percutaneous nephrostomy tubes coil in the renal pelvis. 2. The kidneys are otherwise unremarkable. Reading Location: [id number] Physical Exam Const alert and no apparent distress Constitutional Narrative: cachectic. afebrile. HEENT head/scalp atraumatic and moist oral mucous membranes Resp normal respiratory effort, no retractions, no use of accessory muscles and clear to auscultation bilaterally Cardio regular rate, regular rhythm, S1 normal heart sound and S2 normal heart sound GI normal to inspection, nondistended, normoactive bowel sounds, soft to palpation, non-tender and non-distended Extremity normal to inspection, full ROM and no clubbing, cyanosis or edema Extremity Narrative: heron urine from nephrostomy tubes Assessment & Plan Assessment/Plan (1) Nausea & vomiting: PLAN: CT abdomen pelvis was limited but no evidence of bowel obstruction no acute pancreatitis. Diffuse bladder wall thickening. Supportive management (2) Acute pancreatitis: PLAN: Lipase trending down. Continue with IV fluids. CT did not show any evidence of a acute pancreatitis but lipase was very elevated. Supportive management at this time. On clear liquid diet Check lipid panel (particularly triglycerides) (3) Acute kidney injury: PLAN: Likely prerenal as well as some ATN. Check kidney ultrasound. FENa 0.93%, consistent with prerenal azotemia. Patient has nephrostomy tubes. Urology and nephrology consulted. asking about IVF as outpt. Previously when he was on chemo, they would call, then go to the infusion center. That would require a physician authorizing that. As he is no longer receiving chemo, I told them that would likely need to be facilitated by his PCP. (4) Hyperkalemia: PLAN: Resolved, now hypokalemic. Will replace K. Likely due to INOCENCIA currently improved. (5) Hyponatremia: PLAN: Improving. Likely secondary to dehydration. (6) Metabolic acidosis: PLAN: Secondary to INOCENCIA (7) Hyperphosphatemia associated with renal failure: PLAN: 11.8 on admission (was 2.7 on 03/24). Improved to 5.3. Likely due to INOCENCIA. Continue to monitor. PLAN: Plan VTE prophylaxis: LMWH. Charges/Coding Visit Charges Inpatient E&M: 30147 Subs Hosp L2
[2025-03-26 10:05] VITALS: BP 98/68; PULSE 54; RESP 16; TEMP 36.5; O2SAT 100
[2025-03-26] MEDS: Pantoprazole Sodium 40 MG in 0.9% Normal Saline (100mL MB+) 100 ML 330 MG IV ×2 (10:07→21:56)
[2025-03-26] MEDS: Potassium Chloride Oral Tablet 20 MEQ 40 MEQ PO (10:08)
[2025-03-26] MEDS: Enoxaparin 30 MG/0.3 ML Syringe SC (10:09)
[2025-03-26] MEDS: Piperacil/Tazobactam 3.375 GM in 0.9% Normal Saline (50mL MB+) 50 ML IV ×2 (10:34→22:20)
[2025-03-26 15:50] VITALS: BP 94/68; PULSE 56; RESP 16; TEMP 36.6; O2SAT 99
[2025-03-26 22:20] VITALS: BP 107/75; PULSE 62; RESP 16; TEMP 36.7; O2SAT 99
[2025-03-27] MEDS: 0.9% Normal Saline (1000mL) 1,000 ML 100 ML IV (01:30)
[2025-03-27 04:51] VITALS: BP 103/73; PULSE 52; RESP 14; TEMP 36.5; O2SAT 100
[2025-03-27 04:55] LABS: Absolute Neutrophil Count 3.8 X10^3/uL (2.0-7.7); Basophil# 0.03 X10^3/uL; Basophil% 0.6 % (0-1); Eosinophil# 0.13 X10^3/uL; Eosinophils% 2.6 % (0-5); Hematocrit 30.6 % (40-54); Mean Corp Hgb Conc 35.9 g/dL (32-36); Mean Corpuscular Hgb 33.4 pg (27.0-32.0); Mean Platelet Vol. 9.2 fl (6.2-12.0); Monocyte# 0.62 X10^3/uL; Monocyte% 12.5 % (0-10); NRBC Flagged by Analyzer 0 % (0-5); Neutrophil # 3.79 X10^3/uL (2.7-7.7); Neutrophil % 76.5 % (47-70); POSITIVE DIFFERENTIAL YES; Platelet Count 124 K/mm3 (150-450); RBC Distribution Width CV 13.8 % (11.6-14.6); RBC Distribution Width SD 47.4 fl (35.1-43.9); Red Blood Count 3.29 M/mm3 (4.6-6.2)
[2025-03-27 05:23] LABS: Cholesterol 119 mg/dL (<=200); High Density Lipoprotein 56 mg/dL; Low Density Lipoprotein Calc. 31 mg/dL; Triglycerides 161 mg/dL; Very Low Density Lipoprotein 32 mg/dL (5-40); cholesterol:hdl ratio screen 2.12
[2025-03-27 05:25] LABS: ALB/GLOB Ratio 0.9 RATIO (0.9-2.4); AST(SGOT) 16 U/L (<=37); Alanine Aminotransfer ALT/SGPT 9 U/L (<=46); Albumin, Serum 2.6 g/dL (3.5-5.0); Alkaline Phosphatase 115 U/L (40-129); Anion Gap 12 (5-15); BUN 53 mg/dL (4-19); BUN/Creat Ratio 18.7 RATIO (10-20); Calcium,Total 7.7 mg/dL (7.6-11.0); Carbon Dioxide 16.4 mmol/L (21.0-32.0); Chloride 105 mmol/L (98-108); Creatinine, Serum 2.84 mg/dL (0.70-1.20); EST Glomerular Filtration Rate 25 (>60); Estimated Creatinine Clearance 16.24 ml/min (50-250); Globulin 2.9 g/dL (2.2-4.2); Glucose 90 mg/dL (70-99); Potassium 2.9 mmol/L (3.3-5.1); Protein, Total 5.6 g/dL (5.9-8.4); Sodium Level 133 mmol/L (133-145); Total Bilirubin 0.31 mg/dL (0.00-1.30)
[2025-03-27 05:54] LABS: Phosphorus 3.5 mg/dL (2.7-4.5)
--- NOTE | 2025-03-27 08:41 | PN.HOSP_ITS ---
Reason for Visit Reason for Visit: Diagnoses Malignant neoplasm of rectum (03/25/25) Other disorders of phosphorus metabolism (03/25/25) Hypo-osmolality and hyponatremia (03/25/25) Acidosis, unspecified (03/25/25) Hyperkalemia (03/25/25) Acute pancreatitis without necrosis or infection, unspecified (03/25/25) Acute kidney failure, unspecified (03/25/25) Unspecified kidney failure (03/25/25) Nausea with vomiting, unspecified (03/25/25) Subjective Subjective leaking around ostomy. powder placed. Objective Data Objective Data Vital Signs: Vital Signs Temp Pulse Resp BP Pulse Ox O2 Del Method 36.5 C L 52 L 14 103/73 100 Room Air 03/27/25 04:51 03/27/25 04:51 03/27/25 04:51 03/27/25 04:51 03/27/25 04:51 03/27/25 08:00 Oxygen Delivery Method Room Air Weight: 41 kg Body Mass Index (BMI) 13.7 Intake & Output: Intake and Output for Last 24 Hours 03/25/25 03/26/25 03/27/25 23:59 23:59 23:59 Intake Total 3350.00 / 3350.00 2800 / 2800 1150 / 1150 Output Total 1765 / 2915 4425 / 4425 550 / 550 Balance 1585.00 / 435.00 -1625 / -1625 600 / 600 Medical Nutrition Assessment Dietitian: Malnutrition Criteria Met Start: 03/25/25 11:19 Freq: Status: Active Protocol: Document 03/25/25 11:19 SB (Rec: 03/25/25 11:20 SB [id number]) Nutrition Malnutrition Evidence of Yes Malnutrition Exists Malnutrition (severe Chronic ): Evidenced By Suboptimal Energy Intake (Severe),Weight Loss (Severe), Physical Changes (Severe) Clinical Problem Chronic Disease or Condition Related Malnutrition Etiology severe protein calorie malnutrition related to inadequate oral intake and increase energy expenditure due to rectal cancer Signs/Symptoms as evidenced by PO meeting <75% of estimated nutrition needs x >6 months, 25% unintentional weight loss x 3 months, severe muscle/fat wasting in orbital and zoroastrianism areas, BMI 13.6kg/m2. Status Active Problem Recommendation Dietitian Recommend advanced diet as tolerated to regular. Recommendations/ Will order 240ml ensure clear mixed ricketts TID with Changes meals. As diet is advanced recommend chocolate milkshake with dinner. Will monitor weight trends. If PO intake and weight continue to decline, recommend nutrition support. Lab / Micro Data 03/27/25 04:05 03/27/25 04:05 Labs: Laboratory Results - last 24 hr 03/25/25 00:59: Urine Color Straw, Urine Clarity Turbid, Urine pH 5.0, Ur Specific Brent 1.020, Urine Protein 100 H, Urine Glucose (UA) Normal, Urine Ketones Negative, Urine Occult Blood 250 H, Urine Nitrite Negative, Urine Bilirubin Negative, Urine Urobilinogen Normal, Ur Leukocyte Esterase 500 H, Urine RBC 25-50 SEEN, Urine WBC >100 SEEN, Ur Squamous Epith Cells 0 SEEN, Urine Bacteria 2+, Urine Mucus 0 SEEN 03/25/25 01:00: Urine Color Straw, Urine Clarity Turbid, Urine pH 5.0, Ur Specific Brent 1.020, Urine Protein 100 H, Urine Glucose (UA) Normal, Urine Ketones Negative, Urine Occult Blood 250 H, Urine Nitrite Negative, Urine Bilirubin Negative, Urine Urobilinogen Normal, Ur Leukocyte Esterase 500 H, Urine RBC 25-50 SEEN, Urine WBC >100 SEEN, Ur Squamous Epith Cells 0 SEEN, Urine Bacteria 2+, Urine Mucus 0 SEEN 03/27/25 04:05: WBC 5.0, RBC 3.29 L, Hgb 11.0 L, Hct 30.6 L, MCV 93.0, MCH 33.4 H, MCHC 35.9, RDW Std Deviation 47.4 H, RDW Coeff of Rosalee 13.8, Plt Count 124 L, MPV 9.2, Immature Gran % (Auto) 1.800 H, Neut % (Auto) 76.5 H, Lymph % (Auto) 6.0 L, Cassia % (Auto) 12.5 H, Eos % (Auto) 2.6, Baso % (Auto) 0.6, Absolute Neuts (auto) 3.8, Absolute Lymphs (auto) 0.30 L, Nucleated RBC % 0, Sodium 133, P otassium 2.9 L, Chloride 105, Carbon Dioxide 16.4 L, Anion Gap 12, BUN 53 H, C reatinine 2.84 H, Estim Creat Clear Calc 16.24 L, Est GFR (MDRD) Non-Af 25 L, BUN/Creatinine Ratio 18.7, Glucose 90, Calcium 7.7, Phosphorus 3.5, Total Bilirubin 0.31, AST 16, ALT 9, Alkaline Phosphatase 115, Total Protein 5.6 L, A lbumin 2.6 L, Globulin 2.9, Albumin/Globulin Ratio 0.9, Triglycerides 161, Cholesterol 119, LDL Cholesterol, Calc 31, VLDL Cholesterol 32, HDL Cholesterol 56, Cholesterol/HDL Ratio 2.12 Micro: Microbiology 03/25/25 00:59 Urine, Nephrostomy Urine Culture - Preliminary Presumptive E. coli 03/25/25 01:00 Urine, Clean Catch Urine Culture - Preliminary GNR lactose presser hand Gram negative leigh 03/25/25 03:00 Stool Enteric Bacteriology - Final 03/25/25 03:00 Stool Clostridioides difficile (PCR) - Final Physical Exam Const alert and no apparent distress HEENT head/scalp atraumatic and moist oral mucous membranes Resp normal respiratory effort and no retractions GI GI Narrative: right sided ostomy site with stoma protruding. irritated skin posteriorly. Assessment & Plan Assessment/Plan (1) Nausea & vomiting: PLAN: CT abdomen pelvis was limited but no evidence of bowel obstruction no acute pancreatitis. Diffuse bladder wall thickening. Supportive management (2) Acute pancreatitis: PLAN: Lipase trending down. Continue with IV fluids. CT did not show any evidence of a acute pancreatitis but lipase was very elevated. Supportive management at this time. On clear liquid diet TGs only 161. (3) Acute kidney injury: PLAN: improving. Likely prerenal as well as some ATN. Check kidney ultrasound. FENa 0.93%, consistent with prerenal azotemia. Patient has nephrostomy tubes. Urology and nephrology consulted. asked about IVF as outpt. Previously when he was on chemo, they would call, then go to the infusion center. That would require a physician authorizing that. As he is no longer receiving chemo, I told them that would likely need to be facilitated by his PCP. (4) Hyperkalemia: PLAN: Resolved, now hypokalemic. Will replace K. Likely due to INOCENCIA currently improved. (5) Hyponatremia: PLAN: Improving. Likely secondary to dehydration. (6) Metabolic acidosis: PLAN: Secondary to INOCENCIA (7) Hyperphosphatemia associated with renal failure: PLAN: resolved 11.8 on admission (was 2.7 on 03/24). Likely due to INOCENCIA. (8) Complication of ostomy: PLAN: irritated skin from leaking around ostomy. He and his utilize powder to dry the area. They feel comfortable managing this at home, and may leave it open to air. They are scheduled to follow up with Dr. Chandler this Friday. PLAN: Plan VTE prophylaxis: LMWH.
[2025-03-27] MEDS: Potassium Chloride Oral Tablet 20 MEQ 40 MEQ PO (09:44)
[2025-03-27] MEDS: Pantoprazole Sodium 40 MG in 0.9% Normal Saline (100mL MB+) 100 ML 330 MG IV (09:46)
[2025-03-27] MEDS: Enoxaparin 30 MG/0.3 ML Syringe SC (09:49)
[2025-03-27] MEDS: Piperacil/Tazobactam 3.375 GM in 0.9% Normal Saline (50mL MB+) 50 ML IV (10:27)
[2025-03-27 10:30] VITALS: BP 115/70; PULSE 58; RESP 18; TEMP 36.1; O2SAT 99
--- NOTE | 2025-03-27 12:07 | PCM.DC.SUM ---
Providers Date of Admission: 03/25/25 Primary Care Physician: Morelia Calvillo, WENDY Consultations 03/25/25 02:25 Consult: Nephrology Routine Consulting Provider: Tayler Johansen Reason for Consult: INOCENCIA EMERGENT Consult: No Notified: Yes Date Notified: 03/25/25 Time Notified: 02:28 Method of Notification: Answering Service Consult: Onc/Wound/lute packer or applier Routine Comment: Reason for Consult:: Ostomy assessment/care Consult: Urology Routine Consulting Provider: Hardik Kimbrough Reason for Consult: INOCENCIA, BL nephrostomy tubes EMERGENT Consult: No Notified: Yes Date Notified: 03/25/25 Time Notified: 01:32 Method of Notification: ED Physician Initiated Reason For Visit: N/V, INOCENCIA, ELECTROLYTE DISTRUBANCES, HYPOGLYCEMIA Diagnosis Discharge Diagnosis (1) Nausea & vomiting: Status: Acute Code(s): R11.2 - Nausea with vomiting, unspecified Plan: CT abdomen pelvis was limited but no evidence of bowel obstruction no acute pancreatitis. Diffuse bladder wall thickening. Supportive management (2) Acute pancreatitis: Status: Acute Code(s): K85.90 - Acute pancreatitis without necrosis or infection, unspecified Plan: Lipase trending down. Continue with IV fluids. CT did not show any evidence of a acute pancreatitis but lipase was very elevated. Supportive management at this time. On clear liquid diet TGs only 161. (3) Acute kidney injury: Status: Acute Code(s): N17.9 - Acute kidney failure, unspecified Plan: improving. Likely prerenal as well as some ATN. Check kidney ultrasound. FENa 0.93%, consistent with prerenal azotemia. Patient has nephrostomy tubes. Urology and nephrology consulted. asked about IVF as outpt. Previously when he was on chemo, they would call, then go to the infusion center. That would require a physician authorizing that. As he is no longer receiving chemo, I told them that would likely need to be facilitated by his PCP. (4) Hyperkalemia: Status: Acute Code(s): E87.5 - Hyperkalemia Plan: Resolved, now hypokalemic. Will replace K. Likely due to INOCENCIA currently improved. (5) Hyponatremia: Status: Acute Code(s): E87.1 - Hypo-osmolality and hyponatremia Plan: Improving. Likely secondary to dehydration. (6) Metabolic acidosis: Status: Acute Code(s): E87.20 - Acidosis, unspecified Plan: Secondary to INOCENCIA (7) Hyperphosphatemia associated with renal failure: Status: Acute Code(s): E83.39 - Other disorders of phosphorus metabolism; N19 - Unspecified kidney failure Plan: resolved 11.8 on admission (was 2.7 on 03/24). Likely due to INOCENCIA. (8) Complication of ostomy: Status: Acute Plan: irritated skin from leaking around ostomy. He and his utilize powder to dry the area. They feel comfortable managing this at home, and may leave it open to air. They are scheduled to follow up with Dr. Chandler this Friday. Plan VTE prophylaxis: LMWH. Medications at Discharge Home Medications ondansetron 8 mg disintegrating tablet 8 mg PO Q8H PRN nausea and vomiting #30 tabs 11/22/24 pantoprazole 40 mg tablet,delayed release 40 mg PO DAILY 30 days #30 tabs 03/01/25 potassium chloride 20 mEq tablet,extended release 20 meq PO DAILY 2 weeks #14 tabs 03/01/25 acetaminophen 325 mg tablet 1,000 mg (3.0769 x 325 mg) PO Q8H PRN PRN Fever, pain 1-07/29 #0 tabs 03/27/25 nitrofurantoin macrocrystal 100 mg capsule 100 mg PO BID 5 days #10 caps 03/27/25 Hospital Course Operations None Procedures None Summary of Care Provided Minutes Spent on Discharge: 32 Hospital Course: Patient presents with intractable nausea and vomiting. Sent here and is found to be have acute kidney injury, metabolic acidosis, hyperphosphatemia. Patient received IV fluids and overall his electrolytes improved. His course was rather uncomplicated. Patient did have issues regards to leaking around his ostomy and inability to get a good seal with the ostomy. This is actually not a new issue. Does have some irritated skin that makes it difficult for the ostomy to be adherent. They are utilizing powder to help with that seal. This been an ongoing issue and they are going to follow-up with Dr. Chandler soon. Medical Records Data Medical Nutrition Assessment Dietitian: Malnutrition Criteria Met Start: 03/25/25 11:19 Freq: Status: Active Protocol: Document 03/25/25 11:19 SB (Rec: 03/25/25 11:20 SB [id number]) Nutrition Malnutrition Evidence of Yes Malnutrition Exists Malnutrition (severe Chronic ): Evidenced By Suboptimal Energy Intake (Severe),Weight Loss (Severe), Physical Changes (Severe) Clinical Problem Chronic Disease or Condition Related Malnutrition Etiology severe protein calorie malnutrition related to inadequate oral intake and increase energy expenditure due to rectal cancer Signs/Symptoms as evidenced by PO meeting <75% of estimated nutrition needs x >6 months, 25% unintentional weight loss x 3 months, severe muscle/fat wasting in orbital and hinduism areas, BMI 13.6kg/m2. Status Active Problem Recommendation Dietitian Recommend advanced diet as tolerated to regular. Recommendations/ Will order 240ml ensure clear mixed ricketts TID with Changes meals. As diet is advanced recommend chocolate milkshake with dinner. Will monitor weight trends. If PO intake and weight continue to decline, recommend nutrition support. Weight / BMI Weight Weight: 41 kg Body Mass Index (BMI) 13.7 ABG / Lab / Microbiology Data 03/27/25 04:05 03/27/25 04:05 Laboratory: Laboratory Results - last 24 hr 03/25/25 00:59: Urine Color Straw, Urine Clarity Turbid, Urine pH 5.0, Ur Specific [place] 1.020, Urine Protein 100 H, Urine Glucose (UA) Normal, Urine Ketones Negative, Urine Occult Blood 250 H, Urine Nitrite Negative, Urine Bilirubin Negative, Urine Urobilinogen Normal, Ur Leukocyte Esterase 500 H, Urine RBC 25-50 SEEN, Urine WBC >100 SEEN, Ur Squamous Epith Cells 0 SEEN, Urine Bacteria 2+, Urine Mucus 0 SEEN 03/25/25 01:00: Urine Color Straw, Urine Clarity Turbid, Urine pH 5.0, Ur Specific [place] 1.020, Urine Protein 100 H, Urine Glucose (UA) Normal, Urine Ketones Negative, Urine Occult Blood 250 H, Urine Nitrite Negative, Urine Bilirubin Negative, Urine Urobilinogen Normal, Ur Leukocyte Esterase 500 H, Urine RBC 25-50 SEEN, Urine WBC >100 SEEN, Ur Squamous Epith Cells 0 SEEN, Urine Bacteria 2+, Urine Mucus 0 SEEN 03/27/25 04:05: WBC 5.0, RBC 3.29 L, Hgb 11.0 L, Hct 30.6 L, MCV 93.0, MCH 33.4 H, MCHC 35.9, RDW Std Deviation 47.4 H, RDW Coeff of Rosalee 13.8, Plt Count 124 L, MPV 9.2, Immature Gran % (Auto) 1.800 H, Neut % (Auto) 76.5 H, Lymph % (Auto) 6.0 L, [place] % (Auto) 12.5 H, Eos % (Auto) 2.6, Baso % (Auto) 0.6, Absolute Neuts (auto) 3.8, Absolute Lymphs (auto) 0.30 L, Nucleated RBC % 0, Sodium 133, Potassium 2.9 L, Chloride 105, Carbon Dioxide 16.4 L, Anion Gap 12, BUN 53 H, Creatinine 2.84 H, Estim Creat Clear Calc 16.24 L, Est GFR (MDRD) Non-Af 25 L, BUN/Creatinine Ratio 18.7, Glucose 90, Calcium 7.7, Phosphorus 3.5, Total Bilirubin 0.31, AST 16, ALT 9, Alkaline Phosphatase 115, Total Protein 5.6 L, Albumin 2.6 L, Globulin 2.9, Albumin/Globulin Ratio 0.9, Triglycerides 161, Cholesterol 119, LDL Cholesterol, Calc 31, VLDL Cholesterol 32, HDL Cholesterol 56, Cholesterol/HDL Ratio 2.12 Microbiology: Microbiology 03/25/25 00:59 Urine, Nephrostomy Urine Culture - Final Presumptive E. coli 03/25/25 01:00 Urine, Clean Catch Urine Culture - Preliminary Escherichia coli Gram negative leigh [facility] Poss Enterococcus sp 03/25/25 03:00 Stool Enteric Bacteriology - Final 03/25/25 03:00 Stool Clostridioides difficile (PCR) - Final D/C Instructions Discharge Diet: No restrictions DC O2, CPAP, BIPAP Needs Home O2 Discharge instructions: No Meaningful Use Info Meaningful Use Meaningful Use Diagnoses (Choose all that apply): None applicable Ischemic Stroke Statin Dosing Therapy Reference: STATIN DOSE THERAPY REFERENCE: * Patients > 75 years receive moderate or high dose statin therapy. * Patients 75 years or YOUNGER should receive HIGH intensity statin dose unless contraindicated. You will be required to document reason for non-treatment if statin daily dose does not meet guidelines. HIGH DOSE STATIN THERAPY DAILY Atorvastatin > than or = to 40 mg Rosuvastatin > than or = to 20 mg Amlodipine + Atorvastatin > than or = to 2.5/40 mg Ezetimibe + Simvastatin 10/80 mg Simvastatin 80mg Discharge Plan Admission Admit Date/Time: 03/25/25 01:29 Primary Reason for Your Visit: INOCENCIA Attending Provider: Scottie Michel Primary Care Provider: Morelia Calvillo NP Consulting Providers: Hardik Kimbrough; Tayler Johansen; Melva Roberts Discharge Orders/Prescriptions Prescriptions: New acetaminophen 325 mg Tablet 1,000 mg PO Q8H PRN PRN (Reason: Fever, pain 1-07/29) Qty: 0 0RF nitrofurantoin macrocrystal 100 mg capsule 100 mg PO BID 5 Days Qty: 10 0RF Rx Instructions: must administer with a meal/food Continued ondansetron 8 mg tablet,disintegrating 8 mg PO Q8H PRN (Reason: nausea and vomiting) Qty: 30 2RF pantoprazole 40 mg Tablet,Delayed Release (Dr/Ec) 40 mg PO DAILY 30 Days Qty: 30 0RF potassium chloride 20 mEq tablet extended release 20 meq PO DAILY 14 Days Qty: 14 0RF Referrals / Follow Up: Guy Ho MD [Med Staff - Active Staff] - 04/11/25 9:30 am Kunal Chandler MD [Med Staff - Active Staff] - 03/30/25 9:00 am Morelia Calvillo NP, [employer] [facility] [Primary Care Provider] - Within 2 Weeks Disposition Disposition (needs filled in before D/C Order can be placed): Home, Self Care Charges/Coding Visit Charges Inpatient E&M: 07835 Disch Hosp >30min
[2025-03-27] MEDS: 0.9% Saline Lock 10 ML Syringe IV (13:11)
== END 2025-03-27 14:05 | disposition home or self-care (01) | DRG 682 ==
LOC: ED 22:15 → PCU 03-25 01:41
PROVIDERS: Admitting Provider Family Medicine; Emergency Provider Emergency Medicine; PCP Nurse Practitioner Family
DX: N17.0 Acute kidney failure with tubular necrosis (principal); K85.90 Acute pancreatitis without necrosis or infection, unspecified; E43 Unspecified severe protein-calorie malnutrition; E87.20 Acidosis, unspecified; C20 Malignant neoplasm of rectum; E87.1 Hypo-osmolality and hyponatremia; Z68.1 Body mass index [BMI] 19.9 or less, adult; N39.0 Urinary tract infection, site not specified; E83.39 Other disorders of phosphorus metabolism; D63.0 Anemia in neoplastic disease; Z93.3 Colostomy status; E86.0 Dehydration; E87.5 Hyperkalemia; K21.9 Gastro-esophageal reflux disease without esophagitis; E87.6 Hypokalemia; N18.2 Chronic kidney disease, stage 2 (mild); E87.8 Other disorders of electrolyte and fluid balance, not elsewhere classified; E16.2 Hypoglycemia, unspecified; I95.9 Hypotension, unspecified; T83.032A Leakage of nephrostomy catheter, initial encounter; Z92.21 Personal history of antineoplastic chemotherapy; Z86.718 Personal history of other venous thrombosis and embolism; Z79.899 Other long term (current) drug therapy; Z93.6 Other artificial openings of urinary tract status
CPT/HCPCS: 36415; 36591; 74176; 76770; 80048; 80053; 80061; 80076; 81001; 82570; 82962; 83605; 83690; 83735; 84100; 84145; 84300; 85025; 87077; 87086; 87088; 87186; 87493; 87506; 93005; 97116; 97162; 97166; 97802; 99284; A4216

== ENCOUNTER → 2025-04-01 | Outpatient (CLI) | payer OTHER, SELFPAY ==
--- NOTE | 2025-04-01 11:12 | WOUNDNOTE ---
Was called by Dr Mendez's office a couple of days ago that patient's has not been able to get an appliance to stay in place and the peristomal skin was very irritated. Pt had his original surgery in [place] and then ended up with a bowel obstruction. pt then had surgery with Dr Mendez and now has an ileostomy. according to the operative note, the stoma was most likely created in the jejunum. stool has been very loose with high volume. called and talked with Opal. she had tried a few suggestions that this nurse had given her over the phone and then called this nurse again this am stating the skin continues to worsen. states patient had only taken the immodium a few times. asked that bring patient in for this nurse to assess and try to get appliance in place. pt extremely thin and frail. pt appears to have lost quite a bit of weight since last admission. pt had an ABD pad taped over the stoma. asking if patient can just get IV fluids while he's here. educated that patient would need an order for that from a physician. states they planned to just stop over and see if they could talk with Dr Mendez and then see if they could see Dr Ho since he has an appt next week. states I just thought maybe while we are already here maybe they can see us. Explained that they would most likely need an appt. Pt has not been eating well at all. states he feels hungry and then tries to eat and then does not feel hungry anymore. removed the ABD pad from the right lower abdomen. there was a moderate amount of green watery drainage noted. skin is very denuded and tender. gently cleansed skin with cool water. pat dry. applied stomadhesive powder followed by skin prep in 3 layers for crusting to assist in protecting the skin. this nurse then applied a protective hydrocolloid sheet and then placed the appliance over the protective sheet. d/t patient being so thin with abdomen being concave, it is difficult to get a flat surface. applied Coloplast barrier strips to each side to assist in keeping the seal. observed this nurse and feels she will be able to do the same thing for the next appliance change. used a 1 piece flat appliance for more flexibility. stoma remains well budded and moist. is oval in shape. pt tolerated well. pt and very appreciative of assistance. aware to call if further needs arise.
== END | disposition home or self-care (01) ==
LOC: ET 10:31
PROVIDERS: PCP Nurse Practitioner Family; Referring Provider Surgery; Visit Provider Surgery
DX: Z00.00 Encounter for general adult medical examination without abnormal findings (principal)

== ENCOUNTER 2025-04-06 13:53 | Inpatient (IN) | payer OTHER, SELFPAY ==
[2025-04-06] VITALS (9 sets, daily range): BP systolic 70–120; BP diastolic 59–76; PULSE 58–79; RESP 15–20; TEMP 36.2–37; O2SAT 96–100; BMI 13.4; BMI 13.0
--- NOTE | 2025-04-06 15:34 | EDS_ITS ---
HPI History of Present Illness Chief Complaint: Abn Labs Detail of Chief Complaint: Patient presents because of abnormal labs, problems with kidney Informant: patient and spouse/S.O. Onset/Context/Timing Onset: - (Labs were drawn at outside facility on Friday, April 04) Context: - (Unknown since patient does not know results) Timing: Continuous (Patient was admitted earlier this month for acute kidney f ailure.) Quality: Poor p.o. intake, decreased urine output and orthostatic lightheadedness Location: Multiple Current Severity: Unable to determine since patient does not know the results Maximum Severity: Creatinine was as high as 7.64 on March 25. On March 27 creatinine was 2.84. Worsened by: Uncertain Relieved by: Not applicable Associated Symptoms Associated Symptoms: Orthostatic lightheadedness, weight loss, poor p.o. intake Narrative Narrative: Patient is a 59-year-old male. He has history of metastatic cancer. He has bilateral nephrostomy tubes, ostomy due to total colectomy. He was admitted earlier this month for acute kidney injury due to nausea and vomiting. He presents today because of nausea and vomiting and abnormal labs. Patient denies fever, chills night sweats. Patient has double vision blurred vision loss of vision. Patient denies chest pain of any type, shortness of breath or difficulty breathing. He denies cough. He reports mild abdominal pain with nausea vomiting. He has had no diarrhea or black or maroon-colored fecal matter. He reports decreased urine output. Patient does endorse weight loss. Prior similar symptoms: Yes Recent Illness/Hospitalization: Yes [facility] Medical History Rectal cancer Nephrostomy present Iron deficiency anemia Local recurrence of rectal cancer Lesion of right lung Malignant neoplasm of rectum Hypokalemia UTI (urinary tract infection) CINV (chemotherapy-induced nausea and vomiting) Cloudy urine Bradycardia Prerenal azotemia Constipation Hypoalbuminemia Wears glasses Cancer DVT (deep venous thrombosis) Syncope Non-smoker Cataract (lens) fragments in eye following cataract surgery, bilateral Mandeep blood in stool Chronic diarrhea of unknown origin Change in bowel habit Colon cancer Home Medications ?Medication ?Instructions ?Recorded ?Last Taken ?Type ondansetron 8 mg disintegrating 8 mg PO Q8H PRN nausea and 11/22/24 Unknown Rx tablet vomiting #30 tabs pantoprazole 40 mg tablet,delayed 40 mg PO DAILY 30 da ys #30 tabs 03/01/25 Unknown Rx release potassium chloride 20 mEq 20 meq PO DAILY 2 weeks #14 tabs 03/01/25 Unknown Rx tablet,extended release acetaminophen 325 mg tablet 1,000 mg (3.0769 x 325 mg) PO Q8H 03/27/25 Unknown Rx PRN PRN Fever, pain 1-07/29 #0 tabs nitrofurantoin macrocrystal 100 mg 100 mg PO BID 5 day s #10 caps 03/27/25 Unknown Rx capsule Allergy/AdvReac Type Severity Reaction Status Date / Time No Known Allergies Allergy Verified 04/06/25 13:56 Family History Son Cancer Father Colon cancer Mother Heart disease Hypertension Heart failure Surgical History H/O insertion of nephrostomy tube H/O hernia repair S/P colonoscopy H/O colectomy History of creation of ostomy Social History household members: spouse Smoking Status: Never smoker alcohol intake: never substance use type: does not use ROS ROS ED Constitutional Constitutional ED: Reports weight loss; Denies chills, fever(s), subjective or sweats Eyes Eyes: Denies blurry vision or change in vision ENT ENT ED: Denies ear pain, rhinorrhea or sore throat Cardiovascular Cardiovascular: Denies chest pain or palpitations Respiratory/Chest Respiratory/Chest: Denies cough, dyspnea or dyspnea on exertion Gastrointestinal Gastrointestinal: Reports abdominal pain, nausea and vomiting; Denies constipation, diarrhea or melena Genitourinary Genitourinary ED: Denies dysuria, hematuria or urinary frequency Musculoskeletal Musculoskeletal: Denies arthralgias, back pain or myalgias Integumentary Denies rash Neurologic Neurologic: Reports weakness Psychiatric Psychiatric: Reports depression; Denies anxiety Hematologic/Lymphatic Hematologic/Lymphatic: Reports systems reviewed and no addt'l complaints, except as documented EXAM Physical Exam Const Vital Signs: 04/06/25 13:54 04/06/25 14:04 04/06/25 14:32 Temperature 98.6 F Temperature Source Oral Pulse Rate 68 Pulse Rate [Lying] 61 Pulse Rate [Sitting (for 1 minute prior to obtaining)] 60 Pulse Rate [Standing (for 1 minute prior to obtaining)] 79 Respiratory Rate 20 H Respiratory Effort Normal Non-Labored Respiratory Pattern Normal Blood Pressure 89/68 L Blood Pressure [Lying] 95/74 Blood Pressure [Sitting (for 1 minute prior to obtaining)] 91/74 Blood Pressure [Standing (for 1 minute prior to obtaining)] 70/60 L Blood Pressure Mean 75 Blood Pressure Mean [Lying] 81 Blood Pressure Mean [Sitting (for 1 minute prior to obtaining)] 79 Blood Pressure Mean [Standing (for 1 minute prior to obtaining)] 63 Pulse Ox 96 Oxygen Delivery Method Room Air 04/06/25 15:15 04/06/25 16:00 04/06/25 17:00 Temperature Temperature Source Pulse Rate 62 61 58 L Pulse Rate [Lying] Pulse Rate [Sitting (for 1 minute prior to obtaining)] Pulse Rate [Standing (for 1 minute prior to obtaining)] Respiratory Rate 15 17 17 Respiratory Effort Respiratory Pattern Blood Pressure 96/74 90/59 L 90/66 Blood Pressure [Lying] Blood Pressure [Sitting (for 1 minute prior to obtaining)] Blood Pressure [Standing (for 1 minute prior to obtaining)] Blood Pressure Mean 81 70 75 Blood Pressure Mean [Lying] Blood Pressure Mean [Sitting (for 1 minute prior to obtaining)] Blood Pressure Mean [Standing (for 1 minute prior to obtaining)] Pulse Ox 98 96 98 Oxygen Delivery Method Room Air 04/06/25 17:03 Temperature 97.8 F Temperature Source Pulse Rate 58 L Pulse Rate [Lying] Pulse Rate [Sitting (for 1 minute prior to obtaining)] Pulse Rate [Standing (for 1 minute prior to obtaining)] Respiratory Rate 17 Respiratory Effort Respiratory Pattern Blood Pressure 90/66 Blood Pressure [Lying] Blood Pressure [Sitting (for 1 minute prior to obtaining)] Blood Pressure [Standing (for 1 minute prior to obtaining)] Blood Pressure Mean 74 Blood Pressure Mean [Lying] Blood Pressure Mean [Sitting (for 1 minute prior to obtaining)] Blood Pressure Mean [Standing (for 1 minute prior to obtaining)] Pulse Ox 98 Oxygen Delivery Method Positive well developed and cachectic Constitutional Narrative: Renetta shins vitals are remarkable hypotension. He does not know what his baseline blood pressure is. Based on review of prior records his blood pressure varied significantly. General Appearance ED: well developed, cachectic and NAD; Negative for cyanotic, diaphoretic or pallor Nutritional Appearance: cachectic HEENT Reports dry mucous membranes HEENT Narrative: Head is atraumatic and normocephalic. Ears normal. Nares patent. Posterior pharynx is normal. Mouth ED: Yes dry mucous membranes Mouth: dry mucous membranes Eyes EOMs intact bilaterally General Eye ED: Negative for pale conjunctiva or scleral icterus Neck no lymphadenopathy, supple and no JVD Chest Wall Negative for inspection of chest normal Chest Narrative: Patient is cachectic and able to see all of his ribs. Resp normal respiratory effort and clear to auscultation bilaterally Cardio regular rate, regular rhythm, S1 normal heart sound, S2 normal heart sound and no murmurs GI GI Narrative: Abdomen is scaphoid. There is no tenderness or guarding. Bowel sounds are diminished. Narrative: Patient has bilateral nephrostomy tubes. They are draining. Extremity normal to inspection General Extremety ED: Negative for edema or tenderness General Extremity: Negative for edema Neuro oriented x3 Sensorium / Orientation: alert Psych Mood & Affect: depressed Skin no rashes or lesions noted, no wounds and No skin turgor normal General Skin Exam: Negative for elasticity normal, jaundice or pallor MDM MDM MDM Narrative Medical decision making narrative: Patient appears ill and dehydrated. Patient received a 500 cc bolus since he only weighs 39 kg. Spoke with Ady santoro on-call for the [facility]. She informing that he canceled all of his appointments at [facility]. Will need to speak with him regarding this. She will attempt to get the results of the labs performed on Friday. Will compare to prior and today's labs. Patient is hypotensive. He is lower than he was on prior admission. Will obtain electrolyte panel to assess renal function, CO2 anion gap and electrolytes. CBC to assess white count differential and compare to prior H&H. History & Record Review Additional record(s) reviewed:: Prior outpatient record (Documented HPI narrative), Prior ED visit and Prior labs Lab Data Attestation: I reviewed the patient's lab results. Lab results narrative: Hemoglobin is elevated from baseline consistent with hemoconcentration/dehydration. BUN and creatinine are 75 and 3.33 with a BUN/creatinine ratio approximately 22.5-1. Patient's renal function is worse than time of discharge earlier this month. Back to the patient's hypotensive we will contact hospitalist for admission. Labs: Laboratory Results - last 24 hr 04/06/25 15:27 WBC 6.0 RBC 3.91 L Hgb 13.3 Hct 36.0 L MCV 92.1 MCH 34.0 H MCHC 36.9 H RDW Std Deviation 46.1 H RDW Coeff of Rosalee 13.6 Plt Count 135 L MPV 8.8 Immature Gran % (Auto) 0.800 Neut % (Auto) 80.3 H Lymph % (Auto) 7.4 L [place] % (Auto) 10.0 Eos % (Auto) 1.0 Baso % (Auto) 0.5 Absolute Neuts (auto) 4.8 Absolute Lymphs (auto) 0.44 L Nucleated RBC % 0 Sodium 124 L Potassium 3.9 Chloride 91 L Carbon Dioxide 18.5 L Anion Gap 15 BUN 75 H Creatinine 3.33 H Estim Creat Clear Calc 13.49 L Est GFR (MDRD) Non-Af 20 L BUN/Creatinine Ratio 22.4 H Glucose 107 H Calcium 8.4 Management Discussion w/another healthcare provider: Hospitalist (Spoke with Dr. Helton. He request to see patient prior to making final disposition. Patient will be a full admit MedSurg. Will consult hospice.) and [employer] (Barb santoro on [facility].) Treatment and Re-Evaluation :: Patient was reassessed at 1651. Patient is hypotensive again. Will order 1 L of normal saline. informed he did not go to his appointment at [facility] because he did not feel well the week before with profuse diarrhea. Discharge Plan Dx/Rx/DC Orders Clinical Impression: Hypotension due to hypovolemia, Poor appetite, Complication of ostomy, Malignant neoplasm of rectum, Acute on chronic kidney failure, Acute prerenal azotemia, Acute hyponatremia, Acidosis, metabolic, Unintentional weight loss, DNR (do not resuscitate) discussion Disposition Disposition: [facility]
[2025-04-06 15:40] LABS: Absolute Lymphocyte Count 0.44 X10^3/uL (0.83-4.51); Absolute Neutrophil Count 4.8 X10^3/uL (2.0-7.7); Basophil# 0.03 X10^3/uL; Basophil% 0.5 % (0-1); Eosinophil# 0.06 X10^3/uL; Hemoglobin 13.3 g/dL (13.0-16.5); Lymphocyte # 0.44 X10^3/ul (0.83-4.51); Lymphocyte % 7.4 % (19-41); Mean Corp Hgb Conc 36.9 g/dL (32-36); Mean Corpuscular Volume 92.1 fL (80-94); Mean Platelet Vol. 8.8 fl (6.2-12.0); NRBC Flagged by Analyzer 0 % (0-5); Neutrophil % 80.3 % (47-70); POSITIVE DIFFERENTIAL YES; Platelet Count 135 K/mm3 (150-450); RBC Distribution Width CV 13.6 % (11.6-14.6); RBC Distribution Width SD 46.1 fl (35.1-43.9); Red Blood Count 3.91 M/mm3 (4.6-6.2)
[2025-04-06] MEDS: 0.9% Normal Saline (500mL Bag) 500 ML 1000 ML IV (15:49)
[2025-04-06 15:57] LABS: Anion Gap 15 (5-15); BUN 75 mg/dL (4-19); BUN/Creat Ratio 22.4 RATIO (10-20); Calcium,Total 8.4 mg/dL (7.6-11.0); Carbon Dioxide 18.5 mmol/L (21.0-32.0); Chloride 91 mmol/L (98-108); Creatinine, Serum 3.33 mg/dL (0.70-1.20); EST Glomerular Filtration Rate 20 (>60); Estimated Creatinine Clearance 13.49 ml/min (50-250); Glucose 107 mg/dL (70-99); Potassium 3.9 mmol/L (3.3-5.1); Sodium Level 124 mmol/L (133-145)
--- NOTE | 2025-04-06 16:03 | HP.PCM.HOS_ITS ---
HPI - General HPI Narrative CARLOS DUMONT, is a 59 M who presents PFSH Medical History Rectal cancer Nephrostomy present Iron deficiency anemia Local recurrence of rectal cancer Lesion of right lung Malignant neoplasm of rectum Hypokalemia UTI (urinary tract infection) CINV (chemotherapy-induced nausea and vomiting) Cloudy urine Bradycardia Prerenal azotemia Constipation Hypoalbuminemia Wears glasses Cancer DVT (deep venous thrombosis) Syncope Non-smoker Cataract (lens) fragments in eye following cataract surgery, bilateral Mandeep blood in stool Chronic diarrhea of unknown origin Change in bowel habit Colon cancer Home Medications ?Medication ?Instructions ?Recorded ?Last Taken ?Type ondansetron 8 mg disintegrating 8 mg PO Q8H PRN nausea and 11/22/24 Unknown Rx tablet vomiting #30 tabs pantoprazole 40 mg tablet,delayed 40 mg PO DAILY 30 da ys #30 tabs 03/01/25 Unknown Rx release potassium chloride 20 mEq 20 meq PO DAILY 2 weeks #14 tabs 03/01/25 Unknown Rx tablet,extended release acetaminophen 325 mg tablet 1,000 mg (3.0769 x 325 mg) PO Q8H 03/27/25 Unknown Rx PRN PRN Fever, pain 1-07/29 #0 tabs nitrofurantoin macrocrystal 100 mg 100 mg PO BID 5 day s #10 caps 03/27/25 Unknown Rx capsule Allergy/AdvReac Type Severity Reaction Status Date / Time No Known Allergies Allergy Verified 04/06/25 13:56 Family History Son Cancer Father Colon cancer Mother Heart disease Hypertension Heart failure Surgical History H/O insertion of nephrostomy tube H/O hernia repair S/P colonoscopy H/O colectomy History of creation of ostomy Social History household members: spouse Smoking Status: Never smoker alcohol intake: never substance use type: does not use Vital Signs Vital Signs Vital Signs: 04/06/25 13:54 04/06/25 14:04 04/06/25 14:32 Temperature 98.6 F Temperature Source Oral Pulse Rate 68 Pulse Rate [Lying] 61 Pulse Rate [Sitting (for 1 minute prior to obtaining)] 60 Pulse Rate [Standing (for 1 minute prior to obtaining)] 79 Respiratory Rate 20 H Respiratory Effort Normal Non-Labored Respiratory Pattern Normal Blood Pressure 89/68 L Blood Pressure [Lying] 95/74 Blood Pressure [Sitting (for 1 minute prior to obtaining)] 91/74 Blood Pressure [Standing (for 1 minute prior to obtaining)] 70/60 L Blood Pressure Mean 75 Blood Pressure Mean [Lying] 81 Blood Pressure Mean [Sitting (for 1 minute prior to obtaining)] 79 Blood Pressure Mean [Standing (for 1 minute prior to obtaining)] 63 Pulse Ox 96 Oxygen Delivery Method Room Air 04/06/25 15:15 04/06/25 16:00 Temperature Temperature Source Pulse Rate 62 61 Pulse Rate [Lying] Pulse Rate [Sitting (for 1 minute prior to obtaining)] Pulse Rate [Standing (for 1 minute prior to obtaining)] Respiratory Rate 15 17 Respiratory Effort Respiratory Pattern Blood Pressure 96/74 90/59 L Blood Pressure [Lying] Blood Pressure [Sitting (for 1 minute prior to obtaining)] Blood Pressure [Standing (for 1 minute prior to obtaining)] Blood Pressure Mean 81 70 Blood Pressure Mean [Lying] Blood Pressure Mean [Sitting (for 1 minute prior to obtaining)] Blood Pressure Mean [Standing (for 1 minute prior to obtaining)] Pulse Ox 98 96 Oxygen Delivery Method Room Air Weight Weight: 39.916 kg Body Mass Index (BMI) 13.4 Results Lab / Micro Data 04/06/25 15:27 04/06/25 15:27 Labs: Laboratory Results - last 24 hr 04/06/25 15:27: Sodium 124 L, Potassium 3.9, Chloride 91 L, Carbon Dioxide 18.5 L, Anion Gap 15, BUN 75 H, Creatinine 3.33 H, Estim Creat Clear Calc 13.49 L, E st GFR (MDRD) Non-Af 20 L, BUN/Creatinine Ratio 22.4 H, Glucose 107 H, Calcium 8.4
[2025-04-06] MEDS: 0.9% Normal Saline (1000mL) 1,000 ML 1000 ML IV (17:13)
--- NOTE | 2025-04-06 17:31 | PCM.HP.STD ---
HPI - General General Date of Admission: 04/06/25 Date of Service: 04/06/25 Chief Complaint: Persistent nausea with poor p.o. intake and dehydration HPI Narrative CARLOS DUMONT, is a 59 M who presented to [facility] ED on 04/06/2025 with persistent nausea with poor p.o. intake and dehydration. Patient has complex medical history. History is significant for rectal cancer and patient follows with Dr. Ho, see his office note from 02/14/25 for further details. In short, patient was diagnosed with rectal cancer in February 2024. He went to [place] and had abdominal perineal resection of the cancer with colostomy placement in March. That was complicated by large intra-abdominal abscess diagnosed in April; this was managed at last date with drain placement and IV antibiotics. Since then he is followed with Dr. Ho here. He had radiation therapy done in June and July 2024. He has been on chemotherapy since June as well with last dose in January. Notably patient also had bilateral nephrostomy tubes placed at [facility] in September 2024 for bilateral hydronephrosis. From Dr. Ho's note, plan was for patient to be finished with chemotherapy for now. Imaging at that time showed that the cancer appeared stable. Unfortunately, he was hospitalized here in early February for a small bowel obstruction with diverting loop jejunostomy placement. He was discharged home on 03/02 but then presented again on 03/25 with intractable nausea and vomiting. Was found to have acute renal failure with creatinine 9.18. Nephrology followed and patient did have significant improvement during the hospitalization with IV fluid resuscitation and creatinine was 2.84 on discharge on 03/27. Since returning home, patient has continued to have poor appetite with nausea and intermittent vomiting. Has had worsening generalized weakness as well. Notably in the ED today's BMI is 13. On arrival today his blood pressure was in the high 80s over 60s. Labs notable for creatinine 3.3, sodium 124, chloride 91, BUN 75. Most consistent with dehydration so patient was given IV fluids in the ED with slow improvement in his blood pressure up to the 100s over 70s. However given his lab abnormalities and overall failure to thrive, hospitalist was contacted for admission. I saw the patient at bedside in the ED, present. Patient was mildly fatigued appearing and cachectic appearing. He was mentally sharp and answer questions appropriately for me. Stated that he generally feels fatigued and has had minimal appetite over the past several days. He has not wanted to eat or drink much at all. He reports still being able to do things at home for himself though he has felt progressively weaker. He denies any fevers or chills currently. Denies any increase in ostomy output over the past week or so. Importantly, on discussion with patient and his I noted that unfortunately patient has had a significant decline in his functional status given the extensive medical issues he has had. 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 Because of this, I noted that it would be reasonable for them to consider palliative care or hospice at this time. They were agreeable to this and hospice care consult will be placed. Also discussed patient's CODE STATUS and he was agreeable to DNR CCA DNI. [facility] Medical History Rectal cancer Nephrostomy present Iron deficiency anemia Local recurrence of rectal cancer Lesion of right lung Malignant neoplasm of rectum Hypokalemia UTI (urinary tract infection) CINV (chemotherapy-induced nausea and vomiting) Cloudy urine Bradycardia Prerenal azotemia Constipation Hypoalbuminemia Wears glasses Cancer DVT (deep venous thrombosis) Syncope Non-smoker Cataract (lens) fragments in eye following cataract surgery, bilateral Mandeep blood in stool Chronic diarrhea of unknown origin Change in bowel habit Colon cancer Home Medications ?Medication ?Instructions ?Recorded ?Last Taken ?Type ondansetron 8 mg disintegrating 8 mg PO Q8H PRN nausea and 11/22/24 Unknown Rx tablet vomiting #30 tabs pantoprazole 40 mg tablet,delayed 40 mg PO DAILY 30 days #30 tabs 03/01/25 Unknown Rx release potassium chloride 20 mEq 20 meq PO DAILY 2 weeks #14 tabs 03/01/25 Unknown Rx tablet,extended release acetaminophen 325 mg tablet 1,000 mg (3.0769 x 325 mg) PO Q8H 03/27/25 Unknown Rx PRN PRN Fever, pain 1-07/29 #0 tabs nitrofurantoin macrocrystal 100 mg 100 mg PO BID 5 days #10 caps 03/27/25 Unknown Rx capsule Allergy/AdvReac Type Severity Reaction Status Date / Time No Known Allergies Allergy Verified 04/06/25 13:56 Family History Son Cancer Father Colon cancer Mother Heart disease Hypertension Heart failure Surgical History H/O insertion of nephrostomy tube H/O hernia repair S/P colonoscopy H/O colectomy History of creation of ostomy Social History household members: spouse Smoking Status: Never smoker alcohol intake: never substance use type: does not use ROS Constitutional Constitutional: Reports fatigue, malaise and weakness; Denies chills or fever(s) Eyes Eyes: Denies change in vision Cardiovascular Cardiovascular: Denies chest pain Respiratory/Chest Respiratory/Chest: Denies cough or shortness of breath at rest Gastrointestinal Gastrointestinal: Reports nausea and vomiting; Denies abdominal pain, constipation or diarrhea Genitourinary Genitourinary: Denies dysuria Musculoskeletal Musculoskeletal: Denies arthralgias or myalgias Neurologic Neurologic: Denies dizziness, focal weakness or headache(s) Vital Signs Vital Signs Vital Signs: 04/06/25 13:54 04/06/25 14:04 04/06/25 14:32 Temperature 98.6 F Temperature Source Oral Pulse Rate 68 Pulse Rate [Lying] 61 Pulse Rate [Sitting (for 1 minute prior to obtaining)] 60 Pulse Rate [Standing (for 1 minute prior to obtaining)] 79 Respiratory Rate 20 H Respiratory Effort Normal Non-Labored Respiratory Pattern Normal Blood Pressure 89/68 L Blood Pressure [Lying] 95/74 Blood Pressure [Sitting (for 1 minute prior to obtaining)] 91/74 Blood Pressure [Standing (for 1 minute prior to obtaining)] 70/60 L Blood Pressure Mean 75 Blood Pressure Mean [Lying] 81 Blood Pressure Mean [Sitting (for 1 minute prior to obtaining)] 79 Blood Pressure Mean [Standing (for 1 minute prior to obtaining)] 63 Pulse Ox 96 Oxygen Delivery Method Room Air 04/06/25 15:15 04/06/25 16:00 04/06/25 17:00 Temperature Temperature Source Pulse Rate 62 61 58 L Pulse Rate [Lying] Pulse Rate [Sitting (for 1 minute prior to obtaining)] Pulse Rate [Standing (for 1 minute prior to obtaining)] Respiratory Rate 15 17 17 Respiratory Effort Respiratory Pattern Blood Pressure 96/74 90/59 L 90/66 Blood Pressure [Lying] Blood Pressure [Sitting (for 1 minute prior to obtaining)] Blood Pressure [Standing (for 1 minute prior to obtaining)] Blood Pressure Mean 81 70 75 Blood Pressure Mean [Lying] Blood Pressure Mean [Sitting (for 1 minute prior to obtaining)] Blood Pressure Mean [Standing (for 1 minute prior to obtaining)] Pulse Ox 98 96 98 Oxygen Delivery Method Room Air 04/06/25 17:03 Temperature 97.8 F Temperature Source Pulse Rate 58 L Pulse Rate [Lying] Pulse Rate [Sitting (for 1 minute prior to obtaining)] Pulse Rate [Standing (for 1 minute prior to obtaining)] Respiratory Rate 17 Respiratory Effort Respiratory Pattern Blood Pressure 90/66 Blood Pressure [Lying] Blood Pressure [Sitting (for 1 minute prior to obtaining)] Blood Pressure [Standing (for 1 minute prior to obtaining)] Blood Pressure Mean 74 Blood Pressure Mean [Lying] Blood Pressure Mean [Sitting (for 1 minute prior to obtaining)] Blood Pressure Mean [Standing (for 1 minute prior to obtaining)] Pulse Ox 98 Oxygen Delivery Method Weight Weight: 39.916 kg Body Mass Index (BMI) 13.4 Physical Exam Const alert, oriented x3 and no apparent distress Constitutional Narrative: Upper middle-aged male, fatigued and very cachectic and weak appearing, unkempt appearing, otherwise laying back comfortably in bed, answering questions appropriately, in no acute distress. General Appearance: cooperative HEENT normocephalic, head/scalp atraumatic, hearing grossly normal bilaterally and nasal mucous membranes and turbinates normal HEENT Narrative: Dry mucous membranes. Eyes PERRL, EOMs intact bilaterally and conjunctivae normal Neck full ROM Chest inspection of chest normal Resp normal respiratory effort, normal air movement, no use of accessory muscles and clear to auscultation bilaterally Cardio regular rate, regular rhythm, no murmurs and peripheral pulses 2+ throughout GI normal to inspection, nondistended, normoactive bowel sounds, soft to palpation, non-tender and non-distended GI Narrative: Ostomy noted. Back/Spine normal ROM Extremity normal to inspection and no pedal edema Skin no rashes or lesions noted Psych mental status grossly normal Results Lab / Micro Data 04/06/25 15:27 04/06/25 15:27 Labs: Laboratory Results - last 24 hr 04/06/25 15:27: WBC 6.0, RBC 3.91 L, Hgb 13.3, Hct 36.0 L, MCV 92.1, MCH 34.0 H, MCHC 36.9 H, RDW Std Deviation 46.1 H, RDW Coeff of Rosalee 13.6, Plt Count 135 L, MPV 8.8, Immature Gran % (Auto) 0.800, Neut % (Auto) 80.3 H, Lymph % (Auto) 7.4 L, [place] % (Auto) 10.0, Eos % (Auto) 1.0, Baso % (Auto) 0.5, Absolute Neuts (auto) 4.8, Absolute Lymphs (auto) 0.44 L, Nucleated RBC % 0, Sodium 124 L, Potassium 3.9, Chloride 91 L, Carbon Dioxide 18.5 L, Anion Gap 15, BUN 75 H, Creatinine 3.33 H, Estim Creat Clear Calc 13.49 L, Est GFR (MDRD) Non-Af 20 L, BUN/Creatinine Ratio 22.4 H, Glucose 107 H, Calcium 8.4 Assessment & Plan Assessment/Plan (1) Adult failure to thrive: PLAN: Plan Patient is a 59-year-old male who presented to [facility] ED on 04/06/2025 with persistent nausea with poor p.o. intake and dehydration. 1. Adult failure to thrive with severe malnutrition ? Admit under inpatient status to [facility]. PT/OT/case management consulted. Patient with BMI 13 on admit and very complicated past medical history, see HPI for further details. Unfortunately has had adult failure to thrive with worsening weakness and now persistent creatinine elevation concerning for development of advanced chronic kidney disease. Given all of these factors, patient was agreeable to hospice care. Hospice consult placed. 2. Persistent creatinine elevation with metabolic acidosis in setting of recent severe INOCENCIA with suspected uremia ? Creatinine 3.33, BUN 75, bicarb 18 on admit. Had a recent hospitalization 2 weeks ago for severe prerenal INOCENCIA. Presented with creatinine 9.1 at that time which improved to 2.8 by discharge on 03/27. Patient however has had persistent nausea with intermittent vomiting and poor p.o. intake since that time that may be secondary to uremia. Given IV fluid resuscitation in the ED, monitor a.m. BMP and urine output. No acute dialysis needs but if patient does not want to pursue hospice care, recommend nephrology consult for further assistance with management. 3. History of rectal cancer s/p surgery and chemoradiation therapy recently complicated by small bowel obstruction s/p diverting loop jejunostomy ? See HPI for further details. Has ostomy in place with normal-appearing output at this time. No current inpatient needs for this. 4. Hyponatremia ? Sodium 124, chloride 91 on admit. Presume secondary to acute dehydration. Given IV normal saline in the ED, follow-up a.m. sodium level. 5. GERD ? Continue home PPI. DVT prophylaxis: Heparin subcu CODE STATUS: DNR CCA, DNI Expected disposition: TBD Total clinical time spent by myself addressing the patient's medical issues, reviewing all the data, and collaborating with patient's care team: 75 minutes. Charges/Coding Visit Charges Inpatient E&M: 95532 Init Hosp L3
[2025-04-06] MEDS: 0.9% Saline Lock 10 ML Syringe IV (19:03)
[2025-04-06] MEDS: Heparin Injection (Vial) 5,000 UNIT/ML VIAL 5000 UNIT SC (22:19)
[2025-04-07 03:37] VITALS: BP 96/60; PULSE 60; RESP 15; TEMP 36.4; O2SAT 99
[2025-04-07 07:41] LABS: Hematocrit 35.4 % (40-54); Hemoglobin 12.7 g/dL (13.0-16.5); Mean Corp Hgb Conc 35.9 g/dL (32-36); Mean Corpuscular Hgb 33.3 pg (27.0-32.0); Mean Corpuscular Volume 92.9 fL (80-94); Mean Platelet Vol. 9.1 fl (6.2-12.0); Platelet Count 107 K/mm3 (150-450); RBC Distribution Width CV 13.7 % (11.6-14.6); RBC Distribution Width SD 46.8 fl (35.1-43.9); Red Blood Count 3.81 M/mm3 (4.6-6.2); White Blood Count 5.4 K/mm3 (4.4-11.0)
[2025-04-07 08:04] LABS: Anion Gap 14 (5-15); BUN 66 mg/dL (4-19); BUN/Creat Ratio 25.3 RATIO (10-20); Calcium,Total 8.7 mg/dL (7.6-11.0); Carbon Dioxide 20.3 mmol/L (21.0-32.0); Chloride 96 mmol/L (98-108); Creatinine, Serum 2.62 mg/dL (0.70-1.20); EST Glomerular Filtration Rate 27 (>60); Estimated Creatinine Clearance 16.67 ml/min (50-250); Glucose 96 mg/dL (70-99); Potassium 3.4 mmol/L (3.3-5.1); Sodium Level 130 mmol/L (133-145)
[2025-04-07 09:02] VITALS: BP 101/66; PULSE 61; RESP 14; TEMP 36.6; O2SAT 99
--- NOTE | 2025-04-07 09:18 | PN.HOSP_ITS ---
Reason for Visit Reason for Visit: Diagnoses Adult failure to thrive (04/06/25) Objective Data Objective Data Vital Signs: Vital Signs Temp Pulse Resp BP Pulse Ox O2 Del Method 97.8 F 61 14 101/66 99 Room Air 04/07/25 09:02 04/07/25 09:02 04/07/25 09:02 04/07/25 09:02 04/07/25 09:02 04/07/25 09:02 Oxygen Delivery Method Room Air Weight: 85 lb 9.6 oz Body Mass Index (BMI) 13.0 Intake & Output: Intake and Output for Last 24 Hours 04/05/25 04/06/25 04/07/25 23:59 23:59 23:59 Intake Total 1500 / 1500 Output Total 400 / 400 Balance 1500 / 1500 -400 / -400 Lab / Micro Data 04/07/25 06:13 04/07/25 06:13 Labs: Laboratory Results - last 24 hr 04/06/25 15:27: WBC 6.0, RBC 3.91 L, Hgb 13.3, Hct 36.0 L, MCV 92.1, MCH 34.0 H, MCHC 36.9 H, RDW Std Deviation 46.1 H, RDW Coeff of Rosalee 13.6, Plt Count 135 L, MPV 8.8, Immature Gran % (Auto) 0.800, Neut % (Auto) 80.3 H, Lymph % (Auto) 7.4 L, [place] % (Auto) 10.0, Eos % (Auto) 1.0, Baso % (Auto) 0.5, Absolute Neuts (auto) 4.8, Absolute Lymphs (auto) 0.44 L, Nucleated RBC % 0, Sodium 124 L, Potassium 3.9, Chloride 91 L, Carbon Dioxide 18.5 L, Anion Gap 15, BUN 75 H, C reatinine 3.33 H, Estim Creat Clear Calc 13.49 L, Est GFR (MDRD) Non-Af 20 L, B UN/Creatinine Ratio 22.4 H, Glucose 107 H, Calcium 8.4 04/07/25 06:13: WBC 5.4, RBC 3.81 L, Hgb 12.7 L, Hct 35.4 L, MCV 92.9, MCH 33.3 H, MCHC 35.9, RDW Std Deviation 46.8 H, RDW Coeff of Rosalee 13.7, Plt Count 107 L, MPV 9.1, Sodium 130 L, Potassium 3.4, Chloride 96 L, Carbon Dioxide 20.3 L, Anion Gap 14, BUN 66 H, Creatinine 2.62 H, Estim Creat Clear Calc 16.67 L, Est GFR (MDRD) Non-Af 27 L, BUN/Creatinine Ratio 25.3 H, Glucose 96, Calcium 8.7 Physical Exam Narrative Ostomy Assessment & Plan Assessment/Plan (1) Adult failure to thrive: PLAN: Plan Patient is a 59-year-old male who presented to [facility] ED on 04/06/2025 with persistent nausea with poor p.o. intake and dehydration. His doctor told him to go to ED because of kidney dysfunction. 1. Adult failure to thrive with severe malnutrition ? Admit under inpatient status to [facility]. PT/OT/case management consulted. Patient with BMI 13 on admit and very complicated past medical history, see HPI for further details. Unfortunately has had adult failure to thrive with worsening weakness and now persistent creatinine elevation concerning for development of advanced chronic kidney disease. Given all of these factors, patient was agreeable to hospice care. Hospice consult placed. 2. Persistent creatinine elevation with metabolic acidosis in setting of recent severe INOCENCIA with suspected uremia ? Creatinine 3.33, BUN 75, bicarb 18 on admit. Had a recent hospitalization 2 weeks ago for severe prerenal INOCENCIA. Presented with creatinine 9.1 at that time which improved to 2.8 by discharge on 03/27. Patient however has had persistent nausea with intermittent vomiting and poor p.o. intake since that time that may be secondary to uremia. Given IV fluid resuscitation in the ED, monitor a.m. BMP and urine output. No acute dialysis needs but if patient does not want to pursue hospice care, recommend nephrology consult for further assistance with management. 3. History of rectal cancer s/p surgery and chemoradiation therapy recently complicated by small bowel obstruction s/p diverting loop jejunostomy ? See HPI for further details. Has ostomy in place with normal-appearing output at this time. No current inpatient needs for this. 4. Hyponatremia ? Sodium 124, chloride 91 on admit. Presume secondary to acute dehydration. Given IV normal saline in the ED, follow-up a.m. sodium level. 5. GERD ? Continue home PPI. DVT prophylaxis: Heparin subcu CODE STATUS: DNR CCA, DNI Expected disposition: TBD CT abdomen pelvis without con on 03/25/2025. IMPRESSION: 1. Limited noncontrast exam, without evidence of bowel obstruction or acute pancreatitis. 2. Diffuse bladder wall thickening, which may again be the result of cystitis, outlet obstruction, or neoplasm. Correlate with urinalysis and consider Urology referral. 3. Bilateral percutaneous nephrostomy tubes, without hydronephrosis. Renal ultrasound 03/25/2025 IMPRESSION: 1. There are bilateral percutaneous nephrostomy tubes coil in the renal pelvis. 2. The kidneys are otherwise unremarkable.
[2025-04-07] MEDS: Pantoprazole Sodium 40 MG Tablet PO (09:54)
[2025-04-07] MEDS: Heparin Injection (Vial) 5,000 UNIT/ML VIAL 5000 UNIT SC (09:54)
--- NOTE | 2025-04-07 09:55 | CASEMGMT ---
Addendum entered by Elizabeth Crews 04/07/25 13:21: Pt has chosen to sign with hospice. Pt to be discharged under hospice services at home. Pt reports that they declined hospice transport and son will transport. Plan: Home with hospice JEFE Donaldson Original Note: Social Work- SW collaborated with hospice nurse and provided documentation necessary for assessment. SW remains available to follow. JEFE Donaldson
--- NOTE | 2025-04-07 10:43 | PCM.CONS.R ---
Assessment & Plan Assessment/Plan (1) Acute on chronic kidney failure: (2) Hypotension: (3) Adult failure to thrive: (4) Rectal cancer: PLAN: Plan - INOCENCIA superimposed on CKD stage III with baseline creatinine seems around 1 to 1.4 mg/dL. INOCENCIA likely from significant volume depletion along with hypotension. Last admission on March 24 peak creatinine 9.18 and was 2.84 at time of hospital discharge 03/27. With IV fluids alone kidney function improved. Patient has never required any renal replacement therapy. Nephrostomy tubes in position and have been draining. For this admission creatinine 3.33 and today creatinine improved to 2.62. BP is a little better with IVFs and IVF bolus. Patient is not on any antihypertensives. No recent VICKY or ARB's or diuretics. No NSAIDs. No acute indication for renal placement therapy. Reviewed this with patient and his at bedside. Questions answered. Family meeting with hospice team today. Thank you for allowing us to participate in the care of Mr. Posada. Assessment plan reviewed with Dr. Johansen. HPI Consult Data Date of Consult: 04/07/25 HPI Narrative HPI Narrative: CARLOS POSADA, is a 59 M who presented to the emergency room with complaints of nausea vomiting, poor appetite. Admitted for failure to thrive with severe malnutrition, INOCENICA. Nephrology consulted in view of elevated creatinine. Patient is known to our group from last hospitalization when he was admitted for INOCENCIA. Patient has past medical history significant for rectal cancer, bilateral moderate-sized hydronephrosis status post nephrostomy tubes. Last hospitalization patient was seen for INOCENCIA with creatinine as high as 9 on admission and with IV fluids alone kidney function improved. Baseline creatinine around 1 to 1.4 mg/dL as of February 2025. Patient reports appetite has been poor, had vomiting before coming to hospital. No recent NSAIDs. No diuretics. Hospice team is meeting with patient and his today. [facility] Medical History (Updated 04/07/25 @ 10:47 by WENDY Ravi) Rectal cancer Nephrostomy present Iron deficiency anemia Local recurrence of rectal cancer Lesion of right lung Malignant neoplasm of rectum Hypokalemia UTI (urinary tract infection) CINV (chemotherapy-induced nausea and vomiting) Cloudy urine Bradycardia Prerenal azotemia Constipation Hypoalbuminemia Wears glasses Cancer DVT (deep venous thrombosis) Syncope Non-smoker Cataract (lens) fragments in eye following cataract surgery, bilateral Mandeep blood in stool Chronic diarrhea of unknown origin Change in bowel habit Colon cancer Home Medications ?Medication ?Instructions ?Recorded ?Last Taken ?Type ondansetron 8 mg disintegrating 8 mg PO Q8H PRN nausea and 11/22/24 Unknown Rx tablet vomiting #30 tabs pantoprazole 40 mg tablet,delayed 40 mg PO DAILY 30 days #30 tabs 03/01/25 Unknown Rx release potassium chloride 20 mEq 20 meq PO DAILY 2 weeks #14 tabs 03/01/25 Unknown Rx tablet,extended release acetaminophen 325 mg tablet 1,000 mg (3.0769 x 325 mg) PO Q8H 03/27/25 Unknown Rx PRN PRN Fever, pain 1-07/29 #0 tabs nitrofurantoin macrocrystal 100 mg 100 mg PO BID 5 days #10 caps 03/27/25 Unknown Rx capsule Allergy/AdvReac Type Severity Reaction Status Date / Time No Known Allergies Allergy Verified 04/06/25 13:56 Family History Son Cancer Father Colon cancer Mother Heart disease Hypertension Heart failure Surgical History H/O insertion of nephrostomy tube H/O hernia repair S/P colonoscopy H/O colectomy History of creation of ostomy Social History household members: spouse Smoking Status: Never smoker alcohol intake: never substance use type: does not use ROS ROS Narrative As in HPI Physical Exam Narrative Alert and oriented x 3, no apparent distress S1, S2, RRR Lungs sound clear, on room air Abdomen soft, nontender No edema Bilateral nephrostomy tubes in place with cloudy yellow urine in bags Lab / Micro Data 04/07/25 06:13 04/07/25 06:13 Labs: Laboratory Results - last 24 hr 04/06/25 15:27: WBC 6.0, RBC 3.91 L, Hgb 13.3, Hct 36.0 L, MCV 92.1, MCH 34.0 H, MCHC 36.9 H, RDW Std Deviation 46.1 H, RDW Coeff of Rosalee 13.6, Plt Count 135 L, MPV 8.8, Immature Gran % (Auto) 0.800, Neut % (Auto) 80.3 H, Lymph % (Auto) 7.4 L, [place] % (Auto) 10.0, Eos % (Auto) 1.0, Baso % (Auto) 0.5, Absolute Neuts (auto) 4.8, Absolute Lymphs (auto) 0.44 L, Nucleated RBC % 0, Sodium 124 L, Potassium 3.9, Chloride 91 L, Carbon Dioxide 18.5 L, Anion Gap 15, BUN 75 H, Creatinine 3.33 H, Estim Creat Clear Calc 13.49 L, Est GFR (MDRD) Non-Af 20 L, BUN/Creatinine Ratio 22.4 H, Glucose 107 H, Calcium 8.4 04/07/25 06:13: WBC 5.4, RBC 3.81 L, Hgb 12.7 L, Hct 35.4 L, MCV 92.9, MCH 33.3 H, MCHC 35.9, RDW Std Deviation 46.8 H, RDW Coeff of Rosalee 13.7, Plt Count 107 L, MPV 9.1, Sodium 130 L, Potassium 3.4, Chloride 96 L, Carbon Dioxide 20.3 L, Anion Gap 14, BUN 66 H, Creatinine 2.62 H, Estim Creat Clear Calc 16.67 L, Est GFR (MDRD) Non-Af 27 L, BUN/Creatinine Ratio 25.3 H, Glucose 96, Calcium 8.7
--- NOTE | 2025-04-07 12:53 | PCM.DC ---
Discharge Instructions Diet Discharge Diet: No restrictions DC O2, CPAP, BIPAP needs Home O2 Discharge instructions: No Dressing / Incision Discharge Activity: Return to Normal Activity Weight Bearing Status: Weight bearing as tolerated Dressing / Incision Call your doctor if you observe: - (home hospice) Follow Up Care When: IN 2 WEEKS Test Results: Test results from this visit will be discussed in further detail at your follow-up appointment, if applicable. Discharge Plan Admission Admit Date/Time: 04/06/25 17:31 Primary Reason for Your Visit: INOCENCIA on CKD CA rectum with wide metastasis complicated of SBO, jejunostomy, Attending Provider: Handy Royal Primary Care Provider: Juhi Mercedes Consulting Providers: Joe Pike; Tonja Butt; Laura Gay; Brittny Welsh; Kylah Gaviria NP; Christy Noriega; Kevan Helton; Tayler Johansen; Joe Pandya; Guy Ho; Rehan Rocha; Rangel Connor; Lyle Leach; Vineet David; Ebenezer Grissom; Ambrose Leija; Rubi Mercedes NP Discharge Orders/Prescriptions Prescriptions: Continued ondansetron 8 mg tablet,disintegrating 8 mg PO Q8H PRN (Reason: nausea and vomiting) Qty: 30 2RF pantoprazole 40 mg Tablet,Delayed Release (Dr/Ec) 40 mg PO DAILY 30 Days Qty: 30 0RF potassium chloride 20 mEq tablet extended release 20 meq PO DAILY 14 Days Qty: 14 0RF acetaminophen 325 mg Tablet 1,000 mg PO Q8H PRN PRN (Reason: Fever, pain 1-07/29) Qty: 0 0RF Held nitrofurantoin macrocrystal 100 mg capsule 100 mg PO BID 5 Days Qty: 10 0RF Hold Instructions: Hold creatinine clearance below 60 mL/min Rx Instructions: must administer with a meal/food Referrals / Follow Up: Guy Ho MD [Med Staff - Active Staff] - Within 1 Week Juhi Mercedes NP-C [Primary Care Provider] - Disposition Disposition (needs filled in before D/C Order can be placed): Hospice in Home
--- NOTE | 2025-04-07 12:58 | DS.PCM_ITS ---
Providers Date of Admission: 04/06/25 Date of Discharge: 04/07/25 Primary Care Physician: WENDY Alba Consultations 04/06/25 18:47 Consult: Hospice / Palliative Care Routine Consulting Provider: [facility] Reason for Consult: rectal cancer, worsening kidney disease, malnutrition and failure to thrive EMERGENT Consult: No Notified: Yes Date Notified: 04/06/25 Time Notified: 19:05 Method of Notification: Answering Service 04/07/25 09:22 Consult: Nephrology Routine Consulting Provider: Tayler Johansen Reason for Consult: INOCENCIA on CKD, Ca colon EMERGENT Consult: No MD Notified: Yes Date Notified: 04/07/25 Time Notified: 09:22 Method of Notification: Text 04/07/25 12:52 Consult: Oncology/Hematology [facility]ine [facility] Reason for Consult: End of life care, home hospice EMERGENT Consult: No Notified: Yes Date Notified: 04/07/25 Time Notified: 12:52 Method of Notification: Verbal Reason For Visit: DEHYDRATION W/WORSENING INOCENCIA ADULT FAILURE TO THRIV Diagnosis Discharge Diagnosis (1) Acute on chronic kidney failure: Status: Chronic Code(s): N17.9 - Acute kidney failure, unspecified; N18.9 - Chronic kidney disease, unspecified (2) Hypotension: Status: Acute Code(s): I95.9 - Hypotension, unspecified (3) Adult failure to thrive: Status: Acute Code(s): R62.7 - Adult failure to thrive (4) Rectal cancer: Status: Acute Code(s): C20 - Malignant neoplasm of rectum Plan Patient is a 59-year-old male who presented to [facility] ED on 04/06/2025 with persistent nausea with poor p.o. intake and dehydration. His doctor told him to go to ED because of kidney dysfunction. 1. Adult failure to thrive with severe malnutrition ? Admit under inpatient status to [facility]. PT/OT/case management consulted. Patient has BMI 13 with severe malnutrition with obvious atrophy of intervertebral and paravertebral muscles, craniofacial muscles and rib cage. Hospice consult was done and patient and her accepted for home hospice care. 2. Persistent creatinine elevation with metabolic acidosis in setting of recent severe INOCENCIA with suspected uremia ? Creatinine 3.33, BUN 75, bicarb 18 on admit. Had a recent hospitalization 2 weeks ago for severe prerenal INOCENCIA. Presented with creatinine 9.1 at that time which improved to 2.8 by discharge on 03/27. Patient however has had persistent nausea with intermittent vomiting and poor p.o. intake since that time that may be secondary to uremia. Given IV fluid resuscitation in the ED, monitor a.m. BMP and urine output. No acute dialysis needs but if patient does not want to pursue hospice care, recommend nephrology consult for further assistance with management. 04/07: Creatinine is improved with IV fluid. Creatinine was 4.26 on 03/26, 3.33 on 04/06 and today 2.62. 1 L Ringer lactate ordered over 4 hours. After that patient is being discharged 3. History of rectal cancer s/p surgery and chemoradiation therapy recently complicated by small bowel obstruction s/p diverting loop jejunostomy ? See HPI for further details. Has ostomy in place with normal-appearing output at this time. No current inpatient needs for this. 04/07: Patient is stated that he has follow-up with oncologist on next Friday but does not want to follow anymore being on hospice. They wanted to see SEBASTI[facility]N Diego oncology therefore consult requested. 4. Hyponatremia ? Sodium 124, chloride 91 on admit. Presume secondary to acute dehydration. Given IV normal saline in the ED, follow-up a.m. sodium level. 04/07: Sodium improved to 130. Potassium 3.4. 5. GERD ? Continue home PPI. DVT prophylaxis: Heparin subcu CODE STATUS: After hospice consult discussed with patient the CODE STATUS changed to DNR CC home hospice care. Discharge medication reconciliation done. Discharge follow-up instructions completed. Discharge process discussed with the patient and all questions were answered to patient's satisfaction. Follow with PCP in 1 to 2 weeks Total time spent, exact 35 minutes on discharge meds reconciliation, examination, coordination of care with nurses and ancillary staff, review of imaging and blood test and discussion with the patient on follow-up instructions. CT abdomen pelvis without con on 03/25/2025. IMPRESSION: 1. Limited noncontrast exam, without evidence of bowel obstruction or acute pancreatitis. 2. Diffuse bladder wall thickening, which may again be the result of cystitis, outlet obstruction, or neoplasm. Correlate with urinalysis and consider Urology referral. 3. Bilateral percutaneous nephrostomy tubes, without hydronephrosis. Renal ultrasound 03/25/2025 IMPRESSION: 1. There are bilateral percutaneous nephrostomy tubes coil in the renal pelvis. 2. The kidneys are otherwise unremarkable. Medications at Discharge Home Medications ondansetron 8 mg disintegrating tablet 8 mg PO Q8H PRN nausea and vomiting #30 tabs 11/22/24 pantoprazole 40 mg tablet,delayed release 40 mg PO DAILY 30 days #30 tabs 03/01/25 potassium chloride 20 mEq tablet,extended release 20 meq PO DAILY 2 weeks #14 tabs 03/01/25 acetaminophen 325 mg tablet 1,000 mg (3.0769 x 325 mg) PO Q8H PRN PRN Fever, pain -07/29 #0 tabs 03/27/25 nitrofurantoin macrocrystal 100 mg capsule 100 mg PO BID 5 days #10 caps 03/27/25 Held on 04/07/25. Instructions: Hold creatinine clearance below 60 mL/min Physical Exam Narrative Seen and examined. Patient is chronically malnutrition. Gets easily tired and dyspnea on exertion. Admitted for increased creatinine and failure to thrive. Physical exam General: Alert, Oriented x3, Cooperative, BMI 13.0 kg/m?, severe chronic malnutrition, Your body weight gradually decreasing was 108 in February 2025 HEENT: Atraumatic, PERRLA, EOMI, Normocephalic. Oral: Oral mucosa dry no Gingival or Mucosal Lesions/ Ulcerations Neck: Supple, No JVD, Negative Carotid Bruits Chest wall/Lungs: Air entry diminished in bilateral lung bases. No crepitation/rhonchi Cardiovascular: Regular rate and rhythm, Normal S1,S2, No M/G/R Abdomen: Loop jejunostomy. Draining liquid to soft BM. Mucosal stoma covered with dressing : Bilateral nephrostomy No renal angle tenderness. No suprapubic tenderness. Extremities: No edema, Capillary Refill Less than 3 Seconds Skin: No rashes, No breakdown Musculoskeletal: No Tenderness to Palpation of Joints or Extremities Neurological: Cranial nerves II-XII grossly intact, No acute focal neurological deficit. Psych/Mental Status: Flat affect Medical Records Data Medical Nutrition Assessment Dietitian: Malnutrition Criteria Met Start: 04/07/25 11:52 Freq: Status: Active Protocol: Document 04/07/25 13:25 RMA (Rec: 04/07/25 13:25 RMA [id number]) Nutrition Malnutrition Evidence of Yes Malnutrition Exists Malnutrition (severe Chronic ): Evidenced By Suboptimal Energy Intake (Severe),Weight Loss (Severe), Physical Changes (Severe) Clinical Problem Chronic Disease or Condition Related Malnutrition Etiology Severe protein-calorie malnutrition in the context of chronic disease related to inadequate oral/energy/ protein intake Signs/Symptoms as evidenced by ~22% unintentional weight loss x 6 months, BMI 13.0, visibly severe muscle wasting and fat depletion throughout, oral intake meeting less than 50 % estimated nutrition needs Status Active Problem Recommendation Dietitian Continue regular diet; will add 240mL ensure plus HP w/ Recommendations/ meals. Changes Hospice consult noted. Weight / BMI Weight Weight: 85 lb 8.63 oz Body Mass Index (BMI) 13.0 ABG / Lab / Microbiology Data 04/07/25 06:13 04/07/25 06:13 Laboratory: Laboratory Results - last 24 hr 04/06/25 15:27: WBC 6.0, RBC 3.91 L, Hgb 13.3, Hct 36.0 L, MCV 92.1, MCH 34.0 H, MCHC 36.9 H, RDW Std Deviation 46.1 H, RDW Coeff of Rosalee 13.6, Plt Count 135 L, MPV 8.8, Immature Gran % (Auto) 0.800, Neut % (Auto) 80.3 H, Lymph % (Auto) 7.4 L, [place] % (Auto) 10.0, Eos % (Auto) 1.0, Baso % (Auto) 0.5, Absolute Neuts (auto) 4.8, Absolute Lymphs (auto) 0.44 L, Nucleated RBC % 0, Sodium 124 L, Potassium 3.9, Chloride 91 L, Carbon Dioxide 18.5 L, Anion Gap 15, BUN 75 H, C reatinine 3.33 H, Estim Creat Clear Calc 13.49 L, Est GFR (MDRD) Non-Af 20 L, B UN/Creatinine Ratio 22.4 H, Glucose 107 H, Calcium 8.4 04/07/25 06:13: WBC 5.4, RBC 3.81 L, Hgb 12.7 L, Hct 35.4 L, MCV 92.9, MCH 33.3 H, MCHC 35.9, RDW Std Deviation 46.8 H, RDW Coeff of Rosalee 13.7, Plt Count 107 L, MPV 9.1, Sodium 130 L, Potassium 3.4, Chloride 96 L, Carbon Dioxide 20.3 L, Anion Gap 14, BUN 66 H, Creatinine 2.62 H, Estim Creat Clear Calc 16.67 L, Est GFR (MDRD) Non-Af 27 L, BUN/Creatinine Ratio 25.3 H, Glucose 96, Calcium 8.7 D/C Instructions Discharge Diet: No restrictions Weight Bearing Status: Weight bearing as tolerated Call your doctor if you observe: - (home hospice) DC O2, CPAP, BIPAP Needs Home O2 Discharge instructions: No When: IN 2 WEEKS Meaningful Use Info Meaningful Use Meaningful Use Diagnoses (Choose all that apply): None applicable Ischemic Stroke Statin Dosing Therapy Reference: STATIN DOSE THERAPY REFERENCE: * Patients > 75 years receive moderate or high dose statin therapy. * Patients 75 years or YOUNGER should receive HIGH intensity statin dose unless contraindicated. You will be required to document reason for non-treatment if statin daily dose does not meet guidelines. HIGH DOSE STATIN THERAPY DAILY Atorvastatin > than or = to 40 mg Rosuvastatin > than or = to 20 mg Amlodipine + Atorvastatin > than or = to 2.5/40 mg Ezetimibe + Simvastatin 10/80 mg Simvastatin 80mg Discharge Plan Admission Admit Date/Time: 04/06/25 17:31 Primary Reason for Your Visit: INOCENCIA on CKD CA rectum with wide metastasis complicated of SBO, jejunostomy, Attending Provider: Handy Royal Primary Care Provider: Juhi Mercedes Consulting Providers: Joe Pike; Tonja Butt; Laura Gay; Brittny Welsh; Kylah Gaviria [employer]; Christy Noriega; Kevan Helton; Tayler Johansen; Joe Pandya; Guy Ho; Rehan Rocha; Rangel Connor; Lyle Leach; Vineet David; Ebenezer Grissom; Ambrose Leija; Rubi Mercedes [employer] Discharge Orders/Prescriptions Prescriptions: Continued ondansetron 8 mg tablet,disintegrating 8 mg PO Q8H PRN (Reason: nausea and vomiting) Qty: 30 2RF pantoprazole 40 mg Tablet,Delayed Release (Dr/Ec) 40 mg PO DAILY 30 Days Qty: 30 0RF potassium chloride 20 mEq tablet extended release 20 meq PO DAILY 14 Days Qty: 14 0RF acetaminophen 325 mg Tablet 1,000 mg PO Q8H PRN PRN (Reason: Fever, pain -07/29) Qty: 0 0RF Held nitrofurantoin macrocrystal 100 mg capsule 100 mg PO BID 5 Days Qty: 10 0RF Hold Instructions: Hold creatinine clearance below 60 mL/min Rx Instructions: must administer with a meal/food Referrals / Follow Up: Guy Ho MD [Med Staff - Active Staff] - Within 1 Week Juhi Mercedes NP-C [Primary Care Provider] - Disposition Disposition (needs filled in before D/C Order can be placed): Hospice in Home Charges/Coding Visit Charges Inpatient E&M: 53822 Disch Hosp >30min
[2025-04-07] MEDS: 0.9% Saline Lock 10 ML Syringe IV ×2 (12:59→17:08)
[2025-04-07] MEDS: Lactated Ringers 1,000 ML 250 ML IV (13:00)
--- NOTE | 2025-04-07 13:18 | CASEMGMT ---
FERNA[facility] CM Readmission Note Previous Admission: 03/25/25-03/27/25 Diagnosis: N/V, INOCENCIA, electrolyte disturbance, hypoglycemia DC Disposition: Home Current Admission: Admitted 04/06/25 Current Diagnosis: dehydration with worsening INOCENCIA, Adult FTT Prior summary from dc summary of last hospital stay from Dr. Michel- Patient presents with intractable nausea and vomiting. Sent here and is found to be have acute kidney injury, metabolic acidosis, hyperphosphatemia. Patient received IV fluids and overall his electrolytes improved. His course was rather uncomplicated. Patient did have issues regards to leaking around his ostomy and inability to get a good seal with the ostomy. This is actually not a new issue. Pt was dc'd home with family assistance. Pt represented with abnormal labs from outside facility. Pt subsequently had a hospice consult and signed with hospice. Plan for dc home today. DC Plan: Home with hospice today
--- NOTE | 2025-04-07 15:13 | WOUNDNOTE ---
Ileostomy appliance leaking. this nurse gently removed the ostomy appliance. the peristomal skin is much improved from last week when patient was seen as an outpatient. states the appliances have been staying in place for 2-3 which is a great improvement from previous. gently cleansed the skin with warm water. pat dry. applied stoma powder and skin prep in a few layers for crusting. placed a Coloplast protective sheet around the stoma and placed a 1 piece flat Odilia appliance. pt tolerated well. states plan is discharge home this afternoon with Hospice care. pt and very appreciative of care.
[2025-04-07 15:29] VITALS: O2SAT 98
[2025-04-07 16:31] VITALS: BP 103/68; PULSE 66; RESP 16; TEMP 36.8; O2SAT 100
== END 2025-04-07 17:34 | disposition hospice, home (50) | DRG 640 ==
LOC: ED 16:55 → MS3 18:26
PROVIDERS: Admitting Provider Hospitalist; Emergency Provider Emergency Medicine; PCP Nurse Practitioner Family; Visit Provider Internal Medicine
DX: E86.0 Dehydration (principal); E43 Unspecified severe protein-calorie malnutrition; C20 Malignant neoplasm of rectum; N17.9 Acute kidney failure, unspecified; N18.4 Chronic kidney disease, stage 4 (severe); Z68.1 Body mass index [BMI] 19.9 or less, adult; E87.20 Acidosis, unspecified; R62.7 Adult failure to thrive; E86.1 Hypovolemia; E87.1 Hypo-osmolality and hyponatremia; Z51.5 Encounter for palliative care; Z93.6 Other artificial openings of urinary tract status; N18.30 Chronic kidney disease, stage 3 unspecified; I95.9 Hypotension, unspecified; K21.9 Gastro-esophageal reflux disease without esophagitis; R63.4 Abnormal weight loss; N32.89 Other specified disorders of bladder; N30.90 Cystitis, unspecified without hematuria; Z79.899 Other long term (current) drug therapy; Z93.3 Colostomy status; Z66 Do not resuscitate
CPT/HCPCS: 36415; 36591; 80048; 85025; 85027; 94668; 97802; 99285; A4216